=== PATIENT | female | born 1970 | race Caucasian/White ===

== ENCOUNTER → 2016-10-27 | Outpatient (REF) | payer OTHER ==
[~2016-10-27] MED LIST: /ADVA50050; /DULO30CA; /DULO30CA PO; /ESOM40CA; /GLIP10TAB; /INSULEV; /LINE60TA; /PANT40TA; /TAMS4CA; /ZOLP6ER; ABIL15TA; ABIL2TAB2 PO; ACTOS45 PO; ALBU17IN INH; ALBUTEROL INHALATION; ALPR1TAB3 PO; AMBI10TA; AMIT10TA2; AMIT25TA PO; AMIT25TA2; AMIT50TA PO; AMIT75TA PO; AMITRIP25 PO; AMITRIP50 PO; AMMO12CR4 TOP; ASPI1TAB PO; ASTELIN NASAL; ATEN100T PO; ATEN50TA2 PO; AVEL1TAB PO; BABY81CH; BABY81CH OR; BACITAB3 PO; BACT2CRE TOP; BACT800T5 PO; BENA20TA PO; BENA20TA2 PO; BENA25CA2 PO; BENA25TA4 PO; BENA40TA OR; BENA40TA2 PO; BETA1OI TOP; CAPSAICIN TOP; CARV25TA PO; CATAPRESS PO; CEFA1VL IV; CEFT1INJ65 IV; CEPH500C PO; CETI10TA PO; CHLO125TA PO; CLAR1TAB2 PO; CLIN300C2 PO; CLINDAMYCIN PO; COLA50CA PO; CORE12.5 PO; CORE25TA PO; COUGH SYRUP PO; COUM1TAB17 PO; COUM1TAB19 PO; COUM2.5T11 PO; COUM2TAB10 PO; CYMBALTA60 PO; DARV100T; DIAZ5TAB PO; DICL50TA2 PO; DICL50TAB PO; DICL5SOL TOP; DICY1CAP8 PO; DIFL200T PO; DILA2TAB; DIPH50CA PO; DULC5TAB PO; DULO1CAP2 PO; DULO1CAP3 PO; DULO30CA PO; ELMIRON; EPI SC; EPIP0.3I2 SC; ERYT PO; ESZO1TAB3 PO; FERR325T PO; FLOM5CAP PO; FLOMAX 0.4 PO; FLUC200T2 PO; FOCALIN XR OR; FURO1TAB15 PO; FURO20TA2 PO; FURO40TA2 PO; GARAMYCIN TOP; GEOD20CA14; GLUCOTRO10 PO; GLUCULTRA TOPICAL; HABITROL14 TOPICAL; HABITROL2 TOPICAL; HABITROL7 TOPICAL; HEPA100PFS IV; HEPA100SY IV; HEPA10IN19 IV; HUMA100I3 SC; HUMA50IN4 SC; HUMUINJ; HUMUINJ SQ; HUMULIN U; HUMULINR SC; HYDR25TA6 OR; HYDR25TAB PO; IMIT6INJ; IMIT6INJ SC; IMIT6KIT2 SC; IMMUN20IV2 IV; IMMUNOGLOBULIN IV; INSUHUMDS SC; INSULADS SC; INSULANT; INSULANT SC; INSULIN 70/30; INSULIN NPH; INSUR50VL SC; INVA1INJ IV; INVO100T PO; JANUVIA; JANUVIA100 PO; K-TA10TA PO; KEFL500C7 PO; KLON0.5T OR; KLONOPIN PO; KLOR1TAB77 PO; LAMI200T3 PO; LAMO10TA PO; LAMO200T PO; LANTUS SQ; LASI20TA; LASI20TA OR; LEVA1.25 INH; LEVA12INH INH; LEVA500T; LEVA750T PO; LEVO500T32 PO; LIDO1OIN2 TOP; LIDODERM TOPICAL; LISI20TA5; LISI5TAB; LISINOPR5 PO; LOMO2.5T PO; LOPE2TAB PO; LOPI600T; LOPID600 PO; LORTAB10 PO; LOTE1TAB PO; LOVE0.01 SC; LUNE1TAB9 PO; LUNE3TAB48 PO; LUNESTA PO; LYRI200C; LYRI300C; LYRI300C PO; LYRICA100 PO; LYRICA75 PO; MA; MACR100C3 PO; MAG-TAB; MAGIC MOUTHWASH; MAGN1TAB25 PO; MAGN400T PO; MECL-68 PO; MECL25CH PO; METH10TA2 PO; MOBIC15 PO; MONT10TA2 PO; NAPR250T2 PO; NEEDLEBB SC; NEUR100C PO; NEXIUM40 PO; NICO14DI3 TD; NICO21DI4; NIZORAL200 PO; NORT25CA2 PO; NORT50CA PO; NORT75CA2 PO; NOVOLIN N; NOVOLOG100 MG/ML; NYST100024 TOP; NYSTAT100 PO; OMEP40CA2 PO; OXYC10TA97 PO; OXYCO5TA PO; PAXI10TA; PAXI10TA2 PO; PAXI30TA; PAXI40TA; PAXI40TA OR; PERC10TA17 PO; PERC5TAB6 PO; PERC5TAB8 PO; PERCOCET PO; POTA20TA PO; POTA20TA2 OR; PRED20TAB PO; PREDNISONE DOSE PACK PO; PREG100CA; PRIL40CA; PRIL40CA PO; PROV90AE; QUET1TAB10 PO; QUET30TA PO; QUET30XR OR; RANI15TA PO; REFR0.5D8 OU; REGL5TAB2 PO; REQU4TAB3 OR; REQU4TAB3 PO; REQUIP1 PO; REQUIP2 PO; RISP4TAB33 PO; ROBA500T PO; ROZE8TAB9 PO; ROZEREM PO; SALI0.9I2 IV; SANT250O TOP; SENN8.6T76 PO; SENO8.6T10 PO; SERO1TAB2 PO; SERO400T; SERO400T OR; SERO400T3; SEROQUE200 PO; SING10TA32 PO; SKEL800T5; SLOWMAG PO; SLOWTAB; SOMA350T PO; SPACER -; SPIR25TA2 PO; SYMB80AE INH; SYMB80INH INH; TERB250T57 PO; TESS100C PO; TIGA300C; TIGAN PO; TOPA25TA10 PO; TOPI100T PO; TOPI25TA2 OR; TORS20TA2 PO; TOUJ1.2I SC; TRAM50TA2; TRAM50TA2 PO; TRAZ100T4 PO; TRAZ50TA4 PO; TRIL600T; TRIL600T PO; TYLE325T5 PO; TYLENOL #3; ULTR50TA PO; ULTRAM50 PO; VALI10TA PO; VALI5TAB PO; VALISONE TOP; VALT500T PO; VALTREX100 PO; VANC125C2 PO; VANC1INJ IV; VENTAER; VENTAER INH; VENTOLININ INHALATION; VIBR100C; VICO5TAB; VICO5TAB OR; VICTOZA SQ; WARF-58 PO; WARF4TAB52 PO; WELLTAB38 PO; WELLTAB4 PO; XANA0.5T; XANA1TAB2; XANA2TAB; XANA2TAB2; XANA2TAB2 OR; XARE20TA PO; XOPE1.252; XOPE1.252 INH; XOPENEX125 NEB; Z PACK PO; ZANA4TAB PO; ZIPR80CAP PO; ZOFR8TAB; ZOFR8TAB PO; ZYRT10TA2 PO; ZYVO100T PO; [UNRECOGNIZED DRUG - CODE] IV; [UNRECOGNIZED DRUG - CODE] SC; [UNRECOGNIZED DRUG - CODE] SC; [UNRECOGNIZED DRUG - CODE] SC; [UNRECOGNIZED DRUG - CODE] SL; [UNRECOGNIZED DRUG - OTHER]; [UNRECOGNIZED DRUG - OTHER]; [UNRECOGNIZED DRUG - OTHER]; [UNRECOGNIZED DRUG - OTHER] PO; [UNRECOGNIZED DRUG - OTHER] PO; [UNRECOGNIZED DRUG - OTHER] SC; benzapril PO; elavil; elmiron; omnicef PO; paxil; percocet
== END ==
LOC: M LAB REF 11:26
PROVIDERS: ATTEND Podiatrist
DX: E11.621 Type 2 diabetes mellitus with foot ulcer (principal); M14.672 Charcot's joint, left ankle and foot; L97.421 Non-pressure chronic ulcer of left heel and midfoot limited to breakdown of skin

== ENCOUNTER 2016-10-29 20:15 | Inpatient (IN) | payer OTHER ==
[~2016-10-29] VITALS: Ht 177.8 cm; Wt 130.4 kg
[~2016-10-29 20:15] MED LIST changes: -AMIT75TA PO; -ATEN100T PO; -CEPH500C PO; -CHLO125TA PO; -LOPE2TAB PO; +LOTE10TA11 PO; -LOTE1TAB PO; +OXYC-517 PO; -OXYCO5TA PO; -REGL5TAB2 PO; -SANT250O TOP; +SANT250O8 TOP; -TOPI100T PO; +TOPI1TAB31 PO; -TRAZ100T4 PO; +VANC10005 IV; -[UNRECOGNIZED DRUG - CODE] IV
[2016-10-29] MEDS ORDERED: HumaLOG INSULIN (NovoLOG) PER UNIT SC SCH (21:00)
[2016-10-29] MEDS: NYSTATIN 100,000 UNITS/GM TOPICAL PWD 15 GM TOP SCH (21:00)
[2016-10-29] MEDS: SYMBICORT 80/4.5MCG INHALER 6GM INH SCH (21:00)
[2016-10-29] MEDS: HUMALOG 200 UNIT/ML SQ SCH (21:00)
[2016-10-29 21:34] LABS: BASO % 0.3 % (0.0-1.0); EOS # 0.2 K/mm3 (0.0-0.50); EOS % 2.7 % (0.0-3.0); LARGE UNSTAINED CELL # 0.2 K/mm3 (0.0-0.4); LARGE UNSTAINED CELL % 3.2 % (0.0-4.0); LYMPH # 1.6 K/mm3 (1.5-4.5); LYMPH % 22.9 % (24.0-44.0); MEAN CORPUSCULAR HEMOGLOBIN 29.2 pg (27.0-33.0); MEAN CORPUSCULAR HGB CONC 34.3 g/dl (32.0-36.5); MEAN CORPUSCULAR VOLUME 85.1 fl (80.0-96.0); MONO # 0.4 K/mm3 (0.0-0.8); MONO % 5.1 % (0.0-5.0); NEUTROPHILS # 4.7 K/mm3 (1.8-7.7); NEUTROPHILS % 65.8 % (36.0-66.0); PLATELET COUNT, AUTOMATED 206 k/mm3 (150-450); RED CELL DISTRIBUTION WIDTH 14.1 % (11.5-14.5); WHITE BLOOD COUNT 7.1 K/mm3 (4.0-10.0)
[2016-10-29 21:35] LABS: INR 1.32
[2016-10-29] MEDS ORDERED: HumuLIN R (REGULAR) INSULIN (NovoLIN R) **100U/ML** PER UNIT As Ordered ONE (21:41)
[2016-10-29 21:42] LABS: CALCIUM LEVEL 8.5 MG/DL (8.5-10.1); CREATININE FOR GFR 1.1 MG/DL (0.55-1.02); GLOMERULAR FILTRATION RATE 56.7 (>58); POTASSIUM SERUM 4.2 MEQ/L (3.5-5.1)
[2016-10-29] MEDS ORDERED: HYDROmorphone HCL 1 MG/ML SYRINGE (J1170) As Ordered ONE (21:42)
[2016-10-29] MEDS ORDERED: cefoTEtan DISODIUM 2 GM in D5W MINI-BAG PLUS 100 ML IV SCH (22:15)
--- NOTE | 2016-10-29 22:30 | REPUSA ---
Clinical history: Pain, swelling. Findings: The left common femoral, superficial femoral, popliteal, and other deep venous structures c ompress normally and demonstrate normal color Doppler flow. Normal venous waveforms with augmentation are seen. There is a large left inguinal lymph node measuring up to 4.2 x 4.4 x 1.2 cm in diameter, of uncertain clinical significance. Impression: No evidence of deep vein thrombosis in the left femoral popliteal venous system.
[2016-10-29] MEDS ORDERED: CHLO125TA PO (22:42)
[2016-10-29] MEDS ORDERED: CEPH500C PO (22:42)
[2016-10-29] MEDS ORDERED: REGL5TAB2 PO (22:42)
[2016-10-29] MEDS ORDERED: LOPE2TAB PO (22:42)
[2016-10-29] MEDS ORDERED: TRAZ100T4 PO (22:42)
[2016-10-29] MEDS ORDERED: AMIT75TA PO (22:42)
[2016-10-29] MEDS ORDERED: ATEN100T PO (22:42)
[2016-10-29] MEDS ORDERED: ALBUTEROL SULFATE 2.5 MG/0.5 ML INH NEB SOLN NEB PRN (22:45)
[2016-10-29] MEDS ORDERED: LOPERAMIDE 2 MG CAP PO PRN (22:45)
[2016-10-29] MEDS ORDERED: ALPRAZolam 0.5 MG TAB PO PRN (22:45)
[2016-10-29] MEDS ORDERED: GLUCOSE 4 GM CHEW TABLET PO PRN (22:45)
[2016-10-29] MEDS ORDERED: BISACODYL 5 MG TAB PO PRN (22:45)
[2016-10-29] MEDS ORDERED: GLUCAGON FOR INJ 1 MG VIAL (J1610) SC PRN (22:45)
[2016-10-29] MEDS ORDERED: DEXTROSE 50% 50 ML SYRINGE IV PRN (22:45)
[2016-10-30] MEDS ORDERED: oxyCODONE 5MG TAB PO PRN (00:15)
[2016-10-30] MEDS ORDERED: KETOROLAC 30 MG/ML VIAL (J1885) IV PRN (00:15)
[2016-10-30] MEDS ORDERED: oxyCODONE 5MG TAB As Ordered ONE (00:32)
[2016-10-30 00:45] VITALS: BP 172/81
--- NOTE | 2016-10-30 00:49 | EDDOCDS ---
Physician Documentation [facility] Name: Rbeeca Soliz Age: 46 yrs Sex: Female : 1970 Arrival Date: 10/29/2016 Time: 20:15 Bed 9 Private MD: Zion Pastrana D Disposition: 10/29/16 21:58 Hospitalization ordered by Ashwini Acevedo for Inpatient Admission. Preliminary diagnosis are Cellulitis of left lower limb, Hyperglycemia, unspecified. - Bed requested for 4 [place]. - Status is Inpatient Admission. jp6 - Condition is Stable. - Problem is an ongoing problem. - Symptoms are unchanged. Historical: - Allergies: Glucophage (Vomit); Latex (Anaphylaxis); PENICILLINS (Anaphylaxis); Pineapple; SULFA (SULFONAMIDES) (Rash); Tricor (Vomit); - Home Meds: 1. albuterol sulfate 90 mcg/actuation Inhl HFAA 2 puffs as needed 2. amitriptyline 50 mg Oral tab HS 3. Reglan 5 mg Oral tab TID AC 4. loperamide 2 mg Oral cap every 4 hours 5. atenolol 50 mg Oral tab 1 tab 2 times per day 6. benazepril 40 mg oral tab 1 tab once daily 7. Chlorthalidone 12.5 Oral once daily 8. Coumadin 1.5 Oral tab 1 tab once daily 9. Cymbalta 60 mg Oral cpDR 1 cap am and 30 mg at HS 10. epipen .3 mg as needed 11. Humalog 200 sliding scale before meals 50 at meals 12. Lasix 40 mg Oral tab twice daily as needed 13. Lunesta 3 mg Oral tab 1 tab once daily 14. Lyrica 300MG Oral 1 cap 2 times per day 15. nystatin 100,000 unit/gram Topical powd 100,000 unit/g 3 times per day 16. omeprazole 40 mg Oral cpDR 1 cap 2 times per day 17. potassium chloride 20 mEq Oral TbTQ 1 tab 2 times per day 18. Requip 4 mg Oral tab 1 tab HS 19. Seroquel 600 mg Oral HS 20. spironolactone 25 mg Oral tab 1 tab once daily 21. symbicort 80/4.5mcg twice a day 22. Toujeo SoloStar 125 in am. 100 at hs subcutaneous 23. Triliptal 400mg BID 24. Xanax 1 mg Oral tab 1 tab QID prn 25. Xopenex 1.25 mg/3 mL Inhl nebu 3 mL every 6 hours 26. Zantac 150 mg Oral tab 1 tab once daily - PMHx: 2 Blood clots in left upper arm while PICC line was in; Abdominal Adhesions; Anxiety; Arthritis; Asthma; Bilateral TMJ; Bipolar disorder; Bulging Disc Thoracic-Lumbar; cellulitis; Common Variable Immune Deficiency; DDD; Diabetes - IDDM: controlled; DVT; Endometriosis; Fibromyalgia; GERD; Herniated Vertebral Discs; Hiatal Hernia; Hypertension; insomnia; Migraines; MRSA; OCD; pleural effusions; Psoriasis; Seasonal Allergies; Skin Neuritis; Spina Bifida Aculta; Temporal Lobe Seizures; ventricular hypertrophy; - PSHx: Cholecystectomy; Appendectomy; Hysterectomy; cervical c5-6 fusion; bilateral TMJ surgery; - Social history: No barriers to communication noted, The patient speaks fluent Chinese, Speaks appropriately for age, Smoking status: Patient states former smoker of tobacco. - Family history: Not pertinent. - : The pt / caregiver states he / she is on anticoagulants: coumadin. Home medication list is obtained from the patient. - Exposure Risk Screening:: None identified. MANAGER CORE: 10/29 20:24 LMP N/A - Hysterectomy jo3 Vital Signs: 20:17 BP 204 / 109; Pulse 122; Resp 18 S; Temp 97.5; Pulse Ox 96% on R/A; Weight 122.47 kg / dd6 270 lbs (R); Height 5 ft. 10 in. (177.80 cm) (R); 23:10 BP 148 / 81; Pulse 93; Resp 18; Temp 99.4; Pulse Ox 98% on R/A; Pain 7/10; jp6 10/30 00:36 BP 142 / 81; Pulse 92; Resp 16; Pulse Ox 99% on R/A; Pain 6/10; jp6 10/29 20:17 Body Mass Index 38.74 (122.47 kg, 177.80 cm) dd6 MDM: 10/29 21:17 Fingerstick Blood Sugar Ordered. EDMS 21:25 -Blood Culture (Adults Only), peripheral from different site, or from device/port/PICC cs11 etc. if present ordered. 21:25 IV Saline Lock ordered. cs11 21:25 Dilaudid - HYDROmorphone 0.5 mg IVP once ordered. cs11 21:25 CBC with Diff Ordered. EDMS 21:25 MED Profile Ordered. EDMS 21:25 Pt & Aptt Ordered. EDMS 21:26 -Blood Culture Ordered. EDMS 21:26 Ultrasound LE Unilateral R/O DVT Ordered. EDMS 21:27 Financial registration complete. zo 21:28 [facility] [place] Payment Agreement was scanned into [employer] and attached to record. zo 21:29 -Blood Culture (Adults Only), peripheral from different site, or from device/port/PICC tmm1 etc. if present complete. 21:29 BLOOD CULTURES Ordered. EDMS 21:33 cefoTEtan 2 grams IVPB once over 30 mins; dilute in NS or D5W ordered. cs11 21:34 Fingerstick Blood Sugar Reviewed. cs11 21:35 Insulin Regular Human 20 units IVP once ordered. cs11 21:35 Accucheck ordered. cs11 22:00 BED REQUEST+ADM ordered. EDMS 22:12 CBC with Diff Reviewed. cs11 22:12 MED Profile Reviewed. cs11 22:12 Pt & Aptt Reviewed. cs11 22:25 Fingerstick Blood Sugar Ordered. EDMS 22:44 C REACTIVE PROTEIN QUANTITATIV Ordered. EDMS 22:44 CBC WITH DIFFERENTIAL Ordered. EDMS 22:44 BASIC METABOLIC PROFILE Ordered. EDMS 22:47 Admission / Observation Status ordered. EDMS 22:47 CONSISTENT CARBOHYDRATES ordered. EDMS 22:58 Fingerstick Blood Sugar Ordered. EDMS 23:23 PROTHROMBIN TIME PROFILE\E\INR Ordered. EDMS 10/30 00:48 oxyCODONE 5 mg PO once ordered. jp6 Point of Care Testing: Blood Glucose: 10/29 20:45 Blood Glucose: 525 mg/dL; jp6 22:20 Blood Glucose: 382 mg/dL; jp6 Ranges: Administered Medications: 22:00 Drug: Insulin Regular Human 20 units [insulin regular human 100 unit/mL injection jp6 solution (0.2 mL)] {Co-Signature: ines2 (Lillie Nolasco RN).} Route: IVP; Site: right upper arm; 22:02 Drug: Dilaudid - HYDROmorphone 0.5 mg [hydromorphone 1 mg/mL injection syringe (0.5 jp6 mL)] Route: IVP; Site: right upper arm; 22:28 Drug: cefoTEtan 2 grams [cefotetan 2 gram solution for injection] Route: IVPB; Infused jp6 Over: 30 mins; Site: right upper arm; 10/30 00:48 Drug: oxyCODONE 5 mg [oxycodone 5 mg tablet (1 tabs)] Route: PO; jp6 Signatures: Dispatcher [employer] Debbie Jeffrey RN RN Marguerite SanchezRN RN jo3 Fransisco Roa Craig, DO DO cs11 McLear, Isa, ELEVATOR SERVICE MECHANIC ELEVATOR SERVICE MECHANIC tmm1 Park Ramírez RN RN jp6 Lillie Nolasco RN kas2 The chart was reviewed and I authenticate all verbal orders and agree with the evaluation and treatment provided.Attachments: 10/29 21:28 [facility] Payment Agreement zo MTDD
--- NOTE | 2016-10-30 00:49 | EDDOCDS ---
Nurse's Notes [facility] Name: Rebeca Soliz Age: 46 yrs Sex: Female : 1970 Arrival Date: 10/29/2016 Time: 20:15 Bed 9 Private MD: Zion Pastrana D Diagnosis: Cellulitis of left lower limb;Hyperglycemia, unspecified Presentation: 10/29 20:19 Presenting complaint: Patient states: Has a diabetic ulcer on left foot. Been on low jo3 dose antibiotics (Keflex) for 3 days. Now is getting cellulitis around the area with some swelling. Adult Sepsis Screening: The patient does not have new or worsening altered mentation. Patient's respiratory rate is less than 22. Systolic blood pressure is greater than 100. Patient has a qSOFA score of 0- Negative Sepsis Screen. Suicide/Homicide risk assessment- the patient denies having any suicidal and/or homicidal ideations and does not present with any other emotional, behavioral or mental health complaints. 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 Transition of care: patient was not received from another setting of care. 20:19 Acuity: CINDY Level 3 jo3 20:19 Method Of Arrival: Walkin/Carried/Asstd jo3 Triage Assessment: 20:24 General: Appears in no apparent distress. HIV screening NA for this visit Offered jo3 previously. Neurological: Level of Consciousness is awake, alert, Oriented to person, place, time. Respiratory: Airway is patent Respiratory effort is even, unlabored. Derm: Skin is pink, warm & dry. 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 albuterol sulfate 90 mcg/actuation Inhl HFAA 2 puffs as needed 2. amitriptyline 50 mg Oral tab HS 3. Reglan 5 mg Oral tab TID AC 4. loperamide 2 mg Oral cap every 4 hours 5. atenolol 50 mg Oral tab 1 tab 2 times per day 6. benazepril 40 mg oral tab 1 tab once daily 7. Chlorthalidone 12.5 Oral once daily 8. Coumadin 1.5 Oral tab 1 tab once daily 9. Cymbalta 60 mg Oral cpDR 1 cap am and 30 mg at HS 10. epipen .3 mg as needed 11. Humalog 200 sliding scale before meals 50 at meals 12. Lasix 40 mg Oral tab twice daily as needed 13. Lunesta 3 mg Oral tab 1 tab once daily 14. Lyrica 300MG Oral 1 cap 2 times per day 15. nystatin 100,000 unit/gram Topical powd 100,000 unit/g 3 times per day 16. omeprazole 40 mg Oral cpDR 1 cap 2 times per day 17. potassium chloride 20 mEq Oral TbTQ 1 tab 2 times per day 18. Requip 4 mg Oral tab 1 tab HS 19. Seroquel 600 mg Oral HS 20. spironolactone 25 mg Oral tab 1 tab once daily 21. symbicort 80/4.5mcg twice a day 22. Toujeo SoloStar 125 in am. 100 at hs subcutaneous 23. Triliptal 400mg BID 24. Xanax 1 mg Oral tab 1 tab QID prn 25. Xopenex 1.25 mg/3 mL Inhl nebu 3 mL every 6 hours 26. Zantac 150 mg Oral tab 1 tab once daily - PMHx: 2 Blood clots in left upper arm while PICC line was in; Abdominal Adhesions; Anxiety; Arthritis; Asthma; Bilateral TMJ; Bipolar disorder; Bulging Disc Thoracic-Lumbar; cellulitis; Common Variable Immune Deficiency; DDD; Diabetes - IDDM: controlled; DVT; Endometriosis; Fibromyalgia; GERD; Herniated Vertebral Discs; Hiatal Hernia; Hypertension; insomnia; Migraines; MRSA; OCD; pleural effusions; Psoriasis; Seasonal Allergies; Skin Neuritis; Spina Bifida Aculta; Temporal Lobe Seizures; ventricular hypertrophy; - PSHx: Cholecystectomy; Appendectomy; Hysterectomy; cervical c5-6 fusion; bilateral TMJ surgery; - Social history: No barriers to communication noted, The patient speaks fluent Luxembourgish, Speaks appropriately for age, Smoking status: Patient states former smoker of tobacco. - Family history: Not pertinent. - : The pt / caregiver states he / she is on anticoagulants: coumadin. Home medication list is obtained from the patient. - Exposure Risk Screening:: None identified. Screenin:30 Screening information is obtained from the patient. Fall risk: At risk due to jp6 neuropathy. Assistance ADL's: requires no assistance with activities of daily living. Abuse/DV Screen: The patient / caregiver reports he/she is: not in a situation that causes fear, pain or injury. Nutritional screening: No deficits noted. Advance Directives: Currently, there is a health care proxy, . There is no active DNR order. There is no living will. home support is adequate. Assessment: 20:30 General: Appears obese, uncomfortable, Behavior is appropriate for age, cooperative, jp6 pleasant. Pain: Location: left foot Pain currently is 6 out of 10 on a pain scale. Pain radiates to left leg Quality of pain is described as burning, aching, crampy. Neurological: Tingling in right foot and left foot. EENT: No deficits noted. Cardiovascular: No deficits noted. Heart tones S1 S2 present. Respiratory: No deficits noted. Airway is patent Respiratory effort is even, unlabored, Respiratory pattern is regular, symmetrical, Breath sounds are clear bilaterally. GI: No deficits noted. Abdomen is distended, obese. : No deficits noted. Derm: Skin has blisters on open old blister left bottom of foot-redness surrounding w/ red streak going up left leg. Swelling noted in foot and up left leg. Musculoskeletal: No deficits noted. 21:30 Reassessment: Patient appears in no apparent distress at this time. General: Appears jp6 uncomfortable, Behavior is appropriate for age, cooperative. Neurological: Level of Consciousness is awake, alert. Respiratory: Airway is patent Respiratory effort is even, Respiratory pattern is regular, symmetrical. Musculoskeletal: No deficits noted. 22:23 Reassessment: Patient appears in no apparent distress at this time. Neurological: Level jp6 of Consciousness is awake, alert, Oriented to person, place, time. Respiratory: Airway is patent Respiratory effort is even, unlabored, Respiratory pattern is regular, symmetrical. Derm: Skin Skin is pink, warm & dry. 23:10 Reassessment: Patient appears in no apparent distress at this time. General: Appears jp6 comfortable. Neurological: Level of Consciousness is awake, alert. Respiratory: Airway is patent Respiratory effort is even, unlabored, Respiratory pattern is regular, symmetrical. Musculoskeletal: Reports pain in left foot and left leg. 10/30 00:09 Reassessment: Patient appears in no apparent distress at this time. Patient states jp6 symptoms have not improved. General: Behavior is appropriate for age, cooperative. Pain: Location: left foot Pain currently is 7 out of 10 on a pain scale. Neurological: Level of Consciousness is awake, alert, Oriented to person, place, time. Musculoskeletal: Reports Pain is 7 out of 10 on a pain scale. no order for pain medication-call in to hospitalist for order. Vital Signs: 10/29 20:17 BP 204 / 109; Pulse 122; Resp 18 S; Temp 97.5; Pulse Ox 96% on R/A; Weight 122.47 kg dd6 (R); Height 5 ft. 10 in. (177.80 cm) (R); 23:10 BP 148 / 81; Pulse 93; Resp 18; Temp 99.4; Pulse Ox 98% on R/A; Pain 7/10; jp6 10/30 00:36 BP 142 / 81; Pulse 92; Resp 16; Pulse Ox 99% on R/A; Pain 6/10; jp6 10/29 20:17 Body Mass Index 38.74 (122.47 kg, 177.80 cm) dd6 Vitals: 10/29 20:17 Log In Time: October 29, 2016 at 20:15. dd6 ED Course: 20:17 Patient visited by Milad Lucio PCA. dd6 20:17 Zion Pastrana is Private Physician. dd6 20:17 Patient moved to Waiting dd6 20:18 Patient moved to Pre RCE dd6 20:21 Triage Initiated jo3 20:26 Patient visited by Marguerite Jeter,QI. jo3 20:28 Jakob Contreras, RN is Primary Nurse. jo3 20:28 Patient moved to 9 jo3 20:29 Patient visited by Lillie Nolasco RN. kas2 20:30 The patient / caregiver is instructed regarding the plan of care and ED course. jp6 20:30 Inserted saline lock: 20 gauge in right upper arm. No procedures done that require jp6 assistance. 20:32 Primary Nurse role handed off by Jakob Contreras, RN jp6 20:32 Park Ramírez,QI is Primary Nurse. jp6 20:44 Jose Eduardo Hernandez DO is Attending Physician. cs11 20:44 Patient visited by Jose Eduardo Hernandez DO. cs11 21:28 [facility] [place] Payment Agreement was scanned into [employer] and attached to record. zo 21:42 BLOOD CULTURES Sent. kas2 21:45 Patient visited by Lillie Nolasco RN. kas2 21:45 Labs drawn. (by ED staff). Sent per order to lab. kas2 21:58 Ashwini Acevedo is Hospitalizing Provider. cs11 23:00 Ultrasound LE Unilateral R/O DVT Returned. EDMS Administered Medications: 22:00 Drug: Insulin Regular Human 20 units [insulin regular human 100 unit/mL injection jp6 solution (0.2 mL)] {Co-Signature: ines2 (Lillie Nolasco RN).} Route: IVP; Site: right upper arm; 22:02 Drug: Dilaudid - HYDROmorphone 0.5 mg [hydromorphone 1 mg/mL injection syringe (0.5 jp6 mL)] Route: IVP; Site: right upper arm; 22:28 Drug: cefoTEtan 2 grams [cefotetan 2 gram solution for injection] Route: IVPB; Infused jp6 Over: 30 mins; Site: right upper arm; 10/30 00:48 Drug: oxyCODONE 5 mg [oxycodone 5 mg tablet (1 tabs)] Route: PO; jp6 Point of Care Testing: Blood Glucose: 10/29 20:45 Blood Glucose: 525 mg/dL; jp6 22:20 Blood Glucose: 382 mg/dL; jp6 Ranges: Order Results: Lab Order: Fingerstick Blood Sugar; SPEC'M 10/29/16 21:08 Test: BEDSIDE GLUCOSE; Value: 520; Range: 70-105; Abnormal: Above upper panic limits; Units: MG/DL; Status: F Test Note: ; RN Notified Lab Order: CBC with Diff; SPEC'M 10/29/16 21:05 Test: WHITE BLOOD COUNT; Value: 7.1; Range: 4.0-10.0; Units: K/mm3; Status: F Test: RED BLOOD COUNT; Value: 4.18; Range: 4.00-5.40; Units: M/mm3; Status: F Test: HEMOGLOBIN; Value: 12.2; Range: 12.0-16.0; Units: g/dl; Status: F Test: HEMATOCRIT; Value: 35.6; Range: 36.0-47.0; Abnormal: Below low normal; Units: %; Status: F Test: MEAN CORPUSCULAR VOLUME; Value: 85.1; Range: 80.0-96.0; Units: fl; Status: F Test: MEAN CORPUSCULAR HEMOGLOBIN; Value: 29.2; Range: 27.0-33.0; Units: pg; Status: F Test: MEAN CORPUSCULAR HGB CONC; Value: 34.3; Range: 32.0-36.5; Units: g/dl; Status: F Test: RED CELL DISTRIBUTION WIDTH; Value: 14.1; Range: 11.5-14.5; Units: %; Status: F Test: PLATELET COUNT, AUTOMATED; Value: 206; Range: 150-450; Units: k/mm3; Status: F Test: NEUTROPHILS %; Value: 65.8; Range: 36.0-66.0; Units: %; Status: F Test: LYMPH %; Value: 22.9; Range: 24.0-44.0; Abnormal: Below low normal; Units: %; Status: F Test: MONO %; Value: 5.1; Range: 0.0-5.0; Abnormal: Above high normal; Units: %; Status: F Test: EOS %; Value: 2.7; Range: 0.0-3.0; Units: %; Status: F Test: BASO %; Value: 0.3; Range: 0.0-1.0; Units: %; Status: F Test: LARGE UNSTAINED CELL %; Value: 3.2; Range: 0.0-4.0; Units: %; Status: F Test: NEUTROPHILS #; Value: 4.7; Range: 1.8-7.7; Units: K/mm3; Status: F Test: LYMPH #; Value: 1.6; Range: 1.5-4.5; Units: K/mm3; Status: F Test: MONO #; Value: 0.4; Range: 0.0-0.8; Units: K/mm3; Status: F Test: EOS #; Value: 0.2; Range: 0.0-0.50; Units: K/mm3; Status: F Test: BASO #; Value: 0.0; Range: 0.0-0.2; Units: K/mm3; Status: F Test: LARGE UNSTAINED CELL #; Value: 0.2; Range: 0.0-0.4; Units: K/mm3; Status: F Lab Order: MED Profile; SPEC'M 10/29/16 21:05 Test: GLUCOSE, FASTING; Value: 565; Range: 70-105; Abnormal: Above upper panic limits; Units: MG/DL; Status: F Test: BLOOD UREA NITROGEN; Value: 12; Range: 7-18; Units: MG/DL; Status: F Test: CREATININE FOR GFR; Value: 1.10; Range: 0.55-1.02; Abnormal: Above high normal; Units: MG/DL; Status: F Test: GLOMERULAR FILTRATION RATE; Value: 56.7; Range: >58; Abnormal: Below low normal; Status: F Test: SODIUM LEVEL; Value: 133; Range: 136-145; Abnormal: Below low normal; Units: MEQ/L; Status: F Test: POTASSIUM SERUM; Value: 4.2; Range: 3.5-5.1; Units: MEQ/L; Status: F Test: CHLORIDE LEVEL; Value: 95; Range: 98-107; Abnormal: Below low normal; Units: MEQ/L; Status: F Test: CARBON DIOXIDE LEVEL; Value: 31; Range: 21-32; Units: MEQ/L; Status: F Test: ANION GAP; Value: 7; Range: 8-16; Abnormal: Below low normal; Units: MEQ/L; Status: F Test: CALCIUM LEVEL; Value: 8.5; Range: 8.5-10.1; Units: MG/DL; Status: F Test Note: ; Units are mL/min/1.73 m2 Chronic Kidney Disease Staging per NKF: Stage I & II GFR >=60 Normal to Mildly Decreased Stage III GFR 30-59 Moderately Decreased Stage IV GFR 15-29 Severely Decreased Stage V GFR <15 Very Little GFR Left ESRD GFR <15 on TRAFFIC PERSONNEL SUPERVISOR Lab Order: Pt & Aptt; SPEC'M 10/29/16 21:05 Test: PROTHROMBIN TIME; Value: 16.5; Range: 12.3-14.5; Abnormal: Above high normal; Units: SECONDS; Status: F Test: INR; Value: 1.32; Status: F Test: PARTIAL THROMBOPLASTIN TIME; Value: 33.9; Range: 26.6-37.1; Units: SECONDS; Status: F Test Note: ; THERAPUTIC HUMAN INR VALUES INDICATIONS NORMAL RANGES PROPHYLAXIS/TREATMENT OF: VENOUS THROMBOSIS 2.0-3.0 PULMONARY EMBOLISM 2.0-3.0 PREVENTION OF SYSTEMIC EMBOLISM FROM: TISSUE HEART VALVES 2.0-3.0 ACUTE MYOCARDIAL INFARCTION 2.0-3.0 VALVULAR HEART DISEASE 2.0-3.0 ATRIAL FIBRILLATION 2.0-3.0 MECHANICAL VALVES(HIGH RISK) 2.5-3.5 RECURRENT MYOCARDIAL INFARCTION 2.5-3.5 Lab Order: Fingerstick Blood Sugar; SPEC'10/29/16 22:18 Test: BEDSIDE GLUCOSE; Value: 382; Range: 70-105; Abnormal: Above high normal; Units: MG/DL; Status: F Test Note: ; RN Notified Lab Order: Fingerstick Blood Sugar; SPEC'10/29/16 22:50 Test: BEDSIDE GLUCOSE; Value: 248; Range: 70-105; Abnormal: Above high normal; Units: MG/DL; Status: F Test Note: ; RN Notified Radiology Order: Ultrasound LE Unilateral R/O DVT Test: Ultrasound LE Unilateral R/O DVT REASON FOR EXAMINATION: Deformity/Swelling; ; Clinical history: Pain, swelling.; Findings: The left common femoral, superficial femoral, popliteal, and other deep venous structures c; ompress normally and demonstrate normal color Doppler flow. Normal venous waveforms with augmentation; are seen. There is a large left inguinal lymph node measuring up to 4.2 x 4.4 x 1.2 cm in diameter,; of uncertain clinical significance.; Impression:; No evidence of deep vein thrombosis in the left femoral popliteal venous system.; ; Outcome: 21:58 Decision to Hospitalize by Provider. cs11 23:42 Discharge Assessment: Patient awake, alert and oriented x 3. No cognitive and/or jp6 functional deficits noted. Patient verbalized understanding of disposition instructions. patient administered narcotics - yes. Patient was admitted to the hospital or transferred to another facility. The following High Risk Discharge criteria are identified: None. Admitted to Med/Surg accompanied by tech, via stretcher, with chart. Condition: unchanged. Ultrasound Study completed. Admission hand-off: Report Faxed Fax receipt verified by 4 marlen. Property :Personal belongings accompany Pt. 10/30 00:48 Patient left the ED. jp6 Signatures: Dispatcher [employer] EDMS Marguerite Jeter,RN RN jo3 Fransisco Roa Daniell, AVA POLICY WRITER dd6 Jose Eduardo Hernandez, DO cs11 Lillie Nolasco RN RN kas2 Park Ramírez RN RN jp6 Lillie chacon2 MTDD
[2016-10-30] MEDS ORDERED: WARFARIN SOD 5 MG TAB PO SCH (01:00)
[2016-10-30] MEDS: PREGABALIN 100 MG CAP (LYRICA) PO SCH ×3 (01:58→21:50)
[2016-10-30] MEDS: rOPINIRole 1MG TAB PO SCH ×2 (01:58→22:25)
[2016-10-30] MEDS: AMITRIPTYLINE 25 MG TAB PO SCH ×2 (01:59→21:51)
[2016-10-30] MEDS: MONTELUKAST 10 MG TAB PO SCH ×2 (01:59→21:50)
[2016-10-30] MEDS: OMEPRAZOLE 20 MG CAP PO SCH ×3 (01:59→21:51)
[2016-10-30] MEDS: DULoxetine 30 MG CAP (CYMBALTA) PO SCH ×3 (01:59→21:51)
[2016-10-30] MEDS: ATENOLOL 50 MG TAB PO SCH ×3 (02:00→21:00)
[2016-10-30] MEDS: traZODone 100 MG TAB PO SCH ×2 (02:00→21:50)
[2016-10-30] MEDS: FAMOTIDINE 20 MG TAB PO SCH ×2 (02:00→21:51)
[2016-10-30] MEDS: OXcarbazepine 300 MG TAB PO SCH ×2 (02:01→21:50)
[2016-10-30] MEDS: QUEtiapine FUMARATE 200 MG TAB PO SCH ×2 (02:01→21:50)
[2016-10-30 03:30] VITALS: BP 106/56
[2016-10-30 06:00] VITALS: BP 104/64
[2016-10-30 06:50] LABS: BASO % 0.2 % (0.0-1.0); EOS # 0.1 K/mm3 (0.0-0.50); EOS % 2.2 % (0.0-3.0); LARGE UNSTAINED CELL # 0.1 K/mm3 (0.0-0.4); LARGE UNSTAINED CELL % 2.2 % (0.0-4.0); LYMPH # 1.3 K/mm3 (1.5-4.5); LYMPH % 20.7 % (24.0-44.0); MEAN CORPUSCULAR HEMOGLOBIN 29.6 pg (27.0-33.0); MEAN CORPUSCULAR HGB CONC 35.4 g/dl (32.0-36.5); MEAN CORPUSCULAR VOLUME 83.5 fl (80.0-96.0); MONO # 0.3 K/mm3 (0.0-0.8); MONO % 5.4 % (0.0-5.0); NEUTROPHILS # 4.2 K/mm3 (1.8-7.7); NEUTROPHILS % 69.3 % (36.0-66.0); PLATELET COUNT, AUTOMATED 199 k/mm3 (150-450); RED CELL DISTRIBUTION WIDTH 14.2 % (11.5-14.5)
[2016-10-30 07:00] LABS: INR 1.35
[2016-10-30 07:16] LABS: CALCIUM LEVEL 8.2 MG/DL (8.5-10.1); CREATININE FOR GFR 1.45 MG/DL (0.55-1.02); GLOMERULAR FILTRATION RATE 41.2 (>58); POTASSIUM SERUM 3.8 MEQ/L (3.5-5.1)
[2016-10-30] MEDS ORDERED: HumaLOG INSULIN (NovoLOG) PER UNIT SC SCH (07:30)
[2016-10-30 08:00] VITALS: BP 117/70
[2016-10-30] MEDS: IPRATROPIUM 0.5MG/ALBUTEROL 2.5MG INH SOL UD 3ML (DUONEB)(J7620) NEB SCH ×4 (08:00→23:11)
[2016-10-30] MEDS: METOCLOPRAMIDE 5 MG TAB PO SCH ×3 (08:33→21:50)
[2016-10-30] MEDS: cefoTEtan DISODIUM 1 GM in D5W MINI-BAG PLUS 50 ML IV SCH ×2 (08:33→21:52)
[2016-10-30] MEDS: SENOKOT S TAB PO SCH ×2 (08:33→21:51)
[2016-10-30] MEDS: HUMALOG 200 UNIT/ML SQ SCH ×3 (08:35→17:57)
--- NOTE | 2016-10-30 08:37 | HPE ---
DATE OF ADMISSION: 10/29/2016 PRIMARY CARE PROVIDER: Dr. Zion Pastrana CHIEF COMPLAINT: Increasing pain, redness and swelling of the left foot and leg, increasing size of the ulcer at the bottom of the left foot. One episode of temperature 101 two days ago. PAST MEDICAL HISTORY: Diabetes. Hypertension. Dyslipidemia. History of deep vein thrombosis (DVT), on Coumadin. Morbid obesity. Asthma. Chronic obstructive pulmonary disease (COPD). Obstructive sleep apnea (PA), does not use continuous positive airway pressure (CPAP). Diabetic neuropathy. Restless leg syndrome. Gastroesophageal reflux disease (GERD). Possible Crohn's disease, still being worked up. Fibromyalgia. Charcot signs of the foot. Lumbar spondylosis and central canal stenosis. Bipolar disorder. Obsessive-compulsive disorder. Agoraphobia. Anxiety. Spina bifida occulta. Psoriasis. Temporal lobe seizures. Hiatal hernia. Fatty liver. Factor V Leiden with history of DVT, on Coumadin. HISTORY OF THE PRESENT ILLNESS: This is a 46-year-old poorly controlled diabetic lady with a diabetic neuropathy, Charcot's joints, who was being changed from one orthopedic boot to a different kind and developed a blister on the plantar aspect of the left foot about 9 days ago after she wore the new kind of fitted boot and the roof of the blister had spontaneously burst open. The patient was seen by the patient's net developer software engineer c 2 days ago and antibiotic was prescribed. The patient has been taking Keflex at home. The patient also had a bout of temperature of 101 two days ago after that which resolved with Tylenol and no further episodes of fever. Comes in today because of increasing left foot redness, swelling and pain with redness extending up the leg, up to almost the middle of the leg. The patient called her net developer software engineer c and was instructed to come to the emergency room. In the emergency department (ED), the patient was found to have diabetic foot ulcer and cellulitis. The patient was started on cefotetan. The patient had an ultrasound of the lower extremity done, which did not show any DVT but did show a large inguinal lymph node 4 cm x 4.4 cm x 1.2 cm in the left inguinal region. The patient is being admitted for a diabetic foot ulcer, cellulitis. PAST SURGICAL HISTORY: Cholecystectomy in 1995. Cervical discectomy with fusion in 1994. Hysterectomy. Lumpectomy of the right breast in 2003. Appendectomy in 2008. Port-a-Cath times two. History of stool transplant. Ulnar release of the right arm and hand. Skin lesions removed in 2004. Multiple diagnostic laparoscopies. Bilateral temporomandibular joint surgery. ALLERGIES: LATEX, PENICILLIN causes anaphylaxis, SULFA causes hives, TRICOR causes hives, GLUCOPHAGE causes hives, LIPITOR causes hives, ZOCOR causes hives, FRESH PINEAPPLE causes swollen lips and sores in the mouth. HOME MEDICATIONS: - albuterol two puffs inhalation every 4 hours as needed - alprazolam 1 mg by mouth four times a day as needed for anxiety - amitriptyline 75 mg at bedtime - atenolol 100 mg by mouth twice a day - benazepril 40 mg by mouth daily - cephalexin 500 mg by mouth twice a day - chlorthalidone 12.5 mg by mouth daily - duloxetine 90 mg daily - eszopiclone 3 mg at bedtime - Lasix 40 mg by mouth twice a day as needed for edema - Humalog 200 units per mL as per sliding scale - loperamide 2 mg by mouth every 4 hours as needed for diarrhea - Reglan 5 mg by mouth three times a day - montelukast 10 mg at bedtime - Nystatin powder under the breasts and abdominal folds topically three times a day - omeprazole 40 mg by mouth twice a day - Trileptal 600 mg by mouth at bedtime - Lyrica 300 mg by mouth twice a day - Seroquel 600 mg at bedtime - [id number] mg one tablet at bedtime - ropinirole 4 mg at bedtime - spironolactone 25 mg at bedtime - Toujeo insulin 125 units in the morning and 100 units at bedtime - trazodone 100 mg at bedtime - warfarin 1.5 mg by mouth daily FAMILY HISTORY: Nothing significant. SOCIAL HISTORY: She is a former smoker, quit about 3 months. Does not abuse alcohol or recreational drugs. REVIEW OF SYSTEMS: All 10-point review of systems are negative except those mentioned in the history of the present illness (HPI). PHYSICAL EXAMINATION: The patient is awake, alert, oriented times three, sitting up in bed in no acute distress. VITAL SIGNS: Blood pressure 204/109, pulse 122, respiratory rate 18, temperature 97.5, pulse oximetry 96% in room air on presentation. HEENT: Normocephalic, atraumatic. Moist mucous membranes. Anicteric eyes. CHEST: Bilateral mild wheezing. Good air entry. CARDIOVASCULAR: S1, S2 regular. No rub, murmur or gallop. ABDOMEN: Obese, soft, nontender. Bowel sounds present. There is a large left inguinal lymph node. EXTREMITIES: There is a superficial ulcer on the left plantar aspect of the foot, about 5 cm x 4 cm with surrounding erythema and extension of the erythema up to the middle of the left leg with swelling. LABORATORY DATA: WBC 7.1, hemoglobin 12.2, platelets 206. INR 1.3. Sodium 133, potassium 4.2, chloride 95, bicarbonate 31, BUN 12, creatinine 1.1, glucose 565, calcium 8.5. ASSESSMENT AND PLAN: This is a 46-year-old female admitted for diabetic foot ulcer and cellulitis. Plan: For diabetic foot ulcer and cellulitis, will continue the patient on cefotetan. For hyperglycemia, the patient was given IV regular insulin in the emergency department with improved blood sugar level. Will continue with the home doses of Toujeo insulin as well as Humalog 200 units per mL strength insulin as per sliding scale. Diabetes poorly controlled. Treatment as above. Hypertension, uncontrolled. At this point, we are going to resume home medications. The patient is on atenolol and benazepril; however, in view of infection and slightly elevated creatinine, will hold Lasix and spironolactone. Factor V Leiden and history of deep vein thrombosis (DVT). The patient is on Coumadin; however, INR is not therapeutic. Will give 5 mg of Coumadin tonight. DVT prophylaxis. The patient is on Coumadin. Diabetic neuropathy. Will continue with Lyrica. Fibromyalgia, back pain, obsessive-compulsive disorder, bipolar disorder, agoraphobia: Will continue with amitriptyline, Cymbalta, Lyrica, Seroquel. History of temporal lobe seizures. Will continue with Trileptal. Restless leg syndrome. Will continue with Requip. Gastroparesis. Will continue with Reglan. Asthma, chronic obstructive pulmonary disease. Will continue with albuterol, Symbicort, montelukast. Anxiety. Will continue with alprazolam as needed. Gastrointestinal (GI) prophylaxis. Will continue with home medications.
[2016-10-30] MEDS: SYMBICORT 80/4.5MCG INHALER 6GM INH SCH ×2 (08:50→20:09)
[2016-10-30] MEDS: BENAZEPRIL 20 MG TAB PO SCH (09:00)
[2016-10-30] MEDS ORDERED: ENOXAPARIN 40 MG/0.4 ML SYRINGE (J1650) SC SCH (09:00)
[2016-10-30] MEDS: oxyCODONE 5MG TAB PO PRN ×2 (10:21→16:37)
[2016-10-30] MEDS: ONDANSETRON 4MG/2ML VIAL (J2405) IV PRN ×2 (10:21→18:56)
[2016-10-30] MEDS: TOUJEO 300 UNIT/ML SQ SCH ×2 (10:23→22:26)
[2016-10-30] MEDS: NYSTATIN 100,000 UNITS/GM TOPICAL PWD 15 GM TOP SCH ×3 (10:23→21:00)
--- NOTE | 2016-10-30 12:08 | IPN ---
DATE: 10/30/2016 Rebeca is seen on [facility]. Admitted by the hospitalist group last night with a diabetic foot ulcer. She sees both Dr. Guerra, as well as Dr. Reis. She has had pain and swelling on the left foot, increased size of the ulcer on the sole of the left foot. Was admitted and placed on cefotetan. Her outpatient doctor is Dr. Pastrana. Her medical history shows history of recurrent bilateral diabetic foot ulcers. She has Charcot joints in her feet, diabetes and followed by [facility]. She has degenerative disc disease and chronic low back pain, followed by the pain clinic. History of fatty liver on ultrasound in May 2013. History of hypertensive heart disease, bipolar disorder with agoraphobia and anxiety , asthma, fibromyalgia, spina bifida occulta, psoriasis, temporal lobe seizures, Factor V Leiden deficiency on chronic anticoagulant therapy with warfarin. PHYSICAL EXAMINATION: 104/64, pulse 74, respiratory rate 18, 96% oxygen saturation on room air, 98.6 degrees. GENERAL APPEARANCE: She is resting comfortably. Examination of the left foot shows an ulceration. It is about 4 x 5 cm with surrounding erythema and some pallor of the skin adjacent to the ulcer, about 1 cm. There is erythema extending to the leg. LABORATORY DATA: White count 6.0, hemoglobin 10.8, platelets 199. Sodium 137, potassium 3.8, BUN 14, creatinine 1.4, glucose 319. LABORATORY: INR is 1.35. IMPRESSION: 1. Diabetic foot ulcer. She is on cefotetan, should be adequate coverage. I am not sure if Dr. Guerra or Dr. Reis area available this weekend, I will inquire about that. 2. Acute renal failure. Her creatinine is up. I see that she is on Ketorolac, which will be discontinued (she is also on warfarin and high risk of bleeding with this combination). 3. History of factor V Leiden deficiency. On chronic anticoagulation. Her INR is subtherapeutic. I will increase the warfarin dose. 4. Chronic pain problems. Continue her Cymbalta and other pain medications. Stop Ketorolac. 5. Diabetes. The patient is on Toujeo as an outpatient, 120 units of Toujeo in the morning and 100 units in the evening. 6. Hypertension. Continue her atenolol and benazepril for now. If her renal function is worsen tomorrow, we will have to stop the benazepril. Hopefully stopping the Ketorolac will be sufficient. 7. Charcot joint. She has a boot that she says is causing some skin breakdown and asking to have occupational therapy (OT) to see her for this. 8. Advanced directives.
[2016-10-30] MEDS: WARFARIN SOD 5 MG TAB PO SCH (16:32)
[2016-10-30] MEDS ORDERED: WARFARIN SOD 3 MG TAB PO SCH (17:00)
[2016-10-30] MEDS ORDERED: ENTER DRUG NAME HERE (PATIENT'S OWN MED) SQ SCH (17:30)
[2016-10-30 17:36] VITALS: BP 122/70
[2016-10-30 22:00] VITALS: BP 106/64
[2016-10-31 06:00] VITALS: BP 102/66
[2016-10-31 06:14] LABS: BASO % 0.5 % (0.0-1.0); EOS # 0.1 K/mm3 (0.0-0.50); LARGE UNSTAINED CELL # 0.3 K/mm3 (0.0-0.4); LARGE UNSTAINED CELL % 3.6 % (0.0-4.0); LYMPH # 1.4 K/mm3 (1.5-4.5); MEAN CORPUSCULAR HEMOGLOBIN 28.8 pg (27.0-33.0); MEAN CORPUSCULAR HGB CONC 33.4 g/dl (32.0-36.5); MEAN CORPUSCULAR VOLUME 86.3 fl (80.0-96.0); MONO # 0.4 K/mm3 (0.0-0.8); MONO % 5.4 % (0.0-5.0); NEUTROPHILS % 69.5 % (36.0-66.0); PLATELET COUNT, AUTOMATED 202 k/mm3 (150-450); RED CELL DISTRIBUTION WIDTH 14.1 % (11.5-14.5); WHITE BLOOD COUNT 7.2 K/mm3 (4.0-10.0)
[2016-10-31 06:22] LABS: INR 1.99
[2016-10-31 06:36] LABS: CALCIUM LEVEL 8.1 MG/DL (8.5-10.1); GLOMERULAR FILTRATION RATE 15.2 (>58); POTASSIUM SERUM 4.2 MEQ/L (3.5-5.1)
[2016-10-31 06:48] LABS: CREATININE FOR GFR 3.45 MG/DL (0.55-1.02)
[2016-10-31] MEDS: ONDANSETRON 4MG/2ML VIAL (J2405) IV PRN (07:47)
[2016-10-31] MEDS: oxyCODONE 5MG TAB PO PRN ×3 (07:47→22:25)
[2016-10-31] MEDS: HUMALOG 200 UNIT/ML SQ SCH ×3 (07:49→18:06)
[2016-10-31] MEDS: SYMBICORT 80/4.5MCG INHALER 6GM INH SCH ×2 (08:00→19:43)
[2016-10-31] MEDS: IPRATROPIUM 0.5MG/ALBUTEROL 2.5MG INH SOL UD 3ML (DUONEB)(J7620) NEB SCH ×3 (08:00→23:41)
[2016-10-31] MEDS: METOCLOPRAMIDE 5 MG TAB PO SCH ×3 (10:07→20:57)
[2016-10-31] MEDS: SENOKOT S TAB PO SCH ×2 (10:07→20:55)
[2016-10-31] MEDS: DULoxetine 30 MG CAP (CYMBALTA) PO SCH ×2 (10:07→20:58)
[2016-10-31] MEDS: PREGABALIN 100 MG CAP (LYRICA) PO SCH ×2 (10:07→20:55)
[2016-10-31] MEDS: OMEPRAZOLE 20 MG CAP PO SCH ×2 (10:08→20:55)
[2016-10-31] MEDS: cefoTEtan DISODIUM 1 GM in D5W MINI-BAG PLUS 50 ML IV SCH ×2 (10:09→22:24)
[2016-10-31] MEDS: TOUJEO 300 UNIT/ML SQ SCH ×2 (10:09→20:59)
[2016-10-31] MEDS: BENAZEPRIL 20 MG TAB PO SCH (10:13)
[2016-10-31] MEDS: ATENOLOL 50 MG TAB PO SCH ×2 (10:14→20:57)
[2016-10-31] MEDS: NYSTATIN 100,000 UNITS/GM TOPICAL PWD 15 GM TOP SCH ×3 (10:15→21:00)
[2016-10-31] MEDS: NS 1,000 ML IV SCH ×2 (12:10→22:26)
--- NOTE | 2016-10-31 12:47 | IPN ---
DATE: 10/31/2016 Rebeca is seen on [facility]. She has gone into acute renal failure. Creatinine is up to 3.4 today. She received Ketorolac upon admission, which I discontinued yesterday. She received her benazepril this morning prior to seeing her. She is complaining about pain in her right wrist and says she fell on that right hand prior to admission, would like it x-rayed. She says she had to have a catheter placed yesterday for intermittent catheterization due to urinary retention. She says she has been able to void. She only had a few hundred mL. I spoke with Dr. Guerra yesterday, and he plans on seeing her either today or tomorrow. PHYSICAL EXAMINATION: Afebrile, 97.6, blood pressure 110/65, pulse 72, 90% oxygen saturation. General Appearance: Resting comfortably, in no distress. No jugular venous distention (JVD). Lungs: Clear. Heart: Regular rhythm without murmur. Abdomen: Soft, nontender. Right wrist tender to palpate over the "snuffbox area" and also over the proximal metacarpals. Her foot wound looks unchanged. The redness appears to have extended a few millimeters from yesterday. IMPRESSION: 1. Diabetic foot ulcer/infection, on Cefotan. Should be adequate coverage. Dr. Guerra and I spoke. He will see her today or tomorrow. Continue current antibiotic therapy. 2. Acute renal failure. Benazepril has been discontinued. Urine for eosinophils ordered as she could have acute interstitial nephritis from her antibiotic. Renal ultrasound ordered. I have ordered some IV fluids to try to increase urine output. Consultation placed for nephrology. I am not sure if they are seeing consults today. I have put a text in to Dr. Lindsey. 3. Chronic anticoagulant therapy. INR is improved on increased dose of warfarin. 4. Chronic pain problems. Ketorolac was continued. She is on Cymbalta and other pain medications, which we will continue. 5. Diabetes. Blood sugar has been elevated. Will increase the dose of her insulin. 6. Right wrist pain. X-ray of wrist ordered. 7. Hypertension. Stop the benazepril. Continue atenolol.
--- NOTE | 2016-10-31 12:53 | REP ---
Clinical: Pain with recent Trauma. Technique: AP, lateral, bilateral oblique views right wrist . Findings: The carpal bones, surrounding osseous structures, soft tissues, and joint spaces are normal. There is no evidence for acute fracture or dislocation. No subcutaneous emphysema or radiodense foreign body. Impression: No acute fracture or dislocation Signed by Clint Sullivan MD 10/31/2016 12:45 P
--- NOTE | 2016-10-31 13:10 | REP ---
Clinical: Acute renal insufficiency. Technique: Real time dobbs scale ultrasound examination using curved array transducer. Findings: Bilateral kidneys are normal in contour, size, echogenicity, and reniform shape without hydronephrosis, nephrolithiasis, cystic or renal mass lesion. Right kidney measures 12.4 x 7.2 x 6.6 cm. Left kidney measures 13.0 x 5.2 x 6.2 cm. The bladder is unremarkable. Impression: Relatively normal kidneys without evidence for hydronephrosis. Signed by Clint Sullivan MD 10/31/2016 01:02 P
[2016-10-31 14:00] VITALS: BP 116/68
[2016-10-31 17:08] LABS: YEAST LIKE CELL URINE AUTO LARGE
[2016-10-31] MEDS: WARFARIN SOD 5 MG TAB PO SCH (18:05)
[2016-10-31] MEDS: QUEtiapine FUMARATE 200 MG TAB PO SCH (20:54)
[2016-10-31] MEDS: rOPINIRole 1MG TAB PO SCH (20:56)
[2016-10-31] MEDS: OXcarbazepine 300 MG TAB PO SCH (20:56)
[2016-10-31] MEDS: FAMOTIDINE 20 MG TAB PO SCH (20:57)
[2016-10-31] MEDS: traZODone 100 MG TAB PO SCH (20:58)
[2016-10-31] MEDS: MONTELUKAST 10 MG TAB PO SCH (20:58)
[2016-10-31 22:00] VITALS: BP 130/57
[2016-11-01] VITALS (8 sets, daily range): BP systolic 97–142; BP diastolic 52–68
--- NOTE | 2016-11-01 01:49 | EDDOCDS ---
Physician Documentation [facility] Name: Rebeca Soliz Age: 46 yrs Sex: Female : 1970 Arrival Date: 10/29/2016 Time: 20:15 Bed 9 Private MD: Zion Pastrana D Disposition: 10/29/16 21:58 Hospitalization ordered by Ashwini Acevedo for Inpatient Admission. Preliminary diagnosis are Cellulitis of left lower limb, Hyperglycemia, unspecified. - Bed requested for 4 [place]. - Status is Inpatient Admission. jp6 - Condition is Stable. - Problem is an ongoing problem. - Symptoms are unchanged. Historical: - Allergies: Glucophage (Vomit); Latex (Anaphylaxis); PENICILLINS (Anaphylaxis); Pineapple; SULFA (SULFONAMIDES) (Rash); Tricor (Vomit); - Home Meds: 1. albuterol sulfate 90 mcg/actuation Inhl HFAA 2 puffs as needed 2. amitriptyline 50 mg Oral tab HS 3. Reglan 5 mg Oral tab TID AC 4. loperamide 2 mg Oral cap every 4 hours 5. atenolol 50 mg Oral tab 1 tab 2 times per day 6. benazepril 40 mg oral tab 1 tab once daily 7. Chlorthalidone 12.5 Oral once daily 8. Coumadin 1.5 Oral tab 1 tab once daily 9. Cymbalta 60 mg Oral cpDR 1 cap am and 30 mg at HS 10. epipen .3 mg as needed 11. Humalog 200 sliding scale before meals 50 at meals 12. Lasix 40 mg Oral tab twice daily as needed 13. Lunesta 3 mg Oral tab 1 tab once daily 14. Lyrica 300MG Oral 1 cap 2 times per day 15. nystatin 100,000 unit/gram Topical powd 100,000 unit/g 3 times per day 16. omeprazole 40 mg Oral cpDR 1 cap 2 times per day 17. potassium chloride 20 mEq Oral TbTQ 1 tab 2 times per day 18. Requip 4 mg Oral tab 1 tab HS 19. Seroquel 600 mg Oral HS 20. spironolactone 25 mg Oral tab 1 tab once daily 21. symbicort 80/4.5mcg twice a day 22. Toujeo SoloStar 125 in am. 100 at hs subcutaneous 23. Triliptal 400mg BID 24. Xanax 1 mg Oral tab 1 tab QID prn 25. Xopenex 1.25 mg/3 mL Inhl nebu 3 mL every 6 hours 26. Zantac 150 mg Oral tab 1 tab once daily - PMHx: 2 Blood clots in left upper arm while PICC line was in; Abdominal Adhesions; Anxiety; Arthritis; Asthma; Bilateral TMJ; Bipolar disorder; Bulging Disc Thoracic-Lumbar; cellulitis; Common Variable Immune Deficiency; DDD; Diabetes - IDDM: controlled; DVT; Endometriosis; Fibromyalgia; GERD; Herniated Vertebral Discs; Hiatal Hernia; Hypertension; insomnia; Migraines; MRSA; OCD; pleural effusions; Psoriasis; Seasonal Allergies; Skin Neuritis; Spina Bifida Aculta; Temporal Lobe Seizures; ventricular hypertrophy; - PSHx: Cholecystectomy; Appendectomy; Hysterectomy; cervical c5-6 fusion; bilateral TMJ surgery; - Social history: No barriers to communication noted, The patient speaks fluent Mexican, Speaks appropriately for age, Smoking status: Patient states former smoker of tobacco. - Family history: Not pertinent. - : The pt / caregiver states he / she is on anticoagulants: coumadin. Home medication list is obtained from the patient. - Exposure Risk Screening:: None identified. ENGLISH LECTURER: 10/29 20:24 LMP N/A - Hysterectomy jo3 Vital Signs: 20:17 BP 204 / 109; Pulse 122; Resp 18 S; Temp 97.5; Pulse Ox 96% on R/A; Weight 122.47 kg / dd6 270 lbs (R); Height 5 ft. 10 in. (177.80 cm) (R); 23:10 BP 148 / 81; Pulse 93; Resp 18; Temp 99.4; Pulse Ox 98% on R/A; Pain 7/10; jp6 10/30 00:36 BP 142 / 81; Pulse 92; Resp 16; Pulse Ox 99% on R/A; Pain 6/10; jp6 10/29 20:17 Body Mass Index 38.74 (122.47 kg, 177.80 cm) dd6 MDM: 10/29 21:17 Fingerstick Blood Sugar Ordered. EDMS 21:25 -Blood Culture (Adults Only), peripheral from different site, or from device/port/PICC cs11 etc. if present ordered. 21:25 IV Saline Lock ordered. cs11 21:25 Dilaudid - HYDROmorphone 0.5 mg IVP once ordered. cs11 21:25 CBC with Diff Ordered. EDMS 21:25 MED Profile Ordered. EDMS 21:25 Pt & Aptt Ordered. EDMS 21:26 -Blood Culture Ordered. EDMS 21:26 Ultrasound LE Unilateral R/O DVT Ordered. EDMS 21:27 Financial registration complete. zo 21:28 [facility] Agreement was scanned into [employer] and attached to record. zo 21:29 -Blood Culture (Adults Only), peripheral from different site, or from device/port/PICC tmm1 etc. if present complete. 21:29 BLOOD CULTURES Ordered. EDMS 21:33 cefoTEtan 2 grams IVPB once over 30 mins; dilute in NS or D5W ordered. cs11 21:34 Fingerstick Blood Sugar Reviewed. cs11 21:35 Insulin Regular Human 20 units IVP once ordered. cs11 21:35 Accucheck ordered. cs11 22:00 BED REQUEST+ADM ordered. EDMS 22:12 CBC with Diff Reviewed. cs11 22:12 MED Profile Reviewed. cs11 22:12 Pt & Aptt Reviewed. cs11 22:25 Fingerstick Blood Sugar Ordered. EDMS 22:44 C REACTIVE PROTEIN QUANTITATIV Ordered. EDMS 22:44 CBC WITH DIFFERENTIAL Ordered. EDMS 22:44 BASIC METABOLIC PROFILE Ordered. EDMS 22:47 Admission / Observation Status ordered. EDMS 22:47 CONSISTENT CARBOHYDRATES ordered. EDMS 22:58 Fingerstick Blood Sugar Ordered. EDMS 23:23 PROTHROMBIN TIME PROFILE\E\INR Ordered. EDMS 10/30 00:48 oxyCODONE 5 mg PO once ordered. jp6 08:05 T-Sheet-- Draft Copy was scanned into [employer] and attached to record. [facility] Point of Care Testing: Blood Glucose: 10/29 20:45 Blood Glucose: 525 mg/dL; jp6 22:20 Blood Glucose: 382 mg/dL; jp6 Ranges: Administered Medications: 22:00 Drug: Insulin Regular Human 20 units [insulin regular human 100 unit/mL injection jp6 solution (0.2 mL)] {Co-Signature: [email or web address] (Lillie Nolasco RN).} Route: IVP; Site: right upper arm; 22:02 Drug: Dilaudid - HYDROmorphone 0.5 mg [hydromorphone 1 mg/mL injection syringe (0.5 jp6 mL)] Route: IVP; Site: right upper arm; 22:28 Drug: cefoTEtan 2 grams [cefotetan 2 gram solution for injection] Route: IVPB; Infused jp6 Over: 30 mins; Site: right upper arm; 10/30 00:48 Drug: oxyCODONE 5 mg [oxycodone 5 mg tablet (1 tabs)] Route: PO; jp6 Signatures: Dispatcher [employer] Debbie Jeffrey, RN RN Marguerite SanchezRN RN jo3 Fransisco Roa Craig, DO DO cs11 McLear, Isa, GLOVE MACHINE OPERATOR GLOVE MACHINE OPERATOR tmm1 Park Ramírez RN RN jp6 Amanda Parra RN kas2 The chart was reviewed and I authenticate all verbal orders and agree with the evaluation and treatment provided.Attachments: 10/29 21:28 [facility] Agreement zo 10/30 08:05 T-Sheet-- Draft Copy [facility] Chart Complete MTDD
--- NOTE | 2016-11-01 01:49 | EDDOCDS ---
Nurse's Notes [facility] Name: Rebeca Soliz Age: 46 yrs Sex: Female : 1970 Arrival Date: 10/29/2016 Time: 20:15 Bed 9 Private MD: Zion Pastrana D Diagnosis: Cellulitis of left lower limb;Hyperglycemia, unspecified Presentation: 10/29 20:19 Presenting complaint: Patient states: Has a diabetic ulcer on left foot. Been on low jo3 dose antibiotics (Keflex) for 3 days. Now is getting cellulitis around the area with some swelling. Adult Sepsis Screening: The patient does not have new or worsening altered mentation. Patient's respiratory rate is less than 22. Systolic blood pressure is greater than 100. Patient has a qSOFA score of 0- Negative Sepsis Screen. Suicide/Homicide risk assessment- the patient denies having any suicidal and/or homicidal ideations and does not present with any other emotional, behavioral or mental health complaints. Status: Patient is not a off premise service representative or dependent. Transition of care: patient was not received from another setting of care. 20:19 Acuity: CINDY Level 3 jo3 20:19 Method Of Arrival: Walkin/Carried/Asstd jo3 Triage Assessment: 20:24 General: Appears in no apparent distress. HIV screening NA for this visit Offered jo3 previously. Neurological: Level of Consciousness is awake, alert, Oriented to person, place, time. Respiratory: Airway is patent Respiratory effort is even, unlabored. Derm: Skin is pink, warm & dry. 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 albuterol sulfate 90 mcg/actuation Inhl HFAA 2 puffs as needed 2. amitriptyline 50 mg Oral tab HS 3. Reglan 5 mg Oral tab TID AC 4. loperamide 2 mg Oral cap every 4 hours 5. atenolol 50 mg Oral tab 1 tab 2 times per day 6. benazepril 40 mg oral tab 1 tab once daily 7. Chlorthalidone 12.5 Oral once daily 8. Coumadin 1.5 Oral tab 1 tab once daily 9. Cymbalta 60 mg Oral cpDR 1 cap am and 30 mg at HS 10. epipen .3 mg as needed 11. Humalog 200 sliding scale before meals 50 at meals 12. Lasix 40 mg Oral tab twice daily as needed 13. Lunesta 3 mg Oral tab 1 tab once daily 14. Lyrica 300MG Oral 1 cap 2 times per day 15. nystatin 100,000 unit/gram Topical powd 100,000 unit/g 3 times per day 16. omeprazole 40 mg Oral cpDR 1 cap 2 times per day 17. potassium chloride 20 mEq Oral TbTQ 1 tab 2 times per day 18. Requip 4 mg Oral tab 1 tab HS 19. Seroquel 600 mg Oral HS 20. spironolactone 25 mg Oral tab 1 tab once daily 21. symbicort 80/4.5mcg twice a day 22. Toujeo SoloStar 125 in am. 100 at hs subcutaneous 23. Triliptal 400mg BID 24. Xanax 1 mg Oral tab 1 tab QID prn 25. Xopenex 1.25 mg/3 mL Inhl nebu 3 mL every 6 hours 26. Zantac 150 mg Oral tab 1 tab once daily - PMHx: 2 Blood clots in left upper arm while PICC line was in; Abdominal Adhesions; Anxiety; Arthritis; Asthma; Bilateral TMJ; Bipolar disorder; Bulging Disc Thoracic-Lumbar; cellulitis; Common Variable Immune Deficiency; DDD; Diabetes - IDDM: controlled; DVT; Endometriosis; Fibromyalgia; GERD; Herniated Vertebral Discs; Hiatal Hernia; Hypertension; insomnia; Migraines; MRSA; OCD; pleural effusions; Psoriasis; Seasonal Allergies; Skin Neuritis; Spina Bifida Aculta; Temporal Lobe Seizures; ventricular hypertrophy; - PSHx: Cholecystectomy; Appendectomy; Hysterectomy; cervical c5-6 fusion; bilateral TMJ surgery; - Social history: No barriers to communication noted, The patient speaks fluent Turkish, Speaks appropriately for age, Smoking status: Patient states former smoker of tobacco. - Family history: Not pertinent. - : The pt / caregiver states he / she is on anticoagulants: coumadin. Home medication list is obtained from the patient. - Exposure Risk Screening:: None identified. Screenin:30 Screening information is obtained from the patient. Fall risk: At risk due to jp6 neuropathy. Assistance ADL's: requires no assistance with activities of daily living. Abuse/DV Screen: The patient / caregiver reports he/she is: not in a situation that causes fear, pain or injury. Nutritional screening: No deficits noted. Advance Directives: Currently, there is a health care proxy, . There is no active DNR order. There is no living will. home support is adequate. Assessment: 20:30 General: Appears obese, uncomfortable, Behavior is appropriate for age, cooperative, jp6 pleasant. Pain: Location: left foot Pain currently is 6 out of 10 on a pain scale. Pain radiates to left leg Quality of pain is described as burning, aching, crampy. Neurological: Tingling in right foot and left foot. EENT: No deficits noted. Cardiovascular: No deficits noted. Heart tones S1 S2 present. Respiratory: No deficits noted. Airway is patent Respiratory effort is even, unlabored, Respiratory pattern is regular, symmetrical, Breath sounds are clear bilaterally. GI: No deficits noted. Abdomen is distended, obese. : No deficits noted. Derm: Skin has blisters on open old blister left bottom of foot-redness surrounding w/ red streak going up left leg. Swelling noted in foot and up left leg. Musculoskeletal: No deficits noted. 21:30 Reassessment: Patient appears in no apparent distress at this time. General: Appears jp6 uncomfortable, Behavior is appropriate for age, cooperative. Neurological: Level of Consciousness is awake, alert. Respiratory: Airway is patent Respiratory effort is even, Respiratory pattern is regular, symmetrical. Musculoskeletal: No deficits noted. 22:23 Reassessment: Patient appears in no apparent distress at this time. Neurological: Level jp6 of Consciousness is awake, alert, Oriented to person, place, time. Respiratory: Airway is patent Respiratory effort is even, unlabored, Respiratory pattern is regular, symmetrical. Derm: Skin Skin is pink, warm & dry. 23:10 Reassessment: Patient appears in no apparent distress at this time. General: Appears jp6 comfortable. Neurological: Level of Consciousness is awake, alert. Respiratory: Airway is patent Respiratory effort is even, unlabored, Respiratory pattern is regular, symmetrical. Musculoskeletal: Reports pain in left foot and left leg. 10/30 00:09 Reassessment: Patient appears in no apparent distress at this time. Patient states jp6 symptoms have not improved. General: Behavior is appropriate for age, cooperative. Pain: Location: left foot Pain currently is 7 out of 10 on a pain scale. Neurological: Level of Consciousness is awake, alert, Oriented to person, place, time. Musculoskeletal: Reports Pain is 7 out of 10 on a pain scale. no order for pain medication-call in to hospitalist for order. Vital Signs: 10/29 20:17 BP 204 / 109; Pulse 122; Resp 18 S; Temp 97.5; Pulse Ox 96% on R/A; Weight 122.47 kg dd6 (R); Height 5 ft. 10 in. (177.80 cm) (R); 23:10 BP 148 / 81; Pulse 93; Resp 18; Temp 99.4; Pulse Ox 98% on R/A; Pain 7/10; jp6 10/30 00:36 BP 142 / 81; Pulse 92; Resp 16; Pulse Ox 99% on R/A; Pain 6/10; jp6 10/29 20:17 Body Mass Index 38.74 (122.47 kg, 177.80 cm) dd6 Vitals: 10/29 20:17 Log In Time: October 29, 2016 at 20:15. dd6 ED Course: 20:17 Patient visited by Milad Lucio PCA. dd6 20:17 Zion Pastrana is Private Physician. dd6 20:17 Patient moved to Waiting dd6 20:18 Patient moved to Pre RCE dd6 20:21 Triage Initiated jo3 20:26 Patient visited by Marguerite Jeter,QI. jo3 20:28 Jakob Contreras, RN is Primary Nurse. jo3 20:28 Patient moved to 9 jo3 20:29 Patient visited by Lillie Nolasco RN. kas2 20:30 The patient / caregiver is instructed regarding the plan of care and ED course. jp6 20:30 Inserted saline lock: 20 gauge in right upper arm. No procedures done that require jp6 assistance. 20:32 Primary Nurse role handed off by Jakob Contreras, RN jp6 20:32 Park Ramírez,QI is Primary Nurse. jp6 20:44 Jose Eduardo Hernandez DO is Attending Physician. cs11 20:44 Patient visited by Jose Eduardo Hernandez DO. cs11 21:28 [facility] [place] Agreement was scanned into [employer] and attached to record. zo 21:42 BLOOD CULTURES Sent. kas2 21:45 Patient visited by Lillie Nolasco RN. kas2 21:45 Labs drawn. (by ED staff). Sent per order to lab. kas2 21:58 Ashwini Acevedo is Hospitalizing Provider. cs11 23:00 Ultrasound LE Unilateral R/O DVT Returned. EDMS 10/30 08:05 T-Sheet-- Draft Copy was scanned into [employer]Way and attached to record. seh Administered Medications: 10/29 22:00 Drug: Insulin Regular Human 20 units [insulin regular human 100 unit/mL injection jp6 solution (0.2 mL)] {Co-Signature: ani (Lillie Nolasco RN).} Route: IVP; Site: right upper arm; 22:02 Drug: Dilaudid - HYDROmorphone 0.5 mg [hydromorphone 1 mg/mL injection syringe (0.5 jp6 mL)] Route: IVP; Site: right upper arm; 22:28 Drug: cefoTEtan 2 grams [cefotetan 2 gram solution for injection] Route: IVPB; Infused jp6 Over: 30 mins; Site: right upper arm; 10/30 00:48 Drug: oxyCODONE 5 mg [oxycodone 5 mg tablet (1 tabs)] Route: PO; jp6 Point of Care Testing: Blood Glucose: 10/29 20:45 Blood Glucose: 525 mg/dL; jp6 22:20 Blood Glucose: 382 mg/dL; jp6 Ranges: Order Results: Lab Order: Fingerstick Blood Sugar; SPEC'M 10/29/16 21:08 Test: BEDSIDE GLUCOSE; Value: 520; Range: 70-105; Abnormal: Above upper panic limits; Units: MG/DL; Status: F Test Note: ; RN Notified Lab Order: CBC with Diff; SPEC'M 10/29/16 21:05 Test: WHITE BLOOD COUNT; Value: 7.1; Range: 4.0-10.0; Units: K/mm3; Status: F Test: RED BLOOD COUNT; Value: 4.18; Range: 4.00-5.40; Units: M/mm3; Status: F Test: HEMOGLOBIN; Value: 12.2; Range: 12.0-16.0; Units: g/dl; Status: F Test: HEMATOCRIT; Value: 35.6; Range: 36.0-47.0; Abnormal: Below low normal; Units: %; Status: F Test: MEAN CORPUSCULAR VOLUME; Value: 85.1; Range: 80.0-96.0; Units: fl; Status: F Test: MEAN CORPUSCULAR HEMOGLOBIN; Value: 29.2; Range: 27.0-33.0; Units: pg; Status: F Test: MEAN CORPUSCULAR HGB CONC; Value: 34.3; Range: 32.0-36.5; Units: g/dl; Status: F Test: RED CELL DISTRIBUTION WIDTH; Value: 14.1; Range: 11.5-14.5; Units: %; Status: F Test: PLATELET COUNT, AUTOMATED; Value: 206; Range: 150-450; Units: k/mm3; Status: F Test: NEUTROPHILS %; Value: 65.8; Range: 36.0-66.0; Units: %; Status: F Test: LYMPH %; Value: 22.9; Range: 24.0-44.0; Abnormal: Below low normal; Units: %; Status: F Test: MONO %; Value: 5.1; Range: 0.0-5.0; Abnormal: Above high normal; Units: %; Status: F Test: EOS %; Value: 2.7; Range: 0.0-3.0; Units: %; Status: F Test: BASO %; Value: 0.3; Range: 0.0-1.0; Units: %; Status: F Test: LARGE UNSTAINED CELL %; Value: 3.2; Range: 0.0-4.0; Units: %; Status: F Test: NEUTROPHILS #; Value: 4.7; Range: 1.8-7.7; Units: K/mm3; Status: F Test: LYMPH #; Value: 1.6; Range: 1.5-4.5; Units: K/mm3; Status: F Test: MONO #; Value: 0.4; Range: 0.0-0.8; Units: K/mm3; Status: F Test: EOS #; Value: 0.2; Range: 0.0-0.50; Units: K/mm3; Status: F Test: BASO #; Value: 0.0; Range: 0.0-0.2; Units: K/mm3; Status: F Test: LARGE UNSTAINED CELL #; Value: 0.2; Range: 0.0-0.4; Units: K/mm3; Status: F Lab Order: MED Profile; SPECM 10/29/16 21:05 Test: GLUCOSE, FASTING; Value: 565; Range: 70-105; Abnormal: Above upper panic limits; Units: MG/DL; Status: F Test: BLOOD UREA NITROGEN; Value: 12; Range: 7-18; Units: MG/DL; Status: F Test: CREATININE FOR GFR; Value: 1.10; Range: 0.55-1.02; Abnormal: Above high normal; Units: MG/DL; Status: F Test: GLOMERULAR FILTRATION RATE; Value: 56.7; Range: >58; Abnormal: Below low normal; Status: F Test: SODIUM LEVEL; Value: 133; Range: 136-145; Abnormal: Below low normal; Units: MEQ/L; Status: F Test: POTASSIUM SERUM; Value: 4.2; Range: 3.5-5.1; Units: MEQ/L; Status: F Test: CHLORIDE LEVEL; Value: 95; Range: 98-107; Abnormal: Below low normal; Units: MEQ/L; Status: F Test: CARBON DIOXIDE LEVEL; Value: 31; Range: 21-32; Units: MEQ/L; Status: F Test: ANION GAP; Value: 7; Range: 8-16; Abnormal: Below low normal; Units: MEQ/L; Status: F Test: CALCIUM LEVEL; Value: 8.5; Range: 8.5-10.1; Units: MG/DL; Status: F Test Note: ; Units are mL/min/1.73 m2 Chronic Kidney Disease Staging per NKF: Stage I & II GFR >=60 Normal to Mildly Decreased Stage III GFR 30-59 Moderately Decreased Stage IV GFR 15-29 Severely Decreased Stage V GFR <15 Very Little GFR Left ESRD GFR <15 on FLEX O WRITER OPERATOR Lab Order: Pt & Aptt; SPEC10/29/16 21:05 Test: PROTHROMBIN TIME; Value: 16.5; Range: 12.3-14.5; Abnormal: Above high normal; Units: SECONDS; Status: F Test: INR; Value: 1.32; Status: F Test: PARTIAL THROMBOPLASTIN TIME; Value: 33.9; Range: 26.6-37.1; Units: SECONDS; Status: F Test Note: ; THERAPUTIC HUMAN INR VALUES INDICATIONS NORMAL RANGES PROPHYLAXIS/TREATMENT OF: VENOUS THROMBOSIS 2.0-3.0 PULMONARY EMBOLISM 2.0-3.0 PREVENTION OF SYSTEMIC EMBOLISM FROM: TISSUE HEART VALVES 2.0-3.0 ACUTE MYOCARDIAL INFARCTION 2.0-3.0 VALVULAR HEART DISEASE 2.0-3.0 ATRIAL FIBRILLATION 2.0-3.0 MECHANICAL VALVES(HIGH RISK) 2.5-3.5 RECURRENT MYOCARDIAL INFARCTION 2.5-3.5 Lab Order: Fingerstick Blood Sugar; SPEC'M 10/29/16 22:18 Test: BEDSIDE GLUCOSE; Value: 382; Range: 70-105; Abnormal: Above high normal; Units: MG/DL; Status: F Test Note: ; RN Notified Lab Order: Fingerstick Blood Sugar; SPEC'M 10/29/16 22:50 Test: BEDSIDE GLUCOSE; Value: 248; Range: 70-105; Abnormal: Above high normal; Units: MG/DL; Status: F Test Note: ; RN Notified Radiology Order: Ultrasound LE Unilateral R/O DVT Test: Ultrasound LE Unilateral R/O DVT REASON FOR EXAMINATION: Deformity/Swelling; ; Clinical history: Pain, swelling.; Findings: The left common femoral, superficial femoral, popliteal, and other deep venous structures c; ompress normally and demonstrate normal color Doppler flow. Normal venous waveforms with augmentation; are seen. There is a large left inguinal lymph node measuring up to 4.2 x 4.4 x 1.2 cm in diameter,; of uncertain clinical significance.; Impression:; No evidence of deep vein thrombosis in the left femoral popliteal venous system.; ; Outcome: 21:58 Decision to Hospitalize by Provider. 11 23:42 Discharge Assessment: Patient awake, alert and oriented x 3. No cognitive and/or jp6 functional deficits noted. Patient verbalized understanding of disposition instructions. patient administered narcotics - yes. Patient was admitted to the hospital or transferred to another facility. The following High Risk Discharge criteria are identified: None. Admitted to Med/Surg accompanied by tech, via stretcher, with chart. Condition: unchanged. Ultrasound Study completed. Admission hand-off: Report Faxed Fax receipt verified by Danielle gee. Property :Personal belongings accompany Pt. 10/30 00:48 Patient left the ED. jp6 Signatures: Dispatcher [employer] Marguerite Basilio,RN RN jo3 Fransisco Roa Daniell, AVA ASSISTANT PROFESSOR OF RELIGION dd6 Jose Eduardo Hernandez DO DO cs11 Lillie Nolasco RN RN kas2 Park Ramírez RN RN [email or web address] Amanda Parra RN2 Chart Complete MTDD
--- NOTE | 2016-11-01 01:49 | EDDOCDS ---
Physician Documentation [facility] Name: Rebeca Soliz Age: 46 yrs Sex: Female : 1970 Arrival Date: 10/29/2016 Time: 20:15 Bed 9 Private MD: Zion Pastrana D Disposition: 10/29/16 21:58 Hospitalization ordered by Ashwini Acevedo for Inpatient Admission. Preliminary diagnosis are Cellulitis of left lower limb, Hyperglycemia, unspecified. - Bed requested for 4 Globe. - Status is Inpatient Admission. jp6 - Condition is Stable. - Problem is an ongoing problem. - Symptoms are unchanged. Historical: - Allergies: Glucophage (Vomit); Latex (Anaphylaxis); PENICILLINS (Anaphylaxis); Pineapple; SULFA (SULFONAMIDES) (Rash); Tricor (Vomit); - Home Meds: 1. albuterol sulfate 90 mcg/actuation Inhl HFAA 2 puffs as needed 2. amitriptyline 50 mg Oral tab HS 3. Reglan 5 mg Oral tab TID AC 4. loperamide 2 mg Oral cap every 4 hours 5. atenolol 50 mg Oral tab 1 tab 2 times per day 6. benazepril 40 mg oral tab 1 tab once daily 7. Chlorthalidone 12.5 Oral once daily 8. Coumadin 1.5 Oral tab 1 tab once daily 9. Cymbalta 60 mg Oral cpDR 1 cap am and 30 mg at HS 10. epipen .3 mg as needed 11. Humalog 200 sliding scale before meals 50 at meals 12. Lasix 40 mg Oral tab twice daily as needed 13. Lunesta 3 mg Oral tab 1 tab once daily 14. Lyrica 300MG Oral 1 cap 2 times per day 15. nystatin 100,000 unit/gram Topical powd 100,000 unit/g 3 times per day 16. omeprazole 40 mg Oral cpDR 1 cap 2 times per day 17. potassium chloride 20 mEq Oral TbTQ 1 tab 2 times per day 18. Requip 4 mg Oral tab 1 tab HS 19. Seroquel 600 mg Oral HS 20. spironolactone 25 mg Oral tab 1 tab once daily 21. symbicort 80/4.5mcg twice a day 22. Toujeo SoloStar 125 in am. 100 at hs subcutaneous 23. Triliptal 400mg BID 24. Xanax 1 mg Oral tab 1 tab QID prn 25. Xopenex 1.25 mg/3 mL Inhl nebu 3 mL every 6 hours 26. Zantac 150 mg Oral tab 1 tab once daily - PMHx: 2 Blood clots in left upper arm while PICC line was in; Abdominal Adhesions; Anxiety; Arthritis; Asthma; Bilateral TMJ; Bipolar disorder; Bulging Disc Thoracic-Lumbar; cellulitis; Common Variable Immune Deficiency; DDD; Diabetes - IDDM: controlled; DVT; Endometriosis; Fibromyalgia; GERD; Herniated Vertebral Discs; Hiatal Hernia; Hypertension; insomnia; Migraines; MRSA; OCD; pleural effusions; Psoriasis; Seasonal Allergies; Skin Neuritis; Spina Bifida Aculta; Temporal Lobe Seizures; ventricular hypertrophy; - PSHx: Cholecystectomy; Appendectomy; Hysterectomy; cervical c5-6 fusion; bilateral TMJ surgery; - Social history: No barriers to communication noted, The patient speaks fluent Malian, Speaks appropriately for age, Smoking status: Patient states former smoker of tobacco. - Family history: Not pertinent. - : The pt / caregiver states he / she is on anticoagulants: coumadin. Home medication list is obtained from the patient. - Exposure Risk Screening:: None identified. 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 10 in. (177.80 cm) (R); 23:10 BP 148 / 81; Pulse 93; Resp 18; Temp 99.4; Pulse Ox 98% on R/A; Pain 7/10; jp6 10/30 00:36 BP 142 / 81; Pulse 92; Resp 16; Pulse Ox 99% on R/A; Pain 6/10; jp6 10/29 20:17 Body Mass Index 38.74 (122.47 kg, 177.80 cm) dd6 MDM: 10/29 21:17 Fingerstick Blood Sugar Ordered. EDMS 21:25 -Blood Culture (Adults Only), peripheral from different site, or from device/port/PICC cs11 etc. if present ordered. 21:25 IV Saline Lock ordered. cs11 21:25 Dilaudid - HYDROmorphone 0.5 mg IVP once ordered. cs11 21:25 CBC with Diff Ordered. EDMS 21:25 MED Profile Ordered. EDMS 21:25 Pt & Aptt Ordered. EDMS 21:26 -Blood Culture Ordered. EDMS 21:26 Ultrasound LE Unilateral R/O DVT Ordered. EDMS 21:27 Financial registration complete. zo 21:28 [facility] Payment Agreement was scanned into [email or web address] and attached to record. zo 21:29 -Blood Culture (Adults Only), peripheral from different site, or from device/port/PICC tmm1 etc. if present complete. 21:29 BLOOD CULTURES Ordered. EDMS 21:33 cefoTEtan 2 grams IVPB once over 30 mins; dilute in NS or D5W ordered. cs11 21:34 Fingerstick Blood Sugar Reviewed. cs11 21:35 Insulin Regular Human 20 units IVP once ordered. cs11 21:35 Accucheck ordered. cs11 22:00 BED REQUEST+ADM ordered. EDMS 22:12 CBC with Diff Reviewed. cs11 22:12 MED Profile Reviewed. cs11 22:12 Pt & Aptt Reviewed. cs11 22:25 Fingerstick Blood Sugar Ordered. EDMS 22:44 C REACTIVE PROTEIN QUANTITATIV Ordered. EDMS 22:44 CBC WITH DIFFERENTIAL Ordered. EDMS 22:44 BASIC METABOLIC PROFILE Ordered. EDMS 22:47 Admission / Observation Status ordered. EDMS 22:47 CONSISTENT CARBOHYDRATES ordered. EDMS 22:58 Fingerstick Blood Sugar Ordered. EDMS 23:23 PROTHROMBIN TIME PROFILE\E\INR Ordered. EDMS 10/30 00:48 oxyCODONE 5 mg PO once ordered. jp6 08:05 T-Sheet-- Draft Copy was scanned into [email or web address] and attached to record. [facility] Point of Care Testing: Blood Glucose: 10/29 20:45 Blood Glucose: 525 mg/dL; jp6 22:20 Blood Glucose: 382 mg/dL; jp6 Ranges: Administered Medications: 22:00 Drug: Insulin Regular Human 20 units [insulin regular human 100 unit/mL injection jp6 solution (0.2 mL)] {Co-Signature: kas2 (Lillie Nolasco RN).} Route: IVP; Site: right upper arm; 22:02 Drug: Dilaudid - HYDROmorphone 0.5 mg [hydromorphone 1 mg/mL injection syringe (0.5 jp6 mL)] Route: IVP; Site: right upper arm; 22:28 Drug: cefoTEtan 2 grams [cefotetan 2 gram solution for injection] Route: IVPB; Infused jp6 Over: 30 mins; Site: right upper arm; 10/30 00:48 Drug: oxyCODONE 5 mg [oxycodone 5 mg tablet (1 tabs)] Route: PO; jp6 Signatures: Dispatcher [employer] Debbie Jeffrey, RN RN Marguerite SanchezRN RN jo3 Fransisco Roa Craig, DO DO cs11 McLear, Isa, CLINICAL DIETICIAN CLINICAL DIETICIAN tmm1 Park Ramírez RN RN jp6 Amanda Parra RN kas2 The chart was reviewed and I authenticate all verbal orders and agree with the evaluation and treatment provided.Attachments: 10/29 21:28 [facility] Payment Agreement zo 10/30 08:05 T-Sheet-- Draft Copy [facility] Chart Complete MTDD
--- NOTE | 2016-11-01 03:33 | CR ---
DATE OF CONSULTATION: 10/31/2016 CONSULTATION REPORT FOR: Napoleon Monroy MD. REASON FOR CONSULTATION: Acute renal failure. HISTORY OF PRESENT ILLNESS: Mrs. Soliz is a 46-year-old female with multiple chronic medical problems including history of diabetes, hypertension, dyslipidemia, factor V Leiden with recurrent deep venous thrombosis (DVT), morbid obesity, obstructive sleep apnea, chronic obstructive pulmonary disease (COPD), fibromyalgia, bipolar disorder, and temporal lobe seizures. She presented to the emergency room with left foot ulcer and she is admitted with cellulitis and diabetic foot ulcer. She received Toradol for pain control in addition to antibiotics. Her creatinine was 1.10 on admission, which increased to 1.45 yesterday and 3.45 today. The patient has been oliguric for last 2 days. A nephrology consultation was requested and the patient is seen this evening. PAST MEDICAL AND SURGICAL HISTORY: The patient has a multitude of chronic medical problems including the following: Diabetes, hypertension, dyslipidemia, COPD, obstructive sleep apnea, morbid obesity, history of DVT with factor V Leiden deficiency, history of fibromyalgia, lumbar spinal stenosis, bipolar disorder, anxiety, psoriasis, spina bifida occulta, temporal lobe seizures, hiatal hernia, fatty liver, possible Crohn's disease and gastroesophageal reflux disease. She also has diabetic neuropathy and restless legs syndrome. PAST SURGICAL HISTORY: Significant for cholecystectomy, cervical disk surgery with fusion, hysterectomy, right breast lumpectomy, appendectomy, Port-a-Cath placement, history of carpal tunnel release and ulnar release, multiple diagnostic laparoscopies, bilateral temporomandibular joint surgery and skin lesions removal. ALLERGIES OR INTOLERANCES: The patient has allergy to PENICILLIN, SULFA, TRICOR, GLUCOPHAGE, LIPITOR, ZOCOR and LATEX. MEDICATIONS: Her home medications include albuterol, alprazolam, amitriptyline, atenolol, benazepril, cephalexin, chlorthalidone, Cymbalta, Lasix, Humalog insulin, loperamide, Reglan, omeprazole, Trileptal, Lyrica, Seroquel, ranitidine, Requip, spironolactone, Toujeo insulin, trazodone, Coumadin, and Montelukast. PERSONAL AND SOCIAL HISTORY: The patient is a former smoker who quit about 3 months ago. She denies any alcohol or drug use. FAMILY HISTORY: Negative for any kidney problems. REVIEW OF SYSTEMS: The patient denies any fever or chills. Ears, nose and throat are unremarkable. Cardiovascular system is negative for dyspnea or chest pain. Respiratory system negative for cough or hemoptysis. Gastrointestinal system is significant for recurrent vomiting. Genitourinary system is significant for urinary retention and decreased urine output for last 48 hours. She denies any hematuria or kidney stones. Musculoskeletal system is significant for left foot ulcer and cellulitis. She has chronic musculoskeletal problems as outlined in past medical history. Endocrine system is significant for uncontrolled diabetes. Psychosocial system is significant for bipolar disorder and anxiety. Neurological system is significant for temporal lobe seizures and peripheral neuropathy. Hematological system is significant for recurrent DVT and factor V Leiden deficiency. Skin is significant for cellulitis of left foot. There is an ulcer at the bottom of foot. Other systems reviewed and are unremarkable. PHYSICAL EXAMINATION: Morbidly obese lady lying in the bed without any acute distress. Temperature is 97 degrees Fahrenheit, heart rate 60 per minute and respiratory rate 18 per minute. Blood pressure 116/68 mmHg and oxygen saturation 99% on room air. Head is atraumatic. Pupils are equal and reactive to light and sclera is anicteric. There is no oral thrush or ulcers. Ears, nose and throat are unremarkable. Neck is supple and without any jugular venous distention (JVD) or thyroid enlargement. Trachea is midline. Heart sounds are regular and lungs clear to auscultation. Abdomen: Soft, somewhat protuberant and without any palpable organomegaly. Bowel sounds are normal. Extremities have no cyanosis or clubbing. She has an ulcer at the bottom of left foot with some mild cellulitis. There is no purulent drainage at this time. Neurologically, she is awake, alert and oriented times three. LABORATORY DATA: On admission, her BUN was 12 and creatinine 1.1. Sodium was 133 and potassium 4.2. Glucose was 565. Today, sodium 136 and potassium 4.2. BUN 31 and creatinine 3.45. Glucose 329 and calcium 8.1. WBC count is 7.2, hemoglobin 10.7 and hematocrit 32.0. Platelets 202. INR is 1.99. Urinalysis done at the time of my visit showed only 1+ protein and 3+ glucose. She has only 4 WBCs and 7 RBCs. Renal ultrasound showed 12.4 cm right kidney and 13.0 cm left kidney without any hydronephrosis. PROBLEMS: 1. Acute renal failure superimposed on chronic kidney disease. The patient probably has mild underlying chronic kidney disease, which could be related to diabetic nephropathy as her kidneys are normal in size. Superimposed acute renal failure is most likely related to combination of factors. She reports recurrent vomiting and could have been volume depleted. In addition, she was on angiotensin-converting enzyme (MAXINE) inhibitor and also developed cellulitis with the fever and left foot ulcer. She was given Toradol injection in the emergency room, which may have all contributed to her acute kidney injury. She also had urinary retention and has been oliguric for last 48 hours. I agree with intravenous (IV) normal saline at 100 mL/h for hydration. Her kidney function is likely to improve in next 24-48 hours. MAXINE inhibitor has already been stopped and I recommend to avoid any use of nonsteroidal antiinflammatory drugs (NSAIDs). 2. Diabetes. Her diabetes has also been uncontrolled, which may have contributed to her volume depletion due to loss with diuresis. Probably this is related to left foot cellulitis and infection. Now her blood sugars are somewhat better controlled today. I recommend aggressive control of diabetes in view of ongoing infection in her foot. 3. Hypertension. At present, we will keep her off MAXINE inhibitor and can use calcium channel calin and beta calin as needed for control of her hypertension. She seems to be doing well so far. 4. Left foot cellulitis and diabetic foot ulcer. The patient is receiving cefotetan 1 gram every 12 hours. Recommend to avoid any nephrotoxic antibiotics and dose adjust for her renal failure. I thank you for involving me in the care of Mrs. Soliz. We will follow her along with you.
[2016-11-01 06:10] LABS: BASO % 0.4 % (0.0-1.0); EOS # 0.2 K/mm3 (0.0-0.50); EOS % 2.1 % (0.0-3.0); LARGE UNSTAINED CELL # 0.3 K/mm3 (0.0-0.4); LARGE UNSTAINED CELL % 4.2 % (0.0-4.0); LYMPH # 1.7 K/mm3 (1.5-4.5); LYMPH % 21.8 % (24.0-44.0); MEAN CORPUSCULAR HEMOGLOBIN 29.7 pg (27.0-33.0); MEAN CORPUSCULAR HGB CONC 34.9 g/dl (32.0-36.5); MEAN CORPUSCULAR VOLUME 85.1 fl (80.0-96.0); MONO # 0.4 K/mm3 (0.0-0.8); MONO % 4.9 % (0.0-5.0); NEUTROPHILS # 5.2 K/mm3 (1.8-7.7); NEUTROPHILS % 66.6 % (36.0-66.0); PLATELET COUNT, AUTOMATED 196 k/mm3 (150-450); WHITE BLOOD COUNT 7.8 K/mm3 (4.0-10.0)
[2016-11-01 06:15] LABS: INR 3.87
[2016-11-01 06:38] LABS: CALCIUM LEVEL 7.8 MG/DL (8.5-10.1); CREATININE FOR GFR 4.16 MG/DL (0.55-1.02); GLOMERULAR FILTRATION RATE 12.2 (>58); POTASSIUM SERUM 4.3 MEQ/L (3.5-5.1)
--- NOTE | 2016-11-01 07:47 | IPNPDOC ---
Assessment/Plan Date Seen The patient was seen on 11/01/16. Problems Problems: (1) Acute kidney failure Status: Acute Response to Treatment: Worse Problem Specific Plan: Consult Specialist Problem Text: Cr. of 4.16 noted today. Nephrology following. IVF: NS at 100 cc per hour. MAXINE on hold. Urine output remains low. Bishop in place. (2) Cellulitis of left foot Status: Acute Problem Text: s/p bedside debridement with Dr. Guerra this am. Cefotan 1 gram IV bid Day #3 (3) Diabetic foot ulcer Status: Acute Problem Text: s/p bedside debridement with Dr. Guerra this am. Cefotan 1 gram IV bid Day #3 (4) Confusion Status: Resolved Problem Text: s/p episode of confusion. ? related to opioid use. Will monitor. (5) Diabetes mellitus Status: Chronic Response to Treatment: Uncontrolled Problem Specific Plan: Monitor Clinically (6) HTN (hypertension) Status: Chronic Response to Treatment: Stable Problem Specific Plan: Monitor Clinically (7) Asthma Status: Chronic Response to Treatment: Stable (8) Bipolar disorder Status: Chronic Response to Treatment: Stable Problem Specific Plan: Monitor Clinically (9) Narcotic dependence Status: Chronic (10) Obesity Status: Chronic (11) Recurrent deep vein thrombosis (DVT) Status: Acute Problem Text: INR 3.87. Will HOLD coumadin. Repeat INR in am. Plan / VTE VTE Prophylaxis Ordered?: Yes (coumadin. daily INR) Plan / Urinary Catheter Reason for insertion/continuin: Acute obstruct/retention Plan Plan Text Attending note: I saw and evaluated the patient, and agree with the plan of care as discussed and documented in the note. Rhianna Acevedo MD Subjective Review of Systems CC/HPI The patient is a 46-year-old female admitted with a reason for visit of Cellulitis/Diabetic Foot Ulcer. Events since last encounter S/p episode of hallucination, confusion at approximately 2300 last evening. Occurred shortly after receiving pain medication. Slept after episode and has had no further difficulties per nursing staff. Poor IV access. c/o Left foot pain. S/p debridement at the bedside by Dr. Guerra, podiatry. Constitutional: Denies: Chills, Fever ENT: Denies: Head Aches Skin: Denies: Rash Pulmonary: Denies: Cough, Dyspnea Cardiovascular: Denies: Chest Pain, Palpitations Gastrointestinal: Denies: Abdominal Pain, Constipation, Diarrhea, Nausea, Vomiting Genitourinary: Reports: Other Symptoms (low urine output. Bishop in place. ) Endocrine: Reports: Polydipsia, Polyphagia Psych: Reports: Mood Normal, Other Psych (episode of confustion) Objective Physical Examination General Exam: Positive: Alert, No Acute Distress ENT Exam: Positive: Atraumatic Neck Exam: Positive: Supple, Negative: JVD Chest Exam: Positive: Clear to auscultation, Normal air movement Heart Exam: Positive: Normal S1, Normal S2, Rate Normal Abdomen Exam: Positive: Normal bowel sounds, Soft, Negative: Tenderness Extremity Exam: Positive: Clubbing (LLE with bracing: Charcot foot), Negative: Edema Skin Exam: Positive: Nl turgor and temperature Vital Signs/I&O Vital Signs Date Time Temp Pulse Resp B/P Pulse Ox O2 Delivery O2 Flow Rate FiO2 11/01/16 06:00 96.4 55 14 102/55 91 Room Air I&O- Last 24 Hours up to 6 AM 11/01/16 06:00 Intake Total 4710 ml Output Total 500 ml Balance 4210 ml Laboratory Data Labs 24H Laboratory Tests 2 10/31/16 12:01: Bedside Glucose (Misc Panel) 311H 10/31/16 16:54: Urine Amorphous Sediment SMALLH, Urine Appearance HAZY, Urine Color YELLOW, Urine pH 5.0, Urine Specific [place] 1.014, Urine Protein 1+H, Urine Glucose (UA ) 3+H, Urine Ketones TRACEH, Urine Urobilinogen 0.2, Urine Bilirubin NEGATIVE, Urine Leukocyte Esterase NEGATIVE, Urine Bacteria (Auto) NEGATIVE, Urine Blood NEGATIVE, Urine Calcium Carbonate Cryst(Auto) , Urine Calcium Oxalate Cryst ( Auto) , Urine Calcium Phosphate Jennifer (Auto) , Urine Cellular Casts , Urine Cystine Crystals , Urine Granular Casts (Auto) , Urine Hyaline Casts (Auto) 0, Urine Leucine Crystals , Urine Mucus (Auto) SMALL, Urine Nitrite NEGATIVE, Urine Oval Fat Bodies (Auto) , Urine RBC (Auto) 7H, Urine Renal Epithelial Cells , Urine Sperm (Auto) , Urine Squamous Epithelial Cells 1, Urine Transitional Epithelial Cells , Urine Trichomonas (Auto) , Urine Triple Phosphate Cryst (Auto) , Urine Tyrosine Crystals , Urine Uric Acid Crystals ( Auto) , Urine WBC (Auto) 4H, Urine Waxy Casts (Auto) , Urine Yeast-Like Cells ( Auto) LARGEH 10/31/16 17:22: Bedside Glucose (Misc Panel) 179H 10/31/16 19:59: Bedside Glucose (Misc Panel) 265H 11/01/16 05:47: Anion Gap 10, White Blood Count 7.8, Red Blood Count 3.41L, Hemoglobin 10.1L, Hematocrit 29.0L, Mean Corpuscular Volume 85.1, Mean Corpuscular Hemoglobin 29.7 , Mean Corpuscular Hemoglobin Concent 34.9, Red Cell Distribution Width 14.0, Platelet Count 196, Neutrophils (%) (Auto) 66.6H, Lymphocytes (%) (Auto) 21.8L, Monocytes (%) (Auto) 4.9, Eosinophils (%) (Auto) 2.1, Basophils (%) (Auto) 0.4, Neutrophils # (Auto) 5.2, Lymphocytes # (Auto) 1.7, Monocytes # (Auto) 0.4, Eosinophils # (Auto) 0.2, Basophils # (Auto) 0.0, Blood Urea Nitrogen 48#H, Creatinine 4.16H, Sodium Level 139, Potassium Level 4.3, Chloride Level 105, Carbon Dioxide Level 24, Calcium Level 7.8L, Glomerular Filtration Rate 12.2L, Large Unclassified Cells # 0.3, Large Unclassified Cells % 4.2H, Prothromb Time International Ratio 3.87, Prothrombin Time 38.0H CBC/BMP Laboratory Tests 11/01/16 05:47 Calcium Level 7.8 L, Red Blood Count 3.41 L, Mean Corpuscular Volume 85.1, Mean Corpuscular Hemoglobin 29.7, Mean Corpuscular Hemoglobin Concent 34.9, Red Cell Distribution Width 14.0, Neutrophils (%) (Auto) 66.6 H, Lymphocytes (%) (Auto) 21.8 L, Monocytes (%) (Auto) 4.9, Eosinophils (%) (Auto) 2.1, Basophils (%) ( Auto) 0.4, Neutrophils # (Auto) 5.2, Lymphocytes # (Auto) 1.7, Monocytes # (Auto ) 0.4, Eosinophils # (Auto) 0.2, Basophils # (Auto) 0.0 FSBS Laboratory Tests Test 10/31/16 12:01 10/31/16 17:22 10/31/16 19:59 Range/Units Bedside Glucose (Misc Panel) 311 179 265 70-105 MG/DL Microbiology Microbiology 10/29/16 Blood Culture - Preliminary, Resulted No Growth after 48 hours. All Specime... 10/29/16 Blood Culture - Preliminary, Resulted No Growth after 48 hours. All Specime... Laxmi Hernandez Nov 01, 2016 07:47 RHIANNA ACEVEDO MD Nov 09, 2016 13:48
[2016-11-01] MEDS: SYMBICORT 80/4.5MCG INHALER 6GM INH SCH ×2 (07:55→19:34)
[2016-11-01] MEDS: IPRATROPIUM 0.5MG/ALBUTEROL 2.5MG INH SOL UD 3ML (DUONEB)(J7620) NEB SCH ×3 (07:55→23:39)
[2016-11-01] MEDS ORDERED: ACETAMINOPHEN 500 MG TAB PO PRN (08:00)
[2016-11-01] MEDS: NS 1,000 ML IV SCH ×2 (08:00→17:18)
--- NOTE | 2016-11-01 08:22 | CR ---
DATE: 11/01/2016 CHIEF COMPLAINT: Patient seen for evaluation of infected ulceration on the bottom of her left foot as well as renal failure. She is seen today for evaluation. PAST MEDICAL HISTORY: Diabetes. Hypertension. Dyslipidemia. History of deep venous thrombosis. Morbid obesity. Asthma. Chronic obstructive pulmonary disease. Diabetic neuropathy. Restless leg syndrome. Gastroesophageal reflux disease. Fibromyalgia. Charcot joint changes bilateral. History of previous foot ulcerations. Bipolar disorder. Obsessive compulsive disorder. Anxiety. Hiatal hernia. Fatty liver disease. Factor V Leiden. HOME MEDICATIONS: - Albuterol two puffs every 4 hours - alprazolam 1 mg four times a day for anxiety - amitriptyline 75 mg at bedtime - atenolol 100 mg twice a day - benazepril 40 mg daily - Keflex 500 mg twice a day - chlorthalidone 12.5 mg daily - duloxetine 98 mg daily - Lasix 40 mg - Humalog 200 mg - Reglan 5 mg - Lyrica 300 mg twice a day - omeprazole 40 mg twice a day - Trileptal 600 mg at bedtime - ranitidine 150 mg at bedtime - ropinirole 4 mg at bedtime - spironolactone 25 mg at bedtime - Toujeo 125 units in the morning and 100 units at night - trazodone 100 mg at bedtime - warfarin 1.5 mg daily CHIEF COMPLAINT: The patient is seen at bedside for evaluation of a left foot ulcer, which was infected. The patient was seen previously at my office and had a culture obtained and was placed on renal dose of Keflex 500 mg twice a day. The patient's culture revealed growth of Enterococcus faecalis and Streptococcus group B sensitive to quinolone and vancomycin and penicillin G and ampicillin. Evaluation of the patient's foot ulcer reveals the ulceration to measure 4.3 cm x 3 cm x 0.1 cm in depth. There is a rim of 0.2 cm and 6 cm of erythema up the medial side. Palpation of the wound reveals good granulation tissue base. No deep fluctuance. Charcot joint deformity is noted on the foot. ASSESSMENT: Cellulitis with stage III ulceration and cellulitis left foot. PLAN: Informed consent was obtained and after appropriate time out and site verification utilizing a sterile scalpel, the ulcer was debrided down to the level of the subcutaneous tissues. Orders written to apply Silvadene and a dressing twice a day. The patient's present antibiotic coverage is on cefotetan every 12 hours. Thank you for this consultation.
[2016-11-01] MEDS: DULoxetine 30 MG CAP (CYMBALTA) PO SCH ×2 (08:37→21:10)
[2016-11-01] MEDS: HUMALOG 200 UNIT/ML SQ SCH ×3 (08:42→17:17)
[2016-11-01] MEDS: OMEPRAZOLE 20 MG CAP PO SCH ×2 (08:46→21:09)
[2016-11-01] MEDS: METOCLOPRAMIDE 5 MG TAB PO SCH ×3 (08:46→21:10)
[2016-11-01] MEDS: PREGABALIN 100 MG CAP (LYRICA) PO SCH ×2 (08:46→21:09)
[2016-11-01] MEDS: SENOKOT S TAB PO SCH ×2 (08:46→21:11)
[2016-11-01] MEDS: TOUJEO 300 UNIT/ML SQ SCH ×2 (08:47→21:12)
[2016-11-01] MEDS: ATENOLOL 50 MG TAB PO SCH ×2 (08:50→21:10)
[2016-11-01] MEDS: NYSTATIN 100,000 UNITS/GM TOPICAL PWD 15 GM TOP SCH ×3 (08:52→21:13)
[2016-11-01] MEDS ORDERED: CEFOTETAN 1 GM IM SCH (09:00)
[2016-11-01] MEDS ORDERED: PHYTONADIONE 5 MG TAB PO ONE (12:30)
--- NOTE | 2016-11-01 13:25 | IPNPDOC ---
Date/Time Seen The patient was seen on 11/01/16 at 13:04. Progress Note DATE OF SERVICE: 11/01/2016 SUBJECTIVE: Patient was seen this morning at bedside. She reports that she is having pain. States that her back is bothering her and she is not able to be on any pain medication because it was discontinued by primary team due to renal dysfunction. She also reports an episode of nonbloody emesis this morning. She had blood on her shirt from her IV that was accidentally pulled out. Otherwise no acute complaints. Brief review of systems is negative for abdominal pain, diarrhea, fever, chills , chest pain, shortness of breath. She reports that she continues to have decreased urinary output and currently has a Bishop in place. No headache or dizziness. OBJECTIVE: Vital Signs Date Time Temp Pulse Resp B/P Pulse Ox O2 Delivery O2 Flow Rate FiO2 11/01/16 08:50 69 118/60 11/01/16 06:00 96.4 14 91 Room Air I&O- Last 24 Hours up to 6 AM 11/01/16 06:00 Intake Total 4710 ml Output Total 600 ml Balance 4110 ml PHYSICAL EXAMINATION: GENERAL: Patient is alert and oriented, in no acute distress.. HEENT: Normocephalic, atraumatic. Extraocular muscles are intact. Moist mucosa. NECK: Supple. Jugular veins are not significantly elevated. HEART: Normal S1-S2. Regular rate and rhythm. No murmurs, gallops or rubs. LUNGS: Clear to auscultation bilaterally. ABDOMEN: Obese. Soft. Nontender. Bowel sounds are present. EXTREMITIES: +1 lower extremity edema. She also has significant left foot edema with cellulitis and stage III ulcer of the left foot. NEUROLOGIC: No focal deficits. LABORATORY DATA: 11/01/16 05:47 Red Blood Count 3.41 L, Mean Corpuscular Volume 85.1, Mean Corpuscular Hemoglobin 29.7, Mean Corpuscular Hemoglobin Concent 34.9, Red Cell Distribution Width 14.0, Anion Gap 10, Calcium Level 7.8L, Glomerular Filtration Rate 12.2L, Large Unclassified Cells # 0.3, Large Unclassified Cells % 4.2H, Prothromb Time International Ratio 3.87, Prothrombin Time 38.0H ASSESSMENT/PLAN: 1. Acute renal failure superimposed on chronic kidney disease. This acute injury is likely multifactorial secondary to GI loss via vomiting, fever with associated infection, and medications. MAXINE inhibitor and Toradol have been discontinued. Renal ultrasound did not show any acute findings such as hydronephrosis. Urinalysis was significant for 1+ protein, no blood. This mild elevation in protein is likely secondary to her acute injury and does not indicate a glomerular process. Her respiratory status is stable. She does not have any compelling evidence of acidosis and electrolytes are stable. She does not have any uremic signs. There is no acute indication for dialysis. She was treated with IV fluids which we will now discontinue as she appears to be retaining fluid. She does continue to be oliguric which we will have to monitor closely. It is likely that her renal function will start turning around once it has reached its plateau. Avoid nephrotoxic medications. 2. Anemia. Hemoglobin is currently stable. No intervention needed at this time. 3. Hypertension. Blood pressure stable. MAXINE inhibitor has been discontinued. If blood pressure becomes elevated, calcium channel calin or beta calin can be added. 4. Left foot cellulitis and diabetic foot ulcer. The patient is receiving cefotetan 1 gram every 12 hours. Left foot ulcer was to debrided this morning. Recommend to avoid any nephrotoxic antibiotics. 5. Chronic pain. Tramadol could be used for pain control. GME ATTESTATION GME ATTESTATION My preceptor for this patient encounter was physically present in the building during the encounter and was fully available. As needed, all aspects of the patient interview, examination, medical decision making process, and medical care plan development were reviewed and approved by the preceptor. Preceptor is aware and concurs with the plan as stated in the body of this note and will attest to such by his/her cosignature. ATTENDING NOTE Nephrology Attending: Pt was seen and examined with the resident during work rounds. Oliguric MELODY. D/ C IV fluids. Monitor I/O. Avoid NSAIDS,MAXINE and IV contrast at this time. EMMANUEL LOPEZ DO Nov 01, 2016 13:25 ELISA CURTIS MD Nov 01, 2016 21:52
[2016-11-01 15:33] LABS: INR 4.14
--- NOTE | 2016-11-01 16:25 | REP ---
PICC LINE INSERTION WITH SITE-RITE: The procedure was performed under the direct supervision of Dr. Ruiz. The risks and benefits of the procedure were explained to the patient and informed consent was obtained. The right basilic vein was localized using ultrasound guidance. The skin was prepped and draped in a sterile fashion. 2% Lidocaine was used as a local anesthetic. Using ultrasound guidance the basilic vein was cannulated however, the guidewire could not be advanced much beyond the end of the needle. This may be due to venous spasm, tortuosity of the vessels or possible occlusion. Because of the technical limitations of the fluoroscopic room we were unable to see the end of the needle or the guidewire. Multiple attempts were made to advance the guidewire however, they were unsuccessful. 15 seconds of fluoroscopic time was utilized for this procedure. Reviewed by DREW Marin 11/02/2016 01:38 PEdited and Signed by Obdulio Ruiz MD 11/02/2016 02:35 P
[2016-11-01] MEDS: MONTELUKAST 10 MG TAB PO SCH (21:08)
[2016-11-01] MEDS: rOPINIRole 1MG TAB PO SCH (21:09)
[2016-11-01] MEDS: OXcarbazepine 300 MG TAB PO SCH (21:11)
[2016-11-01] MEDS: traZODone 100 MG TAB PO SCH (21:11)
[2016-11-01] MEDS: QUEtiapine FUMARATE 200 MG TAB PO SCH (21:11)
[2016-11-01] MEDS: FAMOTIDINE 20 MG TAB PO SCH (21:11)
[2016-11-01] MEDS: SILVER SULFADIAZINE 1% CR 50 GM JAR TOP SCH (21:15)
[2016-11-01] MEDS ORDERED: cefoTEtan DISODIUM 1 GM in D5W MINI-BAG PLUS 50 ML IV SCH (22:00)
[2016-11-02] VITALS (14 sets, daily range): BP systolic 84–129; BP diastolic 51–74
[2016-11-02] MEDS: NS 1,000 ML IV SCH ×2 (01:35→09:00)
[2016-11-02 06:20] LABS: BASO % 0.2 % (0.0-1.0); EOS # 0.2 K/mm3 (0.0-0.50); EOS % 2.7 % (0.0-3.0); LARGE UNSTAINED CELL # 0.4 K/mm3 (0.0-0.4); LYMPH # 1.7 K/mm3 (1.5-4.5); LYMPH % 24.9 % (24.0-44.0); MEAN CORPUSCULAR HEMOGLOBIN 29.6 pg (27.0-33.0); MONO # 0.4 K/mm3 (0.0-0.8); NEUTROPHILS # 4.4 K/mm3 (1.8-7.7); NEUTROPHILS % 62.3 % (36.0-66.0); PLATELET COUNT, AUTOMATED 213 k/mm3 (150-450); RED CELL DISTRIBUTION WIDTH 14.1 % (11.5-14.5)
[2016-11-02 06:25] LABS: INR 2.98
[2016-11-02 06:33] LABS: CREATININE FOR GFR 3.78 MG/DL (0.55-1.02); GLOMERULAR FILTRATION RATE 13.6 (>58); POTASSIUM SERUM 3.9 MEQ/L (3.5-5.1)
[2016-11-02] MEDS: HUMALOG 200 UNIT/ML SQ SCH ×3 (07:30→17:30)
[2016-11-02] MEDS: IPRATROPIUM 0.5MG/ALBUTEROL 2.5MG INH SOL UD 3ML (DUONEB)(J7620) NEB SCH ×3 (08:00→23:41)
[2016-11-02] MEDS: SYMBICORT 80/4.5MCG INHALER 6GM INH SCH ×2 (08:39→20:49)
[2016-11-02] MEDS: SILVER SULFADIAZINE 1% CR 50 GM JAR TOP SCH (09:00)
[2016-11-02] MEDS: SENOKOT S TAB PO SCH ×2 (09:00→21:46)
[2016-11-02] MEDS: METOCLOPRAMIDE 5 MG TAB PO SCH ×3 (09:00→21:45)
[2016-11-02] MEDS: PREGABALIN 100 MG CAP (LYRICA) PO SCH ×2 (09:00→21:46)
[2016-11-02] MEDS: DULoxetine 30 MG CAP (CYMBALTA) PO SCH ×2 (09:00→21:44)
[2016-11-02] MEDS: OMEPRAZOLE 20 MG CAP PO SCH ×2 (09:00→21:45)
[2016-11-02] MEDS: NYSTATIN 100,000 UNITS/GM TOPICAL PWD 15 GM TOP SCH ×3 (09:00→21:47)
[2016-11-02] MEDS: TOUJEO 300 UNIT/ML SQ SCH ×2 (09:00→21:50)
[2016-11-02] MEDS ORDERED: NS 1,000 ML IV STA (09:22)
[2016-11-02] MEDS ORDERED: NS 1,000 ML IV SCH (09:30)
[2016-11-02 09:37] LABS: ABG BASE EXCESS -5.6 (-2.0-2.0); ABG HCO3 19.7 MEQ/L (22.0-26.0); ABG PARTIAL PRESSURE CO2 37.5 mmHg (35.0-45.0); ABG PARTIAL PRESSURE O2 95.2 mmHg (75.0-100.0); ABG STANDARD HCO3 19.9 MEQ/L (22.0-26.0); ABG TOTAL CO2 20.8 MEQ/L (22.0-29.0); ABG pH (ARTERIAL) 7.338 UNITS (7.350-7.450)
[2016-11-02] MEDS ORDERED: SODIUM CHLORIDE 0.9% 1000 ML IV ONE (09:45)
--- NOTE | 2016-11-02 10:23 | IPN ---
DATE: 11/02/2016 46-year-old female who was admitted with diagnosis of lower extremity cellulitis secondary to diabetic foot ulcer to the left lower extremity. The patient was also noted to have acute kidney injury. She was given Ketorolac for pain management and also received her MAXINE inhibitor. Both were stopped and the patient was started on IV fluids. The patient's creatinine continued to rise. Nephrology continued to consult on patient. Nephrotoxic drugs were stopped. The patient's Cefotan was decreased from 1 gram every 12 hours to 1 gram every 24 hours secondary to her renal function. On 10/31/2016 at approximately 11:00 p.m., the patient had an episode of confusion and disorientation. This was shortly after receiving her opioid medication. The patient's opioids and benzodiazepines were stopped and the patient was monitored. Unfortunately, the patient received atenolol 100 mg on the morning of 11/01/2016 despite recurrent soft blood pressures and some bradycardia. The patient was continued to be monitored. The patient had significant issues with intravenous access. Peripherally inserted central catheter (PICC) line was attempted without success. #22 gauge IV was successful after several hours of attempts and is located to the right wrist. IV fluids were started, normal saline at 125 mL per hour. Overnight, on 11/02/2016, at approximately 5:00 a.m., the patient stood to go to the restroom; however, her knees buckled and she went softly down to the floor, landing on her buttocks with no further pain. On evaluation this morning, I was called into the room, as the patient was pale, diaphoretic, eyes rolling in her head, and appeared confused. The patient did answer questions appropriately, but stated that she felt very woozy, dizzy and confused. Speech was slightly slurred. The patient denied taking any of her home opioid or benzodiazepine medications. Denies taking any other medications or substances. On entrance to the room, the patient's oxygen saturation was in the lower 80s with heart rates 40 to 50 range. Chest x-ray, ABG, EKG, cardiac injury profile and troponins were ordered. Results are pending. It seemed appropriate to transfer the patient to intensive care unit (ICU) for further evaluation and care. Dr. Dunn was consulted and is aware of the patient's transfer to the intensive care unit (ICU). The patient's INR was significantly elevated and is awaiting more invasive central line placement by interventional radiology; however, we are waiting for INR to come down, it was as high as 4.1 yesterday. She did receive vitamin K by mouth times one. INR today is 2.89. PAST MEDICAL HISTORY: Significant for: 1. Poorly controlled diabetes since the age of 26. The patient follows with [facility]. 2. Charcot foot bilaterally. 3. Bilateral diabetic foot ulcers. 4. Recurrent bouts of Clostridium (C.) difficile with irritable bowel syndrome and questionable Crohn's disease. 5. Lumbar spondylosis. 6. Chronic low back pain, followed by pain clinic. 7. Fatty liver disease. 8. Hypertension. 9. Asthma. 10. Bipolar. 11. Obsessive compulsive disorder (OCD). 12. Agoraphobic type anxiety. 13. Fibromyalgia. 14. Spina bifida occulta. 15. Psoriasis. 16. Abdominal adhesions. 17. Temporal lobe seizure disorder. 18. Gastroesophageal reflux disease (GERD) with hiatal hernia. 19. Herpes simplex II. 20. Factor V Leiden deficiency with recurrent pulmonary embolus and deep vein thrombosis (DVT). 21. Recurrent methicillin resistant Staphylococcus aureus (MRSA) infections. PAST SURGICAL HISTORY: Significant for: 1. Cholecystectomy. 2. Cervical discectomy. 3. Hysterectomy. 4. Lumpectomy of the right breast. 5. Skin lesion removal in 2004. 6. Multiple diagnostic laparoscopies. 7. Venous Port-A-Cath in left chest times two, both of which became significantly infected. 8. Appendectomy. 9. Incision of abscesses wounds. 10. Ulnar nerve release to the right arm and hand. 11. Stool transplant. ASSESSMENT: 1. Hypotension with bradycardia, diaphoresis and hypoxemia. ABG, CIP, troponin , chest x-ray and EKG results are pending. 2. Bilateral lower extremity Charcot foot with recent left lower extremity foot ulceration with cellulitis and infection. The patient had a positive culture for Enterococcus faecalis and Group B streptococcus on culture. 3. Acute kidney injury. 4. Uncontrolled diabetes. 5. History of hypertension. 6. History of MRSA infections in the past. 7. History of obstructive sleep apnea. 8. History of chronic obstructive pulmonary disease (COPD). 9. History of gastroesophageal reflux disease (GERD). 10. Irritable bowel syndrome with questionable Crohn's disease. PLAN: The patient will be transferred to intensive care unit (ICU) under the care of Dr. Ben Dunn, along with comanagement with family medicine service. The patient is agreeable to transfer and is aware of her current condition. Attending note: I saw and evaluated the patient, and agree with the plan of care as discussed and updated. Patient had MELODY, and has been on continued beta calin. Noted to be bradycardic, which may be due to buildup of beta calin from reduced renal clearance. Hal Acevedo MD [facility]
--- NOTE | 2016-11-02 10:46 | CCN ---
DATE: 11/02/2016 CRITICAL CARE NOTE: I was called to see this 46-year-old female with hypotension, hypoxemia admitted on 10/29 with pain in her left leg and swelling with associated temperature. She was felt to have an ulcer. She received IV antibiotic therapy and underwent debridement yesterday. This morning, she had stumbled and on recheck of her vital signs, her blood pressure was low and oxygen saturations were low. She has an extensive past medical history including diabetes, hypertension, prothrombotic state with prior history of deep venous thrombosis (DVT), pulmonary embolism (PE), (CTA negative 05/01. Multiple negative ultrasound studies. Axillary clot noted 2007 on the left), obesity, asthma, chronic obstructive pulmonary disease (COPD) secondary to tobacco use, obstructive sleep apnea syndrome, gastroesophageal reflux disease, bipolar disease, possible Crohn's colitis, seizure disorder, hiatal hernia, poor compliance and chronic kidney disease. Following her admission, laboratory studies identified an elevated creatinine. At bedside, she is ill-appearing and mildly somnolent. Her temperature is 98, pulse rate is now 60. Respirations are 18, blood pressure is up to 82/40. Oxygen saturation 94% on 2 liters of oxygen via nasal cannula. PHYSICAL EXAMINATION: Her oral and nasal mucosa are pink. There is no stridor. No adenopathy in the neck. Jugular veins are not able to be appreciated. Carotid upstroke sluggish. Heart sounds regular, somewhat distant, slow. Breath sounds diminished but clear. No focal sounds. Abdomen is soft and obese. Extremities: Left foot is wrapped. Left arm shows chronic edema. DIAGNOSTIC STUDIES: White cell count is 7.0, hemoglobin 10.1, hematocrit 29, platelet count 213,000. Sodium is 143, potassium 3.9, chloride 109, CO2 24, BUN 58, creatinine 3.78, glucose 95, INR 2.98. Arterial blood gases were just performed and show a pH 7.34, pCO2 37, pO2 95. Chest x-ray shows clear lung juarez. The primary problem requiring critical attention is beta calin toxicity precipitated by acute kidney injury with decreased clearance. If the patient's heart rate or blood pressure drop again, will initiate treatment with atropine. She has responded nicely to IV saline. If no response to atropine, glucagon and calcium salts would be an option. If the patient's blood pressure becomes low once again, a central line may be necessary for infusion of pressors, high-dose insulin and glucose or lipid salvage. I find no objective evidence for sepsis or other causes of bradycardia and hypotension. 56 minutes spent in the provision of bedside critical care and coordination.
--- NOTE | 2016-11-02 12:07 | REP ---
AP portable upright chest radiograph 11/02/2016 Indication: Shortness of breath, change in consciousness Comparison: PA and lateral chest 08/30/2016 and , CTA chest 04/22/2016 Findings: Cardiac silhouette is of normal size. Right paratracheal fullness is consistent with known mediastinal adenopathy, and seen on CTA chest 04/22/2016. There are diminished lung volumes with minimal bibasilar atelectasis Impression: Cardiac silhouette is of normal size Right paratracheal fullness consistent with known mediastinal adenopathy, as noted on prior CTA chest 04/22/2016 Minimal bibasilar atelectasis Signed by Terese Young MD 11/02/2016 11:59 A
--- NOTE | 2016-11-02 14:40 | IPNPDOC ---
Date/Time Seen The patient was seen on 11/02/16 at 14:23. Progress Note DATE OF ENCOUNTER: 11/02/2016 SUBJECTIVE: Patient was seen this morning at bedside in the ICU. She reports that she had an episode of hypoxia and hypotension this morning. She was found to be dizzy and confused saturating in the 80s with heart rate in the 40s to 50s. She was also hypotensive and subsequently transferred to the ICU. It appears that she also had a fall overnight while going to the bathroom. In seen in the ICU, she reported that she was starting to feel better. She was laying in bed eating her breakfast. Blood pressures were stable with systolic in the 90s with a map of 67. Heart rate was at 55. Review of systems is positive for dizziness, lightheadedness, mild confusion. She has chronic back pain and chronic GI upset with nausea and irritable bowel. Negative for vomiting, abdominal pain, diarrhea, fever, chills, chest pain, shortness of breath. She has continued decreased urinary output and currently has a Bishop in place. OBJECTIVE: Vital Signs Date Time Temp Pulse Resp B/P Pulse Ox O2 Delivery O2 Flow Rate FiO2 11/02/16 12:00 96.2 52 15 84/53 99 Nasal Cannula 1.0 I&O- Last 24 Hours up to 6 AM 11/02/16 05:59 Intake Total 2525 ml Output Total 600 ml Balance 1925 ml GENERAL: Patient is alert and oriented, in no acute distress. Laying in the bed comfortably. HEENT: Normocephalic, atraumatic. Extraocular muscles are intact. Pupils are equally round and reactive to light. Moist mucosa. NECK: Supple. No significant jugular venous distention could be appreciated. HEART: Normal S1-S2. Regular rate and rhythm. No murmurs, gallops or rubs. LUNGS: Clear to auscultation bilaterally. No use of accessory muscles. ABDOMEN: Obese. Soft. Nontender. Bowel sounds are present. No rebound, guarding or rigidity. EXTREMITIES: +1 lower extremity edema. She also has significant left foot edema with cellulitis and stage III ulcer of the left foot. SKIN: Warm and dry. Good skin turgor. NEUROLOGIC: No focal deficits. Cranial nerves II through XII are grossly intact. Moving all extremities. LABORATORY DATA: 11/02/16 06:04 Red Blood Count 3.43 L, Mean Corpuscular Volume 87.0, Mean Corpuscular Hemoglobin 29.6, Mean Corpuscular Hemoglobin Concent 34.0, Red Cell Distribution Width 14.1, Prothromb Time International Ratio 2.98, Prothrombin Time 31.0H, Anion Gap 10, Calcium Level 8.0L, Glomerular Filtration Rate 13.6L ASSESSMENT/PLAN: 1. Acute renal failure superimposed on chronic kidney disease. MAXINE inhibitor and Toradol have been discontinued. Avoid any further nephrotoxic medications. Renal ultrasound did not show any acute findings. It appears that her creatinine is improving. She does not have significant acidosis and electrolytes are stable. No uremic signs. There is no acute indication for dialysis. Output should be monitored closely, as she continues to be oliguric. She was given a fluid bolus earlier due to hypotension. No more IV fluid should be given unless needed to maintain hemodynamic stability, as she is retaining fluid and doesn't have adequate urinary output. We'll continue to monitor her renal function as it does appear to be improving and we anticipate continued improvement. 2. Hypotension and bradycardia, likely secondary to atenolol toxicity with acute renal failure. She has received a fluid bolus and blood pressure did respond. Given that her blood pressure is stable and MAP is above 65, will discontinue maintenance fluids. She does appear to be getting volume overloaded at this time. Small fluid boluses can be given as needed only to maintain blood pressure. Heart rate is also improved. 3. Anemia. Hemoglobin is currently stable. No intervention needed at this time. 4. Hypertension. Blood pressure is actually soft. Continue to monitor now that MAXINE inhibitor and atenolol have been discontinued. If needed, calcium channel calin can be given. 4. Left foot cellulitis and diabetic foot ulcer. The patient is receiving cefotetan 1 gram daily. Left foot ulcer was to debrided yesterday. GME ATTESTATION GME ATTESTATION My preceptor for this patient encounter was physically present in the building during the encounter and was fully available. As needed, all aspects of the patient interview, examination, medical decision making process, and medical care plan development were reviewed and approved by the preceptor. Preceptor is aware and concurs with the plan as stated in the body of this note and will attest to such by his/her cosignature. ATTENDING NOTE Nephrology Attending: Pt was examined this AM in the ICU. Hold IV fluids. hold Beta blockers. Oliguric MELODY for now. Monitor for renal improvement. No need of CLASSIFIED COPY CONTROL CLERK. EMMANUEL LOPEZ DO Nov 02, 2016 14:40 ELISA CURTIS MD Nov 02, 2016 21:34
[2016-11-02] MEDS: GENTAMICIN SULFATE 0.1% OINT 15 GM TOP SCH ×2 (16:13→21:51)
[2016-11-02] MEDS: MONTELUKAST 10 MG TAB PO SCH (21:45)
[2016-11-02] MEDS: traZODone 100 MG TAB PO SCH (21:45)
[2016-11-02] MEDS: FAMOTIDINE 20 MG TAB PO SCH (21:45)
[2016-11-02] MEDS: rOPINIRole 1MG TAB PO SCH (21:45)
[2016-11-02] MEDS: OXcarbazepine 300 MG TAB PO SCH (21:46)
[2016-11-02] MEDS: QUEtiapine FUMARATE 200 MG TAB PO SCH (21:46)
[2016-11-02] MEDS: PERCOCET 5MG/325MG TAB PO PRN (21:49)
[2016-11-02] MEDS: LIDOCAINE 1% MDV 20ML VIAL IM SCH (22:00)
--- NOTE | 2016-11-02 22:09 | ECGEPIP ---
Stationary ECG Study [facility] Test Date: 2016-11-02 Pat Name: JOSS FORD Department: Room: [place] [address] Gender: F Credit Specialist: ANAYELI : 1970 Requested By: Laxmi MARRUFO Order Number: [id number] Reading MD: Paresh Chan Measurements Intervals [place] Rate: 53 P: 55 MT: 206 QRS: 17 QRSD: 92 T: 58 QT: 428 QTc: 405 Interpretive Statements Sinus bradycardia Nonspecific T wave abnormality Compared to prior tracing of 08/30/2016, heart rate is slower Electronically Signed On 11-02-2016 22:08:57 EST by Paresh Chan
[2016-11-02] MEDS: CEFOTETAN 1 GM IM SCH (23:07)
[2016-11-03] VITALS: BP 120/64
[2016-11-03 04:00] VITALS: BP 99/60
[2016-11-03] MEDS: PERCOCET 5MG/325MG TAB PO PRN ×4 (05:10→20:12)
[2016-11-03 05:12] LABS: BASO # 0.1 K/mm3 (0.0-0.2); BASO % 0.7 % (0.0-1.0); EOS # 0.2 K/mm3 (0.0-0.50); EOS % 1.8 % (0.0-3.0); LARGE UNSTAINED CELL # 0.3 K/mm3 (0.0-0.4); LARGE UNSTAINED CELL % 3.2 % (0.0-4.0); LYMPH # 2.1 K/mm3 (1.5-4.5); LYMPH % 21.8 % (24.0-44.0); MEAN CORPUSCULAR HEMOGLOBIN 29.2 pg (27.0-33.0); MEAN CORPUSCULAR VOLUME 88.4 fl (80.0-96.0); MONO # 0.5 K/mm3 (0.0-0.8); MONO % 6.6 % (0.0-5.0); NEUTROPHILS # 5.5 K/mm3 (1.8-7.7); PLATELET COUNT, AUTOMATED 200 k/mm3 (150-450); RED CELL DISTRIBUTION WIDTH 14.7 % (11.5-14.5); WHITE BLOOD COUNT 8.3 K/mm3 (4.0-10.0)
[2016-11-03 05:18] LABS: INR 2.95
[2016-11-03 05:31] LABS: CALCIUM LEVEL 7.8 MG/DL (8.5-10.1); CREATININE FOR GFR 3.1 MG/DL (0.55-1.02); GLOMERULAR FILTRATION RATE 17.1 (>58); POTASSIUM SERUM 4.1 MEQ/L (3.5-5.1)
[2016-11-03] MEDS: HUMALOG 200 UNIT/ML SQ SCH ×3 (07:40→16:22)
[2016-11-03] MEDS: TOUJEO 300 UNIT/ML SQ SCH ×2 (07:43→21:00)
[2016-11-03 07:47] VITALS: BP 113/64
[2016-11-03] MEDS: IPRATROPIUM 0.5MG/ALBUTEROL 2.5MG INH SOL UD 3ML (DUONEB)(J7620) NEB SCH ×3 (08:00→23:24)
[2016-11-03] MEDS: SYMBICORT 80/4.5MCG INHALER 6GM INH SCH ×2 (08:20→19:38)
[2016-11-03] MEDS: LIDOCAINE 1% MDV 20ML VIAL IM SCH (09:00)
[2016-11-03] MEDS: GENTAMICIN SULFATE 0.1% OINT 15 GM TOP SCH ×2 (09:19→21:35)
[2016-11-03] MEDS: SENOKOT S TAB PO SCH ×2 (09:19→21:37)
[2016-11-03] MEDS: DULoxetine 30 MG CAP (CYMBALTA) PO SCH ×2 (09:19→21:37)
[2016-11-03] MEDS: METOCLOPRAMIDE 5 MG TAB PO SCH ×3 (09:19→21:37)
[2016-11-03] MEDS: OMEPRAZOLE 20 MG CAP PO SCH ×2 (09:20→21:35)
[2016-11-03] MEDS: PREGABALIN 100 MG CAP (LYRICA) PO SCH ×2 (09:20→21:35)
[2016-11-03] MEDS: NYSTATIN 100,000 UNITS/GM TOPICAL PWD 15 GM TOP SCH ×3 (09:20→21:35)
--- NOTE | 2016-11-03 09:36 | IPNPDOC ---
Assessment/Plan Date Seen The patient was seen on 11/03/16. Problems Problems: (1) Acute kidney failure Status: Acute Response to Treatment: Worse Problem Specific Plan: Consult Specialist Problem Text: Cr. of 4.16 noted today. Nephrology following. Fluid stopped. MAXINE on hold. Urine output remains low. Bishop in place. 11/03/2016: IVF stopped. Cr 3.1 today. monitor. Bishop draining. (2) Cellulitis of left foot Status: Acute Problem Text: s/p bedside debridement with Dr. Guerra. Now receiving cefotetan and I am, as she currently lacks IV access. Day 7 cefotetan. (3) Diabetic foot ulcer Status: Acute Problem Text: s/p bedside debridement with Dr. Guerra this am. Cefotan 1 gram IV bid Day #3 (4) Diabetes mellitus Status: Chronic Response to Treatment: Uncontrolled Problem Specific Plan: Monitor Clinically (5) HTN (hypertension) Status: Chronic Response to Treatment: Stable Problem Specific Plan: Monitor Clinically Problem Text: Atenolol on HOLD due to beta calin toxicity in presence of MELODY. Monitor BP and HR. (6) Asthma Status: Chronic Response to Treatment: Stable (7) Confusion Status: Resolved Problem Text: s/p episode of confusion. ? related to opioid use. Will monitor. (8) Bipolar disorder Status: Chronic Response to Treatment: Stable Problem Specific Plan: Monitor Clinically (9) Narcotic dependence Status: Chronic (10) Obesity Status: Chronic (11) Recurrent deep vein thrombosis (DVT) Status: Acute Problem Text: INR 3.87. Will HOLD coumadin. Repeat INR in am. Plan / VTE VTE Prophylaxis Ordered?: Yes (coumadin. daily INR) Plan / Urinary Catheter Reason for insertion/continuin: Acute obstruct/retention Plan Plan Text Attending note: I saw and evaluated the patient, and agree with the plan of care as discussed and documented above. Patient given cortisone tablet of 5 indicate to reverse INR, so she can have PICC line placed. She currently lacks IV access, and IR will not place PICC with supratherapeutic INR. Rhianna Acevedo MD Subjective Review of Systems CC/HPI The patient is a 46-year-old female admitted with a reason for visit of Cellulitis/Diabetic Foot Ulcer. Events since last encounter Transferred to ICU with presumed beat calin toxicity. Slowly improving. no falls, no dizziness. BP stable. HR stable. DEnies c/o. COntinues to have trouble with venous access. Abx given IM overnight. Waiting for INR to come down for IR to place catheter. Constitutional: Denies: Chills, Fever ENT: Denies: Head Aches Pulmonary: Denies: Cough, Dyspnea Cardiovascular: Denies: Chest Pain, Palpitations Gastrointestinal: Denies: Nausea, Vomiting Genitourinary: Reports: Other Symptoms (Bishop draining), Denies: Dysuria, Frequency Objective Physical Examination General Exam: Positive: Alert, No Acute Distress ENT Exam: Positive: Atraumatic Neck Exam: Positive: Supple, Negative: JVD Chest Exam: Positive: Clear to auscultation, Normal air movement Heart Exam: Positive: Normal S1, Normal S2, Rate Normal Abdomen Exam: Positive: Normal bowel sounds, Soft, Negative: Tenderness Extremity Exam: Positive: Clubbing (LLE with bracing: Charcot foot), Edema (+ 2 LLE) Skin Exam: Positive: Nl turgor and temperature Vital Signs/I&O Vital Signs Date Time Temp Pulse Resp B/P Pulse Ox O2 Delivery O2 Flow Rate FiO2 11/03/16 05:40 18 Room Air 11/03/16 05:10 61 99/60 95 11/03/16 04:00 96.8 11/02/16 18:00 1.0 I&O- Last 24 Hours up to 6 AM 11/03/16 06:00 Intake Total 3100 ml Output Total 1330 ml Balance 1770 ml Laboratory Data Labs 24H Laboratory Tests 2 11/02/16 09:32: Arterial Blood pH 7.338L, Arterial Blood Partial Pressure CO2 37.5, Arterial Blood Partial Pressure O2 95.2, Arterial Blood Total CO2 20.8L, Arterial Blood HCO3 19.7L, Arterial Blood Base Excess -5.6L, Arterial Blood Oxygen Saturation 96.5, Blood Gas Bicarbonate Standard 19.9L 11/02/16 11:58: Bedside Glucose (Misc Panel) 80 11/02/16 17:18: Bedside Glucose (Misc Panel) 124H 11/02/16 21:43: Bedside Glucose (Misc Panel) 140H 11/03/16 04:57: Anion Gap 13, White Blood Count 8.3, Red Blood Count 3.39L, Hemoglobin 9.9L, Hematocrit 30.0L, Mean Corpuscular Volume 88.4, Mean Corpuscular Hemoglobin 29.2 , Mean Corpuscular Hemoglobin Concent 33.0, Red Cell Distribution Width 14.7H, Platelet Count 200, Neutrophils (%) (Auto) 66.0, Lymphocytes (%) (Auto) 21.8L, Monocytes (%) (Auto) 6.6H, Eosinophils (%) (Auto) 1.8, Basophils (%) (Auto) 0.7 , Neutrophils # (Auto) 5.5, Lymphocytes # (Auto) 2.1, Monocytes # (Auto) 0.5, Eosinophils # (Auto) 0.2, Basophils # (Auto) 0.1, Blood Urea Nitrogen 59H, Creatinine 3.10H, Sodium Level 142, Potassium Level 4.1, Chloride Level 107, Carbon Dioxide Level 22, Calcium Level 7.8L, Glomerular Filtration Rate 17.1L, Large Unclassified Cells # 0.3, Large Unclassified Cells % 3.2, Prothromb Time International Ratio 2.95, Prothrombin Time 30.8H CBC/BMP Laboratory Tests 11/03/16 04:57 Calcium Level 7.8 L, Red Blood Count 3.39 L, Mean Corpuscular Volume 88.4, Mean Corpuscular Hemoglobin 29.2, Mean Corpuscular Hemoglobin Concent 33.0, Red Cell Distribution Width 14.7 H, Neutrophils (%) (Auto) 66.0, Lymphocytes (%) (Auto) 21.8 L, Monocytes (%) (Auto) 6.6 H, Eosinophils (%) (Auto) 1.8, Basophils (%) ( Auto) 0.7, Neutrophils # (Auto) 5.5, Lymphocytes # (Auto) 2.1, Monocytes # (Auto ) 0.5, Eosinophils # (Auto) 0.2, Basophils # (Auto) 0.1 FSBS Laboratory Tests Test 11/02/16 11:58 11/02/16 17:18 11/02/16 21:43 Range/Units Bedside Glucose (Misc Panel) 80 124 140 70-105 MG/DL Microbiology Microbiology 10/29/16 Blood Culture - Preliminary, Resulted No Growth after 72 hours. All specime... 10/29/16 Blood Culture - Preliminary, Resulted No Growth after 72 hours. All specime... 11/02/16 MRSA Screen, Received Pending Laxmi Hernandez Nov 03, 2016 09:36 RHIANNA ACEVEDO MD Nov 03, 2016 14:55
[2016-11-03] MEDS ORDERED: FUROSEMIDE 40 MG/4 ML VIAL (J1940) IV ONE (09:45)
[2016-11-03] MEDS ORDERED: BUMETANIDE 1 MG TAB PO ONE (11:00)
[2016-11-03 11:21] VITALS: BP 127/58
--- NOTE | 2016-11-03 11:41 | IPNPDOC ---
Date/Time Seen The patient was seen on 11/03/16 at 11:28. Progress Note DATE OF ENCOUNTER: 11/03/2016 SUBJECTIVE: Patient was seen this morning at bedside in the ICU. She reports that she is feeling much better. Feeling of dizziness/dazed has improved. She does report that she has not gotten up to ambulate however. Blood pressure has been stable throughout the night and heart rate is improved. No acute overnight events. Review of systems is positive for chronic diarrhea and irritable bowel. Negative for nausea, vomiting, abdominal pain, fever, chills, chest pain, shortness of breath. Urinary output has improved. No dysuria or hematuria. She is no longer oliguric. OBJECTIVE: Vital Signs Date Time Temp Pulse Resp B/P Pulse Ox O2 Delivery O2 Flow Rate FiO2 11/03/16 10:42 16 95 Room Air 11/03/16 07:47 96.9 66 113/64 I&O- Last 24 Hours up to 6 AM 11/03/16 06:00 Intake Total 3100 ml Output Total 1330 ml Balance 1770 ml GENERAL: Patient is alert and oriented, in no acute distress. Sitting up in the bed comfortably. HEENT: Normocephalic, atraumatic. Extraocular muscles are intact. Moist mucosa. NECK: Supple. No significant jugular venous distention could be appreciated. HEART: Normal S1-S2. Regular rate and rhythm. No murmurs, gallops or rubs. LUNGS: Clear to auscultation bilaterally. ABDOMEN: Obese. Soft. Nontender. Bowel sounds are present. No rebound, guarding or rigidity. EXTREMITIES: +1 lower extremity edema, left leg greater than right leg. She also has left foot edema with a chronic ulcer. NEUROLOGIC: No focal deficits. Cranial nerves II through XII are grossly intact. Moving all extremities. LABORATORY DATA: 11/03/16 04:57 Red Blood Count 3.39 L, Mean Corpuscular Volume 88.4, Mean Corpuscular Hemoglobin 29.2, Mean Corpuscular Hemoglobin Concent 33.0, Red Cell Distribution Width 14.7 H, Anion Gap 13, Calcium Level 7.8L, Glomerular Filtration Rate 17.1L, Prothromb Time International Ratio 2.95, Prothrombin Time 30.8H ASSESSMENT/PLAN: 1. Acute renal failure superimposed on chronic kidney disease. MAXINE inhibitor and Toradol were discontinued several days ago. Avoid any further nephrotoxic medications. Renal ultrasound did not show any acute findings. Her renal function continues to improve. Electrolytes are stable and she does not display any uremic signs. She has now turned the corner and is nonoliguric. This should continue to be monitored closely however Bishop will be discontinued. No more fluids are needed at this time. She does appear edematous and she will be given a dose of Bumex, as she does not have IV access. 2. Hypotension and bradycardia, likely secondary to atenolol toxicity with acute renal failure. She has been hemodynamically stable overnight. No more fluids were needed. It is yet to be determined if she needs to be continued on atenolol. 3. Left upper extremity pain. Patient had an IV near her shoulder and reports swelling and pain. We'll obtain an upper extremity ultrasound. 4. Anemia. Hemoglobin is currently stable. No intervention needed at this time. 4. Hypertension. Blood pressure remains soft. No antihypertensives needed at this time. 4. Left foot cellulitis and diabetic foot ulcer. The patient is receiving cefotetan 1 gram daily. Left foot ulcer was to debrided on 11/01. GME ATTESTATION GME ATTESTATION My preceptor for this patient encounter was physically present in the building during the encounter and was fully available. As needed, all aspects of the patient interview, examination, medical decision making process, and medical care plan development were reviewed and approved by the preceptor. Preceptor is aware and concurs with the plan as stated in the body of this note and will attest to such by his/her cosignature. ATTENDING NOTE Nephrology attending: Pt was examined in the ICU this AM along with the resident. I agree with the above assessment and recommendations. EMMANUEL LOPEZ DO Nov 03, 2016 11:41 ELISA CURTIS MD Nov 03, 2016 18:19
[2016-11-03] MEDS ORDERED: PHYTONADIONE 1.25 MG 1/4 TAB PO ONE (13:00)
[2016-11-03 15:48] VITALS: BP 130/66
[2016-11-03 16:46] LABS: INR 2.52
[2016-11-03] MEDS ORDERED: PHYTONADIONE 2.5 MG **1/2 TAB PO ONE (18:15)
--- NOTE | 2016-11-03 18:28 | REP ---
Left upper extremity duplex venous ultrasound: History: Left upper extremity swelling. Redness medial to the shoulder. Findings: The left subclavian, left internal jugular, left axillary, left brachial, left basilic and cephalic veins are anechoic and compressible. Color flow and spectral Doppler interrogation are unremarkable in these veins. There is no evidence of left upper extremity venous thrombosis. Scanning in the area of redness in the left supraclavicular region shows a 2.1 x 2.1 x 0.4 cm small fluid collection containing echogenic foci cysts consistent with an air bubbles. No drainable abscess is seen. Impression: Recent blood draw site in the left supraclavicular region shows a 2.1 cm apparent fluid-filled collection containing a few bubbles of air. Question of a tiny early abscess versus post instrumentation air and fluid. Signed by Obdulio Ruiz MD 11/03/2016 08:18 P
[2016-11-03 20:00] VITALS: BP 116/59
[2016-11-03] MEDS: FAMOTIDINE 20 MG TAB PO SCH (21:35)
[2016-11-03] MEDS: CEFOTETAN 1 GM IM SCH (21:35)
[2016-11-03] MEDS: MONTELUKAST 10 MG TAB PO SCH (21:36)
[2016-11-03] MEDS: QUEtiapine FUMARATE 200 MG TAB PO SCH (21:36)
[2016-11-03] MEDS: traZODone 100 MG TAB PO SCH (21:36)
[2016-11-03] MEDS: OXcarbazepine 300 MG TAB PO SCH (21:36)
[2016-11-03] MEDS: rOPINIRole 1MG TAB PO SCH (21:36)
[2016-11-04] VITALS: BP 125/61
[2016-11-04 04:00] VITALS: BP 113/64
[2016-11-04] MEDS: PERCOCET 5MG/325MG TAB PO PRN ×4 (04:42→20:14)
[2016-11-04 05:06] LABS: BASO % 0.5 % (0.0-1.0); EOS # 0.1 K/mm3 (0.0-0.50); EOS % 2.1 % (0.0-3.0); LARGE UNSTAINED CELL # 0.2 K/mm3 (0.0-0.4); LARGE UNSTAINED CELL % 3.4 % (0.0-4.0); LYMPH # 1.4 K/mm3 (1.5-4.5); LYMPH % 22.3 % (24.0-44.0); MEAN CORPUSCULAR HEMOGLOBIN 29.1 pg (27.0-33.0); MEAN CORPUSCULAR HGB CONC 33.6 g/dl (32.0-36.5); MEAN CORPUSCULAR VOLUME 86.6 fl (80.0-96.0); MONO # 0.5 K/mm3 (0.0-0.8); MONO % 7.2 % (0.0-5.0); NEUTROPHILS # 4.1 K/mm3 (1.8-7.7); NEUTROPHILS % 64.5 % (36.0-66.0); PLATELET COUNT, AUTOMATED 216 k/mm3 (150-450); RED CELL DISTRIBUTION WIDTH 13.8 % (11.5-14.5); WHITE BLOOD COUNT 6.4 K/mm3 (4.0-10.0)
[2016-11-04 05:27] LABS: INR 2.05
[2016-11-04 05:32] LABS: CALCIUM LEVEL 8.1 MG/DL (8.5-10.1); CREATININE FOR GFR 2.49 MG/DL (0.55-1.02); GLOMERULAR FILTRATION RATE 22.1 (>58); POTASSIUM SERUM 4.2 MEQ/L (3.5-5.1)
[2016-11-04] MEDS: HUMALOG 200 UNIT/ML SQ SCH ×3 (07:48→18:23)
[2016-11-04] MEDS: TOUJEO 300 UNIT/ML SQ SCH ×2 (07:49→20:15)
[2016-11-04 08:00] VITALS: BP 116/80
[2016-11-04] MEDS: IPRATROPIUM 0.5MG/ALBUTEROL 2.5MG INH SOL UD 3ML (DUONEB)(J7620) NEB SCH ×2 (08:00→16:00)
[2016-11-04] MEDS: SYMBICORT 80/4.5MCG INHALER 6GM INH SCH ×2 (08:02→19:47)
[2016-11-04] MEDS: PREGABALIN 100 MG CAP (LYRICA) PO SCH ×2 (08:19→20:13)
[2016-11-04] MEDS: SENOKOT S TAB PO SCH ×2 (08:19→20:11)
[2016-11-04] MEDS: OMEPRAZOLE 20 MG CAP PO SCH ×2 (08:20→20:13)
[2016-11-04] MEDS: DULoxetine 30 MG CAP (CYMBALTA) PO SCH ×2 (08:20→20:13)
[2016-11-04] MEDS: METOCLOPRAMIDE 5 MG TAB PO SCH ×3 (08:20→20:13)
[2016-11-04] MEDS: NYSTATIN 100,000 UNITS/GM TOPICAL PWD 15 GM TOP SCH ×3 (08:21→21:48)
[2016-11-04] MEDS: GENTAMICIN SULFATE 0.1% OINT 15 GM TOP SCH ×2 (08:21→21:48)
[2016-11-04] MEDS ORDERED: BUMETANIDE 1 MG TAB PO ONE (09:00)
--- NOTE | 2016-11-04 10:25 | IPNPDOC ---
Assessment/Plan Date Seen The patient was seen on 11/04/16. Problems Problems: (1) Acute kidney failure Status: Acute Response to Treatment: Worse Problem Specific Plan: Consult Specialist Problem Text: Cr. of 4.16 noted today. Nephrology following. Fluid stopped. MAXINE on hold. Urine output remains low. Bishop in place. 11/03/2016: IVF stopped. Cr 3.1 today. monitor. Bishop draining. 11/04/2016: Nephro continues to follow. Cr. down to 2.1 today. (2) Cellulitis of left foot Status: Acute Problem Text: s/p bedside debridement with Dr. Guerra. Now receiving cefotetan and I am, as she currently lacks IV access. Day 7 cefotetan. 11/04/2016: on review of cx and sens. Patient sensitive to Levaquin for both organisms. Will switch to Levaquin 250 mg (renal dosing) po daily. Patient is without IV access. Working on Jenelle catheter. Will schedule tomorrow now that INR is 2.05 (3) Diabetic foot ulcer Status: Acute Problem Text: s/p bedside debridement with Dr. Guerra. (4) Diabetes mellitus Status: Chronic Response to Treatment: Uncontrolled Problem Specific Plan: Monitor Clinically (5) HTN (hypertension) Status: Chronic Response to Treatment: Stable Problem Specific Plan: Monitor Clinically Problem Text: Atenolol on HOLD due to beta calin toxicity in presence of MELODY. Monitor BP and HR. (6) Asthma Status: Chronic Response to Treatment: Stable (7) Confusion Status: Resolved Problem Text: s/p episode of confusion. ? related to opioid use. Will monitor. (8) Bipolar disorder Status: Chronic Response to Treatment: Stable Problem Specific Plan: Monitor Clinically (9) Narcotic dependence Status: Chronic (10) Obesity Status: Chronic (11) Recurrent deep vein thrombosis (DVT) Status: Acute Problem Text: INR 3.87. Will HOLD coumadin. Repeat INR in am. Plan / VTE VTE Prophylaxis Ordered?: Yes (coumadin. daily INR) Plan / Urinary Catheter Reason for insertion/continuin: Acute obstruct/retention Subjective Review of Systems CC/HPI The patient is a 46-year-old female admitted with a reason for visit of Cellulitis/Diabetic Foot Ulcer. Constitutional: Denies: Chills, Fever ENT: Denies: Head Aches Pulmonary: Denies: Cough, Dyspnea Cardiovascular: Denies: Chest Pain, Lt Headedness, Orthopnea, Palpitations, Paroxysmal Noc. Dyspnea Gastrointestinal: Denies: Abdominal Pain, Diarrhea, Nausea, Vomiting Genitourinary: Denies: Dysuria, Frequency, Incontinence, Retention Psych: Reports: Mood Normal, Denies: Depression, Memory Issues Objective Physical Examination General Exam: Positive: Alert, No Acute Distress ENT Exam: Positive: Atraumatic Neck Exam: Positive: Supple, Negative: JVD Chest Exam: Positive: Clear to auscultation, Normal air movement Heart Exam: Positive: Normal S1, Normal S2, Rate Normal Abdomen Exam: Positive: Normal bowel sounds, Soft, Negative: Tenderness Extremity Exam: Positive: Clubbing (LLE with bracing: Charcot foot), Edema (+ 2 LLE) Skin Exam: Positive: Nl turgor and temperature Vital Signs/I&O Vital Signs Date Time Temp Pulse Resp B/P Pulse Ox O2 Delivery O2 Flow Rate FiO2 11/04/16 09:55 20 95 Room Air 11/04/16 04:00 95.6 66 113/64 11/02/16 18:00 1.0 I&O- Last 24 Hours up to 6 AM 11/04/16 06:00 Intake Total 3120 ml Output Total 2450 ml Balance 670 ml Laboratory Data Labs 24H Laboratory Tests 2 11/03/16 11:24: Bedside Glucose (Misc Panel) 182H 11/03/16 16:19: Bedside Glucose (Misc Panel) 132H 11/03/16 16:22: Prothromb Time International Ratio 2.52, Prothrombin Time 27.2H 11/03/16 20:34: Bedside Glucose (Misc Panel) 198H 11/04/16 04:48: Anion Gap 8, White Blood Count 6.4, Red Blood Count 3.40L, Hemoglobin 9.9L, Hematocrit 29.4L, Mean Corpuscular Volume 86.6, Mean Corpuscular Hemoglobin 29.1 , Mean Corpuscular Hemoglobin Concent 33.6, Red Cell Distribution Width 13.8, Platelet Count 216, Neutrophils (%) (Auto) 64.5, Lymphocytes (%) (Auto) 22.3L, Monocytes (%) (Auto) 7.2H, Eosinophils (%) (Auto) 2.1, Basophils (%) (Auto) 0.5 , Neutrophils # (Auto) 4.1, Lymphocytes # (Auto) 1.4L, Monocytes # (Auto) 0.5, Eosinophils # (Auto) 0.1, Basophils # (Auto) 0.0, Blood Urea Nitrogen 56H, Creatinine 2.49H, Sodium Level 139, Potassium Level 4.2, Chloride Level 106, Carbon Dioxide Level 25, Calcium Level 8.1L, Glomerular Filtration Rate 22.1L, Large Unclassified Cells # 0.2, Large Unclassified Cells % 3.4, Prothromb Time International Ratio 2.05, Prothrombin Time 23.2H CBC/BMP Laboratory Tests 11/04/16 04:48 Calcium Level 8.1 L, Red Blood Count 3.40 L, Mean Corpuscular Volume 86.6, Mean Corpuscular Hemoglobin 29.1, Mean Corpuscular Hemoglobin Concent 33.6, Red Cell Distribution Width 13.8, Neutrophils (%) (Auto) 64.5, Lymphocytes (%) (Auto) 22.3 L, Monocytes (%) (Auto) 7.2 H, Eosinophils (%) (Auto) 2.1, Basophils (%) ( Auto) 0.5, Neutrophils # (Auto) 4.1, Lymphocytes # (Auto) 1.4 L, Monocytes # ( Auto) 0.5, Eosinophils # (Auto) 0.1, Basophils # (Auto) 0.0 FSBS Laboratory Tests Test 11/03/16 11:24 11/03/16 16:19 11/03/16 20:34 Range/Units Bedside Glucose (Misc Panel) 182 132 198 70-105 MG/DL Microbiology Microbiology 10/29/16 Blood Culture - Final, Complete NO GROWTH AFTER 5 DAYS 10/29/16 Blood Culture - Final, Complete NO GROWTH AFTER 5 DAYS 11/02/16 MRSA Screen - Final, Complete Laxmi Hernandez [employer] Nov 04, 2016 10:25
[2016-11-04] MEDS ORDERED: POTASSIUM CHLORIDE 10 MEQ SR TABLET PO ONE (10:30)
--- NOTE | 2016-11-04 10:53 | IPNPDOC ---
Date/Time Seen The patient was seen on 11/04/16 at 10:41. Progress Note DATE OF ENCOUNTER: 11/04/2016 SUBJECTIVE: Patient was seen this morning at bedside in the ICU. She reports that she is feeling well She still has some left upper extremity pain and has swelling in the lower extremities. Swelling appears to be worse than yesterday and she was taking Lasix as needed at home. Blood pressure and heart rate are stable. No acute overnight events. Review of systems is positive for chronic diarrhea and irritable bowel. Negative for nausea, vomiting, abdominal pain, fever, chills, chest pain, shortness of breath. No dysuria or hematuria. She put out almost 3L after receiving Bumex yesterday but is still in the positive balance. OBJECTIVE: Vital Signs Date Time Temp Pulse Resp B/P Pulse Ox O2 Delivery O2 Flow Rate FiO2 11/04/16 09:55 20 95 Room Air 11/04/16 04:00 95.6 66 113/64 I&O- Last 24 Hours up to 6 AM 11/04/16 06:00 Intake Total 3120 ml Output Total 2450 ml Balance 670 ml GENERAL: Patient is alert and oriented, in no acute distress. Sitting up in the bed comfortably. HEENT: Normocephalic, atraumatic. Extraocular muscles are intact. Moist mucosa. NECK: Supple. No significant jugular venous distention could be appreciated. HEART: Normal S1-S2. Regular rate and rhythm. No murmurs, gallops or rubs. LUNGS: Clear to auscultation bilaterally. ABDOMEN: Obese. Soft. Nontender. Bowel sounds are present. No rebound, guarding or rigidity. EXTREMITIES: +2 lower extremity edema and extremities are taut. She also has chronic ulcer of left foot. LUE mild swelling also. NEUROLOGIC: No focal deficits. Cranial nerves II through XII are grossly intact. Moving all extremities. LABORATORY DATA: 11/04/16 04:48 Red Blood Count 3.40 L, Mean Corpuscular Volume 86.6, Mean Corpuscular Hemoglobin 29.1, Mean Corpuscular Hemoglobin Concent 33.6, Red Cell Distribution Width 13.8, Anion Gap 8, Calcium Level 8.1L, Glomerular Filtration Rate 22.1L, Large Unclassified Cells # 0.2, Large Unclassified Cells % 3.4, Prothromb Time International Ratio 2.05, Prothrombin Time 23.2H ASSESSMENT/PLAN: 1. Acute renal failure superimposed on chronic kidney disease. MAXINE inhibitor and Toradol were discontinued several days ago. Avoid any further nephrotoxic medications. Renal ultrasound did not show any acute findings. Her renal function continues to improve. Electrolytes are stable. She appears to be volume overloaded. She was taking Lasix as needed at home. We have started her on Bumex twice daily and put her on a fluid restriction. Monitor fluid status closely. Oral potassium supplementation given while on diuretic. 2. Hypotension and bradycardia, likely secondary to atenolol toxicity with acute renal failure. She remains hemodynamically stable. Atenolol has not been resumed. 3. Left upper extremity pain. Patient had an IV near her shoulder and reports swelling and pain. Upper extremity ultrasound shows small fluid collection. 4. Anemia. Hemoglobin is currently stable. No intervention needed at this time. 4. Hypertension. Blood pressure remains soft. No antihypertensives needed at this time. 4. Left foot cellulitis and diabetic foot ulcer. The patient is currently on oral Levaquin. She will have access placed tomorrow Left foot ulcer was debrided on 11/01. GME ATTESTATION GME ATTESTATION My preceptor for this patient encounter was physically present in the building during the encounter and was fully available. As needed, all aspects of the patient interview, examination, medical decision making process, and medical care plan development were reviewed and approved by the preceptor. Preceptor is aware and concurs with the plan as stated in the body of this note and will attest to such by his/her cosignature. ATTENDING NOTE Nephrology: Pt was examined this AM in the ICU. I agree with the above assessment. Start Bumex PO. EMMANUEL LOPEZ DO Nov 04, 2016 10:53 ELISA CURTIS MD Nov 04, 2016 21:36
[2016-11-04] MEDS ORDERED: LevoFLOXacin 250 MG in APPROPRIATE DILUENT 1 EA IV SCH (11:00)
[2016-11-04] MEDS: LevoFLOXacin 250 MG TABLET PO SCH (12:27)
[2016-11-04 12:30] VITALS: BP 152/69
[2016-11-04 14:00] VITALS: BP 139/73
[2016-11-04] MEDS: BUMETANIDE 1 MG TAB PO SCH (16:01)
[2016-11-04] MEDS: traZODone 100 MG TAB PO SCH (20:11)
[2016-11-04] MEDS: OXcarbazepine 300 MG TAB PO SCH (20:11)
[2016-11-04] MEDS: MONTELUKAST 10 MG TAB PO SCH (20:11)
[2016-11-04] MEDS: rOPINIRole 1MG TAB PO SCH (20:11)
[2016-11-04] MEDS: QUEtiapine FUMARATE 200 MG TAB PO SCH (20:13)
[2016-11-04] MEDS: FAMOTIDINE 20 MG TAB PO SCH (20:13)
[2016-11-04 22:00] VITALS: BP_SYST 168; BP_SYST 68; BP_DIAS 56
[2016-11-04] MEDS: LIDOCAINE 1% MDV 20ML VIAL IM SCH (22:00)
[2016-11-05] MEDS: PERCOCET 5MG/325MG TAB PO PRN ×3 (05:43→20:30)
[2016-11-05] MEDS: LevoFLOXacin 250 MG TABLET PO SCH (05:43)
[2016-11-05 06:00] VITALS: BP 129/71
[2016-11-05 06:19] LABS: BASO % 0.3 % (0.0-1.0); EOS # 0.1 K/mm3 (0.0-0.50); EOS % 2.6 % (0.0-3.0); LARGE UNSTAINED CELL # 0.2 K/mm3 (0.0-0.4); LARGE UNSTAINED CELL % 3.6 % (0.0-4.0); LYMPH # 1.3 K/mm3 (1.5-4.5); LYMPH % 23.4 % (24.0-44.0); MEAN CORPUSCULAR HEMOGLOBIN 28.8 pg (27.0-33.0); MEAN CORPUSCULAR HGB CONC 33.8 g/dl (32.0-36.5); MEAN CORPUSCULAR VOLUME 85.2 fl (80.0-96.0); MONO # 0.4 K/mm3 (0.0-0.8); NEUTROPHILS # 3.4 K/mm3 (1.8-7.7); PLATELET COUNT, AUTOMATED 231 k/mm3 (150-450); RED CELL DISTRIBUTION WIDTH 13.6 % (11.5-14.5); WHITE BLOOD COUNT 5.4 K/mm3 (4.0-10.0)
[2016-11-05 06:24] LABS: INR 1.58
[2016-11-05 06:34] LABS: CALCIUM LEVEL 8.2 MG/DL (8.5-10.1); CREATININE FOR GFR 1.71 MG/DL (0.55-1.02); GLOMERULAR FILTRATION RATE 34.1 (>58); POTASSIUM SERUM 4.2 MEQ/L (3.5-5.1)
[2016-11-05] MEDS: IPRATROPIUM 0.5MG/ALBUTEROL 2.5MG INH SOL UD 3ML (DUONEB)(J7620) NEB SCH ×5 (07:47→23:27)
[2016-11-05] MEDS: SYMBICORT 80/4.5MCG INHALER 6GM INH SCH ×2 (08:02→19:40)
--- NOTE | 2016-11-05 08:17 | IPNPDOC ---
Assessment/Plan Date Seen The patient was seen on 11/05/16. Problems Problems: (1) Acute kidney failure Status: Acute Response to Treatment: Worse Problem Specific Plan: Consult Specialist Problem Text: Cr. of 4.16 noted today. Nephrology following. Fluid stopped. MAXINE on hold. Urine output remains low. Bishop in place. 11/03/2016: IVF stopped. Cr 3.1 today. monitor. Bishop draining. 11/04/2016: Nephro continues to follow. Cr. down to 2.1 today. 11/05/2016: Cr. 1.7. Placed on Bumex for fluid retention (2) Cellulitis of left foot Status: Acute Problem Text: s/p bedside debridement with Dr. Guerra. Now receiving cefotetan and I am, as she currently lacks IV access. Day 7 cefotetan. 11/04/2016: on review of cx and sens. Patient sensitive to Levaquin for both organisms. Will switch to Levaquin 250 mg (renal dosing) po daily. Patient is without IV access. Working on Jenelle catheter. Will schedule tomorrow now that INR is 2.05 (3) Diabetic foot ulcer Status: Acute Problem Text: s/p bedside debridement with Dr. Guerra. Podiatry continues to follow. (4) Diabetes mellitus Status: Chronic Response to Treatment: Uncontrolled Problem Specific Plan: Monitor Clinically (5) HTN (hypertension) Status: Chronic Response to Treatment: Stable Problem Specific Plan: Monitor Clinically Problem Text: Atenolol on HOLD due to beta calin toxicity in presence of MELODY. Monitor BP and HR. (6) Asthma Status: Chronic Response to Treatment: Stable (7) Confusion Status: Resolved Problem Text: s/p episode of confusion. ? related to opioid use. Will monitor. (8) Bipolar disorder Status: Chronic Response to Treatment: Stable Problem Specific Plan: Monitor Clinically (9) Narcotic dependence Status: Chronic (10) Obesity Status: Chronic (11) Recurrent deep vein thrombosis (DVT) Status: Acute Problem Text: INR 3.87. Will HOLD coumadin. Repeat INR in am. Plan / VTE VTE Prophylaxis Ordered?: Yes (coumadin. daily INR) Plan / Urinary Catheter Reason for insertion/continuin: Acute obstruct/retention Plan Plan Text Attending note: I saw and evaluated the patient, and agree with the plan of care as discussed and documented. However, foot appeared slightly more erythematous on by mouth Levaquin. She was switched to by mouth linezolid and doxycycline. Patient also needs further evaluation of foot for possible further debridement. She also has a new reddened area on her right second toe, which may need to be evaluated by podiatry. Rhianna Acevedo MD Subjective Review of Systems CC/HPI The patient is a 46-year-old female admitted with a reason for visit of Cellulitis/Diabetic Foot Ulcer. Events since last encounter Feeling well. Having some episodes of hypoglycemia. On increase insulin regimen due to severe hyperglycemia as an outpatient. Planning on vascular acces today at Constitutional: Denies: Chills, Fever, Malaise, Night Sweats, Weakness ENT: Denies: Dysphagia, Ear Pain, Head Aches Pulmonary: Denies: Cough, Dyspnea Cardiovascular: Denies: Chest Pain, Lt Headedness, Orthopnea, Palpitations, Paroxysmal Noc. Dyspnea Gastrointestinal: Denies: Abdominal Pain, Diarrhea, Nausea, Vomiting Genitourinary: Denies: Dysuria, Frequency, Incontinence, Retention Psych: Reports: Mood Normal, Denies: Depression, Memory Issues Objective Physical Examination General Exam: Positive: Alert, No Acute Distress ENT Exam: Positive: Atraumatic Neck Exam: Positive: Supple, Negative: JVD Chest Exam: Positive: Clear to auscultation, Normal air movement Heart Exam: Positive: Normal S1, Normal S2, Rate Normal Abdomen Exam: Positive: Normal bowel sounds, Soft, Negative: Tenderness Extremity Exam: Positive: Clubbing (LLE with bracing: Charcot foot), Edema (+ 2 LLE) Skin Exam: Positive: Nl turgor and temperature Vital Signs/I&O Vital Signs Date Time Temp Pulse Resp B/P Pulse Ox O2 Delivery O2 Flow Rate FiO2 11/05/16 06:39 16 11/05/16 06:00 96.3 61 129/71 97 Room Air 11/02/16 18:00 1.0 I&O- Last 24 Hours up to 6 AM 11/05/16 06:00 Intake Total 720 ml Output Total 2750 ml Balance -2030 ml Laboratory Data Labs 24H Laboratory Tests 2 11/04/16 11:36: Bedside Glucose (Misc Panel) 254H 11/04/16 17:01: Bedside Glucose (Misc Panel) 123H 11/04/16 19:54: Bedside Glucose (Misc Panel) 66L 11/04/16 21:29: Bedside Glucose (Misc Panel) 121H 11/05/16 05:29: Anion Gap 5L, White Blood Count 5.4, Red Blood Count 3.54L, Hemoglobin 10.2L, Hematocrit 30.1L, Mean Corpuscular Volume 85.2, Mean Corpuscular Hemoglobin 28.8 , Mean Corpuscular Hemoglobin Concent 33.8, Red Cell Distribution Width 13.6, Platelet Count 231, Neutrophils (%) (Auto) 63.0, Lymphocytes (%) (Auto) 23.4L, Monocytes (%) (Auto) 7.0H, Eosinophils (%) (Auto) 2.6, Basophils (%) (Auto) 0.3 , Neutrophils # (Auto) 3.4, Lymphocytes # (Auto) 1.3L, Monocytes # (Auto) 0.4, Eosinophils # (Auto) 0.1, Basophils # (Auto) 0.0, Blood Urea Nitrogen 51H, Creatinine 1.71H, Sodium Level 144, Potassium Level 4.2, Chloride Level 110H, Carbon Dioxide Level 29, Calcium Level 8.2L, Glomerular Filtration Rate 34.1L, Large Unclassified Cells # 0.2, Large Unclassified Cells % 3.6, Prothromb Time International Ratio 1.58, Prothrombin Time 19.0H CBC/BMP Laboratory Tests 11/05/16 05:29 Calcium Level 8.2 L, Red Blood Count 3.54 L, Mean Corpuscular Volume 85.2, Mean Corpuscular Hemoglobin 28.8, Mean Corpuscular Hemoglobin Concent 33.8, Red Cell Distribution Width 13.6, Neutrophils (%) (Auto) 63.0, Lymphocytes (%) (Auto) 23.4 L, Monocytes (%) (Auto) 7.0 H, Eosinophils (%) (Auto) 2.6, Basophils (%) ( Auto) 0.3, Neutrophils # (Auto) 3.4, Lymphocytes # (Auto) 1.3 L, Monocytes # ( Auto) 0.4, Eosinophils # (Auto) 0.1, Basophils # (Auto) 0.0 FSBS Laboratory Tests Test 11/04/16 11:36 11/04/16 17:01 11/04/16 19:54 11/04/16 21:29 Range/Units Bedside Glucose (Misc Panel) 254 123 66 121 70-105 MG/DL Microbiology Microbiology 10/29/16 Blood Culture - Final, Complete NO GROWTH AFTER 5 DAYS 10/29/16 Blood Culture - Final, Complete NO GROWTH AFTER 5 DAYS 11/04/16 MRSA Screen, Received Pending 11/02/16 MRSA Screen - Final, Complete Laxmi Hernandez [employer] Nov 05, 2016 08:17 RHIANNA ACEVEDO MD Nov 09, 2016 19:48
[2016-11-05] MEDS: METOCLOPRAMIDE 5 MG TAB PO SCH ×3 (08:20→20:29)
[2016-11-05] MEDS: BUMETANIDE 1 MG TAB PO SCH (08:20)
[2016-11-05] MEDS: DULoxetine 30 MG CAP (CYMBALTA) PO SCH ×2 (08:20→20:28)
[2016-11-05] MEDS: OMEPRAZOLE 20 MG CAP PO SCH ×2 (08:20→20:29)
[2016-11-05] MEDS: PREGABALIN 100 MG CAP (LYRICA) PO SCH ×2 (08:20→20:27)
[2016-11-05] MEDS: SENOKOT S TAB PO SCH ×2 (08:21→20:29)
[2016-11-05] MEDS: TOUJEO 300 UNIT/ML SQ SCH ×2 (08:21→20:29)
[2016-11-05] MEDS: HUMALOG 200 UNIT/ML SQ SCH ×4 (08:21→18:24)
[2016-11-05] MEDS: GENTAMICIN SULFATE 0.1% OINT 15 GM TOP SCH ×2 (08:22→21:43)
[2016-11-05] MEDS: NYSTATIN 100,000 UNITS/GM TOPICAL PWD 15 GM TOP SCH ×3 (08:22→20:30)
[2016-11-05] MEDS ORDERED: SODIUM BICARBONATE 8.4% INJ 50MEQ 50 ML VIAL As Ordered ONE (08:34)
[2016-11-05] MEDS ORDERED: POTASSIUM CHLORIDE 10 MEQ SR TABLET PO SCH (09:00)
--- NOTE | 2016-11-05 10:36 | REPKIM ---
CLINICAL HISTORY: Hereditary immunodeficiency, diabetes, frequent infections and renal insufficiency and elevated creatinine. Patient needs intermediate- term venous access for IV meds/antibiotics. PROCEDURE PERFORMED: Right IJ Non-tunneled Ramsey Central Venous Catheter Placement INTERVENTIONALIST: Tessa Moreira MD MEDICATIONS: Local Lidocaine 2% EBL: 15 mL DEVICE USED: 7F Double Lumen Ramsey Catheter Lot#[id number] FLUORO TIME: 0.5 minutes CONSENT: The risks, benefits and alternatives to the procedure were explained to the patient and informed written consent was obtained. PROCEDURE/FINDINGS: The patient was brought to the interventional radiology suite and placed in the supine position. Time out procedure was performed. The right neck was prepped and draped in a usual sterile fashion. Real time ultrasound was used and permanent image stored. Using ultrasound guidance the right IJ vein was punctured, after infiltration of the skin and deep tissues with local anesthetic. The guidewire was advanced and positioned in the inferior vena cava. Using this access, a double lumen 7-German Ramsey catheter was inserted. Post procedure chest radiograph showed the tip of the catheter at the cavoatrial junction. The catheter was secured at the skin exit site with 2-0 suture. Each port of the catheter was flushed with saline then locked with heparin (concentration 10 units/cc). A sterile dressing was then applied. The patient tolerated the procedure well with no immediate complications. This procedure was performed using ultrasound and fluoroscopy. Dr. Moreira was present. IMPRESSION: 1. Ultrasound of the neck demonstrates patent right IJ vein and compressible. 2. Successful right IJ Ramsey catheter placement as discussed above. The catheter is ready for immediate use. cc: Zion Pastrana MD [facility]
[2016-11-05 14:00] VITALS: BP 178/79
--- NOTE | 2016-11-05 16:13 | IPNPDOC ---
Date/Time Seen The patient was seen on 11/05/16 at 15:57. Progress Note DATE OF ENCOUNTER: 11/05/2016 SUBJECTIVE: Patient was seen this morning at bedside. She reports that she is feeling well. Still has some occasional dizziness with ambulation. She still has some left upper extremity pain, but it is improved. Vitals are stable. No acute overnight events. Review of systems is positive for chronic diarrhea and irritable bowel. Negative for nausea, vomiting, abdominal pain, fever, chills, chest pain, shortness of breath. No dysuria or hematuria. She put out almost 3L in the previous 24 hours with a negative balance. OBJECTIVE: Vital Signs Date Time Temp Pulse Resp B/P Pulse Ox O2 Delivery O2 Flow Rate FiO2 11/05/16 12:50 18 11/05/16 06:00 96.3 61 129/71 97 Room Air I&O- Last 24 Hours up to 6 AM 11/05/16 06:00 Intake Total 720 ml Output Total 2750 ml Balance -2030 ml GENERAL: Patient is alert and oriented, in no acute distress. Sitting up in the bed comfortably. HEENT: Normocephalic, atraumatic. Extraocular muscles are intact. Moist mucosa. NECK: Supple. No lymphadenopathy. No significant jugular venous distention could be appreciated. HEART: Normal S1-S2. Regular rate and rhythm. No murmur appreciated. LUNGS: Clear to auscultation bilaterally. ABDOMEN: Obese. Soft. Nontender. Bowel sounds are present. No rebound, guarding or rigidity. EXTREMITIES: +2 lower extremity edema and has left upper extremity swelling. Pulses are palpable. NEUROLOGIC: No focal deficits. Cranial nerves II through XII are grossly intact. Moving all extremities. LABORATORY DATA: 11/05/16 05:29 Red Blood Count 3.54 L, Mean Corpuscular Volume 85.2, Mean Corpuscular Hemoglobin 28.8, Mean Corpuscular Hemoglobin Concent 33.8, Red Cell Distribution Width 13.6, Anion Gap 5L, Calcium Level 8.2L, Glomerular Filtration Rate 34.1L, Prothromb Time International Ratio 1.58, Prothrombin Time 19.0H ASSESSMENT/PLAN: 1. Acute renal failure superimposed on chronic kidney disease, secondary to volume depletion further complicated by nephrotoxic medication. Renal function continues to improve nicely. Electrolytes are stable. She does continue to be volume overloaded and has been changed to IV Lasix 60mg q8h now that she has IV access along with daily potassium supplementation. No acute findings were seen on ultrasound and we anticipate continued improvement of her renal function back to her baseline. Continue with current 1.5 L fluid restriction. 2. Anemia. Hemoglobin is currently stable. No intervention needed at this time. 3. Hypertension. Patient had episode of hypotension and bradycardia secondary to atenolol, which has been discontinued. Continue to monitor as she is not on any antihypertensives at this time. 4. Factor 5 Leiden deficiency with history of DVT. Patient takes chronic Coumadin. INR was subtherapeutic and now that she has had IV access established , should restart her Coumadin. 5. Left foot cellulitis and diabetic foot ulcer. The patient is currently on oral Levaquin. She had a roseline catheter placed today. Left foot ulcer was debrided on 11/01. GME ATTESTATION GME ATTESTATION My preceptor for this patient encounter was physically present in the building during the encounter and was fully available. As needed, all aspects of the patient interview, examination, medical decision making process, and medical care plan development were reviewed and approved by the preceptor. Preceptor is aware and concurs with the plan as stated in the body of this note and will attest to such by his/her cosignature. ATTENDING NOTE Nephrology: Pt was examined at bedside today AM. Worsening leg edema. Lasix 60 mg IV Q 12 hr started. Pt has made 5L urine so far. monitor daily wt and 24 hr I/O. Renal function improving. Cr 2.4-->1.7. EMMANUEL LOPEZ DO Nov 05, 2016 16:13 ELISA CURTIS MD Nov 05, 2016 20:24
[2016-11-05] MEDS ORDERED: FUROSEMIDE 100 MG/10 ML VIAL (J1940) IV SCH (17:00)
[2016-11-05] MEDS ORDERED: POTASSIUM CHLORIDE 10 MEQ SR TABLET PO ONE (18:00)
[2016-11-05 18:30] VITALS: BP 139/98
[2016-11-05] MEDS: rOPINIRole 1MG TAB PO SCH (20:27)
[2016-11-05] MEDS: QUEtiapine FUMARATE 200 MG TAB PO SCH (20:27)
[2016-11-05] MEDS: OXcarbazepine 300 MG TAB PO SCH (20:28)
[2016-11-05] MEDS: traZODone 100 MG TAB PO SCH (20:28)
[2016-11-05] MEDS: FAMOTIDINE 20 MG TAB PO SCH (20:28)
[2016-11-05] MEDS: MONTELUKAST 10 MG TAB PO SCH (20:28)
[2016-11-05] MEDS: LINEZOLID 600MG TABLET (ZYVOX) PO SCH (20:29)
[2016-11-05] MEDS: DOXYCYCLINE HYCLATE 100 MG TAB PO SCH (20:29)
[2016-11-05] MEDS: LIDOCAINE 1% MDV 20ML VIAL IM SCH (21:44)
[2016-11-05 22:00] VITALS: BP 137/82
[2016-11-06] MEDS: PERCOCET 5MG/325MG TAB PO PRN ×5 (00:38→21:18)
[2016-11-06] MEDS ORDERED: FUROSEMIDE 100 MG/10 ML VIAL (J1940) IV SCH (05:00)
[2016-11-06 06:00] VITALS: BP 134/76
[2016-11-06] MEDS: PREGABALIN 100 MG CAP (LYRICA) PO SCH ×2 (08:28→21:19)
[2016-11-06] MEDS: IPRATROPIUM 0.5MG/ALBUTEROL 2.5MG INH SOL UD 3ML (DUONEB)(J7620) NEB SCH ×2 (08:28→15:23)
[2016-11-06] MEDS: DOXYCYCLINE HYCLATE 100 MG TAB PO SCH ×2 (08:28→21:19)
[2016-11-06] MEDS: POTASSIUM CHLORIDE 10 MEQ SR TABLET PO SCH (08:28)
[2016-11-06] MEDS: METOCLOPRAMIDE 5 MG TAB PO SCH ×3 (08:29→21:19)
[2016-11-06] MEDS: DULoxetine 30 MG CAP (CYMBALTA) PO SCH ×2 (08:29→21:18)
[2016-11-06] MEDS: HUMALOG 200 UNIT/ML SQ SCH ×3 (08:29→17:07)
[2016-11-06] MEDS: OMEPRAZOLE 20 MG CAP PO SCH ×2 (08:29→21:19)
[2016-11-06] MEDS: SENOKOT S TAB PO SCH ×2 (08:29→21:19)
[2016-11-06] MEDS: LINEZOLID 600MG TABLET (ZYVOX) PO SCH ×2 (08:29→21:18)
[2016-11-06] MEDS: GENTAMICIN SULFATE 0.1% OINT 15 GM TOP SCH ×2 (08:30→21:00)
[2016-11-06] MEDS: SYMBICORT 80/4.5MCG INHALER 6GM INH SCH ×2 (08:30→20:04)
[2016-11-06] MEDS: TOUJEO 300 UNIT/ML SQ SCH ×2 (08:30→21:00)
[2016-11-06] MEDS: NYSTATIN 100,000 UNITS/GM TOPICAL PWD 15 GM TOP SCH ×3 (08:31→21:23)
[2016-11-06 08:59] LABS: MEAN CORPUSCULAR HEMOGLOBIN 29.8 pg (27.0-33.0); MEAN CORPUSCULAR HGB CONC 34.6 g/dl (32.0-36.5); MEAN CORPUSCULAR VOLUME 86.1 fl (80.0-96.0); RED CELL DISTRIBUTION WIDTH 13.5 % (11.5-14.5); WHITE BLOOD COUNT 5.3 K/mm3 (4.0-10.0)
[2016-11-06] MEDS ORDERED: POTASSIUM CHLORIDE 10 MEQ SR TABLET PO SCH (09:00)
[2016-11-06 09:27] LABS: ALBUMIN 2.9 GM/DL (3.2-5.2); CALCIUM LEVEL 8.5 MG/DL (8.5-10.1); CREATININE FOR GFR 1.7 MG/DL (0.55-1.02); GLOMERULAR FILTRATION RATE 34.3 (>58); PHOSPHORUS LEVEL 4.3 MG/DL (2.5-4.9)
[2016-11-06 09:36] LABS: INR 1.22
--- NOTE | 2016-11-06 10:02 | IPNPDOC ---
Assessment/Plan Date Seen The patient was seen on 11/06/16. Problems Problems: (1) Cellulitis of left foot Status: Acute Problem Text: s/p bedside debridement with Dr. Guerra. 10/27/16 WCX heavy E. faecalis, S. agalactiae Now receiving cefotetan and I am, as she currently lacks IV access. Day 7 cefotetan. 11/04/2016: on review of cx and sens. Patient sensitive to Levaquin for both organisms. Will switch to Levaquin 250 mg (renal dosing) po daily. Patient is without IV access. Working on Jenelle catheter. Will schedule tomorrow now that INR is 2.05 11/05/2016: changed to linezolid and doxycycline 11/06/2016 increased erythema/induration at l plantar wound and new onset R toe erythema/induration c small amt pus draining from nail bed-cultured and changed back to cefotetan 2 IV QD (RD) (2) Acute kidney failure Status: Acute Response to Treatment: Worse Problem Specific Plan: Consult Specialist Problem Text: baseline cr 1.3 11/03/2016: IVF stopped. Cr 3.1 today. monitor. Bishop draining. 11/04/2016: Nephro continues to follow. Cr. down to 2.1 today. 11/05/2016: Cr. 1.7. Placed on Bumex for fluid retention 11/05/2016: Cr. 1.7 (3) Diabetic foot ulcer Status: Acute Problem Text: s/p bedside debridement with Dr. Guerra. Podiatry continues to follow. (4) Diabetes mellitus Status: Chronic Response to Treatment: Uncontrolled Problem Specific Plan: Monitor Clinically (5) HTN (hypertension) Status: Chronic Response to Treatment: Stable Problem Specific Plan: Monitor Clinically Problem Text: Atenolol on HOLD due to beta calin toxicity in presence of MELODY. Monitor BP and HR. (6) Asthma Status: Chronic Response to Treatment: Stable (7) Bipolar disorder Status: Chronic Response to Treatment: Stable Problem Specific Plan: Monitor Clinically (8) Narcotic dependence Status: Chronic (9) Recurrent deep vein thrombosis (DVT) Status: Acute Problem Text: INR 1.2: warfarin resumed at 5mg po today Plan / VTE VTE Prophylaxis Ordered?: Yes (coumadin. daily INR) Plan / Urinary Catheter Reason for insertion/continuin: Acute obstruct/retention Subjective Review of Systems CC/HPI The patient is a 46-year-old female admitted with a reason for visit of Cellulitis/Diabetic Foot Ulcer. Events since last encounter Denies c/o. Now with vascular access. ABx changed to worsening cellulitis of LLE and new right toe blister with erythema and warmth. Constitutional: Denies: Chills, Fever, Malaise, Night Sweats, Weakness Skin: Denies: Breakdown, Lesions, Rash Pulmonary: Denies: Cough, Dyspnea Cardiovascular: Denies: Chest Pain, Lt Headedness, Orthopnea, Palpitations, Paroxysmal Noc. Dyspnea Gastrointestinal: Denies: Abdominal Pain, Diarrhea, Nausea, Vomiting Genitourinary: Denies: Dysuria, Frequency, Incontinence, Retention Psych: Reports: Mood Normal, Denies: Depression, Memory Issues Objective Physical Examination General Exam: Positive: Alert, No Acute Distress ENT Exam: Positive: Atraumatic Neck Exam: Positive: Supple, Negative: JVD Chest Exam: Positive: Clear to auscultation, Normal air movement Heart Exam: Positive: Normal S1, Normal S2, Rate Normal Abdomen Exam: Positive: Normal bowel sounds, Soft, Negative: Tenderness Extremity Exam: Positive: Clubbing (LLE with bracing: Charcot foot), Edema (LLE ), Other (LLE: erythema, warmth spreading up medial foot and ankle. Right foot: 1st toe with erythema and warmth. ) Vital Signs/I&O Vital Signs Date Time Temp Pulse Resp B/P Pulse Ox O2 Delivery O2 Flow Rate FiO2 11/06/16 06:00 97.3 80 18 134/76 98 Room Air 11/02/16 18:00 1.0 I&O- Last 24 Hours up to 6 AM 11/06/16 06:00 Intake Total 1980 ml Output Total 7600 ml Balance -5620 ml Laboratory Data Labs 24H Laboratory Tests 2 11/05/16 11:41: Bedside Glucose (Misc Panel) 169H 11/05/16 17:14: Bedside Glucose (Misc Panel) 96 11/05/16 21:00: Bedside Glucose (Misc Panel) 108H 11/06/16 05:21: Bedside Glucose (Misc Panel) 98 11/06/16 08:50: Albumin 2.9L, Blood Urea Nitrogen 43H, Creatinine 1.70H, Sodium Level 142, Potassium Level 5.0, Chloride Level 105, Carbon Dioxide Level 30, Anion Gap 7L, Calcium Level 8.5, Glomerular Filtration Rate 34.3L, Phosphorus Level 4.3 11/06/16 09:06: Prothromb Time International Ratio 1.22, Prothrombin Time 15.5H CBC/BMP Laboratory Tests 11/06/16 08:50 Anion Gap 7 L, Red Blood Count 3.49 L, Mean Corpuscular Volume 86.1, Mean Corpuscular Hemoglobin 29.8, Mean Corpuscular Hemoglobin Concent 34.6, Red Cell Distribution Width 13.5 FSBS Laboratory Tests Test 11/05/16 11:41 11/05/16 17:14 11/05/16 21:00 11/06/16 05:21 Range/Units Bedside Glucose (Misc Panel) 169 96 108 98 70-105 MG/DL Microbiology Microbiology 10/29/16 Blood Culture - Final, Complete NO GROWTH AFTER 5 DAYS 10/29/16 Blood Culture - Final, Complete NO GROWTH AFTER 5 DAYS 11/04/16 MRSA Screen - Final, Complete 11/02/16 MRSA Screen - Final, Complete Laxmi Hernandez Nov 06, 2016 10:02 Rashid Morgan M.D. Nov 06, 2016 12:53
[2016-11-06] MEDS: SODIUM CHLORIDE 0.9% INJ 10 ML SYR IV PRN ×3 (11:10→17:30)
[2016-11-06] MEDS: ONDANSETRON 4MG/2ML VIAL (J2405) IV PRN ×2 (11:10→17:29)
--- NOTE | 2016-11-06 13:08 | IPNPDOC ---
Date/Time Seen The patient was seen on 11/06/16 at 12:52. Progress Note DATE OF ENCOUNTER: 11/06/2016 SUBJECTIVE: Patient was seen this morning at bedside. She reports that she is feeling well. No acute overnight events and vitals are stable. Review of systems is positive for chronic diarrhea and nausea. Negative for vomiting, abdominal pain, fever, chills, chest pain, shortness of breath. No dysuria or hematuria. She is in the negative balance of over 5L. Edema in lower extremity has improved. OBJECTIVE: Vital Signs Date Time Temp Pulse Resp B/P Pulse Ox O2 Delivery O2 Flow Rate FiO2 11/06/16 11:11 17 11/06/16 09:00 Room Air 11/06/16 06:00 97.3 80 134/76 98 I&O- Last 24 Hours up to 6 AM 11/06/16 06:00 Intake Total 1980 ml Output Total 7600 ml Balance -5620 ml GENERAL: Patient is alert and oriented, in no acute distress. Sitting up in the bed comfortably. HEENT: Normocephalic, atraumatic. Extraocular muscles are intact. Moist mucosa. NECK: Supple. No lymphadenopathy. No significant jugular venous distention could be appreciated. HEART: Normal S1-S2. Regular rate and rhythm. No murmur appreciated. LUNGS: Clear to auscultation bilaterally. ABDOMEN: Obese. Soft. Nontender. Bowel sounds are present. No rebound, guarding or rigidity. EXTREMITIES: Patient has significant lower extremity edema, however improved. She also has some fluid retention in the lower abdomen. Extremities are warm and dry. Pulses are palpable. NEUROLOGIC: No focal deficits. Moving all extremities. LABORATORY DATA: 11/06/16 08:50 Red Blood Count 3.49 L, Mean Corpuscular Volume 86.1, Mean Corpuscular Hemoglobin 29.8, Mean Corpuscular Hemoglobin Concent 34.6, Red Cell Distribution Width 13.5, Albumin 2.9L, Anion Gap 7L, Calcium Level 8.5, Glomerular Filtration Rate 34.3L, Phosphorus Level 4.3 ASSESSMENT/PLAN: 1. Acute renal failure superimposed on chronic kidney disease, secondary to volume depletion further complicated by nephrotoxic medication. No change in her renal function this morning. May be due to diuresis. Lasix has been decreased to 40 mg twice daily, as she put out over 7 L in the previous 24 hours. She does continue to have significant fluid and will need to be diuresed further. She was on Lasix, spironolactone, chlorthalidone and MAXINE inhibitor at home all of which could have been keeping her volume status stable. Lower extremity edema has improved a little bit. Continue with current 1.5 L fluid restriction. Electrolytes are stable. We will reassess volume status tomorrow and adjust accordingly. 2. Anemia. Hemoglobin is currently stable. No intervention needed at this time. 3. Hypertension. Blood pressure appears stable. She is on Lasix, but no other antihypertensives that she was taking at home. 4. Left foot cellulitis and diabetic foot ulcer. The patient has been changed to doxycycline and linezolid. Status post debridement on 11/01. GME ATTESTATION GME ATTESTATION My preceptor for this patient encounter was physically present in the building during the encounter and was fully available. As needed, all aspects of the patient interview, examination, medical decision making process, and medical care plan development were reviewed and approved by the preceptor. Preceptor is aware and concurs with the plan as stated in the body of this note and will attest to such by his/her cosignature. EMMANUEL LOPEZ DO Nov 06, 2016 13:08
[2016-11-06 14:00] VITALS: BP 159/63
[2016-11-06] MEDS: FUROSEMIDE 40 MG/4 ML VIAL (J1940) IV SCH (16:29)
[2016-11-06] MEDS ORDERED: WARFARIN SOD 5 MG TAB PO ONE (17:00)
[2016-11-06 17:06] VITALS: BP 168/78
[2016-11-06] MEDS: OXcarbazepine 300 MG TAB PO SCH (21:18)
[2016-11-06] MEDS: rOPINIRole 1MG TAB PO SCH (21:18)
[2016-11-06] MEDS: QUEtiapine FUMARATE 200 MG TAB PO SCH (21:18)
[2016-11-06] MEDS: traZODone 100 MG TAB PO SCH (21:18)
[2016-11-06] MEDS: MONTELUKAST 10 MG TAB PO SCH (21:19)
[2016-11-06] MEDS: FAMOTIDINE 20 MG TAB PO SCH (21:19)
[2016-11-06] MEDS: LIDOCAINE 1% MDV 20ML VIAL IM SCH (21:24)
[2016-11-06 22:00] VITALS: BP 162/78
[2016-11-07] MEDS: PERCOCET 5MG/325MG TAB PO PRN ×5 (01:18→20:02)
[2016-11-07] MEDS: ONDANSETRON 4MG/2ML VIAL (J2405) IV PRN ×3 (01:20→20:01)
[2016-11-07] MEDS: SODIUM CHLORIDE 0.9% INJ 10 ML SYR IV PRN ×3 (05:36→17:35)
[2016-11-07 06:00] VITALS: BP 132/67
[2016-11-07 06:01] LABS: BASO % 0.5 % (0.0-1.0); EOS # 0.1 K/mm3 (0.0-0.50); EOS % 2.4 % (0.0-3.0); LARGE UNSTAINED CELL # 0.2 K/mm3 (0.0-0.4); LARGE UNSTAINED CELL % 3.1 % (0.0-4.0); LYMPH # 1.1 K/mm3 (1.5-4.5); LYMPH % 23.9 % (24.0-44.0); MEAN CORPUSCULAR HEMOGLOBIN 29.1 pg (27.0-33.0); MEAN CORPUSCULAR HGB CONC 33.4 g/dl (32.0-36.5); MEAN CORPUSCULAR VOLUME 87.3 fl (80.0-96.0); MONO # 0.4 K/mm3 (0.0-0.8); MONO % 7.7 % (0.0-5.0); NEUTROPHILS # 2.9 K/mm3 (1.8-7.7); NEUTROPHILS % 62.3 % (36.0-66.0); PLATELET COUNT, AUTOMATED 211 k/mm3 (150-450); RED CELL DISTRIBUTION WIDTH 13.6 % (11.5-14.5); WHITE BLOOD COUNT 4.7 K/mm3 (4.0-10.0)
[2016-11-07 06:18] LABS: ALBUMIN 2.9 GM/DL (3.2-5.2); ALBUMIN/GLOBULIN RATIO 0.85 (1.00-1.93); BILIRUBIN,TOTAL 0.3 MG/DL (0.2-1.0); CALCIUM LEVEL 8.5 MG/DL (8.5-10.1); CREATININE FOR GFR 1.68 MG/DL (0.55-1.02); GLOMERULAR FILTRATION RATE 34.8 (>58); TOTAL PROTEIN 6.3 GM/DL (6.4-8.2)
[2016-11-07 06:23] LABS: INR 1.14
[2016-11-07] MEDS: HUMALOG 200 UNIT/ML SQ SCH ×3 (07:30→17:04)
[2016-11-07] MEDS: IPRATROPIUM 0.5MG/ALBUTEROL 2.5MG INH SOL UD 3ML (DUONEB)(J7620) NEB SCH ×3 (08:00→15:58)
[2016-11-07] MEDS: SYMBICORT 80/4.5MCG INHALER 6GM INH SCH ×2 (08:05→19:44)
[2016-11-07] MEDS: FUROSEMIDE 40 MG/4 ML VIAL (J1940) IV SCH ×2 (08:45→17:34)
[2016-11-07] MEDS: POTASSIUM CHLORIDE 10 MEQ SR TABLET PO SCH (08:47)
[2016-11-07] MEDS: OMEPRAZOLE 20 MG CAP PO SCH ×2 (08:47→21:08)
[2016-11-07] MEDS: DULoxetine 30 MG CAP (CYMBALTA) PO SCH ×2 (08:47→21:08)
[2016-11-07] MEDS: DOXYCYCLINE HYCLATE 100 MG TAB PO SCH (08:47)
[2016-11-07] MEDS: LINEZOLID 600MG TABLET (ZYVOX) PO SCH ×2 (08:47→21:08)
[2016-11-07] MEDS: PREGABALIN 100 MG CAP (LYRICA) PO SCH ×2 (08:48→21:08)
[2016-11-07] MEDS: METOCLOPRAMIDE 5 MG TAB PO SCH ×3 (08:48→21:08)
[2016-11-07] MEDS: SENOKOT S TAB PO SCH ×2 (08:48→21:08)
[2016-11-07] MEDS: TOUJEO 300 UNIT/ML SQ SCH ×2 (08:51→21:09)
[2016-11-07] MEDS: NYSTATIN 100,000 UNITS/GM TOPICAL PWD 15 GM TOP SCH ×3 (08:52→21:10)
[2016-11-07] MEDS: GENTAMICIN SULFATE 0.1% OINT 15 GM TOP SCH ×2 (08:52→21:10)
--- NOTE | 2016-11-07 10:54 | IPNPDOC ---
Assessment/Plan Date Seen The patient was seen on 11/07/16. Problems Problems: (1) Cellulitis of left foot Status: Acute Problem Text: s/p bedside debridement with Dr. Guerra linezolid D3 10/27/16 WCX heavy E. faecalis, S. agalactiae Now receiving cefotetan and I am, as she currently lacks IV access. Day 7 cefotetan. 11/04/2016: on review of cx and sens. Patient sensitive to Levaquin for both organisms. Will switch to Levaquin 250 mg (renal dosing) po daily. Patient is without IV access. Working on Jenelle catheter. Will schedule tomorrow now that INR is 2.05 11/05/2016: changed to linezolid and doxycycline 11/06/2016 increased erythema/induration at l plantar wound and new onset R toe erythema/induration c small amt pus draining from nail [id number] d/w Dr. Scott who agrees linezolid should be adequate coverage for both 10/27 organisms (and prefer to avoid using catheter) 11/07/2016: improving. Monitor CRP, ESR. Continue current antibiotics-both L foot , R 1 toe improved (2) Acute kidney failure Status: Acute Response to Treatment: Worse Problem Specific Plan: Consult Specialist Problem Text: baseline cr 1.3 11/03/2016: IVF stopped. Cr 3.1 today. monitor. Bishop draining. 11/04/2016: Nephro continues to follow. Cr. down to 2.1 today. 11/05/2016: Cr. 1.7. Placed on Bumex for fluid retention 11/05/2016: Cr. 1.7 (3) Diabetic foot ulcer Status: Acute Problem Text: s/p bedside debridement with Dr. Guerra. Podiatry continues to follow. (4) Diabetes mellitus Status: Chronic Response to Treatment: Uncontrolled Problem Specific Plan: Monitor Clinically (5) HTN (hypertension) Status: Chronic Response to Treatment: Stable Problem Specific Plan: Monitor Clinically Problem Text: Atenolol on HOLD due to beta calin toxicity in presence of MELODY. Monitor BP and HR. (6) Asthma Status: Chronic Response to Treatment: Stable (7) Bipolar disorder Status: Chronic Response to Treatment: Stable Problem Specific Plan: Monitor Clinically (8) Narcotic dependence Status: Chronic (9) Recurrent deep vein thrombosis (DVT) Status: Acute Problem Text: .1 gave 5 c Lovenox 30 11/06 INR 1.2: warfarin resumed at 5mg po today (HD 1.5) (10) Cellulitis of right toe Status: Acute Problem Text: negative cx. Will eval MRI to r/o osteomyelitis. Plan / VTE VTE Prophylaxis Ordered?: Yes (coumadin. daily INR) Plan / Urinary Catheter Reason for insertion/continuin: Acute obstruct/retention Subjective Review of Systems CC/HPI The patient is a 46-year-old female admitted with a reason for visit of Cellulitis/Diabetic Foot Ulcer. Events since last encounter Having some trouble with urinary retention symptoms. states Nephro is managing. LEFT foot wound improving. Right toe erythema unchanged. Constitutional: Denies: Chills, Fever, Malaise, Night Sweats, Weakness Skin: Reports: Other (right foot 1st toe erythema), Denies: Breakdown, Lesions, Rash Pulmonary: Denies: Cough, Dyspnea Cardiovascular: Denies: Chest Pain, Lt Headedness, Orthopnea, Palpitations, Paroxysmal Noc. Dyspnea Gastrointestinal: Denies: Abdominal Pain, Diarrhea, Nausea, Vomiting Genitourinary: Reports: Retention, Denies: Dysuria, Frequency, Incontinence Psych: Reports: Mood Normal, Denies: Depression, Memory Issues Objective Physical Examination General Exam: Positive: Alert, No Acute Distress ENT Exam: Positive: Atraumatic Neck Exam: Positive: Supple, Negative: JVD Chest Exam: Positive: Clear to auscultation, Normal air movement Heart Exam: Positive: Normal S1, Normal S2, Rate Normal Abdomen Exam: Positive: Normal bowel sounds, Soft, Negative: Tenderness Extremity Exam: Positive: Clubbing (LLE with bracing: Charcot foot), Edema (LLE ), Other (LLE: erythema, warmth spreading up medial foot and ankle. Right foot: 1st toe with erythema and warmth. ) Vital Signs/I&O Vital Signs Date Time Temp Pulse Resp B/P Pulse Ox O2 Delivery O2 Flow Rate FiO2 11/07/16 10:22 18 Room Air 11/07/16 06:00 97.0 68 132/67 94 11/02/16 18:00 1.0 I&O- Last 24 Hours up to 6 AM 11/07/16 06:00 Intake Total 840 ml Output Total 6600 ml Balance -5760 ml Laboratory Data Labs 24H Laboratory Tests 2 11/06/16 11:45: Bedside Glucose (Misc Panel) 72 11/06/16 12:33: Bedside Glucose (Misc Panel) 79 11/06/16 13:48: Bedside Glucose (Misc Panel) 123H 11/06/16 16:55: Bedside Glucose (Misc Panel) 243H 11/06/16 21:20: Bedside Glucose (Misc Panel) 208H 11/07/16 05:42: Blood Urea Nitrogen 48H, Creatinine 1.68H, Sodium Level 143, Potassium Level 5.0 , Chloride Level 106, Carbon Dioxide Level 30, Calcium Level 8.5, Aspartate Amino Transf (AST/SGOT) 19, Alanine Aminotransferase (ALT/SGPT) 21, Alkaline Phosphatase 130H, Total Bilirubin 0.3, Total Protein 6.3L, Albumin 2.9L, Albumin /Globulin Ratio 0.85L, Anion Gap 7L, White Blood Count 4.7, Red Blood Count 3.38L, Hemoglobin 9.8L, Hematocrit 29.5L, Mean Corpuscular Volume 87.3, Mean Corpuscular Hemoglobin 29.1, Mean Corpuscular Hemoglobin Concent 33.4, Red Cell Distribution Width 13.6, Platelet Count 211, Neutrophils (%) (Auto) 62.3, Lymphocytes (%) (Auto) 23.9L, Monocytes (%) (Auto) 7.7H, Eosinophils (%) (Auto) 2.4, Basophils (%) (Auto) 0.5, Neutrophils # (Auto) 2.9, Lymphocytes # (Auto) 1.1L, Monocytes # (Auto) 0.4, Eosinophils # (Auto) 0.1, Basophils # (Auto) 0.0, Glomerular Filtration Rate 34.8L, Large Unclassified Cells # 0.2, Large Unclassified Cells % 3.1, Prothromb Time International Ratio 1.14, Prothrombin Time 14.7H CBC/BMP Laboratory Tests 11/07/16 05:42 Calcium Level 8.5, Aspartate Amino Transf (AST/SGOT) 19, Alanine Aminotransferase (ALT/SGPT) 21, Alkaline Phosphatase 130 H, Total Bilirubin 0.3 , Total Protein 6.3 L, Albumin 2.9 L, Red Blood Count 3.38 L, Mean Corpuscular Volume 87.3, Mean Corpuscular Hemoglobin 29.1, Mean Corpuscular Hemoglobin Concent 33.4, Red Cell Distribution Width 13.6, Neutrophils (%) (Auto) 62.3, Lymphocytes (%) (Auto) 23.9 L, Monocytes (%) (Auto) 7.7 H, Eosinophils (%) (Auto ) 2.4, Basophils (%) (Auto) 0.5, Neutrophils # (Auto) 2.9, Lymphocytes # (Auto) 1.1 L, Monocytes # (Auto) 0.4, Eosinophils # (Auto) 0.1, Basophils # (Auto) 0.0 FSBS Laboratory Tests Test 11/06/16 11:45 11/06/16 12:33 11/06/16 13:48 11/06/16 16:55 Range/Units Bedside Glucose (Misc Panel) 72 79 123 243 70-105 MG/DL Test 11/06/16 21:20 Range/Units Bedside Glucose (Misc Panel) 208 70-105 MG/DL Microbiology Microbiology 10/29/16 Blood Culture - Final, Complete NO GROWTH AFTER 5 DAYS 10/29/16 Blood Culture - Final, Complete NO GROWTH AFTER 5 DAYS 11/04/16 MRSA Screen - Final, Complete 11/02/16 MRSA Screen - Final, Complete 11/06/16 Gram Stain - Final, Resulted 11/06/16 Wound Culture, Resulted Pending 11/06/16 Anaerobic Culture, Resulted Pending Laxmi Hernandez Nov 07, 2016 10:54 Rashid Morgan M.D. Nov 07, 2016 12:11
[2016-11-07 13:01] LABS: INR 1.15
[2016-11-07] MEDS: TAMSULOSIN 0.4 MG CAP PO SCH (13:02)
[2016-11-07] MEDS: ENOXAPARIN 30 MG/0.3 ML SYR (J1650) SC SCH (13:03)
[2016-11-07 14:00] VITALS: BP 148/82
--- NOTE | 2016-11-07 14:15 | IPN ---
DATE OF SERVICE: 11/07/2016 SUBJECTIVE: The patient was seen and examined at the bedside today in the morning. She continues to have very good urinary output with the current dose of diuretics. Her renal function continues to improve. Blood pressure is acceptable at this time. However, she does complain of urinary retention. REVIEW OF SYSTEMS: The patient denies any fever, chills, rigors, headache, nausea, vomiting, chest pain, shortness of breath, pain abdomen, constipation, or diarrhea. She does report urinary retention and some time difficulty initiating urine. She also reports cellulitis in the bilateral lower extremities, which is being treated by the primary team. Rest of the review of systems is negative. OBJECTIVE: VITAL SIGNS: Temperature is 97 degrees Fahrenheit, blood pressure is 132/67, pulse is 68, respiratory rate of 18, saturating 94% on room air. INTAKE AND OUTPUT: The patient's urine output was 6.6 liters yesterday and 2400 mL so far today since overnight. Weight on the bed scale weight is 131.5 kg. PHYSICAL EXAMINATION: GENERAL: The patient is awake, alert, oriented times three, sitting in the bed, in no apparent distress. HEAD AND NECK EXAMINATION: Extraocular muscles intact. Pupils equally round and reactive to light. Mucous membranes are moist. Neck is supple. There is no jugular venous distention (JVD). CARDIOVASCULAR: S1, S2, regular rate. No murmur, rub, and gallop. RESPIRATORY: Chest is clear to auscultation bilaterally. Bilateral equal air entry. No rales or rhonchi. ABDOMEN: Soft. Obese. Positive bowel sounds. Mild abdominal wall edema. EXTREMITIES: The patient has 1+ pitting edema of the bilateral lower extremities. She has erythema of the bilateral lower extremities, as well, up to the ankles. Pulses are 2+. CENTRAL NERVOUS SYSTEM (INTELLIGENCE MANAGER): No focal neurological deficit. Power is 5/5 in all extremities. PSYCHIATRIC: Normal mood and affect. LABORATORY REVIEW: CBC showed WBC 4.7, hemoglobin 9.8, platelets of 211. BMP showed sodium 143, potassium 5, chloride 106, bicarbonate 30, BUN 48, creatinine is 1.6. It was 1.7 yesterday. Calcium is 8.5, albumin is 2.9. CURRENT MEDICATIONS: The patient's current medications were all reviewed by me. She continues to be on intravenous (IV) Lasix 40 mg twice a day. Her doxycycline has been stopped. She currently is on Zyvox 600 mg by mouth twice a day. ASSESSMENT: A 46-year-old female with past medical history of diabetes, hypertension, admitted this time because of left foot cellulitis and diabetic foot ulcers. Nephrology service following the patient for management of acute kidney injury superimposed on chronic kidney disease. PLAN: 1. Acute kidney injury superimposed on chronic kidney disease. The patient's renal function continues to improve at this time. Because of the fluid overload, she has been restarted on Lasix. She is currently on Lasix 40 mg IV twice a day. She is having a good response to the current dose of Lasix. Continue to monitor daily intake and output and continue to hold spironolactone, chlorthalidone, and angiotensin-converting enzyme (MAXINE) inhibitors at this time. 2. Hypertension. Blood pressure is acceptable at this time. Continue the current dose of diuretics. 3. Urinary retention. I am going to do a bladder scan. If the patient has more than 250 mL residue on the bladder scan, she would need a straight catheterization. I am also starting the patient on Flomax 0.4 mg by mouth daily. 4. Left foot cellulitis and diabetic foot ulcer. She is currently on Zyvox. The rest of the management is as per primary team and infectious disease.
[2016-11-07] MEDS ORDERED: WARFARIN SOD 5 MG TAB PO ONE (17:00)
[2016-11-07] MEDS: rOPINIRole 1MG TAB PO SCH (21:07)
[2016-11-07] MEDS: QUEtiapine FUMARATE 200 MG TAB PO SCH (21:07)
[2016-11-07] MEDS: OXcarbazepine 300 MG TAB PO SCH (21:07)
[2016-11-07] MEDS: MONTELUKAST 10 MG TAB PO SCH (21:08)
[2016-11-07] MEDS: traZODone 100 MG TAB PO SCH (21:08)
[2016-11-07] MEDS: FAMOTIDINE 20 MG TAB PO SCH (21:08)
[2016-11-07] MEDS: LIDOCAINE 1% MDV 20ML VIAL IM SCH (21:10)
[2016-11-07 22:00] VITALS: BP 165/75
[2016-11-08] MEDS: ONDANSETRON 4MG/2ML VIAL (J2405) IV PRN ×3 (02:49→16:42)
[2016-11-08] MEDS: PERCOCET 5MG/325MG TAB PO PRN ×4 (02:49→22:25)
[2016-11-08 05:42] LABS: INR 1.41
[2016-11-08 06:00] VITALS: BP 135/68
[2016-11-08] MEDS: IPRATROPIUM 0.5MG/ALBUTEROL 2.5MG INH SOL UD 3ML (DUONEB)(J7620) NEB SCH ×4 (07:56→23:04)
[2016-11-08] MEDS: SYMBICORT 80/4.5MCG INHALER 6GM INH SCH ×2 (07:56→19:55)
--- NOTE | 2016-11-08 09:08 | REP ---
MRI STUDY OF THE RIGHT FOOT WITHOUT AND WITH IV GADOLINIUM: HISTORY: Question osteomyelitis. The patient relates redness and warmth in the great toe. Comparison MRI study of the right foot is from July 17, 2015. The most recent comparison right foot radiographs are from June 30, 2015. TECHNIQUE: Axial coronal and sagittal imaging planes are utilized for T1 proton density and T2-weighted scans obtained in the usual fashion with without fat saturation. MRI gadolinium enhancement dose: 30 mL of intravenous ProHance is administered. MRI FINDINGS: There are fairly advanced osteoarthritic changes in the midfoot with partial collapse of the tarsal arch consistent with neuropathic arthropathy. There is a 12 mm cyst in the anterior aspect of the calcaneus, which is enlarged compared to the July 17, [address] There is much less midfoot and hindfoot marrow edema visible today compared to the prior exam. Cortical and medullary bone signal intensity are normal throughout the 1st digital ray bony structures. There is some T2-weighted marrow edema in the amputated end the of the 5th metatarsal. No low T1 signal intensity is seen within this portion of the bone. There is adjacent soft tissue edema. There is also an area of plantar skeletal muscle edema adjacent to the 1st and 2nd metatarsals in the volar aspect of the forefoot medially. No soft tissue fluid collection is appreciated to suggest abscess. No abnormal intraosseous contrast enhancement is seen in the forefoot to suggest osteomyelitis. Incidental note is made of a osteochondral defect lesion in the central talar dome. This is not displaced. It measures 8 mm in greatest diameter. It is unchanged from the August 05, 2015 study. 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 There is some adjacent granulation tissue and marrow edema in the distal end of the 5th metatarsal but there is no compelling evidence of osteomyelitis here. 1st digital ray bony signal intensity is normal without evidence of osteomyelitis. There is soft tissue edema and intramuscular edema in the medial forefoot volar aspect. Moderate to advanced neuropathic arthropathy in the midfoot. Signed by Obdulio Ruiz MD 11/08/2016 10:18 A
[2016-11-08 09:27] LABS: MEAN CORPUSCULAR HEMOGLOBIN 28.8 pg (27.0-33.0); MEAN CORPUSCULAR HGB CONC 33.5 g/dl (32.0-36.5); RED CELL DISTRIBUTION WIDTH 13.6 % (11.5-14.5); WHITE BLOOD COUNT 5.5 K/mm3 (4.0-10.0)
[2016-11-08 09:30] LABS: ALBUMIN 2.9 GM/DL (3.2-5.2); CALCIUM LEVEL 8.5 MG/DL (8.5-10.1); CREATININE FOR GFR 1.54 MG/DL (0.55-1.02); GLOMERULAR FILTRATION RATE 38.4 (>58); PHOSPHORUS LEVEL 4.1 MG/DL (2.5-4.9); POTASSIUM SERUM 4.4 MEQ/L (3.5-5.1)
[2016-11-08 09:40] LABS: MAGNESIUM LEVEL 1.6 MG/DL (1.8-2.4)
[2016-11-08] MEDS: HUMALOG 200 UNIT/ML SQ SCH ×3 (10:08→18:36)
[2016-11-08] MEDS: TOUJEO 300 UNIT/ML SQ SCH ×2 (10:09→22:26)
[2016-11-08] MEDS: SENOKOT S TAB PO SCH ×2 (10:11→22:24)
[2016-11-08] MEDS: OMEPRAZOLE 20 MG CAP PO SCH ×2 (10:11→22:24)
[2016-11-08] MEDS: PREGABALIN 100 MG CAP (LYRICA) PO SCH ×2 (10:12→22:22)
[2016-11-08] MEDS: TAMSULOSIN 0.4 MG CAP PO SCH (10:12)
[2016-11-08] MEDS: METOCLOPRAMIDE 5 MG TAB PO SCH ×3 (10:12→22:25)
[2016-11-08] MEDS: DULoxetine 30 MG CAP (CYMBALTA) PO SCH ×2 (10:12→22:22)
[2016-11-08] MEDS: LINEZOLID 600MG TABLET (ZYVOX) PO SCH ×2 (10:12→22:22)
[2016-11-08] MEDS: POTASSIUM CHLORIDE 10 MEQ SR TABLET PO SCH (10:13)
[2016-11-08] MEDS: FUROSEMIDE 40 MG/4 ML VIAL (J1940) IV SCH ×2 (10:13→16:43)
[2016-11-08] MEDS: NYSTATIN 100,000 UNITS/GM TOPICAL PWD 15 GM TOP SCH ×3 (10:14→22:27)
[2016-11-08] MEDS: GENTAMICIN SULFATE 0.1% OINT 15 GM TOP SCH ×2 (10:14→22:27)
[2016-11-08] MEDS: ENOXAPARIN 30 MG/0.3 ML SYR (J1650) SC SCH (10:15)
[2016-11-08] MEDS ORDERED: MAG SULF 1GM/100ML (MAG RUN) 1 GM in APPROPRIATE DILUENT 1 EA IV ONE (11:15)
--- NOTE | 2016-11-08 11:24 | IPNPDOC ---
Date/Time Seen The patient was seen on 11/08/16 at 11:16. Progress Note DATE OF ENCOUNTER: 11/08/2016 SUBJECTIVE: Patient was seen this morning at bedside. She reports that she is feeling well. No acute overnight events and vitals are stable. Review of systems is positive for some mild nausea. Bowel habits are unchanged as she has chronic diarrhea. Negative for vomiting, abdominal pain, fever, chills, chest pain, shortness of breath. No dysuria or hematuria. Output of over 5L. Edema in lower extremity has improved. OBJECTIVE: Vital Signs Date Time Temp Pulse Resp B/P Pulse Ox O2 Delivery O2 Flow Rate FiO2 11/08/16 10:10 16 11/08/16 06:00 96.7 65 135/68 95 Room Air I&O- Last 24 Hours up to 6 AM 11/08/16 06:00 Intake Total 900 ml Output Total 5700 ml Balance -4800 ml GENERAL: Patient is alert and oriented, in no acute distress. Sitting up in the bed comfortably. HEENT: Normocephalic, atraumatic. Extraocular muscles are intact. Moist mucosa. NECK: Supple. No lymphadenopathy. Jugular venous pulsations are elevated. HEART: Normal S1-S2. Regular rate and rhythm. No murmur appreciated. LUNGS: Clear to auscultation bilaterally. ABDOMEN: Obese. Soft. Nontender. Bowel sounds are present. No rebound, guarding or rigidity. EXTREMITIES: Lower extremity edema present with some erythema on the left medial foot and right great toe. Extremities are warm and dry. Pulses are palpable. NEUROLOGIC: No focal deficits. Moving all extremities. LABORATORY DATA: 11/08/16 05:23 ASSESSMENT/PLAN: 1. Acute renal failure superimposed on chronic kidney disease. Renal function has improved. She remains significantly volume overloaded and will continue with Lasix 40 mg twice daily. She has an output of greater than 5 L and is diuresing well. No change being made to her diuretics. Electrolytes are stable. Supplemental potassium given with Lasix. Continue with current 1.5 L fluid restriction. Continue to monitor input and output. 2. Anemia. Hemoglobin is currently stable. No intervention needed at this time. 3. Hypomagnesemia. Mag run has been given. 4. Urinary retention. Patient is on Flomax. She reports that this has been an ongoing issue. The day that she was to see urology, she was admitted into the hospital. Will need outpatient urology follow-up. 5. Hypertension. Blood pressure appears stable. She is on Lasix, but no other antihypertensives that she was taking at home. 6. Left foot cellulitis and diabetic foot ulcer. She remains on Zyvox, as doxycycline has been discontinued. Status post debridement on 11/01. Being managed by primary team. GME ATTESTATION GME ATTESTATION My preceptor for this patient encounter was physically present in the building during the encounter and was fully available. As needed, all aspects of the patient interview, examination, medical decision making process, and medical care plan development were reviewed and approved by the preceptor. Preceptor is aware and concurs with the plan as stated in the body of this note and will attest to such by his/her cosignature. EMMANUEL LOPEZ DO Nov 08, 2016 11:24
[2016-11-08 14:00] VITALS: BP 160/77
[2016-11-08] MEDS: ALPRAZolam 0.5 MG TAB PO PRN (16:45)
[2016-11-08] MEDS ORDERED: WARFARIN SOD 5 MG TAB PO ONE (17:00)
--- NOTE | 2016-11-08 17:10 | IPNPDOC ---
Assessment/Plan Date Seen The patient was seen on 11/08/16. Problems Problems: (1) Cellulitis of left foot Status: Acute Problem Text: s/p bedside debridement with Dr. Guerra 10/27/16 WCX heavy E. faecalis, S. agalactiae Now receiving cefotetan and I am, as she currently lacks IV access. Day 7 cefotetan. 11/04/2016: on review of cx and sens. Patient sensitive to Levaquin for both organisms. Will switch to Levaquin 250 mg (renal dosing) po daily. Patient is without IV access. Working on Jenelle catheter. Will schedule tomorrow now that INR is 2.05 11/05/2016: changed to linezolid and doxycycline 11/06/2016 increased erythema/induration at l plantar wound and new onset R toe erythema/induration c small amt pus draining from nail [id number] d/w Dr. Scott who agrees linezolid should be adequate coverage for both 10/27 organisms (and prefer to avoid using catheter) 11/07/2016: improving. Monitor CRP, ESR. Continue current antibiotics-both L foot , R 1 toe improved 11/08/16: Patient states that Dr. Guerra plans to come for repeat bedside debridement of left foot and right great toe; MRI of right foot is negative for ostemyelitis. Continue linezolid. Monitor CRP, ESR. (2) Acute kidney failure Status: Acute Response to Treatment: Worse Problem Specific Plan: Consult Specialist Problem Text: Initial Cr was 3.1; baseline cr 1.3; trending down though patient is still fluid overloaded - nephrology is following. (3) Diabetic foot ulcer Status: Acute Problem Text: s/p bedside debridement with Dr. Guerra. Podiatry continues to follow. (4) Diabetes mellitus Status: Chronic Response to Treatment: Uncontrolled Problem Specific Plan: Monitor Clinically Problem Text: Continue home toujeo and short-acting insulin with meals. (5) HTN (hypertension) Status: Chronic Response to Treatment: Stable Problem Specific Plan: Monitor Clinically Problem Text: Atenolol on HOLD due to beta calin toxicity in presence of MELODY. Monitor BP and HR. (6) Asthma Status: Chronic Response to Treatment: Stable (7) Bipolar disorder Status: Chronic Response to Treatment: Stable Problem Specific Plan: Monitor Clinically (8) Narcotic dependence Status: Chronic (9) Recurrent deep vein thrombosis (DVT) Status: Acute Problem Text: .1 gave 5 c Lovenox 30 11/06 INR 1.2: warfarin resumed at 5mg po today (HD 1.5) 11/08: still subtherapeutic after 5 mg PO x2 days; repeat dose of 5 mg PO today (10) Cellulitis of right toe Status: Acute Problem Text: negative cx. MRI negative for ostemyelitis. Plan / VTE VTE Prophylaxis Ordered?: Yes (coumadin. daily INR) Plan / Urinary Catheter Reason for insertion/continuin: Acute obstruct/retention Subjective Review of Systems CC/HPI The patient is a 46-year-old female admitted with a reason for visit of Cellulitis/Diabetic Foot Ulcer. Constitutional: Denies: Chills, Fever ENT: Denies: Head Aches Skin: Reports: Rash (bottom of left foot, side of left foot; right great toe) Pulmonary: Denies: Dyspnea Cardiovascular: Denies: Chest Pain Gastrointestinal: Denies: Abdominal Pain, Nausea, Vomiting Neurological: Denies: Numbness, Weakness Psych: Reports: Mood Normal Objective Physical Examination General Exam: Positive: Alert, No Acute Distress ENT Exam: Positive: Atraumatic Neck Exam: Positive: Supple, Negative: JVD Chest Exam: Positive: Clear to auscultation, Normal air movement Heart Exam: Positive: Normal S1, Normal S2, Rate Normal Abdomen Exam: Positive: Normal bowel sounds, Soft, Negative: Tenderness Extremity Exam: Positive: Clubbing (LLE with bracing: Charcot foot), Edema ( bilateral lower extremities), Other (LLE: erythema, warmth spreading up medial foot and ankle; area of previous debridement on plantar left foot with no discharge; Right foot: 1st toe with erythema and warmth. ) Vital Signs/I&O Vital Signs Date Time Temp Pulse Resp B/P Pulse Ox O2 Delivery O2 Flow Rate FiO2 11/08/16 15:13 16 11/08/16 14:00 96.8 84 160/77 94 Room Air 11/02/16 18:00 1.0 I&O- Last 24 Hours up to 6 AM 11/08/16 06:00 Intake Total 900 ml Output Total 5700 ml Balance -4800 ml Laboratory Data Labs 24H Laboratory Tests 2 11/07/16 17:24: Bedside Glucose (Misc Panel) 146H 11/07/16 20:52: Bedside Glucose (Misc Panel) 180H 11/08/16 05:23: Albumin 2.9L, Blood Urea Nitrogen 48H, Creatinine 1.54H, Sodium Level 145, Potassium Level 4.4, Chloride Level 106, Carbon Dioxide Level 29, Anion Gap 10, C-Reactive Protein, Quantitative 2.99H, Calcium Level 8.5, Erythrocyte Sedimentation Rate 81H, Glomerular Filtration Rate 38.4L, Magnesium Level 1.6L, Phosphorus Level 4.1, Prothromb Time International Ratio 1.41, Prothrombin Time 17.4H 11/08/16 10:13: Bedside Glucose (Misc Panel) 358H 11/08/16 11:44: Bedside Glucose (Misc Panel) 209H CBC/BMP Laboratory Tests 11/08/16 05:23 Anion Gap 10, Red Blood Count 3.47 L, Mean Corpuscular Volume 86.0, Mean Corpuscular Hemoglobin 28.8, Mean Corpuscular Hemoglobin Concent 33.5, Red Cell Distribution Width 13.6 FSBS Laboratory Tests Test 11/07/16 17:24 11/07/16 20:52 11/08/16 10:13 11/08/16 11:44 Range/Units Bedside Glucose (Misc Panel) 146 180 358 209 70-105 MG/DL Microbiology Microbiology 10/29/16 Blood Culture - Final, Complete NO GROWTH AFTER 5 DAYS 10/29/16 Blood Culture - Final, Complete NO GROWTH AFTER 5 DAYS 11/04/16 MRSA Screen - Final, Complete 11/02/16 MRSA Screen - Final, Complete 11/06/16 Gram Stain - Final, Complete 11/06/16 Wound Culture - Final, Complete 11/06/16 Anaerobic Culture - Final, Complete RIAZ LOPEZ MD Nov 08, 2016 17:10
[2016-11-08 22:00] VITALS: BP 155/77
[2016-11-08] MEDS: LIDOCAINE 1% MDV 20ML VIAL IM SCH (22:00)
[2016-11-08] MEDS: rOPINIRole 1MG TAB PO SCH (22:22)
[2016-11-08] MEDS: QUEtiapine FUMARATE 200 MG TAB PO SCH (22:24)
[2016-11-08] MEDS: FAMOTIDINE 20 MG TAB PO SCH (22:24)
[2016-11-08] MEDS: traZODone 100 MG TAB PO SCH (22:24)
[2016-11-08] MEDS: MONTELUKAST 10 MG TAB PO SCH (22:25)
[2016-11-08] MEDS: OXcarbazepine 300 MG TAB PO SCH (22:25)
[2016-11-09] MEDS: ALPRAZolam 0.5 MG TAB PO PRN ×2 (00:09→16:13)
[2016-11-09] MEDS: SODIUM CHLORIDE 0.9% INJ 10 ML SYR IV PRN ×4 (05:05→13:22)
[2016-11-09 05:45] LABS: INR 1.63
[2016-11-09 06:00] VITALS: BP 123/77
[2016-11-09] MEDS: PERCOCET 5MG/325MG TAB PO PRN ×3 (07:00→20:18)
[2016-11-09] MEDS: ONDANSETRON 4MG/2ML VIAL (J2405) IV PRN ×3 (07:00→20:18)
[2016-11-09] MEDS: HUMALOG 200 UNIT/ML SQ SCH ×3 (07:30→17:30)
[2016-11-09] MEDS: SYMBICORT 80/4.5MCG INHALER 6GM INH SCH ×2 (07:32→19:47)
[2016-11-09] MEDS: IPRATROPIUM 0.5MG/ALBUTEROL 2.5MG INH SOL UD 3ML (DUONEB)(J7620) NEB SCH ×2 (07:34→16:00)
[2016-11-09 07:46] LABS: ALBUMIN 2.8 GM/DL (3.2-5.2); CALCIUM LEVEL 8.4 MG/DL (8.5-10.1); CREATININE FOR GFR 1.63 MG/DL (0.55-1.02); PHOSPHORUS LEVEL 5.5 MG/DL (2.5-4.9)
[2016-11-09] MEDS: FUROSEMIDE 40 MG/4 ML VIAL (J1940) IV SCH ×2 (08:29→16:13)
[2016-11-09] MEDS: TOUJEO 300 UNIT/ML SQ SCH ×2 (08:29→20:19)
[2016-11-09] MEDS: ENOXAPARIN 30 MG/0.3 ML SYR (J1650) SC SCH (08:30)
[2016-11-09] MEDS: DULoxetine 30 MG CAP (CYMBALTA) PO SCH ×2 (08:30→20:17)
[2016-11-09] MEDS: LINEZOLID 600MG TABLET (ZYVOX) PO SCH ×2 (08:31→20:17)
[2016-11-09] MEDS: POTASSIUM CHLORIDE 10 MEQ SR TABLET PO SCH (08:31)
[2016-11-09] MEDS: PREGABALIN 100 MG CAP (LYRICA) PO SCH ×2 (08:31→20:19)
[2016-11-09] MEDS: SENOKOT S TAB PO SCH ×2 (08:31→20:17)
[2016-11-09] MEDS: TAMSULOSIN 0.4 MG CAP PO SCH (08:31)
[2016-11-09] MEDS: METOCLOPRAMIDE 5 MG TAB PO SCH ×3 (08:31→20:16)
[2016-11-09] MEDS: GENTAMICIN SULFATE 0.1% OINT 15 GM TOP SCH ×2 (08:32→20:20)
[2016-11-09] MEDS: OMEPRAZOLE 20 MG CAP PO SCH ×2 (08:32→20:17)
[2016-11-09] MEDS: NYSTATIN 100,000 UNITS/GM TOPICAL PWD 15 GM TOP SCH ×3 (08:33→20:20)
--- NOTE | 2016-11-09 10:53 | IPNPDOC ---
Assessment/Plan Date Seen The patient was seen on 11/09/16. Problems Problems: (1) Cellulitis of left foot Status: Acute Problem Text: s/p bedside debridement with Dr. Guerra linezolid D4 10/27/16 WCX heavy E. faecalis, S. agalactiae Now receiving cefotetan and I am, as she currently lacks IV access. Day 7 cefotetan. 11/04/2016: on review of cx and sens. Patient sensitive to Levaquin for both organisms. Will switch to Levaquin 250 mg (renal dosing) po daily. Patient is without IV access. Working on Jenelle catheter. Will schedule tomorrow now that INR is 2.05 11/05/2016: changed to linezolid and doxycycline 11/06/2016 increased erythema/induration at l plantar wound and new onset R toe erythema/induration c small amt pus draining from nail [id number] d/w Dr. Scott who agrees linezolid should be adequate coverage for both 10/27 organisms (and prefer to avoid using catheter) 11/07/2016: improving. Monitor CRP, ESR. Continue current antibiotics-both L foot , R 1 toe improved 11/08/16: Patient states that Dr. Guerra plans to come for repeat bedside debridement of left foot and right great toe; MRI of right foot is negative for ostemyelitis. Continue linezolid. Monitor CRP, ESR. 11/09 - Dr Guerra per pt performed some bedside debridement today. Linezolid D #4 po, Abx 11.WBC nl, ESR, CRP continue to trend down. (2) Acute kidney failure Status: Acute Response to Treatment: Worse Problem Specific Plan: Consult Specialist Problem Text: Initial Cr was 3.1; baseline cr 1.3; trending down though patient is still fluid overloaded - nephrology is following. 11/09 - Scr increased slightly today. baseline appears to be about 1.3- 1.6. (3) Diabetic foot ulcer Status: Acute Problem Text: s/p bedside debridement with Dr. Guerra. Podiatry continues to follow. (4) Diabetes mellitus Status: Chronic Response to Treatment: Uncontrolled Problem Specific Plan: Monitor Clinically Problem Text: Continue home toujeo and short-acting insulin with meals. (5) HTN (hypertension) Status: Chronic Response to Treatment: Stable Problem Specific Plan: Monitor Clinically Problem Text: Atenolol on HOLD due to beta calin toxicity in presence of MELODY. Monitor BP and HR. (6) Asthma Status: Chronic Response to Treatment: Stable (7) Bipolar disorder Status: Chronic Response to Treatment: Stable Problem Specific Plan: Monitor Clinically (8) Narcotic dependence Status: Chronic (9) Recurrent deep vein thrombosis (DVT) Status: Acute Problem Text: .1 gave 5 c Lovenox 30 11/06 INR 1.2: warfarin resumed at 5mg po today (HD 1.5) 11/08: still subtherapeutic after 5 mg PO x2 days; repeat dose of 5 mg PO today (10) Cellulitis of right toe Status: Acute Problem Text: negative cx. MRI negative for ostemyelitis. Plan / VTE VTE Prophylaxis Ordered?: Yes (coumadin. daily INR) Plan / Urinary Catheter Reason for insertion/continuin: Acute obstruct/retention Plan Plan Text plan for d/c in 1-2 days Subjective Review of Systems CC/HPI Pt without new concerns. She feels very tired. She states that Dr Guerra came into this morning, performed debridement of the extremity. General: Denies: Fatigue Constitutional: Denies: Chills, Fever ENT: Denies: Head Aches Pulmonary: Denies: Cough, Dyspnea Cardiovascular: Denies: Chest Pain, Palpitations Gastrointestinal: Denies: Diarrhea, Nausea, Vomiting Neurological: Denies: Weakness Psych: Reports: Mood Normal Objective Physical Examination General Exam: Positive: Alert, No Acute Distress ENT Exam: Positive: Atraumatic Neck Exam: Positive: Supple, Negative: JVD Chest Exam: Positive: Clear to auscultation, Normal air movement Heart Exam: Positive: Normal S1, Normal S2, Rate Normal Abdomen Exam: Positive: Normal bowel sounds, Soft, Negative: Tenderness Extremity Exam: Positive: Clubbing (LLE with bracing: Charcot foot), Edema ( bilateral lower extremities 2 mm pitting edema), Other (LLE: erythema, warmth spreading up medial foot and ankle; area of previous debridement on plantar left foot with no discharge; Right foot: 1st toe with erythema and warmth. ) Vital Signs/I&O Vital Signs Date Time Temp Pulse Resp B/P Pulse Ox O2 Delivery O2 Flow Rate FiO2 11/09/16 07:44 16 11/09/16 07:00 97 Room Air 11/09/16 06:05 94.9 11/09/16 06:00 63 123/77 I&O- Last 24 Hours up to 6 AM 11/09/16 06:00 Intake Total 880 ml Output Total 2800 ml Balance -1920 ml Laboratory Data Labs 24H Laboratory Tests 2 11/08/16 11:44: Bedside Glucose (Misc Panel) 209H 11/08/16 16:48: Bedside Glucose (Misc Panel) 64L 11/08/16 20:40: Bedside Glucose (Misc Panel) 103 11/09/16 05:06: Albumin 2.8L, Blood Urea Nitrogen 51H, Creatinine 1.63H, Sodium Level 144, Potassium Level 4.0, Chloride Level 103, Carbon Dioxide Level 30, Anion Gap 11, C-Reactive Protein, Quantitative 2.31H, Calcium Level 8.4L, Erythrocyte Sedimentation Rate 74H, Glomerular Filtration Rate 36.0L, Phosphorus Level 5.5#H , Prothromb Time International Ratio 1.63, Prothrombin Time 19.4H, Vitamin B12 Level 509 11/09/16 06:09: Bedside Glucose (Misc Panel) 53L 11/09/16 06:52: Bedside Glucose (Misc Panel) 101 CBC/BMP Laboratory Tests 11/09/16 05:06 Anion Gap 11 FSBS Laboratory Tests Test 11/08/16 11:44 11/08/16 16:48 11/08/16 20:40 11/09/16 06:09 Range/Units Bedside Glucose (Misc Panel) 209 64 103 53 70-105 MG/DL Test 11/09/16 06:52 Range/Units Bedside Glucose (Misc Panel) 101 70-105 MG/DL Microbiology Microbiology 11/04/16 MRSA Screen - Final, Complete 11/02/16 MRSA Screen - Final, Complete 11/06/16 Gram Stain - Final, Complete 11/06/16 Wound Culture - Final, Complete 11/06/16 Anaerobic Culture - Final, Complete LATASHA STRANGE PA-C Nov 09, 2016 10:53 Rashid Morgan M.D. Nov 09, 2016 17:20
--- NOTE | 2016-11-09 13:11 | IPNPDOC ---
Date/Time Seen The patient was seen on 11/09/16 at 12:58. Progress Note DATE OF ENCOUNTER: 11/09/2016 SUBJECTIVE: Patient was seen this morning at bedside. She reports that she is feeling well. No acute overnight events. Her foot was debrided this morning. She reports that swelling has improved. She does note continued erythema of her lower extremity. She is afebrile and CRP is trending down. Review of systems is positive for chronic diarrhea, unchanged. Negative for vomiting, abdominal pain, fever, chills, chest pain, shortness of breath. No dysuria or hematuria. OBJECTIVE: Vital Signs Date Time Temp Pulse Resp B/P Pulse Ox O2 Delivery O2 Flow Rate FiO2 11/09/16 09:30 Room Air 11/09/16 09:30 16 11/09/16 07:00 97 11/09/16 06:05 94.9 11/09/16 06:00 63 123/77 I&O- Last 24 Hours up to 6 AM 11/09/16 05:59 Intake Total 1060 ml Output Total 3400 ml Balance -2340 ml GENERAL: Patient is alert and oriented, in no acute distress. Sitting up in the bed comfortably. HEENT: Normocephalic, atraumatic. Extraocular muscles are intact. Moist mucosa. NECK: Supple. Jugular venous pulsations are elevated at the level of the earlobe. HEART: Normal S1-S2. Regular rate and rhythm. No murmur appreciated. LUNGS: Clear to auscultation bilaterally. ABDOMEN: Obese. Soft. Nontender. Bowel sounds are present. No rebound, guarding or rigidity. EXTREMITIES: Lower extremity edema present with some erythema on the left medial foot. Extremities are warm and dry. Pulses are palpable. NEUROLOGIC: No focal deficits. Moving all extremities. LABORATORY DATA: 11/09/16 05:06 ASSESSMENT/PLAN: 1. Acute renal failure superimposed on chronic kidney disease. She remains volume overloaded and we will continue with current dose of Lasix. She put out a little over 4 liters and seems to be diuresing well. Edema is improved. Electrolytes are stable. Continue with current 1.5 L fluid restriction. We will see what happens to her renal function over the next 24-48 hours. 2. Anemia. Last hemoglobin was stable. No intervention needed at this time. 3. Urinary retention. Patient is on Flomax. She reports that this has been an ongoing issue. The day that she was to see urology, she was admitted into the hospital. Will need outpatient urology follow-up. 4. Hypertension. Blood pressure appears stable. She is on Lasix, but no other antihypertensives that she was taking at home. 5. Left foot cellulitis and diabetic foot ulcer. She remains on Zyvox. Status post debridement on 11/01 and 11/09. 6. History of Factor V Leiden and DVT. Patient is on Coumadin, being bridged with Lovenox. INR is not yet therapeutic. Being managed by primary team. GME ATTESTATION GME ATTESTATION My preceptor for this patient encounter was physically present in the building during the encounter and was fully available. As needed, all aspects of the patient interview, examination, medical decision making process, and medical care plan development were reviewed and approved by the preceptor. Preceptor is aware and concurs with the plan as stated in the body of this note and will attest to such by his/her cosignature. EMMANUEL LOPEZ DO Nov 09, 2016 13:11
[2016-11-09 14:00] VITALS: BP 144/69
[2016-11-09] MEDS ORDERED: WARFARIN SOD 5 MG TAB PO ONE (17:00)
[2016-11-09] MEDS: QUEtiapine FUMARATE 200 MG TAB PO SCH (20:16)
[2016-11-09] MEDS: rOPINIRole 1MG TAB PO SCH (20:16)
[2016-11-09] MEDS: traZODone 100 MG TAB PO SCH (20:16)
[2016-11-09] MEDS: FAMOTIDINE 20 MG TAB PO SCH (20:17)
[2016-11-09] MEDS: OXcarbazepine 300 MG TAB PO SCH (20:17)
[2016-11-09] MEDS: MONTELUKAST 10 MG TAB PO SCH (20:17)
[2016-11-09] MEDS: LIDOCAINE 1% MDV 20ML VIAL IM SCH (20:20)
[2016-11-09 22:00] VITALS: BP 126/74
[2016-11-10] MEDS: PERCOCET 5MG/325MG TAB PO PRN ×5 (00:32→22:03)
[2016-11-10] MEDS: ONDANSETRON 4MG/2ML VIAL (J2405) IV PRN ×3 (05:13→21:59)
[2016-11-10] MEDS: SODIUM CHLORIDE 0.9% INJ 10 ML SYR IV PRN ×3 (05:14→22:05)
[2016-11-10 05:50] LABS: INR 2.1
[2016-11-10 05:53] LABS: ALBUMIN 2.8 GM/DL (3.2-5.2); CALCIUM LEVEL 7.9 MG/DL (8.5-10.1); CREATININE FOR GFR 1.62 MG/DL (0.55-1.02); GLOMERULAR FILTRATION RATE 36.3 (>58); MAGNESIUM LEVEL 1.7 MG/DL (1.8-2.4); POTASSIUM SERUM 4.4 MEQ/L (3.5-5.1)
[2016-11-10 06:00] VITALS: BP 131/63
[2016-11-10 06:01] LABS: MEAN CORPUSCULAR HEMOGLOBIN 28.8 pg (27.0-33.0); MEAN CORPUSCULAR HGB CONC 34.4 g/dl (32.0-36.5); MEAN CORPUSCULAR VOLUME 83.7 fl (80.0-96.0); RED CELL DISTRIBUTION WIDTH 13.7 % (11.5-14.5); WHITE BLOOD COUNT 5.9 K/mm3 (4.0-10.0)
[2016-11-10] MEDS: IPRATROPIUM 0.5MG/ALBUTEROL 2.5MG INH SOL UD 3ML (DUONEB)(J7620) NEB SCH ×4 (08:00→19:50)
[2016-11-10] MEDS: SYMBICORT 80/4.5MCG INHALER 6GM INH SCH ×2 (08:14→19:49)
--- NOTE | 2016-11-10 09:50 | IPNPDOC ---
Date/Time Seen The patient was seen on 11/10/16 at 09:47. Progress Note DATE OF ENCOUNTER: 11/10/2016 SUBJECTIVE: Patient was seen this morning at bedside. She reports that she is feeling well. No acute overnight events. She reports that swelling has improved. She continues to have problems with voiding, except when Lasix is given. She is afebrile, however ESR and CRP are trending up. Review of systems is positive for chronic diarrhea which is unchanged as she is being worked up for Crohn's disease. Also positive for chronic intermittent nausea, unchanged. Negative for vomiting, abdominal pain, fever, chills, chest pain, shortness of breath. No dysuria or hematuria, but has trouble with her stream. OBJECTIVE: Vital Signs Date Time Temp Pulse Resp B/P Pulse Ox O2 Delivery O2 Flow Rate FiO2 11/10/16 07:52 16 11/10/16 06:00 96.3 75 131/63 92 Room Air I&O- Last 24 Hours up to 6 AM 11/10/16 06:00 Intake Total 940 ml Output Total 4600 ml Balance -3660 ml GENERAL: Patient is alert and oriented, in no acute distress. Sitting up in the bed comfortably. HEENT: Normocephalic, atraumatic. Extraocular muscles are intact. Moist mucosa. NECK: Supple. Jugular venous pulsations are elevated, at the angle of the jaw. HEART: Normal S1-S2. Regular rate and rhythm. No murmur appreciated. LUNGS: Clear to auscultation bilaterally. ABDOMEN: Obese. Soft. Nontender. Bowel sounds are present. No rebound, guarding or rigidity. EXTREMITIES: Lower extremity edema present with some erythema on the left medial foot. She has an ulceration of the plantar left foot. Extremities are warm and dry. Pulses are palpable. NEUROLOGIC: No focal deficits. Moving all extremities. LABORATORY DATA: 11/10/16 05:13 ASSESSMENT/PLAN: 1. Acute renal failure superimposed on chronic kidney disease. She remains volume overloaded and we will continue with current dose of Lasix. She put out a little over 4 liters and seems to be diuresing well. Edema is improved. Electrolytes are stable. Continue with current 1.5 L fluid restriction. Continue to monitor intake and output. Avoid nephrotoxic medications. 2. Urinary hesitancy/retention. She reports that she continues to have trouble voiding, except when she is given Lasix. A post void residual will be obtained today. She reports that she had an appointment to see urology about this, but she missed her appointment due to being hospitalized. She will need to reschedule outpatient followup. She is currently on Flomax. 3. Hypomagnesemia. Mag run has been given. 4. Anemia. Hemoglobin is stable. No intervention needed at this time. 5. Hypertension. Blood pressure is stable. She is on Lasix, but no other antihypertensives that she was taking at home. 6. Left foot cellulitis and diabetic foot ulcer. She remains on Zyvox. Status post debridement on 11/01 and 11/09. She had MRI of the right foot on 11/07 which did not show any evidence of osteomyelitis. MRI of the left foot obtained today , results pending. Inflammatory markers are trending up. Being managed by primary team. GME ATTESTATION GME ATTESTATION My preceptor for this patient encounter was physically present in the building during the encounter and was fully available. As needed, all aspects of the patient interview, examination, medical decision making process, and medical care plan development were reviewed and approved by the preceptor. Preceptor is aware and concurs with the plan as stated in the body of this note and will attest to such by his/her cosignature. EMMANUEL LOPEZ DO Nov 10, 2016 09:50
[2016-11-10] MEDS: FUROSEMIDE 40 MG/4 ML VIAL (J1940) IV SCH ×2 (10:59→17:09)
[2016-11-10] MEDS: POTASSIUM CHLORIDE 10 MEQ SR TABLET PO SCH (11:00)
[2016-11-10] MEDS: OMEPRAZOLE 20 MG CAP PO SCH ×2 (11:00→22:01)
[2016-11-10] MEDS: METOCLOPRAMIDE 5 MG TAB PO SCH ×3 (11:00→22:02)
[2016-11-10] MEDS ORDERED: MAG SULF 1GM/100ML (MAG RUN) 1 GM in APPROPRIATE DILUENT 1 EA IV ONE (11:00)
[2016-11-10] MEDS: PREGABALIN 100 MG CAP (LYRICA) PO SCH ×2 (11:01→22:00)
[2016-11-10] MEDS: SENOKOT S TAB PO SCH ×2 (11:02→22:02)
[2016-11-10] MEDS: TAMSULOSIN 0.4 MG CAP PO SCH (11:02)
[2016-11-10] MEDS: DULoxetine 30 MG CAP (CYMBALTA) PO SCH ×2 (11:02→22:01)
[2016-11-10] MEDS: NYSTATIN 100,000 UNITS/GM TOPICAL PWD 15 GM TOP SCH ×3 (11:03→22:05)
[2016-11-10] MEDS: ENOXAPARIN 30 MG/0.3 ML SYR (J1650) SC SCH (11:04)
[2016-11-10] MEDS: GENTAMICIN SULFATE 0.1% OINT 15 GM TOP SCH ×2 (11:04→22:06)
[2016-11-10] MEDS: LINEZOLID 600MG TABLET (ZYVOX) PO SCH ×2 (11:06→22:04)
[2016-11-10] MEDS: HUMALOG 200 UNIT/ML SQ SCH ×4 (11:06→17:09)
[2016-11-10] MEDS: TOUJEO 300 UNIT/ML SQ SCH ×2 (11:09→21:00)
--- NOTE | 2016-11-10 11:19 | REP ---
MRI LEFT FOOT WITHOUT AND WITH IV GADOLINIUM: HISTORY: Question medial midfoot abscess. Rule out osteomyelitis. Comparison MRI study is from May 27, 2016. Comparison radiographs are from May 27, 2016. Gadolinium enhancement dose: Half-dose protocol, 12 mL of intravenous gadolinium is administered. TECHNIQUE: Axial, coronal and sagittal imaging planes are utilized for T1, proton density and T2-weighted scans obtained in the usual fashion with and without fat saturation. MRI FINDINGS: As displayed previously on radiographs and MR, this patient has severe midfoot neuropathic arthropathy with collapse of the tarsal arch fragmentation, some varus mid foot deformity, and extensive marrow edematous changes throughout the bones and joints of the midfoot. There is significant fragmentation and medial lateral splaying of the cuneiform and cuboid tarsal bones as before. There is tibiotalar ankle joint arthropathy as well with areas of subcortical marrow edema and a osteochondral defect lesion in the medial talar dome. This is not new and is seen on the June 05, 2016 prior study. There are extensive areas of T2 marrow edema but there are does not appear to be a compelling low signal intensity on T1-weighted scans to suggest areas of active osteomyelitis. There is extensive periarticular soft tissue edema and enhancement postcontrast throughout the mid foot. No soft tissue abscess is seen however today. There was a complex fluid collection visible on June 05, 2011 in the midfoot laterally which appears to have resolved. IMPRESSION: Evidence of advanced neuropathic arthropathy. Diffuse swelling and soft tissue enhancement. No abscess seen. No compelling evidence of osteomyelitis. Signed by Obdulio Ruiz MD 11/10/2016 06:34 P
[2016-11-10 14:00] VITALS: BP 160/60
[2016-11-10] MEDS ORDERED: WARFARIN SOD 5 MG TAB PO ONE (17:00)
[2016-11-10] MEDS: QUEtiapine FUMARATE 200 MG TAB PO SCH (21:59)
[2016-11-10 22:00] VITALS: BP 139/80
[2016-11-10] MEDS: LIDOCAINE 1% MDV 20ML VIAL IM SCH (22:00)
[2016-11-10] MEDS: MONTELUKAST 10 MG TAB PO SCH (22:01)
[2016-11-10] MEDS: rOPINIRole 1MG TAB PO SCH (22:01)
[2016-11-10] MEDS: FAMOTIDINE 20 MG TAB PO SCH (22:02)
[2016-11-10] MEDS: OXcarbazepine 300 MG TAB PO SCH (22:02)
[2016-11-10] MEDS: traZODone 100 MG TAB PO SCH (22:03)
--- NOTE | 2016-11-10 23:26 | IPNPDOC ---
Assessment/Plan Date Seen The patient was seen on 11/10/16. Problems Problems: (1) Acute kidney failure Status: Acute Response to Treatment: Worse Problem Specific Plan: Consult Specialist Problem Text: Cr. of 4.16 noted today. Nephrology following. Fluid stopped. MAXINE on hold. Urine output remains low. Bishop in place. 11/03/2016: IVF stopped. Cr 3.1 today. monitor. Bishop draining. 11/04/2016: Nephro continues to follow. Cr. down to 2.1 today. 11/05/2016: Cr. 1.7. Placed on Bumex for fluid retention 11/10: Nephro continues to follow, Cr. 1.6 today and has been relatively stable for the last few days. (2) Cellulitis of left foot Status: Acute Problem Text: s/p bedside debridement with Dr. Guerra. Now receiving cefotetan and I am, as she currently lacks IV access. Day 7 cefotetan. 11/04/2016: on review of cx and sens. Patient sensitive to Levaquin for both organisms. Will switch to Levaquin 250 mg (renal dosing) po daily. Patient is without IV access. Working on Jenelle catheter. Will schedule tomorrow now that INR is 2.05 11/10: On linezolid and topical gent; cellulitis has receded from previously marked borders, patient feels that it has improved (I have not seen it before for comparison.) (3) Diabetic foot ulcer Status: Acute Problem Text: s/p bedside debridement with Dr. Guerra. Podiatry continues to follow. (4) Diabetes mellitus Status: Chronic Response to Treatment: Uncontrolled Problem Specific Plan: Monitor Clinically (5) HTN (hypertension) Status: Chronic Response to Treatment: Stable Problem Specific Plan: Monitor Clinically Problem Text: Atenolol on HOLD due to beta calin toxicity in presence of MELODY. Monitor BP and HR. (6) Asthma Status: Chronic Response to Treatment: Stable (7) Confusion Status: Resolved Problem Text: s/p episode of confusion. ? related to opioid use. Will monitor. (8) Bipolar disorder Status: Chronic Response to Treatment: Stable Problem Specific Plan: Monitor Clinically (9) Narcotic dependence Status: Chronic (10) Obesity Status: Chronic (11) Recurrent deep vein thrombosis (DVT) Status: Acute Problem Text: INR 3.87. Will HOLD coumadin. Repeat INR in am. Plan / VTE VTE Prophylaxis Ordered?: Yes (coumadin. daily INR) Plan / Urinary Catheter Reason for insertion/continuin: Acute obstruct/retention Subjective Review of Systems CC/HPI The patient is a 46-year-old female admitted with a reason for visit of Cellulitis/Diabetic Foot Ulcer. Events since last encounter Patient states she is feeling somewhat better. She has now had MRIs of both feet within the last 4 days, demonstrating no abscesses in her feet bilaterally. The erythema has receded from the marked boundaries on her feet, though she still notes discharge. Constitutional: Reports: Chills, Fever Pulmonary: Denies: Cough, Dyspnea Cardiovascular: Denies: Chest Pain Gastrointestinal: Reports: Diarrhea ("sometimes"), Nausea, Denies: Abdominal Pain Musculoskeletal: Reports: Foot Pain (bilat) Objective Physical Examination General Exam: Positive: Alert, No Acute Distress ENT Exam: Positive: Atraumatic Neck Exam: Positive: Supple, Negative: JVD Chest Exam: Positive: Clear to auscultation, Normal air movement Heart Exam: Positive: Normal S1, Normal S2, Rate Normal Abdomen Exam: Positive: Normal bowel sounds, Soft, Negative: Tenderness Extremity Exam: Positive: Clubbing (LLE with bracing: Charcot foot), Edema (+ 2 LLE), Other (R great toe erythematous and swollen; ulcer on the plantar surface of L foot with no current drainage), Tenderness Skin Exam: Positive: Nl turgor and temperature Vital Signs/I&O Vital Signs Date Time Temp Pulse Resp B/P Pulse Ox O2 Delivery O2 Flow Rate FiO2 11/10/16 22:33 18 95 Room Air 11/10/16 14:00 97.3 98 160/60 I&O- Last 24 Hours up to 6 AM 11/10/16 06:00 Intake Total 940 ml Output Total 4600 ml Balance -3660 ml Laboratory Data Labs 24H Laboratory Tests 2 11/10/16 05:13: Albumin 2.8L, Blood Urea Nitrogen 49H, Creatinine 1.62H, Sodium Level 141, Potassium Level 4.4, Chloride Level 103, Carbon Dioxide Level 31, Anion Gap 7L, C-Reactive Protein, Quantitative 3.23H, Calcium Level 7.9L, Erythrocyte Sedimentation Rate 107H, Glomerular Filtration Rate 36.3L, Magnesium Level 1.7L , Phosphorus Level 5.0H, Prothromb Time International Ratio 2.10, Prothrombin Time 23.6H 11/10/16 11:45: Bedside Glucose (Misc Panel) 201H 11/10/16 16:39: Bedside Glucose (Misc Panel) 65L 11/10/16 17:29: Bedside Glucose (Misc Panel) 113H 11/10/16 21:22: Bedside Glucose (Misc Panel) 240H CBC/BMP Laboratory Tests 11/10/16 05:13 Anion Gap 7 L, Red Blood Count 3.44 L, Mean Corpuscular Volume 83.7, Mean Corpuscular Hemoglobin 28.8, Mean Corpuscular Hemoglobin Concent 34.4, Red Cell Distribution Width 13.7 FSBS Laboratory Tests Test 11/10/16 11:45 11/10/16 16:39 11/10/16 17:29 11/10/16 21:22 Range/Units Bedside Glucose (Misc Panel) 201 65 113 240 70-105 MG/DL Microbiology Microbiology 11/04/16 MRSA Screen - Final, Complete 11/02/16 MRSA Screen - Final, Complete 11/06/16 Gram Stain - Final, Complete 11/06/16 Wound Culture - Final, Complete 11/06/16 Anaerobic Culture - Final, Complete NEETA SLOAN DO Nov 10, 2016 23:26
[2016-11-11] MEDS: ONDANSETRON 4MG/2ML VIAL (J2405) IV PRN (05:25)
[2016-11-11] MEDS: SODIUM CHLORIDE 0.9% INJ 10 ML SYR IV PRN (05:26)
[2016-11-11] MEDS: PERCOCET 5MG/325MG TAB PO PRN ×2 (05:26→09:29)
[2016-11-11 06:00] VITALS: BP 135/66
[2016-11-11 06:04] LABS: INR 2.35
[2016-11-11 06:06] LABS: ALBUMIN 2.8 GM/DL (3.2-5.2); CALCIUM LEVEL 8.8 MG/DL (8.5-10.1); CREATININE FOR GFR 1.43 MG/DL (0.55-1.02); GLOMERULAR FILTRATION RATE 41.9 (>58); PHOSPHORUS LEVEL 4.6 MG/DL (2.5-4.9); POTASSIUM SERUM 4.1 MEQ/L (3.5-5.1)
[2016-11-11] MEDS: IPRATROPIUM 0.5MG/ALBUTEROL 2.5MG INH SOL UD 3ML (DUONEB)(J7620) NEB SCH (07:16)
[2016-11-11] MEDS: SYMBICORT 80/4.5MCG INHALER 6GM INH SCH (07:17)
[2016-11-11] MEDS: FUROSEMIDE 40 MG/4 ML VIAL (J1940) IV SCH (09:18)
[2016-11-11] MEDS: GENTAMICIN SULFATE 0.1% OINT 15 GM TOP SCH (09:18)
[2016-11-11] MEDS: POTASSIUM CHLORIDE 10 MEQ SR TABLET PO SCH (09:19)
[2016-11-11] MEDS: ENOXAPARIN 30 MG/0.3 ML SYR (J1650) SC SCH (09:19)
[2016-11-11] MEDS: OMEPRAZOLE 20 MG CAP PO SCH (09:19)
[2016-11-11] MEDS: TAMSULOSIN 0.4 MG CAP PO SCH (09:19)
[2016-11-11] MEDS: PREGABALIN 100 MG CAP (LYRICA) PO SCH (09:19)
[2016-11-11] MEDS: DULoxetine 30 MG CAP (CYMBALTA) PO SCH (09:20)
[2016-11-11] MEDS: SENOKOT S TAB PO SCH (09:20)
[2016-11-11] MEDS: LINEZOLID 600MG TABLET (ZYVOX) PO SCH (09:20)
[2016-11-11] MEDS: METOCLOPRAMIDE 5 MG TAB PO SCH (09:20)
[2016-11-11] MEDS: HUMALOG 200 UNIT/ML SQ SCH ×2 (09:20→12:55)
[2016-11-11] MEDS: TOUJEO 300 UNIT/ML SQ SCH (09:21)
[2016-11-11] MEDS: NYSTATIN 100,000 UNITS/GM TOPICAL PWD 15 GM TOP SCH (09:22)
[2016-11-11] MEDS ORDERED: LINE60TAB PO (11:12)
[2016-11-11] MEDS ORDERED: GENT1OI TOP (11:41)
--- NOTE | 2016-11-11 12:48 | DSES ---
DATE OF ADMISSION: 10/29/2016 DATE OF DISCHARGE: 11/11/2016 PRIMARY CARE PROVIDER (PCP): Dr. Zion Pastrana ATTENDING TODAY: Dr. Rashid Morgan HISTORY: This is a 46-year-old female patient who has diabetes mellitus type 2, morbid obesity, obstructive sleep apnea, noncompliant with continuous positive airway pressure (CPAP), Charcot of the foot, Factor V Leiden deficiency with history of deep venous thrombosis (DVT), who presents to [facility] after developing a blister after her orthopedic boot was changed, and the blister ultimately burst open. Patient was seen by her visualization developer. Antibiotic was prescribed. She had been taking Keflex. She developed a temperature of 101. She subsequently developed left foot redness, swelling, pain after starting the antibiotic and therefore, was seen in the emergency room. She was admitted to the hospital for diabetic foot ulcer with cellulitis. She was placed of Ceftin. Her visualization developer, Dr. Guerra, was consulted during hospitalization. She has remained medically stable. She has had an MRI of the foot and the ankle, which was without any suggestion of osteomyelitis. Her white blood cell count has been normal. Her erythrocyte sedimentation rate has fluctuated today, it is greater than 140, although she is feeling significantly better. C-reactive protein (CRP) was 4.9 on admission; it is 3.74 today. It is up slightly from yesterday, although again, she clinically is feeling better. She has been on oral Zyvox for the last six days. We will put this out to her insurance company to make sure that there is going to be coverage of this prior to her discharge home. She also had some mild acute renal failure on admission, with her creatinine peaking at 4.16; she is down to 1.43 today. This appears to be likely her baseline. She also was supratherapeutic in her INR, resulting in her Coumadin being held. She is therapeutic at 2.35 today. She will go home on her home dose anticoagulation. DISCHARGE DIAGNOSES: 1. Acute renal failure. 2. Cellulitis of the left foot. 3. Diabetic foot ulcer. 4. Diabetes mellitus type 2. 5. Hypertension. 6. Morbid obesity. 7. Asthma. 8. Bipolar disorder. 9. Obstructive sleep apnea. 10. Factor V Leiden deficiency with recurrent deep venous thrombosis (DVT). DISCHARGE MEDICATIONS: - Zyvox 600 mg by mouth twice a day times eight additional days to complete 14 days of oral Zyvox therapy - Ventolin HFA two puffs inhaled every four hours as needed for wheezing - Xanax 1 mg every 4 hours as needed for anxiety - amitriptyline 75 mg before bed - atenolol 100 mg by mouth twice a day - duloxetine 60 mg by mouth daily, 30 mg by mouth before bed - eszopiclone 3 mg by mouth before bed - furosemide 40 mg by mouth twice a day as needed for edema - Humalog sliding scale - loperamide 2 mg every 4 hours as needed for diarrhea - Reglan 5 mg by mouth three times a day - Singulair 10 mg by mouth before bed - omeprazole 40 mg twice daily - Trileptal 600 mg before bed - Lyrica 300 mg by mouth twice a day - Seroquel 600 mg before bed - Zantac 150 mg by mouth before bed - Requip 4 mg before bed - spironolactone 25 mg before bed - Toujeo 125 units subcutaneously daily; 100 units in the evening - trazodone 100 mg by mouth before bed - Coumadin 1.5 mg by mouth daily DISCHARGE PLAN: 1. Follow up with Dr. Pastrana in one week. 2. Activity should be as tolerated. 3. Diet should be no added salt. 4. Follow up with Dr. Guerra per his office. 5. She should see Dr. Pastrana before completion of the Zyvox to determine if this needs to be extended.
--- NOTE | 2016-11-11 13:04 | IPNPDOC ---
Date/Time Seen The patient was seen on 11/11/16 at 12:51. Progress Note DATE OF ENCOUNTER: 11/11/2016 SUBJECTIVE: Patient was seen this morning at bedside. She reports that she is feeling okay. No acute overnight events. Swelling in her lower extremities have improved. She is afebrile, however ESR and CRP are trending up. Review of systems is positive for chronic diarrhea which is unchanged as she is being worked up for Crohn's disease. Also positive for chronic intermittent nausea, unchanged. Negative for vomiting, abdominal pain, fever, chills, chest pain, shortness of breath. No dysuria or hematuria. OBJECTIVE: Vital Signs Date Time Temp Pulse Resp B/P Pulse Ox O2 Delivery O2 Flow Rate FiO2 11/11/16 10:00 18 Room Air 11/11/16 06:00 96.8 76 135/66 95 I&O- Last 24 Hours up to 6 AM 11/11/16 06:00 Intake Total 1540 ml Output Total 3900 ml Balance -2360 ml GENERAL: Patient is alert and oriented, in no acute distress. Sitting up in the bed comfortably. HEENT: Normocephalic, atraumatic. Extraocular muscles are intact. Moist mucosa. NECK: Supple. Jugular venous pulsations are elevated. HEART: Normal S1-S2. Regular rate and rhythm. No murmur appreciated. LUNGS: Clear to auscultation bilaterally. ABDOMEN: Obese. Soft. Nontender. Bowel sounds are present. No rebound, guarding or rigidity. EXTREMITIES: Lower extremity edema present with some erythema on the left medial foot, erythema has improved. She has an ulceration of the plantar left foot. Extremities are warm and dry. Pulses are palpable. NEUROLOGIC: No focal deficits. Moving all extremities. LABORATORY DATA: 11/11/16 05:36 Anion Gap 6 L, Albumin 2.8L, Anion Gap 6L, C-Reactive Protein, Quantitative 3.74H, Calcium Level 8.8, Erythrocyte Sedimentation Rate > 140H, Glomerular Filtration Rate 41.9L, Magnesium Level 2.0, Phosphorus Level 4.6, Prothrombin Time International Ratio 2.35, Prothrombin Time 25.8H ASSESSMENT/PLAN: 1. Acute kidney injury superimposed on chronic kidney disease. Renal function appears to be improving. Her volume status is also improving. We'll continue with current dose of Lasix as she is diuresing well. Electrolytes are stable. Continue with current 1.5 L fluid restriction. Avoid nephrotoxic medications. 2. Urinary hesitancy/retention. She reported that she had trouble with voiding, except when she was given Lasix. A post void residual was done yesterday without any significant residual so she is adequately emptying her bladder. She remains on Flomax. She reported that she had an appointment to see urology about this, but she missed her appointment due to being hospitalized. She will need to reschedule outpatient followup. 3. Hypomagnesemia, resolved after supplementation. 4. Anemia. Hemoglobin has been stable. No intervention needed at this time. 5. Hypertension. Blood pressure is stable. She is on Lasix, but no other antihypertensives that she was taking at home. 6. Left foot cellulitis and diabetic foot ulcer. She remains on Zyvox. Status post debridement on 11/01 and 11/09. She had MRI of the right foot on 11/07 which did not show any evidence of osteomyelitis. MRI of the left foot obtained yesterday revealed diffuse swelling, no evidence for osteomyelitis. It is concerning however that her inflammatory markers continue to trend upwards, although being on antibiotics. Will defer management to primary team. GME ATTESTATION GME ATTESTATION My preceptor for this patient encounter was physically present in the building during the encounter and was fully available. As needed, all aspects of the patient interview, examination, medical decision making process, and medical care plan development were reviewed and approved by the preceptor. Preceptor is aware and concurs with the plan as stated in the body of this note and will attest to such by his/her cosignature. EMMANUEL LOPEZ DO Nov 11, 2016 13:03
== END 2016-11-11 13:19 | disposition home or self-care (01) | DRG 623 ==
LOC: M ED 20:15 → M ED INP 22:38 → M MSPAV 10-30 00:45 → M ICU 11-02 09:45 → M MSPAV 11-04 11:53
PROVIDERS: ADMIT Internal Medicine Nephrology; ATTEND Family Medicine
PROC: 0JBR0ZZ Excision of Left Foot Subcutaneous Tissue and Fascia, Open Approach (ICD-10-PCS; principal; 2016-11-01)
PROC: 02HV33Z Insertion of Infusion Device into Superior Vena Cava, Percutaneous Approach (ICD-10-PCS; 2016-11-01)
PROC: 06H033Z Insertion of Infusion Device into Inferior Vena Cava, Percutaneous Approach (ICD-10-PCS; 2016-11-05)
DX: E11.621 Type 2 diabetes mellitus with foot ulcer (principal); L03.116 Cellulitis of left lower limb; D68.2 Hereditary deficiency of other clotting factors; G40.89 Other seizures; F11.20 Opioid dependence, uncomplicated; T82.848A Pain due to vascular prosthetic devices, implants and grafts, initial encounter; N17.9 Acute kidney failure, unspecified; E11.40 Type 2 diabetes mellitus with diabetic neuropathy, unspecified; E11.610 Type 2 diabetes mellitus with diabetic neuropathic arthropathy; E11.65 Type 2 diabetes mellitus with hyperglycemia; L97.529 Non-pressure chronic ulcer of other part of left foot with unspecified severity; I10 Essential (primary) hypertension; E66.01 Morbid (severe) obesity due to excess calories; G47.33 Obstructive sleep apnea (adult) (pediatric); J45.909 Unspecified asthma, uncomplicated; F42.9 Obsessive-compulsive disorder, unspecified; F31.9 Bipolar disorder, unspecified; F40.00 Agoraphobia, unspecified; F41.9 Anxiety disorder, unspecified; G25.81 Restless legs syndrome; K21.9 Gastro-esophageal reflux disease without esophagitis; M79.7 Fibromyalgia; R33.9 Retention of urine, unspecified; L03.031 Cellulitis of right toe; Q76.0 Spina bifida occulta; D64.9 Anemia, unspecified; R00.1 Bradycardia, unspecified; J44.9 Chronic obstructive pulmonary disease, unspecified; R09.02 Hypoxemia; K58.0 Irritable bowel syndrome with diarrhea; E83.42 Hypomagnesemia; I95.2 Hypotension due to drugs; M79.602 Pain in left arm; Z79.4 Long term (current) use of insulin; Z79.51 Long term (current) use of inhaled steroids; Z79.01 Long term (current) use of anticoagulants; Z79.899 Other long term (current) drug therapy; Z91.19 Patient's noncompliance with other medical treatment and regimen; Z99.89 Dependence on other enabling machines and devices; Z86.718 Personal history of other venous thrombosis and embolism; Z90.49 Acquired absence of other specified parts of digestive tract; Z90.710 Acquired absence of both cervix and uterus; Z88.0 Allergy status to penicillin; Z91.040 Latex allergy status; Z88.2 Allergy status to sulfonamides; Z88.8 Allergy status to other drugs, medicaments and biological substances; Z91.018 Allergy to other foods; Z87.891 Personal history of nicotine dependence; B95.1 Streptococcus, group B, as the cause of diseases classified elsewhere; B95.2 Enterococcus as the cause of diseases classified elsewhere; Z86.14 Personal history of Methicillin resistant Staphylococcus aureus infection; T44.7X5A Adverse effect of beta-adrenoreceptor antagonists, initial encounter; E11.618 Type 2 diabetes mellitus with other diabetic arthropathy

== ENCOUNTER → 2016-11-19 | Outpatient (CLI) | payer OTHER ==
[~2016-11-19] MED LIST changes: +AMIT75TA PO; +ATEN100T PO; +CEPH500C PO; +CHLO125TA PO; +GENT1OI TOP; +LINE60TAB PO; +LOPE2TAB PO; +REGL5TAB2 PO; +TRAZ100T4 PO
--- NOTE | 2016-11-19 11:25 | REP ---
Duplex extremity venous ultrasound: Left lower extremity. History: Left leg swelling. Question DVT. Findings: The deep veins are anechoic and fully compressible from the groin to the popliteal fossa in the left lower extremity. Color flow imaging is homogeneous. Spectral Doppler interrogation demonstrates intact respiratory variation in flow and normal manual augmentation of flow. There is no evidence of deep vein thrombosis. Several normal-appearing lymph nodes are seen in the left inguinal region. The largest measures 3.5 by 2.7 x 0.9 cm. Impression: Negative left lower extremity duplex venous ultrasound. No evidence of deep vein thrombosis. Signed by Obdulio Ruiz MD 11/19/2016 11:16 A
== END ==
LOC: M RAD 10:48
PROVIDERS: ATTEND Nurse Practitioner Family
DX: M79.89 Other specified soft tissue disorders (principal)

== ENCOUNTER → 2016-11-26 | Outpatient (CLI) | payer OTHER ==
[~2016-11-26] MED LIST changes: +E-Z-GAS II EFFERVESCENT PACKET (SODIUM BICARB./CITRIC ACID/SIMETHICONE) As Ordered ONE; +E-Z-HD 98% w/w 340GM SUSP BTL As Ordered ONE; +E-Z-PAQUE 96% w/w SUSP 176GM BTL As Ordered ONE
--- NOTE | 2016-11-26 15:44 | REP ---
UPPER GI, AIR CONTRAST AND SMALL BOWEL FOLLOW THROUGH: The procedure was performed under the direct supervision of Dr. Ruiz. The images were reviewed with Dr. Ruiz. The range mounter film shows no organomegaly or pathological masses. The intestinal gas pattern is nonspecific. There are surgical clips noted in the right upper quadrant. There are bowel sutures noted within the pelvis. There is a cast-like filling defect within the stomach. Liquid barium and gas-producing granules were given in the erect position as well as liquid barium in the prone oblique position in order to perform a double contrast upper GI examination. Additionally, liquid barium was given at the end of the examination in order to perform a small bowel follow through. The oral and pharyngeal stages of deglutition are unremarkable. Esophageal transport demonstrates tertiary waves. There is no esophagitis, stricture, mucosal ring or hiatal hernia. Gastroesophageal reflux is not demonstrated on this examination. Within the stomach, there is a heterogeneous cast-like filling defect within the body of the stomach. The patient did state that she ate at approximately 11:15 the previous night. This may represent a mass-like bolus of undigested food material or a bezoar. However, this was not seen on the most recent CT scan dated 08/30/2016. The stomach was otherwise unremarkable. The duodenal saeed are normally outlined. The mucosal folds are smooth and regular. There is no duodenitis, pancreatitis, peptic ulcer disease or neoplasm. The visualized portion of the proximal small bowel appears normal in course and caliber. The barium column was followed through the small bowel to the level of the terminal ileum. Small bowel transit time is approximately 225 minutes. During fluoroscopy, gentle palpation shows all loops are freely movable and pliable. There are no fixed or angulated loops. The small bowel mucosal pattern is normal in course and caliber. There is no transition to suggest a partial small bowel obstruction. Spot filming of the terminal ileum shows it to be unremarkable. IMPRESSION: 1. Tertiary waves. 2. Within the stomach, there is a heterogenous cast-like filling defect. The patient did state she had a meal approximately 11:15 the previous night. This may represent a mass-like bolus of ingested retained material or is consistent with a bezoar. This however was not seen on a previous CT scan dated 08/30/2016. 3 minutes and 56 seconds of fluoroscopy time was utilized for this procedure. Reviewed by Hermilo Nolasco, DREW 11/26/2016 03:53 PEdited and Signed by Obdulio Ruiz MD 11/26/2016 04:26 P
== END ==
LOC: M RAD 09:44
PROVIDERS: ATTEND Internal Medicine Gastroenterology
DX: R19.7 Diarrhea, unspecified (principal); R12 Heartburn

== ENCOUNTER → 2016-11-29 | Outpatient (REF) | payer OTHER ==
[~2016-11-29] MED LIST changes: -E-Z-GAS II EFFERVESCENT PACKET (SODIUM BICARB./CITRIC ACID/SIMETHICONE) As Ordered ONE; -E-Z-HD 98% w/w 340GM SUSP BTL As Ordered ONE; -E-Z-PAQUE 96% w/w SUSP 176GM BTL As Ordered ONE
[2016-11-29 16:24] LABS: BASO % 0.3 % (0.0-1.0); EOS # 0.2 K/mm3 (0.0-0.50); EOS % 2.9 % (0.0-3.0); LARGE UNSTAINED CELL # 0.1 K/mm3 (0.0-0.4); LARGE UNSTAINED CELL % 2.5 % (0.0-4.0); LYMPH # 1.1 K/mm3 (1.5-4.5); LYMPH % 19.1 % (24.0-44.0); MEAN CORPUSCULAR HEMOGLOBIN 28.4 pg (27.0-33.0); MEAN CORPUSCULAR HGB CONC 34.9 g/dl (32.0-36.5); MEAN CORPUSCULAR VOLUME 81.3 fl (80.0-96.0); MONO # 0.2 K/mm3 (0.0-0.8); MONO % 3.9 % (0.0-5.0); NEUTROPHILS # 4.1 K/mm3 (1.8-7.7); NEUTROPHILS % 71.3 % (36.0-66.0); PLATELET COUNT, AUTOMATED 256 k/mm3 (150-450); RED CELL DISTRIBUTION WIDTH 15.1 % (11.5-14.5); WHITE BLOOD COUNT 5.8 K/mm3 (4.0-10.0)
[2016-11-29 16:54] LABS: CREATININE FOR GFR 1.12 MG/DL (0.55-1.02); GLOMERULAR FILTRATION RATE 55.5 (>58)
== END ==
LOC: M LABDRAWP 15:35
PROVIDERS: ATTEND Psychiatry & Neurology Neurology
DX: G43.909 Migraine, unspecified, not intractable, without status migrainosus (principal)

== ENCOUNTER → 2016-11-29 | Outpatient (REF) | payer OTHER ==
[2016-11-29 16:17] LABS: INR 2.93
== END ==
LOC: M LABDRAWP 15:34
PROVIDERS: ATTEND Nurse Practitioner Family
DX: Z51.81 Encounter for therapeutic drug level monitoring (principal); Z79.01 Long term (current) use of anticoagulants

== ENCOUNTER → 2016-12-22 | Outpatient (REF) | payer OTHER ==
[~2016-12-22] MED LIST changes: +PRAM1TAB3 PO; +SYMB16INH INH
[2016-12-22 14:20] LABS: BASO % 0.3 % (0.0-1.0); EOS # 0.2 K/mm3 (0.0-0.50); EOS % 3.1 % (0.0-3.0); LARGE UNSTAINED CELL # 0.2 K/mm3 (0.0-0.4); LARGE UNSTAINED CELL % 2.1 % (0.0-4.0); LYMPH # 1.6 K/mm3 (1.5-4.5); LYMPH % 19.2 % (24.0-44.0); MEAN CORPUSCULAR HEMOGLOBIN 28.1 pg (27.0-33.0); MEAN CORPUSCULAR HGB CONC 33.3 g/dl (32.0-36.5); MEAN CORPUSCULAR VOLUME 84.4 fl (80.0-96.0); MONO # 0.5 K/mm3 (0.0-0.8); MONO % 6.5 % (0.0-5.0); NEUTROPHILS # 5.2 K/mm3 (1.8-7.7); NEUTROPHILS % 68.7 % (36.0-66.0); PLATELET COUNT, AUTOMATED 266 k/mm3 (150-450); WHITE BLOOD COUNT 7.5 K/mm3 (4.0-10.0)
[2016-12-22 15:32] LABS: ERYTHROCYTE SEDIMENTATION RATE 85 mm/hr (0-20)
== END ==
LOC: M SFHCPLAZ 11:02
PROVIDERS: ATTEND Nurse Practitioner Family
DX: L03.116 Cellulitis of left lower limb (principal); Z51.81 Encounter for therapeutic drug level monitoring

== ENCOUNTER → 2016-12-30 | Outpatient (CLI) | payer OTHER ==
[2016-12-30 10:27] LABS: INR 1.03
== END ==
LOC: M LAB 09:30
PROVIDERS: ATTEND Nurse Practitioner Family
DX: Z51.81 Encounter for therapeutic drug level monitoring (principal)

== ENCOUNTER → 2016-12-30 | Outpatient (CLI) | payer OTHER ==
[~2016-12-30] MED LIST changes: +LIDOCAINE 2% MDV 20 ML VIAL As Ordered ONE; +LIDOCAINE W/EPINEPHRINE 1% 20ML VIAL As Ordered ONE; +SODIUM BICARBONATE 8.4% INJ 50MEQ 50 ML VIAL As Ordered ONE
--- NOTE | 2016-12-30 16:33 | REPKIM ---
CLINICAL HISTORY: Hereditary immunodeficiency, diabetes, renal insufficiency and poor venous access. Patient is scheduled for surgical/endoscopic procedures. The referring service has asked an intermediate-term central venous access. PROCEDURE PERFORMED: Right IJ Non-tunneled Ramsey Central Venous Catheter Placement INTERVENTIONALIST: Tessa Moreira MD MEDICATIONS: Local Lidocaine 2% EBL: 10 mL DEVICE USED: 7F Double Lumen Ramsey Catheter Lot#[id number] FLUORO TIME: 1.1 minutes CONSENT: The risks, benefits and alternatives to the procedure were explained to the patient and informed written consent was obtained. PROCEDURE/FINDINGS: The patient was brought to the interventional radiology suite and placed in the supine position. Time out procedure was performed. The right neck was prepped and draped in a usual sterile fashion. Real time ultrasound was used and permanent image stored. Using ultrasound guidance the right IJ vein was punctured, after infiltration of the skin and deep tissues with local anesthetic. The guidewire was advanced and positioned in the inferior vena cava. Using this access, a double lumen 7-[place] Ramsey catheter was inserted after serial dilation of its tract. Post procedure chest radiograph showed the tip of the catheter at the SVC. The catheter was secured at the skin exit site with 2-0 suture. Each port of the catheter was flushed with saline then locked with heparin (concentration 10 units/cc). A sterile dressing was then applied. The patient tolerated the procedure well with no immediate complications. This procedure was performed using ultrasound and fluoroscopy. Dr. Moreira was present. IMPRESSION: 1. Ultrasound of the neck demonstrates patent right IJ vein and compressible. 2. Successful right IJ Ramsey catheter placement as discussed above. The catheter is ready for immediate use. cc: YARON Loaiza
== END | disposition home or self-care (01) ==
LOC: M IRPRO 09:22
PROVIDERS: ATTEND Nurse Practitioner Family
DX: D84.8 Other specified immunodeficiencies (principal); E11.9 Type 2 diabetes mellitus without complications; N28.9 Disorder of kidney and ureter, unspecified
CPT/HCPCS: 36566; 76937; 77001; C1751; C1769; C1894

== ENCOUNTER → 2017-01-03 | Outpatient (CLI) | payer OTHER ==
[~2017-01-03] VITALS: Ht 177.8 cm; Wt 122.5 kg
[~2017-01-03] MED LIST changes: -LIDOCAINE 2% MDV 20 ML VIAL As Ordered ONE; -LIDOCAINE W/EPINEPHRINE 1% 20ML VIAL As Ordered ONE; +NS 1,000 ML IV SCH; +PROPOFOL 200 MG/20 ML VIAL As Ordered ONE; -SODIUM BICARBONATE 8.4% INJ 50MEQ 50 ML VIAL As Ordered ONE; +SODIUM CHLORIDE 0.9% INJ 10 ML SYR IV ONE
--- NOTE | 2017-01-03 11:16 | ROOR ---
Patient Name: Rebeca Soliz Procedure Date: 01/03/2017 11:04 AM Date of : 1970 Age: 46 Room: [facility] Gender: Female Note Status: Finalized Procedure: Upper GI endoscopy Indications: Abnormal UGI series, Early satiety Providers: Benjamin Chirinos MD Referring MD: PASCUAL AUSTIN MD Requesting Provider: Medicines: Monitored Anesthesia Care Complications: No immediate complications. Procedure: Pre-Anesthesia Assessment: - The heart rate, respiratory rate, oxygen saturations, blood pressure, adequacy of pulmonary ventilation, and response to care were monitored throughout the procedure. The Endoscope was introduced through the mouth, and advanced to the second part of duodenum. The upper GI endoscopy was accomplished without difficulty. The patient tolerated the procedure well. Findings: The Z-line was regular and was found 40 cm from the incisors. No other significant abnormalities were identified in a careful examination of the stomach. The exam of the duodenum was otherwise normal. Impression: - Z-line regular, 40 cm from the incisors. - No specimens collected. Recommendation: - Discharge patient to home. - Continue present medications. - Follow an antireflux regimen. - Return to referring physician. - The findings and recommendations were discussed with the patient's family. Benjamin Chirinos MD Benjamin Chirinos MD 01/03/2017 11:16:17 AM This report has been signed electronically. Number of Addenda: 0 Note Initiated On: 01/03/2017 11:04 AM Estimated Blood Loss: Estimated blood loss: none.
[2017-01-03 11:50] VITALS: BP 125/58
== END | disposition home or self-care (01) ==
LOC: M OPP 10:20
PROVIDERS: ATTEND Internal Medicine Gastroenterology
DX: R93.3 Abnormal findings on diagnostic imaging of other parts of digestive tract (principal); R68.81 Early satiety; I10 Essential (primary) hypertension; E10.42 Type 1 diabetes mellitus with diabetic polyneuropathy; K44.9 Diaphragmatic hernia without obstruction or gangrene; G43.909 Migraine, unspecified, not intractable, without status migrainosus; F31.9 Bipolar disorder, unspecified; F41.9 Anxiety disorder, unspecified; M79.7 Fibromyalgia; M48.00 Spinal stenosis, site unspecified; A52.16 Charcot's arthropathy (tabetic); Q05.9 Spina bifida, unspecified; M19.90 Unspecified osteoarthritis, unspecified site; M06.9 Rheumatoid arthritis, unspecified; Z89.431 Acquired absence of right foot; Z86.14 Personal history of Methicillin resistant Staphylococcus aureus infection; Z86.718 Personal history of other venous thrombosis and embolism; K52.9 Noninfective gastroenteritis and colitis, unspecified; Z87.891 Personal history of nicotine dependence; G47.30 Sleep apnea, unspecified; Z88.8 Allergy status to other drugs, medicaments and biological substances; Z91.040 Latex allergy status; Z88.5 Allergy status to narcotic agent; Z88.0 Allergy status to penicillin; Z88.2 Allergy status to sulfonamides; Z79.4 Long term (current) use of insulin; Z79.01 Long term (current) use of anticoagulants; Z79.899 Other long term (current) drug therapy

== ENCOUNTER 2017-01-13 15:04 | Inpatient (IN) | payer OTHER ==
[~2017-01-13] VITALS: Ht 177.8 cm; Wt 120.9 kg
[~2017-01-13 15:04] MED LIST changes: -DEPA250T32 PO; -DICY10CA13 PO; -GENT0.1C2 TOP; -HEPA10PFSY IV; -NORMINJ22 IV; -ROPI4TAB PO; -XIID5DRO OU
[2017-01-13 17:00] VITALS: BP 137/66
[2017-01-13] MEDS ORDERED: ACETAMINOPHEN TAB 650MG DOSE (2X325MG) PO PRN (17:15)
[2017-01-13] MEDS ORDERED: ONDANSETRON 4MG/2ML VIAL (J2405) IV PRN (17:15)
[2017-01-13] MEDS ORDERED: XIID5DRO OU (18:02)
[2017-01-13] MEDS ORDERED: DEPA250T32 PO (18:02)
[2017-01-13] MEDS ORDERED: BENA40TA2 PO (18:02)
[2017-01-13] MEDS ORDERED: LEVA1.25 INH (18:02)
[2017-01-13] MEDS ORDERED: TRAM50TA2 PO (18:02)
[2017-01-13] MEDS ORDERED: HEPA10PFSY IV (18:02)
[2017-01-13] MEDS ORDERED: NORMINJ22 IV (18:02)
[2017-01-13] MEDS ORDERED: DICY10CA13 PO (18:02)
[2017-01-13] MEDS ORDERED: CHLO125TA PO (18:02)
[2017-01-13] MEDS ORDERED: ROPI4TAB PO (18:02)
[2017-01-13 18:21] LABS: INR 2.32
[2017-01-13] MEDS ORDERED: GENT0.1C2 TOP (18:21)
[2017-01-13] MEDS ORDERED: DICYCLOMINE 10 MG CAP PO PRN (18:30)
[2017-01-13] MEDS ORDERED: traMADol 50 MG TAB PO PRN (18:30)
[2017-01-13] MEDS ORDERED: LEVALBUTEROL 1.25 MG/0.5 ML CONCENTRATE NEB INH PRN (18:30)
[2017-01-13] MEDS ORDERED: NYSTATIN 100,000 UNITS/GM TOPICAL PWD 15 GM TOP PRN (18:30)
[2017-01-13] MEDS ORDERED: ALBUTEROL 90 MCG/ACT 8GM HFA INHALER INH PRN (18:30)
[2017-01-13] MEDS ORDERED: LOPERAMIDE 2 MG CAP PO PRN (18:30)
[2017-01-13] MEDS ORDERED: FUROSEMIDE 40 MG TAB PO PRN (18:30)
[2017-01-13 18:31] LABS: MEAN CORPUSCULAR HEMOGLOBIN 27.1 pg (27.0-33.0); MEAN CORPUSCULAR HGB CONC 31.2 g/dl (32.0-36.5); MEAN CORPUSCULAR VOLUME 86.9 fl (80.0-96.0); RED CELL DISTRIBUTION WIDTH 15.1 % (11.5-14.5); WHITE BLOOD COUNT 6.4 K/mm3 (4.0-10.0)
--- NOTE | 2017-01-13 18:43 | HPE ---
DATE OF ADMISSION: 01/13/2017 PRIMARY CARE PROVIDER: Dr. Pastrana POLL CLERK: Dr. Guerra CHIEF COMPLAINT: Left foot pain, swelling and erythema. HISTORY OF PRESENT ILLNESS: A 46-year-old female who has had recurrent issues with infection involving the left foot with a diabetic foot ulcer involving the plantar surface of the left heel, which has been slow to heal. She has been seen outpatient by Dr. Guerra and Dr. Scott. She does have a right external jugular catheter in place for access and for medications and has stopped Zyvox recently. She did have a wound culture in October that was positive for Enterococcus fecalis and group B streptococcus (strep) at that time. Repeat blood cultures since then have been negative. Will go ahead and repeat a blood culture today as well as a wound culture. She informs me that she did have a fever as high as 102 recently, continued fevers over the evening, sweats and chills and rigors, some nausea but no vomiting. And she states that her blood sugars have been elevated at home as well. She denies any shortness of breath, productive sputum, cough or hemoptysis. I did have an opportunity to speak to Dr. Scott this evening briefly. Will go ahead and resend the cultures as outlined and resume antibiotics and await further diagnostic tests. She had an MRI of the foot November 10, 2016. There was evidence of advanced neuropathic arthropathy, swelling appeared to be diffuse, soft tissue enhancement. No abscess seen. No compelling evidence of osteomyelitis. PAST MEDICAL HISTORY: 1. Diabetes. 2. Hypertension. 3. Dyslipidemia. 4. History of deep vein thrombosis (DVT), on Coumadin. 5. Morbid obesity, which complicates medical care. 6. Asthma/chronic obstructive pulmonary disease (COPD). 7. Obstructive sleep apnea. Does not use continuous positive airway pressure (CPAP). 8. Diabetic neuropathy. 9. Restless leg syndrome. 10. Gastroesophageal reflux disease (GERD). 11. Possible Crohn's disease, which is in the process of being worked up. 12. Fibromyalgia. 13. Charcot foot. 14. Lumbar spondylosis and central canal stenosis. 15. Bipolar disorder. 16. History of obsessive-compulsive disorder. 17. Agoraphobia. 18. Anxiety 19. Spina bifida occulta. 20. Psoriasis. 21. Temporal lobe seizures. 22. Hiatal hernia/GERD. 23. Fatty liver disease. 24. Factor V Leiden with a history of DVT. PAST SURGICAL HISTORY: 1. Cholecystectomy in 1995. 2. Cervical discectomy and fusion in 1994. 3. Hysterectomy. 4. Lumpectomy of the right breast in 2003. 5. Appendectomy in 2008. 6. Insertion of Ghuoe-T-Xsby times two. 7. History of stool transplant. 8. Ulnar release of the right arm and hand. 9. Skin lesions removed in 2004. 10. Multiple diagnostic laparoscopies. 11. Bilateral temporomandibular joint surgery. SOCIAL HISTORY: She denies any tobacco use. She smokes electric cigarettes, stated that she quit smoking regular tobacco products 3 or 4 months ago. No recent travel. No sick contacts. FAMILY HISTORY: Noncontributory. ALLERGIES: LATEX, PENICILLIN, SULFA, TRICOR, GLUCOPHAGE, LIPITOR, ZOCOR, FRESH PINEAPPLE. HOME MEDICATIONS: - albuterol inhaler as directed - alprazolam 1 mg four times a day for anxiety - amitriptyline 75 mg nightly - atenolol 100 mg twice a day - benazepril 40 mg daily - Recently stopped Zyvox. - chlorthalidone 12.5 mg daily - duloxetine 90 mg daily - eszopiclone 3 mg at bedtime - Lasix 40 mg twice a day - Humalog 200 units per sliding scale - loperamide 2 mg every 4 hours as needed for diarrhea - Reglan 5 mg three times a day - montelukast 10 mg nightly - Nystatin powder to breasts and abdominal folds three times daily - omeprazole 40 mg twice a day - Trileptal 600 mg nightly - Lyrica 300 mg twice a day - Seroquel 600 mg nightly - ranitidine 150 mg nightly - ropinirole 4 mg nightly - spironolactone 25 mg nightly - Toujeo 125 units in the morning and 100 units at bedtime - trazodone 100 mg twice a day - Coumadin 1.5 mg daily REVIEW OF SYSTEMS: As outlined above. Constitutional: She has had some fevers, chills, rigors, nausea but no vomiting. HEENT: No headache, lightheaded, dizziness, blurry vision, double vision or tinnitus. No difficulty with speech or swallow. Pulmonary: She denies productive sputum, cough or hemoptysis. Cardiovascular: No paroxysmal nocturnal dyspnea (PND) or orthopnea. No substernal chest pain. Gastrointestinal (GI): No nausea, vomiting, diarrhea. States her bowel movements have been regular. She denies any hematochezia or melena. Genitourinary: denies dysuria or frequency. Musculoskeletal: No bone, muscle or joint pain, swelling or erythema. Skin: Positive left heel ulceration, which is longstanding and recurrent infectious process. Neurologic: No paresthesias or paralysis. She does have a history of seizure disorder, which has been stable. Lymphatics: No lumps, bumps, swelling in the neck, axilla or groin. No weight loss. Hematology: Positive for factor V Leiden and recurrent DVT. Oncology: Negative for cancer. Psychiatric: History of bipolar disorder and psychiatric history as outlined above. 10-point review of systems complete, pertinent positives are listed. PHYSICAL EXAMINATION: Temperature 96.8, pulse 76, respiratory rate 18, blood pressure 135/66, SPO2 is 95% on room air. General: The patient appears to be in no acute distress. He is alert and oriented. HEENT: Head atraumatic, normocephalic. Eyes: Pupils equal, reactive to light and accommodation. Throat: Clear. Lungs: Clear. Heart: Regular rate and rhythm. Abdomen: Soft. Positive bowel sounds. No masses, no rebound. Extremities: 1+ edema at the ankles bilaterally. No calf tenderness. The left foot does show a stage III ulceration of the plantar surface. She does have some superficial redness on the medial foot, which is outlined with a surgical pen. IMPRESSION: Ms. Soliz is a 46-year-old female patient we will admit Medical/ Surgical unit to [facility] with a known history of ongoing issues with her Charcot foot and diabetic foot ulcer on the left foot. She was sent to the hospital by Dr. Guerra today who felt that she was failing the outpatient therapy and may need to restart IV therapy. I have already spoken with Dr. Guerra as well as Dr. Scott today. Will go ahead and admit her. Will check labs and restart her Zyvox for now. PROBLEM LIST: 1. Stage III diabetic foot ulcer, which appears to be ongoing issues. 2. Diabetes. 3. Hypertension. 4. Dyslipidemia. 5. History of deep vein thrombosis, on Coumadin. 6. Morbid obesity, which makes her medical care more challenging 7. Asthma. 8. Chronic obstructive pulmonary disease. 9. Obstructive sleep apnea without use of CPAP. 10. Diabetic neuropathy. 11. Restless leg syndrome. 12. Gastroesophageal reflux disease. (GERD). 13. Possible Crohn's disease, still being worked up 14. Fibromyalgia. 15. Charcot sign of the foot. 16. Lumbar spondylosis and central canal stenosis. 17. Bipolar disorder. 18. Obsessive-compulsive disorder. 19. Anxiety. 20. Agoraphobia. 21. Psoriasis. 22. History of temporal lobe seizures. 23. Hiatal hernia. 24. Fatty liver. 25. Factor V Leiden. PLAN: The patient will be admitted to medical-surgical per Dr. Monroy's service. Will resume her Zyvox after checking blood culture and wound culture. Will continue her home medications. Will check stat blood culture, wound culture, CBC, CRP and BMP. Zyvox will be restarted. Consults for Dr. Guerra is placed. Will defer any further diagnostic testing, such as MRI, to the primary team and will see how her lab work looks. DVT prophylaxis. The patient is on Coumadin. Will continue to check PT/INR as pending for this evening as well, but will anticipate continuing her on her home dose. DISPOSITION: Anticipate she will be here greater than two midnights and Dr. Monroy and Dr. Pastrana's group has been notified that the patient has been admitted. LAURIE
[2017-01-13 19:11] LABS: CREATININE FOR GFR 1.54 MG/DL (0.55-1.02); GLOMERULAR FILTRATION RATE 38.4 (>58); POTASSIUM SERUM 4.6 MEQ/L (3.5-5.1)
[2017-01-13] MEDS: DULoxetine 30 MG CAP (CYMBALTA) PO SCH (20:01)
[2017-01-13] MEDS: METOCLOPRAMIDE 5 MG TAB PO SCH (20:01)
[2017-01-13] MEDS: MONTELUKAST 10 MG TAB PO SCH (20:01)
[2017-01-13] MEDS: GENTAMICIN SULFATE 0.1% OINT 15 GM TOP SCH (20:01)
[2017-01-13] MEDS: OMEPRAZOLE 20 MG CAP PO SCH (20:02)
[2017-01-13] MEDS: QUEtiapine FUMARATE 200 MG TAB PO SCH (20:02)
[2017-01-13] MEDS: traZODone 100 MG TAB PO SCH (20:02)
[2017-01-13] MEDS: FAMOTIDINE 20 MG TAB PO SCH (20:02)
[2017-01-13] MEDS: WARFARIN SOD 1 MG TAB PO SCH (20:02)
[2017-01-13] MEDS: DIVALPROEX 250 MG TAB PO SCH (20:03)
[2017-01-13] MEDS: PRAMIPEXOLE 1 MG TAB PO SCH (20:03)
[2017-01-13] MEDS: PREGABALIN 100 MG CAP (LYRICA) PO SCH (20:03)
[2017-01-13] MEDS: rOPINIRole 1MG TAB PO SCH (20:03)
[2017-01-13] MEDS: SPIRONOLACTONE 25 MG TAB PO SCH (20:03)
[2017-01-13] MEDS: DOCUSATE SODIUM 100 MG CAP PO SCH (20:03)
[2017-01-13] MEDS: LINEZOLID 600 MG in APPROPRIATE DILUENT 1 EA IV SCH (20:03)
[2017-01-13] MEDS: HUMALOG 200 UNIT/ML SC SCH (20:04)
[2017-01-13] MEDS: TOUJEO 300 UNIT/ML SC SCH (20:05)
[2017-01-13] MEDS: PERCOCET 5MG/325MG TAB PO PRN (20:22)
[2017-01-13 22:00] VITALS: BP 145/87
[2017-01-13] MEDS: SODIUM CHLORIDE 0.9% INJ 10 ML SYR IV SCH (23:30)
[2017-01-13] MEDS: SYMBICORT 160/4.5MCG INHALER 6GM INH SCH (23:32)
[2017-01-14 06:00] VITALS: BP 154/99
[2017-01-14] MEDS: SODIUM CHLORIDE 0.9% INJ 10 ML SYR IV SCH ×3 (06:03→22:08)
[2017-01-14] MEDS: PERCOCET 5MG/325MG TAB PO PRN ×4 (06:14→21:54)
[2017-01-14 06:20] LABS: MEAN CORPUSCULAR HEMOGLOBIN 26.5 pg (27.0-33.0); MEAN CORPUSCULAR HGB CONC 32.8 g/dl (32.0-36.5); RED CELL DISTRIBUTION WIDTH 15.2 % (11.5-14.5); WHITE BLOOD COUNT 6.9 K/mm3 (4.0-10.0)
[2017-01-14 06:28] LABS: MEAN CORPUSCULAR VOLUME 80.7 fl (80.0-96.0)
[2017-01-14 06:38] LABS: INR 2.71
[2017-01-14 06:40] LABS: ALBUMIN 2.3 GM/DL (3.2-5.2); CALCIUM LEVEL 8.1 MG/DL (8.5-10.1); CREATININE FOR GFR 1.41 MG/DL (0.55-1.02); GLOMERULAR FILTRATION RATE 42.6 (>58); PHOSPHORUS LEVEL 4.4 MG/DL (2.5-4.9)
[2017-01-14] MEDS: SYMBICORT 160/4.5MCG INHALER 6GM INH SCH ×2 (08:15→20:21)
[2017-01-14] MEDS: HUMALOG 200 UNIT/ML SC SCH ×3 (08:42→16:57)
[2017-01-14] MEDS: TOUJEO 300 UNIT/ML SC SCH ×2 (08:43→21:56)
[2017-01-14] MEDS: LINEZOLID 600 MG in APPROPRIATE DILUENT 1 EA IV SCH ×2 (08:43→20:01)
[2017-01-14] MEDS: CHLORTHALIDONE 12.5MG PER 1/2 TABLET PO SCH (08:44)
[2017-01-14] MEDS: BENAZEPRIL 20 MG TAB PO SCH (08:45)
[2017-01-14] MEDS: OMEPRAZOLE 20 MG CAP PO SCH ×2 (08:46→21:55)
[2017-01-14] MEDS: DOCUSATE SODIUM 100 MG CAP PO SCH ×2 (08:46→21:54)
[2017-01-14] MEDS: METOCLOPRAMIDE 5 MG TAB PO SCH ×3 (08:46→21:53)
[2017-01-14] MEDS: DIVALPROEX 250 MG TAB PO SCH ×2 (08:46→21:54)
[2017-01-14] MEDS: PREGABALIN 100 MG CAP (LYRICA) PO SCH ×2 (08:46→21:53)
[2017-01-14] MEDS: DULoxetine 30 MG CAP (CYMBALTA) PO SCH ×2 (08:47→21:53)
[2017-01-14] MEDS: ENOXAPARIN 40 MG/0.4 ML SYRINGE (J1650) SC SCH (08:47)
[2017-01-14] MEDS: GENTAMICIN SULFATE 0.1% OINT 15 GM TOP SCH ×3 (08:48→21:53)
[2017-01-14] MEDS: SODIUM CHLORIDE 0.9% INJ 10 ML SYR IV PRN ×2 (11:14→20:01)
--- NOTE | 2017-01-14 11:24 | IPNPDOC ---
Subjective Date Seen The patient was seen on 01/14/17. Subjective Chief Complaint/HPI Pt c/o chills, not feeling well, nausea, (vomited last yesterday afternoon). She is feeling minimally better today than yesterday. General: Reports: Fatigue Constitutional: Reports: Chills, Denies: Fever ENT: Reports: Head Aches Pulmonary: Denies: Cough, Dyspnea Cardiovascular: Denies: Chest Pain, Palpitations Gastrointestinal: Reports: Nausea, Vomiting, Denies: Diarrhea Musculoskeletal: Reports: Foot Pain Neurological: Reports: Weakness Psych: Reports: Mood Normal Objective Physical Examination General Exam: Positive: Alert, No Acute Distress ENT Exam: Positive: Mucous membr. moist/pink Chest Exam: Positive: Clear to auscultation, Normal air movement Heart Exam: Positive: Normal S1, Normal S2, Rate Normal Abdomen Exam: Positive: Normal bowel sounds, Soft, Negative: Tenderness Extremity Exam: Positive: Edema (trace BLE, foot wounds wrapped) Assessment /Plan Problems (1) Chronic foot ulcer Status: Chronic Response to Treatment: Worse, Uncontrolled Discussed With: Gas Welder Apprentice Problem Specific Plan: Monitor Clinically, Repeat Labs Problem Text: Primarily managed by Dr Guerra, consult has been placed, he is aware of pts status. (2) Cellulitis, toe Status: Acute Response to Treatment: Stable Discussed With: Nurse, Patient Problem Specific Plan: Monitor Clinically, Repeat Labs Problem Text: 01/14 - Zyvox D 2, Has responded to this in the past. This was recently d/c per Dr Scott, who has followed her as an outpt in the past as well. 11/02, MRI without compelling evidence of OM. Cultures pending. (3) Uncontrolled diabetes mellitus Onset Date: 11/12/2014 Status: Chronic Response to Treatment: Stable, Improving Problem Specific Plan: Monitor Clinically Problem Text: Has been started back on home dose U 500, she tends to have been control when in the hospital. Plan/VTE VTE Prophylaxis Ordered?: Yes VS, I&O, 24H, Fishbone Vital Signs/I&O Vital Signs Date Time Temp Pulse Resp B/P Pulse Ox O2 Delivery O2 Flow Rate FiO2 01/14/17 11:14 16 01/14/17 08:45 133/72 01/14/17 06:00 96.8 58 90 Room Air I&O- Last 24 Hours up to 6 AM 01/14/17 05:59 Intake Total 1020 ml Output Total 750 ml Balance 270 ml Laboratory Data 24H LABS Laboratory Tests 2 01/13/17 17:48: Prothromb Time International Ratio 2.32, Prothrombin Time 25.5H 01/13/17 17:49: Anion Gap 7L, C-Reactive Protein, Quantitative 11.10H, Blood Urea Nitrogen 22H, Creatinine 1.54H, Sodium Level 123L, Potassium Level 4.6, Chloride Level 88L, Carbon Dioxide Level 28, Calcium Level 8.0L, Glomerular Filtration Rate 38.4L 01/14/17 06:09: Prothromb Time International Ratio 2.71, Prothrombin Time 28.8H, Anion Gap 8, Blood Urea Nitrogen 22H, Creatinine 1.41H, Sodium Level 133#L, Potassium Level 4.0, Chloride Level 94L, Carbon Dioxide Level 31, Calcium Level 8.1L, Glomerular Filtration Rate 42.6L, Albumin 2.3L, Phosphorus Level 4.4 CBC/BMP Laboratory Tests 01/13/17 17:49 Calcium Level 8.0 L, Red Blood Count 3.57 L, Mean Corpuscular Volume 86.9, Mean Corpuscular Hemoglobin 27.1, Mean Corpuscular Hemoglobin Concent 31.2 L, Red Cell Distribution Width 15.1 H 01/14/17 06:09 Red Blood Count 3.64 L, Mean Corpuscular Volume 80.7 #, Mean Corpuscular Hemoglobin 26.5 L, Mean Corpuscular Hemoglobin Concent 32.8, Red Cell Distribution Width 15.2 H, Anion Gap 8 Microbiology Microbiology 01/13/17 Blood Culture, Received Pending 01/13/17 Wound Culture, Received Pending LATASHA STRANGE PA-C Jan 14, 2017 11:24
[2017-01-14 14:00] VITALS: BP 112/67
[2017-01-14] MEDS: WARFARIN SOD 1 MG TAB PO SCH (16:56)
[2017-01-14] MEDS: rOPINIRole 1MG TAB PO SCH (21:53)
[2017-01-14] MEDS: PRAMIPEXOLE 1 MG TAB PO SCH (21:53)
[2017-01-14] MEDS: MONTELUKAST 10 MG TAB PO SCH (21:54)
[2017-01-14] MEDS: QUEtiapine FUMARATE 200 MG TAB PO SCH (21:55)
[2017-01-14] MEDS: traZODone 100 MG TAB PO SCH (21:55)
[2017-01-14] MEDS: FAMOTIDINE 20 MG TAB PO SCH (21:55)
[2017-01-14] MEDS: SPIRONOLACTONE 25 MG TAB PO SCH (21:55)
[2017-01-14 22:00] VITALS: BP 131/67
[2017-01-15] MEDS: SODIUM CHLORIDE 0.9% INJ 10 ML SYR IV SCH ×3 (05:39→22:53)
[2017-01-15] MEDS: SODIUM CHLORIDE 0.9% INJ 10 ML SYR IV PRN (05:59)
[2017-01-15 06:00] VITALS: BP 122/63
[2017-01-15] MEDS: PERCOCET 5MG/325MG TAB PO PRN ×4 (06:09→21:38)
[2017-01-15 06:19] LABS: INR 1.82
[2017-01-15 06:21] LABS: MEAN CORPUSCULAR HEMOGLOBIN 26.7 pg (27.0-33.0); MEAN CORPUSCULAR HGB CONC 33.2 g/dl (32.0-36.5); MEAN CORPUSCULAR VOLUME 80.4 fl (80.0-96.0); WHITE BLOOD COUNT 4.8 K/mm3 (4.0-10.0)
[2017-01-15 06:40] LABS: ALBUMIN 2.2 GM/DL (3.2-5.2); CALCIUM LEVEL 7.9 MG/DL (8.5-10.1); CREATININE FOR GFR 1.33 MG/DL (0.55-1.02); GLOMERULAR FILTRATION RATE 45.5 (>58); PHOSPHORUS LEVEL 5.1 MG/DL (2.5-4.9); POTASSIUM SERUM 3.8 MEQ/L (3.5-5.1)
[2017-01-15] MEDS: SYMBICORT 160/4.5MCG INHALER 6GM INH SCH ×2 (07:54→20:29)
[2017-01-15] MEDS: ENOXAPARIN 40 MG/0.4 ML SYRINGE (J1650) SC SCH (08:40)
[2017-01-15] MEDS: BENAZEPRIL 20 MG TAB PO SCH (08:41)
[2017-01-15] MEDS: DULoxetine 30 MG CAP (CYMBALTA) PO SCH ×2 (08:41→21:37)
[2017-01-15] MEDS: METOCLOPRAMIDE 5 MG TAB PO SCH ×3 (08:41→21:36)
[2017-01-15] MEDS: PREGABALIN 100 MG CAP (LYRICA) PO SCH ×2 (08:41→21:37)
[2017-01-15] MEDS: DIVALPROEX 250 MG TAB PO SCH ×2 (08:42→21:37)
[2017-01-15] MEDS: DOCUSATE SODIUM 100 MG CAP PO SCH ×2 (08:42→21:36)
[2017-01-15] MEDS: OMEPRAZOLE 20 MG CAP PO SCH ×2 (08:42→21:36)
[2017-01-15] MEDS: CHLORTHALIDONE 12.5MG PER 1/2 TABLET PO SCH (08:42)
[2017-01-15] MEDS: LINEZOLID 600 MG in APPROPRIATE DILUENT 1 EA IV SCH ×2 (08:42→20:32)
[2017-01-15] MEDS: HUMALOG 200 UNIT/ML SC SCH ×3 (08:43→18:05)
[2017-01-15] MEDS: TOUJEO 300 UNIT/ML SC SCH ×2 (08:45→21:39)
[2017-01-15] MEDS: GENTAMICIN SULFATE 0.1% OINT 15 GM TOP SCH ×3 (08:45→21:43)
--- NOTE | 2017-01-15 12:49 | IPNPDOC ---
Subjective Date Seen The patient was seen on 01/15/17. Subjective Chief Complaint/HPI The patient is a 46-year-old female admitted with a reason for visit of Cellulitis/Diabetes. Events since last encounter Patient states she is very tired. Her foot is still painful but she thinks that the redness has receded somewhat. General: Reports: Fatigue, Denies: Chills, Night Sweats Constitutional: Denies: Fever ENT: Denies: Head Aches Skin: Denies: Rash Pulmonary: Denies: Cough, Dyspnea Cardiovascular: Denies: Chest Pain, Palpitations Gastrointestinal: Denies: Abdominal Pain, Nausea, Vomiting Genitourinary: Denies: Dysuria Objective Physical Examination General Exam: Positive: Alert, No Acute Distress ENT Exam: Positive: Mucous membr. moist/pink Chest Exam: Positive: Clear to auscultation, Normal air movement Heart Exam: Positive: Normal S1, Normal S2, Rate Normal Abdomen Exam: Positive: Normal bowel sounds, Soft, Negative: Tenderness Extremity Exam: Positive: Edema (trace BLE, large open area on bottom of left foot with yellow-white discharge; erythema and swelling on medial side of foot slightly receded from line drawn on 01/13/17) Assessment /Plan Problems (1) Chronic foot ulcer Status: Chronic Response to Treatment: Worse, Uncontrolled Discussed With: Salesperson Recreational Vehicles Problem Specific Plan: Monitor Clinically, Repeat Labs Problem Text: Primarily managed by Dr. Guerra, consult has been placed, he is aware of pts status per prior notes, but patient states he has not seen her while she has been hospitalized. (2) Cellulitis, toe Status: Acute Response to Treatment: Stable Discussed With: Nurse, Patient Problem Specific Plan: Monitor Clinically, Repeat Labs Problem Text: 01/15 - Wound cultures grew MSSA and Strep Agalactiae Group B; strep is pansensitive and MSSA is sensitive to oxacillin and Bactrim (patient is allergic to both) as well as vanco and zyvox; today is day 3 of Zyvox. Erythema and swelling is somewhat improving. 01/14 - Zyvox D 2, Has responded to this in the past. This was recently d/c per Dr Scott, who has followed her as an outpt in the past as well. MRI in 11/02 without compelling evidence of OM. Cultures pending. (3) Bacteremia due to Gram-negative bacteria Status: Acute Problem Text: A single blood culture was drawn on 01/13/17 that today became positive for gram negative rods. I d/w micro and they are uncertain if this was drawn from her IJ or peripherally. I have asked for blood cultures to be redrawn stat from both her IJ and peripherally. She is at risk for colonization of her IJ. She does not appear to be acutely ill at present but patient states that she becomes ill very quickly and often does not have a fever or elevated WBCs when this occurs. She has been on antibiotics frequently in the past year. I will start meropenem to cover for gram negative rods and pseudomonas until blood cultures are resulted. - Plan to c/s Dr. Scott on Tuesday. (4) Uncontrolled diabetes mellitus Onset Date: 11/12/2014 Status: Chronic Response to Treatment: Stable, Improving Problem Specific Plan: Monitor Clinically Problem Text: Blood sugars are fairly well controlled on home dose U 500. (5) History of DVT (deep vein thrombosis) Status: Chronic Problem Text: INR subtherapeutic on warfarin today - will recheck tomorrow and if persistently low, will adjust warfarin dosing. - Patient was also placed on ppx lovenox upon admission; this would be unnecessary if she were therapeutic, but as she is currently subtherapeutic I will continue this for now and d/c once she is therapeutic. Plan/VTE VTE Prophylaxis Ordered?: Yes VS, I&O, 24H, Fishbone Vital Signs/I&O Vital Signs Date Time Temp Pulse Resp B/P Pulse Ox O2 Delivery O2 Flow Rate FiO2 01/15/17 08:41 122/63 01/15/17 06:59 16 01/15/17 06:00 97.2 64 94 Room Air I&O- Last 24 Hours up to 6 AM 01/15/17 06:00 Intake Total 1440 ml Output Total 2200 ml Balance -760 ml Laboratory Data 24H LABS Laboratory Tests 2 01/14/17 16:36: Bedside Glucose (Misc Panel) 149H 01/14/17 20:11: Bedside Glucose (Misc Panel) 183H 01/14/17 23:25: Bedside Glucose (Misc Panel) 259H 01/15/17 01:02: Bedside Glucose (Misc Panel) 178H 01/15/17 03:07: Bedside Glucose (Misc Panel) 123H 01/15/17 05:15: Bedside Glucose (Misc Panel) 133H 01/15/17 05:58: Albumin 2.2L, Blood Urea Nitrogen 29H, Creatinine 1.33H, Sodium Level 139, Potassium Level 3.8, Chloride Level 100, Carbon Dioxide Level 29, Anion Gap 10, Calcium Level 7.9L, Glomerular Filtration Rate 45.5L, Phosphorus Level 5.1H, Prothromb Time International Ratio 1.82, Prothrombin Time 21.2H CBC/BMP Laboratory Tests 01/15/17 05:58 Anion Gap 10, Red Blood Count 3.73 L, Mean Corpuscular Volume 80.4, Mean Corpuscular Hemoglobin 26.7 L, Mean Corpuscular Hemoglobin Concent 33.2, Red Cell Distribution Width 15.0 H Microbiology Microbiology 01/13/17 Blood Culture - Preliminary, Resulted 01/13/17 Wound Culture - Final, Complete Staphylococcus Aureus Strep Agalactiae Group B RIAZ LOPEZ MD Jan 15, 2017 12:49
[2017-01-15 14:00] VITALS: BP 169/72
[2017-01-15] MEDS: CIPROFLOXACIN 400 MG in APPROPRIATE DILUENT 1 EA IV SCH (16:19)
[2017-01-15] MEDS: WARFARIN SOD 1 MG TAB PO SCH (16:19)
[2017-01-15] MEDS: traZODone 100 MG TAB PO SCH (21:36)
[2017-01-15] MEDS: MONTELUKAST 10 MG TAB PO SCH (21:36)
[2017-01-15] MEDS: PRAMIPEXOLE 1 MG TAB PO SCH (21:37)
[2017-01-15] MEDS: FAMOTIDINE 20 MG TAB PO SCH (21:37)
[2017-01-15] MEDS: QUEtiapine FUMARATE 200 MG TAB PO SCH (21:37)
[2017-01-15] MEDS: SPIRONOLACTONE 25 MG TAB PO SCH (21:37)
[2017-01-15] MEDS: rOPINIRole 1MG TAB PO SCH (21:38)
[2017-01-15 22:00] VITALS: BP 141/67
[2017-01-16] MEDS: CIPROFLOXACIN 400 MG in APPROPRIATE DILUENT 1 EA IV SCH ×2 (02:11→15:19)
[2017-01-16] MEDS: SODIUM CHLORIDE 0.9% INJ 10 ML SYR IV SCH ×3 (03:18→22:26)
[2017-01-16] MEDS: PERCOCET 5MG/325MG TAB PO PRN ×4 (05:34→21:29)
[2017-01-16] MEDS: SODIUM CHLORIDE 0.9% INJ 10 ML SYR IV PRN ×2 (05:35→11:42)
[2017-01-16 05:54] LABS: MEAN CORPUSCULAR HEMOGLOBIN 26.5 pg (27.0-33.0); MEAN CORPUSCULAR HGB CONC 30.8 g/dl (32.0-36.5); WHITE BLOOD COUNT 3.2 K/mm3 (4.0-10.0)
[2017-01-16 06:00] VITALS: BP 142/76
[2017-01-16 06:00] LABS: INR 1.36
[2017-01-16 06:10] LABS: MEAN CORPUSCULAR VOLUME 85.9 fl (80.0-96.0)
[2017-01-16 06:20] LABS: ALBUMIN 2.1 GM/DL (3.2-5.2); CREATININE FOR GFR 1.34 MG/DL (0.55-1.02); GLOMERULAR FILTRATION RATE 45.1 (>58); PHOSPHORUS LEVEL 3.8 MG/DL (2.5-4.9); POTASSIUM SERUM 4.1 MEQ/L (3.5-5.1)
[2017-01-16] MEDS: SYMBICORT 160/4.5MCG INHALER 6GM INH SCH ×2 (08:00→19:55)
[2017-01-16] MEDS: LINEZOLID 600 MG in APPROPRIATE DILUENT 1 EA IV SCH ×2 (09:24→20:18)
[2017-01-16] MEDS: ENOXAPARIN 40 MG/0.4 ML SYRINGE (J1650) SC SCH (09:25)
[2017-01-16] MEDS: PREGABALIN 100 MG CAP (LYRICA) PO SCH ×2 (09:25→21:31)
[2017-01-16] MEDS: CHLORTHALIDONE 12.5MG PER 1/2 TABLET PO SCH (09:25)
[2017-01-16] MEDS: METOCLOPRAMIDE 5 MG TAB PO SCH ×3 (09:26→21:30)
[2017-01-16] MEDS: DIVALPROEX 250 MG TAB PO SCH ×2 (09:26→21:30)
[2017-01-16] MEDS: BENAZEPRIL 20 MG TAB PO SCH (09:26)
[2017-01-16] MEDS: DULoxetine 30 MG CAP (CYMBALTA) PO SCH ×2 (09:26→21:30)
[2017-01-16] MEDS: DOCUSATE SODIUM 100 MG CAP PO SCH ×2 (09:26→21:29)
[2017-01-16] MEDS: OMEPRAZOLE 20 MG CAP PO SCH ×2 (09:26→21:30)
[2017-01-16] MEDS: TOUJEO 300 UNIT/ML SC SCH ×2 (09:28→21:29)
[2017-01-16] MEDS: HUMALOG 200 UNIT/ML SC SCH ×3 (09:33→17:02)
[2017-01-16] MEDS: GENTAMICIN SULFATE 0.1% OINT 15 GM TOP SCH ×2 (09:40→15:20)
--- NOTE | 2017-01-16 11:32 | IPNPDOC ---
Subjective Date Seen The patient was seen on 01/16/17. Subjective Chief Complaint/HPI The patient is a 46-year-old female admitted with a reason for visit of Cellulitis/Diabetes. Constitutional: Denies: Chills, Fever ENT: Denies: Head Aches Pulmonary: Denies: Cough, Dyspnea Cardiovascular: Denies: Chest Pain, Palpitations Gastrointestinal: Denies: Abdominal Pain, Nausea, Vomiting Genitourinary: Denies: Dysuria Neurological: Reports: Other Symptoms (hand tremor), Denies: Change in speech, Confusion, Numbness, Weakness Objective Physical Examination General Exam: Positive: Alert, No Acute Distress ENT Exam: Positive: Mucous membr. moist/pink Chest Exam: Positive: Clear to auscultation, Normal air movement Heart Exam: Positive: Normal S1, Normal S2, Rate Normal Abdomen Exam: Positive: Normal bowel sounds, Soft, Negative: Tenderness Extremity Exam: Positive: Edema (trace BLE, large open area on bottom of left foot with increased yellow-white discharge; erythema and swelling on medial side of foot a bit worse today and foot is more tender to palpation today) Neuro Exam: Positive: Cranial Nerves 3-12 NL, Normal Speech, Normal Tone, Other (patient appears tremulous with mild bilateral intention tremor in hands) , Strength at 5/5 X4 ext Assessment /Plan Problems (1) Chronic foot ulcer Status: Chronic Response to Treatment: Worse, Uncontrolled Discussed With: Electronics Instructor Problem Specific Plan: Monitor Clinically, Repeat Labs Problem Text: Ulcer and surrounding cellulitis appear worse today - I d/w Dr. Guerra who will see her today. (2) Cellulitis, toe Status: Acute Response to Treatment: Stable Discussed With: Nurse, Patient Problem Specific Plan: Monitor Clinically, Repeat Labs Problem Text: 01/16 - Zyvox D4; erythema and swelling a bit worse today with some increase in tenderness; WBCs low today at 3.2. 01/15 - Wound cultures grew MSSA and Strep Agalactiae Group B; strep is pansensitive and MSSA is sensitive to oxacillin and Bactrim (patient is allergic to both) as well as vanco and zyvox; today is day 3 of Zyvox. Erythema and swelling is somewhat improving. 01/14 - Zyvox D 2, Has responded to this in the past. This was recently d/c per Dr Scott, who has followed her as an outpt in the past as well. MRI in 11/02 without compelling evidence of OM. Cultures pending. (3) Bacteremia due to Gram-negative bacteria Status: Acute Problem Text: 01/16 - Ciprofloxacin started yesterday; I think that it is likely that the positive blood culture was drawn from her line and likely represents line colonization rather than bacteremia; repeat blood cultures are pending. I would have preferred to have started cefepime for bacteremia for better coverage of pseudomonas, but I am concerned about risk of allergic reaction as she has had hives with keflex and anaphylaxis with PCN; she does appear to have received cefotetan in 10/2016 without a reaction, and if she were to become more ill we could consider trial of cefepime with careful observation for an allergic reaction. WBCs are a bit low today but she has remained afebrile and does not appear toxic on exam today. Will continue ciprofloxacin and will monitor. 01/15 - A single blood culture was drawn on 01/13/17 that today became positive for gram negative rods. I d/w micro and they are uncertain if this was drawn from her EJ or peripherally. I have asked for blood cultures to be redrawn stat from both her EJ and peripherally. She is at risk for colonization of her EJ. She does not appear to be acutely ill at present but patient states that she becomes ill very quickly and often does not have a fever or elevated WBCs when this occurs. She has been on antibiotics frequently in the past year. - Plan to c/s Dr. Scott on Tuesday. (4) Uncontrolled diabetes mellitus Onset Date: 11/12/2014 Status: Chronic Response to Treatment: Stable, Improving Problem Specific Plan: Monitor Clinically Problem Text: Blood sugars are fairly well controlled on home Toujeo and Humalog with one high BS yesterday - continue to monitor. (5) History of DVT (deep vein thrombosis) Status: Chronic Problem Text: INR therapeutic on warfarin today; d/c ppx lovenox. (6) Tremor Status: Acute Problem Text: Patient has new onset mild intention tremor of hands; she denies feeling cold. She states this started yesterday prior to receiving Ciprofloxacin. She is extremely anxious about the possibility of her line being infected and possibly needing to be pulled, as she is hoping to have surgery on her hand in a few weeks. I suspect this tremor is related to stress/ anxiety. Neurologic exam is otherwise normal. Will monitor. Plan/VTE VTE Prophylaxis Ordered?: Yes VS, I&O, 24H, Fishbone Vital Signs/I&O Vital Signs Date Time Temp Pulse Resp B/P Pulse Ox O2 Delivery O2 Flow Rate FiO2 01/16/17 09:40 20 01/16/17 09:26 142/76 01/16/17 06:00 96.6 75 98 Room Air I&O- Last 24 Hours up to 6 AM 01/16/17 06:00 Intake Total 3400 ml Output Total 1600 ml Balance 1800 ml Laboratory Data 24H LABS Laboratory Tests 2 01/15/17 11:32: Bedside Glucose (Misc Panel) 467H 01/15/17 17:26: Bedside Glucose (Misc Panel) 264H 01/15/17 20:15: Bedside Glucose (Misc Panel) 194H 01/16/17 05:30: Albumin 2.1L, Blood Urea Nitrogen 32H, Creatinine 1.34H, Sodium Level 138, Potassium Level 4.1, Chloride Level 102, Carbon Dioxide Level 30, Anion Gap 6L, Calcium Level 8.0L, Glomerular Filtration Rate 45.1L, Phosphorus Level 3.8#, Prothromb Time International Ratio 1.36, Prothrombin Time 16.9H CBC/BMP Laboratory Tests 01/16/17 05:30 Anion Gap 6 L, Red Blood Count 3.56 L, Mean Corpuscular Volume 85.9 #, Mean Corpuscular Hemoglobin 26.5 L, Mean Corpuscular Hemoglobin Concent 30.8 L, Red Cell Distribution Width 15.0 H Microbiology Microbiology 01/15/17 Blood Culture, Received Pending 01/15/17 Blood Culture, Received Pending 01/13/17 Blood Culture - Preliminary, Resulted 01/13/17 Wound Culture - Final, Complete Staphylococcus Aureus Strep Agalactiae Group B RIAZ LOPEZ MD Jan 16, 2017 11:31
[2017-01-16] MEDS: ALPRAZolam 0.5 MG TAB PO PRN ×3 (11:43→21:29)
[2017-01-16 14:00] VITALS: BP 135/63
[2017-01-16] MEDS ORDERED: WARFARIN SOD 2 MG TAB PO ONE (17:00)
--- NOTE | 2017-01-16 18:01 | CR ---
DATE OF CONSULTATION: 01/16/2017 CHIEF COMPLAINT: A 46-year-old female seen for evaluation of worsening infection on her left foot. She was running 600 blood sugars and had worsening redness and pain of her left foot. She is seen today for evaluation. PAST MEDICAL HISTORY: 1. Diabetes. 2. Hypertension. 3. Dyslipidemia. 4. History of deep venous thrombosis (DVT). 5. Morbid obesity. 6. Asthma. 7. Chronic obstructive sleep apnea. 8. Charcot foot deformity bilateral. 9. Diabetic neuropathy. 10. Restless leg syndrome. 11. Previous digital amputations. 12. Gastroesophageal reflux disease. 13. Bipolar disease. 14. Anxiety. 15. Spina bifida occulta. 16. Fatty liver disease. 17. Factor V Leiden. PAST SURGICAL HISTORY: 1. Cholecystectomy. 2. Cervical discectomy and fusion. 3. Hysterectomy. 4. Lumpectomy right breast. 5. Appendectomy. 6. Insertion of Port-A-Cath. 7. Ulnar release right arm. HOME MEDICATIONS: - albuterol inhaler - alprazolam 1 mg four times a day for anxiety - amitriptyline 75 mg nightly - atenolol 100 mg twice a day - benazepril 40 mg daily - chlorthalidone 12.5 mg daily - duloxetine 90 mg daily - Lasix 40 mg twice a day - Humalog 200 units per sliding scale - loperamide 2 mg every four hours as needed for diarrhea - Reglan 5 mg three times a day - Singulair 10 mg nightly - Nystatin powder - omeprazole 40 mg twice a day - Trileptal 600 mg nightly - Lyrica 300 mg twice a day - Seroquel 600 mg nightly - ranitidine 150 mg nightly - spironolactone 25 mg nightly - trazodone 100 mg twice a day - Coumadin 1.5 mg daily ALLERGIES: CLINDAMYCIN, LATEX, METFORMIN, MORPHINE, PENICILLIN, SULFA. EXAMINATION: Evaluation of the patient's foot reveals an ulceration measuring 4.6 cm x 3.7 cm. It is 2 mm in depth; however, there is a central area of depression measuring 10 mm x 3 mm that is 3 mm in depth. It does not extend to bone. LABORATORY DATA: Laboratory studies reviewed. White count 3.2; on admission 6.4. C-reactive protein 11.0. MICROBIOLOGY: Wound culture reveals Staphylococcus aureus and streptococcus group B sensitive to vancomycin and Bactrim. ASSESSMENT: Infection with stage IV ulceration left foot. PLAN: X-rays ordered three views left foot. Utilizing sterile curette and after appropriate time-out, the ulcer was debrided to the level of the subcutaneous tissues. The central depression was explored. Does not extend to bone. A sterile dressing was applied. Orders to continue with present wound care. Orders for x-rays three views left foot. Wound orders will include applying Vashe. After 10 minutes apply Bactroban twice a day. C-reactive protein ordered daily. Her questions were answered. Thank you for this consultation.
--- NOTE | 2017-01-16 19:03 | REP ---
Clinical: Diabetic ulcer. Technique: AP, lateral, bilateral oblique views of the left foot. Comparison: 05/27/2016. Findings: Extensive lysis and destructive changes to the midfoot with heterotopic ossification and underlying osteopenia similar to prior examination and consistent with Charcot's joint and history of diabetes. Diffuse soft tissue swelling noted. Impression: Extensive destructive changes and heterotopic ossification involving the midfoot consistent with history of diabetes and Charcot's joint. Underlying osteomyelitis cannot be excluded although findings appear essentially relatively similar to prior examination. Signed by Clint Sullivan MD 01/16/2017 06:55 P
[2017-01-16] MEDS: MUPIROCIN 2% OINT 22 GM TUBE TOP SCH (20:23)
[2017-01-16] MEDS: PRAMIPEXOLE 1 MG TAB PO SCH (21:30)
[2017-01-16] MEDS: SPIRONOLACTONE 25 MG TAB PO SCH (21:30)
[2017-01-16] MEDS: FAMOTIDINE 20 MG TAB PO SCH (21:30)
[2017-01-16] MEDS: traZODone 100 MG TAB PO SCH (21:30)
[2017-01-16] MEDS: MONTELUKAST 10 MG TAB PO SCH (21:30)
[2017-01-16] MEDS: rOPINIRole 1MG TAB PO SCH (21:31)
[2017-01-16] MEDS: QUEtiapine FUMARATE 200 MG TAB PO SCH (21:31)
[2017-01-16 22:00] VITALS: BP 146/78
[2017-01-17] MEDS: CIPROFLOXACIN 400 MG in APPROPRIATE DILUENT 1 EA IV SCH ×2 (02:13→15:39)
[2017-01-17] MEDS: SODIUM CHLORIDE 0.9% INJ 10 ML SYR IV PRN ×2 (02:13→05:32)
[2017-01-17] MEDS: SODIUM CHLORIDE 0.9% INJ 10 ML SYR IV SCH ×3 (03:17→21:55)
[2017-01-17] MEDS: PERCOCET 5MG/325MG TAB PO PRN ×5 (05:32→20:53)
[2017-01-17] MEDS: ALPRAZolam 0.5 MG TAB PO PRN ×3 (05:32→22:44)
[2017-01-17 05:56] LABS: INR 1.27; MEAN CORPUSCULAR HEMOGLOBIN 26.7 pg (27.0-33.0); MEAN CORPUSCULAR HGB CONC 31.8 g/dl (32.0-36.5); MEAN CORPUSCULAR VOLUME 84.1 fl (80.0-96.0); RED CELL DISTRIBUTION WIDTH 15.2 % (11.5-14.5); WHITE BLOOD COUNT 3.8 K/mm3 (4.0-10.0)
[2017-01-17 06:00] VITALS: BP 114/79
[2017-01-17 06:16] LABS: ALBUMIN 2.3 GM/DL (3.2-5.2); ANION GAP 3 MEQ/L (8-16); BLOOD UREA NITROGEN 27 MG/DL (7-18); CALCIUM LEVEL 8.8 MG/DL (8.5-10.1); CARBON DIOXIDE LEVEL 34 MEQ/L (21-32); CHLORIDE LEVEL 105 MEQ/L (98-107); GLOMERULAR FILTRATION RATE > 60.0 (>58); GLUCOSE, FASTING 109 MG/DL (70-105); PHOSPHORUS LEVEL 4.2 MG/DL (2.5-4.9); POTASSIUM SERUM 4.3 MEQ/L (3.5-5.1); SODIUM LEVEL 142 MEQ/L (136-145)
[2017-01-17] MEDS: SYMBICORT 160/4.5MCG INHALER 6GM INH SCH ×2 (07:29→21:13)
[2017-01-17] MEDS: LINEZOLID 600 MG in APPROPRIATE DILUENT 1 EA IV SCH (08:09)
[2017-01-17] MEDS: OMEPRAZOLE 20 MG CAP PO SCH ×2 (08:11→20:53)
[2017-01-17] MEDS: PREGABALIN 100 MG CAP (LYRICA) PO SCH ×2 (08:11→20:53)
[2017-01-17] MEDS: CHLORTHALIDONE 12.5MG PER 1/2 TABLET PO SCH (08:11)
[2017-01-17] MEDS: METOCLOPRAMIDE 5 MG TAB PO SCH ×3 (08:11→20:53)
[2017-01-17] MEDS: BENAZEPRIL 20 MG TAB PO SCH (08:11)
[2017-01-17] MEDS: DIVALPROEX 250 MG TAB PO SCH ×2 (08:11→20:54)
[2017-01-17] MEDS: DOCUSATE SODIUM 100 MG CAP PO SCH ×2 (08:11→20:53)
[2017-01-17] MEDS: HUMALOG 200 UNIT/ML SC SCH ×3 (08:12→18:41)
[2017-01-17] MEDS: DULoxetine 30 MG CAP (CYMBALTA) PO SCH ×2 (08:12→20:53)
[2017-01-17] MEDS: MUPIROCIN 2% OINT 22 GM TUBE TOP SCH ×2 (08:13→20:54)
[2017-01-17] MEDS: TOUJEO 300 UNIT/ML SC SCH ×2 (08:13→22:39)
--- NOTE | 2017-01-17 10:36 | IPNPDOC ---
Subjective Date Seen The patient was seen on 01/17/17. Subjective Chief Complaint/HPI Pt without new concerns today. She continues to have intermittent nausea. Dr Guerra saw her last night, debrided her wounds. Constitutional: Denies: Chills, Fever Pulmonary: Denies: Cough, Dyspnea Cardiovascular: Denies: Chest Pain, Palpitations Gastrointestinal: Reports: Nausea, Denies: Diarrhea, Vomiting Musculoskeletal: Denies: Neck Pain Neurological: Denies: Weakness Psych: Reports: Mood Normal Objective Physical Examination General Exam: Positive: Alert, No Acute Distress ENT Exam: Positive: Mucous membr. moist/pink Chest Exam: Positive: Clear to auscultation, Normal air movement Heart Exam: Positive: Normal S1, Normal S2, Rate Normal Abdomen Exam: Positive: Normal bowel sounds, Soft Extremity Exam: Positive: Edema Neuro Exam: Positive: Cranial Nerves 3-12 NL, Normal Speech, Normal Tone, Other , Strength at 5/5 X4 ext Assessment /Plan Problems (1) Bacteremia due to Gram-negative bacteria Status: Acute Problem Text: D2 cipro 01/17 Tyler consulted re abx coverage-changed to noemí via CVC 01/15 BCX from port + G- rods 01/15 1500 cipro 400 IV BID started 01/13 BCX 10/17 R. radiobacter 12/30 Ramsey catheter placed by Dr. Moreira (2) Chronic foot ulcer Status: Chronic Response to Treatment: Worse, Uncontrolled Discussed With: Reconciler Problem Specific Plan: Monitor Clinically, Repeat Labs Problem Text: 01/17 - Dr Guerra saw the pt yesterday and performed debridement , will address with Dr Scott today. 01/16 Ulcer and surrounding cellulitis appear worse today - I d/w Dr. Guerra who will see her today. (3) Cellulitis, toe Status: Acute Response to Treatment: Stable Discussed With: Nurse, Patient Problem Specific Plan: Monitor Clinically, Repeat Labs Problem Text: 01/17 changed to noemí by Tyler 01/16 - Zyvox D4; erythema and swelling a bit worse today with some increase in tenderness; WBCs low today at 3.2. 01/15 - Wound cultures grew MSSA and Strep Agalactiae Group B; strep is pansensitive and MSSA is sensitive to oxacillin and Bactrim (patient is allergic to both) as well as vanco and zyvox; today is day 3 of Zyvox. Erythema and swelling is somewhat improving. 01/14 - Zyvox D 2, Has responded to this in the past. This was recently d/c per Dr Scott, who has followed her as an outpt in the past as well. MRI in 11/02 without compelling evidence of OM. Cultures pending. (4) Uncontrolled diabetes mellitus Onset Date: 11/12/2014 Status: Chronic Response to Treatment: Stable, Improving Problem Specific Plan: Monitor Clinically Problem Text: Blood sugars are fairly well controlled on home Toujeo and Humalog with one high BS yesterday - continue to monitor. (5) History of DVT (deep vein thrombosis) Status: Chronic Problem Text: HD warfarin 1.5/1 alt 01/17 1.3-[address] 01/16 1.4-2 01/15 1.8-2 (6) Tremor Status: Acute Problem Text: Patient has new onset mild intention tremor of hands; she denies feeling cold. She states this started yesterday prior to receiving Ciprofloxacin. She is extremely anxious about the possibility of her line being infected and possibly needing to be pulled, as she is hoping to have surgery on her hand in a few weeks. I suspect this tremor is related to stress/ anxiety. Neurologic exam is otherwise normal. Will monitor. Plan/VTE VTE Prophylaxis Ordered?: Yes VS, I&O, 24H, Pam Vital Signs/I&O Vital Signs Date Time Temp Pulse Resp B/P Pulse Ox O2 Delivery O2 Flow Rate FiO2 01/17/17 08:11 114/79 01/17/17 08:11 Room Air 01/17/17 06:02 15 01/17/17 06:00 96.8 58 96 I&O- Last 24 Hours up to 6 AM 01/17/17 06:00 Intake Total 3380 ml Output Total 1400 ml Balance 1980 ml Laboratory Data 24H LABS Laboratory Tests 2 01/17/17 05:31: Albumin 2.3L, Blood Urea Nitrogen 27H, Creatinine 0.90, Sodium Level 142, Potassium Level 4.3, Chloride Level 105, Carbon Dioxide Level 34H, Anion Gap 3L , C-Reactive Protein, Quantitative 1.95H, Calcium Level 8.8, Glomerular Filtration Rate > 60.0, Phosphorus Level 4.2, Prothromb Time International Ratio 1.27, Prothrombin Time 16.0H CBC/BMP Laboratory Tests 01/17/17 05:31 Anion Gap 3 L, Red Blood Count 3.54 L, Mean Corpuscular Volume 84.1, Mean Corpuscular Hemoglobin 26.7 L, Mean Corpuscular Hemoglobin Concent 31.8 L, Red Cell Distribution Width 15.2 H Microbiology Microbiology 01/15/17 Blood Culture - Preliminary, Resulted 01/15/17 Blood Culture - Preliminary, Resulted No growth after 24 hours . All specim... 01/13/17 Blood Culture - Final, Complete Rhizobium Radiobacter 01/13/17 Wound Culture - Final, Complete Staphylococcus Aureus Strep Agalactiae Group B LATASHA STRANGE PA-C Jan 17, 2017 10:36 Rashid Morgan M.D. Jan 17, 2017 16:57 Rhizobium Radiobacter 01/13/17 Wound Culture - Final, Complete Staphylococcus Aureus Strep Agalactiae Group B LATASHA STRANGE PA-C Jan 17, 2017 10:36
[2017-01-17 14:00] VITALS: BP 153/84
[2017-01-17] MEDS ORDERED: VANCOMYCIN HCL 1,000 MG, VIAL MATE ADAPTER 1 EACH in D5W 250 ML IV SCH (16:45)
[2017-01-17] MEDS ORDERED: WARFARIN SOD 1 MG TAB PO ONE (17:00)
[2017-01-17] MEDS: WARFARIN SOD 2 MG TAB PO SCH (18:40)
[2017-01-17] MEDS: MEROPENEM INJ 1 GM in D5W MINI-BAG PLUS 100 ML IV SCH (18:40)
[2017-01-17] MEDS: QUEtiapine FUMARATE 200 MG TAB PO SCH (20:52)
[2017-01-17] MEDS: rOPINIRole 1MG TAB PO SCH (20:52)
[2017-01-17] MEDS: PRAMIPEXOLE 1 MG TAB PO SCH (20:52)
[2017-01-17] MEDS: FAMOTIDINE 20 MG TAB PO SCH (20:53)
[2017-01-17] MEDS: SPIRONOLACTONE 25 MG TAB PO SCH (20:53)
[2017-01-17] MEDS: MONTELUKAST 10 MG TAB PO SCH (20:53)
[2017-01-17] MEDS: traZODone 100 MG TAB PO SCH (20:53)
[2017-01-17 22:00] VITALS: BP 164/82
[2017-01-18] MEDS: MEROPENEM INJ 1 GM in D5W MINI-BAG PLUS 100 ML IV SCH ×3 (00:25→17:52)
[2017-01-18] MEDS: SODIUM CHLORIDE 0.9% INJ 10 ML SYR IV SCH ×3 (05:15→22:42)
[2017-01-18] MEDS: ALPRAZolam 0.5 MG TAB PO PRN ×3 (05:16→22:49)
[2017-01-18] MEDS: PERCOCET 5MG/325MG TAB PO PRN ×4 (05:16→22:50)
[2017-01-18 05:37] LABS: MEAN CORPUSCULAR HEMOGLOBIN 26.9 pg (27.0-33.0); MEAN CORPUSCULAR VOLUME 84.1 fl (80.0-96.0); RED CELL DISTRIBUTION WIDTH 15.4 % (11.5-14.5); WHITE BLOOD COUNT 3.4 K/mm3 (4.0-10.0)
[2017-01-18 05:51] LABS: INR 1.2
[2017-01-18 05:55] LABS: ALBUMIN 2.3 GM/DL (3.2-5.2); CALCIUM LEVEL 8.3 MG/DL (8.5-10.1); CREATININE FOR GFR 1.05 MG/DL (0.55-1.02); GLOMERULAR FILTRATION RATE 59.8 (>58); PHOSPHORUS LEVEL 4.7 MG/DL (2.5-4.9); POTASSIUM SERUM 4.6 MEQ/L (3.5-5.1)
[2017-01-18 06:00] VITALS: BP 150/78
[2017-01-18] MEDS: SYMBICORT 160/4.5MCG INHALER 6GM INH SCH ×2 (07:39→20:00)
[2017-01-18] MEDS: HUMALOG 200 UNIT/ML SC SCH ×3 (08:08→17:52)
[2017-01-18] MEDS: TOUJEO 300 UNIT/ML SC SCH ×2 (08:09→22:41)
[2017-01-18] MEDS: ENOXAPARIN 30 MG/0.3 ML SYR (J1650) SC SCH (08:10)
[2017-01-18] MEDS: OMEPRAZOLE 20 MG CAP PO SCH ×2 (08:10→22:42)
[2017-01-18] MEDS: METOCLOPRAMIDE 5 MG TAB PO SCH ×3 (08:11→22:43)
[2017-01-18] MEDS: BENAZEPRIL 20 MG TAB PO SCH (08:13)
[2017-01-18] MEDS: DULoxetine 30 MG CAP (CYMBALTA) PO SCH ×2 (08:13→22:42)
[2017-01-18] MEDS: CHLORTHALIDONE 12.5MG PER 1/2 TABLET PO SCH (08:14)
[2017-01-18] MEDS: PREGABALIN 100 MG CAP (LYRICA) PO SCH ×2 (08:14→22:43)
[2017-01-18] MEDS: DOCUSATE SODIUM 100 MG CAP PO SCH ×2 (08:14→22:42)
[2017-01-18] MEDS: DIVALPROEX 250 MG TAB PO SCH ×2 (08:14→22:43)
[2017-01-18] MEDS: MUPIROCIN 2% OINT 22 GM TUBE TOP SCH ×2 (08:15→22:44)
--- NOTE | 2017-01-18 08:30 | CR ---
DATE OF CONSULTATION: 01/17/2017 REQUESTING PROVIDER: I was asked to consult by Dr. Morgan REASON FOR CONSULTATION: Evaluation of left lower extremity ulcer and positive blood cultures. HISTORY OF PRESENT ILLNESS: Rebeca is a 46-year-old female with a history of left foot diabetic foot ulcer that has been slow to heal. It developed about four months ago. It is followed by Dr. Guerra. The patient had been on linezolid for at least 6 weeks intermittently over the past couple months. She states that the ulcer has been debrided by Dr. Guerra, and she is followed by Brionna Hernandez. Cultures from this ulcer have been positive for methicillin sensitive Staphylococcus aureus (MSSA) and Group B strep. She had an MRI done in November, which did not show any evidence of osteomyelitis but it did show Charcot arthropathy. She stated that she came to the hospital because of worsening pain in the left foot, as well as redness that extended beyond the margin that she used to have. Previous culture on that foot was done on 10/27/2016, which was positive for group B strep and E faecalis. The patient also had cultures done to her central line, which was recently placed 3 weeks ago because of poor IV access and has been positive for Rhizobium radiobacter on 01/13/2017. Peripheral blood culture was done on 01/15/2017 and was negative. The second blood culture done from the port on 01/15/2017 was positive for gram negative rods as well. PAST MEDICAL HISTORY: Her past medical history is extensive, includin. Poorly compliant diabetes. 2. Morbid obesity. 3. Bipolar disorder on multiple medications. 4. Chronic pain. 5. Chronic osteomyelitis of the right foot status post ray amputation of the fifth digit. 6. Chronic ulcer of the left foot with Charcot arthropathy. 7. History of pulmonary embolism. 8. Mild hypogammaglobulinemia. 9. Obstructive sleep apnea, does not use continuous positive airway pressure (CPAP). 10. Chronic obstructive pulmonary disease (COPD). 11. Dyslipidemia. 12. Hypertension. 13. Gastroesophageal reflux disease (GERD). 14. Fibromyalgia. 15. Obsessive compulsive disorder (OCD). 16. Spina bifida occulta. 17. Temporal lobe seizures. 18. Hiatus hernia. 19. Factor V Leiden. PAST SURGICAL HISTORY: 1. Cholecystectomy in 1995. 2. Discectomy and fusion 1994. 3. Hysterectomy. 4. Lumpectomy of the right breast 2003. 5. Appendectomy. 6. Multiple Port-A-Cath and Nmmyhs-G-Zior placements with infections. 7. Stool transplant for Clostridium (C.) difficile. 8. Bilateral temporomandibular joint surgery. SOCIAL HISTORY: Denies tobacco abuse, smokes electric cigarettes. 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 MEDICATIONS: - Lovenox 30 mg subcutaneous daily - warfarin 2 mg daily - ciprofloxacin 400 mg IV every 12 hours - chlorthalidone 12.5 mg daily - Cymbalta 60 mg daily - Colace 100 mg twice a day - Symbicort two puffs twice a day - Depakote 250 mg by mouth twice a day - Reglan 5 mg by mouth three times a day - Singulair 10 mg by mouth at night - Prilosec 40 mg by mouth twice a day - Lyrica 200 mg by mouth at night - Seroquel 300 mg by mouth twice a day - Seroquel 600 mg by mouth at night - famotidine 20 mg by mouth at night - Requip 4 mg by mouth at night - aldactone 25 mg by mouth at night - trazodone 100 mg by mouth at night - Toujeo - linezolid 600 mg IV every 12 hours - Xanax 1 mg four times a day - Bentyl 10 mg by mouth three times a day - Lasix 40 mg by mouth twice a day - furosemide - Percocet as needed LABORATORY DATA From 01/17/2017: White count 3.8, hemoglobin 9.5, hematocrit 29.8, platelets 237. Sodium 142, potassium 4.3, chloride 105, bicarbonate 34, BUN 27, creatinine 0.9, glucose 109, calcium 8.8, C-reactive protein 1.8, down from 11.9. Blood cultures 01/13/2017 was positive for Rhizobium. Foot culture on the left side positive for MSSA and Group B strep. Peripheral blood culture is negative. Foot x-ray shows extensive destructive changes involving the mid left foot, osteomyelitis cannot be ruled out. PHYSICAL EXAMINATION: HEART: Normal S1, S2. No murmurs. LUNGS: Diminished breath sounds. ABDOMEN: Morbidly obese, soft, nontender. EXTREMITIES: Trace edema. Central line in the right upper chest. There is no surrounding erythema. Left foot has an extensive ulcer measuring at least 10 x 7 cm with cracks along the middle of the left foot laterally, dry skin. There is erythema extending to the medial aspect of the foot to the arch of the foot and anteriorly. There is tenderness. She has no fluctuance noted. IMPRESSION: 1. 46-year-old with insulin-dependent diabetes, poorly controlled, who presented with worsening cellulitis of left foot in spite of being on oral linezolid for about 6 weeks. The patient has had previously group B strep in the left foot. She has worsening cellulitis and the concern for osteomyelitis. 2. The patient recently had a central line placed for poor IV access and has positive blood cultures with Rhizobium radiobacter and the patient, I suspect, does not do sterile procedure while flushing her line, which is being flushed once a week. The patient does not have bacteremia or sepsis, but the line is colonized as the peripheral blood culture was negative. PLAN: Discontinue linezolid, switch her to IV meropenem and that should cover the foot MSSA group B strep and the positive blood culture with Rhizobium. The patient will need 2 weeks of IV antibiotics through her central line. She was scheduled for ulnar nerve and carpal tunnel surgery for 2 weeks from now, which I doubt will be able to be done. At this point, we need to take care of her line and her foot before she gets surgery on her right arm. The case has been discussed with Dr. Guerra, who agrees with scheduling an MRI of the foot to make sure that there is no abscess. This will be scheduled for tomorrow.
--- NOTE | 2017-01-18 10:28 | IPNPDOC ---
Subjective Date Seen The patient was seen on 01/18/17. Subjective Chief Complaint/HPI Pt this morning c/o tremor in her hands for three days. She wasn't taking her Xanax as usual until yesterday, but has seen no improvement in the tremor since starting this. General: Reports: Fatigue Constitutional: Reports: Chills, Denies: Fever ENT: Denies: Head Aches Pulmonary: Reports: Dyspnea, Denies: Cough Gastrointestinal: Reports: Nausea, Denies: Diarrhea, Vomiting Genitourinary: Denies: Dysuria Objective Physical Examination General Exam: Positive: Alert, No Acute Distress ENT Exam: Positive: Mucous membr. moist/pink Chest Exam: Positive: Clear to auscultation, Normal air movement Heart Exam: Positive: Normal S1, Normal S2, Rate Normal Abdomen Exam: Positive: Normal bowel sounds, Soft Extremity Exam: Positive: Edema Neuro Exam: Positive: Cranial Nerves 3-12 NL, Normal Speech, Normal Tone, Other , Strength at 5/5 X4 ext Assessment /Plan Problems (1) Bacteremia due to Gram-negative bacteria Status: Acute Problem Text: 01/18 - Dr Scott has change to meropenam q8h x 2 weeks, as central line for administration 01/17 yTler consulted re abx coverage-changed to noemí via CVC 01/15 BCX from port + G- rods 01/15 1500 cipro 400 IV BID started 01/13 BCX 10/17 R. radiobacter 12/30 Ramsey catheter placed by Dr. Moreira (2) Chronic foot ulcer Status: Chronic Response to Treatment: Worse, Uncontrolled Discussed With: White Shoe Examiner Problem Specific Plan: Monitor Clinically, Repeat Labs Problem Text: 01/18 - Meropenam d2, per ID. 01/17 - Dr Guerra saw the pt yesterday and performed debridement, will address with Dr Scott today. 01/16 Ulcer and surrounding cellulitis appear worse today - I d/w Dr. Guerra who will see her today. (3) Cellulitis, toe Status: Acute Response to Treatment: Stable Discussed With: Nurse, Patient Problem Specific Plan: Monitor Clinically, Repeat Labs Problem Text: 01/17 changed to noemí by Tyler 01/16 - Zyvox D4; erythema and swelling a bit worse today with some increase in tenderness; WBCs low today at 3.2. 01/15 - Wound cultures grew MSSA and Strep Agalactiae Group B; strep is pansensitive and MSSA is sensitive to oxacillin and Bactrim (patient is allergic to both) as well as vanco and zyvox; today is day 3 of Zyvox. Erythema and swelling is somewhat improving. 01/14 - Zyvox D 2, Has responded to this in the past. This was recently d/c per Dr Scott, who has followed her as an outpt in the past as well. MRI in 11/02 without compelling evidence of OM. Cultures pending. (4) Uncontrolled diabetes mellitus Onset Date: 11/12/2014 Status: Chronic Response to Treatment: Stable, Improving Problem Specific Plan: Monitor Clinically Problem Text: Blood sugars are fairly well controlled on home Toujeo and Humalog with one high BS yesterday - continue to monitor. (5) History of DVT (deep vein thrombosis) Status: Chronic Problem Text: 01/18 - INR 1.2 today, continues to trend down despite HD Coumadin, will given 5 mg today. 01/17 1.3-[address], HD warfarin 1.5/1 alt 01/16 1.4-2 01/15 1.8-2 (6) Tremor Status: Acute Problem Text: 01/17 Patient has new onset mild intention tremor of hands; she denies feeling cold. She states this started yesterday prior to receiving Ciprofloxacin. She is extremely anxious about the possibility of her line being infected and possibly needing to be pulled, as she is hoping to have surgery on her hand in a few weeks. I suspect this tremor is related to stress/ anxiety. Neurologic exam is otherwise normal. Will monitor. Plan/VTE VTE Prophylaxis Ordered?: Yes VS, I&O, 24H, Fishbone Vital Signs/I&O Vital Signs Date Time Temp Pulse Resp B/P Pulse Ox O2 Delivery O2 Flow Rate FiO2 01/18/17 08:13 178/90 01/18/17 06:00 97.5 83 20 97 01/17/17 21:05 Room Air I&O- Last 24 Hours up to 6 AM 01/18/17 06:00 Intake Total 2540 ml Output Total 1200 ml Balance 1340 ml Laboratory Data 24H LABS Laboratory Tests 2 01/17/17 11:21: Bedside Glucose (Misc Panel) 145H 01/17/17 17:01: Bedside Glucose (Misc Panel) 133H 01/18/17 05:23: Albumin 2.3L, Blood Urea Nitrogen 31H, Creatinine 1.05H, Sodium Level 141, Potassium Level 4.6, Chloride Level 106, Carbon Dioxide Level 31, Anion Gap 4L, C-Reactive Protein, Quantitative 1.42H, Calcium Level 8.3L, Glomerular Filtration Rate 59.8, Phosphorus Level 4.7 01/18/17 05:24: Prothromb Time International Ratio 1.20, Prothrombin Time 15.3H CBC/BMP Laboratory Tests 01/18/17 05:23 Anion Gap 4 L, Red Blood Count 3.56 L, Mean Corpuscular Volume 84.1, Mean Corpuscular Hemoglobin 26.9 L, Mean Corpuscular Hemoglobin Concent 32.0, Red Cell Distribution Width 15.4 H Microbiology Microbiology 01/15/17 Blood Culture - Preliminary, Resulted 01/15/17 Blood Culture - Preliminary, Resulted No Growth after 48 hours. All Specime... 01/13/17 Blood Culture - Final, Complete Rhizobium Radiobacter 01/13/17 Wound Culture - Final, Complete Staphylococcus Aureus Strep Agalactiae Group B LATASHA STRANGE PA-C Jan 18, 2017 10:28
--- NOTE | 2017-01-18 11:31 | REP ---
MRI left foot without and with IV gadolinium: History: Osteomyelitis. Comparison MRI study is from November 10, 2016. Comparison radiographs are from January 16, 2017. Gadolinium enhancement dose: 23 ml of intravenous ProHance is administered. MR technique: Axial, coronal and sagittal imaging planes are utilized. T1 and T2-weighted scans were obtained in the usual fashion with and without fat saturation. MRI findings: Again noted are changes of severe advanced neuropathic arthropathy involving the midfoot with fragmentation, bone destruction and remodeling throughout the cuneiform, cuboid, navicular bones and to a lesser extent the hind foot tarsal bones. This is essentially unchanged from the November 10, 2016 study on T1-weighted scans. There is tibiotalar arthropathy as well with osteochondral defect type lesions on the anterior aspect of the tibial plafond and the opposing talar dome also unchanged. There is anterior and posterior tibiotalar ankle joint effusion. This is unchanged. The midfoot articulations are disrupted with collapse of the plantar arch as before and a vertical orientation to the talus unchanged. There are multiple areas of increased T2 hyperintensity in the remaining tarsal bone fragments as well as in the talus. There is no area of suspicious T1 hypointensity to suggest active osteomyelitis and this appearance is unchanged. There is some fluid in the tendon sheath associated with the tibialis posterior and flexor hallicis longus tendons similar to the prior study. No soft tissue abscess is seen. There is soft tissue edema and some skin irregularity at the volar aspect of the midfoot as before. Impression: No MR evidence of abscess or definite osteomyelitis. 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 Signed by Obdulio Ruiz MD 01/18/2017 06:04 P
[2017-01-18 14:00] VITALS: BP 133/86
[2017-01-18] MEDS ORDERED: WARFARIN SOD 3 MG TAB PO ONE (17:00)
[2017-01-18] MEDS: WARFARIN SOD 2 MG TAB PO SCH (17:51)
--- NOTE | 2017-01-18 21:19 | IPN ---
DATE: 01/18/2017 Rebeca complains of some tremor today. She denies any other issues. She continues to complain of left lower extremity pain and fatigue. She has tolerated meropenem without any allergies. No nausea, vomiting, diarrhea, fever or chills. She had an MRI of the left foot done which showed severe Charcot arthropathy changes but no evidence of abscess or osteomyelitis. This was ready by Dr. Andrez Ruiz. PHYSICAL EXAMINATION: heart normal S1-2 no murmurs Lungs are clear. No wheezes, rales or rhonchi. Abdomen: Morbidly obese, soft, nontender. Left lower extremity erythema unchanged with a large ulcer on the bottom of the foot measuring about 10 x 7 cm with erythema medially. There is no fluctuance. Temperature is 97.3, pulse 87, respirations 20, blood pressure 133/86, oxygen saturation 97% on room air. White count is 3.4, hemoglobin 9.6, hematocrit 29.9, platelets 244. Sodium 141, potassium 4.6, chloride 106, bicarbonate 31, BUN 31, creatinine 1, glucose 149, calcium 8.3, phosphorus 4.7, CRP 1.42, albumin 2.3. Wound culture was positive for methicillin-sensitive Staphylococcus aureus (MSSA ) of the left foot. Blood cultures only from the port are positive for Rhizobium radiobacter on two cultures from the port. IMPRESSION: 1. Cellulitis of the left foot with culture positive for MSSA and group B Strep, on IV meropenem. No evidence of osteomyelitis or abscess by MRI. 2. Line colonization with Rhizobium. There is no evidence of bacteremia or sepsis. This was probably just colonization of her line, but it still needs to be treated. That should be covered with meropenem. PLAN: Continue IV meropenem 1 gram every 8 hours through the central line. The patient will need to go home with IV antibiotics for a total of 2 weeks. She is currently day #2. Also, I discussed with her nurse to monitor how she flushes her line, and she will be given also alcohol caps to cover the ports. LAURIE
[2017-01-18 22:00] VITALS: BP 160/88
[2017-01-18] MEDS: SPIRONOLACTONE 25 MG TAB PO SCH (22:42)
[2017-01-18] MEDS: MONTELUKAST 10 MG TAB PO SCH (22:42)
[2017-01-18] MEDS: rOPINIRole 1MG TAB PO SCH (22:42)
[2017-01-18] MEDS: QUEtiapine FUMARATE 200 MG TAB PO SCH (22:42)
[2017-01-18] MEDS: FAMOTIDINE 20 MG TAB PO SCH (22:43)
[2017-01-18] MEDS: PRAMIPEXOLE 1 MG TAB PO SCH (22:43)
[2017-01-18] MEDS: traZODone 100 MG TAB PO SCH (22:49)
[2017-01-19] MEDS: MEROPENEM INJ 1 GM in D5W MINI-BAG PLUS 100 ML IV SCH ×2 (01:24→08:35)
[2017-01-19 06:00] VITALS: BP 160/88
[2017-01-19] MEDS: PERCOCET 5MG/325MG TAB PO PRN ×2 (06:12→13:15)
[2017-01-19] MEDS: ALPRAZolam 0.5 MG TAB PO PRN ×2 (06:12→14:56)
[2017-01-19] MEDS: SODIUM CHLORIDE 0.9% INJ 10 ML SYR IV SCH ×2 (06:12→14:56)
[2017-01-19 06:40] LABS: INR 1.24
[2017-01-19 06:53] LABS: ALBUMIN 2.5 GM/DL (3.2-5.2); ANION GAP 3 MEQ/L (8-16); BLOOD UREA NITROGEN 26 MG/DL (7-18); CALCIUM LEVEL 8.5 MG/DL (8.5-10.1); CARBON DIOXIDE LEVEL 32 MEQ/L (21-32); CHLORIDE LEVEL 106 MEQ/L (98-107); CREATININE FOR GFR 0.91 MG/DL (0.55-1.02); GLOMERULAR FILTRATION RATE > 60.0 (>58); GLUCOSE, FASTING 128 MG/DL (70-105); PHOSPHORUS LEVEL 4.3 MG/DL (2.5-4.9); POTASSIUM SERUM 4.9 MEQ/L (3.5-5.1); SODIUM LEVEL 141 MEQ/L (136-145)
[2017-01-19 07:03] LABS: MEAN CORPUSCULAR HEMOGLOBIN 26.7 pg (27.0-33.0); MEAN CORPUSCULAR HGB CONC 31.9 g/dl (32.0-36.5); MEAN CORPUSCULAR VOLUME 83.7 fl (80.0-96.0); RED CELL DISTRIBUTION WIDTH 15.1 % (11.5-14.5); WHITE BLOOD COUNT 3.8 K/mm3 (4.0-10.0)
[2017-01-19] MEDS: SYMBICORT 160/4.5MCG INHALER 6GM INH SCH (07:50)
[2017-01-19] MEDS: DOCUSATE SODIUM 100 MG CAP PO SCH (08:34)
[2017-01-19] MEDS: HUMALOG 200 UNIT/ML SC SCH ×2 (08:34→11:53)
[2017-01-19] MEDS: ENOXAPARIN 30 MG/0.3 ML SYR (J1650) SC SCH (08:35)
[2017-01-19] MEDS: TOUJEO 300 UNIT/ML SC SCH (08:35)
[2017-01-19] MEDS: DULoxetine 30 MG CAP (CYMBALTA) PO SCH (08:36)
[2017-01-19] MEDS: OMEPRAZOLE 20 MG CAP PO SCH (08:36)
[2017-01-19] MEDS: METOCLOPRAMIDE 5 MG TAB PO SCH ×2 (08:36→15:00)
[2017-01-19] MEDS: CHLORTHALIDONE 12.5MG PER 1/2 TABLET PO SCH (08:36)
[2017-01-19] MEDS: PREGABALIN 100 MG CAP (LYRICA) PO SCH (08:36)
[2017-01-19 08:37] VITALS: BP 160/88
[2017-01-19] MEDS: MUPIROCIN 2% OINT 22 GM TUBE TOP SCH (08:37)
[2017-01-19] MEDS: DIVALPROEX 250 MG TAB PO SCH (08:37)
[2017-01-19] MEDS: BENAZEPRIL 20 MG TAB PO SCH (08:37)
--- NOTE | 2017-01-19 15:22 | IPN ---
DATE: 01/19/2017 Rebeca is seen in [address] [place] [address]. I spoke with the vocational education teacher and spoke with the nurse. Plan is for discharge tomorrow. [facility] has been educating her on how to do her home IV antibiotics. Per nurse, Dr. Scott is going to write her prescriptions tomorrow and we are going to try to get home health in to see her. Per patient and family services (PFS) report, there are no home health services available until Tuesday, but I spoke with Daphney, her nurse, and she thinks this can be worked out for tomorrow evening. At this point we are just adjusting the dose of her warfarin and waiting for all the pieces to come together for her home antibiotic therapy. Her diabetes remains under good control with blood sugar between 98-124.
[2017-01-19] MEDS ORDERED: WARFARIN SOD 5 MG TAB PO ONE (16:00)
--- NOTE | 2017-01-19 16:30 | DSES ---
DATE OF ADMISSION: 01/13/2017 DATE OF DISCHARGE: 01/19/2017 PRINCIPAL DIAGNOSIS: Cellulitis of the foot, culture positive for methicillin-sensitive Staphylococcus aureus (MSSA) and group B Streptococcus. No evidence of osteomyelitis or abscess. SECONDARY DIAGNOSES: 1. Lyme colonization with Rhizobium without evidence of bacteremia or sepsis. 2. Loosely controlled type 2 diabetes. 3. History of deep venous thrombosis (DVT), on chronic warfarin therapy. 4. Chronic tremor. 5. Morbid obesity. 6. Chronic obstructive pulmonary disease (COPD). 7. Obstructive sleep apnea (PA), for which she does not use continuous positive airway pressure (CPAP). 8. Temporal lobe seizures. HISTORY: Rebeca Soliz was admitted with cellulitis of her left foot and sent to the hospital by Dr. Guerra, who felt she had failed outpatient therapy. Details are in history and physical from admission. HOSPITAL COURSE: Patient was admitted to a medical bed. Started on IV antibiotics with vancomycin and Cipro. Dr. Scott was consulted, she evaluated the cultures, she recommended IV meropenem, will cover the foot as well as the Rhizobium, recommended 2 weeks of this through a central line. Did an MRI of the foot, which confirmed no osteomyelitis or abscess. On the day of discharge, the plan has been made for her to go home with home IV antibiotics and that has been arranged by Dr. Scott through [facility], they have taught the patient how to do this and feel she can go today. Therefore, patient is being discharged home today. She will followup with Dr. Scott in 1 week, followup with her primary care provider in 1 week. She has home health care being arranged by [facility] ([facility]). She will see Dr. Guerra in a week. Activity is as per Dr. Guerra. She can be on the no concentrated sweets diet. Today's exam was deferred as her foot had just been dressed. Her labs show a white count of 3.8, hemoglobin 9.6, platelets 221. Sodium 141, potassium 4.9, BUN 26, creatinine 0.9, glucose 128, C-reactive protein 11 on admission, 1.3 today. INR 2.3 on admission, fell to 1.24 with the antibiotic therapy, warfarin dose has been adjusted. Followup INR in the office in 2 days. Wound culture grew out methicillin-sensitive Staphylococcus aureus, group B Streptococcus. Two blood cultures grew out Rhizobium which Dr. Scott thinks is contaminant. DISCHARGE MEDICATIONS: - meropenem 1 gram IV every 8 hours as directed by Dr. Scott - line flushes per Dr. Scott - warfarin will be 5 mg daily today before discharge, then 3 mg daily tomorrow, then a PT/INR in the office with Dr. Pastrana on 01/21/2017 Her medications will otherwise be unchanged. - albuterol two puffs every 4 hours as needed - alprazolam 1 mg four times a day as needed - benazepril 40 mg daily - Symbicort 160-4.5 two puffs twice a day - chlorthalidone 12.5 mg half a tablet daily - dicyclomine 10 mg three times a day as needed for abdominal cramps - Depakote 250 mg twice a day - Cymbalta 90 mg daily - eszopiclone 3 mg at bedtime - furosemide 40 mg twice a day as needed for edema - gentamicin topical to ulcers on the foot as needed - Humalog per sliding scale - Xopenex 1.25 mg every 8 hours as needed nebulizer shortness of breath - various eye drops - loperamide 2 mg every 4 hours as needed - Reglan 5 mg three times a day - Singulair 10 mg daily - nystatin powder under the breasts three times a day as needed for rash - omeprazole 40 mg twice a day - pramipexole 1 mg nightly - Lyrica 300 mg twice a day - Seroquel 600 mg nightly - Zantac 150 mg nightly - ropinirole 4 mg nightly - spironolactone 25 mg nightly - Toujeo dose reduced to 100 mg nightly (was taking 125 mg in the morning, 100 mg nightly, but on the enforced diabetic diet in the hospital her blood sugars have been as low as 68, generally between 98-120 on significantly reduced dose of medication) - tramadol 50 mg every 8 hours as needed for pain - trazodone 100 mg nightly - warfarin will be 5 mg tonight, 3 mg tomorrow, then a PT/INR in the office on 01/21/2017, or through home health nursing on 01/21/2017 Activity per podiatry. No concentrated sweets diet.
[2017-01-20] MEDS ORDERED: WARFARIN SOD 5 MG TAB PO SCH (17:00)
== END 2017-01-19 17:05 | disposition home health service (06) | DRG 571 ==
LOC: M ED INP 16:39 → M MSPAV 16:55
PROVIDERS: ADMIT Hospitalist; ATTEND Family Medicine
PROC: 0JBR0ZZ Excision of Left Foot Subcutaneous Tissue and Fascia, Open Approach (ICD-10-PCS; principal; 2017-01-16)
DX: L03.116 Cellulitis of left lower limb (principal); G40.89 Other seizures; T80.218A Other infection due to central venous catheter, initial encounter; R78.81 Bacteremia; B95.62 Methicillin resistant Staphylococcus aureus infection as the cause of diseases classified elsewhere; B95.1 Streptococcus, group B, as the cause of diseases classified elsewhere; E66.01 Morbid (severe) obesity due to excess calories; J44.9 Chronic obstructive pulmonary disease, unspecified; G47.33 Obstructive sleep apnea (adult) (pediatric); R25.1 Tremor, unspecified; E11.621 Type 2 diabetes mellitus with foot ulcer; I10 Essential (primary) hypertension; F40.00 Agoraphobia, unspecified; F31.9 Bipolar disorder, unspecified; E11.610 Type 2 diabetes mellitus with diabetic neuropathic arthropathy; E78.5 Hyperlipidemia, unspecified; K21.9 Gastro-esophageal reflux disease without esophagitis; E11.40 Type 2 diabetes mellitus with diabetic neuropathy, unspecified; F17.290 Nicotine dependence, other tobacco product, uncomplicated; K70.0 Alcoholic fatty liver; M79.7 Fibromyalgia; B96.89 Other specified bacterial agents as the cause of diseases classified elsewhere; Q76.0 Spina bifida occulta; L97.529 Non-pressure chronic ulcer of other part of left foot with unspecified severity; L40.9 Psoriasis, unspecified; G25.81 Restless legs syndrome; Z79.01 Long term (current) use of anticoagulants; Z86.718 Personal history of other venous thrombosis and embolism; Z79.4 Long term (current) use of insulin; Z90.49 Acquired absence of other specified parts of digestive tract; Z79.899 Other long term (current) drug therapy; Z90.710 Acquired absence of both cervix and uterus; Z88.0 Allergy status to penicillin; Z88.2 Allergy status to sulfonamides; Z88.8 Allergy status to other drugs, medicaments and biological substances; Z89.421 Acquired absence of other right toe(s)

== ENCOUNTER → 2017-01-13 | Outpatient (REF) | payer OTHER ==
[~2017-01-13] MED LIST changes: +DEPA250T32 PO; +DICY10CA13 PO; +GENT0.1C2 TOP; +HEPA10PFSY IV; +NORMINJ22 IV; -NS 1,000 ML IV SCH; -PROPOFOL 200 MG/20 ML VIAL As Ordered ONE; +ROPI4TAB PO; -SODIUM CHLORIDE 0.9% INJ 10 ML SYR IV ONE; +XIID5DRO OU
== END ==
LOC: M LAB REF 15:50
PROVIDERS: ATTEND Podiatrist
DX: E11.621 Type 2 diabetes mellitus with foot ulcer (principal); M14.672 Charcot's joint, left ankle and foot

== ENCOUNTER → 2017-01-24 | Outpatient (REF) | payer OTHER ==
[~2017-01-24] MED LIST changes: +DEPA250T32 PO; +DICY10CA13 PO; +GENT0.1C2 TOP; +HEPA10PFSY IV; +NORMINJ22 IV; +ROPI4TAB PO; +XIID5DRO OU
[2017-01-24 14:27] LABS: BASO % 0.4 % (0.0-1.0); EOS # 0.2 K/mm3 (0.0-0.50); EOS % 3.4 % (0.0-3.0); LARGE UNSTAINED CELL # 0.1 K/mm3 (0.0-0.4); LARGE UNSTAINED CELL % 1.4 % (0.0-4.0); LYMPH # 1.1 K/mm3 (1.5-4.5); LYMPH % 15.4 % (24.0-44.0); MEAN CORPUSCULAR HEMOGLOBIN 26.2 pg (27.0-33.0); MEAN CORPUSCULAR HGB CONC 31.8 g/dl (32.0-36.5); MEAN CORPUSCULAR VOLUME 82.4 fl (80.0-96.0); MONO # 0.2 K/mm3 (0.0-0.8); MONO % 2.9 % (0.0-5.0); NEUTROPHILS % 76.5 % (36.0-66.0); PLATELET COUNT, AUTOMATED 179 k/mm3 (150-450); RED CELL DISTRIBUTION WIDTH 16.2 % (11.5-14.5); WHITE BLOOD COUNT 6.5 K/mm3 (4.0-10.0)
[2017-01-24 14:58] LABS: CALCIUM LEVEL 8.5 MG/DL (8.5-10.1); CREATININE FOR GFR 1.31 MG/DL (0.55-1.02); GLOMERULAR FILTRATION RATE 46.3 (>58); POTASSIUM SERUM 4.1 MEQ/L (3.5-5.1)
== END ==
LOC: M LAB REF 14:07
PROVIDERS: ATTEND Internal Medicine Infectious Disease
DX: M86.371 Chronic multifocal osteomyelitis, right ankle and foot (principal)

== ENCOUNTER → 2017-02-02 | Outpatient (REF) | payer OTHER ==
[2017-02-02 13:54] LABS: BASO % 0.5 % (0.0-1.0); EOS # 0.4 K/mm3 (0.0-0.50); EOS % 6.9 % (0.0-3.0); LARGE UNSTAINED CELL # 0.2 K/mm3 (0.0-0.4); LARGE UNSTAINED CELL % 2.5 % (0.0-4.0); LYMPH # 1.2 K/mm3 (1.5-4.5); LYMPH % 20.4 % (24.0-44.0); MEAN CORPUSCULAR HEMOGLOBIN 28.1 pg (27.0-33.0); MEAN CORPUSCULAR HGB CONC 33.8 g/dl (32.0-36.5); MEAN CORPUSCULAR VOLUME 83.1 fl (80.0-96.0); MONO # 0.3 K/mm3 (0.0-0.8); MONO % 4.7 % (0.0-5.0); NEUTROPHILS # 3.7 K/mm3 (1.8-7.7); PLATELET COUNT, AUTOMATED 154 k/mm3 (150-450); RED CELL DISTRIBUTION WIDTH 17.3 % (11.5-14.5); WHITE BLOOD COUNT 5.7 K/mm3 (4.0-10.0)
[2017-02-02 14:40] LABS: CALCIUM LEVEL 8.4 MG/DL (8.5-10.1); CREATININE FOR GFR 1.26 MG/DL (0.55-1.02); GLOMERULAR FILTRATION RATE 48.5 (>58); POTASSIUM SERUM 4.1 MEQ/L (3.5-5.1)
== END ==
LOC: M LAB REF 13:06
PROVIDERS: ATTEND Internal Medicine Infectious Disease
DX: M86.371 Chronic multifocal osteomyelitis, right ankle and foot (principal)

== ENCOUNTER → 2017-02-05 | Outpatient (REF) | payer OTHER | LOC: M LAB REF 19:37 | PROVIDERS: ATTEND Nurse Practitioner Family | DX: T80.219D Unspecified infection due to central venous catheter, subsequent encounter (principal); E11.40 Type 2 diabetes mellitus with diabetic neuropathy, unspecified; M86.371 Chronic multifocal osteomyelitis, right ankle and foot ==

== ENCOUNTER → 2017-02-14 | Outpatient (REF) | payer OTHER ==
[2017-02-14 14:57] LABS: BASO % 0.4 % (0.0-1.0); EOS # 0.2 K/mm3 (0.0-0.50); EOS % 2.2 % (0.0-3.0); LARGE UNSTAINED CELL # 0.1 K/mm3 (0.0-0.4); LARGE UNSTAINED CELL % 0.9 % (0.0-4.0); LYMPH # 1.4 K/mm3 (1.5-4.5); LYMPH % 16.3 % (24.0-44.0); MEAN CORPUSCULAR HEMOGLOBIN 28.7 pg (27.0-33.0); MEAN CORPUSCULAR HGB CONC 35.3 g/dl (32.0-36.5); MEAN CORPUSCULAR VOLUME 81.3 fl (80.0-96.0); MONO # 0.3 K/mm3 (0.0-0.8); MONO % 3.5 % (0.0-5.0); NEUTROPHILS # 6.7 K/mm3 (1.8-7.7); NEUTROPHILS % 76.8 % (36.0-66.0); PLATELET COUNT, AUTOMATED 298 k/mm3 (150-450); RED CELL DISTRIBUTION WIDTH 16.5 % (11.5-14.5); WHITE BLOOD COUNT 8.7 K/mm3 (4.0-10.0)
== END ==
LOC: M SFHCPLAZ 14:23
PROVIDERS: ATTEND Nurse Practitioner Family
DX: T80.219D Unspecified infection due to central venous catheter, subsequent encounter (principal); E61.1 Iron deficiency; E11.40 Type 2 diabetes mellitus with diabetic neuropathy, unspecified

== ENCOUNTER → 2017-02-22 | Outpatient (REF) | payer OTHER | LOC: M LAB REF 17:25 | PROVIDERS: ATTEND Podiatrist | DX: E11.621 Type 2 diabetes mellitus with foot ulcer (principal) ==

== ENCOUNTER → 2017-03-04 | Day surgery (SDC) | payer OTHER ==
[~2017-03-04] MED LIST changes: +COLA100C3 PO; +GENTAMICIN SULF INJ 80MG/2ML VIAL (J1580) As Ordered ONE; +LIDOCAINE 2% INJ 100 MG/5 ML SDV (FOR ANES.) As Ordered ONE; +LR 1,000 ML IV ONE; +LevoFLOXacin(LEVAQUIN)500 MG/100 ML BAG (J1956) As Ordered ONE; +MIDAZOLAM INJ 2 MG/2 ML VIAL (J2250) As Ordered ONE; +ONDANSETRON 4MG/2ML VIAL (J2405) As Ordered ONE; +PROB250C PO; +PROPOFOL 200 MG/20 ML VIAL As Ordered ONE; +VANCOMYCIN HCL 1,000 MG, VIAL MATE ADAPTER 1 EACH in D5W 250 ML IV ONE; +fentaNYL 100 MCG/2 ML INJECTION (J3010) As Ordered ONE
[2017-03-04 12:56] LABS: BASO % 0.4 % (0.0-1.0); EOS # 0.2 K/mm3 (0.0-0.50); EOS % 1.9 % (0.0-3.0); LARGE UNSTAINED CELL # 0.2 K/mm3 (0.0-0.4); LARGE UNSTAINED CELL % 1.5 % (0.0-4.0); LYMPH # 1.6 K/mm3 (1.5-4.5); LYMPH % 12.8 % (24.0-44.0); MEAN CORPUSCULAR HEMOGLOBIN 26.6 pg (27.0-33.0); MEAN CORPUSCULAR HGB CONC 33.1 g/dl (32.0-36.5); MEAN CORPUSCULAR VOLUME 80.4 fl (80.0-96.0); MONO # 0.6 K/mm3 (0.0-0.8); MONO % 5.2 % (0.0-5.0); NEUTROPHILS # 8.8 K/mm3 (1.8-7.7); NEUTROPHILS % 78.1 % (36.0-66.0); PLATELET COUNT, AUTOMATED 377 k/mm3 (150-450); RED CELL DISTRIBUTION WIDTH 15.5 % (11.5-14.5); WHITE BLOOD COUNT 11.3 K/mm3 (4.0-10.0)
[2017-03-04 13:01] LABS: ALBUMIN 2.6 GM/DL (3.2-5.2); ALBUMIN/GLOBULIN RATIO 0.49 (1.00-1.93); ALKALINE PHOSPHATASE 131 U/L (45-117); ALT/SGPT 11 U/L (12-78); ANION GAP 9 MEQ/L (8-16); AST/SGOT 11 U/L (15-37); BILIRUBIN,TOTAL 0.3 MG/DL (0.2-1.0); BLOOD UREA NITROGEN 13 MG/DL (7-18); CALCIUM LEVEL 8.9 MG/DL (8.5-10.1); CARBON DIOXIDE LEVEL 29 MEQ/L (21-32); CHLORIDE LEVEL 100 MEQ/L (98-107); CREATININE FOR GFR 0.98 MG/DL (0.55-1.02); GLOMERULAR FILTRATION RATE > 60.0 (>58); GLUCOSE, FASTING 233 MG/DL (70-105); POTASSIUM SERUM 3.7 MEQ/L (3.5-5.1); SODIUM LEVEL 138 MEQ/L (136-145); TOTAL PROTEIN 7.9 GM/DL (6.4-8.2)
[2017-03-04 13:03] LABS: INR 1.07
[2017-03-04 17:45] VITALS: BP 122/82
--- NOTE | 2017-03-05 15:10 | RO ---
DATE OF PROCEDURE: 03/04/2017 PREOPERATIVE DIAGNOSIS: Stage IV wound left foot. POSTOPERATIVE DIAGNOSIS: Stage IV wound left foot. PROCEDURE: Incisional debridement through muscle of left foot. SURGEON: Dr. Yung Guerra SNAKE CHARMER: None. ANESTHESIA: Local MAC. IRRIGATION: Dilute gentamicin solution. HEMOSTASIS: None. DESCRIPTION OF PROCEDURE: On 03/04/2017, this 46-year-old white female was taken from her hospital to the operating room and placed on the operating table in the supine position. Following the induction of IV sedation and local anesthesia, the left lower extremity was prepped and draped in the usual aseptic manner. Attention was directed to the patient's left foot. There was noted to be erythema around the medial and lateral edges and necrotic tissue in the wound. Utilizing a sterile scalpel as well as a rongeur and curette, the incisional debridement was made down to the muscle. This did not extend down to bone. There was no abscess formation. Utilizing a curette, the medial margin of the wound was debrided as well. With good bleeding tissue established, no other necrotic tissue noted in the wound. Aerobic and anaerobic cultures were then obtained. Utilizing a pulse lavage system with dilute gentamicin solution, three liters of irrigation was irrigated through the wound. A saline-moistened gauze dressing was then applied to the patient's left foot. The wound measured 6.1 cm from medial to lateral, 3.8 cm from dorsal to plantar and 0.3 cm in depth. The patient will do partial weightbearing on her left foot. After the culture was obtained, 1 gram of vancomycin was instilled through her IV. The patient will go home on 500 mg of Levaquin. This will be then tailored according to her new culture and sensitivity and will be followed by Dr. Tyler MD. Her questions were answered.
== END | disposition home or self-care (01) ==
LOC: M SDC 11:53
PROVIDERS: ATTEND Podiatrist
DX: L97.423 Non-pressure chronic ulcer of left heel and midfoot with necrosis of muscle (principal); I10 Essential (primary) hypertension; J45.909 Unspecified asthma, uncomplicated; G47.30 Sleep apnea, unspecified; E11.621 Type 2 diabetes mellitus with foot ulcer; E11.42 Type 2 diabetes mellitus with diabetic polyneuropathy; M14.672 Charcot's joint, left ankle and foot; K21.9 Gastro-esophageal reflux disease without esophagitis; D64.9 Anemia, unspecified; K44.9 Diaphragmatic hernia without obstruction or gangrene; M54.2 Cervicalgia; F31.9 Bipolar disorder, unspecified; F41.9 Anxiety disorder, unspecified; M79.7 Fibromyalgia; D68.51 Activated protein C resistance; F42.9 Obsessive-compulsive disorder, unspecified; J30.2 Other seasonal allergic rhinitis; G47.00 Insomnia, unspecified; L40.9 Psoriasis, unspecified; Z79.899 Other long term (current) drug therapy; Z79.01 Long term (current) use of anticoagulants; Z88.0 Allergy status to penicillin; Z88.2 Allergy status to sulfonamides; Z88.1 Allergy status to other antibiotic agents; Z88.8 Allergy status to other drugs, medicaments and biological substances; Z91.018 Allergy to other foods; Z88.5 Allergy status to narcotic agent; Z90.710 Acquired absence of both cervix and uterus; Z86.711 Personal history of pulmonary embolism
CPT/HCPCS: 11403; 36415; 80053; 85025; 85610; 85730; 87070; 87075; 87076; 87077; 87186; 87205; C1713; J1580; J1956; J2250; J2405; J3010; J3370

== ENCOUNTER → 2017-03-10 | Outpatient (POV) | payer OTHER ==
[~2017-03-10] MED LIST changes: -GENTAMICIN SULF INJ 80MG/2ML VIAL (J1580) As Ordered ONE; -LIDOCAINE 2% INJ 100 MG/5 ML SDV (FOR ANES.) As Ordered ONE; -LR 1,000 ML IV ONE; -LevoFLOXacin(LEVAQUIN)500 MG/100 ML BAG (J1956) As Ordered ONE; -MIDAZOLAM INJ 2 MG/2 ML VIAL (J2250) As Ordered ONE; -ONDANSETRON 4MG/2ML VIAL (J2405) As Ordered ONE; -PROPOFOL 200 MG/20 ML VIAL As Ordered ONE; -VANCOMYCIN HCL 1,000 MG, VIAL MATE ADAPTER 1 EACH in D5W 250 ML IV ONE; -fentaNYL 100 MCG/2 ML INJECTION (J3010) As Ordered ONE
== END ==
LOC: M IRPOV 12:55
DX: I87.8 Other specified disorders of veins (principal)

== ENCOUNTER 2017-03-21 13:35 | Inpatient (IN) | payer OTHER ==
[~2017-03-21] VITALS: Ht 177.8 cm; Wt 118.5 kg
[2017-03-21] MEDS ORDERED: ONDANSETRON 4 MG TAB (S0181) PO PRN (14:00)
[2017-03-21] MEDS ORDERED: ACETAMINOPHEN TAB 650MG DOSE (2X325MG) PO PRN (14:00)
[2017-03-21] MEDS ORDERED: GLUCAGON FOR INJ 1 MG VIAL (J1610) SC PRN (14:00)
[2017-03-21] MEDS ORDERED: DEXTROSE 50% 50 ML SYRINGE IV PRN (14:00)
[2017-03-21] MEDS ORDERED: GLUCOSE 4 GM CHEW TABLET PO PRN (14:00)
[2017-03-21 14:30] VITALS: BP 148/73
[2017-03-21] MEDS: NORCO, ANEXSIA 5/325MG TABLET (HYDROcodone/ACETAMINOPHEN) PO PRN ×2 (15:29→20:52)
[2017-03-21 15:51] LABS: ANION GAP 6 MEQ/L (8-16); BLOOD UREA NITROGEN 18 MG/DL (7-18); CARBON DIOXIDE LEVEL 30 MEQ/L (21-32); CHLORIDE LEVEL 100 MEQ/L (98-107); CREATININE FOR GFR 1.04 MG/DL (0.55-1.02); GLOMERULAR FILTRATION RATE > 60.0 (>58); GLUCOSE, FASTING 159 MG/DL (70-105); MAGNESIUM LEVEL 1.6 MG/DL (1.8-2.4); POTASSIUM SERUM 4.1 MEQ/L (3.5-5.1); SODIUM LEVEL 136 MEQ/L (136-145)
[2017-03-21 15:55] LABS: BASO % 0.5 % (0.0-1.0); EOS # 0.2 K/mm3 (0.0-0.50); EOS % 2.3 % (0.0-3.0); LARGE UNSTAINED CELL # 0.2 K/mm3 (0.0-0.4); LARGE UNSTAINED CELL % 2.1 % (0.0-4.0); LYMPH # 1.6 K/mm3 (1.5-4.5); LYMPH % 16.6 % (24.0-44.0); MEAN CORPUSCULAR HEMOGLOBIN 27.5 pg (27.0-33.0); MEAN CORPUSCULAR VOLUME 80.8 fl (80.0-96.0); MONO # 0.5 K/mm3 (0.0-0.8); MONO % 4.7 % (0.0-5.0); NEUTROPHILS # 7.1 K/mm3 (1.8-7.7); NEUTROPHILS % 73.8 % (36.0-66.0); PLATELET COUNT, AUTOMATED 340 k/mm3 (150-450); RED CELL DISTRIBUTION WIDTH 14.9 % (11.5-14.5); WHITE BLOOD COUNT 9.7 K/mm3 (4.0-10.0)
[2017-03-21 16:03] LABS: INR 4.31
[2017-03-21] MEDS: MAG SULF 1GM/100ML (MAG RUN) 1 GM in APPROPRIATE DILUENT 1 EA IV SCH ×2 (17:17→18:38)
[2017-03-21] MEDS: HumaLOG INSULIN (NovoLOG) PER UNIT SC SCH ×2 (17:18→20:53)
[2017-03-21] MEDS ORDERED: WARF-23 PO (17:47)
[2017-03-21] MEDS ORDERED: TOUJ1.2I SC (17:47)
[2017-03-21] MEDS ORDERED: WARF4TAB52 PO (17:49)
[2017-03-21] MEDS ORDERED: HYDR-3719 PO (17:51)
[2017-03-21] MEDS ORDERED: FERR325T PO (17:58)
[2017-03-21] MEDS ORDERED: PHYTONADIONE 5 MG TAB PO ONE (18:00)
[2017-03-21] MEDS ORDERED: ALBUTEROL 90 MCG/ACT 8GM HFA INHALER INH PRN (18:45)
[2017-03-21] MEDS ORDERED: DICYCLOMINE 10 MG CAP PO PRN (18:45)
[2017-03-21] MEDS ORDERED: FUROSEMIDE 40 MG TAB PO PRN (18:45)
[2017-03-21] MEDS ORDERED: NYSTATIN 100,000 UNITS/GM TOPICAL PWD 15 GM TOP PRN (18:45)
[2017-03-21] MEDS ORDERED: LOPERAMIDE 2 MG CAP PO PRN (18:45)
--- NOTE | 2017-03-21 19:22 | HPEPDOC ---
Medical History and Physical Date of Admission Mar 21, 2017 at 14:20 History and Physical HISTORY AND PHYSICAL Date of admission: 03/21/2017 PCP: Dr. Pastrana Chief complaint: Worsening of left foot ulcer HPI: 46-year-old female with multiple medical issues as listed below, as well as recurrent issues involving a left foot diabetic ulcer. She follows with Dr. Guerra and to outpatient. She states that on Tuesday, Dr. Guerra placed a wound VAC on the ulcer, but later that same day, it burst open. She went to his office today for evaluation, and he felt that he needed this debridement, however he would be unable to do it in the office and needed to do it in the OR. Dr. Guerra has asked us to admit the patient so that he can complete the necessary debridements, and so that Dr. Alvarez can see her for further antibiotic management. Of note, the patient woke up approximately 1 week ago to find her dog chewing on her foot, and since then, the wound has seemed to worsen. Past medical history: Diabetes mellitus type 2, hypertension, history of factor V Leiden deficiency and prior DVT, currently on Coumadin, morbid obesity, asthma /COPD, PA, noncompliant with CPAP, diabetic neuropathy, restless leg syndrome, GERD, fibromyalgia, bilateral Charcot foot, lumbar spondylosis with central canal stenosis, bipolar disorder, OCD, Agoraphobia, anxiety, spina bifida occulta, psoriasis, GERD, fatty liver disease, chronic immunodeficiency syndrome Past surgical history: Cholecystectomy, cervical discectomy and fusion, hysterectomy, lumpectomy of the right breast, appendectomy, multiple Port-A-Cath , stool transplant, ulnar release of the right arm and hand 2, multiple diagnostic laparoscopies, bilateral TMJ surgery Family history: Diabetes mellitus type 2, CVA, CAD, hypertension, cancer Social history: The patient does not smoke any tobacco but does use V cigarettes. She denies any alcohol or drug use Allergies: Clindamycin, fenofibrate, latex, metformin, morphine, penicillins, sulfa Review of systems: General: Positive for fevers and chills Eyes: Negative for vision changes or ocular discharge ENT: Negative for sore throat and nose bleed Cardiovascular: Negative for chest pain and palpitations Respiratory: Positive for cough and shortness of breath GI: Negative for nausea, diarrhea, constipation. Positive for vomiting Musculoskeletal: Positive for chronic neck and back pain Skin: Negative for rash Neuro: Positive for headache, dizziness, chronic numbness and tingling in her feet Psych: Negative for depression and suicidal ideation Endocrine: Negative for polyuria : Negative for dysuria Heme: Negative for bleeding Home meds: See below Physical exam: Vital signs: Vital Sign - Last 24 Hours 03/21/17 03/21/17 03/21/17 14:30 15:29 15:59 Temp 97.0 Pulse 112 Resp 20 18 18 B/P (MAP) 148/73 (98) Pulse Ox 99 O2 Delivery Room Air Room Air Room Air Gen.: awake, alert, no acute distress Eyes: Extraocular movements intact, normal sclera ENT: Moist mucous membranes Cardiovascular: RRR, no murmurs rubs or gallops Lungs: clear to auscultation bilaterally, no rales, rhonchi, or wheeze Abdomen: Soft, NT/ND, normal BS Extremities: intact pedal pulses bilat; left heal has open wound about 2.5 inch by 1.5 inch and is foul smelling Neuro: alert and oriented 3, normal speech, no focal deficits Psych: Normal mood with congruent affect Labs and radiology: See below CBC and BMP are unremarkable INR 4.31 Blood cultures are pending Assessment and plan: 46-year-old female with multiple medical issues as listed above, as well as recurrent issues involving a left foot diabetic ulcer. Dr. Guerra has asked us to admit her so that he can perform extensive debridement in the operating room, as well as be seen by Dr. Alvarez for IV antibiotics. 1. Left foot diabetic ulcer: We will consult Dr. Guerra for debridement and Dr. Alvarez for antibiotics. Blood cultures are pending, and we will get wound cultures. 2. Supratherapeutic INR: We will hold the patient's home Coumadin, as well as give her 1 dose of oral vitamin K in hopes that she might be able to go to the OR tomorrow. 3. History of factor V Leiden deficiency with prior DVT: As mentioned above, we' ll be holding her Coumadin and following daily INRs. 4. Diabetes mellitus type 2: The patient will continue her home toujeo, and we will use sliding scale insulin while in-house. 5. Hypomagnesemia: We will replace. 6. Asthma/COPD: We will continue the patient's home albuterol, Symbicort, Singulair. 7. Bipolar disorder, anxiety, OCD, fibromyalgia, restless leg syndrome: Continue home Ativan, Depakote, Cymbalta, Lyrica, Seroquel, Requip, trazodone. 8. Hypertension: Continue home MAXINE inhibitor, chlorthalidone, Lasix, spironolactone. 9. GERD: Continue home H2 calin, Bentyl, PPI, Reglan. DVT prophylaxis: SCDs Dispo: admit as an inpatient to the service of Dr. Rose CODE STATUS: Full code Vital Signs Vital Signs Date Time Temp Pulse Resp B/P (MAP) Pulse Ox O2 Delivery O2 Flow Rate FiO2 03/21/17 15:59 18 Room Air 03/21/17 14:30 97.0 112 148/73 (98) 99 Laboratory Data Labs 24H Laboratory Tests 2 03/21/17 14:58: White Blood Count 9.7, Red Blood Count 3.88L, Hemoglobin 10.7L, Hematocrit 31.3L , Mean Corpuscular Volume 80.8, Mean Corpuscular Hemoglobin 27.5, Mean Corpuscular Hemoglobin Concent 34.0, Red Cell Distribution Width 14.9H, Platelet Count 340, Neutrophils (%) (Auto) 73.8H, Lymphocytes (%) (Auto) 16.6L, Monocytes (%) (Auto) 4.7, Eosinophils (%) (Auto) 2.3, Basophils (%) (Auto) 0.5, Neutrophils # (Auto) 7.1, Lymphocytes # (Auto) 1.6, Monocytes # (Auto) 0.5, Eosinophils # (Auto) 0.2, Basophils # (Auto) 0.0, Large Unclassified Cells % 2.1 , Large Unclassified Cells # 0.2, Prothrombin Time 41.3H, Prothromb Time International Ratio 4.31, Anion Gap 6L, Glomerular Filtration Rate > 60.0, Blood Urea Nitrogen 18, Creatinine 1.04H, Sodium Level 136, Potassium Level 4.1 , Chloride Level 100, Carbon Dioxide Level 30, Calcium Level 9.0, Magnesium Level 1.6L 03/21/17 16:48: Bedside Glucose (Misc Panel) 257H CBC/BMP Laboratory Tests 03/21/17 14:58 Red Blood Count 3.88 L, Mean Corpuscular Volume 80.8, Mean Corpuscular Hemoglobin 27.5, Mean Corpuscular Hemoglobin Concent 34.0, Red Cell Distribution Width 14.9 H, Neutrophils (%) (Auto) 73.8 H, Lymphocytes (%) (Auto ) 16.6 L, Monocytes (%) (Auto) 4.7, Eosinophils (%) (Auto) 2.3, Basophils (%) ( Auto) 0.5, Neutrophils # (Auto) 7.1, Lymphocytes # (Auto) 1.6, Monocytes # (Auto ) 0.5, Eosinophils # (Auto) 0.2, Basophils # (Auto) 0.0, Calcium Level 9.0 Microbiology Microbiology 03/21/17 Blood Culture, Received Pending 03/21/17 Blood Culture, Received Pending 03/21/17 Gram Stain, Received Pending 03/21/17 Wound Culture, Received Pending Home Medications Scheduled (Humalog Kwikpen) 200 Unit/Ml Inj, 0 SC AC PER SLIDING SCALE (Toujeo Solostar) 300 Unit/Ml Inj, 100 UNIT SC QHS (Toujeo Solostar) 300 Unit/Ml Inj, 145 UNIT SC QAM Benazepril HCl (Benazepril HCl) 40 Mg Tab, 40 MG PO DAILY Budesonide/Formoterol (Symbicort 160-4.5 Mcg/Act) 60 Puff/Inhaler Aers, 2 PUFF INH BID Chlorthalidone (Chlorthalidone) 12.5 Mg Halftab, 12.5 MG PO DAILY Divalproex Sodium (Depakote) 250 Mg Tab, 250 MG PO BID Docusate Sodium (Colace) 100 Mg Cap, 100 MG PO DAILY Duloxetine Hcl (Duloxetine HCl) 60 Mg Cap, 60 MG PO QAM Duloxetine Hcl (Duloxetine HCl) 30 Mg Cap, 30 MG PO QHS Eszopiclone (Eszopiclone) 3 Mg Tab, 3 MG PO QHS Ferrous Sulfate (Ferrous Sulfate) 325 Mg Tab, 325 MG PO DAILY Lifitegrast (Xiidra) 5 % Fermín, 1 DROP OU BID Metoclopramide Hcl (Reglan) 5 Mg Tab, 5 MG PO TID with meals Montelukast Sodium (Montelukast Sodium) 10 Mg Tab, 10 MG PO QHS Omeprazole (Omeprazole) 40 Mg Cap, 40 MG PO BID Pregabalin (Lyrica) 300 Mg Cap, 300 MG PO BID Quetiapine Fumarate (Seroquel) 300 Mg Tab, 600 MG PO QHS Ranitidine Hcl (Zantac) 150 Mg Tab, 1 TAB PO QHS Ropinirole Hydrochloride (Ropinirole HCl) 4 Mg Tab, 4 MG PO QHS Spironolactone (Spironolactone) 25 Mg Tab, 25 MG PO QHS Trazodone HCl (Trazodone HCl) 100 Mg Tab, 100 MG PO QHS Warfarin Sod (Warfarin Sodium) 5 Mg Tab, 5 MG PO ASDIRECTED 2xW - Tues, Thurs Warfarin Sod (Warfarin Sodium) 1 Mg Tab, 1 MG PO ASDIRECTED 5xW - Mon, Wed, Fri, Sat, Sun Yeast (S. Boulardii)(S. Cerevi (Probiotic) 250 Mg Cap, 250 MG PO DAILY Scheduled PRN (Epipen 2-Thomas) 0.3 Mg/0.3 Ml Inj, 0.3 MG SC PRN PRN for ALLERGIC REACTION Acetaminophen/Hydrocodone (Hydrocodone/Acetaminophen 10-325 mg) 1 Tab Tab, 1 TAB PO Q4H PRN for PAIN Albuterol Sulfate (Ventolin Hfa) 200 Puff/8 Gm Aers, 2 PUFF INH Q4H PRN for WHEEZING Alprazolam (Alprazolam) 1 Mg Tab, 1 MG PO QID PRN for ANXIETY Dicyclomine HCl (Dicyclomine HCl) 10 Mg Cap, 10 MG PO TID PRN for abdominal cramps Furosemide (Furosemide) 40 Mg Tab, 40 MG PO BID PRN for EDEMA Loperamide HCl (Loperamide HCl) 2 Mg Tab, 2 MG PO Q4H PRN for DIARRHEA Nystatin (Nystatin Powder) 100,000 Unit/Gm Pow, 1 DOSE TOP TID PRN for RASH UNDER BREASTS, ABDOMINAL FOLD Allergies Coded Allergies: Latex (Verified Allergy, Severe, ANAPHYLAXSIS, 03/04/17) Penicillins (Verified Allergy, Severe, ANAPHYLAXIS; CEPHALOSPORINS OK, ) PATIENT ADMITS SHE HAS TAKEN ROCEPHIN SEVERAL TIMES IN THE PAST w/o PROBLEM WELL MEROPENEM Fenofibrate (Verified Allergy, Intermediate, RASH, 03/04/17) Metformin (Verified Allergy, Intermediate, RASH, 03/04/17) Sulfa Drugs (Verified Allergy, Intermediate, HIVES, 03/04/17) Morphine (Verified Allergy, Mild, RASH, 03/04/17) Clindamycin (Unverified Allergy, Unknown, RASH/MOUTH SORES BURNING OF SKIN , 09/07/14) [place] MELGAR Mar 21, 2017 19:22
[2017-03-21] MEDS: PREGABALIN 100 MG CAP (LYRICA) PO SCH (20:50)
[2017-03-21] MEDS: METOCLOPRAMIDE 5 MG TAB PO SCH (20:50)
[2017-03-21] MEDS: rOPINIRole 1MG TAB PO SCH (20:50)
[2017-03-21] MEDS: QUEtiapine FUMARATE 200 MG TAB PO SCH (20:50)
[2017-03-21] MEDS: MONTELUKAST 10 MG TAB PO SCH (20:51)
[2017-03-21] MEDS: FAMOTIDINE 20 MG TAB PO SCH (20:51)
[2017-03-21] MEDS: OMEPRAZOLE 20 MG CAP PO SCH (20:51)
[2017-03-21] MEDS: ALPRAZolam 0.5 MG TAB PO PRN (20:51)
[2017-03-21] MEDS: DULoxetine 30 MG CAP (CYMBALTA) PO SCH (20:51)
[2017-03-21] MEDS: SPIRONOLACTONE 25 MG TAB PO SCH (20:52)
[2017-03-21] MEDS: traZODone 100 MG TAB PO SCH (20:52)
[2017-03-21] MEDS: DIVALPROEX 250 MG TAB PO SCH (20:52)
[2017-03-21] MEDS: TOUJEO (PATIENT'S OWN MED) SC SCH (20:53)
[2017-03-21] MEDS: SYMBICORT 160/4.5MCG INHALER 6GM INH SCH (21:00)
[2017-03-21 22:00] VITALS: BP 126/79
[2017-03-22] MEDS ORDERED: ERTAPENEM SODIUM 1 GM in NS MINI-BAG PLUS 50 ML IV SCH ×2
[2017-03-22] MEDS: NORCO, ANEXSIA 5/325MG TABLET (HYDROcodone/ACETAMINOPHEN) PO PRN ×4 (04:36→19:42)
[2017-03-22 06:00] VITALS: BP 151/74
[2017-03-22 06:34] LABS: BASO % 0.2 % (0.0-1.0); EOS # 0.2 K/mm3 (0.0-0.50); EOS % 3.5 % (0.0-3.0); LARGE UNSTAINED CELL # 0.1 K/mm3 (0.0-0.4); LARGE UNSTAINED CELL % 1.4 % (0.0-4.0); LYMPH # 1.1 K/mm3 (1.5-4.5); LYMPH % 18.1 % (24.0-44.0); MEAN CORPUSCULAR HEMOGLOBIN 27.3 pg (27.0-33.0); MEAN CORPUSCULAR HGB CONC 33.6 g/dl (32.0-36.5); MEAN CORPUSCULAR VOLUME 81.4 fl (80.0-96.0); MONO # 0.3 K/mm3 (0.0-0.8); MONO % 5.2 % (0.0-5.0); NEUTROPHILS # 4.1 K/mm3 (1.8-7.7); NEUTROPHILS % 71.6 % (36.0-66.0); RED CELL DISTRIBUTION WIDTH 15.3 % (11.5-14.5); WHITE BLOOD COUNT 5.7 K/mm3 (4.0-10.0)
[2017-03-22 06:46] LABS: PLATELET COUNT, AUTOMATED 237 k/mm3 (150-450)
[2017-03-22 06:49] LABS: INR 3.54
[2017-03-22 06:50] LABS: ALBUMIN 2.2 GM/DL (3.2-5.2); ALBUMIN/GLOBULIN RATIO 0.44 (1.00-1.93); BILIRUBIN,TOTAL 0.2 MG/DL (0.2-1.0); CALCIUM LEVEL 8.2 MG/DL (8.5-10.1); CREATININE FOR GFR 1.16 MG/DL (0.55-1.02); GLOMERULAR FILTRATION RATE 53.3 (>58); MAGNESIUM LEVEL 2.1 MG/DL (1.8-2.4); POTASSIUM SERUM 4.1 MEQ/L (3.5-5.1); TOTAL PROTEIN 7.2 GM/DL (6.4-8.2)
[2017-03-22] MEDS: SYMBICORT 160/4.5MCG INHALER 6GM INH SCH ×2 (07:29→21:52)
[2017-03-22] MEDS ORDERED: PHYTONADIONE 5 MG TAB PO ONE ×4 (08:45→16:00)
[2017-03-22] MEDS: DOCUSATE SODIUM 100 MG CAP PO SCH (08:47)
[2017-03-22] MEDS: DIVALPROEX 250 MG TAB PO SCH ×2 (08:47→22:12)
[2017-03-22] MEDS: HumaLOG INSULIN (NovoLOG) PER UNIT SC SCH ×4 (08:47→21:00)
[2017-03-22] MEDS: FERROUS SULFATE 325MG TAB PO SCH (08:47)
[2017-03-22] MEDS: BENAZEPRIL 20 MG TAB PO SCH (08:48)
[2017-03-22] MEDS: METOCLOPRAMIDE 5 MG TAB PO SCH ×3 (08:48→22:13)
[2017-03-22] MEDS: DULoxetine 30 MG CAP (CYMBALTA) PO SCH ×2 (08:48→22:12)
[2017-03-22] MEDS: CHLORTHALIDONE 12.5MG PER 1/2 TABLET PO SCH (08:49)
[2017-03-22] MEDS: PREGABALIN 100 MG CAP (LYRICA) PO SCH ×2 (08:49→21:00)
[2017-03-22] MEDS: OMEPRAZOLE 20 MG CAP PO SCH ×2 (08:49→22:12)
[2017-03-22] MEDS: TOUJEO (PATIENT'S OWN MED) SC SCH ×2 (08:50→22:13)
--- NOTE | 2017-03-22 08:59 | IPNPDOC ---
Subjective Date Seen The patient was seen on 03/22/17. Subjective Chief Complaint/HPI The patient is a 46-year-old female admitted with a reason for visit of Ulcer Left Arche. Events since last encounter Admitted for worsening infection and necessary debridement of LLE by Dr. Guerra. INR elevated given Vitamin K 2.5 mg po x 1. I NR came down to 3.5 from 4.1. WILl give another dose today and repeat in anticipation for debridement this afternoon. Constitutional: Denies: Chills, Fever, Night Sweats Pulmonary: Denies: Dyspnea, Cough Gastrointestinal: Denies: Nausea, Vomiting, Abdominal Pain, Diarrhea, Constipation Genitourinary: Denies: Dysuria, Frequency, Incontinence, Retention Objective Physical Examination General Exam: Positive: Alert, No Acute Distress Eye Exam: Positive: PERRLA, Conjunctiva & lids normal, EOMI, Negative: Sclera icteric Neck Exam: Positive: Supple, Negative: JVD, thyromegaly Chest Exam: Positive: Clear to auscultation, Normal air movement Heart Exam: Positive: Rate Normal, Regular Rhythm, Normal S1, Normal S2, Negative: Murmurs, Rubs Abdomen Exam: Positive: Normal bowel sounds, Soft, Negative: Tenderness, Hepatospenomegaly Psych Exam: Positive: Mental status NL, Mood NL, Oriented x 3 Assessment /Plan Problems (1) Diabetes mellitus out of control Status: Chronic Problem Specific Plan: Monitor Clinically Problem Text: home dosing of Toujeo. RISS per protocol ordered. Monitor FS q 6 hrs while patient is NPO. (2) Osteomyelitis of left foot Status: Acute Problem Text: On Ertapenem IV. Dr. Scott ID consulted. (3) Left foot pain Status: Chronic (4) Anxiety Status: Chronic Problem Specific Plan: Monitor Clinically (5) Depression Status: Chronic Problem Specific Plan: Monitor Clinically (6) HTN (hypertension) Status: Chronic Response to Treatment: Stable Problem Specific Plan: Monitor Clinically (7) CKD (chronic kidney disease) Status: Chronic Response to Treatment: Stable Problem Specific Plan: Monitor Clinically Problem Text: Cr. 1.16, mildly elevated today, monitor. (8) Recurrent deep vein thrombosis (DVT) Status: Chronic Problem Text: Anticoagulants on hold for pending surgery. (9) Factor 5 Leiden mutation, heterozygous Status: Chronic (10) Chronic foot ulcer Status: Chronic Problem Specific Plan: Consult Specialist Problem Text: Planned debridement with Dr. Guerra today. Plan/VTE VTE Prophylaxis Ordered?: No VTE Exclusion Mechanical Proph: Other (planned surgery) Plan Attending attestation: I saw and evaluated the patient, and agree with the plan of care as discussed and documented by Loren Hernandez. Patient's INR still not at goal after vitamin K. Patient given a repeat dose of vitamin K 5 mg. If not at goal after this, we will proceed with FFP. Hal Acevedo MD VS, I&O, 24H, [facility] Vital Signs/I&O Vital Signs Date Time Temp Pulse Resp B/P (MAP) Pulse Ox O2 Delivery O2 Flow Rate FiO2 03/22/17 08:51 18 Room Air 03/22/17 08:48 151/74 03/22/17 06:00 96.8 78 95 I&O- Last 24 Hours up to 6 AM 03/22/17 06:00 Intake Total 360 ml Output Total 250 ml Balance 110 ml Laboratory Data 24H LABS Laboratory Tests 2 03/21/17 14:58: White Blood Count 9.7, Red Blood Count 3.88L, Hemoglobin 10.7L, Hematocrit 31.3L , Mean Corpuscular Volume 80.8, Mean Corpuscular Hemoglobin 27.5, Mean Corpuscular Hemoglobin Concent 34.0, Red Cell Distribution Width 14.9H, Platelet Count 340, Neutrophils (%) (Auto) 73.8H, Lymphocytes (%) (Auto) 16.6L, Monocytes (%) (Auto) 4.7, Eosinophils (%) (Auto) 2.3, Basophils (%) (Auto) 0.5, Neutrophils # (Auto) 7.1, Lymphocytes # (Auto) 1.6, Monocytes # (Auto) 0.5, Eosinophils # (Auto) 0.2, Basophils # (Auto) 0.0, Large Unclassified Cells % 2.1 , Large Unclassified Cells # 0.2, Prothrombin Time 41.3H, Prothromb Time International Ratio 4.31, Anion Gap 6L, Glomerular Filtration Rate > 60.0, Blood Urea Nitrogen 18, Creatinine 1.04H, Sodium Level 136, Potassium Level 4.1 , Chloride Level 100, Carbon Dioxide Level 30, Calcium Level 9.0, Magnesium Level 1.6L, C-Reactive Protein, Quantitative 8.21H 03/21/17 16:48: Bedside Glucose (Misc Panel) 257H 03/21/17 20:36: Bedside Glucose (Misc Panel) 305H 03/22/17 06:15: White Blood Count 5.7, Red Blood Count 3.33L, Hemoglobin 9.1L, Hematocrit 27.1L , Mean Corpuscular Volume 81.4, Mean Corpuscular Hemoglobin 27.3, Mean Corpuscular Hemoglobin Concent 33.6, Red Cell Distribution Width 15.3H, Platelet Count 237#, Neutrophils (%) (Auto) 71.6H, Lymphocytes (%) (Auto) 18.1L , Monocytes (%) (Auto) 5.2H, Eosinophils (%) (Auto) 3.5H, Basophils (%) (Auto) 0.2, Neutrophils # (Auto) 4.1, Lymphocytes # (Auto) 1.1L, Monocytes # (Auto) 0.3 , Eosinophils # (Auto) 0.2, Basophils # (Auto) 0.0, Large Unclassified Cells % 1.4, Large Unclassified Cells # 0.1, Prothrombin Time 35.4H, Prothromb Time International Ratio 3.54, Anion Gap 9, Glomerular Filtration Rate 53.3L, Blood Urea Nitrogen 22H, Creatinine 1.16H, Sodium Level 134L, Potassium Level 4.1, Chloride Level 98, Carbon Dioxide Level 27, Calcium Level 8.2L, Magnesium Level 2.1, Aspartate Amino Transf (AST/SGOT) 12L, Alanine Aminotransferase (ALT/SGPT) 14, Alkaline Phosphatase 125H, Total Bilirubin 0.2, Total Protein 7.2, Albumin 2.2L, Albumin/Globulin Ratio 0.44L CBC/BMP Laboratory Tests 03/21/17 14:58 Red Blood Count 3.88 L, Mean Corpuscular Volume 80.8, Mean Corpuscular Hemoglobin 27.5, Mean Corpuscular Hemoglobin Concent 34.0, Red Cell Distribution Width 14.9 H, Neutrophils (%) (Auto) 73.8 H, Lymphocytes (%) (Auto ) 16.6 L, Monocytes (%) (Auto) 4.7, Eosinophils (%) (Auto) 2.3, Basophils (%) ( Auto) 0.5, Neutrophils # (Auto) 7.1, Lymphocytes # (Auto) 1.6, Monocytes # (Auto ) 0.5, Eosinophils # (Auto) 0.2, Basophils # (Auto) 0.0, Calcium Level 9.0 03/22/17 06:15 Red Blood Count 3.33 L, Mean Corpuscular Volume 81.4, Mean Corpuscular Hemoglobin 27.3, Mean Corpuscular Hemoglobin Concent 33.6, Red Cell Distribution Width 15.3 H, Neutrophils (%) (Auto) 71.6 H, Lymphocytes (%) (Auto ) 18.1 L, Monocytes (%) (Auto) 5.2 H, Eosinophils (%) (Auto) 3.5 H, Basophils (% ) (Auto) 0.2, Neutrophils # (Auto) 4.1, Lymphocytes # (Auto) 1.1 L, Monocytes # (Auto) 0.3, Eosinophils # (Auto) 0.2, Basophils # (Auto) 0.0, Calcium Level 8.2 L, Aspartate Amino Transf (AST/SGOT) 12 L, Alanine Aminotransferase (ALT/SGPT) 14, Alkaline Phosphatase 125 H, Total Bilirubin 0.2, Total Protein 7.2, Albumin 2.2 L Microbiology Microbiology 03/21/17 Blood Culture, Received Pending 03/21/17 Blood Culture, Received Pending 03/21/17 Gram Stain, Received Pending 03/21/17 Wound Culture, Received Pending Laxmi Hernandez Mar 22, 2017 08:59 HAL ACEVEDO MD Mar 22, 2017 18:11
[2017-03-22 11:00] LABS: INR 3.04
[2017-03-22] MEDS: ALPRAZolam 0.5 MG TAB PO PRN (12:00)
[2017-03-22] MEDS ORDERED: HumaLOG INSULIN (NovoLOG) PER UNIT SC STA (12:18)
[2017-03-22 12:52] LABS: INR 3.27
[2017-03-22 14:00] VITALS: BP 127/63
[2017-03-22] MEDS ORDERED: HumaLOG INSULIN (NovoLOG) PER UNIT SC ONE (14:15)
[2017-03-22 14:34] LABS: INR 3.14
--- NOTE | 2017-03-22 15:12 | IPN ---
DATE: 03/22/2017 Rebeca GOING to the operating room today for an incision and drainage \ after she received some vitamin K. She is doing fairly well. She has had no fever or chills. PHYSICAL EXAMINATION: Temperature is 97.7, pulse 95, respirations 18, blood pressure 126/79, oxygen saturation 96% on room air. Heart: Normal S1, S2. No murmurs. Lungs are clear. No wheezes, rales or rhonchi. Abdomen: Morbidly obese, soft, nontender. Extremities: Trace edema left ankle with the ulcer, did not examine the wound today as ishe is going to OR, purulent DC on dressing LABORATORY DATA: White count is 5.7, hemoglobin 9.1, hematocrit 27.1, platelets 237, 71% neutrophils, 18% lymphocytes. Sodium 134, potassium 4.1, chloride 98, bicarbonate 27, BUN 22, creatinine 1.1, glucose 342, CRP yesterday was 8.21. IMPRESSION: Diabetic foot ulcer with polymicrobial infection. The patient did not have osteomyelitis on the MRI done on 01/17/2017. There is currently no exposed bone either so I doubt she has osteomyelitis. PLAN: Will continue with IV Invanz until cultures are available. This foot has previously grown and Group B Streptococcus MSSA and anaerobes mostly. That should all be covered with Invanz. The patient has multiple drug allergies involving PENICILLIN, CEPHALOSPORIN and SULFA. Debridement today MTDD
--- NOTE | 2017-03-22 15:26 | CR ---
DATE OF CONSULTATION: 03/21/2017 Asked to consult by Dr. Flores and Dr. Guerra for worsening left foot diabetic foot infection. HISTORY OF PRESENT ILLNESS: Rebeca is a 46-year-old morbidly obese female with insulin dependent diabetes poorly controlled and left foot diabetic foot ulcer with a neuropathic foot that has been open for over a year. She follows up on a regular basis with Dr. Guerra and on 03/04/2017, he did a debridement of the foot and cultures were sent. The cultures were positive for group B Streptococcus, Enterococcus faecalis, MSSA, anaerobic cocci and actinomyces. He treated her with that one dose of IV vancomycin perioperatively then sent her home on Levaquin. The patient has been on Levaquin for the past 2 weeks. She came to our office last week for PT monitoring and told Marguerite Hernandez, the nurse practitioner, that her dog had chewed on her foot. She had for the past 3 days fever and chills. She states her temperature was up to 101 and she had a foul-smelling drainage from the foot. She saw Dr. Guerra who recommended admission to the hospital for debridement. She had a port that had been just removed on 03/10/2017, because she has very poor IV access. PAST MEDICAL HISTORY: Diabetes type 2, hypertension, Factor V Leiden deficiency, prior DVT, morbid obesity, asthma, COPD, obstructive sleep apnea, noncompliant with CPAP, diabetic neuropathy with Charcot arthropathy of the left foot, restless leg syndrome, gastroesophageal reflux disease, fibromyalgia, lumbar spondylosis with spinal stenosis, bipolar disorder, obsessive-compulsive disorder, spina bifida occulta, psoriasis, gastroesophageal reflux disease, fatty liver, mild hypogammaglobulinemia. PAST SURGICAL HISTORY: Cholecystectomy, cervical discectomy and fusion, hysterectomy, lumpectomy of the right breast, appendectomy, multiple Port-A-Cath infections, Clostridium (C) difficile with stool transplantation, ulnar release of the right elbow and right carpal tunnel surgery done in February 2017. FAMILY HISTORY: Diabetes, heart disease and hypertension. SOCIAL HISTORY: She is . She lives with her . She does not have kids. She does not smoke. She has a caregiver, a female who takes care of her multiple medical problems and drives her around. ALLERGIES: CLINDAMYCIN, FENOFIBRATE, LATEX, METFORMIN, MORPHINE, PENICILLIN and SULFA, CEPHALOSPORINS. She tolerates carbapenems. REVIEW OF SYSTEMS: She had fever and chills for 3 days prior to admission. No headache. No nausea, vomiting or diarrhea. She has a cough mostly at night. She has chronic neck pain and low back pain, chronic neuropathy and numbness of both feet. She has a history of depression and is on multiple medications. She follows up with Dr. Godwin. MEDICATIONS: - benazepril 40 mg daily - chlorthalidone 12.5 mg daily - Colace 100 mg daily - Cymbalta 60 mg by mouth daily - ferrous sulfate 325 mg daily - Toujeo 125 units daily - Humalog sliding scale - Symbicort two puffs inhaled twice a day - Depakote 250 mg by mouth twice a day - Cymbalta 30 mg by mouth nightly - Reglan 5 mg by mouth three times a day - Singulair 10 mg by mouth nightly - omeprazole 40 mg by mouth twice a day - Lyrica 300 mg by mouth twice a day - Seroquel 600 mg by mouth nightly - Pepcid 20 mg by mouth nightly - Requip 4 mg by mouth nightly - Aldactone 25 mg by mouth nightly - trazodone 100 mg by mouth nightly - albuterol inhaler as needed - Xanax 1 mg four times a day as needed - Bentyl 10 mg by mouth three times a day as needed for abdominal cramps - nystatin as needed - Percocet two tablets by mouth every 4 hours as needed - Zofran as needed LABORATORY DATA: White count on admission was 9.7, hemoglobin 10.7, hematocrit 31.3, platelets 340, 73% neutrophils, 16% lymphocytes, 5% monocytes. Sodium 136, potassium 4.1, chloride 100, bicarbonate 30, BUN 18, creatinine 1, glucose 159, calcium 9, magnesium 1.6, CRP 8.21. PT 33.3, INR 3.27. Blood cultures 03/21/2017, are pending. Wound culture from 03/21/2017, had moderate gram positive cocci in pairs, chains and clusters. PHYSICAL EXAMINATION: This consultation was done at 3 p.m. on 03/21/2017. Temperature is 97, pulse 112, respirations 20, blood pressure 143/73, oxygen saturation 99% on room air. General appearance: Healthy looking obese female in no acute distress. Heart: Normal S1, S2. No murmurs, rubs or gallops. Lungs are clear. No wheezes, rales or rhonchi. Abdomen: Morbidly obese, soft, nontender. Breasts: Very large. Back: Mild lumbosacral tenderness and cervical tenderness. Extremities: +1 pitting edema bilaterally. She has multiple tattoos. Left foot has an open ulcer measuring about 6 x 5 cm with foul-smelling drainage and necrotic tissue. There is surrounding erythema extending medially to the ankle. Left foot has amputation of the fifth toe healed. IMPRESSION: This is a 46-year-old female with a history of poorly controlled insulin-dependent diabetes, morbid obesity who had been followed up by Dr. Guerra regularly, had debridement done 03/04/2017, and weekly debridement, a wound vacuum assisted closure (VAC) was recently placed 3 days prior to admission, the patient is admitted with fever and worsening infection with foul-smelling drainage. The patient went to the OR for debridement. She was started on IV Invanz. Previous cultures have been most predominately MSSA, group B Streptococcus, and anaerobes. The patient has not had MRSA in that wound. She had received Levaquin for over 2 weeks and probably has resistant pathogens. PLAN: Will start IV Invanz 1 gram daily. Monitor CBC and CRP. The patient going for debridement. The patient had an MRI done a couple months ago which was negative for osteomyelitis and there is no exposed bone. I doubt the patient has osteomyelitis. Will discuss the case with Dr. Guerra. LAURIE
[2017-03-22] MEDS ORDERED: BUPIVACAINE HCL 0.5% 10 ML VIAL As Ordered ONE (17:16)
[2017-03-22] MEDS ORDERED: VANCOMYCIN 1000 MG/20 ML VIAL (J3370) As Ordered ONE (17:16)
[2017-03-22] MEDS ORDERED: LIDOCAINE 2% MDV 20 ML VIAL As Ordered ONE (17:16)
[2017-03-22] MEDS ORDERED: PROPOFOL 200 MG/20 ML VIAL As Ordered ONE (17:51)
[2017-03-22] MEDS ORDERED: fentaNYL 100 MCG/2 ML INJECTION (J3010) As Ordered ONE ×2 (17:51→20:12)
[2017-03-22] MEDS ORDERED: LIDOCAINE 2% INJ 100 MG/5 ML SDV (FOR ANES.) As Ordered ONE (17:51)
[2017-03-22] MEDS ORDERED: MIDAZOLAM INJ 2 MG/2 ML VIAL (J2250) As Ordered ONE (17:51)
[2017-03-22] MEDS ORDERED: NORCO, ANEXSIA 5/325MG TABLET (HYDROcodone/ACETAMINOPHEN) As Ordered ONE (19:36)
[2017-03-22] MEDS ORDERED: LR 1,000 ML IV SCH (19:45)
[2017-03-22] MEDS ORDERED: ONDANSETRON 4MG/2ML VIAL (J2405) IV PRN (19:45)
[2017-03-22] MEDS ORDERED: NORCO, ANEXSIA 5/325MG TABLET (HYDROcodone/ACETAMINOPHEN) PO PRN (19:45)
[2017-03-22] MEDS ORDERED: PREGABALIN 100 MG CAP (LYRICA) PO ONE (20:00)
[2017-03-22] MEDS ORDERED: PREGABALIN 100 MG CAP (LYRICA) As Ordered ONE (20:06)
[2017-03-22] MEDS: fentaNYL 100 MCG/2 ML INJECTION (J3010) IV PRN ×4 (20:20→20:45)
[2017-03-22] MEDS: SPIRONOLACTONE 25 MG TAB PO SCH (21:00)
[2017-03-22 21:15] VITALS: BP 134/89
[2017-03-22 21:45] VITALS: BP 144/70
[2017-03-22] MEDS: ERTAPENEM SODIUM 1 GM in NS MINI-BAG PLUS 50 ML IV SCH (22:11)
[2017-03-22] MEDS: MONTELUKAST 10 MG TAB PO SCH (22:12)
[2017-03-22] MEDS: QUEtiapine FUMARATE 200 MG TAB PO SCH (22:12)
[2017-03-22] MEDS: FAMOTIDINE 20 MG TAB PO SCH (22:13)
[2017-03-22 22:15] VITALS: BP 135/87
[2017-03-22] MEDS: rOPINIRole 1MG TAB PO SCH (22:18)
[2017-03-22] MEDS: traZODone 100 MG TAB PO SCH (22:19)
[2017-03-22 23:15] VITALS: BP 126/64
[2017-03-22] MEDS: WARFARIN SOD 5 MG TAB PO SCH (23:23)
[2017-03-23] VITALS (8 sets, daily range): BP systolic 105–164; BP diastolic 59–82
[2017-03-23] MEDS: NORCO, ANEXSIA 5/325MG TABLET (HYDROcodone/ACETAMINOPHEN) PO PRN ×5 (03:11→22:11)
--- NOTE | 2017-03-23 06:13 | RO ---
DATE OF PROCEDURE: 03/22/2017 PREPROCEDURE DIAGNOSES: Stage IV ulceration plantar aspect left foot. POSTPROCEDURE DIAGNOSES: Stage IV ulceration plantar aspect left foot. PROCEDURE: Incisional debridement true fascia left foot with application of wound Vac. SURGEON: Dr. Yung Guerra DPM TERRITORY REPRESENTATIVE: None. ANESTHESIA: local MAC IRRIGATION: Vancomycin solution 3 liters, low pressure pulse lavage system. HEMOSTASIS: None. ESTIMATED BLOOD LOSS: 30 mL. DESCRIPTION OF OPERATION: On 03/22/2017, this 46-year-old white female was taken from her hospital room to the operating room and placed on the operating room table in the supine position. Following the induction of IV sedation and local anesthesia, the left lower extremity was prepped and draped in the usual aseptic manner. Attention was directed to the left lower extremity where there was noted to be an ulceration on the plantar midfoot of the left foot. Utilizing a sharp curette, debridement was carried down through the fascia. There was slightly increased depth noted on the more lateral side of the foot, however, this did not penetrate the bone. The hyperkeratotic rim was debrided with a sterile scalpel. Wound measurements post debridement measure 6.6 cm from medial to lateral, 4.5 cm from distal to proximal and 0.4 cm in depth with a 1.2 cm hyperkeratotic rim. Utilizing a low pressure pulse lavage system, 3 liters of dilute vancomycin was instilled through the wound. Utilizing a black foam gauge dressing with sterile draping with a dorsal bridge constructed on the dorsal aspect of the foot, a wound Vac was applied with black foam, pressure setting of 100 medium intensity, continuous pressure was inflated. The Vac was operating satisfactorily. No leaks were detected. The patient having apparently tolerated the surgical procedure well was taken from the operating room (OR) to the recovery room with vital signs stable. Aerobic and anaerobic cultures were obtained immediately post surgically after debridement before irrigation with vancomycin solution. Patient's antibiotics will be tailored according to her culture and sensitivity. LAURIE
[2017-03-23 06:52] LABS: BASO % 0.5 % (0.0-1.0); EOS # 0.2 K/mm3 (0.0-0.50); EOS % 4.2 % (0.0-3.0); LARGE UNSTAINED CELL # 0.1 K/mm3 (0.0-0.4); LARGE UNSTAINED CELL % 2.1 % (0.0-4.0); LYMPH # 1.1 K/mm3 (1.5-4.5); LYMPH % 28.2 % (24.0-44.0); MEAN CORPUSCULAR HEMOGLOBIN 26.2 pg (27.0-33.0); MEAN CORPUSCULAR HGB CONC 31.9 g/dl (32.0-36.5); MEAN CORPUSCULAR VOLUME 82.3 fl (80.0-96.0); MONO # 0.2 K/mm3 (0.0-0.8); MONO % 5.6 % (0.0-5.0); NEUTROPHILS # 2.2 K/mm3 (1.8-7.7); NEUTROPHILS % 59.5 % (36.0-66.0); PLATELET COUNT, AUTOMATED 252 k/mm3 (150-450); RED CELL DISTRIBUTION WIDTH 15.2 % (11.5-14.5); WHITE BLOOD COUNT 3.7 K/mm3 (4.0-10.0)
[2017-03-23 06:54] LABS: INR 1.53
[2017-03-23 07:14] LABS: ALBUMIN 2.1 GM/DL (3.2-5.2); ALBUMIN/GLOBULIN RATIO 0.45 (1.00-1.93); BILIRUBIN,TOTAL 0.2 MG/DL (0.2-1.0); CALCIUM LEVEL 7.9 MG/DL (8.5-10.1); CREATININE FOR GFR 1.39 MG/DL (0.55-1.02); GLOMERULAR FILTRATION RATE 43.3 (>58); POTASSIUM SERUM 4.5 MEQ/L (3.5-5.1); TOTAL PROTEIN 6.8 GM/DL (6.4-8.2)
[2017-03-23] MEDS: SYMBICORT 160/4.5MCG INHALER 6GM INH SCH ×2 (08:00→19:42)
[2017-03-23] MEDS: HumaLOG INSULIN (NovoLOG) PER UNIT SC SCH ×4 (08:25→21:03)
[2017-03-23] MEDS: DOCUSATE SODIUM 100 MG CAP PO SCH (08:26)
[2017-03-23] MEDS: PREGABALIN 100 MG CAP (LYRICA) PO SCH ×2 (08:26→21:01)
[2017-03-23] MEDS: BENAZEPRIL 20 MG TAB PO SCH (08:26)
[2017-03-23] MEDS: OMEPRAZOLE 20 MG CAP PO SCH ×2 (08:26→21:02)
[2017-03-23] MEDS: DULoxetine 30 MG CAP (CYMBALTA) PO SCH ×2 (08:27→21:02)
[2017-03-23] MEDS: DIVALPROEX 250 MG TAB PO SCH ×2 (08:27→21:02)
[2017-03-23] MEDS: FERROUS SULFATE 325MG TAB PO SCH (08:27)
[2017-03-23] MEDS: METOCLOPRAMIDE 5 MG TAB PO SCH ×3 (08:27→21:01)
[2017-03-23] MEDS: CHLORTHALIDONE 12.5MG PER 1/2 TABLET PO SCH (08:27)
[2017-03-23] MEDS: TOUJEO (PATIENT'S OWN MED) SC SCH ×2 (08:28→21:08)
--- NOTE | 2017-03-23 10:07 | IPNPDOC ---
Subjective Date Seen The patient was seen on 03/23/17. Subjective Chief Complaint/HPI The patient is a 46-year-old female admitted with a reason for visit of Ulcer Left Arche. Events since last encounter Pt denies any new issues. Denies CP, SOB, Abd pain, fevers. Constitutional: Denies: Chills, Fever Pulmonary: Denies: Dyspnea Cardiovascular: Denies: Chest Pain, Palpitations Gastrointestinal: Denies: Nausea, Vomiting, Abdominal Pain Objective Physical Examination General Exam: Positive: Alert, No Acute Distress Eye Exam: Positive: PERRLA, Conjunctiva & lids normal, EOMI, Negative: Sclera icteric Neck Exam: Positive: Supple, Negative: JVD, thyromegaly Chest Exam: Positive: Clear to auscultation, Normal air movement Heart Exam: Positive: Rate Normal, Regular Rhythm, Normal S1, Normal S2, Negative: Murmurs, Rubs Abdomen Exam: Positive: Normal bowel sounds, Soft, Negative: Tenderness, Hepatospenomegaly Extremity Exam: Positive: Edema (left lower extremity swelling, and dressing to left foot) Psych Exam: Positive: Mental status NL, Mood NL, Oriented x 3 Assessment /Plan Problems (1) Diabetes mellitus out of control Status: Chronic Problem Specific Plan: Monitor Clinically Problem Text: home dosing of Toujeo. RISS per protocol ordered. Monitor FS q 6 hrs while patient is NPO. (2) Osteomyelitis of left foot Status: Acute Problem Text: 03/23 - Dr Guerra debrided the left foot and placed wound vac. On Ertapenem IV. Dr. Tyler ROSENBAUM consulted. (3) Left foot pain Status: Chronic (4) Anxiety Status: Chronic Problem Specific Plan: Monitor Clinically (5) Depression Status: Chronic Problem Specific Plan: Monitor Clinically (6) HTN (hypertension) Status: Chronic Response to Treatment: Stable Problem Specific Plan: Monitor Clinically (7) CKD (chronic kidney disease) Status: Chronic Response to Treatment: Stable Problem Specific Plan: Monitor Clinically Problem Text: 03/23 - Cr 1.39 today. 03/22 - Cr. 1.16, mildly elevated today, monitor. (8) Recurrent deep vein thrombosis (DVT) Status: Chronic Problem Text: 03/23 - Warfarin restarted after surgery last night. INR 1.53 today. 03/22 - Anticoagulants on hold for pending surgery. (9) Factor 5 Leiden mutation, heterozygous Status: Chronic (10) Chronic foot ulcer Status: Chronic Problem Specific Plan: Consult Specialist Problem Text: 03/23 - Dr Guerra debrided the left foot and placed wound vac. 03/22 - Planned debridement with Dr. Guerra today. (11) CTS (carpal tunnel syndrome) Status: Acute Problem Text: Pt is s/p right CTS and UTS. Has sutures that are due to be removed this week by Dr Verdugo in [place]. May need to be removed here if pt remains here. D/W attending. Plan/VTE VTE Prophylaxis Ordered?: No VTE Exclusion Mechanical Proph: Other (planned surgery) VS, I&O, 24H, Fishbone Vital Signs/I&O Vital Signs Date Time Temp Pulse Resp B/P (MAP) Pulse Ox O2 Delivery O2 Flow Rate FiO2 03/23/17 08:26 124/65 03/23/17 08:25 18 03/23/17 06:00 97.4 71 94 Room Air 03/22/17 21:03 2 I&O- Last 24 Hours up to 6 AM 03/23/17 06:00 Intake Total 1000 ml Output Total 950 ml Balance 50 ml Laboratory Data 24H LABS Laboratory Tests 2 03/22/17 10:40: Prothrombin Time 31.5H, Prothromb Time International Ratio 3.04 03/22/17 12:04: Bedside Glucose (Misc Panel) 574*H 03/22/17 12:33: Prothrombin Time 33.3H, Prothromb Time International Ratio 3.27, Bedside Glucose Confirm (Misc) 540*H 03/22/17 13:51: Bedside Glucose (Misc Panel) 513*H 03/22/17 14:16: Prothrombin Time 32.3H, Prothromb Time International Ratio 3.14 03/22/17 15:44: Bedside Glucose (Misc Panel) 386H 03/22/17 16:33: Bedside Glucose (Misc Panel) 293H 03/22/17 20:56: Bedside Glucose (Misc Panel) 86 03/23/17 06:38: White Blood Count 3.7L, Red Blood Count 3.26L, Hemoglobin 8.5L, Hematocrit 26.8L , Mean Corpuscular Volume 82.3, Mean Corpuscular Hemoglobin 26.2L, Mean Corpuscular Hemoglobin Concent 31.9L, Red Cell Distribution Width 15.2H, Platelet Count 252, Neutrophils (%) (Auto) 59.5, Lymphocytes (%) (Auto) 28.2, Monocytes (%) (Auto) 5.6H, Eosinophils (%) (Auto) 4.2H, Basophils (%) (Auto) 0.5 , Neutrophils # (Auto) 2.2, Lymphocytes # (Auto) 1.1L, Monocytes # (Auto) 0.2, Eosinophils # (Auto) 0.2, Basophils # (Auto) 0.0, Large Unclassified Cells % 2.1 , Large Unclassified Cells # 0.1, Prothrombin Time 18.5H, Prothromb Time International Ratio 1.53, Anion Gap 8, Glomerular Filtration Rate 43.3L, Blood Urea Nitrogen 26H, Creatinine 1.39H, Sodium Level 132L, Potassium Level 4.5, Chloride Level 98, Carbon Dioxide Level 26, Calcium Level 7.9L, Aspartate Amino Transf (AST/SGOT) 14L, Alanine Aminotransferase (ALT/SGPT) 14, Alkaline Phosphatase 117, Total Bilirubin 0.2, Total Protein 6.8, Albumin 2.1L, Magnesium Level 2.0, Albumin/Globulin Ratio 0.45L CBC/BMP Laboratory Tests 03/23/17 06:38 Red Blood Count 3.26 L, Mean Corpuscular Volume 82.3, Mean Corpuscular Hemoglobin 26.2 L, Mean Corpuscular Hemoglobin Concent 31.9 L, Red Cell Distribution Width 15.2 H, Neutrophils (%) (Auto) 59.5, Lymphocytes (%) (Auto) 28.2, Monocytes (%) (Auto) 5.6 H, Eosinophils (%) (Auto) 4.2 H, Basophils (%) ( Auto) 0.5, Neutrophils # (Auto) 2.2, Lymphocytes # (Auto) 1.1 L, Monocytes # ( Auto) 0.2, Eosinophils # (Auto) 0.2, Basophils # (Auto) 0.0, Calcium Level 7.9 L , Aspartate Amino Transf (AST/SGOT) 14 L, Alanine Aminotransferase (ALT/SGPT) 14 , Alkaline Phosphatase 117, Total Bilirubin 0.2, Total Protein 6.8, Albumin 2.1 L Microbiology Microbiology 03/21/17 Blood Culture - Preliminary, Resulted No growth after 24 hours . All specim... 03/21/17 Blood Culture - Preliminary, Resulted No growth after 24 hours . All specim... 03/22/17 Wound Culture, Received Pending 03/22/17 Anaerobic Culture, Received Pending 03/21/17 Gram Stain - Final, Resulted 03/21/17 Wound Culture, Resulted Pending Iglesia Sheikh Mar 23, 2017 10:07
[2017-03-23] MEDS: WARFARIN SOD 1 MG TAB PO SCH (16:59)
[2017-03-23] MEDS: ERTAPENEM SODIUM 1 GM in NS MINI-BAG PLUS 50 ML IV SCH (19:59)
[2017-03-23] MEDS: QUEtiapine FUMARATE 200 MG TAB PO SCH (21:00)
[2017-03-23] MEDS: rOPINIRole 1MG TAB PO SCH (21:01)
[2017-03-23] MEDS: SPIRONOLACTONE 25 MG TAB PO SCH (21:02)
[2017-03-23] MEDS: traZODone 100 MG TAB PO SCH (21:02)
[2017-03-23] MEDS: FAMOTIDINE 20 MG TAB PO SCH (21:02)
[2017-03-23] MEDS: MONTELUKAST 10 MG TAB PO SCH (21:02)
[2017-03-24] MEDS ORDERED: MIRALAX *UNIT DOSE* 17GM PACKET PO PRN (03:45)
[2017-03-24 06:00] VITALS: BP 146/65
[2017-03-24] MEDS: NORCO, ANEXSIA 5/325MG TABLET (HYDROcodone/ACETAMINOPHEN) PO PRN ×5 (06:01→22:41)
[2017-03-24 06:51] LABS: INR 1.5
[2017-03-24 06:57] LABS: MEAN CORPUSCULAR HEMOGLOBIN 26.7 pg (27.0-33.0); MEAN CORPUSCULAR HGB CONC 33.2 g/dl (32.0-36.5); MEAN CORPUSCULAR VOLUME 80.3 fl (80.0-96.0); PLATELET COUNT, AUTOMATED 277 k/mm3 (150-450); RED CELL DISTRIBUTION WIDTH 15.1 % (11.5-14.5); WHITE BLOOD COUNT 3.7 K/mm3 (4.0-10.0)
[2017-03-24 07:05] LABS: ALBUMIN 2.2 GM/DL (3.2-5.2); ALBUMIN/GLOBULIN RATIO 0.43 (1.00-1.93); ALKALINE PHOSPHATASE 113 U/L (45-117); ALT/SGPT 12 U/L (12-78); ANION GAP 5 MEQ/L (8-16); AST/SGOT 11 U/L (15-37); BILIRUBIN,TOTAL 0.2 MG/DL (0.2-1.0); BLOOD UREA NITROGEN 23 MG/DL (7-18); CALCIUM LEVEL 8.7 MG/DL (8.5-10.1); CARBON DIOXIDE LEVEL 28 MEQ/L (21-32); CHLORIDE LEVEL 104 MEQ/L (98-107); CREATININE FOR GFR 0.91 MG/DL (0.55-1.02); GLOMERULAR FILTRATION RATE > 60.0 (>58); GLUCOSE, FASTING 204 MG/DL (70-105); MAGNESIUM LEVEL 2.3 MG/DL (1.8-2.4); POTASSIUM SERUM 4.3 MEQ/L (3.5-5.1); SODIUM LEVEL 137 MEQ/L (136-145); TOTAL PROTEIN 7.3 GM/DL (6.4-8.2)
[2017-03-24 07:26] LABS: EOSINOPHILS 6 % (0-5)
[2017-03-24 07:27] LABS: ANISOCYTOSIS 1+
[2017-03-24] MEDS: SYMBICORT 160/4.5MCG INHALER 6GM INH SCH ×2 (07:39→19:53)
[2017-03-24] MEDS: TOUJEO (PATIENT'S OWN MED) SC SCH ×2 (09:00→21:57)
[2017-03-24] MEDS: BENAZEPRIL 20 MG TAB PO SCH (09:11)
[2017-03-24] MEDS: FERROUS SULFATE 325MG TAB PO SCH (09:11)
[2017-03-24] MEDS: CHLORTHALIDONE 12.5MG PER 1/2 TABLET PO SCH (09:11)
[2017-03-24] MEDS: METOCLOPRAMIDE 5 MG TAB PO SCH ×3 (09:11→21:55)
[2017-03-24] MEDS: OMEPRAZOLE 20 MG CAP PO SCH ×2 (09:12→21:55)
[2017-03-24] MEDS: DIVALPROEX 250 MG TAB PO SCH ×2 (09:12→21:57)
[2017-03-24] MEDS: DOCUSATE SODIUM 100 MG CAP PO SCH (09:12)
[2017-03-24] MEDS: PREGABALIN 100 MG CAP (LYRICA) PO SCH ×2 (09:12→21:57)
[2017-03-24] MEDS: DULoxetine 30 MG CAP (CYMBALTA) PO SCH ×2 (09:12→21:55)
[2017-03-24] MEDS: HumaLOG INSULIN (NovoLOG) PER UNIT SC SCH ×4 (09:13→21:58)
--- NOTE | 2017-03-24 10:11 | IPNPDOC ---
Subjective Date Seen The patient was seen on 03/24/17. Subjective Chief Complaint/HPI The patient is a 46-year-old female admitted with a reason for visit of Ulcer Left Arche. Events since last encounter Pt denies new issues. Denies fevers or chills. Denies CP, SOB, Abd pain. Constitutional: Denies: Chills, Fever Pulmonary: Denies: Dyspnea Cardiovascular: Denies: Chest Pain Gastrointestinal: Denies: Nausea, Vomiting, Abdominal Pain Objective Physical Examination General Exam: Positive: Alert, No Acute Distress Eye Exam: Positive: PERRLA, Conjunctiva & lids normal, EOMI, Negative: Sclera icteric Neck Exam: Positive: Supple, Negative: JVD, thyromegaly Chest Exam: Positive: Clear to auscultation, Normal air movement Heart Exam: Positive: Rate Normal, Regular Rhythm, Normal S1, Normal S2, Negative: Murmurs, Rubs Abdomen Exam: Positive: Normal bowel sounds, Soft, Negative: Tenderness, Hepatospenomegaly Extremity Exam: Positive: Edema (left lower extremity swelling, and dressing to left foot) Psych Exam: Positive: Mental status NL, Mood NL, Oriented x 3 Assessment /Plan Problems (1) Chronic foot ulcer Status: Chronic Problem Specific Plan: Consult Specialist Problem Text: 03/24 - Woud cx grew Staph Aureus and Strep Agalactiae group B. On IV Ertapenem. I discussed this with Dr Scott who is also following the pt. She plans on discussing with Dr Guerra. 03/23 - Dr Guerra debrided the left foot and placed wound vac. 03/22 - Planned debridement with Dr. Guerra today. (2) Osteomyelitis of left foot Status: Acute Problem Text: 03/24 - Woud cx grew Staph Aureus and Strep Agalactiae group B. On IV Ertapenem. I discussed this with Dr Scott who is also following the pt. She plans on discussing with Dr Guerra. 03/23 - Dr Guerra debrided the left foot and placed wound vac. On Ertapenem IV. Dr. Scott ID consulted. (3) Left foot pain Status: Chronic (4) Diabetes mellitus out of control Status: Chronic Problem Specific Plan: Monitor Clinically Problem Text: home dosing of Toujeo. RISS per protocol ordered. Monitor FS q 6 hrs while patient is NPO. (5) Recurrent deep vein thrombosis (DVT) Status: Chronic Problem Text: 03/24 - Back on Warfarin. INR 1.50 today. Pt is scheduled to receive Warfarin 5 mg today. Current dosing schedule for warfarin is 1 mg on Sun, Mon, Wed, Fri, Sat, and 5 mg on , Th. 03/23 - Warfarin restarted after surgery last night. INR 1.53 today. 03/22 - Anticoagulants on hold for pending surgery. (6) CKD (chronic kidney disease) Status: Chronic Response to Treatment: Stable Problem Specific Plan: Monitor Clinically Problem Text: 03/24 - Cr 0.91 today. 03/23 - Cr 1.39 today. 03/22 - Cr. 1.16, mildly elevated today, monitor. (7) Anxiety Status: Chronic Problem Specific Plan: Monitor Clinically (8) Depression Status: Chronic Problem Specific Plan: Monitor Clinically (9) HTN (hypertension) Status: Chronic Response to Treatment: Stable Problem Specific Plan: Monitor Clinically (10) Factor 5 Leiden mutation, heterozygous Status: Chronic (11) CTS (carpal tunnel syndrome) Status: Acute Problem Text: Pt is s/p right CTS and UTS. Has sutures that are due to be removed this week by Dr Verdugo in [place]. May need to be removed here if pt remains here. D/W attending. Plan/VTE VTE Prophylaxis Ordered?: Yes (coumadin) VTE Exclusion Mechanical Proph: Other (planned surgery) VS, I&O, 24H, Fishbone Vital Signs/I&O Vital Signs Date Time Temp Pulse Resp B/P (MAP) Pulse Ox O2 Delivery O2 Flow Rate FiO2 03/24/17 09:11 146/65 03/24/17 06:31 18 03/24/17 06:00 97.6 68 98 Room Air 03/22/17 21:03 2 I&O- Last 24 Hours up to 6 AM 03/24/17 05:59 Intake Total 1800 ml Output Total 1850 ml Balance -50 ml Laboratory Data 24H LABS Laboratory Tests 2 03/23/17 11:31: Bedside Glucose (Misc Panel) 389H 03/23/17 16:34: Bedside Glucose (Misc Panel) 340H 03/23/17 17:02: Urine Appearance CLEAR, Urine Color YELLOW, Urine pH 6.0, Urine Specific [place] 1.016, Urine Protein 2+H, Urine Glucose (UA) 2+H, Urine Ketones NEGATIVE , Urine Urobilinogen 0.2, Urine Bilirubin NEGATIVE, Urine Leukocyte Esterase NEGATIVE, Urine Blood NEGATIVE, Urine Nitrite NEGATIVE, Urine WBC (Auto) 1, Urine RBC (Auto) 2, Urine Hyaline Casts (Auto) 0, Urine Bacteria (Auto) NEGATIVE , Urine Squamous Epithelial Cells 2, Urine Mucus (Auto) SMALL, Urine Sperm (Auto ) 03/23/17 20:04: Bedside Glucose (Misc Panel) 384H 03/24/17 06:14: Neutrophils 53, Lymphocytes (Manual) 38, Monocytes (Manual) 1, Eosinophils ( Manual) 6H, Metamyelocytes 1H, Myelocytes 1H, Platelet Estimate NORMAL, Anisocytosis 1+, Prothrombin Time 18.2H, Prothromb Time International Ratio 1.50 , Anion Gap 5L, Glomerular Filtration Rate > 60.0, Blood Urea Nitrogen 23H, Creatinine 0.91, Sodium Level 137, Potassium Level 4.3, Chloride Level 104, Carbon Dioxide Level 28, Calcium Level 8.7, Aspartate Amino Transf (AST/SGOT) 11L, Alanine Aminotransferase (ALT/SGPT) 12, Alkaline Phosphatase 113, Total Bilirubin 0.2, Total Protein 7.3, Albumin 2.2L, Magnesium Level 2.3, Albumin/ Globulin Ratio 0.43L CBC/BMP Laboratory Tests 03/24/17 06:14 Red Blood Count 3.44 L, Mean Corpuscular Volume 80.3, Mean Corpuscular Hemoglobin 26.7 L, Mean Corpuscular Hemoglobin Concent 33.2, Red Cell Distribution Width 15.1 H, Calcium Level 8.7, Aspartate Amino Transf (AST/SGOT) 11 L, Alanine Aminotransferase (ALT/SGPT) 12, Alkaline Phosphatase 113, Total Bilirubin 0.2, Total Protein 7.3, Albumin 2.2 L Microbiology Microbiology 03/21/17 Blood Culture - Preliminary, Resulted No Growth after 48 hours. All Specime... 03/21/17 Blood Culture - Preliminary, Resulted No Growth after 48 hours. All Specime... 03/22/17 Wound Culture, Received Pending 03/22/17 Anaerobic Culture, Received Pending 03/21/17 Gram Stain - Final, Complete 03/21/17 Wound Culture - Final, Complete Staphylococcus Aureus Strep Agalactiae Group B Iglesia Sheikh RPA-C Mar 24, 2017 10:11
[2017-03-24 14:00] VITALS: BP 145/81
--- NOTE | 2017-03-24 16:39 | IPN ---
DATE: 03/24/2017 Continues complaining of left foot pain. She states her left leg is swollen as well. She has a wound vacuum assisted closure (VAC) in place. She is worried about osteomyelitis and losing her leg. She has had no fever or chills. Tolerating IV antibiotics well. Temperature is 98.3, pulse 77, respirations 19, blood pressure 145/81, oxygen saturation 96% on room air. Heart: Normal S1, S2, with no murmurs. Lungs are clear. Abdomen: Morbidly obese, soft, nontender. Extremity right leg with no edema. Has a tattoo left leg. Has calf tenderness and some swelling. Medially there is erythema. The wound VAC was not removed today. I will see the wound tomorrow. Culture was positive for MSSA and Group B Streptococcus, both heavy growth. The patient had been on outpatient Levaquin for about 2 weeks and developed worsening infection while on treatment. My concern is she might have osteomyelitis. LABORATORY DATA: White count 3.7, hemoglobin 9.2, hematocrit 27.6, platelets 277, 53% neutrophils, 38% lymphocytes. Sodium 137, potassium 4.3, chloride 104, bicarbonate 28, BUN 23, creatinine 0.9, glucose 204, calcium 8.7, CRP on admission was 8.21. PLAN: Schedule MRI of left foot. If patient has evidence of osteomyelitis she will need a PICC line for IV antibiotics and possibly further surgery. The patient agrees on the MRI. Continue IV Invanz 1 gram daily. Monitor complete blood count (CBC), C-reactive protein (CRP) weekly.
[2017-03-24] MEDS: WARFARIN SOD 5 MG TAB PO SCH (16:42)
[2017-03-24] MEDS: ERTAPENEM SODIUM 1 GM in NS MINI-BAG PLUS 50 ML IV SCH (20:10)
[2017-03-24] MEDS: QUEtiapine FUMARATE 200 MG TAB PO SCH (21:54)
[2017-03-24] MEDS: rOPINIRole 1MG TAB PO SCH (21:54)
[2017-03-24] MEDS: CYCLOBENZAPRINE 5MG TABLET PO PRN (21:55)
[2017-03-24] MEDS: SPIRONOLACTONE 25 MG TAB PO SCH (21:55)
[2017-03-24] MEDS: FAMOTIDINE 20 MG TAB PO SCH (21:55)
[2017-03-24] MEDS: MONTELUKAST 10 MG TAB PO SCH (21:55)
[2017-03-24] MEDS: traZODone 100 MG TAB PO SCH (21:55)
[2017-03-24 22:00] VITALS: BP 188/100
--- NOTE | 2017-03-24 23:50 | IPNPDOC ---
Text Note Date of Service The patient was seen on 03/24/17. NOTE Patient was scheduled for removal of sutures today, and since she could not see her surgeon, I removed them at bedside. Her surgery was on 03/07, and in some places the skin had all but healed over the sutures. The scar from the ulnar nerve decompression appears hypertrophic, and she states that the incision was made over the earlier incision. After removal the incisions appeared well- healed, save for a small portion of the ulnar nerve incision which appeared superficially open. For safety's sake, I applied a Steri-Strip. VS,Fishbone, I+O VS, Fishbone, I+O Laboratory Tests 03/24/17 06:14 Red Blood Count 3.44 L, Mean Corpuscular Volume 80.3, Mean Corpuscular Hemoglobin 26.7 L, Mean Corpuscular Hemoglobin Concent 33.2, Red Cell Distribution Width 15.1 H, Calcium Level 8.7, Aspartate Amino Transf (AST/SGOT) 11 L, Alanine Aminotransferase (ALT/SGPT) 12, Alkaline Phosphatase 113, Total Bilirubin 0.2, Total Protein 7.3, Albumin 2.2 L Vital Signs Date Time Temp Pulse Resp B/P (MAP) Pulse Ox O2 Delivery O2 Flow Rate FiO2 03/24/17 22:41 17 03/24/17 22:00 97.7 69 188/100 (129) 97 Room Air 03/22/17 21:03 2 I&O- Last 24 Hours up to 6 AM 03/24/17 06:00 Intake Total 1560 ml Output Total 1850 ml Balance -290 ml NEETA SLOAN DO Mar 24, 2017 23:50
[2017-03-25 06:00] VITALS: BP 154/68
[2017-03-25] MEDS: NORCO, ANEXSIA 5/325MG TABLET (HYDROcodone/ACETAMINOPHEN) PO PRN ×4 (06:07→21:14)
[2017-03-25 06:48] LABS: BASO % 0.7 % (0.0-1.0); EOS # 0.2 K/mm3 (0.0-0.50); EOS % 4.9 % (0.0-3.0); LARGE UNSTAINED CELL # 0.2 K/mm3 (0.0-0.4); LARGE UNSTAINED CELL % 3.6 % (0.0-4.0); LYMPH # 1.8 K/mm3 (1.5-4.5); LYMPH % 37.9 % (24.0-44.0); MEAN CORPUSCULAR HEMOGLOBIN 26.7 pg (27.0-33.0); MEAN CORPUSCULAR HGB CONC 32.8 g/dl (32.0-36.5); MEAN CORPUSCULAR VOLUME 81.3 fl (80.0-96.0); MONO # 0.4 K/mm3 (0.0-0.8); NEUTROPHILS % 44.9 % (36.0-66.0); PLATELET COUNT, AUTOMATED 290 k/mm3 (150-450); RED CELL DISTRIBUTION WIDTH 15.4 % (11.5-14.5); WHITE BLOOD COUNT 4.4 K/mm3 (4.0-10.0)
[2017-03-25 06:51] LABS: INR 1.81
[2017-03-25 07:10] LABS: ALBUMIN 2.6 GM/DL (3.2-5.2); ALBUMIN/GLOBULIN RATIO 0.57 (1.00-1.93); ALKALINE PHOSPHATASE 129 U/L (45-117); ALT/SGPT 14 U/L (12-78); ANION GAP 7 MEQ/L (8-16); AST/SGOT 10 U/L (15-37); BILIRUBIN,TOTAL 0.2 MG/DL (0.2-1.0); BLOOD UREA NITROGEN 22 MG/DL (7-18); CALCIUM LEVEL 8.7 MG/DL (8.5-10.1); CARBON DIOXIDE LEVEL 28 MEQ/L (21-32); CHLORIDE LEVEL 101 MEQ/L (98-107); CREATININE FOR GFR 0.95 MG/DL (0.55-1.02); GLOMERULAR FILTRATION RATE > 60.0 (>58); GLUCOSE, FASTING 330 MG/DL (70-105); MAGNESIUM LEVEL 1.9 MG/DL (1.8-2.4); POTASSIUM SERUM 4.6 MEQ/L (3.5-5.1); SODIUM LEVEL 136 MEQ/L (136-145); TOTAL PROTEIN 7.2 GM/DL (6.4-8.2)
--- NOTE | 2017-03-25 07:58 | IPNPDOC ---
Subjective Date Seen The patient was seen on 03/25/17. Subjective Chief Complaint/HPI The patient is a 46-year-old female admitted with a reason for visit of Ulcer Left Arche. Events since last encounter plan is for MRI today to r/o osteomyelitis. Wound vac placed. Denies c/o today. Constitutional: Denies: Chills, Fever, Night Sweats ENT: Denies: Head Aches, Ear Pain, Dysphagia Skin: Denies: Rash, Lesions, Breakdown Pulmonary: Denies: Dyspnea, Cough Gastrointestinal: Denies: Nausea, Vomiting, Abdominal Pain, Diarrhea, Constipation Genitourinary: Denies: Dysuria, Frequency, Incontinence, Retention Psych: Reports: Mood Normal, Denies: Depression, Memory Issues Objective Physical Examination General Exam: Positive: Alert, No Acute Distress Eye Exam: Positive: PERRLA, Conjunctiva & lids normal, EOMI, Negative: Sclera icteric Neck Exam: Positive: Supple, Negative: JVD, thyromegaly Chest Exam: Positive: Clear to auscultation, Normal air movement Heart Exam: Positive: Rate Normal, Regular Rhythm, Normal S1, Normal S2, Negative: Murmurs, Rubs Abdomen Exam: Positive: Normal bowel sounds, Soft, Negative: Tenderness, Hepatospenomegaly Extremity Exam: Positive: Edema (left lower extremity swelling, and dressing to left foot) Psych Exam: Positive: Mental status NL, Mood NL, Oriented x 3 Assessment /Plan Problems (1) Chronic foot ulcer Status: Chronic Problem Specific Plan: Consult Specialist Problem Text: 03/25/2017: Continue IV ertapenem. MRI pending today to r/o osteomyelitis. 03/24 - Woud cx grew Staph Aureus and Strep Agalactiae group B. On IV Ertapenem. I discussed this with Dr Scott who is also following the pt. She plans on discussing with Dr Guerra. 03/23 - Dr Guerra debrided the left foot and placed wound vac. 03/22 - Planned debridement with Dr. Guerra today. (2) Osteomyelitis of left foot Status: Acute Problem Text: 03/24 - Woud cx grew Staph Aureus and Strep Agalactiae group B. On IV Ertapenem. I discussed this with Dr Scott who is also following the pt. She plans on discussing with Dr Guerra. 03/23 - Dr Guerra debrided the left foot and placed wound vac. On Ertapenem IV. Dr. Scott ID consulted. (3) Left foot pain Status: Chronic (4) Diabetes mellitus out of control Status: Chronic Problem Specific Plan: Monitor Clinically Problem Text: 03/25/2017: blood sugars are elevated. Continue RISS. home dosing of Toujeo. RISS per protocol ordered. Monitor FS q 6 hrs while patient is NPO. (5) Recurrent deep vein thrombosis (DVT) Status: Chronic Problem Text: 03/24 - Back on Warfarin. INR 1.50 today. Pt is scheduled to receive Warfarin 5 mg today. Current dosing schedule for warfarin is 1 mg on Tue, Mon, Wed, Tue, Sat, and 5 mg on , . 03/23 - Warfarin restarted after surgery last night. INR 1.53 today. 03/22 - Anticoagulants on hold for pending surgery. (6) CKD (chronic kidney disease) Status: Chronic Response to Treatment: Stable Problem Specific Plan: Monitor Clinically Problem Text: 03/24 - Cr 0.91 today. 03/23 - Cr 1.39 today. 03/22 - Cr. 1.16, mildly elevated today, monitor. (7) Anxiety Status: Chronic Problem Specific Plan: Monitor Clinically (8) Depression Status: Chronic Problem Specific Plan: Monitor Clinically (9) HTN (hypertension) Status: Chronic Response to Treatment: Stable Problem Specific Plan: Monitor Clinically (10) Factor 5 Leiden mutation, heterozygous Status: Chronic (11) CTS (carpal tunnel syndrome) Status: Acute Problem Text: Pt is s/p right CTS and UTS. Has sutures that are due to be removed this week by Dr Verdugo in [place]. May need to be removed here if pt remains here. D/W attending. Plan/VTE VTE Prophylaxis Ordered?: Yes (coumadin) VTE Exclusion Mechanical Proph: Other (planned surgery) VS, I&O, 24H, Fishbone Vital Signs/I&O Vital Signs Date Time Temp Pulse Resp B/P (MAP) Pulse Ox O2 Delivery O2 Flow Rate FiO2 03/25/17 06:37 18 03/25/17 06:07 Room Air 03/25/17 06:00 97.3 67 154/68 (96) 96 03/22/17 21:03 2 I&O- Last 24 Hours up to 6 AM 03/25/17 06:00 Intake Total 2400 ml Output Total 4050 ml Balance -1650 ml Laboratory Data 24H LABS Laboratory Tests 2 03/24/17 11:35: Bedside Glucose (Misc Panel) 258H 03/24/17 16:27: Bedside Glucose (Misc Panel) 470H 03/24/17 20:21: Bedside Glucose (Misc Panel) 412H 03/25/17 06:26: White Blood Count 4.4, Red Blood Count 3.59L, Hemoglobin 9.6L, Hematocrit 29.1L , Mean Corpuscular Volume 81.3, Mean Corpuscular Hemoglobin 26.7L, Mean Corpuscular Hemoglobin Concent 32.8, Red Cell Distribution Width 15.4H, Platelet Count 290, Neutrophils (%) (Auto) 44.9, Lymphocytes (%) (Auto) 37.9, Monocytes (%) (Auto) 8.0H, Eosinophils (%) (Auto) 4.9H, Basophils (%) (Auto) 0.7 , Neutrophils # (Auto) 2.0, Lymphocytes # (Auto) 1.8, Monocytes # (Auto) 0.4, Eosinophils # (Auto) 0.2, Basophils # (Auto) 0.0, Large Unclassified Cells % 3.6 , Large Unclassified Cells # 0.2, Prothrombin Time 21.1H, Prothromb Time International Ratio 1.81, Anion Gap 7L, Glomerular Filtration Rate > 60.0, Blood Urea Nitrogen 22H, Creatinine 0.95, Sodium Level 136, Potassium Level 4.6 , Chloride Level 101, Carbon Dioxide Level 28, Calcium Level 8.7, Aspartate Amino Transf (AST/SGOT) 10L, Alanine Aminotransferase (ALT/SGPT) 14, Alkaline Phosphatase 129H, Total Bilirubin 0.2, Total Protein 7.2, Albumin 2.6L, Magnesium Level 1.9, C-Reactive Protein, Quantitative 3.36H, Albumin/Globulin Ratio 0.57L CBC/BMP Laboratory Tests 03/25/17 06:26 Red Blood Count 3.59 L, Mean Corpuscular Volume 81.3, Mean Corpuscular Hemoglobin 26.7 L, Mean Corpuscular Hemoglobin Concent 32.8, Red Cell Distribution Width 15.4 H, Neutrophils (%) (Auto) 44.9, Lymphocytes (%) (Auto) 37.9, Monocytes (%) (Auto) 8.0 H, Eosinophils (%) (Auto) 4.9 H, Basophils (%) ( Auto) 0.7, Neutrophils # (Auto) 2.0, Lymphocytes # (Auto) 1.8, Monocytes # (Auto ) 0.4, Eosinophils # (Auto) 0.2, Basophils # (Auto) 0.0, Calcium Level 8.7, Aspartate Amino Transf (AST/SGOT) 10 L, Alanine Aminotransferase (ALT/SGPT) 14, Alkaline Phosphatase 129 H, Total Bilirubin 0.2, Total Protein 7.2, Albumin 2.6 L Microbiology Microbiology 03/21/17 Blood Culture - Preliminary, Resulted No Growth after 72 hours. All specime... 03/21/17 Blood Culture - Preliminary, Resulted No Growth after 72 hours. All specime... 03/22/17 Wound Culture - Final, Resulted Strep Agalactiae Group B Staphylococcus Aureus Enterococcus Faecalis 03/22/17 Anaerobic Culture, Resulted Pending 03/21/17 Gram Stain - Final, Complete 03/21/17 Wound Culture - Final, Complete Staphylococcus Aureus Strep Agalactiae Group B Laxmi Hernandez [employer] Mar 25, 2017 07:58
[2017-03-25] MEDS: HumaLOG INSULIN (NovoLOG) PER UNIT SC SCH ×4 (08:04→21:13)
[2017-03-25] MEDS: CHLORTHALIDONE 12.5MG PER 1/2 TABLET PO SCH (08:04)
[2017-03-25] MEDS: BENAZEPRIL 20 MG TAB PO SCH (08:05)
[2017-03-25] MEDS: PREGABALIN 100 MG CAP (LYRICA) PO SCH ×2 (08:05→21:12)
[2017-03-25] MEDS: DULoxetine 30 MG CAP (CYMBALTA) PO SCH ×2 (08:05→21:12)
[2017-03-25] MEDS: FERROUS SULFATE 325MG TAB PO SCH (08:05)
[2017-03-25] MEDS: DOCUSATE SODIUM 100 MG CAP PO SCH (08:05)
[2017-03-25] MEDS: OMEPRAZOLE 20 MG CAP PO SCH ×2 (08:06→21:13)
[2017-03-25] MEDS: METOCLOPRAMIDE 5 MG TAB PO SCH ×3 (08:06→21:13)
[2017-03-25] MEDS: DIVALPROEX 250 MG TAB PO SCH ×2 (08:06→21:13)
[2017-03-25] MEDS: CYCLOBENZAPRINE 5MG TABLET PO PRN ×2 (08:14→21:36)
[2017-03-25] MEDS: TOUJEO (PATIENT'S OWN MED) SC SCH ×2 (08:14→21:14)
[2017-03-25] MEDS: ALPRAZolam 0.5 MG TAB PO PRN (08:14)
[2017-03-25] MEDS: SYMBICORT 160/4.5MCG INHALER 6GM INH SCH ×2 (08:40→20:39)
[2017-03-25 14:00] VITALS: BP 144/69
--- NOTE | 2017-03-25 14:47 | REP ---
MRI LEFT FOOT WITHOUT AND WITH IV GADOLINIUM: HISTORY: Chronic wound infection left foot volar aspect. Comparison is made with the most recent prior MRI study of the left foot from January 17, 2017. This was read as showing severe neuropathic joint disease but no evidence of abscess or osteomyelitis. MR TECHNIQUE: Axial, coronal and sagittal imaging planes utilized. T1 and T2-weighted scans were obtained in the usual fashion with without fat saturation. Gadolinium enhancement dose: 22 mL of intravenous ProHance is administered. MRI FINDINGS: Severe neuropathic arthropathy changes are noted in the midfoot and hindfoot with fragmentation, tarsal arch collapse ankle, subtalar and midfoot joint fluid, and diffuse midfoot soft tissue edema. No visible soft tissue abscess is seen. There is a large defect in the volar and lateral skin of the midfoot and hindfoot consistent with a history of skin wound. This is larger than on the January 17, 2017 study. There is no evidence of decreased T1-weighted signal intensity in any of the bony elements or other evidence to suggest osteomyelitis. There is volar tendon sheath fluid IMPRESSION: Large soft tissue and skin deficit over the volar and lateral aspect of the midfoot and hindfoot. 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 No MR evidence of osteomyelitis or soft tissue abscess seen. There is diffuse soft tissue edema. Signed by Obdulio Ruiz MD 03/25/2017 04:27 P
[2017-03-25] MEDS: WARFARIN SOD 1 MG TAB PO SCH (16:50)
--- NOTE | 2017-03-25 17:13 | IPN ---
DATE: 03/25/2017 SUBJECTIVE: Rebeca is doing better. She had her wound vacuum-assisted closure (VAC) changed today and an MRI of her foot which did not show any osteomyelitis. She has no nausea, vomiting or diarrhea and no abdominal pain. She still complains of foot pain and left calf pain. She has been afebrile throughout the admission. OBJECTIVE: VITAL SIGNS: Temperature is 97.3, pulse 67, respirations 19, blood pressure 154/68, oxygen saturation 96% on room air. HEART: Normal S1, S2. No murmurs. LUNGS: Clear. No wheezes, rales or rhonchi. ABDOMEN: Morbidly obese, soft, nontender. EXTREMITIES: The right leg no edema. Left leg +1 ankle edema with a Charcot deformity, and large ulcer measuring about 10 cm x 7 cm with granulation tissue, very minimal drainage. Erythema that extends to the calf has decreased as well. LABORATORY DATA: White count is 4.4, hemoglobin 9.6, hematocrit 29.1, platelets 290, 44% neutrophils, 38% lymphocytes, 8% monocytes. Sodium 136, potassium 4.6, chloride 101, bicarb 28, BUN 22, creatinine 0.95, glucose 330, calcium 8.7. CRP is 3.36 down from 8.21. Wound culture was positive for MSSA, Group B strep. E. Faecalis. Anaerobic culture is still pending. The culture that was superficial done at the bedside not intraoperatively, had MSSA and Group B strep. MRI is still pending. IMPRESSION: 1. Chronic diabetic foot ulcer of the left foot with culture positive for methicillin-sensitive Staphylococcus aureus (MSSA), group B streptococcus, and Enterococcus faecalis currently on intravenous (IV) Invanz doing better. 2. Insulin-dependent diabetes poorly controlled. PLAN: Will review MRI with Dr. Ruiz and depending on results, further decision regarding her treatment will be made. Continue for the weekend IV ertapenem 1 gram every 24 hours.
[2017-03-25] MEDS: ERTAPENEM SODIUM 1 GM in NS MINI-BAG PLUS 50 ML IV SCH (20:40)
[2017-03-25] MEDS: FAMOTIDINE 20 MG TAB PO SCH (21:12)
[2017-03-25] MEDS: rOPINIRole 1MG TAB PO SCH (21:12)
[2017-03-25] MEDS: SPIRONOLACTONE 25 MG TAB PO SCH (21:12)
[2017-03-25] MEDS: MONTELUKAST 10 MG TAB PO SCH (21:12)
[2017-03-25] MEDS: traZODone 100 MG TAB PO SCH (21:12)
[2017-03-25] MEDS: QUEtiapine FUMARATE 200 MG TAB PO SCH (21:13)
[2017-03-25 22:00] VITALS: BP 180/100
--- NOTE | 2017-03-25 23:39 | IPN ---
DATE OF PROCEDURE: 03/25/2017 TIME: 1:39 p.m. CHIEF COMPLAINT: Patient is seen for evaluation of an ulceration on her left foot. The patient was hospitalized due to increased pain and necrotic tissue on her left foot. She was taken to the operating room (OR) where she had a surgical debridement and application of a wound VAC. The patient had an MRI today, which is pending for evaluation of osteomyelitis of the mid foot. She is seen today for evaluation. Patient's ulceration measures from medial to lateral 6.6 cm, from distal to proximal 4.5 cm. It is approximately 0.4 cm in depth. It has an approximately 1.0 cm hyperkeratotic rim. This does not probe to bone. A black foam wound VAC was applied on the patient's left lower extremity with a dorsal bridge to the dorsum of the foot. Pressure setting 100 mmHg, medium intensity, continuous pressure. No leaks were detected. The patient tolerated the procedure satisfactorily. The patient will be followed by Dr. Salgado as needed since I will be out of town for 8 days. Her questions were answered.
[2017-03-26 02:00] VITALS: BP 150/92
[2017-03-26] MEDS: NORCO, ANEXSIA 5/325MG TABLET (HYDROcodone/ACETAMINOPHEN) PO PRN ×4 (05:20→21:23)
[2017-03-26] MEDS: CYCLOBENZAPRINE 5MG TABLET PO PRN (05:41)
[2017-03-26 05:51] LABS: BASO % 0.5 % (0.0-1.0); EOS # 0.2 K/mm3 (0.0-0.50); EOS % 4.2 % (0.0-3.0); LARGE UNSTAINED CELL # 0.2 K/mm3 (0.0-0.4); LYMPH % 32.8 % (24.0-44.0); MEAN CORPUSCULAR HEMOGLOBIN 26.8 pg (27.0-33.0); MEAN CORPUSCULAR HGB CONC 33.4 g/dl (32.0-36.5); MEAN CORPUSCULAR VOLUME 80.2 fl (80.0-96.0); MONO # 0.4 K/mm3 (0.0-0.8); MONO % 6.3 % (0.0-5.0); NEUTROPHILS % 53.2 % (36.0-66.0); PLATELET COUNT, AUTOMATED 311 k/mm3 (150-450); RED CELL DISTRIBUTION WIDTH 15.3 % (11.5-14.5); WHITE BLOOD COUNT 5.6 K/mm3 (4.0-10.0)
[2017-03-26 05:58] LABS: INR 2.12
[2017-03-26 06:00] VITALS: BP 148/86
[2017-03-26 06:15] LABS: ALBUMIN 2.5 GM/DL (3.2-5.2); ALBUMIN/GLOBULIN RATIO 0.58 (1.00-1.93); ALKALINE PHOSPHATASE 121 U/L (45-117); ALT/SGPT 13 U/L (12-78); ANION GAP 8 MEQ/L (8-16); AST/SGOT 12 U/L (15-37); BILIRUBIN,TOTAL 0.1 MG/DL (0.2-1.0); BLOOD UREA NITROGEN 20 MG/DL (7-18); CALCIUM LEVEL 8.4 MG/DL (8.5-10.1); CARBON DIOXIDE LEVEL 28 MEQ/L (21-32); CHLORIDE LEVEL 102 MEQ/L (98-107); CREATININE FOR GFR 0.72 MG/DL (0.55-1.02); GLOMERULAR FILTRATION RATE > 60.0 (>58); GLUCOSE, FASTING 143 MG/DL (70-105); MAGNESIUM LEVEL 1.8 MG/DL (1.8-2.4); POTASSIUM SERUM 4.5 MEQ/L (3.5-5.1); SODIUM LEVEL 138 MEQ/L (136-145); TOTAL PROTEIN 6.8 GM/DL (6.4-8.2)
[2017-03-26] MEDS: DOCUSATE SODIUM 100 MG CAP PO SCH (08:23)
[2017-03-26] MEDS: HumaLOG INSULIN (NovoLOG) PER UNIT SC SCH ×4 (08:23→21:24)
[2017-03-26] MEDS: OMEPRAZOLE 20 MG CAP PO SCH ×2 (08:23→21:22)
[2017-03-26] MEDS: FERROUS SULFATE 325MG TAB PO SCH (08:23)
[2017-03-26] MEDS: TOUJEO (PATIENT'S OWN MED) SC SCH ×2 (08:23→21:21)
[2017-03-26] MEDS: DULoxetine 30 MG CAP (CYMBALTA) PO SCH ×2 (08:24→21:22)
[2017-03-26] MEDS: CHLORTHALIDONE 12.5MG PER 1/2 TABLET PO SCH (08:24)
[2017-03-26] MEDS: BENAZEPRIL 20 MG TAB PO SCH (08:24)
[2017-03-26] MEDS: PREGABALIN 100 MG CAP (LYRICA) PO SCH ×2 (08:25→21:21)
[2017-03-26] MEDS: METOCLOPRAMIDE 5 MG TAB PO SCH ×3 (08:25→21:22)
[2017-03-26] MEDS: DIVALPROEX 250 MG TAB PO SCH ×2 (08:25→21:22)
[2017-03-26 14:00] VITALS: BP 141/86
[2017-03-26] MEDS: CYCLOBENZAPRINE 10 MG TAB PO PRN ×2 (15:12→21:22)
[2017-03-26] MEDS: WARFARIN SOD 1 MG TAB PO SCH (16:25)
--- NOTE | 2017-03-26 16:30 | IPNPDOC ---
Subjective Date Seen The patient was seen on 03/26/17. Subjective Chief Complaint/HPI The patient is a 46-year-old female admitted with a reason for visit of Ulcer Left Arche. Events since last encounter Patient reports ongoing pain in areas surrounding chronic wound. She is also requesting that her dose of cyclobenzaprine be increased - she states this is prescribed by Dr. Godwin and she normally takes 10 mg Q4-6H as needed; she takes only this no more than 4 times daily for back muscle spasms. Constitutional: Denies: Chills, Fever ENT: Denies: Head Aches Skin: Reports: Rash (erythema surrounding foot ulcer) Pulmonary: Denies: Dyspnea, Cough Cardiovascular: Denies: Chest Pain, Palpitations Gastrointestinal: Denies: Nausea, Vomiting, Abdominal Pain Genitourinary: Denies: Dysuria Hematologic: Denies: Bruising, Bleeding Excessively Musculoskeletal: Reports: Back Pain (chronic; spasms), Foot Pain (in area surrounding left foot ulcer) Neurological: Denies: Weakness, Numbness Psych: Reports: Mood Normal Objective Physical Examination General Exam: Positive: Alert, No Acute Distress Eye Exam: Positive: PERRLA, Conjunctiva & lids normal, EOMI, Negative: Sclera icteric Neck Exam: Positive: Supple, Negative: JVD, thyromegaly Chest Exam: Positive: Clear to auscultation, Normal air movement Heart Exam: Positive: Rate Normal, Regular Rhythm, Normal S1, Normal S2, Negative: Murmurs, Rubs Abdomen Exam: Positive: Normal bowel sounds, Soft, Negative: Tenderness, Hepatospenomegaly Extremity Exam: Positive: Edema (left foot is moderately edematous and erythematous surrounding foot wound; wound vac is in place over left foot wound) Neuro Exam: Positive: Normal Speech, Cranial Nerves 3-12 NL Psych Exam: Positive: Mental status NL, Mood NL, Oriented x 3 Assessment /Plan Problems (1) Chronic foot ulcer Status: Chronic Problem Specific Plan: Consult Specialist Problem Text: Continue IV ertapenem per Dr. Scott. Dr. Guerra debrided left foot wound and placed wound vac on 03/23/17; Dr. Salgado will be covering for him while he is out of town until 04/02. MRI on 03/25/17 showed: "IMPRESSION: Large soft tissue and skin deficit over the volar and lateral aspect of the midfoot and hindfoot. 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 No MR evidence of osteomyelitis or soft tissue abscess seen. There is diffuse soft tissue edema." (2) Osteomyelitis of left foot Status: Resolved Problem Text: MRI of foot was negative for osteomyelitis on 03/25/17 - see above. (3) Left foot pain Status: Chronic (4) Diabetes mellitus out of control Status: Chronic Problem Specific Plan: Monitor Clinically Problem Text: Blood sugars remain elevated though fasting blood sugar was better today. Continue home Toujeo and continue RISS and carb consistent diet.. (5) Recurrent deep vein thrombosis (DVT) Status: Chronic Problem Text: Therapeutic on home warfarin. Current dosing schedule for warfarin is 1 mg on Sun, Mon, Wed, Tue, Sat, and 5 mg on , Th.. (6) CKD (chronic kidney disease) Status: Chronic Response to Treatment: Stable Problem Specific Plan: Monitor Clinically Problem Text: Cr was mildly elevated upon admission and is now normal. Will monitor. (7) Anxiety Status: Chronic Problem Specific Plan: Monitor Clinically (8) Depression Status: Chronic Problem Specific Plan: Monitor Clinically (9) HTN (hypertension) Status: Chronic Response to Treatment: Stable Problem Specific Plan: Monitor Clinically (10) Factor 5 Leiden mutation, heterozygous Status: Chronic (11) CTS (carpal tunnel syndrome) Status: Acute Problem Text: Pt is s/p right CTS and UTS. Has sutures that are due to be removed this week by Dr Verdugo in [place]. May need to be removed here if pt remains here. (12) Chronic back pain Status: Chronic Response to Treatment: Stable Problem Text: Cyclobenzaprine increased to 10 mg QID. Plan/VTE VTE Prophylaxis Ordered?: Yes (warfarin) VTE Exclusion Mechanical Proph: Other (planned surgery) VS, I&O, 24H, Fishbone Vital Signs/I&O Vital Signs Date Time Temp Pulse Resp B/P (MAP) Pulse Ox O2 Delivery O2 Flow Rate FiO2 03/26/17 14:00 96.5 90 18 141/86 (104) 98 Room Air 03/22/17 21:03 2 I&O- Last 24 Hours up to 6 AM 03/26/17 05:59 Intake Total 1430 ml Output Total 2350 ml Balance -920 ml Laboratory Data 24H LABS Laboratory Tests 2 03/25/17 16:29: Bedside Glucose (Misc Panel) 309H 03/25/17 20:36: Bedside Glucose (Misc Panel) 351H 03/26/17 05:39: White Blood Count 5.6, Red Blood Count 3.64L, Hemoglobin 9.7L, Hematocrit 29.2L , Mean Corpuscular Volume 80.2, Mean Corpuscular Hemoglobin 26.8L, Mean Corpuscular Hemoglobin Concent 33.4, Red Cell Distribution Width 15.3H, Platelet Count 311, Neutrophils (%) (Auto) 53.2, Lymphocytes (%) (Auto) 32.8, Monocytes (%) (Auto) 6.3H, Eosinophils (%) (Auto) 4.2H, Basophils (%) (Auto) 0.5 , Neutrophils # (Auto) 3.0, Lymphocytes # (Auto) 2.0, Monocytes # (Auto) 0.4, Eosinophils # (Auto) 0.2, Basophils # (Auto) 0.0, Large Unclassified Cells % 3.0 , Large Unclassified Cells # 0.2, Prothrombin Time 23.8H, Prothromb Time International Ratio 2.12, Anion Gap 8, Glomerular Filtration Rate > 60.0, Blood Urea Nitrogen 20H, Creatinine 0.72, Sodium Level 138, Potassium Level 4.5, Chloride Level 102, Carbon Dioxide Level 28, Calcium Level 8.4L, Aspartate Amino Transf (AST/SGOT) 12L, Alanine Aminotransferase (ALT/SGPT) 13, Alkaline Phosphatase 121H, Total Bilirubin 0.1L, Total Protein 6.8, Albumin 2.5L, Magnesium Level 1.8, Albumin/Globulin Ratio 0.58L 03/26/17 11:46: Bedside Glucose (Misc Panel) 297H CBC/BMP Laboratory Tests 03/26/17 05:39 Red Blood Count 3.64 L, Mean Corpuscular Volume 80.2, Mean Corpuscular Hemoglobin 26.8 L, Mean Corpuscular Hemoglobin Concent 33.4, Red Cell Distribution Width 15.3 H, Neutrophils (%) (Auto) 53.2, Lymphocytes (%) (Auto) 32.8, Monocytes (%) (Auto) 6.3 H, Eosinophils (%) (Auto) 4.2 H, Basophils (%) ( Auto) 0.5, Neutrophils # (Auto) 3.0, Lymphocytes # (Auto) 2.0, Monocytes # (Auto ) 0.4, Eosinophils # (Auto) 0.2, Basophils # (Auto) 0.0, Calcium Level 8.4 L, Aspartate Amino Transf (AST/SGOT) 12 L, Alanine Aminotransferase (ALT/SGPT) 13, Alkaline Phosphatase 121 H, Total Bilirubin 0.1 L, Total Protein 6.8, Albumin 2.5 L Microbiology Microbiology 03/21/17 Blood Culture - Final, Complete NO GROWTH AFTER 5 DAYS 03/21/17 Blood Culture - Final, Complete NO GROWTH AFTER 5 DAYS 03/22/17 Wound Culture - Final, Resulted Strep Agalactiae Group B Staphylococcus Aureus Enterococcus Faecalis 03/22/17 Anaerobic Culture, Resulted Pending 03/21/17 Gram Stain - Final, Complete 03/21/17 Wound Culture - Final, Complete Staphylococcus Aureus Strep Agalactiae Group B RIAZ LOPEZ MD Mar 26, 2017 16:30
[2017-03-26] MEDS: ONDANSETRON 4MG/2ML VIAL (J2405) IV PRN ×2 (18:24→20:46)
[2017-03-26] MEDS: SYMBICORT 160/4.5MCG INHALER 6GM INH SCH (20:12)
[2017-03-26] MEDS: ERTAPENEM SODIUM 1 GM in NS MINI-BAG PLUS 50 ML IV SCH (20:46)
[2017-03-26] MEDS: traZODone 100 MG TAB PO SCH (21:21)
[2017-03-26] MEDS: rOPINIRole 1MG TAB PO SCH (21:21)
[2017-03-26] MEDS: SPIRONOLACTONE 25 MG TAB PO SCH (21:22)
[2017-03-26] MEDS: QUEtiapine FUMARATE 200 MG TAB PO SCH (21:22)
[2017-03-26] MEDS: FAMOTIDINE 20 MG TAB PO SCH (21:22)
[2017-03-26] MEDS: MONTELUKAST 10 MG TAB PO SCH (21:22)
[2017-03-26 22:00] VITALS: BP 162/94
[2017-03-27] MEDS: NORCO, ANEXSIA 5/325MG TABLET (HYDROcodone/ACETAMINOPHEN) PO PRN ×5 (04:21→21:20)
[2017-03-27 06:00] VITALS: BP 138/68
[2017-03-27 06:24] LABS: BASO % 0.5 % (0.0-1.0); EOS # 0.2 K/mm3 (0.0-0.50); EOS % 4.1 % (0.0-3.0); LARGE UNSTAINED CELL # 0.1 K/mm3 (0.0-0.4); LARGE UNSTAINED CELL % 2.8 % (0.0-4.0); LYMPH # 1.4 K/mm3 (1.5-4.5); LYMPH % 31.2 % (24.0-44.0); MEAN CORPUSCULAR HEMOGLOBIN 27.1 pg (27.0-33.0); MEAN CORPUSCULAR HGB CONC 33.7 g/dl (32.0-36.5); MEAN CORPUSCULAR VOLUME 80.3 fl (80.0-96.0); MONO # 0.3 K/mm3 (0.0-0.8); MONO % 6.6 % (0.0-5.0); NEUTROPHILS # 2.3 K/mm3 (1.8-7.7); NEUTROPHILS % 54.8 % (36.0-66.0); PLATELET COUNT, AUTOMATED 247 k/mm3 (150-450); RED CELL DISTRIBUTION WIDTH 15.5 % (11.5-14.5); WHITE BLOOD COUNT 4.1 K/mm3 (4.0-10.0)
[2017-03-27 06:31] LABS: INR 2.18
[2017-03-27 06:43] LABS: ALBUMIN 2.3 GM/DL (3.2-5.2); ALBUMIN/GLOBULIN RATIO 0.49 (1.00-1.93); ALKALINE PHOSPHATASE 113 U/L (45-117); ALT/SGPT 13 U/L (12-78); ANION GAP 9 MEQ/L (8-16); AST/SGOT 11 U/L (15-37); BILIRUBIN,TOTAL 0.2 MG/DL (0.2-1.0); BLOOD UREA NITROGEN 26 MG/DL (7-18); CALCIUM LEVEL 8.6 MG/DL (8.5-10.1); CARBON DIOXIDE LEVEL 28 MEQ/L (21-32); CHLORIDE LEVEL 101 MEQ/L (98-107); CREATININE FOR GFR 0.93 MG/DL (0.55-1.02); GLOMERULAR FILTRATION RATE > 60.0 (>58); GLUCOSE, FASTING 330 MG/DL (70-105); MAGNESIUM LEVEL 1.9 MG/DL (1.8-2.4); POTASSIUM SERUM 4.5 MEQ/L (3.5-5.1); SODIUM LEVEL 138 MEQ/L (136-145)
[2017-03-27] MEDS: SYMBICORT 160/4.5MCG INHALER 6GM INH SCH ×2 (08:26→21:00)
[2017-03-27] MEDS: HumaLOG INSULIN (NovoLOG) PER UNIT SC SCH ×4 (08:27→21:19)
[2017-03-27] MEDS: CHLORTHALIDONE 12.5MG PER 1/2 TABLET PO SCH (08:28)
[2017-03-27] MEDS: OMEPRAZOLE 20 MG CAP PO SCH ×2 (08:28→21:20)
[2017-03-27] MEDS: DOCUSATE SODIUM 100 MG CAP PO SCH (08:28)
[2017-03-27] MEDS: BENAZEPRIL 20 MG TAB PO SCH (08:28)
[2017-03-27] MEDS: METOCLOPRAMIDE 5 MG TAB PO SCH ×3 (08:29→21:21)
[2017-03-27] MEDS: FERROUS SULFATE 325MG TAB PO SCH (08:29)
[2017-03-27] MEDS: PREGABALIN 100 MG CAP (LYRICA) PO SCH ×2 (08:29→21:18)
[2017-03-27] MEDS: DULoxetine 30 MG CAP (CYMBALTA) PO SCH ×2 (08:29→21:20)
[2017-03-27] MEDS: CYCLOBENZAPRINE 10 MG TAB PO PRN ×2 (08:37→17:37)
[2017-03-27] MEDS: DIVALPROEX 250 MG TAB PO SCH ×2 (08:37→21:21)
[2017-03-27] MEDS: TOUJEO (PATIENT'S OWN MED) SC SCH ×2 (09:59→21:18)
--- NOTE | 2017-03-27 13:13 | IPNPDOC ---
Subjective Date Seen The patient was seen on 03/27/17. Subjective Chief Complaint/HPI The patient is a 46-year-old female admitted with a reason for visit of Ulcer Left Arche. Events since last encounter Patient's IV in right hand infiltrated yesterday, though she did receive her dose of antibiotic. She states she had swelling in that area that resolved with application of ice, but her hand is fractionating still operator there. Constitutional: Denies: Chills, Fever Skin: Denies: Rash Pulmonary: Denies: Dyspnea, Cough Cardiovascular: Denies: Chest Pain, Palpitations, Orthopnea Gastrointestinal: Denies: Nausea, Vomiting, Abdominal Pain Objective Physical Examination General Exam: Positive: Alert, No Acute Distress Eye Exam: Positive: Conjunctiva & lids normal, EOMI Chest Exam: Positive: Clear to auscultation, Normal air movement Heart Exam: Positive: Rate Normal, Regular Rhythm, Normal S1, Normal S2, Negative: Murmurs, Rubs Abdomen Exam: Positive: Normal bowel sounds, Soft, Negative: Tenderness, Hepatospenomegaly Extremity Exam: Positive: Edema (left foot is moderately edematous and erythematous surrounding foot wound; wound vac is in place over left foot wound) Neuro Exam: Positive: Normal Speech, Cranial Nerves 3-12 NL Psych Exam: Positive: Mental status NL, Mood NL, Oriented x 3 Assessment /Plan Problems (1) Chronic foot ulcer Status: Chronic Problem Specific Plan: Consult Specialist Problem Text: Continue IV ertapenem per Dr. Scott. She lost her IV site last night and she is a difficult stick - nurses are going to attempt to replace this today. If she is not able to get an IV, she may need a PICC vs. Port placement tomorrow (she states "I can't get a PICC because I have bad veins") Dr. Guerra debrided left foot wound and placed wound vac on 03/23/17; Dr. Salgado will be covering for him while he is out of town until 04/02. MRI on 03/25/17 showed: "IMPRESSION: Large soft tissue and skin deficit over the volar and lateral aspect of the midfoot and hindfoot. 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 No MR evidence of osteomyelitis or soft tissue abscess seen. There is diffuse soft tissue edema. " (2) Osteomyelitis of left foot Status: Resolved Problem Text: MRI of foot was negative for osteomyelitis on 03/25/17 - see above. (3) Left foot pain Status: Chronic (4) Diabetes mellitus out of control Status: Chronic Problem Specific Plan: Monitor Clinically Problem Text: Blood sugars remain elevated though fasting blood sugar was better today. Continue home Toujeo and continue RISS and carb consistent diet.. (5) Recurrent deep vein thrombosis (DVT) Status: Chronic Problem Text: Therapeutic on home warfarin. Current dosing schedule for warfarin is 1 mg on Sun, Mon, Wed, Tue, Sat, and 5 mg on , Thurs.. (6) CKD (chronic kidney disease) Status: Chronic Response to Treatment: Stable Problem Specific Plan: Monitor Clinically Problem Text: Cr was mildly elevated upon admission and is now normal. Will monitor. (7) Anxiety Status: Chronic Problem Specific Plan: Monitor Clinically (8) Depression Status: Chronic Problem Specific Plan: Monitor Clinically (9) HTN (hypertension) Status: Chronic Response to Treatment: Stable Problem Specific Plan: Monitor Clinically (10) Factor 5 Leiden mutation, heterozygous Status: Chronic (11) CTS (carpal tunnel syndrome) Status: Acute Problem Text: Pt is s/p right CTS and UTS. Patient states sutures were removed by Dr. Rose on 03/24/17. (12) Chronic back pain Status: Chronic Response to Treatment: Stable Problem Text: Cyclobenzaprine increased to 10 mg QID. Plan/VTE VTE Prophylaxis Ordered?: Yes (warfarin) VTE Exclusion Mechanical Proph: Other (planned surgery) VS, I&O, 24H, Fishbone Vital Signs/I&O Vital Signs Date Time Temp Pulse Resp B/P (MAP) Pulse Ox O2 Delivery O2 Flow Rate FiO2 03/27/17 09:10 18 Room Air 03/27/17 08:28 151/73 03/27/17 06:00 97.6 67 97 03/22/17 21:03 2 I&O- Last 24 Hours up to 6 AM 03/27/17 06:00 Intake Total 1490 ml Output Total 3350 ml Balance -1860 ml Laboratory Data 24H LABS Laboratory Tests 2 03/26/17 16:15: Bedside Glucose (Misc Panel) 366H 03/26/17 20:04: Bedside Glucose (Misc Panel) 322H 03/27/17 06:01: White Blood Count 4.1, Red Blood Count 3.40L, Hemoglobin 9.2L, Hematocrit 27.3L , Mean Corpuscular Volume 80.3, Mean Corpuscular Hemoglobin 27.1, Mean Corpuscular Hemoglobin Concent 33.7, Red Cell Distribution Width 15.5H, Platelet Count 247, Neutrophils (%) (Auto) 54.8, Lymphocytes (%) (Auto) 31.2, Monocytes (%) (Auto) 6.6H, Eosinophils (%) (Auto) 4.1H, Basophils (%) (Auto) 0.5 , Neutrophils # (Auto) 2.3, Lymphocytes # (Auto) 1.4L, Monocytes # (Auto) 0.3, Eosinophils # (Auto) 0.2, Basophils # (Auto) 0.0, Large Unclassified Cells % 2.8 , Large Unclassified Cells # 0.1, Prothrombin Time 24.3H, Prothromb Time International Ratio 2.18, Anion Gap 9, Glomerular Filtration Rate > 60.0, Blood Urea Nitrogen 26H, Creatinine 0.93, Sodium Level 138, Potassium Level 4.5, Chloride Level 101, Carbon Dioxide Level 28, Calcium Level 8.6, Aspartate Amino Transf (AST/SGOT) 11L, Alanine Aminotransferase (ALT/SGPT) 13, Alkaline Phosphatase 113, Total Bilirubin 0.2#, Total Protein 7.0, Albumin 2.3L, Magnesium Level 1.9, Albumin/Globulin Ratio 0.49L 03/27/17 11:49: Bedside Glucose (Misc Panel) 262H CBC/BMP Laboratory Tests 03/27/17 06:01 Red Blood Count 3.40 L, Mean Corpuscular Volume 80.3, Mean Corpuscular Hemoglobin 27.1, Mean Corpuscular Hemoglobin Concent 33.7, Red Cell Distribution Width 15.5 H, Neutrophils (%) (Auto) 54.8, Lymphocytes (%) (Auto) 31.2, Monocytes (%) (Auto) 6.6 H, Eosinophils (%) (Auto) 4.1 H, Basophils (%) ( Auto) 0.5, Neutrophils # (Auto) 2.3, Lymphocytes # (Auto) 1.4 L, Monocytes # ( Auto) 0.3, Eosinophils # (Auto) 0.2, Basophils # (Auto) 0.0, Calcium Level 8.6, Aspartate Amino Transf (AST/SGOT) 11 L, Alanine Aminotransferase (ALT/SGPT) 13, Alkaline Phosphatase 113, Total Bilirubin 0.2 #, Total Protein 7.0, Albumin 2.3 L Microbiology Microbiology 03/21/17 Blood Culture - Final, Complete NO GROWTH AFTER 5 DAYS 03/21/17 Blood Culture - Final, Complete NO GROWTH AFTER 5 DAYS 03/22/17 Wound Culture - Final, Resulted Strep Agalactiae Group B Staphylococcus Aureus Enterococcus Faecalis 03/22/17 Anaerobic Culture, Resulted Pending 03/21/17 Gram Stain - Final, Complete 03/21/17 Wound Culture - Final, Complete Staphylococcus Aureus Strep Agalactiae Group B RIAZ LOPEZ MD Mar 27, 2017 13:13
[2017-03-27 14:00] VITALS: BP 131/81
[2017-03-27] MEDS: WARFARIN SOD 1 MG TAB PO SCH (17:37)
[2017-03-27] MEDS: ERTAPENEM SODIUM 1 GM in NS MINI-BAG PLUS 50 ML IV SCH (21:18)
[2017-03-27] MEDS: QUEtiapine FUMARATE 200 MG TAB PO SCH (21:18)
[2017-03-27] MEDS: SPIRONOLACTONE 25 MG TAB PO SCH (21:20)
[2017-03-27] MEDS: rOPINIRole 1MG TAB PO SCH (21:20)
[2017-03-27] MEDS: traZODone 100 MG TAB PO SCH (21:20)
[2017-03-27] MEDS: FAMOTIDINE 20 MG TAB PO SCH (21:21)
[2017-03-27] MEDS: MONTELUKAST 10 MG TAB PO SCH (21:21)
[2017-03-27 21:34] VITALS: BP 168/88
[2017-03-27] MEDS: ONDANSETRON 4MG/2ML VIAL (J2405) IV PRN (22:14)
[2017-03-28] MEDS: CYCLOBENZAPRINE 10 MG TAB PO PRN ×2 (03:37→09:04)
[2017-03-28] MEDS: NORCO, ANEXSIA 5/325MG TABLET (HYDROcodone/ACETAMINOPHEN) PO PRN ×2 (03:37→09:03)
[2017-03-28 06:00] VITALS: BP 162/78
[2017-03-28 06:11] LABS: INR 2.11
[2017-03-28 06:16] LABS: WHITE BLOOD COUNT 4.7 K/mm3 (4.0-10.0)
[2017-03-28 06:17] LABS: BASO % 0.5 % (0.0-1.0); EOS # 0.2 K/mm3 (0.0-0.50); EOS % 3.2 % (0.0-3.0); LARGE UNSTAINED CELL # 0.1 K/mm3 (0.0-0.4); LARGE UNSTAINED CELL % 2.6 % (0.0-4.0); LYMPH # 1.4 K/mm3 (1.5-4.5); LYMPH % 29.2 % (24.0-44.0); MEAN CORPUSCULAR HEMOGLOBIN 27.2 pg (27.0-33.0); MEAN CORPUSCULAR HGB CONC 33.2 g/dl (32.0-36.5); MEAN CORPUSCULAR VOLUME 81.9 fl (80.0-96.0); MONO # 0.3 K/mm3 (0.0-0.8); NEUTROPHILS # 2.7 K/mm3 (1.8-7.7); NEUTROPHILS % 57.5 % (36.0-66.0); PLATELET COUNT, AUTOMATED 222 k/mm3 (150-450); RED CELL DISTRIBUTION WIDTH 15.4 % (11.5-14.5)
[2017-03-28 06:42] LABS: ALBUMIN 2.3 GM/DL (3.2-5.2); ALBUMIN/GLOBULIN RATIO 0.51 (1.00-1.93); ALKALINE PHOSPHATASE 109 U/L (45-117); ALT/SGPT 14 U/L (12-78); ANION GAP 8 MEQ/L (8-16); AST/SGOT 10 U/L (15-37); BILIRUBIN,TOTAL 0.2 MG/DL (0.2-1.0); BLOOD UREA NITROGEN 31 MG/DL (7-18); CALCIUM LEVEL 8.6 MG/DL (8.5-10.1); CARBON DIOXIDE LEVEL 26 MEQ/L (21-32); CHLORIDE LEVEL 102 MEQ/L (98-107); CREATININE FOR GFR 0.99 MG/DL (0.55-1.02); GLOMERULAR FILTRATION RATE > 60.0 (>58); GLUCOSE, FASTING 380 MG/DL (70-105); MAGNESIUM LEVEL 1.7 MG/DL (1.8-2.4); POTASSIUM SERUM 4.4 MEQ/L (3.5-5.1); SODIUM LEVEL 136 MEQ/L (136-145); TOTAL PROTEIN 6.8 GM/DL (6.4-8.2)
[2017-03-28] MEDS ORDERED: ZYVO100T PO (08:42)
[2017-03-28] MEDS: SYMBICORT 160/4.5MCG INHALER 6GM INH SCH (08:53)
[2017-03-28] MEDS: HumaLOG INSULIN (NovoLOG) PER UNIT SC SCH (09:01)
[2017-03-28] MEDS: PREGABALIN 100 MG CAP (LYRICA) PO SCH (09:02)
[2017-03-28] MEDS: DULoxetine 30 MG CAP (CYMBALTA) PO SCH (09:02)
[2017-03-28] MEDS: OMEPRAZOLE 20 MG CAP PO SCH (09:03)
[2017-03-28] MEDS: CHLORTHALIDONE 12.5MG PER 1/2 TABLET PO SCH (09:03)
[2017-03-28] MEDS: DOCUSATE SODIUM 100 MG CAP PO SCH (09:03)
[2017-03-28 09:04] VITALS: BP 162/78
[2017-03-28] MEDS: BENAZEPRIL 20 MG TAB PO SCH (09:04)
[2017-03-28] MEDS: METOCLOPRAMIDE 5 MG TAB PO SCH (09:04)
[2017-03-28] MEDS: DIVALPROEX 250 MG TAB PO SCH (09:05)
[2017-03-28] MEDS: FERROUS SULFATE 325MG TAB PO SCH (09:05)
[2017-03-28] MEDS: TOUJEO (PATIENT'S OWN MED) SC SCH (09:08)
--- NOTE | 2017-03-28 15:21 | DSES ---
DATE OF ADMISSION: 03/21/2017 DATE OF DISCHARGE: 03/28/2017 ATTENDING PHYSICIAN: Dr. Rashid Morgan PRIMARY CARE PROVIDER: Laxmi Hernandez NP PODIATRY: Dr. Yung Guerra INFECTIOUS DISEASE: Dr. Sourav Scott. HISTORY OF PRESENT ILLNESS: 46-year-old female with past medical history significant for severe osteomyelitis, Charcot foot and left lower extremity ulcer to the foot requiring multiple debridements. Prior to the patient's presentation to the emergency room, the patient had an incident where she woke up and her dog had been chewing on her wound bed. She subsequently was evaluated by her primary care provider, as well as Dr. Guerra and was found to have a significant infection. She was subsequently sent to the emergency room by her bushing and broach operator for evaluation and admission in anticipation of wound debridement. HOSPITALIZATION COURSE: The patient received multiple doses of vitamin K to bring her INR level down to an appropriate value for surgical need. The patient is status post wound debridement on 03/22/2017. Dr. Guerra performed. The patient underwent incisional debridement to the fascia of the left foot without application of wound Vac. Infectious disease was consulted. The patient was placed on ertapenem 1 gram IV every 24 hours and has tolerated that well. Wound culture returned with three different organisms, Group B streptococcus (GBS), Staphylococcus aureus and Enterococcus faecalis. Blood sugars have remained stable throughout hospitalization. INR has remained stable. The patient is tolerating oral intake well and has remained afebrile and denies complaints today. The patient did have a MRI of the left foot to rule out osteomyelitis and it was truly negative. It did show severe neuropathic joint disease with collapse of the tarsal arch and fragmentation. PHYSICAL EXAMINATION: VITAL SIGNS: Blood pressure is stable at 160/70, heart rate 68, temperature 97.6, oxygen saturation 95% on room air. HEENT: Neck is supple without lymphadenopathy or jugular venous distention (JVD). CARDIOVASCULAR: Heart regular rate and rhythm. PULMONARY: Lungs are clear to auscultation bilaterally. ABDOMEN: Soft and nontender. EXTREMITIES: Bilateral lower extremities are without any significant edema. She does have the left lower extremity with the wound Vac in place and is draining a clear, brownish colored drainage. DISCHARGE DIAGNOSES: 1. Left diabetic foot ulcer, actively infected. 2. Charcot foot. 3. Diabetes. SECONDARY DIAGNOSES: 1. Recurrent deep vein thrombosis (DVT). 2. Chronic kidney disease. 3. Anxiety. 4. Depression. 5. Hypertension. 6. Factor V Leiden mutation. 7. Carpal tunnel syndrome. 8. Chronic back pain. DISCHARGE PLAN: The patient will be discharged home. Diet is carbohydrate consistent. Activity is as tolerated. She will followup with Dr. Guerra as per his recommendations. She will followup with me in the office within the next 7 days. She will continue with her wound Vac at home, which has already been set up prior to her hospitalization. MEDICATIONS: - linezolid 600 mg by mouth twice a day - hydrocodone with acetaminophen 10/325 one by mouth every four hours as needed for pain - Ventolin HFA two puffs every four hours as needed for wheezing - alprazolam 1 mg tablet by mouth four times a day as needed for anxiety - benazepril 40 mg by mouth daily - Symbicort two puffs twice a day - chlorthalidone 12.5 mg by mouth daily - Dicyclomine 10 mg by mouth three times a day as needed for abdominal cramps - Depakote 250 mg by mouth twice a day - Docusate sodium 100 mg by mouth daily - duloxetine 60 mg by mouth in the morning - duloxetine 30 mg by mouth at night - EpiPen as needed for allergic reaction - Eszopiclone 3 mg by mouth at night - ferrous sulfate 325 mg by mouth daily - furosemide 40 mg by mouth twice a day as needed for edema - Humalog quick pen subcutaneous before meals - Xiidra 5% drops one drop both eyes twice a day - lopiramide 2 mg tablet by mouth every four hours as needed for diarrhea - Reglan 5 mg by mouth three times a day - Singulair 10 mg by mouth at night - Nystatin 100,000 units per gram powder one dose topically three times a day as needed for rash - omeprazole 40 mg by mouth twice a day - Lyrica 300 mg by mouth twice a day - Seroquel 300 mg tablets two by mouth at night - Zantac 150 mg by mouth at night - ropinirole 4 mg by mouth at night - spironolactone 25 mg by mouth at night - Toujeo SoloStar 100 units subcutaneous at night - Toujeo SoloStar 125 units subcutaneously in the morning - trazodone 100 mg by mouth at night - warfarin sodium 5 mg tablets with 1 mg tablets as directed by primary care provider - yeast 250 mg capsule by mouth daily The patient is discharged in stable, satisfactory condition with no further questions at the time of discharge.
== END 2017-03-28 12:17 | disposition home or self-care (01) | DRG 622 ==
LOC: M MSPAV 14:20
PROVIDERS: ADMIT Hospitalist; ATTEND Family Medicine
PROC: 0JBR0ZZ Excision of Left Foot Subcutaneous Tissue and Fascia, Open Approach (ICD-10-PCS; principal; 2017-03-22 16:32)
DX: E11.621 Type 2 diabetes mellitus with foot ulcer (principal); E43 Unspecified severe protein-calorie malnutrition; D68.2 Hereditary deficiency of other clotting factors; E85.9 Amyloidosis, unspecified; E11.610 Type 2 diabetes mellitus with diabetic neuropathic arthropathy; B95.1 Streptococcus, group B, as the cause of diseases classified elsewhere; I12.9 Hypertensive chronic kidney disease with stage 1 through stage 4 chronic kidney disease, or unspecified chronic kidney disease; Z79.899 Other long term (current) drug therapy; B95.2 Enterococcus as the cause of diseases classified elsewhere; N18.9 Chronic kidney disease, unspecified; M54.5 Low back pain; F41.9 Anxiety disorder, unspecified; F31.9 Bipolar disorder, unspecified; Z79.82 Long term (current) use of aspirin; E78.5 Hyperlipidemia, unspecified; I95.9 Hypotension, unspecified; E86.0 Dehydration; R10.9 Unspecified abdominal pain; E83.42 Hypomagnesemia; J44.9 Chronic obstructive pulmonary disease, unspecified; K21.9 Gastro-esophageal reflux disease without esophagitis; Z79.4 Long term (current) use of insulin; Z88.5 Allergy status to narcotic agent; Z88.2 Allergy status to sulfonamides; Z88.8 Allergy status to other drugs, medicaments and biological substances; Z88.0 Allergy status to penicillin; Z91.040 Latex allergy status; Z86.718 Personal history of other venous thrombosis and embolism; M79.7 Fibromyalgia; Z91.19 Patient's noncompliance with other medical treatment and regimen; G47.33 Obstructive sleep apnea (adult) (pediatric); G25.81 Restless legs syndrome; L97.529 Non-pressure chronic ulcer of other part of left foot with unspecified severity; Q76.0 Spina bifida occulta; L40.8 Other psoriasis; K76.0 Fatty (change of) liver, not elsewhere classified; E66.01 Morbid (severe) obesity due to excess calories

== ENCOUNTER 2017-04-12 15:24 | Inpatient (IN) | payer OTHER ==
[~2017-04-12] VITALS: Ht 177.8 cm; Wt 118.4 kg
[~2017-04-12 15:24] MED LIST changes: -CYCL10TA PO; -FLON1SPR; -SERT50TA PO; -TORS10TA3 PO; -VERA40TA PO; -ZOFR20TA PO
--- NOTE | 2017-04-12 16:53 | REP ---
Clinical: Preoperative assessment . Comparison: 11/02/2016 . Findings: The mediastinum and cardiac silhouette are stable and within normal limits for portable technique. Airway is midline and patent. The lung juarez are clear without acute consolidation, effusion, or pneumothorax. Skeletal structures are intact. Impression: Normal portable chest x-ray Signed by Clint Sullivan MD 04/12/2017 04:45 P
[2017-04-12] MEDS ORDERED: FLON1SPR (16:56)
[2017-04-12] MEDS ORDERED: CYCL10TA PO (16:56)
[2017-04-12] MEDS ORDERED: ZOFR20TA PO (16:56)
[2017-04-12 17:46] LABS: BASO # 0.1 K/mm3 (0.0-0.2); BASO % 0.6 % (0.0-1.0); EOS # 0.3 K/mm3 (0.0-0.50); EOS % 2.8 % (0.0-3.0); LARGE UNSTAINED CELL # 0.2 K/mm3 (0.0-0.4); LYMPH # 2.1 K/mm3 (1.5-4.5); LYMPH % 17.9 % (24.0-44.0); MEAN CORPUSCULAR HEMOGLOBIN 26.4 pg (27.0-33.0); MEAN CORPUSCULAR HGB CONC 32.9 g/dl (32.0-36.5); MEAN CORPUSCULAR VOLUME 80.4 fl (80.0-96.0); MONO # 0.5 K/mm3 (0.0-0.8); MONO % 4.4 % (0.0-5.0); NEUTROPHILS # 8.2 K/mm3 (1.8-7.7); NEUTROPHILS % 72.2 % (36.0-66.0); PLATELET COUNT, AUTOMATED 369 k/mm3 (150-450); RED CELL DISTRIBUTION WIDTH 14.6 % (11.5-14.5); WHITE BLOOD COUNT 11.4 K/mm3 (4.0-10.0)
[2017-04-12 17:52] LABS: INR 3.89
[2017-04-12] MEDS ORDERED: NORCO, ANEXSIA 5/325MG TABLET (HYDROcodone/ACETAMINOPHEN) PO ONE (18:15)
[2017-04-12 18:25] LABS: CALCIUM LEVEL 8.8 MG/DL (8.5-10.1); CREATININE FOR GFR 1.99 MG/DL (0.55-1.02); GLOMERULAR FILTRATION RATE 28.6 (>58); POTASSIUM SERUM 4.2 MEQ/L (3.5-5.1)
[2017-04-12] MEDS ORDERED: TOUJEO SOLOSTAR (PATIENT'S OWN MED) SC SCH (21:00)
[2017-04-12] MEDS: SYMBICORT 160/4.5MCG INHALER 6GM INH SCH (21:00)
[2017-04-12] MEDS ORDERED: ACETAMINOPHEN TAB 650MG DOSE (2X325MG) PO PRN (22:30)
[2017-04-12] MEDS ORDERED: GLUCAGON FOR INJ 1 MG VIAL (J1610) SC PRN (22:45)
[2017-04-12] MEDS ORDERED: FLUTICASONE PROP 0.05% NASAL SPRAY 16 GM (FLONASE) PRN (22:45)
[2017-04-12] MEDS ORDERED: ALBUTEROL 90 MCG/ACT 8GM HFA INHALER INH PRN (22:45)
[2017-04-12] MEDS ORDERED: DICYCLOMINE 10 MG CAP PO PRN (22:45)
[2017-04-12] MEDS ORDERED: NYSTATIN 100,000 UNITS/GM TOPICAL PWD 15 GM TOP PRN (22:45)
[2017-04-12] MEDS ORDERED: GLUCOSE 4 GM CHEW TABLET PO PRN (22:45)
[2017-04-12] MEDS ORDERED: ONDANSETRON 4 MG TAB (S0181) PO PRN (22:45)
[2017-04-12] MEDS ORDERED: DEXTROSE 50% 50 ML SYRINGE IV PRN (22:45)
[2017-04-12] MEDS ORDERED: VANCOMYCIN HCL 1,000 MG, VIAL MATE ADAPTER 1 EACH in D5W 250 ML IV ONE (23:45)
[2017-04-13] MEDS ORDERED: ERTAPENEM SODIUM 1 GM in NS MINI-BAG PLUS 50 ML IV SCH ×4
--- NOTE | 2017-04-13 00:18 | HPE ---
DATE OF ADMISSION: 04/12/2017 PRIMARY CARE PROVIDER: Dr. Zion Pastrana ATTENDING PHYSICIAN: Dr. Zion Pastrana CHIEF COMPLAINT: Worsening infection of left foot. HISTORY OF THE PRESENT ILLNESS: The patient is a 46-year-old white female with multiple chronic medical conditions including diabetes as well as morbid obesity, came to the emergency room (ER) for evaluation of worsening infection in her left foot. History provided by herself as well as by review of the chart. Per patient, she has a history of diabetic neuropathy, and she has chronic osteomyelitis in her left foot and has had multiple surgical debridements in the past. She had been hospitalized here recently from 03/21/2017 to 03/28/2017. In that admission, she was consulted with the cleaner furniture as well as infectious disease (ID). She underwent debridement by cleaner furniture. She was treated with intravenous (IV) antibiotics Invanz. She was discharged home with 10 days of Zyvox, which she just finished and she states she went to see Dr. Guerra, who is her cleaner furniture, and Dr. Guerra recommended her to come to the hospital for IV antibiotics since her left foot infection is getting worse.She denies any fever. PAST MEDICAL HISTORY: 1. Type 2 diabetes. 2. Hypertension. 3. Factor V Leiden deficiency and deep vein thrombosis (DVT), on Coumadin. 4. Asthma, chronic obstructive pulmonary disease (COPD). 5. Obstructive sleep apnea, noncompliant with continuous positive airway pressure (CPAP). 6. Diabetic neuropathy. 7. Restless leg syndrome. 8. Acid reflux. 9. Fibromyalgia. 10. Chronic back pain. 11. Bipolar disorder. 12. Morbid obesity. PAST SURGICAL HISTORY: Cholecystectomy. Cervical discectomy and fusion. Hysterectomy. Lumpectomy of right breast. Appendectomy. Stool transplant. Bilateral temporomandibular joint surgery. Multiple debridement of her left foot. FAMILY HISTORY: Positive for diabetes, coronary artery disease and hypertension. SOCIAL HISTORY: Denies tobacco use, denies alcohol abuse, denies illicit drug abuse and she lives with her . She is a [employer]. ALLERGIES: Allergic to CLINDAMYCIN, LATEX, METFORMIN, MORPHINE, PENICILLIN, SULFA. MEDICATIONS: Reviewed. REVIEW OF SYSTEMS: Denies fevers. Positive chills. No headache, no blurred vision. No shortness of breath. No wheezing. No nausea, no vomiting. No abdominal pain. No diarrhea. All other systems reviewed but negative. PHYSICAL EXAMINATION: VITAL SIGNS: Temperature is 97.3, heart rate 89, respirations 18, blood pressure 118/60 and oxygen saturation is 94% on room air. GENERAL: She is awake, alert, oriented times three. She is not in acute distress. She is obese. HEENT: Atraumatic. Pupils are equal, round, reactive to light. No jaundice. Extraocular muscles are intact. Ears, nose and throat are normal. No ulcer. Mouth: Mucosa moist. LUNGS: Clear. No wheezing, no crackles. HEART; S1, S2 regular. No murmur. ABDOMEN: Soft. Bowel sounds positive, nontender. LOWER EXTREMITIES: No edema in her bilateral lower extremities, and there is a big ulcer about 10 x 10 cm size deep ulcer in the bottom of her left foot with bad smell. The bone can be seen. No purulent drainage. NEUROLOGIC: Nonfocal. PSYCHOLOGIC: No acute psychosis. SKIN: No rash. DIAGNOSTIC AND LAB STUDIES: CBC and differential showed WBC 9.4, hemoglobin and hematocrit 10.8 over 32.9, platelets 369. Sodium is 135, potassium 4.2, BUN 26, creatinine is 1.99 and INR 3.87. IMPRESSION: 1. Left diabetic foot with osteomyelitis. 2. Type 2 diabetes. 3. Acute renal failure. 4. History of deep vein thrombosis (DVT), on Coumadin. 5. Hypertension. 6. Diabetic neuropathy. 7. Morbid obesity. PLAN: The patient will be admitted to medical-surgical floor. I will start her with IV vancomycin as well as IV Invanz for broad coverage, and will follow her wound cultures which were done in Dr. Guerra's office today. Will consult cleaner furniture, Dr. Guerra, as well as infectious disease, Dr. Scott, and she has acute increase in the creatinine which may be due to dehydration, I will gently hydrate her with normal saline. We will followup creatinine tomorrow. We will hold her Lasix as well as angiotensin-converting enzyme (MAXINE) inhibitors and can be restarted after normalized creatinine. Her INR today is 3.8. I will hold Coumadin, and we will recheck INR tomorrow and may restart Coumadin on the INR. Her other medical issues are chronic and stable. I will continue her home medications. And Dr. [facility] will followup tomorrow. MTDD
[2017-04-13 00:25] VITALS: BP 130/63
[2017-04-13] MEDS: PREGABALIN 100 MG CAP (LYRICA) PO SCH ×3 (00:56→21:45)
[2017-04-13] MEDS: rOPINIRole 1MG TAB PO SCH ×2 (00:56→21:45)
[2017-04-13] MEDS: FAMOTIDINE 20 MG TAB PO SCH ×2 (00:57→21:45)
[2017-04-13] MEDS: MONTELUKAST 10 MG TAB PO SCH ×2 (00:57→21:43)
[2017-04-13] MEDS: ALPRAZolam 0.5 MG TAB PO PRN ×3 (00:57→21:57)
[2017-04-13] MEDS: traZODone 100 MG TAB PO SCH ×2 (00:57→21:44)
[2017-04-13] MEDS: DOCUSATE SODIUM 100 MG CAP PO SCH ×4 (00:57→21:53)
[2017-04-13] MEDS: OMEPRAZOLE 20 MG CAP PO SCH ×3 (00:57→21:43)
[2017-04-13] MEDS: DULoxetine 30 MG CAP (CYMBALTA) PO SCH ×3 (00:57→21:44)
[2017-04-13] MEDS: SPIRONOLACTONE 25 MG TAB PO SCH ×2 (00:57→21:44)
[2017-04-13] MEDS: NS 1,000 ML IV SCH ×2 (00:58→11:47)
[2017-04-13] MEDS: DIVALPROEX 250 MG TAB PO SCH ×3 (01:37→21:44)
[2017-04-13] MEDS: SYMBICORT 160/4.5MCG INHALER 6GM INH SCH ×3 (01:37→19:15)
[2017-04-13] MEDS: ANEXSIA, NORCO 7.5MG/325MG TABLET(HYDROCODONE/APAP) PO PRN ×4 (01:48→19:05)
--- NOTE | 2017-04-13 05:39 | PHACANCOPD ---
PHARMACY VANCOMYCIN DOSING Pt Demographics Demographics Patient Age:46 , Weight:118.400 , Gender: female Adjusted Body Weight Date: 04/13/17, Adjusted Body Weight: [89.02] Kg Vancomycin Vancomycin indication: L.FOOT OSTEOMYELITIS Vancomycin Target Ranges: 10-20 mcg/ml Vancomycin Load Y/N: No Load Dose Date Time Vancomycin Load Dose: Date: Time: Vancomycin Dose Date: 04/13/17. Current Vancomycin Dose: [1GM @0100 04/13,then 1GM Q18H@14] Intermittent Dosing?: No Labs Labs Laboratory Tests 04/12/17 17:33 Red Blood Count 4.09, Mean Corpuscular Volume 80.4, Mean Corpuscular Hemoglobin 26.4 L, Mean Corpuscular Hemoglobin Concent 32.9, Red Cell Distribution Width 14.6 H, Neutrophils (%) (Auto) 72.2 H, Lymphocytes (%) (Auto) 17.9 L, Monocytes (%) (Auto) 4.4, Eosinophils (%) (Auto) 2.8, Basophils (%) (Auto) 0.6, Neutrophils # (Auto) 8.2 H, Lymphocytes # (Auto) 2.1, Monocytes # (Auto) 0.5, Eosinophils # (Auto) 0.3, Basophils # (Auto) 0.1, Calcium Level 8.8 Micro Microbiology 04/12/17 Blood Culture, Received Pending 04/12/17 Blood Culture, Received Pending Creatinine Clearance Date:04/13/17. Creatinine Clearance: [49.1].calculated Pending Labs Vancomycin trough due 04/14@0700 Assessment and Plan Maintaining Current Dose?: Yes Reason for dose change: No Dose Change Pharmacist Note Pharmacist Note Date: 04/13/17. Pharmacist note:[id number] admitted w/L.foot osteomyelitiis:119.8 KG( ABW=89.02 kg)SCR=1.99 (CRCL=49.1 calculated).Allergies:PCN<Clindamycin,Sulfa- Treated w/ertapenem 1 GM Q24H and Vancomycin per consult: Administered 1 GM@ @0100,then continued w/1 Gram iv Q18H@14: 1st trough will be drawn prior to the third dose (04/14@0700)will continue to follow levels and labs [facility] Apr 13, 2017 05:39
[2017-04-13 06:00] VITALS: BP 134/72
[2017-04-13 06:55] LABS: CALCIUM LEVEL 8.5 MG/DL (8.5-10.1); CREATININE FOR GFR 1.64 MG/DL (0.55-1.02); GLOMERULAR FILTRATION RATE 35.7 (>58); POTASSIUM SERUM 4.7 MEQ/L (3.5-5.1)
[2017-04-13] MEDS: METOCLOPRAMIDE 5 MG TAB PO SCH ×3 (08:35→17:08)
[2017-04-13] MEDS: FERROUS SULFATE 325MG TAB PO SCH (08:35)
[2017-04-13] MEDS: HumaLOG INSULIN (NovoLOG) PER UNIT SC SCH ×3 (08:38→17:11)
[2017-04-13] MEDS ORDERED: TOUJEO SOLOSTAR (PATIENT'S OWN MED) SC SCH (09:00)
[2017-04-13 10:33] LABS: INR 3.73
[2017-04-13 10:40] LABS: BASO % 0.4 % (0.0-1.0); EOS # 0.2 K/mm3 (0.0-0.50); EOS % 2.6 % (0.0-3.0); LARGE UNSTAINED CELL # 0.1 K/mm3 (0.0-0.4); LARGE UNSTAINED CELL % 0.9 % (0.0-4.0); LYMPH % 16.7 % (24.0-44.0); MEAN CORPUSCULAR HEMOGLOBIN 26.1 pg (27.0-33.0); MEAN CORPUSCULAR HGB CONC 32.5 g/dl (32.0-36.5); MEAN CORPUSCULAR VOLUME 80.3 fl (80.0-96.0); MONO # 0.3 K/mm3 (0.0-0.8); MONO % 5.2 % (0.0-5.0); NEUTROPHILS # 4.4 K/mm3 (1.8-7.7); NEUTROPHILS % 74.2 % (36.0-66.0); RED CELL DISTRIBUTION WIDTH 14.7 % (11.5-14.5); WHITE BLOOD COUNT 5.9 K/mm3 (4.0-10.0)
[2017-04-13 10:57] LABS: PLATELET COUNT, AUTOMATED 266 k/mm3 (150-450)
[2017-04-13] MEDS: TOUJEO 300 UNIT/ML SC SCH (10:57)
[2017-04-13 14:00] VITALS: BP 152/78
[2017-04-13] MEDS ORDERED: VANCOMYCIN HCL 1,000 MG, VIAL MATE ADAPTER 1 EACH in D5W 250 ML IV SCH (14:00)
--- NOTE | 2017-04-13 16:38 | IPNPDOC ---
Subjective Date Seen The patient was seen on 04/13/17. Subjective Chief Complaint/HPI The patient is a 46-year-old female admitted with a reason for visit of Diabetic Foot Ulcer. Events since last encounter Patient states she still has pain in left foot, as well as increased redness and swelling since stopping Zyvox. She verbalizes understanding that at some point, she may need an amputation and she is tearful when discussing this. She lost her IV site earlier today and nursing has been unable to get another peripheral line. Constitutional: Denies: Chills, Fever Pulmonary: Denies: Dyspnea, Cough Cardiovascular: Denies: Chest Pain Gastrointestinal: Denies: Nausea, Vomiting, Abdominal Pain Genitourinary: Denies: Dysuria Objective Physical Examination General Exam: Positive: Alert, Cooperative Eye Exam: Positive: Conjunctiva & lids normal ENT Exam: Positive: Atraumatic, Mucous membr. moist/pink Chest Exam: Positive: Clear to auscultation, Normal air movement Heart Exam: Positive: Rate Normal, Regular Rhythm, Normal S1, Normal S2 Extremity Exam: Positive: Tenderness, Swelling (Large open wound on plantar surface of left foot with surrounding redness, swelling and tenderness to palpation) Assessment /Plan Problems (1) Diabetic foot ulcer Status: Chronic Response to Treatment: Worse Problem Specific Plan: Consult Specialist Problem Text: Patient has increased warmth, redness, swelling around chronic ulcer. She states she finished a course of zyvox 1 week ago and since then, she has had progressively worsening pain around ulcer. We have not been able to maintain a peripheral IV line on her - she is a very difficult stick. In the past, she has had infected PICC lines, IJ lines, and ports. I discussed the case with Dr. Scott, who recommended restarting her on Zyvox. Consults were placed to Dr. Guerra and Dr. Scott. (2) Diabetes 1.5, managed as type 1 Status: Chronic Response to Treatment: Stable Problem Text: Poorly controlled in the hospital and at baseline. Continue her home Toujeo and sliding scale. (3) History of DVT (deep vein thrombosis) Status: Chronic Response to Treatment: Stable Problem Text: Coumadin being held due to her being supratherapeutic today. (4) Acute kidney injury Status: Acute Response to Treatment: Improving Problem Text: Improving; ACEi and lasix are being held. (5) HTN (hypertension) Status: Chronic Response to Treatment: Worse Problem Text: BP mildly elevated this afternoon, likely due to ACEi and lasix being held due to MELODY. Continue to monitor. Plan/VTE VTE Prophylaxis Ordered?: No VTE Exclusion Pharmacological: Other (supratherapeutic INR) VS, I&O, 24H, Fishbone Vital Signs/I&O Vital Signs Date Time Temp Pulse Resp B/P (MAP) Pulse Ox O2 Delivery O2 Flow Rate FiO2 04/13/17 14:00 98.3 86 18 152/78 (102) 96 Room Air I&O- Last 24 Hours up to 6 AM 04/13/17 06:00 Intake Total 870 ml Output Total 600 ml Balance 270 ml Laboratory Data 24H LABS Laboratory Tests 2 04/12/17 17:33: White Blood Count 11.4H, Red Blood Count 4.09, Hemoglobin 10.8L, Hematocrit 32.9L, Mean Corpuscular Volume 80.4, Mean Corpuscular Hemoglobin 26.4L, Mean Corpuscular Hemoglobin Concent 32.9, Red Cell Distribution Width 14.6H, Platelet Count 369, Neutrophils (%) (Auto) 72.2H, Lymphocytes (%) (Auto) 17.9L, Monocytes (%) (Auto) 4.4, Eosinophils (%) (Auto) 2.8, Basophils (%) (Auto) 0.6, Neutrophils # (Auto) 8.2H, Lymphocytes # (Auto) 2.1, Monocytes # (Auto) 0.5, Eosinophils # (Auto) 0.3, Basophils # (Auto) 0.1, Large Unclassified Cells % 2.0 , Large Unclassified Cells # 0.2, Prothrombin Time 38.1H, Prothromb Time International Ratio 3.89, Anion Gap 9, Glomerular Filtration Rate 28.6L, Blood Urea Nitrogen 26H, Creatinine 1.99H, Sodium Level 135L, Potassium Level 4.2, Chloride Level 98, Carbon Dioxide Level 28, Calcium Level 8.8, Valproic Acid ( Depakene) Level 14.0L 04/13/17 00:58: Bedside Glucose (Misc Panel) 361H 04/13/17 05:55: Anion Gap 11, Glomerular Filtration Rate 35.7L, Blood Urea Nitrogen 31H, Creatinine 1.64H, Sodium Level 133L, Potassium Level 4.7, Chloride Level 98, Carbon Dioxide Level 24, Calcium Level 8.5, Vancomycin Level Trough 3.2L 04/13/17 10:16: White Blood Count 5.9, Red Blood Count 4.06, Hemoglobin 10.6L, Hematocrit 32.6L , Mean Corpuscular Volume 80.3, Mean Corpuscular Hemoglobin 26.1L, Mean Corpuscular Hemoglobin Concent 32.5, Red Cell Distribution Width 14.7H, Platelet Count 266#, Neutrophils (%) (Auto) 74.2H, Lymphocytes (%) (Auto) 16.7L , Monocytes (%) (Auto) 5.2H, Eosinophils (%) (Auto) 2.6, Basophils (%) (Auto) 0.4, Neutrophils # (Auto) 4.4, Lymphocytes # (Auto) 1.0L, Monocytes # (Auto) 0.3 , Eosinophils # (Auto) 0.2, Basophils # (Auto) 0.0, Large Unclassified Cells % 0.9, Large Unclassified Cells # 0.1, Prothrombin Time 36.9H, Prothromb Time International Ratio 3.73 04/13/17 11:54: Bedside Glucose (Misc Panel) 458H CBC/BMP Laboratory Tests 04/12/17 17:33 Red Blood Count 4.09, Mean Corpuscular Volume 80.4, Mean Corpuscular Hemoglobin 26.4 L, Mean Corpuscular Hemoglobin Concent 32.9, Red Cell Distribution Width 14.6 H, Neutrophils (%) (Auto) 72.2 H, Lymphocytes (%) (Auto) 17.9 L, Monocytes (%) (Auto) 4.4, Eosinophils (%) (Auto) 2.8, Basophils (%) (Auto) 0.6, Neutrophils # (Auto) 8.2 H, Lymphocytes # (Auto) 2.1, Monocytes # (Auto) 0.5, Eosinophils # (Auto) 0.3, Basophils # (Auto) 0.1, Calcium Level 8.8 04/13/17 05:55 Calcium Level 8.5 04/13/17 10:16 Red Blood Count 4.06, Mean Corpuscular Volume 80.3, Mean Corpuscular Hemoglobin 26.1 L, Mean Corpuscular Hemoglobin Concent 32.5, Red Cell Distribution Width 14.7 H, Neutrophils (%) (Auto) 74.2 H, Lymphocytes (%) (Auto) 16.7 L, Monocytes (%) (Auto) 5.2 H, Eosinophils (%) (Auto) 2.6, Basophils (%) (Auto) 0.4, Neutrophils # (Auto) 4.4, Lymphocytes # (Auto) 1.0 L, Monocytes # (Auto) 0.3, Eosinophils # (Auto) 0.2, Basophils # (Auto) 0.0 Microbiology Microbiology 04/12/17 Blood Culture, Received Pending 04/12/17 Blood Culture, Received Pending RIAZ LOPEZ MD Apr 13, 2017 16:31
[2017-04-13] MEDS ORDERED: HumaLOG INSULIN (NovoLOG) PER UNIT SC STA ×2 (16:58→18:47)
[2017-04-13] MEDS ORDERED: ENTER DRUG NAME HERE (PATIENT'S OWN MED) SQ SCH (21:00)
[2017-04-13] MEDS ORDERED: TOUJEO 300 UNIT/ML SQ SCH (21:00)
[2017-04-13] MEDS ORDERED: TOUJEO 300 UNIT/ML SC SCH (21:00)
[2017-04-13] MEDS ORDERED: HumaLOG INSULIN (NovoLOG) PER UNIT SC SCH (21:00)
[2017-04-13] MEDS: LINEZOLID 600MG TABLET (ZYVOX) PO SCH (21:45)
[2017-04-13 22:00] VITALS: BP 180/70
[2017-04-14] VITALS: BP 152/82
[2017-04-14] MEDS: NS 1,000 ML IV SCH ×2 (01:12→14:27)
[2017-04-14] MEDS: ANEXSIA, NORCO 7.5MG/325MG TABLET(HYDROCODONE/APAP) PO PRN ×3 (05:45→13:39)
[2017-04-14 06:00] VITALS: BP 160/80
[2017-04-14] MEDS ORDERED: INSULIN LISPRO SC SCH ×3 (07:30→17:30)
[2017-04-14] MEDS: SYMBICORT 160/4.5MCG INHALER 6GM INH SCH (07:52)
[2017-04-14] MEDS: FERROUS SULFATE 325MG TAB PO SCH (09:24)
[2017-04-14] MEDS: OMEPRAZOLE 20 MG CAP PO SCH (09:24)
[2017-04-14] MEDS: DOCUSATE SODIUM 100 MG CAP PO SCH (09:24)
[2017-04-14] MEDS: PREGABALIN 100 MG CAP (LYRICA) PO SCH (09:25)
[2017-04-14] MEDS: DULoxetine 30 MG CAP (CYMBALTA) PO SCH (09:25)
[2017-04-14] MEDS: DIVALPROEX 250 MG TAB PO SCH (09:25)
[2017-04-14] MEDS: LINEZOLID 600MG TABLET (ZYVOX) PO SCH (09:26)
[2017-04-14] MEDS: METOCLOPRAMIDE 5 MG TAB PO SCH ×2 (09:26→12:30)
[2017-04-14] MEDS: TOUJEO 300 UNIT/ML SC SCH (09:28)
[2017-04-14] MEDS ORDERED: ZYVO100T PO (10:07)
[2017-04-14 11:09] LABS: INR 2.54
[2017-04-14] MEDS: ALPRAZolam 0.5 MG TAB PO PRN (11:54)
--- NOTE | 2017-04-14 13:50 | CR ---
DATE OF CONSULTATION: 04/13/2017 I was asked to consult by Dr. Mireille Quijano for evaluation of chronic foot infection. Recent admission on March 21, discharged on March 28 when the patient had an admission for similar findings. She had a left foot culture that had positive growth for Methicillin-sensitive staphylococcus aureus (MSSA), group B strep. E. faecalis and corynebacterium. 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 There is diffuse soft tissue edema. The patient was discharged home on oral Zyvox on March 28 which she took for 10 days. She finished a prescription on April 07. She was seen by Dr. Guerra on 04/12 and he felt that the infection was worse. The wound Cac was not keeping a good seal and therefore he recommended admission. She denied any fever. She had chills. No nausea, vomiting or diarrhea. No cough or shortness of breath. The patient is frustrated by the lack of healing and thinks that she is ready for an amputation of the left foot. PAST MEDICAL HISTORY: Significant for: Insulin-dependent diabetes, poor control. Bipolar disorder with major depression. Asthma. Chronic obstructive pulmonary disease (COPD). Obstructive sleep apnea noncompliant with C-PAP. Diabetic neuropathy with Charcot arthropathy. Restless leg syndrome. Gastroesophageal reflux disease, Fibromyalgia. Lumbar spondylosis with spinal stenosis. Obsessive-compulsive disorder. Spina bifida occulta. Psoriasis. Gastroesophageal reflux disease. Fatty liver, Mild hypogammaglobulinemia. PAST SURGICAL HISTORY: Cholecystectomy Cervical discectomy and fusion. Hysterectomy. Lumpectomy right breast. Appendectomy. Multiple Port-A-Cath placement and infections and therefore I recommended against placing central lines due to her recurrent infection. Colonoscopy for stool transplantation. Ulnar release of the right elbow and right culture tunnel surgery done February 2017. FAMILY HISTORY: Diabetes, heart disease and hypertension. Her mother is in the fpc at [facility] with dementia. SOCIAL HISTORY: She is . She lives with her . She does not smoke. She has a caregiver who helps around the house. ALLERGIES: CLINDAMYCIN, FENOFIBRATE, LATEX, METFORMIN, MORPHINE, PENICILLIN, SULFA and CEPHALOSPORINS. She tolerates carbapenems. REVIEW OF SYSTEMS: She has no fever but had chills the day prior to admission. No headache. No nausea, vomiting or diarrhea. She has chronic foot pain. Has a mild cough at night. She has chronic back pain and low back pain, chronic neuropathy and numbness of both feet. MEDICATIONS: - Linezolid 600 mg by mouth twice daily - vancomycin 1 gram IV every 8 hours, that was not administered due to the lack of IV - Colace 100 mg by mouth twice daily - Cymbalta 60 mg by mouth daily - ferrous sulfate 325 mg daily - Reglan 5 mg by mouth with meals - hydrocodone one tablet by mouth every 4 hours as needed - albuterol two puffs every 4 as needed - alprazolam 1 mg by mouth four times daily as needed - Bentyl 10 mg by mouth three times daily - Nystatin under breasts - Zofran as needed - Symbicort two puffs inhaled twice daily - Depakote 250 mg by mouth twice daily - Cymbalta 30 mg by mouth daily at bedtime - Lyrica 300 mg by mouth twice daily - Requip 4 mg by mouth daily at bedtime - aldactone 25 mg by mouth daily at bedtime - trazodone 100 mg by mouth daily at bedtime - Singulair 10 mg by mouth daily at bedtime LABORATORY DATA: White count was 11.4 yesterday. Today was 5.9, hemoglobin 10.6 , hematocrit 32.6, platelets 266. 74% neutrophils, 16% lymphocytes, 5% monocytes. Sodium is 133, potassium 4.7, chloride 98, bicarb 24, BUN 31, creatinine 1.64, glucose 359, calcium 8.5, CRP is 7.79. Previous admission was 8.21, on discharge was 3.36. Wound culture done at Dr. Guerra's office is pending. Blood cultures two sets on 04/12 were no growth. PHYSICAL EXAMINATION: Healthy-looking female in no acute distress. Heart: Normal S1, S2. No murmurs, rubs or gallops. Lungs: Few expiratory wheezes bilaterally. Abdomen is soft, obese, nontender. Breasts: Very large, no open sores. Extremities: Right foot has reamputation of the fifth toe with no open ulcers, +1 dorsalis previous pulse. There is Charcot deformity left foot. There is Charcot deformity with a large ulcer measuring 8 x 5 cm with a central deeper area that has mild serosanguineous discharge. There is surrounding erythema with cellulitis. IMPRESSION: This is a 46-year-old female with chronic diabetic foot ulcer with persistent infection due to Methicillin-sensitive staphylococcus aureus (MSSA) group B strep most predominately and previous culture had E. faecalis. The patient did well with oral Zyvox but when she ran out, she had recurrent infection. She could not keep the wound Vac with a good seal and therefore she was not able to keep it on. The patient follows up with Dr. Guerra who recommended that she sees Dr. Reis. The patient is wondering whether it is time for an amputation. PLAN: I do not see any sign of systemic infection. Most likely the infection is again due to gram positive Methicillin-sensitive staphylococcus aureus (MSSA) group B. I would suggest restarting linezolid for at least 14 days and refill. The patient has asked multiple questions about having a below-knee amputation which I think is a valid option at this point. The patient has had this nonhealing ulcer for over 2 years with a Charcot arthropathy. The chances that this will heal is very unlikely. I have discussed the case with Dr. Quijano and Dr. Morgan as well as Dr. Guerra. Dr. Guerra would like to give her one more chance before amputation, to follow up with Dr. Reis first. Plan start oral Zyvox 600 mg twice daily. Do not place an IV. The patient could be discharged home on oral Zyvox until decision is made whether this ulcer will heel with Dr. Reis, wound clinic, or she will pursue a below-knee amputation. [facility]HELLE HOSPITALMichelle
--- NOTE | 2017-04-14 16:10 | IPN ---
DATE: 04/14/2017 TIME: 3:16 p.m. CHIEF COMPLAINT: The patient is seen for evaluation of chronic ulceration on the plantar aspect of her left foot. This has had several debridements. Due to increasing pain and redness of her foot, she was admitted to the hospital for IV antibiotics. PAST MEDICAL HISTORY: 1. Type 2 diabetes. 2. Hypertension. 3. Factor V Leiden deficiency. 4. Asthma. 5. Obstructive sleep apnea. 6. Neuropathy. 7. Charcot foot deformity of the left foot. 8. Acid reflux. 9. Restless leg syndrome. 10. Fibromyalgia. 11. Chronic back pain. 12. Bipolar disorder. PAST SURGICAL HISTORY: 1. Cholecystectomy. 2. Cervical discectomy with fusion. 3. Hysterectomy. 4. Lumpectomy on the right side. 5. Appendectomy. 6. Stool transplant. 7. Bilateral temporomandibular joint surgery. 8. Multiple surgical procedures on her left foot for infected diabetic ulcers. ALLERGIES: CLINDAMYCIN, LATEX, METFORMIN, MORPHINE, PENICILLIN, SULFA. PHYSICAL EXAMINATION: Evaluation of the patient's left foot reveals an ulceration present on the plantar surface of her left foot measuring 6.8 cm from medial to lateral and 5.5 cm from distal to proximal, 0.3 cm in depth with a hyperkeratotic rim measuring 1.1 cm. There is a granulation tissue base. Erythema is noted on the lateral side of her foot. ASSESSMENT: 1. Chronic ulceration secondary to Charcot joint deformity of the left foot with an infection. PLAN: Utilizing a sterile curette, the ulcer was debrided, as well as the hyperkeratotic rim with a sterile curette excisionally through the subcutaneous tissue. A dry sterile dressing was applied; however, orders are written for calcium alginate dressing daily. We discussed with the patient referral to the wound center, as well as possible below the knee amputation. The patient is interested in having a below the knee amputation. She has been dealing with this ulceration for two years and wants to proceed with her life, according to the patient, since this has been decreasing her activities and limiting her mobility. Her questions were answered.
--- NOTE | 2017-04-14 19:42 | DSES ---
DATE OF ADMISSION: 04/12/2017 DATE OF DISCHARGE: 04/14/2017 PRIMARY CARE PROVIDER: Dr. Zion Pastrana. CONSULTANTS: Dr. Bender. HISTORY: This is a 46-year-old female patient, diabetic with chronic right lower extremity foot ulcer who follows with Dr. Scott and Dr. Guerra for such in the outpatient setting who continues to have left foot pain as well as increased redness and swelling after stopping Zyvox which had recently been on per Dr. Scott. She also loss her IV site and nursing was unable to get another peripheral line. This patient has a history of infected peripherally inserted central catheter (PICC), IJ lines and ports requiring removement of these lines. She also has a history of poorly controlled diabetes and she has continued her home dose of Toujeo and sliding scale insulin during her hospitalization. She also has a history of deep vein thrombosis, for which she is on chronic Coumadin and was supratherapeutic on admission. She has another INR level pending this morning. She had mild acute renal failure, which has improved today. Her baseline creatinine is about 1, she is 1.64 today. Her Lasix and bmcqzdfdbjv-[id number] (MAXINE) inhibitor have been held, and will continued to be held at discharge. I spoke with Dr. Morgan this morning, he and Dr. Scott have recommended that the patient consider amputation. I have spoken with her this morning, the patient is in agreement with that. I subsequently spoke with Dr. Bender, who the patient has seen in the outpatient setting, he is willing to proceed with evaluating the patient for consideration of amputation, although he is unable to see her during her hospitalization, has agreed to see her on April 25 in his office. We will set up an appointment for that. I have spoken with the patient she is in agreement with this. She will discharged home on Zyvox 600 mg twice daily. She will continue this until after she has seen Dr. Vargas and likely until completion of the amputation. DISCHARGE DIAGNOSES: Her discharge diagnoses include 1. Diabetic foot ulcer. 2. Diabetes mellitus. 3. History of deep vein thrombosis. 4. Morbid obesity. 5. Acute kidney injury. 6. Hypertension. DISCHARGE MEDICATIONS: Include - Zyvox 600 mg twice daily - hydrocodone acetaminophen 10/325 one tablet every 4 hours as needed for pain - albuterol sulfate HFA two puffs inhaled every 4 hours as needed for wheezing - alprazolam 1 mg four times as needed for anxiety - Symbicort 160/4.5 mcg two puffs inhaled twice daily - chlorthalidone 12.5 mg daily - cyclobenzaprine 10 mg by mouth three times a day as needed for muscle spasms - dicyclomine 10 mg by mouth three times a day as needed for pain - Depakote 250 mg twice daily - Docusate 100 mg by mouth daily - duloxetine 60 mg every morning - duloxetine 30 mg before bed - Zopiclone 3 mg by mouth before bed - ferrous sulfate 325 mg daily - Flonase one spray intranasally daily as needed for congestion - Humalog quick pen - Xiidra one drop twice daily - loperamide 2 mg by mouth every 4 hours as needed for diarrhea - Reglan 5 mg by mouth three times daily - Singulair 10 mg by mouth at bedtime - Nystatin powder topically three times daily as needed for rash - omeprazole 40 mg by mouth twice a day - Zofran 4 mg by mouth every 8 hours as needed for nausea - Lyrica 300 mg by mouth twice a day - Seroquel 600 mg by mouth at bedtime - ranitidine 150 mg one tablet before bed - Requip 4 mg by mouth at bedtime - spironolactone 25mg daily - Toujeo 100 units subcu before bed, 125 units subcu daily in the morning - trazodone 100 mg before bed - Coumadin as directed DISCHARGE PLAN: 1. Follow up with Dr. Pastrana in one week. 2. Follow up with Dr. Scott per her office. 4. Follow up with Dr. Bender on April 25. 5. Activity should be as tolerated. 6. Diet should be no added salt, consistent carbohydrate.
== END 2017-04-14 17:00 | disposition home or self-care (01) | DRG 623 ==
LOC: M ED 15:24 → M ED INP 22:27 → M MSPAV 04-13 00:27
PROVIDERS: ADMIT Hospitalist; ATTEND Family Medicine
PROC: 0JBR0ZZ Excision of Left Foot Subcutaneous Tissue and Fascia, Open Approach (ICD-10-PCS; principal; 2017-04-14)
DX: E10.621 Type 1 diabetes mellitus with foot ulcer (principal); D68.2 Hereditary deficiency of other clotting factors; E66.01 Morbid (severe) obesity due to excess calories; L97.519 Non-pressure chronic ulcer of other part of right foot with unspecified severity; N17.9 Acute kidney failure, unspecified; I10 Essential (primary) hypertension; Z79.899 Other long term (current) drug therapy; Z79.4 Long term (current) use of insulin; E10.40 Type 1 diabetes mellitus with diabetic neuropathy, unspecified; K21.9 Gastro-esophageal reflux disease without esophagitis; M79.7 Fibromyalgia; M54.5 Low back pain; G25.81 Restless legs syndrome; Z79.01 Long term (current) use of anticoagulants; Z86.718 Personal history of other venous thrombosis and embolism; J44.9 Chronic obstructive pulmonary disease, unspecified; J45.909 Unspecified asthma, uncomplicated; G47.33 Obstructive sleep apnea (adult) (pediatric); F31.9 Bipolar disorder, unspecified; Z88.5 Allergy status to narcotic agent; Z88.0 Allergy status to penicillin; Z88.2 Allergy status to sulfonamides; Z88.8 Allergy status to other drugs, medicaments and biological substances; Z91.040 Latex allergy status; L40.8 Other psoriasis; Q76.0 Spina bifida occulta; M47.816 Spondylosis without myelopathy or radiculopathy, lumbar region; E10.618 Type 1 diabetes mellitus with other diabetic arthropathy

== ENCOUNTER → 2017-04-12 | Outpatient (REF) | payer OTHER ==
[~2017-04-12] MED LIST changes: +ABIL1TAB13 PO; -ABIL2TAB2 PO; -AVEL1TAB PO; +AVEL1TAB3 PO; +BACITAB PO; -BACITAB3 PO; -BENA20TA2 PO; +BENA20TA8 PO; -BENA40TA2 PO; +BENA40TA7 PO; -COLA100C3 PO; +COLA100C5 PO; -COUM2.5T11 PO; +COUM2.5T17 PO; -COUM2TAB10 PO; +COUM2TAB22 PO; +CYCL10TA PO; +FERR1TAB8 PO; -FERR325T PO; +FLON1SPR; -FURO1TAB15 PO; +FURO80TA2 PO; +HYDR-3719 PO; +KEFL500C17 PO; -KEFL500C7 PO; +LAMI1TAB9 PO; -LAMI200T3 PO; -LEVA750T PO; +LEVA750T7 PO; +LEVO500T3 PO; -LEVO500T32 PO; +LOPE2CAP PO; -LOPE2TAB PO; -LUNE1TAB9 PO; +LUNE2TAB23 PO; +LUNE3TAB36 PO; -LUNE3TAB48 PO; -MACR100C3 PO; +MACR100C43 PO; +MECL1CHW2 PO; -MECL25CH PO; -NAPR250T2 PO; +NAPR250T4 PO; -NYST100024 TOP; +NYST1POW9 TOP; -PERC10TA17 PO; +PERC10TA26 PO; +PERC5TAB12 PO; -PERC5TAB6 PO; +ROZE8TAB16 PO; -ROZE8TAB9 PO; +SERT50TA PO; +TERB250T12 PO; -TERB250T57 PO; +TOPA1TAB PO; -TOPA25TA10 PO; +TOPI100T9 PO; -TOPI1TAB31 PO; +TORS10TA3 PO; +TRAZ-136 PO; -TRAZ100T4 PO; +TRAZ50TA11 PO; -TRAZ50TA4 PO; -ULTR50TA PO; +ULTR50TA8 PO; +VERA40TA PO; +WARF-23 PO; +ZOFR20TA PO
== END ==
LOC: M LAB REF 12:04
PROVIDERS: ATTEND Podiatrist
DX: L97.422 Non-pressure chronic ulcer of left heel and midfoot with fat layer exposed (principal)

== ENCOUNTER → 2017-04-21 | Outpatient (REF) | payer OTHER ==
[~2017-04-21] MED LIST changes: +CYCL10TA PO; +FLON1SPR; +SERT50TA PO; +TORS10TA3 PO; +VERA40TA PO; +ZOFR20TA PO
[2017-04-21 15:41] LABS: BASO % 0.6 % (0.0-1.0); EOS # 0.1 K/mm3 (0.0-0.50); EOS % 1.9 % (0.0-3.0); LARGE UNSTAINED CELL # 0.1 K/mm3 (0.0-0.4); LARGE UNSTAINED CELL % 1.6 % (0.0-4.0); LYMPH # 1.4 K/mm3 (1.5-4.5); LYMPH % 18.6 % (24.0-44.0); MEAN CORPUSCULAR HEMOGLOBIN 26.5 pg (27.0-33.0); MEAN CORPUSCULAR VOLUME 80.3 fl (80.0-96.0); MONO # 0.3 K/mm3 (0.0-0.8); MONO % 4.6 % (0.0-5.0); NEUTROPHILS # 5.4 K/mm3 (1.8-7.7); NEUTROPHILS % 72.7 % (36.0-66.0); PLATELET COUNT, AUTOMATED 273 k/mm3 (150-450); RED CELL DISTRIBUTION WIDTH 15.2 % (11.5-14.5); WHITE BLOOD COUNT 7.4 K/mm3 (4.0-10.0)
[2017-04-21 15:54] LABS: ALBUMIN 2.8 GM/DL (3.2-5.2); ALBUMIN/GLOBULIN RATIO 0.57 (1.00-1.93); ALKALINE PHOSPHATASE 137 U/L (45-117); ALT/SGPT 15 U/L (12-78); ANION GAP 7 MEQ/L (8-16); AST/SGOT 13 U/L (15-37); BILIRUBIN,TOTAL 0.2 MG/DL (0.2-1.0); BLOOD UREA NITROGEN 17 MG/DL (7-18); CALCIUM LEVEL 8.8 MG/DL (8.5-10.1); CARBON DIOXIDE LEVEL 28 MEQ/L (21-32); CHLORIDE LEVEL 97 MEQ/L (98-107); CREATININE FOR GFR 1.01 MG/DL (0.55-1.02); GLOMERULAR FILTRATION RATE > 60.0 (>58); POTASSIUM SERUM 4.7 MEQ/L (3.5-5.1); SODIUM LEVEL 132 MEQ/L (136-145); TOTAL PROTEIN 7.7 GM/DL (6.4-8.2)
[2017-04-21 15:57] LABS: GLUCOSE, FASTING 504 MG/DL (70-105)
== END ==
LOC: M SFHCPLAZ 12:55
PROVIDERS: ATTEND Nurse Practitioner Family
DX: L97.529 Non-pressure chronic ulcer of other part of left foot with unspecified severity (principal); E11.621 Type 2 diabetes mellitus with foot ulcer; I10 Essential (primary) hypertension; Z51.81 Encounter for therapeutic drug level monitoring

== ENCOUNTER → 2017-05-10 | Outpatient (REF) | payer OTHER ==
[2017-05-10 13:08] LABS: INR 4.56
[2017-05-10 13:11] LABS: WHITE BLOOD COUNT 8.7 K/mm3 (4.0-10.0)
[2017-05-10 13:12] LABS: BASO % 0.4 % (0.0-1.0); EOS # 0.2 K/mm3 (0.0-0.50); EOS % 1.8 % (0.0-3.0); LARGE UNSTAINED CELL # 0.1 K/mm3 (0.0-0.4); LARGE UNSTAINED CELL % 1.2 % (0.0-4.0); LYMPH # 1.9 K/mm3 (1.5-4.5); LYMPH % 20.2 % (24.0-44.0); MEAN CORPUSCULAR HEMOGLOBIN 26.1 pg (27.0-33.0); MEAN CORPUSCULAR HGB CONC 32.8 g/dl (32.0-36.5); MEAN CORPUSCULAR VOLUME 79.4 fl (80.0-96.0); MONO # 0.4 K/mm3 (0.0-0.8); MONO % 4.8 % (0.0-5.0); NEUTROPHILS # 6.3 K/mm3 (1.8-7.7); NEUTROPHILS % 71.6 % (36.0-66.0); PLATELET COUNT, AUTOMATED 311 k/mm3 (150-450); RED CELL DISTRIBUTION WIDTH 14.8 % (11.5-14.5)
[2017-05-10 14:38] LABS: ANION GAP 7 MEQ/L (8-16); BLOOD UREA NITROGEN 21 MG/DL (7-18); CALCIUM LEVEL 8.3 MG/DL (8.5-10.1); CARBON DIOXIDE LEVEL 27 MEQ/L (21-32); CHLORIDE LEVEL 96 MEQ/L (98-107); CREATININE FOR GFR 1.04 MG/DL (0.55-1.02); GLOMERULAR FILTRATION RATE > 60.0 (>58); POTASSIUM SERUM 4.5 MEQ/L (3.5-5.1); SODIUM LEVEL 130 MEQ/L (136-145)
[2017-05-10 15:11] LABS: GLUCOSE, FASTING 478 MG/DL (70-105)
== END ==
LOC: M SFHCPLAZ 12:04
PROVIDERS: ATTEND Nurse Practitioner Family
DX: L97.523 Non-pressure chronic ulcer of other part of left foot with necrosis of muscle (principal); T50.904D Poisoning by unspecified drugs, medicaments and biological substances, undetermined, subsequent encounter; Z51.81 Encounter for therapeutic drug level monitoring

== ENCOUNTER → 2017-05-12 | Outpatient (REF) | payer OTHER ==
[2017-05-12 13:50] LABS: INR 2.63
[2017-05-12 14:58] LABS: ANION GAP 12 MEQ/L (8-16); BLOOD UREA NITROGEN 19 MG/DL (7-18); CALCIUM LEVEL 8.7 MG/DL (8.5-10.1); CARBON DIOXIDE LEVEL 23 MEQ/L (21-32); CHLORIDE LEVEL 95 MEQ/L (98-107); CREATININE FOR GFR 0.97 MG/DL (0.55-1.02); GLOMERULAR FILTRATION RATE > 60.0 (>58); POTASSIUM SERUM 4.2 MEQ/L (3.5-5.1); SODIUM LEVEL 130 MEQ/L (136-145)
[2017-05-12 15:12] LABS: GLUCOSE, FASTING 430 MG/DL (70-105)
== END ==
LOC: M SFHCPLAZ 09:09
PROVIDERS: ATTEND Nurse Practitioner Family
DX: E87.1 Hypo-osmolality and hyponatremia (principal); Z51.81 Encounter for therapeutic drug level monitoring

== ENCOUNTER 2017-05-16 07:30 | Inpatient (IN) | payer OTHER ==
[~2017-05-16] VITALS: Ht 179.1 cm; Wt 100.4 kg
--- NOTE | 2017-05-16 05:22 | HPE ---
DATE OF SCHEDULED ADMISSION:05/16/2017 ATTENDING PHYSICIAN: Dr. Rashid Morgan PRIMARY CARE PROVIDER: Dr. Zion Pastrana and Laxmi Hernandez NP HISTORY OF THE PRESENT ILLNESS: his is a 46-year-old female with a longstanding history of osteomyelitis to the left lower extremity, including a Charcot foot. This has been managed collectively between Dr. Guerra, primary care, as well as infectious disease, Dr. Scott. The patient has had repeated difficulties including uncontrolled diabetes, recurrent hospitalizations secondary to the osteomyelitis with multiple bouts of intravenous (IV) antibiotics. At this point , it has been determined that the patient is a candidate for an amputation of the infected region. This has been coordinated between Dr. Guerra and Dr. Bender. The patient is being admitted for bridge therapy for Lovenox, as well as central line placement. PAST MEDICAL HISTORY: Significant for: 1. Osteomyelitis along with Charcot joints. 2. Significantly uncontrolled diabetes. 3. Lumbar spondylosis. 4. Central canal stenosis L2 to L5. 5. Chronic pain, managed by [facility]. 6. Hypersteatosis. 7. Hypertension. 8. Asthma. 9. Bipolar disorder. 10. Obsessive-compulsive disorder (OCD). 11. Anxiety. 12. Fibromyalgia. 13. Spina bifida occulta. 14. Psoriasis. 15. Gastroesophageal reflux disease (GERD). 16. Hiatal hernia. 17. Herpes simplex virus type 2 (HSV-2). SURGICAL HISTORY: 1. Cholecystectomy in 1995. 2. Cervical discectomy C5-C6 with a fusion in 1994. 3. Hysterectomy in 2000. 4. Lumpectomy right breast, 2003. 5. Multiple diagnostic laparoscopies. 6. Venous Port-a-Cath to the left chest times two. 7. Multiple peripherally inserted central catheter (PICC) line insertions. 8. Appendectomy in 2008. 9. Ulnar release to the right arm and hand. 10. Stool transplant. 11. Esophagogastroduodenoscopy (EGD) December of 2016. 12. Ulnar release and carpal tunnel release right arm with revision, Dr. Verdugo. 13. Multiple left Charcot foot debridements by Dr. Guerra. HOSPITALIZATIONS: The patient has had multiple hospitalizations secondary to surgical needs as well as osteomyelitis of the foot. FAMILY HISTORY: Father at 82 years of age due to cardiac disease and prostate cancer. Mother at 80 years of age due to osteoporosis, hypertension and stroke. The patient has two siblings who are both living with diabetes. SOCIAL HISTORY: The patient lives with her . She is a nonsmoker. Has quit smoking within the last 5 years. Denies alcohol use. Denies substance abuse. 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 She has three dogs, three cats at home. 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 CURRENT MEDICATIONS: Include: - Prilosec 40 mg one by mouth twice a day - Zyvox 600 mg by mouth every 12 hours - Flagyl 500 mg by mouth every 8 hours - Symbicort 80/.5 mcg two puffs twice a day - Ventolin HFA as needed - Epipen as needed for allergic reaction - warfarin 2 mg daily and the patient will stop taking her warfarin on 05/15/2017 - Flonase one spray to each nostril daily - Humalog via sliding scale - Zyrtec 10 mg by mouth daily - Bentyl 10 mg by mouth three times a day - Cymbalta 60 mg daily - Lunesta 3 mg by mouth nightly - Singulair 10 mg daily - Lyrica 300 mg by mouth twice a day - spironolactone 25 mg at bedtime - Zofran 8 mg daily as needed for nausea - betamethasone cream to affected areas - Xopenex solution via nebulizer as needed - loperamide 2 mg as needed for diarrhea - Reglan 5 mg one by mouth three times a day - Zantac 150 mg by mouth daily at bedtime - Bactroban ointment three times a day to affected area of her foot - hydrocodone 10/325 one tablet orally every 4 hours as needed - Toujeo SoloStar 125 units subcutaneous every morning, 100 units subcutaneously at bedtime - Garamycin application to affected area externally twice a day - Dulcolax as needed daily 5 mg - ferrous sulfate 325 mg by mouth daily - Seroquel 200 mg two by mouth daily - trazodone 100 mg by mouth at bedtime - torsemide 10 mg by mouth daily every morning ON PHYSICAL EXAM: Vital Signs: Are stable. She is afebrile. Cardiovascular: Heart rate and rhythm are regular. Pulmonary: Lungs are clear. Abdomen: Is soft and nontender. Bilateral Lower Extremities: Are without edema. Left lower extremity not visualized secondary to equalizer boot and dressing in place. Neurologic: Patient is alert and oriented times three. MOST RECENT LABS: Show a sodium level of 130. These will be repeated day of admission. This is not a change for her. ADMITTING DIAGNOSES: 1. Osteomyelitis of the left foot with Charcot foot. 2. Uncontrolled diabetes. 3. Poor venous access. 4. Recurrent deep vein thrombosis (DVT). SECONDARY DIAGNOSES: 1. Asthma. 2. Chronic low back pain. 3. Anxiety. 4. Bipolar disorder. 5. Fibromyalgia. 6. Gastroesophageal reflux disease (GERD). PLAN: Patient will be admitted. Routine medications will be maintained except for her warfarin. Labs will be obtained day of patient's admission. Any further medication changes may be made preoperatively in collaboration with primary care provider (PCP), anesthesia, and surgeon. Copies To: Dr. Yung SULLIVAN
[~2017-05-16 07:30] MED LIST changes: -SERT50TA PO; -TORS10TA3 PO; -VERA40TA PO
[2017-05-16] MEDS ORDERED: ONDANSETRON 4 MG TAB (S0181) PO PRN (08:15)
[2017-05-16] MEDS ORDERED: ACETAMINOPHEN TAB 650MG DOSE (2X325MG) PO PRN (08:15)
[2017-05-16] MEDS ORDERED: BISACODYL 10 MG SUPP PR PRN (08:15)
[2017-05-16 11:50] VITALS: BP 130/62
[2017-05-16] MEDS ORDERED: ZYVO100T PO (13:29)
[2017-05-16] MEDS: SENOKOT S TAB PO SCH ×2 (13:30→21:55)
[2017-05-16] MEDS: ENOXAPARIN 120 MG/0.8 ML SYR (J1650) SC SCH ×2 (13:30→21:59)
[2017-05-16] MEDS: DOCUSATE SODIUM 100 MG CAP PO SCH ×2 (13:30→21:55)
[2017-05-16] MEDS ORDERED: SERT50TA PO (13:32)
[2017-05-16 13:49] LABS: MEAN CORPUSCULAR HEMOGLOBIN 25.7 pg (27.0-33.0); MEAN CORPUSCULAR HGB CONC 32.3 g/dl (32.0-36.5); MEAN CORPUSCULAR VOLUME 79.6 fl (80.0-96.0); RED CELL DISTRIBUTION WIDTH 14.7 % (11.5-14.5); WHITE BLOOD COUNT 13.1 K/mm3 (4.0-10.0)
[2017-05-16 13:56] LABS: INR 2.84
[2017-05-16 14:00] VITALS: BP 150/71
[2017-05-16] MEDS: METOCLOPRAMIDE 5 MG TAB PO SCH (17:30)
[2017-05-16] MEDS ORDERED: DICYCLOMINE 10 MG CAP PO PRN (18:30)
[2017-05-16] MEDS ORDERED: CYCLOBENZAPRINE 10 MG TAB PO PRN (18:30)
[2017-05-16] MEDS ORDERED: ALBUTEROL 90 MCG/ACT 8GM HFA INHALER INH PRN (18:30)
[2017-05-16] MEDS ORDERED: FLUTICASONE PROP 0.05% NASAL SPRAY 16 GM (FLONASE) PRN (18:30)
[2017-05-16] MEDS ORDERED: NYSTATIN 100,000 UNITS/GM TOPICAL PWD 15 GM TOP PRN (18:30)
[2017-05-16] MEDS ORDERED: DEXTROSE 50% 50 ML SYRINGE IV PRN (19:00)
[2017-05-16] MEDS ORDERED: GLUCAGON FOR INJ 1 MG VIAL (J1610) SC PRN (19:00)
[2017-05-16] MEDS ORDERED: GLUCOSE 4 GM CHEW TABLET PO PRN (19:00)
[2017-05-16] MEDS ORDERED: HumaLOG INSULIN (NovoLOG) PER UNIT SC STA ×2 (19:22→21:52)
[2017-05-16] MEDS: ANEXSIA, NORCO 7.5MG/325MG TABLET(HYDROCODONE/APAP) PO PRN (19:28)
[2017-05-16] MEDS: SYMBICORT 160/4.5MCG INHALER 6GM INH SCH (20:32)
[2017-05-16] MEDS: HUMALOG 200 UNIT/ML SC SCH (21:00)
--- NOTE | 2017-05-16 21:02 | REP ---
CHEST PA AND LATERAL: 05/16/2017: Clinical history. Preoperative. Comparison: 04/12/2017, 08/30/2016. Findings: Two-view show the lung juarez adequately inflated. There is no pleural effusion, lateral pleural thickening, apical scarring or pneumothorax. Heart, mediastinal, hilar contours are normal. No vascular redistribution or pulmonary edema. There are minor degenerative changes in the spine. Impression: 1. No acute cardiopulmonary change. Signed by Lei Boucher MD 05/16/2017 09:34 P
[2017-05-16] MEDS: QUEtiapine FUMARATE 200 MG TAB PO SCH (21:54)
[2017-05-16] MEDS: rOPINIRole 1MG TAB PO SCH (21:54)
[2017-05-16] MEDS: DULoxetine 30 MG CAP (CYMBALTA) PO SCH (21:55)
[2017-05-16] MEDS: OMEPRAZOLE 20 MG CAP PO SCH (21:55)
[2017-05-16] MEDS: traZODone 100 MG TAB PO SCH (21:55)
[2017-05-16] MEDS: SERTRALINE HCL 50 MG TAB PO SCH (21:55)
[2017-05-16] MEDS: PREGABALIN 100 MG CAP (LYRICA) PO SCH (21:55)
[2017-05-16] MEDS: LINEZOLID 600MG TABLET (ZYVOX) PO SCH (21:56)
[2017-05-16] MEDS: MONTELUKAST 10 MG TAB PO SCH (21:56)
[2017-05-16] MEDS: DIVALPROEX 250 MG TAB PO SCH (21:57)
[2017-05-16] MEDS: TOUJEO 300 UNIT/ML SC SCH (21:58)
[2017-05-16 22:00] VITALS: BP 160/70
[2017-05-16] MEDS: ALPRAZolam 0.5 MG TAB PO PRN (22:11)
[2017-05-17] MEDS: ANEXSIA, NORCO 7.5MG/325MG TABLET(HYDROCODONE/APAP) PO PRN ×3 (01:18→18:38)
[2017-05-17 06:00] VITALS: BP 166/82
[2017-05-17 06:09] LABS: BASO % 0.3 % (0.0-1.0); EOS # 0.2 K/mm3 (0.0-0.50); EOS % 1.7 % (0.0-3.0); LARGE UNSTAINED CELL # 0.2 K/mm3 (0.0-0.4); LARGE UNSTAINED CELL % 1.6 % (0.0-4.0); LYMPH # 1.8 K/mm3 (1.5-4.5); LYMPH % 17.8 % (24.0-44.0); MEAN CORPUSCULAR HEMOGLOBIN 25.5 pg (27.0-33.0); MEAN CORPUSCULAR HGB CONC 32.5 g/dl (32.0-36.5); MEAN CORPUSCULAR VOLUME 78.5 fl (80.0-96.0); MONO # 0.5 K/mm3 (0.0-0.8); MONO % 5.2 % (0.0-5.0); NEUTROPHILS # 6.9 K/mm3 (1.8-7.7); NEUTROPHILS % 73.5 % (36.0-66.0); PLATELET COUNT, AUTOMATED 256 k/mm3 (150-450); RED CELL DISTRIBUTION WIDTH 14.8 % (11.5-14.5); WHITE BLOOD COUNT 9.4 K/mm3 (4.0-10.0)
[2017-05-17 06:15] LABS: INR 2.48
[2017-05-17 06:27] LABS: ALBUMIN 1.9 GM/DL (3.2-5.2); ALBUMIN/GLOBULIN RATIO 0.38 (1.00-1.93); ALKALINE PHOSPHATASE 130 U/L (45-117); ALT/SGPT 21 U/L (12-78); ANION GAP 7 MEQ/L (8-16); AST/SGOT 7 U/L (15-37); BILIRUBIN,TOTAL 0.2 MG/DL (0.2-1.0); BLOOD UREA NITROGEN 22 MG/DL (7-18); CALCIUM LEVEL 8.5 MG/DL (8.5-10.1); CARBON DIOXIDE LEVEL 27 MEQ/L (21-32); CHLORIDE LEVEL 101 MEQ/L (98-107); GLOMERULAR FILTRATION RATE > 60.0 (>58); GLUCOSE, FASTING 338 MG/DL (70-105); POTASSIUM SERUM 4.3 MEQ/L (3.5-5.1); SODIUM LEVEL 135 MEQ/L (136-145); TOTAL PROTEIN 6.9 GM/DL (6.4-8.2)
[2017-05-17] MEDS: HUMALOG 200 UNIT/ML SC SCH ×4 (07:28→22:27)
[2017-05-17] MEDS: METOCLOPRAMIDE 5 MG TAB PO SCH ×3 (07:28→17:20)
[2017-05-17] MEDS: SYMBICORT 160/4.5MCG INHALER 6GM INH SCH ×2 (08:33→20:42)
[2017-05-17] MEDS: DOCUSATE SODIUM 100 MG CAP PO SCH ×2 (09:32→22:11)
[2017-05-17] MEDS: SENOKOT S TAB PO SCH ×2 (09:32→22:12)
[2017-05-17] MEDS: PREGABALIN 100 MG CAP (LYRICA) PO SCH ×2 (09:32→22:11)
[2017-05-17] MEDS: OMEPRAZOLE 20 MG CAP PO SCH ×2 (09:32→22:11)
[2017-05-17] MEDS: LINEZOLID 600MG TABLET (ZYVOX) PO SCH ×2 (09:32→22:10)
[2017-05-17] MEDS: ENOXAPARIN 120 MG/0.8 ML SYR (J1650) SC SCH ×2 (09:33→22:15)
[2017-05-17] MEDS: DULoxetine 30 MG CAP (CYMBALTA) PO SCH ×2 (09:33→22:12)
[2017-05-17] MEDS: DIVALPROEX 250 MG TAB PO SCH ×2 (09:33→22:11)
[2017-05-17] MEDS: INSULIN GLARGINE SC SCH (09:34)
--- NOTE | 2017-05-17 10:41 | IPNPDOC ---
Subjective Date Seen The patient was seen on 05/17/17. Subjective Chief Complaint/HPI The patient is a 46-year-old female admitted with a reason for visit of Recurrent Infection L Foot, Diabetes. Events since last encounter Pt this morning without new concerns. She is feeling well. She is sitting up in bed. General: Denies: Fatigue Constitutional: Denies: Chills, Fever Pulmonary: Denies: Dyspnea, Cough Cardiovascular: Denies: Chest Pain, Palpitations Gastrointestinal: Denies: Nausea, Vomiting, Diarrhea Neurological: Denies: Weakness Psych: Reports: Mood Normal Objective Physical Examination General Exam: Positive: Alert, No Acute Distress ENT Exam: Positive: Mucous membr. moist/pink Chest Exam: Positive: Clear to auscultation, Normal air movement Heart Exam: Positive: Rate Normal, Normal S1, Normal S2 Abdomen Exam: Positive: Normal bowel sounds, Soft, Negative: Tenderness Extremity Exam: Positive: Edema (LLE trace, RLE none) Assessment /Plan Problems (1) Osteomyelitis of left foot Status: Chronic Response to Treatment: Stable Discussed With: Nurse, Patient Problem Specific Plan: Monitor Clinically Problem Text: Pt is scheduled for the OR 05/[address] Bender and Dr Guerra. She will have central line access placed before. She is currently being bridged for anticoagulatio d/t her chronic hypercoaguable state. She will cont with Zyvox orally for now. (2) Diabetic ulcer of left foot Status: Chronic Response to Treatment: Stable Problem Text: SEe above. (3) Factor 5 Leiden mutation, heterozygous Status: Chronic Problem Text: Bridge therapy ordered, she is on Lovenox 120 mg SQ BID. 05/17 2.5 05/16 INR 2.8 (4) Uncontrolled diabetes mellitus Onset Date: 11/12/2014 Status: Chronic Response to Treatment: Stable, Uncontrolled Problem Specific Plan: Monitor Clinically Problem Text: She is receiving Toujeo and SSI per her PCP, Dr Pastrana, her SSI has been adjusted with anticipation of a more controlled diet. (5) Anemia Status: Chronic Problem Text: 05/17 8.4, MCV 79-obvious caution on VKA and Lovenox-check Fe/HO 05/16 hgb 9.8 baseline hgb 9s (6) Hypertension Status: Chronic Problem Text: 05/17 SBP 160-190; therefore, restarted HD benazepril 20 BID Plan/VTE VTE Prophylaxis Ordered?: Yes VS, I&O, 24H, Fishbone Vital Signs/I&O Vital Signs Date Time Temp Pulse Resp B/P (MAP) Pulse Ox O2 Delivery O2 Flow Rate FiO2 05/17/17 08:15 18 05/17/17 06:00 97.7 86 166/82 (110) 93 Room Air I&O- Last 24 Hours up to 6 AM 05/17/17 05:59 Intake Total 1320 ml Output Total 200 ml Balance 1120 ml Laboratory Data 24H LABS Laboratory Tests 2 05/16/17 12:53: Bedside Glucose (Misc Panel) 412H 05/16/17 13:37: Prothrombin Time 31.1H, Prothromb Time International Ratio 2.84, Activated Partial Thromboplast Time 96.4H 05/16/17 18:41: Bedside Glucose Confirm (Misc) 601*H 05/16/17 21:37: Bedside Glucose (Misc Panel) 554*H 05/17/17 00:08: Bedside Glucose (Misc Panel) 440H 05/17/17 00:20: Bedside Glucose Confirm (Misc) 409*H 05/17/17 05:44: White Blood Count 9.4, Red Blood Count 3.31L, Hemoglobin 8.4L, Hematocrit 26.0L , Mean Corpuscular Volume 78.5L, Mean Corpuscular Hemoglobin 25.5L, Mean Corpuscular Hemoglobin Concent 32.5, Red Cell Distribution Width 14.8H, Platelet Count 256, Neutrophils (%) (Auto) 73.5H, Lymphocytes (%) (Auto) 17.8L, Monocytes (%) (Auto) 5.2H, Eosinophils (%) (Auto) 1.7, Basophils (%) (Auto) 0.3 , Neutrophils # (Auto) 6.9, Lymphocytes # (Auto) 1.8, Monocytes # (Auto) 0.5, Eosinophils # (Auto) 0.2, Basophils # (Auto) 0.0, Large Unclassified Cells % 1.6 , Large Unclassified Cells # 0.2, Prothrombin Time 27.8H, Prothromb Time International Ratio 2.48, Anion Gap 7L, Glomerular Filtration Rate > 60.0, Blood Urea Nitrogen 22H, Creatinine 1.00, Sodium Level 135L, Potassium Level 4.3 , Chloride Level 101, Carbon Dioxide Level 27, Calcium Level 8.5, Aspartate Amino Transf (AST/SGOT) 7L, Alanine Aminotransferase (ALT/SGPT) 21, Alkaline Phosphatase 130H, Total Bilirubin 0.2, Total Protein 6.9, Albumin 1.9L, Albumin/ Globulin Ratio 0.38L CBC/BMP Laboratory Tests 05/16/17 13:37 Red Blood Count 3.81 L, Mean Corpuscular Volume 79.6 L, Mean Corpuscular Hemoglobin 25.7 L, Mean Corpuscular Hemoglobin Concent 32.3, Red Cell Distribution Width 14.7 H 05/17/17 05:44 Red Blood Count 3.31 L, Mean Corpuscular Volume 78.5 L, Mean Corpuscular Hemoglobin 25.5 L, Mean Corpuscular Hemoglobin Concent 32.5, Red Cell Distribution Width 14.8 H, Neutrophils (%) (Auto) 73.5 H, Lymphocytes (%) (Auto ) 17.8 L, Monocytes (%) (Auto) 5.2 H, Eosinophils (%) (Auto) 1.7, Basophils (%) (Auto) 0.3, Neutrophils # (Auto) 6.9, Lymphocytes # (Auto) 1.8, Monocytes # ( Auto) 0.5, Eosinophils # (Auto) 0.2, Basophils # (Auto) 0.0, Calcium Level 8.5, Aspartate Amino Transf (AST/SGOT) 7 L, Alanine Aminotransferase (ALT/SGPT) 21, Alkaline Phosphatase 130 H, Total Bilirubin 0.2, Total Protein 6.9, Albumin 1.9 L LATASHA STRANGE PA-C May 17, 2017 10:41 Rashid Morgan M.D. May 17, 2017 16:53
[2017-05-17] MEDS ORDERED: ISOVUE-300 61% 50ML VIAL (Q9967) As Ordered ONE (11:57)
[2017-05-17] MEDS ORDERED: LIDOCAINE 2% MDV 20 ML VIAL As Ordered ONE (12:23)
[2017-05-17] MEDS: MORPHINE 2 MG/ML 1ML SYRINGE IV PRN ×3 (13:15→22:35)
[2017-05-17 14:00] VITALS: BP 192/86
[2017-05-17] MEDS: SODIUM CHLORIDE 0.9% INJ 10 ML SYR IV SCH ×2 (14:32→22:14)
[2017-05-17] MEDS: VERAPAMIL 40 MG TAB PO SCH ×2 (15:44→22:14)
[2017-05-17 17:30] LABS: FERRITIN 156 NG/ML (8-252); PERCENT SATURATION 10.8 % (13.2-45.0); TOTAL IRON BINDING CAPACITY 157 UG/DL (250-450)
[2017-05-17] MEDS: ONDANSETRON 4MG/2ML VIAL (J2405) IV PRN (19:43)
[2017-05-17] MEDS: TOUJEO 300 UNIT/ML SC SCH (21:00)
[2017-05-17 22:00] VITALS: BP 192/70
[2017-05-17] MEDS: QUEtiapine FUMARATE 200 MG TAB PO SCH (22:10)
[2017-05-17] MEDS: rOPINIRole 1MG TAB PO SCH (22:10)
[2017-05-17] MEDS: traZODone 100 MG TAB PO SCH (22:11)
[2017-05-17] MEDS: SERTRALINE HCL 50 MG TAB PO SCH (22:11)
[2017-05-17] MEDS: MONTELUKAST 10 MG TAB PO SCH (22:11)
[2017-05-17] MEDS: ALPRAZolam 0.5 MG TAB PO PRN (22:26)
[2017-05-18] MEDS: SODIUM CHLORIDE 0.9% INJ 10 ML SYR IV SCH ×3 (05:39→21:10)
[2017-05-18] MEDS: MORPHINE 2 MG/ML 1ML SYRINGE IV PRN ×4 (05:40→23:07)
[2017-05-18 05:55] LABS: BASO % 0.4 % (0.0-1.0); EOS # 0.1 K/mm3 (0.0-0.50); EOS % 1.3 % (0.0-3.0); LARGE UNSTAINED CELL # 0.1 K/mm3 (0.0-0.4); LARGE UNSTAINED CELL % 1.7 % (0.0-4.0); LYMPH # 1.6 K/mm3 (1.5-4.5); LYMPH % 18.1 % (24.0-44.0); MEAN CORPUSCULAR HEMOGLOBIN 25.7 pg (27.0-33.0); MEAN CORPUSCULAR HGB CONC 33.1 g/dl (32.0-36.5); MEAN CORPUSCULAR VOLUME 77.7 fl (80.0-96.0); MONO # 0.5 K/mm3 (0.0-0.8); MONO % 5.9 % (0.0-5.0); NEUTROPHILS % 72.6 % (36.0-66.0); PLATELET COUNT, AUTOMATED 269 k/mm3 (150-450); RED CELL DISTRIBUTION WIDTH 14.4 % (11.5-14.5); WHITE BLOOD COUNT 8.2 K/mm3 (4.0-10.0)
[2017-05-18 06:00] VITALS: BP 138/68
[2017-05-18 06:17] LABS: INR 1.7
[2017-05-18 06:34] LABS: ALBUMIN 1.9 GM/DL (3.2-5.2); ALBUMIN/GLOBULIN RATIO 0.44 (1.00-1.93); ALKALINE PHOSPHATASE 121 U/L (45-117); ALT/SGPT 15 U/L (12-78); ANION GAP 8 MEQ/L (8-16); AST/SGOT 9 U/L (15-37); BILIRUBIN,TOTAL 0.3 MG/DL (0.2-1.0); BLOOD UREA NITROGEN 21 MG/DL (7-18); CALCIUM LEVEL 8.1 MG/DL (8.5-10.1); CARBON DIOXIDE LEVEL 28 MEQ/L (21-32); CHLORIDE LEVEL 102 MEQ/L (98-107); CREATININE FOR GFR 0.96 MG/DL (0.55-1.02); GLOMERULAR FILTRATION RATE > 60.0 (>58); GLUCOSE, FASTING 169 MG/DL (70-105); POTASSIUM SERUM 4.2 MEQ/L (3.5-5.1); SODIUM LEVEL 138 MEQ/L (136-145); TOTAL PROTEIN 6.2 GM/DL (6.4-8.2)
[2017-05-18] MEDS: METOCLOPRAMIDE 5 MG TAB PO SCH ×3 (08:08→17:37)
[2017-05-18] MEDS: ANEXSIA, NORCO 7.5MG/325MG TABLET(HYDROCODONE/APAP) PO PRN ×3 (08:08→20:54)
[2017-05-18] MEDS: HUMALOG 200 UNIT/ML SC SCH ×4 (08:09→21:09)
[2017-05-18] MEDS: DIVALPROEX 250 MG TAB PO SCH ×2 (08:16→20:55)
[2017-05-18] MEDS: OMEPRAZOLE 20 MG CAP PO SCH ×2 (08:16→20:54)
[2017-05-18] MEDS: PREGABALIN 100 MG CAP (LYRICA) PO SCH ×2 (08:16→20:53)
[2017-05-18] MEDS: SENOKOT S TAB PO SCH ×2 (08:16→20:55)
[2017-05-18] MEDS: DOCUSATE SODIUM 100 MG CAP PO SCH ×2 (08:17→20:55)
[2017-05-18] MEDS: LINEZOLID 600MG TABLET (ZYVOX) PO SCH ×2 (08:17→20:55)
[2017-05-18] MEDS: DULoxetine 30 MG CAP (CYMBALTA) PO SCH ×2 (08:17→20:54)
[2017-05-18] MEDS: VERAPAMIL 40 MG TAB PO SCH ×2 (08:18→21:14)
[2017-05-18] MEDS: INSULIN GLARGINE SC SCH (08:19)
[2017-05-18] MEDS: SYMBICORT 160/4.5MCG INHALER 6GM INH SCH ×2 (09:00→20:35)
[2017-05-18] MEDS: ONDANSETRON 4MG/2ML VIAL (J2405) IV PRN (11:20)
[2017-05-18 14:00] VITALS: BP 149/72
[2017-05-18] MEDS ORDERED: SODIUM CHLORIDE 0.9% INJ 10 ML SYR IV PRN (14:15)
[2017-05-18] MEDS: ENOXAPARIN 120 MG/0.8 ML SYR (J1650) SC SCH ×2 (14:18→15:07)
--- NOTE | 2017-05-18 16:36 | IPNPDOC ---
Subjective Date Seen The patient was seen on 05/18/17. Subjective Chief Complaint/HPI The patient is a 46-year-old female admitted with a reason for visit of Recurrent Infection L Foot, Diabetes. Constitutional: Denies: Chills, Fever ENT: Denies: Head Aches Skin: Reports: Rash (worse on foot) Pulmonary: Denies: Dyspnea, Cough Cardiovascular: Denies: Chest Pain Gastrointestinal: Denies: Nausea, Vomiting, Abdominal Pain Genitourinary: Denies: Dysuria Musculoskeletal: Reports: Foot Pain (left) Neurological: Denies: Weakness, Numbness Objective Physical Examination General Exam: Positive: Alert, No Acute Distress ENT Exam: Positive: Mucous membr. moist/pink Chest Exam: Positive: Clear to auscultation, Normal air movement Heart Exam: Positive: Rate Normal, Normal S1, Normal S2 Abdomen Exam: Positive: Normal bowel sounds, Soft, Negative: Tenderness Extremity Exam: Positive: Edema (LLE trace, RLE none) Skin Exam: Positive: Other skin issue (Left foot wrapped in gauze; area around gauze is red and tender to palpation) Assessment /Plan Problems (1) Osteomyelitis of left foot Status: Chronic Response to Treatment: Stable Discussed With: Nurse, Patient Problem Specific Plan: Monitor Clinically Problem Text: Pt is scheduled for the OR 05/[address] Bender and Dr Guerra at 6 am. Central line access has been placed. Will make NPO after midnight and will hold this evening's dose of lovenox in anticipation of surgery. She will cont with Zyvox orally for now. (2) Diabetic ulcer of left foot Status: Chronic Response to Treatment: Stable Problem Text: See above. (3) Factor 5 Leiden mutation, heterozygous Status: Chronic Problem Text: She has been on Lovenox 120 mg SQ BID; hold dose 8/2 PM in anticipation of surgery 8/3 AM. INR <2 on 05/18/17 (4) Uncontrolled diabetes mellitus Onset Date: 11/12/2014 Status: Chronic Response to Treatment: Stable, Uncontrolled Problem Specific Plan: Monitor Clinically Problem Text: Home Toujeo decreased due to being NPO aftermidnight; TOUJEO DOSE WILL NEED TO BE INCREASED AGAIN ONCE SHE IS EATING. Home dose Toujeo 125 U qAM, 100U qPM; due to being NPO aftermidnight, will cut doses in half to 50U this evening and 65U in the morning Change fingersticks to Q6H once NPO. (5) Anemia Status: Chronic Problem Text: 05/18 - Hgb stable at 8.6 today 05/17 8.4, MCV 79-obvious caution on VKA and Lovenox-check Fe/HO 05/16 hgb 9.8 baseline hgb 9s (6) Hypertension Status: Chronic Problem Text: 05/18 - SBP better controlled at 130s - 140s today. 05/17 SBP 160-190; therefore, restarted HD benazepril 20 BID Plan/VTE VTE Prophylaxis Ordered?: Yes VS, I&O, 24H, Fishbone Vital Signs/I&O Vital Signs Date Time Temp Pulse Resp B/P (MAP) Pulse Ox O2 Delivery O2 Flow Rate FiO2 05/18/17 15:04 16 Room Air 05/18/17 14:00 98.4 85 149/72 (97) 97 I&O- Last 24 Hours up to 6 AM 05/18/17 06:00 Intake Total 1920 ml Output Total 3300 ml Balance -1380 ml Laboratory Data 24H LABS Laboratory Tests 2 05/17/17 16:57: Bedside Glucose (Misc Panel) 429H 05/17/17 20:54: Bedside Glucose (Misc Panel) 394H 05/18/17 05:31: White Blood Count 8.2, Red Blood Count 3.36L, Hemoglobin 8.6L, Hematocrit 26.1L , Mean Corpuscular Volume 77.7L, Mean Corpuscular Hemoglobin 25.7L, Mean Corpuscular Hemoglobin Concent 33.1, Red Cell Distribution Width 14.4, Platelet Count 269, Neutrophils (%) (Auto) 72.6H, Lymphocytes (%) (Auto) 18.1L, Monocytes (%) (Auto) 5.9H, Eosinophils (%) (Auto) 1.3, Basophils (%) (Auto) 0.4 , Neutrophils # (Auto) 6.0, Lymphocytes # (Auto) 1.6, Monocytes # (Auto) 0.5, Eosinophils # (Auto) 0.1, Basophils # (Auto) 0.0, Large Unclassified Cells % 1.7 , Large Unclassified Cells # 0.1, Prothrombin Time 20.5H, Prothromb Time International Ratio 1.70, Anion Gap 8, Glomerular Filtration Rate > 60.0, Blood Urea Nitrogen 21H, Creatinine 0.96, Sodium Level 138, Potassium Level 4.2, Chloride Level 102, Carbon Dioxide Level 28, Calcium Level 8.1L, Aspartate Amino Transf (AST/SGOT) 9L, Alanine Aminotransferase (ALT/SGPT) 15, Alkaline Phosphatase 121H, Total Bilirubin 0.3, Total Protein 6.2L, Albumin 1.9L, Albumin /Globulin Ratio 0.44L CBC/BMP Laboratory Tests 05/18/17 05:31 Red Blood Count 3.36 L, Mean Corpuscular Volume 77.7 L, Mean Corpuscular Hemoglobin 25.7 L, Mean Corpuscular Hemoglobin Concent 33.1, Red Cell Distribution Width 14.4, Neutrophils (%) (Auto) 72.6 H, Lymphocytes (%) (Auto) 18.1 L, Monocytes (%) (Auto) 5.9 H, Eosinophils (%) (Auto) 1.3, Basophils (%) ( Auto) 0.4, Neutrophils # (Auto) 6.0, Lymphocytes # (Auto) 1.6, Monocytes # (Auto ) 0.5, Eosinophils # (Auto) 0.1, Basophils # (Auto) 0.0, Calcium Level 8.1 L, Aspartate Amino Transf (AST/SGOT) 9 L, Alanine Aminotransferase (ALT/SGPT) 15, Alkaline Phosphatase 121 H, Total Bilirubin 0.3, Total Protein 6.2 L, Albumin 1.9 L RIAZ LOPEZ MD May 18, 2017 15:35
[2017-05-18] MEDS ORDERED: MOM 30ML SUSPENSION UDC PO PRN (20:30)
[2017-05-18] MEDS: ALPRAZolam 0.5 MG TAB PO PRN (20:53)
[2017-05-18] MEDS: MONTELUKAST 10 MG TAB PO SCH (20:55)
[2017-05-18] MEDS: SERTRALINE HCL 50 MG TAB PO SCH (20:55)
[2017-05-18] MEDS: QUEtiapine FUMARATE 200 MG TAB PO SCH (20:55)
[2017-05-18] MEDS: traZODone 100 MG TAB PO SCH (20:55)
[2017-05-18] MEDS: rOPINIRole 1MG TAB PO SCH (20:56)
[2017-05-18] MEDS: TOUJEO SC SCH (21:08)
[2017-05-19] VITALS (10 sets, daily range): BP systolic 122–164; BP diastolic 61–83
[2017-05-19] MEDS: ANEXSIA, NORCO 7.5MG/325MG TABLET(HYDROCODONE/APAP) PO PRN (04:50)
[2017-05-19] MEDS: D5W/0.45% SODIUM CHLORIDE 1,000 ML IV SCH ×3 (05:14→21:49)
[2017-05-19] MEDS: SODIUM CHLORIDE 0.9% INJ 10 ML SYR IV SCH ×3 (05:31→22:01)
[2017-05-19 05:37] LABS: BASO % 0.4 % (0.0-1.0); EOS # 0.1 K/mm3 (0.0-0.50); EOS % 1.5 % (0.0-3.0); LARGE UNSTAINED CELL # 0.2 K/mm3 (0.0-0.4); LARGE UNSTAINED CELL % 2.1 % (0.0-4.0); LYMPH # 1.2 K/mm3 (1.5-4.5); LYMPH % 11.7 % (24.0-44.0); MEAN CORPUSCULAR HEMOGLOBIN 25.5 pg (27.0-33.0); MEAN CORPUSCULAR HGB CONC 32.9 g/dl (32.0-36.5); MEAN CORPUSCULAR VOLUME 77.5 fl (80.0-96.0); MONO # 0.5 K/mm3 (0.0-0.8); MONO % 6.3 % (0.0-5.0); NEUTROPHILS # 6.6 K/mm3 (1.8-7.7); PLATELET COUNT, AUTOMATED 273 k/mm3 (150-450); RED CELL DISTRIBUTION WIDTH 14.4 % (11.5-14.5); WHITE BLOOD COUNT 8.5 K/mm3 (4.0-10.0)
[2017-05-19 05:41] LABS: INR 1.18
[2017-05-19 05:54] LABS: ALBUMIN/GLOBULIN RATIO 0.37 (1.00-1.93); BILIRUBIN,TOTAL 0.2 MG/DL (0.2-1.0); CALCIUM LEVEL 8.3 MG/DL (8.5-10.1); CREATININE FOR GFR 1.09 MG/DL (0.55-1.02); GLOMERULAR FILTRATION RATE 57.3 (>58); TOTAL PROTEIN 7.4 GM/DL (6.4-8.2)
[2017-05-19] MEDS: HUMALOG 200 UNIT/ML SC SCH ×4 (06:16→21:42)
[2017-05-19] MEDS ORDERED: LIDOCAINE 2% INJ 100 MG/5 ML SDV (FOR ANES.) As Ordered ONE (07:10)
[2017-05-19] MEDS ORDERED: MIDAZOLAM INJ 2 MG/2 ML VIAL (J2250) As Ordered ONE (07:10)
[2017-05-19] MEDS ORDERED: ROCURONIUM BROMIDE 50 MG/5 ML VIAL/SYRINGE As Ordered ONE (07:10)
[2017-05-19] MEDS ORDERED: PROPOFOL 200 MG/20 ML VIAL As Ordered ONE (07:10)
[2017-05-19] MEDS ORDERED: fentaNYL 100 MCG/2 ML INJECTION (J3010) As Ordered ONE ×2 (07:10→10:32)
[2017-05-19] MEDS ORDERED: SUCCINYLCHOLINE 100 MG/5 ML SYRINGE (J0330) As Ordered ONE (07:10)
[2017-05-19] MEDS ORDERED: ONDANSETRON 4MG/2ML VIAL (J2405) As Ordered ONE (07:10)
[2017-05-19] MEDS: METOCLOPRAMIDE 5 MG TAB PO SCH ×3 (07:30→17:11)
[2017-05-19] MEDS ORDERED: HYDROmorphone HCL 2 MG/ML 1ML VIAL (J1170) As Ordered ONE (08:39)
[2017-05-19] MEDS ORDERED: PHENYLephrine HCL 500 MCG/5 ML (100MCG/ML) SYRINGE (J2370) As Ordered ONE (08:46)
[2017-05-19] MEDS: SYMBICORT 160/4.5MCG INHALER 6GM INH SCH ×2 (09:00→20:48)
[2017-05-19] MEDS: fentaNYL 100 MCG/2 ML INJECTION (J3010) IV PRN ×4 (10:30→10:57)
[2017-05-19] MEDS ORDERED: diphenhydrAMINE INJ 50MG/ML VIAL (J1200) IV PRN (10:30)
[2017-05-19] MEDS ORDERED: NALOXONE INJ 0.4 MG/1 ML VIAL (J2310) IV PRN (10:30)
[2017-05-19] MEDS ORDERED: ONDANSETRON 4MG/2ML VIAL (J2405) IV PRN ×2 (10:30→10:45)
[2017-05-19] MEDS ORDERED: NALBUPHINE HCL 10 MG/ML AMP (J2300) IV PRN (10:30)
[2017-05-19] MEDS ORDERED: EPIDURAL/PCA KEYS XX PRN (10:30)
[2017-05-19] MEDS ORDERED: MORPHINE 2 MG/ML 1ML SYRINGE IV PRN (10:45)
[2017-05-19] MEDS ORDERED: LR 1,000 ML IV SCH (10:45)
[2017-05-19] MEDS ORDERED: MORPHINE 2 MG/ML 1ML SYRINGE As Ordered ONE (11:00)
[2017-05-19] MEDS ORDERED: MORPHINE 1MG/ML IN 0.9% NACL 100ML IV BAG As Ordered ONE (11:06)
[2017-05-19] MEDS: MORPHINE 1MG/ML IN 0.9% NACL 100ML IV BAG IV PRN (11:10)
[2017-05-19] MEDS: TOUJEO SQ SCH (12:03)
[2017-05-19] MEDS: ACETAMINOPHEN TAB 650MG DOSE (2X325MG) PO SCH ×3 (12:20→23:03)
[2017-05-19] MEDS: VERAPAMIL 40 MG TAB PO SCH ×2 (12:21→21:40)
[2017-05-19] MEDS: DOCUSATE SODIUM 100 MG CAP PO SCH ×2 (12:21→21:39)
[2017-05-19] MEDS: DULoxetine 30 MG CAP (CYMBALTA) PO SCH ×2 (12:21→21:38)
[2017-05-19] MEDS: OMEPRAZOLE 20 MG CAP PO SCH ×2 (12:21→21:39)
[2017-05-19] MEDS: DIVALPROEX 250 MG TAB PO SCH ×2 (12:22→21:39)
[2017-05-19] MEDS: SENOKOT S TAB PO SCH ×2 (12:22→21:39)
[2017-05-19] MEDS: ALPRAZolam 0.5 MG TAB PO PRN (12:22)
[2017-05-19] MEDS: PREGABALIN 100 MG CAP (LYRICA) PO SCH ×2 (12:22→21:39)
[2017-05-19] MEDS: LINEZOLID 600MG TABLET (ZYVOX) PO SCH ×2 (12:23→21:39)
--- NOTE | 2017-05-19 13:34 | ROOPDOC ---
[facility] Report Of Operation Report of Operation DATE OF PROCEDURE: 05/17/17 PREPROCEDURE DIAGNOSES: Poor IV access. POSTPROCEDURE DIAGNOSES: Poor IV access. PROCEDURE: Ultrasound and fluoroscopic guided right internal jugular vein 20 cm tip to cuff tunneled central venous catheter placement. SURGEON: Dr. Donnie Caballero MD [employer] CASHIER: Leidy Sunshine licensed technician preventative medicine. INDICATION: Patient is a 46-year-old white female with poor IV access] and who requires access for blood draws, medications, and who is scheduled for surgical intervention. Patient was evaluated will undergo right internal jugular vein central venous tunneled catheter placement. Risks benefits and alternative treatment options were discussed with the patient. Benefits included but were not limited to access for hemodialysis. Alternative treatment options included but were not limited to no intervention. The risks included but were not limited to infection, bleeding, pneumothorax, hemothorax, possible need for open surgical intervention, cerebrovascular accident, myocardial infarction, pulmonary embolus, DVT, loss of limb, loss of life and poor outcome. All the patient's questions were answered, the patient understands the risks benefits and alternative treatment options, patient agrees to proceed with a right internal jugular vein tunneled central venous catheter placement. ANESTHESIA: Local with sedation: 20 cc of 2 % lidocaine. ESTIMATED BLOOD LOSS: 20 cc. IVF: 100 cc FLUOROSCOPIC TIME: min. CONTRAST: None COMPLICATIONS: None DRAINS: None SPECIMENS: None IMPLANTS: Right internal jugular vein 20 cm tip to cuff tunneled central venous catheter with insertion of power Puente poly-urethane catheter with SureCuff. PROCEDURE: Patient was taken to the angiography suite, placed supine on the angiography room table and after performing a time out confirming the correct patient and procedure, the patient was prepped and draped in a standard surgical fashion. Ultrasound was used to evaluate the right internal jugular vein, which was noted to be easily compressible, free of thrombus and widely patent. Ultrasound was then used to guide cannulation of the date internal jugular vein with a micro-puncture needle after anesthetizing the overlying skin with 2 % lidocaine. Ultrasound guidance for vascular access was performed with concurrent real-time ultrasound visualization of the needle entering into the right internal jugular vein, with permanent recording of the ultrasound guidance with a hard copy image preserved. The micropuncture wire was then advanced to the micropuncture needle which was upsized to a micropuncture sheath. An Amplatz wire was then advanced to the micropuncture sheath under fluoroscopic guidance. The right internal jugular vein was then sequentially dilated under fluoroscopic guidance and an introducer sheath was positioned. A 20 cm tip to cuff catheter was then tunneled through a puncture wound in the right chest and brought out at the puncture wound at the right internal jugular vein entry site after anesthetizing the overlying skin with 2 % lidocaine. The catheter was advanced through the introducer sheath and positioned with the tip in the superior vena cava right atrial junction under fluoroscopic guidance. Both ports of the catheter were then aspirated, noted to aspirate easily and then flushed with heparinized saline. The catheter was secured to the anterior chest wall using 2-0 Prolene suture after anesthetizing the overlying skin with 2 % lidocaine. The puncture wound in the right neck was closed using a 4-0 Vicryl suture in an inverted interrupted fashion. All instrument, sponge and needle counts were correct at the end of the case. There were no complications. Dr. Caballero was present for and directed the entire case. The tunneled central venous catheter is stable for use for access. RADIOLOGIC SUPERVISION AND INTERPRETATION: The initial ultrasound of the right internal jugular vein showed the vein to be widely patent, easily compressible and free of thrombus. Ultrasound was then used to guide cannulation of the right internal jugular vein with a hard copy image preserved. Ultrasound guidance for vascular access was performed with concurrent real-time ultrasound visualization of the needle entering into the right internal jugular vein, with permanent recording of the ultrasound guidance with a hard copy image preserved.The right internal jugular vein was sequentially dilated under fluoroscopic guidance. The final fluoroscopic image showed the catheter to be in good position and good alignment with the tip in the superior vena cava right atrial junction, with no pneumothorax or hemothorax present. The tunneled central venous catheter is stable for used for access. Yung Caballero MD May 19, 2017 13:34
[2017-05-19] MEDS: WARFARIN SOD 2 MG TAB PO SCH (17:11)
[2017-05-19] MEDS: rOPINIRole 1MG TAB PO SCH (21:37)
[2017-05-19] MEDS: traZODone 100 MG TAB PO SCH (21:38)
[2017-05-19] MEDS: QUEtiapine FUMARATE 200 MG TAB PO SCH (21:38)
[2017-05-19] MEDS: SERTRALINE HCL 50 MG TAB PO SCH (21:39)
[2017-05-19] MEDS: MONTELUKAST 10 MG TAB PO SCH (21:40)
[2017-05-19] MEDS: TOUJEO SC SCH (21:41)
[2017-05-20 02:00] VITALS: BP 123/76
[2017-05-20] MEDS: MORPHINE 1MG/ML IN 0.9% NACL 100ML IV BAG IV PRN (04:50)
[2017-05-20] MEDS: SODIUM CHLORIDE 0.9% INJ 10 ML SYR IV SCH ×3 (05:19→22:00)
[2017-05-20] MEDS: ACETAMINOPHEN TAB 650MG DOSE (2X325MG) PO SCH ×4 (05:19→23:12)
[2017-05-20 05:48] LABS: BASO % 0.5 % (0.0-1.0); EOS # 0.2 K/mm3 (0.0-0.50); EOS % 2.4 % (0.0-3.0); LARGE UNSTAINED CELL # 0.3 K/mm3 (0.0-0.4); LARGE UNSTAINED CELL % 2.8 % (0.0-4.0); LYMPH # 1.8 K/mm3 (1.5-4.5); LYMPH % 16.4 % (24.0-44.0); MEAN CORPUSCULAR HEMOGLOBIN 25.2 pg (27.0-33.0); MEAN CORPUSCULAR HGB CONC 31.5 g/dl (32.0-36.5); MEAN CORPUSCULAR VOLUME 79.9 fl (80.0-96.0); MONO # 0.7 K/mm3 (0.0-0.8); MONO % 7.2 % (0.0-5.0); NEUTROPHILS # 6.4 K/mm3 (1.8-7.7); NEUTROPHILS % 70.6 % (36.0-66.0); PLATELET COUNT, AUTOMATED 305 k/mm3 (150-450); RED CELL DISTRIBUTION WIDTH 14.7 % (11.5-14.5); WHITE BLOOD COUNT 9.1 K/mm3 (4.0-10.0)
[2017-05-20 06:00] VITALS: BP 167/76
[2017-05-20 06:01] LABS: INR 1.2
[2017-05-20 06:07] LABS: ALBUMIN/GLOBULIN RATIO 0.39 (1.00-1.93); BILIRUBIN,TOTAL 0.2 MG/DL (0.2-1.0); CALCIUM LEVEL 7.8 MG/DL (8.5-10.1); CREATININE FOR GFR 1.64 MG/DL (0.55-1.02); GLOMERULAR FILTRATION RATE 35.7 (>58); POTASSIUM SERUM 4.5 MEQ/L (3.5-5.1); TOTAL PROTEIN 7.1 GM/DL (6.4-8.2)
[2017-05-20] MEDS: D5W/0.45% SODIUM CHLORIDE 1,000 ML IV SCH ×3 (07:29→23:46)
[2017-05-20] MEDS: DULoxetine 30 MG CAP (CYMBALTA) PO SCH ×2 (08:07→21:59)
[2017-05-20] MEDS: METOCLOPRAMIDE 5 MG TAB PO SCH ×3 (08:07→17:58)
[2017-05-20] MEDS: VERAPAMIL 40 MG TAB PO SCH ×2 (08:07→21:00)
[2017-05-20] MEDS: OMEPRAZOLE 20 MG CAP PO SCH ×2 (08:07→22:04)
[2017-05-20] MEDS: LINEZOLID 600MG TABLET (ZYVOX) PO SCH ×2 (08:08→21:59)
[2017-05-20] MEDS: SENOKOT S TAB PO SCH ×2 (08:08→22:03)
[2017-05-20] MEDS: DOCUSATE SODIUM 100 MG CAP PO SCH ×2 (08:08→21:00)
[2017-05-20] MEDS: PREGABALIN 100 MG CAP (LYRICA) PO SCH (08:08)
[2017-05-20] MEDS: DIVALPROEX 250 MG TAB PO SCH ×2 (08:08→21:58)
[2017-05-20] MEDS: HUMALOG 200 UNIT/ML SC SCH ×4 (08:09→21:00)
[2017-05-20] MEDS: TOUJEO SQ SCH (08:10)
[2017-05-20] MEDS: SYMBICORT 160/4.5MCG INHALER 6GM INH SCH ×2 (08:16→20:01)
[2017-05-20 10:00] VITALS: BP 124/77
--- NOTE | 2017-05-20 10:42 | IPNPDOC ---
Subjective Date Seen The patient was seen on 05/20/17. Subjective Chief Complaint/HPI The patient is a 46-year-old female admitted with a reason for visit of Recurrent Infection L Foot, Diabetes. Events since last encounter Pt this morning c/o pain in her leg, states that she feels like her leg/foot is still there. General: Reports: Fatigue Constitutional: Denies: Chills, Fever ENT: Denies: Head Aches Pulmonary: Denies: Dyspnea, Cough Cardiovascular: Denies: Chest Pain, Palpitations Gastrointestinal: Denies: Nausea, Vomiting, Diarrhea Objective Physical Examination General Exam: Positive: Cooperative, No Acute Distress, Other (Pt asleep) ENT Exam: Positive: Mucous membr. moist/pink Chest Exam: Positive: Clear to auscultation, Normal air movement Heart Exam: Positive: Rate Normal, Normal S1, Normal S2 Abdomen Exam: Positive: Normal bowel sounds, Soft, Negative: Tenderness Extremity Exam: Negative: Edema (LLE BKA) Skin Exam: Positive: Other skin issue (Left foot wrapped in gauze; area around gauze is red and tender to palpation) Assessment /Plan Problems (1) MELODY (acute kidney injury) Problem Text: 05/20 up to 34/1.6, K 4.6 (27/1.1)-UOP 200 cc in last 9H-check renal US/UA/UCX, maintain oropeza placed 05/19 post-op 05/19/17 D51/2 NS 100/H started baseline cr 1.0-1.1 (2) Osteomyelitis of left foot Status: Chronic Response to Treatment: Stable Discussed With: Nurse, Patient Problem Specific Plan: Monitor Clinically Problem Text: 05/20 - OR 05/19, Pt sedated from pain medications. per pt pain not controlled, she was asleep when I entered the room. Zyvox has been continued post op 05/18 Pt is scheduled for the OR 05/[address] Bender and Dr Guerra at 6 am. Central line access has been placed. Will make NPO after midnight and will hold this evening's dose of lovenox in anticipation of surgery. She will cont with Zyvox orally for now. (3) Diabetic ulcer of left foot Status: Chronic Response to Treatment: Stable Problem Text: See above. (4) Factor 5 Leiden mutation, heterozygous Status: Chronic Problem Text: 05/20 - Warfarin restarted last night, INR 1.2, will cont with Lovenox until therapeutic. 05/18 She has been on Lovenox 120 mg SQ BID; hold dose 8 PM in anticipation of surgery 83 AM. INR <2 on 05/18/17 (5) Uncontrolled diabetes mellitus Onset Date: 11/12/2014 Status: Chronic Response to Treatment: Stable, Uncontrolled Problem Specific Plan: Monitor Clinically Problem Text: 05/20 - Adjust Toujeo as needed for appetite. 05/18 Home Toujeo decreased due to being NPO aftermidnight; TOUJEO DOSE WILL NEED TO BE INCREASED AGAIN ONCE SHE IS EATING. Home dose Toujeo 125 U qAM, 100U qPM; due to being NPO aftermidnight, will cut doses in half to 50U this evening and 65U in the morning Change fingersticks to Q6H once NPO. (6) Anemia Status: Chronic Problem Text: 05/20 - Hgb 8.1 today, monitor closely given anticoags 05/18 - Hgb stable at 8.6 today 05/17 8.4, MCV 79-obvious caution on VKA and Lovenox-check Fe/HO 05/16 hgb 9.8 baseline hgb 9s (7) Hypertension Status: Chronic Problem Text: Stable on solely verapamil Plan/VTE VTE Prophylaxis Ordered?: Yes VS, I&O, 24H, Fishbone Vital Signs/I&O Vital Signs Date Time Temp Pulse Resp B/P (MAP) Pulse Ox O2 Delivery O2 Flow Rate FiO2 05/20/17 08:07 95 136/71 05/20/17 06:00 97.5 20 98 Nasal Cannula 2.0 I&O- Last 24 Hours up to 6 AM 05/20/17 06:00 Intake Total 4270 ml Output Total 230 ml Balance 4040 ml Laboratory Data 24H LABS Laboratory Tests 2 05/19/17 11:53: Bedside Glucose (Misc Panel) 149H 05/19/17 16:30: Bedside Glucose (Misc Panel) 120H 05/19/17 20:43: Bedside Glucose (Misc Panel) 162H 05/20/17 05:36: White Blood Count 9.1, Red Blood Count 3.20L, Hemoglobin 8.1L, Hematocrit 25.6L , Mean Corpuscular Volume 79.9L, Mean Corpuscular Hemoglobin 25.2L, Mean Corpuscular Hemoglobin Concent 31.5L, Red Cell Distribution Width 14.7H, Platelet Count 305, Neutrophils (%) (Auto) 70.6H, Lymphocytes (%) (Auto) 16.4L, Monocytes (%) (Auto) 7.2H, Eosinophils (%) (Auto) 2.4, Basophils (%) (Auto) 0.5 , Neutrophils # (Auto) 6.4, Lymphocytes # (Auto) 1.8, Monocytes # (Auto) 0.7, Eosinophils # (Auto) 0.2, Basophils # (Auto) 0.0, Large Unclassified Cells % 2.8 , Large Unclassified Cells # 0.3, Prothrombin Time 15.4H, Prothromb Time International Ratio 1.20, Anion Gap 11, Glomerular Filtration Rate 35.7L, Blood Urea Nitrogen 34H, Creatinine 1.64#H, Sodium Level 138, Potassium Level 4.5, Chloride Level 103, Carbon Dioxide Level 24, Calcium Level 7.8L, Aspartate Amino Transf (AST/SGOT) 37, Alanine Aminotransferase (ALT/SGPT) 27, Alkaline Phosphatase 242H, Total Bilirubin 0.2, Total Protein 7.1, Albumin 2.0L, Albumin/ Globulin Ratio 0.39L CBC/BMP Laboratory Tests 05/20/17 05:36 Red Blood Count 3.20 L, Mean Corpuscular Volume 79.9 L, Mean Corpuscular Hemoglobin 25.2 L, Mean Corpuscular Hemoglobin Concent 31.5 L, Red Cell Distribution Width 14.7 H, Neutrophils (%) (Auto) 70.6 H, Lymphocytes (%) (Auto ) 16.4 L, Monocytes (%) (Auto) 7.2 H, Eosinophils (%) (Auto) 2.4, Basophils (%) (Auto) 0.5, Neutrophils # (Auto) 6.4, Lymphocytes # (Auto) 1.8, Monocytes # ( Auto) 0.7, Eosinophils # (Auto) 0.2, Basophils # (Auto) 0.0, Calcium Level 7.8 L , Aspartate Amino Transf (AST/SGOT) 37, Alanine Aminotransferase (ALT/SGPT) 27, Alkaline Phosphatase 242 H, Total Bilirubin 0.2, Total Protein 7.1, Albumin 2.0 L LATASHA STRANGE PA-C May 20, 2017 10:42 Rashid Morgan M.D. May 20, 2017 16:09
[2017-05-20] MEDS ORDERED: ENOXAPARIN 120 MG/0.8 ML SYR (J1650) SC SCH (11:00)
[2017-05-20 14:00] VITALS: BP 134/65
[2017-05-20] MEDS ORDERED: MORPHINE 1MG/ML IN 0.9% NACL 100ML IV BAG IV PRN ×2 (16:30→16:45)
[2017-05-20] MEDS: WARFARIN SOD 2 MG TAB PO SCH (17:57)
[2017-05-20 18:00] VITALS: BP 134/73
--- NOTE | 2017-05-20 18:48 | REP ---
Renal ultrasound: 05/20/2017 Comparison 10/31/2016. Clinical history: Acute kidney injury. Findings: The right kidney is 10.4 x 6 x 6.3 cm. The left kidney is 12.5 x 4.8 x 5.8 cm. On the previous study, the right was 12.4 cm and the left 13 cm. This implies some interval atrophy of that kidney. The kidney cortex still appears somewhat less echogenic than the adjacent liver. There is no hydronephrosis, hydroureter, stone, cyst or solid mass. No perinephric fluid. Bladder was empty and could not be evaluated. Impression: 1. Interval atrophy of the right kidney now 10.4 cm. It was 12.4 cm in October of this year. Some of this may be artifact of a limited sonographic window tonight, but the cortical thickness also appears decreased. There is increased sinus fat. No hydronephrosis, stone or mass on either side. 2. I cannot confirm definite medical renal disease by ultrasound as cortex appears slightly less echogenic than the adjacent liver. Signed by Lei Boucher MD 05/20/2017 10:28 P
[2017-05-20] MEDS: TOUJEO SC SCH (21:00)
[2017-05-20 21:40] VITALS: BP 112/91
[2017-05-20] MEDS: SERTRALINE HCL 50 MG TAB PO SCH (22:00)
[2017-05-20] MEDS: ALPRAZolam 0.5 MG TAB PO PRN (22:00)
[2017-05-20] MEDS: rOPINIRole 1MG TAB PO SCH (22:01)
[2017-05-20] MEDS: traZODone 100 MG TAB PO SCH (22:01)
[2017-05-20] MEDS: MONTELUKAST 10 MG TAB PO SCH (22:03)
[2017-05-20] MEDS: QUEtiapine FUMARATE 200 MG TAB PO SCH (22:04)
[2017-05-21 01:45] VITALS: BP 129/65
[2017-05-21] MEDS: SODIUM CHLORIDE 0.9% INJ 10 ML SYR IV SCH ×3 (05:43→22:00)
[2017-05-21] MEDS: ACETAMINOPHEN TAB 650MG DOSE (2X325MG) PO SCH ×3 (05:43→18:46)
[2017-05-21 06:00] VITALS: BP 138/63
[2017-05-21 06:04] LABS: MEAN CORPUSCULAR HEMOGLOBIN 25.6 pg (27.0-33.0); MEAN CORPUSCULAR HGB CONC 32.7 g/dl (32.0-36.5); MEAN CORPUSCULAR VOLUME 78.1 fl (80.0-96.0); RED CELL DISTRIBUTION WIDTH 14.4 % (11.5-14.5); WHITE BLOOD COUNT 8.4 K/mm3 (4.0-10.0)
[2017-05-21 06:05] LABS: INR 1.38
[2017-05-21 06:15] LABS: ALBUMIN 1.7 GM/DL (3.2-5.2); CALCIUM LEVEL 7.1 MG/DL (8.5-10.1); CREATININE FOR GFR 1.16 MG/DL (0.55-1.02); GLOMERULAR FILTRATION RATE 53.3 (>58); PHOSPHORUS LEVEL 3.5 MG/DL (2.5-4.9)
[2017-05-21 06:18] LABS: POTASSIUM SERUM 5.2 MEQ/L (3.5-5.1)
[2017-05-21] MEDS: SYMBICORT 160/4.5MCG INHALER 6GM INH SCH ×2 (08:55→21:00)
[2017-05-21 10:00] VITALS: BP 135/58
[2017-05-21] MEDS: D5W/0.45% SODIUM CHLORIDE 1,000 ML IV SCH ×2 (10:22→17:12)
[2017-05-21] MEDS: VERAPAMIL 40 MG TAB PO SCH ×2 (10:23→21:42)
[2017-05-21] MEDS: LINEZOLID 600MG TABLET (ZYVOX) PO SCH ×2 (10:23→21:43)
[2017-05-21] MEDS: METOCLOPRAMIDE 5 MG TAB PO SCH ×3 (10:23→18:46)
[2017-05-21] MEDS: DOCUSATE SODIUM 100 MG CAP PO SCH ×2 (10:23→21:43)
[2017-05-21] MEDS: OMEPRAZOLE 20 MG CAP PO SCH ×2 (10:23→21:42)
[2017-05-21] MEDS: DIVALPROEX 250 MG TAB PO SCH ×2 (10:23→21:43)
[2017-05-21] MEDS: DULoxetine 30 MG CAP (CYMBALTA) PO SCH ×2 (10:23→21:42)
[2017-05-21] MEDS: ENOXAPARIN 120 MG/0.8 ML SYR (J1650) SC SCH (10:24)
[2017-05-21] MEDS: SENOKOT S TAB PO SCH ×2 (10:24→21:43)
[2017-05-21] MEDS: HUMALOG 200 UNIT/ML SC SCH ×4 (10:29→21:00)
[2017-05-21] MEDS: TOUJEO SQ SCH (10:29)
[2017-05-21 13:50] VITALS: BP 131/66
--- NOTE | 2017-05-21 13:59 | IPNPDOC ---
Subjective Date Seen The patient was seen on 05/21/17. Subjective Chief Complaint/HPI The patient is a 46-year-old female admitted with a reason for visit of Recurrent Infection L Foot, Diabetes. Events since last encounter Patient seen and examined early this morning at about 07:30. She was tired but awake and alert. She is agreeable to blood transfusion. Constitutional: Denies: Chills, Fever ENT: Denies: Head Aches Skin: Denies: Rash Pulmonary: Denies: Dyspnea, Cough Cardiovascular: Denies: Chest Pain Gastrointestinal: Denies: Nausea, Vomiting, Abdominal Pain Objective Physical Examination General Exam: Positive: Cooperative, No Acute Distress ENT Exam: Positive: Mucous membr. moist/pink Chest Exam: Positive: Clear to auscultation, Normal air movement Heart Exam: Positive: Rate Normal, Normal S1, Normal S2 Abdomen Exam: Positive: Normal bowel sounds, Soft, Negative: Tenderness Extremity Exam: Negative: Edema (LLE BKA) Skin Exam: Positive: Other skin issue (Left foot wrapped in gauze) Assessment /Plan Problems (1) Anemia Status: Chronic Problem Text: 05/21 - Hgb 6.8 today, so patient consent for blood transfusion was obtained and 2 U pRBCs were ordered; will recheck CBC 1 hour after transfusion is completed. Reminded nurse to send stool for occult blood. baseline hgb 9s (2) MELODY (acute kidney injury) Problem Text: 05/21 - Cr improved today to 1.16; UOP improved this morning with 550 out prior to 07:00 am; IVF held for pRBC transfusion and will then be restarted; 05/20: Renal ultrasound: No hydronephrosis, stone or mass on either side. 05/20 up to 34/1.6, K 4.6 (27/1.1)-UOP 200 cc in last 9H-check renal US/UA/UCX, maintain oropeza placed 05/19 post-op 05/19/17 D51/2 NS 100/H started baseline cr 1.0-1.1 (3) Osteomyelitis of left foot Status: Chronic Response to Treatment: Stable Discussed With: Nurse, Patient Problem Specific Plan: Monitor Clinically Problem Text: S/p OR 05/19 for LLE BKA. - Pain control per Dr. Vargas - Zyvox has been continued post op (4) Diabetic ulcer of left foot Status: Chronic Response to Treatment: Stable Problem Text: See above. (5) Factor 5 Leiden mutation, heterozygous Status: Chronic Problem Text: Warfarin restarted 05/19 post-op. Will cont with Lovenox 120 mg SC BID until therapeutic. (6) Uncontrolled diabetes mellitus Onset Date: 11/12/2014 Status: Chronic Response to Treatment: Stable, Uncontrolled Problem Specific Plan: Monitor Clinically Problem Text: Will adjust Toujeo once appetite improves. 05/18 Home Toujeo decreased due to poor oral intake since surgery; 50 U qPM, 65U qAM. Home dose Toujeo 125 U qAM, 100U qPM. (7) Hypertension Status: Chronic Problem Text: Stable on verapamil Plan/VTE VTE Prophylaxis Ordered?: Yes Plan/Urinary Catheter Reason for insertion/continuin: Perioperative VS, I&O, 24H, Fishbone Vital Signs/I&O Vital Signs Date Time Temp Pulse Resp B/P (MAP) Pulse Ox O2 Delivery O2 Flow Rate FiO2 05/21/17 10:23 84 138/63 05/21/17 10:00 97.1 18 96 Nasal Cannula 2.0 I&O- Last 24 Hours up to 6 AM 05/21/17 06:00 Intake Total 2265 ml Output Total 1100 ml Balance 1165 ml Laboratory Data 24H LABS Laboratory Tests 2 05/20/17 20:42: Bedside Glucose (Misc Panel) 213H 05/20/17 22:18: Urine Appearance HAZY, Urine Color YELLOW, Urine pH 5.0, Urine Specific [place] 1.016, Urine Protein 1+H, Urine Glucose (UA) NEGATIVE, Urine Ketones NEGATIVE, Urine Urobilinogen 0.2, Urine Bilirubin NEGATIVE, Urine Leukocyte Esterase NEGATIVE, Urine Blood NEGATIVE, Urine Nitrite NEGATIVE, Urine WBC (Auto) 5H, Urine RBC (Auto) 6H, Urine Hyaline Casts (Auto) 3, Urine Bacteria (Auto) NEGATIVE, Urine Squamous Epithelial Cells 0, Urine Amorphous Sediment SMALLH, Urine Mucus (Auto) SMALL, Urine Sperm (Auto) 05/21/17 05:37: Prothrombin Time 17.3H, Prothromb Time International Ratio 1.38, Blood Urea Nitrogen 32H, Creatinine 1.16H, Sodium Level 140, Potassium Level 5.2H, Chloride Level 106, Carbon Dioxide Level 25, Anion Gap 9, Glomerular Filtration Rate 53.3L, Calcium Level 7.1L, Phosphorus Level 3.5, Albumin 1.7L 05/21/17 11:52: Bedside Glucose (Misc Panel) 209H CBC/BMP Laboratory Tests 05/21/17 05:37 Red Blood Count 2.65 L, Mean Corpuscular Volume 78.1 L, Mean Corpuscular Hemoglobin 25.6 L, Mean Corpuscular Hemoglobin Concent 32.7, Red Cell Distribution Width 14.4, Anion Gap 9 Microbiology Microbiology 05/20/17 Urine Culture, Received Pending RIAZ LOPEZ MD May 21, 2017 13:59
[2017-05-21] MEDS: WARFARIN SOD 2 MG TAB PO SCH (17:00)
[2017-05-21 17:38] LABS: MEAN CORPUSCULAR HEMOGLOBIN 26.8 pg (27.0-33.0); MEAN CORPUSCULAR VOLUME 86.3 fl (80.0-96.0); RED CELL DISTRIBUTION WIDTH 14.5 % (11.5-14.5); WHITE BLOOD COUNT 8.1 K/mm3 (4.0-10.0)
[2017-05-21 18:00] VITALS: BP 133/62
[2017-05-21 19:27] LABS: MEAN CORPUSCULAR HEMOGLOBIN 27.7 pg (27.0-33.0); MEAN CORPUSCULAR HGB CONC 34.6 g/dl (32.0-36.5); RED CELL DISTRIBUTION WIDTH 14.7 % (11.5-14.5); WHITE BLOOD COUNT 9.9 K/mm3 (4.0-10.0)
[2017-05-21 19:41] LABS: MEAN CORPUSCULAR VOLUME 79.9 fl (80.0-96.0)
[2017-05-21 19:48] LABS: MEAN CORPUSCULAR HEMOGLOBIN 26.7 pg (27.0-33.0); MEAN CORPUSCULAR HGB CONC 33.6 g/dl (32.0-36.5); MEAN CORPUSCULAR VOLUME 79.6 fl (80.0-96.0); RED CELL DISTRIBUTION WIDTH 14.9 % (11.5-14.5); WHITE BLOOD COUNT 10.1 K/mm3 (4.0-10.0)
[2017-05-21] MEDS: TOUJEO SC SCH (21:00)
[2017-05-21] MEDS: QUEtiapine FUMARATE 200 MG TAB PO SCH (21:41)
[2017-05-21] MEDS: rOPINIRole 1MG TAB PO SCH (21:41)
[2017-05-21] MEDS: traZODone 100 MG TAB PO SCH (21:42)
[2017-05-21] MEDS: MONTELUKAST 10 MG TAB PO SCH (21:43)
[2017-05-21] MEDS: SERTRALINE HCL 50 MG TAB PO SCH (21:43)
[2017-05-21] MEDS: ALPRAZolam 0.5 MG TAB PO PRN (21:44)
[2017-05-21 22:00] VITALS: BP 132/71
[2017-05-22 01:55] VITALS: BP 117/66
[2017-05-22 05:20] VITALS: BP 126/61
[2017-05-22] MEDS: ACETAMINOPHEN TAB 650MG DOSE (2X325MG) PO SCH ×5 (05:28→23:32)
[2017-05-22] MEDS: SODIUM CHLORIDE 0.9% INJ 10 ML SYR IV SCH ×3 (05:29→22:00)
[2017-05-22 06:00] LABS: MEAN CORPUSCULAR HEMOGLOBIN 27.2 pg (27.0-33.0); MEAN CORPUSCULAR VOLUME 80.1 fl (80.0-96.0); WHITE BLOOD COUNT 8.3 K/mm3 (4.0-10.0)
[2017-05-22 06:05] LABS: INR 1.35
[2017-05-22 06:32] LABS: ALBUMIN 1.8 GM/DL (3.2-5.2); ANION GAP 10 MEQ/L (8-16); BLOOD UREA NITROGEN 25 MG/DL (7-18); CALCIUM LEVEL 7.1 MG/DL (8.5-10.1); CARBON DIOXIDE LEVEL 25 MEQ/L (21-32); CHLORIDE LEVEL 108 MEQ/L (98-107); CREATININE FOR GFR 0.77 MG/DL (0.55-1.02); GLOMERULAR FILTRATION RATE > 60.0 (>58); GLUCOSE, FASTING 107 MG/DL (70-105); PHOSPHORUS LEVEL 3.4 MG/DL (2.5-4.9); POTASSIUM SERUM 4.5 MEQ/L (3.5-5.1); SODIUM LEVEL 143 MEQ/L (136-145)
[2017-05-22] MEDS: HUMALOG 200 UNIT/ML SC SCH ×4 (07:30→21:26)
[2017-05-22] MEDS: SYMBICORT 160/4.5MCG INHALER 6GM INH SCH ×2 (08:23→20:28)
[2017-05-22] MEDS: TOUJEO SQ SCH (09:00)
[2017-05-22] MEDS: METOCLOPRAMIDE 5 MG TAB PO SCH ×3 (09:15→17:31)
[2017-05-22] MEDS: DOCUSATE SODIUM 100 MG CAP PO SCH ×2 (09:16→21:28)
[2017-05-22] MEDS: OMEPRAZOLE 20 MG CAP PO SCH ×2 (09:16→21:27)
[2017-05-22] MEDS: DULoxetine 30 MG CAP (CYMBALTA) PO SCH ×2 (09:16→21:27)
[2017-05-22] MEDS: LINEZOLID 600MG TABLET (ZYVOX) PO SCH ×2 (09:17→21:28)
[2017-05-22] MEDS: VERAPAMIL 40 MG TAB PO SCH ×2 (09:18→21:28)
[2017-05-22] MEDS: DIVALPROEX 250 MG TAB PO SCH ×2 (09:19→21:28)
[2017-05-22] MEDS: ENOXAPARIN 120 MG/0.8 ML SYR (J1650) SC SCH ×2 (09:19→21:26)
[2017-05-22] MEDS: SENOKOT S TAB PO SCH ×2 (09:19→21:27)
[2017-05-22 10:00] VITALS: BP 152/78
[2017-05-22] MEDS ORDERED: PERCOCET 5MG/325MG TAB PO SCH ×2 (12:00→18:00)
[2017-05-22] MEDS: D5W/0.45% SODIUM CHLORIDE 1,000 ML IV SCH ×3 (12:10→20:25)
[2017-05-22] MEDS: MORPHINE 2 MG/ML 1ML SYRINGE IV PRN ×2 (13:54→19:59)
[2017-05-22 14:00] VITALS: BP 149/69
--- NOTE | 2017-05-22 16:26 | IPNPDOC ---
Subjective Date Seen The patient was seen on 05/22/17. Subjective Chief Complaint/HPI The patient is a 46-year-old female admitted with a reason for visit of Recurrent Infection L Foot, Diabetes. Events since last encounter Patient is more awake and alert today; she states she started feeling much better after she received the blood transfusion yesterday. Constitutional: Denies: Chills, Fever, Malaise Skin: Denies: Rash Pulmonary: Denies: Dyspnea, Cough Cardiovascular: Denies: Chest Pain, Palpitations Gastrointestinal: Denies: Nausea, Vomiting, Abdominal Pain, Diarrhea Musculoskeletal: Reports: Leg Pain (pain at left BKA stump), Denies: Neck Pain, Back Pain Objective Physical Examination General Exam: Positive: Alert, Cooperative, No Acute Distress Eye Exam: Positive: Conjunctiva & lids normal ENT Exam: Positive: Mucous membr. moist/pink Chest Exam: Positive: Clear to auscultation, Normal air movement Heart Exam: Positive: Rate Normal, Normal S1, Normal S2 Abdomen Exam: Positive: Normal bowel sounds, Soft, Negative: Tenderness Extremity Exam: Negative: Edema (LLE BKA wrapped in gauze) Neuro Exam: Positive: Normal Speech Psych Exam: Positive: Mental status NL, Mood NL, Oriented x 3 Assessment /Plan Problems (1) Osteomyelitis of left foot Status: Chronic Response to Treatment: Stable Discussed With: Nurse, Patient Problem Specific Plan: Monitor Clinically Problem Text: S/p OR 05/19 for LLE BKA. - Patient would prefer Percocet for pain control rather than Vicodin that she was on prior to admission; morphine REFRIGERATOR MOVER stopped today, started Percocet 5/325 mg Q6H scheduled and morphine 2mg IV Q1H PRN - Zyvox has been continued post op (2) Anemia Status: Chronic Problem Text: 05/23 - after pRBCs x2 yesterday, initial repeat Hgb was 7.0; it was determined that this was likely spurious as repeat peripheral was improved to 8.6. H/H remains stable today - will monitor. Hemoccult negative. 05/21 - Hgb 6.8 today, so patient consent for blood transfusion was obtained and 2 U pRBCs were ordered; will recheck CBC 1 hour after transfusion is completed. Reminded nurse to send stool for occult blood. baseline hgb 9s (3) MELODY (acute kidney injury) Status: Acute Response to Treatment: Improving Problem Text: Cr continues to improve 05/20: Renal ultrasound: No hydronephrosis, stone or mass on either side. 05/20 up to 34/1.6, K 4.6 (27/1.1)-UOP 200 cc in last 9H-check renal US/UA/UCX, maintain oropeza placed 05/19 post-op 05/19/17 D51/2 NS 100/H started baseline cr 1.0-1.1 (4) Diabetic ulcer of left foot Status: Chronic Response to Treatment: Stable Problem Text: See above. (5) Factor 5 Leiden mutation, heterozygous Status: Chronic Problem Text: Warfarin restarted 05/19 post-op. She is still subtherapeutic. Lovenox was held yesterday due to anemia and concern she might have GI bleed; hemoccult of stool was negative. Therefore, will give 5 mg dose of warfarin now. Given improved kidney function, will increase lovenox back to 120 BID (6) Uncontrolled diabetes mellitus Onset Date: 11/12/2014 Status: Chronic Response to Treatment: Stable, Uncontrolled Problem Specific Plan: Monitor Clinically Problem Text: BS has been low and Toujeo and sliding scale have had to be intermittently held; this is likely due to poor oral intake. Will decrease Toujeo further to 50 units QHS only (she did not receive a dose this morning) 05/18 Home Toujeo decreased due to poor oral intake since surgery; 50 U qPM, 65U qAM. Home dose Toujeo 125 U qAM, 100U qPM. (7) Hypertension Status: Chronic Problem Text: Stable on verapamil Plan/VTE VTE Prophylaxis Ordered?: Yes Plan/Urinary Catheter Reason for insertion/continuin: Perioperative VS, I&O, 24H, Fishbone Vital Signs/I&O Vital Signs Date Time Temp Pulse Resp B/P (MAP) Pulse Ox O2 Delivery O2 Flow Rate FiO2 05/22/17 14:04 18 05/22/17 14:00 96.2 89 149/69 (95) 94 Room Air 05/22/17 05:20 2.0 I&O- Last 24 Hours up to 6 AM 05/22/17 06:00 Intake Total 2160 ml Output Total 2200 ml Balance -40 ml Laboratory Data 24H LABS Laboratory Tests 2 05/21/17 16:43: Bedside Glucose (Misc Panel) 74 05/21/17 20:38: Bedside Glucose (Misc Panel) 154H 05/22/17 05:30: Prothrombin Time 17.0H, Prothromb Time International Ratio 1.35, Blood Urea Nitrogen 25H, Creatinine 0.77, Sodium Level 143, Potassium Level 4.5, Chloride Level 108H, Carbon Dioxide Level 25, Anion Gap 10, Glomerular Filtration Rate > 60.0, Calcium Level 7.1L, Phosphorus Level 3.4, Albumin 1.8L CBC/BMP Laboratory Tests 05/21/17 17:18 Red Blood Count 2.62 L, Mean Corpuscular Volume 86.3 #, Mean Corpuscular Hemoglobin 26.8 L, Mean Corpuscular Hemoglobin Concent 31.0 L, Red Cell Distribution Width 14.5 05/21/17 18:48 Red Blood Count 3.12 L, Mean Corpuscular Volume 79.9 #L, Mean Corpuscular Hemoglobin 27.7, Mean Corpuscular Hemoglobin Concent 34.6, Red Cell Distribution Width 14.7 H 05/21/17 19:32 Red Blood Count 3.26 L, Mean Corpuscular Volume 79.6 L, Mean Corpuscular Hemoglobin 26.7 L, Mean Corpuscular Hemoglobin Concent 33.6, Red Cell Distribution Width 14.9 H 05/22/17 05:30 Red Blood Count 3.11 L, Mean Corpuscular Volume 80.1, Mean Corpuscular Hemoglobin 27.2, Mean Corpuscular Hemoglobin Concent 34.0, Red Cell Distribution Width 15.0 H, Anion Gap 10 Microbiology Microbiology 05/21/17 Stool Occult Blood (JAMES) - Final, Complete 05/20/17 Urine Culture, Received Pending RIAZ LOPEZ MD May 22, 2017 16:25
[2017-05-22] MEDS: PERCOCET 5MG/325MG TAB PO SCH ×2 (16:38→23:32)
[2017-05-22] MEDS: WARFARIN SOD 5 MG TAB PO SCH (17:31)
[2017-05-22 18:00] VITALS: BP 154/67
[2017-05-22] MEDS: TOUJEO SC SCH (21:24)
[2017-05-22] MEDS: rOPINIRole 1MG TAB PO SCH (21:26)
[2017-05-22] MEDS: QUEtiapine FUMARATE 200 MG TAB PO SCH (21:26)
[2017-05-22] MEDS: SERTRALINE HCL 50 MG TAB PO SCH (21:27)
[2017-05-22] MEDS: MONTELUKAST 10 MG TAB PO SCH (21:27)
[2017-05-22] MEDS: traZODone 100 MG TAB PO SCH (21:28)
[2017-05-22 21:50] VITALS: BP 168/84
[2017-05-22] MEDS: ALPRAZolam 0.5 MG TAB PO PRN (23:35)
[2017-05-23] VITALS (7 sets, daily range): BP systolic 130–178; BP diastolic 68–84
[2017-05-23] MEDS: ACETAMINOPHEN TAB 650MG DOSE (2X325MG) PO SCH ×4 (05:46→22:57)
[2017-05-23] MEDS: SODIUM CHLORIDE 0.9% INJ 10 ML SYR IV SCH ×3 (05:47→20:50)
[2017-05-23] MEDS: PERCOCET 5MG/325MG TAB PO SCH ×4 (05:47→22:56)
[2017-05-23] MEDS: D5W/0.45% SODIUM CHLORIDE 1,000 ML IV SCH (05:53)
[2017-05-23 06:15] LABS: MEAN CORPUSCULAR HEMOGLOBIN 26.1 pg (27.0-33.0); MEAN CORPUSCULAR HGB CONC 32.6 g/dl (32.0-36.5); MEAN CORPUSCULAR VOLUME 80.1 fl (80.0-96.0); RED CELL DISTRIBUTION WIDTH 14.9 % (11.5-14.5); WHITE BLOOD COUNT 6.6 K/mm3 (4.0-10.0)
[2017-05-23 06:25] LABS: INR 1.55
[2017-05-23 06:46] LABS: ALBUMIN 1.7 GM/DL (3.2-5.2); ANION GAP 7 MEQ/L (8-16); BLOOD UREA NITROGEN 19 MG/DL (7-18); CALCIUM LEVEL 7.7 MG/DL (8.5-10.1); CARBON DIOXIDE LEVEL 27 MEQ/L (21-32); CHLORIDE LEVEL 110 MEQ/L (98-107); CREATININE FOR GFR 0.63 MG/DL (0.55-1.02); GLOMERULAR FILTRATION RATE > 60.0 (>58); GLUCOSE, FASTING 56 MG/DL (70-105); PHOSPHORUS LEVEL 3.3 MG/DL (2.5-4.9); POTASSIUM SERUM 4.3 MEQ/L (3.5-5.1); SODIUM LEVEL 144 MEQ/L (136-145)
[2017-05-23] MEDS: METOCLOPRAMIDE 5 MG TAB PO SCH ×3 (07:30→17:35)
[2017-05-23] MEDS: HUMALOG 200 UNIT/ML SC SCH ×2 (07:30→14:08)
[2017-05-23] MEDS: DULoxetine 30 MG CAP (CYMBALTA) PO SCH ×2 (08:25→20:45)
[2017-05-23] MEDS: DIVALPROEX 250 MG TAB PO SCH ×2 (08:25→20:44)
[2017-05-23] MEDS: SENOKOT S TAB PO SCH ×2 (08:25→20:45)
[2017-05-23] MEDS: LINEZOLID 600MG TABLET (ZYVOX) PO SCH ×2 (08:25→20:46)
[2017-05-23] MEDS: OMEPRAZOLE 20 MG CAP PO SCH ×2 (08:25→20:47)
[2017-05-23] MEDS: DOCUSATE SODIUM 100 MG CAP PO SCH ×2 (08:25→20:47)
[2017-05-23] MEDS: VERAPAMIL 40 MG TAB PO SCH ×2 (08:27→20:43)
[2017-05-23] MEDS: ENOXAPARIN 120 MG/0.8 ML SYR (J1650) SC SCH ×2 (08:30→20:48)
[2017-05-23] MEDS: SYMBICORT 160/4.5MCG INHALER 6GM INH SCH ×2 (08:36→21:00)
[2017-05-23] MEDS: MORPHINE 2 MG/ML 1ML SYRINGE IV PRN ×2 (08:46→10:50)
--- NOTE | 2017-05-23 11:56 | RO ---
DATE OF PROCEDURE: 05/19/2017 PREPROCEDURE DIAGNOSIS: Charcot foot with chronic nonhealing wound and osteomyelitis left foot. POSTOPERATIVE DIAGNOSIS: Charcot foot with chronic nonhealing wound and osteomyelitis left foot. PROCEDURE: Left below knee amputation. SURGEON: Dr. Jayden Bender. BRISKET PULLER: Dr. Ennis. ANESTHESIA:General ESTIMATED BLOOD LOSS: INDICATIONS FOR PROCEDURE: The patient is a 46-year-old woman who has medical problems which include obesity and diabetes. She has developed Charcot changes in her left ankle and foot. She has a chronic nonhealing wound on the plantar aspect of the foot. There are suggestions of underlying osteomyelitis and recurring infections. This wound has been present and without healing for perhaps 2 years. She is now for a left below-knee amputation. OPERATIVE PROCEDURE: The patient was taken to the operating room where she was placed under general endotracheal anesthesia. A Bishop catheter was inserted. The patient's left foot dressing was removed. She had a large open wound on the plantar aspect of the foot which was probably 8-10 cm in diameter. There was an area centrally that appeared slightly necrotic with an open area tracking deeper into the sole of the foot. There were areas of sloughing of the skin over the posterior heel. Her wound was covered with sterile gauze and wrapped with an occlusive bandage. The patient's left lower extremity was prepped from the upper thigh down to the proximal ankle. The foot was encased in an impervious stockinette and the leg was then draped. Initial inspection showed that there was some persisting edema in the lower leg, though it had improved somewhat from her previous exam. She had several tattoos down the left side of her lower leg. A skin marker was used to outline a standard below-knee amputation utilizing a longer posterior flap. The anterior incision was outlined approximately 12 cm or so distal to the joint line. The anterior half of the incision was made with a scalpel. The incision was deepened through the subcutaneous tissues using the electrocautery. The saphenous vein was encountered and was clamped and divided and ligated with Vicryl. The anterior muscles were divided down to the tibia and the periosteum of the tibia was scored. The lateral tissues were divided also primarily using the cautery. The vessel in this area was identified, clamped and divided. In this manner, the anterior and lateral aspects of the tibia were completely cleared and the periosteum scored. An opening was created posterior to the tibia. The periosteum was elevated approximately 2 to 2-1/2 cm proximally and the tibia was divided using the oscillating saw. The posterior skin incision was then made and deepened through the subcutaneous tissue and the fascia using the cautery. Several larger vessels were clamped and divided and ligated. The fibula was divided approximately 2 cm proximal to the level of tibial transection using a double-action bone cutter. The proximal portion of the lower leg was then angled anteriorly. A scalpel was used to divide all of the tissues posterior to the tibia down to the tip of the posterior flap. The major vessels were controlled with clamps. Several smaller bleeding points were clamped with hemostats and small bleeders were controlled with the cautery. The nerve was identified. This was freed proximally an additional several centimeters then transected with a scalpel and allowed to retract. The major vessels were then each identified and dissected free independently clamped, divided and ligated with #0 Vicryl ties. A number of smaller vessels within the muscles and along the fascia were suture ligated with #2-0 Vicryl sutures. In this manner, hemostasis was achieved. The wound was irrigated and inspected. The anterior aspect of the end of the tibia was beveled slightly using the oscillating saw. A trial approximation showed that there was slightly too much bulk in the posterior muscle flap to allow complete closure and a small area of the muscles and fascia was excised to allow for a better closure. The wound was again irrigated and inspected for hemostasis which was found to be excellent. The posterior flap was then folded anterior and multiple sutures of #0 Vicryl were placed to approximate the fascia along the entire length of the closure. The skin edges were then approximated with multiple interrupted simple sutures and several interrupted vertical mattress sutures of #4-0 Nylon. This appeared to give an excellent closure. The wound was covered with Adaptic and a bulky bandage was applied. Several layers of Kerlix and additional gauze were applied and a large stump sock was then placed over the entire bulky bandage. This was taped to the thigh. The patient tolerated the procedure well without apparent complication. She was awakened in the operating room, extubated and moved to the recovery room in stable condition. LAURIE
[2017-05-23] MEDS: ALPRAZolam 0.5 MG TAB PO PRN ×2 (14:59→21:04)
[2017-05-23] MEDS ORDERED: DEXTROSE 50% 50 ML SYRINGE IV PRN (15:15)
[2017-05-23] MEDS: WARFARIN SOD 5 MG TAB PO SCH (17:36)
[2017-05-23] MEDS: HumaLOG INSULIN (NovoLOG) PER UNIT SC SCH ×2 (17:40→21:00)
[2017-05-23] MEDS: rOPINIRole 1MG TAB PO SCH (20:41)
[2017-05-23] MEDS: QUEtiapine FUMARATE 200 MG TAB PO SCH (20:44)
[2017-05-23] MEDS: traZODone 100 MG TAB PO SCH (20:45)
[2017-05-23] MEDS: SERTRALINE HCL 50 MG TAB PO SCH (20:46)
[2017-05-23] MEDS: MONTELUKAST 10 MG TAB PO SCH (20:47)
[2017-05-23] MEDS: TOUJEO SC SCH (21:00)
[2017-05-24] VITALS (7 sets, daily range): BP systolic 143–180; BP diastolic 67–78
--- NOTE | 2017-05-24 00:48 | IPNPDOC ---
Subjective Date Seen The patient was seen on 05/23/17. Subjective Chief Complaint/HPI The patient is a 46-year-old female admitted with a reason for visit of Recurrent Infection L Foot, Diabetes. Events since last encounter Patient states she has been up and out of bed frequently now (s/p L BKA.) Her insulin requirements are significantly lower, though she states she has had good PO intake. Constitutional: Denies: Chills, Fever Pulmonary: Denies: Dyspnea, Cough Cardiovascular: Denies: Chest Pain, Palpitations Gastrointestinal: Denies: Nausea, Vomiting, Diarrhea, Constipation Genitourinary: Denies: Dysuria Musculoskeletal: Reports: Leg Pain, Other Symptoms ("phantom pain" in amputated limb) Psych: Denies: Mood Normal Objective Physical Examination General Exam: Positive: Alert, Cooperative, No Acute Distress Eye Exam: Positive: Conjunctiva & lids normal ENT Exam: Positive: Mucous membr. moist/pink Chest Exam: Positive: Clear to auscultation, Normal air movement Heart Exam: Positive: Rate Normal, Normal S1, Normal S2 Abdomen Exam: Positive: Normal bowel sounds, Soft, Negative: Tenderness Extremity Exam: Negative: Edema (LLE BKA wrapped in gauze) Neuro Exam: Positive: Normal Speech Psych Exam: Positive: Mental status NL, Mood NL, Oriented x 3 Assessment /Plan Problems (1) Below knee amputation status Permanent Comment: 05/19/2017 Last Edited By: Neeta Sloan DO on May 24, 2017 00:44 Problem Text: Working with PT. Taking PO well. Pain fairly well controlled. Plan home with services vs rehab; will assess continued progress with PT. (2) Osteomyelitis of left foot Status: Chronic Response to Treatment: Stable Discussed With: Nurse, Patient Problem Specific Plan: Monitor Clinically Problem Text: 05/23 -- Doing well postop. Working with PT. S/p OR 05/19 for LLE BKA. - Patient would prefer Percocet for pain control rather than Vicodin that she was on prior to admission; morphine SENIOR ARCHITECT stopped today, started Percocet 5/325 mg Q6H scheduled and morphine 2mg IV Q1H PRN - Zyvox has been continued post op (3) Anemia Status: Chronic Problem Text: 05/23 - after pRBCs x2 yesterday, initial repeat Hgb was 7.0; it was determined that this was likely spurious as repeat peripheral was improved to 8.6. H/H remains stable today - will monitor. Hemoccult negative. 05/21 - Hgb 6.8 today, so patient consent for blood transfusion was obtained and 2 U pRBCs were ordered; will recheck CBC 1 hour after transfusion is completed. Reminded nurse to send stool for occult blood. baseline hgb 9s (4) MELODY (acute kidney injury) Status: Acute Response to Treatment: Improving Problem Text: Cr continues to improve 05/20: Renal ultrasound: No hydronephrosis, stone or mass on either side. 05/20 up to 34/1.6, K 4.6 (27/1.1)-UOP 200 cc in last 9H-check renal US/UA/UCX, maintain oropeza placed 05/19 post-op 05/19/17 D51/2 NS 100/H started baseline cr 1.0-1.1 (5) Diabetic ulcer of left foot Status: Chronic Response to Treatment: Stable Problem Text: See above. (6) Factor 5 Leiden mutation, heterozygous Status: Chronic Problem Text: Warfarin restarted 05/19 post-op. She is still subtherapeutic. Lovenox was held yesterday due to anemia and concern she might have GI bleed; hemoccult of stool was negative. Therefore, will give 5 mg dose of warfarin now. Given improved kidney function, will increase lovenox back to 120 BID (7) Uncontrolled diabetes mellitus Onset Date: 11/12/2014 Status: Chronic Response to Treatment: Stable, Uncontrolled Problem Specific Plan: Monitor Clinically Problem Text: BS has been low and Toujeo and sliding scale have had to be intermittently held; this is likely due to poor oral intake. Will decrease Toujeo further to 50 units QHS only (she did not receive a dose this morning) 05/18 Home Toujeo decreased due to poor oral intake since surgery; 50 U qPM, 65U qAM. Home dose Toujeo 125 U qAM, 100U qPM. (8) Hypertension Status: Chronic Problem Text: Stable on verapamil Plan/VTE VTE Prophylaxis Ordered?: Yes Plan/Urinary Catheter Reason for insertion/continuin: Perioperative Disposition home vs rehab VS, I&O, 24H, Fishbone Vital Signs/I&O Vital Signs Date Time Temp Pulse Resp B/P (MAP) Pulse Ox O2 Delivery O2 Flow Rate FiO2 05/23/17 22:56 18 05/23/17 22:00 97.4 76 158/70 (99) 99 05/23/17 14:00 Room Air 05/23/17 09:00 2.0 I&O- Last 24 Hours up to 6 AM 05/24/17 06:00 Intake Total 780 ml Output Total 1675 ml Balance -895 ml Laboratory Data 24H LABS Laboratory Tests 2 05/23/17 05:20: Prothrombin Time 19.0H, Prothromb Time International Ratio 1.55, Blood Urea Nitrogen 19H, Creatinine 0.63, Sodium Level 144, Potassium Level 4.3, Chloride Level 110H, Carbon Dioxide Level 27, Anion Gap 7L, Glomerular Filtration Rate > 60.0, Calcium Level 7.7L, Phosphorus Level 3.3, Albumin 1.7L 05/23/17 07:23: Bedside Glucose (Misc Panel) 172H 05/23/17 11:37: Bedside Glucose (Misc Panel) 256H 05/23/17 16:39: Bedside Glucose (Misc Panel) 161H 05/23/17 20:35: Bedside Glucose (Misc Panel) 167H CBC/BMP Laboratory Tests 05/23/17 05:20 Red Blood Count 3.27 L, Mean Corpuscular Volume 80.1, Mean Corpuscular Hemoglobin 26.1 L, Mean Corpuscular Hemoglobin Concent 32.6, Red Cell Distribution Width 14.9 H, Anion Gap 7 L Microbiology Microbiology 05/21/17 Stool Occult Blood (JAMES) - Final, Complete 05/20/17 Urine Culture - Final, Complete NEETA SLOAN DO May 24, 2017 00:48
[2017-05-24] MEDS: ACETAMINOPHEN TAB 650MG DOSE (2X325MG) PO SCH ×3 (05:55→18:47)
[2017-05-24] MEDS: PERCOCET 5MG/325MG TAB PO SCH ×3 (05:55→18:48)
[2017-05-24] MEDS: SODIUM CHLORIDE 0.9% INJ 10 ML SYR IV SCH ×3 (05:56→22:38)
[2017-05-24 06:12] LABS: MEAN CORPUSCULAR HEMOGLOBIN 26.4 pg (27.0-33.0); MEAN CORPUSCULAR HGB CONC 33.2 g/dl (32.0-36.5); MEAN CORPUSCULAR VOLUME 79.3 fl (80.0-96.0); RED CELL DISTRIBUTION WIDTH 15.3 % (11.5-14.5); WHITE BLOOD COUNT 5.2 K/mm3 (4.0-10.0)
[2017-05-24 06:21] LABS: INR 2.65
[2017-05-24 06:55] LABS: ALBUMIN 1.9 GM/DL (3.2-5.2); ANION GAP 8 MEQ/L (8-16); BLOOD UREA NITROGEN 13 MG/DL (7-18); CALCIUM LEVEL 7.9 MG/DL (8.5-10.1); CARBON DIOXIDE LEVEL 28 MEQ/L (21-32); CHLORIDE LEVEL 111 MEQ/L (98-107); CREATININE FOR GFR 0.51 MG/DL (0.55-1.02); GLOMERULAR FILTRATION RATE > 60.0 (>58); GLUCOSE, FASTING 54 MG/DL (70-105); PHOSPHORUS LEVEL 3.2 MG/DL (2.5-4.9); SODIUM LEVEL 147 MEQ/L (136-145)
[2017-05-24] MEDS: HumaLOG INSULIN (NovoLOG) PER UNIT SC SCH ×4 (07:30→20:31)
[2017-05-24] MEDS: SYMBICORT 160/4.5MCG INHALER 6GM INH SCH ×2 (08:20→21:00)
[2017-05-24] MEDS: METOCLOPRAMIDE 5 MG TAB PO SCH ×3 (08:34→18:47)
[2017-05-24] MEDS: MORPHINE 2 MG/ML 1ML SYRINGE IV PRN (09:11)
[2017-05-24] MEDS: DOCUSATE SODIUM 100 MG CAP PO SCH ×2 (09:15→20:15)
[2017-05-24] MEDS: SENOKOT S TAB PO SCH ×2 (09:16→20:14)
[2017-05-24] MEDS: DULoxetine 30 MG CAP (CYMBALTA) PO SCH ×2 (09:16→20:12)
[2017-05-24] MEDS: LINEZOLID 600MG TABLET (ZYVOX) PO SCH ×2 (09:17→20:15)
[2017-05-24] MEDS: OMEPRAZOLE 20 MG CAP PO SCH ×2 (09:18→20:12)
[2017-05-24] MEDS: DIVALPROEX 250 MG TAB PO SCH ×2 (09:18→20:16)
[2017-05-24] MEDS: VERAPAMIL 40 MG TAB PO SCH (09:20)
[2017-05-24] MEDS: ENOXAPARIN 120 MG/0.8 ML SYR (J1650) SC SCH ×2 (09:21→20:17)
[2017-05-24] MEDS ORDERED: LISINOPRIL 10 MG TAB PO ONE (11:00)
[2017-05-24] MEDS: PREGABALIN 100 MG CAP (LYRICA) PO SCH ×2 (13:19→20:15)
[2017-05-24] MEDS: WARFARIN SOD 5 MG TAB PO SCH (18:47)
[2017-05-24] MEDS ORDERED: VERAPAMIL 40 MG TAB PO ONE (19:15)
[2017-05-24] MEDS: rOPINIRole 1MG TAB PO SCH (20:12)
[2017-05-24] MEDS: traZODone 100 MG TAB PO SCH (20:14)
[2017-05-24] MEDS: MONTELUKAST 10 MG TAB PO SCH (20:15)
[2017-05-24] MEDS: SERTRALINE HCL 50 MG TAB PO SCH (20:15)
[2017-05-24] MEDS: QUEtiapine FUMARATE 200 MG TAB PO SCH (20:16)
[2017-05-24] MEDS: ALPRAZolam 0.5 MG TAB PO PRN (20:27)
[2017-05-24] MEDS: TOUJEO SC SCH (20:28)
[2017-05-24] MEDS ORDERED: VERAPAMIL 40 MG TAB PO SCH (22:00)
[2017-05-25] VITALS (7 sets, daily range): BP systolic 136–182; BP diastolic 58–82
--- NOTE | 2017-05-25 00:43 | IPNPDOC ---
Subjective Date Seen The patient was seen on 05/25/17. Subjective Chief Complaint/HPI The patient is a 46-year-old female admitted with a reason for visit of Recurrent Infection L Foot, Diabetes. Events since last encounter Patient continues to do well s/p L BKA. She admits having some trouble with her mood, "Some days are better than others," and plans to discuss this with psych after discharge. Nursing notes hypertension today. Despite reductions in insulin, she continues to have trouble with hypoglycemia. Constitutional: Reports: Malaise, Fatigue, Denies: Chills, Fever Pulmonary: Denies: Dyspnea, Cough Cardiovascular: Denies: Chest Pain Gastrointestinal: Denies: Nausea, Vomiting, Diarrhea, Constipation Genitourinary: Denies: Dysuria Musculoskeletal: Reports: Leg Pain Psych: Reports: Depression, Denies: Mood Normal Objective Physical Examination General Exam: Positive: Alert, Cooperative, No Acute Distress Eye Exam: Positive: Conjunctiva & lids normal ENT Exam: Positive: Mucous membr. moist/pink Chest Exam: Positive: Clear to auscultation, Normal air movement Heart Exam: Positive: Rate Normal, Normal S1, Normal S2 Abdomen Exam: Positive: Normal bowel sounds, Soft, Negative: Tenderness Extremity Exam: Negative: Edema (LLE BKA wrapped in gauze) Neuro Exam: Positive: Normal Speech Psych Exam: Positive: Mental status NL, Mood NL, Oriented x 3 Assessment /Plan Problems (1) Below knee amputation status Permanent Comment: 05/19/2017 Last Edited By: Neeta Sloan DO on May 24, 2017 00:44 Problem Text: Working with PT. Taking PO well. Pain fairly well controlled. Plan home with services vs rehab; will assess continued progress with PT. (2) Osteomyelitis of left foot Status: Chronic Response to Treatment: Stable Discussed With: Nurse, Patient Problem Specific Plan: Monitor Clinically Problem Text: 05/23 -- Doing well postop. Working with PT. S/p OR 05/19 for LLE BKA. - Patient would prefer Percocet for pain control rather than Vicodin that she was on prior to admission; morphine TAX COMPLIANCE REPRESENTATIVE stopped today, started Percocet 5/325 mg Q6H scheduled and morphine 2mg IV Q1H PRN - Zyvox has been continued post op (3) Anemia Status: Chronic Problem Text: 05/23 - after pRBCs x2 yesterday, initial repeat Hgb was 7.0; it was determined that this was likely spurious as repeat peripheral was improved to 8.6. H/H remains stable today - will monitor. Hemoccult negative. 05/21 - Hgb 6.8 today, so patient consent for blood transfusion was obtained and 2 U pRBCs were ordered; will recheck CBC 1 hour after transfusion is completed. Reminded nurse to send stool for occult blood. baseline hgb 9s (4) MELODY (acute kidney injury) Status: Acute Response to Treatment: Improving Problem Text: Cr continues to improve 05/20: Renal ultrasound: No hydronephrosis, stone or mass on either side. 05/20 up to 34/1.6, K 4.6 (27/1.1)-UOP 200 cc in last 9H-check renal US/UA/UCX, maintain oropeza placed 05/19 post-op 05/19/17 D51/2 NS 100/H started baseline cr 1.0-1.1 (5) Diabetic ulcer of left foot Status: Chronic Response to Treatment: Stable Problem Text: See above. (6) Factor 5 Leiden mutation, heterozygous Status: Chronic Problem Text: Warfarin restarted 05/19 post-op. She is still subtherapeutic. Lovenox was held yesterday due to anemia and concern she might have GI bleed; hemoccult of stool was negative. Therefore, will give 5 mg dose of warfarin now. Given improved kidney function, will increase lovenox back to 120 BID (7) Uncontrolled diabetes mellitus Onset Date: 11/12/2014 Status: Chronic Response to Treatment: Stable, Uncontrolled Problem Specific Plan: Monitor Clinically Problem Text: BS has been low and Toujeo and sliding scale have had to be intermittently held; this is likely due to poor oral intake. Will decrease Toujeo further to 50 units QHS only (she did not receive a dose this morning) 05/18 Home Toujeo decreased due to poor oral intake since surgery; 50 U qPM, 65U qAM. Home dose Toujeo 125 U qAM, 100U qPM. (8) Hypertension Status: Chronic Problem Text: Stable on verapamil (9) HTN (hypertension) Status: Chronic Problem Text: Upon further chart review, patient has multiple home medications that were help upon admission. I restarted 2 of them, and will continue to adjust medication as necessary while we are seeing this patient. Plan/VTE VTE Prophylaxis Ordered?: Yes Plan/Urinary Catheter Reason for insertion/continuin: Perioperative VS, I&O, 24H, Fishbone Vital Signs/I&O Vital Signs Date Time Temp Pulse Resp B/P (MAP) Pulse Ox O2 Delivery O2 Flow Rate FiO2 05/24/17 22:40 68 152/66 05/24/17 22:00 97.2 20 99 05/24/17 18:00 Room Air 05/24/17 09:00 2.0 I&O- Last 24 Hours up to 6 AM 05/25/17 06:00 Intake Total 1060 ml Output Total 1850 ml Balance -790 ml Laboratory Data 24H LABS Laboratory Tests 2 05/24/17 05:52: Prothrombin Time 29.4H, Prothromb Time International Ratio 2.65, Blood Urea Nitrogen 13, Creatinine 0.51L, Sodium Level 147H, Potassium Level 4.0, Chloride Level 111H, Carbon Dioxide Level 28, Anion Gap 8, Glomerular Filtration Rate > 60.0, Calcium Level 7.9L, Phosphorus Level 3.2, Albumin 1.9L 05/24/17 06:07: Bedside Glucose (Misc Panel) 65L 05/24/17 06:47: Bedside Glucose (Misc Panel) 116H 05/24/17 11:29: Bedside Glucose (Misc Panel) 160H 05/24/17 16:46: Bedside Glucose (Misc Panel) 106H 05/24/17 20:31: Bedside Glucose (Misc Panel) 106H CBC/BMP Laboratory Tests 05/24/17 05:51 Red Blood Count 3.21 L, Mean Corpuscular Volume 79.3 L, Mean Corpuscular Hemoglobin 26.4 L, Mean Corpuscular Hemoglobin Concent 33.2, Red Cell Distribution Width 15.3 H 05/24/17 05:52 Anion Gap 8 Microbiology Microbiology 05/21/17 Stool Occult Blood (JAMES) - Final, Complete 05/20/17 Urine Culture - Final, Complete NEETA SLOAN DO May 25, 2017 00:43
[2017-05-25] MEDS: PERCOCET 5MG/325MG TAB PO SCH ×4 (01:15→17:49)
[2017-05-25] MEDS: ACETAMINOPHEN TAB 650MG DOSE (2X325MG) PO SCH ×4 (02:01→17:48)
[2017-05-25] MEDS: SODIUM CHLORIDE 0.9% INJ 10 ML SYR IV SCH ×3 (05:16→21:34)
[2017-05-25 05:26] LABS: MEAN CORPUSCULAR HEMOGLOBIN 26.5 pg (27.0-33.0); MEAN CORPUSCULAR HGB CONC 33.1 g/dl (32.0-36.5); MEAN CORPUSCULAR VOLUME 80.2 fl (80.0-96.0); RED CELL DISTRIBUTION WIDTH 15.3 % (11.5-14.5); WHITE BLOOD COUNT 4.8 K/mm3 (4.0-10.0)
[2017-05-25 05:39] LABS: INR 3.6
[2017-05-25 07:12] LABS: ALBUMIN 1.8 GM/DL (3.2-5.2); ANION GAP 8 MEQ/L (8-16); BLOOD UREA NITROGEN 15 MG/DL (7-18); CALCIUM LEVEL 7.6 MG/DL (8.5-10.1); CARBON DIOXIDE LEVEL 30 MEQ/L (21-32); CHLORIDE LEVEL 107 MEQ/L (98-107); CREATININE FOR GFR 0.68 MG/DL (0.55-1.02); GLOMERULAR FILTRATION RATE > 60.0 (>58); GLUCOSE, FASTING 141 MG/DL (70-105); POTASSIUM SERUM 3.5 MEQ/L (3.5-5.1); SODIUM LEVEL 145 MEQ/L (136-145)
[2017-05-25] MEDS: HumaLOG INSULIN (NovoLOG) PER UNIT SC SCH ×4 (08:21→21:42)
[2017-05-25] MEDS: ENOXAPARIN 120 MG/0.8 ML SYR (J1650) SC SCH ×2 (08:22→21:33)
[2017-05-25] MEDS: SENOKOT S TAB PO SCH ×2 (08:22→21:28)
[2017-05-25] MEDS: DIVALPROEX 250 MG TAB PO SCH ×2 (08:23→21:24)
[2017-05-25] MEDS: METOCLOPRAMIDE 5 MG TAB PO SCH ×3 (08:23→17:49)
[2017-05-25] MEDS: TORSEMIDE 10 MG TABLET PO SCH (08:23)
[2017-05-25] MEDS: PREGABALIN 100 MG CAP (LYRICA) PO SCH ×2 (08:23→21:25)
[2017-05-25] MEDS: LINEZOLID 600MG TABLET (ZYVOX) PO SCH ×2 (08:23→21:27)
[2017-05-25] MEDS: DULoxetine 30 MG CAP (CYMBALTA) PO SCH ×2 (08:24→21:27)
[2017-05-25] MEDS: SPIRONOLACTONE 25 MG TAB PO SCH (08:24)
[2017-05-25] MEDS: DOCUSATE SODIUM 100 MG CAP PO SCH ×2 (08:24→21:29)
[2017-05-25] MEDS: VERAPAMIL 40 MG TAB PO SCH ×2 (08:24→21:30)
[2017-05-25] MEDS: OMEPRAZOLE 20 MG CAP PO SCH ×2 (08:24→21:28)
[2017-05-25] MEDS: SYMBICORT 160/4.5MCG INHALER 6GM INH SCH ×2 (09:00→21:00)
[2017-05-25] MEDS: WARFARIN SOD 5 MG TAB PO SCH (15:24)
[2017-05-25] MEDS: LISINOPRIL 10 MG TAB PO SCH (15:52)
[2017-05-25] MEDS: rOPINIRole 1MG TAB PO SCH (21:26)
[2017-05-25] MEDS: QUEtiapine FUMARATE 200 MG TAB PO SCH (21:27)
[2017-05-25] MEDS: traZODone 100 MG TAB PO SCH (21:27)
[2017-05-25] MEDS: MONTELUKAST 10 MG TAB PO SCH (21:28)
[2017-05-25] MEDS: ALPRAZolam 0.5 MG TAB PO PRN (21:29)
[2017-05-25] MEDS: SERTRALINE HCL 50 MG TAB PO SCH (21:29)
[2017-05-25] MEDS: TOUJEO SC SCH (21:31)
[2017-05-26] MEDS: PERCOCET 5MG/325MG TAB PO SCH ×3 (00:05→12:15)
--- NOTE | 2017-05-26 00:47 | IPNPDOC ---
Subjective Date Seen The patient was seen on 05/25/17. Subjective Chief Complaint/HPI The patient is a 46-year-old female admitted with a reason for visit of Recurrent Infection L Foot, Diabetes. Events since last encounter Patient is seen eating [employer] that her friend brought in for lunch, with an extra-large beverage. Her blood pressures are improved, though they remain elevated. She is feeling better overall, and reports doing well with PT. Constitutional: Denies: Chills, Fever ENT: Denies: Head Aches Skin: Denies: Rash Pulmonary: Denies: Dyspnea, Cough Cardiovascular: Denies: Chest Pain Gastrointestinal: Reports: Vomiting, Denies: Nausea, Diarrhea, Constipation Genitourinary: Denies: Dysuria Musculoskeletal: Reports: Leg Pain Neurological: Denies: Weakness Objective Physical Examination General Exam: Positive: Alert, Cooperative, No Acute Distress Eye Exam: Positive: Conjunctiva & lids normal ENT Exam: Positive: Mucous membr. moist/pink Chest Exam: Positive: Clear to auscultation, Normal air movement Heart Exam: Positive: Rate Normal, Normal S1, Normal S2 Abdomen Exam: Positive: Normal bowel sounds, Soft, Negative: Tenderness Extremity Exam: Negative: Edema (LLE BKA wrapped in gauze) Neuro Exam: Positive: Normal Speech Psych Exam: Positive: Mental status NL, Mood NL, Oriented x 3 Assessment /Plan Problems (1) Below knee amputation status Permanent Comment: 05/19/2017 Last Edited By: Neeta Rose DO on May 24, 2017 00:44 Problem Text: Working with PT. Taking PO well. Pain fairly well controlled. Plan home with services vs rehab; will assess continued progress with PT. (2) Osteomyelitis of left foot Status: Chronic Response to Treatment: Stable Discussed With: Nurse, Patient Problem Specific Plan: Monitor Clinically Problem Text: 05/25 -- stopped antibiotics, as IDSA guidelines recommend only 2- 5 days of antibiotics after amputation. 05/23 -- Doing well postop. Working with PT. S/p OR 05/19 for LLE BKA. - Patient would prefer Percocet for pain control rather than Vicodin that she was on prior to admission; morphine TRAFFIC DIRECTOR stopped today, started Percocet 5/325 mg Q6H scheduled and morphine 2mg IV Q1H PRN - Zyvox has been continued post op (3) Anemia Status: Chronic Problem Text: 05/25 -- hemoglobin slowly drifiting down, may require transfusion again. Stool negative for occult blood. 05/23 - after pRBCs x2 yesterday, initial repeat Hgb was 7.0; it was determined that this was likely spurious as repeat peripheral was improved to 8.6. H/H remains stable today - will monitor. Hemoccult negative. 05/21 - Hgb 6.8 today, so patient consent for blood transfusion was obtained and 2 U pRBCs were ordered; will recheck CBC 1 hour after transfusion is completed. Reminded nurse to send stool for occult blood. baseline hgb 9s (4) MELODY (acute kidney injury) Status: Acute Response to Treatment: Improving Problem Text: Cr continues to improve 05/20: Renal ultrasound: No hydronephrosis, stone or mass on either side. 05/20 up to 34/1.6, K 4.6 (27/1.1)-UOP 200 cc in last 9H-check renal US/UA/UCX, maintain oropeza placed 05/19 post-op 05/19/17 D51/2 NS 100/H started baseline cr 1.0-1.1 (5) Diabetic ulcer of left foot Status: Chronic Response to Treatment: Stable Problem Text: See above. (6) Factor 5 Leiden mutation, heterozygous Status: Chronic Problem Text: Warfarin restarted 05/19 post-op. She is still subtherapeutic. Lovenox was held yesterday due to anemia and concern she might have GI bleed; hemoccult of stool was negative. Therefore, will give 5 mg dose of warfarin now. Given improved kidney function, will increase lovenox back to 120 BID (7) Uncontrolled diabetes mellitus Onset Date: 11/12/2014 Status: Chronic Response to Treatment: Stable, Uncontrolled Problem Specific Plan: Monitor Clinically Problem Text: 05/25 -- suspect lower blood glucose readings have been because she no longer has a chronic source of infection. Have decreased insulin multiple times. Readings today were elevated by her lunch. Will continue to monitor and adjust dose as necessary. BS has been low and Toujeo and sliding scale have had to be intermittently held ; this is likely due to poor oral intake. Will decrease Toujeo further to 50 units QHS only (she did not receive a dose this morning) 05/18 Home Toujeo decreased due to poor oral intake since surgery; 50 U qPM, 65U qAM. Home dose Toujeo 125 U qAM, 100U qPM. (8) HTN (hypertension) Status: Chronic Problem Text: Upon further chart review, patient has multiple home medications that were help upon admission. I restarted 2 of them, and will continue to adjust medication as necessary while we are seeing this patient. Plan/VTE VTE Prophylaxis Ordered?: Yes Plan/Urinary Catheter Reason for insertion/continuin: Perioperative VS, I&O, 24H, Fishbone Vital Signs/I&O Vital Signs Date Time Temp Pulse Resp B/P (MAP) Pulse Ox O2 Delivery O2 Flow Rate FiO2 05/26/17 00:05 16 05/25/17 23:03 169/60 (96) 05/25/17 22:00 97.7 73 100 Room Air 05/24/17 09:00 2.0 I&O- Last 24 Hours up to 6 AM 05/26/17 06:00 Intake Total 1800 ml Output Total 800 ml Balance 1000 ml Laboratory Data 24H LABS Laboratory Tests 2 05/25/17 01:20: Bedside Glucose (Misc Panel) 70 05/25/17 05:01: Prothrombin Time 37.7H, Prothromb Time International Ratio 3.60, Blood Urea Nitrogen 15, Creatinine 0.68, Sodium Level 145, Potassium Level 3.5, Chloride Level 107, Carbon Dioxide Level 30, Anion Gap 8, Glomerular Filtration Rate > 60.0, Calcium Level 7.6L, Phosphorus Level 4.0#, Albumin 1.8L 05/25/17 11:41: Bedside Glucose (Misc Panel) 213H 05/25/17 16:32: Bedside Glucose (Misc Panel) 370H 05/25/17 21:00: Bedside Glucose (Misc Panel) 146H CBC/BMP Laboratory Tests 05/25/17 05:01 Anion Gap 8 05/25/17 05:02 Red Blood Count 3.01 L, Mean Corpuscular Volume 80.2, Mean Corpuscular Hemoglobin 26.5 L, Mean Corpuscular Hemoglobin Concent 33.1, Red Cell Distribution Width 15.3 H Microbiology Microbiology 05/25/17 Stool Occult Blood (JAMES) - Final, Complete 05/21/17 Stool Occult Blood (JAMES) - Final, Complete 8/4/17 Urine Culture - Final, Complete LUTHER,NEETA DO May 26, 2017 00:47
[2017-05-26 02:00] VITALS: BP 126/80
[2017-05-26] MEDS: MORPHINE 2 MG/ML 1ML SYRINGE IV PRN (04:32)
[2017-05-26 05:38] LABS: MEAN CORPUSCULAR HEMOGLOBIN 26.2 pg (27.0-33.0); MEAN CORPUSCULAR HGB CONC 32.9 g/dl (32.0-36.5); MEAN CORPUSCULAR VOLUME 79.6 fl (80.0-96.0); WHITE BLOOD COUNT 4.7 K/mm3 (4.0-10.0)
[2017-05-26 05:45] LABS: INR 4.19
[2017-05-26 06:00] VITALS: BP 142/78
[2017-05-26] MEDS: SODIUM CHLORIDE 0.9% INJ 10 ML SYR IV SCH ×3 (06:04→22:06)
[2017-05-26] MEDS: ACETAMINOPHEN TAB 650MG DOSE (2X325MG) PO SCH ×4 (06:04→17:43)
[2017-05-26] MEDS: HumaLOG INSULIN (NovoLOG) PER UNIT SC SCH ×4 (07:30→20:47)
[2017-05-26 07:48] LABS: ANION GAP 7 MEQ/L (8-16); BLOOD UREA NITROGEN 15 MG/DL (7-18); CALCIUM LEVEL 7.4 MG/DL (8.5-10.1); CARBON DIOXIDE LEVEL 32 MEQ/L (21-32); CHLORIDE LEVEL 107 MEQ/L (98-107); CREATININE FOR GFR 0.66 MG/DL (0.55-1.02); GLOMERULAR FILTRATION RATE > 60.0 (>58); GLUCOSE, FASTING 70 MG/DL (70-105); POTASSIUM SERUM 3.5 MEQ/L (3.5-5.1); SODIUM LEVEL 146 MEQ/L (136-145)
[2017-05-26] MEDS: ENOXAPARIN 120 MG/0.8 ML SYR (J1650) SC SCH ×2 (08:53→20:25)
[2017-05-26] MEDS: VERAPAMIL 40 MG TAB PO SCH ×2 (08:54→20:30)
[2017-05-26] MEDS: DIVALPROEX 250 MG TAB PO SCH ×2 (08:54→20:26)
[2017-05-26] MEDS: SENOKOT S TAB PO SCH ×2 (08:54→20:27)
[2017-05-26] MEDS: OMEPRAZOLE 20 MG CAP PO SCH ×2 (08:54→20:25)
[2017-05-26] MEDS: SPIRONOLACTONE 25 MG TAB PO SCH (08:55)
[2017-05-26] MEDS: TORSEMIDE 10 MG TABLET PO SCH (08:55)
[2017-05-26] MEDS: PREGABALIN 100 MG CAP (LYRICA) PO SCH ×2 (08:55→20:25)
[2017-05-26] MEDS: DULoxetine 30 MG CAP (CYMBALTA) PO SCH ×2 (08:55→20:26)
[2017-05-26] MEDS: DOCUSATE SODIUM 100 MG CAP PO SCH ×2 (08:55→20:26)
[2017-05-26] MEDS: METOCLOPRAMIDE 5 MG TAB PO SCH ×3 (08:56→17:43)
[2017-05-26] MEDS: LISINOPRIL 10 MG TAB PO SCH (08:56)
[2017-05-26] MEDS: SYMBICORT 160/4.5MCG INHALER 6GM INH SCH ×2 (09:00→21:00)
[2017-05-26 10:00] VITALS: BP 180/82
[2017-05-26] MEDS ORDERED: diphenhydrAMINE 25 MG CAP PO ONE (10:15)
[2017-05-26 14:00] VITALS: BP 183/81
[2017-05-26] MEDS ORDERED: PERCOCET 5MG/325MG TAB PO PRN (15:15)
[2017-05-26] MEDS: PERCOCET 5MG/325MG TAB PO PRN ×2 (16:14→20:25)
[2017-05-26 18:00] VITALS: BP 183/70
[2017-05-26] MEDS ORDERED: BENAZEPRIL 20 MG TAB PO ONE (18:45)
[2017-05-26] MEDS: rOPINIRole 1MG TAB PO SCH (20:26)
[2017-05-26] MEDS: QUEtiapine FUMARATE 200 MG TAB PO SCH (20:26)
[2017-05-26] MEDS: SERTRALINE HCL 50 MG TAB PO SCH (20:27)
[2017-05-26] MEDS: MONTELUKAST 10 MG TAB PO SCH (20:27)
[2017-05-26] MEDS: traZODone 100 MG TAB PO SCH (20:27)
[2017-05-26] MEDS: TOUJEO SC SCH (20:46)
[2017-05-26] MEDS: ALPRAZolam 0.5 MG TAB PO PRN (20:47)
[2017-05-26 22:00] VITALS: BP 160/80
[2017-05-27] MEDS: PERCOCET 5MG/325MG TAB PO PRN ×3 (00:41→10:01)
--- NOTE | 2017-05-27 01:56 | IPNPDOC ---
Subjective Date Seen The patient was seen on 05/26/17. Subjective Chief Complaint/HPI The patient is a 46-year-old female admitted with a reason for visit of Recurrent Infection L Foot, Diabetes. Events since last encounter Pain in stump is poorly controlled. She is trying to avoid morphine, but her leg hurts. She has some phantom limb pain, but mostly incisional pain right now. She still has some hypoglycemia, especially in the a.m., improved. Constitutional: Denies: Chills, Fever Skin: Denies: Rash Pulmonary: Denies: Dyspnea, Cough Cardiovascular: Denies: Chest Pain Gastrointestinal: Denies: Nausea, Vomiting, Diarrhea, Constipation Musculoskeletal: Reports: Leg Pain, Joint Pain Objective Physical Examination General Exam: Positive: Alert, Cooperative, No Acute Distress Eye Exam: Positive: Conjunctiva & lids normal ENT Exam: Positive: Mucous membr. moist/pink Chest Exam: Positive: Clear to auscultation, Normal air movement Heart Exam: Positive: Rate Normal, Normal S1, Normal S2 Abdomen Exam: Positive: Normal bowel sounds, Soft, Negative: Tenderness Extremity Exam: Positive: Other (stump LLE with small area with serosanguineous discharge otherwise clean sutures, only mild erythema surrounding) Neuro Exam: Positive: Normal Speech Psych Exam: Positive: Mental status NL, Mood NL, Oriented x 3 Assessment /Plan Problems (1) Below knee amputation status Permanent Comment: 05/19/2017 Last Edited By: Neeta Sloan DO on May 24, 2017 00:44 Problem Text: Doing well with PT. Increased Percocet for pain control. Stump apears to be healing well. (2) Osteomyelitis of left foot Status: Resolved Response to Treatment: Stable Discussed With: Nurse, Patient Problem Specific Plan: Monitor Clinically Problem Text: 05/25 -- stopped antibiotics, as IDSA guidelines recommend only 2- 5 days of antibiotics after amputation. 05/23 -- Doing well postop. Working with PT. S/p OR 05/19 for LLE BKA. 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 Stool negative for occult blood. 05/23 - after pRBCs x2 yesterday, initial repeat Hgb was 7.0; it was determined that this was likely spurious as repeat peripheral was improved to 8.6. H/H remains stable today - will monitor. Hemoccult negative. 05/21 - Hgb 6.8 today, so patient consent for blood transfusion was obtained and 2 U pRBCs were ordered; will recheck CBC 1 hour after transfusion is completed. Reminded nurse to send stool for occult blood. baseline hgb 9s (4) Diabetic ulcer of left foot Status: Chronic Response to Treatment: Stable Problem Text: See above. (5) Factor 5 Leiden mutation, heterozygous Status: Chronic Problem Text: Warfarin restarted 05/19 post-op. She is still subtherapeutic. Lovenox was held yesterday due to anemia and concern she might have GI bleed; hemoccult of stool was negative. Therefore, will give 5 mg dose of warfarin now. Given improved kidney function, will increase lovenox back to 120 BID (6) Uncontrolled diabetes mellitus Onset Date: 11/12/2014 Status: Chronic Response to Treatment: Stable, Uncontrolled Problem Specific Plan: Monitor Clinically Problem Text: 05/26 -- decreased Toujeo again. Will require lower doses Rxed upon discharge. 05/25 -- suspect lower blood glucose readings have been because she no longer has a chronic source of infection. Have decreased insulin multiple times. Readings today were elevated by her lunch. Will continue to monitor and adjust dose as necessary. BS has been low and Toujeo and sliding scale have had to be intermittently held ; this is likely due to poor oral intake. Will decrease Toujeo further to 50 units QHS only (she did not receive a dose this morning) 05/18 Home Toujeo decreased due to poor oral intake since surgery; 50 U qPM, 65U qAM. Home dose Toujeo 125 U qAM, 100U qPM. (7) HTN (hypertension) Status: Chronic Problem Text: Upon further chart review, patient has multiple home medications that were help upon admission. I restarted 2 of them, and will continue to adjust medication as necessary while we are seeing this patient. (8) MELODY (acute kidney injury) Status: Resolved Response to Treatment: Improving Problem Text: Cr continues to improve 05/20: Renal ultrasound: No hydronephrosis, stone or mass on either side. 05/20 up to 34/1.6, K 4.6 (27/1.1)-UOP 200 cc in last 9H-check renal US/UA/UCX, maintain oropeza placed 05/19 post-op 05/19/17 D51/2 NS 100/H started baseline cr 1.0-1.1 Plan/VTE VTE Prophylaxis Ordered?: Yes Plan/Urinary Catheter Reason for insertion/continuin: Perioperative VS, I&O, 24H, Fishbone Vital Signs/I&O Vital Signs Date Time Temp Pulse Resp B/P (MAP) Pulse Ox O2 Delivery O2 Flow Rate FiO2 05/27/17 00:41 18 95 Room Air 05/26/17 22:00 97.5 75 160/80 (106) 05/24/17 09:00 2.0 I&O- Last 24 Hours up to 6 AM 05/27/17 06:00 Intake Total 2400 ml Output Total 0 ml Balance 2400 ml Laboratory Data 24H LABS Laboratory Tests 2 05/26/17 05:20: Prothrombin Time 42.6H, Prothromb Time International Ratio 4.19, Blood Urea Nitrogen 15, Creatinine 0.66, Sodium Level 146H, Potassium Level 3.5, Chloride Level 107, Carbon Dioxide Level 32, Anion Gap 7L, Glomerular Filtration Rate > 60.0, Calcium Level 7.4L, Phosphorus Level 4.0, Albumin 2.0L 05/26/17 20:36: Bedside Glucose (Misc Panel) 254H CBC/BMP Laboratory Tests 05/26/17 05:20 Red Blood Count 3.25 L, Mean Corpuscular Volume 79.6 L, Mean Corpuscular Hemoglobin 26.2 L, Mean Corpuscular Hemoglobin Concent 32.9, Red Cell Distribution Width 15.0 H, Anion Gap 7 L Microbiology Microbiology 05/25/17 Stool Occult Blood (JAMES) - Final, Complete 05/21/17 Stool Occult Blood (JAMES) - Final, Complete 05/20/17 Urine Culture - Final, Complete NEETA SLOAN DO May 27, 2017 01:56
[2017-05-27] MEDS: SODIUM CHLORIDE 0.9% INJ 10 ML SYR IV SCH (05:38)
[2017-05-27] MEDS: ACETAMINOPHEN TAB 650MG DOSE (2X325MG) PO SCH ×3 (05:39→12:46)
[2017-05-27 06:00] VITALS: BP 164/84
[2017-05-27 06:44] LABS: ANION GAP 7 MEQ/L (8-16); BLOOD UREA NITROGEN 18 MG/DL (7-18); CALCIUM LEVEL 8.1 MG/DL (8.5-10.1); CARBON DIOXIDE LEVEL 33 MEQ/L (21-32); CHLORIDE LEVEL 105 MEQ/L (98-107); GLOMERULAR FILTRATION RATE > 60.0 (>58); GLUCOSE, FASTING 142 MG/DL (70-105); POTASSIUM SERUM 3.6 MEQ/L (3.5-5.1); SODIUM LEVEL 145 MEQ/L (136-145)
[2017-05-27 06:45] LABS: INR 2.82
[2017-05-27] MEDS: SYMBICORT 160/4.5MCG INHALER 6GM INH SCH (07:27)
[2017-05-27 08:26] VITALS: BP 164/64
[2017-05-27] MEDS: ENOXAPARIN 120 MG/0.8 ML SYR (J1650) SC SCH ×2 (08:26→09:00)
[2017-05-27] MEDS: VERAPAMIL 40 MG TAB PO SCH (08:26)
[2017-05-27] MEDS: OMEPRAZOLE 20 MG CAP PO SCH (08:27)
[2017-05-27] MEDS: PREGABALIN 100 MG CAP (LYRICA) PO SCH (08:27)
[2017-05-27] MEDS: DULoxetine 30 MG CAP (CYMBALTA) PO SCH (08:27)
[2017-05-27] MEDS: TORSEMIDE 10 MG TABLET PO SCH (08:27)
[2017-05-27] MEDS: HumaLOG INSULIN (NovoLOG) PER UNIT SC SCH ×2 (08:28→12:46)
[2017-05-27] MEDS: DOCUSATE SODIUM 100 MG CAP PO SCH (08:28)
[2017-05-27] MEDS: SENOKOT S TAB PO SCH (08:28)
[2017-05-27] MEDS: DIVALPROEX 250 MG TAB PO SCH (08:28)
[2017-05-27] MEDS: METOCLOPRAMIDE 5 MG TAB PO SCH ×2 (08:30→12:46)
[2017-05-27] MEDS: SPIRONOLACTONE 25 MG TAB PO SCH (08:30)
[2017-05-27] MEDS ORDERED: PERCOCET PO (08:53)
[2017-05-27] MEDS ORDERED: TORS10TA3 PO (08:53)
[2017-05-27] MEDS ORDERED: VERA40TA PO (08:53)
[2017-05-27] MEDS ORDERED: SPIR25TA2 PO (08:53)
[2017-05-27] MEDS ORDERED: BENA20TA PO (08:53)
[2017-05-27] MEDS ORDERED: COUM1TAB17 PO (08:53)
[2017-05-27] MEDS ORDERED: INSUHUMDS SC (08:53)
[2017-05-27] MEDS ORDERED: BENAZEPRIL 20 MG TAB PO SCH (09:00)
[2017-05-27 09:57] LABS: MEAN CORPUSCULAR HEMOGLOBIN 26.4 pg (27.0-33.0); MEAN CORPUSCULAR HGB CONC 32.9 g/dl (32.0-36.5); MEAN CORPUSCULAR VOLUME 80.1 fl (80.0-96.0); WHITE BLOOD COUNT 5.1 K/mm3 (4.0-10.0)
[2017-05-27 10:13] LABS: ALBUMIN/GLOBULIN RATIO 0.42 (1.00-1.93); ALKALINE PHOSPHATASE 110 U/L (45-117); ALT/SGPT 15 U/L (12-78); AST/SGOT 14 U/L (15-37); BILIRUBIN,TOTAL 0.2 MG/DL (0.2-1.0); TOTAL PROTEIN 6.8 GM/DL (6.4-8.2)
--- NOTE | 2017-05-28 05:34 | DSES ---
DATE OF ADMISSION: 05/16/2017 DATE OF DISCHARGE: 05/27/2017 PRIMARY CARE PROVIDER: Dr. Zion Pastrana and Laxmi Hernandez. ATTENDING PHYSICIAN: Dr. Kayleen Rose. CONSULTATIONS: Dr. Jayden Bender for surgical consult for the below-knee amputation (BKA). HISTORY OF PRESENT ILLNESS: 46-year-old female with longstanding history of osteomyelitis of the left lower extremity including Charcot foot, had been managed collectively between Dr. Guerra, primary care and infectious disease, Dr. Scott. Proceeded with a left BKA. HOSPITAL COURSE: Patient was admitted and started bridge therapy with Lovenox. She also had a tunneled Puente catheter placed for intravenous (IV) access as patient had significant difficulty with vascular access. Patient remained on her Zyvox preoperatively and was discontinued on 05/25 postoperatively. Patient had some significant episodes of hypoglycemia. She needed to have her insulin dosing dropped significantly. Her Toujeo was dropped to 20 units and patient was dropped down from a higher sliding scale to protocol based sliding scale. It was felt that patient's significant osteomyelitis increased her blood sugars and her glycemic control was significantly improved after the BKA. Patient did have some episodes of significant hypertension. Medications were adjusted accordingly and she has remained stable within the last 24-48 hours. Patient has done well with physical therapy. Plans on physical therapy on an outpatient basis and has been deemed safe for discharge home. Patient also agrees with home health services for care of her amputation site, as well as physical therapy. Patient had some significant difficulty with pain control. She has been weaned down to oxycodone 5 mg one or two tablets every 4-6 hours as needed with excellent control. She has not needed morphine in over 24 hours. On physical examination today, blood pressure 164/64. Heart rate is stable in the 60-70 range. Oxygen saturation 99% on room air, temperature 97.5. REVIEW OF SYSTEMS: Patient states she feels significantly better. Denies headaches, blurred vision, dizziness, shortness of breath. Denies any excessive sweating. Denies any polydipsia or polyuria. Does complain of some pain to the area of the BKA. Otherwise, this has been well controlled with the oxycodone as needed. GENERAL: Patient is sitting and resting comfortably. HEENT: Neck is supple without lymphadenopathy or jugular venous distention (JVD). CARDIOVASCULAR: Heart rate, rhythm are regular. PULMONARY: Lungs are clear to auscultation bilaterally. ABDOMEN: Soft and nontender with positive bowel sounds times all four quadrants. EXTREMITIES: Bilateral lower extremities do have a trace edema. The stump site is clean, dry and intact. NEUROLOGICAL: Patient has no resting tremor. She is alert and oriented times three. Conversation is appropriate, congruent. ASSESSMENT/DISCHARGE DIAGNOSES: 1. Status post left below-knee amputation (BKA) completed by Dr. Bender. 2. Osteomyelitis of the left foot with Charcot foot, resolved with BKA. 3. Uncontrolled diabetes. 4. History of recurrent deep venous thrombosis (DVT). SECONDARY DIAGNOSES: 1. Asthma. 2. Chronic low back pain. 3. Anxiety. 4. Bipolar disorder. 5. Fibromyalgia. 6. Gastroesophageal reflux disease. PLAN: Patient will be discharged home with home health services. Diet is a carbohydrate consistent diet. Activity is per physical therapy recommendations. MEDICATIONS: - benazepril 20 mg tablet, she is to take two by mouth daily - Humalog insulin subcutaneously before meals - oxycodone with acetaminophen two tablets every 4 hours as needed for mild to moderate pain with a maximum daily dose of six tablets per day - spironolactone 25 mg one by mouth daily - torsemide 10 mg by mouth daily - verapamil 40 mg tablet, she is to take a half tablet by mouth twice a day - warfarin sodium 5 mg on Tuesday, , Tuesday - warfarin sodium 1 mg rest of the week - albuterol sulfate two puffs every 4 hours as needed for wheezing - alprazolam 1 mg by mouth four times a day as needed for anxiety - Symbicort two puffs inhalation twice a day - cyclobenzaprine 10 mg by mouth three times a day as needed for muscle spasms - dicyclomine 10 mg by mouth three times a day as needed for abdominal cramps - Depakote 250 mg by mouth twice a day - Colace 100 mg by mouth nightly - Cymbalta 60 mg capsule by mouth every morning - Cymbalta 30 mg by mouth nightly - EpiPen as needed for allergic reaction - eszopiclone 3 mg by mouth nightly - ferrous sulfate 325 mg by mouth daily - Flonase one spray in each nostril daily as needed for congestion - Reglan 5 mg by mouth three times a day - Singulair 10 mg by mouth nightly - nystatin powder topically three times a day as needed for rash - omeprazole 40 mg by mouth twice a day - Lyrica 300 mg by mouth twice a day - Seroquel 300 mg tablets two by mouth nightly - ranitidine 150 mg by mouth nightly - ropinirole 4 mg by mouth nightly - sertraline 50 mg by mouth nightly - trazodone 100 mg by mouth nightly - probiotic daily over the counter by mouth nightly Patient is discharged in stable satisfactory condition with no further questions at time of discharge. She will followup with me in the office on Tuesday, 05/30, for PT/INR and hospital followup. She will followup with Dr. Bender per his recommendations. Necessary equipment and dressing changes have been provided with prescriptions. All medications were sent to patient's preferred pharmacy.
--- NOTE | 2017-06-21 09:42 | RO ---
DATE OF PROCEDURE: 05/27/2017 PREOPERATIVE DIAGNOSIS: Poor venous access, status post right internal jugular vein Puente catheter placement. POSTOPERATIVE DIAGNOSIS: Poor venous access, status post right internal jugular vein Puente catheter placement. PROCEDURE: Removal of right internal jugular vein Puente catheter. SURGEON: Dr. Stephon Caballero HIP HOP DANCE INSTRUCTOR: None. ANESTHESIA: None. ESTIMATED BLOOD LOSS: Minimal. IV FLUIDS: None. COMPLICATIONS: None. DRAINS: None. SPECIMENS: None. IMPLANTS: None. INDICATION: The patient is a 46-year-old female with poor venous access who required access for admission to the hospital for blood draws and medicine installation who is now being discharged and no longer requires the Puente catheter. The patient will undergo removal of the Puente catheter. The risks, benefits and alternative treatment options were discussed with the patient and alternative treatment options including, but were not limited to, no intervention. Benefits included, but were not limited to, removal of the catheter. Risks included, but were not limited to, infection, bleeding, pneumothorax, hemothorax, cerebrovascular accident, myocardial infarction, pulmonary embolus, deep vein thrombosis, loss of limb, loss of life, and poor outcome. The patient understands and accepts these risks and consent to proceed with removal of her right internal jugular vein Puente catheter. The patient's questions were all answered. The patient voices understanding of these risks, benefits and alternative treatment options. PROCEDURE: The patient was prepped and draped in a standard surgical fashion. Manual traction was applied to the Puente catheter which released its subcutaneous cuff and the catheter was removed and dressings were applied with good hemostasis noted. The patient was then transferred to the floor and subsequently discharged in stable condition.
== END 2017-05-27 13:00 | disposition home health service (06) | DRG 475 ==
LOC: M MSPAV 11:34
PROVIDERS: ADMIT Family Medicine; ATTEND Family Medicine
PROC: 02HV33Z Insertion of Infusion Device into Superior Vena Cava, Percutaneous Approach (ICD-10-PCS; 2017-05-17)
PROC: 0Y6G0ZZ Detachment at Left Knee Region, Open Approach (ICD-10-PCS; principal; 2017-05-19 07:30)
PROC: 30233N1 Transfusion of Nonautologous Red Blood Cells into Peripheral Vein, Percutaneous Approach (ICD-10-PCS; 2017-05-21)
DX: M86.9 Osteomyelitis, unspecified (principal); A52.16 Charcot's arthropathy (tabetic); D68.51 Activated protein C resistance; N17.9 Acute kidney failure, unspecified; L97.429 Non-pressure chronic ulcer of left heel and midfoot with unspecified severity; E11.621 Type 2 diabetes mellitus with foot ulcer; J45.909 Unspecified asthma, uncomplicated; F41.9 Anxiety disorder, unspecified; E11.649 Type 2 diabetes mellitus with hypoglycemia without coma; I10 Essential (primary) hypertension; D64.9 Anemia, unspecified; K21.9 Gastro-esophageal reflux disease without esophagitis; F31.9 Bipolar disorder, unspecified; M79.7 Fibromyalgia; M47.816 Spondylosis without myelopathy or radiculopathy, lumbar region; B00.9 Herpesviral infection, unspecified; M48.06 Spinal stenosis, lumbar region; Q76.0 Spina bifida occulta; F42.9 Obsessive-compulsive disorder, unspecified; Z86.718 Personal history of other venous thrombosis and embolism; Z79.4 Long term (current) use of insulin; Z79.01 Long term (current) use of anticoagulants; Z90.49 Acquired absence of other specified parts of digestive tract; Z90.710 Acquired absence of both cervix and uterus; Z95.828 Presence of other vascular implants and grafts; Z87.891 Personal history of nicotine dependence

== ENCOUNTER → 2017-06-13 | Outpatient (REF) | payer OTHER ==
[~2017-06-13] MED LIST changes: +SERT50TA PO; +TORS10TA3 PO; +VERA40TA PO
[2017-06-13 16:39] LABS: INR 7.9
== END ==
LOC: M SFHCPLAZ 14:02
PROVIDERS: ATTEND Nurse Practitioner Family
DX: E11.59 Type 2 diabetes mellitus with other circulatory complications (principal); Z79.4 Long term (current) use of insulin

== ENCOUNTER → 2017-06-15 | Outpatient (CLI) | payer OTHER ==
--- NOTE | 2017-06-15 21:04 | REP ---
Clinical: Pain. Technique: Neutral and frog lateral views of the right hip. Findings: Degenerative changes include spurring/early osteophyte formation along the superior margin of the acetabulum as well as associated subchondral sclerosis and minimal joint space narrowing. Cortical irregularity is also identified involving the greater trochanter. No acute fracture or dislocation. No obvious periarticular calcifications. Surrounding soft tissues grossly unremarkable. Impression: Early moderate osteoarthritic degenerative changes Signed by Clint Sullivan MD 06/15/2017 08:56 P
== END ==
LOC: M RAD 16:26
PROVIDERS: ATTEND Family Medicine
DX: M16.11 Unilateral primary osteoarthritis, right hip (principal)

== ENCOUNTER → 2017-06-16 | Outpatient (REF) | payer OTHER ==
[2017-06-16 19:17] LABS: INR 4.13
== END ==
LOC: M SFHCPLAZ 14:02
PROVIDERS: ATTEND Family Medicine
DX: Z79.01 Long term (current) use of anticoagulants (principal)

== ENCOUNTER → 2017-06-18 | Outpatient (CLI) | payer OTHER ==
[2017-06-18 13:04] LABS: INR 1.67
== END ==
LOC: M LAB 12:37
PROVIDERS: ATTEND Family Medicine
DX: Z79.01 Long term (current) use of anticoagulants (principal)

== ENCOUNTER → 2017-07-04 | Outpatient (CLI) | payer OTHER | LOC: M PT 09:17 | PROVIDERS: ATTEND Surgery | DX: M14.672 Charcot's joint, left ankle and foot (principal); Z89.512 Acquired absence of left leg below knee; M86.472 Chronic osteomyelitis with draining sinus, left ankle and foot ==

== ENCOUNTER 2017-09-13 15:22 | Outpatient (RCR) | payer OTHER | END 2017-09-15 | LOC: M PT 15:22 | PROVIDERS: ATTEND Surgery | DX: Z51.89 Encounter for other specified aftercare (principal); Z89.519 Acquired absence of unspecified leg below knee ==

== ENCOUNTER → 2017-09-30 | Outpatient (REF) | payer OTHER ==
[~2017-09-30] MED LIST changes: +BYDU1INJ SC; +CARV6.25 PO; +LASI40TA PO; +NORC10TA21 PO; +SENN1TAB10 PO; +SERT-138 PO
[2017-09-30 16:09] LABS: INR 5.34
== END ==
LOC: M SFHCPLAZ 15:01
PROVIDERS: ATTEND Family Medicine
DX: Z51.81 Encounter for therapeutic drug level monitoring (principal)

== ENCOUNTER → 2017-10-03 | Outpatient (REF) | payer OTHER ==
[2017-10-03 14:52] LABS: INR 7.89
== END ==
LOC: M SFHCPLAZ 13:36
PROVIDERS: ATTEND Family Medicine
DX: Z51.81 Encounter for therapeutic drug level monitoring (principal)

== ENCOUNTER 2017-10-05 16:03 | Observation (INO) | payer OTHER ==
[~2017-10-05] VITALS: Ht 177.8 cm; Wt 117.9 kg
[~2017-10-05 16:03] MED LIST changes: -BYDU1INJ SC; -CARV6.25 PO; -LASI40TA PO; -NORC10TA21 PO; -SENN1TAB10 PO; -SERT-138 PO
[2017-10-05] MEDS ORDERED: NORC10TA21 PO (16:29)
[2017-10-05] MEDS ORDERED: TOUJ1.2I SC (16:31)
[2017-10-05] MEDS ORDERED: NS 1,000 ML IV ONE (17:15)
[2017-10-05 17:43] LABS: BASO % 0.5 % (0.0-1.0); EOS # 0.2 10^3/uL (0.0-0.50); EOS % 2.3 % (0.0-3.0); IMMATURE GRANULOCYTE % 0.8 % (0-0); LYMPH # 1.7 10^3/uL (1.5-4.5); LYMPH % 25.5 % (24.0-44.0); MEAN CORPUSCULAR HGB CONC 35.1 g/dl (32.0-36.5); MEAN CORPUSCULAR VOLUME 82.7 fl (80.0-96.0); MONO # 0.5 10^3/uL (0.0-0.8); MONO % 7.7 % (0.0-5.0); NEUTROPHILS # 4.1 10^3/uL (1.8-7.7); NEUTROPHILS % 63.2 % (36.0-66.0); PLATELET COUNT, AUTOMATED 185 10^3/uL (150-450); RED CELL DISTRIBUTION WIDTH 13.2 % (11.5-14.5); WHITE BLOOD COUNT 6.5 10^3/uL (4.0-10.0)
[2017-10-05 17:47] LABS: SPECIFIC GRAVITY UR AUTO RFX 1.022 (1.002-1.035); SQUAM EPITHELIAL CELL UR AURFX 2 /HPF (0-6)
[2017-10-05 17:56] LABS: INR 5.17
[2017-10-05 18:08] LABS: ALBUMIN/GLOBULIN RATIO 0.67 (1.00-1.93); ALKALINE PHOSPHATASE 126 U/L (45-117); ALT/SGPT 23 U/L (12-78); ANION GAP 8 MEQ/L (8-16); AST/SGOT 15 U/L (7-37); BILIRUBIN,DIRECT < 0.1 MG/DL (0.0-0.2); BILIRUBIN,TOTAL 0.4 MG/DL (0.2-1.0); BLOOD UREA NITROGEN 19 MG/DL (7-18); CALCIUM LEVEL 8.6 MG/DL (8.5-10.1); CARBON DIOXIDE LEVEL 28 MEQ/L (21-32); CHLORIDE LEVEL 93 MEQ/L (98-107); CREATININE FOR GFR 1.26 MG/DL (0.55-1.02); GLOMERULAR FILTRATION RATE 48.2 (>58); POTASSIUM SERUM 4.3 MEQ/L (3.5-5.1); SODIUM LEVEL 129 MEQ/L (136-145); TOTAL PROTEIN 7.5 GM/DL (6.4-8.2)
[2017-10-05 18:11] LABS: GLUCOSE, FASTING 611 MG/DL (70-105)
[2017-10-05] MEDS ORDERED: HumuLIN R (REGULAR) INSULIN (NovoLIN R) **100U/ML** PER UNIT IV ONE (18:45)
[2017-10-05 19:01] LABS: VENOUS BASE EXCESS 1.5 (-2.0-2.0); VENOUS O2 SATURATION 86.4 % (60.0-80.0); VENOUS PARTIAL PRESSURE CO2 49.3 mmHg (38.0-50.0); VENOUS PARTIAL PRESSURE O2 53.1 mmHg (30.0-50.0); VENOUS STANDARD HCO3 25.5 MEQ/L; VENOUS TOTAL CO2 28.9 MEQ/L (24.0-28.0)
[2017-10-05] MEDS ORDERED: BYDU1INJ SC (19:24)
[2017-10-05] MEDS ORDERED: INSUHUMDS SC (19:24)
[2017-10-05] MEDS ORDERED: LASI40TA PO (19:24)
[2017-10-05] MEDS ORDERED: CARV6.25 PO (19:24)
[2017-10-05] MEDS ORDERED: SPIR25TA2 PO (19:24)
[2017-10-05] MEDS ORDERED: SERT-138 PO (19:24)
[2017-10-05] MEDS ORDERED: BENA40TA7 PO (19:24)
[2017-10-05] MEDS ORDERED: SENN1TAB10 PO (19:26)
[2017-10-05] MEDS ORDERED: TORS10TA3 PO (19:26)
--- NOTE | 2017-10-05 19:46 | ECGEPIP ---
Stationary ECG Study [facility] - ED Test Date: 2017-10-05 Pat Name: JOSS FORD Department: Room: - Gender: F Wink Cutter Operator: DENIS : 1970 Requested By: Amanda Michele Order Number: [id number] Reading MD: Jamie Che Measurements Intervals [place] Rate: 90 P: 34 ID: [id number] QRS: 1 QRSD: 89 T: 80 QT: 361 QTc: 444 Interpretive Statements SINUS RHYTHM POSSIBLE LEFT ATRIAL ENLARGEMENT NONSPECIFIC T-WAVE ABNORMALITY SIMILAR TO 11/02/16 Electronically Signed On 10-05-2017 19:46:06 EST by Jamie Che
[2017-10-05] MEDS ORDERED: ALBUTEROL 90 MCG/ACT 8GM HFA INHALER INH PRN (20:15)
[2017-10-05] MEDS ORDERED: GLUCOSE 4 GM CHEW TABLET PO PRN (20:15)
[2017-10-05] MEDS ORDERED: DEXTROSE 50% 50 ML SYRINGE IV PRN (20:15)
[2017-10-05] MEDS ORDERED: NYSTATIN 100,000 UNITS/GM TOPICAL PWD 15 GM TOP PRN (20:15)
[2017-10-05] MEDS ORDERED: CYCLOBENZAPRINE 10 MG TAB PO PRN (20:15)
[2017-10-05] MEDS ORDERED: ALPRAZolam 0.5 MG TAB PO PRN (20:15)
[2017-10-05] MEDS ORDERED: ACETAMINOPHEN TAB 650MG DOSE (2X325MG) PO PRN (20:15)
[2017-10-05] MEDS ORDERED: GLUCAGON FOR INJ 1 MG VIAL (J1610) SC PRN (20:15)
[2017-10-05] MEDS ORDERED: ONDANSETRON 4MG/2ML VIAL (J2405) IV PRN (20:15)
[2017-10-05] MEDS: NORCO, ANEXSIA 5/325MG TABLET (HYDROcodone/ACETAMINOPHEN) PO PRN (20:40)
[2017-10-05] MEDS ORDERED: HumaLOG INSULIN (NovoLOG) PER UNIT SC SCH (21:00)
[2017-10-05] MEDS ORDERED: traZODone 100 MG TAB PO SCH (21:00)
[2017-10-05] MEDS ORDERED: SENNA 8.6 MG TAB (SENOKOT) PO SCH (21:00)
[2017-10-05] MEDS ORDERED: MONTELUKAST 10 MG TAB PO SCH (21:00)
[2017-10-05] MEDS ORDERED: DOCUSATE SODIUM 100 MG CAP PO SCH (21:00)
[2017-10-05] MEDS ORDERED: QUEtiapine FUMARATE 200 MG TAB PO SCH (21:00)
[2017-10-05] MEDS ORDERED: rOPINIRole 1MG TAB PO SCH (21:00)
[2017-10-05] MEDS ORDERED: SERTRALINE 100 MG TAB PO SCH (21:00)
[2017-10-05] MEDS ORDERED: FAMOTIDINE 20 MG TAB PO SCH (21:00)
[2017-10-05] MEDS: NS 1,000 ML IV SCH (23:52)
[2017-10-05] MEDS: CARVedilol 6.25 MG TAB PO SCH (23:54)
[2017-10-05] MEDS: DULoxetine 30 MG CAP (CYMBALTA) PO SCH (23:55)
[2017-10-05] MEDS: PREGABALIN 100 MG CAP (LYRICA) PO SCH (23:56)
[2017-10-05] MEDS: OMEPRAZOLE 20 MG CAP PO SCH (23:56)
[2017-10-06] MEDS ORDERED: HumaLOG INSULIN (NovoLOG) PER UNIT SC ONE ×2 (01:00→02:45)
[2017-10-06] MEDS: SYMBICORT 160/4.5MCG INHALER 6GM INH SCH ×2 (02:36→08:11)
[2017-10-06] MEDS: NORCO, ANEXSIA 5/325MG TABLET (HYDROcodone/ACETAMINOPHEN) PO PRN ×2 (03:22→08:34)
--- NOTE | 2017-10-06 05:45 | HPE ---
DATE OF ADMISSION: 10/05/2017 This is a patient of Dr. Quijano, Dr. Reis, and the [facility]. CHIEF COMPLAINT: High blood sugar. SUMMARY OF PRESENTATION: This is a 47-year-old insulin-dependent diabetic who was sent in by her primary care provider for abnormal laboratory values. She was noted to have evidence of elevated creatinine, elevated international normalized ratio (INR), and high blood sugars. She has not been feeling well for three days. She has been very tired to the point where she cannot stay awake and has fallen asleep during conversations. She has had some cough. No chest pain, not particularly short of breath, fever of 103.1 with some hoarseness in her voice. She has had a nosebleed associated with high INR. She does not usually have nosebleed. She has not been on antibiotics recently. No nausea, no vomiting except for the weekly use of [place]. No change in bowel or bladder habits. Otherwise unremarkable. PAST MEDICAL HISTORY: Notable for Charcot joints in foot, bilateral diabetic foot ulcers, lumbar spondylosis, chronic low back pain. Diabetes mellitus. Positive rheumatoid factor. Hepatosteatosis. Hypogammaglobulinemia. Hypertension. Asthma. Bipolar obsessive compulsive disorder, agoraphobic anxiety, fibromyalgia, spina bifida occulta. Temporomandibular joint (TMJ) dysfunction bilaterally, psoriasis, abdominal adhesions, temporal lobe seizures, gastroesophageal reflux disease (GERD), previous history of herpes simplex virus on back, fatty liver, Factor V Leiden deficiency on Coumadin, type 2 diabetes with complications. PAST SURGICAL HISTORY: Notable for gallbladder removal, cervical discectomy, hysterectomy, lumpectomy right breast, skin lesions removed, multiple diagnostic laparoscopies, venous Port-A-Cath left chest times two, peripherally inserted central catheter (PICC) line both arms times three, appendectomy, ulnar release on right, stool transplant, esophagogastroduodenoscopy (EGD), below-knee amputation (BKA) left leg most recently in May 2017. FAMILY HISTORY: Father is age 82 with heart issues, and mother at age 80 with hypertension and strokes. ALLERGIES: 1. LASIX. 2. PENICILLIN. 3. SULFA. 4. TRICOR. 5. GLUCOPHAGE. 6. LIPITOR. 7. ZOCOR. 8. KEFLEX. 9. FRESH PINEAPPLE. MEDICATIONS AT HOME: Benazepril, Humalog, spironolactone, torsemide, Epipen, eszopiclone, Bydureon, yeast supplement. - [place] 10/325 - albuterol - Xanax 1 mg by mouth four times a day - Symbicort two puffs inhaled twice a day - Coreg 6.25 mg by mouth twice a day - cyclobenzaprine 10 mg by mouth three times a day as needed - Colace at bedtime - duloxetine 60 mg by mouth twice a day - ferrous sulfate 325 mg by mouth daily - Singulair 10 mg by mouth at bedtime - Nystatin powder three times a day as needed - omeprazole 40 mg by mouth twice a day - Lyrica 300 mg by mouth twice a day - Seroquel 300 mg two tablets by mouth at bedtime - Zantac 150 mg by mouth at bedtime - Requip 4 mg by mouth at bedtime - Senokot one tablet by mouth at bedtime - sertraline 200 mg by mouth at bedtime - Toujeo SoloStar 68 units subcutaneous at bedtime - trazodone 100 mg by mouth at bedtime REVIEW OF SYSTEMS: Notable for no headache, no visual changes, no runny nose, no sore throat. She has had epistaxis. She has had fever. She has been thirsty. No abdominal pain, chest pain. She has had cough which is nonproductive and some change in her voice. She has had an ulcer on her left stump for which she is followed by Dr. Reis. Otherwise unremarkable. SOCIAL HISTORY: She is a former smoker. Does not use any alcohol. She has been cooking [employer] but not eating them. PHYSICAL EXAMINATION: VITAL SIGNS: Temperature 96.9, pulse 84, respiratory rate 16, blood pressure 150/81, 96% on room air. GENERAL: Is awake, appropriately interactive, pleasantly conversant. LUNGS: Breathing is symmetrical, rested. HEART: Distant sounding normal S1, S2. ABDOMEN: Soft, doughy, nontender. NECK: Supple. There is no costovertebral angle tenderness. EXTREMITIES: There is a less than 0.5 cm anterior ulcer on her left stump. There is trace to 1+ right lower extremity edema. PSYCHIATRIC: Normal mood and affect. LABORATORY DATA: White blood cell count 6.5, hemoglobin 10.7, platelets of 185. BUN 19, creatinine 1.26, sodium 129. Osmolality is 309. Lactic acid 2.2. Alkaline phosphatase 126, lipase 192. INR is 5.17. Blood gas is 7.36, 49, 53, 27. UA is notable for 3+ glucose. Point of care glucose is 524. In the ER she did receive 10 units of intravenous (IV) insulin in a liter of fluid. ASSESSMENT: This is a 47-year-old with what is likely a viral upper respiratory infection (URI), Negative influenza swab, resulting in elevated fingersticks, international normalized ratio (INR), and some element of acute renal failure. The patient will be admitted to observation status and treated conservatively. PLAN: 1. Infectious disease: There is no role for antibiotics at this time. We will check a respiratory swab for multiple viral illnesses and monitor clinically. Blood cultures are pending. 2. Diabetes: The patient is on long and short-acting insulin at home. We will start her on sliding scale, control her diet, add long-acting insulin in the form of Levemir as we do not have her version of long-acting insulin. We will check her fingerstick again at midnight tonight and make sure that we are making progress. Will give IV fluid empirically. 3. The patient has an element of acute renal failure which is treated with fluid. 4. The patient's INR is elevated. She has had epistaxis but there is no evidence of ongoing bleeding. There is no role for reversal. She does have a history of Factor V Leiden. 5. The patient has significant psychiatric history. Will continue on her home medications. 6. The patient has chronic pain due to her back. We will continue with [place]. 7. The patient has a history of seizure disorder. 8. Deep venous thrombosis (DVT) prophylaxis is ordered. 9. Primary care issues to be managed by the family medicine team.
[2017-10-06 06:00] VITALS: BP 119/54
[2017-10-06 07:46] LABS: MEAN CORPUSCULAR HEMOGLOBIN 29.2 pg (27.0-33.0); MEAN CORPUSCULAR HGB CONC 35.4 g/dl (32.0-36.5); MEAN CORPUSCULAR VOLUME 82.6 fl (80.0-96.0); PLATELET COUNT, AUTOMATED 210 10^3/uL (150-450); RED CELL DISTRIBUTION WIDTH 13.3 % (11.5-14.5); WHITE BLOOD COUNT 5.7 10^3/uL (4.0-10.0)
[2017-10-06 08:16] LABS: ANION GAP 8 MEQ/L (8-16); BLOOD UREA NITROGEN 17 MG/DL (7-18); CALCIUM LEVEL 8.3 MG/DL (8.5-10.1); CARBON DIOXIDE LEVEL 27 MEQ/L (21-32); CHLORIDE LEVEL 100 MEQ/L (98-107); GLOMERULAR FILTRATION RATE > 60.0 (>58); GLUCOSE, FASTING 260 MG/DL (70-105); MAGNESIUM LEVEL 2.2 MG/DL (1.8-2.4); SODIUM LEVEL 135 MEQ/L (136-145)
[2017-10-06] MEDS: HumaLOG INSULIN (NovoLOG) PER UNIT SC SCH ×2 (08:31→12:08)
[2017-10-06] MEDS: OMEPRAZOLE 20 MG CAP PO SCH (08:31)
[2017-10-06] MEDS: NS 1,000 ML IV SCH (08:31)
[2017-10-06] MEDS: PREGABALIN 100 MG CAP (LYRICA) PO SCH (08:31)
[2017-10-06 08:32] VITALS: BP 122/72
[2017-10-06] MEDS: DULoxetine 30 MG CAP (CYMBALTA) PO SCH (08:32)
[2017-10-06] MEDS: CARVedilol 6.25 MG TAB PO SCH (08:32)
[2017-10-06] MEDS ORDERED: ENOXAPARIN 40 MG/0.4 ML SYRINGE (J1650) SC SCH (09:00)
[2017-10-06] MEDS ORDERED: FERROUS SULFATE 325MG TAB PO SCH (09:00)
[2017-10-06] MEDS ORDERED: LEVEMIR (INSULIN DETEMIR) 1 UNITS/0.01ML SC SCH (09:00)
[2017-10-06 10:07] LABS: INR 4.53
--- NOTE | 2017-10-08 20:08 | DSES ---
DATE OF ADMISSION: 10/05/2017 DATE OF DISCHARGE: 10/06/2017 PRIMARY CARE PHYSICIAN: Dr. Mireille Quijano. ATTENDING PHYSICIAN: Dr. Noé Felix. WOUND CARE MANAGEMENT: Dr. Yung Reis. SUPERVISOR SCREEN PRINTING: Shanice Castillo. HISTORY: A 47-year-old female who was sent to the office by her primary care provider secondary to some significantly abnormal laboratory values including an elevated creatinine, elevated international normalized ratio (INR), and elevated blood sugars. The patient had not been feeling well for three days prior, had been incredibly fatigued with difficulty staying awake, mild cough, no chest pain, no significant shortness of breath, but did have a temperature with a maximum of 103.1, and hoarseness in her voice. The patient was subsequently admitted. HOSPITAL COURSE: The patient was resuscitated with intravenous (IV) fluids. Respiratory panel returned negative for any active respiratory infection. Influenza was negative. Blood culture and strep are both still pending. On physical exam today, the patient states she feels she is back to baseline. Denies headache, chest pain, blurred vision, dizziness or shortness of breath. Is anxious to return home as she has an appointment to receive her lower extremity prosthesis today. If patient has to be reschedule, she will have to be rescheduled until after the first of the year, and at that point, she will resume her deductible which will be an un-affordable event. LABORATORY DATA: Most recent labs show a significantly improved sodium of 135 which is improved from 129, potassium stable at 4.0, BUN at 17, creatinine 1.0. Blood sugar today is 250. The patient did have elevated lactic acid on admission; however, that has normalized back to 0.6. The patient's calcium is 8.3, and magnesium is stable at 2.2. CBC shows a hemoglobin and hematocrit (H and H) of 10 and 29, which is consistent with the patient's prior. PHYSICAL EXAMINATION: VITAL SIGNS: Stable. She is afebrile. HEENT: Neck is supple without lymphadenopathy or jugular venous distention (JVD). CARDIOVASCULAR: Heart rate and rhythm are regular. PULMONARY: Lungs are clear. ABDOMEN: Soft and nontender. EXTREMITIES: Bilateral lower extremities are without any edema. ASSESSMENT/DISCHARGE DIAGNOSES: 1. Elevated international normalized ratio (INR). 2. Presumed viral illness. 3. Acute kidney injury secondary to hypovolemia, as she improved with intravenous (IV) fluid. SECONDARY DIAGNOSES: 1. Factor V Leiden deficiency. 2. Chronic back pain. 3. History of seizure disorder. 4. History of significant depression, anxiety, bipolar disorder. 5. Chronic kidney disease stage III. 6. Charcot foot secondary to diabetes. 7. Gastroesophageal reflux disease (GERD). 8. Restless leg syndrome. 9. Status post below-knee amputation of the left lower extremity. PLAN: The patient will be discharged to home. She will followup with her primary care provider (PCP) tomorrow which will include an INR. The patient's most recent INR value is 4.53, which is significantly improved from 5.17. The patient's warfarin will be held until her PCP gives her further recommendations. Diet is carbohydrate consistent, 2-gram sodium diet. Medications are as follows: - [place] 10/325 one tablet by mouth every four hours as needed for pain - Ventolin HFA two puffs every four hours as needed for wheezing - alprazolam 1 mg by mouth four times a day as needed for anxiety - Symbicort 160/4.5 mcg two puffs twice a day - Carvedilol 6.25 mg by mouth twice a day - cyclobenzaprine 10 mg by mouth three times a day as needed for muscle spasm - docusate sodium 100 mg by mouth at bedtime - Cymbalta 60 mg by mouth twice a day - Epipen as needed for allergic reaction - Eszopiclone 3 mg by mouth at bedtime - Bydureon 2 mg subcutaneous every week - ferrous sulfate 325 mg by mouth daily - lispro sliding scale before food and at bedtime - Singulair 10 mg by mouth at bedtime - Nystatin topically three times a day as needed for rash - omeprazole 40 mg by mouth twice a day - Lyrica 300 mg by mouth twice a day - Seroquel 300 mg tablets two by mouth at bedtime - ranitidine 150 mg by mouth at bedtime - ropinirole 4 mg by mouth at bedtime - senna 8.6 mg tablets one tablet by mouth at bedtime - sertraline 100 mg tablets two by mouth at bedtime - Toujeo SoloStar 68 units subcutaneous at bedtime - trazodone 100 mg by mouth at bedtime - probiotic capsule one by mouth at bedtime Medications that were held during this hospitalization secondary to acute kidney injury include benazepril, spironolactone and torsemide. These can be reevaluated with PCP on followup. The patient is discharged in stable and satisfactory condition with no further questions at time of discharge.
== END 2017-10-06 12:12 | disposition home or self-care (01) ==
LOC: M ED 16:03 → M ED INP 20:07 → M MSPAV 22:18
PROVIDERS: ADMIT Internal Medicine; ATTEND Family Medicine
DX: R79.1 Abnormal coagulation profile (principal); R05 Cough; R50.9 Fever, unspecified; N17.9 Acute kidney failure, unspecified; M54.9 Dorsalgia, unspecified; G89.29 Other chronic pain; G40.909 Epilepsy, unspecified, not intractable, without status epilepticus; F31.9 Bipolar disorder, unspecified; F41.9 Anxiety disorder, unspecified; N18.3 Chronic kidney disease, stage 3 (moderate); E86.1 Hypovolemia; R49.0 Dysphonia; E11.610 Type 2 diabetes mellitus with diabetic neuropathic arthropathy; E11.621 Type 2 diabetes mellitus with foot ulcer; L97.429 Non-pressure chronic ulcer of left heel and midfoot with unspecified severity; K21.9 Gastro-esophageal reflux disease without esophagitis; G25.81 Restless legs syndrome; D80.1 Nonfamilial hypogammaglobulinemia; I12.9 Hypertensive chronic kidney disease with stage 1 through stage 4 chronic kidney disease, or unspecified chronic kidney disease; J45.909 Unspecified asthma, uncomplicated; Q76.0 Spina bifida occulta; Z79.899 Other long term (current) drug therapy; Z79.4 Long term (current) use of insulin; Z79.51 Long term (current) use of inhaled steroids; Z88.0 Allergy status to penicillin; Z88.8 Allergy status to other drugs, medicaments and biological substances; Z88.2 Allergy status to sulfonamides; Z91.018 Allergy to other foods; Z87.891 Personal history of nicotine dependence
CPT/HCPCS: 36415; 80048; 80076; 80164; 81001; 82550; 82553; 82803; 83605; 83690; 83735; 83930; 85025; 85027; 85610; 86850; 86900; 86901; 87040; 87486; 87581; 87633; 87798; 87804; 87880; 93005; 93041; 99285; J1650

== ENCOUNTER → 2017-10-05 | Outpatient (CLI) | payer OTHER ==
--- NOTE | 2017-10-05 21:52 | REP ---
CHEST, TWO VIEWS: Comparison is 05/16/2017 There is no evidence of acute infiltrate. No pleural effusion is seen. The heart is normal in size. The mediastinal silhouette is unremarkable. The visualized osseous structures are intact. IMPRESSION: No acute pulmonary disease. Signed by Jomar Akbar MD 10/06/2017 08:32 P
== END ==
LOC: M RAD 15:09
PROVIDERS: ATTEND Family Medicine
DX: R50.9 Fever, unspecified (principal)

== ENCOUNTER → 2017-10-05 | Outpatient (REF) | payer OTHER ==
[2017-10-05 13:56] LABS: INR 5.15
[2017-10-05 14:17] LABS: CALCIUM LEVEL 8.3 MG/DL (8.5-10.1); CREATININE FOR GFR 1.32 MG/DL (0.55-1.02); GLOMERULAR FILTRATION RATE 45.7 (>58); POTASSIUM SERUM 4.3 MEQ/L (3.5-5.1)
== END ==
LOC: M SFHCPLAZ 13:01
PROVIDERS: ATTEND Family Medicine
DX: R79.1 Abnormal coagulation profile (principal)

== ENCOUNTER → 2017-10-07 | Outpatient (REF) | payer OTHER ==
[~2017-10-07] MED LIST changes: +BYDU1INJ SC; +CARV6.25 PO; +LASI40TA PO; +NORC10TA21 PO; +SENN1TAB10 PO; +SERT-138 PO
[2017-10-07 11:44] LABS: INR 3.37
== END ==
LOC: M SFHCPLAZ 08:56
PROVIDERS: ATTEND Family Medicine
DX: Z51.81 Encounter for therapeutic drug level monitoring (principal); Z79.01 Long term (current) use of anticoagulants

== ENCOUNTER → 2017-10-13 | Outpatient (REF) | payer OTHER ==
[2017-10-13 11:11] LABS: INR 1.09
== END ==
LOC: M SFHCPLAZ 09:02
DX: Z79.01 Long term (current) use of anticoagulants (principal); R79.1 Abnormal coagulation profile
CPT/HCPCS: 85610

== ENCOUNTER → 2017-10-14 | Outpatient (REF) | payer OTHER ==
[2017-10-14 13:15] LABS: INR 1.07
== END ==
LOC: M SFHCPLAZ 10:06
DX: Z51.81 Encounter for therapeutic drug level monitoring (principal); Z79.899 Other long term (current) drug therapy

== ENCOUNTER → 2017-10-18 | Outpatient (REF) | payer OTHER ==
[2017-10-18 15:51] LABS: PROTHROMBIN TIME 13.3 SECONDS (12.4-14.5)
== END ==
LOC: M SFHCPLAZ 13:35
DX: R79.1 Abnormal coagulation profile (principal)

== ENCOUNTER 2017-10-24 19:35 | Emergency (ER) | payer OTHER ==
[2017-10-24] MEDS: HumuLIN R (REGULAR) INSULIN (NovoLIN R) **100U/ML** PER UNIT IV ×2 (22:05→22:45)
[2017-10-24] MEDS: LABETALOL HCL 100 MG/20 ML VIAL IV ×2 (22:07→22:39)
[2017-10-24 22:18] LABS: ANION GAP 7 MEQ/L (8-16); BLOOD UREA NITROGEN 22 MG/DL (7-18); CALCIUM LEVEL 8.7 MG/DL (8.5-10.1); CARBON DIOXIDE LEVEL 29 MEQ/L (21-32); CHLORIDE LEVEL 91 MEQ/L (98-107); LIPASE 204 U/L (73-393); SODIUM LEVEL 127 MEQ/L (136-145)
[2017-10-24 22:22] LABS: GLUCOSE, FASTING 608 MG/DL (70-105)
[2017-10-24 22:23] LABS: POTASSIUM SERUM 6.2 MEQ/L (3.5-5.1)
[2017-10-24] MEDS: NS 1,000 ML IV (22:45)
[2017-10-24 23:02] LABS: BEDSIDE GLUCOSE 506 MG/DL (70-105)
[2017-10-25] MEDS: SOD POLYSTYRENE SULFONATE SUSP 15 GM/60 ML UD PO
[2017-10-25 00:03] LABS: BEDSIDE GLUCOSE 442 MG/DL (70-105)
[2017-10-25] MEDS: HumuLIN R (REGULAR) INSULIN (NovoLIN R) **100U/ML** PER UNIT IV (00:19)
[2017-10-25 01:20] LABS: BEDSIDE GLUCOSE 311 MG/DL (70-105)
[2017-10-25 11:41] LABS: BEDSIDE GLUCOSE > 600 MG/DL (70-105)
== END 2017-10-25 01:51 | disposition home or self-care (01) ==
LOC: M ED 10-25 01:51
DX: E87.6 Hypokalemia (principal); E11.65 Type 2 diabetes mellitus with hyperglycemia; I12.9 Hypertensive chronic kidney disease with stage 1 through stage 4 chronic kidney disease, or unspecified chronic kidney disease; R79.1 Abnormal coagulation profile; I51.9 Heart disease, unspecified; N18.3 Chronic kidney disease, stage 3 (moderate); Z89.512 Acquired absence of left leg below knee
CPT/HCPCS: 93005

== ENCOUNTER → 2017-10-24 | Outpatient (REF) | payer OTHER ==
[2017-10-24 17:50] LABS: INR 3.45; PROTHROMBIN TIME 36.4 SECONDS (12.4-14.5)
[2017-10-24 18:41] LABS: ANION GAP 10 MEQ/L (8-16); BLOOD UREA NITROGEN 20 MG/DL (7-18); CALCIUM LEVEL 9.3 MG/DL (8.5-10.1); CARBON DIOXIDE LEVEL 26 MEQ/L (21-32); CHLORIDE LEVEL 89 MEQ/L (98-107); CREATININE FOR GFR 1.25 MG/DL (0.55-1.02); GLOMERULAR FILTRATION RATE 48.7 (>58); SODIUM LEVEL 125 MEQ/L (136-145)
[2017-10-24 18:53] LABS: GLUCOSE, FASTING 734 MG/DL (70-105)
== END ==
LOC: M SFHCPLAZ 15:55
DX: I10 Essential (primary) hypertension (principal); Z51.81 Encounter for therapeutic drug level monitoring

== ENCOUNTER 2017-10-25 16:56 | Inpatient (IN) | payer OTHER ==
[2017-10-25 18:19] LABS: VENOUS BASE EXCESS 0.4 (-2.0-2.0); VENOUS HCO3 26.6 MEQ/L (23.0-27.0); VENOUS PARTIAL PRESSURE CO2 49.7 mmHg (38.0-50.0); VENOUS PARTIAL PRESSURE O2 44.6 mmHg (30.0-50.0); VENOUS PH 7.347 UNITS (7.330-7.430); VENOUS STANDARD HCO3 24.4 MEQ/L; VENOUS TOTAL CO2 28.2 MEQ/L (24.0-28.0)
[2017-10-25 18:21] LABS: BASO % 0.4 % (0.0-1.0); EOS # 0.2 10^3/uL (0.0-0.50); EOS % 2.2 % (0.0-3.0); HEMATOCRIT 32.2 % (36.0-47.0); HEMOGLOBIN 11.5 g/dl (12.0-16.0); IMMATURE GRANULOCYTE % 0.6 % (0-0); LYMPH # 1.6 10^3/uL (1.5-4.5); LYMPH % 23.2 % (24.0-44.0); MEAN CORPUSCULAR HEMOGLOBIN 29.8 pg (27.0-33.0); MEAN CORPUSCULAR HGB CONC 35.7 g/dl (32.0-36.5); MEAN CORPUSCULAR VOLUME 83.4 fl (80.0-96.0); MONO # 0.5 10^3/uL (0.0-0.8); MONO % 7.9 % (0.0-5.0); NEUTROPHILS # 4.5 10^3/uL (1.8-7.7); NEUTROPHILS % 65.7 % (36.0-66.0); PLATELET COUNT, AUTOMATED 221 10^3/uL (150-450); RED BLOOD COUNT 3.86 10^6/uL (4.00-5.40); RED CELL DISTRIBUTION WIDTH 13.2 % (11.5-14.5); WHITE BLOOD COUNT 6.8 10^3/uL (4.0-10.0)
[2017-10-25] MEDS: NS 1,000 ML IV ×2 (18:40→22:59)
[2017-10-25 18:43] LABS: ESTIMATED AVERAGE GLUCOSE 292 MG/DL (60-110); HEMOGLOBIN A1c 11.8 %
[2017-10-25 18:48] LABS: ANION GAP 11 MEQ/L (8-16); BLOOD UREA NITROGEN 21 MG/DL (7-18); CALCIUM LEVEL 8.3 MG/DL (8.5-10.1); CARBON DIOXIDE LEVEL 27 MEQ/L (21-32); CHLORIDE LEVEL 92 MEQ/L (98-107); CREATININE FOR GFR 1.26 MG/DL (0.55-1.02); GLOMERULAR FILTRATION RATE 48.2 (>58); SODIUM LEVEL 130 MEQ/L (136-145)
[2017-10-25 18:52] LABS: POTASSIUM SERUM 5.2 MEQ/L (3.5-5.1)
[2017-10-25 18:53] LABS: GLUCOSE, FASTING 505 MG/DL (70-105)
[2017-10-25] MEDS: HumuLIN R (REGULAR) INSULIN (NovoLIN R) **100U/ML** PER UNIT IV (19:15)
[2017-10-25 19:48] LABS: APPEARANCE, URINE CLEAR (CLEAR); BACTERIA, URINE AUTO NEGATIVE (NEGATIVE); BILIRUBIN, URINE AUTO NEGATIVE (NEGATIVE); BLOOD, URINE BLOOD NEGATIVE (NEGATIVE); COLOR, URINE STRAW (YELLOW); GLUCOSE, URINE (UA) AUTO 3+ mg/dL (NEGATIVE); KETONE, URINE AUTO NEGATIVE (NEGATIVE); LEUKOCYTE ESTERASE, URINE AUTO TRACE (NEGATIVE); NITRITE, URINE AUTO NEGATIVE (NEGATIVE); PROTEIN, URINE AUTO 2+ mg/dL (NEGATIVE); RBC, URINE AUTO 1 /HPF (0-3); SPECIFIC GRAVITY URINE AUTO 1.021 (1.002-1.035); SQUAMOUS EPITHELIAL CELL UR AU 2 /HPF (0-6); UROBILINOGEN, URINE AUTO 0.2 mg/dL (0.0-2.0); WBC, URINE AUTO 6 /HPF (0-3)
[2017-10-25 19:55] LABS: BEDSIDE GLUCOSE 299 MG/DL (70-105)
[2017-10-25 20:24] LABS: AMPHETAMINES LEVEL URINE NEGATIVE (NEGATIVE); BARBITURATES URINE NEGATIVE (NEGATIVE); BENZODIAZEPINES URINE NEGATIVE (NEGATIVE); CANNABINOIDS URINE NEGATIVE (NEGATIVE); COCAINE METABOLITE URINE NEGATIVE (NEGATIVE); METHADONE URINE NEGATIVE (NEGATIVE); OPIATES URINE NEGATIVE (NEGATIVE); PHENCYCLIDINE URINE NEGATIVE (NEGATIVE)
[2017-10-25] MEDS: SYMBICORT 160/4.5MCG INHALER 6GM INH (21:00)
[2017-10-25] MEDS ORDERED: TRIAMCINOLONE ACET 0.1% CREAM 15 GM TOP (22:30)
[2017-10-25] MEDS ORDERED: CYCLOBENZAPRINE 10 MG TAB PO (22:30)
[2017-10-25] MEDS ORDERED: ONDANSETRON 4MG/2ML VIAL (J2405) IV (22:30)
[2017-10-25] MEDS ORDERED: NYSTATIN 100,000 UNITS/GM TOPICAL PWD 15 GM TOP (22:30)
[2017-10-25] MEDS ORDERED: ALPRAZolam 0.5 MG TAB PO (22:30)
[2017-10-25] MEDS ORDERED: GLUCAGON FOR INJ 1 MG VIAL (J1610) SC (22:30)
[2017-10-25] MEDS ORDERED: DEXTROSE 50% 50 ML SYRINGE IV (22:30)
[2017-10-25] MEDS ORDERED: GLUCOSE 4 GM CHEW TABLET PO (22:30)
[2017-10-25] MEDS ORDERED: ALBUTEROL 90 MCG/ACT 8GM HFA INHALER INH (22:30)
[2017-10-25] MEDS: FERROUS SULFATE 325MG TAB PO (22:55)
[2017-10-25] MEDS: DOCUSATE SODIUM 100 MG CAP PO (22:55)
[2017-10-25] MEDS: QUEtiapine FUMARATE 100 MG TAB PO (22:55)
[2017-10-25] MEDS: CEPHALEXIN 500 MG CAP PO (22:55)
[2017-10-25] MEDS: rOPINIRole 1MG TAB PO (22:55)
[2017-10-25] MEDS: DULoxetine 30 MG CAP (CYMBALTA) PO (22:56)
[2017-10-25] MEDS: FAMOTIDINE 20 MG TAB PO (22:56)
[2017-10-25] MEDS: traZODone 100 MG TAB PO (22:56)
[2017-10-25] MEDS: MONTELUKAST 10 MG TAB PO (22:56)
[2017-10-25] MEDS: OMEPRAZOLE 20 MG CAP PO (22:56)
[2017-10-25] MEDS: SENNA 8.6 MG TAB (SENOKOT) PO (22:56)
[2017-10-25] MEDS: CARVedilol 6.25 MG TAB PO (22:57)
[2017-10-25] MEDS: SERTRALINE 100 MG TAB PO (22:57)
[2017-10-25] MEDS: PREGABALIN 100 MG CAP (LYRICA) PO (22:57)
[2017-10-25] MEDS: HEPARIN SOD (PORCINE) 5000 UNITS/ML VIAL SC (22:58)
[2017-10-25] MEDS: LEVEMIR (INSULIN DETEMIR) 1 UNITS/0.01ML SC (22:58)
[2017-10-25 23:50] LABS: BEDSIDE GLUCOSE 343 MG/DL (70-105)
[2017-10-26] MEDS: NORCO, ANEXSIA 5/325MG TABLET (HYDROcodone/ACETAMINOPHEN) PO ×4 (00:38→23:59)
[2017-10-26] MEDS: HEPARIN SOD (PORCINE) 5000 UNITS/ML VIAL SC ×3 (05:57→21:04)
[2017-10-26] MEDS: NS 1,000 ML IV ×3 (05:57→22:17)
[2017-10-26 06:21] LABS: BASO % 0.4 % (0.0-1.0); EOS # 0.1 10^3/uL (0.0-0.50); EOS % 1.9 % (0.0-3.0); HEMATOCRIT 31.6 % (36.0-47.0); HEMOGLOBIN 11.1 g/dl (12.0-16.0); IMMATURE GRANULOCYTE % 0.6 % (0-0); LYMPH % 19.9 % (24.0-44.0); MEAN CORPUSCULAR HEMOGLOBIN 29.3 pg (27.0-33.0); MEAN CORPUSCULAR HGB CONC 35.1 g/dl (32.0-36.5); MEAN CORPUSCULAR VOLUME 83.4 fl (80.0-96.0); MONO # 0.3 10^3/uL (0.0-0.8); MONO % 5.2 % (0.0-5.0); NEUTROPHILS # 3.8 10^3/uL (1.8-7.7); PLATELET COUNT, AUTOMATED 193 10^3/uL (150-450); RED BLOOD COUNT 3.79 10^6/uL (4.00-5.40); RED CELL DISTRIBUTION WIDTH 13.2 % (11.5-14.5); WHITE BLOOD COUNT 5.2 10^3/uL (4.0-10.0)
[2017-10-26 06:32] LABS: ANION GAP 7 MEQ/L (8-16); BLOOD UREA NITROGEN 24 MG/DL (7-18); CALCIUM LEVEL 8.6 MG/DL (8.5-10.1); CARBON DIOXIDE LEVEL 27 MEQ/L (21-32); CHLORIDE LEVEL 99 MEQ/L (98-107); CREATININE FOR GFR 1.07 MG/DL (0.55-1.02); GLOMERULAR FILTRATION RATE 58.3 (>58); GLUCOSE, FASTING 344 MG/DL (70-105); POTASSIUM SERUM 5.1 MEQ/L (3.5-5.1); SODIUM LEVEL 133 MEQ/L (136-145)
[2017-10-26] MEDS: valACYclovir HCL 500 MG TAB PO (07:39)
[2017-10-26] MEDS: DULoxetine 30 MG CAP (CYMBALTA) PO ×2 (07:39→21:03)
[2017-10-26] MEDS: CEPHALEXIN 500 MG CAP PO ×2 (07:39→21:03)
[2017-10-26] MEDS: OMEPRAZOLE 20 MG CAP PO ×2 (07:40→21:03)
[2017-10-26] MEDS: PREGABALIN 100 MG CAP (LYRICA) PO ×2 (07:40→21:04)
[2017-10-26] MEDS: amLODIPine 5 MG TAB PO (07:41)
[2017-10-26] MEDS: CARVedilol 6.25 MG TAB PO ×2 (07:41→21:06)
[2017-10-26] MEDS: BENAZEPRIL 20 MG TAB PO (07:41)
[2017-10-26] MEDS: HumaLOG INSULIN (NovoLOG) PER UNIT SC ×4 (07:42→21:05)
[2017-10-26] MEDS: SYMBICORT 160/4.5MCG INHALER 6GM INH ×2 (08:25→21:00)
[2017-10-26 13:28] LABS: BEDSIDE GLUCOSE 200 MG/DL (70-105)
[2017-10-26 15:06] LABS: CREATININE, URINE 33.8 MG/DL; MAU/CREAT RATIO 2988.1 MCG/MG (0.0-30.0)
[2017-10-26 16:53] LABS: BEDSIDE GLUCOSE 314 MG/DL (70-105)
[2017-10-26] MEDS: QUEtiapine FUMARATE 100 MG TAB PO (21:03)
[2017-10-26] MEDS: traZODone 100 MG TAB PO (21:03)
[2017-10-26] MEDS: SERTRALINE 100 MG TAB PO (21:03)
[2017-10-26] MEDS: rOPINIRole 1MG TAB PO (21:03)
[2017-10-26] MEDS: FERROUS SULFATE 325MG TAB PO (21:04)
[2017-10-26] MEDS: SENNA 8.6 MG TAB (SENOKOT) PO (21:04)
[2017-10-26] MEDS: DOCUSATE SODIUM 100 MG CAP PO (21:04)
[2017-10-26] MEDS: FAMOTIDINE 20 MG TAB PO (21:04)
[2017-10-26] MEDS: MONTELUKAST 10 MG TAB PO (21:04)
[2017-10-26] MEDS: LEVEMIR (INSULIN DETEMIR) 1 UNITS/0.01ML SC (21:05)
[2017-10-26 21:14] LABS: BEDSIDE GLUCOSE 349 MG/DL (70-105)
[2017-10-27] MEDS: HEPARIN SOD (PORCINE) 5000 UNITS/ML VIAL SC ×3 (05:22→21:06)
[2017-10-27] MEDS: NORCO, ANEXSIA 5/325MG TABLET (HYDROcodone/ACETAMINOPHEN) PO ×4 (05:26→19:25)
[2017-10-27] MEDS: NS 1,000 ML IV ×3 (06:07→21:06)
[2017-10-27 07:57] LABS: BEDSIDE GLUCOSE 249 MG/DL (70-105)
[2017-10-27] MEDS: OMEPRAZOLE 20 MG CAP PO ×2 (08:03→21:07)
[2017-10-27] MEDS: CEPHALEXIN 500 MG CAP PO ×2 (08:03→21:07)
[2017-10-27] MEDS: PREGABALIN 100 MG CAP (LYRICA) PO ×2 (08:03→21:07)
[2017-10-27] MEDS: CARVedilol 6.25 MG TAB PO ×2 (08:03→21:08)
[2017-10-27] MEDS: DULoxetine 30 MG CAP (CYMBALTA) PO ×2 (08:04→21:07)
[2017-10-27] MEDS: VALSARTAN 80 MG TAB (DIOVAN) PO (08:04)
[2017-10-27] MEDS: amLODIPine 5 MG TAB PO (08:04)
[2017-10-27] MEDS: valACYclovir HCL 500 MG TAB PO (08:04)
[2017-10-27] MEDS: HumaLOG INSULIN (NovoLOG) PER UNIT SC ×4 (08:05→21:10)
[2017-10-27 08:18] LABS: BASO % 0.3 % (0.0-1.0); EOS # 0.1 10^3/uL (0.0-0.50); EOS % 3.9 % (0.0-3.0); HEMATOCRIT 30.9 % (36.0-47.0); HEMOGLOBIN 10.7 g/dl (12.0-16.0); IMMATURE GRANULOCYTE % 1.1 % (0-0); LYMPH # 1.1 10^3/uL (1.5-4.5); LYMPH % 31.8 % (24.0-44.0); MEAN CORPUSCULAR HEMOGLOBIN 29.6 pg (27.0-33.0); MEAN CORPUSCULAR HGB CONC 34.6 g/dl (32.0-36.5); MEAN CORPUSCULAR VOLUME 85.4 fl (80.0-96.0); MONO # 0.3 10^3/uL (0.0-0.8); MONO % 7.5 % (0.0-5.0); NEUTROPHILS % 55.4 % (36.0-66.0); PLATELET COUNT, AUTOMATED 183 10^3/uL (150-450); RED BLOOD COUNT 3.62 10^6/uL (4.00-5.40); RED CELL DISTRIBUTION WIDTH 13.7 % (11.5-14.5); WHITE BLOOD COUNT 3.6 10^3/uL (4.0-10.0)
[2017-10-27 08:31] LABS: ANION GAP 7 MEQ/L (8-16); BLOOD UREA NITROGEN 35 MG/DL (7-18); CALCIUM LEVEL 8.5 MG/DL (8.5-10.1); CARBON DIOXIDE LEVEL 25 MEQ/L (21-32); CHLORIDE LEVEL 105 MEQ/L (98-107); CREATININE FOR GFR 1.32 MG/DL (0.55-1.02); GLOMERULAR FILTRATION RATE 45.7 (>58); GLUCOSE, FASTING 249 MG/DL (70-105); POTASSIUM SERUM 4.7 MEQ/L (3.5-5.1); SODIUM LEVEL 137 MEQ/L (136-145)
[2017-10-27] MEDS: SYMBICORT 160/4.5MCG INHALER 6GM INH ×2 (08:47→21:00)
[2017-10-27 12:10] LABS: BEDSIDE GLUCOSE 299 MG/DL (70-105)
[2017-10-27 16:34] LABS: PROTHROMBIN TIME 32.5 SECONDS (12.4-14.5)
[2017-10-27 17:12] LABS: BEDSIDE GLUCOSE 352 MG/DL (70-105)
[2017-10-27] MEDS: FERROUS SULFATE 325MG TAB PO (21:07)
[2017-10-27] MEDS: QUEtiapine FUMARATE 100 MG TAB PO (21:07)
[2017-10-27] MEDS: MONTELUKAST 10 MG TAB PO (21:07)
[2017-10-27] MEDS: DOCUSATE SODIUM 100 MG CAP PO (21:08)
[2017-10-27] MEDS: FAMOTIDINE 20 MG TAB PO (21:08)
[2017-10-27] MEDS: LEVEMIR (INSULIN DETEMIR) 1 UNITS/0.01ML SC (21:10)
[2017-10-27] MEDS: SENNA 8.6 MG TAB (SENOKOT) PO (21:14)
[2017-10-27] MEDS: traZODone 100 MG TAB PO (21:14)
[2017-10-27] MEDS: rOPINIRole 1MG TAB PO (21:14)
[2017-10-27] MEDS: SERTRALINE 100 MG TAB PO (21:14)
[2017-10-27 22:41] LABS: BEDSIDE GLUCOSE 331 MG/DL (70-105)
[2017-10-28] MEDS: NORCO, ANEXSIA 5/325MG TABLET (HYDROcodone/ACETAMINOPHEN) PO ×3 (00:49→11:12)
[2017-10-28] MEDS: HEPARIN SOD (PORCINE) 5000 UNITS/ML VIAL SC (05:05)
[2017-10-28 06:01] LABS: BASO % 0.6 % (0.0-1.0); EOS # 0.2 10^3/uL (0.0-0.50); EOS % 5.1 % (0.0-3.0); HEMATOCRIT 28.8 % (36.0-47.0); IMMATURE GRANULOCYTE % 1.2 % (0-0); LYMPH # 1.5 10^3/uL (1.5-4.5); MEAN CORPUSCULAR HEMOGLOBIN 29.3 pg (27.0-33.0); MEAN CORPUSCULAR HGB CONC 34.7 g/dl (32.0-36.5); MEAN CORPUSCULAR VOLUME 84.5 fl (80.0-96.0); MONO # 0.3 10^3/uL (0.0-0.8); MONO % 10.2 % (0.0-5.0); NEUTROPHILS # 1.3 10^3/uL (1.8-7.7); NEUTROPHILS % 38.9 % (36.0-66.0); PLATELET COUNT, AUTOMATED 162 10^3/uL (150-450); RED BLOOD COUNT 3.41 10^6/uL (4.00-5.40); RED CELL DISTRIBUTION WIDTH 13.4 % (11.5-14.5); WHITE BLOOD COUNT 3.3 10^3/uL (4.0-10.0)
[2017-10-28 06:20] LABS: ANION GAP 7 MEQ/L (8-16); BLOOD UREA NITROGEN 30 MG/DL (7-18); CALCIUM LEVEL 8.5 MG/DL (8.5-10.1); CARBON DIOXIDE LEVEL 25 MEQ/L (21-32); CHLORIDE LEVEL 107 MEQ/L (98-107); CREATININE FOR GFR 0.97 MG/DL (0.55-1.02); GLOMERULAR FILTRATION RATE > 60.0 (>58); GLUCOSE, FASTING 200 MG/DL (70-105); SODIUM LEVEL 139 MEQ/L (136-145)
[2017-10-28 06:25] LABS: INR 2.56; PROTHROMBIN TIME 28.6 SECONDS (12.4-14.5)
[2017-10-28] MEDS: NS 1,000 ML IV ×2 (06:45→10:00)
[2017-10-28] MEDS: DULoxetine 30 MG CAP (CYMBALTA) PO (07:53)
[2017-10-28] MEDS: valACYclovir HCL 500 MG TAB PO (07:54)
[2017-10-28] MEDS: HumaLOG INSULIN (NovoLOG) PER UNIT SC ×2 (07:54→11:56)
[2017-10-28] MEDS: amLODIPine 5 MG TAB PO (07:55)
[2017-10-28] MEDS: VALSARTAN 80 MG TAB (DIOVAN) PO (07:55)
[2017-10-28] MEDS: PREGABALIN 100 MG CAP (LYRICA) PO (07:55)
[2017-10-28] MEDS: CARVedilol 6.25 MG TAB PO (07:56)
[2017-10-28] MEDS: OMEPRAZOLE 20 MG CAP PO (07:56)
[2017-10-28] MEDS: CEPHALEXIN 500 MG CAP PO (07:56)
[2017-10-28] MEDS: SYMBICORT 160/4.5MCG INHALER 6GM INH (08:15)
[2017-10-28 11:46] LABS: BEDSIDE GLUCOSE 185 MG/DL (70-105)
[2017-10-30 08:07] LABS: C-TELOPEPTIDE 307 pg/mL (.)
[2017-10-30 08:07] LABS: ISLET CELL ANTIBODIES Negative (Neg:<1:1)
== END 2017-10-28 12:48 | disposition home or self-care (01) | DRG 637 ==
LOC: M ED 16:56 → M ED INP 20:42 → M MSPAV 22:09
DX: E11.65 Type 2 diabetes mellitus with hyperglycemia (principal); E11.00 Type 2 diabetes mellitus with hyperosmolarity without nonketotic hyperglycemic-hyperosmolar coma (NKHHC); N39.0 Urinary tract infection, site not specified; N17.9 Acute kidney failure, unspecified; I10 Essential (primary) hypertension; E87.5 Hyperkalemia; I16.0 Hypertensive urgency; E66.01 Morbid (severe) obesity due to excess calories; G25.81 Restless legs syndrome; J45.909 Unspecified asthma, uncomplicated; E11.40 Type 2 diabetes mellitus with diabetic neuropathy, unspecified; K21.9 Gastro-esophageal reflux disease without esophagitis; Z79.4 Long term (current) use of insulin; Z79.899 Other long term (current) drug therapy; Z91.040 Latex allergy status; Z88.0 Allergy status to penicillin; Z88.2 Allergy status to sulfonamides; Z88.1 Allergy status to other antibiotic agents; Z91.018 Allergy to other foods; Z88.8 Allergy status to other drugs, medicaments and biological substances; Z90.49 Acquired absence of other specified parts of digestive tract; Z90.710 Acquired absence of both cervix and uterus; Z87.891 Personal history of nicotine dependence

== ENCOUNTER → 2017-10-25 | Outpatient (CLI) | payer OTHER | LOC: M RAD 10:30 | DX: N63.10 Unspecified lump in the right breast, unspecified quadrant (principal); R92.0 Mammographic microcalcification found on diagnostic imaging of breast; N60.01 Solitary cyst of right breast | CPT/HCPCS: 77066 ==

== ENCOUNTER → 2017-11-03 | Outpatient (REF) | payer OTHER ==
[2017-11-03 12:05] LABS: INR 1.16
== END ==
LOC: M SFHCPLAZ 10:38
DX: Z51.81 Encounter for therapeutic drug level monitoring (principal)
CPT/HCPCS: 85610

== ENCOUNTER → 2017-11-08 | Outpatient (REF) | payer OTHER ==
[2017-11-08 14:28] LABS: ANION GAP 9 MEQ/L (8-16); BLOOD UREA NITROGEN 23 MG/DL (7-18); CALCIUM LEVEL 8.4 MG/DL (8.5-10.1); CARBON DIOXIDE LEVEL 25 MEQ/L (21-32); CHLORIDE LEVEL 99 MEQ/L (98-107); GLOMERULAR FILTRATION RATE 56.4 (>58); INR 3.02; PROTHROMBIN TIME 32.7 SECONDS (12.4-14.5); SODIUM LEVEL 133 MEQ/L (136-145)
[2017-11-08 15:11] LABS: GLUCOSE, FASTING 454 MG/DL (70-100); POTASSIUM SERUM 5.7 MEQ/L (3.5-5.1)
== END ==
LOC: M SFHCPLAZ 10:26
DX: E87.5 Hyperkalemia (principal); I10 Essential (primary) hypertension; I82.409 Acute embolism and thrombosis of unspecified deep veins of unspecified lower extremity; Z51.81 Encounter for therapeutic drug level monitoring; Z79.01 Long term (current) use of anticoagulants

== ENCOUNTER → 2017-11-16 | Outpatient (REF) | payer OTHER ==
[2017-11-16 13:48] LABS: INR 4.25; PROTHROMBIN TIME 43.1 SECONDS (12.4-14.5)
[2017-11-16 14:18] LABS: ANION GAP 7 MEQ/L (8-16); BLOOD UREA NITROGEN 16 MG/DL (7-18); CALCIUM LEVEL 9.3 MG/DL (8.5-10.1); CARBON DIOXIDE LEVEL 26 MEQ/L (21-32); CHLORIDE LEVEL 101 MEQ/L (98-107); CREATININE FOR GFR 0.86 MG/DL (0.55-1.30); GLOMERULAR FILTRATION RATE > 60.0 (>58); GLUCOSE, FASTING 338 MG/DL (70-100); POTASSIUM SERUM 4.8 MEQ/L (3.5-5.1); SODIUM LEVEL 134 MEQ/L (136-145)
== END ==
LOC: M SFHCPLAZ 10:55
DX: E87.5 Hyperkalemia (principal); Z51.81 Encounter for therapeutic drug level monitoring

== ENCOUNTER → 2017-11-21 | Outpatient (REF) | payer OTHER ==
[2017-11-21 15:55] LABS: INR 1.29; PROTHROMBIN TIME 16.4 SECONDS (12.4-14.5)
== END ==
LOC: M SFHCPLAZ 11:57
DX: I82.409 Acute embolism and thrombosis of unspecified deep veins of unspecified lower extremity (principal); Z51.81 Encounter for therapeutic drug level monitoring; Z79.01 Long term (current) use of anticoagulants

== ENCOUNTER → 2017-11-29 | Outpatient (REF) | payer OTHER ==
[2017-11-29 11:57] LABS: INR 1.89; PROTHROMBIN TIME 22.3 SECONDS (12.4-14.5)
== END ==
LOC: M SFHCPLAZ 08:56
DX: Z51.81 Encounter for therapeutic drug level monitoring (principal); Z79.01 Long term (current) use of anticoagulants
CPT/HCPCS: 85610

== ENCOUNTER → 2017-12-05 | Outpatient (CLI) | payer OTHER ==
[~2017-12-05] MED LIST changes: -/ADVA50050; -/DULO30CA; -/DULO30CA PO; -/ESOM40CA; -/GLIP10TAB; -/INSULEV; -/LINE60TA; -/PANT40TA; -/TAMS4CA; -/ZOLP6ER; -ABIL15TA; -ABIL1TAB13 PO; -ACTOS45 PO; -ALBU17IN INH; -ALBUTEROL INHALATION; -ALPR1TAB3 PO; -AMBI10TA; -AMIT10TA2; -AMIT25TA PO; -AMIT25TA2; -AMIT50TA PO; -AMIT75TA PO; -AMITRIP25 PO; -AMITRIP50 PO; -AMMO12CR4 TOP; -ASPI1TAB PO; -ASTELIN NASAL; -ATEN100T PO; -ATEN50TA2 PO; -AVEL1TAB3 PO; -BABY81CH; -BABY81CH OR; -BACITAB PO; -BACT2CRE TOP; -BACT800T5 PO; -BENA20TA PO; -BENA20TA8 PO; -BENA25CA2 PO; -BENA25TA4 PO; -BENA40TA OR; -BENA40TA7 PO; -BETA1OI TOP; -BYDU1INJ SC; -CAPSAICIN TOP; -CARV25TA PO; -CARV6.25 PO; -CATAPRESS PO; -CEFA1VL IV; -CEFT1INJ65 IV; -CEPH500C PO; -CETI10TA PO; -CHLO125TA PO; -CLAR1TAB2 PO; -CLIN300C2 PO; -CLINDAMYCIN PO; -COLA100C5 PO; -COLA50CA PO; -CORE12.5 PO; -CORE25TA PO; -COUGH SYRUP PO; -COUM1TAB17 PO; -COUM1TAB19 PO; -COUM2.5T17 PO; -COUM2TAB22 PO; -CYCL10TA PO; -CYMBALTA60 PO; -DARV100T; -DEPA250T32 PO; -DIAZ5TAB PO; -DICL50TA2 PO; -DICL50TAB PO; -DICL5SOL TOP; -DICY10CA13 PO; -DICY1CAP8 PO; -DIFL200T PO; -DILA2TAB; -DIPH50CA PO; -DULC5TAB PO; -DULO1CAP2 PO; -DULO1CAP3 PO; -DULO30CA PO; -ELMIRON; -EPI SC; -EPIP0.3I2 SC; -ERYT PO; -ESZO1TAB3 PO; -FERR1TAB8 PO; -FLOM5CAP PO; -FLOMAX 0.4 PO; -FLON1SPR; -FLUC200T2 PO; -FOCALIN XR OR; -FURO20TA2 PO; -FURO40TA2 PO; -FURO80TA2 PO; -GARAMYCIN TOP; -GENT0.1C2 TOP; -GENT1OI TOP; -GEOD20CA14; -GLUCOTRO10 PO; -GLUCULTRA TOPICAL; -HABITROL14 TOPICAL; -HABITROL2 TOPICAL; -HABITROL7 TOPICAL; -HEPA100PFS IV; -HEPA100SY IV; -HEPA10IN19 IV; -HEPA10PFSY IV; -HUMA100I3 SC; -HUMA50IN4 SC; -HUMUINJ; -HUMUINJ SQ; -HUMULIN U; -HUMULINR SC; -HYDR-3719 PO; -HYDR25TA6 OR; -HYDR25TAB PO; -IMIT6INJ; -IMIT6INJ SC; -IMIT6KIT2 SC; -IMMUN20IV2 IV; -IMMUNOGLOBULIN IV; -INSUHUMDS SC; -INSULADS SC; -INSULANT; -INSULANT SC; -INSULIN 70/30; -INSULIN NPH; -INSUR50VL SC; -INVA1INJ IV; -INVO100T PO; -JANUVIA; -JANUVIA100 PO; -K-TA10TA PO; -KEFL500C17 PO; -KLON0.5T OR; -KLONOPIN PO; -KLOR1TAB77 PO; -LAMI1TAB9 PO; -LAMO10TA PO; -LAMO200T PO; -LANTUS SQ; -LASI20TA; -LASI20TA OR; -LASI40TA PO; -LEVA1.25 INH; -LEVA12INH INH; -LEVA500T; -LEVA750T7 PO; -LEVO500T3 PO; -LIDO1OIN2 TOP; +LIDOCAINE 1% MDV 20ML VIAL As Ordered; -LIDODERM TOPICAL; -LINE60TAB PO; -LISI20TA5; -LISI5TAB; -LISINOPR5 PO; -LOMO2.5T PO; -LOPE2CAP PO; -LOPI600T; -LOPID600 PO; -LORTAB10 PO; -LOTE10TA11 PO; -LOVE0.01 SC; -LUNE2TAB23 PO; -LUNE3TAB36 PO; -LUNESTA PO; -LYRI200C; -LYRI300C; -LYRI300C PO; -LYRICA100 PO; -LYRICA75 PO; -MA; -MACR100C43 PO; -MAG-TAB; -MAGIC MOUTHWASH; -MAGN1TAB25 PO; -MAGN400T PO; -MECL-68 PO; -MECL1CHW2 PO; -METH10TA2 PO; -MOBIC15 PO; -MONT10TA2 PO; -NAPR250T4 PO; -NEEDLEBB SC; -NEUR100C PO; -NEXIUM40 PO; -NICO14DI3 TD; -NICO21DI4; -NIZORAL200 PO; -NORC10TA21 PO; -NORMINJ22 IV; -NORT25CA2 PO; -NORT50CA PO; -NORT75CA2 PO; -NOVOLIN N; -NOVOLOG100 MG/ML; -NYST1POW9 TOP; -NYSTAT100 PO; -OMEP40CA2 PO; -OXYC-517 PO; -OXYC10TA97 PO; -PAXI10TA; -PAXI10TA2 PO; -PAXI30TA; -PAXI40TA; -PAXI40TA OR; -PERC10TA26 PO; -PERC5TAB12 PO; -PERC5TAB8 PO; -PERCOCET PO; -POTA20TA PO; -POTA20TA2 OR; -PRAM1TAB3 PO; -PRED20TAB PO; -PREDNISONE DOSE PACK PO; -PREG100CA; -PRIL40CA; -PRIL40CA PO; -PROB250C PO; -PROV90AE; -QUET1TAB10 PO; -QUET30TA PO; -QUET30XR OR; -RANI15TA PO; -REFR0.5D8 OU; -REGL5TAB2 PO; -REQU4TAB3 OR; -REQU4TAB3 PO; -REQUIP1 PO; -REQUIP2 PO; -RISP4TAB33 PO; -ROBA500T PO; -ROPI4TAB PO; -ROZE8TAB16 PO; -ROZEREM PO; -SALI0.9I2 IV; -SANT250O8 TOP; -SENN1TAB10 PO; -SENN8.6T76 PO; -SENO8.6T10 PO; -SERO1TAB2 PO; -SERO400T; -SERO400T OR; -SERO400T3; -SEROQUE200 PO; -SERT-138 PO; -SERT50TA PO; -SING10TA32 PO; -SKEL800T5; -SLOWMAG PO; -SLOWTAB; -SOMA350T PO; -SPACER -; -SPIR25TA2 PO; -SYMB16INH INH; -SYMB80AE INH; -SYMB80INH INH; -TERB250T12 PO; -TESS100C PO; -TIGA300C; -TIGAN PO; -TOPA1TAB PO; -TOPI100T9 PO; -TOPI25TA2 OR; -TORS10TA3 PO; -TORS20TA2 PO; -TOUJ1.2I SC; -TRAM50TA2; -TRAM50TA2 PO; -TRAZ-136 PO; -TRAZ50TA11 PO; -TRIL600T; -TRIL600T PO; -TYLE325T5 PO; -TYLENOL #3; -ULTR50TA8 PO; -ULTRAM50 PO; -VALI10TA PO; -VALI5TAB PO; -VALISONE TOP; -VALT500T PO; -VALTREX100 PO; -VANC10005 IV; -VANC125C2 PO; -VANC1INJ IV; -VENTAER; -VENTAER INH; -VENTOLININ INHALATION; -VERA40TA PO; -VIBR100C; -VICO5TAB; -VICO5TAB OR; -VICTOZA SQ; -WARF-23 PO; -WARF-58 PO; -WARF4TAB52 PO; -WELLTAB38 PO; -WELLTAB4 PO; -XANA0.5T; -XANA1TAB2; -XANA2TAB; -XANA2TAB2; -XANA2TAB2 OR; -XARE20TA PO; -XIID5DRO OU; -XOPE1.252; -XOPE1.252 INH; -XOPENEX125 NEB; -Z PACK PO; -ZANA4TAB PO; -ZIPR80CAP PO; -ZOFR20TA PO; -ZOFR8TAB; -ZOFR8TAB PO; -ZYRT10TA2 PO; -ZYVO100T PO; -[UNRECOGNIZED DRUG - CODE] SC; -[UNRECOGNIZED DRUG - CODE] SC; -[UNRECOGNIZED DRUG - CODE] SC; -[UNRECOGNIZED DRUG - CODE] SL; -[UNRECOGNIZED DRUG - OTHER]; -[UNRECOGNIZED DRUG - OTHER]; -[UNRECOGNIZED DRUG - OTHER]; -[UNRECOGNIZED DRUG - OTHER] PO; -[UNRECOGNIZED DRUG - OTHER] PO; -[UNRECOGNIZED DRUG - OTHER] SC; -benzapril PO; -elavil; -elmiron; -omnicef PO; -paxil; -percocet
== END ==
LOC: M RADPRO 12:02
DX: R92.0 Mammographic microcalcification found on diagnostic imaging of breast (principal); Z79.899 Other long term (current) drug therapy; Z79.4 Long term (current) use of insulin; Z79.01 Long term (current) use of anticoagulants; Z91.040 Latex allergy status; Z88.0 Allergy status to penicillin; Z88.8 Allergy status to other drugs, medicaments and biological substances
CPT/HCPCS: 19081

== ENCOUNTER → 2017-12-13 | Outpatient (REF) | payer OTHER ==
[2017-12-13 11:59] LABS: INR 2.39
== END ==
LOC: M SFHCPLAZ 08:56
DX: I82.409 Acute embolism and thrombosis of unspecified deep veins of unspecified lower extremity (principal); Z51.81 Encounter for therapeutic drug level monitoring; Z79.01 Long term (current) use of anticoagulants

== ENCOUNTER → 2017-12-28 | Outpatient (REF) | payer OTHER ==
[2017-12-28 13:09] LABS: INR 3.42; PROTHROMBIN TIME 36.1 SECONDS (12.4-14.5)
== END ==
LOC: M SFHCPLAZ 09:41
DX: I82.409 Acute embolism and thrombosis of unspecified deep veins of unspecified lower extremity (principal)

== ENCOUNTER → 2017-12-30 | Outpatient (CLI) | payer OTHER | LOC: M RAD 06:40 | DX: M25.551 Pain in right hip (principal); R93.7 Abnormal findings on diagnostic imaging of other parts of musculoskeletal system | CPT/HCPCS: 73721 ==

== ENCOUNTER → 2018-01-06 | Outpatient (REF) | payer OTHER ==
[2018-01-06 12:32] LABS: INR 1.75
[2018-01-06 12:40] LABS: ANION GAP 10 MEQ/L (8-16); BLOOD UREA NITROGEN 20 MG/DL (7-18); CARBON DIOXIDE LEVEL 26 MEQ/L (21-32); CHLORIDE LEVEL 96 MEQ/L (98-107); CREATININE FOR GFR 1.17 MG/DL (0.55-1.30); GLOMERULAR FILTRATION RATE 52.6 (>58); POTASSIUM SERUM 5.1 MEQ/L (3.5-5.1); SODIUM LEVEL 132 MEQ/L (136-145)
[2018-01-06 12:46] LABS: ESTIMATED AVERAGE GLUCOSE 321 MG/DL (60-110); GLUCOSE, FASTING 543 MG/DL (70-100); HEMOGLOBIN A1c 12.8 %
== END ==
LOC: M SFHCPLAZ 09:06
DX: E11.40 Type 2 diabetes mellitus with diabetic neuropathy, unspecified (principal); E11.22 Type 2 diabetes mellitus with diabetic chronic kidney disease; Z51.81 Encounter for therapeutic drug level monitoring; Z79.01 Long term (current) use of anticoagulants; I82.409 Acute embolism and thrombosis of unspecified deep veins of unspecified lower extremity

== ENCOUNTER → 2018-01-13 | Outpatient (REF) | payer OTHER ==
[2018-01-13 16:35] LABS: INR 3.01; PROTHROMBIN TIME 32.6 SECONDS (12.4-14.5)
== END ==
LOC: M SFHCPLAZ 12:59
DX: I82.409 Acute embolism and thrombosis of unspecified deep veins of unspecified lower extremity (principal)

== ENCOUNTER 2018-02-14 09:20 | Inpatient (IN) | payer OTHER ==
[2018-02-14] MEDS: NS 1,000 ML IV ×6 (09:59→21:51)
[2018-02-14 10:02] LABS: VENOUS BASE EXCESS 1.8 (-2.0-2.0); VENOUS HCO3 29.7 MEQ/L (23.0-27.0); VENOUS O2 SATURATION 31.5 % (60.0-80.0); VENOUS PARTIAL PRESSURE CO2 62.4 mmHg (38.0-50.0); VENOUS PARTIAL PRESSURE O2 22.2 mmHg (30.0-50.0); VENOUS PH 7.296 UNITS (7.330-7.430); VENOUS STANDARD HCO3 24.5 MEQ/L; VENOUS TOTAL CO2 31.7 MEQ/L (24.0-28.0)
[2018-02-14 10:11] LABS: BEDSIDE GLUCOSE 417 MG/DL (70-105)
[2018-02-14 10:15] LABS: BASO % 0.3 % (0.0-1.0); EOS # 0.2 10^3/uL (0.0-0.50); EOS % 1.7 % (0.0-3.0); HEMATOCRIT 37.9 % (36.0-47.0); HEMOGLOBIN 13.1 g/dl (12.0-15.5); IMMATURE GRANULOCYTE % 0.7 % (0-3.0); LYMPH # 2.2 10^3/uL (1.5-4.5); LYMPH % 20.5 % (24.0-44.0); MEAN CORPUSCULAR HEMOGLOBIN 28.6 pg (27.0-33.0); MEAN CORPUSCULAR HGB CONC 34.6 g/dl (32.0-36.5); MEAN CORPUSCULAR VOLUME 82.8 fl (80.0-96.0); MONO # 0.9 10^3/uL (0.0-0.8); MONO % 8.3 % (0.0-5.0); NEUTROPHILS # 7.4 10^3/uL (1.8-7.7); NEUTROPHILS % 68.5 % (36.0-66.0); PLATELET COUNT, AUTOMATED 359 10^3/uL (150-450); RED BLOOD COUNT 4.58 10^6/uL (4.00-5.40); RED CELL DISTRIBUTION WIDTH 13.5 % (11.5-14.5); WHITE BLOOD COUNT 10.7 10^3/uL (4.0-10.0)
[2018-02-14 10:25] LABS: AMMONIA 19 uMOL/L (<32)
[2018-02-14 10:33] LABS: CONTROL LINE HCG INT CTR LINE PRESENT; HCG, SERUM QUALITATIVE NEGATIVE (NEGATIVE)
[2018-02-14 11:27] LABS: OSMOLALITY SERUM 302 MOSM/KG (275-295)
[2018-02-14 12:09] LABS: ANION GAP 13 MEQ/L (8-16); BLOOD UREA NITROGEN 28 MG/DL (7-18); CALCIUM LEVEL 8.7 MG/DL (8.5-10.1); CARBON DIOXIDE LEVEL 26 MEQ/L (21-32); CHLORIDE LEVEL 97 MEQ/L (98-107); CREATININE FOR GFR 1.86 MG/DL (0.55-1.30); GLOMERULAR FILTRATION RATE 30.8 (>58); GLUCOSE, FASTING 325 MG/DL (70-100); POTASSIUM SERUM 4.1 MEQ/L (3.5-5.1); SODIUM LEVEL 136 MEQ/L (136-145)
[2018-02-14 12:10] LABS: ALT/SGPT 33 U/L (12-78); AST/SGOT 27 U/L (7-37); CK-MB VALUE MASS 2.2 NG/ML (<3.6); CPK CREATINE PHOSPHOKINASE 110 U/L (26-192)
[2018-02-14 12:11] LABS: ALBUMIN 3.3 GM/DL (3.2-5.2); ALBUMIN/GLOBULIN RATIO 0.75 (1.00-1.93); ALKALINE PHOSPHATASE 132 U/L (45-117); BILIRUBIN,DIRECT < 0.1 MG/DL (0.0-0.2); BILIRUBIN,TOTAL 0.4 MG/DL (0.2-1.0); ETHYL ALCOHOL (ETHANOL) < 0.003 % (0.000-0.010); TOTAL PROTEIN 7.7 GM/DL (6.4-8.2); TROPONIN I < 0.02 NG/ML (< 0.10)
[2018-02-14] MEDS: HumuLIN R (REGULAR) INSULIN (NovoLIN R) **100U/ML** PER UNIT IV (12:46)
[2018-02-14 13:01] LABS: INR 3.92; PROTHROMBIN TIME 40.3 SECONDS (12.4-14.5)
[2018-02-14] MEDS: ANEXSIA, NORCO 7.5MG/325MG TABLET(HYDROCODONE/APAP) PO (14:09)
[2018-02-14 16:26] LABS: BEDSIDE GLUCOSE 218 MG/DL (70-105)
[2018-02-14 17:27] LABS: AMORPHOUS SEDIMENT SMALL (NEGATIVE); APPEARANCE, URINE HAZY (CLEAR); BACTERIA, URINE AUTO 1+ (NEGATIVE); BILIRUBIN, URINE AUTO NEGATIVE (NEGATIVE); BLOOD, URINE BLOOD NEGATIVE (NEGATIVE); COLOR, URINE YELLOW (YELLOW); GLUCOSE, URINE (UA) AUTO 3+ mg/dL (NEGATIVE); KETONE, URINE AUTO NEGATIVE (NEGATIVE); LEUKOCYTE ESTERASE, URINE AUTO NEGATIVE (NEGATIVE); MUCUS, URINE SMALL (NEGATIVE); NITRITE, URINE AUTO NEGATIVE (NEGATIVE); PROTEIN, URINE AUTO 2+ mg/dL (NEGATIVE); RBC, URINE AUTO 2 /HPF (0-3); SQUAMOUS EPITHELIAL CELL UR AU 0 /HPF (0-6); UROBILINOGEN, URINE AUTO 0.2 mg/dL (0.0-2.0); WBC, URINE AUTO 7 /HPF (0-3)
[2018-02-14 17:44] LABS: AMPHETAMINES LEVEL URINE NEGATIVE (NEGATIVE); BARBITURATES URINE NEGATIVE (NEGATIVE); BENZODIAZEPINES URINE NEGATIVE (NEGATIVE); CANNABINOIDS URINE NEGATIVE (NEGATIVE); COCAINE METABOLITE URINE NEGATIVE (NEGATIVE); METHADONE URINE NEGATIVE (NEGATIVE); OPIATES URINE POSITIVE (NEGATIVE); PHENCYCLIDINE URINE NEGATIVE (NEGATIVE)
[2018-02-14] MEDS ORDERED: CYCLOBENZAPRINE 5MG TABLET PO (18:30)
[2018-02-14] MEDS ORDERED: ALBUTEROL 90 MCG/ACT 8GM HFA INHALER INH (18:30)
[2018-02-14] MEDS ORDERED: ALPRAZolam 0.5 MG TAB PO (18:30)
[2018-02-14] MEDS ORDERED: ONDANSETRON 4MG/2ML VIAL (J2405) IV (19:30)
[2018-02-14] MEDS ORDERED: GLUCOSE 4 GM CHEW TABLET PO (19:30)
[2018-02-14] MEDS ORDERED: DEXTROSE 50% 50 ML SYRINGE IV (19:30)
[2018-02-14] MEDS ORDERED: GLUCAGON FOR INJ 1 MG VIAL (J1610) SC (19:30)
[2018-02-14 21:23] LABS: BEDSIDE GLUCOSE 256 MG/DL (70-105)
[2018-02-14] MEDS: LEVEMIR (INSULIN DETEMIR) 1 UNITS/0.01ML SC (22:11)
[2018-02-14] MEDS: FAMOTIDINE 20 MG TAB PO (22:12)
[2018-02-14] MEDS: SERTRALINE 100 MG TAB PO (22:12)
[2018-02-14] MEDS: HumaLOG INSULIN (NovoLOG) PER UNIT SC (22:12)
[2018-02-14] MEDS: OMEPRAZOLE 20 MG CAP PO (22:12)
[2018-02-14] MEDS: DOCUSATE SODIUM 100 MG CAP PO (22:12)
[2018-02-14] MEDS: MONTELUKAST 10 MG TAB PO (22:13)
[2018-02-14] MEDS: traZODone 100 MG TAB PO (22:13)
[2018-02-14] MEDS: FERROUS SULFATE 325MG TAB PO (22:13)
[2018-02-14] MEDS: SENNA 8.6 MG TAB (SENOKOT) PO (22:13)
[2018-02-14] MEDS: DULoxetine 30 MG CAP (CYMBALTA) PO (22:14)
[2018-02-14] MEDS: PREGABALIN 100 MG CAP (LYRICA) PO (22:14)
[2018-02-14] MEDS: ACETAMINOPHEN TAB 650MG DOSE (2X325MG) PO (22:23)
[2018-02-14] MEDS: rOPINIRole 1MG TAB PO (22:50)
[2018-02-14] MEDS: valACYclovir HCL 500 MG TAB PO (22:51)
[2018-02-14] MEDS: QUEtiapine FUMARATE 200 MG TAB PO (22:51)
[2018-02-14] MEDS: SYMBICORT 160/4.5MCG INHALER 6GM INH (22:55)
[2018-02-15] MEDS: NS 1,000 ML IV ×2 (02:35→08:23)
[2018-02-15] MEDS: ACETAMINOPHEN TAB 650MG DOSE (2X325MG) PO (02:41)
[2018-02-15 05:51] LABS: BASO % 0.3 % (0.0-1.0); EOS # 0.1 10^3/uL (0.0-0.50); EOS % 2.2 % (0.0-3.0); HEMATOCRIT 31.1 % (36.0-47.0); IMMATURE GRANULOCYTE % 0.8 % (0-3.0); LYMPH # 1.6 10^3/uL (1.5-4.5); LYMPH % 25.3 % (24.0-44.0); MEAN CORPUSCULAR HEMOGLOBIN 28.6 pg (27.0-33.0); MEAN CORPUSCULAR HGB CONC 34.1 g/dl (32.0-36.5); MEAN CORPUSCULAR VOLUME 84.1 fl (80.0-96.0); MONO # 0.6 10^3/uL (0.0-0.8); MONO % 8.7 % (0.0-5.0); NEUTROPHILS % 62.7 % (36.0-66.0); RED CELL DISTRIBUTION WIDTH 13.9 % (11.5-14.5); WHITE BLOOD COUNT 6.4 10^3/uL (4.0-10.0)
[2018-02-15 05:59] LABS: PROTHROMBIN TIME 53.3 SECONDS (12.4-14.5)
[2018-02-15 06:01] LABS: ANION GAP 6 MEQ/L (8-16); BLOOD UREA NITROGEN 30 MG/DL (7-18); CALCIUM LEVEL 7.8 MG/DL (8.5-10.1); CARBON DIOXIDE LEVEL 23 MEQ/L (21-32); CHLORIDE LEVEL 110 MEQ/L (98-107); CREATININE FOR GFR 1.33 MG/DL (0.55-1.30); GLOMERULAR FILTRATION RATE 45.3 (>58); GLUCOSE, FASTING 295 MG/DL (70-100); MAGNESIUM LEVEL 2.2 MG/DL (1.8-2.4); SODIUM LEVEL 139 MEQ/L (136-145)
[2018-02-15 06:04] LABS: HEMOGLOBIN 10.6 g/dl (12.0-15.5)
[2018-02-15 06:05] LABS: PLATELET COUNT, AUTOMATED 228 10^3/uL (150-450)
[2018-02-15 06:07] LABS: INR 5.52
[2018-02-15] MEDS: SYMBICORT 160/4.5MCG INHALER 6GM INH ×2 (08:07→21:00)
[2018-02-15] MEDS: OMEPRAZOLE 20 MG CAP PO ×2 (08:19→20:27)
[2018-02-15] MEDS: LEVEMIR (INSULIN DETEMIR) 1 UNITS/0.01ML SC ×2 (08:20→20:25)
[2018-02-15] MEDS: DULoxetine 30 MG CAP (CYMBALTA) PO ×2 (08:20→20:27)
[2018-02-15] MEDS: PREGABALIN 100 MG CAP (LYRICA) PO ×2 (08:20→20:27)
[2018-02-15] MEDS: HumaLOG INSULIN (NovoLOG) PER UNIT SC ×4 (08:21→20:26)
[2018-02-15 11:52] LABS: BEDSIDE GLUCOSE 305 MG/DL (70-105)
[2018-02-15] MEDS: NORCO, ANEXSIA 5/325MG TABLET (HYDROcodone/ACETAMINOPHEN) PO ×2 (12:06→18:03)
[2018-02-15 17:17] LABS: BEDSIDE GLUCOSE 347 MG/DL (70-105)
[2018-02-15] MEDS: KCL 20MEQ IN 0.45NS 1000ML 1,000 ML IV (17:39)
[2018-02-15 20:21] LABS: BEDSIDE GLUCOSE 315 MG/DL (70-105)
[2018-02-15] MEDS: rOPINIRole 1MG TAB PO (20:24)
[2018-02-15] MEDS: valACYclovir HCL 500 MG TAB PO (20:25)
[2018-02-15] MEDS: FERROUS SULFATE 325MG TAB PO (20:26)
[2018-02-15] MEDS: FAMOTIDINE 20 MG TAB PO (20:26)
[2018-02-15] MEDS: QUEtiapine FUMARATE 200 MG TAB PO (20:26)
[2018-02-15] MEDS: SERTRALINE 100 MG TAB PO (20:27)
[2018-02-15] MEDS: traZODone 100 MG TAB PO (20:27)
[2018-02-15] MEDS: SENNA 8.6 MG TAB (SENOKOT) PO (20:27)
[2018-02-15] MEDS: MONTELUKAST 10 MG TAB PO (20:27)
[2018-02-15] MEDS: DOCUSATE SODIUM 100 MG CAP PO (20:28)
[2018-02-15] MEDS: RESTASIS 0.05% OU (20:28)
[2018-02-16] MEDS: NORCO, ANEXSIA 5/325MG TABLET (HYDROcodone/ACETAMINOPHEN) PO ×2 (00:59→07:43)
[2018-02-16] MEDS: KCL 20MEQ IN 0.45NS 1000ML 1,000 ML IV (02:16)
[2018-02-16 05:36] LABS: BASO % 0.4 % (0.0-1.0); EOS # 0.2 10^3/uL (0.0-0.50); EOS % 3.8 % (0.0-3.0); HEMOGLOBIN 10.8 g/dl (12.0-15.5); IMMATURE GRANULOCYTE % 0.8 % (0-3.0); LYMPH # 1.8 10^3/uL (1.5-4.5); LYMPH % 34.4 % (24.0-44.0); MEAN CORPUSCULAR HEMOGLOBIN 29.3 pg (27.0-33.0); MEAN CORPUSCULAR HGB CONC 34.8 g/dl (32.0-36.5); MONO # 0.4 10^3/uL (0.0-0.8); MONO % 7.1 % (0.0-5.0); NEUTROPHILS # 2.9 10^3/uL (1.8-7.7); NEUTROPHILS % 53.5 % (36.0-66.0); PLATELET COUNT, AUTOMATED 215 10^3/uL (150-450); RED BLOOD COUNT 3.69 10^6/uL (4.00-5.40); RED CELL DISTRIBUTION WIDTH 13.6 % (11.5-14.5); WHITE BLOOD COUNT 5.3 10^3/uL (4.0-10.0)
[2018-02-16 05:51] LABS: INR 4.22; PROTHROMBIN TIME 42.9 SECONDS (12.4-14.5)
[2018-02-16 05:53] LABS: ANION GAP 5 MEQ/L (8-16); BLOOD UREA NITROGEN 24 MG/DL (7-18); CALCIUM LEVEL 8.3 MG/DL (8.5-10.1); CARBON DIOXIDE LEVEL 23 MEQ/L (21-32); CHLORIDE LEVEL 110 MEQ/L (98-107); CREATININE FOR GFR 0.91 MG/DL (0.55-1.30); GLOMERULAR FILTRATION RATE > 60.0 (>58); GLUCOSE, FASTING 272 MG/DL (70-100); POTASSIUM SERUM 4.3 MEQ/L (3.5-5.1); SODIUM LEVEL 138 MEQ/L (136-145)
[2018-02-16] MEDS: RESTASIS 0.05% OU (07:59)
[2018-02-16] MEDS: DULoxetine 30 MG CAP (CYMBALTA) PO (08:00)
[2018-02-16] MEDS: HumaLOG INSULIN (NovoLOG) PER UNIT SC (08:00)
[2018-02-16] MEDS: PREGABALIN 100 MG CAP (LYRICA) PO (08:00)
[2018-02-16] MEDS: OMEPRAZOLE 20 MG CAP PO (08:00)
[2018-02-16] MEDS: LEVEMIR (INSULIN DETEMIR) 1 UNITS/0.01ML SC (08:00)
[2018-02-16] MEDS: SYMBICORT 160/4.5MCG INHALER 6GM INH (08:16)
== END 2018-02-16 12:25 | disposition home or self-care (01) | DRG 948 ==
LOC: M ED 09:20 → M ED INP 17:05 → M PCU 21:03
DX: R41.82 Altered mental status, unspecified (principal); D68.2 Hereditary deficiency of other clotting factors; N17.9 Acute kidney failure, unspecified; D80.1 Nonfamilial hypogammaglobulinemia; G89.29 Other chronic pain; E11.40 Type 2 diabetes mellitus with diabetic neuropathy, unspecified; E11.21 Type 2 diabetes mellitus with diabetic nephropathy; E11.319 Type 2 diabetes mellitus with unspecified diabetic retinopathy without macular edema; H04.123 Dry eye syndrome of bilateral lacrimal glands; I10 Essential (primary) hypertension; R79.89 Other specified abnormal findings of blood chemistry; Q76.0 Spina bifida occulta; I95.1 Orthostatic hypotension; R33.9 Retention of urine, unspecified; D50.9 Iron deficiency anemia, unspecified; B02.9 Zoster without complications; M79.7 Fibromyalgia; F31.9 Bipolar disorder, unspecified; F42.9 Obsessive-compulsive disorder, unspecified; Z86.718 Personal history of other venous thrombosis and embolism; Z88.0 Allergy status to penicillin; Z88.2 Allergy status to sulfonamides; Z91.040 Latex allergy status; Z88.1 Allergy status to other antibiotic agents; Z88.8 Allergy status to other drugs, medicaments and biological substances; Z91.018 Allergy to other foods; Z79.4 Long term (current) use of insulin; Z79.01 Long term (current) use of anticoagulants; Z79.899 Other long term (current) drug therapy; Z89.512 Acquired absence of left leg below knee; Z90.49 Acquired absence of other specified parts of digestive tract; Z90.710 Acquired absence of both cervix and uterus

== ENCOUNTER → 2018-02-21 | Outpatient (REF) | payer OTHER ==
[2018-02-21 13:51] LABS: INR 1.37; PROTHROMBIN TIME 17.2 SECONDS (12.4-14.5)
== END ==
LOC: M SFHCPLAZ 11:42
DX: Z51.81 Encounter for therapeutic drug level monitoring (principal)

== ENCOUNTER → 2018-02-28 | Outpatient (REF) | payer OTHER ==
[2018-02-28 11:53] LABS: INR 3.76
[2018-02-28 12:00] LABS: ANION GAP 8 MEQ/L (8-16); BLOOD UREA NITROGEN 17 MG/DL (7-18); CALCIUM LEVEL 8.6 MG/DL (8.5-10.1); CARBON DIOXIDE LEVEL 27 MEQ/L (21-32); CHLORIDE LEVEL 104 MEQ/L (98-107); CREATININE FOR GFR 0.99 MG/DL (0.55-1.30); GLOMERULAR FILTRATION RATE > 60.0 (>58); GLUCOSE, FASTING 223 MG/DL (70-100); SODIUM LEVEL 139 MEQ/L (136-145)
== END ==
LOC: M SFHCPLAZ 08:47
DX: N18.3 Chronic kidney disease, stage 3 (moderate) (principal); Z51.81 Encounter for therapeutic drug level monitoring; I82.409 Acute embolism and thrombosis of unspecified deep veins of unspecified lower extremity; Z79.01 Long term (current) use of anticoagulants

== ENCOUNTER 2018-03-20 00:12 | Inpatient (IN) | payer OTHER ==
[2018-03-19 23:32] LABS: BEDSIDE GLUCOSE 549 MG/DL (70-105)
[2018-03-20 00:19] LABS: VENOUS HCO3 17.3 MEQ/L (23.0-27.0); VENOUS O2 SATURATION 98.1 % (60.0-80.0); VENOUS PARTIAL PRESSURE CO2 19.2 mmHg (38.0-50.0); VENOUS PARTIAL PRESSURE O2 174.2 mmHg (30.0-50.0); VENOUS PH 7.573 UNITS (7.330-7.430); VENOUS STANDARD HCO3 22.8 MEQ/L; VENOUS TOTAL CO2 17.9 MEQ/L (24.0-28.0)
[2018-03-20] MEDS: NS 1,000 ML IV ×5 (00:34→22:05)
[2018-03-20 00:36] LABS: LACTIC ACID SEPSIS PROTOCOL 1.8 MMOL/L (0.4-2.0)
[2018-03-20 00:44] LABS: BASO # 0.1 10^3/uL (0.0-0.2); BASO % 0.5 % (0.0-1.0); EOS # 0.1 10^3/uL (0.0-0.50); EOS % 0.3 % (0.0-3.0); HEMATOCRIT 43.1 % (36.0-47.0); HEMOGLOBIN 14.7 g/dl (12.0-15.5); LYMPH # 2.7 10^3/uL (1.5-4.5); LYMPH % 15.4 % (24.0-44.0); MEAN CORPUSCULAR HEMOGLOBIN 29.2 pg (27.0-33.0); MEAN CORPUSCULAR HGB CONC 34.1 g/dl (32.0-36.5); MEAN CORPUSCULAR VOLUME 85.5 fl (80.0-96.0); MONO # 1.3 10^3/uL (0.0-0.8); MONO % 7.3 % (0.0-5.0); NEUTROPHILS # 13.1 10^3/uL (1.8-7.7); NEUTROPHILS % 75.5 % (36.0-66.0); PLATELET COUNT, AUTOMATED 236 10^3/uL (150-450); RED BLOOD COUNT 5.04 10^6/uL (4.00-5.40); RED CELL DISTRIBUTION WIDTH 13.3 % (11.5-14.5); WHITE BLOOD COUNT 17.3 10^3/uL (4.0-10.0)
[2018-03-20 01:59] LABS: ACETONE/KETONE 30.46 MG/DL (<2.81); ALBUMIN/GLOBULIN RATIO 0.71 (1.00-1.93); ALKALINE PHOSPHATASE 110 U/L (45-117); ALT/SGPT 20 U/L (12-78); ANION GAP 18 MEQ/L (8-16); AST/SGOT 16 U/L (7-37); BILIRUBIN,DIRECT 0.3 MG/DL (0.0-0.2); BILIRUBIN,TOTAL 1.3 MG/DL (0.2-1.0); BLOOD UREA NITROGEN 39 MG/DL (7-18); CALCIUM LEVEL 8.7 MG/DL (8.5-10.1); CARBON DIOXIDE LEVEL 17 MEQ/L (21-32); CHLORIDE LEVEL 95 MEQ/L (98-107); CREATININE FOR GFR 1.47 MG/DL (0.55-1.30); GLOMERULAR FILTRATION RATE 40.4 (>58); LIPASE 127 U/L (73-393); POTASSIUM SERUM 4.1 MEQ/L (3.5-5.1); SODIUM LEVEL 130 MEQ/L (136-145); TOTAL PROTEIN 7.2 GM/DL (6.4-8.2)
[2018-03-20 02:02] LABS: VENOUS BASE EXCESS -4.2 (-2.0-2.0); VENOUS HCO3 15.6 MEQ/L (23.0-27.0); VENOUS O2 SATURATION 98.6 % (60.0-80.0); VENOUS PARTIAL PRESSURE CO2 18.2 mmHg (38.0-50.0); VENOUS PARTIAL PRESSURE O2 131.4 mmHg (30.0-50.0); VENOUS STANDARD HCO3 21.1 MEQ/L; VENOUS TOTAL CO2 16.1 MEQ/L (24.0-28.0)
[2018-03-20 02:06] LABS: GLUCOSE, FASTING 496 MG/DL (70-100)
[2018-03-20 02:18] LABS: ESTIMATED AVERAGE GLUCOSE 324 MG/DL (60-110); HEMOGLOBIN A1c 12.9 %
[2018-03-20] MEDS ORDERED: ISOVUE-370 76% 100ML VIAL (Q9967) As Ordered (02:31)
[2018-03-20] MEDS: HumuLIN R (REGULAR) INSULIN (NovoLIN R) **100U/ML** PER UNIT IV (03:00)
[2018-03-20 03:02] LABS: BEDSIDE GLUCOSE 571 MG/DL (70-105)
[2018-03-20] MEDS ORDERED: INSULIN HUMAN REGULAR 100 UNITS in NS 99 ML IV (03:25)
[2018-03-20] MEDS ORDERED: INSULIN IV RATE CHANGE DOCUMENTATION ML/HR XX (03:30)
[2018-03-20 03:58] LABS: BEDSIDE GLUCOSE 451 MG/DL (70-105)
[2018-03-20] MEDS: IMIPENEM/CILASTATIN 500 MG in D5W MINI-BAG PLUS 100 ML IV (04:00)
[2018-03-20] MEDS ORDERED: PERCOCET 5MG/325MG TAB PO (04:30)
[2018-03-20] MEDS ORDERED: LIDOCAINE 1% MDV 20ML VIAL As Ordered ×2 (04:48→10:53)
[2018-03-20] MEDS ORDERED: CIPROFLOXACIN 400 MG in APPROPRIATE DILUENT 1 EA IV (05:00)
[2018-03-20] MEDS: INSULIN HUMAN REGULAR 100 UNITS in NS 99 ML IV (05:12)
[2018-03-20] MEDS ORDERED: zolPIDEM TARTRATE 10MG TAB PO (05:15)
[2018-03-20] MEDS ORDERED: CYCLOBENZAPRINE 10 MG TAB PO (05:15)
[2018-03-20] MEDS: PERCOCET 5MG/325MG TAB PO ×3 (05:25→19:10)
[2018-03-20 05:36] LABS: BEDSIDE GLUCOSE 468 MG/DL (70-105)
[2018-03-20 05:50] LABS: ANION GAP 16 MEQ/L (8-16); BLOOD UREA NITROGEN 39 MG/DL (7-18); CALCIUM LEVEL 8.7 MG/DL (8.5-10.1); CARBON DIOXIDE LEVEL 17 MEQ/L (21-32); CHLORIDE LEVEL 98 MEQ/L (98-107); CREATININE FOR GFR 1.31 MG/DL (0.55-1.30); GLOMERULAR FILTRATION RATE 46.1 (>58); POTASSIUM SERUM 3.5 MEQ/L (3.5-5.1); SODIUM LEVEL 131 MEQ/L (136-145)
[2018-03-20 05:57] LABS: BEDSIDE GLUCOSE 492 MG/DL (70-105)
[2018-03-20 06:00] LABS: GLUCOSE, FASTING 487 MG/DL (70-100)
[2018-03-20] MEDS ORDERED: metroNIDAZOLE 500 MG in APPROPRIATE DILUENT 1 EA IV (06:00)
[2018-03-20 06:41] LABS: OSMOLALITY SERUM 309 MOSM/KG (275-295)
[2018-03-20 06:53] LABS: BEDSIDE GLUCOSE 483 MG/DL (70-105)
[2018-03-20 07:56] LABS: BEDSIDE GLUCOSE 478 MG/DL (70-105)
[2018-03-20 08:03] LABS: ANION GAP 15 MEQ/L (8-16); BLOOD UREA NITROGEN 38 MG/DL (7-18); CALCIUM LEVEL 8.5 MG/DL (8.5-10.1); CARBON DIOXIDE LEVEL 21 MEQ/L (21-32); CHLORIDE LEVEL 95 MEQ/L (98-107); CREATININE FOR GFR 1.71 MG/DL (0.55-1.30); GLOMERULAR FILTRATION RATE 33.9 (>58); POTASSIUM SERUM 3.6 MEQ/L (3.5-5.1); SODIUM LEVEL 131 MEQ/L (136-145)
[2018-03-20 08:12] LABS: GLUCOSE, FASTING 447 MG/DL (70-100)
[2018-03-20 08:58] LABS: INR 1.37; PROTHROMBIN TIME 17.2 SECONDS (12.4-14.5)
[2018-03-20 08:59] LABS: BEDSIDE GLUCOSE 436 MG/DL (70-105)
[2018-03-20] MEDS: ENOXAPARIN 40 MG/0.4 ML SYRINGE (J1650) SC (09:11)
[2018-03-20 10:00] LABS: BEDSIDE GLUCOSE 398 MG/DL (70-105)
[2018-03-20] MEDS ORDERED: IMIPENEM/CILASTATIN 250 MG in D5W MINI-BAG PLUS 100 ML IV (10:00)
[2018-03-20 10:03] LABS: ANION GAP 14 MEQ/L (8-16); BLOOD UREA NITROGEN 41 MG/DL (7-18); CALCIUM LEVEL 8.7 MG/DL (8.5-10.1); CARBON DIOXIDE LEVEL 20 MEQ/L (21-32); CHLORIDE LEVEL 95 MEQ/L (98-107); CREATININE FOR GFR 1.51 MG/DL (0.55-1.30); GLOMERULAR FILTRATION RATE 39.2 (>58); GLUCOSE, FASTING 387 MG/DL (70-100); POTASSIUM SERUM 3.3 MEQ/L (3.5-5.1); SODIUM LEVEL 129 MEQ/L (136-145)
[2018-03-20] MEDS ORDERED: GLUCAGON FOR INJ 1 MG VIAL (J1610) SC (11:00)
[2018-03-20] MEDS ORDERED: GLUCOSE 4 GM CHEW TABLET PO (11:00)
[2018-03-20] MEDS ORDERED: DEXTROSE 50% 50 ML SYRINGE IV (11:00)
[2018-03-20] MEDS ORDERED: ALBUTEROL SULFATE 2.5 MG/0.5 ML INH NEB SOLN NEB (11:00)
[2018-03-20 11:39] LABS: BEDSIDE GLUCOSE 481 MG/DL (70-105)
[2018-03-20] MEDS: LIDOCAINE 1% MDV 20ML VIAL SC (12:00)
[2018-03-20] MEDS: CIPROFLOXACIN 400 MG in APPROPRIATE DILUENT 1 EA IV ×2 (12:13→22:05)
[2018-03-20] MEDS: metroNIDAZOLE 500 MG in APPROPRIATE DILUENT 1 EA IV ×2 (12:13→19:09)
[2018-03-20] MEDS: LEVEMIR (INSULIN DETEMIR) 1 UNITS/0.01ML SC ×2 (12:14→20:40)
[2018-03-20] MEDS: HumaLOG INSULIN (NovoLOG) PER UNIT SC ×4 (12:15→23:31)
[2018-03-20] MEDS: ROSUVASTATIN 10 MG TAB (CRESTOR) PO (12:15)
[2018-03-20] MEDS: PREGABALIN 100 MG CAP (LYRICA) PO ×2 (12:16→20:37)
[2018-03-20] MEDS: DULoxetine 30 MG CAP (CYMBALTA) PO ×2 (12:17→20:37)
[2018-03-20] MEDS: SERTRALINE 100 MG TAB PO (12:17)
[2018-03-20] MEDS: valACYclovir HCL 500 MG TAB PO ×2 (12:17→20:37)
[2018-03-20 12:42] LABS: ANION GAP 13 MEQ/L (8-16); BLOOD UREA NITROGEN 45 MG/DL (7-18); CALCIUM LEVEL 8.4 MG/DL (8.5-10.1); CARBON DIOXIDE LEVEL 22 MEQ/L (21-32); CHLORIDE LEVEL 96 MEQ/L (98-107); CREATININE FOR GFR 1.41 MG/DL (0.55-1.30); GLOMERULAR FILTRATION RATE 42.4 (>58); POTASSIUM SERUM 3.4 MEQ/L (3.5-5.1); SODIUM LEVEL 131 MEQ/L (136-145)
[2018-03-20 12:51] LABS: GLUCOSE, FASTING 492 MG/DL (70-100)
[2018-03-20 15:39] LABS: BEDSIDE GLUCOSE 486 MG/DL (70-105)
[2018-03-20] MEDS ORDERED: WARFARIN SOD 2 MG TAB PO (17:00)
[2018-03-20 19:45] LABS: BEDSIDE GLUCOSE 464 MG/DL (70-105)
[2018-03-20] MEDS: traZODone 100 MG TAB PO (20:37)
[2018-03-20] MEDS: FERROUS SULFATE 325MG TAB PO (20:38)
[2018-03-20] MEDS: SENNA 8.6 MG TAB (SENOKOT) PO (20:38)
[2018-03-20] MEDS: FAMOTIDINE 20 MG TAB PO (20:38)
[2018-03-20] MEDS: SODIUM CHLORIDE 0.9% INJ 10 ML SYR IV (22:05)
[2018-03-21] MEDS: PERCOCET 5MG/325MG TAB PO ×4 (01:54→21:02)
[2018-03-21 03:49] LABS: BEDSIDE GLUCOSE 274 MG/DL (70-105)
[2018-03-21] MEDS: metroNIDAZOLE 500 MG in APPROPRIATE DILUENT 1 EA IV ×3 (03:51→20:47)
[2018-03-21] MEDS: HumaLOG INSULIN (NovoLOG) PER UNIT SC ×5 (03:51→20:47)
[2018-03-21 04:15] LABS: HEMATOCRIT 31.4 % (36.0-47.0); MEAN CORPUSCULAR HGB CONC 35.4 g/dl (32.0-36.5); PLATELET COUNT, AUTOMATED 207 10^3/uL (150-450); RED BLOOD COUNT 3.83 10^6/uL (4.00-5.40); RED CELL DISTRIBUTION WIDTH 13.2 % (11.5-14.5); WHITE BLOOD COUNT 9.9 10^3/uL (4.0-10.0)
[2018-03-21 04:27] LABS: HEMOGLOBIN 11.1 g/dl (12.0-15.5)
[2018-03-21 04:29] LABS: INR 1.38; PROTHROMBIN TIME 17.2 SECONDS (12.4-14.5)
[2018-03-21] MEDS: SODIUM CHLORIDE 0.9% INJ 10 ML SYR IV ×2 (05:31→13:09)
[2018-03-21 07:50] LABS: BEDSIDE GLUCOSE 336 MG/DL (70-105)
[2018-03-21] MEDS: NS 1,000 ML IV (08:04)
[2018-03-21] MEDS: LEVEMIR (INSULIN DETEMIR) 1 UNITS/0.01ML SC ×3 (08:05→20:47)
[2018-03-21] MEDS: valACYclovir HCL 500 MG TAB PO ×2 (08:06→20:49)
[2018-03-21] MEDS: DULoxetine 30 MG CAP (CYMBALTA) PO ×2 (08:07→20:49)
[2018-03-21] MEDS: ENOXAPARIN 30 MG/0.3 ML SYR (J1650) SC (08:07)
[2018-03-21] MEDS: ROSUVASTATIN 10 MG TAB (CRESTOR) PO (08:07)
[2018-03-21] MEDS: PREGABALIN 100 MG CAP (LYRICA) PO ×2 (08:07→20:48)
[2018-03-21] MEDS: SERTRALINE 100 MG TAB PO (08:07)
[2018-03-21] MEDS ORDERED: LEVEMIR (INSULIN DETEMIR) 1 UNITS/0.01ML As Ordered (08:32)
[2018-03-21] MEDS: CIPROFLOXACIN 400 MG in APPROPRIATE DILUENT 1 EA IV ×2 (10:08→22:13)
[2018-03-21 11:42] LABS: BEDSIDE GLUCOSE 373 MG/DL (70-105)
[2018-03-21] MEDS: CARVedilol 12.5 MG TAB PO ×2 (13:08→20:49)
[2018-03-21] MEDS: amLODIPine 5 MG TAB PO (13:08)
[2018-03-21 15:40] LABS: BEDSIDE GLUCOSE 305 MG/DL (70-105)
[2018-03-21 20:12] LABS: BEDSIDE GLUCOSE 349 MG/DL (70-105)
[2018-03-21] MEDS: QUEtiapine FUMARATE 200 MG TAB PO (20:48)
[2018-03-21] MEDS: rOPINIRole 1MG TAB PO (20:48)
[2018-03-21] MEDS: MONTELUKAST 10 MG TAB PO (20:49)
[2018-03-21] MEDS: DOCUSATE SODIUM 100 MG CAP PO (20:49)
[2018-03-21] MEDS: FERROUS SULFATE 325MG TAB PO (20:49)
[2018-03-21] MEDS: traZODone 100 MG TAB PO (20:49)
[2018-03-21] MEDS: FAMOTIDINE 20 MG TAB PO (20:49)
[2018-03-21] MEDS: SENNA 8.6 MG TAB (SENOKOT) PO (20:50)
[2018-03-22 00:08] LABS: BEDSIDE GLUCOSE 396 MG/DL (70-105)
[2018-03-22] MEDS: SODIUM CHLORIDE 0.9% INJ 10 ML SYR IV ×4 (00:13→22:00)
[2018-03-22] MEDS: HumaLOG INSULIN (NovoLOG) PER UNIT SC ×6 (00:13→21:04)
[2018-03-22 04:07] LABS: BEDSIDE GLUCOSE 257 MG/DL (70-105)
[2018-03-22] MEDS: metroNIDAZOLE 500 MG in APPROPRIATE DILUENT 1 EA IV ×3 (04:15→20:22)
[2018-03-22 06:12] LABS: HEMATOCRIT 28.3 % (36.0-47.0); MEAN CORPUSCULAR HEMOGLOBIN 29.4 pg (27.0-33.0); MEAN CORPUSCULAR HGB CONC 35.3 g/dl (32.0-36.5); MEAN CORPUSCULAR VOLUME 83.2 fl (80.0-96.0); PLATELET COUNT, AUTOMATED 203 10^3/uL (150-450); RED CELL DISTRIBUTION WIDTH 13.2 % (11.5-14.5); WHITE BLOOD COUNT 6.9 10^3/uL (4.0-10.0)
[2018-03-22 06:23] LABS: INR 1.29; PROTHROMBIN TIME 16.4 SECONDS (12.4-14.5)
[2018-03-22 08:22] LABS: BEDSIDE GLUCOSE 273 MG/DL (70-105)
[2018-03-22] MEDS: LEVEMIR (INSULIN DETEMIR) 1 UNITS/0.01ML SC ×2 (09:00→21:04)
[2018-03-22] MEDS: ENOXAPARIN 30 MG/0.3 ML SYR (J1650) SC (09:00)
[2018-03-22] MEDS: valACYclovir HCL 500 MG TAB PO ×2 (09:00→20:23)
[2018-03-22] MEDS: SERTRALINE 100 MG TAB PO (09:01)
[2018-03-22] MEDS: PREGABALIN 100 MG CAP (LYRICA) PO ×2 (09:01→20:23)
[2018-03-22] MEDS: ROSUVASTATIN 10 MG TAB (CRESTOR) PO (09:01)
[2018-03-22] MEDS: DULoxetine 30 MG CAP (CYMBALTA) PO ×2 (09:01→20:23)
[2018-03-22] MEDS: CARVedilol 12.5 MG TAB PO ×2 (09:02→20:26)
[2018-03-22] MEDS: amLODIPine 5 MG TAB PO (09:02)
[2018-03-22] MEDS: PERCOCET 5MG/325MG TAB PO ×2 (09:10→17:43)
[2018-03-22] MEDS: CIPROFLOXACIN 400 MG in APPROPRIATE DILUENT 1 EA IV (11:05)
[2018-03-22] MEDS ORDERED: GLUCAGON FOR INJ 1 MG VIAL (J1610) SC (11:45)
[2018-03-22] MEDS ORDERED: DEXTROSE 50% 50 ML SYRINGE IV (11:45)
[2018-03-22] MEDS ORDERED: GLUCOSE 4 GM CHEW TABLET PO (11:45)
[2018-03-22 11:47] LABS: BEDSIDE GLUCOSE 325 MG/DL (70-105)
[2018-03-22 11:50] LABS: ANION GAP 7 MEQ/L (8-16); BLOOD UREA NITROGEN 35 MG/DL (7-18); CALCIUM LEVEL 7.6 MG/DL (8.5-10.1); CARBON DIOXIDE LEVEL 25 MEQ/L (21-32); CHLORIDE LEVEL 107 MEQ/L (98-107); CREATININE FOR GFR 1.46 MG/DL (0.55-1.30); GLOMERULAR FILTRATION RATE 40.7 (>58); GLUCOSE, FASTING 316 MG/DL (70-100); POTASSIUM SERUM 3.6 MEQ/L (3.5-5.1); SODIUM LEVEL 139 MEQ/L (136-145)
[2018-03-22 17:02] LABS: BEDSIDE GLUCOSE 383 MG/DL (70-105)
[2018-03-22] MEDS: GOLYTELY SOLN 4000 ML BTL PO (17:41)
[2018-03-22] MEDS: QUEtiapine FUMARATE 200 MG TAB PO (20:23)
[2018-03-22] MEDS: DOCUSATE SODIUM 100 MG CAP PO (20:23)
[2018-03-22] MEDS: rOPINIRole 1MG TAB PO (20:23)
[2018-03-22] MEDS: SENNA 8.6 MG TAB (SENOKOT) PO (20:24)
[2018-03-22] MEDS: traZODone 100 MG TAB PO (20:26)
[2018-03-22] MEDS: MONTELUKAST 10 MG TAB PO (20:26)
[2018-03-22] MEDS: FAMOTIDINE 20 MG TAB PO (20:26)
[2018-03-22] MEDS: FERROUS SULFATE 325MG TAB PO (20:26)
[2018-03-22 20:58] LABS: BEDSIDE GLUCOSE 427 MG/DL (70-105)
[2018-03-23] MEDS: metroNIDAZOLE 500 MG in APPROPRIATE DILUENT 1 EA IV ×3 (04:34→19:42)
[2018-03-23] MEDS: GOLYTELY SOLN 4000 ML BTL PO (05:15)
[2018-03-23] MEDS: PERCOCET 5MG/325MG TAB PO ×3 (05:57→20:25)
[2018-03-23] MEDS: SODIUM CHLORIDE 0.9% INJ 10 ML SYR IV ×3 (05:58→20:27)
[2018-03-23 06:00] LABS: HEMATOCRIT 28.2 % (36.0-47.0); HEMOGLOBIN 9.9 g/dl (12.0-15.5); MEAN CORPUSCULAR HEMOGLOBIN 29.1 pg (27.0-33.0); MEAN CORPUSCULAR HGB CONC 35.1 g/dl (32.0-36.5); MEAN CORPUSCULAR VOLUME 82.9 fl (80.0-96.0); PLATELET COUNT, AUTOMATED 161 10^3/uL (150-450); RED CELL DISTRIBUTION WIDTH 12.8 % (11.5-14.5); WHITE BLOOD COUNT 8.2 10^3/uL (4.0-10.0)
[2018-03-23 06:20] LABS: INR 1.21; PROTHROMBIN TIME 15.5 SECONDS (12.4-14.5)
[2018-03-23 06:29] LABS: ANION GAP 8 MEQ/L (8-16); BLOOD UREA NITROGEN 25 MG/DL (7-18); CARBON DIOXIDE LEVEL 26 MEQ/L (21-32); CHLORIDE LEVEL 106 MEQ/L (98-107); CREATININE FOR GFR 1.17 MG/DL (0.55-1.30); GLOMERULAR FILTRATION RATE 52.6 (>58); GLUCOSE, FASTING 369 MG/DL (70-100); POTASSIUM SERUM 3.5 MEQ/L (3.5-5.1); SODIUM LEVEL 140 MEQ/L (136-145)
[2018-03-23] MEDS: HumaLOG INSULIN (NovoLOG) PER UNIT SC ×4 (08:15→20:22)
[2018-03-23] MEDS: valACYclovir HCL 500 MG TAB PO ×2 (08:16→20:24)
[2018-03-23] MEDS: SERTRALINE 100 MG TAB PO (08:16)
[2018-03-23] MEDS: LEVEMIR (INSULIN DETEMIR) 1 UNITS/0.01ML SC ×2 (08:16→20:26)
[2018-03-23] MEDS: ENOXAPARIN 30 MG/0.3 ML SYR (J1650) SC (08:16)
[2018-03-23] MEDS: ROSUVASTATIN 10 MG TAB (CRESTOR) PO (08:17)
[2018-03-23] MEDS: DULoxetine 30 MG CAP (CYMBALTA) PO ×2 (08:17→20:25)
[2018-03-23] MEDS: PREGABALIN 100 MG CAP (LYRICA) PO ×2 (08:17→20:26)
[2018-03-23] MEDS: amLODIPine 5 MG TAB PO (08:18)
[2018-03-23] MEDS: CARVedilol 12.5 MG TAB PO ×2 (08:19→20:25)
[2018-03-23 12:27] LABS: BEDSIDE GLUCOSE 312 MG/DL (70-105)
[2018-03-23] MEDS ORDERED: PROPOFOL 200 MG/20 ML VIAL As Ordered (14:33)
[2018-03-23 16:49] LABS: BEDSIDE GLUCOSE 164 MG/DL (70-105)
[2018-03-23 20:15] LABS: BEDSIDE GLUCOSE 219 MG/DL (70-105)
[2018-03-23] MEDS: DOCUSATE SODIUM 100 MG CAP PO (20:22)
[2018-03-23] MEDS: SENNA 8.6 MG TAB (SENOKOT) PO (20:22)
[2018-03-23] MEDS: QUEtiapine FUMARATE 200 MG TAB PO (20:23)
[2018-03-23] MEDS: traZODone 100 MG TAB PO (20:24)
[2018-03-23] MEDS: MONTELUKAST 10 MG TAB PO (20:25)
[2018-03-23] MEDS: FAMOTIDINE 20 MG TAB PO (20:25)
[2018-03-23] MEDS: FERROUS SULFATE 325MG TAB PO (20:26)
[2018-03-23] MEDS: rOPINIRole 1MG TAB PO (20:26)
[2018-03-24] MEDS: metroNIDAZOLE 500 MG in APPROPRIATE DILUENT 1 EA IV ×3 (03:41→21:13)
[2018-03-24] MEDS: PERCOCET 5MG/325MG TAB PO ×3 (04:26→17:54)
[2018-03-24] MEDS: SODIUM CHLORIDE 0.9% INJ 10 ML SYR IV ×3 (05:33→21:51)
[2018-03-24 05:44] LABS: HEMATOCRIT 26.7 % (36.0-47.0); HEMOGLOBIN 9.1 g/dl (12.0-15.5); MEAN CORPUSCULAR HEMOGLOBIN 28.6 pg (27.0-33.0); MEAN CORPUSCULAR HGB CONC 34.1 g/dl (32.0-36.5); PLATELET COUNT, AUTOMATED 165 10^3/uL (150-450); RED BLOOD COUNT 3.18 10^6/uL (4.00-5.40); RED CELL DISTRIBUTION WIDTH 13.1 % (11.5-14.5); WHITE BLOOD COUNT 6.9 10^3/uL (4.0-10.0)
[2018-03-24 05:58] LABS: INR 1.14; PROTHROMBIN TIME 14.8 SECONDS (12.4-14.5)
[2018-03-24 06:07] LABS: ANION GAP 8 MEQ/L (8-16); BLOOD UREA NITROGEN 15 MG/DL (7-18); CALCIUM LEVEL 7.8 MG/DL (8.5-10.1); CARBON DIOXIDE LEVEL 27 MEQ/L (21-32); CHLORIDE LEVEL 109 MEQ/L (98-107); CREATININE FOR GFR 0.92 MG/DL (0.55-1.30); GLOMERULAR FILTRATION RATE > 60.0 (>58); GLUCOSE, FASTING 227 MG/DL (70-100); SODIUM LEVEL 144 MEQ/L (136-145)
[2018-03-24] MEDS: valACYclovir HCL 500 MG TAB PO ×2 (07:48→21:19)
[2018-03-24] MEDS: CARVedilol 12.5 MG TAB PO ×2 (07:49→21:17)
[2018-03-24] MEDS: ROSUVASTATIN 10 MG TAB (CRESTOR) PO (07:49)
[2018-03-24] MEDS: SERTRALINE 100 MG TAB PO (07:49)
[2018-03-24] MEDS: DULoxetine 30 MG CAP (CYMBALTA) PO ×2 (07:49→21:17)
[2018-03-24] MEDS: PREGABALIN 100 MG CAP (LYRICA) PO ×2 (07:49→21:18)
[2018-03-24] MEDS: ENOXAPARIN 30 MG/0.3 ML SYR (J1650) SC (07:50)
[2018-03-24] MEDS: HumaLOG INSULIN (NovoLOG) PER UNIT SC ×4 (07:50→21:20)
[2018-03-24] MEDS: amLODIPine 5 MG TAB PO (07:50)
[2018-03-24] MEDS: LEVEMIR (INSULIN DETEMIR) 1 UNITS/0.01ML SC ×2 (07:51→21:20)
[2018-03-24] MEDS: POTASSIUM CHLORIDE 10 MEQ SR TABLET PO ×2 (10:52→21:18)
[2018-03-24] MEDS: KCL 10MEQ/100ML SWI (KRUN) 10 MEQ in APPROPRIATE DILUENT 1 EA IV ×2 (10:54→12:38)
[2018-03-24 11:44] LABS: BEDSIDE GLUCOSE 204 MG/DL (70-105)
[2018-03-24 14:21] LABS: MAGNESIUM LEVEL 1.8 MG/DL (1.8-2.4)
[2018-03-24 17:32] LABS: BEDSIDE GLUCOSE 222 MG/DL (70-105)
[2018-03-24 19:20] LABS: APPEARANCE, URINE CLEAR (CLEAR); BACTERIA, URINE AUTO NEGATIVE (NEGATIVE); BILIRUBIN, URINE AUTO NEGATIVE (NEGATIVE); BLOOD, URINE BLOOD 1+ (NEGATIVE); COLOR, URINE YELLOW (YELLOW); GLUCOSE, URINE (UA) AUTO 3+ mg/dL (NEGATIVE); KETONE, URINE AUTO NEGATIVE (NEGATIVE); LEUKOCYTE ESTERASE, URINE AUTO TRACE (NEGATIVE); NITRITE, URINE AUTO NEGATIVE (NEGATIVE); PROTEIN, URINE AUTO 2+ mg/dL (NEGATIVE); RBC, URINE AUTO 3 /HPF (0-3); SPECIFIC GRAVITY URINE AUTO 1.016 (1.002-1.035); SQUAMOUS EPITHELIAL CELL UR AU 0 /HPF (0-6); UROBILINOGEN, URINE AUTO 0.2 mg/dL (0.0-2.0); WBC, URINE AUTO 1 /HPF (0-3)
[2018-03-24] MEDS: DOCUSATE SODIUM 100 MG CAP PO (20:07)
[2018-03-24] MEDS: SENNA 8.6 MG TAB (SENOKOT) PO (20:09)
[2018-03-24 20:18] LABS: BEDSIDE GLUCOSE 267 MG/DL (70-105)
[2018-03-24] MEDS: FERROUS SULFATE 325MG TAB PO (21:17)
[2018-03-24] MEDS: traZODone 100 MG TAB PO (21:17)
[2018-03-24] MEDS: FAMOTIDINE 20 MG TAB PO (21:18)
[2018-03-24] MEDS: rOPINIRole 1MG TAB PO (21:19)
[2018-03-24] MEDS: MONTELUKAST 10 MG TAB PO (21:19)
[2018-03-24] MEDS: OMEPRAZOLE 20 MG CAP PO (21:19)
[2018-03-24] MEDS: QUEtiapine FUMARATE 200 MG TAB PO (21:19)
[2018-03-25] MEDS: metroNIDAZOLE 500 MG in APPROPRIATE DILUENT 1 EA IV ×3 (05:00→20:55)
[2018-03-25] MEDS: SODIUM CHLORIDE 0.9% INJ 10 ML SYR IV ×3 (05:01→21:19)
[2018-03-25 05:12] LABS: HEMATOCRIT 27.6 % (36.0-47.0); HEMOGLOBIN 9.6 g/dl (12.0-15.5); MEAN CORPUSCULAR HEMOGLOBIN 29.2 pg (27.0-33.0); MEAN CORPUSCULAR HGB CONC 34.8 g/dl (32.0-36.5); MEAN CORPUSCULAR VOLUME 83.9 fl (80.0-96.0); PLATELET COUNT, AUTOMATED 163 10^3/uL (150-450); RED BLOOD COUNT 3.29 10^6/uL (4.00-5.40); RED CELL DISTRIBUTION WIDTH 13.1 % (11.5-14.5); WHITE BLOOD COUNT 5.3 10^3/uL (4.0-10.0)
[2018-03-25 05:24] LABS: PROTHROMBIN TIME 15.4 SECONDS (12.4-14.5)
[2018-03-25 05:43] LABS: ANION GAP 6 MEQ/L (8-16); BLOOD UREA NITROGEN 10 MG/DL (7-18); CALCIUM LEVEL 7.8 MG/DL (8.5-10.1); CARBON DIOXIDE LEVEL 27 MEQ/L (21-32); CHLORIDE LEVEL 111 MEQ/L (98-107); CREATININE FOR GFR 0.83 MG/DL (0.55-1.30); GLOMERULAR FILTRATION RATE > 60.0 (>58); GLUCOSE, FASTING 235 MG/DL (70-100); MAGNESIUM LEVEL 1.7 MG/DL (1.8-2.4); POTASSIUM SERUM 3.7 MEQ/L (3.5-5.1); SODIUM LEVEL 144 MEQ/L (136-145)
[2018-03-25] MEDS: PERCOCET 5MG/325MG TAB PO ×3 (06:05→18:34)
[2018-03-25] MEDS: OMEPRAZOLE 20 MG CAP PO ×2 (07:50→21:01)
[2018-03-25] MEDS: ENOXAPARIN 30 MG/0.3 ML SYR (J1650) SC (07:50)
[2018-03-25] MEDS: PREGABALIN 100 MG CAP (LYRICA) PO ×2 (07:50→21:00)
[2018-03-25] MEDS: amLODIPine 5 MG TAB PO (07:51)
[2018-03-25] MEDS: POTASSIUM CHLORIDE 10 MEQ SR TABLET PO ×2 (07:51→21:01)
[2018-03-25] MEDS: SERTRALINE 100 MG TAB PO (07:51)
[2018-03-25] MEDS: valACYclovir HCL 500 MG TAB PO ×2 (07:51→21:01)
[2018-03-25] MEDS: DULoxetine 30 MG CAP (CYMBALTA) PO ×2 (07:51→21:00)
[2018-03-25] MEDS: ROSUVASTATIN 10 MG TAB (CRESTOR) PO (07:51)
[2018-03-25] MEDS: CARVedilol 12.5 MG TAB PO ×2 (07:51→20:59)
[2018-03-25] MEDS: HumaLOG INSULIN (NovoLOG) PER UNIT SC ×4 (07:52→21:01)
[2018-03-25] MEDS: LEVEMIR (INSULIN DETEMIR) 1 UNITS/0.01ML SC ×2 (07:53→21:02)
[2018-03-25 11:42] LABS: BEDSIDE GLUCOSE 175 MG/DL (70-105)
[2018-03-25 16:25] LABS: BEDSIDE GLUCOSE 98 MG/DL (70-105)
[2018-03-25 20:18] LABS: BEDSIDE GLUCOSE 171 MG/DL (70-105)
[2018-03-25] MEDS: DOCUSATE SODIUM 100 MG CAP PO (20:24)
[2018-03-25] MEDS: SENNA 8.6 MG TAB (SENOKOT) PO (20:24)
[2018-03-25] MEDS: FERROUS SULFATE 325MG TAB PO (21:00)
[2018-03-25] MEDS: traZODone 100 MG TAB PO (21:00)
[2018-03-25] MEDS: rOPINIRole 1MG TAB PO (21:01)
[2018-03-25] MEDS: FAMOTIDINE 20 MG TAB PO (21:01)
[2018-03-25] MEDS: QUEtiapine FUMARATE 200 MG TAB PO (21:01)
[2018-03-25] MEDS: MONTELUKAST 10 MG TAB PO (21:01)
[2018-03-26] MEDS: metroNIDAZOLE 500 MG in APPROPRIATE DILUENT 1 EA IV ×3 (03:32→21:16)
[2018-03-26] MEDS: SODIUM CHLORIDE 0.9% INJ 10 ML SYR IV ×3 (05:02→22:12)
[2018-03-26] MEDS: PERCOCET 5MG/325MG TAB PO ×4 (05:25→21:17)
[2018-03-26 05:39] LABS: HEMATOCRIT 27.7 % (36.0-47.0); HEMOGLOBIN 9.4 g/dl (12.0-15.5); MEAN CORPUSCULAR HEMOGLOBIN 28.6 pg (27.0-33.0); MEAN CORPUSCULAR HGB CONC 33.9 g/dl (32.0-36.5); MEAN CORPUSCULAR VOLUME 84.2 fl (80.0-96.0); PLATELET COUNT, AUTOMATED 165 10^3/uL (150-450); RED BLOOD COUNT 3.29 10^6/uL (4.00-5.40); RED CELL DISTRIBUTION WIDTH 13.2 % (11.5-14.5); WHITE BLOOD COUNT 5.2 10^3/uL (4.0-10.0)
[2018-03-26 05:58] LABS: INR 1.19; PROTHROMBIN TIME 15.3 SECONDS (12.4-14.5)
[2018-03-26 06:03] LABS: BLOOD UREA NITROGEN 9 MG/DL (7-18); CARBON DIOXIDE LEVEL 27 MEQ/L (21-32); CHLORIDE LEVEL 113 MEQ/L (98-107); CREATININE FOR GFR 0.78 MG/DL (0.55-1.30); GLOMERULAR FILTRATION RATE > 60.0 (>58); GLUCOSE, FASTING 114 MG/DL (70-100); POTASSIUM SERUM 3.8 MEQ/L (3.5-5.1); SODIUM LEVEL 145 MEQ/L (136-145)
[2018-03-26 06:04] LABS: ANION GAP 5 MEQ/L (8-16); CALCIUM LEVEL 7.8 MG/DL (8.5-10.1)
[2018-03-26] MEDS: HumaLOG INSULIN (NovoLOG) PER UNIT SC ×4 (07:30→22:11)
[2018-03-26] MEDS: amLODIPine 5 MG TAB PO (07:51)
[2018-03-26] MEDS: SERTRALINE 100 MG TAB PO (07:51)
[2018-03-26] MEDS: CARVedilol 12.5 MG TAB PO ×2 (07:51→22:13)
[2018-03-26] MEDS: OMEPRAZOLE 20 MG CAP PO ×2 (07:52→22:15)
[2018-03-26] MEDS: POTASSIUM CHLORIDE 10 MEQ SR TABLET PO ×2 (07:52→22:14)
[2018-03-26] MEDS: ENOXAPARIN 30 MG/0.3 ML SYR (J1650) SC (07:52)
[2018-03-26] MEDS: PREGABALIN 100 MG CAP (LYRICA) PO ×2 (07:52→22:12)
[2018-03-26] MEDS: ROSUVASTATIN 10 MG TAB (CRESTOR) PO (07:52)
[2018-03-26] MEDS: valACYclovir HCL 500 MG TAB PO ×2 (07:52→22:15)
[2018-03-26] MEDS: DULoxetine 30 MG CAP (CYMBALTA) PO ×2 (07:52→22:14)
[2018-03-26] MEDS: LEVEMIR (INSULIN DETEMIR) 1 UNITS/0.01ML SC ×2 (07:53→22:12)
[2018-03-26 12:00] LABS: BEDSIDE GLUCOSE 185 MG/DL (70-105)
[2018-03-26 16:38] LABS: BEDSIDE GLUCOSE 114 MG/DL (70-105)
[2018-03-26 19:49] LABS: BEDSIDE GLUCOSE 258 MG/DL (70-105)
[2018-03-26 20:41] LABS: BEDSIDE GLUCOSE 312 MG/DL (70-105)
[2018-03-26] MEDS: QUEtiapine FUMARATE 200 MG TAB PO (22:13)
[2018-03-26] MEDS: DOCUSATE SODIUM 100 MG CAP PO (22:13)
[2018-03-26] MEDS: FERROUS SULFATE 325MG TAB PO (22:14)
[2018-03-26] MEDS: traZODone 100 MG TAB PO (22:14)
[2018-03-26] MEDS: FAMOTIDINE 20 MG TAB PO (22:15)
[2018-03-26] MEDS: MONTELUKAST 10 MG TAB PO (22:15)
[2018-03-26] MEDS: SENNA 8.6 MG TAB (SENOKOT) PO (22:15)
[2018-03-26] MEDS: rOPINIRole 1MG TAB PO (22:15)
[2018-03-27] MEDS: metroNIDAZOLE 500 MG in APPROPRIATE DILUENT 1 EA IV ×3 (04:02→20:28)
[2018-03-27] MEDS: SODIUM CHLORIDE 0.9% INJ 10 ML SYR IV ×4 (05:15→21:52)
[2018-03-27 05:40] LABS: HEMATOCRIT 25.4 % (36.0-47.0); HEMOGLOBIN 8.6 g/dl (12.0-15.5); MEAN CORPUSCULAR HGB CONC 33.9 g/dl (32.0-36.5); MEAN CORPUSCULAR VOLUME 85.5 fl (80.0-96.0); PLATELET COUNT, AUTOMATED 158 10^3/uL (150-450); RED BLOOD COUNT 2.97 10^6/uL (4.00-5.40); RED CELL DISTRIBUTION WIDTH 13.4 % (11.5-14.5)
[2018-03-27 05:49] LABS: INR 1.18; PROTHROMBIN TIME 15.2 SECONDS (12.4-14.5)
[2018-03-27 06:03] LABS: ANION GAP 5 MEQ/L (8-16); BLOOD UREA NITROGEN 10 MG/DL (7-18); CALCIUM LEVEL 7.6 MG/DL (8.5-10.1); CARBON DIOXIDE LEVEL 28 MEQ/L (21-32); CHLORIDE LEVEL 111 MEQ/L (98-107); GLOMERULAR FILTRATION RATE > 60.0 (>58); GLUCOSE, FASTING 241 MG/DL (70-100); POTASSIUM SERUM 3.6 MEQ/L (3.5-5.1); SODIUM LEVEL 144 MEQ/L (136-145)
[2018-03-27] MEDS: PERCOCET 5MG/325MG TAB PO ×3 (08:03→21:53)
[2018-03-27] MEDS: DULoxetine 30 MG CAP (CYMBALTA) PO ×2 (08:04→20:27)
[2018-03-27] MEDS: valACYclovir HCL 500 MG TAB PO ×2 (08:04→20:33)
[2018-03-27] MEDS: SERTRALINE 100 MG TAB PO (08:04)
[2018-03-27] MEDS: ROSUVASTATIN 10 MG TAB (CRESTOR) PO (08:04)
[2018-03-27] MEDS: PREGABALIN 100 MG CAP (LYRICA) PO ×2 (08:05→20:28)
[2018-03-27] MEDS: OMEPRAZOLE 20 MG CAP PO ×2 (08:05→20:27)
[2018-03-27] MEDS: POTASSIUM CHLORIDE 10 MEQ SR TABLET PO ×2 (08:05→20:27)
[2018-03-27] MEDS: HumaLOG INSULIN (NovoLOG) PER UNIT SC ×4 (08:06→20:37)
[2018-03-27] MEDS: ENOXAPARIN 30 MG/0.3 ML SYR (J1650) SC (08:06)
[2018-03-27] MEDS: LEVEMIR (INSULIN DETEMIR) 1 UNITS/0.01ML SC ×2 (08:06→21:51)
[2018-03-27] MEDS: amLODIPine 5 MG TAB PO (08:08)
[2018-03-27] MEDS: CARVedilol 12.5 MG TAB PO ×2 (08:08→20:38)
[2018-03-27] MEDS: ONDANSETRON 4 MG ORAL DISINTEGRATING TAB (Q0162 PER 1MG) PO (11:10)
[2018-03-27 11:42] LABS: BEDSIDE GLUCOSE 254 MG/DL (70-105)
[2018-03-27 16:36] LABS: BEDSIDE GLUCOSE 264 MG/DL (70-105)
[2018-03-27] MEDS: FERROUS SULFATE 325MG TAB PO (20:27)
[2018-03-27] MEDS: FAMOTIDINE 20 MG TAB PO (20:27)
[2018-03-27] MEDS: MONTELUKAST 10 MG TAB PO (20:27)
[2018-03-27] MEDS: DOCUSATE SODIUM 100 MG CAP PO (20:27)
[2018-03-27] MEDS: SENNA 8.6 MG TAB (SENOKOT) PO (20:33)
[2018-03-27] MEDS: rOPINIRole 1MG TAB PO (20:33)
[2018-03-27] MEDS: traZODone 100 MG TAB PO (20:33)
[2018-03-27 20:43] LABS: BEDSIDE GLUCOSE 245 MG/DL (70-105)
[2018-03-27] MEDS: QUEtiapine FUMARATE 200 MG TAB PO (22:19)
[2018-03-28] MEDS: metroNIDAZOLE 500 MG in APPROPRIATE DILUENT 1 EA IV ×3 (04:08→20:26)
[2018-03-28] MEDS: SODIUM CHLORIDE 0.9% INJ 10 ML SYR IV ×3 (05:22→21:48)
[2018-03-28] MEDS: PERCOCET 5MG/325MG TAB PO ×3 (06:13→18:14)
[2018-03-28 06:42] LABS: ANION GAP 6 MEQ/L (8-16); BLOOD UREA NITROGEN 10 MG/DL (7-18); CALCIUM LEVEL 7.9 MG/DL (8.5-10.1); CARBON DIOXIDE LEVEL 27 MEQ/L (21-32); CHLORIDE LEVEL 111 MEQ/L (98-107); GLOMERULAR FILTRATION RATE > 60.0 (>58); GLUCOSE, FASTING 232 MG/DL (70-100); POTASSIUM SERUM 4.3 MEQ/L (3.5-5.1); SODIUM LEVEL 144 MEQ/L (136-145)
[2018-03-28] MEDS: HumaLOG INSULIN (NovoLOG) PER UNIT SC ×4 (08:10→21:48)
[2018-03-28] MEDS: SERTRALINE 100 MG TAB PO (08:11)
[2018-03-28] MEDS: LEVEMIR (INSULIN DETEMIR) 1 UNITS/0.01ML SC ×2 (08:11→21:48)
[2018-03-28] MEDS: amLODIPine 5 MG TAB PO (08:11)
[2018-03-28] MEDS: PREGABALIN 100 MG CAP (LYRICA) PO ×2 (08:11→20:22)
[2018-03-28] MEDS: DULoxetine 30 MG CAP (CYMBALTA) PO ×2 (08:12→20:22)
[2018-03-28] MEDS: valACYclovir HCL 500 MG TAB PO ×2 (08:12→20:25)
[2018-03-28] MEDS: POTASSIUM CHLORIDE 10 MEQ SR TABLET PO ×2 (08:12→20:22)
[2018-03-28] MEDS: OMEPRAZOLE 20 MG CAP PO ×2 (08:12→20:21)
[2018-03-28] MEDS: CARVedilol 12.5 MG TAB PO ×2 (08:12→20:25)
[2018-03-28] MEDS: ROSUVASTATIN 10 MG TAB (CRESTOR) PO (08:12)
[2018-03-28] MEDS: ENOXAPARIN 30 MG/0.3 ML SYR (J1650) SC (08:13)
[2018-03-28 11:41] LABS: BEDSIDE GLUCOSE 295 MG/DL (70-105)
[2018-03-28 16:45] LABS: BEDSIDE GLUCOSE 214 MG/DL (70-105)
[2018-03-28] MEDS: FAMOTIDINE 20 MG TAB PO (20:21)
[2018-03-28] MEDS: MONTELUKAST 10 MG TAB PO (20:21)
[2018-03-28] MEDS: QUEtiapine FUMARATE 200 MG TAB PO (20:21)
[2018-03-28] MEDS: rOPINIRole 1MG TAB PO (20:22)
[2018-03-28] MEDS: SENNA 8.6 MG TAB (SENOKOT) PO (20:25)
[2018-03-28] MEDS: traZODone 100 MG TAB PO (20:25)
[2018-03-28] MEDS: DOCUSATE SODIUM 100 MG CAP PO (20:25)
[2018-03-28] MEDS: FERROUS SULFATE 325MG TAB PO (20:25)
[2018-03-28 20:37] LABS: BEDSIDE GLUCOSE 301 MG/DL (70-105)
[2018-03-29] MEDS: metroNIDAZOLE 500 MG in APPROPRIATE DILUENT 1 EA IV ×3 (04:28→20:52)
[2018-03-29] MEDS: PERCOCET 5MG/325MG TAB PO ×3 (04:29→17:42)
[2018-03-29] MEDS: SODIUM CHLORIDE 0.9% INJ 10 ML SYR IV ×3 (05:50→21:00)
[2018-03-29 06:08] LABS: BASO % 0.4 % (0.0-1.0); EOS # 0.1 10^3/uL (0.0-0.50); EOS % 1.5 % (0.0-3.0); HEMATOCRIT 26.1 % (36.0-47.0); HEMOGLOBIN 8.8 g/dl (12.0-15.5); IMMATURE GRANULOCYTE % 4.2 % (0-3.0); LYMPH # 1.8 10^3/uL (1.5-4.5); LYMPH % 24.4 % (24.0-44.0); MEAN CORPUSCULAR HGB CONC 33.7 g/dl (32.0-36.5); MEAN CORPUSCULAR VOLUME 86.1 fl (80.0-96.0); MONO # 0.5 10^3/uL (0.0-0.8); MONO % 6.8 % (0.0-5.0); NEUTROPHILS # 4.6 10^3/uL (1.8-7.7); NEUTROPHILS % 62.7 % (36.0-66.0); PLATELET COUNT, AUTOMATED 183 10^3/uL (150-450); RED BLOOD COUNT 3.03 10^6/uL (4.00-5.40); RED CELL DISTRIBUTION WIDTH 13.4 % (11.5-14.5); WHITE BLOOD COUNT 7.4 10^3/uL (4.0-10.0)
[2018-03-29 06:49] LABS: ALBUMIN 2.2 GM/DL (3.2-5.2); ALBUMIN/GLOBULIN RATIO 0.79 (1.00-1.93); ALKALINE PHOSPHATASE 96 U/L (45-117); ALT/SGPT 17 U/L (12-78); ANION GAP 7 MEQ/L (8-16); AST/SGOT 16 U/L (7-37); BILIRUBIN,TOTAL 0.2 MG/DL (0.2-1.0); BLOOD UREA NITROGEN 10 MG/DL (7-18); CALCIUM LEVEL 7.8 MG/DL (8.5-10.1); CARBON DIOXIDE LEVEL 28 MEQ/L (21-32); CHLORIDE LEVEL 109 MEQ/L (98-107); GLOMERULAR FILTRATION RATE > 60.0 (>58); GLUCOSE, FASTING 218 MG/DL (70-100); POTASSIUM SERUM 4.5 MEQ/L (3.5-5.1); SODIUM LEVEL 144 MEQ/L (136-145)
[2018-03-29] MEDS: SERTRALINE 100 MG TAB PO (08:19)
[2018-03-29] MEDS: DULoxetine 30 MG CAP (CYMBALTA) PO ×2 (08:19→20:53)
[2018-03-29] MEDS: PREGABALIN 100 MG CAP (LYRICA) PO ×2 (08:19→20:54)
[2018-03-29] MEDS: POTASSIUM CHLORIDE 10 MEQ SR TABLET PO ×2 (08:19→20:54)
[2018-03-29] MEDS: ROSUVASTATIN 10 MG TAB (CRESTOR) PO (08:20)
[2018-03-29] MEDS: OMEPRAZOLE 20 MG CAP PO ×2 (08:20→20:53)
[2018-03-29] MEDS: valACYclovir HCL 500 MG TAB PO ×2 (08:20→20:54)
[2018-03-29] MEDS: LEVEMIR (INSULIN DETEMIR) 1 UNITS/0.01ML SC ×2 (08:20→20:56)
[2018-03-29] MEDS: HumaLOG INSULIN (NovoLOG) PER UNIT SC ×4 (08:21→20:59)
[2018-03-29] MEDS: CARVedilol 12.5 MG TAB PO ×2 (08:22→21:17)
[2018-03-29] MEDS: ENOXAPARIN 30 MG/0.3 ML SYR (J1650) SC (08:22)
[2018-03-29] MEDS: amLODIPine 5 MG TAB PO (08:22)
[2018-03-29] MEDS ORDERED: ISOVUE-300 61% 50ML VIAL (Q9967) As Ordered (08:48)
[2018-03-29] MEDS ORDERED: MIDAZOLAM INJ 2 MG/2 ML VIAL (J2250) As Ordered (09:46)
[2018-03-29] MEDS ORDERED: fentaNYL 100 MCG/2 ML INJECTION (J3010) As Ordered (09:46)
[2018-03-29 12:10] LABS: BEDSIDE GLUCOSE 112 MG/DL (70-105)
[2018-03-29 17:00] LABS: BEDSIDE GLUCOSE 332 MG/DL (70-105)
[2018-03-29 20:08] LABS: BEDSIDE GLUCOSE 367 MG/DL (70-105)
[2018-03-29] MEDS: QUEtiapine FUMARATE 200 MG TAB PO (20:52)
[2018-03-29] MEDS: traZODone 100 MG TAB PO (20:53)
[2018-03-29] MEDS: rOPINIRole 1MG TAB PO (20:53)
[2018-03-29] MEDS: FERROUS SULFATE 325MG TAB PO (20:54)
[2018-03-29] MEDS: FAMOTIDINE 20 MG TAB PO (20:54)
[2018-03-29] MEDS: MONTELUKAST 10 MG TAB PO (20:54)
[2018-03-29] MEDS: SENNA 8.6 MG TAB (SENOKOT) PO (20:55)
[2018-03-29] MEDS: DOCUSATE SODIUM 100 MG CAP PO (20:55)
[2018-03-30] MEDS: metroNIDAZOLE 500 MG in APPROPRIATE DILUENT 1 EA IV (03:42)
[2018-03-30] MEDS: PERCOCET 5MG/325MG TAB PO ×2 (04:18→11:30)
[2018-03-30] MEDS: SODIUM CHLORIDE 0.9% INJ 10 ML SYR IV (05:15)
[2018-03-30 05:32] LABS: HEMATOCRIT 25.7 % (36.0-47.0); HEMOGLOBIN 8.6 g/dl (12.0-15.5); MEAN CORPUSCULAR HEMOGLOBIN 28.5 pg (27.0-33.0); MEAN CORPUSCULAR HGB CONC 33.5 g/dl (32.0-36.5); MEAN CORPUSCULAR VOLUME 85.1 fl (80.0-96.0); PLATELET COUNT, AUTOMATED 183 10^3/uL (150-450); RED BLOOD COUNT 3.02 10^6/uL (4.00-5.40); RED CELL DISTRIBUTION WIDTH 13.6 % (11.5-14.5); WHITE BLOOD COUNT 7.3 10^3/uL (4.0-10.0)
[2018-03-30 06:57] LABS: BEDSIDE GLUCOSE 204 MG/DL (70-105)
[2018-03-30] MEDS: SERTRALINE 100 MG TAB PO (09:14)
[2018-03-30] MEDS: DULoxetine 30 MG CAP (CYMBALTA) PO (09:14)
[2018-03-30] MEDS: valACYclovir HCL 500 MG TAB PO (09:14)
[2018-03-30] MEDS: OMEPRAZOLE 20 MG CAP PO (09:15)
[2018-03-30] MEDS: ROSUVASTATIN 10 MG TAB (CRESTOR) PO (09:15)
[2018-03-30] MEDS: LEVEMIR (INSULIN DETEMIR) 1 UNITS/0.01ML SC (09:15)
[2018-03-30] MEDS: POTASSIUM CHLORIDE 10 MEQ SR TABLET PO (09:15)
[2018-03-30] MEDS: PREGABALIN 100 MG CAP (LYRICA) PO (09:15)
[2018-03-30] MEDS: ENOXAPARIN 30 MG/0.3 ML SYR (J1650) SC (09:15)
[2018-03-30] MEDS: amLODIPine 5 MG TAB PO (09:16)
[2018-03-30] MEDS: HumaLOG INSULIN (NovoLOG) PER UNIT SC ×2 (09:16→12:31)
[2018-03-30] MEDS: CARVedilol 12.5 MG TAB PO (09:17)
[2018-03-30 11:55] LABS: BEDSIDE GLUCOSE 302 MG/DL (70-105)
== END 2018-03-30 13:18 | disposition home or self-care (01) | DRG 393 ==
LOC: M ED 00:12 → M ED INP 03:25 → M MSPAV 03-21 17:15 → M ICU 04:18
PROVIDERS: Family Medicine
PROC: 0DBN8ZZ Excision of Sigmoid Colon, Via Natural or Artificial Opening Endoscopic (ICD-10-PCS; 2018-03-23 13:45)
PROC: 02HV33Z Insertion of Infusion Device into Superior Vena Cava, Percutaneous Approach (ICD-10-PCS; principal; 2018-03-23 14:14)
PROC: B400YZZ Plain Radiography of Abdominal Aorta using Other Contrast (ICD-10-PCS; 2018-03-23 14:14)
PROC: B404YZZ Plain Radiography of Superior Mesenteric Artery using Other Contrast (ICD-10-PCS; 2018-03-23 14:14)
PROC: B40BYZZ Plain Radiography of Other Intra-Abdominal Arteries using Other Contrast (ICD-10-PCS; 2018-03-23 14:14)
DX: K55.039 Acute (reversible) ischemia of large intestine, extent unspecified (principal); G93.41 Metabolic encephalopathy; E11.10 Type 2 diabetes mellitus with ketoacidosis without coma; D80.1 Nonfamilial hypogammaglobulinemia; N17.9 Acute kidney failure, unspecified; D68.51 Activated protein C resistance; M47.816 Spondylosis without myelopathy or radiculopathy, lumbar region; K76.0 Fatty (change of) liver, not elsewhere classified; I10 Essential (primary) hypertension; J45.909 Unspecified asthma, uncomplicated; F31.9 Bipolar disorder, unspecified; F40.00 Agoraphobia, unspecified; L40.9 Psoriasis, unspecified; K21.9 Gastro-esophageal reflux disease without esophagitis; D50.9 Iron deficiency anemia, unspecified; E11.21 Type 2 diabetes mellitus with diabetic nephropathy; E11.319 Type 2 diabetes mellitus with unspecified diabetic retinopathy without macular edema; E11.40 Type 2 diabetes mellitus with diabetic neuropathy, unspecified; G25.81 Restless legs syndrome; K59.00 Constipation, unspecified; Q76.0 Spina bifida occulta; M26.603 Bilateral temporomandibular joint disorder, unspecified; E11.65 Type 2 diabetes mellitus with hyperglycemia; E87.6 Hypokalemia; E11.621 Type 2 diabetes mellitus with foot ulcer; M79.7 Fibromyalgia; F42.9 Obsessive-compulsive disorder, unspecified; B00.9 Herpesviral infection, unspecified; Z89.512 Acquired absence of left leg below knee; Z79.4 Long term (current) use of insulin; Z79.01 Long term (current) use of anticoagulants; Z79.899 Other long term (current) drug therapy; Z88.0 Allergy status to penicillin; Z88.1 Allergy status to other antibiotic agents; Z88.2 Allergy status to sulfonamides; Z88.8 Allergy status to other drugs, medicaments and biological substances; Z91.040 Latex allergy status; Z91.018 Allergy to other foods

== ENCOUNTER → 2018-04-06 | Outpatient (REF) | payer OTHER ==
[2018-04-06 15:52] LABS: BASO % 0.7 % (0.0-1.0); EOS # 0.1 10^3/uL (0.0-0.50); EOS % 2.8 % (0.0-3.0); HEMATOCRIT 31.5 % (36.0-47.0); HEMOGLOBIN 11.1 g/dl (12.0-15.5); IMMATURE GRANULOCYTE % 0.4 % (0-3.0); LYMPH # 1.1 10^3/uL (1.5-4.5); LYMPH % 23.2 % (24.0-44.0); MEAN CORPUSCULAR HEMOGLOBIN 29.2 pg (27.0-33.0); MEAN CORPUSCULAR HGB CONC 35.2 g/dl (32.0-36.5); MEAN CORPUSCULAR VOLUME 82.9 fl (80.0-96.0); MONO # 0.4 10^3/uL (0.0-0.8); MONO % 9.4 % (0.0-5.0); NEUTROPHILS # 2.9 10^3/uL (1.8-7.7); NEUTROPHILS % 63.5 % (36.0-66.0); PLATELET COUNT, AUTOMATED 291 10^3/uL (150-450); RED CELL DISTRIBUTION WIDTH 15.6 % (11.5-14.5); RETIC HEMOGLOBIN EQUIVALENT 32.3 pg (24-36); RETICULOCYTE # 226.1 10^9/L (17-77); WHITE BLOOD COUNT 4.6 10^3/uL (4.0-10.0)
[2018-04-06 16:07] LABS: INR 1.01; PROTHROMBIN TIME 13.4 SECONDS (12.4-14.5)
[2018-04-06 16:08] LABS: PARTIAL THROMBOPLASTIN TIME 28.3 SECONDS (26.8-37.9)
[2018-04-06 16:18] LABS: ALBUMIN 2.8 GM/DL (3.2-5.2); ALBUMIN/GLOBULIN RATIO 0.78 (1.00-1.93); ALKALINE PHOSPHATASE 109 U/L (45-117); ALT/SGPT 18 U/L (12-78); ANION GAP 10 MEQ/L (8-16); AST/SGOT 13 U/L (7-37); BILIRUBIN,TOTAL 0.3 MG/DL (0.2-1.0); BLOOD UREA NITROGEN 14 MG/DL (7-18); CARBON DIOXIDE LEVEL 28 MEQ/L (21-32); CHLORIDE LEVEL 102 MEQ/L (98-107); CREATININE FOR GFR 0.89 MG/DL (0.55-1.30); GLOMERULAR FILTRATION RATE > 60.0 (>58); GLUCOSE, FASTING 259 MG/DL (70-100); POTASSIUM SERUM 4.9 MEQ/L (3.5-5.1); SODIUM LEVEL 140 MEQ/L (136-145); TOTAL PROTEIN 6.4 GM/DL (6.4-8.2)
== END ==
LOC: M SFHCPLAZ 14:47
DX: R19.7 Diarrhea, unspecified (principal); N18.3 Chronic kidney disease, stage 3 (moderate); D50.9 Iron deficiency anemia, unspecified; Z87.19 Personal history of other diseases of the digestive system

== ENCOUNTER 2018-04-17 14:25 | Emergency (ER) | payer OTHER ==
[2018-04-17] MEDS: NS 1,000 ML IV ×2 (15:30→21:07)
[2018-04-17 15:55] LABS: BEDSIDE GLUCOSE > 600 MG/DL (70-105)
[2018-04-17 16:11] LABS: KETONE, URINE AUTO RFX NEGATIVE (NEGATIVE); LEUKOCYTE ESTERASE UR AUTO RFX NEGATIVE (NEGATIVE); MUCUS, URINE RFX SMALL (NEGATIVE); NITRITE, URINE AUTO RFX NEGATIVE (NEGATIVE); RBC, URINE AUTO RFX 3 /HPF (0-3); SPECIFIC GRAVITY UR AUTO RFX 1.024 (1.002-1.035); SQUAM EPITHELIAL CELL UR AURFX 0 /HPF (0-6); WBC, URINE AUTO RFX 4 /HPF (0-3)
[2018-04-17 16:37] LABS: BASO # 0.1 10^3/uL (0.0-0.2); BASO % 0.7 % (0.0-1.0); EOS # 0.2 10^3/uL (0.0-0.50); EOS % 2.7 % (0.0-3.0); HEMATOCRIT 38.5 % (36.0-47.0); HEMOGLOBIN 13.9 g/dl (12.0-15.5); IMMATURE GRANULOCYTE % 1.3 % (0-3.0); LYMPH # 1.6 10^3/uL (1.5-4.5); LYMPH % 22.4 % (24.0-44.0); MEAN CORPUSCULAR HEMOGLOBIN 29.3 pg (27.0-33.0); MEAN CORPUSCULAR HGB CONC 36.1 g/dl (32.0-36.5); MEAN CORPUSCULAR VOLUME 81.2 fl (80.0-96.0); MONO # 0.6 10^3/uL (0.0-0.8); MONO % 8.6 % (0.0-5.0); NEUTROPHILS # 4.6 10^3/uL (1.8-7.7); NEUTROPHILS % 64.3 % (36.0-66.0); RED BLOOD COUNT 4.74 10^6/uL (4.00-5.40); RED CELL DISTRIBUTION WIDTH 13.9 % (11.5-14.5); VENOUS BASE EXCESS 1.4 (-2.0-2.0); VENOUS HCO3 25.7 MEQ/L (23.0-27.0); VENOUS O2 SATURATION 97.8 % (60.0-80.0); VENOUS PARTIAL PRESSURE CO2 39.5 mmHg (38.0-50.0); VENOUS PARTIAL PRESSURE O2 112.9 mmHg (30.0-50.0); VENOUS PH 7.431 UNITS (7.330-7.430); VENOUS STANDARD HCO3 25.7 MEQ/L; VENOUS TOTAL CO2 26.9 MEQ/L (24.0-28.0); WHITE BLOOD COUNT 7.1 10^3/uL (4.0-10.0)
[2018-04-17] MEDS: HumuLIN R (REGULAR) INSULIN (NovoLIN R) **100U/ML** PER UNIT IV ×3 (17:01→21:09)
[2018-04-17 17:02] LABS: ANION GAP 13 MEQ/L (8-16); BLOOD UREA NITROGEN 20 MG/DL (7-18); CALCIUM LEVEL 9.2 MG/DL (8.5-10.1); CARBON DIOXIDE LEVEL 24 MEQ/L (21-32); CHLORIDE LEVEL 93 MEQ/L (98-107); CREATININE FOR GFR 1.09 MG/DL (0.55-1.30); SODIUM LEVEL 130 MEQ/L (136-145)
[2018-04-17] MEDS: MORPHINE 2 MG/ML 1ML SYRINGE (J2270) IV ×2 (17:02→21:10)
[2018-04-17 17:05] LABS: ESTIMATED AVERAGE GLUCOSE 263 MG/DL (60-110); GLUCOSE, FASTING 579 MG/DL (70-100); HEMOGLOBIN A1c 10.8 %
[2018-04-17 17:27] LABS: PLATELET COUNT, AUTOMATED 257 10^3/uL (150-450); POS COUNT POS FLAG
[2018-04-17 18:32] LABS: BEDSIDE GLUCOSE 373 MG/DL (70-105)
[2018-04-17 18:48] LABS: VENOUS BASE EXCESS 1.5 (-2.0-2.0); VENOUS HCO3 25.9 MEQ/L (23.0-27.0); VENOUS O2 SATURATION 98.7 % (60.0-80.0); VENOUS PARTIAL PRESSURE CO2 40.1 mmHg (38.0-50.0); VENOUS PARTIAL PRESSURE O2 151.1 mmHg (30.0-50.0); VENOUS PH 7.428 UNITS (7.330-7.430); VENOUS STANDARD HCO3 25.8 MEQ/L; VENOUS TOTAL CO2 27.1 MEQ/L (24.0-28.0)
[2018-04-17 19:59] LABS: BEDSIDE GLUCOSE 326 MG/DL (70-105)
[2018-04-17 21:53] LABS: BEDSIDE GLUCOSE 221 MG/DL (70-105)
[2018-04-17] MEDS: OXYCODONE/APAP 5MG/325MG(BULK FOR ED) 1 TABLET PO (22:00)
== END 2018-04-17 22:12 | disposition home or self-care (01) ==
LOC: M ED 14:25
DX: E11.65 Type 2 diabetes mellitus with hyperglycemia (principal); I10 Essential (primary) hypertension; Q76.0 Spina bifida occulta; Z88.1 Allergy status to other antibiotic agents; Z88.8 Allergy status to other drugs, medicaments and biological substances; Z91.040 Latex allergy status; Z91.018 Allergy to other foods; Z88.0 Allergy status to penicillin; Z88.2 Allergy status to sulfonamides; Z79.899 Other long term (current) drug therapy; Z79.01 Long term (current) use of anticoagulants
CPT/HCPCS: J2270

== ENCOUNTER → 2018-04-17 | Outpatient (CLI) | payer OTHER | LOC: M RAD 13:26 | DX: S89.91XA Unspecified injury of right lower leg, initial encounter (principal); X58.XXXA Exposure to other specified factors, initial encounter; Y92.9 Unspecified place or not applicable; M17.11 Unilateral primary osteoarthritis, right knee | CPT/HCPCS: 73564 ==

== ENCOUNTER → 2018-04-17 | Outpatient (REF) | payer OTHER ==
[2018-04-17 11:57] LABS: INR 2.85; PROTHROMBIN TIME 30.5 SECONDS (12.1-14.4)
[2018-04-17 12:04] LABS: ANION GAP 12 MEQ/L (8-16); BLOOD UREA NITROGEN 18 MG/DL (7-18); CALCIUM LEVEL 8.9 MG/DL (8.5-10.1); CARBON DIOXIDE LEVEL 27 MEQ/L (21-32); CHLORIDE LEVEL 91 MEQ/L (98-107); CREATININE FOR GFR 1.29 MG/DL (0.55-1.30); SODIUM LEVEL 130 MEQ/L (136-145)
[2018-04-17 13:21] LABS: GLUCOSE, FASTING 707 MG/DL (70-100); POTASSIUM SERUM 5.7 MEQ/L (3.5-5.1)
== END ==
LOC: M SFHCPLAZ 08:51
DX: E87.6 Hypokalemia (principal); I82.409 Acute embolism and thrombosis of unspecified deep veins of unspecified lower extremity; Z79.01 Long term (current) use of anticoagulants
CPT/HCPCS: 80048

== ENCOUNTER → 2018-04-24 | Outpatient (REF) | payer OTHER ==
[2018-04-24 16:12] LABS: INR 1.48; PROTHROMBIN TIME 18.1 SECONDS (12.1-14.4)
== END ==
LOC: M SFHCPLAZ 12:56
DX: Z51.81 Encounter for therapeutic drug level monitoring (principal); Z79.899 Other long term (current) drug therapy

== ENCOUNTER → 2018-05-19 | Outpatient (REF) | payer OTHER ==
[2018-05-19 16:31] LABS: ANION GAP 10 MEQ/L (8-16); BLOOD UREA NITROGEN 21 MG/DL (7-18); CARBON DIOXIDE LEVEL 25 MEQ/L (21-32); CHLORIDE LEVEL 103 MEQ/L (98-107); CREATININE FOR GFR 1.18 MG/DL (0.55-1.30); FERRITIN 125 NG/ML (8-252); GLUCOSE, FASTING 160 MG/DL (70-100); POTASSIUM SERUM 4.4 MEQ/L (3.5-5.1); SODIUM LEVEL 138 MEQ/L (136-145)
== END ==
LOC: M SFHCPLAZ 13:28
DX: G25.81 Restless legs syndrome (principal); E11.40 Type 2 diabetes mellitus with diabetic neuropathy, unspecified

== ENCOUNTER 2018-06-27 12:22 | Emergency (ER) | payer OTHER ==
[2018-06-27 13:12] LABS: BASO % 0.4 % (0.0-1.0); EOS # 0.1 10^3/uL (0.0-0.50); EOS % 1.9 % (0.0-3.0); HEMATOCRIT 38.1 % (36.0-47.0); HEMOGLOBIN 13.5 g/dl (12.0-15.5); IMMATURE GRANULOCYTE % 0.9 % (0-3.0); LYMPH # 1.8 10^3/uL (1.5-4.5); LYMPH % 27.1 % (24.0-44.0); MEAN CORPUSCULAR HEMOGLOBIN 29.2 pg (27.0-33.0); MEAN CORPUSCULAR HGB CONC 35.4 g/dl (32.0-36.5); MEAN CORPUSCULAR VOLUME 82.3 fl (80.0-96.0); MONO # 0.5 10^3/uL (0.0-0.8); MONO % 6.8 % (0.0-5.0); NEUTROPHILS # 4.3 10^3/uL (1.8-7.7); NEUTROPHILS % 62.9 % (36.0-66.0); PLATELET COUNT, AUTOMATED 235 10^3/uL (150-450); RED BLOOD COUNT 4.63 10^6/uL (4.00-5.40); RED CELL DISTRIBUTION WIDTH 13.2 % (11.5-14.5); WHITE BLOOD COUNT 6.8 10^3/uL (4.0-10.0)
[2018-06-27] MEDS: NS 1,000 ML IV ×2 (13:15→14:43)
[2018-06-27 13:42] LABS: VENOUS BASE EXCESS 3.5 (-2.0-2.0); VENOUS HCO3 28.8 MEQ/L (23.0-27.0); VENOUS PARTIAL PRESSURE CO2 46.3 mmHg (38.0-50.0); VENOUS PARTIAL PRESSURE O2 57.9 mmHg (30.0-50.0); VENOUS PH 7.412 UNITS (7.330-7.430); VENOUS STANDARD HCO3 27.3 MEQ/L; VENOUS TOTAL CO2 30.2 MEQ/L (24.0-28.0)
[2018-06-27 13:46] LABS: BEDSIDE GLUCOSE 568 MG/DL (70-105)
[2018-06-27] MEDS: HumuLIN R (REGULAR) INSULIN (NovoLIN R) **100U/ML** PER UNIT IV ×2 (14:03→15:19)
[2018-06-27 14:21] LABS: ALKALINE PHOSPHATASE 136 U/L (45-117); ALT/SGPT 31 U/L (12-78); ANION GAP 8 MEQ/L (8-16); AST/SGOT 21 U/L (7-37); BILIRUBIN,DIRECT < 0.1 MG/DL (0.0-0.2); BILIRUBIN,TOTAL 0.4 MG/DL (0.2-1.0); BLOOD UREA NITROGEN 25 MG/DL (7-18); CALCIUM LEVEL 8.7 MG/DL (8.5-10.1); CARBON DIOXIDE LEVEL 30 MEQ/L (21-32); CHLORIDE LEVEL 94 MEQ/L (98-107); CREATININE FOR GFR 1.32 MG/DL (0.55-1.30); GLOMERULAR FILTRATION RATE 45.5 (>58); MAGNESIUM LEVEL 2.3 MG/DL (1.8-2.4); POTASSIUM SERUM 5.7 MEQ/L (3.5-5.1); SODIUM LEVEL 132 MEQ/L (136-145); TOTAL PROTEIN 6.9 GM/DL (6.4-8.2)
[2018-06-27 14:26] LABS: ALBUMIN/GLOBULIN RATIO 0.77 (1.00-1.93)
[2018-06-27 14:55] LABS: GLUCOSE, FASTING 545 MG/DL (70-100)
[2018-06-27 15:08] LABS: BEDSIDE GLUCOSE 443 MG/DL (70-105)
[2018-06-27 15:15] LABS: ESTIMATED AVERAGE GLUCOSE 344 MG/DL (60-110); HEMOGLOBIN A1c 13.6 %
[2018-06-27 16:06] LABS: BEDSIDE GLUCOSE 365 MG/DL (70-105)
[2018-06-28 12:26] LABS: BEDSIDE GLUCOSE 547 MG/DL (70-105)
== END 2018-06-27 17:25 | disposition home or self-care (01) ==
LOC: M ED 12:22
DX: E10.65 Type 1 diabetes mellitus with hyperglycemia (principal); I13.0 Hypertensive heart and chronic kidney disease with heart failure and stage 1 through stage 4 chronic kidney disease, or unspecified chronic kidney disease; N18.3 Chronic kidney disease, stage 3 (moderate); E78.5 Hyperlipidemia, unspecified; J44.9 Chronic obstructive pulmonary disease, unspecified; G47.33 Obstructive sleep apnea (adult) (pediatric); I50.9 Heart failure, unspecified; Z86.39 Personal history of other endocrine, nutritional and metabolic disease; G40.909 Epilepsy, unspecified, not intractable, without status epilepticus; E10.40 Type 1 diabetes mellitus with diabetic neuropathy, unspecified; E10.22 Type 1 diabetes mellitus with diabetic chronic kidney disease; K21.9 Gastro-esophageal reflux disease without esophagitis; Q76.0 Spina bifida occulta; D68.51 Activated protein C resistance; G43.909 Migraine, unspecified, not intractable, without status migrainosus; Z86.718 Personal history of other venous thrombosis and embolism; Z87.442 Personal history of urinary calculi; Z88.0 Allergy status to penicillin; Z88.2 Allergy status to sulfonamides; Z88.8 Allergy status to other drugs, medicaments and biological substances; Z88.1 Allergy status to other antibiotic agents; Z91.040 Latex allergy status; Z91.018 Allergy to other foods; Z86.14 Personal history of Methicillin resistant Staphylococcus aureus infection; Z77.098 Contact with and (suspected) exposure to other hazardous, chiefly nonmedicinal, chemicals; Z79.899 Other long term (current) drug therapy; Z79.01 Long term (current) use of anticoagulants
CPT/HCPCS: 83735

== ENCOUNTER → 2018-07-13 | Outpatient (REF) | payer OTHER | LOC: M SFHCPLAZ 14:19 | DX: I10 Essential (primary) hypertension (principal); E87.1 Hypo-osmolality and hyponatremia; E87.5 Hyperkalemia; R74.8 Abnormal levels of other serum enzymes; E88.09 Other disorders of plasma-protein metabolism, not elsewhere classified; E11.65 Type 2 diabetes mellitus with hyperglycemia ==

== ENCOUNTER 2018-07-14 11:54 | Day surgery (SDC) | payer OTHER ==
[2018-07-14] MEDS: HumaLOG INSULIN (NovoLOG) PER UNIT SC ×2 (13:11)
[2018-07-14] MEDS: NS 1,000 ML IV ×2 (13:11)
[2018-07-14] MEDS: ALBUTEROL SULFATE 2.5 MG/0.5 ML INH NEB SOLN INH ×2 (13:12)
[2018-07-14] MEDS ORDERED: LIDOCAINE 2% INJ 100 MG/5 ML SDV (FOR ANES.) As Ordered ×2 (14:19)
[2018-07-14] MEDS ORDERED: PROPOFOL 200 MG/20 ML VIAL As Ordered ×2 (14:19)
== END 2018-07-14 14:48 | disposition home or self-care (01) ==
LOC: M OPP 14:48
DX: K55.039 Acute (reversible) ischemia of large intestine, extent unspecified (principal); K52.9 Noninfective gastroenteritis and colitis, unspecified; K63.3 Ulcer of intestine; K64.8 Other hemorrhoids; R12 Heartburn; R11.0 Nausea; K31.7 Polyp of stomach and duodenum; I49.3 Ventricular premature depolarization; I12.9 Hypertensive chronic kidney disease with stage 1 through stage 4 chronic kidney disease, or unspecified chronic kidney disease; E10.40 Type 1 diabetes mellitus with diabetic neuropathy, unspecified; K57.32 Diverticulitis of large intestine without perforation or abscess without bleeding; K44.9 Diaphragmatic hernia without obstruction or gangrene; K58.9 Irritable bowel syndrome, unspecified; K31.84 Gastroparesis; K21.9 Gastro-esophageal reflux disease without esophagitis; D64.9 Anemia, unspecified; I82.891 Chronic embolism and thrombosis of other specified veins; D68.51 Activated protein C resistance; D83.9 Common variable immunodeficiency, unspecified; R23.3 Spontaneous ecchymoses; Q76.0 Spina bifida occulta; M79.7 Fibromyalgia; F17.210 Nicotine dependence, cigarettes, uncomplicated; Z86.14 Personal history of Methicillin resistant Staphylococcus aureus infection; Z87.19 Personal history of other diseases of the digestive system; M19.90 Unspecified osteoarthritis, unspecified site; M06.9 Rheumatoid arthritis, unspecified; M48.00 Spinal stenosis, site unspecified; M81.0 Age-related osteoporosis without current pathological fracture; M14.672 Charcot's joint, left ankle and foot; F41.9 Anxiety disorder, unspecified; F31.9 Bipolar disorder, unspecified; G43.909 Migraine, unspecified, not intractable, without status migrainosus; R56.9 Unspecified convulsions; J44.9 Chronic obstructive pulmonary disease, unspecified; G47.30 Sleep apnea, unspecified; R06.83 Snoring; N18.9 Chronic kidney disease, unspecified; Z88.1 Allergy status to other antibiotic agents; Z88.8 Allergy status to other drugs, medicaments and biological substances; Z91.040 Latex allergy status; Z88.0 Allergy status to penicillin; Z91.018 Allergy to other foods; Z88.2 Allergy status to sulfonamides; Z79.01 Long term (current) use of anticoagulants; Z79.899 Other long term (current) drug therapy; Z79.4 Long term (current) use of insulin; Z80.0 Family history of malignant neoplasm of digestive organs; Z80.42 Family history of malignant neoplasm of prostate; Z80.51 Family history of malignant neoplasm of kidney
CPT/HCPCS: 45380

== ENCOUNTER → 2018-07-14 | Outpatient (REF) | payer OTHER ==
[2018-07-14 09:18] LABS: ALBUMIN/GLOBULIN RATIO 0.86 (1.00-1.93); ALKALINE PHOSPHATASE 113 U/L (45-117); ALT/SGPT 22 U/L (12-78); ANION GAP 10 MEQ/L (8-16); AST/SGOT 24 U/L (7-37); BILIRUBIN,TOTAL 0.5 MG/DL (0.2-1.0); BLOOD UREA NITROGEN 22 MG/DL (7-18); CALCIUM LEVEL 8.9 MG/DL (8.5-10.1); CARBON DIOXIDE LEVEL 25 MEQ/L (21-32); CHLORIDE LEVEL 102 MEQ/L (98-107); CREATININE FOR GFR 1.32 MG/DL (0.55-1.30); GLOMERULAR FILTRATION RATE 45.5 (>58); GLUCOSE, FASTING 398 MG/DL (70-100); POTASSIUM SERUM 5.1 MEQ/L (3.5-5.1); SODIUM LEVEL 137 MEQ/L (136-145); TOTAL PROTEIN 6.5 GM/DL (6.4-8.2)
[2018-07-14 09:47] LABS: CORTISOL AM 5.4 UG/DL (4.3-22.4)
[2018-07-14 14:34] LABS: CREATININE, URINE 78.1 MG/DL; MAU/CREAT RATIO 3047.4 MCG/MG (0.0-30.0)
== END ==
LOC: M SFHCPLAZ 07:58
DX: I10 Essential (primary) hypertension (principal); E87.1 Hypo-osmolality and hyponatremia; E87.5 Hyperkalemia; R74.8 Abnormal levels of other serum enzymes; E88.09 Other disorders of plasma-protein metabolism, not elsewhere classified; E11.65 Type 2 diabetes mellitus with hyperglycemia

== ENCOUNTER → 2018-08-11 | Outpatient (CLI) | payer OTHER | LOC: M RAD 14:23 | DX: S62.626A Displaced fracture of middle phalanx of right little finger, initial encounter for closed fracture (principal); X58.XXXA Exposure to other specified factors, initial encounter; Y92.89 Other specified places as the place of occurrence of the external cause | CPT/HCPCS: 73140 ==

== ENCOUNTER 2018-08-17 16:37 | Emergency (ER) | payer OTHER ==
[2018-08-17 17:37] LABS: KETONE, URINE AUTO RFX NEGATIVE (NEGATIVE); LEUKOCYTE ESTERASE UR AUTO RFX NEGATIVE (NEGATIVE); NITRITE, URINE AUTO RFX NEGATIVE (NEGATIVE); RBC, URINE AUTO RFX 0 /HPF (0-3); SPECIFIC GRAVITY UR AUTO RFX 1.023 (1.002-1.035); SQUAM EPITHELIAL CELL UR AURFX 0 /HPF (0-6); WBC, URINE AUTO RFX 1 /HPF (0-3)
== END 2018-08-17 18:12 | disposition home or self-care (01) ==
LOC: M ED 16:37
DX: R33.9 Retention of urine, unspecified (principal)
CPT/HCPCS: 81001

== ENCOUNTER → 2018-08-17 | Outpatient (CLI) | payer OTHER | LOC: M RAD 13:48 | DX: R80.9 Proteinuria, unspecified (principal); E11.22 Type 2 diabetes mellitus with diabetic chronic kidney disease; R33.9 Retention of urine, unspecified | CPT/HCPCS: 76775 ==

== ENCOUNTER → 2018-08-24 | Outpatient (REF) | payer OTHER ==
[2018-08-24 14:33] LABS: CREATININE, URINE 28.3 MG/DL
[2018-08-24 19:31] LABS: CREATININE 24 HOUR, URINE 891.4 MG/24HR (600-1800); TOTAL VOLUME, URINE 3150 ML
== END ==
LOC: M LAB REF 13:42
DX: R80.9 Proteinuria, unspecified (principal)

== ENCOUNTER 2018-09-04 15:54 | Emergency (ER) | payer OTHER ==
[2018-09-04] MEDS: METOCLOPRAMIDE INJ 10MG/2ML VIAL (J2765) IV (17:09)
[2018-09-04] MEDS: diphenhydrAMINE INJ 50MG/ML VIAL (J1200) IV (17:09)
[2018-09-04] MEDS: NS 500 ML IV (17:09)
[2018-09-04] MEDS: LIDOCAINE VISCOUS 2% SOLN 15ML UDC PO (17:09)
[2018-09-04] MEDS: MORPHINE 4 MG/ML 1ML VIAL/SYRINGE (J2270) IV (17:13)
[2018-09-04 17:19] LABS: BASO % 0.2 % (0.0-1.0); EOS # 0.2 10^3/uL (0.0-0.50); EOS % 1.5 % (0.0-3.0); HEMATOCRIT 34.3 % (36.0-47.0); HEMOGLOBIN 12.1 g/dl (12.0-15.5); IMMATURE GRANULOCYTE % 0.5 % (0-3.0); LYMPH # 1.7 10^3/uL (1.5-4.5); LYMPH % 15.6 % (24.0-44.0); MEAN CORPUSCULAR HGB CONC 35.3 g/dl (32.0-36.5); MEAN CORPUSCULAR VOLUME 82.3 fl (80.0-96.0); MONO # 0.7 10^3/uL (0.0-0.8); MONO % 6.3 % (0.0-5.0); NEUTROPHILS # 8.4 10^3/uL (1.8-7.7); NEUTROPHILS % 75.9 % (36.0-66.0); PLATELET COUNT, AUTOMATED 219 10^3/uL (150-450); RED BLOOD COUNT 4.17 10^6/uL (4.00-5.40); RED CELL DISTRIBUTION WIDTH 13.1 % (11.5-14.5)
[2018-09-04 17:48] LABS: ALBUMIN/GLOBULIN RATIO 0.77 (1.00-1.93); ALKALINE PHOSPHATASE 137 U/L (45-117); ALT/SGPT 25 U/L (12-78); ANION GAP 6 MEQ/L (8-16); AST/SGOT 14 U/L (7-37); BILIRUBIN,DIRECT 0.1 MG/DL (0.0-0.2); BILIRUBIN,TOTAL 0.6 MG/DL (0.2-1.0); BLOOD UREA NITROGEN 26 MG/DL (7-18); CALCIUM LEVEL 8.9 MG/DL (8.5-10.1); CARBON DIOXIDE LEVEL 29 MEQ/L (21-32); CHLORIDE LEVEL 97 MEQ/L (98-107); CREATININE FOR GFR 1.45 MG/DL (0.55-1.30); GLOMERULAR FILTRATION RATE 40.9 (>58); GLUCOSE, FASTING 415 MG/DL (70-100); LIPASE 174 U/L (73-393); POTASSIUM SERUM 5.3 MEQ/L (3.5-5.1); SODIUM LEVEL 132 MEQ/L (136-145); TOTAL PROTEIN 6.9 GM/DL (6.4-8.2)
== END 2018-09-04 18:20 | disposition home or self-care (01) ==
LOC: M ED 15:54
DX: R13.10 Dysphagia, unspecified (principal); I11.0 Hypertensive heart disease with heart failure; I50.9 Heart failure, unspecified; E11.22 Type 2 diabetes mellitus with diabetic chronic kidney disease; I12.9 Hypertensive chronic kidney disease with stage 1 through stage 4 chronic kidney disease, or unspecified chronic kidney disease; N18.3 Chronic kidney disease, stage 3 (moderate)
CPT/HCPCS: J2270

== ENCOUNTER 2018-09-06 01:41 | Emergency (ER) | payer OTHER ==
[2018-09-06] MEDS: GLUCAGON FOR INJ 1 MG VIAL (J1610) IV (02:44)
[2018-09-06] MEDS: GI COCKTAIL 50ML BTL(HYOSCYAMINE/MAALOX/LIDOCAINE VISCOUS)(1:3:1) PO (02:44)
[2018-09-06] MEDS: PANTOPRAZOLE 40MG INJ (PROTONIX) (C9113) IV (02:44)
[2018-09-06] MEDS: MORPHINE 4 MG/ML 1ML VIAL/SYRINGE (J2270) IV (02:44)
[2018-09-06 02:47] LABS: BASO % 0.4 % (0.0-1.0); EOS % 0.4 % (0.0-3.0); HEMATOCRIT 35.1 % (36.0-47.0); IMMATURE GRANULOCYTE % 0.8 % (0-3.0); LYMPH # 0.6 10^3/uL (1.5-4.5); LYMPH % 12.2 % (24.0-44.0); MEAN CORPUSCULAR HEMOGLOBIN 28.8 pg (27.0-33.0); MEAN CORPUSCULAR HGB CONC 34.2 g/dl (32.0-36.5); MEAN CORPUSCULAR VOLUME 84.2 fl (80.0-96.0); MONO # 0.4 10^3/uL (0.0-0.8); MONO % 8.9 % (0.0-5.0); NEUTROPHILS # 3.8 10^3/uL (1.8-7.7); NEUTROPHILS % 77.3 % (36.0-66.0); PLATELET COUNT, AUTOMATED 184 10^3/uL (150-450); RED BLOOD COUNT 4.17 10^6/uL (4.00-5.40); WHITE BLOOD COUNT 4.9 10^3/uL (4.0-10.0)
[2018-09-06 02:59] LABS: INR 1.18; PROTHROMBIN TIME 15.2 SECONDS (12.1-14.4)
[2018-09-06 03:00] LABS: PARTIAL THROMBOPLASTIN TIME 32.2 SECONDS (25.4-37.6)
[2018-09-06 03:31] LABS: ALBUMIN 3.1 GM/DL (3.2-5.2); ALBUMIN/GLOBULIN RATIO 0.82 (1.00-1.93); ALKALINE PHOSPHATASE 144 U/L (45-117); ALT/SGPT 29 U/L (12-78); ANION GAP 9 MEQ/L (8-16); AST/SGOT 19 U/L (7-37); BILIRUBIN,DIRECT < 0.1 MG/DL (0.0-0.2); BILIRUBIN,TOTAL 0.5 MG/DL (0.2-1.0); BLOOD UREA NITROGEN 28 MG/DL (7-18); CALCIUM LEVEL 8.3 MG/DL (8.5-10.1); CARBON DIOXIDE LEVEL 27 MEQ/L (21-32); CHLORIDE LEVEL 93 MEQ/L (98-107); CPK CREATINE PHOSPHOKINASE 89 U/L (26-192); CREATININE FOR GFR 1.47 MG/DL (0.55-1.30); GLOMERULAR FILTRATION RATE 40.2 (>58); GLUCOSE, FASTING 526 MG/DL (70-100); LIPASE 162 U/L (73-393); MB/CK RELATIVE INDEX 1.91 (< OR =4); POTASSIUM SERUM 5.2 MEQ/L (3.5-5.1); SODIUM LEVEL 129 MEQ/L (136-145); TOTAL PROTEIN 6.9 GM/DL (6.4-8.2); TROPONIN I < 0.02 NG/ML (< 0.10)
[2018-09-06] MEDS: HumuLIN R (REGULAR) INSULIN (NovoLIN R) **100U/ML** PER UNIT IV (03:40)
[2018-09-06 04:46] LABS: BEDSIDE GLUCOSE 406 MG/DL (70-105)
== END 2018-09-06 05:25 | disposition home or self-care (01) ==
LOC: M ED 01:41
DX: E11.65 Type 2 diabetes mellitus with hyperglycemia (principal); R13.10 Dysphagia, unspecified; R00.0 Tachycardia, unspecified; R94.31 Abnormal electrocardiogram [ECG] [EKG]; I10 Essential (primary) hypertension; K21.9 Gastro-esophageal reflux disease without esophagitis; M79.7 Fibromyalgia; F31.9 Bipolar disorder, unspecified; J45.909 Unspecified asthma, uncomplicated; M47.816 Spondylosis without myelopathy or radiculopathy, lumbar region; K31.84 Gastroparesis; L40.9 Psoriasis, unspecified; A52.16 Charcot's arthropathy (tabetic); Z79.01 Long term (current) use of anticoagulants; Z79.4 Long term (current) use of insulin; Z79.899 Other long term (current) drug therapy; Z88.1 Allergy status to other antibiotic agents; Z88.0 Allergy status to penicillin; Z88.2 Allergy status to sulfonamides; Z88.8 Allergy status to other drugs, medicaments and biological substances; Z91.018 Allergy to other foods
CPT/HCPCS: C9113

== ENCOUNTER → 2018-09-15 | Outpatient (REF) | payer OTHER ==
[2018-09-15 17:44] LABS: URINE TOTAL PROTEIN 81.1 MG/DL (0-12)
[2018-09-15 17:50] LABS: COMPLEMENT C3 152 MG/DL (90-180); COMPLEMENT C4 27 MG/DL (10-40); TOTAL PROTEIN 7.1 GM/DL (6.4-8.2)
[2018-09-18 11:55] LABS: HEPATITIS B SURFACE ANTIBODY NEGATIVE (POSITIVE)
[2018-09-18 12:04] LABS: HEPATITIS B SURFACE ANTIGEN NEGATIVE (NEGATIVE)
[2018-09-18 12:32] LABS: HEPATITIS B CORE ANTIBODY IGM NEGATIVE (NEGATIVE); HEPATITIS C VIRUS ABY INDEX 0.1 INDEX (<0.8)
[2018-09-19 11:38] LABS: ALBUMIN 3.98 GM/DL (3.29-5.55); ALBUMIN % 56.1 % (55.8-66.1); ALPHA-1-GLOBULIN % 4.4 % (2.9-4.9); ALPHA-1-GLOBULINS 0.31 GM/DL (0.17-0.41); ALPHA-2-GLOBULINS 0.91 GM/DL (0.42-0.99); ALPHA-2-GLOBULINS % 12.8 % (7.1-11.8); BETA-1-GLOBULINS 0.45 GM/DL (0.28-0.60); BETA-1-GLOBULINS % 6.4 % (4.7-7.2); BETA-2-GLOBULINS 0.43 GM/DL (0.19-0.55); GAMMA GLOBULIN % 14.3 % (11.1-18.8); GAMMA GLOBULINS 1.02 GM/DL (0.65-1.58)
[2018-09-20 00:06] LABS: ANCA-ATYPICAL <1:20 titer (Neg:<1:20); ANTI DOUBLE STRAND-DNA AB <1 IU/mL (0-9); ANTINUCLEAR ANTIBODIES DIRECT Negative (Negative); CYTOPLASMIC NEUTROP AB ANCA-C <1:20 titer (Neg:<1:20); FREE KAPPA LIGHT CHAINS SERUM 23.2 mg/L (3.3-19.4); FREE LAMBDA LIGHT CHAINS SERUM 23.2 mg/L (5.7-26.3); PERINUCLEAR AB ANCA-P <1:20 titer (Neg:<1:20)
[2018-09-21 14:50] LABS: UPEP INTERPRETATION NO M-SPIKE NOTED; URINE VOLUME RANDOM ML
== END ==
LOC: M LAB REF 17:03
DX: N18.2 Chronic kidney disease, stage 2 (mild) (principal)
CPT/HCPCS: 84165

== ENCOUNTER 2018-09-17 17:32 | Emergency (ER) | payer OTHER ==
[2018-09-17] MEDS: PERCOCET 5MG/325MG TAB PO (18:15)
[2018-09-17] MEDS: OXYCODONE/APAP 5MG/325MG(BULK FOR ED) 1 TABLET PO (18:57)
== END 2018-09-17 19:02 | disposition home or self-care (01) ==
LOC: M ED 17:32
DX: S42.351A Displaced comminuted fracture of shaft of humerus, right arm, initial encounter for closed fracture (principal); W10.8XXA Fall (on) (from) other stairs and steps, initial encounter; Y92.048 Other place in boarding-house as the place of occurrence of the external cause; I11.9 Hypertensive heart disease without heart failure; G89.29 Other chronic pain; Z88.1 Allergy status to other antibiotic agents; Z88.8 Allergy status to other drugs, medicaments and biological substances; Z88.0 Allergy status to penicillin; Z88.2 Allergy status to sulfonamides; Z91.018 Allergy to other foods; Z91.040 Latex allergy status; Z79.899 Other long term (current) drug therapy; Z79.4 Long term (current) use of insulin; Z79.01 Long term (current) use of anticoagulants
CPT/HCPCS: 73060

== ENCOUNTER 2018-10-06 22:11 | Inpatient (IN) | payer OTHER ==
[2018-10-06 23:18] LABS: BASO % 0.4 % (0.0-1.0); EOS # 0.2 10^3/uL (0.0-0.50); EOS % 2.4 % (0.0-3.0); HEMATOCRIT 31.9 % (36.0-47.0); HEMOGLOBIN 11.2 g/dl (12.0-15.5); IMMATURE GRANULOCYTE % 0.8 % (0-3.0); LYMPH # 1.7 10^3/uL (1.5-4.5); LYMPH % 23.8 % (24.0-44.0); MEAN CORPUSCULAR HEMOGLOBIN 28.8 pg (27.0-33.0); MEAN CORPUSCULAR HGB CONC 35.1 g/dl (32.0-36.5); MONO # 0.5 10^3/uL (0.0-0.8); MONO % 6.5 % (0.0-5.0); NEUTROPHILS # 4.7 10^3/uL (1.8-7.7); NEUTROPHILS % 66.1 % (36.0-66.0); PLATELET COUNT, AUTOMATED 263 10^3/uL (150-450); RED BLOOD COUNT 3.89 10^6/uL (4.00-5.40); RED CELL DISTRIBUTION WIDTH 13.7 % (11.5-14.5); WHITE BLOOD COUNT 7.1 10^3/uL (4.0-10.0)
[2018-10-06 23:29] LABS: INR 0.91; PROTHROMBIN TIME 12.3 SECONDS (12.1-14.4)
[2018-10-06 23:30] LABS: PARTIAL THROMBOPLASTIN TIME 28.2 SECONDS (25.4-37.6)
[2018-10-06 23:46] LABS: ANION GAP 8 MEQ/L (8-16); BLOOD UREA NITROGEN 21 MG/DL (7-18); CALCIUM LEVEL 8.5 MG/DL (8.5-10.1); CARBON DIOXIDE LEVEL 29 MEQ/L (21-32); CHLORIDE LEVEL 92 MEQ/L (98-107); CPK CREATINE PHOSPHOKINASE 116 U/L (26-192); CREATININE FOR GFR 1.05 MG/DL (0.55-1.30); GLOMERULAR FILTRATION RATE 59.3 (>58); GLUCOSE, FASTING 594 MG/DL (70-100); MB/CK RELATIVE INDEX 2.07 (< OR =4); SODIUM LEVEL 129 MEQ/L (136-145); TROPONIN I < 0.02 NG/ML (< 0.10)
[2018-10-06] MEDS: NS 1,000 ML IV (23:49)
[2018-10-06] MEDS: HumuLIN R (REGULAR) INSULIN (NovoLIN R) **100U/ML** PER UNIT IV (23:59)
[2018-10-07] MEDS: PERCOCET 5MG/325MG TAB PO (00:15)
[2018-10-07] MEDS ORDERED: ACETAMINOPHEN TAB 650MG DOSE (2X325MG) PO (00:45)
[2018-10-07] MEDS ORDERED: GLUCOSE 4 GM CHEW TABLET PO (01:00)
[2018-10-07] MEDS ORDERED: DEXTROSE 50% 50 ML SYRINGE IV (01:00)
[2018-10-07] MEDS ORDERED: GLUCAGON FOR INJ 1 MG VIAL (J1610) SC (01:00)
[2018-10-07] MEDS ORDERED: QUEtiapine FUMARATE 100 MG TAB PO (01:35)
[2018-10-07] MEDS: NORCO, ANEXSIA 5/325MG TABLET (HYDROcodone/ACETAMINOPHEN) PO ×5 (03:25→20:40)
[2018-10-07] MEDS: FERROUS SULFATE 325MG TAB PO ×2 (03:25→20:31)
[2018-10-07] MEDS: SERTRALINE 100 MG TAB PO ×2 (03:26→20:32)
[2018-10-07] MEDS: PANTOPRAZOLE 40MG TAB (PROTONIX) PO ×2 (03:26→20:34)
[2018-10-07] MEDS: CARVedilol 12.5 MG TAB PO ×3 (03:26→20:32)
[2018-10-07] MEDS: ROSUVASTATIN 10 MG TAB (CRESTOR) PO ×2 (03:27→20:31)
[2018-10-07] MEDS: MONTELUKAST 10 MG TAB PO ×2 (03:27→20:33)
[2018-10-07] MEDS: PREGABALIN 100 MG CAP (LYRICA) PO ×3 (03:27→20:32)
[2018-10-07] MEDS: lamoTRIgine 100MG TAB PO ×2 (03:27→20:32)
[2018-10-07] MEDS: POTASSIUM CHLORIDE 10 MEQ SR TABLET PO ×2 (03:28→20:33)
[2018-10-07] MEDS: APIXABAN 5 MG TAB (ELIQUIS) PO ×3 (03:28→20:33)
[2018-10-07] MEDS: TAMSULOSIN 0.4 MG CAP PO ×2 (03:29→20:32)
[2018-10-07] MEDS: LEVEMIR (INSULIN DETEMIR) 1 UNITS/0.01ML SC ×4 (03:29→21:04)
[2018-10-07] MEDS: NS 1,000 ML IV ×3 (03:29→20:30)
[2018-10-07 03:37] LABS: BEDSIDE GLUCOSE 407 MG/DL (70-105)
[2018-10-07] MEDS: rOPINIRole 1MG TAB PO ×2 (03:51→18:18)
[2018-10-07] MEDS: valACYclovir HCL 500 MG TAB PO ×4 (03:52→20:32)
[2018-10-07] MEDS: QUEtiapine FUMARATE 200 MG TAB PO ×2 (03:52→21:03)
[2018-10-07] MEDS: MAGNESIUM CHLORIDE 64 MG TABCR (SLO MAG) PO ×2 (03:52→20:34)
[2018-10-07 07:12] LABS: HEMATOCRIT 30.8 % (36.0-47.0); HEMOGLOBIN 10.5 g/dl (12.0-15.5); MEAN CORPUSCULAR HEMOGLOBIN 28.5 pg (27.0-33.0); MEAN CORPUSCULAR HGB CONC 34.1 g/dl (32.0-36.5); MEAN CORPUSCULAR VOLUME 83.5 fl (80.0-96.0); PLATELET COUNT, AUTOMATED 237 10^3/uL (150-450); RED BLOOD COUNT 3.69 10^6/uL (4.00-5.40); RED CELL DISTRIBUTION WIDTH 13.7 % (11.5-14.5); WHITE BLOOD COUNT 6.8 10^3/uL (4.0-10.0)
[2018-10-07 07:39] LABS: ANION GAP 5 MEQ/L (8-16); BLOOD UREA NITROGEN 26 MG/DL (7-18); CALCIUM LEVEL 8.6 MG/DL (8.5-10.1); CARBON DIOXIDE LEVEL 28 MEQ/L (21-32); CHLORIDE LEVEL 95 MEQ/L (98-107); CHOLESTEROL LEVEL 147 MG/DL (<200); CHOLESTEROL RISK RATIO 3.195 (<5); CPK CREATINE PHOSPHOKINASE 94 U/L (26-192); CREATININE FOR GFR 1.17 MG/DL (0.55-1.30); GLOMERULAR FILTRATION RATE 52.3 (>58); GLUCOSE, FASTING 650 MG/DL (70-100); HDL CHOLESTEROL 46 MG/DL (>40); LDL CHOLESTEROL 51 MG/DL (<100); NON-HDL-C 101 MG/DL; POTASSIUM SERUM 5.9 MEQ/L (3.5-5.1); SODIUM LEVEL 128 MEQ/L (136-145); TRIGLYCERIDES LEVEL 248 MG/DL (<150); TROPONIN I < 0.02 NG/ML (< 0.10)
[2018-10-07] MEDS: HumaLOG INSULIN (NovoLOG) PER UNIT SC ×4 (08:06→20:34)
[2018-10-07 08:40] LABS: BEDSIDE GLUCOSE 562 MG/DL (70-105)
[2018-10-07 10:47] LABS: BEDSIDE GLUCOSE 583 MG/DL (70-105)
[2018-10-07] MEDS: SOD POLYSTYRENE SULFONATE SUSP 15 GM/60 ML UD PO (10:55)
[2018-10-07] MEDS: DULoxetine 30 MG CAP (CYMBALTA) PO (10:55)
[2018-10-07] MEDS: predniSONE 20 MG TAB PO ×2 (10:56)
[2018-10-07 12:15] LABS: BEDSIDE GLUCOSE 539 MG/DL (70-105)
[2018-10-07 12:55] LABS: ANION GAP 7 MEQ/L (8-16); BLOOD UREA NITROGEN 33 MG/DL (7-18); CALCIUM LEVEL 8.5 MG/DL (8.5-10.1); CARBON DIOXIDE LEVEL 27 MEQ/L (21-32); CHLORIDE LEVEL 96 MEQ/L (98-107); CREATININE FOR GFR 1.27 MG/DL (0.55-1.30); GLOMERULAR FILTRATION RATE 47.6 (>58); GLUCOSE, FASTING 592 MG/DL (70-100); POTASSIUM SERUM 4.8 MEQ/L (3.5-5.1); SODIUM LEVEL 130 MEQ/L (136-145)
[2018-10-07] MEDS: POLYVINYL ALCOHOL OPHTH SOLN 15 ML(LIQUITEARS) OS (13:03)
[2018-10-07 14:59] LABS: BEDSIDE GLUCOSE 451 MG/DL (70-105)
[2018-10-07] MEDS ORDERED: ALBUTEROL 90 MCG/ACT 8GM HFA INHALER INH (15:30)
[2018-10-07 16:27] LABS: CPK CREATINE PHOSPHOKINASE 86 U/L (26-192); MB/CK RELATIVE INDEX 2.33 (< OR =4); TROPONIN I < 0.02 NG/ML (< 0.10)
[2018-10-07] MEDS: PEN NEEDLE (USE WITH HUMULIN U-500 INSULIN PEN) XX (17:30)
[2018-10-07 17:51] LABS: BEDSIDE GLUCOSE 442 MG/DL (70-105)
[2018-10-07] MEDS: HUMULIN R U-500 KWIKPEN 500UNITS/ML 3ML SYRINGE (J1815 PER 5UNITS) SC (18:18)
[2018-10-07 20:08] LABS: BEDSIDE GLUCOSE 531 MG/DL (70-105)
[2018-10-07] MEDS: traZODone 50 MG TAB PO (20:31)
[2018-10-07] MEDS: BENAZEPRIL 20 MG TAB PO (20:33)
[2018-10-07] MEDS: amLODIPine 10 MG TAB PO (20:33)
[2018-10-07] MEDS: FAMOTIDINE 20 MG TAB PO (20:34)
[2018-10-07] MEDS ORDERED: HumaLOG INSULIN (NovoLOG) PER UNIT SC (21:00)
[2018-10-07 23:40] LABS: CPK CREATINE PHOSPHOKINASE 87 U/L (26-192); MB/CK RELATIVE INDEX 2.76 (< OR =4); TROPONIN I < 0.02 NG/ML (< 0.10)
[2018-10-08] MEDS: NORCO, ANEXSIA 5/325MG TABLET (HYDROcodone/ACETAMINOPHEN) PO ×4 (00:31→12:45)
[2018-10-08] MEDS: rOPINIRole 1MG TAB PO (00:31)
[2018-10-08] MEDS: NS 1,000 ML IV (05:35)
[2018-10-08 05:38] LABS: HEMATOCRIT 29.2 % (36.0-47.0); HEMOGLOBIN 9.7 g/dl (12.0-15.5); MEAN CORPUSCULAR HEMOGLOBIN 28.1 pg (27.0-33.0); MEAN CORPUSCULAR HGB CONC 33.2 g/dl (32.0-36.5); MEAN CORPUSCULAR VOLUME 84.6 fl (80.0-96.0); PLATELET COUNT, AUTOMATED 282 10^3/uL (150-450); RED BLOOD COUNT 3.45 10^6/uL (4.00-5.40); RED CELL DISTRIBUTION WIDTH 14.1 % (11.5-14.5); WHITE BLOOD COUNT 9.4 10^3/uL (4.0-10.0)
[2018-10-08 06:18] LABS: ANION GAP 7 MEQ/L (8-16); BLOOD UREA NITROGEN 35 MG/DL (7-18); CALCIUM LEVEL 8.1 MG/DL (8.5-10.1); CARBON DIOXIDE LEVEL 26 MEQ/L (21-32); CHLORIDE LEVEL 104 MEQ/L (98-107); CREATININE FOR GFR 1.12 MG/DL (0.55-1.30); FREE THYROXINE INDEX 1.9 % (1.3-4.8); GLUCOSE, FASTING 269 MG/DL (70-100); POTASSIUM SERUM 3.9 MEQ/L (3.5-5.1); SODIUM LEVEL 137 MEQ/L (136-145); T UPTAKE 35 % (30-39); THYROID STIMULATING HORMONE 0.629 uIU/ML (0.358-3.740); THYROXINE (T4) 5.3 UG/DL (4.5-12.0)
[2018-10-08] MEDS: CYCLOBENZAPRINE 10 MG TAB PO (08:11)
[2018-10-08] MEDS: PEN NEEDLE (USE WITH HUMULIN U-500 INSULIN PEN) XX ×2 (09:33→12:43)
[2018-10-08] MEDS: HUMULIN R U-500 KWIKPEN 500UNITS/ML 3ML SYRINGE (J1815 PER 5UNITS) SC ×2 (09:33→12:43)
[2018-10-08] MEDS: APIXABAN 5 MG TAB (ELIQUIS) PO (09:34)
[2018-10-08] MEDS: LEVEMIR (INSULIN DETEMIR) 1 UNITS/0.01ML SC (09:34)
[2018-10-08] MEDS: valACYclovir HCL 500 MG TAB PO (09:34)
[2018-10-08] MEDS: PREGABALIN 100 MG CAP (LYRICA) PO (09:34)
[2018-10-08] MEDS: DULoxetine 30 MG CAP (CYMBALTA) PO (09:34)
[2018-10-08] MEDS: CARVedilol 12.5 MG TAB PO (09:35)
[2018-10-08] MEDS: predniSONE 20 MG TAB PO (09:45)
[2018-10-08] MEDS: INFLUENZA QUADRIVALENT PF VACCINE 0.5ML SYRINGE (90686) IM (09:46)
[2018-10-08 12:33] LABS: BEDSIDE GLUCOSE 224 MG/DL (70-105)
[2018-10-11 08:39] LABS: BEDSIDE GLUCOSE > 600 MG/DL (70-105)
== END 2018-10-08 14:03 | disposition home or self-care (01) | DRG 74 ==
LOC: M ED INP 10-07 00:35 → M PCU 10-07 02:42 → M ED 22:11
PROVIDERS: Internal Medicine
DX: G51.0 Bell's palsy (principal); D68.2 Hereditary deficiency of other clotting factors; I10 Essential (primary) hypertension; E11.65 Type 2 diabetes mellitus with hyperglycemia; Z79.01 Long term (current) use of anticoagulants; Z86.718 Personal history of other venous thrombosis and embolism; J45.909 Unspecified asthma, uncomplicated; K21.9 Gastro-esophageal reflux disease without esophagitis; L40.8 Other psoriasis; M79.7 Fibromyalgia; D50.9 Iron deficiency anemia, unspecified; G89.29 Other chronic pain; F31.9 Bipolar disorder, unspecified; F42.9 Obsessive-compulsive disorder, unspecified; G25.81 Restless legs syndrome; R56.9 Unspecified convulsions; Z79.899 Other long term (current) drug therapy; Z88.0 Allergy status to penicillin; Z91.040 Latex allergy status; Z91.038 Other insect allergy status; Z88.2 Allergy status to sulfonamides; Z88.8 Allergy status to other drugs, medicaments and biological substances; Z89.512 Acquired absence of left leg below knee; E11.319 Type 2 diabetes mellitus with unspecified diabetic retinopathy without macular edema; E11.21 Type 2 diabetes mellitus with diabetic nephropathy; E11.40 Type 2 diabetes mellitus with diabetic neuropathy, unspecified; K59.00 Constipation, unspecified; Q76.0 Spina bifida occulta

== ENCOUNTER 2018-11-10 12:01 | Day surgery (SDC) | payer OTHER ==
[~2018-11-10] VITALS: Ht 177.8 cm; Wt 121.6 kg
[~2018-11-10 12:01] MED LIST changes: +/ADVA50050; +/DULO30CA; +/DULO30CA PO; +/ESOM40CA; +/GLIP10TAB; +/INSULEV; +/LINE60TA; +/PANT40TA; +/TAMS4CA; +/ZOLP6ER; +ABIL15TA; +ABIL1TAB13 PO; +ACTOS45 PO; +ALBU17IN INH; +ALBUTEROL INHALATION; +ALPR1TAB3 PO; +AMBI10TA; +AMBI10TA PO; +AMIT10TA2; +AMIT25TA PO; +AMIT25TA2; +AMIT50TA PO; +AMIT75TA PO; +AMITRIP25 PO; +AMITRIP50 PO; +AMLO10TA5 PO; +AMLO5TAB6 PO; +AMMO12CR4 TOP; +ASPI1TAB PO; +ASTELIN NASAL; +ATEN100T PO; +ATEN50TA2 PO; +AVEL1TAB3 PO; +BABY81CH; +BABY81CH OR; +BACITAB PO; +BACT2CRE TOP; +BACT800T5 PO; +BENA20TA PO; +BENA20TA8 PO; +BENA25CA2 PO; +BENA25TA4 PO; +BENA40TA OR; +BENA40TA7 PO; +BETA1OI TOP; +BYDU1INJ SC; +CAPSAICIN TOP; +CARV12.5 PO; +CARV25TA PO; +CARV6.25 PO; +CATAPRESS PO; +CEFA1VL IV; +CEFT1INJ65 IV; +CEPH500C PO; +CETI10TA PO; +CHLO125TA PO; +CLAR1TAB2 PO; +CLIN300C2 PO; +CLINDAMYCIN PO; +COLA100C5 PO; +COLA50CA PO; +CORE12.5 PO; +CORE25TA PO; +COUGH SYRUP PO; +COUM1TAB17 PO; +COUM1TAB19 PO; +COUM2.5T17 PO; +COUM2TAB22 PO; +CRES10TA32 PO; +CRES40TA PO; +CYCL10TA PO; +CYMBALTA60 PO; +DARV100T; +DEPA250T32 PO; +DEXI60CA2 PO; +DIAZ5TAB PO; +DICL50TA2 PO; +DICL50TAB PO; +DICL5SOL TOP; +DICY10CA13 PO; +DICY1CAP8 PO; +DIFL200T PO; +DILA2TAB; +DIOV80TA3 PO; +DIPH50CA PO; +DULC5TAB PO; +DULO1CAP2 PO; +DULO1CAP3 PO; +DULO30CA PO; +ELIQ5TAB PO; +ELMIRON; +EPI SC; +EPIP0.3I2 SC; +ERYT PO; +ESZO1TAB6 PO; +FERR1TAB8 PO; +FLOM0.4C39 PO; +FLOMAX 0.4 PO; +FLON1SPR; +FLUC200T2 PO; +FOCALIN XR OR; +FURO20TA2 PO; +FURO40TA2 PO; +FURO80TA2 PO; +GARAMYCIN TOP; +GENT0.1C2 TOP; +GENT1OI TOP; +GEOD20CA14; +GLUCOTRO10 PO; +GLUCULTRA TOPICAL; +HABITROL14 TOPICAL; +HABITROL2 TOPICAL; +HABITROL7 TOPICAL; +HEPA100PFS IV; +HEPA100SY IV; +HEPA10IN19 IV; +HEPA10PFSY IV; +HUMA100I3 SC; +HUMA50IN4 SC; +HUMA50IN4 SQ; +HUMUINJ; +HUMUINJ SQ; +HUMULIN U; +HUMULINR SC; +HYDR-3719 PO; +HYDR25TA6 OR; +HYDR25TAB PO; +IMIT6INJ; +IMIT6INJ SC; +IMIT6KIT2 SC; +IMMUN20IV2 IV; +IMMUNOGLOBULIN IV; +INSUHUMDS SC; +INSULADS SC; +INSULANT; +INSULANT SC; +INSULIN 70/30; +INSULIN NPH; +INSUR50VL SC; +INVA1INJ IV; +INVO100T PO; +JANUVIA; +JANUVIA100 PO; +K-TA10TA PO; +KEFL500C17 PO; +KLON0.5T OR; +KLONOPIN PO; +KLOR10TA76 PO; +KLOR1TAB77 PO; +KLOR20TA42 PO; +LAMI1TAB9 PO; +LAMO100T PO; +LAMO10TA PO; +LAMO200T2 PO; +LANTUS SQ; +LASI20TA; +LASI20TA OR; +LASI40TA9 PO; +LEVA1.25 INH; +LEVA12INH INH; +LEVA500T; +LEVA750T7 PO; +LEVO500T3 PO; +LIDO1OIN2 TOP; -LIDOCAINE 1% MDV 20ML VIAL As Ordered; +LIDODERM TOPICAL; +LINE60TAB PO; +LISI20TA5; +LISI5TAB; +LISINOPR5 PO; +LOMO2.5T PO; +LOPE2CAP PO; +LOPI600T; +LOPID600 PO; +LORTAB10 PO; +LOTE10TA13 PO; +LOVE0.01 SC; +LUNE2TAB23 PO; +LUNE3TAB36 PO; +LUNESTA PO; +LYRI200C; +LYRI300C; +LYRI300C PO; +LYRICA100 PO; +LYRICA75 PO; +MA; +MACR100C43 PO; +MAG-TAB; +MAGIC MOUTHWASH; +MAGN1TAB25 PO; +MAGN400T PO; +MAGN64TASA PO; +MECL-68 PO; +MECL1CHW2 PO; +METH10TA2 PO; +MOBIC15 PO; +MONT10TA2 PO; +NAPR250T4 PO; +NEEDLEBB SC; +NEUR100C PO; +NEXIUM40 PO; +NICO14DI3 TD; +NICO21DI4; +NIZORAL200 PO; +NORC10TA21 PO; +NORMINJ22 IV; +NORT25CA2 PO; +NORT50CA PO; +NORT75CA2 PO; +NOVOLIN N; +NOVOLOG100 MG/ML; +NS 1,000 ML IV ONE; +NYST1POW9 TOP; +NYSTAT100 PO; +OMEP40CA2 PO; +OXYC-517 PO; +OXYC10TA97 PO; +PATIENT COMMENTS; +PAXI10TA; +PAXI10TA2 PO; +PAXI30TA; +PAXI40TA; +PAXI40TA OR; +PERC10TA26 PO; +PERC5TAB12 PO; +PERC5TAB8 PO; +PERCOCET PO; +POLY33503 PO; +POTA20TA2 OR; +PRAM1TAB7 PO; +PRED10TA2 PO; +PRED20TAB PO; +PREDNISONE DOSE PACK PO; +PREG100CA; +PRIL40CA; +PRIL40CA PO; +PROB250C PO; +PROBCAP4 PO; +PROV90AE; +QUET1TAB10 PO; +QUET30TA PO; +QUET30XR OR; +RANI150T PO; +RANI15TA PO; +REFR0.5D8 OU; +REGL5TAB2 PO; +REQU4TAB3 OR; +REQU4TAB3 PO; +REQUIP1 PO; +REQUIP2 PO; +REST0.05 OU; +RISP4TAB33 PO; +ROBA500T PO; +ROPI2TAB PO; +ROPI4TAB3 PO; +ROZE8TAB16 PO; +ROZEREM PO; +SALI0.9I2 IV; +SANT250O8 TOP; +SENN1TAB10 PO; +SENN8.6T76 PO; +SENO8.6T10 PO; +SERO1TAB2 PO; +SERO400T; +SERO400T OR; +SERO400T3; +SEROQUE200 PO; +SERT-138 PO; +SERT50TA PO; +SING10TA32 PO; +SKEL800T5; +SLOWMAG PO; +SLOWTAB; +SOMA350T PO; +SPACER -; +SPIR-10 PO; +SYMB16INH INH; +SYMB80AE INH; +SYMB80INH INH; +TERB250T12 PO; +TESS100C PO; +TIGA300C; +TIGAN PO; +TOPA1TAB PO; +TOPI100T9 PO; +TOPI25TA2 OR; +TORS10TA3 PO; +TORS20TA2 PO; +TOUJ1.2I SC; +TOUJ300I2 SC; +TOUJ300I2 SQ; +TRAM50TA2; +TRAM50TA2 PO; +TRAZ-160 PO; +TRAZ-163 PO; +TRES1INJ SC; +TRES1INJ SQ; +TRES1INJ2 SC; +TRIA1CR TOP; +TRIL600T; +TRIL600T PO; +TYLE325T5 PO; +TYLENOL #3; +ULTR50TA8 PO; +ULTRAM50 PO; +VALA1TAB2 PO; +VALI10TA PO; +VALI5TAB PO; +VALISONE TOP; +VALT500T PO; +VALTREX100 PO; +VANC10005 IV; +VANC125C2 PO; +VANC1INJ IV; +VENTAER; +VENTAER INH; +VENTOLININ INHALATION; +VERA40TA PO; +VIBR100C; +VICO5TAB; +VICO5TAB OR; +VICTOZA SQ; +WARF-23 PO; +WARF-58 PO; +WARF4TAB51 PO; +WARF4TAB52 PO; +WELLTAB38 PO; +WELLTAB4 PO; +XANA0.5T; +XANA1TAB2; +XANA2TAB; +XANA2TAB2; +XANA2TAB2 OR; +XARE20TA PO; +XIID5DRO OU; +XOPE1.252; +XOPE1.252 INH; +XOPENEX125 NEB; +Z PACK PO; +ZANA4TAB PO; +ZIPR80CAP PO; +ZOFR4TAB16 PO; +ZOFR8TAB; +ZOFR8TAB24 PO; +ZYRT10CA5 PO; +ZYVO1TAB PO; +[UNRECOGNIZED DRUG - CODE] SC; +[UNRECOGNIZED DRUG - CODE] SC; +[UNRECOGNIZED DRUG - CODE] SC; +[UNRECOGNIZED DRUG - CODE] SL; +[UNRECOGNIZED DRUG - OTHER]; +[UNRECOGNIZED DRUG - OTHER]; +[UNRECOGNIZED DRUG - OTHER]; +[UNRECOGNIZED DRUG - OTHER] PO; +[UNRECOGNIZED DRUG - OTHER] PO; +[UNRECOGNIZED DRUG - OTHER] SC; +benzapril PO; +elavil; +elmiron; +omnicef PO; +paxil; +percocet
[2018-11-10] MEDS ORDERED: LIDOCAINE 2% INJ 100 MG/5 ML SDV (FOR ANES.) As Ordered ONE (12:51)
[2018-11-10] MEDS ORDERED: PROPOFOL 200 MG/20 ML VIAL As Ordered ONE (12:51)
--- NOTE | 2018-11-10 14:07 | ROOR ---
Patient Name: Rebeca Soliz Procedure Date: 11/10/2018 1:48 PM Date of : 1970 Age: 48 Room: [facility] Gender: Female Note Status: Finalized Procedure: Upper GI endoscopy Indications: Heartburn, Suspected esophageal reflux, Gastroparesis Providers: Ben MOSQUEDA MD Referring MD: Mireille Quijano MD Requesting Provider: Medicines: Monitored Anesthesia Care Complications: No immediate complications. Procedure: Pre-Anesthesia Assessment: - The heart rate, respiratory rate, oxygen saturations, blood pressure, adequacy of pulmonary ventilation, and response to care were monitored throughout the procedure. The Endoscope was introduced through the mouth, and advanced to the second part of duodenum. The upper GI endoscopy was accomplished without difficulty. The patient tolerated the procedure well. Findings: The esophagus was normal. The stomach was normal. (large volume/compliant) The examined duodenum was normal. Impression: - Normal esophagus. - Normal stomach. - Normal examined duodenum. - No specimens collected. Recommendation: - Continue present medications. - Gastroparesis diet: - Eat smaller, more frequent meals throughout the day. - Low fat diet. - Liquid/soft foods are tolerated better than solid foods. - Low fiber/well cooked vegetables are tolerated better than high fiber/fibrous foods/raw vegetables. - Avoid medications that inhibit gastric/intestinal motility such as narcotic medications. Bne Mosqueda MD Ben MOSQUEDA MD 11/10/2018 2:06:38 PM This report has been signed electronically. Number of Addenda: 0 Note Initiated On: 11/10/2018 1:48 PM Estimated Blood Loss: Estimated blood loss: none.
[2018-11-10 14:37] VITALS: BP 118/77
== END 2018-11-10 14:44 | disposition home or self-care (01) ==
LOC: M OPP 12:01
PROVIDERS: ATTEND Internal Medicine Gastroenterology
DX: K31.84 Gastroparesis (principal); R12 Heartburn; I10 Essential (primary) hypertension; E10.9 Type 1 diabetes mellitus without complications; K44.9 Diaphragmatic hernia without obstruction or gangrene; G47.30 Sleep apnea, unspecified; Z79.4 Long term (current) use of insulin; Z79.899 Other long term (current) drug therapy; Z88.0 Allergy status to penicillin; Z88.2 Allergy status to sulfonamides; Z88.8 Allergy status to other drugs, medicaments and biological substances; Z91.040 Latex allergy status; Z91.048 Other nonmedicinal substance allergy status; Z91.018 Allergy to other foods; Z86.19 Personal history of other infectious and parasitic diseases; Z86.718 Personal history of other venous thrombosis and embolism; Z80.0 Family history of malignant neoplasm of digestive organs; Z80.42 Family history of malignant neoplasm of prostate

== ENCOUNTER → 2019-01-24 | Outpatient (CLI) | payer OTHER ==
[~2019-01-24] MED LIST changes: -/ADVA50050; -/DULO30CA; -/DULO30CA PO; -/ESOM40CA; -/INSULEV; -/LINE60TA; -/PANT40TA; -/TAMS4CA; +ADVA1AER2; -AMMO12CR4 TOP; +AMMO12CR7 TOP; -ASPI1TAB PO; +ASPI81TA26 PO; +CEFA1INJ19 IV; -CEFA1VL IV; +CRES10TA PO; -CRES10TA32 PO; +CYMB1CAP5; +CYMB1CAP5 PO; -DULO30CA PO; +DULO30CA9 PO; -ERYT PO; +FLOM0.4C39; +HYDR-2541 PO; -HYDR25TAB PO; +LAMO100T80 PO; -LAMO10TA PO; +LEVE0.01; +LINE1TAB PO; -LINE60TAB PO; -MAGN1TAB25 PO; +MAGN1TAB26 PO; +MECL1CHW PO; -MECL1CHW2 PO; +NEXI1CAP3; -NORC10TA21 PO; +NORC1TAB5 PO; -NS 1,000 ML IV ONE; +ONDA-227; +PROT1TAB2; -QUET30XR OR; +SERO300T20 OR; +SERT-141 PO; -SERT50TA PO; +TRIA0.1C60 TOP; -TRIA1CR TOP; -VANC125C2 PO; +VANC125C3 PO; -ZOFR8TAB; +ZYVO100T; +[UNRECOGNIZED DRUG - CODE] PO
--- NOTE | 2019-01-24 16:02 | REPMRS ---
Patient History The patient states she had a clinical breast exam in October 2018. Family history of prostate cancer at age 77 in father, colorectal cancer at age 80 in maternal grandfather. Radio exam Breast Specimen of the left breast, December 05, 2017. Stereotatic Loc for ea Lesion of the left breast, December 05, 2017. Digital Mammo Screening Bilat: January 24, 2019 - Exam #: [id number] Bilateral CC and MLO view(s) were taken. Technologist: Lisa North Technologist Prior study comparison: October 25, 2017, digital mammo diagnostic bilateral performed at [facility]. September 29, 2015, bilateral digital mammo screening bilat performed at [facility]. May 30, 2014, digital mammo diagnostic bilateral performed at [facility]. FINDINGS: There are scattered fibroglandular densities. There has been no change in the appearance of the mammogram from the prior studies. There is a mild amount of scattered fibroglandular density which is fairly symmetric. There is no interval development of dominant mass, architectural distortion, or clustered microcalcification suggestive of malignancy. 3-D tomosynthesis shows no additional findings. Assessment: BI-RADS/ACR category 2 mammogram. Benign Findings. Recommendation Routine screening mammogram of both breasts in 1 year (for women over age 40). This patient's Lifetime Breast Cancer RIsk is estimated at 13.1 %. This mammogram was interpreted with the aid of an FDA-approved computer-aided dectection system. Electronically Signed By: Loi Ruiz MD 01/24/19 [id number]
== END ==
LOC: M RAD 13:18
PROVIDERS: ATTEND Family Medicine
DX: Z12.31 Encounter for screening mammogram for malignant neoplasm of breast (principal); Z80.42 Family history of malignant neoplasm of prostate; Z80.0 Family history of malignant neoplasm of digestive organs

== ENCOUNTER → 2019-01-24 | Outpatient (CLI) | payer OTHER ==
--- NOTE | 2019-01-24 17:08 | REP ---
MRI RIGHT ELBOW: TECHNIQUE: Multiple sequences in the axial, coronal and sagittal planes. The biceps, triceps, brachialis and brachioradialis appear intact. However, there is diffuse ill-defined edema throughout the soft tissues surrounding the elbow, a nonspecific finding. There is no joint effusion. There is no abnormal signal in the common flexor or extensor tendons, with no evidence of epicondylitis, both medially and laterally. The collateral ligaments are intact. There is no bone marrow edema or occult fracture. There is no ganglion cyst. I see no osteochondral defect. The ulnar nerve appears displaced medially out of the region of the cubital tunnel. This could be due to prior surgical nerve release. There is mild increased signal in the ulnar nerve which could represent neuritis, although the finding has also been described in asymptomatic patients. IMPRESSION: Diffuse ill-defined soft tissue edema surrounding the elbow. This is a nonspecific finding and needs clinical correlation. Otherwise no evidence of tendon or ligament tear. No occult fracture. The ulnar nerve appears displaced medially out of the region of the cubital tunnel. This could be due to prior surgical nerve release. There is mild increased signal in the ulnar nerve which could represent neuritis, although the finding has also been described in asymptomatic patients. Electronically Signed by Jomar Akbar MD 01/25/2019 08:35 P
== END ==
LOC: M RAD 13:12
PROVIDERS: ATTEND Orthopaedic Surgery Sports Medicine
DX: M25.521 Pain in right elbow (principal); M79.89 Other specified soft tissue disorders

== ENCOUNTER → 2019-02-20 | Outpatient (CLI) | payer OTHER ==
--- NOTE | 2019-02-20 14:16 | REP ---
MRI LUMBAR SPINE WITHOUT CONTRAST: HISTORY: Low back pain. Right-sided sciatica. Comparison MRI study is from July 23, 2014. TECHNIQUE: Sagittal and axial T1- and T2-weighted scans are acquired in the usual fashion with and without fat saturation. Sequences include spin echo, turbo spin echo, and STIR imaging sequences. MRI FINDINGS: There is slight straightening of the normal lumbar lordosis. Lumbar vertebral body heights are preserved. Alignment is normal. There is no evidence of spondylolysis or spondylolisthesis. The tip of the conus medullaris remains normal in position and appearance at T12-L1. Fatty infiltration and slight thickening of the filum terminalis is again noted unchanged. There is degenerative narrowing of the L3-4 intervertebral disc space. This is slightly more pronounced than on the prior study. There is diffuse disc bulging of the posterior margin of the L3-4 disc space which is more prominent as well. There is moderate degree of central canal stenosis present as a result of this in combination with developmentally short pedicles and mild ligamentum flavum and facet hypertrophy. AP dimension of the thecal sac in the midline at the L3-4 level is 7 mm. In 2014, this measurement was 9 mm. There is mild bulging of the foraminal segments of the disc as well right more so than left. Nerve roots show no compression however. At L5 S1, there is some degenerative narrowing of the disc with decreased signal intensity. There is mild diffuse disc bulging but no thecal sac compression. Facet hypertrophy is present bilaterally at L5-S1. These findings are essentially unchanged. No neural foraminal narrowing is seen. At L4-5, there is a minimal diffuse disc bulging. Canal size is borderline unchanged. No focal disc protrusion is seen. At L2-3 and L1-2, no additional abnormality is seen. IMPRESSION: 1. Moderate central canal stenosis has developed and L3-4 due to diffuse disc bulging associated with disc degeneration and developmentally short pedicles. 2. Fatty infiltration and slight thickening of the filum terminalis is again seen unchanged. 3. Degenerative disc changes at and mild facet hypertrophy again noted at L5-S1 essentially unchanged. Electronically Signed by Obdulio Ruiz MD 02/20/2019 10:29 P
== END ==
LOC: M RAD 10:49
PROVIDERS: ATTEND Family Medicine
DX: M51.26 Other intervertebral disc displacement, lumbar region (principal); M51.37 Other intervertebral disc degeneration, lumbosacral region

== ENCOUNTER 2019-04-20 11:33 | Emergency (ER) | payer OTHER ==
[~2019-04-20] VITALS: Ht 177.8 cm; Wt 113.6 kg
[~2019-04-20 11:33] MED LIST changes: -DULO1CAP2 PO; -DULO1CAP3 PO; +DULO1CAP5 PO; +DULO1CAP6 PO; -TRAZ-160 PO; +TRAZ-252 PO
--- NOTE | 2019-04-20 12:09 | REP ---
Clinical: trauma. Comparison: 10/06/2018 Findings: Age-related atrophy and microvascular ischemic changes are appreciated. The ventricles and sulci are symmetric. Akbar-white differentiation is maintained. There is no evidence for acute intracranial hemorrhage, mass/mass effect, pathology or infarction. No extra-axial fluid collection. Calvarium is intact. Paranasal sinuses and mastoid air cells are clear. Impression: Age related atrophy and microvascular ischemic changes. No acute intracranial hemorrhage, infarction, or mass/mass effect. Electronically Signed by Clint Sullivan MD 04/20/2019 12:01 P
--- NOTE | 2019-04-20 12:18 | REP ---
Clinical: Trauma. Technique: Axial noncontrast images from the skull base to the thoracic inlet with coronal and sagittal re-formations. Findings: Sagittal re-formations best demonstrate a corner fracture involving the anterior inferior margin of the C2 vertebral body (image 37 series 304). Spinal canal is patent and maintained. No other fracture or subluxation noted. Remainder examination demonstrates mild/moderate degenerative disc osteophyte complexes including partial fusion of C5-6. Impression: Minimally displaced corner fracture involving the anterior base of C2. Electronically Signed by Clint Sullivan MD 04/20/2019 12:10 P
[2019-04-20 12:42] VITALS: BP 132/72
[2019-04-20] MEDS ORDERED: PERCOCET 5MG/325MG TAB PO ONE (12:45)
[2019-04-20] MEDS ORDERED: PERC5TAB12 PO (12:45)
== END 2019-04-20 13:03 | disposition home or self-care (01) ==
LOC: EDBD 11:33 → M ED 11:33
DX: S12.110A Anterior displaced Type II dens fracture, initial encounter for closed fracture (principal); S80.811A Abrasion, right lower leg, initial encounter; I67.82 Cerebral ischemia; V43.52XA Car driver injured in collision with other type car in traffic accident, initial encounter; Y92.410 Unspecified street and highway as the place of occurrence of the external cause; E11.9 Type 2 diabetes mellitus without complications; Q05.9 Spina bifida, unspecified; Z88.0 Allergy status to penicillin; Z88.2 Allergy status to sulfonamides; Z91.040 Latex allergy status; Z88.1 Allergy status to other antibiotic agents; Z88.8 Allergy status to other drugs, medicaments and biological substances; Z91.018 Allergy to other foods; Z91.048 Other nonmedicinal substance allergy status; Z98.1 Arthrodesis status; Z79.899 Other long term (current) drug therapy; Z79.01 Long term (current) use of anticoagulants; Z79.4 Long term (current) use of insulin

== ENCOUNTER 2019-05-22 17:21 | Inpatient (IN) | payer OTHER ==
[~2019-05-22] VITALS: Ht 177.8 cm; Wt 119.4 kg
[~2019-05-22 17:21] MED LIST changes: -HUMA50IN4 SQ
[2019-05-22] MEDS ORDERED: LIDOCAINE 2% 5ML JELLY UROJET TOP ONE (18:15)
--- NOTE | 2019-05-22 19:02 | REPVR ---
EXAM: CT Abdomen and Pelvis Without Contrast EXAM DATE/TIME: 05/22/2019 6:23 PM CLINICAL HISTORY: 48 years old, female; Abdominal pain; Generalized; Additional info: Abd distention TECHNIQUE: Imaging protocol: Axial computed tomography images of the abdomen and pelvis without contrast. Coronal and sagittal reformatted images were created and reviewed. Radiation optimization: All CT scans at this facility use at least one of these dose optimization techniques: automated exposure control; mA and/or kV adjustment per patient size (includes targeted exams where dose is matched to clinical indication); or iterative reconstruction. COMPARISON: CT ABD/PEL W/IV CONTRAST ONLY 03/20/2018 2:36 AM FINDINGS: Lungs: Minimal linear stranding and groundglass at the lung bases, likely due to atelectasis and/or scarring. Focal reticulonodular infiltrate in the right lower lobe, suggestive of small airway disease. Left lower lobe calcified granuloma. Mediastinum: Small hiatal hernia and mild nonspecific distal esophageal wall thickening, suggesting chronic reflux/esophagitis. Liver: Mild hepatomegaly. Mild hepatic steatosis. Gallbladder and bile ducts: Status post cholecystectomy. No biliary ductal dilatation. Pancreas: Unremarkable. Spleen: Coarse calcified splenic granulomata. Adrenals: Unremarkable. Kidneys and ureters: No mass. No radiodense calculi. No hydronephrosis. Stomach and bowel: Moderate amount of retained stool in the colon. No obstruction. No bowel wall thickening. No pneumatosis. Appendix: Findings suggestive of prior appendectomy. Intraperitoneal space: No free fluid. No organized fluid collection. No free air. Vasculature: Unremarkable. No aneurysm. Lymph nodes: Calcified left hilar lymph nodes, consistent with prior granulomatous disease. Small inguinal lymph nodes, likely reactive. No pathologically enlarged lymph nodes. Bladder: Mild circumferential urinary bladder wall thickening, likely secondary to underdistention. Reproductive: Status post hysterectomy. Bones/joints: No acute osseous abnormality. Osteopenia. Degenerative changes. Soft tissues: Mild subcutaneous stranding and skin thickening in the anterior abdominal wall, suggestive of cellulitis. No organized collection. IMPRESSION: 1. Limited noncontrast examination without CT evidence of acute intra-abdominal or pelvic pathology. 2. Additional findings, as above. Electronically signed by: Alber Morel On 05/22/2019 19:01:44 PM
--- NOTE | 2019-05-22 19:04 | REPVR ---
EXAM: US Duplex Right Lower Extremity Veins, Limited EXAM DATE/TIME: 05/22/2019 6:45 PM CLINICAL HISTORY: 48 years old, female; Pain; Leg, lower; Right; Additional info: Edema TECHNIQUE: Imaging protocol: Real-time Duplex ultrasound of the Right Lower Extremity with 2-D dobbs scale, color Doppler flow and spectral waveform analysis with image documentation. Limited exam was focused on the right lower extremity veins. COMPARISON: US Duplex, Ext,LOWER veins,unilat 10/27/2017 2:14 PM FINDINGS: Right deep veins: Unremarkable. The common femoral, femoral, proximal profunda femoral, popliteal and posterior tibial veins are patent without thrombus. Normal Doppler waveforms. Normal compressibility and/or augmentation response. Right superficial veins: Unremarkable. Saphenofemoral junction is patent without thrombus. Soft tissues: Unremarkable. IMPRESSION: No sonographic evidence of deep vein thrombosis. Electronically signed by: Alber Morel On 05/22/2019 19:03:52 PM
[2019-05-22 19:39] LABS: BASO % 0.3 % (0.0-1.0); EOS # 0.3 10^3/uL (0.0-0.50); EOS % 2.5 % (0.0-3.0); HEMATOCRIT 34.8 % (36.0-47.0); HEMOGLOBIN 12.3 g/dl (12.0-15.5); LYMPH # 2.1 10^3/uL (1.5-4.5); LYMPH % 18.4 % (24.0-44.0); MEAN CORPUSCULAR HEMOGLOBIN 30.2 pg (27.0-33.0); MEAN CORPUSCULAR HGB CONC 35.3 g/dl (32.0-36.5); MEAN CORPUSCULAR VOLUME 85.5 fl (80.0-96.0); MONO # 0.8 10^3/uL (0.0-0.8); MONO % 6.7 % (0.0-5.0); NEUTROPHILS # 8.1 10^3/uL (1.8-7.7); NEUTROPHILS % 71.1 % (36.0-66.0); PLATELET COUNT, AUTOMATED 202 10^3/uL (150-450); RED BLOOD COUNT 4.07 10^6/uL (4.00-5.40); WHITE BLOOD COUNT 11.4 10^3/uL (4.0-10.0)
[2019-05-22 19:55] LABS: INR 1.14; PROTHROMBIN TIME 14.3 SECONDS (11.8-14.0)
[2019-05-22 20:06] LABS: BLOOD UREA NITROGEN 28 MG/DL (7-18); CALCIUM LEVEL 8.7 MG/DL (8.5-10.1); CARBON DIOXIDE LEVEL 31 MEQ/L (21-32); CHLORIDE LEVEL 99 MEQ/L (98-107); CREATININE FOR GFR 2.25 MG/DL (0.55-1.30); GLOMERULAR FILTRATION RATE 24.6 (>58); GLUCOSE, FASTING 171 MG/DL (70-100); POTASSIUM SERUM 4.8 MEQ/L (3.5-5.1); SODIUM LEVEL 137 MEQ/L (136-145)
[2019-05-22 20:07] LABS: ALT/SGPT 28 U/L (12-78); BILIRUBIN,DIRECT < 0.1 MG/DL (0.0-0.2); BILIRUBIN,TOTAL 0.2 MG/DL (0.2-1.0); CK-MB VALUE MASS 2.5 NG/ML (<3.6); CPK CREATINE PHOSPHOKINASE 169 U/L (26-192); LIPASE 165 U/L (73-393); MB/CK RELATIVE INDEX 1.48 (< OR =4); TOTAL PROTEIN 6.6 GM/DL (6.4-8.2); TROPONIN I 0.07 NG/ML (< 0.10)
[2019-05-22] MEDS ORDERED: NYST1POW9 TOP (21:02)
[2019-05-22] MEDS ORDERED: ALBU83IN INH (21:02)
[2019-05-22] MEDS ORDERED: TRAZ1TAB10 PO (21:02)
[2019-05-22] MEDS ORDERED: PROBCAP14 PO (21:02)
[2019-05-22] MEDS ORDERED: TORS20TA2 PO (21:02)
[2019-05-22] MEDS ORDERED: VITA1CAP25 PO (21:02)
[2019-05-22] MEDS ORDERED: COLLAGEN SUPPORT PO (21:02)
[2019-05-22] MEDS: NS 1,000 ML IV SCH (23:42)
--- NOTE | 2019-05-23 00:20 | HPEPDOC ---
[facility] Medical History & Physical Date of Admission May 23, 2019 Date of Service: May 23, 2019 Primary Care Physician: RIAZ LOPEZ MD Attending Physician: SINCERE ARAGON MD History and Physical TIME OF SERVICE 1230AM CHIEF COMPLAINT: Sent by well services operator for evaluation HISTORY OF PRESENT ILLNESS: Ms. Torres is a 48-year-old female who was sent by her well services operator for evaluation of worsening renal function. According to the patient, her GFR had declined. Per discussion with the ED attending Her BUN which was previously 12 is now 8, and the creatinine, which was previously 1.1, is now 2.5 . Upon further questioning the patient reported having a poor appetite, more itchy skin (she has psoriasis) and nausea with one episode of emesis yesterday. REVIEW OF SYSTEMS: 12 point review of systems negative except as listed in HPI PAST MEDICAL /SURGICAL HISTORY: 1. Insulin-dependent type 2 diabetes complicated by diabetic foot ulcers, neuropathy and retinopathy 2. Lumbar spondylolysis /Chronic lower back pain /Fibromyalgia. 3. Status post left below-knee amputation (BKA), wears prosthesis. 4. Iron deficiency anemia / Restless Leg sydrome 5. Factor V Leiden with prior DVTs and currently on Eliquis 6. Hepatic steatosis. 7. Hypogammaglobulinemia. 9. Chronic hypertension 10. Chronic asthma 11. Bipolar. 12. OCD. 13. Agoraphobia, anxiety. 14. Spina bifida occulta. 15. Temporal mandibular joint dysfunction bilaterally. 16. Psoriasis. 17. Abdominal adhesions. 18. Temporal lobe seizure. 19. Gastroesophageal reflux disease (GERD) s/p EGD 20. Herpes simplex virus. 21. Chronic Constipation 22. s/p Cervical discectomy 23. s/p Hysterectomy 24. s/p Cholecystectomy. 25. s/p Lumpectomy of right breast. 26 . s/p Multiple diagnostic laparoscopies 27. s/p Venous Port-a-Cath on the left chest 28 . s/p Peripheral inserted central catheter of both arms times three in the past. 29 . s/p Appendectomy 30 hx of Fecal transplant. SOCIAL HISTORY: Lives with her Denies drinking, smoking or recreational drug use. FAMILY HISTORY: Father from heart disease, Brother also had congenital heart disease. Mother had CVA ALLERGIES: Please see below. HOME MEDICATIONS: Please see below. PHYSICAL EXAMINATION: VITAL SIGNS: Temperature 96.5, pulse 84, blood pressure 149/79, pulse oximetry 96% on room air, respiratory rate 18 GENERAL APPEARANCE: Well-nourished, well-developed, not in apparent distress, wheel chair is at the bedside HEENT: Normocephalic, atraumatic, mucous members moist and pink CARDIOVASCULAR: regular rate and rhythm, no murmurs, rubs or gallops LUNGS:Here to auscultation bilaterally on room air MUSCULOSKELETAL: Range of motion intact 3. Extremities and left stump NEUROLOGICAL: CN II to 12 grossly intact, speech not dysarthric PSYCHIATRIC: Alert and oriented to person, place and time, able to understand and follow commands LABORATORY DATA: CBC was remarkable for WBC count of 11.4 Chemistries remarkable for a BUN of 28, creatinine of 2.25, GFR 24, glucose of 171 UA is remarkable for 3+ protein, 2+ glucose, trace ketones IMAGING: Bilateral lower extremity duplex is unremarkable. CT of the abdomen and pelvis urinary bladder wall thickening and Osteopenia but no acute process Renal ultrasound, the right kidney was 10.4, while the left kidney was 11.5 cm in length kidney . There were no mentions of the echogenicity of the kidneys. MICROBIOLOGY: Please see below. ASSESSMENT: Ms. Torres is a 48 year old female multiple medical problems including diabetes, hypertension, and asthma who will be admitted for evaluation of acute renal insufficiency. PLAN: 1. Acute Renal Failure Cause to be determined BUN and creatinine above baseline, and GFR is below baseline. Report of renal ultrasound and UA have been reviewed Plan: IVF / f/u ulytes for FENa or FEUrea, Phosphorous, 25 Vitamin D, Hepatitis Panel, PTH, Iron Panel w Ferritin, Ulytes for FENa, UPro:Cr ratio, protein immunoelectrophoresis / avoid nephrotoxic drugs (hold benzepril & torsemide) 2. Insulin-dependent type 2 diabetes complicated by diabetic foot ulcers, neuropathy and retinopathy Plan: f/u accuchecks, A1C, sliding scale insulin / patient can use her own Tresiba while admitted / hypoglycemia protocol 3. Lumbar spondylolysis /Chronic lower back pain /Fibromyalgia. Plan: Continue home meds 3.Iron deficiency anemia / Restless Leg sydrome Plan: Continue home meds 5. Factor V Leiden with prior DVTs Plan: c/w Bony 6. Chronic hypertension Plan: Continue home meds 10. Chronic asthma Plan: Continue home meds 11. Bipolar Disorder / OCD / Agoraphobia, anxiety. Plan: Continue home meds 12. Psoriasis Plan: Continue home meds 13. Gastroesophageal reflux disease (GERD) Plan: Continue home meds DVT prophylaxis with Eliquis DISPO: pending clinical course Vital Signs Vital Signs Date Time Temp Pulse Resp B/P (MAP) Pulse Ox O2 Delivery O2 Flow Rate FiO2 05/22/19 22:21 87 96 05/22/19 22:16 149/79 (102) 05/22/19 17:21 96.5 18 Room Air Laboratory Data Labs 24H Laboratory Tests 2 05/22/19 18:59: Urine Color YELLOW, Urine Appearance CLOUDYH, Urine pH 5.0, Urine Specific [place] 1.018, Urine Protein 3+H, Urine Glucose (UA) 2+H, Urine Ketones TRACEH, Urine Blood NEGATIVE, Urine Nitrite NEGATIVE, Urine Bilirubin NEGATIVE, Urine Urobilinogen 0.2, Urine Leukocyte Esterase NEGATIVE, Urine WBC (Auto) 0, Urine RBC (Auto) 1, Urine Hyaline Casts (Auto) 0, Urine Bacteria (Auto) NEGATIVE, Urine Squamous Epithelial Cells 1, Urine Mucus (Auto) SMALL, Urine Sperm (Auto) 05/22/19 19:30: Immature Granulocyte % (Auto) 1.0, White Blood Count 11.4H, Red Blood Count 4.07, Hemoglobin 12.3, Hematocrit 34.8L, Mean Corpuscular Volume 85.5, Mean Corpuscular Hemoglobin 30.2, Mean Corpuscular Hemoglobin Concent 35.3, Red Cell Distribution Width 13.2, Platelet Count 202, Neutrophils (%) (Auto) 71.1H, Lymphocytes (%) (Auto) 18.4L, Monocytes (%) (Auto) 6.7H, Eosinophils (%) (Auto) 2.5, Basophils (%) (Auto) 0.3, Neutrophils # (Auto) 8.1H, Lymphocytes # (Auto) 2.1, Monocytes # (Auto) 0.8, Eosinophils # (Auto) 0.3, Basophils # (Auto) 0.0, Nucleated Red Blood Cells % (auto) 0.0, Prothrombin Time 14.3H, Prothromb Time International Ratio 1.14, Anion Gap 7L, Glomerular Filtration Rate 24.6L, Calcium Level 8.7, Aspartate Amino Transf (AST/SGOT) 19, Alanine Aminotransferase (ALT/SGPT) 28, Alkaline Phosphatase 111, Total Bilirubin 0.2, Direct Bilirubin < 0.1, Total Creatine Kinase 169, Creatine Kinase MB 2.5, Creatine Kinase MB Relative Index 1.48, Troponin I 0.07, Total Protein 6.6, Albumin 3.0L, Albumin/Globulin Ratio 0.83L, Lipase 165 CBC/BMP Laboratory Tests 05/22/19 19:30 Red Blood Count 4.07, Mean Corpuscular Volume 85.5, Mean Corpuscular Hemoglobin 30.2, Mean Corpuscular Hemoglobin Concent 35.3, Red Cell Distribution Width 13.2, Neutrophils (%) (Auto) 71.1 H, Lymphocytes (%) (Auto) 18.4 L, Monocytes (%) (Auto) 6.7 H, Eosinophils (%) (Auto) 2.5, Basophils (%) (Auto) 0.3, Neutrophils # (Auto) 8.1 H, Lymphocytes # (Auto) 2.1, Monocytes # (Auto) 0.8, Eosinophils # (Auto) 0.3, Basophils # (Auto) 0.0 Home Medications Scheduled Amlodipine Besylate (Amlodipine Besylate) 10 Mg Tab, 10 MG PO QHS Apixaban (Eliquis) 5 Mg Tab, 5 MG PO BID Benazepril HCl (Benazepril HCl) 40 Mg Tab, 40 MG PO QHS Carvedilol (Carvedilol) 25 Mg Tab, 25 MG PO BID Cholecalciferol (Vitamin D3) (Vitamin D3) 50,000 Unit Capsule, 50,000 UNIT PO 1XWK TAKES ON TUESDAY Cyclobenzaprine HCl (Cyclobenzaprine HCl) 10 Mg Tab, 10 MG PO TID Cyclosporine (Restasis) 0.05 % Emu, 1 DROP OU BID USES PRN Dexlansoprazole (Dexilant) 60 Mg Cap, 60 MG PO QHS Duloxetine Hcl (Duloxetine HCl) 60 Mg Cap, 120 MG PO QHS Exenatide Microspheres (Bydureon) 2 Mg Inj, 1 INJ SC 1XWK USES ON TUESDAYS Insulin Degludec (Tresiba Flextouch U-200) 200 Unit/Ml Inj, 160 UNIT SC BID Insulin Lispro (Humalog Kwikpen U-200) 200 Unit/Ml Inj, 1 UNITS SC TID sliding scale Lactobacillus Acidophilus (Probiotic) 1 Each Capsule, 1 CAP PO QHS Magnesium Chloride (Mag64) 64 Mg Tabcr, 64 MG PO QHS Montelukast Sodium (Montelukast Sodium) 10 Mg Tab, 10 MG PO QHS Nystatin (Nystatin Powder) 15 Gm Powder, 1 APLCT TOP BID apply to affected area(s) Pregabalin (Lyrica) 300 Mg Cap, 300 MG PO BID Quetiapine Fumarate (Seroquel) 300 Mg Tab, 600 MG PO QHS Ranitidine HCl (Ranitidine HCl) 150 Mg Tab, 1 TAB PO QHS Ropinirole HCl (Ropinirole HCl) 2 Mg Tab, 2 MG PO BID TAKES AT 1800 AND 0000 Sertraline HCl (Sertraline HCl) 100 Mg Tab, 200 MG PO QHS Tamsulosin HCl (Flomax) 0.4 Mg Cap, 0.4 MG PO QHS Torsemide (Torsemide) 20 Mg Tablet, 20 MG PO BID Trazodone HCl (Trazodone HCl) 50 Mg Tablet, 150 MG PO QHS [Collagen Support] , 1 TAB PO DAILY Scheduled PRN Albuterol Sulf (Albuterol Sulfate) 2.5 Mg/3 Ml Vial.neb, 1 INH INH Q4H PRN for wheezing Epinephrine (Epipen 2-Thomas) 0.3 Mg/0.3 Ml Inj, 0.3 MG SC PRN PRN for ALLERGIC REACTION Hydrocodone/Acetaminophen (Struthers 10-325 Tablet) 1 Tab Tab, 1 TAB PO Q4H PRN for PAIN Allergies Coded Allergies: Latex, Natural Rubber (Verified Allergy, Unknown, anaphylaxis, 04/20/19) Penicillins (Verified Allergy, Unknown, anaphylaxis, CEPHALOSPORINS [place], 04/20/19) SURGICAL ANGIE (Verified Allergy, Unknown, 04/20/19) Sulfa (Sulfonamide Antibiotics) (Verified Allergy, Unknown, hives, 04/20/19) clindamycin (Verified Allergy, Unknown, Rash/mouth sores/BURNING OF SKIN, 04/20/19) fenofibrate (Verified Allergy, Unknown, rash, 04/20/19) metformin (Verified Allergy, Unknown, rash, 04/20/19) pineapple (Verified Allergy, Unknown, swollen lips/mouth sores, 04/20/19) A-FIB/CHADSVASC A-FIB History Current/History of A-Fib/PAF?: No Current PO Anticoag Therapy: No SINCERE ARAGON MD May 23, 2019 00:20
--- NOTE | 2019-05-23 00:24 | REPVR ---
EXAM: US Retroperitoneal Limited, Kidneys EXAM DATE/TIME: 05/22/2019 11:45 PM CLINICAL HISTORY: 48 years old, female; Abnormal findings; Abnormal lab test; Other: Obi TECHNIQUE: Imaging protocol: Real-time ultrasound of the retroperitoneum with image documentation. Examination was focused on the kidneys. COMPARISON: RENAL US 08/17/2018 2:02 PM FINDINGS: Right kidney: 10.4 cm in length. No stones. No hydronephrosis. Left kidney: 11.5 cm in length. No stones. No hydronephrosis. Urinary bladder: Unremarkable as visualized. IMPRESSION: No acute sonographic findings. Electronically signed by: Alber Morel On 05/23/2019 00:24:08 AM
[2019-05-23] MEDS ORDERED: traZODone 50 MG TAB PO ONE (01:30)
[2019-05-23] MEDS ORDERED: SERTRALINE 100 MG TAB PO ONE (01:30)
[2019-05-23] MEDS ORDERED: ALBUTEROL SULFATE 2.5 MG/0.5 ML INH NEB SOLN INH PRN (01:30)
[2019-05-23] MEDS ORDERED: GLUCOSE 4 GM CHEW TABLET PO PRN (01:45)
[2019-05-23] MEDS: amLODIPine 10 MG TAB PO SCH ×2 (01:46→21:02)
[2019-05-23 07:05] LABS: HEMATOCRIT 35.4 % (36.0-47.0); HEMOGLOBIN 12.4 g/dl (12.0-15.5); MEAN CORPUSCULAR VOLUME 86.6 fl (80.0-96.0); RED BLOOD COUNT 4.09 10^6/uL (4.00-5.40); WHITE BLOOD COUNT 7.8 10^3/uL (4.0-10.0)
[2019-05-23 07:06] LABS: MEAN CORPUSCULAR HEMOGLOBIN 30.3 pg (27.0-33.0); PLATELET COUNT, AUTOMATED 164 10^3/uL (150-450)
[2019-05-23 07:27] LABS: HEMOGLOBIN A1c 11.8 %
[2019-05-23 07:29] LABS: BLOOD UREA NITROGEN 32 MG/DL (7-18); CALCIUM LEVEL 8.8 MG/DL (8.5-10.1); CARBON DIOXIDE LEVEL 27 MEQ/L (21-32); CHLORIDE LEVEL 101 MEQ/L (98-107); CREATININE FOR GFR 1.94 MG/DL (0.55-1.30); FERRITIN 84 NG/ML (8-252); GLOMERULAR FILTRATION RATE 29.2 (>58); GLUCOSE, FASTING 303 MG/DL (70-100); IRON (FE) 73 UG/DL (50-170); PERCENT SATURATION 15.2 % (13.2-45.0); PHOSPHORUS LEVEL 3.1 MG/DL (2.5-4.9); POTASSIUM SERUM 4.9 MEQ/L (3.5-5.1); SODIUM LEVEL 134 MEQ/L (136-145); TOTAL IRON BINDING CAPACITY 481 UG/DL (250-450)
[2019-05-23 08:25] VITALS: BP 176/86
[2019-05-23] MEDS: CARVedilol 12.5 MG TAB PO SCH ×2 (08:49→21:03)
[2019-05-23] MEDS: CYCLOBENZAPRINE 10 MG TAB PO SCH ×3 (08:49→21:02)
[2019-05-23] MEDS: PREGABALIN 100 MG CAP (LYRICA) PO SCH ×2 (08:49→21:02)
[2019-05-23] MEDS: APIXABAN 5 MG TAB (ELIQUIS) PO SCH ×2 (08:50→21:02)
[2019-05-23] MEDS ORDERED: TRESIBA U SC SCH (09:00)
[2019-05-23] MEDS: NS 1,000 ML IV SCH ×2 (09:29→19:45)
[2019-05-23 09:58] LABS: PTH INTACT 57.3 PG/ML (18.5-88.0)
[2019-05-23 10:08] LABS: HEPATITIS B SURFACE ANTIGEN NEGATIVE (NEGATIVE)
[2019-05-23] MEDS: NORCO, ANEXSIA 5/325MG TABLET (HYDROcodone/ACETAMINOPHEN) PO PRN ×2 (10:23→18:30)
[2019-05-23 10:37] LABS: HEPATITIS B CORE ANTIBODY IGM NEGATIVE (NEGATIVE); HEPATITIS C VIRUS ABY INDEX 0.1 INDEX (<0.8)
[2019-05-23 10:38] LABS: HEPATITIS A ANTIBODY IGM NEGATIVE (NEGATIVE)
[2019-05-23 14:00] VITALS: BP 135/85
[2019-05-23] MEDS: HumaLOG INSULIN (NovoLOG) PER UNIT SC SCH ×2 (16:43→21:00)
--- NOTE | 2019-05-23 18:49 | IPNPDOC ---
Subjective Date Seen The patient was seen on 05/23/19. Subjective Chief Complaint/HPI Patient seen and examined at the bedside. Denies any acute complaints at this time. Objective Physical Examination General Exam: Positive: Alert, Cooperative, No Acute Distress ENT Exam: Positive: Atraumatic, Mucous membr. moist/pink Neck Exam: Negative: JVD Chest Exam: Positive: Clear to auscultation, Normal air movement Heart Exam: Positive: Rate Normal, Normal S1, Normal S2 Abdomen Exam: Positive: Soft; Negative: Tenderness Extremity Exam: Positive: Other (left BKA noted); Negative: Tenderness, Swelling Psych Exam: Positive: Mental status NL, Mood NL, Oriented x 3 Assessment /Plan Plan/VTE VTE Prophylaxis Ordered?: Yes Plan Acute Renal Failure possibly 2/2 Decreased PO Intake, Underlying Diabetes Improved following gentle IVF hydration Hold Nephrotoxins UA notable for 3+ proteinuria Renal U/S with no acute findings Cont Gentle IVF Hydration We will follow up with Nephro recommendations Insulin-dependent type 2 diabetes complicated by diabetic foot ulcers, neur opathy and retinopathy Cont regimen as ordered Lumbar spondylolysis /Chronic lower back pain /Fibromyalgia. Continue home meds Iron deficiency anemia / Restless Leg sydrome Continue home meds Factor V Leiden with prior DVTs Eliquis Chronic hypertension Continue home meds Chronic asthma Continue home meds Bipolar Disorder / OCD Continue home meds Psoriasis Continue home meds Gastroesophageal reflux disease (GERD) Continue home meds Morbid obesity Complicating care DVT prophylaxis with Eliquis VS, I&O, 24H, Fishbone Vital Signs/I&O Vital Signs Date Time Temp Pulse Resp B/P (MAP) Pulse Ox O2 Delivery O2 Flow Rate FiO2 05/23/19 18:30 16 05/23/19 14:00 97.4 90 135/85 (102) 92 05/23/19 08:12 Room Air Laboratory Data 24H LABS Laboratory Tests 2 05/22/19 18:59: Urine Color YELLOW, Urine Appearance CLOUDYH, Urine pH 5.0, Urine Specific [place] 1.018, Urine Protein 3+H, Urine Glucose (UA) 2+H, Urine Ketones TRACEH, Urine Blood NEGATIVE, Urine Nitrite NEGATIVE, Urine Bilirubin NEGATIVE, Urine Urobilinogen 0.2, Urine Leukocyte Esterase NEGATIVE, Urine WBC (Auto) 0, Urine RBC (Auto) 1, Urine Hyaline Casts (Auto) 0, Urine Bacteria (Auto) NEGATIVE, Urine Squamous Epithelial Cells 1, Urine Mucus (Auto) SMALL, Urine Sperm (Auto) 05/22/19 19:30: Immature Granulocyte % (Auto) 1.0, White Blood Count 11.4H, Red Blood Count 4.07, Hemoglobin 12.3, Hematocrit 34.8L, Mean Corpuscular Volume 85.5, Mean Corpuscular Hemoglobin 30.2, Mean Corpuscular Hemoglobin Concent 35.3, Red Cell Distribution Width 13.2, Platelet Count 202, Neutrophils (%) (Auto) 71.1H, Lymphocytes (%) (Auto) 18.4L, Monocytes (%) (Auto) 6.7H, Eosinophils (%) (Auto) 2.5, Basophils (%) (Auto) 0.3, Neutrophils # (Auto) 8.1H, Lymphocytes # (Auto) 2.1, Monocytes # (Auto) 0.8, Eosinophils # (Auto) 0.3, Basophils # (Auto) 0.0, Nucleated Red Blood Cells % (auto) 0.0, Prothrombin Time 14.3H, Prothromb Time International Ratio 1.14, Anion Gap 7L, Glomerular Filtration Rate 24.6L, Calcium Level 8.7, Aspartate Amino Transf (AST/SGOT) 19, Alanine Aminotransferase (ALT/SGPT) 28, Alkaline Phosphatase 111, Total Bilirubin 0.2, Direct Bilirubin < 0.1, Total Creatine Kinase 169, Creatine Kinase MB 2.5, Creatine Kinase MB Relative Index 1.48, Troponin I 0.07, Total Protein 6.6, Albumin 3.0L, Albumin/Globulin Ratio 0.83L, Lipase 165 05/23/19 06:39: Nucleated Red Blood Cells % (auto) 0.0, Anion Gap 6L, Glomerular Filtration Rate 29.2L, Calcium Level 8.8, Estimated Mean Plasma Glucose 292H, Hemoglobin A1c 11.8, Blood Urea Nitrogen 32H, Creatinine 1.94H, Sodium Level 134L, Potassium Level 4.9, Chloride Level 101, Carbon Dioxide Level 27, Phosphorus Level 3.1, Iron Level 73, Total Iron Binding Capacity 481H, Transferrin % Saturation 15.2, Ferritin 84, 25-Hydroxy Vitamin D Total 17.0L, Parathyroid Hormone (Intact) 57.3, Hepatitis A IgM Antibody NEGATIVE, Hepatitis B Surface Antigen NEGATIVE, Hepatitis B Core IgM Antibody NEGATIVE, Hepatitis C Antibody Index 0.1 CBC/BMP Laboratory Tests 8/6/19 19:30 Red Blood Count 4.07, Mean Corpuscular Volume 85.5, Mean Corpuscular Hemoglobin 30.2, Mean Corpuscular Hemoglobin Concent 35.3, Red Cell Distribution Width 13.2, Neutrophils (%) (Auto) 71.1 H, Lymphocytes (%) (Auto) 18.4 L, Monocytes (%) (Auto) 6.7 H, Eosinophils (%) (Auto) 2.5, Basophils (%) (Auto) 0.3, Neutrophils # (Auto) 8.1 H, Lymphocytes # (Auto) 2.1, Monocytes # (Auto) 0.8, Eosinophils # (Auto) 0.3, Basophils # (Auto) 0.0 05/23/19 06:39 Red Blood Count 4.09, Mean Corpuscular Volume 86.6, Mean Corpuscular Hemoglobin 30.3, Mean Corpuscular Hemoglobin Concent 35.0, Red Cell Distribution Width 13.4, Calcium Level 8.8 YASH VEE MD May 23, 2019 18:49
[2019-05-23 20:03] LABS: TOTAL PROTEIN,RANDOM URINE 187.8 MG/DL (0.0-12.0)
[2019-05-23 20:05] LABS: CREATININE,RANDOM URINE 75.3 MG/DL; POTASSIUM RANDOM URINE 54.1 MEQ/L
[2019-05-23] MEDS: MAGNESIUM CHLORIDE 64 MG TABCR (SLO MAG) PO SCH (21:00)
[2019-05-23] MEDS: LEVEMIR (INSULIN DETEMIR) 1 UNITS/0.01ML SC SCH (21:00)
[2019-05-23] MEDS ORDERED: QUEtiapine FUMARATE 200 MG TAB PO SCH (21:00)
[2019-05-23] MEDS: SERTRALINE 100 MG TAB PO SCH (21:01)
[2019-05-23] MEDS: DULoxetine 30 MG CAP (CYMBALTA) PO SCH (21:01)
[2019-05-23] MEDS: rOPINIRole 2MG TAB PO SCH ×2 (21:01)
[2019-05-23] MEDS: QUEtiapine FUMARATE 200 MG TAB PO SCH (21:01)
[2019-05-23] MEDS: traZODone 50 MG TAB PO SCH (21:02)
[2019-05-23] MEDS: TAMSULOSIN 0.4 MG CAP PO SCH (21:02)
[2019-05-23] MEDS: FAMOTIDINE 20 MG TAB PO SCH (21:04)
[2019-05-23] MEDS: MONTELUKAST 10 MG TAB PO SCH (21:04)
[2019-05-24] MEDS: NS 1,000 ML IV SCH ×2 (04:02→14:52)
[2019-05-24 06:00] VITALS: BP 159/92
[2019-05-24 08:42] LABS: CALCIUM LEVEL 8.4 MG/DL (8.5-10.1); CREATININE FOR GFR 1.46 MG/DL (0.55-1.30); GLOMERULAR FILTRATION RATE 40.5 (>58); POTASSIUM SERUM 4.9 MEQ/L (3.5-5.1)
[2019-05-24] MEDS: CARVedilol 12.5 MG TAB PO SCH ×2 (09:05→22:31)
[2019-05-24] MEDS: PREGABALIN 100 MG CAP (LYRICA) PO SCH ×2 (09:05→22:30)
[2019-05-24] MEDS: APIXABAN 5 MG TAB (ELIQUIS) PO SCH ×2 (09:06→22:27)
[2019-05-24] MEDS: HumaLOG INSULIN (NovoLOG) PER UNIT SC SCH ×4 (09:06→22:27)
[2019-05-24] MEDS: CYCLOBENZAPRINE 10 MG TAB PO SCH ×3 (09:06→22:28)
[2019-05-24] MEDS: LEVEMIR (INSULIN DETEMIR) 1 UNITS/0.01ML SC SCH ×2 (09:07→22:26)
[2019-05-24 11:00] LABS: HEMATOCRIT 33.5 % (36.0-47.0); HEMOGLOBIN 11.4 g/dl (12.0-15.5); MEAN CORPUSCULAR HEMOGLOBIN 29.5 pg (27.0-33.0); MEAN CORPUSCULAR VOLUME 86.6 fl (80.0-96.0); PLATELET COUNT, AUTOMATED 152 10^3/uL (150-450); RED BLOOD COUNT 3.87 10^6/uL (4.00-5.40); WHITE BLOOD COUNT 4.5 10^3/uL (4.0-10.0)
[2019-05-24] MEDS: NORCO, ANEXSIA 5/325MG TABLET (HYDROcodone/ACETAMINOPHEN) PO PRN ×2 (11:13→17:59)
--- NOTE | 2019-05-24 13:28 | IPNPDOC ---
Subjective Date Seen The patient was seen on 05/24/19. Subjective Chief Complaint/HPI Patient seen and examined at the bedside. No acute overnight events noted. States that she has been urinating without any acute complaints. Her renal function appears to be improving. She does not endorse any complaints at this time. Objective Physical Examination General Exam: Positive: Alert, Cooperative, No Acute Distress ENT Exam: Positive: Atraumatic, Mucous membr. moist/pink Neck Exam: Negative: JVD Chest Exam: Positive: Clear to auscultation, Normal air movement Heart Exam: Positive: Rate Normal, Normal S1, Normal S2 Abdomen Exam: Positive: Soft; Negative: Tenderness Extremity Exam: Positive: Other (left BKA noted); Negative: Tenderness, Swelling Psych Exam: Positive: Mental status NL, Mood NL, Oriented x 3 Assessment /Plan Plan/VTE VTE Prophylaxis Ordered?: Yes Plan Acute Renal Failure possibly 2/2 Decreased PO Intake, Underlying Diabetes Improving following gentle IVF hydration Hold Nephrotoxins UA notable for 3+ proteinuria Renal U/S with no acute findings Cont Gentle IVF Hydration I did discuss the case with Dr. Parson of nephrology this morning, and updated him about the patient's renal function improvement. They will follow up with the patient in 1-2 weeks upon discharge for further monitoring. Insulin-dependent type 2 diabetes complicated by diabetic foot ulcers, neuropathy and retinopathy Cont regimen as ordered Lumbar spondylolysis /Chronic lower back pain /Fibromyalgia. Continue home meds Iron deficiency anemia / Restless Leg sydrome Continue home meds Factor V Leiden with prior DVTs Eliquis Chronic hypertension Continue home meds Chronic asthma Continue home meds Bipolar Disorder / OCD Continue home meds Psoriasis Continue home meds Gastroesophageal reflux disease (GERD) Continue home meds Morbid obesity Complicating care DVT prophylaxis with Eliquis VS, I&O, 24H, Fishbone Vital Signs/I&O Vital Signs Date Time Temp Pulse Resp B/P (MAP) Pulse Ox O2 Delivery O2 Flow Rate FiO2 05/24/19 11:13 16 05/24/19 09:05 85 149/75 05/24/19 06:00 98.7 95 05/23/19 08:12 Room Air I&O- Last 24 Hours up to 6 AM 05/24/19 06:00 Intake Total 3025 ml Output Total 1470 ml Balance 1555 ml Laboratory Data 24H LABS Laboratory Tests 2 05/23/19 18:40: Urine Random Creatinine 75.3, Urine Random Total Protein 187.8H, Urine Random Sodium 40, Urine Random Potassium 54.1 05/24/19 08:17: Anion Gap 6L, Glomerular Filtration Rate 40.5L, Blood Urea Nitrogen 32H, Creatinine 1.46H, Sodium Level 136, Potassium Level 4.9, Chloride Level 105, Carbon Dioxide Level 25, Calcium Level 8.4L 05/24/19 10:28: Nucleated Red Blood Cells % (auto) 0.0 CBC/BMP Laboratory Tests 05/24/19 08:17 Calcium Level 8.4 L 05/24/19 10:28 Red Blood Count 3.87 L, Mean Corpuscular Volume 86.6, Mean Corpuscular Hemoglobin 29.5, Mean Corpuscular Hemoglobin Concent 34.0, Red Cell Distribution Width 13.5 YASH VEE MD May 24, 2019 13:28
[2019-05-24 14:00] VITALS: BP 135/48
[2019-05-24] MEDS: rOPINIRole 2MG TAB PO SCH ×3 (17:11→23:56)
[2019-05-24 22:00] VITALS: BP 186/81
[2019-05-24] MEDS: MAGNESIUM CHLORIDE 64 MG TABCR (SLO MAG) PO SCH (22:27)
[2019-05-24] MEDS: SERTRALINE 100 MG TAB PO SCH (22:29)
[2019-05-24] MEDS: TAMSULOSIN 0.4 MG CAP PO SCH (22:29)
[2019-05-24] MEDS: DULoxetine 30 MG CAP (CYMBALTA) PO SCH (22:29)
[2019-05-24] MEDS: FAMOTIDINE 20 MG TAB PO SCH (22:29)
[2019-05-24] MEDS: MONTELUKAST 10 MG TAB PO SCH (22:29)
[2019-05-24] MEDS: traZODone 50 MG TAB PO SCH (22:29)
[2019-05-24] MEDS: QUEtiapine FUMARATE 200 MG TAB PO SCH (22:30)
[2019-05-24] MEDS: amLODIPine 10 MG TAB PO SCH (22:30)
[2019-05-25] MEDS: NORCO, ANEXSIA 5/325MG TABLET (HYDROcodone/ACETAMINOPHEN) PO PRN ×2 (00:01→08:58)
[2019-05-25] MEDS: NS 1,000 ML IV SCH (04:00)
[2019-05-25 06:00] VITALS: BP 129/66
[2019-05-25 06:49] LABS: HEMATOCRIT 31.4 % (36.0-47.0); HEMOGLOBIN 10.6 g/dl (12.0-15.5); MEAN CORPUSCULAR HEMOGLOBIN 30.2 pg (27.0-33.0); MEAN CORPUSCULAR HGB CONC 33.8 g/dl (32.0-36.5); MEAN CORPUSCULAR VOLUME 89.5 fl (80.0-96.0); PLATELET COUNT, AUTOMATED 129 10^3/uL (150-450); RED BLOOD COUNT 3.51 10^6/uL (4.00-5.40); WHITE BLOOD COUNT 4.3 10^3/uL (4.0-10.0)
[2019-05-25 07:17] LABS: CALCIUM LEVEL 8.5 MG/DL (8.5-10.1); CREATININE FOR GFR 1.55 MG/DL (0.55-1.30); GLOMERULAR FILTRATION RATE 37.8 (>58); POTASSIUM SERUM 4.3 MEQ/L (3.5-5.1)
[2019-05-25] MEDS: HumaLOG INSULIN (NovoLOG) PER UNIT SC SCH (08:04)
[2019-05-25] MEDS: PREGABALIN 100 MG CAP (LYRICA) PO SCH (08:04)
[2019-05-25] MEDS: APIXABAN 5 MG TAB (ELIQUIS) PO SCH (08:05)
[2019-05-25] MEDS: CYCLOBENZAPRINE 10 MG TAB PO SCH (08:05)
[2019-05-25] MEDS: LEVEMIR (INSULIN DETEMIR) 1 UNITS/0.01ML SC SCH (08:05)
[2019-05-25 08:07] VITALS: BP 132/71
[2019-05-25] MEDS: CARVedilol 12.5 MG TAB PO SCH (08:07)
--- NOTE | 2019-05-25 14:45 | DS.PDOC ---
Discharge Summary General Date of Admission May 22, 2019 at 23:35 Date of Discharge 05/25/19 Discharge Summary PROCEDURES PERFORMED DURING STAY: None. ADMITTING/DISCHARGE DIAGNOSES: Acute Renal Failure possibly 2/2 Decreased PO Intake, Underlying Diabetes COMPLICATIONS/CHIEF COMPLAINT: Acute Kidney Failure. HISTORY OF PRESENT ILLNESS: . 48-year-old female with a past medical history significant for type 2 diabetes mellitus, chronic kidney disease, bipolar disorder, factor V Leyden deficiency, presented to the ER from the [facility] for worsening renal function. The patient endorsed that she had been having increased nausea, vomiting, and poor intake for the last several days. She denied any complaints of fevers, chills, chest pain, cough, abdominal pain, sick contacts, recent travel, or any diarrhea. In the ER, the patient's serum creatinine was noted to be 2.25, which is an increase from her baseline. The patient was admitted to the hospitalist service for further evaluation and management. Acute Renal Failure possibly 2/2 Decreased PO Intake, Underlying Diabetes Improved back to baseline following gentle IVF hydration Renal U/S with no acute findings I did discuss the case with Dr. Parson of nephrology on 05/24 via telephone, and updated him about the patient's renal function improvement. They will follow up with the patient in 1-2 weeks upon discharge for further monitoring. Insulin-dependent type 2 diabetes complicated by diabetic foot ulcers, neuropathy and retinopathy Cont regimen as ordered Lumbar spondylolysis /Chronic lower back pain /Fibromyalgia. Continue home meds Iron deficiency anemia / Restless Leg sydrome Continue home meds Factor V Leiden with prior DVTs Eliquis Chronic hypertension Continue home meds Chronic asthma Continue home meds Bipolar Disorder / OCD Continue home meds Psoriasis Continue home meds Gastroesophageal reflux disease (GERD) Continue home meds Morbid obesity Complicating care DISCHARGE MEDICATIONS: Please see below. ALLERGIES: Please see below. PHYSICAL EXAMINATION ON DISCHARGE: VITAL SIGNS: Please see below. General Exam: Positive: Alert, Cooperative, No Acute Distress ENT Exam: Positive: Atraumatic, Mucous membr. moist/pink Neck Exam: Negative: JVD Chest Exam: Positive: Clear to auscultation, Normal air movement Heart Exam: Positive: Rate Normal, Normal S1, Normal S2 Abdomen Exam: Positive: Soft; Negative: Tenderness Extremity Exam: Positive: Other (left BKA noted); Negative: Tenderness, Swelling Psych Exam: Positive: Mental status NL, Mood NL, Oriented x 3 LABORATORY DATA: Please see below. IMAGING: EXAM: US Duplex Right Lower Extremity Veins, Limited EXAM DATE/TIME: 05/22/2019 6:45 PM CLINICAL HISTORY: 48 years old, female; Pain; Leg, lower; Right; Additional info: Edema TECHNIQUE: Imaging protocol: Real-time Duplex ultrasound of the Right Lower Extremity with 2-D dobbs scale, color Doppler flow and spectral waveform analysis with image documentation. Limited exam was focused on the right lower extremity veins. COMPARISON: US Duplex, Ext,LOWER veins,unilat 10/27/2017 2:14 PM FINDINGS: Right deep veins: Unremarkable. The common femoral, femoral, proximal profunda femoral, popliteal and posterior tibial veins are patent without thrombus. Normal Doppler waveforms. Normal compressibility and/or augmentation response. Right superficial veins: Unremarkable. Saphenofemoral junction is patent without thrombus. Soft tissues: Unremarkable. IMPRESSION: No sonographic evidence of deep vein thrombosis. EXAM: CT Abdomen and Pelvis Without Contrast EXAM DATE/TIME: 05/22/2019 6:23 PM CLINICAL HISTORY: 48 years old, female; Abdominal pain; Generalized; Additional info: Abd distention TECHNIQUE: Imaging protocol: Axial computed tomography images of the abdomen and pelvis without contrast. Coronal and sagittal reformatted images were created and reviewed. Radiation optimization: All CT scans at this facility use at least one of these dose optimization techniques: automated exposure control; mA and/or kV adjustment per patient size (includes targeted exams where dose is matched to clinical indication); or iterative reconstruction. COMPARISON: CT ABD/PEL W/IV CONTRAST ONLY 03/20/2018 2:36 AM FINDINGS: Lungs: Minimal linear stranding and groundglass at the lung bases, likely due to atelectasis and/or scarring. Focal reticulonodular infiltrate in the right lower lobe, suggestive of small airway disease. Left lower lobe calcified granuloma. Mediastinum: Small hiatal hernia and mild nonspecific distal esophageal wall thickening, suggesting chronic reflux/esophagitis. Liver: Mild hepatomegaly. Mild hepatic steatosis. Gallbladder and bile ducts: Status post cholecystectomy. No biliary ductal dilatation. Pancreas: Unremarkable. Spleen: Coarse calcified splenic granulomata. Adrenals: Unremarkable. Kidneys and ureters: No mass. No radiodense calculi. No hydronephrosis. Stomach and bowel: Moderate amount of retained stool in the colon. No obstruction. No bowel wall thickening. No pneumatosis. Appendix: Findings suggestive of prior appendectomy. Intraperitoneal space: No free fluid. No organized fluid collection. No free air. Vasculature: Unremarkable. No aneurysm. Lymph nodes: Calcified left hilar lymph nodes, consistent with prior granulomatous disease. Small inguinal lymph nodes, likely reactive. No pathologically enlarged lymph nodes. Bladder: Mild circumferential urinary bladder wall thickening, likely secondary to underdistention. Reproductive: Status post hysterectomy. Bones/joints: No acute osseous abnormality. Osteopenia. Degenerative changes. Soft tissues: Mild subcutaneous stranding and skin thickening in the anterior abdominal wall, suggestive of cellulitis. No organized collection. IMPRESSION: 1. Limited noncontrast examination without CT evidence of acute intra-abdominal or pelvic pathology. 2. Additional findings, as above. EXAM: US Retroperitoneal Limited, Kidneys EXAM DATE/TIME: 05/22/2019 11:45 PM CLINICAL HISTORY: 48 years old, female; Abnormal findings; Abnormal lab test; Other: Obi TECHNIQUE: Imaging protocol: Real-time ultrasound of the retroperitoneum with image documentation. Examination was focused on the kidneys. COMPARISON: RENAL US 08/17/2018 2:02 PM FINDINGS: Right kidney: 10.4 cm in length. No stones. No hydronephrosis. Left kidney: 11.5 cm in length. No stones. No hydronephrosis. Urinary bladder: Unremarkable as visualized. IMPRESSION: No acute sonographic findings. PROGNOSIS: Fair ACTIVITY: As tolerated. DIET: Carb Consistent diet, fluid restriction of 1800 mL daily DISCHARGE PLAN: DISPOSITION: Home, Self-Care. DISCHARGE INSTRUCTIONS: Follow-up with PCP within 7 days. Follow-up with nephrology within 1-2 weeks. Return to the ER for any acute emergency. DISCHARGE CONDITION: Stable. TIME SPENT ON DISCHARGE: Greater than 30 minutes. Vital Signs/I&Os Vital Signs Date Time Temp Pulse Resp B/P (MAP) Pulse Ox O2 Delivery O2 Flow Rate FiO2 05/25/19 09:28 16 05/25/19 08:07 85 132/71 05/25/19 06:00 96.7 95 05/23/19 08:12 Room Air I&O- Last 24 Hours up to 6 AM 05/25/19 06:00 Intake Total 5450 ml Output Total 1520 ml Balance 3930 ml Laboratory Data Labs 24H Laboratory Tests 2 05/25/19 05:56: Nucleated Red Blood Cells % (auto) 0.0, Anion Gap 6L, Glomerular Filtration Rate 37.8L, Blood Urea Nitrogen 37H, Creatinine 1.55H, Sodium Level 141, Potassium Level 4.3, Chloride Level 108H, Carbon Dioxide Level 27, Calcium Level 8.5 CBC/BMP Laboratory Tests 05/25/19 05:56 Red Blood Count 3.51 L, Mean Corpuscular Volume 89.5, Mean Corpuscular Hemoglobin 30.2, Mean Corpuscular Hemoglobin Concent 33.8, Red Cell Distribution Width 13.5, Calcium Level 8.5 Discharge Medications Scheduled Amlodipine Besylate (Amlodipine Besylate) 10 Mg Tab, 10 MG PO QHS, (Reported) Apixaban (Eliquis) 5 Mg Tab, 5 MG PO BID, (Reported) Benazepril HCl (Benazepril HCl) 40 Mg Tab, 40 MG PO QHS, (Reported) Carvedilol (Carvedilol) 25 Mg Tab, 25 MG PO BID, (Reported) Cholecalciferol (Vitamin D3) (Vitamin D3) 50,000 Unit Capsule, 50,000 UNIT PO 1XWK, (Reported) TAKES ON TUESDAY Cyclobenzaprine HCl (Cyclobenzaprine HCl) 10 Mg Tab, 10 MG PO TID, (Reported) Cyclosporine (Restasis) 0.05 % Emu, 1 DROP OU BID, (Reported) USES PRN Dexlansoprazole (Dexilant) 60 Mg Cap, 60 MG PO QHS, (Reported) Duloxetine Hcl (Duloxetine HCl) 60 Mg Cap, 120 MG PO QHS, (Reported) Exenatide Microspheres (Bydureon) 2 Mg Inj, 1 INJ SC 1XWK, (Reported) USES ON TUESDAYS Insulin Degludec (Tresiba Flextouch U-200) 200 Unit/Ml Inj, 160 UNIT SC BID, (Reported) Insulin Lispro (Humalog Kwikpen U-200) 200 Unit/Ml Inj, 1 UNITS SC TID, (Reported) sliding scale Lactobacillus Acidophilus (Probiotic) 1 Each Capsule, 1 CAP PO QHS, (Reported) Magnesium Chloride (Mag64) 64 Mg Tabcr, 64 MG PO QHS, (Reported) Montelukast Sodium (Montelukast Sodium) 10 Mg Tab, 10 MG PO QHS, (Reported) Nystatin (Nystatin Powder) 15 Gm Powder, 1 APLCT TOP BID, (Reported) apply to affected area(s) Pregabalin (Lyrica) 300 Mg Cap, 300 MG PO BID, (Reported) Quetiapine Fumarate (Seroquel) 300 Mg Tab, 600 MG PO QHS, (Reported) Ranitidine HCl (Ranitidine HCl) 150 Mg Tab, 1 TAB PO QHS, (Reported) Ropinirole HCl (Ropinirole HCl) 2 Mg Tab, 2 MG PO BID, (Reported) TAKES AT 1800 AND 0000 Sertraline HCl (Sertraline HCl) 100 Mg Tab, 200 MG PO QHS, (Reported) Tamsulosin HCl (Flomax) 0.4 Mg Cap, 0.4 MG PO QHS, (Reported) Torsemide (Torsemide) 20 Mg Tablet, 20 MG PO BID, (Reported) Trazodone HCl (Trazodone HCl) 50 Mg Tablet, 150 MG PO QHS, (Reported) [Collagen Support] , 1 TAB PO DAILY, (Reported) Scheduled PRN Albuterol Sulf (Albuterol Sulfate) 2.5 Mg/3 Ml Vial.neb, 1 INH INH Q4H PRN for wheezing, (Reported) Epinephrine (Epipen 2-Thomas) 0.3 Mg/0.3 Ml Inj, 0.3 MG SC PRN PRN for ALLERGIC REACTION, (Reported) Hydrocodone/Acetaminophen ([place] 10-325 Tablet) 1 Tab Tab, 1 TAB PO Q4H PRN for PAIN, (Reported) Allergies Coded Allergies: Latex, Natural Rubber (Verified Allergy, Severe, anaphylaxis, 05/23/19) Penicillins (Verified Allergy, Severe, anaphylaxis, CEPHALOSPORINS [place], 05/23/19) Sulfa (Sulfonamide Antibiotics) (Verified Allergy, Intermediate, hives, 05/23/19) clindamycin (Verified Allergy, Intermediate, Rash/mouth sores/BURNING OF SKIN, 05/23/19) fenofibrate (Verified Allergy, Mild, rash, 05/23/19) SURGICAL ANGIE (Verified Allergy, Unknown, 04/20/19) metformin (Verified Allergy, Unknown, rash, 04/20/19) pineapple (Verified Allergy, Unknown, swollen lips/mouth sores, 04/20/19) YASH VEE MD May 25, 2019 14:45
== END 2019-05-25 10:42 | disposition home or self-care (01) | DRG 683 ==
LOC: M ED 17:21 → M ED INP 23:35 → M MSPAV 05-23 08:22
PROVIDERS: ADMIT Internal Medicine; ATTEND Internal Medicine
DX: N17.9 Acute kidney failure, unspecified (principal); D68.2 Hereditary deficiency of other clotting factors; D80.1 Nonfamilial hypogammaglobulinemia; L40.9 Psoriasis, unspecified; E11.40 Type 2 diabetes mellitus with diabetic neuropathy, unspecified; E11.22 Type 2 diabetes mellitus with diabetic chronic kidney disease; E11.319 Type 2 diabetes mellitus with unspecified diabetic retinopathy without macular edema; M43.06 Spondylolysis, lumbar region; D50.9 Iron deficiency anemia, unspecified; G25.81 Restless legs syndrome; K76.0 Fatty (change of) liver, not elsewhere classified; I12.9 Hypertensive chronic kidney disease with stage 1 through stage 4 chronic kidney disease, or unspecified chronic kidney disease; J45.909 Unspecified asthma, uncomplicated; Z89.512 Acquired absence of left leg below knee; E66.01 Morbid (severe) obesity due to excess calories; F31.9 Bipolar disorder, unspecified; M79.7 Fibromyalgia; K21.9 Gastro-esophageal reflux disease without esophagitis; K59.09 Other constipation; M26.603 Bilateral temporomandibular joint disorder, unspecified; F40.00 Agoraphobia, unspecified; F42.9 Obsessive-compulsive disorder, unspecified; Z86.718 Personal history of other venous thrombosis and embolism; Z79.01 Long term (current) use of anticoagulants; Z79.899 Other long term (current) drug therapy; Z88.0 Allergy status to penicillin; Z88.1 Allergy status to other antibiotic agents; Z88.2 Allergy status to sulfonamides; Z88.8 Allergy status to other drugs, medicaments and biological substances; Z91.018 Allergy to other foods; Z91.040 Latex allergy status; Z91.048 Other nonmedicinal substance allergy status; Z68.38 Body mass index [BMI] 38.0-38.9, adult; N18.9 Chronic kidney disease, unspecified

== ENCOUNTER → 2019-05-29 | Outpatient (REF) | payer OTHER ==
[~2019-05-29] MED LIST changes: +ALBU83IN INH; +COLLAGEN SUPPORT PO; +PROBCAP14 PO; +TRAZ1TAB10 PO; +VITA1CAP25 PO
[2019-05-29 12:37] LABS: CALCIUM LEVEL 8.5 MG/DL (8.5-10.1); CREATININE FOR GFR 1.64 MG/DL (0.55-1.30); GLOMERULAR FILTRATION RATE 35.4 (>58)
== END ==
LOC: M SFHCPLAZ 09:08
PROVIDERS: ATTEND Family Medicine
DX: E11.22 Type 2 diabetes mellitus with diabetic chronic kidney disease (principal)

== ENCOUNTER → 2019-06-08 | Outpatient (CLI) | payer OTHER ==
[~2019-06-08] MED LIST changes: +BENA40TA5 PO; -BENA40TA7 PO; +DOXY-350 PO; -LAMO100T PO; +LAMO100T3 PO; -LAMO200T2 PO; +LAMO200T3 PO; -MAGN400T PO; +MAGN400T3 PO; -MECL-68 PO; +MECL1TAB31 PO; +METH1CAP3 PO; -OMEP40CA2 PO; +OMEP40CA97 PO; +PROAAER10 INH; -TRAZ-163 PO; +TRAZ-257 PO; -VALA1TAB2 PO; +VALA1TAB64 PO
--- NOTE | 2019-06-08 15:21 | REP ---
BILATERAL DIAGNOSTIC MAMMOGRAM WITH 3D TOMOSYNTHESIS, BILATERAL BREAST ULTRASOUND: There is a history of palpable lump in the upper outer quadrant of the right breast and upper inner left breast. These areas are marked on the skin bilaterally. Additional spot compression views are performed in addition to routine MLO and CC views with 3D tomosynthesis. Comparison made with prior studies, most recent of which is 01/24/2019. There is no family history of breast cancer. Tyrer-Cuzick lifetime risk of breast cancer 12.9%. Mild scattered fibroglandular tissue is again seen bilaterally, unchanged. There is no new mass or architectural distortion. No clustered microcalcifications are seen. There are scattered vascular calcifications noted. Real-time sonographic evaluation of palpable lump is performed in the right breast upper outer quadrant and left breast upper inner quadrant. No suspicious cystic or solid mass is seen. IMPRESSION: BIRADS 1: BI-RADS/ACR category 1 mammogram. Negative Mammogram. ACR 1 negative mammogram and bilateral breast ultrasound. There is no mass or clustered microcalcifications. There is no mammographic or sonographic evidence of a suspicious mass at the site of the reported palpable abnormality bilaterally. A negative mammogram and ultrasound should not deter biopsy if there is a clinically suspicious palpable mass present. Recommend followup mammogram in 1 year. This mammogram was interpreted with the aid of an FDA-approved computer-aided detection system. The patient states she/he had a clinical breast exam in 05/2019. The patient letter being requested is M2. Electronically Signed by Jomar Akbar MD 06/10/2019 11:03 P
== END ==
LOC: M RAD 13:33
PROVIDERS: ATTEND Family Medicine
DX: N63.10 Unspecified lump in the right breast, unspecified quadrant (principal); N63.20 Unspecified lump in the left breast, unspecified quadrant
CPT/HCPCS: 76642; 77066; G0279

== ENCOUNTER 2019-06-20 15:14 | Inpatient (IN) | payer OTHER ==
[~2019-06-20] VITALS: Ht 177.8 cm; Wt 124.0 kg
[~2019-06-20 15:14] MED LIST changes: -BENA40TA5 PO; +BENA40TA7 PO; -DOXY-350 PO; +LAMO100T PO; -LAMO100T3 PO; +LAMO200T2 PO; -LAMO200T3 PO; +MAGN400T PO; -MAGN400T3 PO; +MECL-68 PO; -MECL1TAB31 PO; -METH1CAP3 PO; +OMEP40CA2 PO; -OMEP40CA97 PO; -PROAAER10 INH; +TRAZ-163 PO; -TRAZ-257 PO; +VALA1TAB2 PO; -VALA1TAB64 PO
[2019-06-20 16:36] LABS: BASO % 0.3 % (0.0-1.0); EOS # 0.3 10^3/uL (0.0-0.5); EOS % 3.2 % (0.0-3.0); HEMATOCRIT 32.6 % (36.0-47.0); HEMOGLOBIN 11.4 g/dl (12.0-15.5); LYMPH # 1.7 10^3/uL (1.5-5.0); LYMPH % 18.1 % (24.0-44.0); MEAN CORPUSCULAR HEMOGLOBIN 30.3 pg (27.0-33.0); MEAN CORPUSCULAR VOLUME 86.7 fl (80.0-96.0); MONO # 0.6 10^3/uL (0.0-0.8); MONO % 6.1 % (0.0-5.0); NEUTROPHILS # 6.5 10^3/uL (1.5-8.5); NEUTROPHILS % 70.8 % (36.0-66.0); PLATELET COUNT, AUTOMATED 200 10^3/uL (150-450); RED BLOOD COUNT 3.76 10^6/uL (4.00-5.40); WHITE BLOOD COUNT 9.1 10^3/uL (4.0-10.0)
[2019-06-20 17:10] LABS: ALBUMIN 2.9 GM/DL (3.2-5.2); ALT/SGPT 25 U/L (12-78); BILIRUBIN,DIRECT < 0.1 MG/DL (0.0-0.2); BILIRUBIN,TOTAL 0.4 MG/DL (0.2-1.0); BLOOD UREA NITROGEN 26 MG/DL (7-18); CALCIUM LEVEL 8.7 MG/DL (8.5-10.1); CARBON DIOXIDE LEVEL 29 MEQ/L (21-32); CHLORIDE LEVEL 103 MEQ/L (98-107); CPK CREATINE PHOSPHOKINASE 248 U/L (26-192); CREATININE FOR GFR 2.28 MG/DL (0.55-1.30); GLOMERULAR FILTRATION RATE 24.1 (>51); GLUCOSE, FASTING 135 MG/DL (70-100); MB/CK RELATIVE INDEX 1.61 (< OR =4); NT-PRO BNP 146 PG/ML (<125); SODIUM LEVEL 138 MEQ/L (136-145); TOTAL PROTEIN 6.5 GM/DL (6.4-8.2); TROPONIN I 0.06 NG/ML (< 0.10)
--- NOTE | 2019-06-20 17:43 | REP ---
HISTORY: Cough. COMPARISON: 10/06/2018 FINDINGS: The superior mediastinal structures are midline. The cardiac silhouette is unremarkable in size, shape and position. The diaphragmatic surfaces of the lungs are regular and the costophrenic angles are clear. The pulmonary juarez are clear. The imaged osseous structures are intact. IMPRESSION: There is no acute cardiopulmonary disease. No significant change from the prior exam. Electronically Signed by Figueroa Corcoran DO 06/20/2019 07:47 P
[2019-06-20] MEDS ORDERED: ONDANSETRON 4MG/2ML VIAL (J2405) IV ONE (18:45)
[2019-06-20] MEDS ORDERED: NS 1,000 ML IV SCH (18:45)
[2019-06-20] MEDS ORDERED: MORPHINE 4 MG/ML 1ML VIAL/SYRINGE (J2270) IV ONE (18:45)
[2019-06-20] MEDS ORDERED: LevoFLOXacin IV 500 MG in APPROPRIATE DILUENT 1 EA IV ONE (19:00)
[2019-06-20] MEDS ORDERED: SYMB80INH INH (19:52)
[2019-06-20] MEDS ORDERED: PROAAER10 INH (19:52)
[2019-06-20] MEDS ORDERED: LUNE3TAB36 PO (19:52)
[2019-06-20] MEDS: SYMBICORT 80/4.5MCG INHALER 6GM INH SCH (20:00)
--- NOTE | 2019-06-20 20:42 | ECGEPIP ---
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
--- NOTE | 2019-06-20 20:50 | HPEPDOC ---
[facility] Medical History & Physical Date of Admission Jun 20, 2019 Date of Service: Jun 20, 2019 Primary Care Physician: RIAZ LOPEZ MD Attending Physician: SINCERE ARAGON MD History and Physical TIME OF SERVICE: 9:40 PM CHIEF COMPLAINT: Toe redness and swelling HISTORY OF PRESENT ILLNESS: This is 49-year-old female who presents with complaints of redness and swelling affecting the first 3 toes on the right foot for 2 weeks. Over the last 2 days the redness has extended from the toes, to the foot, and up to the lower leg; she also has some redness at the mid aspect of the right thigh. She reports that she may have bumped her toes but she wouldn't have felt it because she has diminished sensation in her feet. She currently denies having any pain in the feet or the toes. She denies having fevers and denies having vomiting. She has had some chills and nausea. She had the last 2 toes on the right foot amputated. Because she has multiple allergies she received Levaquin in the ED. She is also concerned that she hasn't urinated in over 48 hours despite taking Flomax; she thinks that this may be related to her diabetes; in the past she has had to have a Bishop placed. REVIEW OF SYSTEMS: 12 point review of systems negative except as listed in HPI PAST MEDICAL /SURGICAL HISTORY: 1. 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 Lumbar spondylolysis /Chronic lower back pain /Fibromyalgia. 3. Dyslipidemia 4. Iron deficiency anemia / Restless Leg syndrome 5. DVTs 2/2 Factor V Leiden deficiency. 6. Hepatic steatosis. 7. Hypogammaglobulinemia. 9. Chronic hypertension 10. Chronic asthma 11. Sleep apnea, noncompliant with CPAP 12. GERD 13. Agoraphobia, anxiety / Bipolar / OCD 14. Temporal lobe seizure. 15. Temporal mandibular joint dysfunction bilaterally. 16. Psoriasis. 17. History of C. difficile s/p fecal transplantation in 2017 18. Chronic Constipation 19. s/p Hysterectomy 20. s/p Appendectomy 21. s/p bilateral carpal tunnel surgery 22. s/p Cervical discectomy with fusion of C5-C6. 23. s/p Cholecystectomy. SOCIAL HISTORY: Lives with her Denies drinking, smoking or recreational drug use. FAMILY HISTORY: Father from heart disease, Brother also had congenital heart disease. Mother had CVA ALLERGIES: Please see below. HOME MEDICATIONS: Please see below. PHYSICAL EXAMINATION: VITAL SIGNS: Please see below. GENERAL APPEARANCE: Obese, well-developed, not in apparent distress, does not appear toxic HEENT: Normocephalic, atraumatic, mucous members moist and pink CARDIOVASCULAR: Regular rate and rhythm, no murmurs, rubs or gallops, LUNGS: Clear to auscultation bilaterally on room air ABDOMEN: Soft and nontender on palpation. Bowel sounds hypoactive MUSCULOSKELETAL: Range of motion intact in upper extremities, the patient has a left sided BKA. The prosthesis is lying on the bed beside her. She has amputation of the fourth and fifth toes on the right foot. There is redness, and swelling of the first 3 toes on the right foot. The redness extends to the dorsal surface of the foot; there is also some redness tracking up the anterior aspect of the right lower extremity. There is also a small spot of redness at the medial aspect of the right upper leg INTEGUMENT: See above NEUROLOGICAL: Cranial nerves II-12 are grossly intact. Speech is not dysarthric PSYCHIATRIC: Alert and oriented to person, place and time, able to understand and follow commands LABORATORY DATA: See below. IMAGING: Chest x-rays are unremarkable. X-ray of the foot is pending MICROBIOLOGY: Please see below. ASSESSMENT: Ms. Torres is a 49-year-old female with a past medical history that includes diabetes complicated by retinopathy, neuropathy, foot ulcers and amputations, chronic hypertension, asthma, DVTs 2/2 factor V Ley[place] deficiency, and sleep apnea. She will be admitted for management of cellulitis affecting the right foot and right lower leg, and MELODY on CKD. PLAN: 1. Cellulitis affecting the toes, right foot and right lower leg Predisposing factors include diabetic neuropathy, and obesity WBC # within normal limits X-ray of the foot is pending She received levaquin in the ED Plan: fall precautions / elevate leg / f/u ESR, CRP and x-ray report / no need for blood cx bc she doesn't have SIRS criteria / will switch to PO Doxycyclin tomorrow / the daytime team may consider ID consult in the morning 2. Anuria Suspect that this is due to neurogenic bladder due to diabetes. Plan: Continue with Flomax/intermittent catheterization every 4 hours / day time team may consider urology consult 3.MELODY on CKD MELODY may be due to obstructive uropathy / neurogenic bladder. Her creatine was previously 1.64, today it is 2.28. Her baseline GFR is around 40. Today it's 24.1 Plan: f/u Is/Os, daily weights / UA / f/u ulytes for FENa or FEUrea, UPro:Cr, renal US / avoid nephrotoxins/hold Benzapril 4. Insulin-dependent type 2 diabetes She has multiple complications including neuropathy and retinopathy, foot ulcers, s/p amputation of the last 2 toes on the right foot, and left BKA, and possibly neurogenic bladder Her A1c was 11.8% in May Plan: Follow-up Accu-Cheks/hypoglycemia protocol/continue with Tresiba 160 units subcutaneously twice a day, lispro 1 unit subcutaneously 3 times a day along with sliding scale insulin 5. Chronic asthma Plan: Continue home meds 6. Chronic hypertension Plan: Continue home meds except for Benzapril 7. DVTs 2/2 Factor V Leiden deficiency. Plan: Continue with apixaban 8. Lumbar spondylolysis /Chronic lower back pain /Fibromyalgia Plan: Continue home meds 9. Temporal lobe seizure Plan: Continue home meds 10. GERD Plan: Continue home meds 11. Agoraphobia, anxiety / Bipolar / OCD Plan: Continue home meds 12. Morbid obesity BMI 30.8 Plan:-BMI >35 + DM = candidate for bariatric surgery Plan: can f/u w PCP for [employer] developer consult & referral for Bariatric surgery / recommend cardiovascular exercise for 40 min 4-5 days a week DVT prophylaxis with apixaban Disposition pending clinical course Vital Signs Vital Signs Date Time Temp Pulse Resp B/P (MAP) Pulse Ox O2 Delivery O2 Flow Rate FiO2 06/20/19 20:13 16 06/20/19 20:01 80 06/20/19 20:00 126/69 (88) 06/20/19 17:59 93 06/20/19 15:15 97.3 Room Air Laboratory Data Labs 24H Laboratory Tests 2 06/20/19 16:10: Lactic Acid Level 1.1 06/20/19 16:26: Immature Granulocyte % (Auto) 1.5, White Blood Count 9.1, Red Blood Count 3.76L, Hemoglobin 11.4L, Hematocrit 32.6L, Mean Corpuscular Volume 86.7, Mean Corpuscular Hemoglobin 30.3, Mean Corpuscular Hemoglobin Concent 35.0, Red Cell Distribution Width 13.7, Platelet Count 200, Neutrophils (%) (Auto) 70.8H, Lymphocytes (%) (Auto) 18.1L, Monocytes (%) (Auto) 6.1H, Eosinophils (%) (Auto) 3.2H, Basophils (%) (Auto) 0.3, Neutrophils # (Auto) 6.5, Lymphocytes # (Auto) 1.7, Monocytes # (Auto) 0.6, Eosinophils # (Auto) 0.3, Basophils # (Auto) 0.0, Nucleated Red Blood Cells % (auto) 0.0, Anion Gap 6L, Glomerular Filtration Rate 24.1L, Calcium Level 8.7, Aspartate Amino Transf (AST/SGOT) 23, Alanine Aminotransferase (ALT/SGPT) 25, Alkaline Phosphatase 108, Total Bilirubin 0.4, Direct Bilirubin < 0.1, Total Creatine Kinase 248H, Creatine Kinase MB 4.0H, Creatine Kinase MB Relative Index 1.61, Troponin I 0.06, RL-Yez-W-Type Natriuretic Peptide 146H, Total Protein 6.5, Albumin 2.9L, Albumin/Globulin Ratio 0.81L, Thyroid Stimulating Hormone (TSH) 1.780 06/20/19 18:20: Bedside Glucose (Misc Panel) 108H CBC/BMP Laboratory Tests 06/20/19 16:26 Red Blood Count 3.76 L, Mean Corpuscular Volume 86.7, Mean Corpuscular Hemoglobin 30.3, Mean Corpuscular Hemoglobin Concent 35.0, Red Cell Distribution Width 13.7, Neutrophils (%) (Auto) 70.8 H, Lymphocytes (%) (Auto) 18.1 L, Mon ocytes (%) (Auto) 6.1 H, Eosinophils (%) (Auto) 3.2 H, Basophils (%) (Auto) 0.3, Neutrophils # (Auto) 6.5, Lymphocytes # (Auto) 1.7, Monocytes # (Auto) 0.6, Eosinophils # (Auto) 0.3, Basophils # (Auto) 0.0 Microbiology Microbiology 06/20/19 Blood Culture, Received Pending 06/20/19 Blood Culture, Received Pending Home Medications Scheduled Amlodipine Besylate (Amlodipine Besylate) 10 Mg Tab, 10 MG PO QHS Apixaban (Eliquis) 5 Mg Tab, 5 MG PO BID Benazepril HCl (Benazepril HCl) 40 Mg Tab, 40 MG PO QHS Budesonide/Formoterol (Symbicort 80-4.5 Mcg Inhaler) 6.9 Gm Hfa.aer.ad, 2 PUFF INH BID Carvedilol (Carvedilol) 25 Mg Tab, 25 MG PO BID Cholecalciferol (Vitamin D3) (Vitamin D3) 50,000 Unit Capsule, 50,000 UNIT PO 1XWK TAKES ON TUESDAY Cyclobenzaprine HCl (Cyclobenzaprine HCl) 10 Mg Tab, 10 MG PO TID Cyclosporine (Restasis) 0.05 % Emu, 1 DROP OU BID USES PRN Dexlansoprazole (Dexilant) 60 Mg Cap, 60 MG PO QHS Duloxetine Hcl (Duloxetine HCl) 60 Mg Cap, 120 MG PO QHS Eszopiclone (Lunesta) 3 Mg Tablet, 3 MG PO QHS Exenatide Microspheres (Bydureon) 2 Mg Inj, 1 INJ SC 1XWK USES ON TUESDAYS Insulin Degludec (Tresiba Flextouch U-200) 200 Unit/Ml Inj, 160 UNIT SC BID Insulin Lispro (Humalog Kwikpen U-200) 200 Unit/Ml Inj, 1 UNITS SC TID sliding scale Lactobacillus Acidophilus (Probiotic) 1 Each Capsule, 1 CAP PO QHS Magnesium Chloride (Mag64) 64 Mg Tabcr, 64 MG PO QHS Montelukast Sodium (Montelukast Sodium) 10 Mg Tab, 10 MG PO QHS Nystatin (Nystatin Powder) 15 Gm Powder, 1 APLCT TOP BID apply to affected area(s) UNDER BREASTS Pregabalin (Lyrica) 300 Mg Cap, 300 MG PO BID Quetiapine Fumarate (Seroquel) 300 Mg Tab, 600 MG PO QHS Ranitidine HCl (Ranitidine HCl) 150 Mg Tab, 1 TAB PO QHS Ropinirole HCl (Ropinirole HCl) 2 Mg Tab, 2 MG PO BID TAKES AT 1800 AND 0000 Tamsulosin HCl (Flomax) 0.4 Mg Cap, 0.4 MG PO QHS Torsemide (Torsemide) 20 Mg Tablet, 20 MG PO BID [Collagen Support] , 1 TAB PO DAILY Scheduled PRN Albuterol Sulf (Albuterol Sulfate) 2.5 Mg/3 Ml Vial.neb, 1 INH INH Q4H PRN for wheezing Albuterol Sulfate (Proair Hfa) 8.5 Gm Hfa.aer.ad, 2 PUFF INH Q6H PRN for SHORTNESS OF BREATH Epinephrine (Epipen 2-Thomas) 0.3 Mg/0.3 Ml Inj, 0.3 MG SC PRN PRN for ALLERGIC REACTION Hydrocodone/Acetaminophen ([place] 10-325 Tablet) 1 Tab Tab, 1 TAB PO Q4H PRN for PAIN Allergies Coded Allergies: Latex, Natural Rubber (Verified Allergy, Severe, anaphylaxis, 05/23/19) Penicillins (Verified Allergy, Severe, anaphylaxis, CEPHALOSPORINS [place], 05/23/19) Sulfa (Sulfonamide Antibiotics) (Verified Allergy, Intermediate, hives, 05/23/19) clindamycin (Verified Allergy, Intermediate, Rash/mouth sores/BURNING OF SKIN, 05/23/19) fenofibrate (Verified Allergy, Mild, rash, 05/23/19) SURGICAL ANGIE (Verified Allergy, Unknown, 04/20/19) metformin (Verified Allergy, Unknown, rash, 04/20/19) pineapple (Verified Allergy, Unknown, swollen lips/mouth sores, 04/20/19) A-FIB/CHADSVASC A-FIB History Current/History of A-Fib/PAF?: No Current PO Anticoag Therapy: SINCERE Singh MD Jun 20, 2019 20:50
[2019-06-20] MEDS: MAGNESIUM CHLORIDE 64 MG TABCR (SLO MAG) PO SCH (21:00)
[2019-06-20] MEDS: QUEtiapine FUMARATE 200 MG TAB PO SCH (21:00)
[2019-06-20] MEDS ORDERED: LUNESTA 3 MG PO SCH (21:00)
[2019-06-20 21:09] LABS: C REACTIVE PROTEIN QUANTITATIV 2.39 MG/DL (0.00-0.30)
[2019-06-20 21:52] LABS: ERYTHROCYTE SEDIMENTATION RATE 74 mm/hr (0-30)
[2019-06-20 23:30] VITALS: BP 176/72
[2019-06-20] MEDS ORDERED: ALBUTEROL SULFATE 2.5 MG/0.5 ML INH NEB SOLN INH PRN (23:45)
[2019-06-20] MEDS ORDERED: ALBUTEROL 90 MCG/ACT 8GM HFA INHALER INH PRN (23:45)
[2019-06-21] MEDS: CYCLOBENZAPRINE 10 MG TAB PO SCH ×4 (00:16→22:00)
[2019-06-21] MEDS: ANEXSIA, NORCO 7.5MG/325MG TABLET(HYDROCODONE/APAP) PO PRN ×4 (00:17→16:17)
[2019-06-21] MEDS: TAMSULOSIN 0.4 MG CAP PO SCH ×2 (01:17→22:01)
[2019-06-21] MEDS: CARVedilol 12.5 MG TAB PO SCH ×3 (01:17→22:02)
[2019-06-21] MEDS: MONTELUKAST 10 MG TAB PO SCH ×2 (01:17→22:01)
[2019-06-21] MEDS: amLODIPine 10 MG TAB PO SCH ×2 (01:17→22:02)
[2019-06-21] MEDS: APIXABAN 5 MG TAB (ELIQUIS) PO SCH ×3 (01:17→22:04)
[2019-06-21] MEDS: FAMOTIDINE 20 MG TAB PO SCH ×2 (01:18→22:00)
[2019-06-21] MEDS: rOPINIRole 1MG TAB PO SCH ×2 (01:18→17:57)
[2019-06-21] MEDS: OMEPRAZOLE 20 MG CAP PO SCH ×3 (01:18→22:01)
[2019-06-21] MEDS: DULoxetine 30 MG CAP (CYMBALTA) PO SCH ×2 (01:18→22:01)
[2019-06-21] MEDS: PREGABALIN 100 MG CAP (LYRICA) PO SCH ×3 (01:18→22:00)
[2019-06-21 06:00] VITALS: BP 165/74
--- NOTE | 2019-06-21 07:00 | REPVR ---
EXAM: US Retroperitoneal Limited, Kidneys EXAM DATE/TIME: 06/21/2019 6:49 AM CLINICAL HISTORY: 49 years old, female; Abdominal pain; Additional info: Obi TECHNIQUE: Imaging protocol: Real-time ultrasound of the retroperitoneum with image documentation. Examination was focused on the kidneys. COMPARISON: RENAL US 05/22/2019 11:56 PM FINDINGS: Right kidney: The right kidney measures 10.1 cm in its cephalocaudad dimension and 4.9 x 4.5 cm in diameter. No gross mass or cyst. No hydronephrosis. Left kidney: The left kidney measures 11.2 cm in its cephalocaudad dimension and 5.6 x 4.6 cm in diameter. Question of minimal mid kidney nonobstructing calculus. No mass, cyst or hydronephrosis. Bladder: The urinary bladder appears grossly normal. No ureteral jets are seen. Other findings: Limited visualization of the kidneys due to body habitus. IMPRESSION: 1. Question of minimal nonobstructing left renal calculus. 2. Otherwise negative renal sonogram. No hydronephrosis. Electronically signed by: John Lion On 06/21/2019 07:00:01 AM
[2019-06-21 07:48] LABS: HEMATOCRIT 32.1 % (36.0-47.0); MEAN CORPUSCULAR HEMOGLOBIN 29.9 pg (27.0-33.0); MEAN CORPUSCULAR HGB CONC 34.3 g/dl (32.0-36.5); MEAN CORPUSCULAR VOLUME 87.2 fl (80.0-96.0); PLATELET COUNT, AUTOMATED 166 10^3/uL (150-450); RED BLOOD COUNT 3.68 10^6/uL (4.00-5.40)
--- NOTE | 2019-06-21 07:58 | REP ---
Clinical: Cellulitis. Technique: Portable AP, lateral, bilateral oblique views of the right foot. Comparison: None. Findings: Evidence for partial amputation through the fifth metatarsal bone is appreciated along with overlying soft tissue swelling and possible ulceration. The osseous structures demonstrate generalized degenerative and neuropathic changes to the midfoot. No significant osseous destructive changes or periosteal reaction is appreciated to suggest osteomyelitis. Impression: Soft tissue swelling and possible skin ulceration. No definite radiographic evidence to suggest osteomyelitis. Electronically Signed by Clint Sullivan MD 06/21/2019 07:49 A
[2019-06-21] MEDS ORDERED: SYMBICORT 80/4.5MCG INHALER 6GM INH SCH (08:00)
[2019-06-21 08:12] LABS: CALCIUM LEVEL 8.5 MG/DL (8.5-10.1); CREATININE FOR GFR 2.32 MG/DL (0.55-1.30); GLOMERULAR FILTRATION RATE 23.7 (>51); POTASSIUM SERUM 4.7 MEQ/L (3.5-5.1)
[2019-06-21] MEDS: DOXYCYCLINE HYCLATE 100 MG TAB PO SCH ×2 (08:26→22:05)
[2019-06-21] MEDS: HumaLOG INSULIN (NovoLOG) PER UNIT SC SCH ×4 (08:27→22:00)
[2019-06-21] MEDS: NS 1,000 ML IV SCH ×2 (08:30→22:06)
[2019-06-21] MEDS: SYMBICORT 80/4.5MCG INHALER 6GM INH SCH ×2 (08:31→20:00)
[2019-06-21] MEDS ORDERED: HumaLOG INSULIN (NovoLOG) PER UNIT SC SCH (09:00)
[2019-06-21] MEDS ORDERED: TORSEMIDE 20 MG TAB PO SCH (09:00)
[2019-06-21 10:00] VITALS: BP 139/61
[2019-06-21] MEDS ORDERED: NS 1,000 ML IV SCH (10:15)
[2019-06-21] MEDS: TRESIBA U SC SCH ×2 (12:23→21:00)
[2019-06-21 14:00] VITALS: BP 97/59
--- NOTE | 2019-06-21 14:18 | IPNPDOC ---
Text Note Date of Service The patient was seen on 06/21/19. NOTE Subjective: Patient was seen and examined at bedside. Patient says she is feeling about the same as she did yesterday. She is complaining that her mouth is very dry. Patient says that the rash that she had when she first came in is slowly getting better. She does say her chronic wounds on her feet do look a little bit worse. Patient does not have any other acute complaints today. Review of systems General: Patient denies fevers HEENT: Patient denies headaches Cardiovascular: Patient denies chest pain Respiratory: Patient denies shortness of breath, cough GI: Patient denies abdominal pain, nausea, vomiting, diarrhea : Patient denies pain or difficulty with urination Neurological: Patient denies numbness or tingling in extremities Extremities: Patient has a below the knee amputation of left leg. She says her right leg is feeling better except for one spot on her inner thigh just above the knee. Objective: Vitals: (see below) General: No acute distress, laying comfortably in bed. HEENT: Normocephalic, atraumatic, dry mucous membranes. Neck: No JVD or lymphadenopathy Cardiac: RRR, No murmurs Pulm: Clear to auscultation b/l. No wheezing, rhonchi Abd: NT/ND + BS Ext: Patient has a below the knee amputation of the left leg. The areas erythema have retreated from the lines that were drawn last night. There is one area of tenderness to palpation in the center an area drawn on the medial aspect of the thigh superior to the knee. There is some trace pitting edema about the gomez of the right leg. Labs (see below) Images: A renal ultrasound performed on 06/21/2019 showed question of minimal nonobstructing left renal calculus but otherwise negative renal sonogram with no hydronephrosis. Assessment/Plan 1. Cellulitis affecting the first, second, and third toes as well as an area of the gomez and thigh of the right leg. Patient has been switched to by mouth dox ycycline and we will continue to monitor. Because this is been chronic with wounds her foot and MRI has been ordered to rule out osteomyelitis. Patient has had a history of osteomyelitis in her other leg which has caused her to have a below the knee amputation. 2. Anurea. Patient will be continue with Flomax and intermittent catheterization. Patient has been started on normal saline for fluid hydration as the patient appears dehydrated. 3. Acute kidney injury on chronic kidney disease. Patient will be started on normal saline at a rate of 85 mL per hour. 4. Insulin-dependent type 2 diabetes. Patient is currently on sliding scale insulin and patient's home tresiba. 5. Chronic asthma without evidence of exacerbation. Continue home medications. 6. Chronic hypertension. Continue with home meds except for Benazepril 7. DVTs secondary to factor V Leiden deficiency. Patient is on eliquis. 8. Lumbar spondylosis/chronic back pain/fibromyalgia. Continue with home medications. 9. Temporal lobe seizure. Continue home medications. 10. GERD. Continue home medications. 11. Agorahobia, anxiety/bipolar/OCD. Continue with home medications. 12. Morbid obesity. Patient's BMI is 37 with diabetes mellitus. She is a candidate for bariatric surgery. She should follow up with her primary care physician. DVT prophy: Eliquis Dispo: Pending clinical improvement of acute kidney injury as well as results of MRI. I saw and evaluated the patient. I agree with the findings and plan of care as documented in the above note VS,Pam, I+O VS, Pam, I+O Laboratory Tests 06/20/19 16:26 Red Blood Count 3.76 L, Mean Corpuscular Volume 86.7, Mean Corpuscular Hemoglobin 30.3, Mean Corpuscular Hemoglobin Concent 35.0, Red Cell Distribution Width 13.7, Neutrophils (%) (Auto) 70.8 H, Lymphocytes (%) (Auto) 18.1 L, Monocytes (%) (Auto) 6.1 H, Eosinophils (%) (Auto) 3.2 H, Basophils (%) (Auto) 0.3, Neutrophils # (Auto) 6.5, Lymphocytes # (Auto) 1.7, Monocytes # (Auto) 0.6, Eosinophils # (Auto) 0.3, Basophils # (Auto) 0.0 06/21/19 07:38 Red Blood Count 3.68 L, Mean Corpuscular Volume 87.2, Mean Corpuscular Hemoglobin 29.9, Mean Corpuscular Hemoglobin Concent 34.3, Red Cell Distribution Width 13.6, Calcium Level 8.5 Vital Signs Date Time Temp Pulse Resp B/P (MAP) Pulse Ox O2 Delivery O2 Flow Rate FiO2 06/21/19 10:51 18 06/21/19 10:00 100.7 77 139/61 (87) 96 06/20/19 15:15 Room Air I&O- Last 24 Hours up to 6 AM 06/21/19 06:00 Intake Total 480 ml Output Total 500 ml Balance -20 ml EUSEBIA VARGAS DO Jun 21, 2019 14:18 BELL ALBERTO MD Jun 23, 2019 10:42
--- NOTE | 2019-06-21 15:59 | REP ---
MRI RIGHT FOOT WITHOUT CONTRAST: TECHNIQUE: Multiple sequences obtained in the axial, coronal and sagittal planes. There is increased signal in the third distal phalanx on T2-weighted images. Osteomyelitis at that location could not be excluded. Clinical correlation is suggested. Otherwise, there is no marrow edema suggestive of osteomyelitis in the remaining osseous structures of the right foot. There are diffuse arthritic changes at the intertarsal joints with scattered subchondral cystic changes and mild subchondral marrow edema. There is focal subchondral avascular necrosis in the talar dome. There is an old fracture of the navicular bone with displaced fragments dorsally, with the talar head abutting the cuneiform bones. Flexor and extensor tendons are essentially unremarkable without significant tenosynovitis. There is very mild fluid surrounding the flexor halluces longus tendon in the midfoot. Visualized tendons and ligaments at the ankle appear intact. There is diffuse subcutaneous soft tissue edema. Diffuse high signal is seen in the deep plantar soft tissues. There is suspected associated cellulitis clinically. I do not see a focal fluid collection or abscess. IMPRESSION: Somewhat limited exam due to patient motion and lack of IV contrast. Evaluation for osteomyelitis is limited. However, there does appear to be marrow edema in the third distal phalanx. This is a nonspecific finding. It could be due to bone bruising but osteomyelitis cannot be excluded. Please correlate clinically. Diffuse edema and likely cellulitis in the soft tissues without evidence of focal fluid collection or abscess. Diffuse arthritic changes of the intertarsal joints with mild scattered subchondral cystic change and marrow edema. There is chronic collapse and fracture of the navicular bone with dorsal displacement of fragments, the talar head abutting the cuneiform bones. 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 Electronically Signed by Jomar Akbar MD 06/21/2019 04:42 P
[2019-06-21 20:41] VITALS: BP 149/70
[2019-06-21] MEDS: QUEtiapine FUMARATE 200 MG TAB PO SCH (22:04)
[2019-06-21] MEDS: MAGNESIUM CHLORIDE 64 MG TABCR (SLO MAG) PO SCH (22:06)
[2019-06-22] MEDS: rOPINIRole 1MG TAB PO SCH ×3 (00:51→23:52)
[2019-06-22] MEDS: LEVEMIR (INSULIN DETEMIR) 1 UNITS/0.01ML SC SCH ×3 (00:51→21:29)
[2019-06-22] MEDS: ANEXSIA, NORCO 7.5MG/325MG TABLET(HYDROCODONE/APAP) PO PRN ×3 (03:19→17:38)
[2019-06-22 06:42] LABS: HEMOGLOBIN 9.6 g/dl (12.0-15.5); MEAN CORPUSCULAR HEMOGLOBIN 29.3 pg (27.0-33.0); MEAN CORPUSCULAR HGB CONC 34.3 g/dl (32.0-36.5); MEAN CORPUSCULAR VOLUME 85.4 fl (80.0-96.0); PLATELET COUNT, AUTOMATED 160 10^3/uL (150-450); RED BLOOD COUNT 3.28 10^6/uL (4.00-5.40); WHITE BLOOD COUNT 4.8 10^3/uL (4.0-10.0)
[2019-06-22 06:44] VITALS: BP 143/71
[2019-06-22 07:09] LABS: CALCIUM LEVEL 8.8 MG/DL (8.5-10.1); CREATININE FOR GFR 2.03 MG/DL (0.55-1.30); GLOMERULAR FILTRATION RATE 27.6 (>51); POTASSIUM SERUM 4.5 MEQ/L (3.5-5.1)
[2019-06-22] MEDS: SYMBICORT 80/4.5MCG INHALER 6GM INH SCH ×2 (07:42→19:34)
[2019-06-22] MEDS: HumaLOG INSULIN (NovoLOG) PER UNIT SC SCH ×4 (07:50→21:00)
[2019-06-22] MEDS: PREGABALIN 100 MG CAP (LYRICA) PO SCH ×2 (07:51→21:26)
[2019-06-22] MEDS: DOXYCYCLINE HYCLATE 100 MG TAB PO SCH ×2 (07:51→21:27)
[2019-06-22] MEDS: OMEPRAZOLE 20 MG CAP PO SCH ×2 (07:51→21:26)
[2019-06-22] MEDS: CARVedilol 12.5 MG TAB PO SCH ×2 (07:51→21:27)
[2019-06-22] MEDS: CYCLOBENZAPRINE 10 MG TAB PO SCH ×3 (07:52→21:26)
[2019-06-22] MEDS: NS 1,000 ML IV SCH ×2 (07:52→19:42)
[2019-06-22] MEDS: APIXABAN 5 MG TAB (ELIQUIS) PO SCH ×2 (07:52→21:27)
[2019-06-22] MEDS: TRESIBA U SC SCH ×2 (09:00→21:00)
[2019-06-22 15:57] VITALS: BP 140/65
--- NOTE | 2019-06-22 17:05 | IPNPDOC ---
Text Note Date of Service The patient was seen on 06/22/19. NOTE Subjective: Patient is seen and examined at bedside. She is sitting up in bed. She says she's feeling a little bit better than she did yesterday however, her mouth is still very dry. She has been eating and drinking a little bit more. She says the wounds on her feet are bothering her. Patient did have an MRI yesterday and the results are below. Patient had no acute events overnight. Review of systems General: Patient denies fevers HEENT: Patient denies headaches Cardiovascular: Patient denies chest pain Respiratory: Patient denies shortness of breath, cough GI: Patient denies abdominal pain, nausea, vomiting, diarrhea : Patient denies pain or difficulty with urination Neurological: Patient denies numbness or tingling in extremities Extremities: Patient says the areas of cellulitis are getting slightly better however, there are still areas of tenderness. Objective: Vitals: (see below) General: No acute distress, laying comfortably in bed. HEENT: Normocephalic, atraumatic, moist mucous membranes. Neck: No JVD or lymphadenopathy Cardiac: RRR, No murmurs Pulm: Clear to auscultation b/l. No wheezing, rhonchi Abd: NT/ND + BS Ext: There is trace edema in the right lower extremity. There is 2 areas of erythema that have decreased in size based on the lines that were drawn 36 hours ago. The one on the right upper thigh is tubular splitting machine tender to the touch. Patient has a wound on the dorsal aspect of the second and third toes on the right foot. Patient has a below the knee amputation on the left leg. Labs (see below) Images: MRI foot without contrast performed on 06/21/2019 showed somewhat limited exam due to patient motion and lack of IV contrast. Evaluation for ost eomyelitis is limited however, there does appear to be marrow edema in the third distal phalanx. This is a nonspecific finding. It could be due to bone bruising but osteomyelitis cannot be excluded. Diffuse edema and likely cellulitis in the soft tissues without full evidence of focal fluid collection or abscess. Diffuse arthritic changes of the intertarsal joints with mild scattered subchondral c ystic change in marrow edema. There is chronic collapse and fracture of the navicular bone with dorsal displacement of fragments, the talar head abutting the cuneiform bones. 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 Assessment/Plan 1. Cellulitis affecting the first, second, and third toes as well as areas of the gomez and thigh of the right leg. Patient is on doxycycline and will continue to monitor. We have consulted Dr. Guerra of podiatry for further wound care and evaluation. We appreciate Dr. Guerra's help treating this patient. 2. Anurea, improved. Patient has been able to urinate. Patient is on IV fluid resuscitation at 85 mL per hour. 3. Acute kidney injury on chronic kidney disease. Patient is on normal saline at rate of 85 mL per hour. We will continue to monitor. 4. Insulin-dependent type 2 diabetes. Patient is currently on sliding scale insulin and her home tresiba. 5. Chronic asthma without evidence of exacerbation. Continue with home medications. 6. Chronic hypertension. Continue with home medications except for Benazepril 7. DVT secondary to factor V Leiden deficiency. Patient is on eliquis. 8. Lumbar spondylosis/chronic back pain/lumbar myalgia. Continue with home medications. 9. Temporal lobe seizures. Continue with home medications. 10. GERD. Continue home medications. 11. [place] phobia, anxiety/bipolar/OCD. Continue with home medications. 12. Morbid obesity. Patient's BMI is 37 and she has diabetes mellitus. She is a candidate for bariatric surgery and should follow up with her primary care physician. DVT prophy: Bony Dispo: Pending clinical improvement I saw and evaluated the patient. I agree with the findings and plan of care as documented in the above note VSPam, I+O VSPam, I+O Laboratory Tests 06/22/19 05:34 Red Blood Count 3.28 L, Mean Corpuscular Volume 85.4, Mean Corpuscular Hemoglobin 29.3, Mean Corpuscular Hemoglobin Concent 34.3, Red Cell Distribution Width 13.3, Calcium Level 8.8 Vital Signs Date Time Temp Pulse Resp B/P (MAP) Pulse Ox O2 Delivery O2 Flow Rate FiO2 06/22/19 15:57 98.6 68 17 140/65 (90) 96 06/20/19 15:15 Room Air I&O- Last 24 Hours up to 6 AM 06/22/19 06:00 Intake Total 1650 ml Output Total 100 ml Balance 1550 ml EUSEBIA VARGAS DO Jun 22, 2019 17:05 BELL ALBERTO MD Jun 23, 2019 10:47
[2019-06-22] MEDS: FAMOTIDINE 20 MG TAB PO SCH (21:25)
[2019-06-22] MEDS: MONTELUKAST 10 MG TAB PO SCH (21:26)
[2019-06-22] MEDS: DULoxetine 30 MG CAP (CYMBALTA) PO SCH (21:26)
[2019-06-22 21:27] VITALS: BP 140/65
[2019-06-22] MEDS: amLODIPine 10 MG TAB PO SCH (21:27)
[2019-06-22] MEDS: TAMSULOSIN 0.4 MG CAP PO SCH (21:27)
[2019-06-22] MEDS: MAGNESIUM CHLORIDE 64 MG TABCR (SLO MAG) PO SCH (21:28)
[2019-06-22] MEDS: QUEtiapine FUMARATE 200 MG TAB PO SCH (21:36)
[2019-06-22 22:00] VITALS: BP 139/70
[2019-06-23] MEDS: ANEXSIA, NORCO 7.5MG/325MG TABLET(HYDROCODONE/APAP) PO PRN ×2 (02:55→08:22)
[2019-06-23 06:00] VITALS: BP 121/84
[2019-06-23 07:30] LABS: HEMATOCRIT 29.5 % (36.0-47.0); HEMOGLOBIN 10.2 g/dl (12.0-15.5); MEAN CORPUSCULAR HEMOGLOBIN 30.3 pg (27.0-33.0); MEAN CORPUSCULAR HGB CONC 34.6 g/dl (32.0-36.5); MEAN CORPUSCULAR VOLUME 87.5 fl (80.0-96.0); PLATELET COUNT, AUTOMATED 168 10^3/uL (150-450); RED BLOOD COUNT 3.37 10^6/uL (4.00-5.40); WHITE BLOOD COUNT 4.5 10^3/uL (4.0-10.0)
[2019-06-23 07:48] LABS: CALCIUM LEVEL 8.9 MG/DL (8.5-10.1); CREATININE FOR GFR 1.55 MG/DL (0.55-1.30); GLOMERULAR FILTRATION RATE 37.7 (>51); POTASSIUM SERUM 4.3 MEQ/L (3.5-5.1)
[2019-06-23 07:53] LABS: HEMOGLOBIN A1c 10.1 %
[2019-06-23] MEDS: SYMBICORT 80/4.5MCG INHALER 6GM INH SCH (08:00)
[2019-06-23] MEDS: DOXYCYCLINE HYCLATE 100 MG TAB PO SCH (08:07)
[2019-06-23] MEDS: OMEPRAZOLE 20 MG CAP PO SCH (08:07)
[2019-06-23] MEDS: APIXABAN 5 MG TAB (ELIQUIS) PO SCH (08:07)
[2019-06-23] MEDS: PREGABALIN 100 MG CAP (LYRICA) PO SCH (08:07)
[2019-06-23] MEDS: NS 1,000 ML IV SCH (08:08)
[2019-06-23] MEDS: CYCLOBENZAPRINE 10 MG TAB PO SCH (08:08)
[2019-06-23] MEDS: CARVedilol 12.5 MG TAB PO SCH (08:08)
[2019-06-23] MEDS: HumaLOG INSULIN (NovoLOG) PER UNIT SC SCH (08:09)
[2019-06-23] MEDS: LEVEMIR (INSULIN DETEMIR) 1 UNITS/0.01ML SC SCH (08:09)
[2019-06-23] MEDS: TRESIBA U SC SCH (09:00)
[2019-06-23] MEDS ORDERED: DOXY-350 PO (11:26)
--- NOTE | 2019-06-23 12:00 | DS.PDOC ---
Discharge Summary General Date of Admission Jun 22, 2019 at 13:42 Date of Discharge 06/23/19 Primary Care Physician: RIAZ LOPEZ MD Attending Physician: BELL ALBERTO MD Specialist/Consultants Involve: Yung Guerra Discharge Summary PROCEDURES PERFORMED DURING STAY: None. ADMITTING/DISCHARGE DIAGNOSES: 1. Cellulitis affecting the first, second, and third toes as well as areas of the gomez and thigh of the right leg. 2. Anurea, resolved 3. Acute kidney injury on chronic kidney disease, improving 4. Insulin-dependent type 2 diabetes mellitus 5. Chronic asthma without evidence of acute exacerbation 6. Chronic hypertension 7. DVT secondary to factor V Leiden deficiency 8. Lumbar spondylosis/chronic back pain/fibromyalgia 9. Temporal lobe seizures. 10. GERD 11. [place] phobia 12. Morbid obesity COMPLICATIONS/CHIEF COMPLAINT:: Toe redness and swelling HISTORY OF PRESENT ILLNESS/HOSPITAL COURSE: Patient is a 49-year-old female who presented to the emergency room with redness and swelling affecting the first 3 toes on the right foot. Patient stated this been going on for 2 weeks. Over the last 2 days the redness has extended from her toes to her foot up to her lower leg. She also has an area of redness on the middle aspect of her right thigh. She reports that she may have bumped her toes but has diminished sensation in her feet so she wasn't exactly sure. She does have a few open wounds on her feet. 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 Patient is also concerned because she has not urinated in 48 hours despite taking Flomax. Patient has had a Bishop placed in t he past. In the emergency room labs showed the patient's creatinine to be elevated from baseline at 2.28. Patient was diagnosed with an acute kidney injury and cellulitis. Patient was started on doxycycline 100 mg by mouth for treatment of her cellulitis. On hospital day 2 patient receives her torsemide diuretic and had not been receiving fluid to her kidney function did worsen. Her torsemide was discontinued and patient started receiving normal saline at a rate of 85 mL per hour. On hospital course day 3, patient's kidney function continued to improve with the fluids however, patient still complained of being dehydrated with a chief complaint of a very dry mouth. Patient had began to make urine at this time. An MRI of her foot was ordered and showed questionable osteomyelitis however, this did not correlate with the clinical exam. The MRI was having questionable osteo-myelitis on her third toe of her right foot however, the wound on left foot was not very deep and does not appear clinically to have osteomyelitis. Podiatry was consulted and saw the patient and agreed with this assessment. Podiatry dress the wounds and cleared the patient for discharge home with continuation of by mouth doxycycline for treatment. On hospital day 4 patient's kidney functions continue to improve and since she was cleared from podiatry patient was deemed ready for discharge and was discharged home. DISCHARGE MEDICATIONS: Please see below. ALLERGIES: Please see below. PHYSICAL EXAMINATION ON DISCHARGE: Vitals: (see below) General: No acute distress, laying comfortably in bed. HEENT: Moist mucous membranes. Neck: No JVD or lymphadenopathy Cardiac: RRR, No murmurs Pulm: Clear to auscultation b/l. No wheezing, rhonchi Abd: NT/ND + BS Ext: Patient has a below the knee amputation on her left leg. Patient has an ulcer on the dorsal aspect of her second toe on her right foot. There is a small superficial wound on the dorsal aspect of her third toe on her right foot. The area of erythema on the right gomez has resolved. There is still a small area of erythema on the medial aspect of the right thigh but this is decreased from the lines that were drawn on 06/20/2019 when the patient was admitted. There is small area of tenderness over the medial aspect of the right thigh overlying the area of erythema. The nail bed of the first toe on the right foot also has a wound which shows healthy granulation tissue. LABORATORY DATA: Please see below. IMAGING: A chest x-ray performed on 06/20/2019 showed no acute cardiopulmonary disease. No significant change from prior exam. A x-ray of the patient's right foot performed on 06/20/2019 showed soft tissue swelling and possible skin ulceration. No definite radiographic evidence to suggest osteomyelitis. A MRI without contrast of the right foot performed on 06/21/2018 showed a somewhat limited exam due to patient motion and lack of IV contrast. Evaluation for osteomyelitis is limited however, there does appear to be marrow edema in the distal third phalanx. This is a nonspecific finding. Could be due to bone bruising but osteomyelitis cannot be excluded it must be correlated clinically. There is diffuse edema and likely cellulitis in the soft tissues without local evidence of focal fluid collection or abscess. Diffuse arthritic change of the intertarsal joints with mild scattered subchondral cystic change in marrow edema. There is chronic collapse and fracture of the navicular bone with dorsal displacement of fragments, the talar head above the cuneiform bones. 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 A renal ultrasound performed on 06/21/2019 showed question of minimal nonobstructing left renal calculus. It is an otherwise negative renal sonogram with no evidence of hydronephrosis. PROGNOSIS: Fair ACTIVITY: As tolerated. DIET: Consistent carbohydrate DISCHARGE PLAN/DISPOSITION: Discharge home DISCHARGE INSTRUCTIONS: 1. Follow-up with primary care provider in 3-7 days. 2. Hold torsemide and benazepril until you see your primary care provider. Call your primary care provider on Tuesday and let her know you were in the hospital for an acute kidney injury. A repeat BMP should be checked sometime in the next 1-2 weeks to monitor for continued resolution of acute kidney injury. Restart your medications based on the recommendations of your primary care provider. 3. Continue with doxycycline 100 mg by mouth twice a day for the next 7 days to complete a 10 day course. 4. Continue with wound care as instructed by Dr. Guerra of podiatry. 5. Call Dr. Guerra's office on Tuesday to make a follow-up appointment. 6. Return to the emergency department if symptoms worsen. DISCHARGE CONDITION: Stable. I saw and evaluated the patient. I agree with the findings and plan of care as documented in the documenters note. I spent 45 minutes coordinating this patient's discharge. Vital Signs/I&Os Vital Signs Date Time Temp Pulse Resp B/P (MAP) Pulse Ox O2 Delivery O2 Flow Rate FiO2 06/23/19 08:52 18 06/23/19 06:00 97.6 69 121/84 (96) 94 06/20/19 15:15 Room Air I&O- Last 24 Hours up to 6 AM 06/23/19 05:59 Intake Total 1415 ml Balance 1415 ml Laboratory Data Labs 24H Laboratory Tests 2 06/22/19 17:18: Bedside Glucose (Misc Panel) 186H 06/22/19 20:35: Bedside Glucose (Misc Panel) 212H 06/23/19 06:46: Estimated Mean Plasma Glucose 243H, Hemoglobin A1c 10.1 06/23/19 06:47: Nucleated Red Blood Cells % (auto) 0.0, Anion Gap 6L, Glomerular Filtration Rate 37.7L, Blood Urea Nitrogen 40H, Creatinine 1.55H, Sodium Level 140, Potassium Level 4.3, Chloride Level 109H, Carbon Dioxide Level 25, Calcium Level 8.9 CBC/BMP Laboratory Tests 06/23/19 06:47 Red Blood Count 3.37 L, Mean Corpuscular Volume 87.5, Mean Corpuscular Hemoglobin 30.3, Mean Corpuscular Hemoglobin Concent 34.6, Red Cell Distribution Width 13.6, Calcium Level 8.9 FSBS Laboratory Tests Test 06/22/19 17:18 06/22/19 20:35 Range/Units Bedside Glucose (Misc Panel) 186 212 70-105 MG/DL Microbiology Microbiology 06/20/19 Blood Culture - Preliminary, Resulted No Growth after 48 hours. All Specime... 06/20/19 Blood Culture - Preliminary, Resulted No Growth after 48 hours. All Specime... Discharge Medications Scheduled Amlodipine Besylate (Amlodipine Besylate) 10 Mg Tab, 10 MG PO QHS, (Reported) Apixaban (Eliquis) 5 Mg Tab, 5 MG PO BID, (Reported) Budesonide/Formoterol (Symbicort 80-4.5 Mcg Inhaler) 6.9 Gm Hfa.aer.ad, 2 PUFF INH BID, (Reported) Carvedilol (Carvedilol) 25 Mg Tab, 25 MG PO BID, (Reported) Cholecalciferol (Vitamin D3) (Vitamin D3) 50,000 Unit Capsule, 50,000 UNIT PO 1XWK, (Reported) TAKES ON TUESDAY Cyclobenzaprine HCl (Cyclobenzaprine HCl) 10 Mg Tab, 10 MG PO TID, (Reported) Cyclosporine (Restasis) 0.05 % Emu, 1 DROP OU BID, (Reported) USES PRN Dexlansoprazole (Dexilant) 60 Mg Cap, 60 MG PO QHS, (Reported) Doxycycline Monohydrate (Doxycycline) 100 Mg Capsule, 100 MG PO BID Duloxetine Hcl (Duloxetine HCl) 60 Mg Cap, 120 MG PO QHS, (Reported) Eszopiclone (Lunesta) 3 Mg Tablet, 3 MG PO QHS, (Reported) Exenatide Microspheres (Bydureon) 2 Mg Inj, 1 INJ SC 1XWK, (Reported) USES ON TUESDAYS Insulin Degludec (Tresiba Flextouch U-200) 200 Unit/Ml Inj, 160 UNIT SC BID, (Reported) Insulin Lispro (Humalog Kwikpen U-200) 200 Unit/Ml Inj, 1 UNITS SC TID, (Reported) sliding scale Lactobacillus Acidophilus (Probiotic) 1 Each Capsule, 1 CAP PO QHS, (Reported) Magnesium Chloride (Mag64) 64 Mg Tabcr, 64 MG PO QHS, (Reported) Montelukast Sodium (Montelukast Sodium) 10 Mg Tab, 10 MG PO QHS, (Reported) Nystatin (Nystatin Powder) 15 Gm Powder, 1 APLCT TOP BID, (Reported) apply to affected area(s) UNDER BREASTS Pregabalin (Lyrica) 300 Mg Cap, 300 MG PO BID, (Reported) Quetiapine Fumarate (Seroquel) 300 Mg Tab, 600 MG PO QHS, (Reported) Ranitidine HCl (Ranitidine HCl) 150 Mg Tab, 1 TAB PO QHS, (Reported) Ropinirole HCl (Ropinirole HCl) 2 Mg Tab, 2 MG PO BID, (Reported) TAKES AT 1800 AND 0000 Tamsulosin HCl (Flomax) 0.4 Mg Cap, 0.4 MG PO QHS, (Reported) [Collagen Support] , 1 TAB PO DAILY, (Reported) Scheduled PRN Albuterol Sulf (Albuterol Sulfate) 2.5 Mg/3 Ml Vial.neb, 1 INH INH Q4H PRN for wheezing, (Reported) Albuterol Sulfate (Proair Hfa) 8.5 Gm Hfa.aer.ad, 2 PUFF INH Q6H PRN for SHORTNESS OF BREATH, (Reported) Epinephrine (Epipen 2-Thomas) 0.3 Mg/0.3 Ml Inj, 0.3 MG SC PRN PRN for ALLERGIC REACTION, (Reported) Hydrocodone/Acetaminophen ([place] 10-325 Tablet) 1 Tab Tab, 1 TAB PO Q4H PRN for PAIN, (Reported) Allergies Coded Allergies: Latex, Natural Rubber (Verified Allergy, Severe, anaphylaxis, 05/23/19) Penicillins (Verified Allergy, Severe, anaphylaxis, CEPHALOSPORINS [place], 05/23/19) Sulfa (Sulfonamide Antibiotics) (Verified Allergy, Intermediate, hives, 05/23/19) clindamycin (Verified Allergy, Intermediate, Rash/mouth sores/BURNING OF SKIN, 05/23/19) fenofibrate (Verified Allergy, Mild, rash, 05/23/19) SURGICAL ANGIE (Verified Allergy, Unknown, 04/20/19) metformin (Verified Allergy, Unknown, rash, 04/20/19) pineapple (Verified Allergy, Unknown, swollen lips/mouth sores, 04/20/19) EUSEBIA VARGAS DO Jun 23, 2019 12:00 BELL ALEBRTO MD Jun 25, 2019 07:00
--- NOTE | 2019-06-23 15:31 | CR ---
DATE OF CONSULTATION: 06/23/2019 at 11:09 a.m. CHIEF COMPLAINT: A 49-year-old female seen for evaluation at bedside for an ulceration and injury to her third toe of the right foot. The patient states that she had swelling of her leg approximately two weeks ago. She states that her toenail on the big toe and sores on her toe occurred over the last week or so. She does not remember any direct trauma but states she may have bumped her foot. Since she has neuropathy, she would not have been aware of this injury. She is seen for today for evaluation. PAST MEDICAL HISTORY: 1. Insulin-dependent diabetes with retinopathy and neuropathy. 2. Lumbar spondylosis/chronic back pain. 3. Dyslipidemia. 4. Iron deficiency anemia. 5. Restless leg syndrome. 6. Deep vein thrombosis with factor V Leiden deficiency. 7. Hepatic stenosis. 8. Hypogammaglobulinemia. 9. Chronic hypertension. 10. Chronic asthma. 11. Sleep apnea. 12. Gastroesophageal reflux disease (GERD). 13. Anxiety disorder/bipolar. 14. Temporal lobe seizure. 15. Temporomandibular joint dysfunction bilaterally. 16. History of Clostridium difficile. 17. Chronic constipation. PAST SURGICAL HISTORY: 1. Hysterectomy. 2. Below-knee amputation on the left side. 3. Bilateral carpal tunnel surgery. 4. Appendectomy. 5. Cervical discectomy with fusion C5-6. 6. Cholecystectomy. PHYSICAL EXAMINATION: The patient is alert and well-oriented times three. Evaluation of the patient's foot reveals her missing the nail plate on the right hallux with good granulation tissue noted. There is a small ulceration over the second toe at the proximal interphalangeal joint. This extends down to the fat. The tensor tendon is not visible. This ulcer measures 0.6 cm x 0.4 cm x 0.1 cm in depth with good granulation tissue. No surrounding erythema. No discharge or signs of infection. There is a small ulceration on the distal aspect of the hallux, quite superficial measuring 0.1 mm x 0.2 mm x 0.1 mm. There no discharge. Good granulation tissue. No fluctuance. No tenderness with compression of the digit. There are no other wounds on her foot. X-rays were reviewed revealing she is status post a fifth ray amputation on the right side. MRI was reviewed revealing some questionable signal change on the distal phalanx of the third toe of the right foot. However, there are no other signs of osteomyelitis. This most likely represents a bone contusion in that area since there is no clinical evidence of osteomyelitis. LABORATORY STUDIES: Reviewed and reveal today a white count of 4.5, ESR on 06/20/2019 was 74. C-reactive protein on 06/20/2019 was 2.39. ASSESSMENT: Ulceration of the second toe, right foot, stage III without infection. Ulceration of the distal aspect of the third toe, right foot without infection. The patient is status post traumatic nail avulsion on her left hallux with no signs of infection. PLAN: We discussed with the patient she is the high risk for ulceration/infection and limb loss. She was advised that when she has a wound to seek prompt medical attention. She was also advised to keep her foot bandaged when she has a wound to decrease the possibility of wound infection. I would recommend that the patient use either gentamicin cream or neosporin and apply this to the wound twice a day. The patient has not been seen in my office for many months. We discussed with the patient that since she frequently loses her toenails most likely due to trauma from either her shoe or bedding that she gets her nails trimmed every 10 weeks. We also discussed with the patient that if she has any wounds to seek immediate medical attention. Her questions were answered. Thank you for this consultation.
== END 2019-06-23 13:20 | disposition home or self-care (01) | DRG 603 ==
LOC: M ED 15:14 → M ED INP 15:15 → M MS5PR 23:30 → OBSVTOIN 06-22 13:42
PROVIDERS: ADMIT Internal Medicine; ATTEND Internal Medicine
DX: L03.031 Cellulitis of right toe (principal); L03.115 Cellulitis of right lower limb; D68.2 Hereditary deficiency of other clotting factors; D80.1 Nonfamilial hypogammaglobulinemia; N17.9 Acute kidney failure, unspecified; L97.518 Non-pressure chronic ulcer of other part of right foot with other specified severity; E11.40 Type 2 diabetes mellitus with diabetic neuropathy, unspecified; E11.319 Type 2 diabetes mellitus with unspecified diabetic retinopathy without macular edema; M43.06 Spondylolysis, lumbar region; M79.7 Fibromyalgia; E78.5 Hyperlipidemia, unspecified; D50.9 Iron deficiency anemia, unspecified; G25.81 Restless legs syndrome; K76.0 Fatty (change of) liver, not elsewhere classified; I10 Essential (primary) hypertension; J45.909 Unspecified asthma, uncomplicated; G47.30 Sleep apnea, unspecified; K21.9 Gastro-esophageal reflux disease without esophagitis; F40.00 Agoraphobia, unspecified; F31.9 Bipolar disorder, unspecified; F42.9 Obsessive-compulsive disorder, unspecified; E66.01 Morbid (severe) obesity due to excess calories; N18.9 Chronic kidney disease, unspecified; E11.22 Type 2 diabetes mellitus with diabetic chronic kidney disease; L40.9 Psoriasis, unspecified; K59.09 Other constipation; E11.621 Type 2 diabetes mellitus with foot ulcer; Z90.710 Acquired absence of both cervix and uterus; Z89.421 Acquired absence of other right toe(s); Z98.1 Arthrodesis status; Z79.4 Long term (current) use of insulin; Z90.49 Acquired absence of other specified parts of digestive tract; Z89.512 Acquired absence of left leg below knee; Z79.01 Long term (current) use of anticoagulants; Z79.899 Other long term (current) drug therapy; Z88.0 Allergy status to penicillin; Z88.2 Allergy status to sulfonamides; Z88.1 Allergy status to other antibiotic agents; Z88.8 Allergy status to other drugs, medicaments and biological substances; Z86.718 Personal history of other venous thrombosis and embolism; Z91.018 Allergy to other foods; Z91.048 Other nonmedicinal substance allergy status; Z68.37 Body mass index [BMI] 37.0-37.9, adult

== ENCOUNTER → 2019-06-27 | Outpatient (REF) | payer OTHER ==
[~2019-06-27] MED LIST changes: +DOXY-350 PO; +PROAAER10 INH
[2019-06-27 13:05] LABS: BASO % 0.4 % (0.0-1.0); EOS # 0.2 10^3/uL (0.0-0.5); EOS % 1.8 % (0.0-3.0); HEMATOCRIT 32.3 % (36.0-47.0); HEMOGLOBIN 11.3 g/dl (12.0-15.5); LYMPH # 2.2 10^3/uL (1.5-5.0); LYMPH % 20.1 % (24.0-44.0); MEAN CORPUSCULAR HEMOGLOBIN 29.9 pg (27.0-33.0); MEAN CORPUSCULAR VOLUME 85.4 fl (80.0-96.0); MONO # 0.7 10^3/uL (0.0-0.8); MONO % 6.2 % (0.0-5.0); NEUTROPHILS # 7.6 10^3/uL (1.5-8.5); NEUTROPHILS % 69.6 % (36.0-66.0); PLATELET COUNT, AUTOMATED 246 10^3/uL (150-450); RED BLOOD COUNT 3.78 10^6/uL (4.00-5.40); WHITE BLOOD COUNT 10.9 10^3/uL (4.0-10.0)
[2019-06-27 13:08] LABS: C REACTIVE PROTEIN QUANTITATIV 1.31 MG/DL (0.00-0.30); CALCIUM LEVEL 8.6 MG/DL (8.5-10.1); CREATININE FOR GFR 1.71 MG/DL (0.55-1.30); GLOMERULAR FILTRATION RATE 33.6 (>51); POTASSIUM SERUM 3.5 MEQ/L (3.5-5.1)
[2019-06-27 13:37] LABS: ERYTHROCYTE SEDIMENTATION RATE 77 mm/hr (0-30)
[2019-06-27 13:58] LABS: CREATININE, URINE 85.4 MG/DL; MAU/CREAT RATIO 3056.2 MCG/MG (0.0-30.0)
[2019-06-27 14:01] LABS: HEMOGLOBIN A1c 9.9 %
== END ==
LOC: M SFHCPLAZ 10:58
PROVIDERS: ATTEND Family Medicine
DX: L03.115 Cellulitis of right lower limb (principal); E11.59 Type 2 diabetes mellitus with other circulatory complications; N17.9 Acute kidney failure, unspecified

== ENCOUNTER → 2019-07-02 | Outpatient (REF) | payer OTHER ==
[~2019-07-02] MED LIST changes: +BENA40TA5 PO; -BENA40TA7 PO; -LAMO100T PO; +LAMO100T3 PO; -LAMO200T2 PO; +LAMO200T3 PO; -MAGN400T PO; +MAGN400T3 PO; -MECL-68 PO; +MECL1TAB31 PO; +METH1CAP3 PO; -OMEP40CA2 PO; +OMEP40CA97 PO; -TRAZ-163 PO; +TRAZ-257 PO; -VALA1TAB2 PO; +VALA1TAB64 PO
[2019-07-02 12:42] LABS: HEMATOCRIT 32.3 % (36.0-47.0); HEMOGLOBIN 11.1 g/dl (12.0-15.5); MEAN CORPUSCULAR HEMOGLOBIN 29.4 pg (27.0-33.0); MEAN CORPUSCULAR HGB CONC 34.4 g/dl (32.0-36.5); MEAN CORPUSCULAR VOLUME 85.4 fl (80.0-96.0); PLATELET COUNT, AUTOMATED 229 10^3/uL (150-450); RED BLOOD COUNT 3.78 10^6/uL (4.00-5.40); WHITE BLOOD COUNT 7.9 10^3/uL (4.0-10.0)
[2019-07-02 13:27] LABS: ERYTHROCYTE SEDIMENTATION RATE 69 mm/hr (0-30)
== END ==
LOC: M SFHCPLAZ 09:36
PROVIDERS: ATTEND Internal Medicine Infectious Disease
DX: L97.519 Non-pressure chronic ulcer of other part of right foot with unspecified severity (principal)

== ENCOUNTER → 2019-07-06 | Outpatient (CLI) | payer OTHER ==
--- NOTE | 2019-07-23 00:21 | ECWPNPC ---
PATIENT NAME: JOSS FORD : 1970 GENDER: FEMALE VISIT DATE: 07/06/2019 DISCHARGE DATE: 07/06/19 1540 VISIT LOCKED DATE TIME: PHYSICIAN: RONNIE SIMMONS MD RESOURCE: RONNIE SIMMONS MD REASON FOR APPOINTMENT 1. SCAR NEUROMA/STUMP PAIN HISTORY OF PRESENT ILLNESS PAIN SCREENING: PATIENT HAS A COMPLAINT OF ACUTE OR CHRONIC PAIN :YES 49 YEAR OLD FEMALE PATIENT WITH A HISTORY OF CHRONIC LOW BACK AND LEG PAIN. THE PATIENT DESCRIBES THE PAIN SHARP, STABBING, DAILY, AND CONTINUOUS WITH A PAIN SCORE OF 7-10/10 DEPENDING ON PHYSICAL ACTIVITY. THE PATIENT STATES HER PAIN BEGINS IN HER LOW BACK AND RADIATES DOWN BOTH LEGS, WITH PHANTOM PAIN IN THE LEFT LEG. THE PATIENT SAYS HER LEFT LEG WAS AMPUTATED AROUND 2 YEARS AGO DUE TO PERIPHERAL DIABETES. THE PATIENT SAYS SHE IS CURRENTLY USING ELIQUIS DUE TO HISTORY OF DEVELOPING MULTIPLE BLOOD CLOTS. PATIENT DENIES UNEXPLAINABLE WEIGHT LOSS, FEVER, CHILLS, NEW CHANGES ON HER URINARY OR BOWEL CONTROL. FALL RISK SCREENING: SCREENING :NO FALLS REPORTED IN THE LAST YEAR CURRENT MEDICATIONS TAKING WHEELCHAIR - MISCELLANEOUS DIRECTED DX Z89.51, M54.41 TAKING MISC. DEVICES - MISCELLANEOUS DIRECTED REPAIR AND REPLACE PROSTHETIC AND LINERS NEEDED; DX Z89.51 TAKING MAY USE - - WHEEL CHAIR DX CODE Z89.512 _ TAKING ALBUTEROL SULFATE (2.5 MG/3ML) 0.083% NEBULIZATION SOLUTION 3 ML NEEDED INHALATION EVERY 4 HRS FOR WHEEZING TAKING CHOLECALCIFEROL 5000 UNIT CAPSULE 1 CAPSULE BY MOUTH ONCE WEEKLY TAKING COLLAGEN ULTRA - CAPSULE 1 CAP ORALLY DAILY TAKING CYCLOBENZAPRINE HCL 10 MG TABLET 1 TAB ORALLY THREE TIMES A DAY TAKING LACTOBACILLUS - CAPSULE 1 CAP ORALLY DAILY TAKING MAGNESIUM CHLORIDE 64 MG TABLET DELAYED RELEASE 1 TABLET ORALLY DAILY TAKING EPIPEN 0.3 MG/0.3ML DEVICE 1 INJECTION INJECTION NEEDED FOR ALLERGIC REACTION, NOTES: MISSY TAKING SINGULAIR 10 MG TABLET 1 TABLET ORALLY ONCE A DAY, NOTES: DR MACIEL TAKING NYSTATIN POWDER [id number] UNIT POWDER POWDER EXTERNALLY TO BILATERAL BERAST AND ABD PANNUS DAILY NEEDED DAILY TAKING RESTASIS 0.05 % EMULSION 1 DROP INTO AFFECTED EYE OPHTHALMIC TWICE A DAY TAKING ZANTAC 150 MG TABLET 1 TABLET AT BEDTIME ORALLY ONCE A DAY TAKING DEXILANT 60 MG CAPSULE DELAYED RELEASE 1 CAPSULE ORALLY ONCE A DAY, NOTES: DOSE CHANGE WAS 30MG TAKING TAMSULOSIN HCL 0.4 MG CAPSULE EXTENDED RELEASE ORALLY TAKING ELIQUIS 5 MG TABLET 1 TABLET ORALLY BID TAKING ROPINIROLE HCL 2 MG TABLET 1 TABLET AT 8 PM AND AT MIDNIGHT ORALLY BID TAKING CYMBALTA 60 MG CAPSULE DELAYED RELEASE PARTICLES 2 CAPSULES ORALLY DAILY, NOTES: CHANGE FROM 60MG BID TAKING LYRICA 300 MG CAPSULE 1 CAPSULE ORALLY TWICE A DAY (PAIN CLINIC), NOTES: DR WALL TAKING HYDROCODONE-ACETAMINOPHEN 10-325 MG TABLET 1 TABLET NEEDED ORALLY EVERY 4 HRS TAKING LUNESTA 3 MG TABLET 1 TABLET IMMEDIATELY BEFORE BEDTIME ORALLY ONCE A DAY TAKING REFRESH 1 % SOLUTION 1 DROP INTO AFFECTED EYE NEEDED OPHTHALMIC FOUR TIMES DAILY, NOTES: DR QUIJANO TAKING VALACYCLOVIR HCL 1 GM TABLET 1 TABLET ORALLY EVERY 24 HRS TAKING ROSUVASTATIN CALCIUM 10 MG TABLET 1 TABLET ORALLY ONCE A DAY TAKING BETAMETHASONE VALERATE 0.1 % CREAM 1 APPLICATION TO AFFECTED AREA EXTERNALLY ONCE A DAY TAKING CETIRIZINE HCL 10 MG TABLET 1 TABLET ORALLY ONCE A DAY, NOTES: DR MACIEL:[facility] TAKING XOPENEX 1.25 MG/3ML NEBULIZATION SOLUTION 3 ML INHALATION EVERY 6 HOURS NEEDED TAKING SYMBICORT 80-4.5 MCG/ACT AEROSOL 2 PUFFS INHALATION TWICE A DAY TAKING PROAIR HFA 108 (90 BASE) MCG/ACT AEROSOL SOLUTION 2 PUFFS NEEDED INHALATION EVERY 6 HRS TAKING BD PEN MINI - MISCELLANEOUS DIRECTED E11.9 QID TAKING SEROQUEL 300 MG TABLET 2 TABLET ORALLY BEFORE BEDTIME TAKING BYDUREON 2 MG PEN-INJECTOR 1 INJECTION SUBCUTANEOUS WEEKLY TAKING PIOGLITAZONE HCL 30 MG TABLET 1 TABLET ORALLY ONCE A DAY TAKING HUMULIN R U-500 KWIKPEN 500 UNIT/ML SOLUTION PEN-INJECTOR DIRECTED SUBCUTANEOUS 150 UNITS TWICE DAILY AT BREAKFAST AND DINNER TAKING AMLODIPINE BESYLATE 10 MG TABLET 1 TABLET ORALLY ONCE A DAY TAKING CARVEDILOL 25 MG TABLET 1 TAB ORALLY BID TAKING BENAZEPRIL HCL 40 MG TABLET TAKE ONE TABLET BY MOUTH EVERY DAY TAKING PROBIOTIC - TABLET DELAYED RELEASE ORALLY TAKING ZOFRAN 8 MG TABLET 1 TAB(S) ORALLY DAILY PRN NAUSEA NOT-TAKING LINEZOLID 600 MG TABLET 1 TABLET ORALLY EVERY 12 HRS NOT-TAKING SERTRALINE HCL 100 MG TABLET 2 TABLETS ORALLY ONCE A DAY NOT-TAKING TORSEMIDE 20 MG TABLET 1 TAB ORALLY ONCE A DAY MEDICATION LIST REVIEWED AND RECONCILED WITH THE PATIENT PAST MEDICAL HISTORY CHARCOT 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 NOW S/P AMPUTATION OF LEFT FOOT BILATERAL DIABETIC FOOT ULCERS LUMBAR SPONDYLOSIS, CENTRAL CANAL STENOSIS AT L2-5 SECONDARY TO DISC BULGE LIGAMENTOUS AND FACET HYPERTROPHY LUMBAR FACET ARTHROPATHY, DISC BULGING AT L5-S1 CHRONIC LOW BACK PAIN - FOLLOWED BY PAIN CLINIC DIABETES MELLITUS DX 26 YO, FOLLOWED BY [facility] + FOR RHEUMATOID FACTOR 04/27/12 HEPATOSTEATOSIS US 05/2013 HYPOGAMMAGOBULINEMIA HYPERTENSION ASTHMA BIPOLAR, OCD, AGORAPHOBIC ANXIETY FIBROMYALGIA SPINA BIFIDA OCCULTA B/L TMJ DYSFUNCTION PSORIASIS BULGING DISC THORACIC - LUMBAR ABDOMINAL ADHESIONS TEMPORAL LOBE SEIZURES GERD, HIATAL HERNIA - DR. TAVERAS BRAIN MRI 2013 NL HERPES SIMPLEX II VIA PCR ON LESIONS ON BACK FATTY LIVER + FVL ON CHRONIC VKA GOAL INR2-3 TYPE 2 DIABETES MELLITUS WITH OTHER CIRCULATORY COMPLICATIONS - NEFTALY DIABETIC GASTROPARESIS - DR. TAVERAS HO RECTO-SIGMOID ISCHEMIC COLITIS 03/2018 CONFIRMED BY SIGMOID C BX-NITIN, MSESNTERIC ARTERIOGRAM S INTERVENTION URINARY RETENTION - [facility] UROLOGY MCCOLLUM'S PALSY - NEURO CKD2, PROTEINURIA - NEPHRO ALLERGIES LATEX (FOR ALLERGY USE ONLY): ANAPHYLAXIS - ALLERGY PENICILLIN (FOR ALLERGIES USE ONLY): ANAPHYLAXIS - ALLERGY SULFA (FOR ALLERGY USE ONLY): HIVES - ALLERGY TRICOR: HIVES - ALLERGY GLUCOPHAGE: HIVES - ALLERGY LIPITOR: HIVES - ALLERGY ZOCOR: HIVES - ALLERGY FRESH PINEAPPLE : SWOLLEN LIPS/ SORES IN MOUTH - ALLERGY KEFLEX: HIVES - ALLERGY SURGICAL HISTORY GALLBLADDER 1996 CERVICAL DISCECTOMY C5-6 FUSION 1994 HYSTERECTOMY 2000 LUMPECTOMY RIGHT BREAST 2004 SKIN LESION REMOVED 2004 MULTIPLE DIAGNOSTIC LAPAROSCOPIES VENOUS PORTACATH LEFT CHEST X2 PICC LINE LEFT & RIGHT UPPER ARM X3 APPENDECTOMY 2009 EXCISED ABCESSED WOUNDS X3 DUE TO INFECTION. ULNAR RELEASE RIGHT ARM/HAND CHANI CATH X2 STOOL TRANSPLANT PORT PLACED 12/23/2016 ULNAR RELEASE AND CARPAL TUNNEL RELEASE RIGHT ARM WITH REVISION: DR. RECINOS LEFT CHARCOT FOOT DEBRIDEMENT: DR. LILLY 02/2017 LEFT BKA FOR CHRONIC WOUND/OSTEOMYELITIS 05/2017 EGD- GASTRIC POLYP RESECTED; DR. TAVERAS 06/2018 COLONOSCOPY - SIGMOID ULCER; DR. TAVERAS 06/2018 EGD - NORMAL; DR. TAVERAS 10/2018 FAMILY HISTORY FATHER: 82 YRS, HEART ISSUES, PACEMAKER, PROSTATE CANCER MOTHER: 80 YRS, OSTEOPOROSIS, HTN, STROKE 2X SIBLINGS: ALIVE 49,48 YRS, DIABETES 2 BROTHER(S) , 5 SISTER(S) . BROTHER WITH TYPE I DIABETESSISTER WITH HYPERTENSIO. SOCIAL HISTORY GENERAL: TOBACCO USE ARE YOU A:CURRENT SMOKER ARE YOU INTERESTED IN QUITTING?THINKING ABOUT QUITTING COUNSELED THE PATIENT ON SMOKING CESSATION, EDUCATION [id number]/04/2019 HOW MANY CIGARETTES A DAY DO YOU SMOKE?6-10 HOW SOON AFTER YOU WAKE UP DO YOU SMOKE YOUR FIRST CIGARETTE?AFTER 60 MIN HOW OFTEN DO YOU SMOKE CIGARETTES?EVERY DAY PATIENT COUNSELED ON THE DANGERS OF TOBACCO USE AND URGED TO QUIT:06/20/2019 ADDITIONAL FINDINGS: TOBACCO USERMODERATE CIGARETTE SMOKER (10-19 CIGS/DAY) SMOKING CESSATION INFORMATION GIVEN06/20/2019 HIV / HEP-C SCREENING HIV TEST OFFERED TO PATIENT:NO HEP-C TEST OFFERED TO PATIENT:NO OTHERS AT HOME: SPOUSE. HOUSING: OWNS HOME. 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 DIET: CARBOHYDRATE CONTROLLED. LANGUAGE LANGUAGES SPOKEN:ARABIC DOMESTIC VIOLENCE DO YOU FEEL SAFE IN YOUR ENVIRONMENT?YES BMI CARE GOAL FOLLOW-UP ABOVE NORMAL BMI FOLLOW-UPLIFESTYLE EDUCATION REGARDING DIET RECREATIONAL DRUG USE DENIES. EXERCISE: NO REGULAR EXERCISE. LEARNING BARRIERS / SPECIAL NEEDS CHANGE FROM LAST VISIT?NO BARRIERS TO LEARNING?NO HEARING IMPAIRED?NO VISION IMPAIRED?YES COGNITIVELY IMPAIRED?NO :CORRECTIVE LENSES READINESS TO LEARN?YES LEARNING PREFERENCES?NO LEARNING CAPABILITIES PRESENT?YES EMOTIONAL BARRIERS?NO SPECIAL DEVICES?YES :CANE, WALKER, WHEELCHAIR LEFT LEG PROSTHETIC RADIOLOGY TRANSCRIPTIONIST NEEDED?NO PAIN CLINIC PFS, CLERGY, PUBLIC HEALTH REFERRALS HAS THE PATIENT BEEN EDUCATED REGARDING HIS/HER PLAN OF CARE?YES HAS THE PATIENT BEEN EDUCATED REGARDING PAIN, THE RISK FOR PAIN, THE IMPORTANCE OF EFFECTIVE PAIN MANAGEMENT, AND THE PAIN ASSESSMENT PROCESS?YES LATEX QUESTIONNAIRE LATEX ALLERGY : HAVE YOU EVER DEVELOPED ANY TYPE OF REACTION AFTER HANDLING LATEX PRODUCTS SUCH RUBBER GLOVES, CONDOMS, DIAPHRAGMS, BALLOONS, SOCKS, OR UNDERWEAR?YES LATEX ALLERGY : HAVE YOU EVER DEVELOPED ANY TYPE OF REACTION DURING OR AFTER DENTAL APPOINTMENT, VAGINAL/RECTAL EXAMINATION, SURGICAL PROCEDURE, OR ANY OTHER EXPOSURE?YES - PLEASE INDICATE :RUBBER GLOVES, CONDOMS, BALLOONS - PLEASE INDICATE :VAGINAL EXAM, RECTAL EXAM DATE ASKED : 02/05/2019 LATEX RISK : HAVE YOU EVER HAD ANY DIFFICULTY BREATHING OR HIVES AFTER EATING OR HANDLING ANY FRUITS, OR VEGETABLES; SUCH KIWI, BANANAS, STONE FRUITS, OR CHESTNUTSNO LATEX RISK : DO YOU HAVE A PREVIOUS PERSONAL HISTORY OF MORE THAN NINE SURGERIES, SPINA BIFIDA, OR REPEATED CATHERIZATIONS? YES - PLEASE INDICATE : > 9 SURGERIES LATEX RISK : ARE YOU FREQUENTLY EXPOSED TO LATEX PRODUCTS IN YOUR OCCUPATION?NO CAFFEINE CAFFEINE USE?NO ADVANCE DIRECTIVE ADVANCE DIRECTIVE DISCUSSED WITH PATIENT:YES PT HAS HEALTH CARE PROXY, JAYASHREE FORD [phone] PENTECOSTAL [id number] NONE MARITAL STATUS: . ALCOHOL SCREENING POINTS: 0, INTERPRETATION: NEGATIVE. 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 SEXUAL HX HAD SEX IN THE LAST 12 MONTHS (VAGINAL, ORAL, OR ANAL)?YES WITHMEN ONLY PREVENTION STRATEGIES DISCUSSED:CONDOMS USE PROTECTION?NO HAVE YOU EVER HAD AN STD?NO HOSPITALIZATION/MAJOR DIAGNOSTIC PROCEDURE SEPSIS, L FOOT ULCER, SUSPECTED COLITIS 08/23/2014 DVT RLL 09/06/2014 SEPTIC SHOCK SECONDARY TO MULTIPLE SKIN ULCERS 10/22/2014 LOW BLOOD SUGERS AND INFECTIONS 11/11/2014 RLL CELLULITUS AND OSTEOMYELITIS 01/06/2015 HYPOTENSION, SYNCOPE 02/21/2015 DIABETIC FOOT ULCER OSTEO 04/30/15 STAPH HOMINIS LINE SEPSIS MSSA CHRONIC OSTEOMELYTIS FOOT 05/15/15 WOUND INFECTION 06/2015 SEPSIS 06/2015 SEPSIS 07/2015 ADMITTED FOR PORT INFECTION 11/2015 C-DIFF 12/2015 LEFT FOOT R/O OSTEOMYELITIS. 05/27/2016 HYPERGLYCEMIA IN AN UNCONTROLLED TYPE I DIABETIC, R SIDED FLANK PAIN, CKD, HYPONATREMIA SECONDARY TO HYPERGLYCEMIA, ANXIETY, DEPRESSION, HYPERTENSION, ASTHMA, HX OF DVT, UTI 08/30-09/03/2016 CELLULITIS LEFT FOOT 01/13/17-01/19/17 CELLULITIS OF THE RIGHT LOWER FOOT, MILD ACUTE RENAL FAILURE 04/12/17-04/14/17 KIDNEY INJURY 10/05 HYPERGYYCEMIA, HYOERTENSION, HYPERKALEMIA, ACUTE KIDNEY INJURY 10/25/2017 DEHYDRATION AND ALTERED MENTAL STATUS 02/14/2018 ACUTE SIGMO-RECTAL ISCHEMIC COLITIS C SEVERE SEPSIS/MELODY I/TME/BLOODY STOOLS/ELEVATED BHG BUT PH 7.6 (WBC ON ADMISSION 17K, PEAK CR 1.7), CONFIRMED BY SIGMOID C BX-REINDL, -BCX X 2, -GI PANEL -UCX, MESENTERIC ARTERIOGRAM DONE BY SRAVAN ALEJO//CT HE 03/20- LETICIA LOCKETT 10/08/2018 3 DAYS RENAL FAILURE 05/22/2019 RIGHT FOOT CELLULITIS 06/2019 REVIEW OF SYSTEMS REVIEWED BY: PROVIDER: RONNIE SIMMONS MD . CONSTITUTIONAL: ANY CHANGE IN YOUR MEDICAL CONDITION? YES HOSPITALIZED FOR RENAL FAILURE/ CELLULITIS A COUPLE OF WEEKS AGO X 3 DAYS., RESOLVED. . CHILLS NO . FEVER NO . INFECTION: DO YOU HAVE NEW INFECTIONS? YES CELLULITIS IN RIGHT LEG, HOSPITALIZED FOR 3 DAYS FOR IV ANTIBIOTICS . DO YOU HAVE HISTORY OF MRSA? NO . MUSCULOSKELETAL: ANY NEW PATTERNS OF PAIN OR NUMBNESS? YES PT REPORTS PAIN IN LOW BACK RADIATING DOWN RIGHT LEG AND PHANTOM PAIN DOWN LEFT LEG. . SYTEMIC LUPUS NO . GASTROENTEROLOGY: ANY NEW CHANGE IN BOWEL CONTROL? NO . BARRETTS ESOPHAGUS NO . CIRRHOSIS NO . HEPATITIS NO . LIVER FAILURE NO . ACID REFLUX YES . UNEXPLAINED WEIGHT LOSS NO . GENITOURINARY: ANY NEW CHANGE IN BLADDER CONTROL? NO . IS THERE A CHANCE YOU COULD BE ? NO . HEMATOLOGY/LYMPH: DO YOU TAKE ANY BLOOD THINNERS? (FOR EXAMPLE- COUMADIN, PLAVIX, AGGRENOX, PLATEL, PRADAXA, OR XARELTO) YES . WHEN WAS YOUR LAST DOSE? DATE: TIME: . LOW PLATELET COUNT NO . SICKLE CELL DISEASE NO . VON WILLIEBRANDS NO . FACTOR V LEIDEN YES ON ELIQUIS . THALLASEMIA NO . ANEMIA NO . EASY BRUISING NO . NEUROLOGY: HAVE YOU FALLEN IN THE PAST 12 MONTHS? YES PT REPORTS HER PROSTHETIC SOMETIMES GETS CAUGHT ON THINGS AND CAUSES HER TO FALL. . ANY NEW EXTREMITY NUMBNESS OR WEAKNESS? NO . HEAD INJURY NO . DEMENTIA NO . CEREBRAL PALSY NO . MULTIPLE SCLEROSIS NO . DIZZINESS NO . HEADACHE SEES NEUROLOGISTS FOR HEADACHES . STROKES NO . VERTIGO NO . CARDIOLOGY: DO YOU HAVE A PACEMAKER OR DEFIBRILLATOR? NO . ANGINA NO . HEART ATTACK NO . HEART SURGERY NO . CONGESTIVE HEART FAILURE/FLUID OVERLOAD NO . CHEST PAIN NO . HIGH BLOOD PRESSURE ON MEDICATION(S) . IRREGULAR HEART BEAT NO . RESPIRATORY: HAVE YOU BEEN SICK IN THE PAST WEEK? YES . FEVER NO . FLU LIKE SYMPTOMS? NO . CPAP NO . BYPAP NO . ASTHMA YES . EMPHYSEMA NO . CHRONIC LUNG DISEASES YES . SHORTNESS OF BREATH ON EXERTION NO . COUGH NO . SNORING YES . INTEGUMENTARY: DO YOU HAVE ANY RASHES OR OPEN SORES? YES PT REPORTS ECZEMA, ALSO HAS DIABETIC FOOT SORES ON TOES OF RIGHT FOOT. . ALLERGIC/IMMUNO: ARE YOU ALLERGIC TO IV DYE? NO . ANY NEW ALLERGIES? NO . PSYCHIATRIC: DO YOU HAVE THOUGHTS OF HURTING YOURSELF OR SOMEONE ELSE? NO . ARE YOU ABUSED, NEGLECTED, OR IN AN UNSAFE ENVIRONMENT? NO . ENDOCRINOLOGY: ARE YOU DIABETIC? YES . THYROID DISORDER NO . OTHER: DO YOU NEED ANY PRESCRIPTIONS? NO . IF YES, PLEASE LIST: ____ . ANY NEW PROBLEMS WITH YOUR MEDICATIONS? NO . WHEN DID YOU LAST EAT? ____ . WHEN DID YOU LAST DRINK? ____ . WHAT DID YOU LAST DRINK? ____ . NAME OF PERSON DRIVING YOU HOME? ____ . DO YOU HAVE ANY OTHER QUESTIONS OR CONCERNS YES PT WOULD LIKE TO DISCUSS NERVE BLOCKS/INJECTIONS . VITAL SIGNS WT 261 LBS, HT 70 IN, BMI 37.45 INDEX, BP 111/58 MM HG, HR 111 /MIN, RR 18 /MIN, TEMP 96.2 F, OXYGEN SAT % 99%, SAFE IN ENV? (Y/N) YES, NA INITIALS AW 1343, REVIEWED BY: CAMPBELL. EXAMINATION GENERAL EXAMINATION: PATIENT IS ALERT O X 3 AND COOPERATIVE. LUNGS CLEAR, TO AUSCULTATION. HEART: NO MURMURS OR GALLOPS; FACIAL CRANIAL NERVES ARE GROSSLY NORMAL. GOOD SYMMETRY OF FACIAL MUSCLE MOVEMENT. NORMAL VISUAL HUGO. PATIENT IS IN A WHEELCHAIR. ANTALGIC WALK DUE TO LEFT LEG PROSTHESIS. STRAIGHT LEG RAISE OF THE LEFT LEG IS POSITIVE AT 30 DEGREES FOR RADICULOPATHY. MRI OF THE LUMBAR SPINE DONE ON 02/20/2019 SHOWS BULGING DISC AT MULTIPLE LEVELS INCLUDING L5-S1 AND SPINAL STENOSIS AT L3-L4. ASSESSMENTS INTERVERTEBRAL DISC DISORDERS WITH RADICULOPATHY, LUMBAR REGION - M51.16 (PRIMARY) PHANTOM PAIN AFTER AMPUTATION OF LOWER EXTREMITY - G54.6 TREATMENT INTERVERTEBRAL DISC DISORDERS WITH RADICULOPATHY, LUMBAR REGION CLINICAL NOTES: WE DISCUSSED SEVERAL ISSUES WITH MS. FORD'S PAIN MANAGEMENT CASE. DUE TO TH LUMBAR RADICULOPATHY, I WOULD LIKE TO MOVE FORWARD WITH A LUMBAR EPIDURAL STEROID INJECTION BUT ONLY AFTER STOPPING ELOQUIS. THE PATIENT WOULD LIKE TO MOVE FORWARD WITH IV SEDATION DUE TO DISCOMFORT, PAIN, AND ANXIETY ASSOCIATED WITH THE PROCEDURE. WE DISCUSSED THE BENEFITS, RISKS, AND ALTERNATIVES OF THE INJECTION AND THE PATIENT WOULD LIKE TO PROCEED. I WILL REQUEST CLEARANCE FROM THE PATIENT'S PRIMARY FOR HER TO STOP ELIQUIS BEFORE THE PROCEDURE. THE PATIENT WILL FOLLOW UP IN SEVERAL WEEKS AFTER THE INJECTION. INSTRUCTIONS WERE GIVEN, QUESTIONS WERE ANSWERED, PATIENT REPORTS UNDERSTANDING AND AGREES WITH THE PLAN. I, KIRSTEN JO, DOCUMENTED THE ABOVE INFORMATION ACTING A SCRIBE FOR DR. SIMMONS. I HAVE REVIEWED THE ABOVE DOCUMENT, WRITTEN BY KIRSTEN SCRUGGSIBSilvina AND I VERIFY THAT IT IS ACCURATE. DEAR NOHEMY DELA CRUZ DO, PHD: THANK YOU FOR YOUR KIND REFERRAL OF JOSS FORD. IF YOU WANT TO DISCUSS HER CASE WITH ME PLEASE CALL ME AT THE PAIN CENTER AT [phone]. SINCERELY, RONNIE SIMMONS MD PAIN MEDICINE . PROCEDURE CODES FA211 ESTABILISHED PATIENT [facility] FACILITY CHARGE [id number] CURRENT MEDS W/DOSAGES DOCUMENTED G8730 PAIN ASSESS POS TOOL F/U PLAN DOC DISPOSITION & COMMUNICATION FOLLOW UP 3 WEEKS (REASON: LESI) ELECTRONICALLY SIGNED BY RONNIE SIMMONS MD, MD ON 07/22/2019 AT 04:50 PM EDT DISCLAIMER : THIS IS A VISIT SUMMARY EXTRACTED FROM THE [employer] CHART. IT IS NOT A COPY OF THE [employer] PROGRESS NOTE. MTDD
== END ==
LOC: M PAIN 13:30
PROVIDERS: ATTEND Anesthesiology
DX: M51.16 Intervertebral disc disorders with radiculopathy, lumbar region (principal); G89.29 Other chronic pain; E11.9 Type 2 diabetes mellitus without complications; I10 Essential (primary) hypertension; J45.909 Unspecified asthma, uncomplicated; Z86.59 Personal history of other mental and behavioral disorders; M79.7 Fibromyalgia; K31.84 Gastroparesis; F17.210 Nicotine dependence, cigarettes, uncomplicated; Z88.0 Allergy status to penicillin; Z88.1 Allergy status to other antibiotic agents; Z88.2 Allergy status to sulfonamides; Z88.8 Allergy status to other drugs, medicaments and biological substances; Z91.018 Allergy to other foods; Z91.040 Latex allergy status; Z86.14 Personal history of Methicillin resistant Staphylococcus aureus infection; Z79.01 Long term (current) use of anticoagulants; Z79.4 Long term (current) use of insulin; Z79.899 Other long term (current) drug therapy

== ENCOUNTER 2019-07-11 12:31 | Inpatient (IN) | payer OTHER ==
[~2019-07-11] VITALS: Ht 177.8 cm; Wt 121.0 kg
[~2019-07-11 12:31] MED LIST changes: -METH1CAP3 PO
[2019-07-11] MEDS ORDERED: VANCOMYCIN HCL 1,000 MG, VIAL MATE ADAPTER 1 EACH in D5W 250 ML IV ONE (13:00)
[2019-07-11 13:32] LABS: BASO % 0.4 % (0.0-1.0); EOS # 0.1 10^3/uL (0.0-0.5); EOS % 2.3 % (0.0-3.0); HEMATOCRIT 31.3 % (36.0-47.0); HEMOGLOBIN 10.9 g/dl (12.0-15.5); LYMPH # 1.2 10^3/uL (1.5-5.0); LYMPH % 21.3 % (24.0-44.0); MEAN CORPUSCULAR HEMOGLOBIN 28.9 pg (27.0-33.0); MEAN CORPUSCULAR HGB CONC 34.8 g/dl (32.0-36.5); MONO # 0.5 10^3/uL (0.0-0.8); MONO % 9.6 % (0.0-5.0); NEUTROPHILS # 3.7 10^3/uL (1.5-8.5); NEUTROPHILS % 65.1 % (36.0-66.0); PLATELET COUNT, AUTOMATED 183 10^3/uL (150-450); RED BLOOD COUNT 3.77 10^6/uL (4.00-5.40); WHITE BLOOD COUNT 5.6 10^3/uL (4.0-10.0)
--- NOTE | 2019-07-11 13:44 | REP ---
Right lower extremity Duplex Doppler venous ultrasound: Real time compression and duplex Doppler interrogation of the right lower extremity deep venous system is performed. The right common femoral, superficial femoral and popliteal veins are fully compressible with transducer pressure and demonstrate normal spontaneous and phasic flow, without evidence of deep venous thrombosis. Impression: No evidence of deep venous thrombosis of the right lower extremity femoral popliteal venous system. Electronically Signed by Jomar Akbar MD 07/11/2019 01:36 P
[2019-07-11 14:12] LABS: ALBUMIN 2.9 GM/DL (3.2-5.2); ALT/SGPT 29 U/L (12-78); BILIRUBIN,DIRECT < 0.1 MG/DL (0.0-0.2); BILIRUBIN,TOTAL 0.3 MG/DL (0.2-1.0); BLOOD UREA NITROGEN 28 MG/DL (7-18); C REACTIVE PROTEIN QUANTITATIV 5.23 MG/DL (0.00-0.30); CALCIUM LEVEL 8.9 MG/DL (8.5-10.1); CARBON DIOXIDE LEVEL 25 MEQ/L (21-32); CHLORIDE LEVEL 97 MEQ/L (98-107); CREATININE FOR GFR 1.51 MG/DL (0.55-1.30); GLOMERULAR FILTRATION RATE 38.8 (>51); GLUCOSE, FASTING 520 MG/DL (70-100); POTASSIUM SERUM 4.2 MEQ/L (3.5-5.1); SODIUM LEVEL 132 MEQ/L (136-145); TOTAL PROTEIN 6.4 GM/DL (6.4-8.2)
[2019-07-11] MEDS ORDERED: HumuLIN R (REGULAR) INSULIN (NovoLIN R) **100U/ML** PER UNIT IV ONE (14:15)
[2019-07-11] MEDS ORDERED: NS 500 ML IV ONE (14:15)
[2019-07-11 14:18] LABS: ERYTHROCYTE SEDIMENTATION RATE 81 mm/hr (0-30)
[2019-07-11] MEDS ORDERED: TORS10TA3 PO (15:17)
[2019-07-11] MEDS ORDERED: METH1CAP3 PO (15:17)
[2019-07-11] MEDS ORDERED: LevoFLOXacin IV 500 MG in IV 1 EA IV ONE (15:30)
[2019-07-11] MEDS ORDERED: GLUCOSE 4 GM CHEW TABLET PO PRN (15:45)
[2019-07-11] MEDS ORDERED: ALBUTEROL SULFATE 2.5 MG/0.5 ML INH NEB SOLN INH PRN (15:45)
[2019-07-11] MEDS ORDERED: GLUCAGON FOR INJ 1 MG VIAL (J1610) SC PRN (15:45)
[2019-07-11] MEDS ORDERED: TORSEMIDE 10 MG TABLET PO PRN (15:45)
[2019-07-11] MEDS ORDERED: CYCLOBENZAPRINE 10 MG TAB PO PRN (15:45)
[2019-07-11] MEDS ORDERED: DEXTROSE 50% 50 ML SYRINGE IV PRN (15:45)
[2019-07-11] MEDS ORDERED: ACETAMINOPHEN 500 MG TAB PO PRN (17:00)
[2019-07-11] MEDS ORDERED: ONDANSETRON 4MG/2ML VIAL (J2405) IV PRN (17:00)
[2019-07-11] MEDS ORDERED: NORCO, ANEXSIA 5/325MG TABLET (HYDROcodone/ACETAMINOPHEN) PO PRN (17:00)
[2019-07-11] MEDS ORDERED: HumaLOG INSULIN (NovoLOG) PER UNIT SC SCH ×2 (17:30→21:00)
[2019-07-11] MEDS: NORCO, ANEXSIA 5/325MG TABLET (HYDROcodone/ACETAMINOPHEN) PO PRN (17:30)
[2019-07-11] MEDS: LACTOBACILLUS ACIDOPHILUS CAP (BACID) PO SCH (18:00)
[2019-07-11] MEDS: HumaLOG INSULIN (NovoLOG) PER UNIT SC SCH ×2 (18:39→21:32)
[2019-07-11] MEDS: rOPINIRole 1MG TAB PO SCH (18:39)
[2019-07-11 18:44] VITALS: BP 158/82
[2019-07-11] MEDS: SYMBICORT 80/4.5MCG INHALER 6GM INH SCH (20:39)
[2019-07-11] MEDS: QUEtiapine FUMARATE 200 MG TAB PO SCH (21:29)
[2019-07-11] MEDS: MONTELUKAST 10 MG TAB PO SCH (21:30)
[2019-07-11] MEDS: TAMSULOSIN 0.4 MG CAP PO SCH (21:30)
[2019-07-11] MEDS: PREGABALIN 100 MG CAP (LYRICA) PO SCH (21:30)
[2019-07-11] MEDS: amLODIPine 10 MG TAB PO SCH (21:30)
[2019-07-11] MEDS: CARVedilol 12.5 MG TAB PO SCH (21:31)
[2019-07-11] MEDS: APIXABAN 5 MG TAB (ELIQUIS) PO SCH (21:31)
[2019-07-11] MEDS: DULoxetine 30 MG CAP (CYMBALTA) PO SCH (21:31)
[2019-07-11] MEDS: NYSTATIN 100,000 UNITS/GM TOPICAL PWD 15 GM TOP SCH (21:32)
[2019-07-11] MEDS: MAGNESIUM CHLORIDE 64 MG TABCR (SLO MAG) PO SCH (21:33)
[2019-07-12] MEDS: rOPINIRole 1MG TAB PO SCH ×2 (00:37→17:45)
[2019-07-12] MEDS: NORCO, ANEXSIA 5/325MG TABLET (HYDROcodone/ACETAMINOPHEN) PO PRN ×4 (00:39→21:51)
[2019-07-12 06:00] VITALS: BP 130/74
[2019-07-12 06:00] LABS: HEMOGLOBIN 11.2 g/dl (12.0-15.5); MEAN CORPUSCULAR VOLUME 85.8 fl (80.0-96.0); PLATELET COUNT, AUTOMATED 203 10^3/uL (150-450); RED BLOOD COUNT 3.73 10^6/uL (4.00-5.40); WHITE BLOOD COUNT 6.5 10^3/uL (4.0-10.0)
[2019-07-12 06:30] LABS: CALCIUM LEVEL 9.1 MG/DL (8.5-10.1); CREATININE FOR GFR 1.82 MG/DL (0.55-1.30); GLOMERULAR FILTRATION RATE 31.3 (>51); POTASSIUM SERUM 4.4 MEQ/L (3.5-5.1)
--- NOTE | 2019-07-12 07:51 | HPE ---
DATE OF ADMISSION: 07/11/2019 PRIMARY CARE PROVIDER: Mireille Quijano MD CONSULTANTS: Sourav Scott MD VALIDATION LEADER: Yung Guerra DPM PRINCIPLE DIAGNOSIS: Cellulitis right leg. HISTORY: Patient is a diabetic, frequently admitted with cellulitis, recently seen by Dr. Sourav Scott from infectious disease on 07/02/2019. She noticed diabetic foot ulcer right leg with cellulitis. She is being treated within Zyvox and doxycycline. She failed to respond to this. She had increasing erythema of her leg, so she saw Dr. Quijano who sent her to the emergency room for admission. She has a history of recurrent cellulitis. PAST MEDICAL HISTORY: Shows diabetes. Followed by [facility]. She has a Charcot joint in her right foot, status post left foot amputation. Spinal stenosis at L2 to L5. Chronic back pain, followed by the pain clinic, on chronic opiate therapy. Hypogammaglobulinemia. Hypertension. Asthma. Bipolar disorder with obsessive-compulsive disorder (OCD) and agoraphobia. Fibromyalgia. Spina bifida occulta. Right lower temporomandibular joint dysfunction. Psoriasis. Temporal lobe seizures. Gastroesophageal reflux disease (GERD) with a hiatal hernia. Herpes simplex 2 via PCR. Cultures from back lesions. History of fatty liver. Factor V Leiden status, on chronic anticoagulant therapy. Diabetic gastroparesis. History of rectosigmoid ischemic colitis. Urinary retention, followed by [facility]. 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 ALLERGIES: PENICILLIN causes anaphylaxis. SULFA caused hives. TRICOR caused hives. METFORMIN caused hives. LIPITOR caused hives. ZOCOR caused hives. PINEAPPLE causes sores in her mouth. KEFLEX caused hives. PAST SURGICAL HISTORY: Cholecystectomy 1995. Cervical discectomy and fusion 1994. Hysterectomy in 2000. Lumpectomy right breast 2003. Multiple diagnostic laparoscopies. Peripherally inserted central catheter (PICC) lines repeatedly. Venous Port-a-Cath times two left chest. Appendectomy in 2008. Stool transplant for Clostridium (C) difficile colitis. Ulnar release and carpal tunnel release right arm. Left [id number] amputation (BKA) for chronic wound and osteomyelitis May 2017. Esophagogastroduodenoscopies (EGDs) June 2018, October 2018. Colonoscopy June 2018. FAMILY HISTORY: Father of heart disease and prostate cancer. Mother had osteoporosis, hypertension, strokes. SOCIAL HISTORY: She smokes daily. No alcohol use. 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 MEDICATION: Medication list is not yet reconciled. Once reconciled, we will refer to that list. REVIEW OF SYSTEMS: She denied fevers. No chills. She saw Dr. Guerra for swollen, erythematous toes. No chest pain, shortness of breath, palpitation, rectal bleeding, or urinary bleeding. PHYSICAL EXAMINATION: Alert, conversant, in no distress. Pupils equal, react to light. Tympanic membranes (TMs) and oropharynx benign. NECK: No masses. LUNGS: Clear. HEART: Regular without murmur. ABDOMEN: Soft. Nontender. No masses. Status post left BKA. Right lower extremity is erythematous to the knee, starting on the forefoot. LABS: White count 5.6, hemoglobin 10.9, platelets 183. Sodium 132, potassium 4.2, BUN 28, creatinine 1.5, glucose 520. Last hemoglobin A1c from 06/27/2019 was 9.9%. C-reactive protein is 5.2. IMPRESSION/PLAN: 1. Cellulitis of right lower leg. She has responded to Levaquin in the past. She has PENICILLIN allergies and has failed outpatient Zyvox and doxycycline. 2. Diabetes. Sliding scale of insulin coverage and basal insulin to be continued. 3. Hypertensive heart disease. Continue antihypertensives. 4. Factor V Leiden. 5. History of left femoral deep venous thrombosis (DVT). Continue with her Eliquis. 6. History of Clostridium difficile colitis. Probiotics have been ordered. 7. Fibromyalgia/depression. Continue her current medical regimen for this. Hospitalist will assume her care during this admission.
[2019-07-12] MEDS: HumaLOG INSULIN (NovoLOG) PER UNIT SC SCH ×4 (08:19→21:52)
[2019-07-12] MEDS: LACTOBACILLUS ACIDOPHILUS CAP (BACID) PO SCH ×3 (08:20→17:46)
[2019-07-12] MEDS: PREGABALIN 100 MG CAP (LYRICA) PO SCH ×2 (08:21→21:50)
[2019-07-12] MEDS: APIXABAN 5 MG TAB (ELIQUIS) PO SCH ×2 (08:21→21:50)
[2019-07-12] MEDS: NYSTATIN 100,000 UNITS/GM TOPICAL PWD 15 GM TOP SCH ×2 (08:23→21:53)
[2019-07-12] MEDS: CARVedilol 12.5 MG TAB PO SCH ×2 (08:23→21:50)
[2019-07-12] MEDS ORDERED: FLUBLOK(EGG FREE)(QUAD)INFLUENZA VACC 0.5ML SYRINGE (90682)18YRS&OLDER IM ONE (09:00)
[2019-07-12] MEDS: SYMBICORT 80/4.5MCG INHALER 6GM INH SCH ×2 (09:26→20:32)
--- NOTE | 2019-07-12 12:08 | IPNPDOC ---
Text Note Date of Service The patient was seen on 07/12/19. NOTE Subjective: Patient is a 49-year-old female with a PMHx of Factor V Leiden mutation (on Eliquis), Hx of DVT (on Eliquis), HTN, IDDM2, PVD s/p L BKA and R foot digit amputations, Asthma, CKD2 with Proteinuria, Hypogammaglobulinemia, Temporal lobe seizures, Chronic back pain 2/2 Spinal Stenosis (L2 to L5), Spina bifida occulta, R TMJ dysfunction, Fibromyalgia, Bipolar disorder / OCD / Agoraphobia, Psoriasis, HSV2, Hx of Wynn's Palsy, Urinary retention (does not straight cath), Hx of Rectosigmoid ischemic colitis, Gastroparesis 2/2 DM, GERD. Patient presented to the emergency room at the direction of her primary care provider, Dr. Mireille Quijano. . She was admitted for elevated glucose levels and suspected right foot infection. As an outpatient she has received an MRI of her R foot on 06/21/2019 that suggested osteomyelitis of her third digit. Patient was admitted to the hospitalist service for further evaluation and treatment. Patient was seen and examined at the bedside. Currently, patient reports that she denies any chest pain, shortness of breath or palpitations. She reports that her lower extremities do appear to have some level of swelling. She denies any abdominal pain or diarrhea. Patient has noted that she has not urinated in a wh ile. Bladder scans have not revealed any significant level of urinary retention. Objective: Vitals (See below) General: Lying in bed, no acute distress, comfortable, AAOx3 HEENT: NC, AT CVS: RRR, +S1S2 Lungs: Fair air entry b/l, -w/r/r Abdomen: Soft, ND, NT Extremities: There appears to be 1+ pitting edema of the right calf, - Calf tenderness, L BKA Skin: Third digit of right foot appears to have an area of chronic inflammation, no area of erythema, warmth or drainage noted Assessment and plan: Cellulitis of R foot - Patient presented to the emergency room at the direction of her primary care provider, Dr. Quijano for suspected right foot infection - Patient has indicated that she has completed her therapy as an outpatient with doxycycline and linezolid; last dose was roughly 4 days prior to admission - Physical does not appear to reveal any significant signs of infection of the right third digit - No significant leukocytosis; lactic acidosis was noted, but has resolved - Blood cultures 07/11: Pending - Vascular US 07/11: No evidence of DVT of right lower extremity - Patient has received an MRI on 06/21/2019 that suggested possibility of osteomyelitis of the right third digit of foot - Patient has been started on Levaquin and Vancomycin on 07/11 - Case is discussed with Dr. Guerra of podiatry will be evaluating the patient today Factor V Leiden mutation - Hx of DVT - c/w Eliquis HTN - Some evidence of LE edema - c/w Torsemide, Amlodipine and Carvedilol IDDM2 - c/w ISS and PVD s/p L BKA and R foot digit amputations Asthma - No evidence of exacerbation - c/w Inhaled therapy as ordered CKD2 with Proteinuria - Kidney function appears to have declined over last 24 hours - Will hold IV fluids and c/w Diuresis given LE edeam Hypogammaglobulinemia Temporal lobe seizures Chronic back pain 2/2 Spinal Stenosis (L2 to L5) - Hx of Spina bifida occulta - c/w Cyclobenzaprine and Pregabalin R TMJ dysfunction Fibromyalgia / Bipolar disorder / OCD / Agoraphobia - c/w Duloxetine and Quetiapine RLS - c/w Ropinirole Psoriasis HSV2 / Hx of Wynn's Palsy Urinary retention - Patient reports she does not straight cath at home - c/w Tamsulosin - Will c/w bladder scans q6h Hx of Rectosigmoid ischemic colitis Gastroparesis and GERD - c/w Zofran PRN DVT prophylaxis - c/w full anticoagulation with Eliquis VS,Fishbone, I+O VS, Fishbone, I+O Laboratory Tests 07/11/19 13:09 Red Blood Count 3.77 L, Mean Corpuscular Volume 83.0, Mean Corpuscular Hemoglobin 28.9, Mean Corpuscular Hemoglobin Concent 34.8, Red Cell Distribution Width 13.5, Neutrophils (%) (Auto) 65.1, Lymphocytes (%) (Auto) 21.3 L, Monocytes (%) (Auto) 9.6 H, Eosinophils (%) (Auto) 2.3, Basophils (%) (Auto) 0.4, Neutrophils # (Auto) 3.7, Lymphocytes # (Auto) 1.2 L, Monocytes # (Auto) 0.5, Eosinophils # (Auto) 0.1, Basophils # (Auto) 0.0 07/12/19 05:40 Red Blood Count 3.73 L, Mean Corpuscular Volume 85.8, Mean Corpuscular Hemoglobin 30.0, Mean Corpuscular Hemoglobin Concent 35.0, Red Cell Distribution Width 13.7, Calcium Level 9.1 Vital Signs Date Time Temp Pulse Resp B/P (MAP) Pulse Ox O2 Delivery O2 Flow Rate FiO2 07/12/19 09:56 16 07/12/19 08:23 77 125/73 07/12/19 06:00 96.5 96 07/11/19 16:15 Room Air l I&O- Last 24 Hours up to 6 AM 07/12/19 05:59 Intake Total 820 ml Balance 820 ml FITO CALVERT MD Jul 12, 2019 12:08
[2019-07-12 14:00] VITALS: BP 139/73
[2019-07-12] MEDS: LevoFLOXacin IV 250 MG in IV 1 EA IV SCH (16:00)
[2019-07-12] MEDS ORDERED: KETOROLAC TROMETHAMINE 10 MG TAB PO PRN (16:15)
[2019-07-12 18:00] VITALS: BP 147/79
[2019-07-12] MEDS ORDERED: LevoFLOXacin 250 MG TABLET PO ONE (18:00)
[2019-07-12] MEDS: ONDANSETRON 4 MG TAB (S0181) PO PRN (20:44)
[2019-07-12 21:39] VITALS: BP 184/88
[2019-07-12] MEDS: amLODIPine 10 MG TAB PO SCH (21:49)
[2019-07-12] MEDS: TAMSULOSIN 0.4 MG CAP PO SCH (21:49)
[2019-07-12] MEDS: DULoxetine 30 MG CAP (CYMBALTA) PO SCH (21:49)
[2019-07-12] MEDS: MONTELUKAST 10 MG TAB PO SCH (21:49)
[2019-07-12] MEDS: LEVEMIR (INSULIN DETEMIR) 1 UNITS/0.01ML SC SCH (21:52)
[2019-07-12 22:00] VITALS: BP 158/84
[2019-07-12] MEDS: MAGNESIUM CHLORIDE 64 MG TABCR (SLO MAG) PO SCH (22:06)
[2019-07-12] MEDS: QUEtiapine FUMARATE 200 MG TAB PO SCH (22:06)
[2019-07-12 23:41] VITALS: BP 121/58
[2019-07-13] MEDS: rOPINIRole 1MG TAB PO SCH ×3 (00:46→21:44)
[2019-07-13 06:00] VITALS: BP 125/60
[2019-07-13 06:07] LABS: WHITE BLOOD COUNT 5.1 10^3/uL (4.0-10.0)
[2019-07-13 06:08] LABS: HEMATOCRIT 31.7 % (36.0-47.0); HEMOGLOBIN 10.8 g/dl (12.0-15.5); MEAN CORPUSCULAR HGB CONC 34.1 g/dl (32.0-36.5); MEAN CORPUSCULAR VOLUME 88.1 fl (80.0-96.0); PLATELET COUNT, AUTOMATED 166 10^3/uL (150-450)
[2019-07-13 06:28] LABS: CALCIUM LEVEL 8.6 MG/DL (8.5-10.1); CREATININE FOR GFR 2.13 MG/DL (0.55-1.30); GLOMERULAR FILTRATION RATE 26.1 (>51); POTASSIUM SERUM 4.1 MEQ/L (3.5-5.1)
[2019-07-13] MEDS: SYMBICORT 80/4.5MCG INHALER 6GM INH SCH ×2 (07:22→18:22)
[2019-07-13] MEDS: LEVEMIR (INSULIN DETEMIR) 1 UNITS/0.01ML SC SCH ×2 (08:13→21:41)
[2019-07-13] MEDS: LACTOBACILLUS ACIDOPHILUS CAP (BACID) PO SCH ×3 (08:13→17:15)
[2019-07-13] MEDS: TORSEMIDE 10 MG TABLET PO SCH (08:14)
[2019-07-13] MEDS: HumaLOG INSULIN (NovoLOG) PER UNIT SC SCH ×4 (08:14→21:00)
[2019-07-13] MEDS: PREGABALIN 100 MG CAP (LYRICA) PO SCH ×2 (08:14→21:37)
[2019-07-13] MEDS: CARVedilol 12.5 MG TAB PO SCH ×2 (08:15→21:38)
[2019-07-13] MEDS: NORCO, ANEXSIA 5/325MG TABLET (HYDROcodone/ACETAMINOPHEN) PO PRN ×4 (08:15→21:38)
[2019-07-13] MEDS: APIXABAN 5 MG TAB (ELIQUIS) PO SCH ×2 (08:15→21:37)
[2019-07-13] MEDS: NYSTATIN 100,000 UNITS/GM TOPICAL PWD 15 GM TOP SCH ×2 (08:16→21:40)
[2019-07-13] MEDS ORDERED: LIDOCAINE 1% MDV 20ML VIAL As Ordered ONE (13:15)
--- NOTE | 2019-07-13 13:17 | IPNPDOC ---
Text Note Date of Service The patient was seen on 07/13/19. NOTE Subjective: Patient is a 49-year-old female with a PMHx of Factor V Leiden mutation (on Eliquis), Hx of DVT (on Eliquis), HTN, IDDM2, PVD s/p L BKA and R foot digit amputations, Asthma, CKD2 with Proteinuria, Hypogammaglobulinemia, Temporal lobe seizures, Chronic back pain 2/2 Spinal Stenosis (L2 to L5), Spina bifida occulta, R TMJ dysfunction, Fibromyalgia, Bipolar disorder / OCD / Agoraphobia, Psoriasis, HSV2, Hx of Wynn's Palsy, Urinary retention (does not straight cath), Hx of Rectosigmoid ischemic colitis, Gastroparesis 2/2 DM, GERD. Patient presented to the emergency room at the direction of her primary care provider, Dr. Mireille Quijano. . She was admitted for elevated glucose levels and suspected right foot infection. As an outpatient she has received an MRI of her R foot on 06/21/2019 that suggested osteomyelitis of her third digit. Patient was admitted to the hospitalist service for further evaluation and treatment. Patient was seen and examined at the bedside. Currently patient reports that she is feeling fine. She will be evaluated by Podiatry. Denies any CP, SOB or palpitations. Does report from lower back pain overnight. Denies any abdominal pain / diarrhea. Objective: Vitals (See below) General: Lying in bed, no acute distress, comfortable, AAOx3 HEENT: NC, AT CVS: RRR, +S1S2 Lungs: Fair air entry b/l, no evidence of rhonchi / rales / wheezing Abdomen: Soft, nondistended and nontender Extremities: There appears to be 1+ pitting edema of the right calf, - Calf tenderness, L BKA Skin: Again third digit of right foot does not appear to have any signs of infection. No evidence of erythema, warmth or drainage Assessment and plan: Cellulitis of R foot - Patient presented to the emergency room at the direction of her primary care provider, Dr. Quijano for suspected right foot infection - Patient has indicated that she has completed her therapy as an outpatient with doxycycline and linezolid; last dose was roughly 4 days prior to admission - Physical does not appear to reveal any significant signs of infection of the right third digit - No significant leukocytosis; lactic acidosis was noted, but has resolved - Blood cultures 07/11: Negative at 24 hours - Vascular US 07/11: No evidence of DVT of right lower extremity - Patient has received an MRI on 06/21/2019 that suggested possibility of osteomyelitis of the right third digit of foot - c/w Levaquin (Day #3) - Case is discussed with Dr. Guerra; will be on consultation - will evaluate R foot to determine need for intervention Factor V Leiden mutation - Hx of DVT - c/w Eliquis HTN - Some evidence of LE edema - c/w Torsemide, Amlodipine and Carvedilol IDDM2 - c/w ISS and Levemir PVD s/p L BKA and R foot digit amputations Asthma - No evidence of exacerbation - c/w Inhaled therapy as ordered Worsening renal function on CKD2 with Proteinuria - Cr baseline of approximately 1.5 - Cr has trended up - Possibly 2/2 fluid overload - will resume diuresis Hypogammaglobulinemia Temporal lobe seizures Chronic back pain 2/2 Spinal Stenosis (L2 to L5) - Hx of Spina bifida occulta - c/w Cyclobenzaprine and Pregabalin R TMJ dysfunction Fibromyalgia / Bipolar disorder / OCD / Agoraphobia - c/w Duloxetine and Quetiapine RLS - c/w Ropinirole Psoriasis HSV2 / Hx of Wynn's Palsy Urinary retention - Patient reports she does not straight cath at home - c/w Tamsulosin - c/w bladder scans q6h Hx of Rectosigmoid ischemic colitis Gastroparesis and GERD - c/w Zofran PRN DVT prophylaxis - c/w full anticoagulation with Eliquis VS,Fishbone, I+O VS, Fishbone, I+O Laboratory Tests 07/13/19 05:40 Red Blood Count 3.60 L, Mean Corpuscular Volume 88.1, Mean Corpuscular Hemoglobin 30.0, Mean Corpuscular Hemoglobin Concent 34.1, Red Cell Distribution Width 14.0, Calcium Level 8.6 Vital Signs Date Time Temp Pulse Resp B/P (MAP) Pulse Ox O2 Delivery O2 Flow Rate FiO2 07/13/19 09:02 18 07/13/19 08:15 80 128/72 07/13/19 06:00 97.1 90 07/11/19 16:15 Room Air I&O- Last 24 Hours up to 6 AM 07/13/19 06:00 Intake Total 1620 ml Output Total 950 ml Balance 670 ml FITO CALVERT MD Jul 13, 2019 13:17
[2019-07-13 15:30] VITALS: BP 102/56
[2019-07-13] MEDS ORDERED: SODIUM CHLORIDE 0.9% INJ 10 ML SYR IV PRN (16:00)
[2019-07-13] MEDS: LevoFLOXacin IV 250 MG in IV 1 EA IV SCH (16:17)
[2019-07-13 16:31] LABS: CALCIUM LEVEL 8.9 MG/DL (8.5-10.1); CREATININE FOR GFR 2.3 MG/DL (0.55-1.30); GLOMERULAR FILTRATION RATE 23.9 (>51); POTASSIUM SERUM 4.3 MEQ/L (3.5-5.1)
[2019-07-13] MEDS: SODIUM CHLORIDE 0.9% INJ 10 ML SYR IV SCH (17:17)
--- NOTE | 2019-07-13 18:01 | IPN ---
DATE: 07/13/2019 at 1:06 p.m. CHIEF COMPLAINT: Patient seen for evaluation of a swollen 3rd toe of the right foot. Patient states that toe had a blister several days ago with some discharge, but now it is healed. It is still somewhat swollen but due to her neuropathy it is not painful, and she is seen today at her bedside. VITAL SIGNS: Temperature 97.1, respirations 18, pulse oximetry is 90. LABORATORY STUDIES: Her white count is 5.1, ESR is 81. Her C-reactive protein is 5.23. Evaluation of her toe reveals some swelling on the distal aspect of the 3rd toe of the right foot. There is no ulceration. It is firm to the touch. There is no fluctuance that could be expressed. There is no increased temperature. ASSESSMENT: Contusion of the right foot, less likely osteomyelitis since there is no overlying breaks in the skin. PLAN: Patient most likely had a contusion or injury to the distal phalanx in light of no continued sinus tract. Osteomyelitis would most likely have a sinus tract over that location; however, if we are concerned for osteomyelitis, a dose of Dalvance IV could be indicated. Her questions were answered.
--- NOTE | 2019-07-13 18:58 | REP ---
IR midline Placement. Indication: Poor IV access. Infection. Physician: Dr. Schulte. Procedure: The patient was advised of the benefits, risks and alternatives of the procedure and informed consent was obtained. The time-out was performed with verification of the patient's name, MRN, site of procedure and type of procedure to be performed. The patient was positioned in the supine position on the angiographic table. The site was prepped and draped in the usual sterile fashion. Ultrasound was used to identify the right brachial vein. A micropuncture needle was used to access the right brachial vein under ultrasound guidance. An 018 wire was advanced centrally through this vein under fluoroscopy guidance. The needle was exchanged for peel-away sheath. A midline catheter was advanced over the wire through the peel-away sheath and positioned in the axillary vein, under fluoroscopy guidance. The sheath was removed. The catheter was secured in place with 2-0 Prolene. Complications: None Estimated blood loss: < 15 ml. The patient tolerated the procedure well and was returned to the unit in stable condition. Impression: 1. Successful right brachial vein midline catheter placement. 2. Patient would benefit from a long-term catheter or port placement. The patient will need 48 hour Eliquis hold for this procedure. Thank you this referral. Electronically Signed by Anupama Schulte MD 07/13/2019 06:57 P
[2019-07-13] MEDS: MONTELUKAST 10 MG TAB PO SCH (21:36)
[2019-07-13] MEDS: MAGNESIUM CHLORIDE 64 MG TABCR (SLO MAG) PO SCH (21:36)
[2019-07-13] MEDS: TAMSULOSIN 0.4 MG CAP PO SCH (21:37)
[2019-07-13] MEDS: DULoxetine 30 MG CAP (CYMBALTA) PO SCH (21:37)
[2019-07-13] MEDS: QUEtiapine FUMARATE 200 MG TAB PO SCH (21:37)
[2019-07-13] MEDS: amLODIPine 10 MG TAB PO SCH (21:38)
[2019-07-13] MEDS: ONDANSETRON 4 MG TAB (S0181) PO PRN (21:43)
[2019-07-13 22:00] VITALS: BP 154/72
[2019-07-14] MEDS: SODIUM CHLORIDE 0.9% INJ 10 ML SYR IV SCH ×2 (05:36→17:25)
[2019-07-14] MEDS: ONDANSETRON 4 MG TAB (S0181) PO PRN (05:38)
[2019-07-14] MEDS: NORCO, ANEXSIA 5/325MG TABLET (HYDROcodone/ACETAMINOPHEN) PO PRN ×4 (05:39→22:36)
[2019-07-14 06:00] VITALS: BP 146/73
[2019-07-14 06:28] LABS: HEMATOCRIT 30.7 % (36.0-47.0); HEMOGLOBIN 10.3 g/dl (12.0-15.5); MEAN CORPUSCULAR HEMOGLOBIN 29.4 pg (27.0-33.0); MEAN CORPUSCULAR HGB CONC 33.6 g/dl (32.0-36.5); MEAN CORPUSCULAR VOLUME 87.7 fl (80.0-96.0); PLATELET COUNT, AUTOMATED 188 10^3/uL (150-450)
[2019-07-14 06:54] LABS: CALCIUM LEVEL 8.8 MG/DL (8.5-10.1); CREATININE FOR GFR 2.24 MG/DL (0.55-1.30); GLOMERULAR FILTRATION RATE 24.6 (>51); POTASSIUM SERUM 4.2 MEQ/L (3.5-5.1)
[2019-07-14] MEDS: HumaLOG INSULIN (NovoLOG) PER UNIT SC SCH ×4 (07:30→21:26)
[2019-07-14] MEDS: PREGABALIN 100 MG CAP (LYRICA) PO SCH ×2 (08:08→21:24)
[2019-07-14] MEDS: APIXABAN 5 MG TAB (ELIQUIS) PO SCH ×2 (08:08→21:24)
[2019-07-14] MEDS: LACTOBACILLUS ACIDOPHILUS CAP (BACID) PO SCH ×3 (08:08→17:24)
[2019-07-14] MEDS: CARVedilol 12.5 MG TAB PO SCH ×2 (08:11→21:24)
[2019-07-14] MEDS: TORSEMIDE 10 MG TABLET PO SCH (08:11)
[2019-07-14] MEDS ORDERED: LEVEMIR (INSULIN DETEMIR) 1 UNITS/0.01ML SC ONE (08:30)
[2019-07-14] MEDS: SYMBICORT 80/4.5MCG INHALER 6GM INH SCH ×2 (08:54→21:13)
[2019-07-14] MEDS: LEVEMIR (INSULIN DETEMIR) 1 UNITS/0.01ML SC SCH ×2 (09:00→21:26)
[2019-07-14] MEDS: NYSTATIN 100,000 UNITS/GM TOPICAL PWD 15 GM TOP SCH ×2 (09:11→21:27)
--- NOTE | 2019-07-14 11:09 | IPNPDOC ---
Text Note Date of Service The patient was seen on 07/14/19. NOTE Subjective: Patient is a 49-year-old female with a PMHx of Factor V Leiden mutation (on Eliquis), Hx of DVT (on Eliquis), HTN, IDDM2, PVD s/p L BKA and R foot digit amputations, Asthma, CKD2 with Proteinuria, Hypogammaglobulinemia, Temporal lobe seizures, Chronic back pain 2/2 Spinal Stenosis (L2 to L5), Spina bifida occulta, R TMJ dysfunction, Fibromyalgia, Bipolar disorder / OCD / Agoraphobia, Psoriasis, HSV2, Hx of Wynn's Palsy, Urinary retention (does not straight cath), Hx of Rectosigmoid ischemic colitis, Gastroparesis 2/2 DM, GERD. Patient presented to the emergency room at the direction of her primary care provider, Dr. Mireille Quijano. . She was admitted for elevated glucose levels and suspected right foot infection. As an outpatient she has received an MRI of her R foot on 06/21/2019 that suggested osteomyelitis of her third digit. Patient was admitted to the hospitalist service for further evaluation and treatment. Patient was seen and examined at the bedside. Patient is reporting back pain, but she denies any chest pain, shortness of breath, palpitations. She reports that her leg does appear to be slightly swollen. Denies nausea, vomiting or diarrhea. Objective: Vitals (See below) General: Lying in bed, no acute distress, comfortable, AAOx3 HEENT: NC, AT CVS: RRR, +S1S2 Lungs: Fair air entry b/l, no evidence of rhonchi / rales / wheezing Abdomen: Soft, nondistended and nontender Extremities: Right calf does appear to have 1+ to trace edema, - Calf tenderness, L BKA with some edema around stump site Skin: Right foot third digit; no evidence of erythema, drainage or tenderness, no sinus tracts noted Assessment and plan: Suspected osteomyelitis of R foot - Patient presented to the ER at the direction of her PCP, Dr. Quijano for suspected right foot 3rd digit infection - Patient has indicated that she has completed her therapy as an outpatient with doxycycline and linezolid; last dose was roughly 4 days prior to admission - Physical does not appear to reveal any significant signs of infection of the right third digit - No significant leukocytosis; lactic acidosis was noted, but has resolved - Blood cultures 07/11: Negative at 48 hours - Vascular US 07/11: No evidence of DVT of right lower extremity - Patient has received an MRI on 06/21/2019 that suggested possibility of osteomyelitis of the right third digit of foot - Will LUIS Granado - Dr. Guerra; on consultation; has evaluated the right foot and currently does not appear to have any signs of ongoing infection, likely a contusion Factor V Leiden mutation - Hx of DVT - c/w Eliquis HTN - Some evidence of LE edema - ECHO 09/2018: G1DD, Preserved EF - c/w Torsemide, Amlodipine and Carvedilol Worsening renal function on CKD2 with Proteinuria - Cr baseline of approximately 1.5 - Cr has remained relatively stable over last 24 hours - Follows with Nephrology as an outpatient - will consider consultation if renal function fails to improve Urinary retention - Patient reports she does not straight cath at home - c/w Tamsulosin - c/w bladder scans q6h and will adjust straight cath parameters to ensure more frequent catheterizations IDDM2 - c/w ISS and Levemir PVD s/p L BKA and R foot digit amputations Asthma - No evidence of exacerbation - c/w Inhaled therapy as ordered Hypogammaglobulinemia Temporal lobe seizures Chronic back pain 2/2 Spinal Stenosis (L2 to L5) - Hx of Spina bifida occulta - c/w Cyclobenzaprine and Pregabalin R TMJ dysfunction Fibromyalgia / Bipolar disorder / OCD / Agoraphobia - c/w Duloxetine and Quetiapine RLS - c/w Ropinirole Psoriasis HSV2 / Hx of Wynn's Palsy Hx of Rectosigmoid ischemic colitis Gastroparesis and GERD - c/w Zofran PRN DVT prophylaxis - c/w full anticoagulation with Eliquis VS,Fishbone, I+O VS, Fishbone, I+O Laboratory Tests 07/13/19 15:54 Calcium Level 8.9 07/14/19 05:48 Calcium Level 8.8, Red Blood Count 3.50 L, Mean Corpuscular Volume 87.7, Mean Corpuscular Hemoglobin 29.4, Mean Corpuscular Hemoglobin Concent 33.6, Red Cell Distribution Width 14.0 Vital Signs Date Time Temp Pulse Resp B/P (MAP) Pulse Ox O2 Delivery O2 Flow Rate FiO2 07/14/19 10:41 17 9/28/19 08:11 84 152/77 07/14/19 06:00 98.7 98 07/11/19 16:15 Room Air I&O- Last 24 Hours up to 6 AM 07/14/19 06:00 Intake Total 860 ml Output Total 1400 ml Balance -540 ml FITO CALVERT MD Jul 14, 2019 11:09
[2019-07-14 14:00] VITALS: BP 146/76
[2019-07-14 15:41] LABS: CALCIUM LEVEL 8.6 MG/DL (8.5-10.1); CREATININE FOR GFR 2.36 MG/DL (0.55-1.30); GLOMERULAR FILTRATION RATE 23.2 (>51); POTASSIUM SERUM 4.6 MEQ/L (3.5-5.1)
[2019-07-14] MEDS: rOPINIRole 1MG TAB PO SCH ×2 (17:24→23:50)
[2019-07-14] MEDS: QUEtiapine FUMARATE 200 MG TAB PO SCH (21:23)
[2019-07-14] MEDS: DULoxetine 30 MG CAP (CYMBALTA) PO SCH (21:23)
[2019-07-14] MEDS: MONTELUKAST 10 MG TAB PO SCH (21:23)
[2019-07-14] MEDS: amLODIPine 10 MG TAB PO SCH (21:24)
[2019-07-14] MEDS: TAMSULOSIN 0.4 MG CAP PO SCH (21:24)
[2019-07-14] MEDS: MAGNESIUM CHLORIDE 64 MG TABCR (SLO MAG) PO SCH (21:25)
[2019-07-14 22:00] VITALS: BP 146/76
[2019-07-15 06:00] VITALS: BP 137/74
[2019-07-15] MEDS: SODIUM CHLORIDE 0.9% INJ 10 ML SYR IV SCH ×2 (06:23→17:28)
[2019-07-15] MEDS: NORCO, ANEXSIA 5/325MG TABLET (HYDROcodone/ACETAMINOPHEN) PO PRN ×4 (06:24→20:48)
[2019-07-15 06:35] LABS: HEMATOCRIT 28.5 % (36.0-47.0); HEMOGLOBIN 9.6 g/dl (12.0-15.5); MEAN CORPUSCULAR HEMOGLOBIN 29.6 pg (27.0-33.0); MEAN CORPUSCULAR HGB CONC 33.7 g/dl (32.0-36.5); PLATELET COUNT, AUTOMATED 165 10^3/uL (150-450); RED BLOOD COUNT 3.24 10^6/uL (4.00-5.40); WHITE BLOOD COUNT 5.9 10^3/uL (4.0-10.0)
[2019-07-15 07:07] LABS: CALCIUM LEVEL 8.7 MG/DL (8.5-10.1); GLOMERULAR FILTRATION RATE 28.1 (>51); POTASSIUM SERUM 4.9 MEQ/L (3.5-5.1)
[2019-07-15] MEDS: HumaLOG INSULIN (NovoLOG) PER UNIT SC SCH ×4 (07:58→20:50)
[2019-07-15] MEDS: LACTOBACILLUS ACIDOPHILUS CAP (BACID) PO SCH ×3 (07:58→17:28)
[2019-07-15] MEDS: SYMBICORT 80/4.5MCG INHALER 6GM INH SCH ×2 (08:20→20:27)
[2019-07-15] MEDS: PREGABALIN 100 MG CAP (LYRICA) PO SCH ×2 (09:21→20:44)
[2019-07-15] MEDS: TORSEMIDE 10 MG TABLET PO SCH (09:21)
[2019-07-15] MEDS: APIXABAN 5 MG TAB (ELIQUIS) PO SCH ×2 (09:21→20:44)
[2019-07-15] MEDS: LEVEMIR (INSULIN DETEMIR) 1 UNITS/0.01ML SC SCH ×2 (09:22→20:43)
[2019-07-15] MEDS: CARVedilol 12.5 MG TAB PO SCH ×2 (09:22→20:46)
[2019-07-15] MEDS: NYSTATIN 100,000 UNITS/GM TOPICAL PWD 15 GM TOP SCH ×2 (09:23→20:49)
--- NOTE | 2019-07-15 10:23 | REP ---
AP PORTABLE CHEST: 07/15/2019. Comparison: 06/20/2019, 10/06/2018. Clinical history: Dyspnea. Findings: Lungs are marginally adequate in the degree of inflation. There is some crowding of markings in the bases but no dense consolidation or effusion. Heart, mediastinal and hilar contours were grossly intact. The aorta and airway unremarkable. There is no vascular redistribution. Bones without acute finding. Impression: 1. Some crowded markings in the bases, associated with mild hypoinflation but no dense consolidation, effusion, cardiomegaly or edema. Electronically Signed by Lei Boucher MD 07/15/2019 01:09 P
--- NOTE | 2019-07-15 12:59 | IPNPDOC ---
Text Note Date of Service The patient was seen on 07/15/19. NOTE Subjective: Patient is a 49-year-old female with a PMHx of Factor V Leiden mutation (on Eliquis), Hx of DVT (on Eliquis), HTN, IDDM2, PVD s/p L BKA and R foot digit amputations, Asthma, CKD2 with Proteinuria, Hypogammaglobulinemia, Temporal lobe seizures, Chronic back pain 2/2 Spinal Stenosis (L2 to L5), Spina bifida occulta, R TMJ dysfunction, Fibromyalgia, Bipolar disorder / OCD / Agoraphobia, Psoriasis, HSV2, Hx of Wynn's Palsy, Urinary retention (does not straight cath), Hx of Rectosigmoid ischemic colitis, Gastroparesis 2/2 DM, GERD. Patient presented to the emergency room at the direction of her primary care provider, Dr. Mireille Quijano. . She was admitted for elevated glucose levels and suspected right foot infection. As an outpatient she has received an MRI of her R foot on 06/21/2019 that suggested osteomyelitis of her third digit. Patient was admitted to the hospitalist service for further evaluation and treatment. Patient was seen and examined at the bedside. Patient reports that she still experiences lower extremity swelling. Denies any CP, SOB or palpitations. Denies nausea, vomiting, diarrhea, or urinary discomfort. Patient is reporting urinary retention, however has been able to urinate without difficult most of day yeste rday. Objective: Vitals (See below) General: Lying in bed, no acute distress, comfortable, AAOx3 HEENT: NC, AT CVS: RRR, +S1S2 Lungs: Fair air entry b/l, no evidence of rhonchi / rales / wheezing Abdomen: Remains soft without distention / tenderness Extremities: trace to 1+ edema at RLE, - Calf tenderness, L BKA with some edema around stump site Skin: Right foot third digit; no drainage or tenderness noted Assessment and plan: Decompensated Diastolic CHF - Some evidence of LE edema - ECHO 09/2018: G1DD, Preserved EF - c/w Torsemide, Will give additional dose of Torsemide this evening Worsening renal function on CKD2 with Proteinuria - Cr baseline of approximately 1.5 - Cr has improved - Follows with Nephrology as an outpatient Urinary retention - Patient reports she does not straight cath at home - Patient has had episodes where she has presented to the emergency room for straight catheterization - Over the day yesterday, she has been able to void on her own with post void residuals of 0 - c/w Tamsulosin - c/w bladder scans q6h and will adjust straight cath parameters to ensure more frequent catheterizations Suspected osteomyelitis of R foot - Patient presented to the ER at the direction of her PCP, Dr. Quijano for s uspected right foot 3rd digit infection - Patient has indicated that she has completed her therapy as an outpatient with doxycycline and linezolid; last dose was roughly 4 days prior to admission - No evidence of infection at right lower extremity - No significant leukocytosis; lactic acidosis was noted, but has resolved - Blood cultures 07/11: Negative at 48 hours - Vascular US 07/11: No evidence of DVT of right lower extremity - Patient has received an MRI on 06/21/2019 that suggested possibility of osteomyelitis of the right third digit of foot - s/p Levaquin - Dr. Guerra; on consultation; appreciate their input Factor V Leiden mutation - Hx of DVT - c/w Eliquis HTN - c/w Amlodipine and Carvedilol IDDM2 - c/w ISS and Levemir PVD s/p L BKA and R foot digit amputations Asthma - No evidence of exacerbation - c/w Inhaled therapy as ordered Hypogammaglobulinemia Temporal lobe seizures Chronic back pain 2/2 Spinal Stenosis (L2 to L5) - Hx of Spina bifida occulta - c/w Cyclobenzaprine and Pregabalin R TMJ dysfunction Fibromyalgia / Bipolar disorder / OCD / Agoraphobia - c/w Duloxetine and Quetiapine RLS - c/w Ropinirole Psoriasis HSV2 / Hx of Wynn's Palsy Hx of Rectosigmoid ischemic colitis Gastroparesis and GERD - c/w Zofran PRN DVT prophylaxis - c/w full anticoagulation with Eliquis Disposition: - Possible discharge within 24-48 hours VSPam, I+O VSPam, I+O Laboratory Tests 07/14/19 15:05 Calcium Level 8.6 07/15/19 05:30 Calcium Level 8.7, Red Blood Count 3.24 L, Mean Corpuscular Volume 88.0, Mean Corpuscular Hemoglobin 29.6, Mean Corpuscular Hemoglobin Concent 33.7, Red Cell Distribution Width 13.7 Vital Signs Date Time Temp Pulse Resp B/P (MAP) Pulse Ox O2 Delivery O2 Flow Rate FiO2 07/15/19 12:17 17 07/15/19 09:22 86 147/73 07/15/19 06:54 95 07/15/19 06:00 98.7 07/11/19 16:15 Room Air I&O- Last 24 Hours up to 6 AM 07/15/19 06:00 Intake Total 1820 ml Output Total 1800 ml Balance 20 ml FITO CALVERT MD Jul 15, 2019 12:59
[2019-07-15 14:00] VITALS: BP 122/79
[2019-07-15] MEDS ORDERED: TORSEMIDE 10 MG TABLET PO ONE (16:00)
[2019-07-15] MEDS: rOPINIRole 1MG TAB PO SCH (17:28)
[2019-07-15] MEDS ORDERED: OMEPRAZOLE 20 MG CAP PO ONE (18:15)
[2019-07-15] MEDS: QUEtiapine FUMARATE 200 MG TAB PO SCH (20:44)
[2019-07-15] MEDS: MAGNESIUM CHLORIDE 64 MG TABCR (SLO MAG) PO SCH (20:44)
[2019-07-15] MEDS: TAMSULOSIN 0.4 MG CAP PO SCH (20:45)
[2019-07-15] MEDS: DULoxetine 30 MG CAP (CYMBALTA) PO SCH (20:45)
[2019-07-15] MEDS: MONTELUKAST 10 MG TAB PO SCH (20:46)
[2019-07-15] MEDS: amLODIPine 10 MG TAB PO SCH (20:46)
[2019-07-15] MEDS: ONDANSETRON 4 MG TAB (S0181) PO PRN (20:47)
[2019-07-15 22:00] VITALS: BP 150/88
[2019-07-16] MEDS: rOPINIRole 1MG TAB PO SCH (00:32)
[2019-07-16] MEDS: NORCO, ANEXSIA 5/325MG TABLET (HYDROcodone/ACETAMINOPHEN) PO PRN ×3 (00:37→11:32)
[2019-07-16 06:00] VITALS: BP 147/81
[2019-07-16] MEDS: SODIUM CHLORIDE 0.9% INJ 10 ML SYR IV SCH (06:14)
[2019-07-16 06:35] LABS: HEMATOCRIT 28.7 % (36.0-47.0); HEMOGLOBIN 9.3 g/dl (12.0-15.5); MEAN CORPUSCULAR HEMOGLOBIN 29.7 pg (27.0-33.0); MEAN CORPUSCULAR HGB CONC 32.4 g/dl (32.0-36.5); MEAN CORPUSCULAR VOLUME 91.7 fl (80.0-96.0); PLATELET COUNT, AUTOMATED 144 10^3/uL (150-450); RED BLOOD COUNT 3.13 10^6/uL (4.00-5.40); WHITE BLOOD COUNT 5.7 10^3/uL (4.0-10.0)
[2019-07-16 06:57] LABS: CALCIUM LEVEL 8.3 MG/DL (8.5-10.1); CREATININE FOR GFR 2.1 MG/DL (0.55-1.30); GLOMERULAR FILTRATION RATE 26.5 (>51); POTASSIUM SERUM 4.6 MEQ/L (3.5-5.1)
[2019-07-16] MEDS: SYMBICORT 80/4.5MCG INHALER 6GM INH SCH (07:07)
[2019-07-16] MEDS: HumaLOG INSULIN (NovoLOG) PER UNIT SC SCH ×2 (07:30→12:55)
[2019-07-16] MEDS: PREGABALIN 100 MG CAP (LYRICA) PO SCH (08:38)
[2019-07-16] MEDS: LACTOBACILLUS ACIDOPHILUS CAP (BACID) PO SCH ×2 (08:39→12:54)
[2019-07-16] MEDS: APIXABAN 5 MG TAB (ELIQUIS) PO SCH (08:39)
[2019-07-16 08:41] VITALS: BP 119/77
[2019-07-16] MEDS: CARVedilol 12.5 MG TAB PO SCH (08:41)
[2019-07-16] MEDS: LEVEMIR (INSULIN DETEMIR) 1 UNITS/0.01ML SC SCH (08:42)
[2019-07-16] MEDS: NYSTATIN 100,000 UNITS/GM TOPICAL PWD 15 GM TOP SCH (08:42)
--- NOTE | 2019-07-16 11:03 | DS.PDOC ---
Discharge Summary General Date of Admission Jul 11, 2019 at 15:16 Date of Discharge 07/16/2019 Discharge Summary PROCEDURES PERFORMED DURING STAY: [None]. ADMITTING DIAGNOSES / DISCHARGE DIAGNOSES: Compensated Diastolic CHF Worsening renal function on CKD2 with Proteinuria Urinary retention Suspected osteomyelitis of R foot Factor V Leiden mutation HTN IDDM2 PVD s/p L BKA and R foot digit amputations Asthma Hypogammaglobulinemia Temporal lobe seizures Chronic back pain 2/2 Spinal Stenosis (L2 to L5) R TMJ dysfunction Fibromyalgia / Bipolar disorder / OCD / Agoraphobia RLS Psoriasis HSV2 / Hx of Wynn's Palsy Hx of Rectosigmoid ischemic colitis Gastroparesis and GERD DVT prophylaxis COMPLICATIONS/CHIEF COMPLAINT: Sent in by her primary care provider for suspected right foot third digit infection HISTORY OF PRESENT ILLNESS: Patient is a 49-year-old female with a PMHx of Factor V Leiden mutation (on Eliquis), Hx of DVT (on Eliquis), HTN, IDDM2, PVD s/p L BKA and R foot digit amputations, Asthma, CKD2 with Proteinuria, Hypogammaglobulinemia, Temporal lobe seizures, Chronic back pain 2/2 Spinal Stenosis (L2 to L5), Spina bifida occulta, R TMJ dysfunction, Fibromyalgia, Bipolar disorder / OCD / Agoraphobia, Psoriasis, HSV2, Hx of Wynn's Palsy, Urinary retention (does not straight cath), Hx of Rectosigmoid ischemic colitis, Gastroparesis 2/2 DM, GERD. Patient presented to the emergency room at the direction of her primary care provider, Dr. Mireille Quijano. . She was admitted for elevated glucose levels and suspected right foot infection. As an outpatient she has received an MRI of her R foot on 06/21/2019 that suggested osteomyelitis of her third digit. Patient was admitted to the hospitalist service for further evaluation and treatment. HOSPITAL COURSE: Compensated Diastolic CHF - Trace LE edema at RLE - ECHO 09/2018: G1DD, Preserved EF - c/w Torsemide at home dosing - Advised patient to continue with dose regimen of torsemide; however will hold today - Advised follow-up with Dr. Jenni Quijano and Dr. Lindsey within 7 days Worsening renal function on CKD2 with Proteinuria - Cr baseline of approximately 1.5 - Cr has improved - Follows with Nephrology as an outpatient Urinary retention - Patient reports she does not straight cath at home; has had episodes where she has presented to the emergency room for straight catheterization - Patient has been able to urinate on her own over the last 24 hours - c/w Tamsulosin - c/w bladder scans q6h and will adjust straight cath parameters to ensure more frequent catheterizations Suspected osteomyelitis of R foot - Patient presented to the ER at the direction of her PCP, Dr. Quijano for suspected right foot 3rd digit infection - Patient has indicated that she has completed her therapy as an outpatient with doxycycline and linezolid; last dose was roughly 4 days prior to admission - Physical is without any evidence of infection - No significant leukocytosis; lactic acidosis was noted, but has resolved - Blood cultures 07/11: Negative at 72 hours - Vascular US 07/11: No evidence of DVT of right lower extremity - Patient has received an MRI on 06/21/2019 that suggested possibility of osteomyelitis of the right third digit of foot - s/p Levaquin - Dr. Guerra; on consultation; appreciate their input Factor V Leiden mutation - Hx of DVT - c/w Eliquis HTN - c/w Amlodipine and Carvedilol IDDM2 - c/w ISS and Levemir PVD s/p L BKA and R foot digit amputations Asthma - No evidence of exacerbation - c/w Inhaled therapy as ordered Hypogammaglobulinemia Temporal lobe seizures Chronic back pain 2/2 Spinal Stenosis (L2 to L5) - Hx of Spina bifida occulta - c/w Cyclobenzaprine and Pregabalin R TMJ dysfunction Fibromyalgia / Bipolar disorder / OCD / Agoraphobia - c/w Duloxetine and Quetiapine RLS - c/w Ropinirole Psoriasis HSV2 / Hx of Wynn's Palsy Hx of Rectosigmoid ischemic colitis Gastroparesis and GERD - c/w Zofran PRN DVT prophylaxis - c/w full anticoagulation with Eliquis DISCHARGE MEDICATIONS: Please see below. ALLERGIES: Please see below. PHYSICAL EXAMINATION ON DISCHARGE: Vitals (See below) General: Lying in bed, no acute distress, comfortable, AAOx3 HEENT: NC, AT CVS: +S1S2 Lungs: Air entry remains fair bilaterally without evidence of rhonchi, rales or wheezing Abdomen: Obese but remains soft without distention or tenderness Extremities: trace pitting edema at RLE, - Calf tenderness, L BKA with non- pitting edema Skin: Right foot third digit; no drainage / tenderness / erythema / warmth - appears to have dry skin LABORATORY DATA: Please see below. ACTIVITY: [As tolerated]. DISCHARGE PLAN: Follow-up with Dr. Stephen Quijano, Dr. Guerra and Dr. Lindsey within 7 days Remain compliant with treatment plan and medications Return to the ER if you experience any problems DISPOSITION: Home DISCHARGE CONDITION: [Stable]. TIME SPENT ON DISCHARGE: 36 minutes Vital Signs/I&Os Vital Signs Date Time Temp Pulse Resp B/P (MAP) Pulse Ox O2 Delivery O2 Flow Rate FiO2 07/16/19 08:41 78 119/77 07/16/19 07:20 18 07/16/19 06:21 96 07/16/19 06:00 98.0 07/11/19 16:15 Room Air I&O- Last 24 Hours up to 6 AM 07/16/19 05:59 Intake Total 1540 ml Output Total 4150 ml Balance -2610 ml Laboratory Data Labs 24H Laboratory Tests 2 07/15/19 11:46: Bedside Glucose (Misc Panel) 274H 07/15/19 16:29: Bedside Glucose (Misc Panel) 370H 07/15/19 20:42: Bedside Glucose (Misc Panel) 428H 07/16/19 06:14: Nucleated Red Blood Cells % (auto) 0.0, Anion Gap 6L, Glomerular Filtration Rate 26.5L, Blood Urea Nitrogen 68H, Creatinine 2.10H, Sodium Level 135L, Potassium Level 4.6, Chloride Level 105, Carbon Dioxide Level 24, Calcium Level 8.3L CBC/BMP Laboratory Tests 07/16/19 06:14 Red Blood Count 3.13 L, Mean Corpuscular Volume 91.7, Mean Corpuscular Hemoglobin 29.7, Mean Corpuscular Hemoglobin Concent 32.4, Red Cell Distribution Width 13.9, Calcium Level 8.3 L FSBS Laboratory Tests Test 07/15/19 11:46 07/15/19 16:29 07/15/19 20:42 Range/Units Bedside Glucose (Misc Panel) 274 370 428 70-105 MG/DL Microbiology Microbiology 07/11/19 Blood Culture - Preliminary, Resulted No Growth after 72 hours. All specime... 07/11/19 Blood Culture - Preliminary, Resulted No Growth after 72 hours. All specime... Discharge Medications Scheduled Amlodipine Besylate (Amlodipine Besylate) 10 Mg Tab, 10 MG PO QHS, (Reported) Apixaban (Eliquis) 5 Mg Tab, 5 MG PO BID, (Reported) Budesonide/Formoterol (Symbicort 80-4.5 Mcg Inhaler) 6.9 Gm Hfa.aer.ad, 2 PUFF INH BID, (Reported) Carvedilol (Carvedilol) 25 Mg Tab, 25 MG PO BID, (Reported) Cholecalciferol (Vitamin D3) (Vitamin D3) 50,000 Unit Capsule, 50,000 UNIT PO 1XWK, (Reported) TAKES ON TUESDAY Cyclosporine (Restasis) 0.05 % Emu, 1 DROP OU BID, (Reported) USES PRN Dexlansoprazole (Dexilant) 60 Mg Cap, 60 MG PO QHS, (Reported) Duloxetine Hcl (Duloxetine HCl) 60 Mg Cap, 120 MG PO QHS, (Reported) Eszopiclone (Lunesta) 3 Mg Tablet, 3 MG PO QHS, (Reported) Exenatide Microspheres (Bydureon) 2 Mg Inj, 1 INJ SC 1XWK, (Reported) USES ON TUESDAYS Insulin Degludec (Tresiba Flextouch U-200) 200 Unit/Ml Inj, 320 UNIT SC DAILY, (Reported) Insulin Lispro (Humalog Kwikpen U-200) 200 Unit/Ml Inj, 0 SC TID, (Reported) PER SLIDING SCALE Lactobacillus Acidophilus (Probiotic) 1 Each Capsule, 1 CAP PO QHS, (Reported) Magnesium Chloride (Mag64) 64 Mg Tabcr, 64 MG PO QHS, (Reported) Methylphenidate HCl (Methylphenidate ER (LA)) 20 Mg Cpbp.50.50, 20 MG PO DAILY, (Reported) Montelukast Sodium (Montelukast Sodium) 10 Mg Tab, 10 MG PO QHS, (Reported) Nystatin (Nystatin Powder) 15 Gm Powder, 1 APLCT TOP BID, (Reported) apply to affected area(s) UNDER BREASTS Pregabalin (Lyrica) 300 Mg Cap, 300 MG PO BID, (Reported) Quetiapine Fumarate (Seroquel) 300 Mg Tab, 600 MG PO QHS, (Reported) Ranitidine HCl (Ranitidine HCl) 150 Mg Tab, 1 TAB PO QHS, (Reported) Ropinirole HCl (Ropinirole HCl) 2 Mg Tab, 2 MG PO BID, (Reported) TAKES AT 1800 AND 0000 Tamsulosin HCl (Flomax) 0.4 Mg Cap, 0.4 MG PO QHS, (Reported) [Collagen Support] , 1 TAB PO DAILY, (Reported) Scheduled PRN Albuterol Sulf (Albuterol Sulfate) 2.5 Mg/3 Ml Vial.neb, 2.5 MG INH Q4H PRN for SHORTNESS OF BREATH, (Reported) Albuterol Sulfate (Proair Hfa) 8.5 Gm Hfa.aer.ad, 2 PUFF INH Q4H PRN for SHORTNESS OF BREATH, (Reported) Cyclobenzaprine HCl (Cyclobenzaprine HCl) 10 Mg Tab, 10 MG PO TID PRN for MUSCLE SPASMS, (Reported) Epinephrine (Epipen 2-Thomas) 0.3 Mg/0.3 Ml Inj, 0.3 MG SC PRN PRN for ALLERGIC REACTION, (Reported) Hydrocodone/Acetaminophen (Jordan 10-325 Tablet) 1 Tab Tab, 1 TAB PO Q4H PRN for PAIN, (Reported) Torsemide (Torsemide) 10 Mg Tablet, 10 MG PO DAILY PRN for WEIGHT GAIN, (Reported) Allergies Coded Allergies: Latex, Natural Rubber (Verified Allergy, Severe, anaphylaxis, 05/23/19) Penicillins (Verified Allergy, Severe, anaphylaxis, CEPHALOSPORINS [place], 05/23/19) Sulfa (Sulfonamide Antibiotics) (Verified Allergy, Intermediate, hives, 05/23/19) clindamycin (Verified Allergy, Intermediate, Rash/mouth sores/BURNING OF SKIN, 05/23/19) fenofibrate (Verified Allergy, Mild, rash, 05/23/19) SURGICAL ANGIE (Verified Allergy, Unknown, 04/20/19) metformin (Verified Allergy, Unknown, rash, 04/20/19) pineapple (Verified Allergy, Unknown, swollen lips/mouth sores, 04/20/19) FITO CALVERT MD Jul 16, 2019 11:03
== END 2019-07-16 13:41 | disposition home or self-care (01) | DRG 603 ==
LOC: M ED 12:31 → M ED INP 15:16 → M MSPAV 17:42
PROVIDERS: ADMIT Family Medicine; ATTEND Internal Medicine
PROC: 02HV33Z Insertion of Infusion Device into Superior Vena Cava, Percutaneous Approach (ICD-10-PCS; principal; 2019-07-13 13:30)
DX: L03.115 Cellulitis of right lower limb (principal); D68.2 Hereditary deficiency of other clotting factors; D80.1 Nonfamilial hypogammaglobulinemia; J45.909 Unspecified asthma, uncomplicated; I12.9 Hypertensive chronic kidney disease with stage 1 through stage 4 chronic kidney disease, or unspecified chronic kidney disease; K21.9 Gastro-esophageal reflux disease without esophagitis; L40.8 Other psoriasis; M79.7 Fibromyalgia; F31.9 Bipolar disorder, unspecified; F42.9 Obsessive-compulsive disorder, unspecified; Q76.0 Spina bifida occulta; K76.0 Fatty (change of) liver, not elsewhere classified; M26.621 Arthralgia of right temporomandibular joint; G40.909 Epilepsy, unspecified, not intractable, without status epilepticus; B00.9 Herpesviral infection, unspecified; M48.061 Spinal stenosis, lumbar region without neurogenic claudication; E11.43 Type 2 diabetes mellitus with diabetic autonomic (poly)neuropathy; N18.2 Chronic kidney disease, stage 2 (mild); Z88.0 Allergy status to penicillin; Z88.2 Allergy status to sulfonamides; Z88.8 Allergy status to other drugs, medicaments and biological substances; Z89.512 Acquired absence of left leg below knee; Z79.01 Long term (current) use of anticoagulants; Z86.718 Personal history of other venous thrombosis and embolism; E11.51 Type 2 diabetes mellitus with diabetic peripheral angiopathy without gangrene; F40.00 Agoraphobia, unspecified; G25.81 Restless legs syndrome

== ENCOUNTER → 2019-07-11 | Outpatient (REF) | payer OTHER ==
[~2019-07-11] MED LIST changes: -BENA40TA5 PO; +BENA40TA7 PO; +LAMO100T PO; -LAMO100T3 PO; +LAMO200T2 PO; -LAMO200T3 PO; +MAGN400T PO; -MAGN400T3 PO; +MECL-68 PO; -MECL1TAB31 PO; +OMEP40CA2 PO; -OMEP40CA97 PO; +TRAZ-163 PO; -TRAZ-257 PO; +VALA1TAB2 PO; -VALA1TAB64 PO
[2019-07-11 10:45] LABS: BASO % 0.4 % (0.0-1.0); EOS # 0.2 10^3/uL (0.0-0.5); EOS % 2.7 % (0.0-3.0); HEMATOCRIT 31.6 % (36.0-47.0); LYMPH # 1.3 10^3/uL (1.5-5.0); LYMPH % 24.5 % (24.0-44.0); MEAN CORPUSCULAR HEMOGLOBIN 30.2 pg (27.0-33.0); MEAN CORPUSCULAR HGB CONC 34.8 g/dl (32.0-36.5); MEAN CORPUSCULAR VOLUME 86.8 fl (80.0-96.0); MONO # 0.6 10^3/uL (0.0-0.8); MONO % 10.6 % (0.0-5.0); NEUTROPHILS # 3.3 10^3/uL (1.5-8.5); NEUTROPHILS % 60.7 % (36.0-66.0); PLATELET COUNT, AUTOMATED 178 10^3/uL (150-450); RED BLOOD COUNT 3.64 10^6/uL (4.00-5.40); WHITE BLOOD COUNT 5.5 10^3/uL (4.0-10.0)
[2019-07-11 11:03] LABS: C REACTIVE PROTEIN QUANTITATIV 4.95 MG/DL (0.00-0.30); CALCIUM LEVEL 8.6 MG/DL (8.5-10.1); CREATININE FOR GFR 1.68 MG/DL (0.55-1.30); GLOMERULAR FILTRATION RATE 34.3 (>51); POTASSIUM SERUM 4.7 MEQ/L (3.5-5.1)
[2019-07-11 11:14] LABS: ERYTHROCYTE SEDIMENTATION RATE 69 mm/hr (0-30)
== END ==
LOC: M SFHCPLAZ 08:32
PROVIDERS: ATTEND Family Medicine
DX: L03.115 Cellulitis of right lower limb (principal); E11.22 Type 2 diabetes mellitus with diabetic chronic kidney disease

== ENCOUNTER → 2019-08-28 | Outpatient (CLI) | payer OTHER ==
[~2019-08-28] MED LIST changes: -MAGN400T PO; +MAGN400T3 PO; +METH1CAP3 PO; -OMEP40CA2 PO; +OMEP40CA97 PO
--- NOTE | 2019-09-05 00:58 | ECWPNPC ---
PATIENT NAME: JOSS FORD : 1970 GENDER: FEMALE VISIT DATE: 08/28/2019 DISCHARGE DATE: 08/28/19 0000 VISIT LOCKED DATE TIME: PHYSICIAN: RONNIE SIMMONS MD RESOURCE: RONNIE SIMMONS MD REASON FOR APPOINTMENT 1. PRESEDATE HISTORY OF PRESENT ILLNESS HISTORY OF PRESENT ILLNESS: PAIN THE PATIENT DESCRIBES THE PAIN... 49 YEAR OLD FEMALE PATIENT WITH A HISTORY OF CHRONIC LOW BACK AND LEG PAIN. THE PATIENT DESCRIBES THE PAIN BURNING, TENDER, SHARP, STABBING, SHOOTING, AND DAILY WITH A PAIN SCORE OF 1-10/10 DEPENDING ON PHYSICAL ACTIVITY. THE PATIENT STATES HER PAIN BEGINS IN HER LOW BACK AND RADIATES DOWN BOTH LEGS, BUT THE PAIN IS CURRENTLY WORSE IN HER RIGHT LEG. THE PATIENT SAYS SHE HAS BEEN SUFFERING FROM HER PAIN FOR MANY YEARS AND IT IS AFFECTING HER ABILITY TO PERFORM HER DAILY ACTIVITIES SUCH WALKING, CLEANING, AND SHOPPING. THE PATIENT USES A WHEELCHAIR TO MOVE AROUND DUE TO A LEFT LEG AMPUTATION. THE PATIENT SAYS SHE IS USING ELIQUIS DUE TO A HISTORY OF DEVELOPING MULTIPLE BLOOD CLOTS AND END STAGE RENAL DISEASE, HOWEVER SHE HAS STOPPED TAKING IT FOR 6 DAYS IN PREPARATION OF HER UPCOMING LUMBAR EPIDURAL. PATIENT DENIES UNEXPLAINABLE WEIGHT LOSS, FEVER, CHILLS, NEW CHANGES ON HER URINARY OR BOWEL CONTROL. FALL RISK SCREENING: SCREENING :NO FALLS REPORTED IN THE LAST YEAR CURRENT MEDICATIONS TAKING CLOBETASOL PROPIONATE 0.05 % SOLUTION 1 APPLICATION TO AFFECTED AREA EXTERNALLY TWICE A DAY TO SCALP TAKING KETOCONAZOLE 2 % SHAMPOO 5 APPLICATIONS TO SCALP EXTERNALLY ONCE A DAY AND LET SIT FOR 5 MINUTES TAKING CLOBETASOL PROPIONATE 0.05 % OINTMENT 1 APPLICATION TO AFFECTED AREA EXTERNALLY TWICE A DAY TAKING BACTROBAN 2% OINTMENT DIRECTED APPLIED TOPICALLY TWICE A DAY TAKING HIBICLENS 4 % LIQUID DIRECTED EXTERNALLY TWICE A DAY TAKING COLLAGEN ULTRA - CAPSULE 1 CAP ORALLY DAILY TAKING CYCLOBENZAPRINE HCL 10 MG TABLET 1 TAB ORALLY THREE TIMES A DAY PRN MUSCLE SPASMS TAKING RESTASIS 0.05 % EMULSION 1 DROP INTO AFFECTED EYE OPHTHALMIC TWICE A DAY TAKING DEXILANT 60 MG CAPSULE DELAYED RELEASE 1 CAPSULE ORALLY ONCE A DAY TAKING HYDROCODONE-ACETAMINOPHEN 10-325 MG TABLET 1 TABLET NEEDED ORALLY EVERY 4 HRS TAKING LUNESTA 3 MG TABLET 1 TABLET IMMEDIATELY BEFORE BEDTIME ORALLY ONCE A DAY TAKING SYMBICORT 80-4.5 MCG/ACT AEROSOL 2 PUFFS INHALATION TWICE A DAY TAKING PROAIR HFA 108 (90 BASE) MCG/ACT AEROSOL SOLUTION 2 PUFFS NEEDED INHALATION EVERY 6 HRS TAKING METHYLPHENIDATE HCL ER (LA) 20 MG CAPSULE EXTENDED RELEASE 24 HOUR 1 CAPSULE IN THE MORNING ORALLY ONCE A DAY TAKING MAGNESIUM CHLORIDE 64 MG TABLET DELAYED RELEASE 1 TABLET ORALLY DAILY TAKING SINGULAIR 10 MG TABLET 1 TABLET ORALLY ONCE A DAY, NOTES: DR MACIEL TAKING NYSTATIN POWDER [id number] UNIT POWDER POWDER EXTERNALLY TO BILATERAL BERAST AND ABD PANNUS DAILY NEEDED DAILY TAKING ZANTAC 150 MG TABLET 1 TABLET AT BEDTIME ORALLY ONCE A DAY TAKING ROPINIROLE HCL 2 MG TABLET 1 TABLET AT 8 PM AND AT MIDNIGHT ORALLY BID TAKING LYRICA 300 MG CAPSULE 1 CAPSULE ORALLY TWICE A DAY (PAIN CLINIC), NOTES: DR WALL TAKING SEROQUEL 300 MG TABLET 2 TABLET ORALLY BEFORE BEDTIME TAKING WHEELCHAIR - MISCELLANEOUS DIRECTED DX Z89.51, M54.41 TAKING MISC. DEVICES - MISCELLANEOUS DIRECTED REPAIR AND REPLACE PROSTHETIC AND LINERS NEEDED; DX Z89.51 TAKING MAY USE - - WHEEL CHAIR DX CODE Z89.512 _ TAKING CYMBALTA 60 MG CAPSULE DELAYED RELEASE PARTICLES 2 CAPSULES ORALLY DAILY TAKING REFRESH 1 % SOLUTION 1 DROP INTO AFFECTED EYE NEEDED OPHTHALMIC FOUR TIMES DAILY PRN, NOTES: DR QUIJANO TAKING VALACYCLOVIR HCL 1 GM TABLET 1 TABLET ORALLY EVERY 24 HRS TAKING ROSUVASTATIN CALCIUM 10 MG TABLET 1 TABLET ORALLY ONCE A DAY TAKING BETAMETHASONE VALERATE 0.1 % CREAM 1 APPLICATION TO AFFECTED AREA EXTERNALLY ONCE A DAY TAKING CETIRIZINE HCL 10 MG TABLET 1 TABLET ORALLY ONCE A DAY, NOTES: DR MACIEL:ZYRTEC TAKING XOPENEX 1.25 MG/3ML NEBULIZATION SOLUTION 3 ML INHALATION EVERY 6 HOURS NEEDED TAKING BD PEN MINI - MISCELLANEOUS DIRECTED E11.9 QID TAKING PROBIOTIC - TABLET DELAYED RELEASE ORALLY TAKING CHOLECALCIFEROL 05169 UNIT CAPSULE 1 CAPSULE ORALLY ONCE A WEEK ON TUESDAY TAKING EPIPEN 0.3 MG/0.3ML DEVICE 1 INJECTION INJECTION NEEDED FOR ALLERGIC REACTION, NOTES: MISSY TAKING ZOFRAN 8 MG TABLET 1 TAB PRN NAUSEA ORALLY EVERY 12 HOURS TAKING TORSEMIDE 20 MG TABLET 1 TAB ORALLY DAILY TAKING BENAZEPRIL HCL 10 MG TABLET TAKE ONE TABLET BY MOUTH EVERY DAY ORALLY DAILY TAKING TAMSULOSIN HCL 0.4 MG CAPSULE EXTENDED RELEASE ORALLY DAILY HS TAKING HUMALOG KWIKPEN 200 UNIT/ML SOLUTION PEN-INJECTOR DIRECTED SUBCUTANEOUS TID PER SLIDING SCALE TAKING TRESIBA 200 U/ML 320 UNITS SUBCUTANEOUSLY DAILY TAKING BYDUREON 2 MG PEN-INJECTOR 1 INJECTION SUBCUTANEOUS WEEKLY TAKING CARVEDILOL 25 MG TABLET 1 TAB ORALLY BID TAKING ELIQUIS 5 MG TABLET 1 TABLET ORALLY BID NOT-TAKING LACTOBACILLUS - CAPSULE 1 CAP ORALLY DAILY NOT-TAKING AMLODIPINE BESYLATE 10 MG TABLET 1 TABLET ORALLY ONCE A DAY MEDICATION LIST REVIEWED AND RECONCILED WITH THE PATIENT PAST MEDICAL HISTORY CHARCOT 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 NOW S/P AMPUTATION OF LEFT FOOT BILATERAL DIABETIC FOOT ULCERS LUMBAR SPONDYLOSIS, CENTRAL CANAL STENOSIS AT L2-5 SECONDARY TO DISC BULGE LIGAMENTOUS AND FACET HYPERTROPHY LUMBAR FACET ARTHROPATHY, DISC BULGING AT L5-S1 CHRONIC LOW BACK PAIN - FOLLOWED BY PAIN CLINIC DIABETES MELLITUS DX 26 YO, FOLLOWED BY [facility] + FOR RHEUMATOID FACTOR 04/27/12 HEPATOSTEATOSIS US 05/2013 HYPOGAMMAGOBULINEMIA HYPERTENSION ASTHMA BIPOLAR, OCD, AGORAPHOBIC ANXIETY FIBROMYALGIA SPINA BIFIDA OCCULTA B/L TMJ DYSFUNCTION PSORIASIS BULGING DISC THORACIC - LUMBAR ABDOMINAL ADHESIONS TEMPORAL LOBE SEIZURES GERD, HIATAL HERNIA - DR. TAVERAS BRAIN MRI 2013 NL HERPES SIMPLEX II VIA PCR ON LESIONS ON BACK FATTY LIVER + FVL ON CHRONIC VKA GOAL INR2-3 TYPE 2 DIABETES MELLITUS WITH OTHER CIRCULATORY COMPLICATIONS - NEFTALY DIABETIC GASTROPARESIS - DR. TAVERAS HO RECTO-SIGMOID ISCHEMIC COLITIS 03/2018 CONFIRMED BY SIGMOID C BX-NITIN, MSESNTERIC ARTERIOGRAM S INTERVENTION URINARY RETENTION - [facility] UROLOGY MCCOLLUM'S PALSY - NEURO CKD2, PROTEINURIA - NEPHRO ALLERGIES LATEX (FOR ALLERGY USE ONLY): ANAPHYLAXIS - ALLERGY PENICILLIN (FOR ALLERGIES USE ONLY): ANAPHYLAXIS - ALLERGY SULFA (FOR ALLERGY USE ONLY): HIVES - ALLERGY TRICOR: HIVES - ALLERGY GLUCOPHAGE: HIVES - ALLERGY LIPITOR: HIVES - ALLERGY ZOCOR: HIVES - ALLERGY FRESH PINEAPPLE : SWOLLEN LIPS/ SORES IN MOUTH - ALLERGY KEFLEX: HIVES - ALLERGY SURGICAL HISTORY GALLBLADDER 1996 CERVICAL DISCECTOMY C5-6 FUSION 1994 HYSTERECTOMY 2000 LUMPECTOMY RIGHT BREAST 2004 SKIN LESION REMOVED 2004 MULTIPLE DIAGNOSTIC LAPAROSCOPIES VENOUS PORTACATH LEFT CHEST X2 PICC LINE LEFT & RIGHT UPPER ARM X3 APPENDECTOMY 2009 EXCISED ABCESSED WOUNDS X3 DUE TO INFECTION. ULNAR RELEASE RIGHT ARM/HAND CHANI CATH X2 STOOL TRANSPLANT PORT PLACED 12/23/2016 ULNAR RELEASE AND CARPAL TUNNEL RELEASE RIGHT ARM WITH REVISION: DR. RECINOS LEFT CHARCOT FOOT DEBRIDEMENT: DR. LILLY 02/2017 LEFT BKA FOR CHRONIC WOUND/OSTEOMYELITIS 05/2017 EGD- GASTRIC POLYP RESECTED; DR. TAVERAS 06/2018 COLONOSCOPY - SIGMOID ULCER; DR. TAVERAS 06/2018 EGD - NORMAL; DR. TAVERAS 10/2018 FAMILY HISTORY FATHER: 82 YRS, HEART ISSUES, PACEMAKER, PROSTATE CANCER MOTHER: 80 YRS, OSTEOPOROSIS, HTN, STROKE 2X SIBLINGS: ALIVE 49,48 YRS, DIABETES 2 BROTHER(S) , 5 SISTER(S) . BROTHER WITH TYPE I DIABETESSISTER WITH HYPERTENSIONDENIES ANY FH OF MELANOMA OR PANCREATIC CANCERS. SOCIAL HISTORY GENERAL: TOBACCO USE ARE YOU A:CURRENT SMOKER ARE YOU INTERESTED IN QUITTING?THINKING ABOUT QUITTING COUNSELED THE PATIENT ON SMOKING CESSATION, EDUCATION LAKEDSZD20/12/2019 HOW MANY CIGARETTES A DAY DO YOU SMOKE?6-10 HOW SOON AFTER YOU WAKE UP DO YOU SMOKE YOUR FIRST CIGARETTE?AFTER 60 MIN HOW OFTEN DO YOU SMOKE CIGARETTES?EVERY DAY PATIENT COUNSELED ON THE DANGERS OF TOBACCO USE AND URGED TO QUIT:08/28/2019 ADDITIONAL FINDINGS: TOBACCO USERMODERATE CIGARETTE SMOKER (10-19 CIGS/DAY) SMOKING CESSATION INFORMATION GIVEN07/24/2019 HIV / HEP-C SCREENING HIV TEST OFFERED TO PATIENT:NO HEP-C TEST OFFERED TO PATIENT:NO OTHERS AT HOME: SPOUSE. HOUSING: OWNS HOME. 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 DIET: CARBOHYDRATE CONTROLLED. LANGUAGE LANGUAGES SPOKEN:BELARUSIAN DOMESTIC VIOLENCE DO YOU FEEL SAFE IN YOUR ENVIRONMENT?YES BMI CARE GOAL FOLLOW-UP ABOVE NORMAL BMI FOLLOW-UPLIFESTYLE EDUCATION REGARDING DIET RECREATIONAL DRUG USE DENIES. EXERCISE: NO REGULAR EXERCISE. LEARNING BARRIERS / SPECIAL NEEDS CHANGE FROM LAST VISIT?NO BARRIERS TO LEARNING?NO HEARING IMPAIRED?NO VISION IMPAIRED?YES COGNITIVELY IMPAIRED?NO :CORRECTIVE LENSES READINESS TO LEARN?YES LEARNING PREFERENCES?NO LEARNING CAPABILITIES PRESENT?YES EMOTIONAL BARRIERS?NO SPECIAL DEVICES?YES :CANE, WALKER, WHEELCHAIR LEFT LEG PROSTHETIC SENIOR ASIC DESIGN ENGINEER NEEDED?NO PAIN CLINIC PFS, CLERGY, PUBLIC HEALTH REFERRALS HAS THE PATIENT BEEN EDUCATED REGARDING HIS/HER PLAN OF CARE?YES HAS THE PATIENT BEEN EDUCATED REGARDING PAIN, THE RISK FOR PAIN, THE IMPORTANCE OF EFFECTIVE PAIN MANAGEMENT, AND THE PAIN ASSESSMENT PROCESS?YES LATEX QUESTIONNAIRE LATEX ALLERGY : HAVE YOU EVER DEVELOPED ANY TYPE OF REACTION AFTER HANDLING LATEX PRODUCTS SUCH RUBBER GLOVES, CONDOMS, DIAPHRAGMS, BALLOONS, SOCKS, OR UNDERWEAR?YES - PLEASE INDICATE :RUBBER GLOVES, CONDOMS, BALLOONS LATEX ALLERGY : HAVE YOU EVER DEVELOPED ANY TYPE OF REACTION DURING OR AFTER DENTAL APPOINTMENT, VAGINAL/RECTAL EXAMINATION, SURGICAL PROCEDURE, OR ANY OTHER EXPOSURE?YES - PLEASE INDICATE :VAGINAL EXAM, RECTAL EXAM LATEX RISK : HAVE YOU EVER HAD ANY DIFFICULTY BREATHING OR HIVES AFTER EATING OR HANDLING ANY FRUITS, OR VEGETABLES; SUCH KIWI, BANANAS, STONE FRUITS, OR CHESTNUTSNO LATEX RISK : DO YOU HAVE A PREVIOUS PERSONAL HISTORY OF MORE THAN NINE SURGERIES, SPINA BIFIDA, OR REPEATED CATHERIZATIONS? YES - PLEASE INDICATE : > 9 SURGERIES LATEX RISK : ARE YOU FREQUENTLY EXPOSED TO LATEX PRODUCTS IN YOUR OCCUPATION?NO DATE ASKED : 02/05/2019 CAFFEINE CAFFEINE USE?NO ADVANCE DIRECTIVE ADVANCE DIRECTIVE DISCUSSED WITH PATIENT:YES PT HAS HEALTH CARE PROXY, JAYASHREE FORD [phone] VOODOO [id number] NONE MARITAL STATUS: . ALCOHOL SCREENING POINTS: 0, INTERPRETATION: NEGATIVE. 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 SEXUAL HX HAD SEX IN THE LAST 12 MONTHS (VAGINAL, ORAL, OR ANAL)?YES WITHMEN ONLY PREVENTION STRATEGIES DISCUSSED:CONDOMS USE PROTECTION?NO HAVE YOU EVER HAD AN STD?NO REVIEWED WITH PATIENT 08/28/19 [id number] JS. HOSPITALIZATION/MAJOR DIAGNOSTIC PROCEDURE SEPSIS, L FOOT ULCER, SUSPECTED COLITIS 08/23/2014 DVT RLL 09/06/2014 SEPTIC SHOCK SECONDARY TO MULTIPLE SKIN ULCERS 10/22/2014 LOW BLOOD SUGERS AND INFECTIONS 11/11/2014 RLL CELLULITUS AND OSTEOMYELITIS 01/06/2015 HYPOTENSION, SYNCOPE 02/21/2015 DIABETIC FOOT ULCER OSTEO 04/30/15 STAPH HOMINIS LINE SEPSIS MSSA CHRONIC OSTEOMELYTIS FOOT 05/15/15 WOUND INFECTION 06/2015 SEPSIS 06/2015 SEPSIS 07/2015 ADMITTED FOR PORT INFECTION 11/2015 C-DIFF 12/2015 LEFT FOOT R/O OSTEOMYELITIS. 05/27/2016 HYPERGLYCEMIA IN AN UNCONTROLLED TYPE I DIABETIC, R SIDED FLANK PAIN, CKD, HYPONATREMIA SECONDARY TO HYPERGLYCEMIA, ANXIETY, DEPRESSION, HYPERTENSION, ASTHMA, HX OF DVT, UTI 08/30-09/03/2016 CELLULITIS LEFT FOOT 01/13/17-01/19/17 CELLULITIS OF THE RIGHT LOWER FOOT, MILD ACUTE RENAL FAILURE 04/12/17-04/14/17 KIDNEY INJURY 10/05 HYPERGYYCEMIA, HYOERTENSION, HYPERKALEMIA, ACUTE KIDNEY INJURY 10/25/2017 DEHYDRATION AND ALTERED MENTAL STATUS 02/14/2018 ACUTE SIGMO-RECTAL ISCHEMIC COLITIS C SEVERE SEPSIS/MELODY I/TME/BLOODY STOOLS/ELEVATED BHG BUT PH 7.6 (WBC ON ADMISSION 17K, PEAK CR 1.7), CONFIRMED BY SIGMOID C BX-REINDL, -BCX X 2, -GI PANEL -UCX, MESENTERIC ARTERIOGRAM DONE BY SRAVAN Hernandez INTERVENTION//CT HE 03/20- LETICIA LOCKETT 10/08/2018 3 DAYS RENAL FAILURE 05/22/2019 RIGHT FOOT CELLULITIS 06/2019 REVIEW OF SYSTEMS REVIEWED BY: PROVIDER: RONNIE SIMMONS MD . CONSTITUTIONAL: ANY CHANGE IN YOUR MEDICAL CONDITION? NO . CHILLS NO . FEVER NO . INFECTION: DO YOU HAVE NEW INFECTIONS? NO . DO YOU HAVE HISTORY OF MRSA? YES, HISTORY OF MRSA IN LEFT FOOT - FOOT HAS BEEN AMPUTATED SINCE . MUSCULOSKELETAL: ANY NEW PATTERNS OF PAIN OR NUMBNESS? NO . GASTROENTEROLOGY: ANY NEW CHANGE IN BOWEL CONTROL? NO . GENITOURINARY: ANY NEW CHANGE IN BLADDER CONTROL? NO . IS THERE A CHANCE YOU COULD BE ? NO . HEMATOLOGY/LYMPH: DO YOU TAKE ANY BLOOD THINNERS? (FOR EXAMPLE- COUMADIN, PLAVIX, AGGRENOX, PLATEL, PRADAXA, OR XARELTO) YES, ELIQUIS . WHEN WAS YOUR LAST DOSE? DATE: 08/22/19TIME: EVENING . NEUROLOGY: HAVE YOU FALLEN IN THE PAST 12 MONTHS? YES, STATES PRIOR TO LAST VISIT, DISCUSSED AT PREVIOUS VISIT . ANY NEW EXTREMITY NUMBNESS OR WEAKNESS? YES, NUMBNESS/WEAKNESS TO BILATERAL HANDS, RIGHT ARM, AND BILATERAL LEGS . CARDIOLOGY: DO YOU HAVE A PACEMAKER OR DEFIBRILLATOR? NO . RESPIRATORY: HAVE YOU BEEN SICK IN THE PAST WEEK? NO . FEVER NO . FLU LIKE SYMPTOMS? NO . COUGH NO . INTEGUMENTARY: DO YOU HAVE ANY RASHES OR OPEN SORES? NO . ALLERGIC/IMMUNO: ARE YOU ALLERGIC TO IV DYE? NO . ANY NEW ALLERGIES? NO . PSYCHIATRIC: DO YOU HAVE THOUGHTS OF HURTING YOURSELF OR SOMEONE ELSE? NO . ARE YOU ABUSED, NEGLECTED, OR IN AN UNSAFE ENVIRONMENT? NO . ENDOCRINOLOGY: ARE YOU DIABETIC? YES . OTHER: DO YOU NEED ANY PRESCRIPTIONS? NO . IF YES, PLEASE LIST: ____ . ANY NEW PROBLEMS WITH YOUR MEDICATIONS? NO . WHEN DID YOU LAST EAT? ____ . WHEN DID YOU LAST DRINK? ____ . WHAT DID YOU LAST DRINK? ____ . NAME OF PERSON DRIVING YOU HOME? ____ . DO YOU HAVE ANY OTHER QUESTIONS OR CONCERNS NO . VITAL SIGNS WT 262 LBS, HT 70 IN, BMI 37.59 INDEX, BP 135/67 MM HG, HR 94 /MIN, RR 18 /MIN, TEMP 98.0 F, OXYGEN SAT % 99%, SAFE IN ENV? (Y/N) YES, NA INITIALS AW 1458, REVIEWED BY: JS. EXAMINATION GENERAL EXAMINATION: PATIENT IS ALERT O X 3 AND COOPERATIVE. LUNGS CLEAR, TO AUSCULTATION. HEART: NO MURMURS OR GALLOPS; FACIAL CRANIAL NERVES ARE GROSSLY NORMAL. GOOD SYMMETRY OF FACIAL MUSCLE MOVEMENT. NORMAL VISUAL HUGO. ANTALGIC WALK. TENDERNESS OVER THE PARASPINAL MUSCLE GROUP OF THE LOW BACK. WEAKNESS IN RIGHT LEG. STRAIGHT LEG RAISE OF THE RIGHT LEG IS POSITIVE AT 35 DEGREES FOR RADICULOPATHY. MRI OF THE LUMBAR SPINE DONE ON 02/20/2019 SHOWS MODERATE CENTRAL CANAL STENOSIS AT L3-L4 AND THICKENING OF THE LIGAMENTUM FLAVUM. ASSESSMENTS INTERVERTEBRAL DISC DISORDERS WITH RADICULOPATHY, LUMBAR REGION - M51.16 (PRIMARY) TREATMENT INTERVERTEBRAL DISC DISORDERS WITH RADICULOPATHY, LUMBAR REGION CLINICAL NOTES: WE DISCUSSED SEVERAL ISSUES WITH MS. FORD'S PAIN MANAGEMENT CASE. DUE TO THE LUMBAR RADICULOPATHY, I WOULD LIKE TO MOVE FORWARD WITH A LUMBAR EPIDURAL STEROID INJECTION AT THIS TIME. THE PATIENT WOULD LIKE TO MOVE FORWARD WITH IV SEDATION DUE TO DISCOMFORT, PAIN, AND ANXIETY ASSOCIATED WITH THE PROCEDURE. THE PATIENT IS AWARE OF THE RISK OF STOPPING ELIQUIS WITH RENAL DISEASE AND THE RISK OF BLEEDING IN THE SPINE. WE DISCUSSED THE BENEFITS, RISKS, AND ALTERNATIVES OF THE INJECTION AND THE PATIENT WOULD LIKE TO PROCEED. I AM LOOKING FOR LONG LASTING PAIN RELIEF FROM THIS INJECTION FOR THE PATIENT. THE PATIENT WILL FOLLOW UP IN SEVERAL WEEKS AFTER HER INJECTION. INSTRUCTIONS WERE GIVEN, QUESTIONS WERE ANSWERED, PATIENT REPORTS UNDERSTANDING AND AGREES WITH THE PLAN. I, KIRSTEN JO, DOCUMENTED THE ABOVE INFORMATION ACTING A SCRIBE FOR DR. SIMMONS. I HAVE REVIEWED THE ABOVE DOCUMENT, WRITTEN BY KIRSTEN THOMAS AND I VERIFY THAT IT IS ACCURATE. . PREVENTIVE MEDICINE PAIN CLINIC TEACHING: PROCEDURE TEACHING REVIEWED INFORMATION ON LUMBAR EPIDURAL STEROID INJECTION PROCEDURE WITH PATIENT. ALSO REVIEWED PRE-PROCEDURE INSTRUCTIONS. PATIENT VERBALIZED AN UNDERSTANDING. PATRICIA PERKINS Jonathon 08/28/2019 5:00:43 PM > . PROCEDURE CODES FA211 ESTABILISHED PATIENT [facility] CHARGE [id number] CURRENT MEDS W/DOSAGES DOCUMENTED [id number] PAIN ASSESS POS TOOL F/U PLAN DOC DISPOSITION & COMMUNICATION ELECTRONICALLY SIGNED BY RONNIE SIMMONS MD, MD ON 09/04/2019 AT 03:19 PM EST DISCLAIMER : THIS IS A VISIT SUMMARY EXTRACTED FROM THE [employer] CHART. IT IS NOT A COPY OF THE [employer] PROGRESS NOTE. MTDD
== END ==
LOC: M PAIN 14:45
PROVIDERS: ATTEND Anesthesiology
DX: M51.16 Intervertebral disc disorders with radiculopathy, lumbar region (principal); E11.22 Type 2 diabetes mellitus with diabetic chronic kidney disease; I12.9 Hypertensive chronic kidney disease with stage 1 through stage 4 chronic kidney disease, or unspecified chronic kidney disease; L40.9 Psoriasis, unspecified; K76.0 Fatty (change of) liver, not elsewhere classified; M47.816 Spondylosis without myelopathy or radiculopathy, lumbar region; N18.2 Chronic kidney disease, stage 2 (mild); F17.210 Nicotine dependence, cigarettes, uncomplicated; Z79.01 Long term (current) use of anticoagulants; Z79.4 Long term (current) use of insulin; Z79.899 Other long term (current) drug therapy; Z89.432 Acquired absence of left foot; Z88.0 Allergy status to penicillin; Z88.8 Allergy status to other drugs, medicaments and biological substances; Z91.018 Allergy to other foods; Z91.040 Latex allergy status; Z88.1 Allergy status to other antibiotic agents

== ENCOUNTER → 2019-08-30 | Outpatient (CLI) | payer OTHER ==
[~2019-08-30] MED LIST changes: +ISOVUE-M 300 61% 15ML VIAL (Q9967) As Ordered ONE; +LIDOCAINE 1% SDV INJ 30 ML VIAL As Ordered ONE; +MIDAZOLAM INJ 2 MG/2 ML VIAL (J2250) As Ordered ONE; +fentaNYL 100 MCG/2 ML INJECTION (J3010) As Ordered ONE; +methylPREDNISolone SUSP 40 MG/ML (DEPO-medrol) VIAL (J1030) As Ordered ONE
--- NOTE | 2019-08-30 16:02 | REP ---
Partial lumbar spine single view. History: Injection procedure for pain. 53 seconds of fluoroscopy time is reported. Findings: A single last image hold fluoroscopically obtained spot radiograph of the lumbar spine documents needle position and contrast injection associated with injection procedure. Electronically Signed by Obdulio Ruiz MD 08/30/2019 03:53 P
--- NOTE | 2019-09-07 00:58 | ECWPNPC ---
PATIENT NAME: JOSS FORD : 1970 GENDER: FEMALE VISIT DATE: 08/30/2019 DISCHARGE DATE: 08/30/191540 VISIT LOCKED DATE TIME: PHYSICIAN: RONNIE SIMMONS MD RESOURCE: RONNIE SIMMONS MD REASON FOR APPOINTMENT 1. LESI W/ IV SEDATION HISTORY OF PRESENT ILLNESS HISTORY OF PRESENT ILLNESS: PAIN THE PATIENT DESCRIBES THE PAIN... FALL RISK SCREENING: SCREENING :NO FALLS REPORTED IN THE LAST YEAR CURRENT MEDICATIONS TAKING CLOBETASOL PROPIONATE 0.05 % SOLUTION 1 APPLICATION TO AFFECTED AREA EXTERNALLY TWICE A DAY TO SCALP, NOTES: 08/30/19699 TAKING KETOCONAZOLE 2 % SHAMPOO 5 APPLICATIONS TO SCALP EXTERNALLY ONCE A DAY AND LET SIT FOR 5 MINUTES, NOTES: 08/30/19699 TAKING CLOBETASOL PROPIONATE 0.05 % OINTMENT 1 APPLICATION TO AFFECTED AREA EXTERNALLY TWICE A DAY, NOTES: 08/30/19699 TAKING BACTROBAN 2% OINTMENT DIRECTED APPLIED TOPICALLY TWICE A DAY, NOTES: 08/29/192029 TAKING HIBICLENS 4 % LIQUID DIRECTED EXTERNALLY TWICE A DAY, NOTES: 08/30/19699 TAKING COLLAGEN ULTRA - CAPSULE 1 CAP ORALLY DAILY, NOTES: 08/29/192029 TAKING CYCLOBENZAPRINE HCL 10 MG TABLET 1 TAB ORALLY THREE TIMES A DAY PRN MUSCLE SPASMS, NOTES: 08/28/19 PM TAKING RESTASIS 0.05 % EMULSION 1 DROP INTO AFFECTED EYE OPHTHALMIC TWICE A DAY, NOTES: 08/30/19699 TAKING DEXILANT 60 MG CAPSULE DELAYED RELEASE 1 CAPSULE ORALLY ONCE A DAY, NOTES: 08/29/192029 TAKING HYDROCODONE-ACETAMINOPHEN 10-325 MG TABLET 1 TABLET NEEDED ORALLY EVERY 4 HRS, NOTES: 08/28/19 AM TAKING LUNESTA 3 MG TABLET 1 TABLET IMMEDIATELY BEFORE BEDTIME ORALLY ONCE A DAY, NOTES: 08/29/192029 TAKING SYMBICORT 80-4.5 MCG/ACT AEROSOL 2 PUFFS INHALATION TWICE A DAY, NOTES: 08/30/19699 TAKING PROAIR HFA 108 (90 BASE) MCG/ACT AEROSOL SOLUTION 2 PUFFS NEEDED INHALATION EVERY 6 HRS, NOTES: HAS NOT USED TAKING METHYLPHENIDATE HCL ER (LA) 20 MG CAPSULE EXTENDED RELEASE 24 HOUR 1 CAPSULE IN THE MORNING ORALLY ONCE A DAY, NOTES: TUESDAY TAKING MAGNESIUM CHLORIDE 64 MG TABLET DELAYED RELEASE 1 TABLET ORALLY DAILY, NOTES: 08/29/192029 TAKING SINGULAIR 10 MG TABLET 1 TABLET ORALLY ONCE A DAY, NOTES: 08/29/192029 TAKING NYSTATIN POWDER [id number] UNIT POWDER POWDER EXTERNALLY TO BILATERAL BERAST AND ABD PANNUS DAILY NEEDED DAILY, NOTES: PRN TAKING ZANTAC 150 MG TABLET 1 TABLET AT BEDTIME ORALLY ONCE A DAY, NOTES: 08/29/192029 TAKING ROPINIROLE HCL 2 MG TABLET 1 TABLET AT 8 PM AND AT MIDNIGHT ORALLY BID, NOTES: 08/29/192029 TAKING LYRICA 300 MG CAPSULE 1 CAPSULE ORALLY TWICE A DAY (PAIN CLINIC), NOTES: 08/29/192029 TAKING SEROQUEL 300 MG TABLET 2 TABLET ORALLY BEFORE BEDTIME, NOTES: 08/29/192029 TAKING WHEELCHAIR - MISCELLANEOUS DIRECTED DX Z89.51, M54.41 TAKING MISC. DEVICES - MISCELLANEOUS DIRECTED REPAIR AND REPLACE PROSTHETIC AND LINERS NEEDED; DX Z89.51 TAKING MAY USE - - WHEEL CHAIR DX CODE Z89.512 _ TAKING CYMBALTA 60 MG CAPSULE DELAYED RELEASE PARTICLES 2 CAPSULES ORALLY DAILY, NOTES: 08/29/192029 TAKING REFRESH 1 % SOLUTION 1 DROP INTO AFFECTED EYE NEEDED OPHTHALMIC FOUR TIMES DAILY PRN, NOTES: 08/29/19 TAKING VALACYCLOVIR HCL 1 GM TABLET 1 TABLET ORALLY EVERY 24 HRS, NOTES: 08/29/192029 TAKING ROSUVASTATIN CALCIUM 10 MG TABLET 1 TABLET ORALLY ONCE A DAY, NOTES: 08/29/192029 TAKING BETAMETHASONE VALERATE 0.1 % CREAM 1 APPLICATION TO AFFECTED AREA EXTERNALLY ONCE A DAY, NOTES: NONE RECENTLY TAKING CETIRIZINE HCL 10 MG TABLET 1 TABLET ORALLY ONCE A DAY, NOTES: 08/29/192029 TAKING XOPENEX 1.25 MG/3ML NEBULIZATION SOLUTION 3 ML INHALATION EVERY 6 HOURS NEEDED, NOTES: PRN TAKING BD PEN MINI - MISCELLANEOUS DIRECTED E11.9 QID TAKING PROBIOTIC - TABLET DELAYED RELEASE ORALLY , NOTES: 08/29/192029 TAKING CHOLECALCIFEROL 47285 UNIT CAPSULE 1 CAPSULE ORALLY ONCE A WEEK ON TUESDAY, NOTES: 08/28/19 AM TAKING EPIPEN 0.3 MG/0.3ML DEVICE 1 INJECTION INJECTION NEEDED FOR ALLERGIC REACTION, NOTES: MISSY TAKING ZOFRAN 8 MG TABLET 1 TAB PRN NAUSEA ORALLY EVERY 12 HOURS, NOTES: 6 DAYS AGO TAKING TORSEMIDE 20 MG TABLET 1 TAB ORALLY DAILY, NOTES: 08/29/192029 TAKING BENAZEPRIL HCL 10 MG TABLET TAKE ONE TABLET BY MOUTH EVERY DAY ORALLY DAILY, NOTES: 08/29/192029 TAKING TAMSULOSIN HCL 0.4 MG CAPSULE EXTENDED RELEASE ORALLY DAILY HS, NOTES: 08/29/192029 TAKING HUMALOG KWIKPEN 200 UNIT/ML SOLUTION PEN-INJECTOR DIRECTED SUBCUTANEOUS TID PER SLIDING SCALE, NOTES: 08/29/19 20 UNITGS 2230 TAKING TRESIBA 200 U/ML 320 UNITS SUBCUTANEOUSLY DAILY, NOTES: 08/29 160 UNTS 830PM TAKING BYDUREON 2 MG PEN-INJECTOR 1 INJECTION SUBCUTANEOUS WEEKLY, NOTES: TUESDAY TAKING CARVEDILOL 25 MG TABLET 1 TAB ORALLY BID, NOTES: 08/29 0830PM TAKING ELIQUIS 5 MG TABLET 1 TABLET ORALLY BID, NOTES: LAST DOSE 08/22 HELD FOR PROC NOT-TAKING LACTOBACILLUS - CAPSULE 1 CAP ORALLY DAILY NOT-TAKING AMLODIPINE BESYLATE 10 MG TABLET 1 TABLET ORALLY ONCE A DAY MEDICATION LIST REVIEWED AND RECONCILED WITH THE PATIENT PAST MEDICAL HISTORY CHARCOT 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 NOW S/P AMPUTATION OF LEFT FOOT BILATERAL DIABETIC FOOT ULCERS LUMBAR SPONDYLOSIS, CENTRAL CANAL STENOSIS AT L2-5 SECONDARY TO DISC BULGE LIGAMENTOUS AND FACET HYPERTROPHY LUMBAR FACET ARTHROPATHY, DISC BULGING AT L5-S1 CHRONIC LOW BACK PAIN - FOLLOWED BY PAIN CLINIC DIABETES MELLITUS DX 26 YO, FOLLOWED BY [facility] + FOR RHEUMATOID FACTOR 04/27/12 HEPATOSTEATOSIS US 05/2013 HYPOGAMMAGOBULINEMIA HYPERTENSION ASTHMA BIPOLAR, OCD, AGORAPHOBIC ANXIETY FIBROMYALGIA SPINA BIFIDA OCCULTA B/L TMJ DYSFUNCTION PSORIASIS BULGING DISC THORACIC - LUMBAR ABDOMINAL ADHESIONS TEMPORAL LOBE SEIZURES GERD, HIATAL HERNIA - DR. TAVERAS BRAIN MRI 2013 NL HERPES SIMPLEX II VIA PCR ON LESIONS ON BACK FATTY LIVER + FVL ON CHRONIC VKA GOAL INR2-3 TYPE 2 DIABETES MELLITUS WITH OTHER CIRCULATORY COMPLICATIONS - NEFTALY DIABETIC GASTROPARESIS - DR. TAVERAS HO RECTO-SIGMOID ISCHEMIC COLITIS 03/2018 CONFIRMED BY SIGMOID C BX-NITIN, MSESNTERIC ARTERIOGRAM S INTERVENTION URINARY RETENTION - [facility] UROLOGY MCCOLLUM'S PALSY - NEURO CKD2, PROTEINURIA - NEPHRO ALLERGIES LATEX (FOR ALLERGY USE ONLY): ANAPHYLAXIS - ALLERGY PENICILLIN (FOR ALLERGIES USE ONLY): ANAPHYLAXIS - ALLERGY SULFA (FOR ALLERGY USE ONLY): HIVES - ALLERGY TRICOR: HIVES - ALLERGY GLUCOPHAGE: HIVES - ALLERGY LIPITOR: HIVES - ALLERGY ZOCOR: HIVES - ALLERGY FRESH PINEAPPLE : SWOLLEN LIPS/ SORES IN MOUTH - ALLERGY KEFLEX: HIVES - ALLERGY SURGICAL HISTORY GALLBLADDER 1996 CERVICAL DISCECTOMY C5-6 FUSION 1994 HYSTERECTOMY 2001 LUMPECTOMY RIGHT BREAST 2004 SKIN LESION REMOVED 2004 MULTIPLE DIAGNOSTIC LAPAROSCOPIES VENOUS PORTACATH LEFT CHEST X2 PICC LINE LEFT & RIGHT UPPER ARM X3 APPENDECTOMY 2009 EXCISED ABCESSED WOUNDS X3 DUE TO INFECTION. ULNAR RELEASE RIGHT ARM/HAND CHANI CATH X2 STOOL TRANSPLANT PORT PLACED 12/23/2016 ULNAR RELEASE AND CARPAL TUNNEL RELEASE RIGHT ARM WITH REVISION: DR. RECINOS LEFT CHARCOT FOOT DEBRIDEMENT: DR. LILLY 02/2017 LEFT BKA FOR CHRONIC WOUND/OSTEOMYELITIS 05/2017 EGD- GASTRIC POLYP RESECTED; DR. TAVERAS 06/2018 COLONOSCOPY - SIGMOID ULCER; DR. TAVERAS 06/2018 EGD - NORMAL; DR. TAVERAS 10/2018 FAMILY HISTORY FATHER: 82 YRS, HEART ISSUES, PACEMAKER, PROSTATE CANCER MOTHER: 80 YRS, OSTEOPOROSIS, HTN, STROKE 2X SIBLINGS: ALIVE 49,48 YRS, DIABETES 2 BROTHER(S) , 5 SISTER(S) . BROTHER WITH TYPE I DIABETESSISTER WITH HYPERTENSIONDENIES ANY FH OF MELANOMA OR PANCREATIC CANCERS. SOCIAL HISTORY GENERAL: TOBACCO USE ARE YOU A:CURRENT SMOKER ARE YOU INTERESTED IN QUITTING?THINKING ABOUT QUITTING COUNSELED THE PATIENT ON SMOKING CESSATION, EDUCATION OVERAYKB75/12/2019 HOW MANY CIGARETTES A DAY DO YOU SMOKE?6-10 HOW SOON AFTER YOU WAKE UP DO YOU SMOKE YOUR FIRST CIGARETTE?AFTER 60 MIN HOW OFTEN DO YOU SMOKE CIGARETTES?EVERY DAY PATIENT COUNSELED ON THE DANGERS OF TOBACCO USE AND URGED TO QUIT:08/30/2019 ADDITIONAL FINDINGS: TOBACCO USERMODERATE CIGARETTE SMOKER (10-19 CIGS/DAY) SMOKING CESSATION INFORMATION GIVEN07/24/2019 HIV / HEP-C SCREENING HIV TEST OFFERED TO PATIENT:NO HEP-C TEST OFFERED TO PATIENT:NO OTHERS AT HOME: SPOUSE. HOUSING: OWNS HOME. 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 DIET: CARBOHYDRATE CONTROLLED. LANGUAGE LANGUAGES SPOKEN:TRINIDADIAN DOMESTIC VIOLENCE DO YOU FEEL SAFE IN YOUR ENVIRONMENT?YES BMI CARE GOAL FOLLOW-UP ABOVE NORMAL BMI FOLLOW-UPLIFESTYLE EDUCATION REGARDING DIET RECREATIONAL DRUG USE DENIES. EXERCISE: NO REGULAR EXERCISE. LEARNING BARRIERS / SPECIAL NEEDS CHANGE FROM LAST VISIT?NO BARRIERS TO LEARNING?NO HEARING IMPAIRED?NO VISION IMPAIRED?YES COGNITIVELY IMPAIRED?NO :CORRECTIVE LENSES READINESS TO LEARN?YES LEARNING PREFERENCES?NO LEARNING CAPABILITIES PRESENT?YES EMOTIONAL BARRIERS?NO SPECIAL DEVICES?YES :CANE, WALKER, WHEELCHAIR LEFT LEG PROSTHETIC ACCOUNT MAINTENANCE REPRESENTATIVE NEEDED?NO PAIN CLINIC PFS, CLERGY, PUBLIC HEALTH REFERRALS HAS THE PATIENT BEEN EDUCATED REGARDING HIS/HER PLAN OF CARE?YES EDUCATED PT REGARDING PROCEDURE, PT ACKNOWLEDGED UNDERSTANDING. HAS THE PATIENT BEEN EDUCATED REGARDING PAIN, THE RISK FOR PAIN, THE IMPORTANCE OF EFFECTIVE PAIN MANAGEMENT, AND THE PAIN ASSESSMENT PROCESS?YES LATEX QUESTIONNAIRE LATEX ALLERGY : HAVE YOU EVER DEVELOPED ANY TYPE OF REACTION AFTER HANDLING LATEX PRODUCTS SUCH RUBBER GLOVES, CONDOMS, DIAPHRAGMS, BALLOONS, SOCKS, OR UNDERWEAR?YES - PLEASE INDICATE :RUBBER GLOVES, CONDOMS, BALLOONS LATEX ALLERGY : HAVE YOU EVER DEVELOPED ANY TYPE OF REACTION DURING OR AFTER DENTAL APPOINTMENT, VAGINAL/RECTAL EXAMINATION, SURGICAL PROCEDURE, OR ANY OTHER EXPOSURE?YES - PLEASE INDICATE :VAGINAL EXAM, RECTAL EXAM LATEX RISK : HAVE YOU EVER HAD ANY DIFFICULTY BREATHING OR HIVES AFTER EATING OR HANDLING ANY FRUITS, OR VEGETABLES; SUCH KIWI, BANANAS, STONE FRUITS, OR CHESTNUTSNO LATEX RISK : DO YOU HAVE A PREVIOUS PERSONAL HISTORY OF MORE THAN NINE SURGERIES, SPINA BIFIDA, OR REPEATED CATHERIZATIONS? YES - PLEASE INDICATE : > 9 SURGERIES LATEX RISK : ARE YOU FREQUENTLY EXPOSED TO LATEX PRODUCTS IN YOUR OCCUPATION?NO DATE ASKED : 02/05/2019 CAFFEINE CAFFEINE USE?NO ADVANCE DIRECTIVE ADVANCE DIRECTIVE DISCUSSED WITH PATIENT:YES PT HAS HEALTH CARE PROXY, JAYASHREE FORD [phone] CONGREGATIONAL [id number] NONE MARITAL STATUS: . ALCOHOL SCREENING POINTS: 0, INTERPRETATION: NEGATIVE. 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 SEXUAL HX HAD SEX IN THE LAST 12 MONTHS (VAGINAL, ORAL, OR ANAL)?YES WITHMEN ONLY PREVENTION STRATEGIES DISCUSSED:CONDOMS USE PROTECTION?NO HAVE YOU EVER HAD AN STD?NO REVIEWED WITH PATIENT 08/28/19 1531 ADILAI. HOSPITALIZATION/MAJOR DIAGNOSTIC PROCEDURE SEPSIS, L FOOT ULCER, SUSPECTED COLITIS 08/23/2014 DVT RLL 09/06/2014 SEPTIC SHOCK SECONDARY TO MULTIPLE SKIN ULCERS 10/22/2014 LOW BLOOD SUGERS AND INFECTIONS 11/11/2014 RLL CELLULITUS AND OSTEOMYELITIS 01/06/2015 HYPOTENSION, SYNCOPE 02/21/2015 DIABETIC FOOT ULCER OSTEO 04/30/15 STAPH HOMINIS LINE SEPSIS MSSA CHRONIC OSTEOMELYTIS FOOT 05/15/15 WOUND INFECTION 06/2015 SEPSIS 06/2015 SEPSIS 07/2015 ADMITTED FOR PORT INFECTION 11/2015 C-DIFF 12/2015 LEFT FOOT R/O OSTEOMYELITIS. 05/27/2016 HYPERGLYCEMIA IN AN UNCONTROLLED TYPE I DIABETIC, R SIDED FLANK PAIN, CKD, HYPONATREMIA SECONDARY TO HYPERGLYCEMIA, ANXIETY, DEPRESSION, HYPERTENSION, ASTHMA, HX OF DVT, UTI 08/30-09/03/2016 CELLULITIS LEFT FOOT 01/13/17-01/19/17 CELLULITIS OF THE RIGHT LOWER FOOT, MILD ACUTE RENAL FAILURE 04/12/17-04/14/17 KIDNEY INJURY 10/05 HYPERGYYCEMIA, HYOERTENSION, HYPERKALEMIA, ACUTE KIDNEY INJURY 10/25/2017 DEHYDRATION AND ALTERED MENTAL STATUS 02/14/2018 ACUTE SIGMO-RECTAL ISCHEMIC COLITIS C SEVERE SEPSIS/MELODY I/TME/BLOODY STOOLS/ELEVATED BHG BUT PH 7.6 (WBC ON ADMISSION 17K, PEAK CR 1.7), CONFIRMED BY SIGMOID C BX-REINDL, -BCX X 2, -GI PANEL -UCX, MESENTERIC ARTERIOGRAM DONE BY SRAVAN Hernandez INTERVENTION//CT HE 03/20- LETICIA LOCKETT 10/08/2018 3 DAYS RENAL FAILURE 05/22/2019 RIGHT FOOT CELLULITIS 06/2019 REVIEW OF SYSTEMS REVIEWED BY: PROVIDER: . CONSTITUTIONAL: ANY CHANGE IN YOUR MEDICAL CONDITION? NO . CHILLS NO . FEVER NO . INFECTION: DO YOU HAVE NEW INFECTIONS? NO . DO YOU HAVE HISTORY OF MRSA? YES, HX OF MRSA 2 YEARS AGO IN LEFT FOOT. PT NOW HAS BLEOW KNEE AMPUTATION SINCE MRSA. . MUSCULOSKELETAL: ANY NEW PATTERNS OF PAIN OR NUMBNESS? NO . GASTROENTEROLOGY: ANY NEW CHANGE IN BOWEL CONTROL? NO . GENITOURINARY: ANY NEW CHANGE IN BLADDER CONTROL? NO . IS THERE A CHANCE YOU COULD BE ? NO . HEMATOLOGY/LYMPH: DO YOU TAKE ANY BLOOD THINNERS? (FOR EXAMPLE- COUMADIN, PLAVIX, AGGRENOX, PLATEL, PRADAXA, OR XARELTO) ELIQUMIGUEL ÁNGEL 08/22/19 1255 . WHEN WAS YOUR LAST DOSE? DATE: TIME: . NEUROLOGY: HAVE YOU FALLEN IN THE PAST 12 MONTHS? YES, PT STATES THAT SHE WAS AT HOME WHEN SHE FELL, NO INJURY FROM FALL, NO REPORT TO ED . ANY NEW EXTREMITY NUMBNESS OR WEAKNESS? NO . CARDIOLOGY: DO YOU HAVE A PACEMAKER OR DEFIBRILLATOR? NO . RESPIRATORY: HAVE YOU BEEN SICK IN THE PAST WEEK? NO . FEVER NO . FLU LIKE SYMPTOMS? NO . COUGH NO . INTEGUMENTARY: DO YOU HAVE ANY RASHES OR OPEN SORES? NO . ALLERGIC/IMMUNO: ARE YOU ALLERGIC TO IV DYE? NO . ANY NEW ALLERGIES? NO . PSYCHIATRIC: DO YOU HAVE THOUGHTS OF HURTING YOURSELF OR SOMEONE ELSE? NO . ARE YOU ABUSED, NEGLECTED, OR IN AN UNSAFE ENVIRONMENT? NO . ENDOCRINOLOGY: ARE YOU DIABETIC? 210 . OTHER: DO YOU NEED ANY PRESCRIPTIONS? NO . IF YES, PLEASE LIST: ____ . ANY NEW PROBLEMS WITH YOUR MEDICATIONS? NO . WHEN DID YOU LAST EAT? 08/29 8PM . WHEN DID YOU LAST DRINK? 08/29 0630AM . WHAT DID YOU LAST DRINK? JUICE APPLE . NAME OF PERSON DRIVING YOU HOME? JAYASHREE . DO YOU HAVE ANY OTHER QUESTIONS OR CONCERNS JUN 2019 . VITAL SIGNS WT 262 LBS, HT 70 IN, BMI 37.59 INDEX, BP 117/61 MM HG, HR 94 /MIN, RR 18 /MIN, TEMP 96.0 F, OXYGEN SAT % 98%, BLOOD GLUCOSE LEVEL 210, SAFE IN ENV? (Y/N) Y, NA INITIALS AW 1304, REVIEWED BY: [place]. ASSESSMENTS INTERVERTEBRAL DISC DISORDERS WITH RADICULOPATHY, LUMBOSACRAL REGION - M51.17 (PRIMARY) INTERVERTEBRAL DISC DISORDERS WITH RADICULOPATHY, LUMBAR REGION - M51.16 TREATMENT INTERVERTEBRAL DISC DISORDERS WITH RADICULOPATHY, LUMBAR REGION [facility] FLUORO GUIDE SPINE INJECTION (PAIN)[id number] PROCEDURES PRE PROCEDURE DIAGNOSIS LUMBOSACRAL DISC DISORDER WITH RADICULOPATHY POST PROCEDURE DIAGNOSIS LUMBOSACRAL DISC DISORDER WITH RADICULOPATHY PROCEDURE LUMBAR EPIDURAL STEROID INJECTION UNDER FLUOROSCOPIC GUIDANCE SURGEON DR. RONNIE SIMMONS DEBLOCKER NONE ANESTHESIA LOCAL WITH IV SEDATION PRE PROCEDURE NOTE THE PATIENT HAS A HISTORY OF CHRONIC LOW BACK PAIN. I EVALUATED THE PATIENT AND REVIEWED THE CHART. I WENT OVER THE RISKS, ALTERNATIVES, AND BENEFITS ASSOCIATED WITH THIS PROCEDURE. THE PATIENT WOULD LIKE TO PROCEED AND GIVES CONSENT TO PERFORM THE PROCEDURE. THE PATIENT WOULD LIKE TO MOVE FORWARD WITH IV SEDATION DUE TO DISCOMFORT, PAIN, AND ANXIETY ASSOCIATED WITH THE PROCEDURE. THE PATIENT DENIES UNEXPLAINABLE WEIGHT LOSS, FEVER, CHILLS, OR NEW CHANGES IN URINARY OR BOWEL CONTROL. DESCRIPTION OF PROCEDURE THE PATIENT WAS BROUGHT TO THE PROCEDURE ROOM AND PLACED IN THE PRONE POSITION. THE LUMBOSACRAL AREA WAS CLEANED WITH BETADINE SOLUTION AND DRAPED ASEPTICALLY. THE PROCEDURE WAS DONE UNDER STERILE CONDITIONS. I CHECKED LATERALITY AND THE LEVEL WHERE THE PROCEDURE WAS GOING TO BE PERFORMED WITH THE PATIENT AND THE SUPPORTING STAFF AT THE MOMENT OF THE TIME OUT IN THE PROCEDURE ROOM. UNDER FLUOROSCOPIC GUIDANCE, THE TARGET POINT WAS SELECTED AT THE INTERLAMINAR LEVEL OF L4-L5. LIDOCAINE WAS USED TO NUMB THE SKIN AND THE SUBCUTANEOUS TISSUE BELOW IT. EPIDURAL TUOHY NEEDLE, 17-GAUGE, WAS ADVANCED UNDER FLUOROSCOPIC GUIDANCE AND FOLLOWING PATIENT FEEDBACK. I WAS NOT ABLE TO REACH THE EPIDURAL SPACE DUE TO THE BONE STRUCTURE. I THEN SELECT THE LEVEL OF L5-S1. EPIDURAL TUOHY NEEDLE, 17-GAUGE, WAS ADVANCED UNDER FLUOROSCOPIC GUIDANCE AND FOLLOWING PATIENT FEEDBACK UNTIL THE EPIDURAL SPACE WAS REACHED, 7 CM DEEP INTO THE SKIN BY THE LOSS OF RESISTANCE TECHNIQUE. ISOVUE M DYE 30%, 0.25 ML, WAS INJECTED SHOWING ADEQUATE SPREAD OF THE DYE. THEN, A SOLUTION OF 3 ML OF NORMAL SALINE WITH DEPO-MEDROL 60 MG WAS INJECTED SLOWLY FOLLOWING PATIENT FEEDBACK. THERE WAS NO EVIDENCE OF BLOOD, PARESTHESIA OR CEREBROSPINAL FLUID DURING THE PROCEDURE. THE PATIENT WAS SENT TO THE RECOVERY ROOM. THE PATIENT WAS MOVING THE EXTREMITIES AND DOING WELL. THERE WAS NO COMPLICATION DURING THE PROCEDURE. PATIENT RECEIVED VERSED 1 MG AND FENTANYL 100 MCG IV DIVIDED DOSES. FACE TO FACE TIME WAS 34 MINUTES. FLUOROSCOPY TIME WAS 52 SECONDS. POST PROCEDURE NOTE I AM LOOKING FOR LONG LASTING PAIN RELIEF WITH THIS INTERVENTION. THE PATIENT WILL BE SEEN IN A FOLLOW UP IN THE NEXT FEW WEEKS. INSTRUCTIONS WERE GIVEN, QUESTIONS WERE ANSWERED, AND THE PATIENT EXPRESSED UNDERSTANDING AND AGREES WITH THE PLAN. I, KIRSTEN JO, DOCUMENTED THE ABOVE INFORMATION ACTING A SCRIBE FOR DR. SIMMONS. I HAVE REVIEWED THE ABOVE DOCUMENT, WRITTEN BY KIRSTEN JO SCRIBSilvina AND I VERIFY THAT IT IS ACCURATE. PROCEDURE CODES 01121 LUMBAR/SACRAL W/ IMAGING 6045F RADXPS IN END [id number] PXD 88831 MOD SED SAME PHYS/QHP 5/>YRS 35475 MOD SED SAME PHYS/QHP EA DISPOSITION & COMMUNICATION FOLLOW UP 2 WEEKS ELECTRONICALLY SIGNED BY RONNIE SIMMONS MD, MD ON 09/06/2019 AT 02:07 PM EST DISCLAIMER : THIS IS A VISIT SUMMARY EXTRACTED FROM THE [employer] CHART. IT IS NOT A COPY OF THE [employer] PROGRESS NOTE. LAURIE
== END ==
LOC: M PAIN 13:00
PROVIDERS: ATTEND Anesthesiology
DX: M51.17 Intervertebral disc disorders with radiculopathy, lumbosacral region (principal); M51.16 Intervertebral disc disorders with radiculopathy, lumbar region
CPT/HCPCS: 62323; 99152; 99153; J1030; J2250; J3010; Q9967

== ENCOUNTER → 2019-09-28 | Outpatient (CLI) | payer OTHER ==
[~2019-09-28] MED LIST changes: -ISOVUE-M 300 61% 15ML VIAL (Q9967) As Ordered ONE; -LAMO100T PO; +LAMO100T3 PO; -LAMO200T2 PO; +LAMO200T3 PO; -LIDOCAINE 1% SDV INJ 30 ML VIAL As Ordered ONE; -MIDAZOLAM INJ 2 MG/2 ML VIAL (J2250) As Ordered ONE; -VALA1TAB2 PO; +VALA1TAB64 PO; -fentaNYL 100 MCG/2 ML INJECTION (J3010) As Ordered ONE; -methylPREDNISolone SUSP 40 MG/ML (DEPO-medrol) VIAL (J1030) As Ordered ONE
--- NOTE | 2019-10-02 01:17 | ECWPNPC ---
PATIENT NAME: JOSS FORD : 1970 GENDER: FEMALE VISIT DATE: 09/28/2019 DISCHARGE DATE: 09/28/19 1412 VISIT LOCKED DATE TIME: PHYSICIAN: DEBRA PEDRO RESOURCE: DEBRA PEDRO REASON FOR APPOINTMENT 1. POST PROC HISTORY OF PRESENT ILLNESS HISTORY OF PRESENT ILLNESS: PAIN THE PATIENT DESCRIBES THE PAIN... 49 YEAR OLD FEMALE IN FOR POST LESI FOLLOW UP. SHE RATES HER PAIN PRE PROCEDURE AT AN 8/10 AND POST PROCEDURE AT A 4/10 X 1 WEEK. SHE RATES HER PAIN CURRENTLY AT AN 8/10 AND DESCRIBES IT ACHING, BURNING, SHARP, STABBING, SHOOTING, AND CONTINUOUS. FALL RISK SCREENING: SCREENING :NO FALLS REPORTED IN THE LAST YEAR CURRENT MEDICATIONS TAKING CLOBETASOL PROPIONATE 0.05 % SOLUTION 1 APPLICATION TO AFFECTED AREA EXTERNALLY TWICE A DAY TO SCALP TAKING KETOCONAZOLE 2 % SHAMPOO 5 APPLICATIONS TO SCALP EXTERNALLY ONCE A DAY AND LET SIT FOR 5 MINUTES TAKING BACTROBAN 2% OINTMENT DIRECTED APPLIED TOPICALLY TWICE A DAY TAKING HIBICLENS 4 % LIQUID DIRECTED EXTERNALLY TWICE A DAY TAKING COLLAGEN ULTRA - CAPSULE 1 CAP ORALLY DAILY TAKING CYCLOBENZAPRINE HCL 10 MG TABLET 1 TAB ORALLY THREE TIMES A DAY PRN MUSCLE SPASMS TAKING RESTASIS 0.05 % EMULSION 1 DROP INTO AFFECTED EYE OPHTHALMIC TWICE A DAY TAKING DEXILANT 60 MG CAPSULE DELAYED RELEASE 1 CAPSULE ORALLY ONCE A DAY TAKING HYDROCODONE-ACETAMINOPHEN 10-325 MG TABLET 1 TABLET NEEDED ORALLY EVERY 4 HRS TAKING LUNESTA 3 MG TABLET 1 TABLET IMMEDIATELY BEFORE BEDTIME ORALLY ONCE A DAY TAKING SYMBICORT 80-4.5 MCG/ACT AEROSOL 2 PUFFS INHALATION TWICE A DAY TAKING PROAIR HFA 108 (90 BASE) MCG/ACT AEROSOL SOLUTION 2 PUFFS NEEDED INHALATION EVERY 6 HRS TAKING METHYLPHENIDATE HCL ER (LA) 20 MG CAPSULE EXTENDED RELEASE 24 HOUR 1 CAPSULE IN THE MORNING ORALLY ONCE A DAY TAKING MAGNESIUM CHLORIDE 64 MG TABLET DELAYED RELEASE 1 TABLET ORALLY DAILY TAKING SINGULAIR 10 MG TABLET 1 TABLET ORALLY ONCE A DAY TAKING NYSTATIN POWDER [id number] UNIT POWDER POWDER EXTERNALLY TO BILATERAL BERAST AND ABD PANNUS DAILY NEEDED DAILY TAKING ZANTAC 150 MG TABLET 1 TABLET AT BEDTIME ORALLY ONCE A DAY TAKING ROPINIROLE HCL 2 MG TABLET 1 TABLET AT 8 PM AND AT MIDNIGHT ORALLY BID TAKING LYRICA 300 MG CAPSULE 1 CAPSULE ORALLY TWICE A DAY (PAIN CLINIC) TAKING SEROQUEL 300 MG TABLET 2 TABLET ORALLY BEFORE BEDTIME TAKING WHEELCHAIR - MISCELLANEOUS DIRECTED DX Z89.51, M54.41 TAKING MISC. DEVICES - MISCELLANEOUS DIRECTED REPAIR AND REPLACE PROSTHETIC AND LINERS NEEDED; DX Z89.51 TAKING MAY USE - - WHEEL CHAIR DX CODE Z89.512 _ TAKING CYMBALTA 60 MG CAPSULE DELAYED RELEASE PARTICLES 2 CAPSULES ORALLY DAILY TAKING REFRESH 1 % SOLUTION 1 DROP INTO AFFECTED EYE NEEDED OPHTHALMIC FOUR TIMES DAILY PRN TAKING VALACYCLOVIR HCL 1 GM TABLET 1 TABLET ORALLY EVERY 24 HRS TAKING ROSUVASTATIN CALCIUM 10 MG TABLET 1 TABLET ORALLY ONCE A DAY TAKING BETAMETHASONE VALERATE 0.1 % CREAM 1 APPLICATION TO AFFECTED AREA EXTERNALLY ONCE A DAY TAKING CETIRIZINE HCL 10 MG TABLET 1 TABLET ORALLY ONCE A DAY TAKING XOPENEX 1.25 MG/3ML NEBULIZATION SOLUTION 3 ML INHALATION EVERY 6 HOURS NEEDED TAKING BD PEN MINI - MISCELLANEOUS DIRECTED E11.9 QID TAKING PROBIOTIC - TABLET DELAYED RELEASE ORALLY TAKING CHOLECALCIFEROL 74862 UNIT CAPSULE 1 CAPSULE ORALLY ONCE A WEEK ON TUESDAY TAKING EPIPEN 0.3 MG/0.3ML DEVICE 1 INJECTION INJECTION NEEDED FOR ALLERGIC REACTION TAKING ZOFRAN 8 MG TABLET 1 TAB PRN NAUSEA ORALLY EVERY 12 HOURS TAKING TORSEMIDE 20 MG TABLET 1 TAB ORALLY DAILY TAKING BENAZEPRIL HCL 10 MG TABLET TAKE ONE TABLET BY MOUTH EVERY DAY ORALLY DAILY TAKING TAMSULOSIN HCL 0.4 MG CAPSULE EXTENDED RELEASE ORALLY DAILY HS TAKING HUMALOG KWIKPEN 200 UNIT/ML SOLUTION PEN-INJECTOR DIRECTED SUBCUTANEOUS TID PER SLIDING SCALE TAKING BYDUREON 2 MG PEN-INJECTOR 1 INJECTION SUBCUTANEOUS WEEKLY TAKING CARVEDILOL 25 MG TABLET 1 TAB ORALLY BID TAKING ELIQUIS 5 MG TABLET 1 TABLET ORALLY BID TAKING TRESIBA 200 U/ML 320 UNITS SUBCUTANEOUSLY DAILY NOT-TAKING LACTOBACILLUS - CAPSULE 1 CAP ORALLY DAILY NOT-TAKING AMLODIPINE BESYLATE 10 MG TABLET 1 TABLET ORALLY ONCE A DAY DISCONTINUED CLOBETASOL PROPIONATE 0.05 % OINTMENT 1 APPLICATION TO AFFECTED AREA EXTERNALLY TWICE A DAY MEDICATION LIST REVIEWED AND RECONCILED WITH THE PATIENT PAST MEDICAL HISTORY CHARCOT 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 NOW S/P AMPUTATION OF LEFT FOOT BILATERAL DIABETIC FOOT ULCERS LUMBAR SPONDYLOSIS, CENTRAL CANAL STENOSIS AT L2-5 SECONDARY TO DISC BULGE LIGAMENTOUS AND FACET HYPERTROPHY LUMBAR FACET ARTHROPATHY, DISC BULGING AT L5-S1 CHRONIC LOW BACK PAIN - FOLLOWED BY PAIN CLINIC DIABETES MELLITUS DX 26 YO, FOLLOWED BY [facility] + FOR RHEUMATOID FACTOR 04/27/12 HEPATOSTEATOSIS US 05/2013 HYPOGAMMAGOBULINEMIA HYPERTENSION ASTHMA BIPOLAR, OCD, AGORAPHOBIC ANXIETY FIBROMYALGIA SPINA BIFIDA OCCULTA B/L TMJ DYSFUNCTION PSORIASIS BULGING DISC THORACIC - LUMBAR ABDOMINAL ADHESIONS TEMPORAL LOBE SEIZURES GERD, HIATAL HERNIA - DR. TAVERAS BRAIN MRI 2013 NL HERPES SIMPLEX II VIA PCR ON LESIONS ON BACK FATTY LIVER + FVL ON CHRONIC VKA GOAL INR2-3 TYPE 2 DIABETES MELLITUS WITH OTHER CIRCULATORY COMPLICATIONS - NEFTALY DIABETIC GASTROPARESIS - DR. TAVERAS HO RECTO-SIGMOID ISCHEMIC COLITIS 03/2018 CONFIRMED BY SIGMOID C BX-NITIN, MSESNTERIC ARTERIOGRAM S INTERVENTION URINARY RETENTION - [facility] UROLOGY MCCOLLUM'S PALSY - NEURO CKD2, PROTEINURIA - NEPHRO ALLERGIES LATEX (FOR ALLERGY USE ONLY): ANAPHYLAXIS - ALLERGY PENICILLIN (FOR ALLERGIES USE ONLY): ANAPHYLAXIS - ALLERGY SULFA (FOR ALLERGY USE ONLY): HIVES - ALLERGY TRICOR: HIVES - ALLERGY GLUCOPHAGE: HIVES - ALLERGY LIPITOR: HIVES - ALLERGY ZOCOR: HIVES - ALLERGY FRESH PINEAPPLE : SWOLLEN LIPS/ SORES IN MOUTH - ALLERGY KEFLEX: HIVES - ALLERGY SURGICAL HISTORY GALLBLADDER 1996 CERVICAL DISCECTOMY C5-6 FUSION 1994 HYSTERECTOMY 2000 LUMPECTOMY RIGHT BREAST 2004 SKIN LESION REMOVED 2004 MULTIPLE DIAGNOSTIC LAPAROSCOPIES VENOUS PORTACATH LEFT CHEST X2 PICC LINE LEFT & RIGHT UPPER ARM X3 APPENDECTOMY 2009 EXCISED ABCESSED WOUNDS X3 DUE TO INFECTION. ULNAR RELEASE RIGHT ARM/HAND CHANI CATH X2 STOOL TRANSPLANT PORT PLACED 12/23/2016 ULNAR RELEASE AND CARPAL TUNNEL RELEASE RIGHT ARM WITH REVISION: DR. RECINOS LEFT CHARCOT FOOT DEBRIDEMENT: DR. LILLY 02/2017 LEFT BKA FOR CHRONIC WOUND/OSTEOMYELITIS 05/2017 EGD- GASTRIC POLYP RESECTED; DR. TAVERAS 06/2018 COLONOSCOPY - SIGMOID ULCER; DR. TAVERAS 06/2018 EGD - NORMAL; DR. TAVERAS 10/2018 FAMILY HISTORY FATHER: 82 YRS, HEART ISSUES, PACEMAKER, PROSTATE CANCER MOTHER: 80 YRS, OSTEOPOROSIS, HTN, STROKE 2X SIBLINGS: ALIVE 49,48 YRS, DIABETES 2 BROTHER(S) , 5 SISTER(S) . BROTHER WITH TYPE I DIABETESSISTER WITH HYPERTENSIONDENIES ANY FH OF MELANOMA OR PANCREATIC CANCERS. SOCIAL HISTORY GENERAL: TOBACCO USE ARE YOU A:CURRENT SMOKER ARE YOU INTERESTED IN QUITTING?THINKING ABOUT QUITTING COUNSELED THE PATIENT ON SMOKING CESSATION, EDUCATION [id number]/13/2019 HOW MANY CIGARETTES A DAY DO YOU SMOKE?6-10 HOW SOON AFTER YOU WAKE UP DO YOU SMOKE YOUR FIRST CIGARETTE?AFTER 60 MIN HOW OFTEN DO YOU SMOKE CIGARETTES?EVERY DAY PATIENT COUNSELED ON THE DANGERS OF TOBACCO USE AND URGED TO QUIT:08/30/2019 ADDITIONAL FINDINGS: TOBACCO USERMODERATE CIGARETTE SMOKER (10-19 CIGS/DAY) SMOKING CESSATION INFORMATION GIVEN07/24/2019 HIV / HEP-C SCREENING HIV TEST OFFERED TO PATIENT:NO HEP-C TEST OFFERED TO PATIENT:NO OTHERS AT HOME: SPOUSE. HOUSING: OWNS HOME. 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 DIET: CARBOHYDRATE CONTROLLED. LANGUAGE LANGUAGES SPOKEN:[place] RICAN DOMESTIC VIOLENCE DO YOU FEEL SAFE IN YOUR ENVIRONMENT?YES BMI CARE GOAL FOLLOW-UP ABOVE NORMAL BMI FOLLOW-UPLIFESTYLE EDUCATION REGARDING DIET RECREATIONAL DRUG USE DENIES. EXERCISE: NO REGULAR EXERCISE. 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 HAS THE PATIENT BEEN EDUCATED REGARDING PAIN, THE RISK FOR PAIN, THE IMPORTANCE OF EFFECTIVE PAIN MANAGEMENT, AND THE PAIN ASSESSMENT PROCESS?YES LATEX QUESTIONNAIRE LATEX ALLERGY : HAVE YOU EVER DEVELOPED ANY TYPE OF REACTION AFTER HANDLING LATEX PRODUCTS SUCH RUBBER GLOVES, CONDOMS, DIAPHRAGMS, BALLOONS, SOCKS, OR UNDERWEAR?YES LATEX ALLERGY : HAVE YOU EVER DEVELOPED ANY TYPE OF REACTION DURING OR AFTER DENTAL APPOINTMENT, VAGINAL/RECTAL EXAMINATION, SURGICAL PROCEDURE, OR ANY OTHER EXPOSURE?YES - PLEASE INDICATE :RUBBER GLOVES, CONDOMS, BALLOONS - PLEASE INDICATE :VAGINAL EXAM, RECTAL EXAM DATE ASKED : 02/05/2019 LATEX RISK : HAVE YOU EVER HAD ANY DIFFICULTY BREATHING OR HIVES AFTER EATING OR HANDLING ANY FRUITS, OR VEGETABLES; SUCH KIWI, BANANAS, STONE FRUITS, OR CHESTNUTSNO LATEX RISK : DO YOU HAVE A PREVIOUS PERSONAL HISTORY OF MORE THAN NINE SURGERIES, SPINA BIFIDA, OR REPEATED CATHERIZATIONS? YES - PLEASE INDICATE : > 9 SURGERIES LATEX RISK : ARE YOU FREQUENTLY EXPOSED TO LATEX PRODUCTS IN YOUR OCCUPATION?NO CAFFEINE CAFFEINE USE?NO ADVANCE DIRECTIVE ADVANCE DIRECTIVE DISCUSSED WITH PATIENT:YES PT HAS HEALTH CARE PROXY, JAYASHREE FORD [phone] HINDUISM [id number] NONE MARITAL STATUS: . ALCOHOL SCREENING POINTS: 0, INTERPRETATION: NEGATIVE. 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 SEXUAL HX HAD SEX IN THE LAST 12 MONTHS (VAGINAL, ORAL, OR ANAL)?YES WITHMEN ONLY PREVENTION STRATEGIES DISCUSSED:CONDOMS USE PROTECTION?NO HAVE YOU EVER HAD AN STD?NO REVIEWED WITH PATIENT 08/28/19 [id number] JS. HOSPITALIZATION/MAJOR DIAGNOSTIC PROCEDURE SEPSIS, L FOOT ULCER, SUSPECTED COLITIS 08/23/2014 DVT RLL 09/06/2014 SEPTIC SHOCK SECONDARY TO MULTIPLE SKIN ULCERS 10/22/2014 LOW BLOOD SUGERS AND INFECTIONS 11/11/2014 RLL CELLULITUS AND OSTEOMYELITIS 01/06/2015 HYPOTENSION, SYNCOPE 02/21/2015 DIABETIC FOOT ULCER OSTEO 04/30/15 STAPH HOMINIS LINE SEPSIS MSSA CHRONIC OSTEOMELYTIS FOOT 05/15/15 WOUND INFECTION 06/2015 SEPSIS 06/2015 SEPSIS 07/2015 ADMITTED FOR PORT INFECTION 11/2015 C-DIFF 12/2015 LEFT FOOT R/O OSTEOMYELITIS. 05/27/2016 HYPERGLYCEMIA IN AN UNCONTROLLED TYPE I DIABETIC, R SIDED FLANK PAIN, CKD, HYPONATREMIA SECONDARY TO HYPERGLYCEMIA, ANXIETY, DEPRESSION, HYPERTENSION, ASTHMA, HX OF DVT, UTI 08/30-09/03/2016 CELLULITIS LEFT FOOT 01/13/17-01/19/17 CELLULITIS OF THE RIGHT LOWER FOOT, MILD ACUTE RENAL FAILURE 04/12/17-04/14/17 KIDNEY INJURY 10/05 HYPERGYYCEMIA, HYOERTENSION, HYPERKALEMIA, ACUTE KIDNEY INJURY 10/25/2017 DEHYDRATION AND ALTERED MENTAL STATUS 02/14/2018 ACUTE SIGMO-RECTAL ISCHEMIC COLITIS C SEVERE SEPSIS/MELODY I/TME/BLOODY STOOLS/ELEVATED BHG BUT PH 7.6 (WBC ON ADMISSION 17K, PEAK CR 1.7), CONFIRMED BY SIGMOID C BX-REINDL, -BCX X 2, -GI PANEL -UCX, MESENTERIC ARTERIOGRAM DONE BY SRAVAN Hernandez INTERVENTION//CT HE 03/20- LETICIA LOCKETT 10/08/2018 3 DAYS RENAL FAILURE 05/22/2019 RIGHT FOOT CELLULITIS 06/2019 REVIEW OF SYSTEMS REVIEWED BY: PROVIDER: SALO SAUCEDA . CONSTITUTIONAL: ANY CHANGE IN YOUR MEDICAL CONDITION? NO . CHILLS NO . FEVER NO . INFECTION: DO YOU HAVE NEW INFECTIONS? YES, URI, HAS APPT W PCP TUESDAY . DO YOU HAVE HISTORY OF MRSA? YES . MUSCULOSKELETAL: ANY NEW PATTERNS OF PAIN OR NUMBNESS? YES, HAD LUMBAR EPIDURAL 08/30/19 HELPED X1 WEEK, THEN PAIN WENT TO BASELINE . GASTROENTEROLOGY: ANY NEW CHANGE IN BOWEL CONTROL? NO . GENITOURINARY: ANY NEW CHANGE IN BLADDER CONTROL? NO . IS THERE A CHANCE YOU COULD BE ? NO . HEMATOLOGY/LYMPH: DO YOU TAKE ANY BLOOD THINNERS? (FOR EXAMPLE- COUMADIN, PLAVIX, AGGRENOX, PLATEL, PRADAXA, OR XARELTO) YES, ELLIQUIS . WHEN WAS YOUR LAST DOSE? DATE: TIME: . NEUROLOGY: HAVE YOU FALLEN IN THE PAST 12 MONTHS? YES, PRIOR TO LAST VISIT . ANY NEW EXTREMITY NUMBNESS OR WEAKNESS? YES, BILAT ARM WEAKNESS AND PAIN, RIGHT HIP PAIN . CARDIOLOGY: DO YOU HAVE A PACEMAKER OR DEFIBRILLATOR? NO . RESPIRATORY: HAVE YOU BEEN SICK IN THE PAST WEEK? YES . FEVER NO . FLU LIKE SYMPTOMS? NO . COUGH YES, GREEN MUCOUS . INTEGUMENTARY: DO YOU HAVE ANY RASHES OR OPEN SORES? NO . ALLERGIC/IMMUNO: ARE YOU ALLERGIC TO IV DYE? NO . ANY NEW ALLERGIES? NO . PSYCHIATRIC: DO YOU HAVE THOUGHTS OF HURTING YOURSELF OR SOMEONE ELSE? NO . ARE YOU ABUSED, NEGLECTED, OR IN AN UNSAFE ENVIRONMENT? NO . ENDOCRINOLOGY: ARE YOU DIABETIC? YES . OTHER: DO YOU NEED ANY PRESCRIPTIONS? NO . IF YES, PLEASE LIST: ____ . ANY NEW PROBLEMS WITH YOUR MEDICATIONS? NO . WHEN DID YOU LAST EAT? ____ . WHEN DID YOU LAST DRINK? ____ . WHAT DID YOU LAST DRINK? ____ . NAME OF PERSON DRIVING YOU HOME? ____ . DO YOU HAVE ANY OTHER QUESTIONS OR CONCERNS NO . VITAL SIGNS WT 257.8 LBS, HT 70 IN, BMI 36.99 INDEX, BP 201/95 MM HG, REPEAT BP 178/82 MM HG, HR 84 /MIN, RR 20 /MIN, TEMP 97.2 F, OXYGEN SAT % 98%, NA INITIALS SC 13:41, REVIEWED BY: RAJI IS AWARE OF PT'S BP.B/P RECHECK MANUAL. EM. EXAMINATION GENERAL EXAMINATION: GENERALNO ACUTE DISTRESS, WELL NOURISHED AND HYDRATED. PSYCHAPPROPRIATE MOOD AND AFFECT . LUNGS:CLEAR TO AUSCULTATION BILATERALLY, NO WHEEZES, RHONCHI, RALES. HEART:NO MURMURS, REGULAR RATE AND RHYTHM. BACK:POINT TENDER ALONG LUMBAR SPINE, SURROUNDING SKIN SHOWS NO ERYTHEMA, ECCHYMOSIS, INCREASED WARMTH, AND/OR SKIN ERUPTIONS NOTED. POSITIVE MODIFIED SLR ON THE RIGHT SIDE . MUSCULOSKELETAL:NOTABLE WEAKNESS OF THE RIGHT LOWER EXTREMITY . ASSESSMENTS INTERVERTEBRAL DISC DISORDERS WITH RADICULOPATHY, LUMBAR REGION - M51.16 (PRIMARY) TREATMENT INTERVERTEBRAL DISC DISORDERS WITH RADICULOPATHY, LUMBAR REGION NOTES: LESI WITH CATHETER L4-L5 IV SEDATION. CLINICAL NOTES: 49-YEAR-OLD FEMALE IN FOR POST LESI FOLLOW-UP. GIVEN PRESENTING SYMPTOMS AND RESULTS OF PHYSICAL EXAMINATION RECOMMENDED LESI WITH CATHETER AND POST PROCEDURAL FOLLOW-UP. PATIENT HAS EXPRESSED UNDERSTANDING OF AND WAS IN AGREEMENT WITH TREATMENT PLAN. GIVEN TIME TO ASK QUESTIONS AND EXPRESS CONCERNS. PROCEDURE CODES FA211 ESTABILISHED [facility] CHARGE DISPOSITION & COMMUNICATION FOLLOW UP POST PROCEDURE (REASON: LESI L4-L5 WITH CATHETER AND IV SEDATION) ELECTRONICALLY SIGNED BY YARON BAZZI ON 10/01/2019 AT 09:14 AM EST DISCLAIMER : THIS IS A VISIT SUMMARY EXTRACTED FROM THE [employer] CHART. IT IS NOT A COPY OF THE [employer] PROGRESS NOTE. LAURIE
== END ==
LOC: M PAIN 13:30
PROVIDERS: ATTEND Family Medicine
DX: M51.16 Intervertebral disc disorders with radiculopathy, lumbar region (principal); E11.9 Type 2 diabetes mellitus without complications; I10 Essential (primary) hypertension; J45.909 Unspecified asthma, uncomplicated; Z86.59 Personal history of other mental and behavioral disorders; M79.7 Fibromyalgia; F17.210 Nicotine dependence, cigarettes, uncomplicated; Z88.0 Allergy status to penicillin; Z88.1 Allergy status to other antibiotic agents; Z88.2 Allergy status to sulfonamides; Z88.8 Allergy status to other drugs, medicaments and biological substances; Z91.018 Allergy to other foods; Z91.040 Latex allergy status; Z86.14 Personal history of Methicillin resistant Staphylococcus aureus infection; Z79.4 Long term (current) use of insulin; Z79.01 Long term (current) use of anticoagulants; Z79.899 Other long term (current) drug therapy

== ENCOUNTER → 2019-10-01 | Outpatient (REF) | payer OTHER ==
[2019-10-01 10:40] LABS: BASO % 0.6 % (0.0-1.0); EOS # 0.1 10^3/uL (0.0-0.5); EOS % 2.1 % (0.0-3.0); HEMATOCRIT 33.8 % (36.0-47.0); HEMOGLOBIN 11.6 g/dl (12.0-15.5); LYMPH # 2.2 10^3/uL (1.5-5.0); LYMPH % 32.5 % (24.0-44.0); MEAN CORPUSCULAR HEMOGLOBIN 28.6 pg (27.0-33.0); MEAN CORPUSCULAR HGB CONC 34.3 g/dl (32.0-36.5); MEAN CORPUSCULAR VOLUME 83.3 fl (80.0-96.0); MONO # 0.5 10^3/uL (0.0-0.8); MONO % 7.4 % (0.0-5.0); NEUTROPHILS # 3.7 10^3/uL (1.5-8.5); NEUTROPHILS % 56.3 % (36.0-66.0); PLATELET COUNT, AUTOMATED 230 10^3/uL (150-450); RED BLOOD COUNT 4.06 10^6/uL (4.00-5.40); WHITE BLOOD COUNT 6.6 10^3/uL (4.0-10.0)
[2019-10-01 11:24] LABS: CALCIUM LEVEL 8.2 MG/DL (8.5-10.1); CREATININE FOR GFR 1.21 MG/DL (0.55-1.30); GLOMERULAR FILTRATION RATE 50.1 (>51)
== END ==
LOC: M SFHCPLAZ 09:16
PROVIDERS: ATTEND Family Medicine
DX: R05 Cough (principal); E11.22 Type 2 diabetes mellitus with diabetic chronic kidney disease; N18.3 Chronic kidney disease, stage 3 (moderate)

== ENCOUNTER → 2019-10-12 | Outpatient (CLI) | payer OTHER ==
[2019-10-12 13:50] LABS: BLOOD UREA NITROGEN 14 MG/DL (7-18); CALCIUM LEVEL 8.8 MG/DL (8.5-10.1); CARBON DIOXIDE LEVEL 24 MEQ/L (21-32); CHLORIDE LEVEL 105 MEQ/L (98-107); CREATININE FOR GFR 1.03 MG/DL (0.55-1.30); GLOMERULAR FILTRATION RATE > 60.0 (>51); GLUCOSE, FASTING 341 MG/DL (70-100); POTASSIUM SERUM 5.2 MEQ/L (3.5-5.1); SODIUM LEVEL 137 MEQ/L (136-145)
== END ==
LOC: M PLALAB 12:19
PROVIDERS: ATTEND Family Medicine
DX: R60.0 Localized edema (principal)

== ENCOUNTER → 2019-10-15 | Outpatient (REF) | payer OTHER ==
[2019-10-15 17:27] LABS: CALCIUM LEVEL 8.3 MG/DL (8.5-10.1); CREATININE FOR GFR 1.29 MG/DL (0.55-1.30); GLOMERULAR FILTRATION RATE 46.6 (>51); POTASSIUM SERUM 4.6 MEQ/L (3.5-5.1)
[2019-10-19 00:06] LABS: Lyme Disease IgG/IgM Antibodie <0.91 ISR (0.00-0.90); Lyme Disease IgM Ab Quantitati <0.80 index (0.00-0.79)
== END ==
LOC: M SFHCPLAZ 13:58
PROVIDERS: ATTEND Family Medicine
DX: M25.562 Pain in left knee (principal); E87.5 Hyperkalemia

== ENCOUNTER → 2019-11-08 | Outpatient (CLI) | payer OTHER ==
[~2019-11-08] MED LIST changes: +AMLO2.5T3 PO; +BENA40TA5 PO; -BENA40TA7 PO; +HUMU500S SC; -MECL-68 PO; +MECL1TAB31 PO; -TRAZ-163 PO; +TRAZ-257 PO; +VITA-199 PO
--- NOTE | 2019-11-23 01:32 | ECWPNPC ---
PATIENT NAME: JOSS FORD : 1970 GENDER: FEMALE VISIT DATE: 11/08/2019 DISCHARGE DATE: 11/08/19 1624 VISIT LOCKED DATE TIME: PHYSICIAN: RONNIE SIMMONS MD RESOURCE: RONNIE SIMMONS MD REASON FOR APPOINTMENT 1. PRE SEDATE HISTORY OF PRESENT ILLNESS HISTORY OF PRESENT ILLNESS: PAIN THE PATIENT DESCRIBES THE PAIN... 49-YEAR-OLD FEMALE PATIENT WITH A HISTORY OF CHRONIC LOWER BACK AND LEG PAIN. THE PATIENT DESCRIBES THE PAIN BURNING, TENDER, SHARP, STABBING, CONTINUOUS AND NIGHTLY WITH A PAIN SCORE OF 5-10/10 DEPENDING ON PHYSICAL ACTIVITY. THE PATIENT STATES THAT THE PAIN BEGINS IN HER LOW BACK AREA AND RADIATES DOWN BOTH LEGS, MAINLY HER RIGHT LEG. THE PATIENT NOTES THAT SHE HAS HAD A LEFT LEG AMPUTATION BELOW THE KNEE. THE PATIENT STATES THAT SHE HAS DIFFICULTY PERFORMING PHYSICAL ACTIVITIES DUE TO PAIN SUCH GROCERY SHOPPING, CLEANING HER HOME AND PERFORMING DAILY ACTIVITIES. THE PATIENT SAYS SHE USES A WALKER AND CANE TO AMBULATE AT HOME, BUT USES A WHEELCHAIR WHEN SHE IS OUTSIDE OF HER HOME. PATIENT DENIES UNEXPLAINABLE WEIGHT LOSS, FEVER, CHILLS, NEW CHANGES ON HER URINARY OR BOWEL CONTROL. FALL RISK SCREENING: SCREENING :NO FALLS REPORTED IN THE LAST YEAR CURRENT MEDICATIONS TAKING CLOBETASOL PROPIONATE 0.05 % SOLUTION 1 APPLICATION TO AFFECTED AREA EXTERNALLY TWICE A DAY TO SCALP TAKING KETOCONAZOLE 2 % SHAMPOO 5 APPLICATIONS TO SCALP EXTERNALLY ONCE A DAY AND LET SIT FOR 5 MINUTES TAKING BACTROBAN 2% OINTMENT DIRECTED APPLIED TOPICALLY TWICE A DAY TAKING HIBICLENS 4 % LIQUID DIRECTED EXTERNALLY TWICE A DAY TAKING COLLAGEN ULTRA - CAPSULE 1 CAP ORALLY DAILY TAKING CYCLOBENZAPRINE HCL 10 MG TABLET 1 TAB ORALLY THREE TIMES A DAY PRN MUSCLE SPASMS TAKING RESTASIS 0.05 % EMULSION 1 DROP INTO AFFECTED EYE OPHTHALMIC TWICE A DAY TAKING HYDROCODONE-ACETAMINOPHEN 10-325 MG TABLET 1 TABLET NEEDED ORALLY EVERY 4 HRS TAKING LUNESTA 3 MG TABLET 1 TABLET IMMEDIATELY BEFORE BEDTIME ORALLY ONCE A DAY TAKING SYMBICORT 80-4.5 MCG/ACT AEROSOL 2 PUFFS INHALATION TWICE A DAY TAKING PROAIR HFA 108 (90 BASE) MCG/ACT AEROSOL SOLUTION 2 PUFFS NEEDED INHALATION EVERY 6 HRS TAKING METHYLPHENIDATE HCL ER (LA) 20 MG CAPSULE EXTENDED RELEASE 24 HOUR 1 CAPSULE IN THE MORNING ORALLY ONCE A DAY TAKING MAGNESIUM CHLORIDE 64 MG TABLET DELAYED RELEASE 1 TABLET ORALLY DAILY TAKING SINGULAIR 10 MG TABLET 1 TABLET ORALLY ONCE A DAY TAKING NYSTATIN POWDER 339441 UNIT POWDER POWDER EXTERNALLY TO BILATERAL BERAST AND ABD PANNUS DAILY NEEDED DAILY TAKING ZANTAC 150 MG TABLET 1 TABLET AT BEDTIME ORALLY ONCE A DAY TAKING ROPINIROLE HCL 2 MG TABLET 1 TABLET AT 8 PM AND AT MIDNIGHT ORALLY BID TAKING LYRICA 300 MG CAPSULE 1 CAPSULE ORALLY TWICE A DAY (PAIN CLINIC) TAKING SEROQUEL 300 MG TABLET 2 TABLET ORALLY BEFORE BEDTIME TAKING WHEELCHAIR - MISCELLANEOUS DIRECTED DX Z89.51, M54.41 TAKING MISC. DEVICES - MISCELLANEOUS DIRECTED REPAIR AND REPLACE PROSTHETIC AND LINERS NEEDED; DX Z89.51 TAKING MAY USE - - WHEEL CHAIR DX CODE Z89.512 _ TAKING CYMBALTA 60 MG CAPSULE DELAYED RELEASE PARTICLES 2 CAPSULES ORALLY DAILY TAKING REFRESH 1 % SOLUTION 1 DROP INTO AFFECTED EYE NEEDED OPHTHALMIC FOUR TIMES DAILY PRN TAKING VALACYCLOVIR HCL 1 GM TABLET 1 TABLET ORALLY EVERY 24 HRS TAKING ROSUVASTATIN CALCIUM 10 MG TABLET 1 TABLET ORALLY ONCE A DAY TAKING BETAMETHASONE VALERATE 0.1 % CREAM 1 APPLICATION TO AFFECTED AREA EXTERNALLY ONCE A DAY TAKING CETIRIZINE HCL 10 MG TABLET 1 TABLET ORALLY ONCE A DAY TAKING XOPENEX 1.25 MG/3ML NEBULIZATION SOLUTION 3 ML INHALATION EVERY 6 HOURS NEEDED TAKING BD PEN MINI - MISCELLANEOUS DIRECTED E11.9 QID TAKING PROBIOTIC - TABLET DELAYED RELEASE ORALLY TAKING CHOLECALCIFEROL 61747 UNIT CAPSULE 1 CAPSULE ORALLY ONCE A WEEK ON TUESDAY TAKING EPIPEN 0.3 MG/0.3ML DEVICE 1 INJECTION INJECTION NEEDED FOR ALLERGIC REACTION TAKING ZOFRAN 8 MG TABLET 1 TAB PRN NAUSEA ORALLY EVERY 12 HOURS TAKING TAMSULOSIN HCL 0.4 MG CAPSULE EXTENDED RELEASE ORALLY DAILY HS TAKING HUMALOG KWIKPEN 200 UNIT/ML SOLUTION PEN-INJECTOR DIRECTED SUBCUTANEOUS TID PER SLIDING SCALE TAKING BYDUREON 2 MG PEN-INJECTOR 1 INJECTION SUBCUTANEOUS WEEKLY, NOTES: TUESDAYS TAKING TRESIBA 200 U/ML 320 UNITS SUBCUTANEOUSLY DAILY TAKING TORSEMIDE 20 MG TABLET 1 TAB ORALLY DAILY TAKING BENAZEPRIL HCL 10 MG TABLET TAKE ONE TABLET BY MOUTH EVERY DAY ORALLY DAILY TAKING CARVEDILOL 25 MG TABLET 1 TAB ORALLY BID TAKING DEXILANT 60 MG CAPSULE DELAYED RELEASE 1 CAPSULE ORALLY ONCE A DAY TAKING TRAZODONE HCL 100 MG TABLET 2 TABLETS ORALLY ONCE A DAY AT HS TAKING ELIQUIS 5 MG TABLET 1 TABLET ORALLY BID, NOTES: KNOWS TO STOP 4 DAYS PRIOR TO PROCEDURE NOT-TAKING AMLODIPINE BESYLATE 10 MG TABLET 1 TABLET ORALLY ONCE A DAY MEDICATION LIST REVIEWED AND RECONCILED WITH THE PATIENT PAST MEDICAL HISTORY CHARCOT 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 NOW S/P AMPUTATION OF LEFT FOOT BILATERAL DIABETIC FOOT ULCERS LUMBAR SPONDYLOSIS, CENTRAL CANAL STENOSIS AT L2-5 SECONDARY TO DISC BULGE LIGAMENTOUS AND FACET HYPERTROPHY LUMBAR FACET ARTHROPATHY, DISC BULGING AT L5-S1 CHRONIC LOW BACK PAIN - FOLLOWED BY PAIN CLINIC DIABETES MELLITUS DX 26 YO, FOLLOWED BY [facility] + FOR RHEUMATOID FACTOR 04/27/12 HEPATOSTEATOSIS US 05/2013 HYPOGAMMAGOBULINEMIA HYPERTENSION ASTHMA BIPOLAR, OCD, AGORAPHOBIC ANXIETY FIBROMYALGIA SPINA BIFIDA OCCULTA B/L TMJ DYSFUNCTION PSORIASIS BULGING DISC THORACIC - LUMBAR ABDOMINAL ADHESIONS TEMPORAL LOBE SEIZURES GERD, HIATAL HERNIA - DR. TAVERAS BRAIN MRI 2013 NL HERPES SIMPLEX II VIA PCR ON LESIONS ON BACK FATTY LIVER + FVL ON CHRONIC VKA GOAL INR2-3 TYPE 2 DIABETES MELLITUS WITH OTHER CIRCULATORY COMPLICATIONS - NEFTALY DIABETIC GASTROPARESIS - DR. TAVERAS HO RECTO-SIGMOID ISCHEMIC COLITIS 03/2018 CONFIRMED BY SIGMOID C BX-NITIN, MSESNTERIC ARTERIOGRAM S INTERVENTION URINARY RETENTION - [facility] UROLOGY MCCOLLUM'S PALSY - NEURO CKD2, PROTEINURIA - NEPHRO ALLERGIES LATEX (FOR ALLERGY USE ONLY): ANAPHYLAXIS - ALLERGY PENICILLIN (FOR ALLERGIES USE ONLY): ANAPHYLAXIS - ALLERGY SULFA (FOR ALLERGY USE ONLY): HIVES - ALLERGY TRICOR: HIVES - ALLERGY GLUCOPHAGE: HIVES - ALLERGY LIPITOR: HIVES - ALLERGY ZOCOR: HIVES - ALLERGY FRESH PINEAPPLE : SWOLLEN LIPS/ SORES IN MOUTH - ALLERGY KEFLEX: HIVES - ALLERGY SURGICAL HISTORY GALLBLADDER 1996 CERVICAL DISCECTOMY C5-6 FUSION 1995 HYSTERECTOMY 2000 LUMPECTOMY RIGHT BREAST 2004 SKIN LESION REMOVED 2004 MULTIPLE DIAGNOSTIC LAPAROSCOPIES VENOUS PORTACATH LEFT CHEST X2 PICC LINE LEFT & RIGHT UPPER ARM X3 APPENDECTOMY 2009 EXCISED ABCESSED WOUNDS X3 DUE TO INFECTION. ULNAR RELEASE RIGHT ARM/HAND CHANI CATH X2 STOOL TRANSPLANT PORT PLACED 12/23/2016 ULNAR RELEASE AND CARPAL TUNNEL RELEASE RIGHT ARM WITH REVISION: DR. RECINOS LEFT CHARCOT FOOT DEBRIDEMENT: DR. LILLY 02/2017 LEFT BKA FOR CHRONIC WOUND/OSTEOMYELITIS 05/2017 EGD- GASTRIC POLYP RESECTED; DR. TAVERAS 06/2018 COLONOSCOPY - SIGMOID ULCER; DR. TAVERAS 06/2018 EGD - NORMAL; DR. TAVERAS 10/2018 FAMILY HISTORY FATHER: 82 YRS, HEART ISSUES, PACEMAKER, PROSTATE CANCER MOTHER: 80 YRS, OSTEOPOROSIS, HTN, STROKE 2X SIBLINGS: ALIVE 49,48 YRS, DIABETES 2 BROTHER(S) , 5 SISTER(S) . BROTHER WITH TYPE I DIABETESSISTER WITH HYPERTENSIONDENIES ANY FH OF MELANOMA OR PANCREATIC CANCERS. SOCIAL HISTORY GENERAL: TOBACCO USE ARE YOU A:CURRENT SMOKER ARE YOU INTERESTED IN QUITTING?THINKING ABOUT QUITTING COUNSELED THE PATIENT ON SMOKING CESSATION, EDUCATION JSEGRPTC81/30/2019 HOW MANY CIGARETTES A DAY DO YOU SMOKE?6-10 HOW SOON AFTER YOU WAKE UP DO YOU SMOKE YOUR FIRST CIGARETTE?AFTER 60 MIN HOW OFTEN DO YOU SMOKE CIGARETTES?EVERY DAY PATIENT COUNSELED ON THE DANGERS OF TOBACCO USE AND URGED TO QUIT:10/15/2019 ADDITIONAL FINDINGS: TOBACCO USERMODERATE CIGARETTE SMOKER (10-19 CIGS/DAY) SMOKING CESSATION INFORMATION GIVEN11/08/2019 HIV / HEP-C SCREENING HIV TEST OFFERED TO PATIENT:NO HEP-C TEST OFFERED TO PATIENT:NO OTHERS AT HOME: SPOUSE. HOUSING: OWNS HOME. 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 DIET: CARBOHYDRATE CONTROLLED. LANGUAGE LANGUAGES SPOKEN:SLOVENIAN DOMESTIC VIOLENCE DO YOU FEEL SAFE IN YOUR ENVIRONMENT?YES BMI CARE GOAL FOLLOW-UP ABOVE NORMAL BMI FOLLOW-UPLIFESTYLE EDUCATION REGARDING DIET RECREATIONAL DRUG USE DENIES. EXERCISE: NO REGULAR EXERCISE. LEARNING BARRIERS / SPECIAL NEEDS CHANGE FROM LAST VISIT?NO BARRIERS TO LEARNING?NO HEARING IMPAIRED?NO VISION IMPAIRED?YES COGNITIVELY IMPAIRED?NO :CORRECTIVE LENSES READINESS TO LEARN?YES LEARNING PREFERENCES?NO LEARNING CAPABILITIES PRESENT?YES EMOTIONAL BARRIERS?NO SPECIAL DEVICES?YES :CANE, WALKER, WHEELCHAIR LEFT LEG PROSTHETIC WEB SERVICES PROFESSIONAL NEEDED?NO PAIN CLINIC PFS, CLERGY, PUBLIC HEALTH REFERRALS HAS THE PATIENT BEEN EDUCATED REGARDING HIS/HER PLAN OF CARE?YES EDUCATED PT REGARDING PROCEDURE, PT ACKNOWLEDGED UNDERSTANDING. HAS THE PATIENT BEEN EDUCATED REGARDING PAIN, THE RISK FOR PAIN, THE IMPORTANCE OF EFFECTIVE PAIN MANAGEMENT, AND THE PAIN ASSESSMENT PROCESS?YES LATEX QUESTIONNAIRE LATEX ALLERGY : HAVE YOU EVER DEVELOPED ANY TYPE OF REACTION AFTER HANDLING LATEX PRODUCTS SUCH RUBBER GLOVES, CONDOMS, DIAPHRAGMS, BALLOONS, SOCKS, OR UNDERWEAR?YES LATEX ALLERGY : HAVE YOU EVER DEVELOPED ANY TYPE OF REACTION DURING OR AFTER DENTAL APPOINTMENT, VAGINAL/RECTAL EXAMINATION, SURGICAL PROCEDURE, OR ANY OTHER EXPOSURE?YES - PLEASE INDICATE :RUBBER GLOVES, CONDOMS, BALLOONS - PLEASE INDICATE :VAGINAL EXAM, RECTAL EXAM DATE ASKED : 02/05/2019 LATEX RISK : HAVE YOU EVER HAD ANY DIFFICULTY BREATHING OR HIVES AFTER EATING OR HANDLING ANY FRUITS, OR VEGETABLES; SUCH KIWI, BANANAS, STONE FRUITS, OR CHESTNUTSNO LATEX RISK : DO YOU HAVE A PREVIOUS PERSONAL HISTORY OF MORE THAN NINE SURGERIES, SPINA BIFIDA, OR REPEATED CATHERIZATIONS? YES - PLEASE INDICATE : > 9 SURGERIES LATEX RISK : ARE YOU FREQUENTLY EXPOSED TO LATEX PRODUCTS IN YOUR OCCUPATION?NO CAFFEINE CAFFEINE USE?NO ADVANCE DIRECTIVE ADVANCE DIRECTIVE DISCUSSED WITH PATIENT:YES PT HAS HEALTH CARE PROXY, JAYASHREE FORD [phone] HINDU [id number] NONE MARITAL STATUS: . ALCOHOL SCREENING POINTS: 0, INTERPRETATION: NEGATIVE. 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 SEXUAL HX HAD SEX IN THE LAST 12 MONTHS (VAGINAL, ORAL, OR ANAL)?YES WITHMEN ONLY PREVENTION STRATEGIES DISCUSSED:CONDOMS USE PROTECTION?NO HAVE YOU EVER HAD AN STD?NO REVIEWED WITH PATIENT 08/28/19 1531 JS REVIEWED WITH PATIENT 11/08/2019 1547 [facility]. HOSPITALIZATION/MAJOR DIAGNOSTIC PROCEDURE SEPSIS, L FOOT ULCER, SUSPECTED COLITIS 08/23/2014 DVT RLL 09/06/2014 SEPTIC SHOCK SECONDARY TO MULTIPLE SKIN ULCERS 10/22/2014 LOW BLOOD SUGERS AND INFECTIONS 11/11/2014 RLL CELLULITUS AND OSTEOMYELITIS 01/06/2015 HYPOTENSION, SYNCOPE 02/21/2015 DIABETIC FOOT ULCER OSTEO 04/30/15 STAPH HOMINIS LINE SEPSIS MSSA CHRONIC OSTEOMELYTIS FOOT 05/15/15 WOUND INFECTION 06/2015 SEPSIS 06/2015 SEPSIS 07/2015 ADMITTED FOR PORT INFECTION 11/2015 C-DIFF 12/2015 LEFT FOOT R/O OSTEOMYELITIS. 05/27/2016 HYPERGLYCEMIA IN AN UNCONTROLLED TYPE I DIABETIC, R SIDED FLANK PAIN, CKD, HYPONATREMIA SECONDARY TO HYPERGLYCEMIA, ANXIETY, DEPRESSION, HYPERTENSION, ASTHMA, HX OF DVT, UTI 08/30-09/03/2016 CELLULITIS LEFT FOOT 01/13/17-01/19/17 CELLULITIS OF THE RIGHT LOWER FOOT, MILD ACUTE RENAL FAILURE 04/12/17-04/14/17 KIDNEY INJURY 10/05 HYPERGYYCEMIA, HYOERTENSION, HYPERKALEMIA, ACUTE KIDNEY INJURY 10/25/2017 DEHYDRATION AND ALTERED MENTAL STATUS 02/14/2018 ACUTE SIGMO-RECTAL ISCHEMIC COLITIS C SEVERE SEPSIS/MELODY I/TME/BLOODY STOOLS/ELEVATED BHG BUT PH 7.6 (WBC ON ADMISSION 17K, PEAK CR 1.7), CONFIRMED BY SIGMOID C BX-REINDL, -BCX X 2, -GI PANEL -UCX, MESENTERIC ARTERIOGRAM DONE BY SRAVAN Hernandez INTERVENTION//CT HE 03/20- LETICIA LOCKETT 10/08/2018 3 DAYS RENAL FAILURE 05/22/2019 RIGHT FOOT CELLULITIS 06/2019 REVIEW OF SYSTEMS REVIEWED BY: PROVIDER: RONNIE SIMMONS MD . CONSTITUTIONAL: ANY CHANGE IN YOUR MEDICAL CONDITION? NO . CHILLS NO . FEVER NO . INFECTION: DO YOU HAVE NEW INFECTIONS? NO . DO YOU HAVE HISTORY OF MRSA? YES . MUSCULOSKELETAL: ANY NEW PATTERNS OF PAIN OR NUMBNESS? NO . GASTROENTEROLOGY: ANY NEW CHANGE IN BOWEL CONTROL? NO . GENITOURINARY: ANY NEW CHANGE IN BLADDER CONTROL? NO . IS THERE A CHANCE YOU COULD BE ? NO . HEMATOLOGY/LYMPH: DO YOU TAKE ANY BLOOD THINNERS? (FOR EXAMPLE- COUMADIN, PLAVIX, AGGRENOX, PLATEL, PRADAXA, OR XARELTO) YES-ELIQUIS DAILY . WHEN WAS YOUR LAST DOSE? DATE:11/08/2019 TIME: 0800 . NEUROLOGY: HAVE YOU FALLEN IN THE PAST 12 MONTHS? YES- NONE SINCE LAST VISIT, STATES PEVIOUSLY DOCUMENTED . ANY NEW EXTREMITY NUMBNESS OR WEAKNESS? NO . CARDIOLOGY: DO YOU HAVE A PACEMAKER OR DEFIBRILLATOR? NO . RESPIRATORY: HAVE YOU BEEN SICK IN THE PAST WEEK? NO . FEVER NO . FLU LIKE SYMPTOMS? NO . COUGH NO . INTEGUMENTARY: DO YOU HAVE ANY RASHES OR OPEN SORES? NO . ALLERGIC/IMMUNO: ARE YOU ALLERGIC TO IV DYE? NO . ANY NEW ALLERGIES? NO . PSYCHIATRIC: DO YOU HAVE THOUGHTS OF HURTING YOURSELF OR SOMEONE ELSE? NO . ARE YOU ABUSED, NEGLECTED, OR IN AN UNSAFE ENVIRONMENT? NO . ENDOCRINOLOGY: ARE YOU DIABETIC? YES . OTHER: DO YOU NEED ANY PRESCRIPTIONS? NO . IF YES, PLEASE LIST: ____ . ANY NEW PROBLEMS WITH YOUR MEDICATIONS? NO . WHEN DID YOU LAST EAT? ____ . WHEN DID YOU LAST DRINK? ____ . WHAT DID YOU LAST DRINK? ____ . NAME OF PERSON DRIVING YOU HOME? ____ . DO YOU HAVE ANY OTHER QUESTIONS OR CONCERNS NO . VITAL SIGNS WT 260 LBS, HT 70 IN, BMI 37.30 INDEX, BP 117/64 MM HG, HR 93 /MIN, RR 18 /MIN, TEMP 96.2 F, OXYGEN SAT % 97%, NA INITIALS AW 1451. EXAMINATION GENERAL EXAMINATION: PATIENT IS ALERT O X 3 AND COOPERATIVE. LUNGS: THE PATIENT DEMONSTRATES SOME WHEEZING ON DEEP ASPIRATION. HEART: NO MURMURS OR GALLOPS; FACIAL CRANIAL NERVES ARE GROSSLY NORMAL. GOOD SYMMETRY OF FACIAL MUSCLE MOVEMENT. NORMAL VISUAL UHGO. THE RIGHT LEG IS WEAKER AT EXTENSION AND FLEXION. MRI OF THE LUMBAR SPINE DONE ON 02/20/2019 SHOWS CANAL STENOSIS AT L4-L5 AND BULGING DISCS AT L3-L4 AND L5-S1. ASSESSMENTS INTERVERTEBRAL DISC DISORDERS WITH RADICULOPATHY, LUMBAR REGION - M51.16 (PRIMARY) TREATMENT INTERVERTEBRAL DISC DISORDERS WITH RADICULOPATHY, LUMBAR REGION CLINICAL NOTES: WE DISCUSSED SEVERAL ISSUES WITH MS. FORD'S PAIN MANAGEMENT CASE. DUE TO LUMBAR RADICULOPATHY, I WOULD LIKE TO MOVE FORWARD WITH A LUMBAR EPIDURAL STEROID INJECTION WITH A CATHETER AT THIS TIME. MS. FORD WOULD LIKE TO MOVE FORWARD WITH IV SEDATION DUE TO DISCOMFORT, PAIN AND ANXIETY ASSOCIATED WITH THE PROCEDURE. THE PATIENT CONSENTED THAT SHE WILL UNDERGO RESPIRATORY THERAPY PRIOR TO THE PROCEDURE. WE DISCUSSED THE BENEFITS, RISKS AND ALTERNATIVES OF THE INJECTION, AND THE PATIENT WOULD LIKE TO PROCEED. INSTRUCTIONS WERE GIVEN, QUESTIONS WERE ANSWERED, PATIENT REPORTS UNDERSTANDING AND AGREES WITH THE PLAN. I, TARIQ NEGRETE, DOCUMENTED THE ABOVE INFORMATION ACTING A SCRIBE FOR DR. SIMMONS. I HAVE REVIEWED THE ABOVE DOCUMENT, WRITTEN BY MARTHA DIEZ, AND I VERIFY THAT IT IS ACCURATE. . PREVENTIVE MEDICINE PAIN CLINIC TEACHING: PROCEDURE TEACHING PT VERBALIZES UNDERSTANDING OF PRE PROCEDURE INSTRUCTIONS REVIEWED. 11/08/2019 1630 NLJ THIS QUALITY ASSURANCE ASSOCIATE CALLED PT PER DR SIMMONS'S REQUEST TO INFORM PT TO USE HER NEBULIZER TREATMENT THE MORNING OF PROCEDURE AT HOME BEFORE PROCEDURE WELL BRING HER INHALERS WITH HER DAY OF PROCEDURE. PT VERBALIZES UNDERSTANDING OF ABOVE. 11/08/2019 1634 NLJ. PROCEDURE CODES [id number] ESTABILISHED PATIENT [facility] FACILITY CHARGE [id number] OFFICE/OUTPATIENT VISIT EST [id number] CURRENT MEDS W/DOSAGES DOCUMENTED [id number] PAIN ASSESS POS TOOL F/U PLAN DOC DISPOSITION & COMMUNICATION ELECTRONICALLY SIGNED BY RONNIE SIMMONS MD, MD ON 11/22/2019 AT 12:11 PM EST DISCLAIMER : THIS IS A VISIT SUMMARY [facility]ACTED FROM [facility]. IT IS NOT A COPY OF THE [employer] PROGRESS NOTE. MISTYD
== END ==
LOC: M PAIN 14:45
PROVIDERS: ATTEND Anesthesiology
DX: M51.16 Intervertebral disc disorders with radiculopathy, lumbar region (principal); G89.29 Other chronic pain; E11.9 Type 2 diabetes mellitus without complications; I10 Essential (primary) hypertension; J45.909 Unspecified asthma, uncomplicated; Z86.59 Personal history of other mental and behavioral disorders; M79.7 Fibromyalgia; K21.9 Gastro-esophageal reflux disease without esophagitis; F17.210 Nicotine dependence, cigarettes, uncomplicated; Z88.0 Allergy status to penicillin; Z88.1 Allergy status to other antibiotic agents; Z88.2 Allergy status to sulfonamides; Z88.8 Allergy status to other drugs, medicaments and biological substances; Z91.018 Allergy to other foods; Z91.040 Latex allergy status; Z86.718 Personal history of other venous thrombosis and embolism; Z79.01 Long term (current) use of anticoagulants; Z79.4 Long term (current) use of insulin; Z79.899 Other long term (current) drug therapy

== ENCOUNTER 2019-11-12 12:16 | Emergency (ER) | payer OTHER ==
[~2019-11-12] VITALS: Ht 177.8 cm; Wt 121.8 kg
[~2019-11-12 12:16] MED LIST changes: -AMLO2.5T3 PO; -HUMU500S SC; -VITA-199 PO
[2019-11-12] MEDS ORDERED: VITA-199 PO (13:16)
[2019-11-12] MEDS ORDERED: INSULIN IV RATE CHANGE DOCUMENTATION ML/HR XX SCH (13:45)
[2019-11-12] MEDS ORDERED: NS 1,000 ML IV ONE (13:45)
[2019-11-12 14:19] LABS: VENOUS BASE EXCESS 3.8 (-2.0-2.0); VENOUS HCO3 29.4 MEQ/L (23.0-27.0); VENOUS O2 SATURATION 91.7 % (60.0-80.0); VENOUS PARTIAL PRESSURE CO2 48.6 mmHg (38.0-50.0); VENOUS PARTIAL PRESSURE O2 65.2 mmHg (30.0-50.0); VENOUS PH 7.399 UNITS (7.330-7.430); VENOUS STANDARD HCO3 27.7 MEQ/L; VENOUS TOTAL CO2 30.9 MEQ/L (24.0-28.0)
[2019-11-12 14:22] LABS: VENOUS BASE EXCESS 2.8 (-2.0-2.0); VENOUS HCO3 28.5 MEQ/L (23.0-27.0); VENOUS O2 SATURATION 87.8 % (60.0-80.0); VENOUS PARTIAL PRESSURE CO2 48.6 mmHg (38.0-50.0); VENOUS PARTIAL PRESSURE O2 56.4 mmHg (30.0-50.0); VENOUS PH 7.386 UNITS (7.330-7.430); VENOUS STANDARD HCO3 26.7 MEQ/L
[2019-11-12 14:24] LABS: BASO % 0.4 % (0.0-1.0); EOS # 0.2 10^3/uL (0.0-0.5); EOS % 2.3 % (0.0-3.0); HEMATOCRIT 33.7 % (36.0-47.0); HEMOGLOBIN 11.6 g/dl (12.0-15.5); LYMPH # 1.6 10^3/uL (1.5-5.0); LYMPH % 20.6 % (24.0-44.0); MEAN CORPUSCULAR HEMOGLOBIN 29.2 pg (27.0-33.0); MEAN CORPUSCULAR HGB CONC 34.4 g/dl (32.0-36.5); MEAN CORPUSCULAR VOLUME 84.9 fl (80.0-96.0); MONO # 0.5 10^3/uL (0.0-0.8); MONO % 6.4 % (0.0-5.0); NEUTROPHILS # 5.2 10^3/uL (1.5-8.5); PLATELET COUNT, AUTOMATED 183 10^3/uL (150-450); RED BLOOD COUNT 3.97 10^6/uL (4.00-5.40); WHITE BLOOD COUNT 7.5 10^3/uL (4.0-10.0)
[2019-11-12 14:45] LABS: HEMOGLOBIN A1c 12.4 %
[2019-11-12] MEDS ORDERED: TRAZ-257 PO (14:47)
[2019-11-12] MEDS ORDERED: HUMU500S SC (14:47)
[2019-11-12] MEDS ORDERED: AMLO2.5T3 PO (14:47)
[2019-11-12 15:05] LABS: ACETONE/KETONE 1.05 MG/DL (<2.81); ALBUMIN 2.9 GM/DL (3.2-5.2); ALT/SGPT 26 U/L (12-78); BILIRUBIN,DIRECT < 0.1 MG/DL (0.0-0.2); BILIRUBIN,TOTAL 0.2 MG/DL (0.2-1.0); BLOOD UREA NITROGEN 37 MG/DL (7-18); CALCIUM LEVEL 8.4 MG/DL (8.5-10.1); CARBON DIOXIDE LEVEL 30 MEQ/L (21-32); CHLORIDE LEVEL 94 MEQ/L (98-107); CREATININE FOR GFR 1.62 MG/DL (0.55-1.30); GLOMERULAR FILTRATION RATE 35.8 (>51); GLUCOSE, FASTING 463 MG/DL (70-100); POTASSIUM SERUM 4.8 MEQ/L (3.5-5.1); SODIUM LEVEL 131 MEQ/L (136-145); TOTAL PROTEIN 6.5 GM/DL (6.4-8.2)
[2019-11-12] MEDS: INSULIN HUMAN REGULAR 100 UNITS in NS 99 ML IV SCH ×2 (15:26→19:24)
[2019-11-12] MEDS ORDERED: MORPHINE 4 MG/ML 1ML VIAL/SYRINGE (J2270) IV ONE (16:45)
[2019-11-12] MEDS ORDERED: DEXTROSE 50% 50 ML SYRINGE IV STA (18:43)
[2019-11-12 21:56] VITALS: BP 148/70
== END 2019-11-12 21:57 | disposition home or self-care (01) ==
LOC: M ED 12:16
DX: E11.65 Type 2 diabetes mellitus with hyperglycemia (principal); I51.9 Heart disease, unspecified; I10 Essential (primary) hypertension; F17.200 Nicotine dependence, unspecified, uncomplicated; Z79.4 Long term (current) use of insulin; Z79.899 Other long term (current) drug therapy; Z91.040 Latex allergy status; Z88.0 Allergy status to penicillin; Z91.89 Other specified personal risk factors, not elsewhere classified; Z88.2 Allergy status to sulfonamides; Z88.1 Allergy status to other antibiotic agents; Z88.8 Allergy status to other drugs, medicaments and biological substances; Z91.018 Allergy to other foods
CPT/HCPCS: 80048; 80076; 81001; 82010; 82803; 83036; 85025; 93041; 96374; 96375; 99284; J2270

== ENCOUNTER → 2019-11-12 | Outpatient (REF) | payer OTHER ==
[2019-11-12 11:19] LABS: HEMOGLOBIN A1c 12.5 %
[2019-11-12 11:26] LABS: CALCIUM LEVEL 8.2 MG/DL (8.5-10.1); CREATININE FOR GFR 1.82 MG/DL (0.55-1.30); GLOMERULAR FILTRATION RATE 31.3 (>51); POTASSIUM SERUM 5.4 MEQ/L (3.5-5.1)
== END ==
LOC: M SFHCPLAZ 08:31
PROVIDERS: ATTEND Family Medicine
DX: E11.59 Type 2 diabetes mellitus with other circulatory complications (principal); I10 Essential (primary) hypertension

== ENCOUNTER → 2019-11-14 | Outpatient (CLI) | payer OTHER ==
[~2019-11-14] MED LIST changes: +AMLO2.5T3 PO; +HUMU500S SC; +ISOVUE-M 300 61% 15ML VIAL (Q9967) As Ordered ONE; +LIDOCAINE 1% SDV INJ 30 ML VIAL As Ordered ONE; +MIDAZOLAM INJ 2 MG/2 ML VIAL (J2250) As Ordered ONE; -MONT10TA2 PO; +MONT10TA4 PO; -ROPI2TAB PO; +ROPI2TAB3 PO; +VALA1TAB5 PO; -VALA1TAB64 PO; +VITA-199 PO; +fentaNYL 100 MCG/2 ML INJECTION (J3010) As Ordered ONE; +methylPREDNISolone SUSP 40 MG/ML (DEPO-medrol) VIAL (J1030) As Ordered ONE
--- NOTE | 2019-11-14 19:07 | REP ---
FLUOROSCOPIC GUIDANCE FOR LUMBAR EPIDURAL STEROID INJECTION: 11/14/2019. Clinical history: Low back pain. Findings: Three images from C-arm fluoroscopy provided to Dr. Villarreal of the pain clinic for lumbar epidural steroid injection show a needle adjacent to the L5-S1 facets on the right side with contrast associated with that needle. Fluoroscopy time: 26 seconds Electronically Signed by Lei Boucher MD 11/14/2019 08:27 P
--- NOTE | 2019-11-23 02:20 | ECWPNPC ---
PATIENT NAME: JOSS FORD : 1970 GENDER: FEMALE VISIT DATE: 11/14/2019 DISCHARGE DATE: 11/14/19 174 VISIT LOCKED DATE TIME: PHYSICIAN: RONNIE SIMMONS MD RESOURCE: RONNIE SIMMONS MD REASON FOR APPOINTMENT 1. L5-S1 LESI CATH AND IV SED/RESPIRATORY THERAPY HISTORY OF PRESENT ILLNESS HISTORY OF PRESENT ILLNESS: PAIN THE PATIENT DESCRIBES THE PAIN... FALL RISK SCREENING: SCREENING :NO FALLS REPORTED IN THE LAST YEAR CURRENT MEDICATIONS TAKING CLOBETASOL PROPIONATE 0.05 % SOLUTION 1 APPLICATION TO AFFECTED AREA EXTERNALLY TWICE A DAY TO SCALP, NOTES: 11/14 1099 TAKING KETOCONAZOLE 2 % SHAMPOO 5 APPLICATIONS TO SCALP EXTERNALLY ONCE A DAY AND LET SIT FOR 5 MINUTES, NOTES: 11/14 1099 TAKING BACTROBAN 2% OINTMENT DIRECTED APPLIED TOPICALLY TWICE A DAY, NOTES: 11/13 899 TAKING HIBICLENS 4 % LIQUID DIRECTED EXTERNALLY TWICE A DAY, NOTES: 11/14 1099 TAKING COLLAGEN ULTRA - CAPSULE 1 CAP ORALLY DAILY, NOTES: 11/14 899 TAKING CYCLOBENZAPRINE HCL 10 MG TABLET 1 TAB ORALLY THREE TIMES A DAY PRN MUSCLE SPASMS, NOTES: 11/13 2099 TAKING RESTASIS 0.05 % EMULSION 1 DROP INTO AFFECTED EYE OPHTHALMIC THREE TIMES A DAY, NOTES: 11/14 1099 TAKING HYDROCODONE-ACETAMINOPHEN 10-325 MG TABLET 1 TABLET NEEDED ORALLY EVERY 4 HRS, NOTES: 11/13 2099 TAKING LUNESTA 3 MG TABLET 1 TABLET IMMEDIATELY BEFORE BEDTIME ORALLY ONCE A DAY, NOTES: 11/13 2099 TAKING SYMBICORT 80-4.5 MCG/ACT AEROSOL 2 PUFFS INHALATION TWICE A DAY, NOTES: 11/14 1099 TAKING PROAIR HFA 108 (90 BASE) MCG/ACT AEROSOL SOLUTION 2 PUFFS NEEDED INHALATION EVERY 6 HRS, NOTES: 11/14 1299 TAKING METHYLPHENIDATE HCL ER (LA) 20 MG CAPSULE EXTENDED RELEASE 24 HOUR 1 CAPSULE IN THE MORNING ORALLY ONCE A DAY, NOTES: 11/13 899 TAKING MAGNESIUM CHLORIDE 64 MG TABLET DELAYED RELEASE 1 TABLET ORALLY DAILY, NOTES: 11/13 2099 TAKING SINGULAIR 10 MG TABLET 1 TABLET ORALLY ONCE A DAY, NOTES: 11/13 2099 TAKING NYSTATIN POWDER 074505 UNIT POWDER POWDER EXTERNALLY TO BILATERAL BERAST AND ABD PANNUS DAILY NEEDED DAILY, NOTES: NONE RECENT TAKING ZANTAC 150 MG TABLET 1 TABLET AT BEDTIME ORALLY ONCE A DAY, NOTES: 11/14 2099 TAKING ROPINIROLE HCL 2 MG TABLET 1 TABLET AT 8 PM AND AT MIDNIGHT ORALLY BID, NOTES: 11/14 TAKING LYRICA 300 MG CAPSULE 1 CAPSULE ORALLY TWICE A DAY (PAIN CLINIC), NOTES: 11/14 899 TAKING SEROQUEL 300 MG TABLET 2 TABLET ORALLY BEFORE BEDTIME, NOTES: 11/13 2099 TAKING WHEELCHAIR - MISCELLANEOUS DIRECTED DX Z89.51, M54.41 TAKING MISC. DEVICES - MISCELLANEOUS DIRECTED REPAIR AND REPLACE PROSTHETIC AND LINERS NEEDED; DX Z89.51 TAKING MAY USE - - WHEEL CHAIR DX CODE Z89.512 _ TAKING CYMBALTA 60 MG CAPSULE DELAYED RELEASE PARTICLES 2 CAPSULES ORALLY DAILY, NOTES: 11/13 2099 TAKING REFRESH 1 % SOLUTION 1 DROP INTO AFFECTED EYE NEEDED OPHTHALMIC FOUR TIMES DAILY PRN, NOTES: 11/13 2099 TAKING VALACYCLOVIR HCL 1 GM TABLET 1 TABLET ORALLY EVERY 24 HRS, NOTES: NONE RECENT TAKING ROSUVASTATIN CALCIUM 10 MG TABLET 1 TABLET ORALLY ONCE A DAY, NOTES: 11/13 2099 TAKING BETAMETHASONE VALERATE 0.1 % CREAM 1 APPLICATION TO AFFECTED AREA EXTERNALLY ONCE A DAY, NOTES: NONE RECENT TAKING CETIRIZINE HCL 10 MG TABLET 1 TABLET ORALLY ONCE A DAY, NOTES: 11/13 2099 TAKING XOPENEX 1.25 MG/3ML NEBULIZATION SOLUTION 3 ML INHALATION EVERY 6 HOURS NEEDED, NOTES: 11/13 899 TAKING BD PEN MINI - MISCELLANEOUS DIRECTED E11.9 QID TAKING PROBIOTIC - TABLET DELAYED RELEASE ORALLY , NOTES: 11/13 2099 TAKING CHOLECALCIFEROL 52504 UNIT CAPSULE 1 CAPSULE ORALLY ONCE A WEEK ON TUESDAY, NOTES: 11/13 899 TAKING EPIPEN 0.3 MG/0.3ML DEVICE 1 INJECTION INJECTION NEEDED FOR ALLERGIC REACTION, NOTES: NONE RECENT TAKING ZOFRAN 8 MG TABLET 1 TAB PRN NAUSEA ORALLY EVERY 12 HOURS, NOTES: NONE RECENT TAKING TAMSULOSIN HCL 0.4 MG CAPSULE EXTENDED RELEASE ORALLY DAILY HS, NOTES: 11/13 2099 TAKING DEXILANT 60 MG CAPSULE DELAYED RELEASE 1 CAPSULE ORALLY ONCE A DAY, NOTES: 11/13 2099 TAKING TRAZODONE HCL 100 MG TABLET 2 TABLETS ORALLY ONCE A DAY AT HS, NOTES: 11/13 2099 TAKING ELIQUIS 5 MG TABLET 1 TABLET ORALLY BID, NOTES: 11/09 2099 TAKING AMLODIPINE BESYLATE 2.5 MG TABLET 1 TABLET ORALLY ONCE A DAY, NOTES: 11/13 2099 TAKING DOXYCYCLINE MONOHYDRATE 100 MG CAPSULE 1 CAPSULE ORALLY BID, NOTES: 11/13 2099 TAKING TORSEMIDE 20 MG TABLET 1 TAB ORALLY DAILY, NOTES: 11/13 2099 TAKING BENAZEPRIL HCL 10 MG TABLET TAKE ONE TABLET BY MOUTH EVERY DAY ORALLY DAILY, NOTES: 11/13 2099 TAKING CARVEDILOL 25 MG TABLET 1 TAB ORALLY BID, NOTES: 11/14 899 TAKING HUMALOG KWIKPEN 200 UNIT/ML SOLUTION PEN-INJECTOR DIRECTED SUBCUTANEOUS TID PER SLIDING SCALE, NOTES: 11/13 2099 30 UNITS TAKING BYDUREON 2 MG PEN-INJECTOR 1 INJECTION SUBCUTANEOUS WEEKLY, NOTES: Tuesdays TAKING TRESIBA 200 U/ML 320 UNITS SUBCUTANEOUSLY DAILY, NOTES: 11/13 2099 MEDICATION LIST REVIEWED AND RECONCILED WITH THE PATIENT PAST MEDICAL HISTORY CHARCOT 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 NOW S/P AMPUTATION OF LEFT FOOT BILATERAL DIABETIC FOOT ULCERS LUMBAR SPONDYLOSIS, CENTRAL CANAL STENOSIS AT L2-5 SECONDARY TO DISC BULGE LIGAMENTOUS AND FACET HYPERTROPHY LUMBAR FACET ARTHROPATHY, DISC BULGING AT L5-S1 CHRONIC LOW BACK PAIN - FOLLOWED BY PAIN CLINIC DIABETES MELLITUS DX 26 YO, FOLLOWED BY [facility] + FOR RHEUMATOID FACTOR 04/27/12 HEPATOSTEATOSIS US 05/2013 HYPOGAMMAGOBULINEMIA HYPERTENSION ASTHMA BIPOLAR, OCD, AGORAPHOBIC ANXIETY FIBROMYALGIA SPINA BIFIDA OCCULTA B/L TMJ DYSFUNCTION PSORIASIS BULGING DISC THORACIC - LUMBAR ABDOMINAL ADHESIONS TEMPORAL LOBE SEIZURES GERD, HIATAL HERNIA - DR. TAVERAS BRAIN MRI 2013 HERPES SIMPLEX II VIA PCR ON LESIONS ON BACK FATTY LIVER + FVL ON CHRONIC VKA GOAL INR2-3 TYPE 2 DIABETES MELLITUS WITH OTHER CIRCULATORY COMPLICATIONS - NEFTALY DIABETIC GASTROPARESIS - DR. TAVERAS HO RECTO-SIGMOID ISCHEMIC COLITIS 03/2018 CONFIRMED BY SIGMOID C BX-NITIN, MSESNTERIC ARTERIOGRAM S INTERVENTION URINARY RETENTION - [facility] UROLOGY MCCOLLUM'S PALSY - NEURO CKD2, PROTEINURIA - NEPHRO ALLERGIES LATEX (FOR ALLERGY USE ONLY): ANAPHYLAXIS - ALLERGY PENICILLIN (FOR ALLERGIES USE ONLY): ANAPHYLAXIS - ALLERGY SULFA (FOR ALLERGY USE ONLY): HIVES - ALLERGY TRICOR: HIVES - ALLERGY GLUCOPHAGE: HIVES - ALLERGY LIPITOR: HIVES - ALLERGY ZOCOR: HIVES - ALLERGY FRESH PINEAPPLE : SWOLLEN LIPS/ SORES IN MOUTH - ALLERGY KEFLEX: HIVES - ALLERGY SURGICAL HISTORY GALLBLADDER 1996 CERVICAL DISCECTOMY C5-6 FUSION 1994 HYSTERECTOMY FOR PROLAPSE/ENDOMETRIOSIS 2000 LUMPECTOMY RIGHT BREAST 2004 SKIN LESION REMOVED 2004 MULTIPLE DIAGNOSTIC LAPAROSCOPIES VENOUS PORTACATH LEFT CHEST X2 PICC LINE LEFT & RIGHT UPPER ARM X3 APPENDECTOMY 2009 EXCISED ABCESSED WOUNDS X3 DUE TO INFECTION. ULNAR RELEASE RIGHT ARM/HAND CHANI CATH X2 STOOL TRANSPLANT PORT PLACED 12/23/2016 ULNAR RELEASE AND CARPAL TUNNEL RELEASE RIGHT ARM WITH REVISION: DR. RECINOS LEFT CHARCOT FOOT DEBRIDEMENT: DR. LILLY 02/2017 LEFT BKA FOR CHRONIC WOUND/OSTEOMYELITIS 05/2017 EGD- GASTRIC POLYP RESECTED; DR. TAVERAS 06/2018 COLONOSCOPY - SIGMOID ULCER; DR. TAVERAS 06/2018 EGD - NORMAL; DR. TAVERAS 10/2018 FAMILY HISTORY FATHER: 82 YRS, HEART ISSUES, PACEMAKER, PROSTATE CANCER MOTHER: 80 YRS, OSTEOPOROSIS, HTN, STROKE 2X SIBLINGS: ALIVE 49,48 YRS, DIABETES 2 BROTHER(S) , 5 SISTER(S) . BROTHER WITH TYPE I DIABETESSISTER WITH HYPERTENSIONDENIES ANY FH OF MELANOMA OR PANCREATIC CANCERS. SOCIAL HISTORY GENERAL: TOBACCO USE ARE YOU A:CURRENT SMOKER ARE YOU INTERESTED IN QUITTING?THINKING ABOUT QUITTING COUNSELED THE PATIENT ON SMOKING CESSATION, EDUCATION [id number]/28/2020 HOW MANY CIGARETTES A DAY DO YOU SMOKE?6-10 HOW SOON AFTER YOU WAKE UP DO YOU SMOKE YOUR FIRST CIGARETTE?AFTER 60 MIN HOW OFTEN DO YOU SMOKE CIGARETTES?EVERY DAY PATIENT COUNSELED ON THE DANGERS OF TOBACCO USE AND URGED TO QUIT:11/14/2019 ADDITIONAL FINDINGS: TOBACCO USERMODERATE CIGARETTE SMOKER (10-19 CIGS/DAY) SMOKING CESSATION INFORMATION GIVEN11/12/2019 HIV / HEP-C SCREENING HIV TEST OFFERED TO PATIENT:NO HEP-C TEST OFFERED TO PATIENT:NO OTHERS AT HOME: SPOUSE. HOUSING: OWNS HOME. 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 DIET: CARBOHYDRATE CONTROLLED. LANGUAGE LANGUAGES SPOKEN:PORTUGUESE DOMESTIC VIOLENCE DO YOU FEEL SAFE IN YOUR ENVIRONMENT?YES BMI CARE GOAL FOLLOW-UP ABOVE NORMAL BMI FOLLOW-UPLIFESTYLE EDUCATION REGARDING DIET RECREATIONAL DRUG USE DENIES. EXERCISE: NO REGULAR EXERCISE. LEARNING BARRIERS / SPECIAL NEEDS CHANGE FROM LAST VISIT?NO BARRIERS TO LEARNING?NO HEARING IMPAIRED?NO VISION IMPAIRED?YES COGNITIVELY IMPAIRED?NO :CORRECTIVE LENSES READINESS TO LEARN?YES LEARNING PREFERENCES?NO LEARNING CAPABILITIES PRESENT?YES EMOTIONAL BARRIERS?NO SPECIAL DEVICES?YES :CANE, WALKER, WHEELCHAIR LEFT LEG PROSTHETIC TERRA COTTA SETTER NEEDED?NO PAIN CLINIC PFS, CLERGY, PUBLIC HEALTH REFERRALS HAS THE PATIENT BEEN EDUCATED REGARDING HIS/HER PLAN OF CARE?YES EDUCATED PT REGARDING PROCEDURE, PT ACKNOWLEDGED UNDERSTANDING. HAS THE PATIENT BEEN EDUCATED REGARDING PAIN, THE RISK FOR PAIN, THE IMPORTANCE OF EFFECTIVE PAIN MANAGEMENT, AND THE PAIN ASSESSMENT PROCESS?YES LATEX QUESTIONNAIRE LATEX ALLERGY : HAVE YOU EVER DEVELOPED ANY TYPE OF REACTION AFTER HANDLING LATEX PRODUCTS SUCH RUBBER GLOVES, CONDOMS, DIAPHRAGMS, BALLOONS, SOCKS, OR UNDERWEAR?YES - PLEASE INDICATE :RUBBER GLOVES, CONDOMS, BALLOONS LATEX ALLERGY : HAVE YOU EVER DEVELOPED ANY TYPE OF REACTION DURING OR AFTER DENTAL APPOINTMENT, VAGINAL/RECTAL EXAMINATION, SURGICAL PROCEDURE, OR ANY OTHER EXPOSURE?YES - PLEASE INDICATE :VAGINAL EXAM, RECTAL EXAM LATEX RISK : HAVE YOU EVER HAD ANY DIFFICULTY BREATHING OR HIVES AFTER EATING OR HANDLING ANY FRUITS, OR VEGETABLES; SUCH KIWI, BANANAS, STONE FRUITS, OR CHESTNUTSNO LATEX RISK : DO YOU HAVE A PREVIOUS PERSONAL HISTORY OF MORE THAN NINE SURGERIES, SPINA BIFIDA, OR REPEATED CATHERIZATIONS? YES - PLEASE INDICATE : > 9 SURGERIES LATEX RISK : ARE YOU FREQUENTLY EXPOSED TO LATEX PRODUCTS IN YOUR OCCUPATION?NO DATE ASKED : 11/14/2019 CAFFEINE CAFFEINE USE?NO ADVANCE DIRECTIVE ADVANCE DIRECTIVE DISCUSSED WITH PATIENT:YES PT HAS HEALTH CARE PROXY, JAYASHREE FORD [phone] HINDUISM [id number] NONE MARITAL STATUS: . ALCOHOL SCREENING POINTS: 0, INTERPRETATION: NEGATIVE. 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 SEXUAL HX HAD SEX IN THE LAST 12 MONTHS (VAGINAL, ORAL, OR ANAL)?YES WITHMEN ONLY PREVENTION STRATEGIES DISCUSSED:CONDOMS USE PROTECTION?NO HAVE YOU EVER HAD AN STD?NO REVIEWED WITH PATIENT 08/28/19 1531 JS REVIEWED WITH PATIENT 11/08/2019 1547 NLJPRE-PROCEDURE CALL DONE 11/13/19 EM 11/14/2019 1543 REVIEWED WITH PT. AD. HOSPITALIZATION/MAJOR DIAGNOSTIC PROCEDURE SEPSIS, L FOOT ULCER, SUSPECTED COLITIS 08/23/2014 DVT RLL 09/06/2014 SEPTIC SHOCK SECONDARY TO MULTIPLE SKIN ULCERS 10/22/2014 LOW BLOOD SUGERS AND INFECTIONS 11/11/2014 RLL CELLULITUS AND OSTEOMYELITIS 01/06/2015 HYPOTENSION, SYNCOPE 02/21/2015 DIABETIC FOOT ULCER OSTEO 04/30/15 STAPH HOMINIS LINE SEPSIS MSSA CHRONIC OSTEOMELYTIS FOOT 05/15/15 WOUND INFECTION 06/2015 SEPSIS 06/2015 SEPSIS 07/2015 ADMITTED FOR PORT INFECTION 11/2015 C-DIFF 12/2015 LEFT FOOT R/O OSTEOMYELITIS. 05/27/2016 HYPERGLYCEMIA IN AN UNCONTROLLED TYPE I DIABETIC, R SIDED FLANK PAIN, CKD, HYPONATREMIA SECONDARY TO HYPERGLYCEMIA, ANXIETY, DEPRESSION, HYPERTENSION, ASTHMA, HX OF DVT, UTI 08/30-09/03/2016 CELLULITIS LEFT FOOT 01/13/17-01/19/17 CELLULITIS OF THE RIGHT LOWER FOOT, MILD ACUTE RENAL FAILURE 04/12/17-04/14/17 KIDNEY INJURY 10/05 HYPERGYYCEMIA, HYOERTENSION, HYPERKALEMIA, ACUTE KIDNEY INJURY 10/25/2017 DEHYDRATION AND ALTERED MENTAL STATUS 02/14/2018 ACUTE SIGMO-RECTAL ISCHEMIC COLITIS C SEVERE SEPSIS/MELODY I/TME/BLOODY STOOLS/ELEVATED BHG BUT PH 7.6 (WBC ON ADMISSION 17K, PEAK CR 1.7), CONFIRMED BY SIGMOID C BX-REINDL, -BCX X 2, -GI PANEL -UCX, MESENTERIC ARTERIOGRAM DONE BY SRAVAN Hernandez INTERVENTION//CT HE 03/20- LETICIA LOCKETT 10/08/2018 3 DAYS RENAL FAILURE 05/22/2019 RIGHT FOOT CELLULITIS 06/2019 REVIEW OF SYSTEMS REVIEWED BY: PROVIDER: . CONSTITUTIONAL: ANY CHANGE IN YOUR MEDICAL CONDITION? NO . CHILLS NO . FEVER NO . INFECTION: DO YOU HAVE NEW INFECTIONS? NO . DO YOU HAVE HISTORY OF MRSA? YES LEFT FOOT PRIOR TO AMPUTATION 2017 AND NOSE . MUSCULOSKELETAL: ANY NEW PATTERNS OF PAIN OR NUMBNESS? NO . GASTROENTEROLOGY: ANY NEW CHANGE IN BOWEL CONTROL? NO . GENITOURINARY: ANY NEW CHANGE IN BLADDER CONTROL? NO . IS THERE A CHANCE YOU COULD BE ? NO . HEMATOLOGY/LYMPH: DO YOU TAKE ANY BLOOD THINNERS? (FOR EXAMPLE- COUMADIN, PLAVIX, AGGRENOX, PLATEL, PRADAXA, OR XARELTO) YES ELIQUIS . WHEN WAS YOUR LAST DOSE? DATE: 11/09/2019 TIME: 2100 . NEUROLOGY: HAVE YOU FALLEN IN THE PAST 12 MONTHS? NO . ANY NEW EXTREMITY NUMBNESS OR WEAKNESS? NO . CARDIOLOGY: DO YOU HAVE A PACEMAKER OR DEFIBRILLATOR? NO . RESPIRATORY: HAVE YOU BEEN SICK IN THE PAST WEEK? NO . FEVER NO . FLU LIKE SYMPTOMS? NO . COUGH NO . INTEGUMENTARY: DO YOU HAVE ANY RASHES OR OPEN SORES? NO . ALLERGIC/IMMUNO: ARE YOU ALLERGIC TO IV DYE? NO . ANY NEW ALLERGIES? NO . PSYCHIATRIC: DO YOU HAVE THOUGHTS OF HURTING YOURSELF OR SOMEONE ELSE? NO . ARE YOU ABUSED, NEGLECTED, OR IN AN UNSAFE ENVIRONMENT? NO . ENDOCRINOLOGY: ARE YOU DIABETIC? YES GLUCOSE 145 @ 1542 . OTHER: DO YOU NEED ANY PRESCRIPTIONS? NO . IF YES, PLEASE LIST: ____ . ANY NEW PROBLEMS WITH YOUR MEDICATIONS? NO . WHEN DID YOU LAST EAT? 11/13/2019 1900 . WHEN DID YOU LAST DRINK? 11/14/2019 11AM . WHAT DID YOU LAST DRINK? WATER . NAME OF PERSON DRIVING YOU HOME? . DO YOU HAVE ANY OTHER QUESTIONS OR CONCERNS NO . VITAL SIGNS WT 269.6 LBS, HT 70 IN, BMI 38.68 INDEX, BP 158/80 MANUAL, HR 97 /MIN, RR 18 /MIN, TEMP 97.3 F, OXYGEN SAT % 98, BLOOD GLUCOSE LEVEL 157 1300, SAFE IN ENV? (Y/N) Y, LMP: HYSTERM. ROSA MARIA GARCIA, CATTLE STICKER II @ 1429. ASSESSMENTS INTERVERTEBRAL DISC DISORDERS WITH RADICULOPATHY, LUMBOSACRAL REGION - M51.17 (PRIMARY) PROCEDURES PRE PROCEDURE DIAGNOSIS LUMBOSACRAL SPINAL STENOSIS, LUMBOSACRAL DISC DISORDER WITH RADICULOPATHY POST PROCEDURE DIAGNOSIS LUMBOSACRAL SPINAL STENOSIS , LUMBOSACRAL DISC DISORDER WITH RADICULOPATHY PROCEDURE LUMBAR EPIDURAL STEROID INJECTION UNDER FLUOROSCOPIC GUIDANCE SURGEON DR. RONNIE SIMMONS CHEMIST WATER PURIFICATION NONE ANESTHESIA LOCAL PRE PROCEDURE NOTE THE PATIENT HAS A HISTORY OF CHRONIC LOW BACK PAIN. I EVALUATED THE PATIENT AND REVIEWED THE CHART. I WENT OVER THE RISKS, ALTERNATIVES, AND BENEFITS ASSOCIATED WITH THIS PROCEDURE. THE PATIENT WOULD LIKE TO MOVE FORWARD WITH IV SEDATION DUE TO DISCOMFORT, PAIN, AND ANXIETY ASSOCIATED WITH THE PROCEDURE. THE PATIENT WOULD LIKE TO PROCEED AND GIVES CONSENT TO PERFORM THE PROCEDURE. THE PATIENT DENIES UNEXPLAINABLE WEIGHT LOSS, FEVER, CHILLS, OR NEW CHANGES IN URINARY OR BOWEL CONTROL. DESCRIPTION OF PROCEDURE THE PATIENT WAS BROUGHT TO THE PROCEDURE ROOM AND PLACED IN THE PRONE POSITION. THE LUMBOSACRAL AREA WAS CLEANED WITH BETADINE SOLUTION AND DRAPED ASEPTICALLY. THE PROCEDURE WAS DONE UNDER STERILE CONDITIONS. I CHECKED LATERALITY AND THE LEVEL WHERE THE PROCEDURE WAS GOING TO BE PERFORMED WITH THE PATIENT AND THE SUPPORTING STAFF AT THE MOMENT OF THE TIME OUT IN THE PROCEDURE ROOM. UNDER FLUOROSCOPIC GUIDANCE, THE TARGET POINT WAS SELECTED AT THE INTERLAMINAR LEVEL OF L5-S1. LIDOCAINE WAS USED TO NUMB THE SKIN AND THE SUBCUTANEOUS TISSUE BELOW IT. EPIDURAL TUOHY NEEDLE, 16-GAUGE, WAS ADVANCED UNDER FLUOROSCOPIC GUIDANCE AND FOLLOWING PATIENT FEEDBACK UNTIL THE EPIDURAL SPACE WAS REACHED, 7 CM DEEP INTO THE SKIN BY THE LOSS OF RESISTANCE TECHNIQUE. I ADVANCED A 19-GAUGE EPIMED CATHETER THROUGH A 16-GAUGE NEEDLE TO THE RIGHT OF L5 AREA. ISOVUE M DYE 30%, 0.25 ML, WAS INJECTED SHOWING ADEQUATE SPREAD OF THE DYE. THEN, A SOLUTION OF 3 ML OF NORMAL SALINE WITH DEPO-MEDROL 60 MG WAS INJECTED SLOWLY FOLLOWING PATIENT FEEDBACK. THERE WAS NO EVIDENCE OF BLOOD, PARESTHESIA OR CEREBROSPINAL FLUID DURING THE PROCEDURE. THE PATIENT WAS SENT TO THE RECOVERY ROOM. THE PATIENT WAS MOVING THE EXTREMITIES AND DOING WELL. THERE WAS NO COMPLICATION DURING THE PROCEDURE. PATIENT RECEIVED VERSED 1 MG AND FENTANYL 150 MCG IV DIVIDED DOSES. FACE TO FACE TIME WAS 20 MINUTES. FLUOROSCOPY TIME WAS 26 SECONDS. POST PROCEDURE NOTE THE PATIENT WILL BE SEEN IN A FOLLOW UP IN THE NEXT FEW WEEKS. I AM LOOKING FOR LONG LASTING PAIN RELIEF WITH THIS INJECTION. INSTRUCTIONS WERE GIVEN, QUESTIONS WERE ANSWERED, AND THE PATIENT EXPRESSED UNDERSTANDING AND AGREES WITH THE PLAN. I, KIRSTEN JO, DOCUMENTED THE ABOVE INFORMATION ACTING A SCRIBE FOR DR. SIMMONS. I HAVE REVIEWED THE ABOVE DOCUMENT, WRITTEN BY KIRSTEN THOMAS AND I VERIFY THAT IT IS ACCURATE. DIAGNOSTIC IMAGING [facility] FLUORO GUIDE SPINE INJECTION (PAIN)[id number] PROCEDURE CODES 00407 LUMBAR/SACRAL W/ IMAGING 6045F RADXPS IN END [id number] PXD [id number] MOD SED SAME PHYS/QHP 5/>YRS DISPOSITION & COMMUNICATION FOLLOW UP 2 WEEKS ELECTRONICALLY SIGNED BY ORNNIE SIMMONS MD, MD ON 11/22/2019 AT 05:44 PM EST DISCLAIMER : THIS IS A VISIT SUMMARY EXTRACTED FROM THE [employer] CHART. IT IS NOT A COPY OF THE [employer] PROGRESS NOTE. MTDD
== END ==
LOC: M PAIN 14:00
PROVIDERS: ATTEND Anesthesiology
DX: M51.17 Intervertebral disc disorders with radiculopathy, lumbosacral region (principal)
CPT/HCPCS: 62323; 99152; J1030; J2250; J3010; Q9967

== ENCOUNTER → 2019-12-13 | Outpatient (REF) | payer OTHER ==
[~2019-12-13] MED LIST changes: -ISOVUE-M 300 61% 15ML VIAL (Q9967) As Ordered ONE; -LIDOCAINE 1% SDV INJ 30 ML VIAL As Ordered ONE; -MIDAZOLAM INJ 2 MG/2 ML VIAL (J2250) As Ordered ONE; -fentaNYL 100 MCG/2 ML INJECTION (J3010) As Ordered ONE; -methylPREDNISolone SUSP 40 MG/ML (DEPO-medrol) VIAL (J1030) As Ordered ONE
[2019-12-13 09:15] LABS: CALCIUM LEVEL 8.4 MG/DL (8.5-10.1); CREATININE FOR GFR 1.57 MG/DL (0.55-1.30); GLOMERULAR FILTRATION RATE 37.1 (>51); POTASSIUM SERUM 3.9 MEQ/L (3.5-5.1)
== END ==
LOC: M SFHCPLAZ 07:56
PROVIDERS: ATTEND Family Medicine
DX: E11.22 Type 2 diabetes mellitus with diabetic chronic kidney disease (principal)

== ENCOUNTER → 2020-01-11 | Outpatient (CLI) | payer OTHER | LOC: M PAIN 09:15 | PROVIDERS: ATTEND Family Medicine | DX: Z53.20 Procedure and treatment not carried out because of patient's decision for unspecified reasons (principal) ==

== ENCOUNTER → 2020-02-11 | Outpatient (CLI) | payer OTHER ==
[~2020-02-11] MED LIST changes: +CYCL-707 PO; -CYCL10TA PO
--- NOTE | 2020-02-11 16:20 | REPPI ---
TWO-VIEW CHEST: REASON FOR EXAM: Cough. COMPARISON: 07/15/2019 FINDINGS: The superior mediastinal structures are midline. The cardiac silhouette is unremarkable in size, shape, and position. The diaphragmatic surfaces of the lungs are regular, and the costophrenic angles are clear. The pulmonary juarez are clear. The imaged osseous structures are intact. IMPRESSION: There is no acute cardiopulmonary disease. Electronically Signed by Figueroa Corcoran DO 02/11/2020 04:21 P
== END ==
LOC: M PLAIMG 12:24
PROVIDERS: ATTEND Family Medicine
DX: R05 Cough (principal)

== ENCOUNTER → 2020-02-11 | Outpatient (CLI) | payer OTHER | LOC: M PLALAB 12:29 | PROVIDERS: ATTEND Nurse Practitioner Family | DX: D83.9 Common variable immunodeficiency, unspecified (principal) ==

== ENCOUNTER → 2020-02-11 | Outpatient (REF) | payer OTHER ==
[2020-02-11 15:26] LABS: CALCIUM LEVEL 9.1 MG/DL (8.5-10.1); CREATININE FOR GFR 1.91 MG/DL (0.55-1.30); GLOMERULAR FILTRATION RATE 29.6 (>51); POTASSIUM SERUM 4.4 MEQ/L (3.5-5.1)
[2020-02-11 15:38] LABS: HEMOGLOBIN A1c 8.8 %
== END ==
LOC: M SFHCPLAZ 11:54
PROVIDERS: ATTEND Family Medicine
DX: E11.59 Type 2 diabetes mellitus with other circulatory complications (principal); E11.22 Type 2 diabetes mellitus with diabetic chronic kidney disease

== ENCOUNTER → 2020-02-19 | Outpatient (REF) | payer OTHER ==
[2020-02-19 19:25] LABS: CALCIUM LEVEL 8.3 MG/DL (8.5-10.1); CREATININE FOR GFR 1.62 MG/DL (0.55-1.30); GLOMERULAR FILTRATION RATE 35.8 (>51); POTASSIUM SERUM 3.9 MEQ/L (3.5-5.1)
== END ==
LOC: M PLALAB 15:07
PROVIDERS: ATTEND Family Medicine
DX: E11.22 Type 2 diabetes mellitus with diabetic chronic kidney disease (principal)

== ENCOUNTER → 2020-03-25 | Outpatient (CLI) | payer OTHER ==
[~2020-03-25] MED LIST changes: +VITA50005 PO
--- NOTE | 2020-03-25 21:56 | ECGEPIP ---
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
== END ==
LOC: M EKG 10:54
PROVIDERS: ATTEND Anesthesiology
DX: Z01.818 Encounter for other preprocedural examination (principal); I49.9 Cardiac arrhythmia, unspecified

== ENCOUNTER → 2020-03-25 | Outpatient (CLI) | payer OTHER | LOC: M LABSMTC 10:20 | PROVIDERS: ATTEND Anesthesiology | DX: Z03.818 Encounter for observation for suspected exposure to other biological agents ruled out (principal); Z11.59 Encounter for screening for other viral diseases | CPT/HCPCS: C9803; U0003 ==

== ENCOUNTER 2020-03-28 07:33 | Day surgery (SDC) | payer OTHER ==
[~2020-03-28] VITALS: Ht 177.8 cm; Wt 93.9 kg
[~2020-03-28 07:33] MED LIST changes: +LR 1,000 ML IV SCH; +ceFAZolin SOD 2 GM in IV 1 EA IV ONE
[2020-03-28] MEDS ORDERED: fentaNYL 100 MCG/2 ML INJECTION (J3010) As Ordered ONE (08:42)
[2020-03-28] MEDS ORDERED: propofoL 200 MG/20 ML VIAL As Ordered ONE ×2 (08:42→11:35)
[2020-03-28] MEDS ORDERED: LIDOCAINE 2% 100MG/5ML SDV (FOR ANES.) As Ordered ONE (08:42)
[2020-03-28] MEDS ORDERED: MIDAZOLAM INJ 2MG/2ML VIAL (J2250 PER 1MG) As Ordered ONE (08:42)
[2020-03-28] MEDS ORDERED: ONDANSETRON 4MG/2ML VIAL As Ordered ONE (08:42)
[2020-03-28] MEDS ORDERED: dexameTHASONE 4 MG/ML 1ML VIAL (J1100 PER 1MG) As Ordered ONE (08:42)
[2020-03-28] MEDS ORDERED: DEXTROSE 50% 50 ML SYRINGE IV ONE (09:00)
[2020-03-28] MEDS ORDERED: ACETAMINOPHEN 1000MG 100ML IV BTL (OFIRMEV) (J0131 PER 10MG) As Ordered ONE (09:07)
[2020-03-28] MEDS ORDERED: BUPIVACAINE/EPIN 0.25% 30 ML VIAL As Ordered ONE (09:08)
[2020-03-28] MEDS ORDERED: METOCLOPRAMIDE INJ 10MG/2ML VIAL (J2765 PER 1) As Ordered ONE (09:25)
[2020-03-28] MEDS ORDERED: PHENYLephrine HCL 500 MCG/5 ML (100MCG/ML) SYRINGE (J2370) As Ordered ONE (10:39)
[2020-03-28] MEDS ORDERED: ePHEDrine SULFATE 25 MG/5 ML(5MG/ML) SYRINGE As Ordered ONE (10:39)
[2020-03-28] MEDS ORDERED: fentaNYL 100 MCG/2 ML INJECTION (J3010) IV PRN (11:15)
[2020-03-28] MEDS ORDERED: oxyCODONE 5MG TAB PO PRN (11:15)
[2020-03-28] MEDS ORDERED: LR 1,000 ML IV SCH (11:15)
[2020-03-28] MEDS ORDERED: ONDANSETRON 4MG/2ML VIAL IV PRN (11:15)
[2020-03-28] MEDS ORDERED: HYDROMORPHONE HCL 0.5 MG/ 0.5 ML SYRINGE (J1170 PER 1) IV PRN (11:15)
[2020-03-28] MEDS: oxyCODONE 5MG TAB PO PRN ×2 (11:48→12:28)
[2020-03-28 12:00] VITALS: BP 123/58
--- NOTE | 2020-03-28 13:17 | RO ---
DATE OF PROCEDURE: 03/28/2020 PREOPERATIVE DIAGNOSES: Right recurrent cubital tunnel syndrome. Right recurrent carpal tunnel syndrome. Right Guyon tunnel syndrome. POSTOPERATIVE DIAGNOSES: Right recurrent cubital tunnel syndrome. Right recurrent carpal tunnel syndrome. Right Guyon tunnel syndrome. PROCEDURE: Right open carpal tunnel release with hypothenar flap of median nerve with extensive neurolysis of the median nerve3. Open Guyon tunnel release. Open cubital tunnel release with extensive neurolysis of ulnar nerve at the elbow with placement of nerve wrap. SURGEON: Dr. 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 ANESTHESIA: General. INDICATIONS: This is a 49-year-old female that had suffered some recurrence carpal and cubital tunnel syndromes with new onset Guyon tunnel syndromes. She has a strong history of diabetes that she has fought to lower her A1c so that we agreed upon levels so that we can conduct surgery. I discussed at great length with the patient that she has had at least two revision surgeries on her wrist and elbow along with her strong history of diabetes makes her at high risk of infection and also high risk of inadequate relief. The patient expressed understanding and agreed with that plan and wished to proceed. BLOOD LOSS: Minimal. TOURNIQUET TIME: 1 hour. COMPLICATIONS: None. OPERATIVE PROCEDURE: The patient was brought back to the operating room (OR) in a supine position. Underwent general anesthesia, at which point, the right arm was prepped and draped in the usual fashion. We then elevated the tourniquet up to 250 mmHg. We made an incision using her old carpal tunnel incision in her mid palm that curved ulnarly at the proximal wrist crease and continued it 1-2 cm into [place] skin. At which point, we identified the median nerve and followed it through the carpal tunnel. It was encased in extensive scar tissue, hence the modifier 22 for extensive neurolysis due to the fact that extensive time and effort had to be spent completely removing scar from around the nerve. Once we had adequately neurolysed, we then turned our attention to identify the ulnar nerve deep to flexor carpi ulnaris (FCU). We followed the ulnar nerve and ulnar arteries through the Guyon tunnel and released exquisitely into the palm. At which point, we mobilized the hypothenar fat flap and wrapped around the median. We irrigated the wound thoroughly, closed with #3-0 Vicryl and #3-0 nylon. At which point, we turned our attention to the elbow. We then used the previous incision on the medial aspect of the elbow and extended it 1-2 cm proximally and distally to identify [place] tissue. We identified the ulnar nerve of the proximal at the proximal extent of the excision anterior to the medial triceps and followed it distally. It was encased significantly with significant scars circumferentially around the nerve. This hence the modifier 22 for the extensive time and effort was spent in completely removing the scar surrounding the nerve with a thorough neurolysis, and once we had healthy nerve tissue we followed it through the nerve tunnel and through the superficial and deep FCU. Once we were happy with the release, we transposed the nerve anteriorly and then encased it into an [employer] nerve graft. We were very happy with our release and scar removal. We then irrigated the wound thoroughly, closed with #3-0 Vicryl, #3-0 nylon. Placed dressing with Adaptic gauze and Kerlix over the entire arm and Murali bandage. The tourniquet was let down. The patient was awakened and taken to the post anesthesia care unit (PACU) in stable condition. Postop Plan: The patient will have pain control and range of motion. We will wait until 3 postoperatively to remove her sutures. LAURIE
== END 2020-03-28 12:36 | disposition home or self-care (01) ==
LOC: M SDC 07:33
PROVIDERS: ATTEND Orthopaedic Surgery Hand Surgery
DX: G56.21 Lesion of ulnar nerve, right upper limb (principal); G56.01 Carpal tunnel syndrome, right upper limb; G57.51 Tarsal tunnel syndrome, right lower limb; E10.9 Type 1 diabetes mellitus without complications; M10.9 Gout, unspecified; J44.9 Chronic obstructive pulmonary disease, unspecified; I10 Essential (primary) hypertension; I50.9 Heart failure, unspecified; Z79.4 Long term (current) use of insulin; F31.9 Bipolar disorder, unspecified; G47.30 Sleep apnea, unspecified; G43.909 Migraine, unspecified, not intractable, without status migrainosus; Z88.0 Allergy status to penicillin; Z88.2 Allergy status to sulfonamides; Z91.040 Latex allergy status; Z91.018 Allergy to other foods; Z88.8 Allergy status to other drugs, medicaments and biological substances
CPT/HCPCS: 14040; 64718; 64719; 64721; C1762; J0131; J1100; J2250; J2370; J2405; J2765; J3010

== ENCOUNTER → 2020-04-02 | Outpatient (CLI) | payer OTHER ==
[~2020-04-02] MED LIST changes: +ALLO10TA PO; -AMIT25TA PO; +AMIT25TA17 PO; -AMLO10TA5 PO; +AMLO1TAB24 PO; +AMLO1TAB25 PO; -AMLO5TAB6 PO; -LR 1,000 ML IV SCH; +MONT10TA10 PO; -MONT10TA4 PO; +NOVOINJ12 SC; -QUET1TAB10 PO; +QUET300T2 PO; +ROSU10TA6; -ceFAZolin SOD 2 GM in IV 1 EA IV ONE
== END ==
LOC: M PT 14:34
PROVIDERS: ATTEND Family Medicine
DX: Z89.512 Acquired absence of left leg below knee (principal); M54.41 Lumbago with sciatica, right side

== ENCOUNTER → 2020-04-29 | Outpatient (CLI) | payer OTHER ==
[~2020-04-29] MED LIST changes: -ALLO10TA PO; +AMIT25TA PO; -AMIT25TA17 PO; -MONT10TA10 PO; +MONT10TA4 PO; -NOVOINJ12 SC; +QUET1TAB10 PO; -QUET300T2 PO
--- NOTE | 2020-05-01 01:36 | ECWPNPC ---
PATIENT NAME: JOSS FORD : 1970 GENDER: FEMALE VISIT DATE: 04/29/2020 DISCHARGE DATE: 04/29/20 1117 VISIT LOCKED DATE TIME: PHYSICIAN: DEBRA PEDRO RESOURCE: DEBRA PEDRO REASON FOR APPOINTMENT 1. POST PROCEDURE HISTORY OF PRESENT ILLNESS GENERAL: - 49-YEAR-OLD FEMALE IN FOR POST PROCEDURAL FOLLOW-UP. PATIENT HAD A LESI PERFORMED IN OCTOBER WHICH WAS INEFFECTIVE PER PATIENT REPORT. SHE RATES HER PAIN CURRENTLY AT A 6 OUT OF 10 AND DESCRIBES IT SHARP, STABBING, SHOOTING, AND CONSTANT. FALL RISK SCREENING: SCREENING :TWO OR MORE FALLS WITHOUT INJURY IN THE PAST YEAR PAIN SCREENING: PATIENT HAS A COMPLAINT OF ACUTE OR CHRONIC PAIN :YES PCB-UIISIEJVB-4/10, HKED-CXTHHUUCL-4/10, TODAY-03/26 LOCATION OF PAIN:LOW BACK INTENSITY OF PAIN (SCALE OF 1 TO 10):6 WHAT DOES YOUR PAIN FEEL LIKE:SHARP, STABBING, SHOOTING SHOOTING DOWN LEGS WHEN WALKING DURATION:CONTINOUS, CONSTANT, ALL DAY PAIN IS INCREASED BY:ACTIVITIES, PROLONGED STANDING PAIN IS DECREASED BY:USE OF PAIN MEDICATIONS HEATING PAD PAIN HAS INTERFERED WITH THE FOLLOWING:MOOD, HOUSEWORK, RELATIONSHIP WITH OTHERS, ENJOYMENT OF LIFE PLAN/GOALS/TREATMENT/INTERVENTION/FOLLOW UP:SEE PLAN NURSING NOTE: PT. STATED PROCEDURE DID NOT HELP AT ALL. PAIN LEVEL IS STILL THE SAME NO CHANGES.-. PAIN CENTER INTAKE QUESTIONS: DO YOU HAVE A HISTORY OF MRSA? :NO DO YOU TAKE A BLOOD THINNERS? :YES GERI 04/29/20@ 6:30AM DO YOU HAVE ANY BLEEDING DISORDERS? :NO ANY NEW NUMBNESS OR WEAKNESS IN YOUR LEGS OR ARMS? :NO ANY PACEMAKER,DEFIBRILLATOR, OR DORSAL COLUMN STIMULATOR? :NO DO YOU HAVE ANY RASHES OR OPEN SORES? :YES CARPEL TUNNEL RECONSTRUCTION 04/27/20 ARE YOU ALLERGIC TO IV DYE? :NO ARE YOU DIABETIC? :YES ANY NEW PROBLEMS WITH YOUR MEDICATIONS? :NO HAVE YOU RECEIVED A VACCINE IN THE PAST 30 DAYS? :NO DO YOU PLAN TO RECEIVE A VACCINE IN THE NEXT 21 DAYS? :NO DO YOU NEED ANY PRESCRIPTION? :NO DO YOU TAKE ANY IMMUNOSUPPRESSIVE MEDICATIONS? :NO IS THERE A CHANCE YOU COULD BE ? :NO ARE YOU BREAST FEEDING? :NO CURRENT MEDICATIONS TAKING HYDROCODONE-ACETAMINOPHEN 10-325 MG TABLET 1 TABLET NEEDED ORALLY EVERY 4 HRS TAKING LUNESTA 3 MG TABLET 1 TABLET IMMEDIATELY BEFORE BEDTIME ORALLY ONCE A DAY TAKING SYMBICORT 80-4.5 MCG/ACT AEROSOL 2 PUFFS INHALATION TWICE A DAY TAKING PROAIR HFA 108 (90 BASE) MCG/ACT AEROSOL SOLUTION 2 PUFFS NEEDED INHALATION EVERY 6 HRS TAKING METHYLPHENIDATE HCL ER (LA) 20 MG CAPSULE EXTENDED RELEASE 24 HOUR 1 CAPSULE IN THE MORNING ORALLY ONCE A DAY TAKING LYRICA 300 MG CAPSULE 1 CAPSULE ORALLY TWICE A DAY (PAIN CLINIC) TAKING ZANTAC 150 MG TABLET 1 TABLET AT BEDTIME ORALLY ONCE A DAY TAKING SINGULAIR 10 MG TABLET 1 TABLET ORALLY ONCE A DAY TAKING CYMBALTA 60 MG CAPSULE DELAYED RELEASE PARTICLES 2 CAPSULES ORALLY DAILY TAKING VALACYCLOVIR HCL 1 GM TABLET 1 TABLET ORALLY EVERY 24 HRS TAKING XOPENEX 1.25 MG/3ML NEBULIZATION SOLUTION 3 ML INHALATION EVERY 6 HOURS NEEDED TAKING TAMSULOSIN HCL 0.4 MG CAPSULE EXTENDED RELEASE ORALLY DAILY HS TAKING TRAZODONE HCL 100 MG TABLET 2 TABLETS ORALLY ONCE A DAY AT HS TAKING DEXILANT 60 MG CAPSULE DELAYED RELEASE 1 CAPSULE ORALLY ONCE A DAY TAKING ROSUVASTATIN CALCIUM 10 MG TABLET 1 TABLET ORALLY ONCE A DAY TAKING SEROQUEL 300 MG TABLET 2 TABLET ORALLY BEFORE BEDTIME TAKING ROPINIROLE HCL 2 MG TABLET 1 TABLET AT 8 PM AND AT MIDNIGHT ORALLY BID TAKING ELIQUIS 5 MG TABLET 1 TABLET ORALLY BID TAKING CETIRIZINE HCL 10 MG TABLET 1 TABLET ORALLY ONCE A DAY TAKING CHOLECALCIFEROL 15237 UNIT CAPSULE 1 CAPSULE ORALLY ONCE A WEEK ON TUESDAY TAKING HUMALOG KWIKPEN 200 UNIT/ML SOLUTION PEN-INJECTOR DIRECTED SUBCUTANEOUS TID PER SLIDING SCALE, NOTES: 11/13 2099 30 UNITS TAKING TRESIBA 200 U/ML 160 UNITS SUBCUTANEOUSLY DAILY, NOTES: 11/13 2099 TAKING CLOBETASOL PROPIONATE 0.05 % SOLUTION 1 APPLICATION TO AFFECTED AREA EXTERNALLY TWICE A DAY TO SCALP TAKING KETOCONAZOLE 2 % SHAMPOO 5 APPLICATIONS TO SCALP EXTERNALLY ONCE A DAY AND LET SIT FOR 5 MINUTES TAKING BACTROBAN 2% OINTMENT DIRECTED APPLIED TOPICALLY TWICE A DAY TAKING HIBICLENS 4 % LIQUID DIRECTED EXTERNALLY TWICE A DAY TAKING COLLAGEN ULTRA - CAPSULE 1 CAP ORALLY DAILY TAKING CYCLOBENZAPRINE HCL 10 MG TABLET 1 TAB ORALLY THREE TIMES A DAY PRN MUSCLE SPASMS TAKING RESTASIS 0.05 % EMULSION 1 DROP INTO AFFECTED EYE OPHTHALMIC THREE TIMES A DAY TAKING MAGNESIUM CHLORIDE 64 MG TABLET DELAYED RELEASE 1 TABLET ORALLY DAILY TAKING NYSTATIN POWDER 417395 UNIT POWDER POWDER EXTERNALLY TO BILATERAL BERAST AND ABD PANNUS DAILY NEEDED DAILY TAKING WHEELCHAIR - MISCELLANEOUS DIRECTED DX Z89.51, M54.41 TAKING MISC. DEVICES - MISCELLANEOUS DIRECTED REPAIR AND REPLACE PROSTHETIC AND LINERS NEEDED; DX Z89.51 TAKING MAY USE - - WHEEL CHAIR DX CODE Z89.512 _ TAKING REFRESH 1 % SOLUTION 1 DROP INTO AFFECTED EYE NEEDED OPHTHALMIC FOUR TIMES DAILY PRN TAKING BETAMETHASONE VALERATE 0.1 % CREAM 1 APPLICATION TO AFFECTED AREA EXTERNALLY ONCE A DAY TAKING BD PEN MINI - MISCELLANEOUS DIRECTED E11.9 QID TAKING PROBIOTIC - TABLET DELAYED RELEASE ORALLY TAKING EPIPEN 0.3 MG/0.3ML DEVICE 1 INJECTION INJECTION NEEDED FOR ALLERGIC REACTION TAKING FREESTYLE ANDREA 14 DAY SENSOR - MISCELLANEOUS DIRECTED DX E11.9 TAKING ZOFRAN 8 MG TABLET 1 TAB PRN NAUSEA ORALLY EVERY 12 HOURS TAKING TORSEMIDE 20 MG TABLET 2 TAB ORALLY DAILY TAKING BENAZEPRIL HCL 10 MG TABLET TAKE ONE TABLET BY MOUTH EVERY DAY ORALLY DAILY, NOTES: 11/13 2099 TAKING AMLODIPINE BESYLATE 2.5 MG TABLET 1 TABLET ORALLY ONCE A DAY, NOTES: 11/13 2099 TAKING CARVEDILOL 25 MG TABLET 1 TAB ORALLY BID, NOTES: 11/14 0900 TAKING WHEELCHAIR - MISCELLANEOUS DIRECTED POWER WHEELCHAIR; DX M54.41, G56.21, Z89.512, M62.81 MEDICATION LIST REVIEWED AND RECONCILED WITH THE PATIENT PAST MEDICAL HISTORY 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 DELA CRUZ TEMPORAL LOBE SEIZURES IN , NONE RECENTLY GERD, HIATAL HERNIA, GASTROPARESISI - DR. TAVERAS HERPES SIMPLEX II VIA PCR ON LESIONS ON BACK FATTY LIVER + FVL, RECURRENT DVTS TYPE 2 DIABETES MELLITUS WITH OTHER CIRCULATORY COMPLICATIONS - NEFTALY HX RECTO-SIGMOID ISCHEMIC COLITIS 03/2018 CONFIRMED BY SIGMOID C BX-JANETH TAVERASSNTERIC ARTERIOGRAM S INTERVENTION HX URINARY RETENTION - [facility] UROLOGY HX MCCOLLUM'S PALSY - NEURO PA - NONCOMPLIANT WITH CPAP CKD3 - NEPHROLOGY HISTORY OF MRSA RLS, NOCTURNAL LEG CRAMPS IRON DEFICIENCY ANEMIA ALLERGIES LATEX (FOR ALLERGY USE ONLY): ANAPHYLAXIS - ALLERGY PENICILLIN (FOR ALLERGIES USE ONLY): ANAPHYLAXIS - ALLERGY SULFA (FOR ALLERGY USE ONLY): HIVES - ALLERGY TRICOR: HIVES - ALLERGY GLUCOPHAGE: HIVES - ALLERGY LIPITOR: HIVES - ALLERGY ZOCOR: HIVES - ALLERGY FRESH PINEAPPLE : SWOLLEN LIPS/ SORES IN MOUTH - ALLERGY KEFLEX: HIVES - ALLERGY SURGICAL HISTORY GALLBLADDER 1995 CERVICAL DISCECTOMY C5-6 FUSION 1994 HYSTERECTOMY FOR PROLAPSE/ENDOMETRIOSIS 2000 LUMPECTOMY RIGHT BREAST 2004 SKIN LESION REMOVED 2004 MULTIPLE DIAGNOSTIC LAPAROSCOPIES VENOUS PORTACATH LEFT CHEST X2 PICC LINE LEFT & RIGHT UPPER ARM X3 APPENDECTOMY 2009 EXCISED ABCESSED WOUNDS X3 DUE TO INFECTION. ULNAR RELEASE RIGHT ARM/HAND CHANI CATH X2 STOOL TRANSPLANT PORT PLACED 12/23/2016 ULNAR RELEASE AND CARPAL TUNNEL RELEASE RIGHT ARM WITH REVISION: DR. RECINOS LEFT CHARCOT FOOT DEBRIDEMENT: DR. LILLY 02/2017 LEFT BKA FOR CHRONIC WOUND/OSTEOMYELITIS 05/2017 EGD- GASTRIC POLYP RESECTED; DR. TAVERAS 06/2018 COLONOSCOPY - SIGMOID ULCER; DR. TAVERAS 06/2018 EGD - NORMAL; DR. TAVERAS 10/2018 FAMILY HISTORY FATHER: 82 YRS, HEART ISSUES, PACEMAKER, PROSTATE CANCER MOTHER: 80 YRS, OSTEOPOROSIS, HTN, STROKE 2X SIBLINGS: ALIVE 49,48 YRS, DIABETES 2 BROTHER(S) , 5 SISTER(S) . BROTHER WITH TYPE I DIABETESSISTER WITH HYPERTENSIONDENIES ANY FH OF MELANOMA OR PANCREATIC CANCERS. SOCIAL HISTORY GENERAL: TOBACCO USE ARE YOU A:CURRENT SMOKER ARE YOU INTERESTED IN QUITTING?THINKING ABOUT QUITTING COUNSELED THE PATIENT ON SMOKING CESSATION, EDUCATION [id number]/14/2020 HOW MANY CIGARETTES A DAY DO YOU SMOKE?11-20 HOW SOON AFTER YOU WAKE UP DO YOU SMOKE YOUR FIRST CIGARETTE?AFTER 60 MIN HOW OFTEN DO YOU SMOKE CIGARETTES?EVERY DAY PATIENT COUNSELED ON THE DANGERS OF TOBACCO USE AND URGED TO QUIT:04/29/2020 SMOKING CESSATION INFORMATION GIVEN04/29/2020 LATEX QUESTIONNAIRE LATEX ALLERGY : HAVE YOU EVER DEVELOPED ANY TYPE OF REACTION AFTER HANDLING LATEX PRODUCTS SUCH RUBBER GLOVES, CONDOMS, DIAPHRAGMS, BALLOONS, SOCKS, OR UNDERWEAR?YES LATEX ALLERGY : HAVE YOU EVER DEVELOPED ANY TYPE OF REACTION DURING OR AFTER DENTAL APPOINTMENT, VAGINAL/RECTAL EXAMINATION, SURGICAL PROCEDURE, OR ANY OTHER EXPOSURE?YES - PLEASE INDICATE :RUBBER GLOVES, CONDOMS, BALLOONS - PLEASE INDICATE :VAGINAL EXAM, RECTAL EXAM DATE ASKED : 11/14/2019 LATEX RISK : HAVE YOU EVER HAD ANY DIFFICULTY BREATHING OR HIVES AFTER EATING OR HANDLING ANY FRUITS, OR VEGETABLES; SUCH KIWI, BANANAS, STONE FRUITS, OR CHESTNUTSNO LATEX RISK : DO YOU HAVE A PREVIOUS PERSONAL HISTORY OF MORE THAN NINE SURGERIES, SPINA BIFIDA, OR REPEATED CATHERIZATIONS? YES - PLEASE INDICATE : > 9 SURGERIES LATEX RISK : ARE YOU FREQUENTLY EXPOSED TO LATEX PRODUCTS IN YOUR OCCUPATION?NO BMI CARE GOAL FOLLOW-UP ABOVE NORMAL BMI FOLLOW-UPLIFESTYLE EDUCATION REGARDING DIET ALCOHOL SCREENING POINTS: 0, INTERPRETATION: NEGATIVE. RECREATIONAL DRUG USE DENIES. CAFFEINE CAFFEINE USE?NO SEXUAL HX HAD SEX IN THE LAST 12 MONTHS (VAGINAL, ORAL, OR ANAL)?YES WITHMEN ONLY PREVENTION STRATEGIES DISCUSSED:CONDOMS USE PROTECTION?NO HAVE YOU EVER HAD AN STD?NO HIV / HEP-C SCREENING HIV TEST OFFERED TO PATIENT:NO HEP-C TEST OFFERED TO PATIENT:NO DENOMINATIONAL [id number] NONE LANGUAGE LANGUAGES SPOKEN:CITIZ[place] OF [place] EDUCATION SOME COLLEGE. LEARNING BARRIERS / SPECIAL NEEDS CHANGE FROM LAST VISIT?NO BARRIERS TO LEARNING?NO HEARING IMPAIRED?NO VISION IMPAIRED?YES COGNITIVELY IMPAIRED?NO :CORRECTIVE LENSES READINESS TO LEARN?YES LEARNING PREFERENCES?NO LEARNING CAPABILITIES PRESENT?YES EMOTIONAL BARRIERS?NO SPECIAL DEVICES?YES :CANE, WALKER, WHEELCHAIR LEFT LEG PROSTHETIC WAGON DRILLER NEEDED?NO DOMESTIC VIOLENCE DO YOU FEEL SAFE IN YOUR ENVIRONMENT?YES OCCUPATION: UNEMPLOYED. DIET: CARBOHYDRATE CONTROLLED. EXERCISE: NO REGULAR EXERCISE. MARITAL STATUS: . OTHERS AT HOME: SPOUSE. PAIN CLINIC PFS, CLERGY, PUBLIC HEALTH REFERRALS HAS THE PATIENT BEEN EDUCATED REGARDING HIS/HER PLAN OF CARE?YES EDUCATED PT REGARDING PROCEDURE, PT ACKNOWLEDGED UNDERSTANDING. HAS THE PATIENT BEEN EDUCATED REGARDING PAIN, THE RISK FOR PAIN, THE IMPORTANCE OF EFFECTIVE PAIN MANAGEMENT, AND THE PAIN ASSESSMENT PROCESS?YES HOUSING: OWNS HOME. ADVANCE DIRECTIVE ADVANCE DIRECTIVE DISCUSSED WITH PATIENT:YES PT HAS HEALTH CARE PROXY, JAYASHREE FORD [phone] REVIEWED WITH PATIENT 08/28/19 1531 JS REVIEWED WITH PATIENT 11/08/2019 1547 NLJPRE-PROCEDURE CALL DONE 11/13/19 EM 11/14/2019 1543 REVIEWED WITH PT. AD. HOSPITALIZATION/MAJOR DIAGNOSTIC PROCEDURE SEPSIS, L FOOT ULCER, SUSPECTED COLITIS 08/23/2014 DVT RLL 09/06/2014 SEPTIC SHOCK SECONDARY TO MULTIPLE SKIN ULCERS 10/22/2014 LOW BLOOD SUGERS AND INFECTIONS 11/11/2014 RLL CELLULITUS AND OSTEOMYELITIS 01/06/2015 HYPOTENSION, SYNCOPE 02/21/2015 DIABETIC FOOT ULCER OSTEO 04/30/15 STAPH HOMINIS LINE SEPSIS MSSA CHRONIC OSTEOMELYTIS FOOT 05/15/15 WOUND INFECTION 06/2015 SEPSIS 06/2015 SEPSIS 07/2015 ADMITTED FOR PORT INFECTION 11/2015 C-DIFF 12/2015 LEFT FOOT R/O OSTEOMYELITIS. 05/27/2016 HYPERGLYCEMIA IN AN UNCONTROLLED TYPE I DIABETIC, R SIDED FLANK PAIN, CKD, HYPONATREMIA SECONDARY TO HYPERGLYCEMIA, ANXIETY, DEPRESSION, HYPERTENSION, ASTHMA, HX OF DVT, UTI 08/30-09/03/2016 CELLULITIS LEFT FOOT 01/13/17-01/19/17 CELLULITIS OF THE RIGHT LOWER FOOT, MILD ACUTE RENAL FAILURE 04/12/17-04/14/17 KIDNEY INJURY 10/05 HYPERGYYCEMIA, HYOERTENSION, HYPERKALEMIA, ACUTE KIDNEY INJURY 10/25/2017 DEHYDRATION AND ALTERED MENTAL STATUS 02/14/2018 ACUTE SIGMO-RECTAL ISCHEMIC COLITIS C SEVERE SEPSIS/MELODY I/TME/BLOODY STOOLS/ELEVATED BHG BUT PH 7.6 (WBC ON ADMISSION 17K, PEAK CR 1.7), CONFIRMED BY SIGMOID C BX-REINDL, -BCX X 2, -GI PANEL -UCX, MESENTERIC ARTERIOGRAM DONE BY SRAVAN Hernandez INTERVENTION//CT HE 03/20- LETICIA LOCKETT 10/08/2018 3 DAYS RENAL FAILURE 05/22/2019 RIGHT FOOT CELLULITIS 06/2019 REVIEW OF SYSTEMS CONSTITUTIONAL: ANY RECENT FEVER NO . CHILLS NO . WEIGHT CHANGE OF UNKNOWN REASONS NO . GASTROENTEROLOGY: NEW UNEXPLAINABLE CHANGES IN BOWEL CONTROL NO . CONSTIPATION NO . GENITOURINARY: ANY NEW CHANGE IN BLADDER CONTROL? NO . NEUROLOGY: NEW ONSET DIZZINESS OR NEUROLOGICAL CHANGES NOT MENTIONED NO . NEW NUMBNESS OR PAIN PATTERNS NOT MENTIONED AND PERTINENT TO TODAY'S VISIT NO . CARDIOLOGY: NEW CHEST PRESSURE NO . NEW CHEST PAIN NO . RESPIRATORY: UNEXPLAINABLE COUGH NO . NEW SHORTNESS OF BREATH NO . VITAL SIGNS WT 255.0 LBS, HT 70 IN, BMI 36.58 INDEX, BP 173/84 MM HG, HR 107 /MIN, RR 18 /MIN, TEMP 97.0 F, OXYGEN SAT % 95%, BLOOD GLUCOSE LEVEL 358 THIS AM, SAFE IN ENV? 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 EXAMINATION GENERAL EXAMINATION: GENERALNO ACUTE DISTRESS, WELL NOURISHED AND HYDRATED. PSYCHAPPROPRIATE MOOD AND AFFECT . LUNGS:CLEAR TO AUSCULTATION BILATERALLY, NO WHEEZES, RHONCHI, RALES. HEART:NO MURMURS, REGULAR RATE AND RHYTHM. ASSESSMENTS INTERVERTEBRAL DISC DISORDERS WITH RADICULOPATHY, LUMBOSACRAL REGION - M51.17 (PRIMARY) ENCOUNTER FOR FITTING AND ADJUSTMENT OF OTHER DEVICES RELATED TO NERVOUS SYSTEM AND SPECIAL SENSES - Z46.2 TREATMENT INTERVERTEBRAL DISC DISORDERS WITH RADICULOPATHY, LUMBOSACRAL REGION CLINICAL NOTES: 49-YEAR-OLD FEMALE IN FOR POST LESI FOLLOW-UP. DISCUSSED DCS TRIAL WITH PATIENT AND SHE IS WILLING TO GO FORWARD WITH THIS. INFORMED PATIENT THIS ACTION FINISHER WOULD GIVE HER INFORMATION TO THE [facility] AND THEY WOULD CALL HER WITH MORE INFORMATION REGARDING THIS. PLAN AT THIS TIME IS TO ORDER THORACIC MRI AND PSYCHOLOGICAL EVALUATION FOR DCS TRIAL. PATIENT HAS EXPRESSED UNDERSTANDING OF AND WAS IN AGREEMENT WITH TREATMENT PLAN. GIVEN TIME TO ASK QUESTIONS AND EXPRESS CONCERNS. ENCOUNTER FOR FITTING AND ADJUSTMENT OF OTHER DEVICES RELATED TO NERVOUS SYSTEM AND SPECIAL SENSES MRI : THORACIC [id number] PROCEDURE CODES FA211 ESTABILISHED PATIENT [facility] CHARGE DISPOSITION & COMMUNICATION FOLLOW UP POST IMAGING (REASON: THORACIC MRI ) ELECTRONICALLY SIGNED BY YARON BAZZI ON 04/30/2020 AT 08:13 AM EDT DISCLAIMER : THIS IS A VISIT SUMMARY EXTRACTED FROM THE [employer] CHART. IT IS NOT A COPY OF THE [employer] PROGRESS NOTE. MISTYD
== END ==
LOC: M PAIN 10:30
PROVIDERS: ATTEND Family Medicine
DX: M51.17 Intervertebral disc disorders with radiculopathy, lumbosacral region (principal); Z46.2 Encounter for fitting and adjustment of other devices related to nervous system and special senses

== ENCOUNTER → 2020-05-16 | Outpatient (CLI) | payer OTHER | LOC: M RAD 13:00 | PROVIDERS: ATTEND Family Medicine | DX: Z46.2 Encounter for fitting and adjustment of other devices related to nervous system and special senses (principal); R93.7 Abnormal findings on diagnostic imaging of other parts of musculoskeletal system ==

== ENCOUNTER 2020-05-27 14:45 | Inpatient (IN) | payer OTHER ==
[~2020-05-27 14:45] MED LIST changes: -ROSU10TA6
[2020-05-27] MEDS ORDERED: PERCOCET 5MG/325MG TAB ONE (17:05)
[2020-05-28] MEDS ORDERED: rOPINIRole 1MG TAB ONE ×2 (01:57→08:03)
[2020-05-28] MEDS ORDERED: ACETAMINOPHEN TAB 650MG DOSE (2X325MG) ONE (01:57)
[2020-05-28] MEDS ORDERED: traZODone 100 MG TAB ONE ×2 (01:57→21:15)
[2020-05-28] MEDS ORDERED: MONTELUKAST 10 MG TAB ONE ×2 (01:57→21:15)
[2020-05-28] MEDS ORDERED: PREGABALIN 100 MG CAP (LYRICA) As Ordered ONE ×3 (01:57→21:30)
[2020-05-28] MEDS ORDERED: CYCLOBENZAPRINE 10MG TABLET ONE ×4 (01:57→21:15)
[2020-05-28] MEDS ORDERED: LEVEMIR (INSULIN DETEMIR) 1 UNITS/0.01ML ONE ×3 (01:57→21:15)
[2020-05-28] MEDS ORDERED: traZODone 50 MG TAB ONE ×2 (01:57→21:15)
[2020-05-28] MEDS ORDERED: QUEtiapine FUMARATE 50 MG TAB ONE (01:57)
[2020-05-28] MEDS ORDERED: DULoxetine 30 MG CAP (CYMBALTA) ONE ×2 (01:57→21:15)
[2020-05-28] MEDS ORDERED: ACETAMINOPHEN TAB 650MG DOSE (2X325MG) As Ordered ONE (01:57)
[2020-05-28] MEDS ORDERED: APIXABAN 5 MG TAB (ELIQUIS) ONE ×3 (01:57→21:15)
[2020-05-28] MEDS ORDERED: HumaLOG INSULIN (NovoLOG) PER UNIT ONE ×5 (01:57→21:15)
[2020-05-28] MEDS ORDERED: PREGABALIN 100 MG CAP (LYRICA) ONE ×3 (01:57→21:15)
[2020-05-28] MEDS ORDERED: HumaLOG INSULIN (NovoLOG) PER UNIT As Ordered ONE ×5 (01:58→21:15)
[2020-05-28] MEDS ORDERED: CYCLOBENZAPRINE 10MG TABLET As Ordered ONE ×4 (01:59→21:30)
[2020-05-28] MEDS ORDERED: BENAZEPRIL 20 MG TAB As Ordered ONE (01:59)
[2020-05-28] MEDS ORDERED: traZODone 50 MG TAB As Ordered ONE ×2 (01:59→21:30)
[2020-05-28] MEDS ORDERED: CARVedilol 12.5 MG TAB As Ordered ONE ×3 (01:59→21:30)
[2020-05-28] MEDS ORDERED: DULoxetine 30 MG CAP (CYMBALTA) As Ordered ONE ×2 (02:00→21:31)
[2020-05-28] MEDS ORDERED: MONTELUKAST 10 MG TAB As Ordered ONE ×2 (02:00→21:30)
[2020-05-28] MEDS ORDERED: rOPINIRole 1MG TAB As Ordered ONE ×2 (02:00→08:05)
[2020-05-28] MEDS ORDERED: APIXABAN 5 MG TAB (ELIQUIS) As Ordered ONE ×3 (02:00→21:31)
[2020-05-28] MEDS ORDERED: QUEtiapine FUMARATE 50 MG TAB As Ordered ONE (02:01)
[2020-05-28] MEDS ORDERED: traZODone 100 MG TAB As Ordered ONE ×2 (02:01→21:31)
[2020-05-28] MEDS ORDERED: LEVEMIR (INSULIN DETEMIR) 1 UNITS/0.01ML As Ordered ONE ×3 (02:03→21:17)
[2020-05-28] MEDS ORDERED: CARVedilol 12.5 MG TAB ONE ×2 (08:03→21:15)
[2020-05-28] MEDS ORDERED: rOPINIRole 2MG TAB ONE (13:00)
[2020-05-28] MEDS ORDERED: QUEtiapine FUMARATE 200 MG TAB ONE (20:00)
[2020-05-28] MEDS ORDERED: DOXYCYCLINE HYCLATE 100MG TABLET ONE (21:15)
[2020-05-28] MEDS ORDERED: DOXYCYCLINE HYCLATE 100MG TABLET As Ordered ONE (21:30)
[2020-05-29] MEDS ORDERED: PREGABALIN 100 MG CAP (LYRICA) As Ordered ONE (09:24)
[2020-05-29] MEDS ORDERED: rOPINIRole 1MG TAB ONE (09:24)
[2020-05-29] MEDS ORDERED: CYCLOBENZAPRINE 10MG TABLET ONE (09:24)
[2020-05-29] MEDS ORDERED: CARVedilol 6.25 MG TAB ONE (09:24)
[2020-05-29] MEDS ORDERED: APIXABAN 5 MG TAB (ELIQUIS) ONE (09:24)
[2020-05-29] MEDS ORDERED: PREGABALIN 100 MG CAP (LYRICA) ONE (09:24)
[2020-05-29] MEDS ORDERED: DOXYCYCLINE HYCLATE 100MG TABLET ONE (09:24)
[2020-05-29] MEDS ORDERED: HumaLOG INSULIN (NovoLOG) PER UNIT ONE ×2 (09:24→12:50)
[2020-05-29] MEDS ORDERED: DOXYCYCLINE HYCLATE 100MG TABLET As Ordered ONE (09:25)
[2020-05-29] MEDS ORDERED: HumaLOG INSULIN (NovoLOG) PER UNIT As Ordered ONE (09:25)
[2020-05-29] MEDS ORDERED: CYCLOBENZAPRINE 10MG TABLET As Ordered ONE (09:25)
[2020-05-29] MEDS ORDERED: rOPINIRole 1MG TAB As Ordered ONE (09:26)
[2020-05-29] MEDS ORDERED: APIXABAN 5 MG TAB (ELIQUIS) As Ordered ONE (09:26)
[2020-05-29] MEDS ORDERED: CARVedilol 6.25 MG TAB As Ordered ONE (09:26)
[2020-05-29] MEDS ORDERED: LEVEMIR (INSULIN DETEMIR) 1 UNITS/0.01ML ONE (10:28)
[2020-05-29] MEDS ORDERED: LEVEMIR (INSULIN DETEMIR) 1 UNITS/0.01ML As Ordered ONE (10:28)
--- NOTE | 2020-06-30 15:12 | ECGEPIP ---
[facility] - ED Test Date: 2020-05-27 Pat Name: JOSS FORD Department: Room: [place] [address] Gender: Female Panel Beater: joyce : 1970 Requested By: EMERGENCY ROOM Order Number: [id number] Reading MD: Jamie Che Measurements Intervals [place] Rate: 80 P: 30 NM: 195 QRS: -8 QRSD: 94 T: 109 QT: 400 QTc: 462 Interpretive Statements SINUS RHYTHM ST-T CHANGES ? ISCHEMIA LATERAL SEE SCANNED DOWNTIME REPORT
--- NOTE | 2020-07-09 09:08 | REP ---
PA CHEST RADIOGRAPH: SINGLE VIEW DATE: 05/27/2020 03:42 a.m. HISTORY: Blunt trauma, injury in a fall. COMPARISON: Portable chest x-ray 07/15/2019. FINDINGS: The lungs are symmetrically aerated and free of infiltrate. There is linear fibrosis in the left perihilar region, unchanged. Pleural angles are sharp. Heart is not enlarged. Mediastinum is not widened. No rib or other fracture seen. IMPRESSION: No active disease. MTDD
--- NOTE | 2020-07-09 09:09 | REP ---
RIGHT FOOT SERIES: 4-VIEWS HISTORY: Cellulitis FINDINGS: 4-views of the right foot are performed. There is evidence of prior amputation at the level of the distal fifth metatarsal. I see no definite acute fracture. There is chronic fracture and fragmentation of the navicular bone. There appears to be an old fracture at the tip of the medial malleolus. I see no evidence of acute osseous destruction or periosteal reaction. There is mild posterior calcaneal spurring. There is dorsal navicular spurring. There is mild narrowing at the first metatarsophalangeal joint. MTDD
[2020-07-12 11:31] LABS: INR 0.95; PROTHROMBIN TIME 12.9 SECONDS (12.5-14.3)
[2020-07-12 11:38] LABS: APPEARANCE, URINE CLOUDY (CLEAR); BACTERIA, URINE AUTO NEGATIVE (NEGATIVE); BILIRUBIN, URINE AUTO NEGATIVE (NEGATIVE); BLOOD, URINE BLOOD NEGATIVE (NEGATIVE); COLOR, URINE YELLOW (YELLOW); GLUCOSE, URINE (UA) AUTO 2+ mg/dL (NEGATIVE); KETONE, URINE AUTO NEGATIVE (NEGATIVE); LEUKOCYTE ESTERASE, URINE AUTO NEGATIVE (NEGATIVE); MUCUS, URINE SMALL (NEGATIVE); NITRITE, URINE AUTO NEGATIVE (NEGATIVE); PROTEIN, URINE AUTO 2+ mg/dL (NEGATIVE); RBC, URINE AUTO 1 /HPF (0-3); SPECIFIC GRAVITY URINE AUTO 1.015 (1.002-1.035); SQUAMOUS EPITHELIAL CELL UR AU 0 /HPF (0-6); UROBILINOGEN, URINE AUTO 0.2 mg/dL (0.0-2.0); WBC, URINE AUTO 1 /HPF (0-3)
[2020-07-12 13:31] LABS: HEMATOCRIT 28.5 % (36.0-47.0); MEAN CORPUSCULAR HEMOGLOBIN 29.9 pg (27.0-33.0); MEAN CORPUSCULAR HGB CONC 35.1 g/dl (32.0-36.5); MEAN CORPUSCULAR VOLUME 85.1 fl (80.0-96.0); PLATELET COUNT, AUTOMATED 140 10^3/uL (150-450); RED BLOOD COUNT 3.35 10^6/uL (4.00-5.40); WHITE BLOOD COUNT 6.9 10^3/uL (4.0-10.0)
[2020-07-12 13:32] LABS: ERYTHROCYTE SEDIMENTATION RATE 68 mm/hr (0-30)
[2020-07-20 01:01] LABS: HEMATOCRIT 31.3 % (36.0-47.0); HEMOGLOBIN 10.8 g/dl (12.0-15.5); MEAN CORPUSCULAR HEMOGLOBIN 29.8 pg (27.0-33.0); MEAN CORPUSCULAR HGB CONC 34.5 g/dl (32.0-36.5); MEAN CORPUSCULAR VOLUME 86.2 fl (80.0-96.0); PLATELET COUNT, AUTOMATED 138 10^3/uL (150-450); RED BLOOD COUNT 3.63 10^6/uL (4.00-5.40); WHITE BLOOD COUNT 7.8 10^3/uL (4.0-10.0)
[2020-07-20 02:06] LABS: ERYTHROCYTE SEDIMENTATION RATE 66 mm/hr (0-30)
[2020-07-20 16:43] LABS: HEMATOCRIT 27.8 % (36.0-47.0); HEMOGLOBIN 9.6 g/dl (12.0-15.5); MEAN CORPUSCULAR HEMOGLOBIN 29.5 pg (27.0-33.0); MEAN CORPUSCULAR HGB CONC 34.5 g/dl (32.0-36.5); MEAN CORPUSCULAR VOLUME 85.5 fl (80.0-96.0); PLATELET COUNT, AUTOMATED 144 10^3/uL (150-450); RED BLOOD COUNT 3.25 10^6/uL (4.00-5.40); WHITE BLOOD COUNT 5.8 10^3/uL (4.0-10.0)
[2020-08-15 11:18] LABS: ALBUMIN 3.2 GM/DL (3.2-5.2); ALT/SGPT 28 U/L (12-78); BILIRUBIN,TOTAL 0.5 MG/DL (0.2-1.0); BLOOD UREA NITROGEN 61 MG/DL (7-18); CALCIUM LEVEL 9.3 MG/DL (8.5-10.1); CARBON DIOXIDE LEVEL 29 MEQ/L (21-32); CHLORIDE LEVEL 96 MEQ/L (98-107); CK-MB VALUE MASS 3.6 NG/ML (<3.6); CPK CREATINE PHOSPHOKINASE 146 U/L (26-192); CREATININE FOR GFR 2.47 MG/DL (0.55-1.30); GLOMERULAR FILTRATION RATE 21.9 (>51); GLUCOSE, FASTING 322 MG/DL (70-100); LIPASE 116 U/L (73-393); MB/CK RELATIVE INDEX 2.47 (< OR =4); POTASSIUM SERUM 4.1 MEQ/L (3.5-5.1); SODIUM LEVEL 135 MEQ/L (136-145); TOTAL PROTEIN 7.1 GM/DL (6.4-8.2); TROPONIN I < 0.02 NG/ML (< 0.10)
[2020-08-15 11:19] LABS: HEMOGLOBIN A1c 11.4 %
[2020-08-15 11:21] LABS: VENOUS PARTIAL PRESSURE CO2 48.5 mmHg (38.0-50.0); VENOUS PH 7.399 UNITS (7.330-7.430)
[2020-08-15 11:22] LABS: VENOUS BASE EXCESS 3.7 (-2.0-2.0); VENOUS HCO3 29.3 MEQ/L (23.0-27.0); VENOUS O2 SATURATION 94.8 % (60.0-80.0); VENOUS PARTIAL PRESSURE O2 75.2 mmHg (30.0-50.0); VENOUS STANDARD HCO3 27.7 MEQ/L; VENOUS TOTAL CO2 30.8 MEQ/L (24.0-28.0)
[2020-08-20 10:52] LABS: BLOOD UREA NITROGEN 72 MG/DL (7-18); C REACTIVE PROTEIN QUANTITATIV 5.31 MG/DL (0.00-0.30); CALCIUM LEVEL 8.1 MG/DL (8.5-10.1); CARBON DIOXIDE LEVEL 26 MEQ/L (21-32); CHLORIDE LEVEL 104 MEQ/L (98-107); CREATININE FOR GFR 2.48 MG/DL (0.55-1.30); GLOMERULAR FILTRATION RATE 21.8 (>51); GLUCOSE, FASTING 205 MG/DL (70-100); POTASSIUM SERUM 3.8 MEQ/L (3.5-5.1); SODIUM LEVEL 137 MEQ/L (136-145); TROPONIN I < 0.02 NG/ML (< 0.10)
[2020-08-20 10:53] LABS: BLOOD UREA NITROGEN 73 MG/DL (7-18); C REACTIVE PROTEIN QUANTITATIV 4.18 MG/DL (0.00-0.30); CALCIUM LEVEL 8.2 MG/DL (8.5-10.1); CARBON DIOXIDE LEVEL 23 MEQ/L (21-32); CHLORIDE LEVEL 104 MEQ/L (98-107); CREATININE FOR GFR 2.61 MG/DL (0.55-1.30); GLOMERULAR FILTRATION RATE 20.6 (>51); GLUCOSE, FASTING 262 MG/DL (70-100); POTASSIUM SERUM 4.1 MEQ/L (3.5-5.1); SODIUM LEVEL 136 MEQ/L (136-145); TROPONIN I < 0.02 NG/ML (< 0.10)
[2020-08-20 21:50] LABS: BLOOD UREA NITROGEN 70 MG/DL (7-18); CALCIUM LEVEL 8.5 MG/DL (8.5-10.1); CARBON DIOXIDE LEVEL 28 MEQ/L (21-32); CHLORIDE LEVEL 107 MEQ/L (98-107); CREATININE FOR GFR 1.95 MG/DL (0.55-1.30); GLOMERULAR FILTRATION RATE 28.8 (>51); GLUCOSE, FASTING 125 MG/DL (70-100); MAGNESIUM LEVEL 2.1 MG/DL (1.8-2.4); POTASSIUM SERUM 3.8 MEQ/L (3.5-5.1); SODIUM LEVEL 141 MEQ/L (136-145); TROPONIN I < 0.02 NG/ML (< 0.10)
[2020-08-22] MEDS ORDERED: ROSU10TA6 (08:36)
== END 2020-05-29 23:00 | disposition home or self-care (01) | DRG 312 ==
LOC: M ED 14:45 → M MS5PR 23:00
PROVIDERS: ADMIT Internal Medicine; ATTEND Internal Medicine
DX: I95.1 Orthostatic hypotension (principal); N17.9 Acute kidney failure, unspecified; L03.115 Cellulitis of right lower limb; E11.9 Type 2 diabetes mellitus without complications; I12.9 Hypertensive chronic kidney disease with stage 1 through stage 4 chronic kidney disease, or unspecified chronic kidney disease; Z79.899 Other long term (current) drug therapy; Z79.01 Long term (current) use of anticoagulants; M79.7 Fibromyalgia; J45.909 Unspecified asthma, uncomplicated; F41.9 Anxiety disorder, unspecified; L40.8 Other psoriasis; M06.9 Rheumatoid arthritis, unspecified; Q05.9 Spina bifida, unspecified; Z86.718 Personal history of other venous thrombosis and embolism; N18.9 Chronic kidney disease, unspecified

== ENCOUNTER → 2020-06-03 | Outpatient (CLI) | payer OTHER ==
[~2020-06-03] MED LIST changes: +ROSU10TA6
--- NOTE | 2020-06-18 11:32 | REPMRS ---
Patient History The patient states she had a clinical breast exam in May 2020. Patient is nulliparous. Family history of prostate cancer at age 77 in father, colorectal cancer at age 80 in maternal grandfather. Radio exam Breast Specimen of the left breast, December 05, 2017. Stereotatic Loc for ea Lesion of the left breast, December 05, 2017. Diagnostic Bilateral Mammo: June 03, 2020 - Exam #: [id number] Bilateral CC and MLO view(s) were taken. Technologist: Lisa North, Technologist Prior study comparison: June 08, 2019, digital mammo diagnostic bilateral performed at [facility]. January 24, 2019, bilateral digital mammo screening bilat performed at [facility]. FINDINGS: There are scattered fibroglandular densities. The Volpara volumetric breast density category is: B. There is a moderate amount of residual fibroglandular tissue which is fairly symmetric. There is no interval development of dominant mass, architectural distortion, or grouped microcalcification typical of malignancy. There has been no change in the appearance of the mammogram from the prior studies. 3-D tomosynthesis shows no additional findings. Assessment: BI-RADS/ACR category 1 mammogram. Negative Mammogram. Recommendation Routine screening mammogram of both breasts in 1 year (for women over age 40). This patient's Lifetime Breast Cancer RIsk is estimated at %. This mammogram was interpreted with the aid of an FDA-approved computer-aided dectection system. Electronically Signed By: Loi Ruiz MD 06/18/20 3750
--- NOTE | 2020-08-11 11:23 | REP ---
DIGITAL DIAGNOSTIC BILATERAL MAMMOGRAPHY WITH CAD, 3D TOMOGRAPHY AND BILATERAL FOCUSED BREAST SONOGRAPHY: HISTORY: Left breast lump palpated on clinician breast examination this AM. Palpable axillary lymph node on the right this week. Purulent discharge right nipple, light yellow for the previous 4 months with some pain in the right breast. There is apparently a history of a cyst in the right breast palpable lump which she feels has gotten bigger. COMPARISON: Mammography from 06/08/19, 01/24/19 and 10/25/17. FINDINGS: Routine views of each breast are augmented by diagnostic magnified focal spot compression images and true mediolateral views. 3D tomography is acquired. A skin marker is affixed to the skin at the site of the palpable lump on the left which projects laterally. A palpable lump on the right is at approximately 9 o'clock and the palpable lump on the left at approximately 4 o'clock. Scattered fibroglandular densities are seen. The breast parenchyma is predominantly fatty replaced. The volumetric Volpara density pattern is B. Vascular calcifications are noted bilaterally. On the left, there a needle biopsy marker clip inferiorly and medially. The previously noted microcalcifications at that location are no longer apparent. The patient is status post stereotactic biopsy for this in November 2017. At the level of the skin marker denoting the palpable lump in the left breast, there is a hazy ill-defined density, which is new from the 2018 prior mammography. It does not appear to have been present previously. The mammogram is otherwise unchanged on the left. On the right, the breast parenchyma is unchanged from comparison mammography. No dominant density architectural distortion, microcalcific cluster or worrisome skin changes seen at the site of the palpable lump or elsewhere in the right breast. The lumps in the axilla on the right could not be projected mammographically. SONOGRAPHIC FINDINGS: Scanning in the right axilla demonstrate normal appearing lymph nodes, the largest of which measures as follows: 1.8 x 2.6 x 1.1, 1.8 x 2.3 x 0.9, and 1.3 x 2.2 x 1.4 cm. These have a benign appearance. At the site of the palpable lump in the left breast, there is an area of dermal thickening with visible peripheral blood flow and hypoechoic texture, consistent with a skin lesion. This measures 1.7 x 0.5 x 2.0 cm and corresponds with the site of the palpable lump. The underlying breast parenchyma is unremarkable sonographically. No other sonographic finding is seen. IMPRESSION: There is a nonspecific area of dermal thickening, hypervascularity and hypoechoic texture in the skin at the site of the palpable lump in the newly palpated lump in the left breast. Skin biopsy suggested depending on clinical parameters. BI-RADS category is felt to be best assigned as category 4, suspicious mammogram. No suspicious abnormality noted on the right, either mammographically or sonographically. This mammogram was interpreted with the aid of an FDA approved computer aid detection system. The patient's lifetime breast cancer risk assessment is estimated by Tyrer-Cuzick model at 12.9%. The date of the patient's last clinical breast examination is today. Patient letter: Ivelisse SULLIVAN
== END ==
LOC: M WHC 11:00
PROVIDERS: ATTEND Family Medicine
DX: N63.20 Unspecified lump in the left breast, unspecified quadrant (principal); R59.9 Enlarged lymph nodes, unspecified
CPT/HCPCS: 76642; 76882; 77066; G0279

== ENCOUNTER → 2020-06-04 | Outpatient (CLI) | payer OTHER | LOC: M PAIN 10:15 | PROVIDERS: ATTEND Family Medicine | DX: M54.5 Low back pain (principal) ==

== ENCOUNTER → 2020-06-11 | Outpatient (CLI) | payer OTHER | LOC: M PAIN 10:00 | PROVIDERS: ATTEND Anesthesiology | DX: M51.16 Intervertebral disc disorders with radiculopathy, lumbar region (principal) ==

== ENCOUNTER → 2020-07-16 | Outpatient (CLI) | payer OTHER ==
[~2020-07-16] MED LIST changes: -ROSU10TA6
--- NOTE | 2020-07-26 10:20 | REP ---
BILATERAL BREAST ULTRASOUND HISTORY: Right palpable lump 10 o'clock, left breast infection 3 o'clock. RIGHT BREAST: Real-time sonographic evaluation of the right breast is performed in the region of the palpable lump at 10 o'clock. Superficially, there is an oval area of predominantly hyperechoic echotexture with small hypoechoic areas as well. The hyperechoic echotexture suggests the presence of internal fat. This measures 2.3 x 1.9 x 0.6 cm. Compared to the prior ultrasound of 06/08/2019, there is no change. This is felt to represent discrete oval fibroglandular tissue versus a hamartoma. This is probably benign. It has remained stable for greater than one year. LEFT BREAST: Real-time sonographic evaluation of the left breast is performed in the region of 3 o'clock and compared to prior study of 06/03/2020. Once again superficially in the dermis, there is an elongated hypoechoic area, which measures 1.5 x 0.3 x 1.5 cm. This appears to have mildly decreased in size when compared to the prior ultrasound of 06/03/2020, previously measuring 2.0 x 0.5 x 1.7 cm. This likely represents resolving inflammatory change. With Doppler evaluation, there is some minimal peripheral vascularity which appears to have decreased since the prior exam. IMPRESSION: BI-RADS Category 3 probably benign ultrasound right breast. At the site of a palpable lump at 10 o'clock, there is an oval area of predominantly hyperechoic echotexture with small areas of hypoechoic echotexture. This may represent a lobule of fatty fibroglandular tissue versus a hamartoma. It has not changed since the prior exam of 06/08/2019. Recommend follow-up ultrasound in one year. BI-RADS Category 2 benign ultrasound left breast a 3 o'clock. Reportedly there is an infection in this area and there is again noted an elongated hypoechoic area within the dermis with apparent skin thickening focally. This has mildly decreased in size since the prior exam of 06/03/2020 and is most consistent with a resolving area of inflammation. [facility]
== END ==
LOC: M WHC 15:14
PROVIDERS: ATTEND Surgery
DX: N63.11 Unspecified lump in the right breast, upper outer quadrant (principal); N63.23 Unspecified lump in the left breast, lower outer quadrant

== ENCOUNTER → 2020-07-22 | Outpatient (REF) | payer OTHER ==
[2020-07-22 17:12] LABS: HEMATOCRIT 37.7 % (36.0-47.0); HEMOGLOBIN 12.6 g/dl (12.0-15.5); MEAN CORPUSCULAR HEMOGLOBIN 28.9 pg (27.0-33.0); MEAN CORPUSCULAR HGB CONC 33.4 g/dl (32.0-36.5); MEAN CORPUSCULAR VOLUME 86.5 fl (80.0-96.0); PLATELET COUNT, AUTOMATED 250 10^3/uL (150-450); RED BLOOD COUNT 4.36 10^6/uL (4.00-5.40); WHITE BLOOD COUNT 6.2 10^3/uL (4.0-10.0)
[2020-07-22 17:50] LABS: CALCIUM LEVEL 8.5 MG/DL (8.5-10.1); CREATININE FOR GFR 1.5 MG/DL (0.55-1.30); HEMOGLOBIN A1c 12.3 %; POTASSIUM SERUM 4.5 MEQ/L (3.5-5.1)
== END ==
LOC: M SFHCPLAZ 14:40
PROVIDERS: ATTEND Family Medicine
DX: E11.22 Type 2 diabetes mellitus with diabetic chronic kidney disease (principal); E11.59 Type 2 diabetes mellitus with other circulatory complications; I10 Essential (primary) hypertension

== ENCOUNTER → 2020-08-15 | Outpatient (REF) | payer OTHER ==
[~2020-08-15] MED LIST changes: +ROSU10TA6
[2020-08-15 11:22] LABS: HEMOGLOBIN A1c 9.8 %
== END ==
LOC: M PLALAB 08:53
PROVIDERS: ATTEND Family Medicine
DX: E11.59 Type 2 diabetes mellitus with other circulatory complications (principal)

== ENCOUNTER → 2020-08-23 | Outpatient (CLI) | payer OTHER | LOC: M LABSMTC 10:24 | PROVIDERS: ATTEND Anesthesiology | DX: Z01.812 Encounter for preprocedural laboratory examination (principal); Z20.828 Contact with and (suspected) exposure to other viral communicable diseases | CPT/HCPCS: C9803; U0003 ==

== ENCOUNTER 2020-08-28 09:40 | Day surgery (SDC) | payer OTHER ==
[~2020-08-28] VITALS: Ht 177.8 cm; Wt 126.7 kg
[~2020-08-28 09:40] MED LIST changes: +BSS IRR 500ML/OMIDRIA 4ML IRR BAG (OR ONLY) (J1097 PER ML) As Ordered ONE; +DUOVISC (0.50ML VISCOAT/0.55ML PROVISC) OPHTH KIT As Ordered ONE; +OFLOXACIN 0.3 % (OCUFLOX) OPTH SOL 5ML OD ONE; +PHENYLEPHRINE 2.5% OPHTH SOL 2ML OD ONE; +POVIDONE-IODINE 5% OPHTH PREP SOL 30ML As Ordered ONE; +PROPARACAINE 0.5% OPHTH SOL 15ML OD ONE; +TROPICAMIDE 1% OPHTH SOLN 2ML OD ONE
[2020-08-28] MEDS ORDERED: MIDAZOLAM INJ 2MG/2ML VIAL (J2250 PER 1MG) As Ordered ONE (11:02)
[2020-08-28] MEDS ORDERED: fentaNYL 100 MCG/2 ML INJECTION (J3010) As Ordered ONE (11:03)
[2020-08-28 12:45] VITALS: BP 163/79
== END 2020-08-28 13:00 | disposition home or self-care (01) ==
LOC: M SDC 09:40
PROVIDERS: ATTEND Ophthalmology
DX: H25.11 Age-related nuclear cataract, right eye (principal); E11.40 Type 2 diabetes mellitus with diabetic neuropathy, unspecified; K31.84 Gastroparesis; Z79.4 Long term (current) use of insulin; J44.9 Chronic obstructive pulmonary disease, unspecified; E78.5 Hyperlipidemia, unspecified; K21.9 Gastro-esophageal reflux disease without esophagitis; D68.51 Activated protein C resistance; M79.7 Fibromyalgia; M81.0 Age-related osteoporosis without current pathological fracture; F41.9 Anxiety disorder, unspecified; F31.9 Bipolar disorder, unspecified; D64.9 Anemia, unspecified; F32.9 Major depressive disorder, single episode, unspecified; F17.290 Nicotine dependence, other tobacco product, uncomplicated; K44.9 Diaphragmatic hernia without obstruction or gangrene; K57.92 Diverticulitis of intestine, part unspecified, without perforation or abscess without bleeding; Z79.899 Other long term (current) drug therapy; Z88.0 Allergy status to penicillin; Z88.2 Allergy status to sulfonamides; Z91.040 Latex allergy status; Z88.1 Allergy status to other antibiotic agents; G47.30 Sleep apnea, unspecified; Z86.718 Personal history of other venous thrombosis and embolism; Z79.01 Long term (current) use of anticoagulants
CPT/HCPCS: 66984; J2250; J3010

== ENCOUNTER → 2020-09-05 | Outpatient (CLI) | payer OTHER ==
[~2020-09-05] MED LIST changes: +ALLO10TA PO; -BSS IRR 500ML/OMIDRIA 4ML IRR BAG (OR ONLY) (J1097 PER ML) As Ordered ONE; -DUOVISC (0.50ML VISCOAT/0.55ML PROVISC) OPHTH KIT As Ordered ONE; -MONT10TA4 PO; +MONT5TAB2 PO; +NOVOINJ12 SC; -OFLOXACIN 0.3 % (OCUFLOX) OPTH SOL 5ML OD ONE; -PHENYLEPHRINE 2.5% OPHTH SOL 2ML OD ONE; -POVIDONE-IODINE 5% OPHTH PREP SOL 30ML As Ordered ONE; -PROPARACAINE 0.5% OPHTH SOL 15ML OD ONE; -TROPICAMIDE 1% OPHTH SOLN 2ML OD ONE
--- NOTE | 2020-09-18 00:48 | ECWPNPC ---
PATIENT NAME: JOSS FORD : 1970 GENDER: FEMALE VISIT DATE: 09/05/2020 DISCHARGE DATE: 09/05/20 1637 VISIT LOCKED DATE TIME: PHYSICIAN: RONNIE SIMMONS MD PHYSICIAN PAGER NO: ACTIVE RESOURCE: RONNIE SIMMONS MD REASON FOR APPOINTMENT 1. DISCUSS DCS/ORDER MRI HISTORY OF PRESENT ILLNESS GENERAL: 50-YEAR-OLD FEMALE PATIENT WITH A HISTORY OF CHRONIC LOW BACK AND BILATERAL LEG PAIN. THE PATIENT DESCRIBES THE PAIN SORE AND TENDER WITH A PAIN SCORE RANGING FROM 5-10/10 DEPENDING ON PHYSICAL ACTIVITY. THE PAIN IS MAINLY IN HER RIGHT LEG. WE HAVE BEEN DISCUSSING DORSAL COLUMN STIMULATOR. THE PATIENT HAS A HISTORY OF DIABETES, RENAL INSUFFICIENCY, ASTHMA AND FACTOR V LEIDEN WHICH PUTS HER IN A HYPER COAGULATED STATE WHICH IS THE REASON SHE IS USING ELIQUIS . SHE HAS A HISTORY OF CLOTS IN HER ARM AND LEG BUT NOT PULMONARY EMBOLISM. SHE HAS A LEFT BELOW KNEE AMPUTATION DUE TO DIABETES. THE PATIENT IS WORKING ON THE CONTROL OF HER DIABETES WITH HER PRIMARY CARE. PATIENT DENIES UNEXPLAINABLE WEIGHT LOSS, FEVER, CHILLS, NEW CHANGES ON URINARY OR BOWEL CONTROL. FALL RISK SCREENING: SCREENING :TWO OR MORE FALLS WITHOUT INJURY IN THE PAST YEAR HAD TO GO TO THE ER AFTER ONE FALL DUE TO LOW BP CAUSING THE FALL, NO INJURY RESULTED FROM THE FALL. PAIN SCREENING: PATIENT HAS A COMPLAINT OF ACUTE OR CHRONIC PAIN :YES LOCATION OF PAIN:MID BACK, LOW BACK RIGHT LEG INTENSITY OF PAIN (SCALE OF 1 TO 10):9 9 WHEN STANDING/MOVING, 6 WHEN SEATED WHAT DOES YOUR PAIN FEEL LIKE:SHARP, SHOOTING DURATION:CONTINOUS, CONSTANT, STEADY, ALL DAY PAIN IS INCREASED BY:ACTIVITIES, PROLONGED STANDING PAIN IS DECREASED BY:USE OF PAIN MEDICATIONS, SITTING, OTHERS NURSING NOTE: -. PAIN CENTER INTAKE QUESTIONS: DO YOU HAVE A HISTORY OF MRSA? :YES LEFT FOOT PRIOR TO AMPUTATION DO YOU TAKE A BLOOD THINNERS? :YES ELIQUIS DO YOU HAVE ANY BLEEDING DISORDERS? :NO ANY NEW NUMBNESS OR WEAKNESS IN YOUR LEGS OR ARMS? :NO INCREASED PAIN LEADING TO INCREASED WEAKNESS ANY PACEMAKER,DEFIBRILLATOR, OR DORSAL COLUMN STIMULATOR? :NO DO YOU HAVE ANY RASHES OR OPEN SORES? :YES SMALL OPEN SORE TO RIGHT ANKLE AND RIGHT FOOT ARE YOU ALLERGIC TO IV DYE? :NO ARE YOU DIABETIC? :YES ANY NEW PROBLEMS WITH YOUR MEDICATIONS? :NO HAVE YOU RECEIVED A VACCINE IN THE PAST 30 DAYS? :NO DO YOU PLAN TO RECEIVE A VACCINE IN THE NEXT 21 DAYS? :YES IF SO WHAT VACCINE AND WHEN? FLU VACCINE POSSIBLY NEXT WEEK DO YOU NEED ANY PRESCRIPTION? :NO DO YOU TAKE ANY IMMUNOSUPPRESSIVE MEDICATIONS? :NO IS THERE A CHANCE YOU COULD BE ? :NO ARE YOU BREAST FEEDING? :NO CURRENT MEDICATIONS TAKING CLOBETASOL PROPIONATE 0.05 % SOLUTION 1 APPLICATION TO AFFECTED AREA EXTERNALLY TWICE A DAY TO SCALP TAKING KETOCONAZOLE 2 % SHAMPOO 5 APPLICATIONS TO SCALP EXTERNALLY ONCE A DAY AND LET SIT FOR 5 MINUTES TAKING BACTROBAN 2% OINTMENT DIRECTED APPLIED TOPICALLY TWICE A DAY TAKING HIBICLENS 4 % LIQUID DIRECTED EXTERNALLY TWICE A DAY TAKING CYCLOBENZAPRINE HCL 10 MG TABLET 1 TAB ORALLY THREE TIMES A DAY PRN MUSCLE SPASMS TAKING RESTASIS 0.05 % EMULSION 1 DROP INTO AFFECTED EYE OPHTHALMIC THREE TIMES A DAY TAKING MAGNESIUM CHLORIDE 64 MG TABLET DELAYED RELEASE 1 TABLET ORALLY DAILY TAKING ZOFRAN 8 MG TABLET 1 TAB PRN NAUSEA ORALLY EVERY 12 HOURS TAKING COLLAGEN ULTRA - CAPSULE 1 CAP ORALLY DAILY TAKING NYSTATIN POWDER [id number] UNIT POWDER POWDER EXTERNALLY TO BILATERAL BERAST AND ABD PANNUS DAILY NEEDED DAILY TAKING WHEELCHAIR - MISCELLANEOUS DIRECTED DX Z89.51, M54.41 TAKING MISC. DEVICES - MISCELLANEOUS DIRECTED REPAIR AND REPLACE PROSTHETIC AND LINERS NEEDED; DX Z89.51 TAKING MAY USE - - WHEEL CHAIR DX CODE Z89.512 _ TAKING REFRESH 1 % SOLUTION 1 DROP INTO AFFECTED EYE NEEDED OPHTHALMIC FOUR TIMES DAILY PRN TAKING BETAMETHASONE VALERATE 0.1 % CREAM 1 APPLICATION TO AFFECTED AREA EXTERNALLY ONCE A DAY TAKING BD PEN MINI - MISCELLANEOUS DIRECTED E11.9 QID TAKING PROBIOTIC - TABLET DELAYED RELEASE ORALLY TAKING EPIPEN 0.3 MG/0.3ML DEVICE 1 INJECTION INJECTION NEEDED FOR ALLERGIC REACTION TAKING FREESTYLE ANDREA 14 DAY SENSOR - MISCELLANEOUS DIRECTED DX E11.9 TAKING WHEELCHAIR - MISCELLANEOUS DIRECTED POWER WHEELCHAIR; DX M54.41, G56.21, Z89.512, M62.81 TAKING HUMALOG KWIKPEN 200 UNIT/ML SOLUTION PEN-INJECTOR DIRECTED SUBCUTANEOUS TID PER SLIDING SCALE; MAX DAILY #40 UNITS TAKING HYDROCODONE-ACETAMINOPHEN 10-325 MG TABLET 1 TABLET NEEDED ORALLY EVERY 4 HRS TAKING SYMBICORT 80-4.5 MCG/ACT AEROSOL 2 PUFFS INHALATION TWICE A DAY TAKING PROAIR HFA 108 (90 BASE) MCG/ACT AEROSOL SOLUTION 2 PUFFS NEEDED INHALATION EVERY 6 HRS TAKING LYRICA 300 MG CAPSULE 1 CAPSULE ORALLY TWICE A DAY (PAIN CLINIC) TAKING SINGULAIR 10 MG TABLET 1 TABLET ORALLY ONCE A DAY TAKING VALACYCLOVIR HCL 1 GM TABLET 1 TABLET ORALLY EVERY 24 HRS TAKING XOPENEX 1.25 MG/3ML NEBULIZATION SOLUTION 3 ML INHALATION EVERY 6 HOURS NEEDED TAKING TAMSULOSIN HCL 0.4 MG CAPSULE EXTENDED RELEASE ORALLY DAILY HS TAKING TRAZODONE HCL 100 MG TABLET 2 TABLETS ORALLY ONCE A DAY AT HS TAKING DEXILANT 60 MG CAPSULE DELAYED RELEASE 1 CAPSULE ORALLY ONCE A DAY TAKING ROSUVASTATIN CALCIUM 10 MG TABLET 1 TABLET ORALLY ONCE A DAY TAKING ELIQUIS 5 MG TABLET 1 TABLET ORALLY BID TAKING CETIRIZINE HCL 10 MG TABLET 1 TABLET ORALLY ONCE A DAY TAKING CHOLECALCIFEROL 35118 UNIT CAPSULE 1 CAPSULE ORALLY ONCE A WEEK ON TUESDAY TAKING ROPINIROLE HCL 2 MG TABLET 1 TABLET AT 8 PM AND AT MIDNIGHT ORALLY BID TAKING TRESIBA 200 U/ML 320 UNITS SUBCUTANEOUSLY DAILY TAKING CYMBALTA 60 MG CAPSULE DELAYED RELEASE PARTICLES 2 CAPSULES ORALLY DAILY TAKING METHYLPHENIDATE HCL ER (LA) 20 MG CAPSULE EXTENDED RELEASE 24 HOUR 1 CAPSULE IN THE MORNING ORALLY ONCE A DAY TAKING PEN NEEDLES 12/30" 31G X 5 MM MISCELLANEOUS DIRECTED 5 TIMES DAILY TAKING TORSEMIDE 20 MG TABLET 2 TAB ORALLY DAILY NOT-TAKING LUNESTA 3 MG TABLET 1 TABLET IMMEDIATELY BEFORE BEDTIME ORALLY ONCE A DAY NOT-TAKING LEVOFLOXACIN 250 MG TABLET 1 TABLET ORALLY TWICE A DAY NOT-TAKING AMLODIPINE BESYLATE 2.5 MG TABLET 1 TABLET ORALLY ONCE A DAY MEDICATION LIST REVIEWED AND RECONCILED WITH THE PATIENT PAST MEDICAL HISTORY 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 LITTELL TEMPORAL LOBE SEIZURES IN 1990S, NONE RECENTLY GERD, HIATAL HERNIA, GASTROPARESISI - DR. TAVERAS HERPES SIMPLEX II VIA PCR ON LESIONS ON BACK FATTY LIVER + FVL, RECURRENT DVTS TYPE 2 DIABETES MELLITUS WITH OTHER CIRCULATORY COMPLICATIONS - NEFTALY HX RECTO-SIGMOID ISCHEMIC COLITIS 03/2018 CONFIRMED BY SIGMOID C BX-NITIN, MSESNTERIC ARTERIOGRAM S INTERVENTION HX URINARY RETENTION - [facility] UROLOGY HX MCCOLLUM'S PALSY - NEURO PA - NONCOMPLIANT WITH CPAP CKD3 - NEPHROLOGY HISTORY OF MRSA RLS, NOCTURNAL LEG CRAMPS IRON DEFICIENCY ANEMIA ALLERGIES LATEX (FOR ALLERGY USE ONLY): ANAPHYLAXIS - ALLERGY PENICILLIN (FOR ALLERGIES USE ONLY): ANAPHYLAXIS - ALLERGY SULFA (FOR ALLERGY USE ONLY): HIVES - ALLERGY TRICOR: HIVES - ALLERGY GLUCOPHAGE: HIVES - ALLERGY LIPITOR: HIVES - ALLERGY ZOCOR: HIVES - ALLERGY FRESH PINEAPPLE: SWOLLEN LIPS/ SORES IN MOUTH - ALLERGY KEFLEX: HIVES - ALLERGY SURGICAL HISTORY GALLBLADDER 1996 CERVICAL DISCECTOMY C5-6 FUSION 1994 HYSTERECTOMY FOR PROLAPSE/ENDOMETRIOSIS 2000 LUMPECTOMY RIGHT BREAST 2004 SKIN LESION REMOVED 2004 MULTIPLE DIAGNOSTIC LAPAROSCOPIES VENOUS PORTACATH LEFT CHEST X2 PICC LINE LEFT & RIGHT UPPER ARM X3 APPENDECTOMY 2009 EXCISED ABCESSED WOUNDS X3 DUE TO INFECTION. ULNAR RELEASE RIGHT ARM/HAND CHANI CATH X2 STOOL TRANSPLANT PORT PLACED 12/23/2016 ULNAR RELEASE AND CARPAL TUNNEL RELEASE RIGHT ARM WITH REVISION: DR. RECINOS LEFT CHARCOT FOOT DEBRIDEMENT: DR. LILLY 02/2017 LEFT BKA FOR CHRONIC WOUND/OSTEOMYELITIS 05/2017 EGD- GASTRIC POLYP RESECTED; DR. TAVERAS 06/2018 COLONOSCOPY - SIGMOID ULCER; DR. TAVERAS 06/2018 EGD - NORMAL; DR. TAVERAS 10/2018 R-EYE CATARACT SURGERY 09/2020 FAMILY HISTORY FATHER: 82 YRS, HEART ISSUES, PACEMAKER, PROSTATE CANCER MOTHER: 80 YRS, OSTEOPOROSIS, HTN, STROKE 2X SIBLINGS: ALIVE, DIABETES 2 BROTHER(S) , 5 SISTER(S) . BROTHER WITH TYPE I DIABETESSISTER WITH HYPERTENSIONDENIES ANY FH OF MELANOMA OR PANCREATIC CANCERS. SOCIAL HISTORY GENERAL: TOBACCO USE ARE YOU A:FORMER SMOKER HOW LONG HAS IT BEEN SINCE YOU LAST SMOKED?6-12 MONTHS LATEX QUESTIONNAIRE LATEX ALLERGY : HAVE YOU EVER DEVELOPED ANY TYPE OF REACTION AFTER HANDLING LATEX PRODUCTS SUCH RUBBER GLOVES, CONDOMS, DIAPHRAGMS, BALLOONS, SOCKS, OR UNDERWEAR?YES - PLEASE INDICATE :RUBBER GLOVES, CONDOMS, BALLOONS LATEX ALLERGY : HAVE YOU EVER DEVELOPED ANY TYPE OF REACTION DURING OR AFTER DENTAL APPOINTMENT, VAGINAL/RECTAL EXAMINATION, SURGICAL PROCEDURE, OR ANY OTHER EXPOSURE?YES - PLEASE INDICATE :VAGINAL EXAM, RECTAL EXAM LATEX RISK : HAVE YOU EVER HAD ANY DIFFICULTY BREATHING OR HIVES AFTER EATING OR HANDLING ANY FRUITS, OR VEGETABLES; SUCH KIWI, BANANAS, STONE FRUITS, OR CHESTNUTSNO LATEX RISK : DO YOU HAVE A PREVIOUS PERSONAL HISTORY OF MORE THAN NINE SURGERIES, SPINA BIFIDA, OR REPEATED CATHERIZATIONS? YES - PLEASE INDICATE : > 9 SURGERIES LATEX RISK : ARE YOU FREQUENTLY EXPOSED TO LATEX PRODUCTS IN YOUR OCCUPATION?NO DATE ASKED : 09/05/2020 ACTIVE LATEX ALLERGY BMI CARE GOAL FOLLOW-UP ABOVE NORMAL BMI FOLLOW-UPLIFESTYLE EDUCATION REGARDING DIET ALCOHOL SCREENING POINTS: 0, INTERPRETATION: NEGATIVE. RECREATIONAL DRUG USE DENIES. CAFFEINE CAFFEINE USE?NO SEXUAL HX HAD SEX IN THE LAST 12 MONTHS (VAGINAL, ORAL, OR ANAL)?YES WITHMEN ONLY PREVENTION STRATEGIES DISCUSSED:CONDOMS USE PROTECTION?NO HAVE YOU EVER HAD AN STD?NO HIV / HEP-C SCREENING HIV TEST OFFERED TO PATIENT:NO HEP-C TEST OFFERED TO PATIENT:NO YAZIDISM [id number] NONE LANGUAGE LANGUAGES SPOKEN:KYRGYZ EDUCATION SOME COLLEGE. LEARNING BARRIERS / SPECIAL NEEDS CHANGE FROM LAST VISIT?NO BARRIERS TO LEARNING?NO HEARING IMPAIRED?NO VISION IMPAIRED?YES :CORRECTIVE LENSES COGNITIVELY IMPAIRED?NO READINESS TO LEARN?YES LEARNING PREFERENCES?NO LEARNING CAPABILITIES PRESENT?YES EMOTIONAL BARRIERS?NO SPECIAL DEVICES?YES :CANE, WALKER, WHEELCHAIR LEFT LEG PROSTHETIC SUPERVISOR PAINT NEEDED?NO DOMESTIC VIOLENCE DO YOU FEEL SAFE IN YOUR ENVIRONMENT?YES OCCUPATION: UNEMPLOYED. DIET: CARBOHYDRATE CONTROLLED. EXERCISE: NO REGULAR EXERCISE. MARITAL STATUS: . OTHERS AT HOME: SPOUSE. PAIN CLINIC PFS, CLERGY, PUBLIC HEALTH REFERRALS HAS THE PATIENT BEEN EDUCATED REGARDING HIS/HER PLAN OF CARE?YES EDUCATED PT REGARDING PROCEDURE, PT ACKNOWLEDGED UNDERSTANDING. HAS THE PATIENT BEEN EDUCATED REGARDING PAIN, THE RISK FOR PAIN, THE IMPORTANCE OF EFFECTIVE PAIN MANAGEMENT, AND THE PAIN ASSESSMENT PROCESS?YES HOUSING: OWNS HOME. ADVANCE DIRECTIVE ADVANCE DIRECTIVE DISCUSSED WITH PATIENT:YES PT HAS HEALTH CARE PROXY, JAYASHREE FORD [phone] HOSPITALIZATION/MAJOR DIAGNOSTIC PROCEDURE SEPSIS, L FOOT ULCER, SUSPECTED COLITIS 08/23/2014 DVT RLL 09/06/2014 SEPTIC SHOCK SECONDARY TO MULTIPLE SKIN ULCERS 10/22/2014 LOW BLOOD SUGERS AND INFECTIONS 11/11/2014 RLL CELLULITUS AND OSTEOMYELITIS 01/06/2015 HYPOTENSION, SYNCOPE 02/21/2015 DIABETIC FOOT ULCER OSTEO 04/30/15 STAPH HOMINIS LINE SEPSIS MSSA CHRONIC OSTEOMELYTIS FOOT 05/15/15 WOUND INFECTION 06/2015 SEPSIS 06/2015 SEPSIS 07/2015 ADMITTED FOR PORT INFECTION 11/2015 C-DIFF 12/2015 LEFT FOOT R/O OSTEOMYELITIS. 05/27/2016 HYPERGLYCEMIA IN AN UNCONTROLLED TYPE I DIABETIC, R SIDED FLANK PAIN, CKD, HYPONATREMIA SECONDARY TO HYPERGLYCEMIA, ANXIETY, DEPRESSION, HYPERTENSION, ASTHMA, HX OF DVT, UTI 08/30-09/03/2016 CELLULITIS LEFT FOOT 01/13/17-01/19/17 CELLULITIS OF THE RIGHT LOWER FOOT, MILD ACUTE RENAL FAILURE 04/12/17-04/14/17 KIDNEY INJURY 10/05 HYPERGYYCEMIA, HYOERTENSION, HYPERKALEMIA, ACUTE KIDNEY INJURY 10/25/2017 DEHYDRATION AND ALTERED MENTAL STATUS 02/14/2018 ACUTE SIGMO-RECTAL ISCHEMIC COLITIS C SEVERE SEPSIS/MELODY I/TME/BLOODY STOOLS/ELEVATED BHG BUT PH 7.6 (WBC ON ADMISSION 17K, PEAK CR 1.7), CONFIRMED BY SIGMOID C BX-REINDL, -BCX X 2, -GI PANEL -UCX, MESENTERIC ARTERIOGRAM DONE BY SRAVAN Hernandez INTERVENTION//CT HE 03/20- LETICIA LOCKETT 10/08/2018 3 DAYS RENAL FAILURE 05/22/2019 RIGHT FOOT CELLULITIS 06/2019 HYPOTENSION W/ FALL 05/27/20 REVIEW OF SYSTEMS CONSTITUTIONAL: ANY RECENT FEVER NO . CHILLS NO . WEIGHT CHANGE OF UNKNOWN REASONS NO . GASTROENTEROLOGY: NEW UNEXPLAINABLE CHANGES IN BOWEL CONTROL NO . CONSTIPATION NO . GENITOURINARY: ANY NEW CHANGE IN BLADDER CONTROL? NO . NEUROLOGY: NEW ONSET DIZZINESS OR NEUROLOGICAL CHANGES NOT MENTIONED NO . NEW NUMBNESS OR PAIN PATTERNS NOT MENTIONED AND PERTINENT TO TODAY'S VISIT NO . CARDIOLOGY: NEW CHEST PRESSURE NO . NEW CHEST PAIN NO RECENT DROP IN BLOOD PRESSURE AND SHE STOPPED HER BLOOD PRESSURE MEDICATION. TODAY, THE PRESSURE IS A LITTLE ON THE HIGH SIDE. . RESPIRATORY: UNEXPLAINABLE COUGH NO . NEW SHORTNESS OF BREATH NO . VITAL SIGNS WT 265 LBS, HT 70 IN, BMI 38.02 INDEX, BP 198/110 MANUAL, HR 91 /MIN, RR 18 /MIN, TEMP 97.7 F, OXYGEN SAT % 99%, SAFE IN ENV? (Y/N) Y, REVIEWED BY: KAITY. QI PERKINSDISCUSSED ELEVAETD BP WITH PATIENT. STATES HER DOCTOR TOOK HER OFF HER BLOOD PRESSURE MEDICATIONS THEY WERE DROPPING HER BP TOO LOW. STATES SHE HAS AN APPOINTMENT WITH THEM NEXT WEEK AND WILL DISCUSS HER BP WITH THEM. DR. SIMMONS NOTIFIED. JS. EXAMINATION GENERAL EXAMINATION: THE PATIENT IS ALERT, ORIENTED TIMES THREE AND COOPERATIVE. HEART SHOWS REGULAR RHYTHM, NO MURMURS AND NO GALLOPS. LUNGS ARE CLEAR TO AUSCULTATION. THE PATIENT IS IN A WHEELCHAIR. SHE HAS DIFFICULTY STANDING. HER WALK IS ANTALGIC. HER GAIT IS UNSTEADY. HER MRI IS SHOWING CENTRAL CANAL STENOSIS AND BULGING DISC AT MULTIPLE LEVELS. PSYCHOLOGY EVALUATION DATED 05/21/2020 ADVISES CONTINUING PSYCHOLOGY CARE BUT IT IS OKAY TO CONTINUE WITH THE TRIAL. ASSESSMENTS INTERVERTEBRAL DISC DISORDERS WITH RADICULOPATHY, LUMBAR REGION - M51.16 (PRIMARY) HISTORY OF MRSA INFECTION - Z86.14 HISTORY OF EDEMA - Z87.898 HISTORY OF DIABETES MELLITUS - Z86.39 HISTORY OF RENAL INSUFFICIENCY - Z87.448 HISTORY OF FACTOR V LEIDEN MUTATION - Z86.2 HISTORY OF ASTHMA - Z87.09 BELOW KNEE AMPUTATION - S88.119A TREATMENT INTERVERTEBRAL DISC DISORDERS WITH RADICULOPATHY, LUMBAR REGION [facility] MRI LUMBAR W/O CONTRAST (CPT [id number] CLINICAL NOTES: I DISCUSSED ALTERNATIVES WITH MS. FORD. I WOULD LIKE TO STOP THE ELIQUIS FOR 3 WEEKS, 2 WEEKS BEFORE THE TRIAL AND 1 WEEK DURING THE TRIAL. I WOULD LIKE TO TALK WITH THE RADIOLOGIST ABOUT HER MRI TO SEE IF THERE IS ADEQUATE SPACE. I REMINDED THE PATIENT ABOUT THE VANCOMYCIN AND THE HIBICLENS SOAP AND BACTROBAN NASAL SPRAY. I WILL REQUEST A NEW LUMBAR MRI HER LAST ONE HAS BEEN OVER A YEAR. I WILL ALSO REQUEST AUTHORIZATION FOR THE DORSAL COLUMN STIMULATOR TRIAL. THE PATIENT UNDERSTANDS AND AGREES WITH THE PLAN. I, BELINDA BOLDEN, DOCUMENTED THE ABOVE INFORMATION ACTING A SCRIBE FOR DR. SIMMONS. I HAVE REVIEWED THE ABOVE DOCUMENT, WRITTEN BY BELINDA BOLDEN, WINDOWS ARCHITECT, AND I VERIFY THAT IT IS ACCURATE. PROCEDURE CODES FA211 ESTABILISHED PATIENT [facility] CHARGE 54022 OFFICE/OUTPATIENT VISIT EST DISPOSITION & COMMUNICATION FOLLOW UP REQUEST AUTH FOR LUMBAR MRI ELECTRONICALLY SIGNED BY RONNIE SIMMONS MD, MD ON 09/17/2020 AT 02:09 PM EST DISCLAIMER : THIS IS A VISIT SUMMARY EXTRACTED FROM THE [employer] CHART. IT IS NOT A COPY OF THE [employer] PROGRESS NOTE. LAURIE
== END ==
LOC: M PAIN 14:45
PROVIDERS: ATTEND Anesthesiology
DX: M51.16 Intervertebral disc disorders with radiculopathy, lumbar region (principal); G89.29 Other chronic pain; E11.59 Type 2 diabetes mellitus with other circulatory complications; J44.9 Chronic obstructive pulmonary disease, unspecified; M79.7 Fibromyalgia; K21.9 Gastro-esophageal reflux disease without esophagitis; G47.33 Obstructive sleep apnea (adult) (pediatric); G25.81 Restless legs syndrome; Z86.14 Personal history of Methicillin resistant Staphylococcus aureus infection; Z89.512 Acquired absence of left leg below knee; Z86.59 Personal history of other mental and behavioral disorders; Z87.891 Personal history of nicotine dependence; Z88.0 Allergy status to penicillin; Z88.1 Allergy status to other antibiotic agents; Z88.2 Allergy status to sulfonamides; Z88.8 Allergy status to other drugs, medicaments and biological substances; Z91.018 Allergy to other foods; Z91.040 Latex allergy status; Z79.01 Long term (current) use of anticoagulants; Z79.4 Long term (current) use of insulin; Z79.899 Other long term (current) drug therapy

== ENCOUNTER → 2020-09-20 | Outpatient (CLI) | payer OTHER | LOC: M LABSMTC 08:27 | PROVIDERS: ATTEND Anesthesiology | DX: Z01.812 Encounter for preprocedural laboratory examination (principal); Z20.828 Contact with and (suspected) exposure to other viral communicable diseases ==

== ENCOUNTER 2020-09-25 07:42 | Day surgery (SDC) | payer OTHER ==
[~2020-09-25] VITALS: Ht 177.8 cm; Wt 120.2 kg
[~2020-09-25 07:42] MED LIST changes: +DUOVISC (0.50ML VISCOAT/0.55ML PROVISC) OPHTH KIT As Ordered ONE; +OFLOXACIN 0.3 % (OCUFLOX) OPTH SOL 5ML OS ONE; +PHENYLEPHRINE 2.5% OPHTH SOL 2ML OS ONE; +POVIDONE-IODINE 5% OPHTH PREP SOL 30ML As Ordered ONE; +PROPARACAINE 0.5% OPHTH SOL 15ML OS ONE; +TROPICAMIDE 1% OPHTH SOLN 2ML OS ONE
[2020-09-25] MEDS ORDERED: BSS IRR 500ML/OMIDRIA 4ML IRR BAG (OR ONLY) As Ordered ONE (09:19)
[2020-09-25] MEDS ORDERED: propofoL 200 MG/20 ML VIAL As Ordered ONE (09:50)
[2020-09-25] MEDS ORDERED: fentaNYL 250 MCG/5 ML INJECTION (J3010) As Ordered ONE (09:50)
[2020-09-25] MEDS ORDERED: MIDAZOLAM INJ 2MG/2ML VIAL (J2250 PER 1MG) As Ordered ONE (09:50)
[2020-09-25 09:57] VITALS: BP 145/70
--- NOTE | 2020-09-30 15:26 | RO ---
OPERATIVE NOTE DATE OF OPERATION: 09/25/2020 PREOPERATIVE DIAGNOSIS: 1. Visually significant nuclear sclerotic cataract, left eye. POSTOPERATIVE DIAGNOSIS: 1. Visually significant nuclear sclerotic cataract, left eye. PROCEDURE: Cataract extraction with use of phacoemulsification, and placement of intraocular lens, AU00T0, 20.0 D, left eye. SURGEON: Brandon Chirinos DO. ANESTHESIA: Local (Omidria with MAC). COMPLICATIONS: None. POSTOPERATIVE CONDITION: Stable. INDICATIONS FOR SURGERY: Blurred vision affecting patient's activities of daily living. DESCRIPTION OF PROCEDURE: The patient was seen in the preoperative area and properly identified. The correct operative eye was identified and marked. The patient received topical anesthetic, antibiotics, and topical dilating drops. The patient was then transferred to the operating room. The correct side was re-identified and a time-out was performed. The eye was prepped and draped in a sterile fashion. The eyelids were isolated with Tegaderm tape and the lids were held open with an adjustable speculum. A 1.0mm paracentesis incision was made. Omidria was then injected into the anterior chamber. Viscoelastic was then injected into the anterior chamber through the paracentesis. Using a 2.4mm sharp-tipped keratome, the anterior chamber was entered via a temporal clear cornea incision. A continuous curvilinear capsulorrhexis was created with Utrata forceps. Hydrodissection was performed with BSS on a blunt cannula until the nucleus was able to rotate freely. The crystalline lens was phacoemulsified and aspirated. Irrigation/aspiration was used to remove the cortical material Cohesive viscoelastic was placed into the capsular bag to deepen it. The implant was placed into the capsular bag and allowed to unfold. Placement was confirmed by visualizing the anterior capsulorrhexis. Irrigation/aspiration was used to remove the viscoelastic. The clear corneal incision was hydrated with BSS on a blunt cannula. The lens was well positioned. Intracameral antibiotic was injected into the anterior chamber. The incisions were then tested for leaks and found to be negative. The eye was then palpated for appropriate pressure and adjusted accordingly with BSS. The eyelid speculum was then carefully removed. A shield was placed over the eye. The patient tolerated the procedure well and was discharge to the recovery unit in a stable condition.
== END 2020-09-25 10:24 | disposition home or self-care (01) ==
LOC: M SDC 07:42
PROVIDERS: ATTEND Ophthalmology
DX: H25.12 Age-related nuclear cataract, left eye (principal); I10 Essential (primary) hypertension; E78.00 Pure hypercholesterolemia, unspecified; G43.909 Migraine, unspecified, not intractable, without status migrainosus; J45.909 Unspecified asthma, uncomplicated; G47.30 Sleep apnea, unspecified; Z79.899 Other long term (current) drug therapy
CPT/HCPCS: 66984; J1097; J2250; J3010

== ENCOUNTER → 2020-10-03 | Outpatient (REF) | payer OTHER ==
[~2020-10-03] MED LIST changes: -DUOVISC (0.50ML VISCOAT/0.55ML PROVISC) OPHTH KIT As Ordered ONE; -OFLOXACIN 0.3 % (OCUFLOX) OPTH SOL 5ML OS ONE; -PHENYLEPHRINE 2.5% OPHTH SOL 2ML OS ONE; -POVIDONE-IODINE 5% OPHTH PREP SOL 30ML As Ordered ONE; -PROPARACAINE 0.5% OPHTH SOL 15ML OS ONE; -TROPICAMIDE 1% OPHTH SOLN 2ML OS ONE
[2020-10-03 17:43] LABS: PERCENT SATURATION 13.1 % (13.2-45.0)
== END ==
LOC: M LAB REF 16:52
PROVIDERS: ATTEND Internal Medicine Nephrology
DX: D64.9 Anemia, unspecified (principal)

== ENCOUNTER → 2020-10-03 | Outpatient (CLI) | payer OTHER ==
--- NOTE | 2020-10-03 20:18 | REPVR ---
PROCEDURE INFORMATION: Exam: MR Lumbar Spine Without Contrast. Exam date and time: 10/03/2020 6:27 PM Age: 50 years old Clinical indication: Low back pain; Additional info: Intervertebral disc disorder w/ radiculopathy TECHNIQUE: Imaging protocol: Multiplanar magnetic resonance images of the lumbar spine without intravenous contrast. COMPARISON: MRI-Spine, L.S. without contrast 02/20/2019 11:07 AM FINDINGS: Vertebrae: The convention of 5 lumbar type vertebral bodies is used for this study. The alignment of the lumbar spine is within normal limits. No fracture or subluxation is noted. No pars defect is seen. The vertebral body heights are preserved. No infiltrative marrow replacing process is noted. There is no evidence for discitis or osteomyelitis. Spinal epidural space: There is no abnormal epidural fluid collection. Spinal cord: There is a fatty filum terminale, which is unchanged compared to the prior MRI lumbar spine on 02/20/2019. The conus medullaris terminates at approximately the T12-L1 level. T12-L1: Axial imaging was not performed at this level. The disc height is preserved. No disc herniation, spinal canal stenosis, or neural foraminal stenosis is noted. The facet joints are unremarkable. These findings are similar in appearance compared to the prior MRI lumbar spine on 02/20/2019. L1-L2: The disc height is preserved. No disc herniation, spinal canal stenosis, lateral recess stenosis, or neural foraminal stenosis is noted. The facet joints are unremarkable. These findings are similar in appearance compared to the prior MRI lumbar spine on 02/20/2019. L2-L3: The disc height is preserved. No disc herniation, spinal canal stenosis, lateral recess stenosis, or neural foraminal stenosis is noted. There is mild osteoarthritis of the facet joints. These findings are similar in appearance compared to the prior MRI lumbar spine on 02/20/2019. L3-L4: There is mild loss of disc height, disc desiccation, a broad-based posterior protrusion, fatty endplate degenerative changes on both sides of the anterior aspect of the disc space, endplate spurs projecting anteriorly, thickening of the ligamentum flavum, congenitally short pedicles, severe osteoarthritis of the left facet joint, and moderate osteoarthritis of the right facet joint. There is moderate stenosis of the thecal sac, which measures 5 mm in anterior to posterior dimension, previously measuring 7 mm in the prior MRI lumbar spine on 02/20/2019. No lateral recess or neural foraminal stenosis is noted. L4-L5: The disc height is preserved. No disc herniation, spinal canal stenosis, lateral recess stenosis, or neural foraminal stenosis is noted. There is thickening of the ligamentum flavum and mild osteoarthritis of the facet joints. These findings are similar in appearance compared to the prior MRI lumbar spine on 02/20/2019. L5-S1: There is mild loss of disc height, disc desiccation, a mild broad-based posterior protrusion, mild hypertrophy of the facet joints, a small right facet joint effusion, and thickening of the ligamentum flavum. No spinal canal stenosis, lateral recess stenosis, or neural foraminal stenosis is noted. These findings are similar in appearance compared to the prior MRI lumbar spine on 02/20/2019. Soft tissues: There is increased fluid sensitive signal in the interspinous spaces at the L2-L3, L3-L4, and L4-L5 levels, which may represent interspinous bursitis or a sprain of the interspinous ligaments. There is nonspecific edema in the subcutaneous tissues posteriorly along the midline of the lumbar spine. No drainable soft tissue fluid collection is seen. No muscular strain is noted. IMPRESSION: 1. L2-L3: Mild osteoarthritis of the facet joints, which is similar in appearance compared to the prior MRI lumbar spine on 02/20/2019. 2. L3-L4: Moderate stenosis of the thecal sac, which has progressed compared to the prior MRI lumbar spine on 02/20/2019, and there is mild loss of disc height, disc desiccation, a broad-based posterior protrusion, fatty endplate degenerative changes on both sides of the anterior aspect of the disc space, endplate spurs projecting anteriorly, thickening of the ligamentum flavum, congenitally short pedicles, severe osteoarthritis of the left facet joint, and moderate osteoarthritis of the right facet joint. 3. L4-L5: Thickening of the ligamentum flavum and mild osteoarthritis of the facet joints, which are similar findings compared to the prior MRI lumbar spine on 02/20/2019. 4. L5-S1: Mild loss of disc height, disc desiccation, a mild broad-based posterior protrusion, mild hypertrophy of the facet joints, a small right facet joint effusion, and thickening of the ligamentum flavum, which are similar findings compared to the prior MRI lumbar spine on 02/20/2019. 5. Increased fluid sensitive signal in the interspinous spaces at the L2-L3, L3-L4, and L4-L5 levels, which may represent interspinous bursitis or a sprain of the interspinous ligaments. Electronically signed by: Giovani Mcghee On 10/03/2020 20:18:21 PM
== END ==
LOC: M RAD 17:16
PROVIDERS: ATTEND Anesthesiology
DX: M47.896 Other spondylosis, lumbar region (principal); M51.36 Other intervertebral disc degeneration, lumbar region; M51.37 Other intervertebral disc degeneration, lumbosacral region

== ENCOUNTER → 2020-10-24 | Outpatient (CLI) | payer OTHER ==
--- NOTE | 2020-10-28 04:20 | ECWPNPC ---
PATIENT NAME: JOSS FORD : 1970 GENDER: FEMALE VISIT DATE: 10/24/2020 DISCHARGE DATE: 10/24/20 1614 VISIT LOCKED DATE TIME: PHYSICIAN: RONNIE SIMMONS MD PHYSICIAN PAGER NO: ACTIVE RESOURCE: RONNIE SIMMONS MD REASON FOR APPOINTMENT 1. REVIEW MRI HISTORY OF PRESENT ILLNESS GENERAL: 50-YEAR-OLD FEMALE PATIENT WITH A HISTORY OF CHRONIC LOW BACK AND BILATERAL LEG PAIN. SHE HAS BEEN SUFFERING FROM THIS CONDITION FOR MANY YEARS. THE PATIENT DESCRIBES THE PAIN SHARP AND SHOOTING WITH A PAIN SCORE RANGING FROM 7-10/10. THE PAIN IS WORSE IN HER BACK AND THE RIGHT LEG. HER CONDITION HAS DETERIORATED TO THE EXTENT THAT IN THE LAST YEAR, SHE IS WHEELCHAIR BLAKE. SHE HAS A LEFT BELOW KNEE AMPUTATION. SHE HAS PHANTOM PAIN IN THE LEFT LEG THAT MIMICS THE RIGHT LEG. THE PATIENT HAS TRIED MEDICATION MANAGEMENT, INJECTION THERAPY AND PHYSICAL THERAPY BUT THE PAIN PERSISTS. THE PATIENT IS INTERESTED IN A SPINAL COLUMN STIMULATOR TRIAL. FALL RISK SCREENING: SCREENING :TWO OR MORE FALLS WITHOUT INJURY IN THE PAST YEAR HAD TO GO TO THE ER AFTER ONE FALL DUE TO LOW BP CAUSING THE FALL, NO INJURY RESULTED FROM THE FALL. PAIN SCREENING: PATIENT HAS A COMPLAINT OF ACUTE OR CHRONIC PAIN :YES LOCATION OF PAIN:MID BACK, LOW BACK RIGHT LEG, PHANTOM PAINS IN LEFT LEG INTENSITY OF PAIN (SCALE OF 1 TO 10):9 9 WHEN STANDING/MOVING, 6 WHEN SEATED WHAT DOES YOUR PAIN FEEL LIKE:SHARP, SHOOTING, OTHER "AWFUL" DURATION:CONTINOUS, CONSTANT, STEADY, ALL DAY PAIN IS INCREASED BY:ACTIVITIES, PROLONGED STANDING PAIN IS DECREASED BY:USE OF PAIN MEDICATIONS, SITTING, OTHERS TREATMENT/MEDICATIONS USED TO MANAGE PAIN:OTC PAIN RELIEVERS, NSAIDS, TOPICAL CORTICOSTEROIDS, OPIOIDS, PHYSICAL THERAPY PAIN HAS INTERFERED WITH THE FOLLOWING:MOOD, WALKING ABILITY, SLEEP, ENJOYMENT OF LIFE, TOILETING, FOOD PREPARATION PLAN/GOALS/TREATMENT/INTERVENTION/FOLLOW UP:SEE PLAN PAIN CENTER INTAKE QUESTIONS: DO YOU HAVE A HISTORY OF MRSA? :YES LEFT FOOT PRIOR TO AMPUTATION DO YOU TAKE A BLOOD THINNERS? :YES ELIQUIS DO YOU HAVE ANY BLEEDING DISORDERS? :NO ANY NEW NUMBNESS OR WEAKNESS IN YOUR LEGS OR ARMS? :NO INCREASED PAIN LEADING TO INCREASED WEAKNESS ANY PACEMAKER,DEFIBRILLATOR, OR DORSAL COLUMN STIMULATOR? :NO DO YOU HAVE ANY RASHES OR OPEN SORES? :NO ARE YOU ALLERGIC TO IV DYE? :NO ARE YOU DIABETIC? :YES NOON 132 ANY NEW PROBLEMS WITH YOUR MEDICATIONS? :NO HAVE YOU RECEIVED A VACCINE IN THE PAST 30 DAYS? :NO DO YOU PLAN TO RECEIVE A VACCINE IN THE NEXT 21 DAYS? :NO DO YOU NEED ANY PRESCRIPTION? :NO DO YOU TAKE ANY IMMUNOSUPPRESSIVE MEDICATIONS? :NO IS THERE A CHANCE YOU COULD BE ? :NO ARE YOU BREAST FEEDING? :NO CURRENT MEDICATIONS TAKING CLOBETASOL PROPIONATE 0.05 % SOLUTION 1 APPLICATION TO AFFECTED AREA EXTERNALLY TWICE A DAY TO SCALP TAKING KETOCONAZOLE 2 % SHAMPOO 5 APPLICATIONS TO SCALP EXTERNALLY ONCE A DAY AND LET SIT FOR 5 MINUTES TAKING BACTROBAN 2% OINTMENT DIRECTED APPLIED TOPICALLY TWICE A DAY TAKING HIBICLENS 4 % LIQUID DIRECTED EXTERNALLY TWICE A DAY TAKING CYCLOBENZAPRINE HCL 10 MG TABLET 1 TAB ORALLY THREE TIMES A DAY PRN MUSCLE SPASMS TAKING RESTASIS 0.05 % EMULSION 1 DROP INTO AFFECTED EYE OPHTHALMIC THREE TIMES A DAY TAKING MAGNESIUM CHLORIDE 64 MG TABLET DELAYED RELEASE 1 TABLET ORALLY DAILY TAKING ZOFRAN 8 MG TABLET 1 TAB PRN NAUSEA ORALLY EVERY 12 HOURS TAKING COLLAGEN ULTRA - CAPSULE 1 CAP ORALLY DAILY TAKING NYSTATIN POWDER [id number] UNIT POWDER POWDER EXTERNALLY TO BILATERAL BERAST AND ABD PANNUS DAILY NEEDED DAILY TAKING WHEELCHAIR - MISCELLANEOUS DIRECTED DX Z89.51, M54.41 TAKING MISC. DEVICES - MISCELLANEOUS DIRECTED REPAIR AND REPLACE PROSTHETIC AND LINERS NEEDED; DX Z89.51 TAKING MAY USE - - WHEEL CHAIR DX CODE Z89.512 _ TAKING REFRESH 1 % SOLUTION 1 DROP INTO AFFECTED EYE NEEDED OPHTHALMIC FOUR TIMES DAILY PRN TAKING BETAMETHASONE VALERATE 0.1 % CREAM 1 APPLICATION TO AFFECTED AREA EXTERNALLY ONCE A DAY TAKING BD PEN MINI - MISCELLANEOUS DIRECTED E11.9 QID TAKING PROBIOTIC - TABLET DELAYED RELEASE ORALLY TAKING EPIPEN 0.3 MG/0.3ML DEVICE 1 INJECTION INJECTION NEEDED FOR ALLERGIC REACTION TAKING FREESTYLE ANDREA 14 DAY SENSOR - MISCELLANEOUS DIRECTED DX E11.9 TAKING WHEELCHAIR - MISCELLANEOUS DIRECTED POWER WHEELCHAIR; DX M54.41, G56.21, Z89.512, M62.81 TAKING SYMBICORT 80-4.5 MCG/ACT AEROSOL 2 PUFFS INHALATION TWICE A DAY TAKING PROAIR HFA 108 (90 BASE) MCG/ACT AEROSOL SOLUTION 2 PUFFS NEEDED INHALATION EVERY 6 HRS TAKING LYRICA 300 MG CAPSULE 1 CAPSULE ORALLY TWICE A DAY (PAIN CLINIC) TAKING SINGULAIR 10 MG TABLET 1 TABLET ORALLY ONCE A DAY TAKING VALACYCLOVIR HCL 1 GM TABLET 1 TABLET ORALLY EVERY 24 HRS NEEDED TAKING XOPENEX 1.25 MG/3ML NEBULIZATION SOLUTION 3 ML INHALATION EVERY 6 HOURS NEEDED TAKING TAMSULOSIN HCL 0.4 MG CAPSULE EXTENDED RELEASE ORALLY DAILY HS TAKING TRAZODONE HCL 100 MG TABLET 2 TABLETS ORALLY ONCE A DAY AT HS TAKING ROSUVASTATIN CALCIUM 10 MG TABLET 1 TABLET ORALLY ONCE A DAY TAKING ELIQUIS 5 MG TABLET 1 TABLET ORALLY BID TAKING CETIRIZINE HCL 10 MG TABLET 1 TABLET ORALLY ONCE A DAY TAKING CHOLECALCIFEROL 07070 UNIT CAPSULE 1 CAPSULE ORALLY ONCE A WEEK ON TUESDAY TAKING ROPINIROLE HCL 2 MG TABLET 1 TABLET AT 8 PM AND AT MIDNIGHT ORALLY BID TAKING CYMBALTA 60 MG CAPSULE DELAYED RELEASE PARTICLES 2 CAPSULES ORALLY DAILY TAKING METHYLPHENIDATE HCL ER (LA) 20 MG CAPSULE EXTENDED RELEASE 24 HOUR 1 CAPSULE IN THE MORNING ORALLY ONCE A DAY TAKING PEN NEEDLES 12/30" 31G X 5 MM MISCELLANEOUS DIRECTED 5 TIMES DAILY TAKING TORSEMIDE 20 MG TABLET 2 TAB ORALLY DAILY TAKING HYDROCODONE-ACETAMINOPHEN 10-325 MG TABLET 1 TABLET NEEDED ORALLY EVERY 4 HRS TAKING TRESIBA 200 U/ML 300 UNITS SUBCUTANEOUSLY DAILY TAKING HUMALOG KWIKPEN 200 UNIT/ML SOLUTION PEN-INJECTOR DIRECTED SUBCUTANEOUS TID PER SLIDING SCALE; MAX DAILY #40 UNITS TAKING DEXILANT 60 MG CAPSULE DELAYED RELEASE 1 CAPSULE ORALLY ONCE A DAY MEDICATION LIST REVIEWED AND RECONCILED WITH THE PATIENT PAST MEDICAL HISTORY 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 DELA CRUZ TEMPORAL LOBE SEIZURES IN , NONE RECENTLY GERD, HIATAL HERNIA, GASTROPARESISI - DR. TAVERAS HERPES SIMPLEX II VIA PCR ON LESIONS ON BACK FATTY LIVER + FVL, RECURRENT DVTS TYPE 2 DIABETES MELLITUS WITH OTHER CIRCULATORY COMPLICATIONS - NEFTALY HX RECTO-SIGMOID ISCHEMIC COLITIS 03/2018 CONFIRMED BY SIGMOID C BX-NITIN, JANETHSNTERIC ARTERIOGRAM S INTERVENTION HX URINARY RETENTION - [facility] UROLOGY HX MCCOLLUM'S PALSY - NEURO PA - NONCOMPLIANT WITH CPAP CKD3 - NEPHROLOGY HISTORY OF MRSA RLS, NOCTURNAL LEG CRAMPS IRON DEFICIENCY ANEMIA ALLERGIES LATEX (FOR ALLERGY USE ONLY): ANAPHYLAXIS - ALLERGY PENICILLIN (FOR ALLERGIES USE ONLY): ANAPHYLAXIS - ALLERGY SULFA (FOR ALLERGY USE ONLY): HIVES - ALLERGY TRICOR: HIVES - ALLERGY GLUCOPHAGE: HIVES - ALLERGY LIPITOR: HIVES - ALLERGY ZOCOR: HIVES - ALLERGY FRESH PINEAPPLE: SWOLLEN LIPS/ SORES IN MOUTH - ALLERGY KEFLEX: HIVES - ALLERGY SURGICAL HISTORY GALLBLADDER 1996 CERVICAL DISCECTOMY C5-6 FUSION 1994 HYSTERECTOMY FOR PROLAPSE/ENDOMETRIOSIS 2000 LUMPECTOMY RIGHT BREAST 2004 SKIN LESION REMOVED 2004 MULTIPLE DIAGNOSTIC LAPAROSCOPIES VENOUS PORTACATH LEFT CHEST X2 PICC LINE LEFT & RIGHT UPPER ARM X3 APPENDECTOMY 2009 EXCISED ABCESSED WOUNDS X3 DUE TO INFECTION. ULNAR RELEASE RIGHT ARM/HAND CHANI CATH X2 STOOL TRANSPLANT PORT PLACED 12/23/2016 ULNAR RELEASE AND CARPAL TUNNEL RELEASE RIGHT ARM WITH REVISION: DR. RECINOS LEFT CHARCOT FOOT DEBRIDEMENT: DR. LILLY 02/2017 LEFT BKA FOR CHRONIC WOUND/OSTEOMYELITIS 05/2017 EGD- GASTRIC POLYP RESECTED; DR. TAVERAS 06/2018 COLONOSCOPY - SIGMOID ULCER; DR. TAVERAS 06/2018 EGD - NORMAL; DR. TAVERAS 10/2018 RIGHT EYE CATARACT SURGERY 08/2020 LEFT EYE CATARACT SURGERY 09/2020 FAMILY HISTORY FATHER: 82 YRS, HEART ISSUES, PACEMAKER, PROSTATE CANCER MOTHER: 80 YRS, OSTEOPOROSIS, HTN, STROKE 2X SIBLINGS: ALIVE, DIABETES 2 BROTHER(S) , 5 SISTER(S) . BROTHER WITH TYPE I DIABETESSISTER WITH HYPERTENSIONDENIES ANY FH OF MELANOMA OR PANCREATIC CANCERS. SOCIAL HISTORY GENERAL: TOBACCO USE ARE YOU A:FORMER SMOKER HOW LONG HAS IT BEEN SINCE YOU LAST SMOKED?6-12 MONTHS LATEX QUESTIONNAIRE LATEX ALLERGY : HAVE YOU EVER DEVELOPED ANY TYPE OF REACTION AFTER HANDLING LATEX PRODUCTS SUCH RUBBER GLOVES, CONDOMS, DIAPHRAGMS, BALLOONS, SOCKS, OR UNDERWEAR?YES - PLEASE INDICATE :RUBBER GLOVES, CONDOMS, BALLOONS LATEX ALLERGY : HAVE YOU EVER DEVELOPED ANY TYPE OF REACTION DURING OR AFTER DENTAL APPOINTMENT, VAGINAL/RECTAL EXAMINATION, SURGICAL PROCEDURE, OR ANY OTHER EXPOSURE?YES - PLEASE INDICATE :VAGINAL EXAM, RECTAL EXAM LATEX RISK : HAVE YOU EVER HAD ANY DIFFICULTY BREATHING OR HIVES AFTER EATING OR HANDLING ANY FRUITS, OR VEGETABLES; SUCH KIWI, BANANAS, STONE FRUITS, OR CHESTNUTSNO LATEX RISK : DO YOU HAVE A PREVIOUS PERSONAL HISTORY OF MORE THAN NINE SURGERIES, SPINA BIFIDA, OR REPEATED CATHERIZATIONS? YES - PLEASE INDICATE : > 9 SURGERIES LATEX RISK : ARE YOU FREQUENTLY EXPOSED TO LATEX PRODUCTS IN YOUR OCCUPATION?NO DATE ASKED : 10/24/2020 ACTIVE LATEX ALLERGY LUNG CANCER SCREENING SMOKING STATUS:FORMER SMOKER IS THE PATIENT BETWEEN THE AGE OF 54 AND 76?NO BMI CARE GOAL FOLLOW-UP ABOVE NORMAL BMI [facility] REGARDING DIET ALCOHOL SCREENING POINTS: 0, INTERPRETATION: NEGATIVE. RECREATIONAL DRUG USE DENIES. CAFFEINE CAFFEINE USE?NO SEXUAL HX HAD SEX IN THE LAST 12 MONTHS (VAGINAL, ORAL, OR ANAL)?YES WITHMEN ONLY PREVENTION STRATEGIES DISCUSSED:CONDOMS USE PROTECTION?NO HAVE YOU EVER HAD AN STD?NO HIV / HEP-C SCREENING HIV TEST OFFERED TO PATIENT:NO HEP-C TEST OFFERED TO PATIENT:NO SABIANISM [id number] NONE LANGUAGE LANGUAGES SPOKEN:CITIZ[place] OF [place] EDUCATION SOME COLLEGE. LEARNING BARRIERS / SPECIAL NEEDS CHANGE FROM LAST VISIT?NO BARRIERS TO LEARNING?NO HEARING IMPAIRED?NO VISION IMPAIRED?YES COGNITIVELY IMPAIRED?NO :CORRECTIVE LENSES READINESS TO LEARN?YES LEARNING PREFERENCES?NO LEARNING CAPABILITIES PRESENT?YES EMOTIONAL BARRIERS?NO SPECIAL DEVICES?YES :CANE, WALKER, WHEELCHAIR LEFT LEG PROSTHETIC EVENT COORDINATOR NEEDED?NO DOMESTIC VIOLENCE DO YOU FEEL SAFE IN YOUR ENVIRONMENT?YES OCCUPATION: UNEMPLOYED. DIET: CARBOHYDRATE CONTROLLED. EXERCISE: NO REGULAR EXERCISE. MARITAL STATUS: . OTHERS AT HOME: SPOUSE. PAIN CLINIC PFS, CLERGY, PUBLIC HEALTH REFERRALS HAS THE PATIENT BEEN EDUCATED REGARDING HIS/HER PLAN OF CARE?YES EDUCATED PT REGARDING PROCEDURE, PT ACKNOWLEDGED UNDERSTANDING. HAS THE PATIENT BEEN EDUCATED REGARDING PAIN, THE RISK FOR PAIN, THE IMPORTANCE OF EFFECTIVE PAIN MANAGEMENT, AND THE PAIN ASSESSMENT PROCESS?YES HOUSING: OWNS HOME. ADVANCE DIRECTIVE ADVANCE DIRECTIVE DISCUSSED WITH PATIENT:YES PT HAS HCP, JAYASHREE FORD [phone] HOSPITALIZATION/MAJOR DIAGNOSTIC PROCEDURE SEPSIS, L FOOT ULCER, SUSPECTED COLITIS 08/23/2014 DVT RLL 09/06/2014 SEPTIC SHOCK SECONDARY TO MULTIPLE SKIN ULCERS 10/22/2014 LOW BLOOD SUGERS AND INFECTIONS 11/11/2014 RLL CELLULITUS AND OSTEOMYELITIS 01/06/2015 HYPOTENSION, SYNCOPE 02/21/2015 DIABETIC FOOT ULCER OSTEO 04/30/15 STAPH HOMINIS LINE SEPSIS MSSA CHRONIC OSTEOMELYTIS FOOT 05/15/15 WOUND INFECTION 06/2015 SEPSIS 06/2015 SEPSIS 07/2015 ADMITTED FOR PORT INFECTION 11/2015 C-DIFF 12/2015 LEFT FOOT R/O OSTEOMYELITIS. 05/27/2016 HYPERGLYCEMIA IN AN UNCONTROLLED TYPE I DIABETIC, R SIDED FLANK PAIN, CKD, HYPONATREMIA SECONDARY TO HYPERGLYCEMIA, ANXIETY, DEPRESSION, HYPERTENSION, ASTHMA, HX OF DVT, UTI 08/30-09/03/2016 CELLULITIS LEFT FOOT 01/13/17-01/19/17 CELLULITIS OF THE RIGHT LOWER FOOT, MILD ACUTE RENAL FAILURE 04/12/17-04/14/17 KIDNEY INJURY 10/05 HYPERGYYCEMIA, HYOERTENSION, HYPERKALEMIA, ACUTE KIDNEY INJURY 10/25/2017 DEHYDRATION AND ALTERED MENTAL STATUS 02/14/2018 ACUTE SIGMO-RECTAL ISCHEMIC COLITIS C SEVERE SEPSIS/MELODY I/TME/BLOODY STOOLS/ELEVATED BHG BUT PH 7.6 (WBC ON ADMISSION 17K, PEAK CR 1.7), CONFIRMED BY SIGMOID C BX-REINDL, -BCX X 2, -GI PANEL -UCX, MESENTERIC ARTERIOGRAM DONE BY SRAVAN Hernandez INTERVENTION//CT HE 03/20- LETICIA LOCKETT 10/08/2018 3 DAYS RENAL FAILURE 05/22/2019 RIGHT FOOT CELLULITIS 06/2019 HYPOTENSION W/ FALL 05/27/20 REVIEW OF SYSTEMS CONSTITUTIONAL: ANY RECENT FEVER NO . CHILLS NO . WEIGHT CHANGE OF UNKNOWN REASONS NO . GASTROENTEROLOGY: NEW UNEXPLAINABLE CHANGES IN BOWEL CONTROL YES, NEW LOSS OF CONTROL . CONSTIPATION NO . GENITOURINARY: ANY NEW CHANGE IN BLADDER CONTROL? HISTORY OF URINARY INCONTINENCE . NEUROLOGY: NEW ONSET DIZZINESS OR NEUROLOGICAL CHANGES NOT MENTIONED NO . NEW NUMBNESS OR PAIN PATTERNS NOT MENTIONED AND PERTINENT TO TODAY'S VISIT NO . CARDIOLOGY: NEW CHEST PRESSURE NO . NEW CHEST PAIN NO . RESPIRATORY: UNEXPLAINABLE COUGH NO . NEW SHORTNESS OF BREATH NO . VITAL SIGNS WT 263 LBS, WT-KG PER PT, HT 70 IN, BMI 37.73 INDEX, BP 148/81 MM HG, HR 91 /MIN, RR 19 /MIN, TEMP 96.5 F, OXYGEN SAT % 98%, BLOOD GLUCOSE LEVEL 132 THIS NOON, SAFE IN ENV? (Y/N) YES, NA INITIALS MS 14:01, REVIEWED BY: MTM. CHAVES SMALL BOAT ENGINEER. EXAMINATION GENERAL EXAMINATION: THE PATIENT IS ALERT, ORIENTED TIMES THREE AND COOPERATIVE. LUNGS ARE CLEAR TO AUSCULTATION. HEART SHOWS REGULAR RHYTHM, NO MURMURS AND NO GALLOPS. THE PATIENT IS IN A WHEELCHAIR. SHE STANDS WITH DIFFICULTY AND UNSTEADY GAIT. STRAIGHT LEG RAISE IS POSITIVE FOR RADICULOPATHY ON THE RIGHT AT 30 DEGREES. THE LEGS ARE WEAK ON FLEXION AND EXTENSION. MRI OF THE LUMBAR SPINE DATED 02/20/2019 SHOWS BULGING DISC AT MULTIPLE LEVELS INCLUDING AT L3-L4 AND L5-S1. ASSESSMENTS INTERVERTEBRAL DISC DISORDERS WITH RADICULOPATHY, LUMBAR REGION - M51.16 (PRIMARY) NEUROPATHIC PAIN OF LOWER EXTREMITY - M79.2 HISTORY OF MRSA INFECTION - Z86.14 HISTORY OF FACTOR V LEIDEN MUTATION - Z86.2 HISTORY OF EDEMA - Z87.898 HISTORY OF DIABETES MELLITUS - Z86.39 HISTORY OF RENAL INSUFFICIENCY - Z87.448 HISTORY OF ASTHMA - Z87.09 BELOW KNEE AMPUTATION - S88.119A TREATMENT INTERVERTEBRAL DISC DISORDERS WITH RADICULOPATHY, LUMBAR REGION CLINICAL NOTES: I DISCUSSED ALTERNATIVES WITH MS. FORD. THE PATIENT HAS BEEN DENIED FOR THE DORSAL COLUMN STIMULATOR TRIAL. I WANT TO APPEAL THIS. THE PATIENT HAS BEEN IN A WHEELCHAIR WITH NO QUALITY OF LIFE. THE PATIENT STATES SHE CANNOT CONTINUE HER LIFE IN THIS WAY. WE ARE REQUESTING A 1 WEEK TRIAL FOR THE DORSAL COLUMN STIMULATOR TO SEE IF IT IS AN OPTION FOR HER. THE PATIENT WOULD LIKE TO ATTEMPT SOME SORT OF SOLUTION EVEN THOUGH INJECTION THERAPY HAS NOT HELPED, THE PATIENT IS VERY DESPERATE. SO I WILL REQUEST AUTHORIZATION FOR RIGHT L3-L4, L4-L5, L5-S1 TRANSFORAMINAL WITH IV SEDATION DUE TO ANXIETY AND DISCOMFORT ASSOCIATED WITH THE PROCEDURE. ALSO, I AM GOING TO REFER HER FOR SURGICAL EVALUATION TO SEE IF THERE IS A SURGICAL SOLUTION. THE PATIENT REPORTS UNDERSTANDING AND AGREES WITH THE PLAN. I, BELINDA BOLDEN, DOCUMENTED THE ABOVE INFORMATION ACTING A SCRIBE FOR DR. SIMMONS. I HAVE REVIEWED THE ABOVE DOCUMENT, WRITTEN BY BELINDA BOLDEN, DINKER, AND I VERIFY THAT IT IS ACCURATE. [facility] RE[facility]ON:LOW BACK PAIN,LUMBAR DISC DISORDER WITH RADICULOPATHY ,BELOW-KNEE AMPUTATION PROCEDURE CODES FA211 ESTABILISHED PATIENT [facility] CHARGE 79202 OFFICE/OUTPATIENT VISIT EST DISPOSITION & COMMUNICATION FOLLOW UP FOLLOW UP IN 1 MONTH AND REQUEST AUTH FOR RIGHT TRANSFORAMINAL EPIDURAL STEROID INJECTION L3-L4, L4-L5, L5-S1 WITH IV SEDATION, HOLD MED (REASON: FOLLOW UP IN 1 MONTH AND REQUEST AUTH FOR RIGHT TRANSFORAMINAL EPIDURAL STEROID INJECTION L3-L4, L4-L5, L5-S1 WITH IV SEDATION, HOLD MED) ELECTRONICALLY SIGNED BY RONNIE SIMMONS MD, MD ON 10/27/2020 AT 04:48 PM EST DISCLAIMER : THIS IS A VISIT SUMMARY EXTRACTED FROM THE [employer] CHART. IT IS NOT A COPY OF THE [employer] PROGRESS NOTE. LAURIE
== END ==
LOC: M PAIN 13:45
PROVIDERS: ATTEND Anesthesiology
DX: M51.16 Intervertebral disc disorders with radiculopathy, lumbar region (principal); M79.2 Neuralgia and neuritis, unspecified; Z86.14 Personal history of Methicillin resistant Staphylococcus aureus infection; Z86.2 Personal history of diseases of the blood and blood-forming organs and certain disorders involving the immune mechanism; Z87.898 Personal history of other specified conditions; Z86.39 Personal history of other endocrine, nutritional and metabolic disease; Z87.448 Personal history of other diseases of urinary system; Z87.09 Personal history of other diseases of the respiratory system; Z89.512 Acquired absence of left leg below knee; I12.9 Hypertensive chronic kidney disease with stage 1 through stage 4 chronic kidney disease, or unspecified chronic kidney disease; F41.9 Anxiety disorder, unspecified; M79.7 Fibromyalgia; K21.9 Gastro-esophageal reflux disease without esophagitis; K44.9 Diaphragmatic hernia without obstruction or gangrene; K76.0 Fatty (change of) liver, not elsewhere classified; G47.33 Obstructive sleep apnea (adult) (pediatric); N18.30 Chronic kidney disease, stage 3 unspecified; D50.9 Iron deficiency anemia, unspecified; Z87.891 Personal history of nicotine dependence; Z79.01 Long term (current) use of anticoagulants; Z79.899 Other long term (current) drug therapy; Z79.4 Long term (current) use of insulin; Z88.0 Allergy status to penicillin; Z88.2 Allergy status to sulfonamides; Z88.1 Allergy status to other antibiotic agents; Z88.8 Allergy status to other drugs, medicaments and biological substances; Z91.040 Latex allergy status

== ENCOUNTER → 2020-10-31 | Outpatient (REF) | payer OTHER ==
[~2020-10-31] MED LIST changes: -AMIT25TA PO; +AMIT25TA17 PO
== END ==
LOC: M SFHCPLAZ 18:43
PROVIDERS: ATTEND Surgery
DX: N60.82 Other benign mammary dysplasias of left breast (principal)

== ENCOUNTER → 2020-10-31 | Outpatient (REF) | payer OTHER | LOC: M PLALAB 15:02 | PROVIDERS: ATTEND Surgery | DX: N60.82 Other benign mammary dysplasias of left breast (principal) ==

== ENCOUNTER → 2020-11-07 | Outpatient (CLI) | payer OTHER ==
[~2020-11-07] MED LIST changes: +MONT10TA10 PO; -MONT5TAB2 PO; -QUET1TAB10 PO; +QUET300T2 PO
--- NOTE | 2020-11-10 23:52 | ECWPNPC ---
PATIENT NAME: JOSS FORD : 1970 GENDER: FEMALE VISIT DATE: 11/07/2020 DISCHARGE DATE: 11/07/20 1615 VISIT LOCKED DATE TIME: PHYSICIAN: RONNIE SIMMONS MD PHYSICIAN PAGER NO: ACTIVE RESOURCE: RONNIE SIMMONS MD REASON FOR APPOINTMENT 1. PRE SEDATE FOR RIGHT TRANSFORAMINAL EPIDURAL STEROID INJECTION L3-L4, L4-L5, L5-S1 WITH IV SEDATION 2. KIDNEY DISEASE, CAREFUL WITH USING DYE HISTORY OF PRESENT ILLNESS GENERAL: 50-YEAR-OLD FEMALE PATIENT WITH A HISTORY OF CHRONIC BACK AND BILATERAL LEG PAIN. THE PATIENT DESCRIBES THE PAIN ACHING, SEVERE AND SHOOTING WITH A PAIN SCORE RANGING FROM 7-10/10 IN THE BACK WITH RADIATION DOWN BOTH LEGS BUT MAINLY THE RIGHT LEG. THIS IS AFFECTING HER ABILITIES TO MOVE AROUND. SHE IS BASICALLY IN A WHEELCHAIR RIGHT NOW. THE PATIENT HAS A HISTORY OF A LEFT BELOW KNEE AMPUTATION. THE PATIENT HAS TRIED MANY MEDICATIONS AND THE PAIN PERSISTS. FALL RISK SCREENING: SCREENING :TWO OR MORE FALLS WITHOUT INJURY IN THE PAST YEAR PAIN SCREENING: PATIENT HAS A COMPLAINT OF ACUTE OR CHRONIC PAIN :YES LOCATION OF PAIN:LOW BACK, LEG(S), OTHER: BUTTOCKS INTENSITY OF PAIN (SCALE OF 1 TO 10):7 WHAT DOES YOUR PAIN FEEL LIKE:BURNING, CONTINOUS, SHOOTING DURATION:CONTINOUS, CONSTANT PAIN IS INCREASED BY:ACTIVITIES, PROLONGED STANDING, OTHERS WALKING PAIN IS DECREASED BY:USE OF PAIN MEDICATIONS, SITTING NURSING NOTE: -. PAIN CENTER INTAKE QUESTIONS: DO YOU HAVE A HISTORY OF MRSA? :YES LEFT FOOT PRIOR TO AMPUTATION DO YOU TAKE A BLOOD THINNERS? :YES ELIQUIS DO YOU HAVE ANY BLEEDING DISORDERS? :NO ANY NEW NUMBNESS OR WEAKNESS IN YOUR LEGS OR ARMS? :NO ANY PACEMAKER,DEFIBRILLATOR, OR DORSAL COLUMN STIMULATOR? :NO DO YOU HAVE ANY RASHES OR OPEN SORES? :YES SCABBED SORES TO BACK FROM BURN FROM HEATING PAD ARE YOU ALLERGIC TO IV DYE? :NO ARE YOU DIABETIC? :YES ANY NEW PROBLEMS WITH YOUR MEDICATIONS? :NO HAVE YOU RECEIVED A VACCINE IN THE PAST 30 DAYS? :NO DO YOU PLAN TO RECEIVE A VACCINE IN THE NEXT 21 DAYS? :NO DO YOU NEED ANY PRESCRIPTION? :NO DO YOU TAKE ANY IMMUNOSUPPRESSIVE MEDICATIONS? :NO IS THERE A CHANCE YOU COULD BE ? :NO ARE YOU BREAST FEEDING? :NO CURRENT MEDICATIONS TAKING LEVOFLOXACIN 250 MG TABLET 2 TABLETS ORALLY ONCE A DAY TAKING ALLOPURINOL 300 MG TABLET TAKE ONE TABLET BY MOUTH EVERY DAY ORAL TAKING PREGABALIN 300 MG CAPSULE 2 CAPSULES ORAL BID TAKING CYCLOBENZAPRINE HCL 10 MG TABLET TAKE ONE TABLET BY MOUTH THREE TIMES A DAY ORAL TAKING HYDROCODONE-ACETAMINOPHEN 10-325 MG TABLET (SCHEDULE II DRUG) TAKE ONE TABLET BY MOUTH EVERY 4 HOURS MAXIMUM DAILY DOSE 6 TABLETS ORAL TAKING KETOROLAC TROMETHAMINE 0.5 % SOLUTION INSTILL 1 DROP IN THE RIGHT EYE FOUR TIMES A DAY OPHTHALMIC TAKING DULOXETINE HCL 60 MG CAPSULE DELAYED RELEASE PARTICLES TAKE TWO CAPSULES BY MOUTH EVERY DAY ORAL TAKING ONDANSETRON HCL 8 MG TABLET TAKE ONE TABLET BY MOUTH EVERY 12 HOURS NEEDED FOR NAUSEA ORAL TAKING DEXILANT 60 MG CAPSULE DELAYED RELEASE TAKE ONE CAPSULE BY MOUTH EVERY DAY ORAL TAKING ELIQUIS 5 MG TABLET TAKE ONE TABLET BY MOUTH TWICE A DAY ORAL TAKING TAMSULOSIN HCL 0.4 MG CAPSULE TAKE ONE CAPSULE BY MOUTH EVERY DAY ORAL TAKING TORSEMIDE 20 MG TABLET 1 TABLET ORAL DAILY PRN TAKING VITAMIN D (ERGOCALCIFEROL) 1.25 MG (36285 UT) CAPSULE TAKE 1 CAPSULE BY MOUTH ONCE WEEKLY ON TUESDAY ORAL TAKING TRAZODONE HCL 100 MG TABLET TAKE TWO TABLETS BY MOUTH AT BEDTIME ORALLY TAKING TRESIBA FLEXTOUCH 200 UNIT/ML SOLUTION PEN-INJECTOR INJECT 320 UNITS SUBCUTANEOUSLY DAILY SUBCUTANEOUS TAKING PREDNISOLONE ACETATE 1 % SUSPENSION INSTILL 1 DROP IN THE RIGHT EYE FIVE TIMES A DAY OPHTHALMIC TAKING METHYLPHENIDATE HCL ER (LA) 20 MG CAPSULE EXTENDED RELEASE 24 HOUR (SCHEDULE II DRUG) TAKE ONE CAPSULE BY MOUTH EVERY MORNING MAXIMUM DAILY DOSE 1 CAPSULE ORAL TAKING HUMALOG KWIKPEN 200 UNIT/ML SOLUTION PEN-INJECTOR INJECT THREE TIMES A DAY PER SLIDING SCALE MAXIMUM DAILY DOSE 40 UNITS SUBCUTANEOUS TAKING ALBUTEROL SULFATE HFA 108 (90 BASE) MCG/ACT AEROSOL SOLUTION 2 PUFFS NEEDED INHALATION EVERY 4 HRS TAKING NYSTATIN - POWDER DIRECTED TAKING XOPENEX 1.25 MG/3ML NEBULIZATION SOLUTION 3 ML INHALATION EVERY 6 HRS PRN TAKING SYMBICORT 80-4.5 MCG/ACT AEROSOL 2 PUFFS INHALATION BID TAKING PROBIOTIC - CAPSULE DIRECTED ORALLY DAILY TAKING SINGULAIR 10 MG TABLET 1 TABLET ORALLY ONCE A DAY TAKING CLARITIN 10 MG TABLET 1 TABLET ORALLY ONCE A DAY TAKING MAG64 64 MG TABLET DELAYED RELEASE 1 TABLET ORALLY DAILY TAKING REQUIP 4 MG TABLET 1 TABLET ORALLY BID TAKING COLLAGEN 500 MG CAPSULE DIRECTED ORALLY DAILY NOT-TAKING BROMSITE 0.075 % SOLUTION THREE DAYS PRIOR TO SURGERY START ONE DROP IN THE RIGHT EYE TWO TIMES A DAY OPHTHALMIC NOT-TAKING INVELTYS 1 % SUSPENSION DAY OF SURGERY REMOVE PATCH AND START ONE DROP IN THE RIGHT EYE TWO TIMES A DAY OPHTHALMIC NOT-TAKING MOXIFLOXACIN HCL 0.5 % SOLUTION STARTING 3 DAYS PRIOR TO SURGERY INSTILL ONE DROP IN THE RIGHT EYE FOUR TIMES A DAY OPHTHALMIC NOT-TAKING ESZOPICLONE 3 MG TABLET (SCHEDULE IV DRUG) TAKE ONE TABLET BY MOUTH AT BEDTIME MAXIMUM DAILY DOSE 1 ORAL MEDICATION LIST REVIEWED AND RECONCILED WITH THE PATIENT PAST MEDICAL HISTORY 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 DELA CRUZ TEMPORAL LOBE SEIZURES IN , NONE RECENTLY GERD, HIATAL HERNIA, GASTROPARESISI - DR. TAVERAS HERPES SIMPLEX II VIA PCR ON LESIONS ON BACK FATTY LIVER + FVL, RECURRENT DVTS TYPE 2 DIABETES MELLITUS WITH OTHER CIRCULATORY COMPLICATIONS - NEFTALY HX RECTO-SIGMOID ISCHEMIC COLITIS 03/2018 CONFIRMED BY SIGMOID C BX-NITIN, MSESNTERIC ARTERIOGRAM S INTERVENTION HX URINARY RETENTION - [facility] UR[facility]Y HX MCCOLLUM'S PALSY - NEURO PA - NONCOMPLIANT WITH CPAP CKD3 - NEPHROLOGY HISTORY OF MRSA RLS, NOCTURNAL LEG CRAMPS IRON DEFICIENCY ANEMIA L-BREAST I&D ALLERGIES LATEX (FOR ALLERGY USE ONLY): ANAPHYLAXIS - ALLERGY PENICILLIN (FOR ALLERGIES USE ONLY): ANAPHYLAXIS - ALLERGY SULFA (FOR ALLERGY USE ONLY): HIVES - ALLERGY TRICOR: HIVES - ALLERGY GLUCOPHAGE: HIVES - ALLERGY LIPITOR: HIVES - ALLERGY ZOCOR: HIVES - ALLERGY FRESH PINEAPPLE: SWOLLEN LIPS/ SORES IN MOUTH - ALLERGY KEFLEX: HIVES - ALLERGY SOCIAL HISTORY GENERAL: TOBACCO USE ARE YOU A:FORMER SMOKER HOW LONG HAS IT BEEN SINCE YOU LAST SMOKED?6-12 MONTHS LATEX QUESTIONNAIRE LATEX ALLERGY : HAVE YOU EVER DEVELOPED ANY TYPE OF REACTION AFTER HANDLING LATEX PRODUCTS SUCH RUBBER GLOVES, CONDOMS, DIAPHRAGMS, BALLOONS, SOCKS, OR UNDERWEAR?YES - PLEASE INDICATE :RUBBER GLOVES, CONDOMS, BALLOONS LATEX ALLERGY : HAVE YOU EVER DEVELOPED ANY TYPE OF REACTION DURING OR AFTER DENTAL APPOINTMENT, VAGINAL/RECTAL EXAMINATION, SURGICAL PROCEDURE, OR ANY OTHER EXPOSURE?YES - PLEASE INDICATE :VAGINAL EXAM, RECTAL EXAM LATEX RISK : HAVE YOU EVER HAD ANY DIFFICULTY BREATHING OR HIVES AFTER EATING OR HANDLING ANY FRUITS, OR VEGETABLES; SUCH KIWI, BANANAS, STONE FRUITS, OR CHESTNUTSNO LATEX RISK : DO YOU HAVE A PREVIOUS PERSONAL HISTORY OF MORE THAN NINE SURGERIES, SPINA BIFIDA, OR REPEATED CATHERIZATIONS? YES - PLEASE INDICATE : > 9 SURGERIES LATEX RISK : ARE YOU FREQUENTLY EXPOSED TO LATEX PRODUCTS IN YOUR OCCUPATION?NO DATE ASKED : 10/24/2020 ACTIVE LATEX ALLERGY ALCOHOL USE: NO. LUNG CANCER SCREENING SMOKING STATUS:FORMER SMOKER IS THE PATIENT BETWEEN THE AGE OF 54 AND 76?NO BMI CARE GOAL FOLLOW-UP ABOVE NORMAL BMI [facility] ED[facility]ATION REGARDING DIET ALCOHOL SCREENING POINTS: 0, INTERPRETATION: NEGATIVE. RECREATIONAL DRUG USE DENIES. CAFFEINE CAFFEINE USE?NO SEXUAL HX HAD SEX IN THE LAST 12 MONTHS (VAGINAL, ORAL, OR ANAL)?YES WITHMEN ONLY PREVENTION STRATEGIES DISCUSSED:CONDOMS USE PROTECTION?NO HAVE YOU EVER HAD AN STD?NO HIV / HEP-C SCREENING HIV TEST OFFERED TO PATIENT:NO HEP-C TEST OFFERED TO PATIENT:NO PROTESTANT [id number] NONE LANGUAGE LANGUAGES SPOKEN:FRISIAN EDUCATION SOME COLLEGE. 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 DIET: CARBOHYDRATE CONTROLLED. EXERCISE: NO REGULAR EXERCISE. MARITAL STATUS: . OTHERS AT HOME: SPOUSE. HOUSING: OWNS HOME. REVIEW OF SYSTEMS GLAUCOMA: NOTHYROID DISEASE: NOHYPERTENSION: YESHEART DISEASE: YES, HISTORY OF PVC, ON BLOOD THINNERLUNG DISEASE: HISTORY OF ASTHMA DIABETES: YESGI DISEASE: YES, DIVERTICULITISLIVER DISEASE: NO KIDNEY DISEASE: YESSTERIOD USE: NONEUROLOGICAL DISEASE: NOBACK PROBLEMS: YES, PAINEXTREMITIES: YES, PAINGENITOURINARY: YES, INCONTINENCEBLEEDING DISORDER: YESASA CLASS: [id number] CLASS: II. VITAL SIGNS WT 253.0 LBS, HT 70 IN, BMI 36.30 INDEX, BP 183/87 MM HG, REPEAT BP 172/86 MANUAL, HR 98 /MIN, RR 18 /MIN, TEMP 97.0 F, OXYGEN SAT % 100%, SAFE IN ENV? (Y/N) YES, NA INITIALS AW 1432, REVIEWED BY: JSJ. MADDIE RN. EXAMINATION GENERAL EXAMINATION: THE PATIENT IS ALERT, ORIENTED TIMES THREE AND COOPERATIVE. LUNGS ARE CLEAR TO AUSCULTATION. HEART SHOWS REGULAR RHYTHM, NO MURMURS AND NO GALLOPS. THE RIGHT LEG IS WEAK ON FLEXION AND EXTENSION. STRAIGHT LEG RAISE IS POSITIVE FOR RADICULOPATHY ON THE RIGHT AT 40 DEGREES. THE PATIENT HAS SOME BLISTERS ON HER BACK DUE TO THE HEATING PAD. ASSESSMENTS RADICULOPATHY DUE TO LUMBAR INTERVERTEBRAL DISC DISORDER - M51.16 (PRIMARY) INTERVERTEBRAL DISC DISORDER WITH RADICULOPATHY OF LUMBOSACRAL REGION - M51.17 TREATMENT RADICULOPATHY DUE TO LUMBAR INTERVERTEBRAL DISC DISORDER IV LACTATED RINGER'S AT KVO (ORDERED FOR 12/08/2020) OXYGEN AT 2 LITERS PER NASAL CANNULA (ORDERED FOR 12/08/2020) MEDICATION: VERSED 1MG IV (MIDAZOLAM) (ORDERED FOR 12/08/2020) MEDICATION: FENTANYL CITRATE 50MCG IV (ORDERED FOR 12/08/2020) NOTES: REVIEWED PRE-PROCEDURE INSTRUCTIONS WITH PATIENT. PATIENT VERBALIZES AN UNDERSTANDING. Bernarda PERKINS RN. CLINICAL NOTES: I DISCUSSED ALTERNATIVES WITH MS. FORD. SHE IS GOING TO BE USING THE HIBICLENS AND THE BACTROBAN AND WATCH THE LESIONS ON HER BACK. WE AGREE ON DOING A RIGHT TRANSFORAMINAL EPIDURAL STEROID INJECTION L3-L4, L4-L5, L5-S1. I WILL TAKE CONSENT FOR ALL THREE LEVEL BUT I MIGHT ONLY DO 2 LEVELS. WE ARE GOING TO USE IV SEDATION DUE TO ANXIETY AND DISCOMFORT ASSOCIATED WITH THE PROCEDURE. THE PATIENT AGREES WITH THE PLAN. I, BELINDA BOLDEN, DOCUMENTED THE ABOVE INFORMATION ACTING A SCRIBE FOR DR. SIMMONS. I HAVE REVIEWED THE ABOVE DOCUMENT, WRITTEN BY BELINDA BOLDEN, STARCH AND PROSIZE MIXER, AND I VERIFY THAT IT IS ACCURATE. PROCEDURE CODES 56329 OFFICE/OUTPATIENT VISIT EST FA211 ESTABILISHED PATIENT [facility] CHARGE DISPOSITION & COMMUNICATION FOLLOW UP OKAY TO BOOK (REASON: RIGHT TRANSFORAMINAL EPIDURAL STEROID INJECTION L3-L4, L4-L5, L5-S1) ELECTRONICALLY SIGNED BY RONNIE SIMMONS MD, MD ON 11/10/2020 AT 04:58 PM EST DISCLAIMER : THIS IS A VISIT SUMMARY EXTRACTED FROM THE [employer] CHART. IT IS NOT A COPY OF THE [employer] PROGRESS NOTE. LAURIE
== END ==
LOC: M PAIN 14:30
PROVIDERS: ATTEND Anesthesiology
DX: M51.16 Intervertebral disc disorders with radiculopathy, lumbar region (principal); M51.17 Intervertebral disc disorders with radiculopathy, lumbosacral region; G89.29 Other chronic pain; E11.9 Type 2 diabetes mellitus without complications; J44.9 Chronic obstructive pulmonary disease, unspecified; M79.7 Fibromyalgia; K21.9 Gastro-esophageal reflux disease without esophagitis; G47.33 Obstructive sleep apnea (adult) (pediatric); G25.81 Restless legs syndrome; Z86.14 Personal history of Methicillin resistant Staphylococcus aureus infection; Z86.59 Personal history of other mental and behavioral disorders; Z87.891 Personal history of nicotine dependence; Z88.0 Allergy status to penicillin; Z88.1 Allergy status to other antibiotic agents; Z88.2 Allergy status to sulfonamides; Z88.8 Allergy status to other drugs, medicaments and biological substances; Z91.018 Allergy to other foods; Z91.040 Latex allergy status; Z79.01 Long term (current) use of anticoagulants; Z79.4 Long term (current) use of insulin; Z79.891 Long term (current) use of opiate analgesic; Z79.899 Other long term (current) drug therapy

== ENCOUNTER → 2020-11-12 | Outpatient (CLI) | payer OTHER | LOC: M LABSMTC 13:57 | PROVIDERS: ATTEND Anesthesiology | DX: Z20.822 Contact with and (suspected) exposure to COVID-19 (principal) ==

== ENCOUNTER 2020-11-17 18:36 | Emergency (ER) | payer OTHER ==
[~2020-11-17] VITALS: Ht 177.8 cm; Wt 113.6 kg
[2020-11-17 18:36] VITALS: BP 136/76
[~2020-11-17 18:36] MED LIST changes: -MONT10TA10 PO; +MONT5TAB2 PO; +QUET1TAB10 PO; -QUET300T2 PO
--- OUTSIDE RECORDS SUMMARY | 2020-11-17 18:45 | CCD ---
Author Author [facility] Organization [facility] Address Unknown Phone Unavailable Care Team Providers Care Uniform Room Attendant Name Role Phone Randolph Villarreal Unavailable PROBLEMS Type Condition ICD9-CM Code [id number] Code Onset Dates Condition S tatus SNOMED Code Notes Problem Lumbago with sciatica, right side M54.41 Active 966563876 Problem Intervertebral disc disorders with radiculopathy , lumbar region M51.16 Active 575157957051300 Problem 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 Active 729571856 Problem MRSA (methicillin resistant Staphylococcus aureus) carrier Z22.322 Active 589822094 Problem CKD stage 3 due to type 2 diabetes mellitus E11.22 Active 235410442502 Problem Primary insomnia F51.01 Active 2116252 Problem Cigarette nicotine dependence with other nicotin e-induced disorder F17.218 Active 96806827521009866 Problem Recurrent deep venous thrombosis I82.409 Active 060076060 Problem Intervertebral disc disorders with radiculopathy , lumbosacral region M51.17 Active 73836939255270344 Problem Essential hypertension I10 Active 57595329 Problem Lesion of ulnar nerve, left upper limb G56.22 Active 304092269829957 Problem Restless leg syndrome G25.81 Active 36577949 Problem Type 2 diabetes mellitus with foot ulcer E11.621 Active 621512743 Problem Nocturnal leg cramps G47.62 Active 852275908 Problem Other chronic pain G89.29 Active 07218425 Problem Gastroparesis K31.84 Active 354966612 Problem Lesion of ulnar nerve, right upper limb G56.21 Active 717470219370293 Problem Pulmonary emphysema, unspecified emphysema type J4 3.9 Active 69418519 Problem Age-related nuclear cataract, left eye H25.12 Active 229074387415350 Problem Type 2 diabetes mellitus with other circulatory compli cations E11.59 Active 62391793 Problem Status post below-knee amputation of left lower extremity Z89.512 Active 215318222290486 Problem Seasonal allergic rhinitis due to pollen J30.1 Active 93732524 Problem Cigarette 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.211 Active 405104337 Problem Mixed hyperlipidemia E78.2 Active 759222215 Problem Age-related nuclear cataract, right eye H25.11 Active 284832548194002 Problem Panic disorder F41.0 Active 379740290 Problem 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 L97.412 Active 525633661 Problem History of ischemic colitis Z87.19 Active 1099 978295849187 Problem Non-pressure chronic ulcer o f other part of unspecified foot with unspecified severity L97.509 Active 477597613 Problem Iron deficiency anemia, unspecified iron deficiency an emia type D50.9 Active 61678250 Problem Chronic kidney disease, unspecified CKD stage N18. 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 A ctive 140409434 Problem assisted (current) use of insulin Z79.4 Activ e 164488368 Problem Factor V Leiden D68.51 Active 652746063 Problem GERD (gastroesophageal reflux disease) K21.9 A ctive 281798263 Problem Sebaceous cyst of skin of left breast N60.82 Ac tive 59717258 Problem Anticoagulant long-term use Z79.01 Active 7111 89989 Problem Bipolar disorder, current episode manic w/o psyc hotic features, mild F31.11 Active 433547287 Problem Below knee amputation S88.119A Active 747091597 Problem History of factor V Leiden mutation Z86.2 Acti ve 340846157 ALLERGIES Allergen (clinical drug ingredient) Drug/Non Drug Allergy do cumented on EMR Reaction Allergy Type Onset Date Status Sulfa (for allergy use only) Hives Drug Allergy Active Penicillin (For Allergies Use Only) Anaphylaxis Drug Aller gy Active simvastatin Zocor([facility] Code:[address]-88) Hives Drug Allergy Active Glucophage Hives Drug Allergy Active cephalexin Keflex([facility] Code:[address]-12) hives Drug Allergy Active Latex (for allergy use only) Anaphylaxis Drug Allergy Active atorvastatin Lipitor([facility] Code:[address]-07) Hives Drug Allergy Active Fresh Pineapple swollen lips/ sores in mouth Non Drug Josué rgy Active fenofibrate Tricor([facility] Code:[address]-88) Hives Drug Allergy Active ENCOUNTERS from 1969 to 2020-10-28 Encounter Location Date Provider Diagnosis [facility] [address] [place] [id number] Oct, Randolph Villarreal Intervertebral disc disorders with radic ulopathy, lumbar region M51.16 ; Neuropathic pain of lower extremity M79.2 ; History of MRSA infection Z86.14 ; History of factor V Leiden mutation Z86.2 ; History of edema Z87.898 ; History of diabetes mellitus Z86.39 ; History of renal insufficiency Z87.448 ; History of asthma Z87.09 and Below knee amputation S88.119A IMMUNIZATIONS Vaccine Route Administration Date Status Influenza (18 yrs & older) Flublok IM Intramuscular Sep 15, 2020 Administered Toradol 60mg/2mL (Ketorolac) IM Intramuscular February 09, 2016 Ad ministered Pneumococcal Adult 0.5mL (Pneumovax 23) Unknown Aug 06, 2008 Administered Influenza (6mo & up) Fluzone IM Intramuscular Sep 02, 2017 Ad ministered Influenza (6mo & up) Fluzone Unknown Jun 21, 2017 Oth ers Influenza (6mo & up) Fluzone IM Intramuscular Jul 19, 2016 Ad ministered Influenza (6mo & up) Fluzone Unknown Aug 31, 2014 Adm inistered Influenza (6mo & up) Fluzone IM Intramuscular Jul 31, 2013 Ad ministered SOCIAL HISTORY Tobacco Use: Social History Observation Description Date Details (start date - stop date) Former Smoker Sex Assigned At : Social History Observation Description Sex Assigned At Unknown Audit Question Answer Notes Total Score: 0 Interpretation: Alcohol Education Language: Question Answer Notes Languages spoken: Icelandic Orthodox: Question Answer Notes Orthodox 33 None Sexual Hx: Question Answer Notes Had sex in the last 12 months (vaginal, oral, or anal)? Yes Have you ever had an STD? No Prevention Strategies discussed: Condoms with Men only Use protection? No Drug and Alcohol Question Answer Notes Total Score: 0 Interpretation: No problems reported BMI Care Goal Follow-Up Question Answer Notes Above Normal BMI Follow-Up Lifestyle education regarding t Tobacco Use: Question Answer Notes Are you a: former smoker How long has it been since you last smoked? 6-12 months REASON FOR REFERRAL No Information VITAL SIGNS Weight 263 lbs Oct, Weight-kg PER PT kg Oct, Height 70 in Oct, BMI 37.73 kg/m2 Oct, Heart Rate 91 /min Oct, Respiratory Rate 19 /min Oct, Temperature 96.5 degrees Fahrenheit Oct, Oximetry 98% Oct, Blood pressure systolic 148 mm Hg Oct, Blood pressure diastolic 81 mm Hg Oct, MEDICATIONS Medication SIG (Take, Route, Frequency, Duration) Notes Start Da te End Date Status May Use - wheel chair dx code Z89.512 _ for 99 months Jan, Active Cholecalciferol 59891 UNIT 1 capsule Orally once a week on Jun, Active Tamsulosin HCl 0.4 MG Orally Daily HS Active Xopenex 1.25 MG/3ML 3 ml Inhalation Every 6 hours as needed Active EpiPen 0.3 MG/0.3ML 1 injection Injection As nee ded for allergic reaction for 30 day(s) Active Nystatin Powder 308539 UNIT powder Externally to bilat eral berast and abd pannus daily as needed daily for 30 days Active Cyclobenzaprine HCl 10 MG 1 tab Orally Three times a day prn mus telly spasms May, Active Refresh 1 % 1 drop into affected eye as needed Ophth almic four times daily prn Active Cetirizine HCl 10 MG 1 tablet Orally Once a day Jan, 15 Active Eliquis 5 MG 1 tablet Orally BID Act gonzales Betamethasone Valerate 0.1 % 1 application to affected area Externally Once a day Jan, Active Collagen Ultra - 1 cap Orally Daily May, Active Zofran 8 MG 1 tab PRN nausea Orally every 12 hours Jun, Active Bactroban 2% as directed applied topically twice a day Jul, Active Wheelchair - as directed Dx Z89.51, M54.41 Jan, Active Rosuvastatin Calcium 10 MG 1 tablet Orally Once a day 14 M 2017 Active Humalog KwikPen 200 UNIT/ML as directed Subcutaneous T ID per sliding scale; max daily #40 units Active Misc. Devices - as directed Repair and repla ce prosthetic and liners as needed; Dx Z89.51 Jan, Active Magnesium Chloride 64 MG 1 tablet Orally Daily May, 9 Active Lyrica 300 MG 1 capsule Orally Twice a day (pain clinic) Active Restasis 0.05 % 1 drop into affected eye Ophthalmic three times a day Active Singulair 10 MG 1 tablet Orally Once a day Active Ropinirole HCl 2 MG 1 tablet at 8 pm and at midnight Orally BID May, Active ProAir HFA 108 (90 Base) MCG/ACT 2 puffs as needed Inhalation ev agustina 6 hrs May, Active Symbicort 80-4.5 MCG/ACT 2 puffs Inhalation Twice a day May, Active BD Pen Mini - as directed E11.9 qid for 30 day(s) May, Active Tresiba 200 U/mL 300 units subcutaneously daily Active Clobetasol Propionate 0.05 % 1 application to affected area Externally twice a day to scalp Jul, Active Probiotic - Orally Active Valacyclovir HCl 1 GM 1 tablet Orally every 24 hrs as needed for 10 day(s) Active Dexilant 60 MG 1 capsule Orally Once a day for 90 Active TraZODone HCl 100 MG 2 tablets orally Once a day at hs Active Wheelchair - as directed Power wheelchair; Dx M54.41, G56.21, Z89.512, M62.81 Apr, Active FreeStyle Dwight 14 Day Sensor - as directed Dx E11.9 2019 Active Cymbalta 60 MG 2 capsuleS Orally daily May, Active Torsemide 20 MG 2 tab Orally Daily A ctive Methylphenidate HCl ER (LA) 20 MG 1 capsule in the morning Orall y Once a day Jun, Active Hydrocodone-Acetaminophen 10-325 MG 1 tablet as needed Orally every 4 hrs Active Hibiclens 4 % as directed Externally twice a day Jul, 019 Active Ketoconazole 2 % 5 applications to scalp Exte rnally Once a day and let sit for 5 minutes Jul, Active Pen [place] 3/16" 31G X 5 MM as directed 5 times daily Aug, Active PROCEDURES No Information RESULTS No Results REASON FOR VISIT REVIEW MRI MEDICAL (GENERAL) HISTORY Type Description Date Medical History Charcot joints in foot now s/p amputatio n of left foot Medical History History of bilateral diabeti c foot ulcers, now s/p BKA of left LLE Medical History Lumbar Spondylosis, Central Canal Stenosis at L2-5 secondary to disc bulge ligamentous and facet hypertrophy Medical History Lumbar Facet Arthropathy, Disc bulging at L5-S1 Medical History + for Rheumatoid Factor 04/27/12 Medical History Hypogammagobulinemia, CVID Medical History Hypertension Medical History Asthma/COPD Medical History Bipolar, OCD, anxiety, insomnia Medical History Fibromyalgia Medical History Spina Bifida Occulta Medical History Bilateral TMJ Dysfunction Medical History Eczema Medical History Chronic back pain, thoracic DDD - Dr. 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 Medical History Fatty liver Medical History + FVL, recurrent DVTs Medical History Type 2 diabetes mellitus wit h other circulatory complications - [place] Medical History Hx recto-sigmoid ischemic co litis 03/2018 confirmed by sigmoid c bx-Jaylin, msesnteric arteriogram s intervention Medical History Hx urinary retention - [facility] Urology Medical History Hx Wynn's Palsy - Neuro Medical History PA - noncompliant with CPAP Medical History CKD3 - Nephrology Medical History History of MRSA Medical History RLS, nocturnal leg cramps Medical History Iron deficiency anemia Surgical History Gallbladder 1995 Surgical History Cervical Discectomy C5-6 Fusion 1994 Surgical History Hysterectomy for prolapse/endometriosis 2000 Surgical History Lumpectomy Right Breast 2003 Surgical History Skin Lesion Removed 2004 Surgical History Multiple Diagnostic Laparoscopies Surgical History Venous PortaCath Left Chest x2 Surgical History Picc Line Left & Right Upper Arm x3 Surgical History Appendectomy 2008 Surgical History Excised Abcessed wounds x3 due to infect ion. Surgical History Ulnar release right arm/hand Surgical History keerthi cath x2 Surgical History stool transplant Surgical History port placed 12/23/2016 Surgical History Ulnar release and carpal иван ivanna release right arm with revision: Dr. Verdugo Surgical History Left charcot foot debridement: Dr. Fatima tier 02/2017 Surgical History Left BKA for chronic wound/osteomyelitis 05/2017 Surgical History EGD- gastric polyp resected; Dr. Mosqueda 06/2018 Surgical History Colonoscopy - sigmoid ulcer; Dr. Mosqueda 06/2018 Surgical History EGD - normal; Dr. Mosqueda 10/2018 Surgical History Right Eye Cataract Surgery 08/2020 Surgical History Left Eye Cataract Surgery 09/2020 Hospitalization History sepsis, L foot ulcer, suspected coli tis 08/23/2014 Hospitalization History DVT RLL 09/06/2014 Hospitalization History septic shock secondary to multiple s kin ulcers 10/22/2014 Hospitalization History low blood sugers and infections 10/18 Hospitalization History RLL cellulitus and osteomyelitis 12/16 Hospitalization History hypotension, syncope 02/21/2015 Hospitalization History diabetic foot ulcer osteo 04/30/15 Hospitalization History Staph hominis line sepsis MS SA chronic osteomelytis foot 05/15/15 Hospitalization History wound infection 06/2015 Hospitalization History sepsis 06/2015 Hospitalization History sepsis 07/2015 Hospitalization History admitted for port infection 11/2015 Hospitalization History C-Diff 12/2015 Hospitalization History LEft foot r/o osteomyelitis. 016 Hospitalization History Hyperglycemia in an uncontro lled type I diabetic, R sided flank pain, CKD, Hyponatremia secondary to hyperglycemia, anxiety, depression, hypertension, asthma, Hx of DVT, UTI 08/30-09/03/2016 Hospitalization History cellulitis left foot 01/13/17-01/19/17 Hospitalization History Cellulitis of the right lowe r foot, mild acute renal failure 04/12/17-04/14/17 Hospitalization History Kidney injury 10/05 Hospitalization History Hypergyycemia, hyoertension, hyperkalemia, acute kidney injury 10/25/2017 Hospitalization History Dehydration and altered mental statu s 02/14/2018 Hospitalization History acute sigmo-rectal ischemic colitis c severe sepsis/MELODY I/TME/bloody stools/elevated BHG but pH 7.6 (WBC on admission 17K, peak cr 1.7), confirmed by sigmoid c bx-Jaylin, -BCX x 2, -GI panel -UCX, mesenteric arteriogram done by Federico pena intervention//CT he 03/20- Hospitalization History bells palsey 10/08/2018 Hospitalization History 3 days renal failure 05/22/2019 Hospitalization History right foot cellulitis 06/2019 Hospitalization History HYPOTENSION W/ FALL 05/27/20 Goals Section No Information Health Concerns No Information MEDICAL EQUIPMENT No Information MENTAL STATUS No Information FUNCTIONAL STATUS No Information ASSESSMENTS Encounter Date Diagnosis Assessment Notes Treatment Notes Treatm ent Clinical Notes Oct, Intervertebral disc disorder s with radiculopathy, lumbar region (ICD-10 - M51.16) I discussed alternatives with Ms. Ford. The patient has been denied for the dorsal column stimulator trial. I want to appeal this. The patient has been in a wheelchair with no quality of life. The patient states she cannot continue her life in this way. We are requesting a 1 week trial for the dorsal column stimulator to see if it is an option for her. The patient would like to attempt some sort of solution even though injection therapy has not helped, the patient is very desperate. So I will request authorization for right L3-L4, L4-L5, L5-S1 transforaminal with IV sedation due to anxiety and discomfort associated with the procedure. Also, I am going to refer her for surgical evaluation to see if there is a surgical solution. The patient reports understanding and agrees with the plan. I, Geena David, documented the above information acting as a scribe for Dr. Villarreal. I have reviewed the above document, written by Geena David, medical physicist, and I verify that it is accurate. Oct, Neuropathic pain of lower extremity (ICD-10 - M7 9.2) Oct, History of MRSA infection (ICD-10 - Z86.14) Oct, History of factor V Leiden mutation (ICD-10 - Z8 6.2) Oct, History of edema (ICD-10 - Z87.898) Oct, History of diabetes mellitus (ICD-10 - Z86.39) Oct, History of renal insufficiency (ICD-10 - Z87.448 ) Oct, History of asthma (ICD-10 - Z87.09) Oct, Below knee amputation (ICD-10 - S88.119A) PLAN OF TREATMENT Medication Medication Name Sig Start Date Stop Date Valacyclovir HCl 1 GM 1 tablet Orally every 24 hrs as needed for 10 day(s) Treatment Notes Assessment Notes Clinical Notes Intervertebral disc disorders with radiculopathy, lumbar reg ion I discussed alternatives with Ms. Ford. The patient has been denied for the dorsal column stimulator trial. I want to appeal this. The patient has been in a wheelchair with no quality of life. The patient states she cannot continue her life in this way. We are requesting a 1 week trial for the dorsal column stimulator to see if it is an option for her. The patient would like to attempt some sort of solution even though injection therapy has not helped, the patient is very desperate. So I will request authorization for right L3-L4, L4-L5, L5-S1 transforaminal with IV sedation due to anxiety and discomfort associated with the procedure. Also, I am going to refer her for surgical evaluation to see if there is a surgical solution. The patient reports understanding and agrees with the plan. I, Geena David, documented the above information acting as a scribe for Dr. Villarreal. I have reviewed the above document, written by Geena David, medical physicist, and I verify that it is accurate. Next Appt Details Follow up in 1 month and request auth fo r right transforaminal epidural steroid injection L3-L4, L4-L5, L5-S1 with IV sedation, hold med Reason:Follow up in 1 month and request auth for right transforaminal epidural steroid injection L3- L4, L4-L5, L5-S1 with IV sedation, hold med Provider Name:Tiffany Hogue, 06-11-14 01:30:00 PM, [address] [place], [address], Provider Name:Mireille Quijano, 2020-11-18 07:30:00 AM, [facility] [place], [address], Provider Name:Randolph Villarreal, 2020-11-21 10:30:00 AM, [address] [place], [address], Provider Name:Tiffany Hogue, 20 06-06-27 01:00:00 PM, [address] [place], [address], Follow Up:Follow up in 1 month and request auth for right transforaminal epidural steroid injection L3-L4, L4-L5, L5-S1 with IV sedation, hold medFollow up in 1 month and request auth for right transforaminal epidural steroid injection L3-L4, L4-L5, L5-S1 with IV sedation, hold med Insurance Providers Payer Name Payer Address Payer Phone Insured Name Patient Relati onship to Insured Coverage Start Date Coverage End Date [facility] [id number] [facility] [id number] JOSS FORD self 2013
--- OUTSIDE RECORDS SUMMARY | 2020-11-17 18:45 | CCD ---
Author Author [facility] Organization [facility] Address Unknown Phone Unavailable Care Team Providers Care Manager Acute Name Role Phone Randolph Villarreal Unavailable PROBLEMS Type Condition ICD9-CM Code EWD58-CB Code Onset Dates Condition S tatus SNOMED Code Notes Problem Lumbago with sciatica, right side M54.41 Active 348898138 Problem Intervertebral disc disorders with radiculopathy , lumbar region M51.16 Active 157285902583297 Problem 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 Active 703919554 Problem MRSA (methicillin resistant Staphylococcus aureus) carrier Z22.322 Active 209358132 Problem CKD stage 3 due to type 2 diabetes mellitus E11.22 Active 128882671303 Problem Primary insomnia F51.01 Active 4186913 Problem Cigarette nicotine dependence with other nicotin e-induced disorder F17.218 Active 21740067315303340 Problem Recurrent deep venous thrombosis I82.409 Active 266847698 Problem Intervertebral disc disorders with radiculopathy , lumbosacral region M51.17 Active 33238815104642039 Problem Essential hypertension I10 Active 77252812 Problem Lesion of ulnar nerve, left upper limb G56.22 Active 748735416065277 Problem Restless leg syndrome G25.81 Active 95474717 Problem Type 2 diabetes mellitus with foot ulcer E11.621 Active 681223519 Problem Nocturnal leg cramps G47.62 Active 466652017 Problem Other chronic pain G89.29 Active 85938383 Problem Gastroparesis K31.84 Active 285234780 Problem Lesion of ulnar nerve, right upper limb G56.21 Active 612654726796752 Problem Pulmonary emphysema, unspecified emphysema type J4 3.9 Active 16026214 Problem Age-related nuclear cataract, left eye H25.12 Active 649280972519888 Problem Type 2 diabetes mellitus with other circulatory compli cations E11.59 Active 56900333 Problem Status post below-knee amputation of left lower extremity Z89.512 Active 218123920017548 Problem Seasonal allergic rhinitis due to pollen J30.1 Active 58612019 Problem Cigarette 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.211 Active 612546039 Problem Mixed hyperlipidemia E78.2 Active 911864747 Problem Age-related nuclear cataract, right eye H25.11 Active 147344333282455 Problem Panic disorder F41.0 Active 560065182 Problem 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 L97.412 Active 246949890 Problem History of ischemic colitis Z87.19 Active 1099 840203141063 Problem Non-pressure chronic ulcer o f other part of unspecified foot with unspecified severity L97.509 Active 180703855 Problem Iron deficiency anemia, unspecified iron deficiency an emia type D50.9 Active 10595014 Problem Chronic kidney disease, unspecified CKD stage N18. 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 A ctive 877275520 Problem detention (current) use of insulin Z79.4 Activ e 500623982 Problem Factor V Leiden D68.51 Active 627654314 Problem GERD (gastroesophageal reflux disease) K21.9 A ctive 927390595 Problem Sebaceous cyst of skin of left breast N60.82 Ac tive 38262652 Problem Anticoagulant long-term use Z79.01 Active 7111 00133 Problem Bipolar disorder, current episode manic w/o psyc hotic features, mild F31.11 Active 105472825 Problem Below knee amputation S88.119A Active 366339864 Problem History of factor V Leiden mutation Z86.2 Acti ve 793456177 ALLERGIES Allergen (clinical drug ingredient) Drug/Non Drug Allergy do cumented on EMR Reaction Allergy Type Onset Date Status Sulfa (for allergy use only) Hives Drug Allergy Active Penicillin (For Allergies Use Only) Anaphylaxis Drug Aller gy Active simvastatin Zocor([facility] Code:[address]-72) Hives Drug Allergy Active Glucophage Hives Drug Allergy Active cephalexin Keflex([facility] Code:[address]-63) hives Drug Allergy Active Latex (for allergy use only) Anaphylaxis Drug Allergy Active atorvastatin Lipitor([facility] Code:[address]-77) Hives Drug Allergy Active Fresh Pineapple swollen lips/ sores in mouth Non Drug Josué rgy Active fenofibrate Tricor([facility] Code:[address]-13) Hives Drug Allergy Active ENCOUNTERS from 1969 to 2020-11-04 Encounter Location Date Provider Diagnosis [facility] [address] [place] [id number] Oct, Randolph Villarreal IMMUNIZATIONS Vaccine Route Administration Date Status Influenza [...] Education Language: Question Answer Notes Languages spoken: Malay Spiritism: Question Answer Notes Spiritism 33 None Sexual Hx: Question Answer Notes [...] REASON FOR REFERRAL No Information VITAL SIGNS No information MEDICATIONS Medication SIG (Take, Route, Frequency, Duration) Notes Start Da te End Date Status Allopurinol 300 MG TAKE ONE TABLET BY MOUTH EVERY DAY Oral for 30 Active Levofloxacin 250 MG 2 tablets Orally Once a day for 10 day(s) Oct, Active PROCEDURES No Information RESULTS No Results REASON FOR VISIT HOLD MED REQUEST MEDICAL (GENERAL) HISTORY Type Description Date Medical [...] mellitus wit h other circulatory complications - [place] Medical History Hx recto-sigmoid ischemic co litis 03/2018 confirmed by sigmoid c bx-Jaylin, msesnteric arteriogram s intervention Medical History Hx urinary retention - [facility] Urology Medical History Hx Wynn's Palsy - Neuro Medical History PA - noncompliant with CPAP Medical History CKD3 - Nephrology Medical History History of MRSA Medical History RLS, nocturnal leg cramps Medical History Iron deficiency anemia Medical History L-Breast I&D Surgical History Gallbladder 1995 Surgical History Cervical Discectomy C5-6 Fusion 1994 Surgical History Hysterectomy for prolapse/endometriosis 2000 Surgical History Lumpectomy Right Breast 2004 Surgical History Skin Lesion Removed 2004 Surgical History Multiple Diagnostic Laparoscopies Surgical History Venous PortaCath Left Chest x2 Surgical History Picc Line Left & Right Upper Arm x3 Surgical History Appendectomy 2009 Surgical History Excised Abcessed wounds x3 due [...] Surgical History Left Eye Cataract Surgery 09/2020 Surgical History L-Breast I&D 10/2020 Hospitalization History sepsis, L foot ulcer, suspected [...] peak cr 1.7), confirmed by sigmoid c bx-Reindl, -BCX x 2, -GI panel -UCX, mesenteric arteriogram done by Federico pena intervention//CT he 03/20- Hospitalization History bells palsey 10/08/2018 Hospitalization History 3 days renal failure 05/22/2019 Hospitalization History right foot cellulitis 06/2019 Hospitalization History HYPOTENSION W/ FALL 05/27/20 Goals Section No Information Health Concerns No Information MEDICAL EQUIPMENT No Information MENTAL STATUS No Information FUNCTIONAL STATUS No Information ASSESSMENTS No Information PLAN OF TREATMENT Next Appt Details Provider Name:Randolph Villarreal, 2020-11-07 02:30:00 PM, [address] [place] [address], [phone], Provider Name:Tiffany Hogue, 06-11-28 03:30:00 PM, [address] [place] [address], [phone], Provider Name:Randolph Villarreal, 2020-11-17 08:00:00 AM, [address] [place] [address], [phone], Provider Name:Mireille Quijano, 2020-11-18 07:30:00 AM, [address] [place] [address], [phone], Provider Name:Figueroa Iraheta, 2020-12-22 02:30:00 PM, [address] [place] [address], [phone], Provider Name:Tiffany Hogue, 06-06-27 01:00:00 PM, [address] [place] [address], [phone], Insurance Providers Payer Name Payer Address Payer Phone Insured Name Patient Relati onship to Insured Coverage Start Date Coverage End Date [facility] [id number] [facility] [id number] [phone] JOSS FORD 2013
--- OUTSIDE RECORDS SUMMARY | 2020-11-17 18:45 | CCD ---
Author Author [facility] Organization [facility] Address Unknown Phone Unavailable Care Team Providers Care Qa Intern Name Role Phone Tiffany Hogue Unavailable PROBLEMS Type Condition ICD9-CM Code LKI16-OS Code Onset Dates Condition S tatus SNOMED Code Notes Problem Lumbago with sciatica, right side M54.41 Active 084675921 Problem Intervertebral disc disorders with radiculopathy , lumbar region M51.16 Active 233059317641894 Problem 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 Active 305642973 Problem MRSA (methicillin resistant Staphylococcus aureus) carrier Z22.322 Active 905920290 Problem CKD stage 3 due to type 2 diabetes mellitus E11.22 Active 217392617033 Problem Primary insomnia F51.01 Active 8142230 Problem Cigarette nicotine dependence with other nicotin e-induced disorder F17.218 Active 45993530454959312 Problem Recurrent deep venous thrombosis I82.409 Active 700440908 Problem Intervertebral disc disorders with radiculopathy , lumbosacral region M51.17 Active 98911701361264021 Problem Essential hypertension I10 Active 93784856 Problem Lesion of ulnar nerve, left upper limb G56.22 Active 801828609574127 Problem Restless leg syndrome G25.81 Active 42018790 Problem Type 2 diabetes mellitus with foot ulcer E11.621 Active 802545873 Problem Nocturnal leg cramps G47.62 Active 202311874 Problem Other chronic pain G89.29 Active 91441511 Problem Gastroparesis K31.84 Active 915374768 Problem Lesion of ulnar nerve, right upper limb G56.21 Active 598104175821332 Problem Pulmonary emphysema, unspecified emphysema type J4 3.9 Active 91298130 Problem Age-related nuclear cataract, left eye H25.12 Active 917816135607847 Problem Type 2 diabetes mellitus with other circulatory compli cations E11.59 Active 10579698 Problem Status post below-knee amputation of left lower extremity Z89.512 Active 858238908804194 Problem Seasonal allergic rhinitis due to pollen J30.1 Active 32248964 Problem Cigarette 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.211 Active 360412045 Problem Mixed hyperlipidemia E78.2 Active 395088765 Problem Age-related nuclear cataract, right eye H25.11 Active 503900740927075 Problem Panic disorder F41.0 Active 011289208 Problem 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 L97.412 Active 913954733 Problem History of ischemic colitis Z87.19 Active 1099 954667704824 Problem Non-pressure chronic ulcer o f other part of unspecified foot with unspecified severity L97.509 Active 124177710 Problem Iron deficiency anemia, unspecified iron deficiency an emia type D50.9 Active 77452646 Problem Chronic kidney disease, unspecified CKD stage N18. 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.01 A ctive 112928046 Problem MCFP (current) use of insulin Z79.4 Activ e 193762003 Problem Factor V Leiden D68.51 Active 504730789 Problem GERD (gastroesophageal reflux disease) K21.9 A ctive 117549755 Problem Sebaceous cyst of skin of left breast N60.82 Ac tive 49002069 Problem Anticoagulant long-term use Z79.01 Active 7111 84190 Problem Bipolar disorder, current episode manic w/o psyc hotic features, mild F31.11 Active 354733684 Problem Below knee amputation S88.119A Active 055205330 Problem History of factor V Leiden mutation Z86.2 Acti ve 156318179 ALLERGIES Allergen (clinical drug ingredient) Drug/Non Drug Allergy do cumented on EMR Reaction Allergy Type Onset Date Status Sulfa (for allergy use only) Hives Drug Allergy Active Penicillin (For Allergies Use Only) Anaphylaxis Drug Aller gy Active simvastatin Zocor([facility] Code:[address]-60) Hives Drug Allergy Active Glucophage Hives Drug Allergy Active cephalexin Keflex([facility] Code:[address]-48) hives Drug Allergy Active Latex (for allergy use only) Anaphylaxis Drug Allergy Active atorvastatin Lipitor([facility] Code:[address]-23) Hives Drug Allergy Active Fresh Pineapple swollen lips/ sores in mouth Non Drug Josué rgy Active fenofibrate Tricor([facility] Code:[address]-62) Hives Drug Allergy Active ENCOUNTERS from 1969 to 2020-11-11 Encounter Location Date Provider Diagnosis [facility] [address] [place] [id number] Oct, 2020 Tiffany Hogue Sebaceous cyst of skin of left breast N6 0.82 ; Breast mass, right N63.10 ; Breast pain, right N64.4 ; Palpable lymph node R59.9 ; Skin lesion L98.9 ; Large breasts N62 ; Discharge from right nipple N64.52 ; Hx of deep venous thrombosis Z86.718 ; Family history of cancer Z80.9 ; Ulcerative colitis with complication, unspecified location K51.919 ; Chronic kidney disease, unspecified CKD stage N18.9 ; Type 2 diabetes mellitus with diabetic chronic kidney disease E11.22 and MCFP (current) use of insulin Z79.4 IMMUNIZATIONS Vaccine Route Administration Date Status Influenza [...] Education Language: Question Answer Notes Languages spoken: Yemeni Advent: Question Answer Notes Advent 33 None Sexual Hx: Question Answer Notes [...] FOR REFERRAL No Information VITAL SIGNS Weight 253 lbs Oct, Weight-kg 114.76 kg Oct, Height 70 in Oct, BMI 36.3 kg/m2 Oct, Heart Rate 104 /min Oct, Respiratory Rate 18 /min Oct, Temperature 96.4 degrees Fahrenheit Oct, Oximetry 99 Oct, Blood pressure systolic 122 mm Hg Oct, Blood pressure diastolic 78 mm Hg Oct, MEDICATIONS Medication SIG (Take, Route, Frequency, Duration) Notes Start Da te End Date Status Ondansetron HCl 8 MG TAKE ONE TABLET BY MOUTH DOV RY 12 HOURS NEEDED FOR NAUSEA Oral for 4 Active Moxifloxacin HCl 0.5 % STARTING 3 DAYS PRIOR TO MICHAEL ALLIE INSTILL ONE DROP IN THE RIGHT EYE FOUR TIMES A DAY Ophthalmic for 20 Not-Taking PrednisoLONE Acetate 1 % INSTILL 1 DROP IN THE RIGHT EYE FIVE TIMES A DAY Ophthalmic for 30 Active Albuterol Sulfate HFA 108 (90 Base) MCG/ACT 2 puffS as needed Inhalation every 4 hrs Active Eszopiclone 3 MG (Schedule IV Drug) TAKE ONE TABLET BY MOUTH AT BEDTIME MAXIMUM DAILY DOSE 1 Oral for 30 Not-T aking Methylphenidate HCl ER (LA) 20 MG (Schedule II Drug) T AGNES ONE CAPSULE BY MOUTH EVERY MORNING MAXIMUM DAILY DOSE 1 CAPSULE Oral for 30 Active Singulair 10 MG 1 tablet Orally Once a day for 30 day(s) Active Tresiba FlexTouch 200 UNIT/ML INJECT 320 UNITS SUBCUTA NEOUSLY DAILY Subcutaneous for 28 Active Duloxetine HCl 60 MG TAKE TWO CAPSULES BY MOUTH EVERY DAY Oral for 30 Active Inveltys 1 % DAY OF SURGERY REMOVE PATCH AND START ONE DROP IN THE RIGHT EYE TWO TIMES A DAY Ophthalmic for 20 Not-Taking Vitamin D (Ergocalciferol) 1.25 MG (84983 UT) TAKE 1 C APSULE BY MOUTH ONCE WEEKLY ON TUESDAY Oral for 28 Ac tive Ketorolac Tromethamine 0.5 % INSTILL 1 DROP IN THE RIG HT EYE FOUR TIMES A DAY Ophthalmic for 23 Active Trazodone HCl 100 MG TAKE TWO TABLETS BY MOUTH AT BEDTIME Orally Active Torsemide 20 MG 1 tablet Oral Daily PRN Active Xopenex 1.25 MG/3ML 3 ml Inhalation every 6 hrs PRN Active Cyclobenzaprine HCl 10 MG TAKE ONE TABLET BY MOUTH THR EE TIMES A DAY Oral for 30 Active Requip 4 MG 1 tablet Orally bid Acti ve Nystatin - as directed Active Levofloxacin 250 MG 2 tablets Orally Once a day for 10 day(s) Oct, Active Hydrocodone-Acetaminophen 10-325 MG (Schedule II Drug) TAKE ONE TABLET BY MOUTH EVERY 4 HOURS MAXIMUM DAILY DOSE 6 TABLETS Oral for 30 Active Pregabalin 300 MG 2 CAPSULES Oral bid Active Probiotic - as directed Orally Daily Active Humalog KwikPen 200 UNIT/ML INJECT THREE TIMES A DAY P ER SLIDING SCALE MAXIMUM DAILY DOSE 40 UNITS Subcutaneous for 30 Active BromSite 0.075 % THREE DAYS PRIOR TO SURGERY START ONE DROP IN THE RIGHT EYE TWO TIMES A DAY Ophthalmic for 30 Not-Taking Mag64 64 MG 1 tablet Orally Daily Ac tive Allopurinol 300 MG TAKE ONE TABLET BY MOUTH EVERY DAY Oral for 30 Active Symbicort 80-4.5 MCG/ACT 2 puffs Inhalation bid Active Dexilant 60 MG TAKE ONE CAPSULE BY MOUTH EVERY DAY Oral for 30 Active Eliquis 5 MG TAKE ONE TABLET BY MOUTH TWICE A DAY Oral for 30 Active Collagen 500 MG as directed Orally Daily Active Tamsulosin HCl 0.4 MG TAKE ONE CAPSULE BY MOUTH EVERY DAY Oral for 30 Active Claritin 10 MG 1 tablet Orally Once a day for 30 day(s) Active PROCEDURES No Information RESULTS Component Value Reference Range WOUND CULTURE AND GRAM ST Reviewed date:11/03/2020 18:39:21 Interpretation: Performing Lab:[facility], [facility] [address] [address] , ,[place] [address] REASON FOR VISIT L breast lesion check- sebaceous cyst? , I will do US in office, MEDICAL (GENERAL) HISTORY Type Description Date Medical [...] mellitus wit h other circulatory complications - [place] Medical History Hx recto-sigmoid ischemic co litis 03/2018 confirmed by sigmoid c bx-Jaylin, msesnteric arteriogram s intervention Medical History Hx urinary retention - [facility] Medical History Hx Wynn's Palsy - [...] Treatment Notes Treatm ent Clinical Notes Oct, Sebaceous cyst of skin of left breast (ICD-10 - N60.82) Patient developed infected sebaceous cyst. She requires incision and drainage which was done today. Wound was packed with plain packing material. I will change the packing next week. I started patient on Levaquin antibiotics and I advised to complete the treatment. Since this sebaceous cyst got infected right now, when it settles, age will need to be excised. Due to patient comorbidity may be better to do that excision in the office without using general anesthesia. Her anticoagulation will need to be held prior to the procedure. All questions were answered. Patient agrees with the plan. Oct, Breast mass, right (ICD-10 - N63.10) Right breast mass located at 10:00 measuring 1.1 x 1 cm is mobile and very superficial. This is most likely consistent with fat lobule or hamartoma. BI- RADS 3 category was assigned to this area on right breast ultrasound. Repeat imaging was advised in 1 year. Ultrasound and mammogram of the right breast will be ordered for May. Oct, Breast pain, right (ICD-10 - N64.4) We previously discussed potential causes of right breast pain. Patient was advised to use supportive bra decrease caffeine intake and try some of the supplements to alleviate the Right breast pain Oct, Palpable lymph node (ICD-10 - R59.9) Patient previously was noted to have palpable lymph nodes in the right axilla. This was evaluated with a formal sonography of the axillary region. No abnormal lymph nodes were appreciated on the sonography. I provided patient with a copy of that report previously. Oct, Skin lesion (ICD-10 - L98.9) Patient previously reported right axillary lump. Upon physical examination of the right axillary region a small Skin lesion was noted in the right axilla. This is most consistent with small sebaceous cyst. Patient indicated that this is the lesion which she was feeling. Cystic lesion is not infected at this time. If this continues to bother the patient's we can schedule her for excisional biopsy Oct, Large breasts (ICD-10 - N62) Prevously patient reported that her right breast got bigger than the left one. Her diagnostic mammograms did not show any suspicious abnormalities. She is unable to get MRI of the breast due to her chronic kidney disease. It is possible that the enlargement of the breast is due to obesity and ptosis of the breast. No acute surgical intervention warranted at this time Oct, Discharge from right nipple (ICD-10 - N64.52) Previously patient reported right nipple discharge. She had the nipple discharge only twice. Once it was yellowish. Second time patient thinks it might have been bloody. I was not able to express nipple discharge on the clinical breast exam. Patient was found not able to express nipple discharge either. Patient is unable to get MRI of the breast due to chronic kidney disease. With no reproducible nipple discharge we are unable to to currently ductogram as it is unclear which duct should be interrogated. Patient is at high risk for surgical intervention and is currently on Eliquis. We'll continue monitoring her nipple discharge with annual mammograms. She will inform me in she sees new nipple discharge. Oct, Hx of deep venous thrombosis (ICD-10 - Z86.718) Patient is on Eliquis. This will need to be stopped prior to any invasive procedure. Oct, Family history of cancer (ICD-10 - Z80.9) Patient participated in our Cancer screening program, [employer] and she was not found to be at increased risk for cancer base on her family history. She does not qualify for genetic testing or high risk screening with MRI of the breast base on her family history. Oct, Ulcerative colitis with comp lication, unspecified location (ICD-10 - K51.919) Oct, Chronic kidney disease, unspecified CKD stage (I CD-10 - N18.9) Unable to have MRI. We checked with the nephrology team. 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 She requires incision and drainage which was done today. Wound was packed with plain packing material. I will change the packing next week.I started patient on Levaquin antibiotics and I advised to complete the treatment.Since this sebaceous cyst got infected right now, when it settles, age will need to be excised. Due to patient comorbidity may be better to do that excision in the office without using general anesthesia. Her anticoagulation will need to be held prior to the procedure.All questions were answered. Patient agrees with the plan. Breast mass, right Right breast mass located at 10:00 measuring 1.1 x 1 cm is mobile and very superficial. This is most likely consistent with fat lobule or hamartoma. BI-RADS 3 category was assigned to this area on right breast ultrasound. Repeat imaging was advised in 1 year. Ultrasound and mammogram of the right breast will be ordered for May. Breast pain, right We previously discussed pote ntial causes of right breast pain. Patient was advised to use supportive bra decrease caffeine intake and try some of the supplements to alleviate the Right breast pain Palpable lymph node Patient previously was noted to have palpable lymph nodes in the right axilla. This was evaluated with a formal sonography of the axillary region. No abnormal lymph nodes were appreciated on the sonography. I provided patient with a copy of that report previously. Skin lesion Patient previously reported right axillary lump.Upon physical examination of the right axillary region a small Skin lesion was noted in the right axilla. This is most consistent with small sebaceous cyst. Patient indicated that this is the lesion which she was feeling. Cystic lesion is not infected at this time. If this continues to bother the patient's we can schedule her for excisional biopsy Large breasts Prevously patient reported t hat her right breast got bigger than the left one. Her diagnostic mammograms did not show any suspicious abnormalities. She is unable to get MRI of the breast due to her chronic kidney disease.It is possible that the enlargement of the breast is due to obesity and ptosis of the breast.No acute surgical intervention warranted at this time Discharge from right nipple Previously patient reporte d right nipple discharge. She had the nipple discharge only twice. Once it was yellowish. Second time patient thinks it might have been bloody. I was not able to express nipple discharge on the clinical breast exam. Patient was found not able to express nipple discharge either.Patient is unable to get MRI of the breast due to chronic kidney disease.With no reproducible nipple discharge we are unable to to currently ductogram as it is unclear which duct should be interrogated.Patient is at high risk for surgical intervention and is currently on Eliquis.We'll continue monitoring her nipple discharge with annual mammograms. She will inform me in she sees new nipple discharge. Hx of deep venous thrombosis Patient is on Eliquis. Th is will need to be stopped prior to any invasive procedure. Family history of cancer Patient participated in our Cancer screening program, [employer] and she was not found to be at increased risk for cancer base on her familyhistory. She does not qualify for genetic testing or high risk screening withMRI of the breast base on her family history. Chronic kidney disease, unspecified CKD stage Unable t o have MRI. We checked with the nephrology team. Next Appt Details Provider Name:Tiffany Hogue, [birth year] 03:30:00 PM, [address] [place] [address], [phone], Provider Name:Randolph Villarreal, 2020-11-17 08:00:00 AM, [address] [place] [address], [phone], Provider Name:Mireille Quijano, 2020-11-18 07:30:00 AM, [address] [place] [address], [phone], Provider Name:Figueroa Iraheta, 2020-12-22 02:30:00 PM, [address] [place] [address], [phone], Provider Name:Tiffany Hogue, [birth year] 01:00:00 PM, [address] [place] [address], [phone], Insurance Providers Payer Name Payer Address Payer Phone Insured Name Patient Relati onship to Insured Coverage Start Date Coverage End Date [facility] [id number] [facility] [id number] JOSS FORD 2014
--- OUTSIDE RECORDS SUMMARY | 2020-11-17 18:45 | CCD ---
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 Active 074579857 Problem MRSA (methicillin resistant Staphylococcus aureus) carrier Z22.322 Active 424193916 Problem CKD stage 3 due to type 2 diabetes mellitus E11.22 Active 564423371991 Problem Primary insomnia F51.01 Active 8387342 Problem Cigarette nicotine dependence with other nicotin e-induced disorder F17.218 Active 77510338490978894 Problem Recurrent deep venous thrombosis I82.409 Active 506293409 Problem Intervertebral disc disorders with radiculopathy , lumbosacral region M51.17 Active 56871312436436447 Problem Essential hypertension I10 Active 91742281 Problem Lesion of ulnar nerve, left upper limb G56.22 Active 205452303917920 Problem Restless leg syndrome G25.81 Active 50183296 Problem Type 2 diabetes mellitus with foot ulcer E11.621 Active 580450721 Problem Nocturnal leg cramps G47.62 Active 340897823 Problem Other chronic pain G89.29 Active 82724369 Problem Gastroparesis K31.84 Active 610405521 Problem Lesion of ulnar nerve, right upper limb G56.21 Active 354407111127304 Problem Pulmonary emphysema, unspecified emphysema type J4 3.9 Active 91483799 Problem Age-related nuclear cataract, left eye H25.12 Active 927635856720006 Problem Type 2 diabetes mellitus with other circulatory compli cations E11.59 Active 27295236 Problem Status post below-knee amputation of left lower extremity Z89.512 Active 513359810937659 Problem Seasonal allergic rhinitis due to pollen J30.1 Active 89546999 Problem Cigarette 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.211 Active 818221902 Problem Mixed hyperlipidemia E78.2 Active 894789836 Problem Age-related nuclear cataract, right eye H25.11 Active 477661711412555 Problem Panic disorder F41.0 Active 525158692 Problem 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.01 A ctive 818547080 Problem [facility] (current) use of insulin Z79.4 Activ e 049343030 Problem Factor V Leiden D68.51 Active 815658466 Problem GERD (gastroesophageal reflux disease) K21.9 A ctive 998343932 Problem Sebaceous cyst of skin of left breast N60.82 Ac tive 90249962 Problem Anticoagulant long-term use Z79.01 Active 7111 33420 Problem Bipolar disorder, current episode manic w/o psyc hotic features, mild F31.11 Active 084027326 Problem Below knee amputation S88.119A Active 364114700 Problem History of factor V Leiden mutation Z86.2 Acti ve 893785262 ALLERGIES Allergen (clinical drug ingredient) Drug/Non Drug Allergy do cumented on EMR Reaction Allergy Type Onset Date Status Sulfa (for allergy use only) Hives Drug Allergy Active Penicillin (For Allergies Use Only) Anaphylaxis Drug Aller gy Active simvastatin Zocor([facility] Code:[address]-90) Hives Drug Allergy Active Glucophage Hives Drug Allergy Active cephalexin Keflex([facility] Code:[address]-47) hives Drug Allergy Active Latex (for allergy use only) Anaphylaxis Drug Allergy Active atorvastatin Lipitor([facility] Code:[address]-38) Hives Drug Allergy Active Fresh Pineapple swollen lips/ sores in mouth Non Drug Josué rgy Active fenofibrate Tricor([facility] Code:[address]-03) Hives Drug Allergy Active ENCOUNTERS from 1969 to 2020-10-29 Encounter Location Date Provider Diagnosis [facility] [address] [place] [phone] Oct, Randolph Villarreal IMMUNIZATIONS Vaccine Route Administration [...] Education Language: Question Answer Notes Languages spoken: Yakut Evangelical: Question Answer Notes Evangelical 33 None Sexual Hx: Question Answer Notes [...] _ for 99 months Jan, Active Cholecalciferol 14987 UNIT 1 capsule Orally once a week on Jun, Active Tamsulosin HCl 0.4 MG Orally Daily HS Active Xopenex 1.25 MG/3ML 3 ml Inhalation Every 6 hours as needed Active EpiPen 0.3 MG/0.3ML 1 injection Injection As nee ded for allergic reaction for 30 day(s) Active Nystatin Powder 222888 UNIT powder Externally to bilat eral berast and abd pannus daily as needed daily for 30 days Active Cyclobenzaprine HCl 10 MG 1 tab Orally Three times a day prn mus telly spasms May, Active Refresh 1 % 1 drop into affected eye as needed Ophth almic four times daily prn Active Cetirizine HCl 10 MG 1 tablet Orally Once a day Jan, Active Eliquis 5 MG 1 tablet Orally [...] sit for 5 minutes Jul, Active Pen Jerome 3/16" 31G X 5 MM as directed 5 times daily Aug, Active PROCEDURES No Information RESULTS No Results REASON FOR VISIT No Information MEDICAL (GENERAL) HISTORY Type Description Date Medical [...] Chronic back pain, thoracic DDD - Dr. aMry simpson Medical History Temporal Lobe Seizures in [...] intervention Medical History Hx urinary retention - [facility] Urology Medical History Hx Wynn's Palsy - [...] Information ASSESSMENTS No Information PLAN OF TREATMENT Medication Medication Name Sig Start Date Stop Date Valacyclovir HCl 1 GM 1 tablet Orally every 24 hrs as needed for 10 day(s) Next Appt Details Provider Name:Tiffany Hogue, 06-11-14 01:30:00 PM, [address] [place] [address], [address], Provider Name:Mireille Quijano, 2020-11-18 07:30:00 AM, [address] [place], [address], Provider Name:Randolph Villarreal, 2020-11-21 10:30:00 AM, [address] [place], [address], Provider Name:Tiffany Hogue, 06-06-27 01:00:00 PM, [address] [place], [address], Insurance Providers Payer Name Payer Address Payer Phone Insured Name Patient Relati onship to Insured Coverage Start Date Coverage End Date [facility] [address] [facility] [phone] JOSS FORD 2013
--- OUTSIDE RECORDS SUMMARY | 2020-11-17 18:45 | CCD ---
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 Active 560821761 Problem MRSA (methicillin resistant Staphylococcus aureus) carrier Z22.322 Active 001650597 Problem CKD stage 3 due to type 2 diabetes mellitus E11.22 Active 120613079991 Problem Primary insomnia F51.01 Active 6562213 Problem Cigarette nicotine dependence with other nicotin e-induced disorder F17.218 Active 26894257516542919 Problem Recurrent deep venous thrombosis I82.409 Active 045351508 Problem Intervertebral disc disorders with radiculopathy , lumbosacral region M51.17 Active 53504703208823343 Problem Essential hypertension I10 Active 06698252 Problem Lesion of ulnar nerve, left upper limb G56.22 Active 481330558295808 Problem Restless leg syndrome G25.81 Active 48870559 Problem Type 2 diabetes mellitus with foot ulcer E11.621 Active 467961593 Problem Nocturnal leg cramps G47.62 Active 369894149 Problem Other chronic pain G89.29 Active 89621080 Problem Gastroparesis K31.84 Active 305098212 Problem Lesion of ulnar nerve, right upper limb G56.21 Active 354222112685390 Problem Pulmonary emphysema, unspecified emphysema type J4 3.9 Active 00010742 Problem Age-related nuclear cataract, left eye H25.12 Active 593530431830755 Problem Type 2 diabetes mellitus with other circulatory compli cations E11.59 Active 72613385 Problem Status post below-knee amputation of left lower extremity Z89.512 Active 071495998356968 Problem Seasonal allergic rhinitis due to pollen J30.1 Active 51487790 Problem Cigarette 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.211 Active 923108905 Problem Mixed hyperlipidemia E78.2 Active 079760062 Problem Age-related nuclear cataract, right eye H25.11 Active 367041861796894 Problem Panic disorder F41.0 Active 510160324 Problem 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 L97.412 Active 420671092 Problem History of ischemic colitis Z87.19 Active 1099 121466498279 Problem Non-pressure chronic ulcer o f other part of unspecified foot with unspecified severity L97.509 Active 371690430 Problem Iron deficiency anemia, unspecified iron deficiency an emia type D50.9 Active 91543585 Problem Chronic kidney disease, unspecified CKD stage N18. 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.22 Active 57293930 Problem Ulcerative colitis with complication, unspecified location K51.919 Active 66955984 Problem History of diabetes mellitus Z86.39 Active 161 661082 Problem PA (obstructive sleep apnea) G47.33 Active 78 513506 Problem 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 Active 45573771 Problem History of MRSA infection Z86.14 Active 252656 000 Problem Carpal tunnel syndrome of right wrist G56.01 Ac tive 049762337774336 Problem [facility]P current use of anticoagulant Z79.01 A ctive 899168070 Problem [facility]P (current) use of insulin Z79.4 Activ e 872103938 Problem Factor V Leiden D68.51 Active 051123374 Problem GERD (gastroesophageal reflux disease) K21.9 A ctive 257193872 Problem Sebaceous cyst of skin of left breast N60.82 Ac tive 12481795 Problem Anticoagulant long-term use Z79.01 Active 7111 06229 Problem Bipolar disorder, current episode manic w/o psyc hotic features, mild F31.11 Active 503568717 Problem Below knee amputation S88.119A Active 105047575 Problem History of factor V Leiden mutation Z86.2 Acti ve 361885289 ALLERGIES Allergen (clinical drug ingredient) Drug/Non Drug Allergy do cumented on EMR Reaction Allergy Type Onset Date Status Sulfa (for allergy use only) Hives Drug Allergy Active Penicillin (For Allergies Use Only) Anaphylaxis Drug Aller gy Active simvastatin Zocor([facility] Code:[address]-09) Hives Drug Allergy Active Glucophage Hives Drug Allergy Active cephalexin Keflex([facility] Code:[address]-69) hives Drug Allergy Active Latex (for allergy use only) Anaphylaxis Drug Allergy Active atorvastatin Lipitor([facility] Code:[address]-66) Hives Drug Allergy Active Fresh Pineapple swollen lips/ sores in mouth Non Drug Josué rgy Active fenofibrate Tricor([facility] Code:[address]-68) Hives Drug Allergy Active ENCOUNTERS from 1969 to 2020-11-04 Encounter Location Date Provider Diagnosis [address] [address] Oct, Mireille Quijano Status post below knee amputation of lef t lower extremity Z89.512 IMMUNIZATIONS Vaccine Route Administration Date Status Influenza [...] Education Language: Question Answer Notes Languages spoken: Danish Orthodoxy: Question Answer Notes Orthodoxy 33 None Sexual Hx: Question Answer Notes [...] Information RESULTS No Results REASON FOR VISIT wheelchair MEDICAL (GENERAL) HISTORY Type Description Date Medical [...] intervention Medical History Hx urinary retention - [facility] Urology Medical History Hx Wynn's Palsy [...] Treatment Notes Treatm ent Clinical Notes Oct, Status post below knee amput ation of left lower extremity (ICD-10 - Z89.512) PLAN OF TREATMENT Next Appt Details Provider Name:Randolph Villarreal, 2020-11-07 02:30:00 PM, [address] [place] [address], [phone], Provider Name:Tiffany Hogue, 06-11-28 03:30:00 PM, [address] [place] [address], [address], Provider Name:Randolph Villarreal, 2020-11-17 08:00:00 AM, [address] [place] [address], [address], Provider Name:Mireille Quijano, 2020-11-18 07:30:00 AM, [address] [place] [address], [phone], Provider Name:Figueroa Iraheta, 2020-12-22 02:30:00 PM, [address] [place] [address], [address], Provider Name:Tiffany Hogue, 06-06-27 01:00:00 PM, [address] [place] [address], [address], Insurance Providers Payer Name Payer Address Payer Phone Insured Name Patient Relati onship to Insured Coverage Start Date Coverage End Date [facility] [address] [facility] [address] [phone] JOSS FORD 2013
--- OUTSIDE RECORDS SUMMARY | 2020-11-17 18:45 | CCD ---
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 Active 182823387 Problem MRSA (methicillin resistant Staphylococcus aureus) carrier Z22.322 Active 962667335 Problem CKD stage 3 due to type 2 diabetes mellitus E11.22 Active 090045855889 Problem Primary insomnia F51.01 Active 0244310 Problem Cigarette nicotine dependence with other nicotin e-induced disorder F17.218 Active 24266926363509340 Problem Recurrent deep venous thrombosis I82.409 Active 448166925 Problem Intervertebral disc disorders with radiculopathy , lumbosacral region M51.17 Active 91362188696080080 Problem Essential hypertension I10 Active 20563046 Problem Lesion of ulnar nerve, left upper limb G56.22 Active 958101045786465 Problem Restless leg syndrome G25.81 Active 77307932 Problem Type 2 diabetes mellitus with foot ulcer E11.621 Active 896216861 Problem Nocturnal leg cramps G47.62 Active 814513114 Problem Other chronic pain G89.29 Active 02986747 Problem Gastroparesis K31.84 Active 701323146 Problem Lesion of ulnar nerve, right upper limb G56.21 Active 755738638387269 Problem Pulmonary emphysema, unspecified emphysema type J4 3.9 Active 72051386 Problem Age-related nuclear cataract, left eye H25.12 Active 925948043505783 Problem Type 2 diabetes mellitus with other circulatory compli cations E11.59 Active 52177436 Problem Status post below-knee amputation of left lower extremity Z89.512 Active 128798859768691 Problem Seasonal allergic rhinitis due to pollen J30.1 Active 68195226 Problem Cigarette 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.211 Active 176975468 Problem Mixed hyperlipidemia E78.2 Active 128975571 Problem Age-related nuclear cataract, right eye H25.11 Active 305922162785134 Problem Panic disorder F41.0 Active 724371027 Problem 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 L97.412 Active 618933241 Problem History of ischemic colitis Z87.19 Active 1099 013476859502 Problem Non-pressure chronic ulcer o f other part of unspecified foot with unspecified severity L97.509 Active 415889895 Problem Iron deficiency anemia, unspecified iron deficiency an emia type D50.9 Active 17661089 Problem Chronic kidney disease, unspecified CKD stage N18. 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 Z79.01 A ctive 958532268 Problem senior living (current) use of insulin Z79.4 Activ e 238145091 Problem Factor V Leiden D68.51 Active 420793350 Problem GERD (gastroesophageal reflux disease) K21.9 A ctive 996331200 Problem Sebaceous cyst of skin of left breast N60.82 Ac tive 45142535 Problem Anticoagulant long-term use Z79.01 Active 7111 98904 Problem Bipolar disorder, current episode manic w/o psyc hotic features, mild F31.11 Active 491630127 Problem Below knee amputation S88.119A Active 500128604 Problem History of factor V Leiden mutation Z86.2 Acti ve 466808603 ALLERGIES Allergen (clinical drug ingredient) Drug/Non Drug Allergy do cumented on EMR Reaction Allergy Type Onset Date Status Sulfa (for allergy use only) Hives Drug Allergy Active Penicillin (For Allergies Use Only) Anaphylaxis Drug Aller gy Active simvastatin Zocor([facility] Code:[address]-32) Hives Drug Allergy Active Glucophage Hives Drug Allergy Active cephalexin Keflex([facility] Code:[address]-09) hives Drug Allergy Active Latex (for allergy use only) Anaphylaxis Drug Allergy Active atorvastatin Lipitor([facility] Code:[address]-86) Hives Drug Allergy Active Fresh Pineapple swollen lips/ sores in mouth Non Drug Josué rgy Active fenofibrate Tricor([facility] Code:[address]-50) Hives Drug Allergy Active ENCOUNTERS from 1969 to 2020-11-01 Encounter Location Date Provider Diagnosis [facility] [address] [place] [phone] Oct, Randolph Villarreal IMMUNIZATIONS Vaccine Route Administration [...] Education Language: Question Answer Notes Languages spoken: Setswana Faith: Question Answer Notes Faith 33 None Sexual Hx: Question Answer Notes [...] Notes Start Da te End Date Status Levofloxacin 250 MG 2 tablets Orally Once a day for 10 day(s) Oct, Active PROCEDURES No Information RESULTS No Results REASON FOR VISIT REFERRAL MEDICAL (GENERAL) HISTORY Type Description Date Medical [...] intervention Medical History Hx urinary retention - [facility] Urology Medical History Hx Wynn's [...] Surgical History Left charcot foot debridement: Dr. Kushal chisholm 02/2017 Surgical History Left BKA for chronic [...] Federico pena intervention//CT he 03/20- Hospitalization History saul brandt 10/08/2018 Hospitalization History 3 days renal failure 05/22/2019 Hospitalization History right foot cellulitis 06/2019 Hospitalization History HYPOTENSION W/ FALL 05/27/20 Goals Section No Information Health Concerns No Information MEDICAL EQUIPMENT No Information MENTAL STATUS No Information FUNCTIONAL STATUS No Information ASSESSMENTS No Information PLAN OF TREATMENT Medication Medication Name Sig Start Date Stop Date Levofloxacin 250 MG 2 tablets Orally Once a day for 10 day(s) Oct, Next Appt Details Provider Name:Tiffany Hogue, 06-11-17 01:30:00 PM, [address] [place] [address], [address], Provider Name:Mireille Quijano, 2020-11-18 07:30:00 AM, [facility] [place], [address], Provider Name:Randolph Villarreal, 2020-11-21 10:30:00 AM, [address] [place], [address], Provider Name:Tiffany Hogue, 06-06-27 01:00:00 PM, [address] [place] [address], [address], Insurance Providers Payer Name Payer Address Payer Phone Insured Name Patient Relati onship to Insured Coverage Start Date Coverage End Date [facility] [place] [address] [facility] [id number] JOSS FORD 2013
--- OUTSIDE RECORDS SUMMARY | 2020-11-17 18:46 | CCD ---
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 Active 115482384 Problem MRSA (methicillin resistant Staphylococcus aureus) carrier Z22.322 Active 036422055 Problem CKD stage 3 due to type 2 diabetes mellitus E11.22 Active 078602992555 Problem Primary insomnia F51.01 Active 6994204 Problem Cigarette nicotine dependence with other nicotin e-induced disorder F17.218 Active 27987020970025551 Problem Recurrent deep venous thrombosis I82.409 Active 667842097 Problem Intervertebral disc disorders with radiculopathy , lumbosacral region M51.17 Active 02134033825807233 Problem Essential hypertension I10 Active 04693627 Problem Lesion of ulnar nerve, left upper limb G56.22 Active 468289370931192 Problem Restless leg syndrome G25.81 Active 08021268 Problem Type 2 diabetes mellitus with foot ulcer E11.621 Active 188425622 Problem Nocturnal leg cramps G47.62 Active 720841773 Problem Other chronic pain G89.29 Active 63510821 Problem Gastroparesis K31.84 Active 847755918 Problem Lesion of ulnar nerve, right upper limb G56.21 Active 968641510699066 Problem Pulmonary emphysema, unspecified emphysema type J4 3.9 Active 29874106 Problem Age-related nuclear cataract, left eye H25.12 Active 043134575085952 Problem Type 2 diabetes mellitus with other circulatory compli cations E11.59 Active 81580932 Problem Status post below-knee amputation of left lower extremity Z89.512 Active 376794378960680 Problem Seasonal allergic rhinitis due to pollen J30.1 Active 12092668 Problem Cigarette 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.211 Active 389818280 Problem Mixed hyperlipidemia E78.2 Active 503965636 Problem Age-related nuclear cataract, right eye H25.11 Active 839782689872860 Problem Panic disorder F41.0 Active 053831197 Problem 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.22 Active 40395543 Problem Ulcerative colitis with complication, unspecified location K51.919 Active 51618621 Problem History of diabetes mellitus Z86.39 Active 161 539697 Problem PA (obstructive sleep apnea) G47.33 Active 78 593054 Problem 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 Active 26863711 Problem History of MRSA infection Z86.14 Active 947039 000 Problem Carpal tunnel syndrome of right wrist G56.01 Ac tive 473742912160991 Problem snf current use of anticoagulant Z79.01 A ctive 916362464 Problem snf (current) use of insulin Z79.4 Activ e 655387277 Problem Factor V Leiden D68.51 Active 213353690 Problem GERD (gastroesophageal reflux disease) K21.9 A ctive 043439642 Problem Sebaceous cyst of skin of left breast N60.82 Ac tive 36241784 Problem Anticoagulant long-term use Z79.01 Active 7111 12668 Problem Bipolar disorder, current episode manic w/o psyc hotic features, mild F31.11 Active 632727303 Problem Below knee amputation S88.119A Active 977127603 Problem History of factor V Leiden mutation Z86.2 Acti ve 637866457 ALLERGIES Allergen (clinical drug ingredient) Drug/Non Drug Allergy do cumented on EMR Reaction Allergy Type Onset Date Status Sulfa (for allergy use only) Hives Drug Allergy Active Penicillin (For Allergies Use Only) Anaphylaxis Drug Aller gy Active simvastatin Zocor([facility] Code:[address]-27) Hives Drug Allergy Active Glucophage Hives Drug Allergy Active cephalexin Keflex([facility] Code:[address]-43) hives Drug Allergy Active Latex (for allergy use only) Anaphylaxis Drug Allergy Active atorvastatin Lipitor([facility] Code:[address]-58) Hives Drug Allergy Active Fresh Pineapple swollen lips/ sores in mouth Non Drug Josué rgy Active fenofibrate Tricor([facility] Code:[address]-00) Hives Drug Allergy Active ENCOUNTERS from 1969 to 2020-10-27 Encounter Location Date Provider Diagnosis [address] [address] Oct, Mireille Macie IMMUNIZATIONS Vaccine Route Administration Date Status Influenza [...] Education Language: Question Answer Notes Languages spoken: Italian Mandaen: Question Answer Notes Mandaen 33 None Sexual Hx: Question Answer Notes [...] _ for 99 months Jan, Active Cholecalciferol 40170 UNIT 1 capsule Orally once a week on Jun, Active Tamsulosin HCl 0.4 MG Orally Daily HS Active Xopenex 1.25 MG/3ML 3 ml Inhalation Every 6 hours as needed Active EpiPen 0.3 MG/0.3ML 1 injection Injection As nee ded for allergic reaction for 30 day(s) Active Nystatin Powder 945996 UNIT powder Externally to bilat eral berast [...] sit for 5 minutes Jul, Active Pen [place] 3/16" 31G X 5 MM as directed 5 times daily Aug, Active PROCEDURES No Information RESULTS No Results REASON FOR VISIT valtrex MEDICAL (GENERAL) HISTORY Type Description Date Medical [...] mellitus wit h other circulatory complications - [place] Medical History Hx recto-sigmoid ischemic co litis 03/2018 confirmed by sigmoid c bx-Jaylin, msesnteric arteriogram s intervention Medical History Hx urinary retention - [facility] Urology Medical History Hx Wynn's Palsy [...] Details Provider Name:Tiffany Hogue, 06-11-14 01:30:00 PM, [address] [place] [address], [id number], Provider Name:Mireille Quijano, 2020-11-18 07:30:00 AM, [address] [place], [address], Provider Name:Randolph Villarreal, 2020-11-21 10:30:00 AM, [address] [place], [address], Provider Name:Tiffany Hogue, 06-06-27 01:00:00 PM, [address] [place], [address], Insurance Providers Payer Name Payer Address Payer Phone Insured Name Patient Relati onship to Insured Coverage Start Date Coverage End Date [facility] [id number] [facility] [phone] JOSS FORD self 2013
--- OUTSIDE RECORDS SUMMARY | 2020-11-17 18:46 | CCD ---
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 Active 791108098 Problem MRSA (methicillin resistant Staphylococcus aureus) carrier Z22.322 Active 021454988 Problem CKD stage 3 due to type 2 diabetes mellitus E11.22 Active 015228144564 Problem Primary insomnia F51.01 Active 5702029 Problem Cigarette nicotine dependence with other nicotin e-induced disorder F17.218 Active 56885445797413909 Problem Recurrent deep venous thrombosis I82.409 Active 012569500 Problem Intervertebral disc disorders with radiculopathy , lumbosacral region M51.17 Active 44423542477487461 Problem Essential hypertension I10 Active 41420302 Problem Lesion of ulnar nerve, left upper limb G56.22 Active 478041138814253 Problem Restless leg syndrome G25.81 Active 77930764 Problem Type 2 diabetes mellitus with foot ulcer E11.621 Active 117740015 Problem Nocturnal leg cramps G47.62 Active 764510062 Problem Other chronic pain G89.29 Active 56192339 Problem Gastroparesis K31.84 Active 469560781 Problem Lesion of ulnar nerve, right upper limb G56.21 Active 096064614138200 Problem Pulmonary emphysema, unspecified emphysema type J4 3.9 Active 55909492 Problem Age-related nuclear cataract, left eye H25.12 Active 171364415515904 Problem Type 2 diabetes mellitus with other circulatory compli cations E11.59 Active 53195725 Problem Status post below-knee amputation of left lower extremity Z89.512 Active 483036301100124 Problem Seasonal allergic rhinitis due to pollen J30.1 Active 66335932 Problem Cigarette 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.211 Active 898992020 Problem Mixed hyperlipidemia E78.2 Active 674472975 Problem Age-related nuclear cataract, right eye H25.11 Active 667031702059304 Problem Panic disorder F41.0 Active 895119587 Problem 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 L97.412 Active 494830981 Problem History of ischemic colitis Z87.19 Active 1099 893981525261 Problem Non-pressure chronic ulcer o f other part of unspecified foot with unspecified severity L97.509 Active 214519352 Problem Iron deficiency anemia, unspecified iron deficiency an emia type D50.9 Active 41951269 Problem Chronic kidney disease, unspecified CKD stage N18. 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.22 Active 93913970 Problem Ulcerative colitis with complication, unspecified location K51.919 Active 94597747 Problem History of diabetes mellitus Z86.39 Active 161 306795 Problem PA (obstructive sleep apnea) G47.33 Active 78 347375 Problem 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 Active 91211192 Problem History of MRSA infection Z86.14 Active 447719 000 Problem Carpal tunnel syndrome of right wrist G56.01 Ac tive 812615240170602 Problem intermediate frame tender current use of anticoagulant Z79.01 A ctive 368863093 Problem correction (current) use of insulin Z79.4 Activ e 099218008 Problem Factor V Leiden D68.51 Active 149094769 Problem GERD (gastroesophageal reflux disease) K21.9 A ctive 902375632 Problem Sebaceous cyst of skin of left breast N60.82 Ac tive 06210025 Problem Anticoagulant long-term use Z79.01 Active 7111 34805 Problem Bipolar disorder, current episode manic w/o psyc hotic features, mild F31.11 Active 043915972 Problem Below knee amputation S88.119A Active 300906130 Problem History of factor V Leiden mutation Z86.2 Acti ve 343921982 ALLERGIES Allergen (clinical drug ingredient) Drug/Non Drug Allergy do cumented on EMR Reaction Allergy Type Onset Date Status Sulfa (for allergy use only) Hives Drug Allergy Active Penicillin (For Allergies Use Only) Anaphylaxis Drug Aller gy Active simvastatin Zocor([facility] Code:[address]-05) Hives Drug Allergy Active Glucophage Hives Drug Allergy Active cephalexin Keflex([facility] Code:[address]-34) hives Drug Allergy Active Latex (for allergy use only) Anaphylaxis Drug Allergy Active atorvastatin Lipitor([facility] Code:[address]-48) Hives Drug Allergy Active Fresh Pineapple swollen lips/ sores in mouth Non Drug Josué rgy Active fenofibrate Tricor([facility] Code:[address]-65) Hives Drug Allergy Active ENCOUNTERS from 1969 to 2020-10-19 Encounter Location Date Provider Diagnosis [facility] [address] [place] [address] 11 Jun, 2020 Tiffany Hgoue IMMUNIZATIONS Vaccine Route Administration Date Status Influenza [...] Assigned At Unknown Audit Question Answer Notes Interpretation: Alcohol Education Total Score: 0 Language: Question Answer Notes Languages spoken: Indonesian Orthodoxy: Question Answer Notes Orthodoxy 33 None Sexual Hx: Question Answer Notes Had sex in the last 12 months (vaginal, oral, or anal)? Yes Have you ever had an STD? No Prevention Strategies discussed: Condoms with Men only Use protection? No Drug and Alcohol Question Answer Notes Interpretation: No problems reported Total Score: 0 BMI Care Goal Follow-Up Question Answer Notes Above Normal BMI Follow-Up Lifestyle education regarding t Tobacco Use: Question Answer Notes Are you a: former smoker How long has it been since you last smoked? 6-12 months REASON FOR REFERRAL No Information VITAL SIGNS No information MEDICATIONS Medication SIG (Take, Route, Frequency, Duration) Notes Start Da te End Date Status Methylphenidate HCl ER (LA) 20 MG 1 capsule in the morning Orall y Once a day Jun, Active FreeStyle [place] 14 Day Sensor - as directed Dx E11.9 2019 Active Cetirizine HCl 10 MG 1 tablet Orally Once a day Jan, 15 Active May Use - wheel chair dx code Z89.512 _ for 99 months Jan, Active Valacyclovir HCl 1 GM 1 tablet Orally every 24 hrs as needed Active Wheelchair - as directed Power wheelchair; Dx M54.41, G56.21, Z89.512, M62.81 Apr, Active Cholecalciferol 06373 UNIT 1 capsule Orally once a week on Jun, Active Singulair 10 MG 1 tablet Orally Once a day Active Probiotic - Orally Active Rosuvastatin Calcium 10 MG 1 tablet Orally Once a day 14 M 2017 Active Ketoconazole 2 % 5 applications to scalp Exte rnally Once a day and let sit for 5 minutes Jul, Active EpiPen 0.3 MG/0.3ML 1 injection Injection As nee ded for allergic reaction for 30 day(s) Active Eliquis 5 MG 1 tablet Orally BID Act gonzales Misc. Devices - as directed Repair and repla ce prosthetic and liners as needed; Dx Z89.51 Jan, Active Cymbalta 60 MG 2 capsuleS Orally daily May, Active Tamsulosin HCl 0.4 MG Orally Daily HS Active Clobetasol Propionate 0.05 % 1 application to affected area Externally twice a day to scalp Jul, Active BD Pen Mini - as directed E11.9 qid for 30 day(s) May, Active TraZODone HCl 100 MG 2 tablets orally Once a day at hs Active Xopenex 1.25 MG/3ML 3 ml Inhalation Every 6 hours as needed Active Dexilant 60 MG 1 capsule Orally Once a day for 90 Active Betamethasone Valerate 0.1 % 1 application to affected area Externally Once a day Jan, Active Torsemide 20 MG 2 tab Orally Daily A ctive Cyclobenzaprine HCl 10 MG 1 tab Orally Three times a day prn mus telly spasms May, Active Restasis 0.05 % 1 drop into affected eye Ophthalmic three times a day Active Pen [place] 12/30" 31G X 5 MM as directed 5 times daily Aug, Active ProAir HFA 108 (90 Base) MCG/ACT 2 puffs as needed Inhalation ev agustina 6 hrs May, Active Tresiba 200 U/mL 300 units subcutaneously daily Active Hibiclens 4 % as directed Externally twice a day Jul, 019 Active Lyrica 300 MG 1 capsule Orally Twice a day (pain clinic) Active Symbicort 80-4.5 MCG/ACT 2 puffs Inhalation Twice a day May, Active Ropinirole HCl 2 MG 1 tablet at 8 pm and at midnight Orally BID May, Active Humalog KwikPen 200 UNIT/ML as directed Subcutaneous T ID per sliding scale; max daily #40 units Active Bactroban 2% as directed applied topically twice a day Jul, Active Hydrocodone-Acetaminophen 10-325 MG 1 tablet as needed Orally every 4 hrs Active Magnesium Chloride 64 MG 1 tablet Orally Daily May, 9 Active Collagen Ultra - 1 cap Orally Daily May, Active Zofran 8 MG 1 tab PRN nausea Orally every 12 hours Jun, Active Refresh 1 % 1 drop into affected eye as needed Ophth almic four times daily prn Active Nystatin Powder 789375 UNIT powder Externally to bilat eral berast and abd pannus daily as needed daily for 30 days Active Wheelchair - as directed Dx Z89.51, M54.41 Jan, Active PROCEDURES No Information RESULTS No Results REASON FOR VISIT results of b/l dx mammo MEDICAL (GENERAL) HISTORY Type Description Date Medical [...] mellitus wit h other circulatory complications - [place] Medical History Hx recto-sigmoid ischemic co litis 03/2018 confirmed by sigmoid c bx-Jalyin, msesnteric arteriogram s intervention Medical History Hx urinary retention - [facility] Urology Medical History Hx Wynn's Palsy [...] - normal; Dr. Mosqueda 10/2018 Surgical History R-eye cataract surgery 09/2020 Hospitalization History sepsis, L foot ulcer, [...] Medication Name Sig Start Date Stop Date Dexilant 60 MG 1 capsule Orally Once a day for 90 Next Appt Details Provider Name:Randolph Villarreal, 2020-10-24 01:45:00 PM, [address] [place], [address], Provider Name:Tiffany Hogue, 06-11-14 01:30:00 PM, [address] [place] [address], [phone], Provider Name:Mireille Quijano, 2020-11-18 07:30:00 AM, [address] [place] [address], [phone], Provider Name:Tiffany Hogue, 06-06-27 01:00:00 PM, [address] [place] [address], [id number], Insurance Providers Payer Name Payer Address Payer Phone Insured Name Patient Relati onship to Insured Coverage Start Date Coverage End Date [facility] [address] [facility] [id number] JOSS FORD self 2013
--- OUTSIDE RECORDS SUMMARY | 2020-11-17 18:46 | CCD ---
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 Active 323452144 Problem MRSA (methicillin resistant Staphylococcus aureus) carrier Z22.322 Active 309387430 Problem CKD stage 3 due to type 2 diabetes mellitus E11.22 Active 328739481000 Problem Primary insomnia F51.01 Active 0824641 Problem Cigarette nicotine dependence with other nicotin e-induced disorder F17.218 Active 09901798696789497 Problem Recurrent deep venous thrombosis I82.409 Active 889638611 Problem Intervertebral disc disorders with radiculopathy , lumbosacral region M51.17 Active 47225099377432347 Problem Essential hypertension I10 Active 83316370 Problem Lesion of ulnar nerve, left upper limb G56.22 Active 283975270477234 Problem Restless leg syndrome G25.81 Active 26390049 Problem Type 2 diabetes mellitus with foot ulcer E11.621 Active 819659494 Problem Nocturnal leg cramps G47.62 Active 525217887 Problem Other chronic pain G89.29 Active 88774622 Problem Gastroparesis K31.84 Active 075942044 Problem Lesion of ulnar nerve, right upper limb G56.21 Active 844744175431275 Problem Pulmonary emphysema, unspecified emphysema type J4 3.9 Active 86042093 Problem Age-related nuclear cataract, left eye H25.12 Active 603049185652921 Problem Type 2 diabetes mellitus with other circulatory compli cations E11.59 Active 38436088 Problem Status post below-knee amputation of left lower extremity Z89.512 Active 285708932069417 Problem Seasonal allergic rhinitis due to pollen J30.1 Active 82301832 Problem Cigarette 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.211 Active 135295550 Problem Mixed hyperlipidemia E78.2 Active 814873669 Problem Age-related nuclear cataract, right eye H25.11 Active 981356600750200 Problem Panic disorder F41.0 Active 305227512 Problem 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 A ctive 830087566 Problem superintendent terminal (current) use of insulin Z79.4 Activ e 742691766 Problem Factor V Leiden D68.51 Active 414679347 Problem GERD (gastroesophageal reflux disease) K21.9 A ctive 751916443 Problem Sebaceous cyst of skin of left breast N60.82 Ac tive 01478337 Problem Anticoagulant long-term use Z79.01 Active 7111 24777 Problem Bipolar disorder, current episode manic w/o psyc hotic features, mild F31.11 Active 927396425 Problem Below knee amputation S88.119A Active 203800760 Problem History of factor V Leiden mutation Z86.2 Acti ve 289215531 ALLERGIES Allergen (clinical drug ingredient) Drug/Non Drug Allergy do cumented on EMR Reaction Allergy Type Onset Date Status Sulfa (for allergy use only) Hives Drug Allergy Active Penicillin (For Allergies Use Only) Anaphylaxis Drug Aller gy Active simvastatin Zocor([facility] Code:[address]-99) Hives Drug Allergy Active Glucophage Hives Drug Allergy Active cephalexin Keflex([facility] Code:[address]-45) hives Drug Allergy Active Latex (for allergy use only) Anaphylaxis Drug Allergy Active atorvastatin Lipitor([facility] Code:[address]-11) Hives Drug Allergy Active Fresh Pineapple swollen lips/ sores in mouth Non Drug Josué rgy Active fenofibrate Tricor([facility] Code:[address]-64) Hives Drug Allergy Active ENCOUNTERS from 1969 to 2020-09-24 Encounter Location Date Provider Diagnosis [facility] [address] [place] [address] Aug Yung Reis Type 2 diabetes mellitus with foot ulcer E11.621 ; Non-pressure chronic ulcer of right heel and midfoot with fat layer exposed L97.412 and Immunization not carried out because of patient refusal Z28.21 IMMUNIZATIONS Vaccine Route Administration Date Status Influenza [...] Education Language: Question Answer Notes Languages spoken: Belgian Voodoo: Question Answer Notes Voodoo 33 None Sexual Hx: Question Answer Notes [...] FOR REFERRAL No Information VITAL SIGNS Weight 265 lbs Aug, Weight-kg PER PT kg Aug, Height 70 in Aug, BMI 38.02 kg/m2 Aug, Heart Rate 94 /min Aug, Respiratory Rate 17 /min Aug, Temperature 96.5 degrees Fahrenheit Aug, Oximetry 98% Aug, Blood pressure systolic 143 mm Hg Aug, Blood pressure diastolic 62 mm Hg Aug, MEDICATIONS Medication SIG (Take, Route, Frequency, Duration) Notes Start Da te End Date Status Methylphenidate HCl ER (LA) 20 MG 1 capsule in the morning Orall y Once a day Jun, Active FreeStyle Dwight 14 Day Sensor - as directed Dx E11.9 2019 Active Eliquis 5 MG 1 tablet Orally BID Act gonzales May Use - wheel chair dx code Z89.512 _ for 99 months Jan, Active Valacyclovir HCl 1 GM 1 tablet Orally every 24 hrs as needed Active Wheelchair - as directed Power wheelchair; Dx M54.41, G56.21, Z89.512, M62.81 Apr, Active Cetirizine HCl 10 MG 1 tablet Orally Once a day Jan, 15 Active Singulair 10 MG 1 tablet Orally Once a day Active Probiotic - Orally Active Dexilant 60 MG 1 capsule Orally Once a day May, Active Ketoconazole 2 % 5 applications to scalp Exte rnally Once a day and let sit for 5 minutes Jul, Active EpiPen 0.3 MG/0.3ML 1 injection Injection As nee ded for allergic reaction for 30 day(s) Active Rosuvastatin Calcium 10 MG 1 tablet Orally Once a day 14 M 2017 Active Misc. Devices - as directed Repair [...] Inhalation Every 6 hours as needed Active Ropinirole HCl 2 MG 1 tablet at 8 pm and at midnight Orally BID May, Active Betamethasone Valerate 0.1 % 1 application to affected area Externally Once a day Jan, Active Torsemide 20 MG 2 tab Orally Daily A ctive Cyclobenzaprine HCl 10 MG 1 tab Orally Three times a day prn mus telly spasms May, Active Restasis 0.05 % 1 drop into affected eye Ophthalmic three times a day Active Pen [place] 12/30" 31G X 5 MM as directed [...] puffs Inhalation Twice a day May, Active Cholecalciferol 82947 UNIT 1 capsule Orally once a week on Jun, Active Humalog KwikPen 200 UNIT/ML as directed [...] four times daily prn Active Nystatin Powder 198876 UNIT powder Externally to bilat eral berast and abd pannus daily as needed daily for 30 days Active Wheelchair - as directed Dx Z89.51, M54.41 Jan, Active PROCEDURES from 1969 to 2020-09-24 Procedure Date Ordered Result Body Site LIDOCAINE 4% CREAM TOPICAL 2020-09-08 N/A RESULTS No Results REASON FOR VISIT RLE wounds MEDICAL (GENERAL) HISTORY Type Description Date Medical [...] intervention Medical History Hx urinary retention - [facility] Medical History Hx Wynn's Palsy - [...] Notes Treatment Notes Treatm ent Clinical Notes Aug, Type 2 diabetes mellitus with foot ulcer (ICD-10 - E11.621) Aug, 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 (ICD-10 - L97.412) Aug, Immunization not carried out because of patient refusal (ICD-10 - Z28.21) PLAN OF TREATMENT Next Appt Details 2 Weeks Reason: Provider Name:Randolph Villarreal, 2020-10-24 01:45:00 PM, [address] [place], [phone], Provider Name:Tiffany Hogue, 06-11-14 01:30:00 PM, [address] [place] [address], [id number], Provider Name:Mireille Quijano, 2020-11-18 07:30:00 AM, [address] [place] [address], [phone], Provider Name:Tiffany Hogue, 06-06-27 01:00:00 PM, [address] [place] [address], [id number], Insurance Providers Payer Name Payer Address Payer Phone Insured Name Patient Relati onship to Insured Coverage Start Date Coverage End Date [place] [address] [facility] [phone] JOSS FORD 2014
--- OUTSIDE RECORDS SUMMARY | 2020-11-17 18:46 | CCD ---
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 Name Role Phone Brady OD, Clint Unavailable [phone] Victoriano ROBERSON, Zion Unavailable [phone] Macie ROBERSON, Mireille Cool PP [phone] Taran DO, Brandon Unavailable [phone] Reason for Referral No Reason for Referral Recorded Problems Includes: Active, inactive, and resolved Problems All Visits Onset Date - Time Resolved Date - Time Provider Co ndition Status Posterior Capsule Opacification Eccentric Capsule Righ t Eye 09/26/2020 - 12:00AM Brandon Chirinos DO Active Cystoid Macular Edema 09/26/2020 - 12:00AM Brandon lou DO Active Pseudophakia 09/04/2020 - 12:00AM Brandon Chirinos DO Active Blepharitis Squamous 10/24/2019 - 12:00AM Brandon braga DO Active Squamous blepharitis right lower eyelid 10/24/2019 - 12:00AM Brandon Chirinos DO Active Squamous blepharitis left upper eyelid 10/24/2019 - 12:00AM Brandon Chirinos DO Active Squamous blepharitis left lower eyelid 10/24/2019 - 12:00AM Brandon Chirinos DO Active Type 1 Diab W/ Diab Retinopathy Mod Nonprolif Without Macular Edema 05/24/2018 - 12:00AM Brandon Chirinos DO Active Cataract Senile Posterior Subcapsular Polar 05/24/2018 - 12: 00AM 09/26/2020 - 9:30AM Brandon Chirinos DO Resolved Diabetes Mellitus Type 1 Without Complication 07/28/2017 - 12:00 AM Brandon Chirinos DO Inactive Diabetes Mellitus Type 2 Without Complication 12/17/2016 - 12:00 AM Brandon Cihrinos DO Inactive History of Nicotine Dependence 12/17/2016 - 12:00AM Oli tthew Taran DO Active Essential Hypertension 12/17/2016 - 12:00AM Brandon Rudy hare DO Active Retinopathy Hypertensive 12/17/2016 - 12:00AM Brandon Taran DO Active Keratoconjunctivitis 12/17/2016 - 12:00AM Brandon Jennifer braga DO Active Taking Medication For Diabetes Long-term Use of Insulin 12/18/19 17 - 12:00AM Brandon Taran DO Inactive Borderline Glaucoma Ocular Hypertension 12/17/2016 - 12:00AM Brandon Taran DO Active Dry Eye Syndrome 12/17/2016 - 12:00AM Brandon Marco A zuniga DO Active Plan of Treatment Future Appointments Date Time Location Provider 3 - 4 WK Post CAT SX 10/31/2020 1:10PM Ben Otto MD [facility] Brandon Chirinos DO Assessments Includes: Assessments for all patient encounters Findings Encounter Date Cystoid macular edema 1 Week Post OP with Brandon Chirinos DO 10/03/2020 Pseudophakia 1 Week Post OP with Brandon Chirinos DO 10/03/2020 Cystoid macular edema 1 Day Post OP with Brandon Chirinos D O 09/26/2020 Posterior capsule opacification of eccentric capsule i n the right eye 1 Day Post OP with Brandon Chirinos DO 09/26/2020 Pseudophakia 1 Day Post OP with Brandon Chirinos DO 09/26/2020 Posterior subcapsular polar senile cataract POST OP SIT WITH PRE-OP with Brandon Chirinos DO 09/04/2020 Pseudophakia POST OP VISIT WITH PRE-OP with Brandon will DO 09/04/2020 Posterior subcapsular polar senile cataract 1 WK PREOP FOR SURGERY with Brandon Chirinos DO 08/22/2020 Dry eye syndrome Insertion of Punctal Plug IN OFFICE-NEED AUTH with Brandon Chirinos DO 07/09/2020 Posterior subcapsular polar senile cataract Insertion of Punctal Plug IN OFFICE-NEED AUTH with Brandon Chirinos DO 07/09/2020 Borderline glaucoma ocular hypertension 6 Month Follow -Up with Brandon Chirinos DO 06/27/2020 Keratoconjunctivitis 6 Month Follow-Up with Brandon zuniga DO 06/27/2020 Long-term use of insulin 6 Month Follow-Up with Brandon braga DO 06/27/2020 Posterior subcapsular polar senile cataract 6 Month Fo llow-Up with Brandonjody Chirinos DO 06/27/2020 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 without macular edema 6 Month Follow-Up with Brandon Taran DO 06/27/2020 Dry eye syndrome TRIAGE NON URGENT with Brandonjody Chirinos DO 04/21/2020 Keratoconjunctivitis TRIAGE NON URGENT with Brandon Rodriguezligia n DO 04/21/2020 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 without macular edema TRIAGE NON URGENT with Brandonjody Chirinos DO 04/21/2020 Bilateral myopia Insertion of Punctal Plug IN OFFICE-NEED AUTH with Brandon Chirinos DO 12/11/2019 Borderline glaucoma ocular hypertension Insertion of P unctal Plug IN OFFICE- NEED AUTH with Brandonjody Chirinos DO 12/11/2019 Dry eye syndrome Insertion of Punctal Plug IN OFFICE-NEED AUTH with Brandon Chirinos DO 12/11/2019 Borderline glaucoma ocular hypertension TRIAGE NON URG ENT with Brandonjody Chirinos DO 10/24/2019 Dry eye syndrome TRIAGE NON URGENT with Brandonjody Chirinos DO 10/24/2019 Keratoconjunctivitis TRIAGE NON URGENT with Brandon Rodriguezjennifer n DO 10/24/2019 Squamous blepharitis right upper eyelid , right lower eyelid, left upper eyelid and left lower eyelid TRIAGE NON URGENT with Brandonjody Chirinos DO 10/24/2019 Dry eye syndrome Insertion of Punctal Plug IN OFFICE-NEED AUTH with Brandon Chirinos DO 08/10/2019 Borderline glaucoma ocular hypertension 5 Month Follow -Up with Brandon Taran DO 07/31/2019 Dry eye syndrome 5 Month Follow-Up with Brandon Taran DO 07/31/2019 Hypertensive retinopathy 5 Month Follow-Up with Brandon Rodriguez braga DO 07/31/2019 Posterior subcapsular polar senile cataract 5 Month Fo llow-Up with Brandon Rodriguezstein DO 07/31/2019 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 without macular edema 5 Month Follow-Up with Brandon Taran DO 07/31/2019 Dry eye syndrome Insertion of Punctal Plug IN OFFICE-NEED AUTH with Brandon Chirinos DO 02/14/2019 Acute atopic conjunctivitis 7 Month Follow-Up with Brandon [facility] DO 12/19/2018 Borderline glaucoma ocular hypertension 7 Month Follow -Up with Brandonjody Chirinos DO 12/19/2018 Dry eye syndrome 7 Month Follow-Up with Brandon Taran DO 12/19/2018 Posterior subcapsular polar senile cataract 7 Month Fo llow-Up with Brandon Taran DO 12/19/2018 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 without macular edema 7 Month Follow-Up with Brandon Taran DO 12/19/2018 Dry eye syndrome Insertion of Punctal Plug IN OFFICE-NEED AUTH with Brandon Taran DO 05/29/2018 Borderline glaucoma ocular hypertension in both eyes 1 0 Month Follow-Up with Brandon Taran DO 05/24/2018 Posterior subcapsular polar senile cataract 10 Month F ollow-Up with Brandon Taran DO 05/24/2018 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 without macular edema 10 Month Follow-Up with Brandon Taran DO 8 Assessment of long-term use of insulin 6 Month Follow- Up with Brandon Taran DO 07/27/2017 Borderline glaucoma ocular hypertension 6 Month Follow -Up with Brandon Taran DO 07/27/2017 Dry eye syndrome 6 Month Follow-Up with Brandon Taran DO 07/27/2017 Type 1 diabetes mellitus without complication 6 Month Follow-Up with Brandon Taran DO 07/27/2017 Borderline glaucoma ocular hypertension TESTING VF 24- 2 & OCT DISC with Brandon Taran DO 04/11/2017 Borderline glaucoma ocular hypertension in both eyes T RIAGE NON URGENT with Brandon Taran DO 04/11/2017 Chronic allergic conjunctivitis TRIAGE NON URGENT with Matth jody Taran DO 04/11/2017 Dry eye syndrome of both eyes TRIAGE NON URGENT with Brandon Taran DO 04/11/2017 Borderline glaucoma ocular hypertension in both eyes 6 Week Follow-Up with Brandon Taran DO 02/02/2017 Dry eye syndrome of both eyes 6 Week Follow-Up with Brandon Taran DO 02/02/2017 Borderline glaucoma ocular hypertension NEW PATIENT WI TH REFERRAL with Brandon Chirinos DO 12/17/2016 Dry eye syndrome NEW PATIENT WITH REFERRAL with Brandon neumannvirtua marlton DO 12/17/2016 Essential hypertension NEW PATIENT WITH REFERRAL with Olena Chirinos DO 12/17/2016 History of nicotine dependence NEW PATIENT WITH REFERR AL with Brandon Chirinos DO 12/17/2016 Hypertensive retinopathy NEW PATIENT WITH REFERRAL with Deric Chirinos DO 12/17/2016 Keratoconjunctivitis NEW PATIENT WITH REFERRAL with Brandon Chirinos DO 12/17/2016 Long-term use of insulin NEW PATIENT WITH REFERRAL with Deric Chirinos DO 12/17/2016 Posterior subcapsular polar senile cataract NEW PATIEN T WITH REFERRAL with Brandon Chirinos DO 12/17/2016 Type 2 diabetes mellitus without complication [facility] WITH REFERRAL with Brandon Chirinos DO 12/17/2016 Instructions Instructions not supported for this document typeNo Instructions Recorded Medical Equipment - Implanted Devices Includes: Current and historical DevicesNo Medical Equipment Recorded Medications Includes: Current and historical Medications Current Medications (continue as prescribed) Pred Forte 1% Ophthalmic Suspension 10/06/2020 Prov ider: Brandon Chirinos DO Diagnosis: Cystoid macular jocelyn a following cataract surgery, right eye one drop five times a day in the right eye Ketorolac Tromethamine 0.5% Ophthalmic Solution 10/06/2020 Provider: Brandon Chirinos DO Diagnosis: Cystoid macular jocelyn a following cataract surgery, right eye one drop four times a day in the right eye Inveltys 1% Ophthalmic Suspension 08/22/2020 Provid er: Brandon Chirinos DO Diagnosis: Posterior subcapsula r polar age-related cataract, right eye Day of surgery remove patch start one dr op two times a day in the right eye, RUN CARD BromSite 0.075% Ophthalmic Solution 08/22/2020 Prov ider: Brandon Chirinos DO Diagnosis: Posterior subcapsula r polar age-related cataract, right eye Three days prior to surgery start one dr op two times a day in the right eye, RUN CARD Moxifloxacin HCl 0.5% Ophthalmic Solution 08/22/2020 Provider: Brandon Chirinos DO Diagnosis: Posterior subcapsula r polar age-related cataract, right eye Three days prior to surgery start one drop four times a day in the right eye Restasis 0.05% Ophthalmic Emulsion 12/11/2019 Provi tammi: Brandon Chirinos DO Diagnosis: Dry eye syndrome of bilateral lacrimal glands One drop twice a day in both eyes Benazepril HCl 10 MG Oral Tablet 07/31/2019 Provide r: Diagnosis: Humalog 200ML Subcutaneous Solution 12/19/2018 Prov ider: Diagnosis: Eliquis 5MG Oral Tablet 05/24/2018 Provider: Diagnosis: Symbicort 80-4.5MCG/ACT Inhalation Aerosol 12/17/2016 Provider: Diagnosis: Cetirizine HCl 10MG Oral Tablet 12/17/2016 Provider : Diagnosis: Bentyl 10MG Oral Capsule 12/17/2016 Provider: Diagnosis: Singulair 10MG Oral Tablet 12/17/2016 Provider: Diagnosis: Pramipexole Dihydrochloride 1MG Oral Tablet 12/17/2016 Provider: Diagnosis: Acidophilus Probiotic Oral Tablet 12/17/2016 Provid er: Diagnosis: Hydrocodone-Acetaminophen 10-325MG Oral Tablet 12/17/2016 Provider: Diagnosis: Trazadone 100MG Oral Tablet 12/17/2016 Provider: Diagnosis: Furosemide 40MG Oral Tablet 12/17/2016 Provider: Diagnosis: Lunesta 3MG Oral Tablet 12/17/2016 Provider: Diagnosis: Trujeo 125 units Intramuscular Jet-injector 12/17/2016 Provider: Diagnosis: Lyrica 300MG Oral Capsule 12/17/2016 Provider: Diagnosis: Cymbalta 60MG Oral Capsule Delayed Release Particles 017 Provider: Diagnosis: seroquel 600 mg Oral Tablet 12/17/2016 Provider: Diagnosis: Xopenex 1.25 mg Inhalation Inhaler 12/17/2016 Provi tammi: Diagnosis: every 6 hours EpiPen 2-Thomas 0.3MG/0.3ML Injection Solution Auto-injector Provider: Diagnosis: Nystatin [id number] External Powder 12/17/2016 P rovider: Diagnosis: Past Medications on file Ketorolac Tromethamine 0.5% Ophthalmic Solution 09/26/2020 - 10/06/2020 Provider: Brandon Chirinos DO Diagnosis: Cystoid macular jocelyn a following cataract surgery, right eye one drop four times a day in the right eye Pred Forte 1% Ophthalmic Suspension 09/26/2020 - 10/06/2020 Provider: Brandon Chirinos DO Diagnosis: Cystoid macular jocelyn a following cataract surgery, right eye one drop four times a day in the right eye Lotemax 0.5% Ophthalmic Suspension 06/27/2020 - 07/09/2020 P rovider: Brandon Chirinos DO Diagnosis: Keratoconjunct sicca , not specified as Sjogren's, bilateral One drop three times a day in both eyes Lotemax 0.5% Ophthalmic Gel 07/31/2019 - 12/11/2019 Provider : Brandon Chirinos DO Diagnosis: One drop three times a day in both eyes Lotemax 0.5% Ophthalmic Gel 12/19/2018 - 12/11/2019 Provider : Brandon Chirinos DO Diagnosis: Acute atopic conjunc tivitis, bilateral One drop three times a day in both eyes Ofloxacin 0.3% Ophthalmic Solution 05/29/2018 - 10/24/2019 P rovider: Brandon Chirinos DO Diagnosis: Dry eye syndrome of bilateral lacrimal glands one drop four times a day in the right eye for 5 days Restasis 0.05% Ophthalmic Emulsion 07/27/2017 - 07/22/2018 P rovider: Brandon Chirinos DO Diagnosis: Dry eye syndrome of bilateral lacrimal glands One drop twice a day in both eyes Lotemax 0.5% Ophthalmic Gel 04/13/2017 - 05/04/2017 Provider : Brandon Chirinos DO Diagnosis: Other chronic allerg ic conjunctivitis One drop three times a day in both eyes PriLOSEC 20MG Oral Capsule Delayed Release 12/17/2016 - 02/2019 Provider: Diagnosis: Benazepril HCl 40MG Oral Tablet 12/17/2016 - 07/31/2019 Prov ider: Diagnosis: HumaLOG 100UNIT/ML Subcutaneous Solution Cartridge - 12/19/2018 Provider: Diagnosis: 200 sliding scale Depakene 250MG/5ML Oral Syrup 12/17/2016 - 12/19/2018 Provid er: Diagnosis: Spironolactone 25MG Oral Tablet 12/17/2016 - 12/19/2018 Prov ider: Diagnosis: Coumadin 1MG Oral Tablet 12/17/2016 - 12/19/2018 Provider: Diagnosis: Xanax 1MG Oral Tablet 12/17/2016 - 12/19/2018 Provider: Diagnosis: Loperamide A-D 2MG Oral Tablet 12/17/2016 - 12/19/2018 Provi tammi: Diagnosis: Reglan 5MG Oral Tablet 12/17/2016 - 12/19/2018 Provider: Diagnosis: Xiidra 5% Ophthalmic Solution 12/17/2016 - 07/15/2017 Provid er: Brandon Chirinos DO Diagnosis: Keratoconjunct sicca , not specified as Sjogren's, bilateral One drop twice a day in both eyes Medications Administered Includes: Administered Medications in patient's chartNo Administered Medications Recorded Vital Signs Includes: Vital Signs from 10/13/2019 through 10/13/2020No Vital Signs Recorded For Specified Dates Results Includes: Results from 10/13/2019 through 10/13/2020No Results Recorded For Specified Dates History of Present Illness History of Present Illness not supported for this document typeNo History of Present Illness Recorded Social History Description Last Updated Tobacco non-user 10/13/2020 No consumption of alcohol 10/03/2020 No tobacco use 10/03/2020 Not using drugs 10/03/2020 Smoking status : Former smoker 10/03/2020 Previous smoking history 10/24/2019 Procedures and Surgical History Includes: Procedures from 10/13/2019 through 10/13/2020 Procedures Code Diagnosis Performing Provider Service Location Service Date Extracapsular cataract removal with intr aocular lens implant (Left side, Related procedure/service by same physician during Post Op) 33358 Ag e-related nuclear cataract, left eye Brandon Chirinos DO [facility] 09/25/2020 Ophthalmic biometry - IOL Master with IO L calculation (Professional Comp., Left side) 85068 Posterior subcapsular polar age-related cataract, left eye Brandon Cullen MD [facility] 09/04/2020 Extracapsular cataract removal with intraocular lens implant (Right Side) 22285 Age-related nuclear cataract, right eye Brandon Chirinos DO [facility] 08/28/2020 Ophthalmic biometry - IOL Master with IOL calculation (Right Side) 47814 Posterior subcapsular polar age-related cataract, right eye Brandon Cullen MD [facility] 08/22/2020 Intermediate Eye Exam Established Patient (Signi/Sep Eval. & Man.) 68388 Posterior subcapsular polar age-related cataract, right eye Brandon Cullen MD [facility] 08/22/2020 Insertion of Punctum Plug (Bilateral Procedure) 98022 Dry eye syndrome of bilateral lacrimal glands Brandon Cullen MD [facility] 07/09/2020 Comprehensive eye exam established patient 80806 Type 1 diab with mod nonp rtnop without macular edema, bi, care home (current) use of insulin, Ocular hypertension, bilateral, Keratoconjunct sicca, not specified as Sjogren's, bilateral Brandon Cullen MD [facility] 06/27/2020 Comprehensive eye exam established patient (Signi/Sep Eval. & Man.) 69407 Type 1 diab with mod nonp rtnop without macular edema, bi, Keratoconjunct sicca, not specified as Sjogren's, bilateral, Dry eye syndrome of bilateral lacrimal glands Brandon Cullen MD [facility] 04/21/2020 [facility], with interpretation and report 96744 Type 1 diab with mod nonp rtnop without macular edema, bi Brandon Cullen MD [facility] 04/21/2020 Refraction 00558 Myopia, bilateral Brandon Conley MD [facility] 12/11/2019 Insertion of Punctum Plug (Bilateral Procedure) 71024 Dry eye syndrome of bilateral lacrimal glands Brandon Cullen MD [facility] 12/11/2019 Insertion of Punctum Plug (LEFT LOWER LID) 97929 Dry eye syndrome of bilateral lacrimal glands Brandon Cullen MD [facility] 10/24/2019 Intermediate Eye Exam Established Patient (Signi/Sep Eval. & Man.) 42534 Ocular hypertension, bilateral, Squamous blepharitis right upper eyelid, Squamous blepharitis right lower eyelid, Squamous blepharitis left upper eyelid Brandon Cullen MD [facility] 10/24/2019 Surgical History Last Updated History of extracapsular cataract extrac tion PCIOL OD by Dr. Chirinos 08/28/2020 ~PCIOL OS by Dr. Chirinos 09/25/2020 09/26/2020 Surgical / procedural history Cholecyst ectomy 1995, Hysterectomy 2000, Bilateral TMJ Arthroscopy 2003, lump removed from right breast 2003, skin lesion removed 2004, multiple abdominal laparoscopic, venous keerthi cath left chest 2x, PICC line left and right upper arm 3x, excision and drainage abscess wounds 4x, Appendectomy 2008, 5th metatarsal removal, right small, toe amputation. Angioplasty 04/0310/24/2019 Medical History Includes: Medical History in patient's chart Description Last Updated History of diabetes mellitus Type 1: Dx: 1996 A1C: 10 10/13/2020 Reported medical history Bipolar, OCD, Anxiety, Fibromyalgia, Bilateral TMJ, Psoriasis, Spinal Bifida, Common Immune Deficiency, Insomnia, Temporal Lobe Seizure, GERD, Cellulitis, CDIF, Renal Failure, ABD Adhesions, Endometriosis, Degenerative Disc Disease, Migraines, Insomnia, Bulging Disc Lumber, 2 blood clots in left upper arm 10/13/2020 No recent change in medical history 10/03/2020 History of the retina was abnormal 06/27/2020 0 Currently wearing eyeglasses 10/24/2019 History of arthritis 10/24/2019 History of asthma 10/24/2019 History of hypertension 10/24/2019 Family History Includes: Family History in patient's chart Description Last Updated Fraternal history of arthritis 10/03/2020 Fraternal history of diabetes mellitus 10/03/2020 Fraternal history of hypertension 10/03/2020 Fraternal history of macular degeneration 10/03/2020 Maternal history of arthritis 10/03/2020 Maternal history of cataract 10/03/2020 Maternal history of diabetes mellitus 10/03/2020 Maternal history of glaucoma 10/03/2020 Maternal history of hypertension 10/03/2020 Maternal history of stroke/cerebrovascular accident Maternal history of thyroid disorder 10/03/2020 Paternal history of arthritis 10/03/2020 Paternal history of cataract 10/03/2020 Paternal history of diabetes mellitus 10/03/2020 Paternal history of family history of cancer 0 Paternal history of glaucoma 10/03/2020 Paternal history of heart disease 10/03/2020 Paternal history of hypertension 10/03/2020 Sororal history of arthritis 10/03/2020 Sororal history of heart disease 10/03/2020 Sororal history of hypertension 10/03/2020 Review of Systems Review of Systems not supported for this document typeNo Review of Systems Recorded Mental Status Mental Status not supported for this document typeNo Mental Status Recorded Functional Status Functional Status not supported for this document typeNo Functional Status Recorded Physical Exam Physical Exam not supported for this document typeNo Physical Exam Recorded Immunizations Includes: Immunizations in patient's chartNo Immunizations Recorded Allergies Includes: Active, inactive, and resolved Allergies Substance Type Reaction Onset Date - Time Resolved Date - Ti me Status Tricor Allergy 12/17/2016 - 12:00AM Acti ve Sulfa Antibiotics Allergy 12/17/2016 - 12:00AM Active Penicillin G Benzathine Allergy 12/17/2016 - 12:00AM Active Latex Allergy 12/17/2016 - 12:00AM Acti ve Glucophage Allergy 12/17/2016 - 12:00AM Acti ve Encounters Includes: Encounters from 10/13/2019 through 10/13/2020 Encounter Provider Location Date Check-In Time Check-Out Time D iagnosis Rx Refills/Changes Brandon Chirinos DO 10/06/2020 020 1:44PM 10/03/2020 11:59PM 1 Week Post OP Brandon Cullen MD [facility] 10/03/20 20 12:57PM 1:39PM Cystoid Macular Edema, Pseudophakia 1 Day Post OP Brandon Cullen MD [facility] 0 8:33AM 10:00AM Pseudophakia, Posterior Capsule Opacific ation Eccentric Capsule Right Eye, Cystoid Macular Edema SAME DAY POST OP Brandon Chirinos [facility] 09/1609/04/2020 4:40PM 7:05AM Extracapsular cataract removal w/IOL implant Brandon Monterroso in [facility] 09/25/2020 09/04/2020 6:50AM 7:07AM POST OP VISIT WITH PRE-OP Brandon Cullen MD [facility] 09/04/2020 1:46PM 2:33PM Pseudophakia, Catara ct Senile Posterior Subcapsular Polar SAME DAY POST OP Brandon Chirinos [facility] 08/17 7:33AM 7:33AM Extracapsular cataract removal w/IOL implant Brandon Monterroso in [facility] 08/28/2020 7:03AM 7:03AM 1 WK PREOP FOR SURGERY Brandon Cullen [facility] 08/22/2020 12:36PM 1:44PM Cataract Senile Posterior Pinon bcapsular Polar Insertion of Punctal Plug IN OFFICE-NEED AUTH Brandon Cullen MD [facility] 07/09/2020 9:40AM 11:02AM Cataract Marissa le Posterior Subcapsular Polar, Dry Eye Syndrome 6 Month Follow-Up Brandon Cullen MD [facility] 08/2020 1:18PM 2:23PM Type 1 Diab W/ Diab Retinopa thy Mod Nonprolif Without Macular Edema, Borderline Glaucoma Ocular Hypertension, Cataract Senile Posterior Subcapsular Polar, Taking Medication For Diabetes Long-term Use of Insulin, Keratoconjunctivitis 10 - 14 Day Follow-Up Brandon Cullen MD [facility] 05/01/2020 04/21/2020 9:40AM 04/21/2020 11:59PM TRIAGE NON URGENT Brandon Cullen MD [facility] 03/2020 2:19PM 3:19PM Type 1 Diab W/ Diab Retinopa thy Mod Nonprolif Without Macular Edema, Dry Eye Syndrome, Keratoconjunctivitis Insertion of Punctal Plug IN OFFICE-NEED AUTH Brandon Cullen MD [facility] 12/11/2019 12:52PM 1:56PM Dry Eye Syndr ome, Borderline Glaucoma Ocular Hypertension, Refractive Error - Myopia Bilateral TRIAGE NON URGENT Brandon Cullen MD [facility] 05/2020 8:29AM 9:05AM Borderline Glaucoma Ocular H ypertension, Dry Eye Syndrome, Blepharitis Squamous, Keratoconjunctivitis Insurance Includes: Active Insurance Policies Plan Name Member ID Group # Subscriber Relationship Effective Da kassi 1 - [employer] /PRIOR [employer] NEEDED [id number] Frank Jayden ng Advance Directives Includes: Current Advance DirectivesNo Advance Directives Recorded Health Concerns Includes: Active Health ConcernsNo Active Health Concerns Recorded Goals Includes: Active GoalsNo Active Goals Recorded Interventions Includes: Interventions for active GoalsNo Interventions Recorded Evaluations & Outcomes Includes: Evaluations & Outcomes for active GoalsNo Outcomes Recorded
--- OUTSIDE RECORDS SUMMARY | 2020-11-17 18:46 | CCD ---
Author Author [facility] Organization 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 Active 839160307 Problem MRSA (methicillin resistant Staphylococcus aureus) carrier Z22.322 Active 211269030 Problem CKD stage 3 due to type 2 diabetes mellitus E11.22 Active 163738624443 Problem Primary insomnia F51.01 Active 4042450 Problem Cigarette nicotine dependence with other nicotin e-induced disorder F17.218 Active 99320935085432858 Problem Recurrent deep venous thrombosis I82.409 Active 133189468 Problem Intervertebral disc disorders with radiculopathy , lumbosacral region M51.17 Active 41891496177623946 Problem Essential hypertension I10 Active 71556099 Problem Lesion of ulnar nerve, left upper limb G56.22 Active 328208035399790 Problem Restless leg syndrome G25.81 Active 87709591 Problem Type 2 diabetes mellitus with foot ulcer E11.621 Active 958638927 Problem Nocturnal leg cramps G47.62 Active 038147381 Problem Other chronic pain G89.29 Active 68485648 Problem Gastroparesis K31.84 Active 909410497 Problem Lesion of ulnar nerve, right upper limb G56.21 Active 859604529774395 Problem Pulmonary emphysema, unspecified emphysema type J4 3.9 Active 00946824 Problem Age-related nuclear cataract, left eye H25.12 Active 792353834344296 Problem Type 2 diabetes mellitus with other circulatory compli cations E11.59 Active 21209128 Problem Status post below-knee amputation of left lower extremity Z89.512 Active 315935672089476 Problem Seasonal allergic rhinitis due to pollen J30.1 Active 56987186 Problem Cigarette 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.211 Active 115140547 Problem Mixed hyperlipidemia E78.2 Active 330346893 Problem Age-related nuclear cataract, right eye H25.11 Active 539045646513768 Problem Panic disorder F41.0 Active 698602760 Problem 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 A ctive 059795777 Problem 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.4 Activ e 675630460 Problem Factor V Leiden D68.51 Active 448727255 Problem GERD (gastroesophageal reflux disease) K21.9 A ctive 421482951 Problem Sebaceous cyst of skin of left breast N60.82 Ac tive 88707177 Problem Anticoagulant long-term use Z79.01 Active 7111 72157 Problem Bipolar disorder, current episode manic w/o psyc hotic features, mild F31.11 Active 282582746 Problem Below knee amputation S88.119A Active 354213927 Problem History of factor V Leiden mutation Z86.2 Acti ve 848788977 ALLERGIES Allergen (clinical drug ingredient) Drug/Non Drug Allergy do cumented on EMR Reaction Allergy Type Onset Date Status Sulfa (for allergy use only) Hives Drug Allergy Active Penicillin (For Allergies Use Only) Anaphylaxis Drug Aller gy Active simvastatin Zocor([facility] Code:[address]-99) Hives Drug Allergy Active Glucophage Hives Drug Allergy Active cephalexin Keflex([facility] Code:[address]-30) hives Drug Allergy Active Latex (for allergy use only) Anaphylaxis Drug Allergy Active atorvastatin Lipitor([facility] Code:[address]-11) Hives Drug Allergy Active Fresh Pineapple swollen lips/ sores in mouth Non Drug Josué rgy Active fenofibrate Tricor([facility] Code:[address]-68) Hives Drug Allergy Active ENCOUNTERS from 1969 to 2020-10-01 Encounter Location Date Provider Diagnosis [facility] [address] [place] [address] Sep Yung Reis Type 2 diabetes mellitus with foot ulcer E11.621 and Non-pressure chronic ulcer of right heel and midfoot with fat layer exposed L97.412 IMMUNIZATIONS Vaccine Route Administration Date Status Influenza [...] Education Language: Question Answer Notes Languages spoken: Afghan Tenriism: Question Answer Notes Tenriism 33 None Sexual Hx: Question Answer Notes [...] No Information VITAL SIGNS Weight 263 lbs Sep, Weight-kg per pt kg Sep, Height 70 in Sep, BMI 37.73 kg/m2 Sep, Heart Rate 83 /min Sep, Respiratory Rate 19 /min Sep, Temperature 96.5 degrees Fahrenheit Sep, Oximetry 98% Sep, Blood pressure systolic 128 mm Hg Sep, Blood pressure diastolic 77 mm Hg Sep, MEDICATIONS Medication SIG (Take, Route, Frequency, Duration) [...] Ophthalmic three times a day Active Pen [place] 316" 31G X 5 MM as directed 5 [...] Inhalation Twice a day May, Active Cholecalciferol 43623 UNIT 1 capsule Orally once a week [...] four times daily prn Active Nystatin Powder 175235 UNIT powder Externally to bilat eral berast and abd pannus daily as needed daily for 30 days Active Wheelchair - as directed Dx Z89.51, M54.41 Jan, Active PROCEDURES from 1969 to 2020-10-01 Procedure Date Ordered Result Body Site LIDOCAINE 4% CREAM TOPICAL 2020-09-22 N/A RESULTS No Results REASON FOR VISIT RLE Wounds MEDICAL (GENERAL) HISTORY Type Description Date Medical [...] intervention Medical History Hx urinary retention - [facility] Urology Medical History Hx Wynn's Palsy [...] Notes Treatment Notes Treatm ent Clinical Notes Sep, Type 2 diabetes mellitus with foot ulcer (ICD-10 - E11.621) Sep, 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 (ICD-10 - L97.412) PLAN OF TREATMENT Next Appt Details prn Reason: Provider Name:Randolph Villarreal, 2020-10-24 01:45:00 PM, [address] [place], [address], Provider Name:Tiffany Hogue, 06-11-14 01:30:00 PM, [address] [place] [address], [id number], Provider Name:Mireille Quijano, 2020-11-18 07:30:00 AM, [address] [place] [address], [id number], Provider Name:Tiffany Hogue, 06-06-27 01:00:00 PM, [address] [place] [address], [id number], Insurance Providers Payer Name Payer Address Payer Phone Insured Name Patient Relati onship to Insured Coverage Start Date Coverage End Date [facility] [id number] [facility] [id number] JOSS FORD 2014
--- OUTSIDE RECORDS SUMMARY | 2020-11-17 18:47 | CCD ---
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 Active 023347656 Problem MRSA (methicillin resistant Staphylococcus aureus) carrier Z22.322 Active 450084434 Problem CKD stage 3 due to type 2 diabetes mellitus E11.22 Active 843877294477 Problem Primary insomnia F51.01 Active 8062705 Problem Cigarette nicotine dependence with other nicotin e-induced disorder F17.218 Active 15218863119149826 Problem Recurrent deep venous thrombosis I82.409 Active 421570724 Problem Intervertebral disc disorders with radiculopathy , lumbosacral region M51.17 Active 12641197316786617 Problem Essential hypertension I10 Active 22084927 Problem Lesion of ulnar nerve, left upper limb G56.22 Active 151268365816363 Problem Restless leg syndrome G25.81 Active 35084989 Problem Type 2 diabetes mellitus with foot ulcer E11.621 Active 820199271 Problem Nocturnal leg cramps G47.62 Active 086036849 Problem Other chronic pain G89.29 Active 74858112 Problem Gastroparesis K31.84 Active 556075292 Problem Lesion of ulnar nerve, right upper limb G56.21 Active 036725585472355 Problem Pulmonary emphysema, unspecified emphysema type J4 3.9 Active 00347671 Problem Age-related nuclear cataract, left eye H25.12 Active 958545352490629 Problem Type 2 diabetes mellitus with other circulatory compli cations E11.59 Active 43018468 Problem Status post below-knee amputation of left lower extremity Z89.512 Active 111420765708154 Problem Seasonal allergic rhinitis due to pollen J30.1 Active 20992926 Problem Cigarette 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.211 Active 150973612 Problem Mixed hyperlipidemia E78.2 Active 997472014 Problem Age-related nuclear cataract, right eye H25.11 Active 415221649285861 Problem Panic disorder F41.0 Active 071283253 Problem 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 Active 60653165 Problem History of MRSA infection Z86.14 Active 454054 000 Problem Carpal tunnel syndrome of right wrist G56.01 Ac tive 469620300753073 Problem emt intermediate current use of anticoagulant Z79.01 A ctive 310874070 Problem FCI (current) use of insulin Z79.4 Activ e 795560275 Problem Factor V Leiden D68.51 Active 310012934 Problem GERD (gastroesophageal reflux disease) K21.9 A ctive 206982681 Problem Sebaceous cyst of skin of left breast N60.82 Ac tive 47245424 Problem Anticoagulant long-term use Z79.01 Active 7111 29588 Problem Bipolar disorder, current episode manic w/o psyc hotic features, mild F31.11 Active 943735218 Problem Below knee amputation S88.119A Active 395174302 Problem History of factor V Leiden mutation Z86.2 Acti ve 323215954 ALLERGIES Allergen (clinical drug ingredient) Drug/Non Drug Allergy do cumented on EMR Reaction Allergy Type Onset Date Status Sulfa (for allergy use only) Hives Drug Allergy Active Penicillin (For Allergies Use Only) Anaphylaxis Drug Aller gy Active simvastatin Zocor([facility] [place] Code:[address]-96) Hives Drug Allergy Active Glucophage Hives Drug Allergy Active cephalexin Keflex([facility] [place] Code:[address]-46) hives Drug Allergy Active Latex (for allergy use only) Anaphylaxis Drug Allergy Active atorvastatin Lipitor([facility] [place] Code:[address]-06) Hives Drug Allergy Active Fresh Pineapple swollen lips/ sores in mouth Non Drug Josué rgy Active fenofibrate Tricor([facility] [place] Code:[address]-16) Hives Drug Allergy Active ENCOUNTERS from 1969 to 2020-09-20 Encounter Location Date Provider Diagnosis [facility] [address] [place] [address] May, Tfifany Dombrowska Breast mass, right N63.10 ; Palpable lym ph node R59.9 ; Left breast mass N63.20 ; Nipple discharge N64.52 ; Skin lesion L98.9 ; Large breasts N62 ; Breast pain, right N64.4 ; Anticoagulant long-term use Z79.01 ; Family history of cancer Z80.9 and Chronic kidney disease, unspecified CKD stage N18.9 IMMUNIZATIONS Vaccine Route Administration Date Status Influenza [...] Education Language: Question Answer Notes Languages spoken: Irish Restorationist: Question Answer Notes Restorationist 33 None Sexual Hx: Question Answer Notes [...] Notes Start Da te End Date Status Lyrica 300 MG 1 capsule Orally Twice a day (pain clinic) Active Tamsulosin HCl 0.4 MG Orally Daily HS Active Eliquis 5 MG 1 tablet Orally BID Act gonzales BD Pen Mini - as directed E11.9 qid for 30 day(s) May, Active Bactroban 2% as directed applied topically twice a day Jul, Active Xopenex 1.25 MG/3ML 3 ml Inhalation Every 6 hours as needed Active Wheelchair - as directed Dx Z89.51, M54.41 Jan, Active Singulair 10 MG 1 tablet Orally Once a day Active TraZODone HCl 100 MG 2 tablets orally Once a day at hs Active Cetirizine HCl 10 MG 1 tablet Orally Once a day Jan, 15 Active Hibiclens 4 % as directed Externally twice a day Jul, 019 Active Zofran 8 MG 1 tab PRN nausea Orally every 12 hours Jun, Active Misc. Devices - as directed Repair and repla ce prosthetic and liners as needed; Dx Z89.51 Jan, Active Probiotic - Orally Active Dexilant 60 MG 1 capsule Orally Once a day May, Active Cholecalciferol 86527 UNIT 1 capsule Orally once a week on d ay Jun, Active Cyclobenzaprine HCl 10 MG 1 tab Orally Three times a day prn mus telly spasms May, Active Collagen Ultra - 1 cap Orally Daily May, Active May Use - wheel chair dx code Z89.512 _ for 99 months Jan, Active Ropinirole HCl 2 MG 1 tablet at 8 pm and at midnight Orally BID May, Active Nystatin Powder 419844 UNIT powder Externally to bilat eral berast and abd pannus daily as needed daily for 30 days Active Refresh 1 % 1 drop into affected eye as needed Ophth almic four times daily prn Active Clobetasol Propionate 0.05 % 1 application to affected area Externally twice a day to scalp Jul, Active Tresiba 200 U/mL 300 units subcutaneously daily Active Hydrocodone-Acetaminophen 10-325 MG 1 tablet as needed Orally every 4 hrs Active Ketoconazole 2 % 5 applications to scalp Exte rnally Once a day and let sit for 5 minutes Jul, Active Restasis 0.05 % 1 drop into affected eye Ophthalmic three times a day Active Wheelchair - as directed Power wheelchair; Dx M54.41, G56.21, Z89.512, M62.81 Apr, Active Symbicort 80-4.5 MCG/ACT 2 puffs Inhalation Twice a day May, Active Valacyclovir HCl 1 GM 1 tablet Orally every 24 hrs as needed Active Magnesium Chloride 64 MG 1 tablet Orally Daily May, 9 Active Rosuvastatin Calcium 10 MG 1 tablet Orally Once a day 14 2017 Active FreeStyle Dwight 14 Day Sensor - as directed Dx E11.9 2019 Active ProAir HFA 108 (90 Base) MCG/ACT 2 puffs as needed Inhalation ev agustina 6 hrs May, Active Humalog KwikPen 200 UNIT/ML as directed Subcutaneous T ID per sliding scale; max daily #40 units Active Pen [place] 316" 31G X 5 MM as directed 5 times daily Aug, Active Methylphenidate HCl ER (LA) 20 MG 1 capsule in the morning Orall y Once a day Jun, Active EpiPen 0.3 MG/0.3ML 1 injection Injection As nee ded for allergic reaction for 30 day(s) Active Betamethasone Valerate 0.1 % 1 application to affected area Externally Once a day Jan, Active Cymbalta 60 MG 2 capsuleS Orally daily May, Active Torsemide 20 MG 2 tab Orally Daily A ctive PROCEDURES No Information RESULTS No Results REASON [...] intervention Medical History Hx urinary retention - [facility] Urology Medical History Hx Wynn's Palsy [...] Notes Treatment Notes Treatm ent Clinical Notes May, Breast mass, right (ICD-10 - N63.10) I am waiting for the report of diagnostic mammogram and US which were done on 06/03/20 and unfortunately are not available to me at the time of visit. Per my limited sono of the palpable area, the lump which patient feels at 10:00 7CFN corresponds with superficial fat lobule. Additional recs will follow. If imaging is normal, clinical monitoring of the area will be recommended. Biopsy also can be considered. May, Palpable lymph node (ICD-10 - R59.9) Palpable mobile axillary lymph node was felt on exam. I am waiting for official radiology report on diagnostic imaging done on 06/03/20. Unfortunately, the report is not available at this time. I explained to patient that it is possible that the lymph node is reactive as she has a lot of scab like skin lesions on her breast and hands and has a possible right axillary sebaceous cyst. Final recs to follow when imaging report is available. I will follow up with her in about 1 month/ end of June to review imaging and finalize plans. May, Left breast mass (ICD-10 - N63.20) The area of the left breast located at 4:00 6CFN with some darker skin discoloration and central pit likely corresponds with sebaceous cyst. This can be excised if patient wishes in the future. Eliquis will need to be held prior May, Nipple discharge (ICD-10 - N64.52) Patient described 2 episodes of spontaneous right nipple discharge - one yellowish and one possibly bloody, both after showed. I was not able to elicit any nipple discharge on my exam. I have discussed with the patient various kinds of nipple discharge. I explained that nipple discharge which is every other color but bloody or clear, non spontaneous, bilateral, from numerous ducts is usually benign and physiologic. Nipple discharge which is spontaneous, unilateral, from single duct, bloody or clear in color is more concerning. Occasionally, certain medications or changes in prolactin levels or abnormal thyroid function can cause nipple discharge, however the discharge in these situations is usually bilateral. We will check patients Prolactin and TSH. Order was given to her and she was asked to stop by the lab. I am still waiting for the report of diagnostic imaging done on 06/03/20. Radiology did not make that report available yet. The report will be sent from radiology to Dr Quijano. I will also look for it in the near future. Depending on the results, and if discharge is reproducible at later time, patient may need ductogram. 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 I will follow up with her in about 1 month/ end of June to review imaging and finalize plans. All questions were answered and patient agrees with the plan. May, Skin lesion (ICD-10 - L98.9) Patient indicated that right axillary skin lesion bothers her. This likely corresponds to small sebaceous cyst which can be excised if patient wishes so. Eliquis will need to be held. I am still waiting for diagnostic imaging report. I will follow up with her in about 1 month/ end of June to review imaging and finalize plans. May, Large breasts (ICD-10 - N62) It is unclear at this time why patient may be experiencing Right breast enlargement. There are no suspicious masses in the right breast which would warrant biopsy. I am still waiting for the report of diagnostic imaging which unfortunately is not available at this time. Unfortunately, patient cannot have MRI due to poor kidney function, May, Breast pain, right (ICD-10 - N64.4) I have discussed with patient that breast pain is quite common in women and that there are numerous causes of the breast pain. I have discussed with her cutting down on caffeine (coffee and chocolate), and modifying the salt intake. We also discuss that some medication can cause or aggravate breast pain. I discussed with her that some xiij-rtx-mhgixrh supplements like evening primrose oil, vitamin E, or omega-3 fatty acids can help with breast pain. I encouraged her to try these supplements one at the time and to allow adequate time for them to take an effect, i.e. at least 3-4 weeks per supplement. Patient may follow up with me for her breast pain on as needed basis. All questions were answered. Patient agrees with the plan. May, Anticoagulant long-term use (ICD-10 - Z79.01) HX of DVT On Eliquis, will need to hold for procedures May, Family history of cancer (ICD-10 - Z80.9) Patient participated in our Cancer screening program, [employer] and she was not found to be at increased risk for cancer base on her family history. She does not qualify for genetic testing or high risk screening with MRI of the breast base on her family history. May, Chronic kidney disease, unspecified CKD stage (I CD-10 - N18.9) unable to get MRI with gadolinium May, Other TOTAL TIME SPENT COUNSELING PATIENT : 60 MINUTES PLAN OF TREATMENT Medication Medication Name Sig Start Date Stop Date Hydrocodone-Acetaminophen 10-325 MG 1 tablet as needed Orally ev agustina 4 hrs Torsemide 20 MG 2 tab Orally Daily Tresiba 200 U/mL 300 units subcutaneously daily Humalog KwikPen 200 UNIT/ML as directed Subcutaneous T ID per sliding scale; max daily #40 units Treatment Notes Assessment Notes Clinical Notes Breast mass, right I am waiting for the report of diagnostic mammogram and USwhich were done on 06/03/20 and unfortunately are not available to me at thetime of visit. Per my limited sono of the palpable area, the lump which patientfeels at 10:00 7CFN corresponds with superficial fat lobule. Additional recswill follow. If imaging is normal, clinical monitoring of the area will berecommended. Biopsy also can be considered. Palpable lymph node Palpable mobile axillary lym ph node was felt on exam. I am waiting for official radiology report on diagnostic imaging done on 06/03/20. Unfortunately, the report is not available at this time.I explained to patient that it is possible that the lymph node is reactive as she has a lot of scab like skin lesions on her breast and hands and has a possible right axillary sebaceous cyst.Final recs to follow when imaging report is available.I will follow up with her in about 1 month/ end of June to review imaging and finalize plans. Left breast mass The area of the leftbreast l ocated at 4:00 6CFN with some darker skin discoloration and central pitlikely corresponds with sebaceous cyst. This can be excised if patient wishesin the future. Eliquis will need to be held prior Nipple discharge Patient described 2 episodes of spontaneous right nipple discharge - one yellowish and one possibly bloody, both after showed. I was not able to elicit any nipple discharge on my exam.I have discussed with the patient various kinds of nipple discharge. I explained that nipple discharge which is every other color but bloody or clear, non spontaneous, bilateral, from numerous ducts is usually benign and physiologic. Nipple discharge which is spontaneous, unilateral, from single duct, bloody or clear in color is more concerning.Occasionally, certain medications or changes in prolactin levels or abnormal thyroid function can cause nipple discharge, however the discharge in these situations is usually bilateral. We will check patients Prolactin and TSH. Order was given to her and she was asked to stop by the lab.I am still waiting for the report of diagnostic imaging done on 06/03/20. Radiology did not make that report available yet. The report will be sent from radiology to Dr Quijano. I will also look for it in the near future. 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 Skin lesion Patient indicated that right axillary skin lesion bothers her. This likely corresponds to small sebaceous cyst which can be excised if patient wishes so. Eliquis will need to be held. I am still waiting for diagnostic imaging report.I will follow up with her in about 1 month/ end of June to review imaging and finalize plans. Large breasts It is unclear at this time w hy patient may be experiencing Right breast enlargement. There are no suspicious masses in the right breast which would warrant biopsy. I am still waiting for the report of diagnostic imaging which unfortunately is not available at this time.Unfortunately, patient cannot have MRI due to poor kidney function, Breast pain, right I have discussed with patiinna t that breast pain is quite common in women and that there are numerous causes of the breast pain. I have discussed with her cutting down on caffeine (coffee and chocolate), and modifying the salt intake. We also discuss that some medication can cause or aggravate breast pain.I discussed with her that some xehp-pfh-bzfpltj supplements like evening primrose oil, vitamin E, or omega-3 fatty acids can help with breast pain. I encouraged her to try these supplements one at the time and to allow adequate time for them to take an effect, i.e. at least 3-4 weeks per supplement.Patient may follow up with me for her breast pain on as needed basis.All questions were answered. Patient agrees with the plan. Anticoagulant long-term use HX of DVTOn Eliquis, will need to hold for procedures Family history of cancer Patient participated in our Cancer screening program, [employer] and she was not found to be at increased risk for cancer base on her familyhistory. She does not qualify for genetic testing or high risk screening withMRI of the breast base on her family history. Chronic kidney disease, unspecified CKD stage unable to get MRI with gadolinium Next Appt Details Provider Name:Yung Reis, 08:15:00 AM, [address] [place], [phone], Provider Name:Yung Reis, 08:15:00 AM, [address] [place], [phone], Provider Name:Tiffany Hogue, 06-11-14 01:30:00 PM, [address] [place] [address], [id number], Provider Name:Mireille Quijano, 2020-11-18 07:30:00 AM, [address] [place] [address], [phone], Provider Name:Tiffany Hogue, 06-06-27 01:00:00 PM, [address] [place] [address], [id number], Insurance Providers Payer Name Payer Address Payer Phone Insured Name Patient Relati onship to Insured Coverage Start Date Coverage End Date [facility] [place] [address] [facility] [phone] JOSS FORD self 2014
--- OUTSIDE RECORDS SUMMARY | 2020-11-17 18:47 | CCD ---
Author Author Ben Otto MD [facility] Organization Ben Otto MD [facility] Address [address] [address] Phone Care Team Providers Care Procurement Analyst Name Role Phone Brady OD, Clint Unavailable [phone] Victoriano ROBERSON, Zion Unavailable [phone] Macie ROBERSON, Mireille Cool PP [phone] Taran DO, Brandon Unavailable [phone] Reason for Referral No Reason for Referral [...] Without Complication 12/17/2016 - 12:00 AM Brandon Chirinos DO Inactive History of Nicotine Dependence 12/17/2016 - 12:00AM Oli ttkatrina Taran DO Active Essential Hypertension 12/17/2016 - 12:00AM Brandon Grant sarahsekou DO Active Retinopathy Hypertensive 12/17/2016 - 12:00AM [...] Treatment Future Appointments Date Time Location Provider 1 Week Post OP 10/02/2020 9:15AM Ben Otto MD [facility] kaylynn Chirinos DO Assessments Includes: Assessments for all patient encounters Findings Encounter Date Cystoid macular edema 1 Day Post OP [...] senile cataract 6 Month Fo llow-Up with Brandon Chirinos DO 06/27/2020 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 without macular edema 6 Month Follow-Up with Brandon Chirinos DO 06/27/2020 Dry eye syndrome TRIAGE NON URGENT with Brandon Chirinos DO 04/21/2020 Keratoconjunctivitis TRIAGE NON URGENT with Brandon Strickland n DO 04/21/2020 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 without macular edema TRIAGE NON URGENT with Brandonjody Chirinos DO 04/21/2020 Bilateral myopia Insertion of Punctal Plug IN OFFICE-NEED AUTH with Brandon Chirinos DO 12/11/2019 Borderline glaucoma ocular hypertension Insertion of P unctal Plug IN OFFICE- NEED AUTH with Brandon Chirinos DO 12/11/2019 Dry eye syndrome Insertion of Punctal Plug IN OFFICE-NEED AUTH with Brandon Chirinos DO 12/11/2019 Borderline glaucoma ocular hypertension TRIAGE NON URG ENT with Brandon Chirinos DO 10/24/2019 Dry eye syndrome TRIAGE NON URGENT with Brandon Chirinos DO 10/24/2019 Keratoconjunctivitis TRIAGE NON URGENT with Brandon Strickland n DO 10/24/2019 Squamous blepharitis right upper eyelid , right lower eyelid, left upper eyelid and left lower eyelid TRIAGE NON URGENT with Brandon Chirinos DO 10/24/2019 Dry eye syndrome Insertion of Punctal Plug IN OFFICE-NEED AUTH with Brandon Chirinos DO 08/10/2019 Borderline glaucoma ocular hypertension 5 Month Follow -Up with Brandon Taran DO 07/31/2019 Dry eye syndrome 5 Month Follow-Up with Brandon Taran DO 07/31/2019 Hypertensive retinopathy 5 Month Follow-Up with Brandon Jennifer braga DO 07/31/2019 Posterior subcapsular polar senile cataract 5 Month Fo llow-Up with Brandon Chirinos DO 07/31/2019 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 without macular edema 5 Month Follow-Up with Brandon Taran DO 07/31/2019 Dry eye syndrome Insertion of Punctal Plug IN OFFICE-NEED AUTH with Brandon Taran DO 02/14/2019 Acute atopic conjunctivitis 7 Month Follow-Up with Brandon [facility] DO 12/19/2018 Borderline glaucoma ocular hypertension 7 Month Follow -Up with Brandon Taran DO 12/19/2018 Dry eye syndrome 7 Month [...] NEW PATIENT WI TH REFERRAL with Brandon Rodriguezstein DO 12/17/2016 Dry eye syndrome NEW PATIENT WITH REFERRAL with Brandon [facility] DO 12/17/2016 Essential hypertension NEW PATIENT WITH REFERRAL with Olena Chirinos DO 12/17/2016 History of nicotine dependence NEW PATIENT WITH REFERR AL with Brandon Rodriguezstein DO 12/17/2016 Hypertensive retinopathy NEW PATIENT WITH [...] historical Medications Current Medications (continue as prescribed) Ketorolac Tromethamine 0.5% Ophthalmic Solution 09/26/2020 Provider: Brandon Chirinos DO Diagnosis: Cystoid macular jocelyn a following cataract surgery, right eye one drop four times a day in the right eye Pred Forte 1% Ophthalmic Suspension 09/26/2020 Prov ider: Brandon Chirinos DO Diagnosis: Cystoid [...] Eliquis 5MG Oral Tablet 05/24/2018 Provider: Diagnosis: Singulair 10MG Oral Tablet 12/17/2016 Provider: Diagnosis: Bentyl 10MG Oral Capsule 12/17/2016 Provider: Diagnosis: Pramipexole Dihydrochloride 1MG Oral Tablet 12/17/2016 Provider: Diagnosis: Acidophilus Probiotic Oral Tablet 12/17/2016 Provid er: Diagnosis: Symbicort 80-4.5MCG/ACT Inhalation Aerosol 12/17/2016 Provider: Diagnosis: Cetirizine HCl 10MG Oral Tablet 12/17/2016 Provider : Diagnosis: Hydrocodone-Acetaminophen 10-325MG Oral Tablet 12/17/2016 Provider: [...] 0.3MG/0.3ML Injection Solution Auto-injector Provider: Diagnosis: Nystatin 177620DLIH/GM External Powder 12/17/2016 P rovider: Diagnosis: Past Medications on file Lotemax 0.5% Ophthalmic Suspension 06/27/2020 - 07/09/2020 [...] Recorded Vital Signs Includes: Vital Signs from 09/26/2019 through 09/26/2020No Vital Signs Recorded For Specified Dates Results Includes: Results from 09/26/2019 through 09/26/2020No Results Recorded For Specified Dates History of Present Illness History of Present Illness not supported for this document typeNo History of Present Illness Recorded Social History Description Last Updated No consumption of alcohol 09/26/2020 No tobacco use 09/26/2020 Not using drugs 09/26/2020 Smoking status : Former smoker 09/26/2020 Previous smoking history 10/24/2019 Procedures and Surgical History Includes: Procedures from 09/26/2019 through 09/26/2020 Procedures Code Diagnosis Performing Provider Service Location Service Date Ophthalmic biometry - IOL Master with IO L calculation (Professional Comp., Left side) 88770 Posterior subcapsular polar age-related cataract, left eye Brandon Cullen MD [facility] 09/04/2020 Extracapsular cataract removal with intraocular lens implant (Right Side) 33705 Age-related nuclear cataract, right eye Brandon Chirinos DO [facility] 08/28/2020 Ophthalmic biometry - IOL Master with IOL calculation (Right Side) 63865 Posterior subcapsular polar age-related cataract, right eye Brandon Cullen MD [facility] 08/22/2020 Intermediate Eye Exam Established Patient (Signi/Sep Eval. 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 & Man.) 43954 Type 1 diab with mod nonp rtnop without macular edema, bi, Keratoconjunct sicca, not specified as Sjogren's, bilateral, Dry eye syndrome of bilateral lacrimal glands Brandon Cullen MD [facility] 04/21/2020 [facility], with interpretation and report 24636 Type 1 diab with mod nonp rtnop without macular edema, bi Brandon Cullen MD [facility] 04/21/2020 Refraction 79596 Myopia, bilateral Brandon Conley MD [facility] 12/11/2019 Insertion of Punctum Plug (Bilateral Procedure) 90496 Dry eye syndrome of bilateral lacrimal glands Brandon Cullen MD [facility] 12/11/2019 Insertion of Punctum Plug (LEFT LOWER LID) 93273 Dry eye syndrome of bilateral lacrimal glands Brandon Cullen MD [facility] 10/24/2019 Intermediate Eye Exam Established Patient (Signi/Sep Eval. & Man.) 88110 Ocular hypertension, bilateral, Squamous blepharitis right upper eyelid, Squamous blepharitis right lower eyelid, Squamous blepharitis left upper eyelid Brandon Cullen MD [facility] 10/24/2019 Surgical History Last Updated History of [...] History in patient's chart Description Last Updated Recent change in medical history PCIOL OS 09/25/2020 Dr. Chirinos 09/26/2020 History of diabetes mellitus Type 1: Dx: 1996 A1C: 7 07/09/2020 History of the retina was abnormal 06/27/2020 0 Reported medical history bipolar, OCD, Anxiety, Fibromyalgia, Bilateral TMJ, Psoriasis, Spinal Bifida, Common Immune Deficiency, Insomnia, Temporal Lobe Seizure, GERD, Cellulitis, CDIF, Renal Failure, ABD Adhesions, Endometriosis, Degenerative Disc Disease, Migraines, Insomnia, Bulging Disc Lumber, 2 blood clots in left upper arm 10/24/2019 Currently wearing eyeglasses 10/24/2019 History of arthritis 10/24/2019 History of asthma 10/24/2019 History of hypertension 10/24/2019 Family History Includes: Family History in patient's chart Description Last Updated Fraternal history of arthritis 09/26/2020 Fraternal history of diabetes mellitus 09/26/2020 Fraternal history of hypertension 09/26/2020 Fraternal history of macular degeneration 09/26/2020 Maternal history of arthritis 09/26/2020 Maternal history of cataract 09/26/2020 Maternal history of diabetes mellitus 09/26/2020 Maternal history of glaucoma 09/26/2020 Maternal history of hypertension 09/26/2020 Maternal history of stroke/cerebrovascular accident Maternal history of thyroid disorder 09/26/2020 Paternal history of arthritis 09/26/2020 Paternal history of cataract 09/26/2020 Paternal history of diabetes mellitus 09/26/2020 Paternal history of family history of cancer 0 Paternal history of glaucoma 09/26/2020 Paternal history of heart disease 09/26/2020 Paternal history of hypertension 09/26/2020 Sororal history of arthritis 09/26/2020 Sororal history of heart disease 09/26/2020 Sororal history of hypertension 09/26/2020 Review of Systems Review of Systems not supported for this document typeNo Review of Systems Recorded Mental Status Mental Status not supported for this document type Description Oriented to time, place, and person Anxiety Functional Status Functional Status not supported for [...] 12:00AM Acti ve Encounters Includes: Encounters from 09/26/2019 through 09/26/2020 Encounter Provider Location Date Check-In Time Check-Out Time D iagnosis 1 Day Post OP Brandon Cullen MD [facility] 0 8:33AM 10:00AM Pseudophakia, Posterior Capsule Opacific ation Eccentric Capsule Right Eye, Cystoid Macular Edema SAME DAY POST OP Brandon Chirinos [facility] 09/1609/04/2020 4:40PM 7:05AM Extracapsular cataract removal w/IOL implant Brandon Monterroso in [facility] 09/25/2020 09/04/2020 6:50AM 7:07AM POST OP VISIT WITH PRE-OP Brandon Cullen MD [facility] 09/04/2020 1:46PM 2:33PM Pseudophakia, Catara ct Senile Posterior Subcapsular Polar SAME DAY POST OP Brandon Chirinos DO [facility] 08/17 7:33AM 7:33AM Extracapsular cataract removal w/IOL implant Brandon Rodriguezjonnathan laguna [facility] 08/28/2020 7:03AM 7:03AM 1 WK PREOP FOR SURGERY Brandon Cullen MD [facility] 08/22/2020 12:36PM 1:44PM Cataract Senile Posterior Pinon bcapsular Polar Insertion of Punctal Plug IN OFFICE-NEED AUTH Brandon Cullen MD [facility] 07/09/2020 9:40AM 11:02AM Cataract Marissa le Posterior Subcapsular Polar, Dry Eye Syndrome 6 Month Follow-Up Brandon Cullen MD [facility] 08/2020 1:18PM 2:23PM Type 1 Diab W/ Diab Retinopa thy Mod Nonprolif Without Macular Edema, Borderline Glaucoma Ocular Hypertension, Cataract Senile Posterior Subcapsular Polar, Taking Medication For Diabetes Long-term Use of Insulin, Keratoconjunctivitis 10 - 14 Day Follow-Up Brandon Cullen MD [facility] 05/01/2020 04/21/2020 9:40AM 04/21/2020 11:59PM TRIAGE NON URGENT Brandon Cullen MD [facility] 03/2020 2:19PM 3:19PM Type 1 Diab W/ Diab Retinopa thy Mod Nonprolif Without Macular Edema, Dry Eye Syndrome, Keratoconjunctivitis Insertion of Punctal Plug IN OFFICE-NEED AUTH Brandon Cullen MD [facility] 12/11/2019 12:52PM 1:56PM Dry Eye Syndr ome, Borderline Glaucoma Ocular Hypertension, Refractive Error - Myopia Bilateral TRIAGE NON URGENT Brandon Cullen MD [facility] 05/2020 8:29AM 9:05AM Borderline Glaucoma Ocular H ypertension, Dry Eye Syndrome, Blepharitis Squamous, Keratoconjunctivitis Insurance Includes: Active Insurance Policies Plan Name Member ID Group # Subscriber Relationship Effective Da kassi 1 - [employer] /PRIOR [employer] NEEDED [id number] Frank Jayden ng Advance Directives Includes: Current Advance DirectivesNo Advance Directives Recorded Health Concerns Includes: Active Health ConcernsNo Active Health Concerns Recorded Goals Includes: Active GoalsNo Active Goals Recorded Interventions Includes: Interventions for active GoalsNo Interventions Recorded Evaluations & Outcomes Includes: Evaluations & Outcomes for active GoalsNo Outcomes Recorded
--- OUTSIDE RECORDS SUMMARY | 2020-11-17 18:47 | CCD ---
Author Author [facility] Organization [facility] Address Unknown Phone Unavailable Care Team Providers Care Cab Worker Name Role Phone Randolph Villarreal Unavailable PROBLEMS Type Condition ICD9-CM Code [id number] Code Onset Dates Condition S tatus SNOMED Code Notes Problem Lumbago with sciatica, right side M54.41 Active 760855700 Problem Intervertebral disc disorders with radiculopathy , lumbar region M51.16 Active 708240681553957 Problem 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 Active 121881920 Problem MRSA (methicillin resistant Staphylococcus aureus) carrier Z22.322 Active 348180656 Problem CKD stage 3 due to type 2 diabetes mellitus E11.22 Active 862400483937 Problem Primary insomnia F51.01 Active 7656254 Problem Cigarette nicotine dependence with other nicotin e-induced disorder F17.218 Active 71925276132238876 Problem Recurrent deep venous thrombosis I82.409 Active 579369121 Problem Intervertebral disc disorders with radiculopathy , lumbosacral region M51.17 Active 13568123546337769 Problem Essential hypertension I10 Active 91035456 Problem Lesion of ulnar nerve, left upper limb G56.22 Active 158886310161412 Problem Restless leg syndrome G25.81 Active 69560786 Problem Type 2 diabetes mellitus with foot ulcer E11.621 Active 964499393 Problem Nocturnal leg cramps G47.62 Active 333683797 Problem Other chronic pain G89.29 Active 18732061 Problem Gastroparesis K31.84 Active 767434785 Problem Lesion of ulnar nerve, right upper limb G56.21 Active 784757205777414 Problem Pulmonary emphysema, unspecified emphysema type J4 3.9 Active 52882706 Problem Age-related nuclear cataract, left eye H25.12 Active 151692589388533 Problem Type 2 diabetes mellitus with other circulatory compli cations E11.59 Active 49166298 Problem Status post below-knee amputation of left lower extremity Z89.512 Active 235105929265084 Problem Seasonal allergic rhinitis due to pollen J30.1 Active 25422940 Problem Cigarette 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.211 Active 334509047 Problem Mixed hyperlipidemia E78.2 Active 150384145 Problem Age-related nuclear cataract, right eye H25.11 Active 438165925204801 Problem Panic disorder F41.0 Active 604068363 Problem 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 L97.412 Active 231786798 Problem History of ischemic colitis Z87.19 Active 1099 039703654249 Problem Non-pressure chronic ulcer o f other part of unspecified foot with unspecified severity L97.509 Active 332837282 Problem Iron deficiency anemia, unspecified iron deficiency an emia type D50.9 Active 74699355 Problem Chronic kidney disease, unspecified CKD stage N18. 9 Active 225516174 Problem Type 2 diabetes mellitus with diabetic chronic kidney disease E11.22 Active 87255002 Problem Ulcerative colitis with complication, unspecified location K51.919 Active 34554036 Problem History of diabetes mellitus Z86.39 Active 161 098187 Problem PA (obstructive sleep apnea) G47.33 Active 78 365124 Problem 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 Active 28633179 Problem History of MRSA infection Z86.14 Active 135901 000 Problem Carpal tunnel syndrome of right wrist G56.01 Ac tive 130859900246941 Problem long term care social worker current use of anticoagulant Z79.01 A ctive 406192922 Problem senior living (current) use of insulin Z79.4 Activ e 096099119 Problem Factor V Leiden D68.51 Active 038702826 Problem GERD (gastroesophageal reflux disease) K21.9 A ctive 944030398 Problem Sebaceous cyst of skin of left breast N60.82 Ac tive 58313736 Problem Anticoagulant long-term use Z79.01 Active 7111 89217 Problem Bipolar disorder, current episode manic w/o psyc hotic features, mild F31.11 Active 217000095 Problem Below knee amputation S88.119A Active 847284693 Problem History of factor V Leiden mutation Z86.2 Acti ve 771930878 ALLERGIES Allergen (clinical drug ingredient) Drug/Non Drug Allergy do cumented on EMR Reaction Allergy Type Onset Date Status Sulfa (for allergy use only) Hives Drug Allergy Active Penicillin (For Allergies Use Only) Anaphylaxis Drug Aller gy Active simvastatin Zocor[place] [place] Code:[address]-34) Hives Drug Allergy Active Glucophage Hives Drug Allergy Active cephalexin Keflex([facility] [place] Code:[address]-54) hives Drug Allergy Active Latex (for allergy use only) Anaphylaxis Drug Allergy Active atorvastatin Lipitor([facility] [place] Code:[address]-04) Hives Drug Allergy Active Fresh Pineapple swollen lips/ sores in mouth Non Drug Josué rgy Active fenofibrate Tricor([facility] [place] Code:[address]-78) Hives Drug Allergy Active ENCOUNTERS from 1969 to 2020-09-18 Encounter Location Date Provider Diagnosis [facility] [address] [place] [phone] Aug, Randolph Villarreal Intervertebral disc disorders with radic ulopathy, lumbar region M51.16 ; History of MRSA infection Z86.14 ; History of edema Z87.898 ; History of diabetes mellitus Z86.39 ; History of renal insufficiency Z87.448 ; History of factor V Leiden mutation Z86.2 ; History of asthma Z87.09 and Below [...] Education Language: Question Answer Notes Languages spoken: Tajik Tenriism: Question Answer Notes Tenriism 33 None [...] Information VITAL SIGNS Weight 265 lbs Aug, Height 70 in Aug, BMI 38.02 kg/m2 Aug, Heart Rate 91 /min Aug, Respiratory Rate 18 /min Aug, Temperature 97.7 degrees Fahrenheit Aug, Oximetry 99% Aug, Blood pressure systolic 198 mm Hg Aug, Blood pressure diastolic 110 MANUAL mm Hg Aug, MEDICATIONS Medication SIG (Take, [...] Orally Once a day May, Active Cholecalciferol 74619 UNIT 1 capsule Orally once a week on ay Jun, Active Cyclobenzaprine HCl 10 MG 1 tab Orally Three times a day prn mus telly spasms May, Active Collagen Ultra - 1 cap Orally Daily May, Active May Use - wheel chair dx code Z89.512 _ for 99 months Jan, Active Ropinirole HCl 2 MG 1 tablet at 8 pm and at midnight Orally BID May, Active Nystatin Powder 728313 UNIT powder Externally to bilat eral berast [...] scale; max daily #40 units Active Pen Bellflower 316" 31G X 5 MM as directed [...] Information RESULTS No Results REASON FOR VISIT Discuss DCS/Order MRI MEDICAL (GENERAL) HISTORY Type Description Date [...] simpson Medical History Temporal Lobe Seizures in 1990s, none re cently Medical History GERD, Hiatal Hernia, gastroparesisi - Dr Toshia Mosqueda Medical History 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 Ford. I would like to stop the Eliquis for 3 weeks, 2 weeks before the trial and 1 week during the trial. I would like to talk with the radiologist about her MRI to see if there is adequate space. I reminded the patient about the vancomycin and the Hibiclens soap and Bactroban nasal spray. I will request a new lumbar MRI as her last one has been over a year. I will also request authorization for the dorsal column stimulator trial. The patient understands and agrees with the plan. I, Geena David, documented the above information acting as a scribe for Dr. Villarreal. I have reviewed the above document, written by Geena David, medical service technician, and I verify that it is accurate. Aug, History of MRSA infection (ICD-10 - Z86.14) Aug, History of edema (ICD-10 - Z87.898) Aug, History of diabetes mellitus (ICD-10 - Z86.39) Aug, History of renal insufficiency (ICD-10 - Z87.448 ) Aug, History of factor V Leiden mutation (ICD-10 - Z8 6.2) Aug, History of asthma (ICD-10 - Z87.09) Aug, Below knee amputation (ICD-10 - S88.119A) PLAN [...] units Treatment Notes Assessment Notes Clinical Notes Intervertebral disc disorders with radiculopathy, lumbar reg ion I discussed alternatives with Ms. Ford. I would like to stop the Eliquis for 3 weeks, 2 weeks before the trial and 1 week during the trial. I would like to talk with the radiologist about her MRI to see if there is adequate space. I reminded the patient about the vancomycin and the Hibiclens soap and Bactroban nasal spray. I will request a new lumbar MRI as her last one has been over a year. I will also request authorization for the dorsal column stimulator trial. The patient understands and agrees with the plan. I, Geena David, documented the above information acting as a scribe for Dr. Villarreal. I have reviewed the above document, written by Geena David, medical service technician, and I verify that it is accurate. Treatment Notes Test Name Order Date [facility] MRI Lumbar w/o contrast (cpt 70032) 2020-09-18 Next Appt Details Request auth for lumbar MRI Reason: Provider Name:Yung Reis, 08:15:00 AM, [address] [place] [address], [phone], Provider Name:Yung Reis, 08:15:00 AM, [address] [place], [phone], Provider Name:Tiffany Hogue, 06-11-14 01:30:00 PM, [address] [place] [address], [id number], Provider Name:Mireille Quijano, 2020-11-18 07:30:00 AM, [address] [place] [address], [phone], Provider Name:Tiffany Hogue, 06-06-27 01:00:00 PM, [address] [place] [address], [phone], Insurance Providers Payer Name Payer Address Payer Phone Insured Name Patient Relati onship to Insured Coverage Start Date Coverage End Date [facility] [place] [address] [facility] [phone] JOSS FORD 2014
--- OUTSIDE RECORDS SUMMARY | 2020-11-17 18:47 | CCD ---
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 Active 225250113 Problem MRSA (methicillin resistant Staphylococcus aureus) carrier Z22.322 Active 963023607 Problem CKD stage 3 due to type 2 diabetes mellitus E11.22 Active 630833626543 Problem Primary insomnia F51.01 Active 7713667 Problem Cigarette nicotine dependence with other nicotin e-induced disorder F17.218 Active 35138929421337370 Problem Recurrent deep venous thrombosis I82.409 Active 722830838 Problem Intervertebral disc disorders with radiculopathy , lumbosacral region M51.17 Active 44582599921721240 Problem Essential hypertension I10 Active 23114649 Problem Lesion of ulnar nerve, left upper limb G56.22 Active 457408716775109 Problem Restless leg syndrome G25.81 Active 56476323 Problem Type 2 diabetes mellitus with foot ulcer E11.621 Active 898401391 Problem Nocturnal leg cramps G47.62 Active 794711930 Problem Other chronic pain G89.29 Active 53439216 Problem Gastroparesis K31.84 Active 536038083 Problem Lesion of ulnar nerve, right upper limb G56.21 Active 097031354453428 Problem Pulmonary emphysema, unspecified emphysema type J4 3.9 Active 14770976 Problem Age-related nuclear cataract, left eye H25.12 Active 263612237274784 Problem Type 2 diabetes mellitus with other circulatory compli cations E11.59 Active 43012414 Problem Status post below-knee amputation of left lower extremity Z89.512 Active 673789964442004 Problem Seasonal allergic rhinitis due to pollen J30.1 Active 40570043 Problem Cigarette 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.211 Active 084189921 Problem Mixed hyperlipidemia E78.2 Active 510437050 Problem Age-related nuclear cataract, right eye H25.11 Active 457213978218739 Problem Panic disorder F41.0 Active 321433366 Problem 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 A ctive 706312575 Problem intermediate (current) use of insulin Z79.4 Activ e 524622097 Problem Factor V Leiden D68.51 Active 660118978 Problem GERD (gastroesophageal reflux disease) K21.9 A ctive 481988617 Problem Sebaceous cyst of skin of left breast N60.82 Ac tive 89314771 Problem Anticoagulant long-term use Z79.01 Active 7111 90682 Problem Bipolar disorder, current episode manic w/o psyc hotic features, mild F31.11 Active 865670709 Problem Below knee amputation S88.119A Active 719398065 Problem History of factor V Leiden mutation Z86.2 Acti ve 583653946 ALLERGIES Allergen (clinical drug ingredient) Drug/Non Drug Allergy do cumented on EMR Reaction Allergy Type Onset Date Status Sulfa (for allergy use only) Hives Drug Allergy Active Penicillin (For Allergies Use Only) Anaphylaxis Drug Aller gy Active simvastatin Zocor([facility] Code:[address]-72) Hives Drug Allergy Active Glucophage Hives Drug Allergy Active cephalexin Keflex([facility] Code:[address]-74) hives Drug Allergy Active Latex (for allergy use only) Anaphylaxis Drug Allergy Active atorvastatin Lipitor([facility] Code:[address]-70) Hives Drug Allergy Active Fresh Pineapple swollen lips/ sores in mouth Non Drug Josué rgy Active fenofibrate Tricor([facility] Code:[address]-36) Hives Drug Allergy Active ENCOUNTERS from 1969 to 2020-09-20 Encounter Location Date Provider Diagnosis [facility] [address] [place] [id number] Aug, Randolph Villarreal IMMUNIZATIONS Vaccine Route Administration Date [...] Education Language: Question Answer Notes Languages spoken: Serbian Scientology: Question Answer Notes Scientology 33 None Sexual Hx: Question Answer Notes [...] Orally Once a day May, Active Cholecalciferol 52423 UNIT 1 capsule Orally once a week on Jun, Active Cyclobenzaprine HCl 10 MG 1 tab Orally Three times a day prn mus telly spasms May, Active Collagen Ultra - 1 cap Orally Daily May, Active May Use - wheel chair dx code Z89.512 _ for 99 months Jan, Active Ropinirole HCl 2 MG 1 tablet at 8 pm and at midnight Orally BID May, Active Nystatin Powder 260902 UNIT powder Externally to bilat eral berast [...] scale; max daily #40 units Active Pen [place] 3/16" 31G X 5 MM as directed [...] Information RESULTS No Results REASON FOR VISIT request auth MEDICAL (GENERAL) HISTORY Type Description Date Medical [...] L5-S1 Medical History + for Rheumatoid Factor 712/12 Medical History Hypogammagobulinemia, CVID Medical History Hypertension [...] mellitus wit h other circulatory complications - [facility] Medical History Hx recto-sigmoid ischemic co litis 03/2018 confirmed by sigmoid c bx-Jaylin, msesnteric arteriogram s intervention Medical History Hx urinary retention - [facility] Urology Medical History Hx Wynn's Palsy [...] per sliding scale; max daily #40 units Next Appt Details Provider Name:Yung Evangelistitalo, 2019-12- 08:15:00 AM, [address] [facility] [facility] [place], [address], Provider Name:Yung Blancaitalo, 08:15:00 AM, [address] [place], [address], Provider Name:Tiffany Hogue, 06-11-14 01:30:00 PM, [address] [place] [address], [address], Provider Name:Mireille Quijano, 2020-11-18 07:30:00 AM, [address] [place] [address], [phone], Provider Name:Tiffany Hogue, 06-06-27 01:00:00 PM, [address] [place] [address], [address], Insurance Providers Payer Name Payer Address Payer Phone Insured Name Patient Relati onship to Insured Coverage Start Date Coverage End Date [facility] [address] [facility] [phone] JOSS FORD 2013
--- OUTSIDE RECORDS SUMMARY | 2020-11-17 18:47 | CCD ---
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 Active 799943060 Problem MRSA (methicillin resistant Staphylococcus aureus) carrier Z22.322 Active 331798212 Problem CKD stage 3 due to type 2 diabetes mellitus E11.22 Active 320342353711 Problem Primary insomnia F51.01 Active 3405294 Problem Cigarette nicotine dependence with other nicotin e-induced disorder F17.218 Active 16457371869535800 Problem Recurrent deep venous thrombosis I82.409 Active 573586903 Problem Intervertebral disc disorders with radiculopathy , lumbosacral region M51.17 Active 48385082077617043 Problem Essential hypertension I10 Active 84936100 Problem Lesion of ulnar nerve, left upper limb G56.22 Active 602760922128885 Problem Restless leg syndrome G25.81 Active 42742824 Problem Type 2 diabetes mellitus with foot ulcer E11.621 Active 397901861 Problem Nocturnal leg cramps G47.62 Active 247803408 Problem Other chronic pain G89.29 Active 27871098 Problem Gastroparesis K31.84 Active 468296617 Problem Lesion of ulnar nerve, right upper limb G56.21 Active 546156135406666 Problem Pulmonary emphysema, unspecified emphysema type J4 3.9 Active 12703920 Problem Age-related nuclear cataract, left eye H25.12 Active 987616938535045 Problem Type 2 diabetes mellitus with other circulatory compli cations E11.59 Active 92402214 Problem Status post below-knee amputation of left lower extremity Z89.512 Active 028620023367137 Problem Seasonal allergic rhinitis due to pollen J30.1 Active 36974732 Problem Cigarette 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.211 Active 706164803 Problem Mixed hyperlipidemia E78.2 Active 413040736 Problem Age-related nuclear cataract, right eye H25.11 Active 926115851237487 Problem Panic disorder F41.0 Active 221027476 Problem 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 L97.412 Active 213177501 Problem History of ischemic colitis Z87.19 Active 1099 849842323699 Problem Non-pressure chronic ulcer o f other part of unspecified foot with unspecified severity L97.509 Active 996595494 Problem Iron deficiency anemia, unspecified iron deficiency an emia type D50.9 Active 80957741 Problem Chronic kidney disease, unspecified CKD stage N18. 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 A ctive 862458787 Problem jail (current) use of insulin Z79.4 Activ e 144395797 Problem Factor V Leiden D68.51 Active 326817252 Problem GERD (gastroesophageal reflux disease) K21.9 A ctive 702918428 Problem Sebaceous cyst of skin of left breast N60.82 Ac tive 47444581 Problem Anticoagulant long-term use Z79.01 Active 7111 52667 Problem Bipolar disorder, current episode manic w/o psyc hotic features, mild F31.11 Active 379243707 Problem Below knee amputation S88.119A Active 767676439 Problem History of factor V Leiden mutation Z86.2 Acti ve 313253121 ALLERGIES Allergen (clinical drug ingredient) Drug/Non Drug Allergy do cumented on EMR Reaction Allergy Type Onset Date Status Sulfa (for allergy use only) Hives Drug Allergy Active Penicillin (For Allergies Use Only) Anaphylaxis Drug Aller gy Active simvastatin Zocor([facility] Code:[address]-36) Hives Drug Allergy Active Glucophage Hives Drug Allergy Active cephalexin Keflex([facility] Code:[address]-97) hives Drug Allergy Active Latex (for allergy use only) Anaphylaxis Drug Allergy Active atorvastatin Lipitor([facility] Code:[address]-96) Hives Drug Allergy Active Fresh Pineapple swollen lips/ sores in mouth Non Drug Josué rgy Active fenofibrate Tricor([facility] Code:[address]-32) Hives Drug Allergy Active ENCOUNTERS from 1969 to 2020-09-22 Encounter Location Date Provider Diagnosis [facility] [address] [id number] Sep, Randolph Villarreal IMMUNIZATIONS Vaccine Route Administration Date [...] Education Language: Question Answer Notes Languages spoken: Maltese Caodaism: Question Answer Notes Caodaism 33 None Sexual Hx: Question Answer Notes [...] Ophthalmic three times a day Active Pen [place] 12/30" 31G X 5 MM as directed [...] Inhalation Twice a day May, Active Cholecalciferol 21770 UNIT 1 capsule Orally once a week [...] four times daily prn Active Nystatin Powder 061037 UNIT powder Externally to bilat eral berast and abd pannus daily as needed daily for 30 days Active Wheelchair - as directed Dx Z89.51, M54.41 Jan, Active PROCEDURES No Information RESULTS No Results REASON FOR VISIT MRI ORDER MEDICAL (GENERAL) HISTORY Type Description Date Medical [...] L5-S1 Medical History + for Rheumatoid Factor 7/12/12 Medical History Hypogammagobulinemia, CVID Medical History Hypertension [...] intervention Medical History Hx urinary retention - [facility] Urology Medical History Hx Wynn's Palsy [...] TREATMENT Next Appt Details Provider Name:Randolph Villarreal, 2020-10-24 01:45:00 PM, [address] [place], [address], Provider Name:Tiffany Hogue, 06-11-14 01:30:00 PM, [address] [place], [address], Provider Name:Mireille Quijano, 2020-11-18 07:30:00 AM, [address] [place] [address], [address], Provider Name:Tiffany Hogue, 06-06-27 01:00:00 PM, [address] [place] [address], [address], Insurance Providers Payer Name Payer Address Payer Phone Insured Name Patient Relati onship to Insured Coverage Start Date Coverage End Date [facility] [id number] [facility] [phone] JOSS FORD self 2013
--- OUTSIDE RECORDS SUMMARY | 2020-11-17 18:48 | CCD ---
Author Author [facility] Organization [facility] Address Unknown Phone Unavailable Care Team Providers Care Transit Vehicle Inspector Name Role Phone Mireille Quijano Unavailable PROBLEMS Type Condition ICD9-CM Code [id number] Code Onset Dates Condition S tatus SNOMED Code Notes Problem Iron deficiency anemia, unspecified iron deficiency an emia type D50.9 Active 44022589 Problem Nocturnal leg cramps G47.62 Active 779696705 Problem Restless leg syndrome G25.81 Active 72185118 Problem Other chronic pain G89.29 Active 57744972 Problem Gastroparesis K31.84 Active 251141614 Problem 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 Active 655157514 Problem Lumbago with sciatica, right side M54.41 Active 417451485 Problem Age-related nuclear cataract, right eye H25.11 Active 746665195059254 Problem Panic disorder F41.0 Active 704270494 Problem Age-related nuclear cataract, left eye H25.12 Active 928397670728459 Problem Type 2 diabetes mellitus with other circulatory compli cations E11.59 Active 22646272 Problem History of ischemic colitis Z87.19 Active 1099 421378306574 Problem Mixed hyperlipidemia E78.2 Active 012721191 Problem Cigarette nicotine dependence with other nicotin e-induced disorder F17.218 Active 22042216324966213 Problem Intervertebral disc disorders with radiculopathy , lumbosacral region M51.17 Active 32662309941783309 Problem PA (obstructive sleep apnea) G47.33 Active 78 430369 Problem 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 Active 57183418 Problem Carpal tunnel syndrome of right wrist G56.01 Ac tive 724054453718891 Problem senior care current use of anticoagulant Z79.01 A ctive 854230829 Problem Factor V Leiden D68.51 Active 809836432 Problem senior care (current) use of insulin Z79.4 Activ e 550946264 Problem Pulmonary emphysema, unspecified emphysema type J4 3.9 Active 15832567 Problem GERD (gastroesophageal reflux disease) K21.9 A ctive 469677327 Problem Status post below-knee amputation of left lower extremity Z89.512 Active 889277490580443 Problem Seasonal allergic rhinitis due to pollen J30.1 Active 23389061 Problem Lesion of ulnar nerve, right upper limb G56.21 Active 970008179002865 Problem Bipolar disorder, current episode manic w/o psyc hotic features, mild F31.11 Active 378863582 Problem Non-pressure chronic ulcer o f other part of unspecified foot with unspecified severity L97.509 Active 489512982 Problem 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 L97.412 Active 643439205 Problem Type 2 diabetes mellitus with foot ulcer E11.621 Active 786253508 Problem Sebaceous cyst of skin of left breast N60.82 Ac tive 21553357 Problem Primary insomnia F51.01 Active 9965971 Problem Anticoagulant long-term use Z79.01 Active 7111 77412 Problem Intervertebral disc disorders with radiculopathy , lumbar region M51.16 Active 309612163643381 Problem Essential hypertension I10 Active 13372490 Problem MRSA (methicillin resistant Staphylococcus aureus) carrier Z22.322 Active 877143750 Problem CKD stage 3 due to type 2 diabetes mellitus E11.22 Active 684487068591 Problem Lesion of ulnar nerve, left upper limb G56.22 Active 506820392526358 Problem Chronic kidney disease, unspecified CKD stage N18. 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 Code:[address]-55) hives Drug Allergy Active Latex (for allergy use only) Anaphylaxis Drug Allergy Active atorvastatin Lipitor([facility] Code:[address]-85) Hives Drug Allergy Active Fresh Pineapple swollen lips/ sores in mouth Non Drug Josué rgy Active fenofibrate Tricor([facility] Code:[address]-51) Hives Drug Allergy Active ENCOUNTERS from 1969 to 2020-09-03 Encounter Location Date Provider Diagnosis [address] [address] 18 Aug, 2020 Mireille Quijano IMMUNIZATIONS Vaccine Route Administration Date Status Toradol 60mg/2mL (Ketorolac) IM Intramuscular February 09, [...] Date Details (start date - stop date) Current Smoker Sex Assigned At : Social History Observation Description Sex Assigned At Unknown Audit Question Answer Notes Total Score: 0 Interpretation: Alcohol Education Language: Question Answer Notes Languages spoken: Faroese Latter-Day: Question Answer Notes Latter-Day 33 None Sexual Hx: Question Answer Notes [...] Use: Question Answer Notes Are you a: current smoker Smoking Cessation Information Given 04/29/2020 Patient counseled on the dangers of tobacco use and urged to quit: 04/29/2020 How many cigarettes a day do you smoke? 11-20 Are you interested in quitting? Thinking about quitting Counseled the patient on smoking cessation, education provid ed 04/29/2020 REASON FOR REFERRAL No Information VITAL SIGNS No information MEDICATIONS Medication SIG (Take, Route, Frequency, Duration) Notes Start Da te End Date Status Torsemide 20 MG 2 tab Orally Daily for 90 days Active FreeStyle Dwight 14 Day Sensor - as directed Dx E11.9 2019 Active Ropinirole HCl 2 MG 1 tablet at 8 pm and at midnight Orally BID May, Active Eliquis 5 MG 1 tablet Orally BID Act gonzales Levofloxacin 250 MG 1 tablet Orally twice a day for 14 day(s) Jul, Not-Taking Wheelchair - as directed Power wheelchair; Dx M54.41, G56.21, Z89.512, M62.81 Apr, Active Probiotic - Orally Active Symbicort 80-4.5 MCG/ACT 2 puffs Inhalation Twice a day May, Active AmLODIPine Besylate 2.5 MG 1 tablet Orally Once a day 27 J 2019 Not-Taking Rosuvastatin Calcium 10 MG 1 tablet Orally Once a day 14 2017 Active Humalog KwikPen 200 UNIT/ML as directed Subcutaneous T ID per sliding scale; max daily #40 units Active Bactroban 2% as directed applied topically twice a day Jul, Active BD Pen Mini - as directed E11.9 qid for 30 day(s) May, Active Misc. Devices - as directed Repair and repla ce prosthetic and liners as needed; Dx Z89.51 Jan, Active Cymbalta 60 MG 2 capsuleS Orally daily May, Active Cholecalciferol 38857 UNIT 1 capsule Orally once a week on Jun, Active Dexilant 60 MG 1 capsule Orally Once a day May, Active Methylphenidate HCl ER (LA) 20 MG 1 capsule in the morning Orall y Once a day Jun, Active Ketoconazole 2 % 5 applications to scalp Exte rnally Once a day and let sit for 5 minutes Jul, Active Betamethasone Valerate 0.1 % 1 application to affected area Externally Once a day Jan, Active Wheelchair - as directed Dx Z89.51, M54.41 Jan, Active Pen [place] 3/16" 31G X 5 MM as directed 5 times daily Aug, Active Cetirizine HCl 10 MG 1 tablet Orally Once a day Jan, 15 Active EpiPen 0.3 MG/0.3ML 1 injection Injection As nee ded for allergic reaction for 30 day(s) Active Refresh 1 % 1 drop into affected eye as needed Ophth almic four times daily prn Active Restasis 0.05 % 1 drop into affected eye Ophthalmic three times a day Active Valacyclovir HCl 1 GM 1 tablet Orally every 24 hrs Active Lyrica 300 MG 1 capsule Orally Twice a day (pain clinic) Active Clobetasol Propionate 0.05 % 1 application to affected area Externally twice a day to scalp Jul, Active TraZODone HCl 100 MG 2 tablets orally Once a day at hs Active ProAir HFA 108 (90 Base) MCG/ACT 2 puffs as needed Inhalation ev agustina 6 hrs May, Active Singulair 10 MG 1 tablet Orally Once a day Active Lunesta 3 MG 1 tablet immediately before bedtime Orally Once a day May, Active Tamsulosin HCl 0.4 MG Orally Daily HS Active Tresiba 200 U/mL 160 units subcutaneously daily Active Hibiclens 4 % as directed Externally twice a day Jul, 019 Active Hydrocodone-Acetaminophen 10-325 MG 1 tablet as needed Orally every 4 hrs Active Magnesium Chloride 64 MG 1 tablet Orally Daily May, 9 Active Cyclobenzaprine HCl 10 MG 1 tab Orally Three times a day prn mus telly spasms May, Active Xopenex 1.25 MG/3ML 3 ml Inhalation Every 6 hours as needed Active Nystatin Powder 791057 UNIT powder Externally to bilat eral berast and abd pannus daily as needed daily for 30 days Active May Use - wheel chair dx code Z89.512 _ for 99 months Jan, Active Zofran 8 MG 1 tab PRN nausea Orally every 12 hours Jun, Active Collagen Ultra - 1 cap Orally Daily May, Active PROCEDURES No Information RESULTS No Results REASON FOR VISIT preop MEDICAL (GENERAL) HISTORY Type Description Date Medical [...] intervention Medical History Hx urinary retention - [facility] Urology Medical History Hx Wynn's Palsy [...] 05/22/2019 Hospitalization History right foot cellulitis 06/2019 Goals Section No Information Health Concerns No Information MEDICAL EQUIPMENT No Information MENTAL STATUS No Information FUNCTIONAL STATUS No Information ASSESSMENTS No Information PLAN OF TREATMENT Next Appt Details Provider Name:Randolph Villarreal, 2020-09-05 02:45:00 PM, [address] [place], [address], Provider Name:Yung Reis 08:00:00 AM, [address] [place], [address], Provider Name:Mireille Quijano, 2020-09-15 08:00:00 AM, [address] [place] [address], [address], Provider Name:Tiffany Hogue, 06-11-14 01:30:00 PM, [address] [place] [address], [address], Provider Name:Tiffany Hogue, 06-06-27 01:00:00 PM, [address] [place] [address], [address], Insurance Providers Payer Name Payer Address Payer Phone Insured Name Patient Relati onship to Insured Coverage Start Date Coverage End Date [facility] [id number] [facility] [id number] JOSS FORD 2013
--- OUTSIDE RECORDS SUMMARY | 2020-11-17 18:48 | CCD ---
Author Author [facility] Organization [facility] Address Unknown Phone Unavailable Care Team Providers Care Revenue Stamp Cutter Name Role Phone Mireille Quijano Unavailable PROBLEMS Type Condition ICD9-CM Code QKI83-MA Code Onset Dates Condition S tatus SNOMED Code Notes Problem Lumbago with sciatica, right side M54.41 Active 235481770 Problem Intervertebral disc disorders with radiculopathy , lumbar region M51.16 Active 713574632688930 Problem 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 Active 019583681 Problem MRSA (methicillin resistant Staphylococcus aureus) carrier Z22.322 Active 035355207 Problem CKD stage 3 due to type 2 diabetes mellitus E11.22 Active 805398291964 Problem Primary insomnia F51.01 Active 4053749 Problem Cigarette nicotine dependence with other nicotin e-induced disorder F17.218 Active 11829356683662131 Problem Recurrent deep venous thrombosis I82.409 Active 170189881 Problem Intervertebral disc disorders with radiculopathy , lumbosacral region M51.17 Active 63108605455899159 Problem Essential hypertension I10 Active 55120568 Problem Lesion of ulnar nerve, left upper limb G56.22 Active 970352317760709 Problem Restless leg syndrome G25.81 Active 02298994 Problem Type 2 diabetes mellitus with foot ulcer E11.621 Active 610778602 Problem Nocturnal leg cramps G47.62 Active 295947209 Problem Other chronic pain G89.29 Active 42729057 Problem Gastroparesis K31.84 Active 881637691 Problem Lesion of ulnar nerve, right upper limb G56.21 Active 053122344641726 Problem Pulmonary emphysema, unspecified emphysema type J4 3.9 Active 75201636 Problem Age-related nuclear cataract, left eye H25.12 Active 202900546695137 Problem Type 2 diabetes mellitus with other circulatory compli cations E11.59 Active 48860104 Problem Status post below-knee amputation of left lower extremity Z89.512 Active 203355589923550 Problem Seasonal allergic rhinitis due to pollen J30.1 Active 27246189 Problem Cigarette 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.211 Active 063594595 Problem Mixed hyperlipidemia E78.2 Active 104354963 Problem Age-related nuclear cataract, right eye H25.11 Active 625823744230542 Problem Panic disorder F41.0 Active 665979344 Problem 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 L97.412 Active 801080978 Problem History of ischemic colitis Z87.19 Active 1099 050659212891 Problem Non-pressure chronic ulcer o f other part of unspecified foot with unspecified severity L97.509 Active 083942459 Problem Iron deficiency anemia, unspecified iron deficiency an emia type D50.9 Active 13809984 Problem Chronic kidney disease, unspecified CKD stage N18. 9 Active 356043296 Problem Type 2 diabetes mellitus with diabetic chronic kidney disease E11.22 Active 99142601 Problem Ulcerative colitis with complication, unspecified location K51.919 Active 49075618 Problem History of diabetes mellitus Z86.39 Active 161 224405 Problem PA (obstructive sleep apnea) G47.33 Active 78 235583 Problem 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 Active 55310806 Problem History of MRSA infection Z86.14 Active 332051 000 Problem Carpal tunnel syndrome of right wrist G56.01 Ac tive 988098177220749 Problem alf current use of anticoagulant Z79.01 A ctive 361709959 Problem alf (current) use of insulin Z79.4 Activ e 967894948 Problem Factor V Leiden D68.51 Active 683907092 Problem GERD (gastroesophageal reflux disease) K21.9 A ctive 355615586 Problem Sebaceous cyst of skin of left breast N60.82 Ac tive 34522861 Problem Anticoagulant long-term use Z79.01 Active 7111 65821 Problem Bipolar disorder, current episode manic w/o psyc hotic features, mild F31.11 Active 638857723 Problem Below knee amputation S88.119A Active 083517861 Problem History of factor V Leiden mutation Z86.2 Acti ve 648849191 ALLERGIES Allergen (clinical drug ingredient) Drug/Non Drug Allergy do cumented on EMR Reaction Allergy Type Onset Date Status Sulfa (for allergy use only) Hives Drug Allergy Active Penicillin (For Allergies Use Only) Anaphylaxis Drug Aller gy Active simvastatin Zocor([facility] Code:[address]-01) Hives Drug Allergy Active Glucophage Hives Drug Allergy Active cephalexin Keflex([facility] Code:[address]-16) hives Drug Allergy Active Latex (for allergy use only) Anaphylaxis Drug Allergy Active atorvastatin Lipitor([facility] Code:[address]-64) Hives Drug Allergy Active Fresh Pineapple swollen lips/ sores in mouth Non Drug Josué rgy Active fenofibrate Tricor([facility] Code:[address]-83) Hives Drug Allergy Active ENCOUNTERS from 1969 to 2020-09-16 Encounter Location Date Provider Diagnosis [address] [address] Aug, Mireille Quijano Type 2 diabetes mellitus with other circ ulatory complications E11.59 ; CKD stage 3 due to type 2 diabetes mellitus E11.22 ; terminal supervisor (current) use of insulin Z79.4 ; Essential hypertension I10 ; Cigarette 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.211 ; Intervertebral disc disorders with radiculopathy, lumbosacral region M51.17 ; Non-pressure chronic ulcer of right heel and midfoot with fat layer exposed L97.412 ; Sebaceous cyst of skin of left breast N60.82 and Encounter for immunization Z23 IMMUNIZATIONS Vaccine Route Administration Date Status Influenza [...] Education Language: Question Answer Notes Languages spoken: Telugu Religious: Question Answer Notes Religious 33 None Sexual Hx: Question Answer Notes [...] No Information VITAL SIGNS Weight 263 lbs Aug, Height 70 in Aug, BMI 37.73 kg/m2 Aug, Heart Rate 96 /min Aug, Respiratory Rate 18 /min Aug, Temperature 96.1 degrees Fahrenheit Aug, Oximetry 99 Aug, Blood pressure systolic 130 mm Hg Aug, Blood pressure diastolic 70 mm Hg Aug, MEDICATIONS Medication SIG (Take, [...] Orally Once a day May, Active Cholecalciferol 67231 UNIT 1 capsule Orally once a week [...] midnight Orally BID May, Active Nystatin Powder 424342 UNIT powder Externally to bilat eral berast [...] Once a day 14 M 2017 Active FreeStyle Dwight 14 Day Sensor - as directed Dx E11.9 2019 Active ProAir HFA 108 (90 Base) MCG/ACT 2 puffs as needed Inhalation ev agustina 6 hrs May, Active Humalog KwikPen 200 UNIT/ML as directed Subcutaneous T ID per sliding scale; max daily #40 units Active Pen Renfrew 316" 31G X 5 MM as directed [...] 2 tab Orally Daily A ctive PROCEDURES Procedure Date Ordered Result Body Site Immunization: Flublok Quadrivalent (18 years & older) 0.5mL IM (Influenza) 2020-09-15 N/A RESULTS No Results REASON FOR VISIT F/u diabetes MEDICAL (GENERAL) HISTORY Type Description Date Medical [...] intervention Medical History Hx urinary retention - [facility] Urology Medical History Hx [facility]'s Palsy [...] pena intervention//CT he 03/20- Hospitalization History saul palsey 10/08/2018 Hospitalization History 3 days renal failure 05/22/2019 Hospitalization History right foot cellulitis 06/2019 Hospitalization History HYPOTENSION W/ FALL 05/27/20 Goals Section No Information Health Concerns No Information MEDICAL EQUIPMENT No Information MENTAL STATUS No Information FUNCTIONAL STATUS No Information ASSESSMENTS Encounter Date Diagnosis Assessment Notes Treatment Notes Treatm ent Clinical Notes Aug, Type 2 diabetes mellitus wit h other circulatory complications (ICD- 10 - E11.59) A1c remains uncontrolled; has labile glucose. I reinforced importance of carb consistent diet to avoid highs and lows - she agrees to work on this. Will decreased Tresiba to 300 units daily to manage hypoglycemia. Aug, CKD stage 3 due to type 2 diabetes mellitus (ICD -10 - E11.22) Following with nephrology - will request most recent note. Aug, alf (current) use of insulin (ICD-10 - Z79 .4) Aug, Essential hypertension (ICD-10 - I10) Per JNC 8 guidelines, goal BP < 140/90; is meeting goal on current regimen. Advised heart-healthy diet, sodium restriction. Aug, Cigarette nicotine dependence in remission (ICD- 10 - F17.211) I encouraged continued abstinence from tobacco. Aug, Intervertebral disc disorder s with radiculopathy, lumbosacral region (ICD-10 - M51.17) A1c improved, glucose readings have improved. Letter written for patient to be put on schedule for surgery in November, but will need repeat labs and clearance closer to date of surgery. Aug, 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 (ICD-10 - L97.412) Improving; [facility] with [facility]. Aug, Sebaceous cyst of skin of left breast (ICD-10 - N60.82) Following with Dr. Ponce, note reviewed. Aug, Encounter for immunization (ICD-10 - Z23) PLAN OF TREATMENT Medication Medication Name Sig Start Date Stop Date Hydrocodone-Acetaminophen 10-325 MG 1 tablet as needed Orally ev agustina 4 hrs Torsemide 20 MG 2 tab Orally Daily Tresiba 200 U/mL 300 units subcutaneously daily Humalog KwikPen 200 UNIT/ML as directed Subcutaneous T ID per sliding scale; max daily #40 units Treatment Notes Assessment Notes Clinical Notes Type 2 diabetes mellitus with other circulatory complication s A1c remains uncontrolled; has labile glucose. I reinforced importance of carb consistent diet to avoid highs and lows - she agrees to work on this. Will decreased Tresiba to 300 units daily to manage hypoglycemia. CKD stage 3 due to type 2 diabetes mellitus Following with nephrology - will request most recent note. Essential hypertension Per JNC 8 guideli shirley, goal BP < 140/90; is meeting goal on current regimen. Advised heart-healthy diet, sodium restriction. Cigarette nicotine dependence in remission I encouraged continued abstinence from tobacco. Intervertebral disc disorders with radiculopathy, lumbosacra l region A1c improved, glucose readings have improved. Letter written for patient to be put on schedule for surgery in November, but will need repeat labs and clearance closer to date of surgery. Non-pressure chronic ulcer of right heel and midfoot with fa t layer exposed Improving; following with [facility]. Sebaceous cyst of skin of left breast Fo llowing with Dr. Ponce, note reviewed. Future Test Test Name Order Date HEMOGLOBIN A1c 20201115 Next Appt Details 2 months; 30 min Reason:F/u diabetes Provider Name:Yung Reis, 08:15:00 AM, [address] [place], [address], Provider Name:Tiffany Hogue, 06-11-14 01:30:00 PM, [address] [place], [address], Provider Name:Mireille Quijano, 2020-11-18 07:30:00 AM, [address] [place], [address], Provider Name:Tiffany Hogue, 06-06-27 01:00:00 PM, [address] [place], [address], Follow Up:2 months; 30 minF/u diabetes Insurance Providers Payer Name Payer Address Payer Phone Insured Name Patient Relati onship to Insured Coverage Start Date Coverage End Date R [facility] [place] [place] [address] [facility] [phone] JOSS FORD self 2013
--- OUTSIDE RECORDS SUMMARY | 2020-11-17 18:48 | CCD ---
Author Author [facility] Organization [facility] Address [phone] [address] Phone Care Team Providers Care Finisher Hot Strip Name Role Phone Brady PRICILLA, Clint Unavailable [phone] Victoriano ROBERSON, Zion Unavailable [phone] Macie ROBERSON, Mireille Cool PP [phone] Taran DO, Brandon Unavailable [phone] Reason for Referral No Reason for Referral Recorded Problems Includes: Active, inactive, and resolved Problems All Visits Onset Date - Time Resolved Date - Time Provider Co ndition Status Pseudophakia 09/04/2020 - 12:00AM Brandon Chirinos DO Active Squamous blepharitis left upper eyelid 10/24/2019 - 12:00AM Brandon Chirinos DO Active Squamous blepharitis left lower eyelid 10/24/2019 - 12:00AM Brandon Chirinos DO Active Blepharitis [...] of Nicotine Dependence 12/17/2016 - 12:00AM Oli Chirinos DO Active Essential Hypertension 12/17/2016 - 12:00AM Brandon hare DO Active Retinopathy Hypertensive 12/17/2016 - 12:00AM Brandon Taran STALLINGS Active Keratoconjunctivitis 12/17/2016 - 12:00AM Brandon braga DO Active Taking Medication For Diabetes Long-term Use of Insulin 12/18/19 17 - 12:00AM Brandon Chirinos DO Inactive Borderline Glaucoma Ocular Hypertension 12/17/2016 - 12:00AM Brandon Taran STALLINGS Active Dry Eye Syndrome 12/17/2016 - 12:00AM Brandon zuniga DO Active Plan of Treatment Future Appointments Date Time Location Provider 1 Week Post OP 10/02/2020 9:15AM Ben Otto [facility] M kaylynn Chirinos DO Assessments Includes: Assessments for all patient encounters Findings Encounter Date Posterior capsule opacification of eccentric capsule i [...] 04/21/2020 Keratoconjunctivitis TRIAGE NON URGENT with Brandon zuniga DO 04/21/2020 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 without macular edema TRIAGE NON URGENT with Brandon Chirinos DO 04/21/2020 Bilateral myopia Insertion of Punctal Plug IN OFFICE-NEED AUTH with Brandon Rodriguezstein DO 12/11/2019 Borderline glaucoma ocular hypertension Insertion [...] Keratoconjunctivitis TRIAGE NON URGENT with Brandon Strickland efrain DO 10/24/2019 Squamous blepharitis right upper eyelid [...] Hypertensive retinopathy 5 Month Follow-Up with Brandon braga DO 07/31/2019 Posterior subcapsular polar senile cataract 5 Month Fo llow-Up with Brandon Rodriguezstein DO 07/31/2019 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 without macular edema 5 Month Follow-Up with Brandon Rodriguezstein DO 07/31/2019 Dry eye syndrome Insertion of Punctal Plug IN OFFICE-NEED AUTH with Brandon Rodriguezstein DO 02/14/2019 Acute atopic conjunctivitis 7 Month Follow-Up with Brandon [facility] DO 12/19/2018 Borderline glaucoma ocular hypertension 7 [...] NEW PATIENT WITH REFERRAL with Brandon L[facility] DO 12/17/2016 Essential hypertension NEW PATIENT WITH REFERRAL with Olena Chirinos DO 12/17/2016 History of nicotine dependence NEW PATIENT WITH REFERR AL with Brandon Rodriguezstein DO 12/17/2016 Hypertensive retinopathy NEW PATIENT WITH REFERRAL with Deric Rodriguezstein DO 12/17/2016 Keratoconjunctivitis NEW PATIENT WITH REFERRAL with Brandon Rodriguezstein DO 12/17/2016 Long-term use of insulin NEW PATIENT WITH REFERRAL with Deric Rodriguezstein DO 12/17/2016 Posterior subcapsular polar senile cataract NEW PATIEN T WITH REFERRAL with Brandon Rodriguezstein DO 12/17/2016 Type 2 diabetes mellitus without complication [facility] WITH REFERRAL with Brandon Chirinos DO 12/17/2016 Instructions Instructions not supported for this document typeNo Instructions Recorded Medical Equipment - Implanted Devices Includes: Current and historical DevicesNo Medical Equipment Recorded Medications Includes: Current and historical Medications Current Medications (continue as prescribed) Inveltys 1% Ophthalmic Suspension 08/22/2020 Provid er: [...] Eliquis 5MG Oral Tablet 05/24/2018 Provider: Diagnosis: Hydrocodone-Acetaminophen 10-325MG Oral Tablet 12/17/2016 Provider: Diagnosis: Acidophilus Probiotic Oral Tablet 12/17/2016 Provid er: Diagnosis: Pramipexole Dihydrochloride 1MG Oral Tablet 12/17/2016 Provider: Diagnosis: Cetirizine HCl 10MG Oral Tablet 12/17/2016 Provider : Diagnosis: Singulair 10MG Oral Tablet 12/17/2016 Provider: Diagnosis: Bentyl 10MG Oral Capsule 12/17/2016 Provider: Diagnosis: Trazadone 100MG Oral Tablet 12/17/2016 Provider: Diagnosis: Lyrica 300MG Oral Capsule 12/17/2016 Provider: Diagnosis: Furosemide 40MG Oral Tablet 12/17/2016 Provider: Diagnosis: Lunesta 3MG Oral Tablet 12/17/2016 Provider: Diagnosis: Symbicort 80-4.5MCG/ACT Inhalation Aerosol 12/17/2016 Provider: Diagnosis: Trujeo 125 units Intramuscular Jet-injector 12/17/2016 Provider: Diagnosis: Cymbalta 60MG Oral Capsule Delayed Release Particles 017 Provider: Diagnosis: seroquel 600 mg Oral Tablet 12/17/2016 Provider: Diagnosis: Xopenex 1.25 mg Inhalation Inhaler 12/17/2016 Provi tammi: Diagnosis: every 6 hours EpiPen 2-Thomas 0.3MG/0.3ML Injection Solution Auto-injector Provider: Diagnosis: Nystatin 063922GXZP/GM External Powder 12/17/2016 P rovider: Diagnosis: Past [...] ider: Diagnosis: HumaLOG 100UNIT/ML Subcutaneous Solution Cartridge 7 - 12/19/2018 Provider: Diagnosis: 200 sliding scale [...] Description Last Updated No consumption of alcohol 07/09/2020 No tobacco use 07/09/2020 Not using drugs 07/09/2020 Smoking status : Former smoker 07/09/2020 Previous smoking history 10/24/2019 Procedures and Surgical History Includes: Procedures from 09/26/2019 through 09/26/2020 Procedures Code Diagnosis Performing Provider Service Location Service Date Ophthalmic biometry - IOL Master with IO L calculation (Professional Comp., Left side) 03630 Posterior subcapsular polar age-related cataract, left eye Brandon Cullen MD [facility] 09/04/2020 Extracapsular cataract removal with intraocular lens implant (Right Side) 09947 Age-related nuclear cataract, right eye Brandon Chirinos DO [facility] 08/28/2020 Ophthalmic biometry - IOL Master with IOL calculation (Right Side) 93999 Posterior subcapsular polar age-related cataract, right eye Brandon Cullen MD [facility] 08/22/2020 Intermediate Eye Exam Established Patient (Signi/Sep Eval. & Man.) 55903 Posterior subcapsular polar age-related cataract, right eye Brandon Cullen MD [facility] 08/22/2020 Insertion of Punctum Plug (Bilateral Procedure) 72821 Dry eye syndrome of bilateral lacrimal glands Brandon Cullen MD [facility] 07/09/2020 Comprehensive eye exam established patient 47788 Type 1 diab with mod nonp rtnop without macular edema, bi, half-way (current) use of insulin, Ocular hypertension, bilateral, Keratoconjunct sicca, not specified as Sjogren's, bilateral Brandon Cullen MD [facility] 06/27/2020 Comprehensive eye exam established patient (Signi/Sep Eval. & Man.) 47753 Type 1 diab with mod nonp rtnop without macular edema, bi, Keratoconjunct sicca, not specified as Sjogren's, bilateral, Dry eye syndrome of bilateral lacrimal glands Brandon Cullen MD [facility] 04/21/2020 [facility], with interpretation and report 43440 Type 1 diab with mod nonp rtnop without macular edema, bi Brandon Cullen MD [facility] 04/21/2020 Refraction 57740 Myopia, bilateral Brandon Conley MD [facility] 12/11/2019 Insertion of Punctum Plug (Bilateral Procedure) 68914 Dry eye syndrome of bilateral lacrimal glands Brandon Cullen MD [facility] 12/11/2019 Insertion of Punctum Plug (LEFT LOWER LID) 81413 Dry eye syndrome of bilateral lacrimal glands Brandon Cullen MD [facility] 10/24/2019 Intermediate Eye Exam Established Patient (Signi/Sep Eval. & Man.) 62733 Ocular hypertension, bilateral, Squamous blepharitis right upper eyelid, Squamous blepharitis right lower eyelid, Squamous blepharitis left upper eyelid Brandon Cullen MD [facility] 10/24/2019 Surgical History Last Updated Surgical / procedural history Cholecyst ectomy 1995, [...] History of diabetes mellitus Type 1: Dx: 1997 A1C: 7 07/09/2020 History of the retina [...] of asthma 10/24/2019 History of hypertension 10/24/2019 No recent change in medical history 10/24/2019 Family History Includes: Family History in patient's chart Description Last Updated Fraternal history of arthritis 07/09/2020 Fraternal history of diabetes mellitus 07/09/2020 Fraternal history of hypertension 07/09/2020 Fraternal history of macular degeneration 07/09/2020 Maternal history of arthritis 07/09/2020 Maternal history of cataract 07/09/2020 Maternal history of diabetes mellitus 07/09/2020 Maternal history of glaucoma 07/09/2020 Maternal history of hypertension 07/09/2020 Maternal history of stroke/cerebrovascular accident Maternal history of thyroid disorder 07/09/2020 Paternal history of arthritis 07/09/2020 Paternal history of cataract 07/09/2020 Paternal history of diabetes mellitus 07/09/2020 Paternal history of family history of cancer 0 Paternal history of glaucoma 07/09/2020 Paternal history of heart disease 07/09/2020 Paternal history of hypertension 07/09/2020 Sororal history of arthritis 07/09/2020 Sororal history of heart disease 07/09/2020 Sororal history of hypertension 07/09/2020 Review of Systems Review of Systems not [...] 1 Day Post OP Brandon Cullen MD [facility] 0 8:33AM 09/25/2020 11:59PM Pseudophakia, Posterior Capsule Opacific ation Eccentric Capsule Right Eye SAME DAY POST OP Brandon Chirinos [facility] 09/1609/04/2020 4:40PM 7:05AM Extracapsular cataract removal w/IOL implant Brandon Monterroso in [facility] 09/25/2020 09/04/2020 6:50AM 7:07AM POST OP VISIT WITH PRE-OP Brandon Cullen MD [facility] 09/04/2020 1:46PM 2:33PM Pseudophakia, Catara ct Senile Posterior Subcapsular Polar SAME DAY POST OP Brandon Chirinos [facility] 08/17 7:33AM 7:33AM Extracapsular cataract removal w/IOL implant Brandon Monterroso in [facility] 08/28/2020 7:03AM 7:03AM 1 WK PREOP FOR SURGERY Brandon Cullen MD [facility] 08/22/2020 12:36PM 1:44PM Cataract Senile Posterior Pinon bcapsular Polar Insertion of Punctal Plug IN OFFICE-NEED AUTH Brandon Cullen MD [facility] 07/09/2020 9:40AM 11:02AM Cataract Marissa le Posterior Subcapsular Polar, Dry Eye Syndrome 6 Month Follow-Up Brandon Cullen MD [facility] 08/2020 1:18PM 2:23PM Type 1 Diab W/ Diab Retinopa thy Mod Nonprolif Without Macular Edema, Borderline Glaucoma Ocular Hypertension, Cataract Senile Posterior Subcapsular Polar, Taking Medication For Diabetes Long-term Use of Insulin, Keratoconjunctivitis 10 - 14 Day Follow-Up Brandon Cullen MD [facility] 05/01/2020 04/21/2020 9:40AM 04/21/2020 11:59PM TRIAGE NON URGENT Brandon Cullen MD [facility] 03/2020 2:19PM 3:19PM Type 1 Diab W/ Diab Retinopa thy Mod Nonprolif Without Macular Edema, Dry Eye Syndrome, Keratoconjunctivitis Insertion of Punctal Plug IN OFFICE-NEED AUTH Brandon Cullen MD [facility] 12/11/2019 12:52PM 1:56PM Dry Eye Syndr ome, Borderline Glaucoma Ocular Hypertension, Refractive Error - Myopia Bilateral TRIAGE NON URGENT Brandon Cullen MD [facility] 05/2020 8:29AM 9:05AM Borderline Glaucoma Ocular H ypertension, Dry Eye Syndrome, Blepharitis Squamous, Keratoconjunctivitis Insurance Includes: Active Insurance Policies Plan Name Member ID Group # Subscriber Relationship Effective Da kassi 1 - [employer] /PRIOR AUTHS NEEDED [id number] Jayden Lucas Advance Directives Includes: Current Advance DirectivesNo Advance Directives Recorded Health Concerns Includes: Active Health ConcernsNo Active Health Concerns Recorded Goals Includes: Active GoalsNo Active Goals Recorded Interventions Includes: Interventions for active GoalsNo Interventions Recorded Evaluations & Outcomes Includes: Evaluations & Outcomes for active GoalsNo Outcomes Recorded
--- OUTSIDE RECORDS SUMMARY | 2020-11-17 18:48 | CCD ---
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 Active 828850346 Problem Lumbago with sciatica, right side M54.41 Active 364124697 Problem Primary insomnia F51.01 Active 9244482 Problem Intervertebral disc disorders with radiculopathy , lumbar region M51.16 Active 824767684737874 Problem Intervertebral disc disorders with radiculopathy , lumbosacral region M51.17 Active 01516223283611015 Problem Essential hypertension I10 Active 88777057 Problem MRSA (methicillin resistant Staphylococcus aureus) carrier Z22.322 Active 734362715 Problem CKD stage 3 due to type 2 diabetes mellitus E11.22 Active 501087529530 Problem Lesion of ulnar nerve, left upper limb G56.22 Active 928218560336543 Problem Nocturnal leg cramps G47.62 Active 711062271 Problem Type 2 diabetes mellitus with foot ulcer E11.621 Active 622957569 Problem History of ischemic colitis Z87.19 Active 1099 344825643863 Problem Gastroparesis K31.84 Active 184599224 Problem Restless leg syndrome G25.81 Active 87112339 Problem Pulmonary emphysema, unspecified emphysema type J4 3.9 Active 35489531 Problem Factor V Leiden D68.51 Active 018734686 Problem Status post below-knee amputation of left lower extremity Z89.512 Active 526147379679475 Problem Seasonal allergic rhinitis due to pollen J30.1 Active 84222176 Problem Lesion of ulnar nerve, right upper limb G56.21 Active 833649004012184 Problem Bipolar disorder, current episode manic w/o psyc hotic features, mild F31.11 Active 041878197 Problem Age-related nuclear cataract, right eye H25.11 Active 173115963831571 Problem Panic disorder F41.0 Active 171179104 Problem Age-related nuclear cataract, left eye H25.12 Active 575444770259259 Problem Type 2 diabetes mellitus with other circulatory compli cations E11.59 Active 27691701 Problem 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 A ctive 507161150 Problem History of MRSA infection Z86.14 Active 602077 000 Problem Cigarette nicotine dependence with other nicotin e-induced disorder F17.218 Active 77069259959573743 Problem Recurrent deep venous thrombosis I82.409 Active 895321664 Problem GERD (gastroesophageal reflux disease) K21.9 A ctive 247482546 Problem PA (obstructive sleep apnea) G47.33 Active 78 246479 Problem 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 Active 93548248 Problem Sebaceous cyst of skin of left breast N60.82 Ac tive 98968771 Problem Anticoagulant long-term use Z79.01 Active 7111 00319 Problem halfway (current) use of insulin Z79.4 Activ e 018273638 Problem Below knee amputation S88.119A Active 960648362 Problem History of factor V Leiden mutation Z86.2 Acti ve 085189593 ALLERGIES Allergen (clinical drug ingredient) Drug/Non Drug Allergy do cumented on EMR Reaction Allergy Type Onset Date Status Sulfa (for allergy use only) Hives Drug Allergy Active Penicillin (For Allergies Use Only) Anaphylaxis Drug Aller gy Active simvastatin Zocor([facility] Code:[address]-60) Hives Drug Allergy Active Glucophage Hives Drug Allergy Active cephalexin Keflex([facility] Code:[address]-65) hives Drug Allergy Active Latex (for allergy use only) Anaphylaxis Drug Allergy Active atorvastatin Lipitor([facility] Code:[address]-26) Hives Drug Allergy Active Fresh Pineapple swollen lips/ sores in mouth Non Drug Josué rgy Active fenofibrate Tricor([facility] Code:[address]-58) Hives Drug Allergy Active ENCOUNTERS from 1969 to 2020-09-09 Encounter Location Date Provider Diagnosis [facility] [address] [place] [id number] 30 Jul, 2020 Tiffany Hogue Sebaceous cyst of skin [...] with diabetic chronic kidney disease E11.22 and halfway (current) use of insulin Z79.4 IMMUNIZATIONS Vaccine Route Administration Date Status Toradol [...] 0 Language: Question Answer Notes Languages spoken: Ethiopian Anabaptist: Question Answer Notes Anabaptist 33 None Sexual Hx: Question Answer Notes [...] FOR REFERRAL No Information VITAL SIGNS Weight 255.0 lbs Jul, Weight-kg 115.67 kg Jul, Height 70 in Jul, BMI 36.58 kg/m2 Jul, Heart Rate 101 /min Jul, Respiratory Rate 18 /min Jul, Temperature 98.7 degrees Fahrenheit Jul, Oximetry 97 Jul, Blood pressure systolic 137 mm Hg Jul, Blood pressure diastolic 78 mm Hg Jul, MEDICATIONS Medication SIG (Take, Route, Frequency, Duration) Notes Start Da te End Date Status Humalog KwikPen 200 UNIT/ML as directed Subcutaneous T ID per sliding scale; max daily #40 units Active ProAir HFA 108 (90 Base) MCG/ACT 2 puffs as needed Inhalation ev agustina 6 hrs May, Active Valacyclovir HCl 1 GM 1 tablet Orally every 24 hrs Active TraZODone HCl 100 MG 2 tablets orally Once a day at hs Active Cyclobenzaprine HCl 10 MG 1 tab Orally Three times a day prn mus telly spasms May, Active Lyrica 300 MG 1 capsule Orally Twice a day (pain clinic) Active Xopenex 1.25 MG/3ML 3 ml Inhalation Every 6 hours as needed Active Wheelchair - as directed Power wheelchair; Dx M54.41, G56.21, Z89.512, M62.81 Apr, Active Clobetasol Propionate 0.05 % 1 application to affected area Externally twice a day to scalp Jul, Active Wheelchair - as directed Dx Z89.51, M54.41 Jan, Active Ropinirole HCl 2 MG 1 tablet at 8 pm and at midnight Orally BID May, Active Levofloxacin 250 MG 1 tablet Orally twice a day for 14 day(s) Jul, Not-Taking AmLODIPine Besylate 2.5 MG 1 tablet Orally Once a day 27 2019 Not-Taking Singulair 10 MG 1 tablet Orally Once a day Active Refresh 1 % 1 drop into affected eye as needed Ophth almic four times daily prn Active Misc. Devices - as directed Repair and repla ce prosthetic and liners as needed; Dx Z89.51 Jan, Active Nystatin Powder 963824 UNIT powder Externally to bilat eral berast and abd pannus daily as needed daily for 30 days Active Cetirizine HCl 10 MG 1 tablet Orally Once a day Jan, Active Lunesta 3 MG 1 tablet immediately before bedtime Orally Once a day May, Not-Taking May Use - wheel chair dx code Z89.512 _ for 99 months Jan, Active Eliquis 5 MG 1 tablet Orally BID Act gonzales Cholecalciferol 53466 UNIT 1 capsule Orally once a week on Jun, Active Dexilant 60 MG 1 capsule Orally Once a day May, Active Tamsulosin HCl 0.4 MG Orally Daily HS Active Rosuvastatin Calcium 10 MG 1 tablet Orally Once a day 14 2017 Active Cymbalta 60 MG 2 capsuleS Orally daily May, Active BD Pen Mini - as directed E11.9 qid for 30 day(s) May, Active Bactroban 2% as directed applied topically twice a day Jul, Active Tresiba 200 U/mL 320 units subcutaneously daily Active FreeStyle Dwight 14 Day Sensor - as directed Dx E11.9 2019 Active Methylphenidate HCl ER (LA) 20 MG 1 capsule in the morning Orall y Once a day Jun, Active Betamethasone Valerate 0.1 % 1 application to affected area Externally Once a day Jan, Active Hibiclens 4 % as directed Externally twice a day Jul, 019 Active Torsemide 20 MG 2 tab Orally Daily for 90 days Active Zofran 8 MG 1 tab PRN nausea Orally every 12 hours Jun, Active Probiotic - Orally Active Hydrocodone-Acetaminophen 10-325 MG 1 tablet as needed Orally every 4 hrs Active Ketoconazole 2 % 5 applications to scalp Exte rnally Once a day and let sit for 5 minutes Jul, Active Pen [place] 3/16" 31G X 5 MM as directed 5 times daily Aug, Active Symbicort 80-4.5 MCG/ACT 2 puffs Inhalation Twice a day May, Active EpiPen 0.3 MG/0.3ML 1 injection Injection As nee ded for allergic reaction for 30 day(s) Active Collagen Ultra - 1 cap Orally Daily May, Active Restasis 0.05 % 1 drop into affected eye Ophthalmic three times a day Active Magnesium Chloride 64 MG 1 tablet Orally Daily May, 9 Active PROCEDURES No Information RESULTS No Results REASON FOR VISIT R and L breast f/u , imaging done MEDICAL (GENERAL) HISTORY Type Description Date Medical [...] intervention Medical History Hx urinary retention - [facility] Urology Medical History Hx Wynn's Palsy [...] Notes Treatment Notes Treatm ent Clinical Notes Jul, Sebaceous cyst of skin of left breast (ICD-10 - N60.82) Left breast 3-4:00 lesion is smaller comparing to previous size on clinical breast exam and on the repeat ultrasound of the left breast. This is most likely consistent with healing information from sebaceous cyst in this location. Patient improved from the previous antibiotics however due to lesion completely did not resolve yet. I offer patient another course of antibiotics. This time I placed her on Levaquin 250 milligrams for 14 days. I will see her on August 29 for reevaluation. We briefly discussed that we may need to pursue excisional biopsy for punch biopsy of the area inflammation still persist. Jul, Breast mass, right (ICD-10 - N63.10) Right [...] right breast will be ordered for May. Jul, Breast pain, right (ICD-10 - N64.4) We previously discussed potential causes of right breast pain. Patient was advised to use supportive bra decrease caffeine intake and try some of the supplements to alleviate the Right breast pain Jul, Palpable lymph node (ICD-10 - R59.9) Patient has palpable lymph nodes in the right axilla. This was evaluated with a formal sonography of the axillary region. No abnormal lymph nodes were appreciated on the ballistics professor. I provided patient with a copy of that report Jul, Skin lesion (ICD-10 - L98.9) Patient previously [...] we can schedule her for excisional biopsy Jul, Large breasts (ICD-10 - N62) Patient reported that her right breast good bigger than the left one. Her diagnostic mammograms did not show any suspicious abnormalities. She is unable to get MRI of the breast due to her chronic kidney disease. It is possible that the enlargement of the breast is due to obesity and ptosis of the breast. No acute surgical intervention warranted at this time Jul, Discharge from right nipple (ICD-10 - N64.52) Patient reported right nipple discharge. She had the niipple discharge only twice. Once it was yelloowish. Second time patient thinks it might have [...] me in she sees new nipple discharge. Jul, Hx of deep venous thrombosis (ICD-10 - Z86.718) Patient is on Eliquis. This will need to be stopped prior to any invasive procedure. Jul, Family history of cancer (ICD-10 - Z80.9) Patient participated in our Cancer screening program, Cancer IQ and she was not found to be at increased risk for cancer base on her family history. She does not qualify for genetic testing or high risk screening with MRI of the breast base on her family history. Jul, Ulcerative colitis with comp lication, unspecified location (ICD-10 - K51.919) Jul, Chronic kidney disease, unspecified CKD stage (I CD-10 - N18.9) Unable to have MRI. We checked with the nephrology team. Jul, Type 2 diabetes mellitus wit h diabetic chronic kidney disease (ICD- 10 - E11.22) Jul, halfway (current) use of insulin (ICD-10 - Z79 .4) PLAN OF TREATMENT Treatment Notes Assessment Notes Clinical Notes Sebaceous cyst of skin of left breast Left breast 3-4: 00 lesion is smaller comparing to previous size on clinical breast exam and on the repeat ultrasound of the left breast. This is most likely consistent with healing information from sebaceous cyst in this location.Patient improved from the previous antibiotics however due to lesion completely did not resolve yet.I offer patient another course of antibiotics. This time I placed her on Levaquin 250 milligrams for 14 days.I will see her on August 29 for reevaluation. We briefly discussed that we may need to pursue excisional biopsy for punch biopsy of the area inflammation still persist. Breast mass, right Right breast mass located [...] Right breast pain Palpable lymph node Patient has palpable lymph n odes in the right axilla. This was evaluated with a formal sonography of the axillary region. No abnormal lymph nodes were appreciated on the ballistics professor. I provided patient with a copy of that report Skin lesion Patient previously reported right axillary [...] schedule her for excisional biopsy Large breasts Patient reported that her ri ght breast good bigger than the left one. Her diagnostic mammograms did not show any suspicious abnormalities. She is unable to get MRI of the breast due to her chronic kidney disease.It is possible that the enlargement of the breast is due to obesity and ptosis of the breast.No acute surgical intervention warranted at this time Discharge from right nipple Patient reported right nip ple discharge. She had the niipple discharge only twice. Once it was yelloowish. Second time patient thinks it might have [...] MRI. We checked with the nephrology team. Future Test Test Name Order Date [facility] Kale Diagnostic Bilateral (Ultrasound if Indicate d) (3D Mammo) [id number] Breast U/S Unilateral Limited [id number] Next Appt Details Provider Name:Mireille Quijano, 2020-09-15 08:00:00 AM, [address] [place], [address], Provider Name:Yung Reis, 08:15:00 AM, [address] [place], [address], Provider Name:Tiffany Hogue, 06-11-14 01:30:00 PM, [address] [place], [address], Provider Name:Tiffany Hogue, 06-06-27 01:00:00 PM, [address] [place], [place], [id number], Insurance Providers Payer Name Payer Address Payer Phone Insured Name Patient Relati onship to Insured Coverage Start Date Coverage End Date [facility] [id number] [facility] [id number] JOSS FORD self 2014
--- OUTSIDE RECORDS SUMMARY | 2020-11-17 18:48 | CCD ---
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 Active 448884451 Problem Lumbago with sciatica, right side M54.41 Active 014720763 Problem Primary insomnia F51.01 Active 7032258 Problem Intervertebral disc disorders with radiculopathy , lumbar region M51.16 Active 836745819189559 Problem Intervertebral disc disorders with radiculopathy , lumbosacral region M51.17 Active 87975438597488626 Problem Essential hypertension I10 Active 12778938 Problem MRSA (methicillin resistant Staphylococcus aureus) carrier Z22.322 Active 423548962 Problem CKD stage 3 due to type 2 diabetes mellitus E11.22 Active 172319436261 Problem Lesion of ulnar nerve, left upper limb G56.22 Active 978524519771001 Problem Nocturnal leg cramps G47.62 Active 815622850 Problem Type 2 diabetes mellitus with foot ulcer E11.621 Active 837326927 Problem History of ischemic colitis Z87.19 Active 1099 713156144975 Problem Gastroparesis K31.84 Active 325122594 Problem Restless leg syndrome G25.81 Active 76760615 Problem Pulmonary emphysema, unspecified emphysema type J4 3.9 Active 09081517 Problem Factor V Leiden D68.51 Active 112247036 Problem Status post below-knee amputation of left lower extremity Z89.512 Active 279925846708905 Problem Seasonal allergic rhinitis due to pollen J30.1 Active 47991789 Problem Lesion of ulnar nerve, right upper limb G56.21 Active 255602887491972 Problem Bipolar disorder, current episode manic w/o psyc hotic features, mild F31.11 Active 871277864 Problem Age-related nuclear cataract, right eye H25.11 Active 142143077515185 Problem Panic disorder F41.0 Active 366284386 Problem Age-related nuclear cataract, left eye H25.12 Active 170929695461483 Problem Type 2 diabetes mellitus with other circulatory compli cations E11.59 Active 66706537 Problem 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 9 Active 212592307 Problem Type 2 diabetes mellitus with diabetic chronic kidney disease E11.22 Active 32001651 Problem Ulcerative colitis with complication, unspecified location K51.919 Active 44337243 Problem History of diabetes mellitus Z86.39 Active 161 879664 Problem Carpal tunnel syndrome of right wrist G56.01 Ac tive 659498506245300 Problem buttermaker current use of anticoagulant Z79.01 A ctive 526156291 Problem History of MRSA infection Z86.14 Active 448419 000 Problem Cigarette nicotine dependence with other nicotin e-induced disorder F17.218 Active 70053724722691743 Problem Recurrent deep venous thrombosis I82.409 Active 953959400 Problem GERD (gastroesophageal reflux disease) K21.9 A ctive 638101758 Problem PA (obstructive sleep apnea) G47.33 Active 78 450467 Problem 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 Active 92447897 Problem Sebaceous cyst of skin of left breast N60.82 Ac tive 04763593 Problem Anticoagulant long-term use Z79.01 Active 7111 17210 Problem senior living (current) use of insulin Z79.4 Activ e 318220270 Problem Below knee amputation S88.119A Active 442118047 Problem History of factor V Leiden mutation Z86.2 Acti ve 278540837 ALLERGIES Allergen (clinical drug ingredient) Drug/Non Drug Allergy do cumented on EMR Reaction Allergy Type Onset Date Status Sulfa (for allergy use only) Hives Drug Allergy Active Penicillin (For Allergies Use Only) Anaphylaxis Drug Aller gy Active simvastatin Zocor([facility] Code:[address]-10) Hives Drug Allergy Active Glucophage Hives Drug Allergy Active cephalexin Keflex([facility] Code:[address]-67) hives Drug Allergy Active Latex (for allergy use only) Anaphylaxis Drug Allergy Active atorvastatin Lipitor([facility] Code:[address]-60) Hives Drug Allergy Active Fresh Pineapple swollen lips/ sores in mouth Non Drug Josué rgy Active fenofibrate Tricor([facility] Code:[address]-09) Hives Drug Allergy Active ENCOUNTERS from 1969 to 2020-09-09 Encounter Location Date Provider Diagnosis [facility] [address] [place] [address] 13 Aug, 2020 Tiffany Hogue Sebaceous cyst of skin [...] with diabetic chronic kidney disease E11.22 and senior living (current) use of insulin Z79.4 IMMUNIZATIONS Vaccine [...] Education Language: Question Answer Notes Languages spoken: Lithuanian Islam: Question Answer Notes Islam 33 None Sexual Hx: Question Answer Notes [...] FOR REFERRAL No Information VITAL SIGNS Weight 267 lbs Aug, Weight-kg 121.11 kg Aug, Height 70 in Aug, BMI 38.31 kg/m2 Aug, Heart Rate 86 /min Aug, Respiratory Rate 18 /min Aug, Oximetry 100 Aug, Blood pressure systolic 138 mm Hg Aug, Blood pressure diastolic 68 mm Hg Aug, MEDICATIONS Medication SIG (Take, [...] MG 1 tablet Orally Once a day 2019 Not-Taking Singulair 10 MG 1 tablet Orally Once a day Active Refresh 1 % 1 drop into affected eye as needed Ophth almic four times daily prn Active Misc. Devices - as directed Repair and repla ce prosthetic and liners as needed; Dx Z89.51 Jan, Active Nystatin Powder 147562 UNIT powder Externally to bilat eral berast [...] 1 tablet Orally BID Act gonzales Cholecalciferol 46120 UNIT 1 capsule Orally once a week [...] sit for 5 minutes Jul, Active Pen [place] 3/16" 31G X 5 MM as directed [...] Information RESULTS No Results REASON FOR VISIT L breast check MEDICAL (GENERAL) HISTORY Type Description Date Medical [...] mellitus wit h other circulatory complications - [place] Medical History Hx recto-sigmoid ischemic co litis 03/2018 confirmed by sigmoid c bx-Jaylin, msesnteric arteriogram s intervention Medical History Hx urinary retention - [facility] Urology Medical History Hx Wynn's Palsy [...] Treatment Notes Treatm ent Clinical Notes Aug, Sebaceous cyst of skin of left breast (ICD-10 - N60.82) Patient was treated with a course of Keflex and then another course of Levaquin. The left breast lesion is smaller which was confirmed on formal sono previously. I will give this lesion a little more time to resolve. If still persistent on next follow up in October 2020 we will consider punch biopsy as patient has numerous skin lesions in the past of unknown etiology. She is on anticoagulation and this will need to be held is ok with ordering provider prior to bx. All questions were answered. Patient agrees with the plan. Aug, Breast mass, right (ICD-10 - N63.10) Right [...] right breast will be ordered for May. Aug, Breast pain, right (ICD-10 - N64.4) We previously discussed potential causes of right breast pain. Patient was advised to use supportive bra decrease caffeine intake and try some of the supplements to alleviate the Right breast pain Aug, Palpable lymph node (ICD-10 - R59.9) Patient has palpable lymph nodes in the right axilla. This was evaluated with a formal sonography of the axillary region. No abnormal lymph nodes were appreciated on the aircraft launch and recovery technician. I provided patient with a copy of that report Aug, Skin lesion (ICD-10 - L98.9) Patient previously [...] we can schedule her for excisional biopsy Aug, Large breasts (ICD-10 - N62) Patient reported [...] acute surgical intervention warranted at this time Aug, Discharge from right nipple (ICD-10 - N64.52) [...] me in she sees new nipple discharge. Aug, Hx of deep venous thrombosis (ICD-10 - Z86.718) Patient is on Eliquis. This will need to be stopped prior to any invasive procedure. Aug, Family history of cancer (ICD-10 - Z80.9) Patient participated in our Cancer screening program, Cancer IQ and she was not found to be at increased risk for cancer base on her family history. She does not qualify for genetic testing or high risk screening with MRI of the breast base on her family history. Aug, Ulcerative colitis with comp lication, unspecified location (ICD-10 - K51.919) Aug, Chronic kidney disease, unspecified CKD stage (I CD-10 - N18.9) Unable to have MRI. We checked with the nephrology team. Aug, Type 2 diabetes mellitus wit h diabetic chronic kidney disease (ICD- 10 - E11.22) Aug, buttermaker (current) use of insulin (ICD-10 - Z79 .4) PLAN OF TREATMENT Treatment Notes Assessment Notes Clinical Notes Sebaceous cyst of skin of left breast Patient was yahir tracy with a course of Keflex and then another course of Levaquin. The left breast lesion is smaller which was confirmed on formal sono previously.I will give this lesion a little more time to resolve. If still persistent on next follow up in October 2020 we will consider punch biopsy as patient has numerous skin lesions in the past of unknown etiology.She is on anticoagulation and this will need to be held is ok with ordering provider prior to bx.All questions were answered. Patient agrees with the [...] abnormal lymph nodes were appreciated on the aircraft launch and recovery technician. I provided patient with a copy of [...] the nephrology team. Next Appt Details Provider Name:Mireille Cool Macie, 2020-09-15 08:00:00 AM, [address] [place] [address], [phone], Provider Name:Yung Reis, 08:15:00 AM, [address] [place], [address], Provider Name:Tiffany Hogue, 06-11-14 01:30:00 PM, [address] [place] [address], [id number], Provider Name:Tiffany Hogue, 06-06-27 01:00:00 PM, [address] [place] [address], [id number], Insurance Providers Payer Name Payer Address Payer Phone Insured Name Patient Relati onship to Insured Coverage Start Date Coverage End Date [facility] [id number] [facility] [phone] JOSS FORD self 2013
--- OUTSIDE RECORDS SUMMARY | 2020-11-17 18:48 | CCD ---
Author Author [facility] Organization 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 Active 134185882 Problem Lumbago with sciatica, right side M54.41 Active 844507554 Problem Primary insomnia F51.01 Active 1889328 Problem Intervertebral disc disorders with radiculopathy , lumbar region M51.16 Active 490498807494643 Problem Intervertebral disc disorders with radiculopathy , lumbosacral region M51.17 Active 06048817317647679 Problem Essential hypertension I10 Active 21117231 Problem MRSA (methicillin resistant Staphylococcus aureus) carrier Z22.322 Active 769081146 Problem CKD stage 3 due to type 2 diabetes mellitus E11.22 Active 403013716490 Problem Lesion of ulnar nerve, left upper limb G56.22 Active 707312642759341 Problem Nocturnal leg cramps G47.62 Active 420911184 Problem Type 2 diabetes mellitus with foot ulcer E11.621 Active 839855200 Problem History of ischemic colitis Z87.19 Active 1099 000865067896 Problem Gastroparesis K31.84 Active 238704679 Problem Restless leg syndrome G25.81 Active 62900390 Problem Pulmonary emphysema, unspecified emphysema type J4 3.9 Active 79709208 Problem Factor V Leiden D68.51 Active 589710666 Problem Status post below-knee amputation of left lower extremity Z89.512 Active 375056346128923 Problem Seasonal allergic rhinitis due to pollen J30.1 Active 48189937 Problem Lesion of ulnar nerve, right upper limb G56.21 Active 191606841551375 Problem Bipolar disorder, current episode manic w/o psyc hotic features, mild F31.11 Active 179089776 Problem Age-related nuclear cataract, right eye H25.11 Active 813415185972426 Problem Panic disorder F41.0 Active 154152274 Problem Age-related nuclear cataract, left eye H25.12 Active 981157424002947 Problem Type 2 diabetes mellitus with other circulatory compli cations E11.59 Active 88886337 Problem 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.22 Active 68561664 Problem Ulcerative colitis with complication, unspecified location K51.919 Active 84305894 Problem History of diabetes mellitus Z86.39 Active 161 664754 Problem Carpal tunnel syndrome of right wrist G56.01 Ac tive 984653688359316 Problem [facility] current use of anticoagulant Z79.01 A ctive 916058934 Problem History of MRSA infection Z86.14 Active 207442 000 Problem Cigarette nicotine dependence with other nicotin e-induced disorder F17.218 Active 98804744080935922 Problem Recurrent deep venous thrombosis I82.409 Active 180852600 Problem GERD (gastroesophageal reflux disease) K21.9 A ctive 998146523 Problem PA (obstructive sleep apnea) G47.33 Active 78 303820 Problem 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 Active 16785238 Problem Sebaceous cyst of skin of left breast N60.82 Ac tive 65775265 Problem Anticoagulant long-term use Z79.01 Active 7111 41953 Problem buttermaker helper (current) use of insulin Z79.4 Activ e 714298255 Problem Below knee amputation S88.119A Active 159385964 Problem History of factor V Leiden mutation Z86.2 Acti ve 228511138 ALLERGIES Allergen (clinical drug ingredient) Drug/Non Drug Allergy do cumented on EMR Reaction Allergy Type Onset Date Status Sulfa (for allergy use only) Hives Drug Allergy Active Penicillin (For Allergies Use Only) Anaphylaxis Drug Aller gy Active simvastatin Zocor([facility] Code:[address]-94) Hives Drug Allergy Active Glucophage Hives Drug Allergy Active cephalexin Keflex([facility] Code:[address]-12) hives Drug Allergy Active Latex (for allergy use only) Anaphylaxis Drug Allergy Active atorvastatin Lipitor([facility] Code:[address]-53) Hives Drug Allergy Active Fresh Pineapple swollen lips/ sores in mouth Non Drug Ojsué rgy Active fenofibrate Tricor([facility] Code:[address]-74) Hives Drug Allergy Active ENCOUNTERS from 1969 to 2020-09-08 Encounter Location Date Provider Diagnosis [facility] [address] [place] [address] 10 Aug Yung Reis Type 2 diabetes mellitus with foot ulcer E11.621 and Non-pressure chronic ulcer of right heel and midfoot with fat layer exposed L97.412 IMMUNIZATIONS Vaccine Route Administration Date Status Toradol [...] Education Language: Question Answer Notes Languages spoken: Tuvaluan Baptism: Question Answer Notes Baptism 33 None Sexual Hx: Question Answer Notes [...] FOR REFERRAL No Information VITAL SIGNS Weight 266 lbs Aug, Height 70 in Aug, BMI 38.16 kg/m2 Aug, Heart Rate 85 /min Aug, Respiratory Rate 16 /min Aug, Temperature 97.8 degrees Fahrenheit Aug, Oximetry 99 Aug, Blood pressure systolic 163 mm Hg Aug, Blood pressure diastolic 77 mm Hg Aug, MEDICATIONS Medication SIG (Take, [...] needed; Dx Z89.51 Jan, Active Nystatin Powder 755185 UNIT powder Externally to bilat eral berast and abd pannus daily as needed daily for 30 days Active Cetirizine HCl 10 MG 1 tablet Orally Once a day Jan, 15 Active Lunesta 3 MG 1 tablet immediately before bedtime Orally Once a day May, Not-Taking May Use - wheel chair dx code Z89.512 _ for 99 months Jan, Active Eliquis 5 MG 1 tablet Orally BID Act gonzales Cholecalciferol 71239 UNIT 1 capsule Orally once a week [...] sit for 5 minutes Jul, Active Pen [place] 3/16" 31G X 5 MM as directed [...] tablet Orally Daily May, 9 Active PROCEDURES Procedure Date Ordered Result Body Site LIDOCAINE 4% CREAM TOPICAL 2020-08-26 N/A RESULTS No Results REASON FOR VISIT RLE WOUNDS MEDICAL (GENERAL) HISTORY Type Description Date Medical [...] mellitus wit h other circulatory complications - [place] Medical History Hx recto-sigmoid ischemic co litis 03/2018 confirmed by sigmoid c bx-Jaylin, msesnteric arteriogram s intervention Medical History Hx urinary retention - [facility] Urology Medical History Hx Wynn's Palsy [...] L97.412) PLAN OF TREATMENT Next Appt Details 1 Week Reason: Provider Name:Mireille Quijano, 2020-09-15 08:00:00 AM, [address] [place], [address], Provider Name:Yung Reis, 08:15:00 AM, [address] [place], [address], Provider Name:Tiffany Hogue, 06-11-14 01:30:00 PM, [address] [place] [address], [phone], Provider Name:Tiffany Hogue, 06-06-27 01:00:00 PM, [address] [place] [address], [phone], Insurance Providers Payer Name Payer Address Payer Phone Insured Name Patient Relati onship to Insured Coverage Start Date Coverage End Date [facility] [address] [facility] [phone] JOSS FORD 2013
--- OUTSIDE RECORDS SUMMARY | 2020-11-17 18:49 | CCD ---
Author Author [facility] Organization [facility] Address Unknown Phone Unavailable Care Team Providers Care Cycle Specialist Name Role Phone Mireille Quijano Unavailable PROBLEMS Type Condition ICD9-CM Code [id number] Code Onset Dates Condition S tatus SNOMED Code Notes Problem Iron deficiency anemia, unspecified iron deficiency an emia type D50.9 Active 01271315 Problem Nocturnal leg cramps G47.62 Active 088259332 Problem Restless leg syndrome G25.81 Active 48240111 Problem Other chronic pain G89.29 Active 82115579 Problem Gastroparesis K31.84 Active 355822066 Problem 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 Active 561158351 Problem Lumbago with sciatica, right side M54.41 Active 672478051 Problem Age-related nuclear cataract, right eye H25.11 Active 907758006853791 Problem Panic disorder F41.0 Active 555671560 Problem Age-related nuclear cataract, left eye H25.12 Active 832553683360028 Problem Type 2 diabetes mellitus with other circulatory compli cations E11.59 Active 12273510 Problem History of ischemic colitis Z87.19 Active 1099 214265482863 Problem Mixed hyperlipidemia E78.2 Active 921732509 Problem Cigarette nicotine dependence with other nicotin e-induced disorder F17.218 Active 78296569077933117 Problem Intervertebral disc disorders with radiculopathy , lumbosacral region M51.17 Active 41213353356876724 Problem PA (obstructive sleep apnea) G47.33 Active 78 402502 Problem 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 Active 63028144 Problem Carpal tunnel syndrome of right wrist G56.01 Ac tive 869218270928931 Problem [facility] current use of anticoagulant Z79.01 A ctive 602227962 Problem Factor V Leiden D68.51 Active 017506641 Problem [facility] (current) use of insulin Z79.4 Activ e 797279548 Problem Pulmonary emphysema, unspecified emphysema type J4 3.9 Active 18726679 Problem GERD (gastroesophageal reflux disease) K21.9 A ctive 262414153 Problem Status post below-knee amputation of left lower extremity Z89.512 Active 754149777422714 Problem Seasonal allergic rhinitis due to pollen J30.1 Active 00390249 Problem Lesion of ulnar nerve, right upper limb G56.21 Active 779929144063783 Problem Bipolar disorder, current episode manic w/o psyc hotic features, mild F31.11 Active 950317900 Problem Non-pressure chronic ulcer o f other part of unspecified foot with unspecified severity L97.509 Active 117343135 Problem 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 L97.412 Active 088171694 Problem Type 2 diabetes mellitus with foot ulcer E11.621 Active 740931322 Problem Sebaceous cyst of skin of left breast N60.82 Ac tive 20655087 Problem Primary insomnia F51.01 Active 4191356 Problem Anticoagulant long-term use Z79.01 Active 7111 53832 Problem Intervertebral disc disorders with radiculopathy , lumbar region M51.16 Active 729878712977780 Problem Essential hypertension I10 Active 22445249 Problem MRSA (methicillin resistant Staphylococcus aureus) carrier Z22.322 Active 313406232 Problem CKD stage 3 due to type 2 diabetes mellitus E11.22 Active 130672680855 Problem Lesion of ulnar nerve, left upper limb G56.22 Active 840078007829802 Problem Chronic kidney disease, unspecified CKD stage N18. 9 Active 101556343 Problem Recurrent deep venous thrombosis I82.409 Active 008673617 Problem Type 2 diabetes mellitus with diabetic chronic kidney disease E11.22 Active 00599884 Problem Ulcerative colitis with complication, unspecified location K51.919 Active 69595126 ALLERGIES Allergen (clinical drug ingredient) Drug/Non Drug Allergy do cumented on EMR Reaction Allergy Type Onset Date Status Sulfa (for allergy use only) Hives Drug Allergy Active Penicillin (For Allergies Use Only) Anaphylaxis Drug Aller gy Active simvastatin Zocor(NDC Code:[address]-83) Hives Drug Allergy Active Glucophage Hives Drug Allergy Active cephalexin Keflex([facility] Code:[address]-43) hives Drug Allergy Active Latex (for allergy use only) Anaphylaxis Drug Allergy Active atorvastatin Lipitor([facility] Code:[address]-16) Hives Drug Allergy Active Fresh Pineapple swollen lips/ sores in mouth Non Drug Josué rgy Active fenofibrate Tricor([facility] Code:[address]-00) Hives Drug Allergy Active ENCOUNTERS from 1969 to 2020-08-26 Encounter Location Date Provider Diagnosis [address] [address] Aug, Mireille Quijano Pre-op evaluation Z01.818 ; Age-related nuclear cataract, right eye H25.11 ; Age-related nuclear cataract, left eye H25.12 ; Lesion of ulnar nerve, left upper limb G56.22 ; Type 2 diabetes mellitus with other circulatory complications E11.59 ; [facility] (current) use of insulin Z79.4 ; CKD stage 3 due to type 2 diabetes mellitus E11.22 ; Essential hypertension I10 ; Recurrent deep venous thrombosis I82.409 ; intermediate manager current use of anticoagulant Z79.01 ; PA (obstructive sleep apnea) G47.33 ; Pulmonary emphysema, unspecified emphysema type J43.9 ; 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 ; GERD (gastroesophageal reflux disease) K21.9 ; Mixed hyperlipidemia E78.2 ; Iron deficiency anemia, unspecified iron deficiency anemia type D50.9 ; Restless leg syndrome G25.81 ; Cigarette nicotine dependence with other nicotine-induced disorder F17.218 ; Lumbago with sciatica, right side M54.41 ; Primary insomnia F51.01 and Seasonal allergic rhinitis due to pollen J30.1 IMMUNIZATIONS Vaccine Route Administration Date Status Toradol [...] Education Language: Question Answer Notes Languages spoken: Maldivian Congregational: Question Answer Notes Congregational 33 None Sexual Hx: Question Answer Notes [...] Aug, BMI 38.16 kg/m2 Aug, Heart Rate 93 /min Aug, Respiratory Rate 18 /min Aug, Temperature 97.7 degrees Fahrenheit Aug, Oximetry 100 Aug, Blood pressure systolic 122 mm Hg Aug, Blood pressure diastolic 74 mm Hg Aug, MEDICATIONS Medication SIG (Take, Route, Frequency, Duration) Start Date En d Date Status Tamsulosin HCl 0.4 MG Orally Daily HS Ac tive FreeStyle Dwight 14 Day Sensor - as directed Dx E11.9 Nov, Active Bactroban 2% as directed applied topically twice a day Jul, Active Tresiba 200 U/mL 160 units subcutaneously daily Active Xopenex 1.25 MG/3ML 3 ml Inhalation Every 6 hours as needed Active EpiPen 0.3 MG/0.3ML 1 injection Injection As nee ded for allergic reaction for 30 day(s) Active Lunesta 3 MG 1 tablet immediately before bedtime Orally Once a day May, Active Dexilant 60 MG 1 capsule Orally Once a day May, Active Humalog KwikPen 200 UNIT/ML as directed Subcutaneous T ID per sliding scale; max daily #40 units Active Cetirizine HCl 10 MG 1 tablet Orally Once a day Jan, Active Methylphenidate HCl ER (LA) 20 MG 1 capsule in the morning O rally Once a day Jun, Active TraZODone HCl 100 MG 2 tablets orally Once a day at hs Active Wheelchair - as directed Power wheelchair; Dx M54.41, G56.21, Z89.512, M62.81 Apr, Active Symbicort 80-4.5 MCG/ACT 2 puffs Inhalation Twice a day May, 9 Active Cymbalta 60 MG 2 capsuleS Orally daily May, Ac tive Clobetasol Propionate 0.05 % 1 application to affected area Externally twice a day to scalp Jul, Active Cholecalciferol 73603 UNIT 1 capsule Orally once a week on Jun, Active Torsemide 20 MG 2 tab Orally Daily for 90 days Active Rosuvastatin Calcium 10 MG 1 tablet Orally Once a day Dec, Active Levofloxacin 250 MG 1 tablet Orally twice a day for 14 day(s) 30 Oc 2019 Active Hibiclens 4 % as directed Externally twice a day Jul, Active Pen [place] 3/16" 31G X 5 MM as directed 5 times daily Aug, Active AmLODIPine Besylate 2.5 MG 1 tablet Orally Once a day Oct, Active Hydrocodone-Acetaminophen 10-325 MG 1 tablet as needed Orally every 4 hrs Active Cyclobenzaprine HCl 10 MG 1 tab Orally Three times a day prn muscle spasms May, Active ProAir HFA 108 (90 Base) MCG/ACT 2 puffs as needed Inhalatio n every 6 hrs May, Active Betamethasone Valerate 0.1 % 1 application to affected area Externally Once a day Jan, Active Wheelchair - as directed Dx Z89.51, M54.41 Jan, Active Singulair 10 MG 1 tablet Orally Once a day Active BD Pen Mini - as directed E11.9 qid for 30 day(s) May, Active May Use - wheel chair dx code Z89.512 _ for 99 months Jan, 19 Active Lyrica 300 MG 1 capsule Orally Twice a day (pain clinic) Active Eliquis 5 MG 1 tablet Orally BID Active Probiotic - Orally Active Ketoconazole 2 % 5 applications to scalp Exte rnally Once a day and let sit for 5 minutes Jul, Active Misc. Devices - as directed Repair and repla ce prosthetic and liners as needed; Dx Z89.51 Jan, Active Valacyclovir HCl 1 GM 1 tablet Orally every 24 hrs Active Refresh 1 % 1 drop into affected eye as needed Ophth almic four times daily prn Active Nystatin Powder 015877 UNIT powder Externally to bilat eral berast and abd pannus daily as needed daily for 30 days Active Zofran 8 MG 1 tab PRN nausea Orally every 12 hours Jun, Active Collagen Ultra - 1 cap Orally Daily May, Activ e Ropinirole HCl 2 MG 1 tablet at 8 pm and at midnight Orally BID May, Active Magnesium Chloride 64 MG 1 tablet Orally Daily May, Active Restasis 0.05 % 1 drop into affected eye Ophthalmic three times a d ay Active PROCEDURES No Information RESULTS No Results REASON FOR VISIT Preoperative evaluation for right and left cataract surgery on 08/28/[address] Bernard at [facility]; Surgeon's fax# [phone]; Dx H25.11, H25.1 2, Preoperative evaluation for left ulnar nerve decompression on 10/09/2020 at [facility] by Dr. Rizvi; surgeon's fax#[phone], Dx G56.22 MEDICAL (GENERAL) HISTORY Type Description Date Medical [...] Chronic back pain, thoracic DDD - Dr. Li ttell Medical History Temporal Lobe Seizures in 1990s, [...] intervention Medical History Hx urinary retention - [facility] Urology Medical History Hx Wynn's [...] History EGD - normal; Dr. Mosqueda 10/2018 Hospitalization History sepsis, L foot ulcer, suspected [...] STATUS No Information ASSESSMENTS Encounter Date Diagnosis Notes Aug, Type 2 diabetes mellitus wit h other circulatory complications (ICD- 10 - E11.59) Aug, Iron deficiency anemia, unsp ecified iron deficiency anemia type (ICD-10 - D50.9) Aug, Lesion of ulnar nerve, left upper limb ( ICD-10 - G56.22) Aug, Mixed hyperlipidemia (ICD-10 - E78.2) Aug, CKD stage 3 due to type 2 diabetes melli tus (ICD-10 - E11.22) Aug, Cigarette nicotine dependenc e with other nicotine-induced disorder (ICD-10 - F17.218) Aug, intermediate manager (current) use of insulin (ICD- 10 - Z79.4) Aug, Restless leg syndrome (ICD-10 - G25.81) Aug, Pre-op evaluation (ICD-10 - Z01.818) Aug, Pulmonary emphysema, unspecified emphyse ma type (ICD-10 - J43.9) Aug, PA (obstructive sleep apnea) (ICD-10 - G47.33) Aug, Age-related nuclear cataract, left eye ( ICD-10 - H25.12) Aug, GERD (gastroesophageal reflux disease) ( ICD-10 - K21.9) Aug, Age-related nuclear cataract, right eye (ICD-10 - H25.11) Aug, CVID (common variable immunodeficiency) (ICD-10 - D83.9) Aug, Essential hypertension (ICD-10 - I10) Aug, Lumbago with sciatica, right side (ICD-1 0 - M54.41) Aug, intermediate manager current use of anticoagulant ( ICD-10 - Z79.01) Aug, Seasonal allergic rhinitis due to pollen (ICD-10 - J30.1) Aug, Recurrent deep venous thrombosis (ICD-10 - I82.409) Aug, Primary insomnia (ICD-10 - F51.01) PLAN OF TREATMENT Treatment Notes Assessment Notes Clinical Notes Pre-op evaluation I discussed the risk s vs. benefits of surgery with the patient in generic terms. I feel that the patient is at average risk for perioperative complications. The patient knows that there is always some risk with surgery and that each individual has to make a decision regarding whether the benefits of surgery outweigh the risks in order to proceed. I advised the patient to direct further questions regarding the specifics of the proposed surgical procedure and specific risks to the surgeon. At this time I feel that the patient's acute and chronic medical conditions are sufficiently optimized to proceed with surgery.- Take 2/3 normal dose of Tresiba in 24 hours prior to surgery; hold Novolog when NPO- Ok to continue Eliquis for cataract surgery; Hold Eliquis 3 days prior to Ulnar nerve release. Age-related nuclear cataract, right eye Surgery is planned Age-related nuclear cataract, left eye S urgery is planned Lesion of ulnar nerve, left upper limb S urgery is planned Type 2 diabetes mellitus with other circulatory complication s Last A1c is uncontrolled but signficantly improved from A1c from a few weeks prior. I suspect A1c reflects higher glucose prior to patient making dietary changes after I did not clear her for surgery in early July. Recent glucose readings show improved glucose control; I strongly advised that she needs to work to maintain these readings between now and her upcoming surgeries - she verbalized understanding. She also verbalized understanding that elevated glucose could delay healing and increase her risk of infections. CKD stage 3 due to type 2 diabetes mellitus Last Cr/GFR at her baseline. 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 PA (obstructive sleep apnea) I encourag ed compliance with CPAP. Pulmonary emphysema, unspecified emphysema type No recent exacerbations. Cigarette nicotine dependence with other nicotine-induced di sorder I encouraged smoking cessation. Next Appt Details as sched 09/15 Reason: Provider Name:Tiffany Hogue, 05-09-13 04:00:00 PM, [address] [place] [address], [id number], Provider Name:Yung Reis, 08:00:00 AM, [address] [place] [address], [phone], Provider Name:Mireille Quijano, 2020-09-15 08:00:00 AM, [address] [place] [address], [phone], Provider Name:Tiffany Hogue, 06-06-27 01:00:00 PM, [address] [place] [address], [id number], Insurance Providers Payer Name Payer Address Payer Phone Insured Name Patient Relati onship to Insured Coverage Start Date Coverage End Date [facility] [place] [address] [facility] [id number] [phone] JOSS FORD self 2013
--- OUTSIDE RECORDS SUMMARY | 2020-11-17 18:49 | CCD ---
Author Author [facility] Organization [facility] Address Unknown Phone Unavailable Care Team Providers Care Corrugator Operator Helper Name Role Phone Figueroa Iraheta Unavailable PROBLEMS Type Condition ICD9-CM Code [id number] Code Onset Dates Condition S tatus SNOMED Code Notes Problem Iron deficiency anemia, unspecified iron deficiency an emia type D50.9 Active 32880224 Problem Nocturnal leg cramps G47.62 Active 348292423 Problem Restless leg syndrome G25.81 Active 77719739 Problem Other chronic pain G89.29 Active 07023051 Problem Gastroparesis K31.84 Active 381412161 Problem 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 Active 571602401 Problem Lumbago with sciatica, right side M54.41 Active 067511908 Problem Age-related nuclear cataract, right eye H25.11 Active 739791807544327 Problem Panic disorder F41.0 Active 337459106 Problem Age-related nuclear cataract, left eye H25.12 Active 551415950255909 Problem Type 2 diabetes mellitus with other circulatory compli cations E11.59 Active 15416102 Problem History of ischemic colitis Z87.19 Active 1099 565554176649 Problem Mixed hyperlipidemia E78.2 Active 923145365 Problem Cigarette nicotine dependence with other nicotin e-induced disorder F17.218 Active 89530520012738493 Problem Intervertebral disc disorders with radiculopathy , lumbosacral region M51.17 Active 84350211380941544 Problem PA (obstructive sleep apnea) G47.33 Active 78 258202 Problem 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 Active 35418366 Problem Carpal tunnel syndrome of right wrist G56.01 Ac tive 699801675527881 Problem care home current use of anticoagulant Z79.01 A ctive 263159120 Problem Factor V Leiden D68.51 Active 105375370 Problem care home (current) use of insulin Z79.4 Activ e 243616532 Problem Pulmonary emphysema, unspecified emphysema type J4 3.9 Active 58913748 Problem GERD (gastroesophageal reflux disease) K21.9 A ctive 078898483 Problem Status post below-knee amputation of left lower extremity Z89.512 Active 510027918543644 Problem Seasonal allergic rhinitis due to pollen J30.1 Active 27034517 Problem Lesion of ulnar nerve, right upper limb G56.21 Active 839420303390465 Problem Bipolar disorder, current episode manic w/o psyc hotic features, mild F31.11 Active 437515441 Problem Non-pressure chronic ulcer o f other part of unspecified foot with unspecified severity L97.509 Active 540065176 Problem 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 L97.412 Active 298153558 Problem Type 2 diabetes mellitus with foot ulcer E11.621 Active 619289467 Problem Sebaceous cyst of skin of left breast N60.82 Ac tive 42629127 Problem Primary insomnia F51.01 Active 8057378 Problem Anticoagulant long-term use Z79.01 Active 7111 15104 Problem Intervertebral disc disorders with radiculopathy , lumbar region M51.16 Active 203239430866353 Problem Essential hypertension I10 Active 57323910 Problem MRSA (methicillin resistant Staphylococcus aureus) carrier Z22.322 Active 917404739 Problem CKD stage 3 due to type 2 diabetes mellitus E11.22 Active 292314728618 Problem Lesion of ulnar nerve, left upper limb G56.22 Active 377007364446624 Problem Chronic kidney disease, unspecified CKD stage N18. 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.22 Active 02517902 Problem Ulcerative colitis with complication, unspecified location K51.919 Active 17928661 ALLERGIES Allergen (clinical drug ingredient) Drug/Non Drug Allergy do cumented on EMR Reaction Allergy Type Onset Date Status Sulfa (for allergy use only) Hives Drug Allergy Active Penicillin (For Allergies Use Only) Anaphylaxis Drug Aller gy Active simvastatin Zocor(NDC Code:[address]-11) Hives Drug Allergy Active Glucophage Hives Drug Allergy Active cephalexin Keflex([facility] Code:[address]-57) hives Drug Allergy Active Latex (for allergy use only) Anaphylaxis Drug Allergy Active atorvastatin Lipitor([facility] Code:[address]-10) Hives Drug Allergy Active Fresh Pineapple swollen lips/ sores in mouth Non Drug Josué rgy Active fenofibrate Tricor([facility] Code:[address]-77) Hives Drug Allergy Active ENCOUNTERS from 1969 to 2020-09-03 Encounter Location Date Provider Diagnosis [facility] [address] [place] [id number] 17 Aug, 2020 Figueroa Iraheta IMMUNIZATIONS Vaccine Route Administration Date Status Toradol [...] Education Language: Question Answer Notes Languages spoken: Slovak Druze: Question Answer Notes Druze 33 None Sexual Hx: Question Answer Notes [...] 2 capsuleS Orally daily May, Active Cholecalciferol 91763 UNIT 1 capsule Orally once a week [...] directed Dx Z89.51, M54.41 Jan, Active Pen [place] 3/16" 31G X 5 MM as directed [...] 6 hours as needed Active Nystatin Powder 440548 UNIT powder Externally to bilat eral berast and abd pannus daily as needed daily for 30 days Active May Use - wheel chair dx code Z89.512 _ for 99 months Jan, Active Zofran 8 MG 1 tab PRN nausea Orally every 12 hours Jun, Active Collagen Ultra - 1 cap Orally Daily May, Active PROCEDURES No Information RESULTS No Results REASON FOR VISIT DCS Update MEDICAL (GENERAL) HISTORY Type Description Date Medical [...] mellitus wit h other circulatory complications - Nathalie Medical History Hx recto-sigmoid ischemic co litis 03/2018 confirmed by sigmoid c bx-Jaylin, msesnteric arteriogram s intervention Medical History Hx urinary retention - [facility] Urology Medical History Hx Wynn's Palsy [...] Hospitalization History Staph hominis line sepsis [facility] chronic osteomelytis foot 05/15/15 Hospitalization History wound [...] Provider Name:Randolph Villarreal, 2020-09-05 02:45:00 PM, [address] [place], [phone], Provider Name:Yung Reis, 08:00:00 AM, [address] [place], [address], Provider Name:Mireille Quijano 2020-09-15 08:00:00 AM, [address] [place] [address], [phone], Provider Name:Tiffany Hogue, 06-11-14 01:30:00 PM, [address] [place] [address], [phone], Provider Name:Tiffany Hogue, 06-06-27 01:00:00 PM, [address] [place] [address], [phone], Insurance Providers Payer Name Payer Address Payer Phone Insured Name Patient Relati onship to Insured Coverage Start Date Coverage End Date [facility] [id number] [facility] [id number] JOSS FORD 2013
--- OUTSIDE RECORDS SUMMARY | 2020-11-17 18:49 | CCD ---
Author Author [facility] Organization [facility] Address Unknown Phone Unavailable Care Team Providers Care Technical Supervisor Name Role Phone Yung Reis Unavailable PROBLEMS Type Condition ICD9-CM Code CYG50-UE Code Onset Dates Condition S tatus SNOMED Code Notes Problem Iron deficiency anemia, unspecified iron deficiency an emia type D50.9 Active 21819096 Problem Nocturnal leg cramps G47.62 Active 646024228 Problem Restless leg syndrome G25.81 Active 65038531 Problem Other chronic pain G89.29 Active 43904159 Problem Gastroparesis K31.84 Active 191230582 Problem 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 Active 110778602 Problem Lumbago with sciatica, right side M54.41 Active 672993756 Problem Age-related nuclear cataract, right eye H25.11 Active 116195593034983 Problem Panic disorder F41.0 Active 233786984 Problem Age-related nuclear cataract, left eye H25.12 Active 818150235152815 Problem Type 2 diabetes mellitus with other circulatory compli cations E11.59 Active 89412318 Problem History of ischemic colitis Z87.19 Active 1099 109528607461 Problem Mixed hyperlipidemia E78.2 Active 548848083 Problem Cigarette nicotine dependence with other nicotin e-induced disorder F17.218 Active 57635188195186617 Problem Intervertebral disc disorders with radiculopathy , lumbosacral region M51.17 Active 71806791015270456 Problem PA (obstructive sleep apnea) G47.33 Active 78 403729 Problem 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 Active 14816253 Problem Carpal tunnel syndrome of right wrist G56.01 Ac tive 912230318871981 Problem 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 Z79.01 A ctive 954946309 Problem Factor V Leiden D68.51 Active 044569487 Problem [facility] (current) use of insulin Z79.4 Activ e 582951188 Problem Pulmonary emphysema, unspecified emphysema type J4 3.9 Active 27870937 Problem GERD (gastroesophageal reflux disease) K21.9 A ctive 231156895 Problem Status post below-knee amputation of left lower extremity Z89.512 Active 637291668266161 Problem Seasonal allergic rhinitis due to pollen J30.1 Active 83346039 Problem Lesion of ulnar nerve, right upper limb G56.21 Active 719088367044552 Problem Bipolar disorder, current episode manic w/o psyc hotic features, mild F31.11 Active 266006452 Problem Non-pressure chronic ulcer o f other part of unspecified foot with unspecified severity L97.509 Active 140085277 Problem 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 L97.412 Active 181769765 Problem Type 2 diabetes mellitus with foot ulcer E11.621 Active 929301991 Problem Sebaceous cyst of skin of left breast N60.82 Ac tive 86160781 Problem Primary insomnia F51.01 Active 5854710 Problem Anticoagulant long-term use Z79.01 Active 7111 52554 Problem Intervertebral disc disorders with radiculopathy , lumbar region M51.16 Active 367852189581855 Problem Essential hypertension I10 Active 81956207 Problem MRSA (methicillin resistant Staphylococcus aureus) carrier Z22.322 Active 465084083 Problem CKD stage 3 due to type 2 diabetes mellitus E11.22 Active 758065338611 Problem Lesion of ulnar nerve, left upper limb G56.22 Active 867522202536982 Problem Chronic kidney disease, unspecified CKD stage N18. 9 Active 605793632 Problem Recurrent deep venous thrombosis I82.409 Active 721074343 Problem Type 2 diabetes mellitus with diabetic chronic kidney disease E11.22 Active 95053926 Problem Ulcerative colitis with complication, unspecified location K51.919 Active 79708973 ALLERGIES Allergen (clinical drug ingredient) Drug/Non Drug Allergy do cumented on EMR Reaction Allergy Type Onset Date Status Sulfa (for allergy use only) Hives Drug Allergy Active Penicillin (For Allergies Use Only) Anaphylaxis Drug Aller gy Active simvastatin Zocor([facility] Code:[address]-42) Hives Drug Allergy Active Glucophage Hives Drug Allergy Active cephalexin Keflex([facility] Code:[address]-53) hives Drug Allergy Active Latex (for allergy use only) Anaphylaxis Drug Allergy Active atorvastatin Lipitor([facility] Code:[address]-61) Hives Drug Allergy Active Fresh Pineapple swollen lips/ sores in mouth Non Drug Josué rgy Active fenofibrate Tricor([facility] Code:[address]-03) Hives Drug Allergy Active ENCOUNTERS from 1969 to 2020-08-29 Encounter Location Date Provider Diagnosis [facility] [address] [place] [address] Aug Yung Reis Open wound T14.8XXA ; Type 2 diabetes me llitus with foot ulcer E11.621 and Non-pressure chronic [...] Education Language: Question Answer Notes Languages spoken: Djiboutian Yazidi: Question Answer Notes Yazidi 33 None Sexual Hx: Question Answer Notes [...] FOR REFERRAL No Information VITAL SIGNS Weight 255 lbs Aug, Weight-kg PER PT kg Aug, Height 70 in Aug, BMI 36.58 kg/m2 Aug, Heart Rate 94 /min Aug, Respiratory Rate 18 /min Aug, Temperature 94.5 degrees Fahrenheit Aug, Oximetry 98 Aug, Blood pressure systolic 156 mm Hg Aug, Blood pressure diastolic 78 mm Hg Aug, MEDICATIONS Medication SIG (Take, Route, Frequency, Duration) Start Date En d Date Status Torsemide 20 MG 2 tab Orally Daily for 90 days Active FreeStyle Dwight 14 Day Sensor - as directed Dx E11.9 Nov, Active Ropinirole HCl 2 MG 1 tablet at 8 pm and at midnight Orally BID May, Active Eliquis 5 MG 1 tablet Orally BID Active Levofloxacin 250 MG 1 tablet Orally twice a day for 14 day(s) 30 Oc 2019 Not-Taking Wheelchair - as directed Power wheelchair; Dx M54.41, G56.21, Z89.512, M62.81 Apr, Active Probiotic - Orally Active Symbicort 80-4.5 MCG/ACT 2 puffs Inhalation Twice a day May, 9 Active AmLODIPine Besylate 2.5 MG 1 tablet Orally Once a day Oct, Not-Taking Rosuvastatin Calcium 10 MG 1 tablet Orally Once a day Dec, Active Humalog KwikPen 200 UNIT/ML as directed [...] 2 capsuleS Orally daily May, Ac tive Cholecalciferol 81556 UNIT 1 capsule Orally once a week on ay Jun, Active Dexilant 60 MG 1 capsule Orally Once a day May, Active Methylphenidate HCl ER (LA) 20 MG 1 capsule in the morning O rally Once a day Jun, Active Ketoconazole 2 % 5 applications to scalp Exte rnally Once a day and let sit for 5 minutes Jul, Active Betamethasone Valerate 0.1 % 1 application to affected area Externally Once a day Jan, Active Wheelchair - as directed Dx Z89.51, M54.41 Jan, Active Pen P[place]oy 316" 31G X 5 MM as directed 5 times daily Aug, Active Cetirizine HCl 10 MG 1 tablet Orally Once a day Jan, Active EpiPen 0.3 MG/0.3ML 1 injection Injection As nee ded for allergic reaction for 30 day(s) Active Refresh 1 % 1 drop into affected eye as needed Ophth almic four times daily prn Active Restasis 0.05 % 1 drop into affected eye Ophthalmic three times a d ay Active Valacyclovir HCl 1 GM 1 tablet [...] Inhalatio n every 6 hrs May, Active Singulair 10 MG 1 tablet Orally Once a day Active Lunesta 3 MG 1 tablet immediately before bedtime Orally Once a day May, Active Tamsulosin HCl 0.4 MG Orally Daily HS Ac tive Tresiba 200 U/mL 160 units subcutaneously daily Active Hibiclens 4 % as directed Externally twice a day Jul, Active Hydrocodone-Acetaminophen 10-325 MG 1 tablet as needed Orally every 4 hrs Active Magnesium Chloride 64 MG 1 tablet Orally Daily May, Active Cyclobenzaprine HCl 10 MG 1 tab Orally Three times a day prn muscle spasms May, Active Xopenex 1.25 MG/3ML 3 ml Inhalation Every 6 hours as needed Active Nystatin Powder 633601 UNIT powder Externally to bilat eral berast and abd pannus daily as needed daily for 30 days Active May Use - wheel chair dx code Z89.512 _ for 99 months Jan, Active Zofran 8 MG 1 tab PRN nausea Orally every 12 hours Jun, Active Collagen Ultra - 1 cap Orally Daily May, Activ e PROCEDURES Procedure Date Ordered Result Body Site LIDOCAINE 4% CREAM TOPICAL 2020-08-18 N/A RESULTS No Results REASON FOR VISIT right foot wound MEDICAL (GENERAL) HISTORY Type Description Date Medical [...] mellitus wit h other circulatory complications - [place] Medical History Hx recto-sigmoid ischemic co litis [...] arteriogram done by Federico pena intervention//CT he 06/ Hospitalization History [facility] 10/08/2018 Hospitalization History 3 days renal failure 05/22/2019 Hospitalization History right foot cellulitis 06/2019 Goals Section No Information Health Concerns No Information MEDICAL EQUIPMENT No Information MENTAL STATUS No Information FUNCTIONAL STATUS No Information ASSESSMENTS Encounter Date Diagnosis Notes Aug, Open wound (ICD-10 - T14.8XXA) Aug, 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 (ICD-10 - L97.412) Aug, Type 2 diabetes mellitus with foot ulcer (ICD-10 - E11.621) PLAN OF TREATMENT Next Appt Details 1 Week Reason: Provider Name:Yung Reis, 08:00:00 AM, [address] [place], [address], Provider Name:Mireille Quijano, 2020-09-15 08:00:00 AM, [address] [place] [address], [phone], Provider Name:Tiffany Hogue, 06-11-14 01:30:00 PM, [address] [place] [address], [id number], Provider Name:Tiffany Hogue, 06-06-27 01:00:00 PM, [address] [place] [address], [id number], Insurance Providers Payer Name Payer Address Payer Phone Insured Name Patient Relati onship to Insured Coverage Start Date Coverage End Date [facility] [id number] [facility] [id number] JOSS FORD 2014
--- OUTSIDE RECORDS SUMMARY | 2020-11-17 18:50 | CCD ---
Author Author [facility] Organization [facility] Address Unknown Phone Unavailable Care Team Providers Care Secretarial Teacher Name Role Phone Silvina Quijano MD Unavailable Unavailable Silvina Quijano MD Unavailable Unavailable Silvina Quijano MD Unavailable Unavailable Silvina Quijano MD Unavailable Unavailable Silvina Quijano MD Unavailable Unavailable Silvina Quijano MD Unavailable Unavailable Silvina Quijano MD Unavailable Unavailable Skipton, E Mireille MD Unavailable Unavailable Skipton, E Mireille MD Unavailable Unavailable Skipton, E Mireille MD Unavailable Unavailable Skipton, E Mireille MD Unavailable Unavailable Skipton, E Mireille MD Unavailable Unavailable Skipton, E Mireille MD Unavailable Unavailable Skipton, E Mireille MD Unavailable Unavailable Skipton, E Mireille MD Unavailable Unavailable Skipton, E Mireille MD Unavailable Unavailable Skipton, E Mireille MD Unavailable Unavailable Skipton, E Mireille MD Unavailable Unavailable Skipton, E Mireille MD Unavailable Unavailable Skipton, E Mireille MD Unavailable Unavailable Skipton, E Mireille MD Unavailable Unavailable Skipton, E Mireille MD Unavailable Unavailable Skipton, E Mireille MD Unavailable Unavailable Skipton, E Mireille MD Unavailable Unavailable Skipton, E Mireille MD Unavailable Unavailable Skipton, E Mireille MD Unavailable Unavailable Skipton, E Mireille MD Unavailable Unavailable Skipton, E Mireille MD Unavailable Unavailable Skipton, E Mireille MD Unavailable Unavailable Skipton, E Mireilel MD Unavailable Unavailable Skipton, E Mireille MD Unavailable Unavailable Skipton, E Mireille MD Unavailable Unavailable Skipton, E Mireille MD Unavailable Unavailable Skipton, E Mireille MD Unavailable Unavailable Skipton, E Mireille MD Unavailable Unavailable Skipton, E Mireille MD Unavailable Unavailable Skipton, E Mireille MD Unavailable Unavailable Skipton, E Mireille MD Unavailable Unavailable Skipton, E Mireille MD Unavailable Unavailable Skipton, E Mireille MD Unavailable Unavailable Skipton, E Mireille MD Unavailable Unavailable Skipton, E Mireille MD Unavailable Unavailable Skipton, E Mireille MD Unavailable Unavailable Skipton, E Mireille MD Unavailable Unavailable Skipton, E Mireille MD Unavailable Unavailable Skipton, E Mireille MD Unavailable Unavailable Skipton, E Mireille MD Unavailable Unavailable Skipton, E Mireille MD Unavailable Unavailable Skipton, E Mireille MD Unavailable Unavailable Skipton, E Mireille MD Unavailable Unavailable Skipton, E Mireille MD Unavailable Unavailable MCELHERAN, CAITY PA Unavailable Unavailable MCELHERAN, CAITY PA Unavailable Unavailable MCELHERAN, CAITY PA Unavailable Unavailable MCELHERAN, CAITY PA Unavailable Unavailable MCELHERAN, CAITY PA Unavailable Unavailable MCELHERAN, CAITY PA Unavailable Unavailable MCELHERAN, CAITY PA Unavailable Unavailable MCELHERAN, CAITY PA Unavailable Unavailable MCELHERAN, CAITY PA Unavailable Unavailable MCELHERAN, CAITY PA Unavailable Unavailable MCELHERAN, CAITY PA Unavailable Unavailable MCELHERAN, CAITY PA Unavailable Unavailable MCELHERAN, CAITY PA Unavailable Unavailable MCELHERAN, CAITY PA Unavailable Unavailable MCELHERAN, CAITY PA Unavailable Unavailable MCELHERAN, CAITY PA Unavailable Unavailable MCELHERAN, CAITY PA Unavailable Unavailable MCELHERAN, CAITY PA Unavailable Unavailable MCELHERAN, CAITY PA Unavailable Unavailable MCELHERAN, CAITY PA Unavailable Unavailable MCELHERAN, CAITY PA Unavailable Unavailable MCELHERAN, CAITY PA Unavailable Unavailable MCELHERAN, CAITY PA Unavailable Unavailable MCELHERAN, CAITY PA Unavailable Unavailable MCELHERAN, CAITY PA Unavailable Unavailable MCELHERAN, CAITY PA Unavailable Unavailable MCELHERAN, CAITY PA Unavailable Unavailable MCELHERAN, CAITY PA Unavailable Unavailable Skipton, E Mireille MD Unavailable Unavailable Skipton, E Mireille MD Unavailable Unavailable Skipton, E Mireille MD Unavailable Unavailable Skipton, E Mireille MD Unavailable Unavailable Skipton, E Mireille MD Unavailable Unavailable Skipton, E Mireille MD Unavailable Unavailable Skipton, E Mireille MD Unavailable Unavailable Skipton, E Mireille MD Unavailable Unavailable Skipton, E Mireille MD Unavailable Unavailable Skipton, E Mireille MD Unavailable Unavailable Skipton, E Mireille MD Unavailable Unavailable Skipton, E Mireille MD Unavailable Unavailable Skipton, E Mireille MD Unavailable Unavailable Skipton, E Mireille MD Unavailable Unavailable Skipton, E Mireille MD Unavailable Unavailable Skipton, E Mireille MD Unavailable Unavailable Skipton, E Mireille MD Unavailable Unavailable Skipton, E Mireille MD Unavailable Unavailable Skipton, E Mireille MD Unavailable Unavailable Skipton, E Mireille MD Unavailable Unavailable Skipton, E Mireille MD Unavailable Unavailable Skipton, E Mireille MD Unavailable Unavailable Skipton, E Mireille MD Unavailable Unavailable Skipton, E Mireille MD Unavailable Unavailable Skipton, E Mireille MD Unavailable Unavailable Skipton, E Mireille MD Unavailable Unavailable Skipton, E Mireille MD Unavailable Unavailable Skipton, E Mireille MD Unavailable Unavailable Skipton, E Mireille MD Unavailable Unavailable Skipton, E Mireille MD Unavailable Unavailable Skipton, E Mireille MD Unavailable Unavailable Skipton, E Mireille MD Unavailable Unavailable Skipton, E Mireille MD Unavailable Unavailable Skipton, E Mireille MD Unavailable Unavailable Skipton, E Mireille MD Unavailable Unavailable Skipton, E Mireille MD Unavailable Unavailable Skipton, E Mireille MD Unavailable Unavailable Skipton, E Mireille MD Unavailable Unavailable Skipton, E Mireille MD Unavailable Unavailable Skipton, E Mireille MD Unavailable Unavailable Skipton, E Mireille MD Unavailable Unavailable Skipton, E Mireille MD Unavailable Unavailable Skipton, E Mireille MD Unavailable Unavailable Skipton, E Mireille MD Unavailable Unavailable Skipton, E Mireille MD Unavailable Unavailable Skipton, E Mireille MD Unavailable Unavailable Skipton, E Mireille MD Unavailable Unavailable Skipton, E Mireille MD Unavailable Unavailable Skipton, E Mireille MD Unavailable Unavailable Skipton, E Mireille MD Unavailable Unavailable Skipton, E Mireille MD Unavailable Unavailable Ben Hayden MD Unavailable Unavailable Ben Hayden MD Unavailable Unavailable HeBen quick MD Unavailable Unavailable HeBen quick MD Unavailable Unavailable HeBen quick MD Unavailable Unavailable HeBen quick MD Unavailable Unavailable HeBen quick MD Unavailable Unavailable Ben Hayden MD Unavailable Unavailable Ben Hayden MD Unavailable Unavailable Ben Hayden MD Unavailable Unavailable HeBen quick MD Unavailable Unavailable Ben Hayden MD Unavailable Unavailable HeBen quick MD Unavailable Unavailable HeBen quick MD Unavailable Unavailable HeBen quick MD Unavailable Unavailable Ben Hayden MD Unavailable Unavailable Ben Hayden MD Unavailable Unavailable Ben Hayden MD Unavailable Unavailable Ben Hayden MD Unavailable Unavailable Ben Hayden MD Unavailable Unavailable Ben Hayden MD Unavailable Unavailable Ben Hayden MD Unavailable Unavailable Ben Hayden MD Unavailable Unavailable Ben Hayden MD Unavailable Unavailable Ben Hayden MD Unavailable Unavailable MollisonDelfin MD Unavailable Unavailable MollisonDelfin MD Unavailable Unavailable MollisonDelfin MD Unavailable Unavailable MollisonDelfin MD Unavailable Unavailable MollisonDelfin MD Unavailable Unavailable MollisonDelfin MD Unavailable Unavailable MollisonDelfin MD Unavailable Unavailable MollisonDelfin MD Unavailable Unavailable MollisonDelfin MD Unavailable Unavailable MollisonDelfin MD Unavailable Unavailable MollisonDelfin MD Unavailable Unavailable MollisonDelfin MD Unavailable Unavailable MollisonDelfin MD Unavailable Unavailable LisaisonDelfin MD Unavailable Unavailable MollisonDelfin MD Unavailable Unavailable MollisonDelfin MD Unavailable Unavailable MollisonDelfin MD Unavailable Unavailable MollisonDelfin MD Unavailable Unavailable MollisonDelfin MD Unavailable Unavailable MollisonDelfin Mic MD Unavailable Unavailable Delfin Banerjee MD Unavailable Unavailable Delfin Banerjee MD Unavailable Unavailable LUIS M, WONG PA Unavailable Unavailable LUIS M, WONG PA Unavailable Unavailable LUIS M, WONG PA Unavailable Unavailable LUIS M, WONG PA Unavailable Unavailable LUIS M, WONG PA Unavailable Unavailable LUIS M, WONG PA Unavailable Unavailable LUIS M, WONG PA Unavailable Unavailable LUIS M, WONG PA Unavailable Unavailable LUIS M, WONG PA Unavailable Unavailable LUIS M, WONG PA Unavailable Unavailable LUIS M, WONG PA Unavailable Unavailable LUIS M, WONG PA Unavailable Unavailable LUIS M, WONG PA Unavailable Unavailable LUIS M, WONG PA Unavailable Unavailable LUIS M, WONG PA Unavailable Unavailable LUIS M, WONG PA Unavailable Unavailable LUIS M, WONG PA Unavailable Unavailable LUIS M, WONG PA Unavailable Unavailable LUIS M, WONG PA Unavailable Unavailable LUIS M, WONG PA Unavailable Unavailable LUIS M, WONG PA Unavailable Unavailable LUIS M, WONG PA Unavailable Unavailable LUIS M, WONG PA Unavailable Unavailable LUIS M, WONG PA Unavailable Unavailable LUIS M, WONG PA Unavailable Unavailable LUIS M, WONG PA Unavailable Unavailable LUIS M, WONG PA Unavailable Unavailable LUIS M, WONG PA Unavailable Unavailable LUIS M, WONG PA Unavailable Unavailable LUIS M, WONG PA Unavailable Unavailable LUIS M, WONG PA Unavailable Unavailable LUIS M, WONG PA Unavailable Unavailable LUIS M, WONG PA Unavailable Unavailable LUIS M, WONG PA Unavailable Unavailable LUIS M, WONG PA Unavailable Unavailable Brandin CHIRINOS DO Unavailable [phone] Brandin CHIRINOS DO Unavailable [phone] Brandin CHIRINOSEW DO Unavailable [phone] Brandin CHIRINOSEW DO Unavailable [phone] Brandin CHIRINOSEW DO Unavailable [phone] Brandin CHIRINOSEW DO Unavailable [phone]) Brandin CHIRINOSEW DO Unavailable [phone] Brandin CHIRINOSEW DO Unavailable [phone]) Brandin CHIRINOSEW DO Unavailable [phone]) Brandin CHIRINOSEW DO Unavailable [phone] CLARK, A. HOSEA DO Unavailable [phone] Brandin CHIRINOS DO Unavailable [phone] Brandin CHIRINOS DO Unavailable [phone] Brandin CHIRINOSEW DO Unavailable [phone] Brandin CHIRINOSEW DO Unavailable [phone] Brandin CHIRINOSEW DO Unavailable [phone] Brandin CHIRINOSEW DO Unavailable [phone] Brandin CHIRINOSEW DO Unavailable [phone] Brandin CHIRINOS DO Unavailable [phone] Brandin CHIRINOS DO Unavailable [phone] Brandin CHIRINOS DO Unavailable [phone] TOM, Silvina MARTIN MD Unavailable Unavailable TOM, Silvina MARTIN MD Unavailable Unavailable TOM, E VERONICA ROBERSON Unavailable Unavailable TOM, Silvina MARTIN MD Unavailable Unavailable TOM, Silvina MARTIN MD Unavailable Unavailable TOM, Silvina MARTIN MD Unavailable Unavailable TOM, Silvina MARTIN MD Unavailable Unavailable TOM, Silvina MARTIN MD Unavailable Unavailable TOM, Silvina MARTIN MD Unavailable Unavailable TOM, Silvina MARTIN MD Unavailable Unavailable TOM, Silvina MARTIN MD Unavailable Unavailable TOM, Silvina MARTIN MD Unavailable Unavailable TOM, Silvina MARTIN MD Unavailable Unavailable TOM, Silvina MARTIN MD Unavailable Unavailable TOM, Silvina MARTIN MD Unavailable Unavailable TOM, Silvina MARTIN MD Unavailable Unavailable TOM, Silvina MARTIN MD Unavailable Unavailable TOM, Silvina MARTIN MD Unavailable Unavailable TOM, Silvina MARTIN MD Unavailable Unavailable TOM, Silvina MARTIN MD Unavailable Unavailable TOM, Silvina MARTIN MD Unavailable Unavailable TOM, Silvina MARTIN MD Unavailable Unavailable TOM, Silvina MARTIN MD Unavailable Unavailable TOM, Silvina MARTIN MD Unavailable Unavailable TOM, Silvina MARTIN MD Unavailable Unavailable TOM, Silvina MARTIN MD Unavailable Unavailable TOM, Silvina MARTIN MD Unavailable Unavailable TOM, Silvina MARTIN MD Unavailable Unavailable TOM, Silvina MARTIN MD Unavailable Unavailable TOM, Silvina MARTIN MD Unavailable Unavailable TOM, Silvina MARTIN MD Unavailable Unavailable TOM, Silvina MARTIN MD Unavailable Unavailable TOM, Silvina MARTIN MD Unavailable Unavailable TOM, Silvina MARTIN MD Unavailable Unavailable TOM, Silvina MARTIN MD Unavailable Unavailable TOM, Silvina MARTIN MD Unavailable Unavailable TOM, Silvina MARTIN MD Unavailable Unavailable TOM, Silvina MARTIN MD Unavailable Unavailable TOM, Silvina MARTIN MD Unavailable Unavailable TOM, Silvina MARTIN MD Unavailable Unavailable TOM, Silvina MARTIN MD Unavailable Unavailable TOM, Silvina MARTIN MD Unavailable Unavailable TOM, Silvina MARTIN MD Unavailable Unavailable TOM, Silvina MARTIN MD Unavailable Unavailable TOM, E VERONICA ROBERSON Unavailable Unavailable TOM, Silvina MARTIN MD Unavailable Unavailable TOM, E VERONICA ROBERSON Unavailable Unavailable TOM, Silvina MARTIN MD Unavailable Unavailable TOM, Silvina MARTIN MD Unavailable Unavailable TOM, Silvina MARTIN MD Unavailable Unavailable TOM, Silvina MARTIN MD Unavailable Unavailable TOM, Silvina MARTIN MD Unavailable Unavailable TOM, Silvina MARTIN MD Unavailable Unavailable TOM, Silvina MARTIN MD Unavailable Unavailable TOM, Silvina MARTIN MD Unavailable Unavailable TOM, Silvina MARTIN MD Unavailable Unavailable TOM, Silvina MARTIN MD Unavailable Unavailable TOM, Silvina MARTIN MD Unavailable Unavailable TOM, Silvina MARTIN MD Unavailable Unavailable TOM, Silvina MARTIN MD Unavailable Unavailable TOM, Silvina MARTIN MD Unavailable Unavailable TOM, Silvina MARTIN MD Unavailable Unavailable TOM, Silvina MARTIN MD Unavailable Unavailable TOM, Silvina MARTIN MD Unavailable Unavailable TOM, Silvina MARTIN MD Unavailable Unavailable TOM, Silvina MARTIN MD Unavailable Unavailable TOM, Silvina MARTIN MD Unavailable Unavailable TOM, Silvina MARTIN MD Unavailable Unavailable TOM, Silvina MARTIN MD Unavailable Unavailable TOM, Silvina MARTIN MD Unavailable Unavailable TOM, Silvina MARTIN MD Unavailable Unavailable TOM, Silvina MARTIN MD Unavailable Unavailable TOM, Silvina MARTIN MD Unavailable Unavailable TOM, Silvina MARTIN MD Unavailable Unavailable TOM, Silvina MARTIN MD Unavailable Unavailable TOM, Silvina MARTIN MD Unavailable Unavailable TOM, Silvina MARTIN MD Unavailable Unavailable TOM, Silvina MARTIN MD Unavailable Unavailable TOM, Silvina MARTIN MD Unavailable Unavailable TOM, Silvina MARTIN MD Unavailable Unavailable TOM, E VERONICA ROBERSON Unavailable Unavailable TOM, E VERONICA ROBERSON Unavailable Unavailable TOM, E VERONICA ROBERSON Unavailable Unavailable TOM, E VERONICA ROBERSON Unavailable Unavailable TOM, E VERONICA ROBERSON Unavailable Unavailable TOM, E VERONICA ROBERSON Unavailable Unavailable TOM, E VERONICA ROBERSON Unavailable Unavailable TOM, E VERONICA ROBERSON Unavailable Unavailable TOM, E VERONICA ROBERSON Unavailable Unavailable TOM, E VERONICA ROBERSON Unavailable Unavailable TOM, E VERONICA ROBERSON Unavailable Unavailable TOM, E VERONICA ROBERSON Unavailable Unavailable TOM, E VERONICA ROBERSON Unavailable Unavailable TOM, E VERONICA ROBERSON Unavailable Unavailable TOM, E VERONICA ROBERSON Unavailable Unavailable Villarreal-Laci, E Randolph ROBERSON Unavailable Unavailable Villarreal-Laci, E Randolph ROBERSON Unavailable Unavailable Villarreal-Laci, E Randolph ROBERSON Unavailable Unavailable Villarreal-Laci, E Randolph ROBERSON Unavailable Unavailable Villarreal-Laci, E Randolph ROBERSON Unavailable Unavailable Villarreal-Laci, E Randolph ROBERSON Unavailable Unavailable Villarreal-Laci, E Randolph ROBERSON Unavailable Unavailable Villarreal-Laci, E Randolph ROBERSON Unavailable Unavailable Villarreal-Laci, E Randolph ROBERSON Unavailable Unavailable Villarreal-Laci, E Randolph ROBERSON Unavailable Unavailable Villarreal-Laci, E Randolph ROBERSON Unavailable Unavailable Villarreal-Laci, E Randolph ROBERSON Unavailable Unavailable Villarreal-Laci, E Randolph ROBERSON Unavailable Unavailable Villarreal-Laci, E Randolph ROBERSON Unavailable Unavailable Villarreal-Laci, E Randolph ROBERSON Unavailable Unavailable Villarreal-Laci, E Randolph ROBERSON Unavailable Unavailable Villarreal-Laci, E Randolph ROBERSON Unavailable Unavailable Villarreal-Laci, E Randolph ROBERSON Unavailable Unavailable Villarreal-Laci, E Randolph ROBERSON Unavailable Unavailable Villarreal-Laci, E Randolph ROBERSON Unavailable Unavailable Villarreal-Laci, E Randolph ROBERSON Unavailable Unavailable Villarreal-Laci, E Randolph ROBERSON Unavailable Unavailable Villarreal-Laci, E Randolph ROBERSON Unavailable Unavailable Villarreal-Laci, E Randolph ROBERSON Unavailable Unavailable Villarreal-Laci, E Randolph ROBERSON Unavailable Unavailable Villarreal-Laci, E Randolph ROBERSON Unavailable Unavailable Villarreal-Laci, E Randolph ROBERSON Unavailable Unavailable Villarreal-Laci, E Randolph ROBERSON Unavailable Unavailable Villarreal-Laci, E Randolph ROBERSON Unavailable Unavailable Villarreal-Laci, E Randolph ROBERSON Unavailable Unavailable Villarreal-Laci, E Randolph ROBERSON Unavailable Unavailable Villarreal-Laci, E Randolph ROBERSON Unavailable Unavailable Villarreal-Laci, E Randolph ROBERSON Unavailable Unavailable Villarreal-Laci, E Randolph ROBERSON Unavailable Unavailable Villarreal-Laci, E Randolph ROBERSON Unavailable Unavailable Villarreal-Laci, E Randolph ROBERSON Unavailable Unavailable Ferdinand, L Tamika SUPERVISOR PATCHING Unavailable Unavailable Ferdinand, L Tamika SUPERVISOR PATCHING Unavailable Unavailable Ferdinand, L Tamika SUPERVISOR PATCHING Unavailable Unavailable [place], L Tamika SUPERVISOR PATCHING Unavailable Unavailable Ferdinand, L Tamika SUPERVISOR PATCHING Unavailable Unavailable [place], L Tamika SUPERVISOR PATCHING Unavailable Unavailable [place], L Tamika SUPERVISOR PATCHING Unavailable Unavailable [place], L Tamika SUPERVISOR PATCHING Unavailable Unavailable Ferdinand, L Tamika SUPERVISOR PATCHING Unavailable Unavailable Ferdinand, L Tamika SUPERVISOR PATCHING Unavailable Unavailable [place], L Tamika SUPERVISOR PATCHING Unavailable Unavailable [place], L Tamika SUPERVISOR PATCHING Unavailable Unavailable Ferdinand, L Tamika SUPERVISOR PATCHING Unavailable Unavailable Ferdinand, L Tamika SUPERVISOR PATCHING Unavailable Unavailable [place], L Tamika SUPERVISOR PATCHING Unavailable Unavailable [place], L Tamika SUPERVISOR PATCHING Unavailable Unavailable [place], L Tamika SUPERVISOR PATCHING Unavailable Unavailable [place], L Tamika SUPERVISOR PATCHING Unavailable Unavailable [place], L Tamika SUPERVISOR PATCHING Unavailable Unavailable [place], L Tamika SUPERVISOR PATCHING Unavailable Unavailable [place], L Tamika SUPERVISOR PATCHING Unavailable Unavailable Ferdinand, L Tamika SUPERVISOR PATCHING Unavailable Unavailable Ferdinand, L Tamika SUPERVISOR PATCHING Unavailable Unavailable Ferdinand, L Tamika SUPERVISOR PATCHING Unavailable Unavailable Ferdinand, L Tamika SUPERVISOR PATCHING Unavailable Unavailable Ferdinand, L Tamika SUPERVISOR PATCHING Unavailable Unavailable [place], L Tamika SUPERVISOR PATCHING Unavailable Unavailable [place], L Tamika SUPERVISOR PATCHING Unavailable Unavailable Ferdinand, L Tamika SUPERVISOR PATCHING Unavailable Unavailable [place], L Tamika SUPERVISOR PATCHING Unavailable Unavailable [place], L Tamika SUPERVISOR PATCHING Unavailable Unavailable [place], L Tamika SUPERVISOR PATCHING Unavailable Unavailable Ferdinand, L Tamika SUPERVISOR PATCHING Unavailable Unavailable Ferdinand, L Tamika SUPERVISOR PATCHING Unavailable Unavailable Re-disclosure Warning The records that you are about to access may contain information from federally-assisted alcohol or drug abuse programs. If such information is present, then the following federally mandated warning applies: This information has been disclosed to you from records protected by federal confidentiality rules (42 CFR part 2). The federal rules prohibit you from making any further disclosure of this information unless further disclosure is expressly permitted by the written consent of the person to whom it pertains or as otherwise permitted by 42 CFR part 2. A general authorization for the release of medical or other information is NOT sufficient for this purpose. The Federal rules restrict any use of the information to criminally investigate or prosecute any alcohol or drug abuse patient.The records that you are about to access may contain highly sensitive health information, the redisclosure of which is protected by Article 27-F of the [facility] Public Health law. If you continue you may have access to information: Regarding HIV / AIDS; Provided by facilities licensed or operated by the [facility] Office of Mental Health; or Provided by the [facility] Office for People With Developmental Disabilities. If such information is present, then the following [facility] mandated warning applies: This information has been disclosed to you from confidential records which are protected by state law. State law prohibits you from making any further disclosure of this information without the specific written consent of the person to whom it pertains, or as otherwise permitted by law. Any unauthorized further disclosure in violation of state law may result in a fine or half-way sentence or both. A general authorization for the release of medical or other information is NOT sufficient authorization for further disc losure. Allergies and Adverse Reactions Type Description Substance Reaction Status Data Source(s ) Drug allergy Tricor Fenofibrate Hives Active eCW1 ([facility]) Drug allergy Lipitor atorvastatin Hives Active eCW1 ([facility]) Drug allergy Keflex Cephalexin hives Active eCW1 ([facility]) Fresh Pineapple Fresh Pineapple Fresh Pineapple swollen lips/ sore s in mouth Active eCW1 ([facility]) Glucophage Glucophage Metformin hydrochloride 1000 MG Oral Tablet [Glucophage] Hives Active eCW1 ([facility]) Fresh Pineapple Fresh Pineapple Fresh Pineapple swollen lips/ sore s in mouth Active eCW1 ([facility]) Fresh Pineapple Fresh Pineapple Fresh Pineapple swollen lips/ sore s in mouth Active eCW1 ([facility]) Fresh Pineapple Fresh Pineapple Fresh Pineapple swollen lips/ sore s in mouth Active eCW1 ([facility]) Fresh Pineapple Fresh Pineapple Fresh Pineapple swollen lips/ sore s in mouth Active eCW1 ([facility]) Fresh Pineapple Fresh Pineapple Fresh Pineapple swollen lips/ sore s in mouth Active eCW1 ([facility]) Fresh Pineapple Fresh Pineapple Fresh Pineapple swollen lips/ sore s in mouth Active eCW1 ([facility]) Fresh Pineapple Fresh Pineapple Fresh Pineapple swollen lips/ sore s in mouth Active eCW1 ([facility]) Fresh Pineapple Fresh Pineapple Fresh Pineapple swollen lips/ sore s in mouth Active eCW1 ([facility]) Fresh Pineapple Fresh Pineapple Fresh Pineapple swollen lips/ sore s in mouth Active eCW1 ([facility]) Family History Family Member Name Family Member Gender Family Member Status Date o f Status Description Data Source(s) Unknown Unknown Problem MED[facility] ([facility], ) Father Encounters Encounter Providers Location Date Indications Data Source(s ) Outpatient Attender: VERONICA SANTOS MDReferrer: Mireille Quijano MD 11/11/2020 09:09:39 AM EST [facility] Recurring Patient Referrer: Randolph Shine MD 08:19:34 AM EST [facility] Recurring Patient Referrer: Randolph Shine MD 01:29:29 PM EST [facility] Recurring Patient Referrer: Randolph Shine MD 12:48:42 PM EST [facility] Outpatient [id number] [address] 10/31/2020 12:00:00 AM EST eCW1 ([facility]) Unknown [id number] [facility] [place] [address] 10/30/2020 12:00:00 AM EST eCW1 ([facility]) Unknown [address] [facility] [place] [address] 10/29/2020 12:00:00 AM EST eCW1 ([facility]) Recurring Patient Referrer: Randolph Shine MD 09/2021 11:33:15 AM EST [facility] Unknown [address] [facility] [address] 10/27/2020 12:00:00 AM EST eCW1 ([facility]) Unknown [address] [facility] [place] [address] 10/24/2020 12:00:00 AM EST eCW1 ([facility]) Outpatient [address] [facility] [address] 10/24/2020 12:00:00 AM EST eCW1 ([facility]) Unknown [address] [facility] [address] 10/22/2020 12:00:00 AM EST eCW1 ([facility]) Outpatient<td ID="encounterTypeDescripti onID0">Rx Refills/Changes</td><td>Hosea Chirinos DO</td><td></td><td>10/06/2020</td><td>10/03/2020 1:44PM</td><td>10/03/2020 11:59PM</td><td></td> Attender: HOSEA CHIRINOS DO 020 01:44:00 PM EST - 10/03/2020 11:59:00 PM EST [place] (Ben Hyde MD [facility]) Outpatient<td ID="encounterTypeDescripti onID1">1 Week Post OP</td><td>Hosea Chirinos DO</td><td>Ben Otto MD [facility]</td><td>10/03/2020</td><td>12:57PM</td><td>1:39PM</td><td><content ID="encounterDiagnosisID1-0">Cystoid Macular Edema</content>, <content ID="encounterDiagnosisID1-1">Pseudophakia</content></td> Attender: HOSEA Cullen MD [facility] 10/03/2020 12:57:00 PM EST - 10/03/2020 01:39:00 PM EST Cystoid Macular EdemaPseudophakia [facility] (Ben Hyde MD [facility]) Cystoid Macular Edema Pseudophakia Outpatient<td ID="encounterTypeDescripti onID2">1 Day Post OP</td><td>Hosea Chirinos DO</td><td>Ben Otto MD [facility]</td><td>09/26/2020</td><td>8:33AM</td><td>10:00AM</td><td><content ID="encounterDiagnosisID2-0">Pseudophakia</content>, <content ID="encounterDiagnosisID2-1">Posterior Capsule Opacification Eccentric Capsule Right Eye</content>, <content ID="encounterDiagnosisID2-2">Cystoid Macular Edema</content></td> Attender: HOSEA Cullen MD [facility] 09/26/2020 08:33:00 AM EST - 09/26/2020 10:00:00 AM EST Cystoid Macular EdemaPosterior Capsule Opacification Eccentric Capsule Right EyeCystoid Macular EdemaPosterior Capsule Opacification Eccentric Capsule Right EyePosterior Capsule Opacification Eccentric Capsule Right EyePseudophakiaPseudophakia Pseudophakia DAVID (Ben Hyde MD [facility]) Cystoid Macular Edema Posterior Capsule Opacification Eccentri c Capsule Right Eye Cystoid Macular Edema Posterior Capsule Opacification Eccentri c Capsule Right Eye Posterior Capsule Opacification Eccentri c Capsule Right Eye Pseudophakia Pseudophakia Pseudophakia ([id number]) For Template Ervin [address] [place] [address] 09/22/2020 12:00:00 AM EST eCW1 ([facility]) Unknown [address] [facility] [address] 09/22/2020 12:00:00 AM EST eCW1 ([facility]) Unknown [address] [facility] [address] 09/15/2020 12:00:00 AM EST eCW1 ([facility]) Outpatient [address] [facility] [address] 09/15/2020 12:00:00 AM EST eCW1 ([facility]) Outpatient [address] [facility] [address] 09/08/2020 12:00:00 AM EST eCW1 ([facility]) Out[place] [address] [facility] [address] 09/05/2020 12:00:00 AM EST eCW1 ([facility]) Outpatient<td ID="encounterTypeDescripti onID3">SAME DAY POST OP</td><td>Hosea Chirinos DO</td><td>[facility]</td><td>09/25/2020</td><td>09/04/2020 4:40PM</td><td>7:05AM</td><td></td> Attender: HOSEA CHIRINOS DO [facility] 08/17 04:40:00 PM EST - 09/25/2020 07:05:00 AM EST [facility] (Ben Hyde MD [facility]) Outpatient<td ID="encounterTypeDescripti onID5">POST OP VISIT WITH PRE- OP</td><td>Hosea Chirinos DO</td><td>Ben Otto MD [facility]</td><td>09/04/2020</td><td>1:46PM</td><td>2:33PM</td><td><content ID="encounterDiagnosisID5-0">Pseudophakia</content>, <content ID="encounterDiagnosisID5-1">Cataract Senile Posterior Subcapsular Polar</content></td> Attender: HOSEA Cullen MD [facility] 09/04/2020 01:46:00 PM EST - 09/04/2020 02:33:00 PM EST Cataract Senile Posterior Subcapsular PolarPseudophakiaCataract Senile Posterior Subcapsular PolarPseudophakiaCataract Senile Posterior Subcapsular PolarPseudophakia [facility] (Ben Hyde MD [facility]) Cataract Senile Posterior Subcapsular Po lar Pseudophakia Cataract Senile Posterior Subcapsular Po lar Pseudophakia Cataract Senile Posterior Subcapsular Po lar Pseudophakia Outpatient<td ID="encounterTypeDescripti onID4">Extracapsular cataract removal w/IOL implant</td><td>Hosea Chirinos DO</td><td>[facility]</td><td>09/25/2020</td><td>09/04/2020 6:50AM</td><td>7:07AM</td><td></td> Attender: HOSEA CHIRINOS DO [facility] 08/17 06:50:00 AM EST - 09/25/2020 07:07:00 AM EST [facility] (Ben Hyde MD [facility]) Unknown [address] [facility] [address] 09/03/2020 12:00:00 AM EST eCW1 ([facility]) Unknown [address] [facility] [place] [address] 09/02/2020 12:00:00 AM EST eCW1 ([facility]) Outpatient [address] [facility] [address] 08/29/2020 12:00:00 AM EST eCW1 ([facility]) Outpatient<td ID="encounterTypeDescripti onID6">SAME DAY POST OP</td><td>Hosea Chirinos DO</td><td>[facility]</td><td>08/28/2020</td><td>7:33AM</td><td>7:33AM</td><td></td> Attender: HOSEA CHIRINOS DO [facility] 08/28/2020 07:33:00 AM EST - 08/28/2020 07:33:00 AM EST [facility] (Ben hummel MD [facility]) Outpatient<td ID="encounterTypeDescripti onID7">Extracapsular cataract removal w/IOL implant</td><td>Hosea Chirinos DO</td><td>[facility]</td><td>08/28/2020</td><td>7:03AM</td><td>7:03AM</td><td></td> Attender: HOSEA CHIRINOS DO [facility] 08/28/2020 07:03:00 AM EST - 08/28/2020 07:03:00 AM EST [facility] (Ben hummel MD [facility]) Outpatient [address] [facility] [address] 08/26/2020 12:00:00 AM EST eCW1 ([facility]) Outpatient [address] [facility] [place] [address] 08/25/2020 12:00:00 AM EST eCW1 ([facility]) Outpatient<td ID="encounterTypeDescripti onID8">1 WK PREOP FOR SURGERY</td><td>Hosea Chirinos DO</td><td>Ben Otto MD [facility]</td><td>08/22/2020</td><td>12:36PM</td><td>1:44PM</td><td><content ID="encounterDiagnosisID8-0">Cataract Senile Posterior Subcapsular Polar</content></td> Attender: HOSEA Cullen MD [facility] 08/22/2020 12:36:00 PM EST - 08/22/2020 01:44:00 PM EST Cataract Senile Posterior Subcapsular PolarCataract Senile Posterior Subcapsular PolarCataract Senile Posterior Subcapsular Polar [facility] (Ben Hyde MD [facility]) Cataract Senile Posterior Subcapsular Po lar Cataract Senile Posterior Subcapsular Po lar Cataract Senile Posterior Subcapsular Po lar Unknown [address] [facility] [address] 08/21/2020 12:00:00 AM EST eCW1 ([facility]) Unknown [address] [facility] [address] 08/19/2020 12:00:00 AM EST eCW1 ([facility]) (WND NP120) New Patient 120 Min [address] [place] [address] 08/18/2020 12:00:00 AM EST eCW1 ([facility]) Outpatient [address] [facility] [place] [address] 08/15/2020 12:00:00 AM EDT eCW1 ([facility]) Unknown [address] [facility] [place] [address] 08/14/2020 12:00:00 AM EDT eCW1 ([facility]) Unknown [address] [facility] [address] 08/06/2020 12:00:00 AM EDT eCW1 ([facility]) Outpatient [address] [facility] [place] [address] 07/22/2020 12:00:00 AM EDT eCW1 ([facility]) Unknown [address] [facility] [address] 07/17/2020 12:00:00 AM EDT eCW1 ([facility]) Unknown [address] [facility] [place] [address] 07/16/2020 12:00:00 AM EDT eCW1 ([facility]) Unknown [address] [facility] [place] [address] 07/16/2020 12:00:00 AM EDT eCW1 ([facility]) Outpatient Attender: Mic Vee/Elaina/Justyn/Re indl 07/14/2020 02:50:00 PM EDT [facility] ([facility] ) Outpatient<td ID="encounterTypeDescripti onID9">Insertion of Punctal Plug IN OFFICE-NEED AUTH</td><td>Hosea Chirinos DO</td><td>Ben Otto MD [facility]</td><td>07/09/2020</td><td>9:40AM</td><td>11:02AM</td><td><content ID="encounterDiagnosisID9-0">Cataract Senile Posterior Subcapsular Polar</content>, <content ID="encounterDiagnosisID9-1">Dry Eye Syndrome</content></td> Attender: HOSEA Cullen MD [facility] 07/09/2020 09:40:00 AM EDT - 07/09/2020 11:02:00 AM EDT Cataract Senile Posterior Subcapsular PolarCataract Senile Posterior Subcapsular PolarCataract Senile Posterior Subcapsular PolarCataract Senile Posterior Subcapsular PolarDry Eye SyndromeDry Eye SyndromeDry Eye SyndromeDry Eye Syndrome DAVID (Ben Hyde MD [facility]) Cataract Senile Posterior Subcapsular Po lar Cataract Senile Posterior Subcapsular Po lar Cataract Senile Posterior Subcapsular Po lar Cataract Senile Posterior Subcapsular Po lar Dry Eye Syndrome Dry Eye Syndrome Dry Eye Syndrome Dry Eye Syndrome Outpatient<td ID="encounterTypeDescripti onID10">6 Month Follow- Up</td><td>Hosea Chirinos DO</td><td>Ben Otto MD 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 06/27/2020 01:18:00 PM EDT - 06/27/2020 02:23:00 PM EDT Taking Medication For Diabetes Long-term Use of InsulinCataract Senile Posterior Subcapsular PolarTaking Medication For Diabetes Long-term Use of InsulinCataract Senile Posterior Subcapsular PolarTaking Medication For Diabetes Long-term Use of InsulinCataract Senile Posterior Subcapsular PolarTaking Medication For Diabetes Long-term Use of InsulinType 1 Diab W/ Diab Retinopathy Mod Nonprolif Without Macular EdemaType 1 Diab W/ Diab Retinopathy Mod Nonprolif Without Macular EdemaType 1 Diab W/ Diab Retinopathy Mod Nonprolif Without Macular EdemaCataract Senile Posterior Subcapsular PolarType 1 Diab W/ Diab Retinopathy Mod Nonprolif Without Macular Edema KeratoconjunctivitisBorderline Glaucoma Ocular HypertensionKeratoconjunctivitisBorderline Glaucoma Ocular HypertensionKeratoconjunctivitisBorderline Glaucoma Ocular HypertensionKeratoconjunctivitisBorderline Glaucoma Ocular Hypertension [facility] (Ben Hyde MD [facility]) Taking Medication For Diabetes Long-term Use of Insulin Cataract Senile Posterior Subcapsular Po lar Taking Medication For Diabetes Long-term Use of Insulin Cataract Senile Posterior Subcapsular Po lar Taking Medication For Diabetes Long-term Use of Insulin Cataract Senile Posterior Subcapsular Po lar Taking Medication For Diabetes Long-term Use of Insulin Type 1 Diab W/ Diab Retinopathy Mod Nonp rolif Without Macular Edema Type 1 Diab W/ Diab Retinopathy Mod Nonp rolif Without Macular Edema Type 1 Diab W/ Diab Retinopathy Mod Nonp rolif Without Macular Edema Cataract Senile Posterior Subcapsular Po lar Type 1 Diab W/ Diab Retinopathy Mod Nonp rolif Without Macular Edema Keratoconjunctivitis Borderline Glaucoma Ocular Hypertension Keratoconjunctivitis Borderline Glaucoma Ocular Hypertension Keratoconjunctivitis Borderline Glaucoma Ocular Hypertension Keratoconjunctivitis Borderline Glaucoma Ocular Hypertension Unknown [address] [facility], [facility] [address] 06/27/2020 12:00:00 AM EDT eCW1 ([facility]) Outpatient [address] [facility] [address] 06/11/2020 12:00:00 AM EDT eCW1 ([facility]) [facility] [address] [facility] [place] [address] 05/13/2020 12:00:00 AM EDT eCW1 ([facility]) Office Visit Attender: CAITY GRAVES Physical Therapy 04/30/2020 03:15:00 PM EDT MED[facility] ([facility]) Outpatient [address] [facility] [place] [address] 04/29/2020 12:00:00 AM EDT eCW1 ([facility]) Unknown [address] [facility] [address] 04/28/2020 12:00:00 AM EDT eCW1 ([facility]) Outpatient<td ID="encounterTypeDescripti onID12">TRIAGE NON URGENT</td><td>Hosea Chirinos DO</td><td>Ben Otto MD 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 04/21/2020 02:19:00 PM EDT - 04/21/2020 03:19:00 PM EDT Type 1 Diab W/ Diab Retinopathy Mod Nonp rolif Without Macular EdemaType 1 Diab W/ Diab Retinopathy Mod Nonprolif Without Macular EdemaType 1 Diab W/ Diab Retinopathy Mod Nonprolif Without Macular EdemaType 1 Diab W/ Diab Retinopathy Mod Nonprolif Without Macular EdemaKeratoconjunctivitisDry Eye SyndromeKeratoconjunctivitisDry Eye SyndromeKeratoconjunctivitisDry Eye SyndromeKeratoconjunctivitisDry Eye Syndrome [place] (Ben Hyde MD [facility]) Type 1 Diab W/ Diab Retinopathy Mod Nonp rolif Without Macular Edema Type 1 Diab W/ Diab Retinopathy Mod Nonp rolif Without Macular Edema Type 1 Diab W/ Diab Retinopathy Mod Nonp rolif Without Macular Edema Type 1 Diab W/ Diab Retinopathy Mod Nonp rolif Without Macular Edema Keratoconjunctivitis Dry Eye Syndrome Keratoconjunctivitis Dry Eye Syndrome Keratoconjunctivitis Dry Eye Syndrome Keratoconjunctivitis Dry Eye Syndrome Outpatient<td ID="encounterTypeDescripti onID11">10 - 14 Day Follow- Up</td><td>Hosea Chirinos DO</td><td>Ben Otto MD [facility]</td><td>05/01/2020</td><td>04/21/2020 9:40AM</td><td>04/21/2020 11:59PM</td><td></td> Attender: HOSEA Cullen MD [facility] 04/21/2020 09:40:00 AM EDT - 04/21/2020 11:59:00 PM EDT [place] (Ben Hyde MD [facility]) Office Visit Attender: Germán Hayden MD Physical Therapy 03/2020 08:30:00 AM EDT MEDENT ([facility]) Unknown [address] [place] [address], [facility] [address] 03/20/2020 12:00:00 AM EDT eCW1 ([facility]) Outpatient [address] [place] [address] 03/19/2020 12:00:00 AM EDT eCW1 ([facility]) Outpatient Referrer: Mireille Quijano MD 02/24/2020 09:25:00 A M EDT [facility] [address] [address] 02/20/2020 12:00:00 AM EDT eCW1 ([facility]) [address] [place] [address] 02/12/2020 12:00:00 AM EDT eCW1 ([facility]) [address] [address] 01/31/2020 12:00:00 AM EDT eCW1 ([facility]) [address], [facility] [address] 01/15/2020 12:00:00 AM EDT eCW1 ([facility]) Outpatient Attender: WONG GRAVES 01/14/2020 12:00:0 0 AM EDT [facility] Outpatient Attender: Tamika DAVISON Main Office 01/08/2020 02:15:0 0 PM EDT MEDENT ([facility]) [facility] [address] [facility] [address] 12/13/2019 12:00:00 AM EST eCW1 ([facility]) [facility] [address] [facility] [place] [address] 12/13/2019 12:00:00 AM EST eCW1 ([facility]) Outpatient<td ID="encounterTypeDescripti onID13">Insertion of Punctal Plug IN OFFICE-NEED AUTH</td><td>Hosea Chirinos DO</td><td>[facility]</td><td>12/11/2019</td><td>12:52PM</td><td>1:56PM</td><td><content ID="ahcsjivbaGtlokwsijQU19-5">Dry Eye Syndrome</content>, <content ID="kjmjcceszFycxianxzZZ88-1">Borderline Glaucoma Ocular Hypertension</content>, <content ID="cowrwkcfiZbjsnyzyrQC01-5">Refractive Error - Myopia Bilateral</content></td> Att[facility]: [facility] 12/11/2019 12:52:00 PM EST - 12/11/2019 01:56:00 PM ES T Refractive Error - Myopia BilateralRefractive Error - Myopia BilateralRefractive Error - Myopia BilateralRefractive Error - Myopia BilateralBorderline Glaucoma Ocular HypertensionDry Eye SyndromeBorderline Glaucoma Ocular HypertensionDry Eye SyndromeBorderline Glaucoma Ocular HypertensionDry Eye SyndromeBorderline Glaucoma Ocular HypertensionDry Eye Syndrome [facility] ([facility]) 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 - Myopia Bilateral Borderline Glaucoma Ocular Hypertension Dry Eye Syndrome Borderline Glaucoma Ocular Hypertension Dry Eye Syndrome Borderline Glaucoma Ocular Hypertension Dry Eye Syndrome Borderline Glaucoma Ocular Hypertension Dry Eye Syndrome Outpatient Attender: Germán Hayden MD Physical Therapy 07:15:00 AM EST MEDENT ([facility]) [address], [facility] [address] 12/10/2019 12:00:00 AM EST eCW1 ([facility]) Outpatient Referrer: Mireille Quijano MD 12/03/2019 05:03:00 A M EST [facility] [address] [place] [address] 11/30/2019 12:00:00 AM EST eCW1 ([facility]) Outpatient Referrer: Mireille Quijano MD 11/21/2019 09:21:00 A M EST [facility] [address] [place] [address] 11/14/2019 12:00:00 AM EST eCW1 ([facility]) [facility] [address] [place] [address] 11/13/2019 12:00:00 AM EST eCW1 ([facility]) [address], [place] [address] 11/12/2019 12:00:00 AM EST eCW1 ([facility]) [address] [address] 11/12/2019 12:00:00 AM EST eCW1 ([facility]) Outpatient Attender: Germán Hayden MD Physical Therapy 01:45:00 PM EST MEDENT ([facility]) Outpatient Attender: WONG GRAVES 11/09/2019 12:00:0 0 AM EST [facility] [address] [place] [address] 11/08/2019 12:00:00 AM EST eCW1 ([facility]) Outpatient<td ID="encounterTypeDescripti onID14">TRIAGE NON URGENT</td><td>Hosea Chirinos DO</td><td>Ben Otto MD [facility]</td><td>10/24/2019</td><td>8:29AM</td><td>9:05AM</td><td><content ID="hyvspcnnnWxawznavtCO60-5">Borderline Glaucoma Ocular Hypertension</content>, <content ID="yxsqohymsUhsfzkqcsDF02-8">Dry Eye Syndrome</content>, <content ID="nbstbggghPxmcqwidnHJ01-5">Blepharitis Squamous</content>, <content ID="amdyiibhbAggiqkdqgGX70-5">Keratoconjunctivitis</content></td> Attender: HOSEA Cullen MD [facility] 10/24/2019 08:29:00 AM EST - 10/24/2019 09:05:00 AM EST Blepharitis SquamousBlepharitis Squamous Blepharitis SquamousBlepharitis SquamousBlepharitis SquamousKeratoconjunctivitisDry Eye SyndromeBorderline Glaucoma Ocular HypertensionKeratoconjunctivitisDry Eye SyndromeBorderline Glaucoma Ocular HypertensionKeratoconjunctivitisDry Eye SyndromeBorderline Glaucoma Ocular HypertensionKeratoconjunctivitisDry Eye SyndromeBorderline Glaucoma Ocular HypertensionKeratoconjunctivitisDry Eye SyndromeBorderline Glaucoma Ocular Hypertension [place] (Ben Hyde MD [facility]) Blepharitis Squamous Blepharitis Squamous Blepharitis Squamous Blepharitis Squamous Blepharitis Squamous Keratoconjunctivitis Dry Eye Syndrome Borderline Glaucoma Ocular Hypertension Keratoconjunctivitis Dry Eye Syndrome Borderline Glaucoma Ocular Hypertension Keratoconjunctivitis Dry Eye Syndrome Borderline Glaucoma Ocular Hypertension Keratoconjunctivitis Dry Eye Syndrome Borderline Glaucoma Ocular Hypertension Keratoconjunctivitis Dry Eye Syndrome Borderline Glaucoma Ocular Hypertension [facility] [address] [facility] [place] [address] 10/16/2019 12:00:00 AM EST eCW1 ([facility]) [facility] [address] [facility] [place] [address] 10/15/2019 12:00:00 AM EST eCW1 ([facility]) [facility] [address] [facility] [place] [address] 10/15/2019 12:00:00 AM EST eCW1 ([facility]) [address] [address] 10/12/2019 12:00:00 AM EST eCW1 ([facility]) [facility] [address] [place] [address], [place] [address] 10/12/2019 12:00:00 AM EST eCW1 ([facility]) [address] [address] 10/11/2019 12:00:00 AM EST eCW1 ([facility]) Outpatient Attender: WONG GRAVES 10/05/2019 12:00:0 0 AM EST [facility] [address] [place] [address], [place] [address] 10/01/2019 12:00:00 AM EST eCW1 ([facility]) [address] [address] 09/28/2019 12:00:00 AM EST eCW1 ([facility]) [address] [address] 09/28/2019 12:00:00 AM EST eCW1 ([facility]) [address] [address] 09/28/2019 12:00:00 AM EST eCW1 ([facility]) Immunizations Vaccine Date Status Description Data Source(s) influenza, recombinant, quadrIvalent,injectable, prese rvative free 09/15/2020 08:33:00 AM EST completed eCW1 ([facility]) influenza, recombinant, quadrIvalent,injectable, prese rvative free 09/15/2020 08:33:00 AM EST completed eCW1 ([facility]) influenza, recombinant, quadrIvalent,injectable, prese rvative free 09/15/2020 08:33:00 AM EST completed eCW1 ([facility]) influenza, recombinant, quadrIvalent,injectable, prese rvative free 09/15/2020 08:33:00 AM EST completed eCW1 ([facility]) influenza, recombinant, quadrIvalent,injectable, prese rvative free 09/15/2020 08:33:00 AM EST completed eCW1 ([facility]) influenza, recombinant, quadrIvalent,injectable, prese rvative free 09/15/2020 08:33:00 AM EST completed eCW1 ([facility]) influenza, recombinant, quadrIvalent,injectable, prese rvative free 09/15/2020 08:33:00 AM EST completed eCW1 ([facility]) influenza, recombinant, quadrIvalent,injectable, prese rvative free 09/15/2020 08:33:00 AM EST completed eCW1 ([facility]) influenza, recombinant, quadrIvalent,injectable, prese rvative free 09/15/2020 08:33:00 AM EST completed eCW1 ([facility]) influenza, recombinant, quadrIvalent,injectable, prese rvative free 09/15/2020 08:33:00 AM EST completed eCW1 ([facility]) influenza, recombinant, quadrIvalent,injectable, prese rvative free 09/15/2020 08:33:00 AM EST completed eCW1 ([facility]) influenza, recombinant, quadrIvalent,injectable, prese rvative free 09/15/2020 08:33:00 AM EST completed eCW1 ([facility]) influenza, recombinant, quadrIvalent,injectable, prese rvative free 09/15/2020 08:33:00 AM EST completed eCW1 ([facility]) influenza, recombinant, quadrIvalent,injectable, prese rvative free 09/15/2020 08:33:00 AM EST completed eCW1 ([facility]) influenza, recombinant, quadrIvalent,injectable, prese rvative free 09/15/2020 08:33:00 AM EST completed eCW1 ([facility]) Medications Medication Brand Name Start Date Product Form Dose Route Admi nistrative Instructions Pharmacy Instructions Status Indications Reaction Description Data Source(s) 300 mg 11/12/2020 12:00:00 AM EST capsule 60 TAKE ONE CAPSULE BY MOUTH TWICE A DAY MAXIMUM DAILY DOSE = 2 CAPSULES TAKE ONE CAPSULE BY MOUTH TWICE A DAY MAXIMUM DAILY DOSE = 2 CAPSULES SOLD: 11/12/2020 [facility] 10-325 mg 11/10/2020 12:00:00 AM EST tablet 180 TAKE ONE TABLET BY MOUTH EVERY 4 HOURS MAXIMUM DAILY DOSE = SIX TABLETS TAKE ONE TABLET BY MOUTH EVERY 4 HOURS MAXIMUM DAILY DOSE = SIX TABLETS SOLD: 11/10/2020 [facility] 10 mg 11/07/2020 12:00:00 AM EST capsule 30 TAKE ONE CAPSULE BY MOUTH AT BEDTIME NEEDED MAXIMUM DAILY DOSE = 1 CAPSULE TAKE ONE CAPSULE BY MOUTH AT BEDTIME NEEDED MAXIMUM DAILY DOSE = 1 CAPSULE SOLD: 11/10/2020 [facility] Levofloxacin 250 MG Oral Tablet Levofloxacin 250 MG 10/31/2020 1 2:00:00 AM EST 2.0 {tablets} active Levofloxac in 250 MG eCW1 ([facility]) Levofloxacin 250 MG Oral Tablet Levofloxacin 250 MG 10/31/2020 1 2:00:00 AM EST 2.0 {tablets} active Levofloxac in 250 MG eCW1 ([facility]) Levofloxacin 250 MG Oral Tablet Levofloxacin 250 MG 10/31/2020 1 2:00:00 AM EST 2.0 {tablets} active Levofloxac in 250 MG eCW1 ([facility]) Levofloxacin 250 MG Oral Tablet Levofloxacin 250 MG 10/31/2020 1 2:00:00 AM EST 2.0 {tablets} active Levofloxac in 250 MG eCW1 ([facility]) 250 mg 10/31/2020 12:00:00 AM EST tablet 20 TAKE TWO TABLETS BY MOUTH EVERY DAY TAKE TWO TABLETS BY MOUTH EVERY DAY SOLD: 11/01/2020 [facility] valacyclovir 1000 MG Oral Tablet VALACYCLOVIR HCL 10/28/2020 12: 00:00 AM EST tablet 10 TAKE 1 TABLET BY MOUTH EVERY 24 HOUR NEEDED FOR 10 DAYS TAKE 1 TABLET BY MOUTH EVERY 24 HOUR NEEDED FOR 10 DAYS SOLD: 11/01/2020 [facility] 20 mg 10/19/2020 12:00:00 AM EST capsule,ER biphasic 50- 50 30 TAKE ONE CAPSULE BY MOUTH EVERY MORNING MAXIMUM DAILY DOSE = 1 CAPSULE TAKE ONE CAPSULE BY MOUTH EVERY MORNING MAXIMUM DAILY DOSE = 1 CAPSULE SOLD: 10/27/2020 [facility] 300 mg 10/13/2020 12:00:00 AM EST tablet 30 TAKE ONE TABLET BY MOUTH EVERY DAY TAKE ONE TABLET BY MOUTH EVERY DAY SOLD: 10/13/2020 [facility] 300 mg 10/13/2020 12:00:00 AM EST capsule 60 TAKE ONE CAPSULE BY MOUTH TWICE A DAY MAXIMUM DAILY DOSE = 2 CAPSULES TAKE ONE CAPSULE BY MOUTH TWICE A DAY MAXIMUM DAILY DOSE = 2 CAPSULES SOLD: 10/13/2020 [facility] 0.5 % 10/11/2020 12:00:00 AM EST drops 5 INSTILL 1 DROP IN THE RIGHT EYE FOUR TIMES A DAY INSTILL 1 DROP IN THE RIGHT EYE FOUR TIMES A DAY SOLD: 10/12/2020 [facility] 10-325 mg 10/11/2020 12:00:00 AM EST tablet 180 TAKE ONE TABLET BY MOUTH EVERY 4 HOURS MAXIMUM DAILY DOSE = 6 TABLETS TAKE ONE TABLET BY MOUTH EVERY 4 HOURS MAXIMUM DAILY DOSE = 6 TABLETS SOLD: 10/11/2020 [facility] Cyclobenzaprine hydrochloride 10 MG Oral Tablet CYCLOBENZAPR INE HCL 10/11/2020 12:00:00 AM EST tablet 90 TAKE ONE TABLET BY MOUTH THREE TIMES A DAY TAKE ONE TABLET BY MOUTH THREE TIMES A DAY SOLD: 10/12/2020 [facility] 60 mg 10/09/2020 12:00:00 AM EST capsule,biphase delayed releas 30 TAKE ONE CAPSULE BY MOUTH EVERY DAY TAKE ONE CAPSULE BY MOUTH EVERY DAY SOLD: 10/11/2020 [facility] 1 % 10/07/2020 12:00:00 AM EST drops,suspension 10 INSTILL 1 DROP IN THE RIGHT EYE FIVE TIMES A DAY INSTILL 1 DROP IN THE RIGHT EYE FIVE TIMES A DAY SOLD: 10/07/2020 [facility] prednisolone acetate 10 MG/ML Ophthalmic Suspension [Pred Forte] Pred Forte 1% Ophthalmic Suspension Pred Forte 1% Ophthalmic Suspension 10/06/2020 12:00:0 0 AM EST active predniso lone acetate 10 MG/ML Ophthalmic Suspension [Pred Forte] DAVID (Ben Hyde MD [facility]) Ketorolac Tromethamine 5 MG/ML Ophthalmi c Solution Ketorolac Tromethamine 0.5% Ophthalmic Solution Ketorolac Tromethamine 0.5% Ophthalmic Solution 2019 12:00:00 AM EST active ketorolac tromethamine 5 MG/ML Ophthalmic Solution DAVID (Ben Hyde MD [facility]) prednisolone acetate 10 MG/ML Ophthalmic Suspension [Pred Forte] Pred Forte 1% Ophthalmic Suspension Pred Forte 1% Ophthalmic Suspension 09/26/2020 12:00:0 0 AM EST aborted predniso lone acetate 10 MG/ML Ophthalmic Suspension [Pred Forte] DAVID (Ben Hyde MD [facility]) Ketorolac Tromethamine 5 MG/ML Ophthalmi c Solution Ketorolac Tromethamine 0.5% Ophthalmic Solution Ketorolac Tromethamine 0.5% Ophthalmic Solution 2019 12:00:00 AM EST aborted ketorolac tromethamine 5 MG/ML Ophthalmic Solution [place] (Ben Hyde MD [facility]) 1 % 09/26/2020 12:00:00 AM EST drops,suspension 5 INSTILL 1 DROP IN THE RIGHT EYE FOUR TIMES A DAY INSTILL 1 DROP IN THE RIGHT EYE FOUR TIMES A DAY SOLD: 10/06/2020 [facility] 0.5 % 09/26/2020 12:00:00 AM EST drops 5 INSTILL 1 DROP IN THE RIGHT EYE FOUR TIMES A DAY INSTILL 1 DROP IN THE RIGHT EYE FOUR TIMES A DAY SOLD: 10/06/2020 [facility] 20 mg 09/19/2020 12:00:00 AM EST capsule,ER biphasic 50- 50 30 TAKE ONE CAPSULE BY MOUTH EVERY MORNING MAXIMUM DAILY DOSE = 1 CAPSULE TAKE ONE CAPSULE BY MOUTH EVERY MORNING MAXIMUM DAILY DOSE = 1 CAPSULE SOLD: 09/22/2020 [facility] 300 mg 09/14/2020 12:00:00 AM EST capsule 60 TAKE ONE CAPSULE BY MOUTH TWICE A DAY MAXIMUM DAILY DOSE = 2 CAPSULES TAKE ONE CAPSULE BY MOUTH TWICE A DAY MAXIMUM DAILY DOSE = 2 CAPSULES SOLD: 09/15/2020 [facility] 10-325 mg 09/12/2020 12:00:00 AM EST tablet 180 TAKE ONE TABLET BY MOUTH EVERY 4 HOURS MAXIMUM DAILY DOSE = SIX TABLETS TAKE ONE TABLET BY MOUTH EVERY 4 HOURS MAXIMUM DAILY DOSE = SIX TABLETS SOLD: 09/12/2020 [facility] 20 mg 08/27/2020 12:00:00 AM EST capsule,ER biphasic 50- 50 30 TAKE ONE CAPSULE BY MOUTH EVERY DAY IN THE MORNING MAXIMUM DAILY DOSE = 1 CAPSULE TAKE ONE CAPSULE BY MOUTH EVERY DAY IN THE MORNING MAXIMUM DAILY DOSE = 1 CAPSULE SOLD: 08/27/2020 [facility] 31 gauge x 3/16" 08/26/2020 12:00:00 AM EST needle 150 USE DIRECTED 5 TIMES USE DIRECTED 5 TIMES SOLD: 08/27/2020 [facility] 20 mg 08/26/2020 12:00:00 AM EST tablet 60 TAKE TWO TABLETS BY MOUTH EVERY DAY TAKE TWO TABLETS BY MOUTH EVERY DAY SOLD: 10/11/2020 [facility] 20 mg 08/26/2020 12:00:00 AM EST tablet 60 TAKE TWO TABLETS BY MOUTH EVERY DAY TAKE TWO TABLETS BY MOUTH EVERY DAY SOLD: 08/27/2020 [facility] Pen Mcclelland 3/16" 31G X 5 MM Pen Mcclelland 3/16" 31G X 5 MM 12:00:00 AM EST active Pen Mcclelland 3/16" 31G X 5 MM eCW1 ([facility]) Pen Mcclelland 3/16" 31G X 5 MM Pen Mcclelland 3/16" 31G X 5 MM 12:00:00 AM EST active Pen Mcclelland 3/16" 31G X 5 MM eCW1 ([facility]) Pen Mcclelland 3/16" 31G X 5 MM Pen Mcclelland 3/16" 31G X 5 MM 12:00:00 AM EST active Pen Mcclelland 3/16" 31G X 5 MM eCW1 ([facility]) Pen Mcclelland 3/16" 31G X 5 MM Pen Mcclelland 3/16" 31G X 5 MM 12:00:00 AM EST active Pen Mcclelland 3/16" 31G X 5 MM eCW1 ([facility]) Pen Mcclelland 3/16" 31G X 5 MM Pen Mcclelland 3/16" 31G X 5 MM 12:00:00 AM EST active Pen Mcclelland 3/16" 31G X 5 MM eCW1 ([facility]) Pen Mcclelland 3/16" 31G X 5 MM Pen Mcclelland 3/16" 31G X 5 MM 12:00:00 AM EST active Pen Mcclelland 3/16" 31G X 5 MM eCW1 ([facility]) Pen Mcclelland 3/16" 31G X 5 MM Pen Mcclelland 3/16" 31G X 5 MM 12:00:00 AM EST active Pen Mcclelland 3/16" 31G X 5 MM eCW1 ([facility]) Pen Mcclelland 3/16" 31G X 5 MM Pen Mcclelland 3/16" 31G X 5 MM 12:00:00 AM EST active Pen Mcclelland 3/16" 31G X 5 MM eCW1 ([facility]) Pen Mcclelland 3/16" 31G X 5 MM Pen Mcclelland 3/16" 31G X 5 MM 12:00:00 AM EST active Pen Mcclelland 3/16" 31G X 5 MM eCW1 ([facility]) Pen Mcclelland 3/16" 31G X 5 MM Pen Mcclelland 3/16" 31G X 5 MM 12:00:00 AM EST active Pen Mcclelland 3/16" 31G X 5 MM eCW1 ([facility]) Pen Mcclelland 3/16" 31G X 5 MM Pen Mcclelland 3/16" 31G X 5 MM 12:00:00 AM EST active Pen Mcclelland 3/16" 31G X 5 MM eCW1 ([facility]) Pen Mcclelland 3/16" 31G X 5 MM Pen Mcclelland 3/16" 31G X 5 MM 12:00:00 AM EST active Pen Mcclelland 3/16" 31G X 5 MM eCW1 ([facility]) Pen Mcclelland 3/16" 31G X 5 MM Pen Mcclelland 3/16" 31G X 5 MM 12:00:00 AM EST active Pen Mcclelland 3/16" 31G X 5 MM eCW1 ([facility]) Pen Mcclelland 3/16" 31G X 5 MM Pen Mcclelland 3/16" 31G X 5 MM 12:00:00 AM EST active Pen Mcclelland 3/16" 31G X 5 MM eCW1 ([facility]) Pen Mcclelland 3/16" 31G X 5 MM Pen Mcclelland 3/16" 31G X 5 MM 12:00:00 AM EST active Pen Mcclelland 3/16" 31G X 5 MM eCW1 ([facility]) Pen Mcclelland 3/16" 31G X 5 MM Pen Mcclelland 3/16" 31G X 5 MM 12:00:00 AM EST active Pen Mcclelland 3/16" 31G X 5 MM eCW1 ([facility]) Pen Mcclelland 3/16" 31G X 5 MM Pen Mcclelland 3/16" 31G X 5 MM 12:00:00 AM EST active Pen Mcclelland 3/16" 31G X 5 MM eCW1 ([facility]) Pen Mcclelland 3/16" 31G X 5 MM Pen Mcclelland 3/16" 31G X 5 MM 12:00:00 AM EST active Pen Mcclelland 3/16" 31G X 5 MM eCW1 ([facility]) moxifloxacin 5 MG/ML Ophthalmic Solution Moxifloxacin HCl 0.5% Ophthalmic Solution Moxifloxacin HCl 0.5% Ophthalmic Solution 08/22/2020 12:00:00 AM EST active moxifloxacin 5 MG/ML Oph thalmic Solution DAVID (Ben Hyde MD [facility]) BromSite 0.075% Ophthalmic Solution BromSite 0.075% Ophthalm ic Solution 08/22/2020 12:00:00 AM EST active bromfenac 0.75 MG/ML Ophthalmic Solution [Bromsite] DAVID (Ben Hyde MD [facility]) Inveltys 1% Ophthalmic Suspension Inveltys 1% Ophthalmic Sunita pension 08/22/2020 12:00:00 AM EST active loteprednol etabonate 10 MG/ML Ophthalmic Suspension [Inveltys] DAVID (Ben Hyde MD [facility]) moxifloxacin 5 MG/ML Ophthalmic Solution 0.5 % MOXIFLOXACIN HCL 08/22/2020 12:00:00 AM EST drops 3 STARTING 3 DAYS PRIOR TO SURGERY, INSTILL ONE DROP IN THE RIGHT EYE FOUR TIMES A DAY STARTING 3 DAYS PRIOR TO SURGERY, INSTIL L ONE DROP IN THE RIGHT EYE FOUR TIMES A DAY SOLD: 08/25/2020 [facility] 1 % 08/22/2020 12:00:00 AM EST drops,suspension 2 DAY OF SURGERY, REMOVE PATCH AND START ONE DROP IN THE RIGHT EYE TWO TIMES A DAY DAY OF SURGERY, REMOVE PATCH AND START ONE DROP IN THE RIGHT EYE TWO TIMES A DAY SOLD: 09/08/2020 [facility] moxifloxacin 5 MG/ML Ophthalmic Solution 0.5 % MOXIFLOXACIN HCL 08/22/2020 12:00:00 AM EST drops 3 STARTING 3 DAYS PRIOR TO SURGERY, INSTILL ONE DROP IN THE RIGHT EYE FOUR TIMES A DAY STARTING 3 DAYS PRIOR TO SURGERY, INSTIL L ONE DROP IN THE RIGHT EYE FOUR TIMES A DAY SOLD: 09/08/2020 [facility] 1 % 08/22/2020 12:00:00 AM EST drops,suspension 2 DAY OF SURGERY, REMOVE PATCH AND START ONE DROP IN THE RIGHT EYE TWO TIMES A DAY DAY OF SURGERY, REMOVE PATCH AND START ONE DROP IN THE RIGHT EYE TWO TIMES A DAY SOLD: 08/25/2020 [facility] 0.075 % 08/22/2020 12:00:00 AM EST drops 5 THREE DAYS PRIOR TO SURGERY , START ONE DROP IN THE RIGHT EYE TWO TIMES A DAY THREE DAYS PRIOR TO SURGERY , START ONE DROP IN THE RIGHT EYE TWO TIMES A DAY SOLD: 08/25/2020 [facility] 0.075 % 08/22/2020 12:00:00 AM EST drops 5 THREE DAYS PRIOR TO SURGERY , START ONE DROP IN THE RIGHT EYE TWO TIMES A DAY THREE DAYS PRIOR TO SURGERY , START ONE DROP IN THE RIGHT EYE TWO TIMES A DAY SOLD: 09/22/2020 [facility] 200 unit/mL (3 mL) 08/17/2020 12:00:00 AM EDT insulin pen 45 INJECT 320 UNITS SUBCUTANEOUSLY DAILY INJECT 320 UNITS SUBCUTANEOUSLY DAILY SOLD: 10/11/2020 [facility] Levofloxacin 250 MG Oral Tablet Levofloxacin 250 MG 08/15/2020 1 2:00:00 AM EDT 1.0 {tablet} suspended Levofloxa pa 250 MG eCW1 ([facility]) Levofloxacin 250 MG Oral Tablet Levofloxacin 250 MG 08/15/2020 1 2:00:00 AM EDT 1.0 {tablet} active Levofloxaci n 250 MG eCW1 ([facility]) Eszopiclone 3 MG Oral Tablet ESZOPICLONE 08/15/2020 12:00:00 AM EDT ta blet 30 TAKE ONE TABLET BY MOUTH AT BEDTIME MAXIMUM DAILY DOSE = 1 TAKE ONE TABLET BY MOUTH AT BEDTIME MAXIMUM DAILY DOSE = 1 SOLD: 08/16/2020 [facility] Levofloxacin 250 MG Oral Tablet Levofloxacin 250 MG 08/15/2020 1 2:00:00 AM EDT 1.0 {tablet} active Levofloxaci n 250 MG eCW1 ([facility]) Levofloxacin 250 MG Oral Tablet Levofloxacin 250 MG 08/15/2020 1 2:00:00 AM EDT 1.0 {tablet} active Levofloxaci n 250 MG eCW1 ([facility]) 250 mg 08/15/2020 12:00:00 AM EDT tablet 28 TAKE ONE TABLET BY MOUTH TWICE A DAY FOR 14 DAYS TAKE ONE TABLET BY MOUTH TWICE A DAY FOR 14 DAYS SOLD: 08/16/2020 [facility] Levofloxacin 250 MG Oral Tablet Levofloxacin 250 MG 08/15/2020 1 2:00:00 AM EDT 1.0 {tablet} suspended Levofloxa pa 250 MG eCW1 ([facility]) Levofloxacin 250 MG Oral Tablet Levofloxacin 250 MG 08/15/2020 1 2:00:00 AM EDT 1.0 {tablet} suspended Levofloxa pa 250 MG eCW1 ([facility]) Levofloxacin 250 MG Oral Tablet Levofloxacin 250 MG 08/15/2020 1 2:00:00 AM EDT 1.0 {tablet} suspended Levofloxa pa 250 MG eCW1 ([facility]) Levofloxacin 250 MG Oral Tablet Levofloxacin 250 MG 08/15/2020 1 2:00:00 AM EDT 1.0 {tablet} suspended Levofloxa pa 250 MG eCW1 ([facility]) Levofloxacin 250 MG Oral Tablet Levofloxacin 250 MG 08/15/2020 1 2:00:00 AM EDT 1.0 {tablet} suspended Levofloxa pa 250 MG eCW1 ([facility]) 10-325 mg 08/13/2020 12:00:00 AM EDT tablet 180 TAKE ONE TABLET BY MOUTH EVERY 4 HOURS MAXIMUM DAILY DOSE = SIX TABLETS TAKE ONE TABLET BY MOUTH EVERY 4 HOURS MAXIMUM DAILY DOSE = SIX TABLETS SOLD: 08/14/2020 [facility] 200 unit/mL (3 mL) 07/22/2020 12:00:00 AM EDT insulin pen 12 INJECT THREE TIMES A DAY PER SLIDING SCALE MAXIMUM DAILY DOSE = 40 UNITS INJECT THREE TIMES A DAY PER SLIDING SCALE MAXIMUM DAILY DOSE = 40 UNITS SOLD: 08/16/2020 [facility] 300 mg 07/22/2020 12:00:00 AM EDT capsule 60 TAKE ONE CAPSULE BY MOUTH TWICE A DAY MAXIMUM DAILY DOSE = 2 TAKE ONE CAPSULE BY MOUTH TWICE A DAY PJ LOPEZ DAILY DOSE = 2 SOLD: 07/23/2020 [facility] 2 mg 07/22/2020 12:00:00 AM EDT tablet 60 TAKE 1 TABLET BY MOUTH AT 8:00PM AND 1 TABLET AT MIDNIGHT TAKE 1 TABLET BY MOUTH AT 8:00PM AND 1 T ABLET AT MIDNIGHT SOLD: 07/23/2020 [facility] 200 unit/mL (3 mL) 07/22/2020 12:00:00 AM EDT insulin pen 12 INJECT THREE TIMES A DAY PER SLIDING SCALE MAXIMUM DAILY DOSE = 40 UNITS INJECT THREE TIMES A DAY PER SLIDING SCALE MAXIMUM DAILY DOSE = 40 UNITS SOLD: 07/23/2020 [facility] 20 mg 07/17/2020 12:00:00 AM EDT capsule,ER biphasic 50- 50 30 TAKE ONE CAPSULE BY MOUTH EVERY MORNING MAXIMUM DAILY DOSE = 1 TAKE ONE CAPSULE BY MOUTH EVERY MORNING MAXIMUM DAILY DOSE = 1 SOLD: 07/17/2020 [facility] 0.4 mg 07/17/2020 12:00:00 AM EDT capsule 30 TAKE ONE CAPSULE BY MOUTH EVERY DAY TAKE ONE CAPSULE BY MOUTH EVERY DAY SOLD: 07/17/2020 [facility] 0.4 mg 07/17/2020 12:00:00 AM EDT capsule 30 TAKE ONE CAPSULE BY MOUTH EVERY DAY TAKE ONE CAPSULE BY MOUTH EVERY DAY SOLD: 10/11/2020 [facility] 0.4 mg 07/17/2020 12:00:00 AM EDT capsule 30 TAKE ONE CAPSULE BY MOUTH EVERY DAY TAKE ONE CAPSULE BY MOUTH EVERY DAY SOLD: 09/15/2020 [facility] 0.4 mg 07/17/2020 12:00:00 AM EDT capsule 30 TAKE ONE CAPSULE BY MOUTH EVERY DAY TAKE ONE CAPSULE BY MOUTH EVERY DAY SOLD: 08/16/2020 [facility] 10-325 mg 07/17/2020 12:00:00 AM EDT tablet 180 TAKE ONE TABLET BY MOUTH EVERY 4 HOURS MAXIMUM DAILY DOSE = 6 TAKE ONE TABLET BY MOUTH EVERY 4 HOURS MAXIMUM DAILY DOSE = 6 SOLD: 07/17/2020 [facility] 3 mg 07/12/2020 12:00:00 AM EDT tablet 30 TAKE ONE TABLET BY MOUTH AT BEDTIME MAXIMUM DAILY DOSE = 1 TABLET TAKE ONE TABLET BY MOUTH AT BEDTIME MAXIMUM DAILY DOSE = 1 TABLET SOLD: 07/17/2020 [facility] loteprednol etabonate 5 MG/ML Ophthalmic Suspension [Lotemax] Lotemax 0.5% Ophthalmic Suspension Lotemax 0.5% Ophthalmic Suspension 06/27/2020 12:00:00 AM EDT aborted lotepred nol etabonate 5 MG/ML Ophthalmic Suspension [Lotemax] DAVID (Ben Hyde MD [facility]) Cephalexin 500 MG Oral Capsule CEPHALEXIN 06/27/2020 12:00:00 AM EDT capsule 28 TAKE ONE CAPSULE BY MOUTH TWICE A DAY TAKE ONE CAPSULE BY [facility] TWICE A DAY SOLD: 06/27/2020 [facility] 0.5 % 06/27/2020 12:00:00 AM EDT drops,suspension 10 INSTILL ONE DROP IN EACH EYE THREE TIMES A DAY INSTILL ONE DROP IN EACH EYE THREE TIMES A DAY SOLD: 06/27/2020 [facility] 2 mg 06/21/2020 12:00:00 AM EDT tablet extended release 24 hr 60 TAKE ONE TABLET BY MOUTH TWICE A DAY TAKE ONE TABLET BY MOUTH TWICE A DAY SOLD: 06/24/2020 [facility] 2 mg 06/21/2020 12:00:00 AM EDT tablet extended release 24 hr 60 TAKE ONE TABLET BY MOUTH TWICE A DAY TAKE ONE TABLET BY MOUTH TWICE A DAY SOLD: 08/16/2020 [facility] 300 mg 06/20/2020 12:00:00 AM EDT capsule 60 TAKE ONE CAPSULE BY MOUTH TWICE A DAY MAXIMUM DAILY DOSE = 2 CAPSULES TAKE ONE CAPSULE BY MOUTH TWICE A DAY MAXIMUM DAILY DOSE = 2 CAPSULES SOLD: 06/24/2020 [facility] 100 mg 06/18/2020 12:00:00 AM EDT tablet 60 TAKE TWO TABLETS BY MOUTH AT BEDTIME TAKE TWO TABLETS BY MOUTH AT BEDTIME SOLD: 06/18/2020 [facility] Trazodone Hydrochloride 100 MG Oral Tablet TRAZODONE HCL 06/18/2020 12:00:00 AM EDT tablet 60 TAKE TWO TABLETS BY MOUTH AT BEDTIME TAKE TWO TABLETS BY MOUTH AT BEDTIME SOLD: 07/17/2020 [facility] Trazodone Hydrochloride 100 MG Oral Tablet TRAZODONE HCL 06/18/2020 12:00:00 AM EDT tablet 60 TAKE TWO TABLETS BY MOUTH AT BEDTIME TAKE TWO TABLETS BY MOUTH AT BEDTIME SOLD: 08/16/2020 [facility] 20 mg 06/18/2020 12:00:00 AM EDT capsule,ER biphasic 50- 50 30 TAKE ONE CAPSULE BY MOUTH EVERY MORNING MAXIMUM DAILY DOSE = 1 CAPSULE TAKE ONE CAPSULE BY MOUTH EVERY MORNING MAXIMUM DAILY DOSE = 1 CAPSULE SOLD: 06/18/2020 [facility] Trazodone Hydrochloride 100 MG Oral Tablet TRAZODONE HCL 06/18/2020 12:00:00 AM EDT tablet 60 TAKE TWO TABLETS BY MOUTH AT BEDTIME TAKE TWO TABLETS BY MOUTH AT BEDTIME SOLD: 09/15/2020 [facility] 10-325 mg 06/18/2020 12:00:00 AM EDT tablet 180 TAKE ONE TABLET BY MOUTH EVERY 4 HOURS MAXIMUM DAILY DOSE = 6 TABLETS TAKE ONE TABLET BY MOUTH EVERY 4 HOURS MAXIMUM DAILY DOSE = 6 TABLETS SOLD: 06/18/2020 [facility] Trazodone Hydrochloride 100 MG Oral Tablet TRAZODONE HCL 06/18/2020 12:00:00 AM EDT tablet 60 TAKE TWO TABLETS BY MOUTH AT BEDTIME TAKE TWO TABLETS BY MOUTH AT BEDTIME SOLD: 10/11/2020 [facility] FLASH GLUCOSE SENSOR 06/16/2020 12:00:00 AM EDT kit 2 DIRECTED DIRECTED SOLD: 09/15/2020 [facility] FLASH GLUCOSE SENSOR 06/16/2020 12:00:00 AM EDT kit 2 DIRECTED DIRECTED SOLD: 08/16/2020 [facility] FLASH GLUCOSE SENSOR 06/16/2020 12:00:00 AM EDT kit 2 DIRECTED DIRECTED SOLD: 10/11/2020 [facility] FLASH GLUCOSE SENSOR 06/16/2020 12:00:00 AM EDT kit 2 DIRECTED DIRECTED SOLD: 06/18/2020 [facility] FLASH GLUCOSE SENSOR 06/16/2020 12:00:00 AM EDT kit 2 DIRECTED DIRECTED SOLD: 07/17/2020 [facility] Eszopiclone 3 MG Oral Tablet ESZOPICLONE 06/09/2020 12:00:00 AM EDT ta blet 30 TAKE ONE TABLET BY MOUTH AT BEDTIME MAXIMUM DAILY DOSE = 1 TABLET TAKE ONE TABLET BY MOUTH AT BEDTIME MAXIMUM DAILY DOSE = 1 TABLET SOLD: 06/13/2020 [facility] doxycycline hyclate 100 MG Oral Capsule DOXYCYCLINE HYCLATE 05/31/2020 12:00:00 AM EDT capsule 12 TAKE ONE CAPSULE BY MOUTH TW ICE A DAY FOR 6 DAYS TAKE ONE CAPSULE BY MOUTH TWICE A DAY FOR 6 DAYS SOLD: 06/13/2020 [facility] 300 mg 05/23/2020 12:00:00 AM EDT capsule 60 TAKE ONE CAPSULE BY MOUTH TWICE A DAY MAXIMUM DAILY DOSE = 2 CAPSULES TAKE ONE CAPSULE BY MOUTH TWICE A DAY MAXIMUM DAILY DOSE = 2 CAPSULES SOLD: 05/31/2020 [facility] 10-325 mg 05/21/2020 12:00:00 AM EDT tablet 180 TAKE ONE TABLET BY MOUTH EVERY 4 HOURS MAXIMUM DAILY DOSE = 6 TAKE ONE TABLET BY MOUTH EVERY 4 HOURS MAXIMUM DAILY DOSE = 6 SOLD: 05/21/2020 [facility] 60 mg 05/15/2020 12:00:00 AM EDT capsule,delayed release (DR/EC) 60 TAKE TWO CAPSULES BY MOUTH EVERY DAY TAKE TWO CAPSULES BY MOUTH EVERY DAY SOLD: 09/15/2020 [facility] 60 mg 05/15/2020 12:00:00 AM EDT capsule,delayed release (DR/EC) 60 TAKE TWO CAPSULES BY MOUTH EVERY DAY TAKE TWO CAPSULES BY MOUTH EVERY DAY SOLD: 10/11/2020 [facility] 60 mg 05/15/2020 12:00:00 AM EDT capsule,delayed release (DR/EC) 60 TAKE TWO CAPSULES BY MOUTH EVERY DAY TAKE TWO CAPSULES BY MOUTH EVERY DAY SOLD: 08/16/2020 [facility] 60 mg 05/15/2020 12:00:00 AM EDT capsule,delayed release (DR/EC) 60 TAKE TWO CAPSULES BY MOUTH EVERY DAY TAKE TWO CAPSULES BY MOUTH EVERY DAY SOLD: 05/17/2020 [facility] 60 mg 05/15/2020 12:00:00 AM EDT capsule,delayed release (DR/EC) 60 TAKE TWO CAPSULES BY MOUTH EVERY DAY TAKE TWO CAPSULES BY MOUTH EVERY DAY SOLD: 07/17/2020 [facility] 60 mg 05/15/2020 12:00:00 AM EDT capsule,delayed release (DR/EC) 60 TAKE TWO CAPSULES BY MOUTH EVERY DAY TAKE TWO CAPSULES BY MOUTH EVERY DAY SOLD: 06/13/2020 [facility] 100,000 unit/gram 05/13/2020 12:00:00 AM EDT powder 60 APPLY TO AFFECTED AREA(S) DIRECTED 2-3 TIMES PER DAY APPLY TO AFFECTED AREA(S) DIRECTED 2- 3 TIMES PER DAY SOLD: 05/17/2020 [facility] Wheelchair - Wheelchair - 04/28/2020 12:00:00 AM EDT active Wheelchair - eCW1 ([facility]) Wheelchair - Wheelchair - 04/28/2020 12:00:00 AM EDT active Wheelchair - eCW1 ([facility]) Wheelchair - Wheelchair - 04/28/2020 12:00:00 AM EDT active Wheelchair - eCW1 ([facility]) Wheelchair - Wheelchair - 04/28/2020 12:00:00 AM EDT active Wheelchair - eCW1 ([facility]) Wheelchair - Wheelchair - 04/28/2020 12:00:00 AM EDT active Wheelchair - eCW1 ([facility]) Wheelchair - Wheelchair - 04/28/2020 12:00:00 AM EDT active Wheelchair - eCW1 ([facility]) Wheelchair - Wheelchair - 04/28/2020 12:00:00 AM EDT active Wheelchair - eCW1 ([facility]) Wheelchair - Wheelchair - 04/28/2020 12:00:00 AM EDT active Wheelchair - eCW1 ([facility]) Wheelchair - Wheelchair - 04/28/2020 12:00:00 AM EDT active Wheelchair - eCW1 ([facility]) Wheelchair - Wheelchair - 04/28/2020 12:00:00 AM EDT active Wheelchair - eCW1 ([facility]) Wheelchair - Wheelchair - 04/28/2020 12:00:00 AM EDT active Wheelchair - eCW1 ([facility]) Wheelchair - Wheelchair - 04/28/2020 12:00:00 AM EDT active Wheelchair - eCW1 ([facility]) Wheelchair - Wheelchair - 04/28/2020 12:00:00 AM EDT active Wheelchair - eCW1 ([facility]) Wheelchair - Wheelchair - 04/28/2020 12:00:00 AM EDT active Wheelchair - eCW1 ([facility]) Wheelchair - Wheelchair - 04/28/2020 12:00:00 AM EDT active Wheelchair - eCW1 ([facility]) Wheelchair - Wheelchair - 04/28/2020 12:00:00 AM EDT active Wheelchair - eCW1 ([facility]) Wheelchair - Wheelchair - 04/28/2020 12:00:00 AM EDT active Wheelchair - eCW1 ([facility]) Wheelchair - Wheelchair - 04/28/2020 12:00:00 AM EDT active Wheelchair - eCW1 ([facility]) Wheelchair - Wheelchair - 04/28/2020 12:00:00 AM EDT active Wheelchair - eCW1 ([facility]) Wheelchair - Wheelchair - 04/28/2020 12:00:00 AM EDT active Wheelchair - eCW1 ([facility]) Wheelchair - Wheelchair - 04/28/2020 12:00:00 AM EDT active Wheelchair - eCW1 ([facility]) Wheelchair - Wheelchair - 04/28/2020 12:00:00 AM EDT active Wheelchair - eCW1 ([facility]) Wheelchair - Wheelchair - 04/28/2020 12:00:00 AM EDT active Wheelchair - eCW1 ([facility]) Wheelchair - Wheelchair - 04/28/2020 12:00:00 AM EDT active Wheelchair - eCW1 ([facility]) Wheelchair - Wheelchair - 04/28/2020 12:00:00 AM EDT active Wheelchair - eCW1 ([facility]) Wheelchair - Wheelchair - 04/28/2020 12:00:00 AM EDT active Wheelchair - eCW1 ([facility]) Wheelchair - Wheelchair - 04/28/2020 12:00:00 AM EDT active Wheelchair - eCW1 ([facility]) Wheelchair - Wheelchair - 04/28/2020 12:00:00 AM EDT active Wheelchair - eCW1 ([facility]) 3 mg 04/24/2020 12:00:00 AM EDT tablet 30 TAKE ONE TABLET BY MOUTH AT BEDTIME MAXIMUM DAILY DOSE = ONE TABLET TAKE ONE TABLET BY MOUTH AT BEDTIME MAXIMUM DAILY DOSE = ONE TABLET SOLD: 05/11/2020 [facility] 300 mg 04/22/2020 12:00:00 AM EDT capsule 60 TAKE ONE CAPSULE BY MOUTH TWICE A DAY * MAXIMUM DAILY DOSE = 2 TAKE ONE CAPSULE BY MOUTH TWICE A DAY * MAXIMUM DAILY DOSE = 2 SOLD: 04/24/2020 [facility] 10-325 mg 04/21/2020 12:00:00 AM EDT tablet 180 TAKE ONE TABLET BY MOUTH EVERY 4 HOURS MAXIMUM DAILY DOSE = SIX TABLETS TAKE ONE TABLET BY MOUTH EVERY 4 HOURS MAXIMUM DAILY DOSE = SIX TABLETS SOLD: 04/21/2020 [facility] 20 mg 04/21/2020 12:00:00 AM EDT capsule,ER biphasic 50- 50 30 TAKE ONE CAPSULE BY MOUTH EVERY MORNING MAXIMUM DAILY DOSE = ONE CAPSULE TAKE ONE CAPSULE BY MOUTH EVERY MORNING MAXIMUM DAILY DOSE = ONE CAPSULE SOLD: 04/21/2020 [facility] Cephalexin 500 MG Oral Capsule [Keflex] Keflex 04/14/2020 12:00:0 0 AM EDT ORAL completed MEDENT ([facility]) Sulfamethoxazole 800 MG / Trimethoprim 160 MG Oral Tablet [B actrim] Bactrim DS 04/14/2020 12:00:00 AM EDT ORAL active MEDENT ([facility]) Amoxicillin 500 MG / Clavulanate 125 MG Oral Tablet [Augment in] Augmentin 04/14/2020 12:00:00 AM EDT ORAL active MEDENT ([facility]) Cephalexin 500 MG Oral Capsule [Keflex] Keflex 04/14/2020 12:00:0 0 AM EDT ORAL completed [facility] ([facility]) Cephalexin 500 MG Oral Capsule CEPHALEXIN 04/14/2020 12:00:00 AM EDT capsule 20 TAKE ONE CAPSULE BY MOUTH TWICE A DAY FOR 10 DAYS TAKE ONE CAPSULE BY MOUTH TWICE A DAY FOR 10 DAYS SOLD: 04/14/2020 [facility] 5-325 mg 03/31/2020 12:00:00 AM EDT tablet 30 TAKE ONE TO TWO TABLETS BY MOUTH EVERY 6 HOURS NEEDED FOR POST SURGICAL PAIN MAXIMUM DAILY DOSE = 6 TAKE ONE TO TWO TABLETS BY MOUTH EVERY 6 HOURS NEEDED FOR POST SURGICAL PAIN MAXIMUM DAILY DOSE = 6 SOLD: 03/31/2020 [facility] 3 mg 03/27/2020 12:00:00 AM EDT tablet 30 TAKE ONE TABLET BY MOUTH AT BEDTIME MAXIMUM DAILY DOSE = 1 TABLET TAKE ONE TABLET BY MOUTH AT BEDTIME MAXIMUM DAILY DOSE = 1 TABLET SOLD: 03/30/2020 [facility] 300 mg 03/23/2020 12:00:00 AM EDT capsule 60 TAKE ONE CAPSULE BY MOUTH TWICE A DAY MAXIMUM DAILY DOSE = 2 CAPSULES TAKE ONE CAPSULE BY MOUTH TWICE A DAY MAXIMUM DAILY DOSE = 2 CAPSULES SOLD: 03/30/2020 [facility] 10-325 mg 03/22/2020 12:00:00 AM EDT tablet 180 TAKE ONE TABLET BY MOUTH EVERY 4 HOURS MAXIMUM DAILY DOSE = 6 TABLETS TAKE ONE TABLET BY MOUTH EVERY 4 HOURS MAXIMUM DAILY DOSE = 6 TABLETS SOLD: 03/22/2020 [facility] 20 mg 03/22/2020 12:00:00 AM EDT capsule,ER biphasic 50- 50 30 TAKE ONE CAPSULE BY MOUTH EVERY MORNING MAXIMUM DAILY DOSE = 1 CAPSULE TAKE ONE CAPSULE BY MOUTH EVERY MORNING MAXIMUM DAILY DOSE = 1 CAPSULE SOLD: 03/22/2020 [facility] 5-325 mg 03/21/2020 12:00:00 AM EDT tablet 20 TAKE ONE TO TWO TABLETS BY MOUTH EVERY 6 HOURS NEEDED FOR POST SURGICAL PAIN MAXIMUM DAILY DOSE = 8 TABLETS TAKE ONE TO TWO TABLETS BY MOUTH EVERY 6 HOURS NEEDED FOR POST SURGICAL PAIN MAXIMUM DAILY DOSE = 8 TABLETS SOLD: 03/21/2020 [facility] 20 mg 03/19/2020 12:00:00 AM EDT tablet 60 TAKE TWO TABLETS BY MOUTH EVERY DAY TAKE TWO TABLETS BY MOUTH EVERY DAY SOLD: 04/14/2020 [facility] 20 mg 03/19/2020 12:00:00 AM EDT tablet 60 TAKE TWO TABLETS BY MOUTH EVERY DAY TAKE TWO TABLETS BY MOUTH EVERY DAY SOLD: 06/13/2020 [facility] 20 mg 03/19/2020 12:00:00 AM EDT tablet 60 TAKE TWO TABLETS BY MOUTH EVERY DAY TAKE TWO TABLETS BY MOUTH EVERY DAY SOLD: 03/21/2020 [facility] Acetaminophen 325 MG / Oxycodone Hydrochloride 5 MG Or al Tablet Oxycodone-Acetaminophen 03/19/2020 12:00:00 AM EDT ORAL completed MEDENT ([facility]) Acetaminophen 325 MG / Oxycodone Hydrochloride 5 MG Or al Tablet Oxycodone-Acetaminophen 03/18/2020 12:00:00 AM EDT ORAL completed MEDENT ([facility]) 3 mg 02/28/2020 12:00:00 AM EDT tablet 30 TAKE ONE TABLET BY MOUTH AT BEDTIME MAXIMUM DAILY DOSE = 1 TABLET TAKE ONE TABLET BY MOUTH AT BEDTIME MAXIMUM DAILY DOSE = 1 TABLET SOLD: 03/09/2020 [facility] 10-325 mg 02/22/2020 12:00:00 AM EDT tablet 180 TAKE ONE TABLET BY MOUTH EVERY 4 HOURS MAXIMUM DAILY DOSE = 6 TABLETS TAKE ONE TABLET BY MOUTH EVERY 4 HOURS MAXIMUM DAILY DOSE = 6 TABLETS SOLD: 02/22/2020 [facility] 300 mg 02/22/2020 12:00:00 AM EDT capsule 60 TAKE ONE CAPSULE BY MOUTH TWICE A DAY MAXIMUM DAILY DOSE = 2 CAPSULES TAKE ONE CAPSULE BY MOUTH TWICE A DAY MAXIMUM DAILY DOSE = 2 CAPSULES SOLD: 02/22/2020 [facility] 20 mg 02/22/2020 12:00:00 AM EDT capsule,ER biphasic 50- 50 30 TAKE ONE CAPSULE BY MOUTH EVERY MORNING MAXIMUM DAILY DOSE = 1 CAPSULE TAKE ONE CAPSULE BY MOUTH EVERY MORNING MAXIMUM DAILY DOSE = 1 CAPSULE SOLD: 02/22/2020 [facility] 10 mg 02/07/2020 12:00:00 AM EDT tablet 90 TAKE ONE TABLET BY MOUTH THREE TIMES A DAY TAKE ONE TABLET BY MOUTH THREE TIMES A DAY SOLD: 02/08/2020 [facility] Cyclobenzaprine hydrochloride 10 MG Oral Tablet CYCLOBENZAPR INE HCL 02/07/2020 12:00:00 AM EDT tablet 90 TAKE ONE TABLET BY MOUTH THREE TIMES A DAY TAKE ONE TABLET BY MOUTH THREE TIMES A DAY SOLD: 06/13/2020 [facility] Cyclobenzaprine hydrochloride 10 MG Oral Tablet CYCLOBENZAPR INE HCL 02/07/2020 12:00:00 AM EDT tablet 90 TAKE ONE TABLET BY MOUTH THREE TIMES A DAY TAKE ONE TABLET BY MOUTH THREE TIMES A DAY SOLD: 04/14/2020 [facility] Cyclobenzaprine hydrochloride 10 MG Oral Tablet CYCLOBENZAPR INE HCL 02/07/2020 12:00:00 AM EDT tablet 90 TAKE ONE TABLET BY MOUTH THREE TIMES A DAY TAKE ONE TABLET BY MOUTH THREE TIMES A DAY SOLD: 03/09/2020 [facility] Cyclobenzaprine hydrochloride 10 MG Oral Tablet CYCLOBENZAPR INE HCL 02/07/2020 12:00:00 AM EDT tablet 90 TAKE ONE TABLET BY MOUTH THREE TIMES A DAY TAKE ONE TABLET BY MOUTH THREE TIMES A DAY SOLD: 07/17/2020 [facility] Cyclobenzaprine hydrochloride 10 MG Oral Tablet CYCLOBENZAPR INE HCL 02/07/2020 12:00:00 AM EDT tablet 90 TAKE ONE TABLET BY MOUTH THREE TIMES A DAY TAKE ONE TABLET BY MOUTH THREE TIMES A DAY SOLD: 08/16/2020 [facility] 3 mg 01/31/2020 12:00:00 AM EDT tablet 30 TAKE ONE TABLET BY MOUTH AT BEDTIME MAXIMUM DAILY DOSE = 1 TABLET TAKE ONE TABLET BY MOUTH AT BEDTIME MAXIMUM DAILY DOSE = 1 TABLET SOLD: 02/07/2020 [facility] 20 mg 01/25/2020 12:00:00 AM EDT capsule,ER biphasic 50- 50 30 TAKE ONE CAPSULE BY MOUTH EVERY MORNING MAXIMUM DAILY DOSE = 1 CAPSULE TAKE ONE CAPSULE BY MOUTH EVERY MORNING MAXIMUM DAILY DOSE = 1 CAPSULE SOLD: 02/07/2020 [facility] 300 mg 01/25/2020 12:00:00 AM EDT capsule 60 TAKE ONE CAPSULE BY MOUTH TWICE A DAY MAXIMUM DAILY DOSE = 2 TAKE ONE CAPSULE BY MOUTH TWICE A DAY MA XIMUM DAILY DOSE = 2 SOLD: 01/25/2020 [facility] 10-325 mg 01/25/2020 12:00:00 AM EDT tablet 180 TAKE ONE TABLET BY MOUTH EVERY 4 HOURS MAXIMUM DAILY DOSE = SIX TABLETS TAKE ONE TABLET BY MOUTH EVERY 4 HOURS MAXIMUM DAILY DOSE = SIX TABLETS SOLD: 01/25/2020 [facility] 60 mg 01/15/2020 12:00:00 AM EDT capsule,biphase delayed releas 30 TAKE ONE CAPSULE BY MOUTH EVERY DAY TAKE ONE CAPSULE BY MOUTH EVERY DAY SOLD: 08/16/2020 [facility] 2.5 mg 01/15/2020 12:00:00 AM EDT tablet 30 TAKE ONE TABLET BY MOUTH EVERY DAY TAKE ONE TABLET BY MOUTH EVERY DAY SOLD: 01/25/2020 [facility] 1,250 mcg (50,000 unit) 01/15/2020 12:00:00 AM EDT capsule 4 TAKE 1 CAPSULE BY MOUTH ONCE WEEKLY ON TUESDAY TAKE 1 CAPSULE BY MOUTH ONCE WEEKLY ON TUESDAY SOLD: 04/14/2020 [facility] carvedilol 25 MG Oral Tablet CARVEDILOL 01/15/2020 12:00:00 AM EDT tab let 60 TAKE ONE TABLET BY MOUTH TWICE A DAY TAKE ONE TABLET BY MOUTH TWICE A DAY SOLD: 01/25/2020 [facility] 2 mg 01/15/2020 12:00:00 AM EDT tablet 60 TAKE 1 TABLET BY MOUTH AT 8:00PM AND 1 TABLET AT MIDNIGHT TAKE 1 TABLET BY MOUTH AT 8:00PM AND 1 T ABLET AT MIDNIGHT SOLD: 01/25/2020 [facility] 10 mg 01/15/2020 12:00:00 AM EDT tablet 30 TAKE ONE TABLET BY MOUTH EVERY DAY TAKE ONE TABLET BY MOUTH EVERY DAY SOLD: 01/25/2020 [facility] 1,250 mcg (50,000 unit) 01/15/2020 12:00:00 AM EDT capsule 4 TAKE 1 CAPSULE BY MOUTH ONCE WEEKLY ON TUESDAY TAKE 1 CAPSULE BY MOUTH ONCE WEEKLY ON TUESDAY SOLD: 01/25/2020 [facility] 5 mg 01/15/2020 12:00:00 AM EDT tablet 60 TAKE ONE TABLET BY MOUTH TWICE A DAY TAKE ONE TABLET BY MOUTH TWICE A DAY SOLD: 07/17/2020 [facility] 1,250 mcg (50,000 unit) 01/15/2020 12:00:00 AM EDT capsule 4 TAKE 1 CAPSULE BY MOUTH ONCE WEEKLY ON TUESDAY TAKE 1 CAPSULE BY MOUTH ONCE WEEKLY ON TUESDAY SOLD: 03/09/2020 [facility] 60 mg 01/15/2020 12:00:00 AM EDT capsule,biphase delayed releas 30 TAKE ONE CAPSULE BY MOUTH EVERY DAY TAKE ONE CAPSULE BY MOUTH EVERY DAY SOLD: 06/13/2020 [facility] 8 mg 01/15/2020 12:00:00 AM EDT tablet 9 TAKE ONE TABLET BY MOUTH EVERY 12 HOURS NEEDED FOR NAUSEA TAKE ONE TABLET BY MOUTH EVERY 12 HOURS NEEDED FOR NAUSEA SOLD: 01/25/2020 [facility] 1,250 mcg (50,000 unit) 01/15/2020 12:00:00 AM EDT capsule 4 TAKE 1 CAPSULE BY MOUTH ONCE WEEKLY ON TUESDAY TAKE 1 CAPSULE BY MOUTH ONCE WEEKLY ON TUESDAY SOLD: 10/11/2020 [facility] 1,250 mcg (50,000 unit) 01/15/2020 12:00:00 AM EDT capsule 4 TAKE 1 CAPSULE BY MOUTH ONCE WEEKLY ON TUESDAY TAKE 1 CAPSULE BY MOUTH ONCE WEEKLY ON TUESDAY SOLD: 08/16/2020 [facility] 5 mg 01/15/2020 12:00:00 AM EDT tablet 60 TAKE ONE TABLET BY MOUTH TWICE A DAY TAKE ONE TABLET BY MOUTH TWICE A DAY SOLD: 01/25/2020 [facility] 60 mg 01/15/2020 12:00:00 AM EDT capsule,biphase delayed releas 30 TAKE ONE CAPSULE BY MOUTH EVERY DAY TAKE ONE CAPSULE BY MOUTH EVERY DAY SOLD: 07/17/2020 [facility] 8 mg 01/15/2020 12:00:00 AM EDT tablet 9 TAKE ONE TABLET BY MOUTH EVERY 12 HOURS NEEDED FOR NAUSEA TAKE ONE TABLET BY MOUTH EVERY 12 HOURS NEEDED FOR NAUSEA SOLD: 07/17/2020 [facility] 60 mg 01/15/2020 12:00:00 AM EDT capsule,biphase delayed releas 30 TAKE ONE CAPSULE BY MOUTH EVERY DAY TAKE ONE CAPSULE BY MOUTH EVERY DAY SOLD: 04/14/2020 [facility] 8 mg 01/15/2020 12:00:00 AM EDT tablet 9 TAKE ONE TABLET BY MOUTH EVERY 12 HOURS NEEDED FOR NAUSEA TAKE ONE TABLET BY MOUTH EVERY 12 HOURS NEEDED FOR NAUSEA SOLD: 10/11/2020 [facility] 5 mg 01/15/2020 12:00:00 AM EDT tablet 60 TAKE ONE TABLET BY MOUTH TWICE A DAY TAKE ONE TABLET BY MOUTH TWICE A DAY SOLD: 10/11/2020 [facility] 2 mg 01/15/2020 12:00:00 AM EDT tablet 60 TAKE 1 TABLET BY MOUTH AT 8:00PM AND 1 TABLET AT MIDNIGHT TAKE 1 TABLET BY MOUTH AT 8:00PM AND 1 T ABLET AT MIDNIGHT SOLD: 04/14/2020 [facility] quetiapine 300 MG Oral Tablet QUETIAPINE FUMARATE 01/15/2020 12: 00:00 AM EDT tablet 60 TAKE TWO TABLETS BY MOUTH AT BED TIME TAKE TWO TABLETS BY MOUTH AT BEDTIME SOLD: 01/25/2020 [facility] 60 mg 01/15/2020 12:00:00 AM EDT capsule,biphase delayed releas 30 TAKE ONE CAPSULE BY MOUTH EVERY DAY TAKE ONE CAPSULE BY MOUTH EVERY DAY SOLD: 01/25/2020 [facility] 2 mg 01/15/2020 12:00:00 AM EDT tablet 60 TAKE 1 TABLET BY MOUTH AT 8:00PM AND 1 TABLET AT MIDNIGHT TAKE 1 TABLET BY MOUTH AT 8:00PM AND 1 T ABLET AT MIDNIGHT SOLD: 03/09/2020 [facility] 5 mg 01/15/2020 12:00:00 AM EDT tablet 60 TAKE ONE TABLET BY MOUTH TWICE A DAY TAKE ONE TABLET BY MOUTH TWICE A DAY SOLD: 09/15/2020 [facility] 1,250 mcg (50,000 unit) 01/15/2020 12:00:00 AM EDT capsule 4 TAKE 1 CAPSULE BY MOUTH ONCE WEEKLY ON TUESDAY TAKE 1 CAPSULE BY MOUTH ONCE WEEKLY ON TUESDAY SOLD: 07/17/2020 [facility] 300 mg 01/15/2020 12:00:00 AM EDT tablet 60 TAKE TWO TABLETS BY MOUTH AT BEDTIME TAKE TWO TABLETS BY MOUTH AT BEDTIME SOLD: 03/21/2020 [facility] 300 mg 01/15/2020 12:00:00 AM EDT tablet 60 TAKE TWO TABLETS BY MOUTH AT BEDTIME TAKE TWO TABLETS BY MOUTH AT BEDTIME SOLD: 04/14/2020 [facility] 60 mg 01/15/2020 12:00:00 AM EDT capsule,biphase delayed releas 30 TAKE ONE CAPSULE BY MOUTH EVERY DAY TAKE ONE CAPSULE BY MOUTH EVERY DAY SOLD: 09/15/2020 [facility] 8 mg 01/15/2020 12:00:00 AM EDT tablet 9 TAKE ONE TABLET BY MOUTH EVERY 12 HOURS NEEDED FOR NAUSEA TAKE ONE TABLET BY MOUTH EVERY 12 HOURS NEEDED FOR NAUSEA SOLD: 08/16/2020 [facility] 5 mg 01/15/2020 12:00:00 AM EDT tablet 60 TAKE ONE TABLET BY MOUTH TWICE A DAY TAKE ONE TABLET BY MOUTH TWICE A DAY SOLD: 08/16/2020 [facility] 3 mg 01/02/2020 12:00:00 AM EDT tablet 30 TAKE ONE TABLET BY MOUTH AT BEDTIME MAXIMUM DAILY DOSE = 1 TAKE ONE TABLET BY MOUTH AT BEDTIME MAXI MUM DAILY DOSE = 1 SOLD: 01/10/2020 [facility] 300 mg 12/30/2019 12:00:00 AM EDT capsule 60 TAKE ONE CAPSULE BY MOUTH TWICE A DAY MAXIMUM DAILY DOSE = 2 TAKE ONE CAPSULE BY MOUTH TWICE A DAY MA XIMUM DAILY DOSE = 2 SOLD: 12/31/2019 [facility] 20 mg 12/28/2019 12:00:00 AM EDT capsule,ER biphasic 50- 50 30 TAKE ONE CAPSULE BY MOUTH EVERY MORNING MAXIMUM DAILY DOSE = 1 CAPSULE TAKE ONE CAPSULE BY MOUTH EVERY MORNING MAXIMUM DAILY DOSE = 1 CAPSULE SOLD: 12/31/2019 [facility] 10-325 mg 12/27/2019 12:00:00 AM EDT tablet 180 TAKE ONE TABLET BY MOUTH EVERY 4 HOURS MAXIMUM DAILY DOSE = 6 TAKE ONE TABLET BY MOUTH EVERY 4 HOURS MAXIMUM DAILY DOSE = 6 SOLD: 12/27/2019 [facility] 2 mg/0.85 mL 12/14/2019 12:00:00 AM EST auto-injector 3 INJECT CONTENTS OF PEN ONCE A WEEK INJECT CONTENTS OF PEN ONCE A WEEK SOLD: 12/27/2019 [facility] 20 mg 12/13/2019 12:00:00 AM EST tablet 30 TAKE ONE TABLET BY MOUTH EVERY DAY TAKE ONE TABLET BY MOUTH EVERY DAY SOLD: 12/27/2019 [facility] 750 mg 12/13/2019 12:00:00 AM EST tablet 3 TAKE 1 TABLET BY MOUTH EVERY 48 HOURS FOR 6 DAYS TAKE 1 TABLET BY MOUTH EVERY 48 HOURS FOR 6 DAYS SOLD: 12/27/2019 [facility] 20 mg 12/13/2019 12:00:00 AM EST tablet 30 TAKE ONE TABLET BY MOUTH EVERY DAY TAKE ONE TABLET BY MOUTH EVERY DAY SOLD: 02/22/2020 [facility] Levofloxacin 750 MG Oral Tablet Levofloxacin 750 MG 12/13/2019 1 2:00:00 AM EST active 1 tablet eCW1 ([facility]) 0.05 % 12/12/2019 12:00:00 AM EST dropperette 60 INSTILL 1 DROP TWICE A DAY IN BOTH EYES INSTILL 1 DROP TWICE A DAY IN BOTH EYES SOLD: 12/27/2019 [facility] FLASH GLUCOSE SENSOR 12/11/2019 12:00:00 AM EST kit 2 DIRECTED DIRECTED SOLD: 03/09/2020 [facility] FLASH GLUCOSE SENSOR 12/11/2019 12:00:00 AM EST kit 2 DIRECTED DIRECTED SOLD: 01/10/2020 [facility] FLASH GLUCOSE SENSOR 12/11/2019 12:00:00 AM EST kit 2 DIRECTED DIRECTED SOLD: 02/07/2020 [facility] FLASH GLUCOSE SENSOR 12/11/2019 12:00:00 AM EST kit 2 DIRECTED DIRECTED SOLD: 05/11/2020 [facility] FLASH GLUCOSE SENSOR 12/11/2019 12:00:00 AM EST kit 2 DIRECTED DIRECTED SOLD: 04/05/2020 [facility] FLASH GLUCOSE SENSOR 12/11/2019 12:00:00 AM EST kit 2 DIRECTED DIRECTED SOLD: 12/11/2019 [facility] Cyclosporine 0.5 MG/ML Ophthalmic Suspen pillo [Restasis] Restasis 0.05% Ophthalmic Emulsion Restasis 0.05% Ophthalmic Emulsion 12/11/2019 12:00:00 AM EST active cyclospo rine 0.5 MG/ML Ophthalmic Suspension [Restasis] DAVID (Ben Hyde MD [facility]) FreeStyle Dwight 14 Day Sensor - FreeStyle Dwight 14 Day Senso r 12/10/2019 12:00:00 AM EST active FreeStyl e Dwight 14 Day Sensor - eCW1 ([facility]) FreeStyle Dwight 14 Day Sensor - FreeStyle Dwight 14 Day Senso r 12/10/2019 12:00:00 AM EST active FreeStyl e Dwight 14 Day Sensor - eCW1 ([facility]) FreeStyle Dwight 14 Day Sensor - FreeStyle Dwight 14 Day Senso r 12/10/2019 12:00:00 AM EST active FreeStyl e Dwight 14 Day Sensor - eCW1 ([facility]) FreeStyle Dwight 14 Day Sensor - FreeStyle Dwight 14 Day Senso r 12/10/2019 12:00:00 AM EST active FreeStyl e Dwight 14 Day Sensor - eCW1 ([facility]) FreeStyle Dwight 14 Day Sensor - FreeStyle Dwight 14 Day Senso r 12/10/2019 12:00:00 AM EST active as direc tracy eCW1 ([facility]) FreeStyle Dwight 14 Day Sensor - FreeStyle Dwight 14 Day Senso r 12/10/2019 12:00:00 AM EST active FreeStyl e Dwight 14 Day Sensor - eCW1 ([facility]) FreeStyle Dwight 14 Day Sensor - FreeStyle Dwight 14 Day Senso r 12/10/2019 12:00:00 AM EST active FreeStyl e Dwight 14 Day Sensor - eCW1 ([facility]) FreeStyle Dwight 14 Day Sensor - FreeStyle Dwight 14 Day Senso r 12/10/2019 12:00:00 AM EST active FreeStyl e Dwight 14 Day Sensor - eCW1 ([facility]) FreeStyle Dwight 14 Day Sensor - FreeStyle Dwight 14 Day Senso r 12/10/2019 12:00:00 AM EST active FreeStyl e Dwight 14 Day Sensor - eCW1 ([facility]) FreeStyle Dwight 14 Day Sensor - FreeStyle Dwight 14 Day Senso r 12/10/2019 12:00:00 AM EST active FreeStyl e Dwight 14 Day Sensor - eCW1 ([facility]) FreeStyle Dwight 14 Day Sensor - FreeStyle Dwight 14 Day Senso r 12/10/2019 12:00:00 AM EST active FreeStyl e Dwight 14 Day Sensor - eCW1 ([facility]) FreeStyle Dwight 14 Day Sensor - FreeStyle Dwight 14 Day Senso r 12/10/2019 12:00:00 AM EST active FreeStyl e Dwight 14 Day Sensor - eCW1 ([facility]) FreeStyle Dwight 14 Day Sensor - FreeStyle Dwight 14 Day Senso r 12/10/2019 12:00:00 AM EST active FreeStyl e Dwight 14 Day Sensor - eCW1 ([facility]) FreeStyle Dwight 14 Day Sensor - FreeStyle Dwight 14 Day Senso r 12/10/2019 12:00:00 AM EST active FreeStyl e Dwight 14 Day Sensor - eCW1 ([facility]) FreeStyle Dwight 14 Day Sensor - FreeStyle Dwight 14 Day Senso r 12/10/2019 12:00:00 AM EST active FreeStyl e Dwight 14 Day Sensor - eCW1 ([facility]) FreeStyle Dwight 14 Day Sensor - FreeStyle Dwight 14 Day Senso r 12/10/2019 12:00:00 AM EST active FreeStyl e Dwight 14 Day Sensor - eCW1 ([facility]) FreeStyle Dwight 14 Day Sensor - FreeStyle Dwight 14 Day Senso r 12/10/2019 12:00:00 AM EST active FreeStyl e Dwight 14 Day Sensor - eCW1 ([facility]) FreeStyle Dwight 14 Day Sensor - FreeStyle Dwight 14 Day Senso r 12/10/2019 12:00:00 AM EST active FreeStyl e Dwight 14 Day Sensor - eCW1 ([facility]) FreeStyle Dwight 14 Day Sensor - FreeStyle Dwight 14 Day Senso r 12/10/2019 12:00:00 AM EST active FreeStyl e Dwight 14 Day Sensor - eCW1 ([facility]) FreeStyle Dwight 14 Day Sensor - FreeStyle Dwight 14 Day Senso r 12/10/2019 12:00:00 AM EST active FreeStyl e Dwight 14 Day Sensor - eCW1 ([facility]) FreeStyle Dwight 14 Day Sensor - FreeStyle Dwight 14 Day Senso r 12/10/2019 12:00:00 AM EST active FreeStyl e Dwight 14 Day Sensor - eCW1 ([facility]) FreeStyle Dwight 14 Day Sensor - FreeStyle Dwight 14 Day Senso r 12/10/2019 12:00:00 AM EST active as direc tracy eCW1 ([facility]) FreeStyle Dwight 14 Day Sensor - FreeStyle Dwight 14 Day Senso r 12/10/2019 12:00:00 AM EST active as direc tracy eCW1 ([facility]) FreeStyle Dwight 14 Day Sensor - FreeStyle Dwight 14 Day Senso r 12/10/2019 12:00:00 AM EST active FreeStyl e Dwight 14 Day Sensor - eCW1 ([facility]) FreeStyle Dwight 14 Day Sensor - FreeStyle Dwight 14 Day Senso r 12/10/2019 12:00:00 AM EST active as direc tracy eCW1 ([facility]) FreeStyle Dwight 14 Day Sensor - FreeStyle Dwight 14 Day Senso r 12/10/2019 12:00:00 AM EST active FreeStyl e Dwight 14 Day Sensor - eCW1 ([facility]) FreeStyle Dwight 14 Day Sensor - FreeStyle Dwight 14 Day Senso r 12/10/2019 12:00:00 AM EST active FreeStyl e Dwight 14 Day Sensor - eCW1 ([facility]) FreeStyle Dwight 14 Day Sensor - FreeStyle Dwight 14 Day Senso r 12/10/2019 12:00:00 AM EST active FreeStyl e Dwight 14 Day Sensor - eCW1 ([facility]) FreeStyle Dwight 14 Day Sensor - FreeStyle Dwight 14 Day Senso r - 12/10/2019 12:00:00 AM EST active FreeStyl e Dwight 14 Day Sensor - eCW1 ([facility]) FreeStyle Dwight 14 Day Sensor - FreeStyle Dwight 14 Day Senso r - 12/10/2019 12:00:00 AM EST active FreeStyl e Dwight 14 Day Sensor - eCW1 ([facility]) FreeStyle Dwight 14 Day Sensor - FreeStyle Dwight 14 Day Senso r 12/10/2019 12:00:00 AM EST active FreeStyl e Dwight 14 Day Sensor - eCW1 ([facility]) FreeStyle Dwight 14 Day Sensor - FreeStyle Dwight 14 Day Senso r 12/10/2019 12:00:00 AM EST active FreeStyl e Dwight 14 Day Sensor - eCW1 ([facility]) FreeStyle Dwight 14 Day Sensor - FreeStyle Dwight 14 Day Senso r 12/10/2019 12:00:00 AM EST active FreeStyl e Dwight 14 Day Sensor - eCW1 ([facility]) FreeStyle Dwight 14 Day Sensor - FreeStyle Dwight 14 Day Senso r 12/10/2019 12:00:00 AM EST active FreeStyl e Dwight 14 Day Sensor - eCW1 ([facility]) 3 mg 12/04/2019 12:00:00 AM EST tablet 30 TAKE ONE TABLET BY MOUTH AT BEDTIME MAXIMUM DAILY DOSE = 1 TABLET TAKE ONE TABLET BY MOUTH AT BEDTIME MAXIMUM DAILY DOSE = 1 TABLET SOLD: 12/04/2019 [facility] 10 mg 12/01/2019 12:00:00 AM EST tablet 30 TAKE ONE TABLET BY MOUTH EVERY DAY FOR 3 DAYS NEEDED FOR LEG EDEMA AND MORE THAN A 4LB WEIGHT GAIN TAKE ONE TABLET BY MOUTH EVERY DAY FOR 3 DAYS NEEDED FOR LEG EDEMA AND MORE THAN A 4LB WEIGHT GAIN SOLD: 12/04/2019 [facility] 300 mg 12/01/2019 12:00:00 AM EST capsule 60 TAKE ONE CAPSULE BY MOUTH TWICE A DAY MAXIMUM DAILY DOSE = 2 CAPSULES TAKE ONE CAPSULE BY MOUTH TWICE A DAY MAXIMUM DAILY DOSE = 2 CAPSULES SOLD: 12/05/2019 [facility] 60 mg 12/01/2019 12:00:00 AM EST capsule,biphase delayed releas 30 TAKE ONE CAPSULE BY MOUTH EVERY DAY TAKE ONE CAPSULE BY MOUTH EVERY DAY SOLD: 12/04/2019 [facility] 10-325 mg 11/30/2019 12:00:00 AM EST tablet 180 TAKE ONE TABLET BY MOUTH EVERY 4 HOURS MAXIMUM DAILY DOSE = 6 TABLETS TAKE ONE TABLET BY MOUTH EVERY 4 HOURS MAXIMUM DAILY DOSE = 6 TABLETS SOLD: 11/30/2019 [facility] 20 mg 11/30/2019 12:00:00 AM EST capsule,ER biphasic 50- 50 30 TAKE ONE CAPSULE BY MOUTH EVERY MORNING MAXIMUM DAILY DOSE = ONE CAPSULE TAKE ONE CAPSULE BY MOUTH EVERY MORNING MAXIMUM DAILY DOSE = ONE CAPSULE SOLD: 12/04/2019 [facility] 64 mg 11/29/2019 12:00:00 AM EST tablet,delayed release (DR/EC) 90 TAKE ONE TABLET BY MOUTH EVERY DAY TAKE ONE TABLET BY MOUTH EVERY DAY SOLD: 11/30/2019 [facility] 300 mg 11/27/2019 12:00:00 AM EST tablet 30 TAKE ONE TABLET BY MOUTH EVERY DAY TAKE ONE TABLET BY MOUTH EVERY DAY SOLD: 02/22/2020 [facility] 300 mg 11/27/2019 12:00:00 AM EST tablet 30 TAKE ONE TABLET BY MOUTH EVERY DAY TAKE ONE TABLET BY MOUTH EVERY DAY SOLD: 06/13/2020 [facility] 300 mg 11/27/2019 12:00:00 AM EST tablet 30 TAKE ONE TABLET BY MOUTH EVERY DAY TAKE ONE TABLET BY MOUTH EVERY DAY SOLD: 11/28/2019 [facility] 300 mg 11/27/2019 12:00:00 AM EST tablet 30 TAKE ONE TABLET BY MOUTH EVERY DAY TAKE ONE TABLET BY MOUTH EVERY DAY SOLD: 07/17/2020 [facility] 300 mg 11/27/2019 12:00:00 AM EST tablet 30 TAKE ONE TABLET BY MOUTH EVERY DAY TAKE ONE TABLET BY MOUTH EVERY DAY SOLD: 04/14/2020 [facility] 300 mg 11/27/2019 12:00:00 AM EST tablet 30 TAKE ONE TABLET BY MOUTH EVERY DAY TAKE ONE TABLET BY MOUTH EVERY DAY SOLD: 08/16/2020 [facility] Amlodipine 2.5 MG Oral Tablet AmLODIPine Besylate 2.5 MG AmLODIPine Besylate 2.5 MG 11/12/2019 12:00:00 AM EST active 1 tablet eCW1 ([facility]) Doxycycline Monohydrate 100 MG Oral Capsule Doxycycline [place] hydrate 100 MG 11/12/2019 12:00:00 AM EST active 1 capsule eCW1 ([facility]) Amlodipine 2.5 MG Oral Tablet AmLODIPine Besylate 2.5 MG AmLODIPine Besylate 2.5 MG 11/12/2019 12:00:00 AM EST 1.0 {tablet} activ e AmLODIPine Besylate 2.5 MG eCW1 ([facility]) Amlodipine 2.5 MG Oral Tablet AmLODIPine Besylate 2.5 MG AmLODIPine Besylate 2.5 MG 11/12/2019 12:00:00 AM EST 1.0 {tablet} suspe nded AmLODIPine Besylate 2.5 MG eCW1 ([facility]) 2.5 mg 11/12/2019 12:00:00 AM EST tablet 30 TAKE ONE TABLET BY MOUTH EVERY DAY TAKE ONE TABLET BY MOUTH EVERY DAY SOLD: 11/13/2019 [facility] Amlodipine 2.5 MG Oral Tablet AmLODIPine Besylate 2.5 MG AmLODIPine Besylate 2.5 MG 11/12/2019 12:00:00 AM EST active 1 tablet eCW1 ([facility]) Amlodipine 2.5 MG Oral Tablet AmLODIPine Besylate 2.5 MG AmLODIPine Besylate 2.5 MG 11/12/2019 12:00:00 AM EST active 1 tablet eCW1 ([facility]) Amlodipine 2.5 MG Oral Tablet AmLODIPine Besylate 2.5 MG AmLODIPine Besylate 2.5 MG 11/12/2019 12:00:00 AM EST active 1 tablet eCW1 ([facility]) Amlodipine 2.5 MG Oral Tablet AmLODIPine Besylate 2.5 MG AmLODIPine Besylate 2.5 MG 11/12/2019 12:00:00 AM EST 1.0 {tablet} suspe nded AmLODIPine Besylate 2.5 MG eCW1 ([facility]) Amlodipine 2.5 MG Oral Tablet AmLODIPine Besylate 2.5 MG AmLODIPine Besylate 2.5 MG 11/12/2019 12:00:00 AM EST 1.0 {tablet} activ e AmLODIPine Besylate 2.5 MG eCW1 ([facility]) Amlodipine 2.5 MG Oral Tablet AmLODIPine Besylate 2.5 MG AmLODIPine Besylate 2.5 MG 11/12/2019 12:00:00 AM EST 1.0 {tablet} activ e AmLODIPine Besylate 2.5 MG eCW1 ([facility]) Amlodipine 2.5 MG Oral Tablet AmLODIPine Besylate 2.5 MG AmLODIPine Besylate 2.5 MG 11/12/2019 12:00:00 AM EST 1.0 {tablet} activ e AmLODIPine Besylate 2.5 MG eCW1 ([facility]) Amlodipine 2.5 MG Oral Tablet AmLODIPine Besylate 2.5 MG AmLODIPine Besylate 2.5 MG 11/12/2019 12:00:00 AM EST 1.0 {tablet} activ e AmLODIPine Besylate 2.5 MG eCW1 ([facility]) Amlodipine 2.5 MG Oral Tablet AmLODIPine Besylate 2.5 MG AmLODIPine Besylate 2.5 MG 11/12/2019 12:00:00 AM EST 1.0 {tablet} activ e AmLODIPine Besylate 2.5 MG eCW1 ([facility]) Amlodipine 2.5 MG Oral Tablet AmLODIPine Besylate 2.5 MG AmLODIPine Besylate 2.5 MG 11/12/2019 12:00:00 AM EST 1.0 {tablet} suspe nded AmLODIPine Besylate 2.5 MG eCW1 ([facility]) Amlodipine 2.5 MG Oral Tablet AmLODIPine Besylate 2.5 MG AmLODIPine Besylate 2.5 MG 11/12/2019 12:00:00 AM EST 1.0 {tablet} activ e AmLODIPine Besylate 2.5 MG eCW1 ([facility]) 100 mg 11/12/2019 12:00:00 AM EST capsule 20 TAKE ONE CAPSULE BY MOUTH TWICE A DAY FOR 10 DAYS TAKE ONE CAPSULE BY MOUTH TWICE A DAY FOR 10 DAYS SOLD : 11/13/2019 [facility] Amlodipine 2.5 MG Oral Tablet AmLODIPine Besylate 2.5 MG AmLODIPine Besylate 2.5 MG 11/12/2019 12:00:00 AM EST 1.0 {tablet} suspe nded AmLODIPine Besylate 2.5 MG eCW1 ([facility]) Amlodipine 2.5 MG Oral Tablet AmLODIPine Besylate 2.5 MG AmLODIPine Besylate 2.5 MG 11/12/2019 12:00:00 AM EST 1.0 {tablet} activ e AmLODIPine Besylate 2.5 MG eCW1 ([facility]) Doxycycline Monohydrate 100 MG Oral Capsule Doxycycline Kimball hydrate 100 MG 11/12/2019 12:00:00 AM EST active 1 capsule eCW1 ([facility]) Amlodipine 2.5 MG Oral Tablet AmLODIPine Besylate 2.5 MG AmLODIPine Besylate 2.5 MG 11/12/2019 12:00:00 AM EST 1.0 {tablet} activ e AmLODIPine Besylate 2.5 MG eCW1 ([facility]) Doxycycline Monohydrate 100 MG Oral Capsule Doxycycline Kimball hydrate 100 MG 11/12/2019 12:00:00 AM EST active 1 capsule eCW1 ([facility]) Amlodipine 2.5 MG Oral Tablet AmLODIPine Besylate 2.5 MG AmLODIPine Besylate 2.5 MG 11/12/2019 12:00:00 AM EST active 1 tablet eCW1 ([facility]) Amlodipine 2.5 MG Oral Tablet AmLODIPine Besylate 2.5 MG AmLODIPine Besylate 2.5 MG 11/12/2019 12:00:00 AM EST 1.0 {tablet} activ e AmLODIPine Besylate 2.5 MG eCW1 ([facility]) Amlodipine 2.5 MG Oral Tablet AmLODIPine Besylate 2.5 MG AmLODIPine Besylate 2.5 MG 11/12/2019 12:00:00 AM EST 1.0 {tablet} suspe nded AmLODIPine Besylate 2.5 MG eCW1 ([facility]) Amlodipine 2.5 MG Oral Tablet AmLODIPine Besylate 2.5 MG AmLODIPine Besylate 2.5 MG 11/12/2019 12:00:00 AM EST 1.0 {tablet} suspe nded AmLODIPine Besylate 2.5 MG eCW1 ([facility]) Amlodipine 2.5 MG Oral Tablet AmLODIPine Besylate 2.5 MG AmLODIPine Besylate 2.5 MG 11/12/2019 12:00:00 AM EST active 1 tablet eCW1 ([facility]) Amlodipine 2.5 MG Oral Tablet AmLODIPine Besylate 2.5 MG AmLODIPine Besylate 2.5 MG 11/12/2019 12:00:00 AM EST 1.0 {tablet} activ e AmLODIPine Besylate 2.5 MG eCW1 ([facility]) Amlodipine 2.5 MG Oral Tablet AmLODIPine Besylate 2.5 MG AmLODIPine Besylate 2.5 MG 11/12/2019 12:00:00 AM EST 1.0 {tablet} activ e AmLODIPine Besylate 2.5 MG eCW1 ([facility]) Amlodipine 2.5 MG Oral Tablet AmLODIPine Besylate 2.5 MG AmLODIPine Besylate 2.5 MG 11/12/2019 12:00:00 AM EST 1.0 {tablet} activ e AmLODIPine Besylate 2.5 MG eCW1 ([facility]) 5 mg 11/07/2019 12:00:00 AM EST tablet 60 TAKE ONE TABLET BY MOUTH TWICE A DAY TAKE ONE TABLET BY MOUTH TWICE A DAY SOLD: 11/13/2019 [facility] 5 mg 11/07/2019 12:00:00 AM EST tablet 60 TAKE ONE TABLET BY MOUTH TWICE A DAY TAKE ONE TABLET BY MOUTH TWICE A DAY SOLD: 12/04/2019 [facility] 10-325 mg 11/02/2019 12:00:00 AM EST tablet 180 TAKE ONE TABLET BY MOUTH EVERY 4 HOURS MAXIMUM DAILY DOSE = SIX TABLETS TAKE ONE TABLET BY MOUTH EVERY 4 HOURS MAXIMUM DAILY DOSE = SIX TABLETS SOLD: 11/02/2019 [facility] 3 mg 11/01/2019 12:00:00 AM EST tablet 30 TAKE ONE TABLET BY MOUTH AT BEDTIME MAXIMUM DAILY DOSE = 1 TABLET TAKE ONE TABLET BY MOUTH AT BEDTIME MAXIMUM DAILY DOSE = 1 TABLET SOLD: 11/01/2019 [facility] 300 mg 11/01/2019 12:00:00 AM EST capsule 60 TAKE ONE CAPSULE BY MOUTH TWICE A DAY MAXIMUM DAILY DOSE = 2 TAKE ONE CAPSULE BY MOUTH TWICE A DAY MA XIMUM DAILY DOSE = 2 SOLD: 11/01/2019 [facility] 20 mg 10/31/2019 12:00:00 AM EST capsule,ER biphasic 50- 50 30 TAKE ONE CAPSULE BY MOUTH EVERY MORNING MAXIMUM DAILY DOSE = 1 CAPSULE TAKE ONE CAPSULE BY MOUTH EVERY MORNING MAXIMUM DAILY DOSE = 1 CAPSULE SOLD: 11/01/2019 [facility] Collagenase 10/16/2019 12:00:00 AM EST active MEDENT ([facility]) 10-325 mg 10/03/2019 12:00:00 AM EST tablet 180 TAKE ONE TABLET BY MOUTH EVERY 4 HOURS MAXIMUM DAILY DOSE = SIX TABLETS TAKE ONE TABLET BY MOUTH EVERY 4 HOURS MAXIMUM DAILY DOSE = SIX TABLETS SOLD: 10/03/2019 [facility] Trazodone Hydrochloride 100 MG Oral Tablet TRAZODONE HCL 10/02/2019 12:00:00 AM EST tablet 60 TAKE TWO TABLETS BY MOUTH AT BEDTIME TAKE TWO TABLETS BY MOUTH AT BEDTIME SOLD: 11/13/2019 [facility] Trazodone Hydrochloride 100 MG Oral Tablet TRAZODONE HCL 10/02/2019 12:00:00 AM EST tablet 60 TAKE TWO TABLETS BY MOUTH AT BEDTIME TAKE TWO TABLETS BY MOUTH AT BEDTIME SOLD: 04/24/2020 [facility] Trazodone Hydrochloride 100 MG Oral Tablet TRAZODONE HCL 10/02/2019 12:00:00 AM EST tablet 60 TAKE TWO TABLETS BY MOUTH AT BEDTIME TAKE TWO TABLETS BY MOUTH AT BEDTIME SOLD: 02/22/2020 [facility] Trazodone Hydrochloride 100 MG Oral Tablet TRAZODONE HCL 10/02/2019 12:00:00 AM EST tablet 60 TAKE TWO TABLETS BY MOUTH AT BEDTIME TAKE TWO TABLETS BY MOUTH AT BEDTIME SOLD: 03/30/2020 [facility] Trazodone Hydrochloride 100 MG Oral Tablet TRAZODONE HCL 10/02/2019 12:00:00 AM EST tablet 60 TAKE TWO TABLETS BY MOUTH AT BEDTIME TAKE TWO TABLETS BY MOUTH AT BEDTIME SOLD: 12/04/2019 [facility] 100 mg 10/02/2019 12:00:00 AM EST tablet 60 TAKE TWO TABLETS BY MOUTH AT BEDTIME TAKE TWO TABLETS BY MOUTH AT BEDTIME SOLD: 10/03/2019 [facility] 300 mg 10/01/2019 12:00:00 AM EST capsule 60 TAKE ONE CAPSULE BY MOUTH TWICE A DAY MAXIMUM DAILY DOSE = 2 CAPSULES TAKE ONE CAPSULE BY MOUTH TWICE A DAY MAXIMUM DAILY DOSE = 2 CAPSULES SOLD: 10/02/2019 [facility] 3 mg 10/01/2019 12:00:00 AM EST tablet 30 TAKE ONE TABLET BY MOUTH AT BEDTIME MAXIMUM DAILY DOSE = ONE TABLET TAKE ONE TABLET BY MOUTH AT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 ([facility]) Pain assessment documented as positive u sing a standardized tool and a follow-up plan is documented 11/08/2019 12:00:00 AM EST e CW1 ([facility]) Surgical / procedural history Cholecyst ectomy 1995, Hysterectomy 2000, Bilateral TMJ Arthroscopy 2003, lump removed from right breast 2003, skin lesion removed 2004, multiple abdominal laparoscopic, venous keerthi cath left chest 2x, PICC line left and right upper arm 3x, excision and drainage abscess wounds 4x, Appendectomy 2009, 5th metatarsal removal, right small, toe amputation. Angioplasty 04/03 Surgical / procedural history Cholecyst ectomy 1995, Hysterectomy 2000, Bilateral TMJ Arthroscopy 2003, lump removed from right breast 2003, skin lesion removed 2004, multiple abdominal laparoscopic, venous keerthi cath left chest 2x, PICC line left and right upper arm 3x, excision and drainage abscess wounds 4x, Appendectomy 2009, 5th metatarsal removal, right small, toe amputation. Angioplasty 04/0310/24/2019 12:00:00 AM EST DAVID (Ben Hyde MD [facility]) Intermediate Eye Exam Established Patient (Signi/Sep E frank. & Man.) Intermediate Eye Exam Established Patient (Signi/Sep Eval. & Man.) 10/24/2019 12:00:00 AM EST DAVID (Ben Hyde MD [facility]) Insertion of Punctum Plug (LEFT LOWER LID) Insertion o f Punctum Plug (LEFT LOWER LID) 10/24/2019 12:00:00 AM EST DAVID (Derick Hyde MD [facility]) No recent change in medical history No recent change in medi stefan history 10/24/2019 12:00:00 AM EST DAVID (Ben hummel MD [facility]) History of hypertension History of hypertension 10/24/2019 12:00:00 AM EST DAVID (Ben Hyde MD [facility]) History of asthma History of asthma 10/24/2019 12:00:00 AM EST DAVID (Ben Hyde MD [facility]) History of arthritis History of arthritis 10/24/2019 12:00:00 AM ES T DAVID (Ben Hyde MD [facility]) Currently wearing eyeglasses Currently wearing eyeglasses 12:00:00 AM EST DAVID (Ben Hyde MD [facility]) History of diabetes mellitus Type 1: Dx: 1996 A1C: 14 History of diabetes mellitus Type 1: Dx: 1996 A1C: 14 10/24/2019 12:00:00 AM EST DAVID (Ben Hyde MD [facility]) Reported medical history bipolar, OCD, Anxiety, Fibromyalgia, Bilateral TMJ, Psoriasis, Spinal Bifida, Common Immune Deficiency, Insomnia, Temporal Lobe Seizure, GERD, Cellulitis, CDIF, Renal Failure, ABD Adhesions, Endometriosis, Degenerative Disc Disease, Migraines, Insomnia, Bulging Disc Lumber, 2 blood clots in left upper arm Reported medical history bipolar, OCD, Anxiety, Fibromyalgia, Bilateral TMJ, Psoriasis, Spinal Bifida, Common Immune Deficiency, Insomnia, Temporal Lobe Seizure, GERD, Cellulitis, CDIF, Renal Failure, ABD Adhesions, Endometriosis, Degenerative Disc Disease, Migraines, Insomnia, Bulging Disc Lumber, 2 blood clots in left upper arm 10/24/2019 12:00:00 AM EST DAVID (Ben Hyde MD [facility]) CLSR LACRIMAL PUNCTUM PLUG EACH Insertion of Punctum Plug (E 2) 10/24/2019 12:00:00 AM EST DAVID (Ben Hyde MD [facility]) Intermediate Eye Exam Established Patient (25) Interme diate Eye Exam Established Patient (25) 10/24/2019 12:00:00 AM EST DAVID (Derick Hyde MD [facility]) RADIOLOGIC EXAMINATION KNEE 1/2 VIEWS 10/16/2019 12:00 :00 AM EST MEDENT ([facility]) Results ID Date Data Source [id number] 11/12/2020 12:00:00 PM EST [facility] Name Value Range Interpretation Code Description Data Lucy rce(s) Supporting Document(s) SARS coronavirus [address] [facility] [place] This lab was ordered by [facility] and reported by [facility]. ID Date Data Source [id number] 11/11/2020 09:09:39 AM EST [facility]: Joss DiazOB: 1970Provider: Roseanna Santos: 11/11/2020 Reason For VisitJoss Ford is here today for lumbar spine. Joss Ford is a new patient. mri lsp 10/03/20 + tsp 05/16/20 imported. Other DOI/DOO: 2017. Patient states their pain is a 6 out of 10. Chronic w/o injury with gradual worsening since onset. The patient has had a course of physical therapy for greater than 4 weeks. The patient has not had a course of NSAIDs for greater than 4 weeks. Patient states they are disabled. History of Present IllnessAntonette is a very frustrated 50-year-old woman accompanied by her on the speaker phone. She presents today stating that she has to do something about her back. She cannot go on like this. She is disabled by complications of poorly controlled diabetes. 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 She is only 50 years old. She suffers chronic back pain and neurological symptoms into the right leg itself. She says lately her diabetes has been under better control but her A1c is still over 9. Prior treatments for her back have included therapy medication and injections. She still sees the pain clinic in [facility]. Results/DataLumbar MRI date of exam September 2020 show some degenerative changes most notable at L3-4 where there is moderately severe stenosis otherwise generally unremarkable. AssessmentLumbar spinal stenosis with neurogenic claudication PlanShe is got lumbar stenosis at the L3-4 level which undoubtably is causing some of her problems but she has many significant medical comorbidities which make her extremely high risk for surgical complications. She has poorly controlled diabetes she has vascular and neurological complications in the right leg and has already lost the left. There are open skin lesions and ulcerations across her back where she has burned herself. Her A1c remains quite high. And there is also the issue of morbid obesity. At this point she would not be considered a suitable candidate for spine surgery but if she could tighten up these comorbidities. Lose a little weight get her A1c at least below 8 and have clean skin I think there is some potential that a microdecompression at the L3-4 level could potentially benefit her.Unfortunately we can have this discussion until she has better control over her comorbidities. She is going to return home into her primary care and work on that.At this time I feel that this patient is no longer in need of follow-up by us for this condition. We have therefore discussed that there is no follow-up appointment being made. Also we discussed that if the condition changes in the future then a follow-up appointment can certainly be made. Should any additional orthopedic concerns arise we can also make arrangements for evaluation of those at any time. Understanding of the above conditions were verbalized. Work / School NoteThe patient is not working at this time. Signatures Electronically signed by : Veronica Santos M.D.; Nov 11 2020 9:09AM EST (Author) Name Value Range Interpretation Code Description Data Lucy rce(s) Supporting Document(s) ID Date Data Source WOUND CULTURE AND GRAM ST 10/31/2020 12:00:00 AM EST eCW1 ([facility]) Name Value Range Interpretation Code Description Data Lucy rce(s) Supporting Document(s) WOUND CULTURE AND GRAM ST eCW1 ([facility]) ID Date Data Source [id number] 09/20/2020 08:05:00 AM EST [facility] Name Value Range Interpretation Code Description Data Lucy rce(s) Supporting Document(s) [facility] by [facility] and reported by [facility]. ID Date Data Source [id number] 08/23/2020 12:00:00 PM EST [facility] Name Value Range Interpretation Code Description Data Lucy rce(s) Supporting Document(s) SARS coronavirus 2 RNA [facility] This lab was ordered by [facility] and reported by [facility]. ID Date Data Source Basic Metabolic Profile (BMP) 07/23/2020 09:55:08 AM EDT eCW 1 ([facility]) Name Value Range Interpretation Code Description Data Lucy rce(s) Supporting Document(s) 351 GLUCOSE, FASTING eCW1 ([facility]) 52 BLOOD UREA NITROGEN eCW1 ([facility]) 1.50 CREATININE FOR GFR eCW1 ([facility]) 39.0 GLOMERULAR FILTRATION RATE eCW 1 ([facility]) 139 SODIUM LEVEL eCW1 ([facility]) 102 CHLORIDE LEVEL eCW1 ([facility]) 30 CARBON DIOXIDE LEVEL eCW1 ([facility]) 4.5 POTASSIUM SERUM eCW1 ([facility]) 8.5 CALCIUM LEVEL eCW1 ([facility]) ID Date Data Source [id number] 07/23/2020 09:55:08 AM EDT eCW1 ([facility]) Name Value Range Interpretation Code Description Data Lucy rce(s) Supporting Document(s) Hemoglobin A1c/Hemoglobin.total in Blood 12.3 HEMOGLOBIN A1c eCW1 ([facility]) ID Date Data Source CBC - Complete Blood Count 07/23/2020 09:55:08 AM EDT eCW1 ( [facility]) Name Value Range Interpretation Code Description Data Lucy rce(s) Supporting Document(s) 6.2 WHITE BLOOD COUNT eCW1 ([facility]) 37.7 HEMATOCRIT eCW1 ([facility]) 4.36 RED BLOOD COUNT eCW1 ([facility]) 12.6 HEMOGLOBIN eCW1 ([facility]) 33.4 MEAN CORPUSCULAR HGB CONC eCW1 ([facility]) 86.5 MEAN CORPUSCULAR VOLUME eCW1 ( [facility]) 28.9 MEAN CORPUSCULAR HEMOGLOBIN eC W1 ([facility]) 13.3 RED CELL DISTRIBUTION WIDTH eC W1 ([facility]) 250 PLATELET COUNT, AUTOMATED eCW1 ([facility]) ID Date Data Source [id number] 03/28/2020 10:56:00 AM EDT MEDENT ([facility]) Name Value Range Interpretation Code Description Data Lucy rce(s) Supporting Document(s) Glucose [Mass/volume] in Capillary blood by Glucometer 111 mg/dL 70- 105 MEDENT ([facility]) ID Date Data Source [id number] 03/28/2020 09:19:00 AM EDT MEDENT ([facility]) Name Value Range Interpretation Code Description Data Lucy rce(s) Supporting Document(s) Glucose [Mass/volume] in Capillary blood by Glucometer 139 mg/dL 70- 105 MEDENT ([facility]) ID Date Data Source [id number] 03/28/2020 08:19:00 AM EDT MEDENT ([facility]) Name Value Range Interpretation Code Description Data Lucy rce(s) Supporting Document(s) Glucose [Mass/volume] in Capillary blood by Glucometer 90 mg/dL 70- 105 MEDENT ([facility]) ID Date Data Source [id number] 03/25/2020 10:10:00 AM EDT [facility] Name Value Range Interpretation Code Description Data Lucy rce(s) Supporting Document(s) SARS CORONAVIRUS 2 RNA [facility] This lab was ordered by [facility] and reported by [facility]. ID Date Data Source [id number] 02/11/2020 12:44:00 PM EDT MEDENT ([facility]) Name Value Range Interpretation Code Description Data Lucy rce(s) Supporting Document(s) IgG [Mass/volume] in Serum or Plasma 949 mg/dL [id number] Normal (applies to non- numeric results) MEDENT ([facility] ) ID Date Data Source [id number] 11/12/2019 08:31:00 AM EST MEDENT ([facility]) Name Value Range Interpretation Code Description Data Lucy rce(s) Supporting Document(s) Creatinine For GFR 1.82 mg/dL 0.55-1.30 MEDENT ([facility]) Blood Urea Nitrogen 37 mg/dL 7-18 MEDENT ([facility]) Glucose, Fasting 726 mg/dL 70-100 Above upper panic limits MEDENT ([facility]) Sodium Level 128 meq/L 136-145 MEDENT ([facility]) Potassium Serum 5.4 meq/L 3.5-5.1 MEDENT ([facility]) Glomerular Filtration Rate 31.3 MED ENT ([facility]) <content>Units are mL/min/1.73 m2</content>
<content></content>
<content>Chronic Kidney Disease Staging per NKF:</content>
<content></content>
<content>Stage I & II GFR >=60 Normal to Mildly Decreased</content>
<content>Stage III GFR 30- 59 Moderately Decreased</content>
<content>Stage IV GFR 15-29 Severely Decreased</content>
<content>Stage V GFR <15 Very Little GFR Left</content>
<content>ESRD GFR <15 on BENEFITS TECHNICIAN</content>
<content></content> Chloride Level 91 meq/L 98-107 MEDENT ([facility]) Carbon Dioxide Level 26 meq/L 21-32 MEDENT ([facility]) Anion Gap 11 meq/L 8-16 [facility] ([facility]) Calcium Level 8.2 mg/dL 8.5-10.1 MEDENT ([facility]) ID Date Data Source [id number] 11/12/2019 08:31:00 AM EST MEDENT ([facility]) Name Value Range Interpretation Code Description Data Lucy rce(s) Supporting Document(s) Hemoglobin A1c 12.5 % MEDENT ([facility]) REFERENCE RANGES: 4.5-5.6% NORMAL 5.7-6.4% SUGGESTS IMPAIRED GLUCOSE META BOLISM >= 6.5% ABNORMAL Estimated Average Glucose 312 mg/dL 60-110 MEDENT ([facility]) ID Date Data Source CBC with Differential 10/01/2019 12:00:00 AM EST eCW1 ([facility]) Name Value Range Interpretation Code Description Data Lucy rce(s) Supporting Document(s) 6.6 4.0-10.0 WHITE BLOOD COUNT eCW1 ([facility]) 33.8 36.0-47.0 HEMATOCRIT eCW1 ([facility]) 11.6 12.0-15.5 HEMOGLOBIN eCW1 ([facility]) 4.06 4.00-5.40 RED BLOOD COUNT eCW1 ([facility]) 83.3 80.0-96.0 MEAN CORPUSCULAR VOLUME e CW1 ([facility]) 34.3 32.0-36.5 MEAN CORPUSCULAR HGB CONC eCW1 ([facility]) 14.1 11.5-14.5 RED CELL DISTRIBUTION WID TH eCW1 ([facility]) 28.6 27.0-33.0 MEAN CORPUSCULAR HEMOGLOB IN eCW1 ([facility]) 230 150-450 PLATELET COUNT, AUTOMATED eCW1 ([facility]) 32.5 24.0-44.0 LYMPH % eCW1 ([facility]) 7.4 0.0-5.0 MONO % eCW1 ([facility]) 2.1 0.0-3.0 EOS % eCW1 ([facility]) 56.3 36.0-66.0 NEUTROPHILS % eCW1 ([facility]) 3.7 1.5-8.5 NEUTROPHILS # eCW1 ([facility]) 2.2 1.5-5.0 LYMPH # eCW1 ([facility]) 0.5 0.0-0.8 MONO # eCW1 ([facility]) 0.6 0.0-1.0 BASO % eCW1 ([facility]) 0.1 0.0-0.5 EOS # eCW1 ([facility]) 0.0 0.0-0.2 BASO # eCW1 ([facility]) Procedure Social History Code Duration Value Status Description Data Source(s ) Smoking 11/07/2020 12:00:00 AM EST Former Smoker completed Former Smoker eCW1 ([facility]) Smoking 11/03/2020 12:00:00 AM EST Former Smoker completed Former Smoker eCW1 ([facility]) Smoking 11/03/2020 12:00:00 AM EST Former Smoker completed Former Smoker eCW1 ([facility]) Smoking 10/31/2020 12:00:00 AM EST Former Smoker completed Former Smoker eCW1 ([facility]) Smoking 10/24/2020 12:00:00 AM EST Former Smoker completed Former Smoker eCW1 ([facility]) Smoking 10/24/2020 12:00:00 AM EST Former Smoker completed Former Smoker eCW1 ([facility]) Smoking 10/24/2020 12:00:00 AM EST Former Smoker completed Former Smoker eCW1 ([facility]) Smoking 10/13/2020 12:39:14 PM EST Ex-smoker (finding) complet ed Ex-smoker (finding) DAVID (Ben Hyde MD [facility]) Smoking 09/26/2020 10:12:32 AM EST Ex-smoker (finding) complet ed Ex-smoker (finding) DAVID (Ben Hyde MD [facility]) Smoking 09/22/2020 12:00:00 AM EST Former Smoker completed Former Smoker eCW1 ([facility]) Smoking 09/22/2020 12:00:00 AM EST Former Smoker completed Former Smoker eCW1 ([facility]) Smoking 09/22/2020 12:00:00 AM EST Former Smoker completed Former Smoker eCW1 ([facility]) Smoking 09/22/2020 12:00:00 AM EST Former Smoker completed Former Smoker eCW1 ([facility]) Smoking 09/15/2020 12:00:00 AM EST Former Smoker completed Former Smoker eCW1 ([facility]) Smoking 09/15/2020 12:00:00 AM EST Former Smoker completed Former Smoker eCW1 ([facility]) Smoking 09/15/2020 12:00:00 AM EST Former Smoker completed Former Smoker eCW1 ([facility]) Smoking 09/15/2020 12:00:00 AM EST Former Smoker completed Former Smoker eCW1 ([facility]) Smoking 09/08/2020 12:00:00 AM EST Former Smoker completed Former Smoker eCW1 ([facility]) Smoking 09/08/2020 12:00:00 AM EST Former Smoker completed Former Smoker eCW1 ([facility]) Smoking 09/08/2020 12:00:00 AM EST Former Smoker completed Former Smoker eCW1 ([facility]) Smoking 08/29/2020 12:00:00 AM EST Current Smoker completed Curre nt Smoker eCW1 ([facility]) Smoking 08/29/2020 12:00:00 AM EST Current Smoker completed Curre nt Smoker eCW1 ([facility]) Smoking 08/29/2020 12:00:00 AM EST Current Smoker completed Curre nt Smoker eCW1 ([facility]) Smoking 08/26/2020 12:00:00 AM EST Current Smoker completed Curre nt Smoker eCW1 ([facility]) Smoking 08/18/2020 12:00:00 AM EST Current Smoker completed Curre nt Smoker eCW1 ([facility]) Smoking 08/18/2020 12:00:00 AM EST Current Smoker completed Curre nt Smoker eCW1 ([facility]) Smoking 07/22/2020 12:00:00 AM EDT Current Smoker completed Curre nt Smoker eCW1 ([facility]) Smoking 07/22/2020 12:00:00 AM EDT Current Smoker completed Curre nt Smoker eCW1 ([facility]) Smoking 07/22/2020 12:00:00 AM EDT Current Smoker completed Curre nt Smoker eCW1 ([facility]) Smoking 07/09/2020 11:00:40 AM EDT Ex-smoker (finding) complet ed Ex-smoker (finding) DAVID (Ben Hyde MD [facility]) Smoking 04/29/2020 12:00:00 AM EDT Current Smoker completed Curre nt Smoker eCW1 ([facility]) Smoking 04/29/2020 12:00:00 AM EDT Current Smoker completed Curre nt Smoker eCW1 ([facility]) Smoking 04/29/2020 12:00:00 AM EDT Current Smoker completed Curre nt Smoker eCW1 ([facility]) Smoking 04/29/2020 12:00:00 AM EDT Current Smoker completed Curre nt Smoker eCW1 ([facility]) Smoking 03/19/2020 12:00:00 AM EDT Current Smoker completed Curre nt Smoker eCW1 ([facility]) Smoking 03/19/2020 12:00:00 AM EDT Current Smoker completed Curre nt Smoker eCW1 ([facility]) Smoking 03/19/2020 12:00:00 AM EDT Current Smoker completed Curre nt Smoker eCW1 ([facility]) Smoking 10/24/2019 09:11:30 AM EST Ex-smoker (finding) complet ed Ex-smoker (finding) DAVID (Ben Hyde MD [facility]) Vital Signs ID Date Data Source UNK Name Value Range Interpretation Code Description Data Source(s) Diastolic blood pressure 78 mm[Hg] 78 mm[Hg] eCW1 ([facility]) Systolic blood pressure 122 mm[Hg] 122 mm[Hg] e CW1 ([facility]) Body temperature 96.4 [degF] 96.4 [degF] eCW1 ( [facility]) Respiratory rate 18 /min 18 /min eCW1 ([facility]) Heart rate 104 /min 104 /min eCW1 ([facility]) Body mass index (BMI) [Ratio] 36.3 kg/m2 36.3 k g/m2 eCW1 ([facility]) Body height 70 [in_i] 70 [in_i] eCW1 ([facility]) Body weight 114.76 kg 114.76 kg eCW1 ([facility]) Body weight 253 [lb_av] 253 [lb_av] eCW1 ([facility]) Diastolic blood pressure 81 mm[Hg] 81 mm[Hg] eCW1 ([facility]) Systolic blood pressure 148 mm[Hg] 148 mm[Hg] e CW1 ([facility]) Body temperature 96.5 [degF] 96.5 [degF] eCW1 ( [facility]) Respiratory rate 19 /min 19 /min eCW1 ([facility]) Heart rate 91 /min 91 /min eCW1 ([facility]) Body mass index (BMI) [Ratio] 37.73 kg/m2 37.73 kg/m2 eCW1 ([facility]) Body height 70 [in_i] 70 [in_i] eCW1 ([facility]) Body weight kg eCW1 ([facility]) Body weight 263 [lb_av] 263 [lb_av] eCW1 ([facility]) Diastolic blood pressure 77 mm[Hg] 77 mm[Hg] eCW1 ([facility]) Systolic blood pressure 128 mm[Hg] 128 mm[Hg] e CW1 ([facility]) Body temperature 96.5 [degF] 96.5 [degF] eCW1 ( [facility]) Respiratory rate 19 /min 19 /min eCW1 ([facility]) Heart rate 83 /min 83 /min eCW1 ([facility]) Body mass index (BMI) [Ratio] 37.73 kg/m2 37.73 kg/m2 eCW1 ([facility]) Body height 70 [in_i] 70 [in_i] eCW1 ([facility]) Body weight kg eCW1 ([facility]) Body weight 263 [lb_av] 263 [lb_av] eCW1 ([facility]) Diastolic blood pressure 70 mm[Hg] 70 mm[Hg] eCW1 ([facility]) Systolic blood pressure 130 mm[Hg] 130 mm[Hg] e CW1 ([facility]) Body temperature 96.1 [degF] 96.1 [degF] eCW1 ( [facility]) Respiratory rate 18 /min 18 /min eCW1 ([facility]) Heart rate 96 /min 96 /min eCW1 ([facility]) Body mass index (BMI) [Ratio] 37.73 kg/m2 37.73 kg/m2 eCW1 ([facility]) Body height 70 [in_i] 70 [in_i] eCW1 ([facility]) Body weight 263 [lb_av] 263 [lb_av] eCW1 ([facility]) Diastolic blood pressure 62 mm[Hg] 62 mm[Hg] eCW1 ([facility]) Systolic blood pressure 143 mm[Hg] 143 mm[Hg] e CW1 ([facility]) Body temperature 96.5 [degF] 96.5 [degF] eCW1 ( [facility]) Respiratory rate 17 /min 17 /min eCW1 ([facility]) Heart rate 94 /min 94 /min eCW1 ([facility]) Body mass index (BMI) [Ratio] 38.02 kg/m2 38.02 kg/m2 eCW1 ([facility]) Body height 70 [in_i] 70 [in_i] eCW1 ([facility]) Body weight kg eCW1 ([facility]) Body weight 265 [lb_av] 265 [lb_av] eCW1 ([facility]) Diastolic blood pressure mm[Hg] eCW1 ([facility]) Systolic blood pressure 198 mm[Hg] 198 mm[Hg] e CW1 ([facility]) Body temperature 97.7 [degF] 97.7 [degF] eCW1 ( [facility]) Respiratory rate 18 /min 18 /min eCW1 ([facility]) Heart rate 91 /min 91 /min eCW1 ([facility]) Body mass index (BMI) [Ratio] 38.02 kg/m2 38.02 kg/m2 eCW1 ([facility]) Body height 70 [in_i] 70 [in_i] eCW1 ([facility]) Body weight 265 [lb_av] 265 [lb_av] eCW1 ([facility]) Diastolic blood pressure 68 mm[Hg] 68 mm[Hg] eCW1 ([facility]) Systolic blood pressure 138 mm[Hg] 138 mm[Hg] e CW1 ([facility]) Respiratory rate 18 /min 18 /min eCW1 ([facility]) Heart rate 86 /min 86 /min eCW1 ([facility]) Body mass index (BMI) [Ratio] 38.31 kg/m2 38.31 kg/m2 eCW1 ([facility]) Body height 70 [in_i] 70 [in_i] eCW1 ([facility]) Body weight 121.11 kg 121.11 kg W1 ([facility]) Body weight 267 [lb_av] 267 [lb_av] eCW1 ([facility]) Diastolic blood pressure 77 mm[Hg] 77 mm[Hg] eCW1 ([facility]) Systolic blood pressure 163 mm[Hg] 163 mm[Hg] e CW1 ([facility]) Body temperature 97.8 [degF] 97.8 [degF] eCW1 ( [facility]) Respiratory rate 16 /min 16 /min eCW1 ([facility]) Heart rate 85 /min 85 /min eCW1 ([facility]) Body mass index (BMI) [Ratio] 38.16 kg/m2 38.16 kg/m2 eCW1 ([facility]) Body height 70 [in_i] 70 [in_i] eCW1 ([facility]) Body weight 266 [lb_av] 266 [lb_av] eCW1 ([facility]) Diastolic blood pressure 74 mm[Hg] 74 mm[Hg] eCW1 ([facility]) Systolic blood pressure 122 mm[Hg] 122 mm[Hg] e CW1 ([facility]) Body temperature 97.7 [degF] 97.7 [degF] eCW1 ( [facility]) Respiratory rate 18 /min 18 /min eCW1 ([facility]) Heart rate 93 /min 93 /min eCW1 ([facility]) Body mass index (BMI) [Ratio] 38.16 kg/m2 38.16 kg/m2 eCW1 ([facility]) Body height 70 [in_i] 70 [in_i] eCW1 ([facility]) Body weight 266 [lb_av] 266 [lb_av] eCW1 ([facility]) Diastolic blood pressure 78 mm[Hg] 78 mm[Hg] eCW1 ([facility]) Systolic blood pressure 156 mm[Hg] 156 mm[Hg] e CW1 ([facility]) Body temperature 94.5 [degF] 94.5 [degF] eCW1 ( [facility]) Respiratory rate 18 /min 18 /min eCW1 ([facility]) Heart rate 94 /min 94 /min eCW1 ([facility]) Body mass index (BMI) [Ratio] 36.58 kg/m2 36.58 kg/m2 eCW1 ([facility]) Body height 70 [in_i] 70 [in_i] eCW1 ([facility]) Body weight kg eCW1 ([facility]) Body weight 255 [lb_av] 255 [lb_av] eCW1 ([facility]) Diastolic blood pressure 78 mm[Hg] 78 mm[Hg] eCW1 ([facility]) Systolic blood pressure 137 mm[Hg] 137 mm[Hg] e CW1 ([facility]) Body temperature 98.7 [degF] 98.7 [degF] eCW1 ( [facility]) Respiratory rate 18 /min 18 /min eCW1 ([facility]) Heart rate 101 /min 101 /min eCW1 ([facility]) Body mass index (BMI) [Ratio] 36.58 kg/m2 36.58 kg/m2 eCW1 ([facility]) Body height 70 [in_i] 70 [in_i] eCW1 ([facility]) Body weight 115.67 kg 115.67 kg eCW1 ([facility]) Body weight 255.0 [lb_av] 255.0 [lb_av] eCW1 ([facility]) Diastolic blood pressure 80 mm[Hg] 80 mm[Hg] eCW1 ([facility]) Systolic blood pressure 156 mm[Hg] 156 mm[Hg] e CW1 ([facility]) Body temperature 96.9 [degF] 96.9 [degF] eCW1 ( [facility]) Respiratory rate 20 /min 20 /min eCW1 ([facility]) Heart rate 124 /min 124 /min eCW1 ([facility]) Body mass index (BMI) [Ratio] 35.06 kg/m2 35.06 kg/m2 W1 ([facility]) Body height 70 [in_i] 70 [in_i] eCW1 ([facility]) Body weight 244.4 [lb_av] 244.4 [lb_av] eCW1 ([facility]) Body mass index (BMI) [Ratio] 34.9 kg/m2 34.9 k g/m2 MEDENT ([facility]) Body weight 243.00 [lb_av] 243.00 [lb_av] MEDEN T ([facility]) Body height 70 [in_i] 70 [in_i] MEDENT ([facility]) 5'10" Body temperature 98.3 [degF] 98.3 [degF] MEDENT ([facility] ) Diastolic blood pressure 84 mm[Hg] 84 mm[Hg] eCW1 ([facility]) Systolic blood pressure 173 mm[Hg] 173 mm[Hg] e CW1 ([facility]) Body temperature 97.0 [degF] 97.0 [degF] eCW1 ( [facility]) Respiratory rate 18 /min 18 /min eCW1 ([facility]) Heart rate 107 /min 107 /min eCW1 ([facility]) Body mass index (BMI) [Ratio] 36.58 kg/m2 36.58 kg/m2 eCW1 ([facility]) Body height 70 [in_i] 70 [in_i] eCW1 ([facility]) Body weight 255.0 [lb_av] 255.0 [lb_av] eCW1 ([facility]) Body temperature 98.4 [degF] 98.4 [degF] MEDENT ([facility]) Diastolic blood pressure 80 mm[Hg] 80 mm[Hg] eCW1 ([facility]) Systolic blood pressure 150 mm[Hg] 150 mm[Hg] e CW1 ([facility]) Body temperature 96.8 [degF] 96.8 [degF] eCW1 ( [facility]) Respiratory rate 18 /min 18 /min eCW1 ([facility]) Heart rate 91 /min 91 /min eCW1 ([facility]) Body mass index (BMI) [Ratio] 37.45 kg/m2 37.45 kg/m2 eCW1 ([facility]) Body height 70 [in_i] 70 [in_i] eCW1 ([facility]) Body weight 261 [lb_av] 261 [lb_av] eCW1 ([facility]) Diastolic blood pressure 90 mm[Hg] 90 mm[Hg] eCW1 ([facility]) Systolic blood pressure 152 mm[Hg] 152 mm[Hg] e CW1 ([facility]) Body temperature 95.2 [degF] 95.2 [degF] eCW1 ( [facility]) Respiratory rate 18 /min 18 /min eCW1 ([facility]) Heart rate 100 /min 100 /min eCW1 ([facility]) Body mass index (BMI) [Ratio] 37.88 kg/m2 37.88 kg/m2 eCW1 ([facility]) Body height 70 [in_us] 70 [in_us] eCW1 ([facility]) Body weight Measured 264 [lb_av] 264 [lb_av] eC W1 ([facility]) Body mass index (BMI) [Ratio] 36.73 kg/m2 36.73 kg/m2 eCW1 ([facility]) Body height 70 [in_us] 70 [in_us] eCW1 ([facility]) Body weight Measured [lb_av] eCW1 ([facility]) Body mass index (BMI) [Ratio] 37.4 kg/m2 37.4 k g/m2 MEDENT ([facility]) Diastolic blood pressure 71 mm[Hg] 71 mm[Hg] MEDENT ([facility]) Systolic blood pressure 125 mm[Hg] 125 mm[Hg] M EDENT ([facility]) Respiratory rate 20 /min 20 /min MEDENT ( [facility]) Heart rate 96 /min 96 /min MEDENT ([facility] Body height 70 [in_i] 70 [in_i] MEDENT ([facility] 5'10" Body weight 260.50 [lb_av] 260.50 [lb_av] MEDEN T ([facility]) Diastolic blood pressure 74 mm[Hg] 74 mm[Hg] eCW1 ([facility]) Systolic blood pressure 130 mm[Hg] 130 mm[Hg] e CW1 ([facility]) Body temperature 95.9 [degF] 95.9 [degF] eCW1 ( [facility]) Respiratory rate 18 /min 18 /min eCW1 ([facility]) Heart rate 93 /min 93 /min eCW1 ([facility]) Body mass index (BMI) [Ratio] 38.88 kg/m2 38.88 kg/m2 eCW1 ([facility]) Body height 70 [in_us] 70 [in_us] eCW1 ([facility]) Body weight Measured 271 [lb_av] 271 [lb_av] eC W1 ([facility]) Diastolic blood pressure mm[Hg] eCW1 ([facility]) Systolic blood pressure 158 mm[Hg] 158 mm[Hg] e CW1 ([facility]) Body temperature 97.3 [degF] 97.3 [degF] eCW1 ( [facility]) Respiratory rate 18 /min 18 /min eCW1 ([facility]) Heart rate 97 /min 97 /min eCW1 ([facility]) Body mass index (BMI) [Ratio] 38.68 kg/m2 38.68 kg/m2 W1 ([facility]) Body height 70 [in_us] 70 [in_us] eCW1 ([facility]) Body weight Measured 269.6 [lb_av] 269.6 [lb_av ] eCW1 ([facility]) Diastolic blood pressure 78 mm[Hg] 78 mm[Hg] eCW1 ([facility]) Systolic blood pressure 140 mm[Hg] 140 mm[Hg] e CW1 ([facility]) Body temperature 96.3 [degF] 96.3 [degF] eCW1 ( [facility]) Respiratory rate 18 /min 18 /min eCW1 ([facility]) Heart rate 85 /min 85 /min eCW1 ([facility]) Body mass index (BMI) [Ratio] 40.17 kg/m2 40.17 kg/m2 eCW1 ([facility]) Body height 70 [in_us] 70 [in_us] eCW1 ([facility]) Body weight Measured 280 [lb_av] 280 [lb_av] eC W1 ([facility]) Diastolic blood pressure 64 mm[Hg] 64 mm[Hg] eCW1 ([facility]) Systolic blood pressure 117 mm[Hg] 117 mm[Hg] e CW1 ([facility]) Body temperature 96.2 [degF] 96.2 [degF] eCW1 ( [facility]) Respiratory rate 18 /min 18 /min eCW1 ([facility]) Heart rate 93 /min 93 /min eCW1 ([facility]) Body mass index (BMI) [Ratio] 37.30 kg/m2 37.30 kg/m2 eCW1 ([facility]) Body height 70 [in_us] 70 [in_us] eCW1 ([facility]) Body weight Measured 260 [lb_av] 260 [lb_av] eC W1 ([facility]) Diastolic blood pressure 80 mm[Hg] 80 mm[Hg] eCW1 ([facility]) Systolic blood pressure 152 mm[Hg] 152 mm[Hg] e CW1 ([facility]) Body temperature 96.4 [degF] 96.4 [degF] eCW1 ( [facility]) Respiratory rate 20 /min 20 /min eCW1 ([facility]) Heart rate 99 /min 99 /min eCW1 ([facility]) Body mass index (BMI) [Ratio] 37.30 kg/m2 37.30 kg/m2 eCW1 ([facility]) Body height 70 [in_us] 70 [in_us] eCW1 ([facility]) Body weight Measured 260 [lb_av] 260 [lb_av] eC W1 ([facility]) Diastolic blood pressure 88 mm[Hg] 88 mm[Hg] eCW1 ([facility]) Systolic blood pressure 160 mm[Hg] 160 mm[Hg] e CW1 ([facility]) Body temperature 96.5 [degF] 96.5 [degF] eCW1 ( [facility]) Respiratory rate 20 /min 20 /min eCW1 ([facility]) Heart rate 97 /min 97 /min eCW1 ([facility]) Body mass index (BMI) [Ratio] 37.88 kg/m2 37.88 kg/m2 eCW1 ([facility]) Body height 70 [in_us] 70 [in_us] eCW1 ([facility]) Body weight Measured 264 [lb_av] 264 [lb_av] eC W1 ([facility]) Diastolic blood pressure 82 mm[Hg] 82 mm[Hg] eCW1 ([facility]) Systolic blood pressure 156 mm[Hg] 156 mm[Hg] e CW1 ([facility]) Body temperature 96.3 [degF] 96.3 [degF] eCW1 ( [facility]) Respiratory rate 20 /min 20 /min eCW1 ([facility]) Heart rate 96 /min 96 /min eCW1 ([facility]) Body mass index (BMI) [Ratio] 37.45 kg/m2 37.45 kg/m2 eCW1 ([facility]) Body height 70 [in_us] 70 [in_us] eCW1 ([facility]) Body weight Measured 261 [lb_av] 261 [lb_av] eC W1 ([facility]) Heart rate 84 /min 84 /min eCW1 ([facility]) Body mass index (BMI) [Ratio] 36.99 kg/m2 36.99 kg/m2 eCW1 ([facility]) Body height 70 [in_us] 70 [in_us] eCW1 ([facility]) Body weight Measured 257.8 [lb_av] 257.8 [lb_av ] eCW1 ([facility]) Diastolic blood pressure 95 mm[Hg] 95 mm[Hg] eCW1 ([facility]) Systolic blood pressure 201 mm[Hg] 201 mm[Hg] e CW1 ([facility]) Body temperature 97.2 [degF] 97.2 [degF] eCW1 ( [facility]) Respiratory rate 20 /min 20 /min eCW1 ([facility]) Patient Treatment Plan of Care Planned Activity Planned Date Details Description Data Source (s) Levofloxacin 250 MG Oral Tablet 10/31/2020 12:00:00 AM EST eCW1 ([facility]) Ketorolac Tromethamine 5 MG/ML Ophthalmic Solution 10/06/2020 12 :00:00 AM EST DAVID (Ben Hyde MD [facility]) prednisolone acetate 10 MG/ML Ophthalmic Suspension [P red Forte] 10/06/2020 12:00:00 AM EST DAVID (Ben Hyde MD [facility]) prednisolone acetate 10 MG/ML Ophthalmic Suspension [P red Forte] 09/26/2020 12:00:00 AM EST DAVID (Ben Hyde MD [facility]) Ketorolac Tromethamine 5 MG/ML Ophthalmic Solution 09/26/2020 12 :00:00 AM EST DAVID (Ben Hyde MD [facility]) moxifloxacin 5 MG/ML Ophthalmic Solution 08/22/2020 12:00:00 AM EST DAVID (Ben Hyde MD [facility]) BromSite 0.075% Ophthalmic Solution 08/22/2020 12:00:00 AM EST DAVID (Ben Hyde MD [facility]) Inveltys 1% Ophthalmic Suspension 08/22/2020 12:00:00 AM EST DAVID (Bne Hyde MD [facility]) loteprednol etabonate 5 MG/ML Ophthalmic Suspension [L otemax] 06/27/2020 12:00:00 AM EDT DAVID (Ben Hyde MD [facility]) Wheelchair - 04/28/2020 12:00:00 AM EDT e CW1 ([facility]) Levofloxacin 750 MG Oral Tablet 12/13/2019 12:00:00 AM EST eCW1 ([facility]) Cyclosporine 0.5 MG/ML Ophthalmic Suspension [Restasis ] 12/11/2019 12:00:00 AM EST DAVID (Ben Hyde MD [facility]) FreeStyle Dwight 14 Day Sensor - 12/10/2019 12:00:00 AM EST eCW1 ([facility]) FreeStyle Dwight 14 Day Sensor - 12/10/2019 12:00:00 AM EST eCW1 ([facility]) Amlodipine 2.5 MG Oral Tablet 11/12/2019 12:00:00 AM EST eCW1 ([facility]) Amlodipine 2.5 MG Oral Tablet 11/12/2019 12:00:00 AM EST eCW1 ([facility]) Amlodipine 2.5 MG Oral Tablet 11/12/2019 12:00:00 AM EST eCW1 ([facility]) Amlodipine 2.5 MG Oral Tablet 11/12/2019 12:00:00 AM EST eCW1 ([facility]) Amlodipine 2.5 MG Oral Tablet 11/12/2019 12:00:00 AM EST eCW1 ([facility]) Amlodipine 2.5 MG Oral Tablet 11/12/2019 12:00:00 AM EST eCW1 ([facility]) Doxycycline Monohydrate 100 MG Oral Capsule 11/12/2019 12:00:00 AM EST eCW1 ([facility]) Amlodipine 2.5 MG Oral Tablet 11/12/2019 12:00:00 AM EST eCW1 ([facility]) Amlodipine 2.5 MG Oral Tablet 11/12/2019 12:00:00 AM EST eCW1 ([facility]) Amlodipine 2.5 MG Oral Tablet 11/12/2019 12:00:00 AM EST eCW1 ([facility]) loteprednol etabonate 0.005 MG/MG Ophthalmic Gel [Lote max] 07/31/2019 12:00:00 AM EDT DAVID (Ben Hyde MD [facility]) loteprednol etabonate 0.005 MG/MG Ophthalmic Gel [Lote max] 12/19/2018 12:00:00 AM EST DAVID (Ben Hyde MD [facility]) Ofloxacin 3 MG/ML Ophthalmic Solution 05/29/2018 12:00:00 AM EDT DAVID (Ben Hyde MD [facility])
--- OUTSIDE RECORDS SUMMARY | 2020-11-17 19:40 | CCD ---
Author Author [facility] Organization [facility] Address Unknown Phone Unavailable Care Team Providers Care Pricing Strategist Name Role Phone Silvina Quijano MD Unavailable [...] Unavailable [phone] CLARK, A. HOSEA DO Unavailable [phone] Brandin CHIRINOS DO Unavailable [phone] Brandin CHIRINOS DO Unavailable [phone] Brandin CHIRINOSEW DO Unavailable [phone] Brandin CHIRINOSEW DO Unavailable [phone] Brandin CHIRINOSEW DO Unavailable [phone] Brandin CHIRINOSEW DO Unavailable [phone] Brandin CHIRINOSEW DO Unavailable [phone] Brandin CHIRINOS DO Unavailable [phone] Brandin CHIRINOS DO Unavailable [phone] Brandin CHIRINOS DO Unavailable [phone] TOM, Silvina MARTIN MD Unavailable Unavailable [...] Unavailable TOM, Silvina MARTIN MD Unavailable Unavailable OTM, Silvina MARTIN MD Unavailable Unavailable TOM, Silvina [...] Unavailable TOM, Silvina MARTIN MD Unavailable Unavailable TMO, Silvina MARTIN MD Unavailable Unavailable TOM, Silvina [...] Randolph ROBERSON Unavailable Unavailable Ferdinand, L Tamika PUPIL PERSONNEL WORKER Unavailable Unavailable Ferdinand, L Tamika PUPIL PERSONNEL WORKER Unavailable Unavailable Ferdinand, L Tamika PUPIL PERSONNEL WORKER Unavailable Unavailable Imogene, L Tamika PUPIL PERSONNEL WORKER Unavailable Unavailable Ferdinand, L Tamika PUPIL PERSONNEL WORKER Unavailable Unavailable Imogene, L Tamika PUPIL PERSONNEL WORKER Unavailable Unavailable Imogene, L Tamika PUPIL PERSONNEL WORKER Unavailable Unavailable Imogene, L Tamika PUPIL PERSONNEL WORKER Unavailable Unavailable Ferdinand, L Tamika PUPIL PERSONNEL WORKER Unavailable Unavailable Ferdinand, L Tamika PUPIL PERSONNEL WORKER Unavailable Unavailable Imogene, L Tamika PUPIL PERSONNEL WORKER Unavailable Unavailable Imogene, L Tamika PUPIL PERSONNEL WORKER Unavailable Unavailable Ferdinand, L Tamika PUPIL PERSONNEL WORKER Unavailable Unavailable Ferdinand, L Tamika PUPIL PERSONNEL WORKER Unavailable Unavailable Imogene, L Tamika PUPIL PERSONNEL WORKER Unavailable Unavailable Ferdinand, L Tamika PUPIL PERSONNEL WORKER Unavailable Unavailable Imogene, L Tamika PUPIL PERSONNEL WORKER Unavailable Unavailable Imogene, L Tamika PUPIL PERSONNEL WORKER Unavailable Unavailable Imogene, L Tamika PUPIL PERSONNEL WORKER Unavailable Unavailable Imogene, L Tamika PUPIL PERSONNEL WORKER Unavailable Unavailable Imogene, L Tamika PUPIL PERSONNEL WORKER Unavailable Unavailable Ferdinand, L Tamika PUPIL PERSONNEL WORKER Unavailable Unavailable Ferdinand, L Tamika PUPIL PERSONNEL WORKER Unavailable Unavailable Ferdinand, L Tamika PUPIL PERSONNEL WORKER Unavailable Unavailable Ferdinand, L Tamika PUPIL PERSONNEL WORKER Unavailable Unavailable Ferdinand, L Tamika PUPIL PERSONNEL WORKER Unavailable Unavailable Imogene, L Tamika PUPIL PERSONNEL WORKER Unavailable Unavailable Imogene, L Tamika PUPIL PERSONNEL WORKER Unavailable Unavailable Ferdinand, L Tamika PUPIL PERSONNEL WORKER Unavailable Unavailable Imogene, L Tamika PUPIL PERSONNEL WORKER Unavailable Unavailable Imogene, L Tamika PUPIL PERSONNEL WORKER Unavailable Unavailable Imogene, L Tamika PUPIL PERSONNEL WORKER Unavailable Unavailable Ferdinand, L Tamika PUPIL PERSONNEL WORKER Unavailable Unavailable Ferdinand, L Tamika PUPIL PERSONNEL WORKER Unavailable Unavailable Re-disclosure Warning The records that [...] is protected by Article 27-F of the [facility] Public Health law. If you continue you may have access to information: Regarding HIV / AIDS; Provided by facilities licensed or operated by the [facility] Office of Mental Health; or Provided by the [facility] Office for People With Developmental Disabilities. If such information is present, then the following [facility] mandated warning applies: This information has been [...] law may result in a fine or mcc sentence or both. A general authorization for the release of medical or other information is NOT sufficient authorization for further disc losure. Allergies and Adverse Reactions Type Description Substance Reaction Status Data Source(s ) Drug allergy Tricor Fenofibrate Hives Active eCW1 ([facility]) Drug allergy Lipitor atorvastatin Hives Active eCW1 ([facility]) Drug allergy Keflex Cephalexin [facility] Fresh Pineapple Fresh Pineapple Fresh Pineapple swollen lips/ sore s in mouth Active eCW1 ([facility]) Glucophage Glucophage Metformin hydrochloride 1000 MG Oral Tablet [Glucophage] Hives Active eCW1 ([facility]) Fresh Pineapple Fresh Pineapple Fresh Pineapple swollen lips/ sore s in mouth Active eCW1 ([facility]) Fresh Pineapple Fresh Pineapple Fresh Pineapple swollen lips/ sore s in mouth Active eCW1 ([facility]) Fresh Pineapple Fresh Pineapple Fresh Pineapple swollen lips/ sore s in mouth Active eCW1 ([facility]) Fresh Pineapple Fresh Pineapple Fresh Pineapple swollen lips/ sore s in mouth Active eCW1 ([facility]) Fresh Pineapple Fresh Pineapple Fresh Pineapple swollen lips/ sore s in mouth Active eCW1 ([facility]) Fresh Pineapple Fresh Pineapple Fresh Pineapple swollen lips/ sore s in mouth Active eCW1 ([facility]) Fresh Pineapple Fresh Pineapple Fresh Pineapple swollen lips/ sore s in mouth Active eCW1 ([facility]) Fresh Pineapple Fresh Pineapple Fresh Pineapple swollen lips/ sore s in mouth Active eCW1 ([facility]) Fresh Pineapple Fresh Pineapple Fresh Pineapple swollen lips/ sore s in mouth Active eCW1 ([facility]) Family History Family Member Name Family Member Gender Family Member Status Date o f Status Description Data Source(s) Unknown Unknown Problem MEDENT ([facility], ) Father Encounters Encounter Providers Location Date Indications Data Source(s ) Outpatient Attender: VERONICA SANTOS MDReferrer: Mireille Quijano MD 11/11/2020 09:09:39 AM EST [facility] Recurring Patient Referrer: Randolph Shine MD 08:19:34 AM EST [facility] Recurring Patient Referrer: Randolph Shine MD 01:29:29 PM EST [facility] Recurring Patient Referrer: Randolph Shine MD 12:48:42 PM EST [facility] [place] [address] [facility] [address] 10/31/2020 12:00:00 AM EST eCW1 ([facility]) Unknown [address] [facility] [address] 10/30/2020 12:00:00 AM EST eCW1 ([facility]) Unknown [address] [facility] [address] 10/29/2020 12:00:00 AM EST eCW1 ([facility]) Recurring Patient Referrer: Randolph Shine MD 09/2021 11:33:15 AM EST [facility] Unknown [address] [facility] [address] 10/27/2020 12:00:00 AM EST eCW1 ([facility]) Unknown [address] [facility] [address] 10/24/2020 12:00:00 AM EST eCW1 ([facility]) Out[place] [address] [facility] [address] 10/24/2020 12:00:00 AM EST eCW1 ([facility]) Unknown [address] [facility] [address] 10/22/2020 12:00:00 AM EST eCW1 ([facility]) Outpatient<td ID="encounterTypeDescripti onID0">Rx Refills/Changes</td><td>Hosea Chirinos DO</td><td></td><td>10/06/2020</td><td>10/03/2020 1:44PM</td><td>10/03/2020 11:59PM</td><td></td> Attender: HOSEA CHIRINOS DO 020 01:44:00 PM EST - 10/03/2020 11:59:00 PM EST [place] (Ben Hyde MD [facility]) Outpatient<td ID="encounterTypeDescripti onID1">1 Week Post OP</td><td>Hosea Chirinos DO</td><td>Ben Otto MD [facility]</td><td>10/03/2020</td><td>12:57PM</td><td>1:39PM</td><td><content ID="encounterDiagnosisID1-0">Cystoid Macular Edema</content>, <content ID="encounterDiagnosisID1-1">Pseudophakia</content></td> Attender: HOSEA Cullen MD [facility] 10/03/2020 12:57:00 PM EST - 10/03/2020 01:39:00 PM EST Cystoid Macular EdemaPseudophakia [facility] (Ben Hyde MD [facility]) Cystoid Macular Edema Pseudophakia Outpatient<td ID="encounterTypeDescripti onID2">1 Day Post OP</td><td>Hosea Chirinos DO</td><td>Ben Otto MD [facility]</td><td>09/26/2020</td><td>8:33AM</td><td>10:00AM</td><td><content ID="encounterDiagnosisID2-0">Pseudophakia</content>, <content ID="encounterDiagnosisID2-1">Posterior Capsule Opacification Eccentric Capsule Right Eye</content>, <content ID="encounterDiagnosisID2-2">Cystoid Macular Edema</content></td> Attender: HOSEA Cullen MD [facility] 09/26/2020 08:33:00 AM EST - 09/26/2020 10:00:00 AM EST Cystoid Macular EdemaPosterior Capsule Opacification Eccentric Capsule Right EyeCystoid Macular EdemaPosterior Capsule Opacification Eccentric Capsule Right EyePosterior Capsule Opacification Eccentric Capsule Right EyePseudophakiaPseudophakia Pseudophakia [facility] (Ben Hyde MD [facility]) Cystoid Macular Edema Posterior Capsule Opacification Eccentri c Capsule Right Eye Cystoid Macular Edema Posterior Capsule Opacification Eccentri c Capsule Right Eye Posterior Capsule Opacification Eccentri c Capsule Right Eye Pseudophakia Pseudophakia Pseudophakia ([id number]) For Template Ervin [address] [place] [address] 09/22/2020 12:00:00 AM EST eCW1 ([facility]) Unknown [address] [facility] [address] 09/22/2020 12:00:00 AM EST eCW1 ([facility]) Unknown [address] [facility] [address] 09/15/2020 12:00:00 AM EST eCW1 ([facility]) Outpatient [address] [facility] [address] 09/15/2020 12:00:00 AM EST eCW1 ([facility]) Outpatient [address] [facility] [address] 09/08/2020 12:00:00 AM EST eCW1 ([facility]) Outpatient [address] [facility] [address] 09/05/2020 12:00:00 AM EST eCW1 ([facility]) Outpatient<td ID="encounterTypeDescripti onID3">SAME DAY POST OP</td><td>Hosea Chirinos DO</td><td>[facility]</td><td>09/25/2020</td><td>09/04/2020 4:40PM</td><td>7:05AM</td><td></td> Attender: HOSEA CHIRINOS DO [facility] 08/17 04:40:00 PM EST - 09/25/2020 07:05:00 AM EST [place] (Ben Hyde MD [facility]) Outpatient<td ID="encounterTypeDescripti onID5">POST OP VISIT WITH PRE- OP</td><td>Hosea Chirinos DO</td><td>Ben Otto MD [facility]</td><td>09/04/2020</td><td>1:46PM</td><td>2:33PM</td><td><content ID="encounterDiagnosisID5-0">Pseudophakia</content>, <content ID="encounterDiagnosisID5-1">Cataract Senile Posterior Subcapsular Polar</content></td> Attender: HOSEA Cullen MD [facility] 09/04/2020 01:46:00 PM EST - 09/04/2020 02:33:00 PM EST Cataract Senile Posterior Subcapsular PolarPseudophakiaCataract Senile Posterior Subcapsular PolarPseudophakiaCataract Senile Posterior Subcapsular PolarPseudophakia [facility] (eBn Hyde MD [facility]) Cataract Senile Posterior Subcapsular Po lar Pseudophakia Cataract Senile Posterior Subcapsular Po lar Pseudophakia Cataract Senile Posterior Subcapsular Po lar Pseudophakia Outpatient<td ID="encounterTypeDescripti onID4">Extracapsular cataract removal w/IOL implant</td><td>Hosea Chirinos DO</td><td>[facility]</td><td>09/25/2020</td><td>09/04/2020 6:50AM</td><td>7:07AM</td><td></td> Attender: HOSEA CHIRINOS DO [facility] 08/17 06:50:00 AM EST - 09/25/2020 07:07:00 AM EST [place] (Ben Hyde MD [facility]) Unknown [address] [facility], [place] [address] 09/03/2020 12:00:00 AM EST eCW1 ([facility]) Unknown [address] [facility] [place] [address] 09/02/2020 12:00:00 AM EST eCW1 ([facility]) Outpatient [address] [facility] [address] 08/29/2020 12:00:00 AM EST eCW1 ([facility]) Outpatient<td ID="encounterTypeDescripti onID6">SAME DAY POST OP</td><td>Hosea Chirinos DO</td><td>[facility]</td><td>08/28/2020</td><td>7:33AM</td><td>7:33AM</td><td></td> Attender: HOSEA CHIRINOS DO [facility] 08/28/2020 07:33:00 AM EST - 08/28/2020 07:33:00 AM EST [place] (Ben hummel MD [facility]) Outpatient<td ID="encounterTypeDescripti onID7">Extracapsular cataract removal w/IOL implant</td><td>Hosea Chirinos DO</td><td>[facility]</td><td>08/28/2020</td><td>7:03AM</td><td>7:03AM</td><td></td> Attender: HOSEA CHIRINOS DO [facility] 08/28/2020 07:03:00 AM EST - 08/28/2020 07:03:00 AM EST [place] (Ben hummel MD [facility]) Outpatient [address] [facility] [address] 08/26/2020 12:00:00 AM EST eCW1 ([facility]) Outpatient [address] [facility] [place] [address] 08/25/2020 12:00:00 AM EST eCW1 ([facility]) Outpatient<td ID="encounterTypeDescripti onID8">1 WK PREOP FOR SURGERY</td><td>Hosea Chirinos DO</td><td>Ben Otto MD [facility]</td><td>08/22/2020</td><td>12:36PM</td><td>1:44PM</td><td><content ID="encounterDiagnosisID8-0">Cataract Senile Posterior Subcapsular Polar</content></td> Attender: HOSEA Cullen MD [facility] 08/22/2020 12:36:00 PM EST - 08/22/2020 01:44:00 PM EST Cataract Senile Posterior Subcapsular PolarCataract Senile Posterior Subcapsular PolarCataract Senile Posterior Subcapsular Polar [facility] (Ben Hyde MD [facility]) Cataract Senile Posterior Subcapsular Po lar Cataract Senile Posterior Subcapsular Po lar Cataract Senile Posterior Subcapsular Po lar Unknown [address] [facility] [address] 08/21/2020 12:00:00 AM EST eCW1 ([facility]) Unknown [address] [facility] [address] 08/19/2020 12:00:00 AM EST [facility] (WND NP120) New Patient 120 Min [address] [place] [address] 08/18/2020 12:00:00 AM EST eCW1 ([facility]) Outpatient [address] [facility] [address] 08/15/2020 12:00:00 AM EDT [facility]CW1 [facility]) Unknown [address] [facility] [address] 08/14/2020 12:00:00 AM EDT [facility]CW1 [facility]) Unknown [address] [facility] [address] 08/06/2020 12:00:00 AM EDT eCW1 ([facility]) [place] [address] [facility] [place] [address] 07/22/2020 12:00:00 AM EDT eCW1 ([facility]) Unknown [address] [facility] [address] 07/17/2020 12:00:00 AM EDT eCW1 ([facility]) Unknown [address] [facility] [address] 07/16/2020 12:00:00 AM EDT eCW1 ([facility]) Unknown [address] [facility] [address] 07/16/2020 12:00:00 AM EDT eCW1 ([facility]) Outpatient Attender: Mic Vee/Elaina/Justyn/Re indl 07/14/2020 02:50:00 PM EDT [facility] ([facility] ) Outpatient<td ID="encounterTypeDescripti onID9">Insertion of Punctal Plug IN OFFICE-NEED AUTH</td><td>Hosea Chirinos DO</td><td>Ben Otto MD [facility]</td><td>07/09/2020</td><td>9:40AM</td><td>11:02AM</td><td><content ID="encounterDiagnosisID9-0">Cataract Senile Posterior Subcapsular Polar</content>, <content ID="encounterDiagnosisID9-1">Dry Eye Syndrome</content></td> Attender: HOSEA Cullen MD [facility] 07/09/2020 09:40:00 AM EDT - 07/09/2020 11:02:00 AM EDT Cataract Senile Posterior Subcapsular PolarCataract Senile Posterior Subcapsular PolarCataract Senile Posterior Subcapsular PolarCataract Senile Posterior Subcapsular PolarDry Eye SyndromeDry Eye SyndromeDry Eye SyndromeDry Eye Syndrome [facility] (Ben Hyde MD [facility]) Cataract Senile Posterior Subcapsular Po lar Cataract Senile Posterior Subcapsular Po lar Cataract Senile Posterior Subcapsular Po lar Cataract Senile Posterior Subcapsular Po lar Dry Eye Syndrome Dry Eye Syndrome Dry Eye Syndrome Dry Eye Syndrome Outpatient<td ID="encounterTypeDescripti onID10">6 Month Follow- Up</td><td>Hosea Chirinos DO</td><td>Ben Otto MD 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 06/27/2020 01:18:00 PM EDT - 06/27/2020 [...] Ocular Hypertension [facility] (Ben Hyde MD [facility]) Taking Medication For Diabetes Long-term Use [...] Keratoconjunctivitis Borderline Glaucoma Ocular Hypertension Unknown [address] [facility], [facility] [address] 06/27/2020 12:00:00 AM EDT eCW1 ([facility]) Outpatient [address] [facility] [address] 06/11/2020 12:00:00 AM EDT eCW1 ([facility]) [facility] [place] [address] [facility] [place] [address] 05/13/2020 12:00:00 AM EDT eCW1 ([facility]) Office Visit Attender: CAITY GRAVES Physical Therapy 04/30/2020 03:15:00 PM EDT [facility] ([facility]) Outpatient [address] [facility] [address] 04/29/2020 12:00:00 AM EDT eCW1 ([facility]) Unknown [address] [facility] [address] 04/28/2020 12:00:00 AM EDT eCW1 ([facility]) Outpatient<td ID="encounterTypeDescripti onID12">TRIAGE NON URGENT</td><td>Hosea Chirinos DO</td><td>Ben Otto MD 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 04/21/2020 02:19:00 PM EDT - 04/21/2020 03:19:00 PM EDT Type 1 Diab W/ Diab Retinopathy Mod Nonp rolif Without Macular EdemaType 1 Diab W/ Diab Retinopathy Mod Nonprolif Without Macular EdemaType 1 Diab W/ Diab Retinopathy Mod Nonprolif Without Macular EdemaType 1 Diab W/ Diab Retinopathy Mod Nonprolif Without Macular EdemaKeratoconjunctivitisDry Eye SyndromeKeratoconjunctivitisDry Eye SyndromeKeratoconjunctivitisDry Eye SyndromeKeratoconjunctivitisDry Eye Syndrome [place] (Ben Hyde MD [facility]) Type 1 Diab W/ Diab Retinopathy [...] Follow- Up</td><td>Hosea Chirinos DO</td><td>Ben Otto MD [facility]</td><td>05/01/2020</td><td>04/21/2020 9:40AM</td><td>04/21/2020 11:59PM</td><td></td> Attender: HOSEA Cullen MD [facility] 04/21/2020 09:40:00 AM EDT - 04/21/2020 11:59:00 PM EDT [place] (Ben Hyde MD [facility]) Office Visit Attender: Germán Hayden MD Physical Therapy 03/2020 08:30:00 AM EDT MED[facility] ([facility]) Unknown [address] [place] [address], [facility] [address] 03/20/2020 12:00:00 AM EDT eCW1 [facility]) Outpatient [address] [place] [address] 03/19/2020 12:00:00 AM EDT eCW1 ([facility]) Outpatient Referrer: Mireille Quijano MD 02/24/2020 09:25:00 A M EDT [facility] [address] [address] 02/20/2020 12:00:00 AM EDT [facility] [address] [place] [address] 02/12/2020 12:00:00 AM EDT eCW1 ([facility] [address] [address] 01/31/2020 12:00:00 AM EDT eCW1 ([facility] [address], [facility] [address] 01/15/2020 12:00:00 AM EDT eCW1 ([facility]) Outpatient Attender: WONG GRAVES 01/14/2020 12:00:0 0 AM EDT [facility] Outpatient Attender: Tamika DAVISON Main Office 01/08/2020 02:15:0 0 PM EDT MED[facility] ([facility]) [facility] [place] [address] [facility] [address] 12/13/2019 12:00:00 AM EST eCW1 ([facility]) [facility] [place] [address] [facility] [address] 12/13/2019 12:00:00 AM EST eCW1 ([facility]) Outpatient<td ID="encounterTypeDescripti onID13">Insertion of Punctal Plug IN OFFICE-NEED AUTH</td><td>Hosea Chirinos DO</td><td>[facility]</td><td>12/11/2019</td><td>12:52PM</td><td>1:56PM</td><td><content ID="zueqddlbzJwnbujuqyDM16-7">Dry Eye Syndrome</content>, <content ID="yqgyyqvuiZssugeiqdDK98-7">Borderline Glaucoma Ocular Hypertension</content>, <content ID="evshvrvpdPbasxnnqkQW08-2">Refractive Error - Myopia Bilateral</content></td> Att[facility]: [facility] 12/11/2019 12:52:00 PM EST - 12/11/2019 01:56:00 PM ES T Refractive Error - Myopia BilateralRefractive Error - Myopia BilateralRefractive Error - Myopia BilateralRefractive Error - Myopia BilateralBorderline Glaucoma Ocular HypertensionDry Eye SyndromeBorderline Glaucoma Ocular HypertensionDry Eye SyndromeBorderline Glaucoma Ocular HypertensionDry Eye SyndromeBorderline Glaucoma Ocular HypertensionDry Eye Syndrome [place] ([facility]) 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 - Myopia Bilateral Borderline Glaucoma Ocular Hypertension Dry Eye Syndrome Borderline Glaucoma Ocular Hypertension Dry Eye Syndrome Borderline Glaucoma Ocular Hypertension Dry Eye Syndrome Borderline Glaucoma Ocular Hypertension Dry Eye Syndrome Outpatient Attender: Germán Hayden MD Physical Therapy 07:15:00 AM EST [facility] ([facility]) [address], [facility] [address] 12/10/2019 12:00:00 AM EST eCW1 ([facility]) Outpatient Referrer: Mireille Quijano MD 12/03/2019 05:03:00 A M EST [facility] [address] [place] [address] 11/30/2019 12:00:00 AM EST eCW1 ([facility]) Outpatient Referrer: Mireille Quijano MD 11/21/2019 09:21:00 A M EST [facility] [address] [place] [phone] 11/14/2019 12:00:00 AM EST eCW1 ([facility]) [facility] [address] [place] [address] 11/13/2019 12:00:00 AM EST eCW1 ([facility]) [address], [place] [address] 11/12/2019 12:00:00 AM EST eCW1 ([facility]) [address] [address] 11/12/2019 12:00:00 AM EST eCW1 ([facility]) Outpatient Attender: Germán Hayden MD Physical Therapy 01:45:00 PM EST [facility] ([facility]) Outpatient Attender: WONG GRAVES 11/09/2019 12:00:0 0 AM EST [facility] [address] [place] [phone] 11/08/2019 12:00:00 AM EST eCW1 ([facility]) Outpatient<td ID="encounterTypeDescripti onID14">TRIAGE NON URGENT</td><td>Hosea Chirinos DO</td><td>Ben Otto MD [facility]</td><td>10/24/2019</td><td>8:29AM</td><td>9:05AM</td><td><content ID="[id number]">Borderline Glaucoma Ocular Hypertension</content>, <content ID="[id number]">Dry Eye Syndrome</content>, <content ID="[id number]">Blepharitis Squamous</content>, <content ID="[id number]">Keratoconjunctivitis</content></td> Attender: HOSEA Cullen MD [facility] 10/24/2019 08:29:00 AM EST - 10/24/2019 09:05:00 AM EST Blepharitis SquamousBlepharitis Squamous Blepharitis SquamousBlepharitis SquamousBlepharitis SquamousKeratoconjunctivitisDry Eye SyndromeBorderline Glaucoma Ocular HypertensionKeratoconjunctivitisDry Eye SyndromeBorderline Glaucoma Ocular HypertensionKeratoconjunctivitisDry Eye SyndromeBorderline Glaucoma Ocular HypertensionKeratoconjunctivitisDry Eye SyndromeBorderline Glaucoma Ocular HypertensionKeratoconjunctivitisDry Eye SyndromeBorderline Glaucoma Ocular Hypertension [place] (Ben Hyde MD [facility]) Blepharitis Squamous Blepharitis Squamous Blepharitis Squamous Blepharitis Squamous Blepharitis Squamous Keratoconjunctivitis Dry Eye Syndrome Borderline Glaucoma Ocular Hypertension Keratoconjunctivitis Dry Eye Syndrome Borderline Glaucoma Ocular Hypertension Keratoconjunctivitis Dry Eye Syndrome Borderline Glaucoma Ocular Hypertension Keratoconjunctivitis Dry Eye Syndrome Borderline Glaucoma Ocular Hypertension Keratoconjunctivitis Dry Eye Syndrome Borderline Glaucoma Ocular Hypertension [facility] [address] [facility] [address] 10/16/2019 12:00:00 AM EST eCW1 ([facility]) [facility] [address] [facility] [address] 10/15/2019 12:00:00 AM EST eCW1 ([facility]) [facility] [address] [facility] [address] 10/15/2019 12:00:00 AM EST eCW1 ([facility]) [address] [address] 10/12/2019 12:00:00 AM EST eCW1 ([facility]) [facility] [address] [place] [address], [place] [address] 10/12/2019 12:00:00 AM EST eCW1 ([facility]) [address] [address] 10/11/2019 12:00:00 AM EST eCW1 ([facility]) Outpatient Attender: WONG GRAVES 10/05/2019 12:00:0 0 AM EST [facility] [address] [place] [address] [address] 10/01/2019 12:00:00 AM EST eCW1 ([facility]) [address] [address] 09/28/2019 12:00:00 AM EST eCW1 ([facility]) [address] [address] 09/28/2019 12:00:00 AM EST eCW1 ([facility]) [address] [address] 09/28/2019 12:00:00 AM EST eCW1 ([facility]) Immunizations Vaccine Date Status Description Data Source(s) influenza, recombinant, quadrIvalent,injectable, prese rvative free 09/15/2020 08:33:00 AM EST completed eCW1 ([facility]) influenza, recombinant, quadrIvalent,injectable, prese rvative free 09/15/2020 08:33:00 AM EST completed eCW1 ([facility]) influenza, recombinant, quadrIvalent,injectable, prese rvative free 09/15/2020 08:33:00 AM EST completed eCW1 ([facility]) influenza, recombinant, quadrIvalent,injectable, prese rvative free 09/15/2020 08:33:00 AM EST completed eCW1 ([facility]) influenza, recombinant, quadrIvalent,injectable, prese rvative free 09/15/2020 08:33:00 AM EST completed eCW1 ([facility]) influenza, recombinant, quadrIvalent,injectable, prese rvative free 09/15/2020 08:33:00 AM EST completed eCW1 ([facility]) influenza, recombinant, quadrIvalent,injectable, prese rvative free 09/15/2020 08:33:00 AM EST completed eCW1 ([facility]) influenza, recombinant, quadrIvalent,injectable, prese rvative free 09/15/2020 08:33:00 AM EST completed eCW1 ([facility]) influenza, recombinant, quadrIvalent,injectable, prese rvative free 09/15/2020 08:33:00 AM EST completed eCW1 ([facility]) influenza, recombinant, quadrIvalent,injectable, prese rvative free 09/15/2020 08:33:00 AM EST completed eCW1 ([facility]) influenza, recombinant, quadrIvalent,injectable, prese rvative free 09/15/2020 08:33:00 AM EST completed eCW1 ([facility]) influenza, recombinant, quadrIvalent,injectable, prese rvative free 09/15/2020 08:33:00 AM EST completed eCW1 ([facility]) influenza, recombinant, quadrIvalent,injectable, prese rvative free 09/15/2020 08:33:00 AM EST completed eCW1 ([facility]) influenza, recombinant, quadrIvalent,injectable, prese rvative free 09/15/2020 08:33:00 AM EST completed eCW1 ([facility]) influenza, recombinant, quadrIvalent,injectable, prese rvative free 09/15/2020 08:33:00 AM EST completed eCW1 ([facility]) Medications Medication Brand Name Start Date Product Form Dose Route Admi nistrative Instructions Pharmacy Instructions Status Indications Reaction Description Data Source(s) 300 mg 11/12/2020 12:00:00 AM EST capsule 60 TAKE ONE CAPSULE BY MOUTH TWICE A DAY MAXIMUM DAILY DOSE = 2 CAPSULES TAKE ONE CAPSULE BY MOUTH TWICE A DAY MAXIMUM DAILY DOSE = 2 CAPSULES SOLD: 11/12/2020 [facility] 10-325 mg 11/10/2020 12:00:00 AM EST tablet 180 TAKE ONE TABLET BY MOUTH EVERY 4 HOURS MAXIMUM DAILY DOSE = SIX TABLETS TAKE ONE TABLET BY MOUTH EVERY 4 HOURS MAXIMUM DAILY DOSE = SIX TABLETS SOLD: 11/10/2020 [facility] 10 mg 11/07/2020 12:00:00 AM EST capsule 30 TAKE ONE CAPSULE BY MOUTH AT BEDTIME NEEDED MAXIMUM DAILY DOSE = 1 CAPSULE TAKE ONE CAPSULE BY MOUTH AT BEDTIME NEEDED MAXIMUM DAILY DOSE = 1 CAPSULE SOLD: 11/10/2020 [facility] Levofloxacin 250 MG Oral Tablet Levofloxacin 250 MG 10/31/2020 1 2:00:00 AM EST 2.0 {tablets} active Levofloxac in 250 MG eCW1 ([facility]) Levofloxacin 250 MG Oral Tablet Levofloxacin 250 MG 10/31/2020 1 2:00:00 AM EST 2.0 {tablets} active Levofloxac in 250 MG eCW1 ([facility]) Levofloxacin 250 MG Oral Tablet Levofloxacin 250 MG 10/31/2020 1 2:00:00 AM EST 2.0 {tablets} active Levofloxac in 250 MG eCW1 ([facility]) Levofloxacin 250 MG Oral Tablet Levofloxacin 250 MG 10/31/2020 1 2:00:00 AM EST 2.0 {tablets} active Levofloxac in 250 MG eCW1 ([facility]) 250 mg 10/31/2020 12:00:00 AM EST tablet 20 TAKE TWO TABLETS BY MOUTH EVERY DAY TAKE TWO TABLETS BY MOUTH EVERY DAY SOLD: 11/01/2020 [facility] valacyclovir 1000 MG Oral Tablet VALACYCLOVIR HCL 10/28/2020 12: 00:00 AM EST tablet 10 TAKE 1 TABLET BY MOUTH EVERY 24 HOUR NEEDED FOR 10 DAYS TAKE 1 TABLET BY MOUTH EVERY 24 HOUR NEEDED FOR 10 DAYS SOLD: 11/01/2020 [facility] 20 mg 10/19/2020 12:00:00 AM EST [...] [Pred Forte] DAVID (Ben Hyde MD [facility]) Ketorolac Tromethamine 5 MG/ML Ophthalmi c Solution Ketorolac Tromethamine 0.5% Ophthalmic Solution Ketorolac Tromethamine 0.5% Ophthalmic Solution 2019 12:00:00 AM EST active ketorolac tromethamine 5 MG/ML Ophthalmic Solution DAVID (Ben Hyde MD [facility]) prednisolone acetate 10 MG/ML Ophthalmic Suspension [Pred Forte] Pred Forte 1% Ophthalmic Suspension Pred Forte 1% Ophthalmic Suspension 09/26/2020 12:00:0 0 AM EST aborted predniso lone acetate 10 MG/ML Ophthalmic Suspension [Pred Forte] DAVID (Ben Hyde MD [facility]) Ketorolac Tromethamine 5 MG/ML Ophthalmi c Solution Ketorolac Tromethamine 0.5% Ophthalmic Solution Ketorolac Tromethamine 0.5% Ophthalmic Solution 2019 12:00:00 AM EST aborted ketorolac tromethamine 5 MG/ML Ophthalmic Solution [place] (Ben Hyde MD [facility]) 1 % 09/26/2020 12:00:00 AM EST [...] EVERY DAY SOLD: 08/27/2020 [facility] Pen Gillett 3/16" 31G X 5 MM Pen Gillett 3/16" 31G X 5 MM 12:00:00 AM EST active Pen Gillett 3/16" 31G X 5 MM eCW1 ([facility]) Pen Gillett 3/16" 31G X 5 MM Pen Gillett 3/16" 31G X 5 MM 12:00:00 AM EST active Pen Gillett 3/16" 31G X 5 MM eCW1 ([facility]) Pen Gillett 3/16" 31G X 5 MM Pen Gillett 3/16" 31G X 5 MM 12:00:00 AM EST active Pen Gillett 3/16" 31G X 5 MM eCW1 ([facility]) Pen Gillett 3/16" 31G X 5 MM Pen Gillett 3/16" 31G X 5 MM 12:00:00 AM EST active Pen Gillett 3/16" 31G X 5 MM eCW1 ([facility]) Pen Gillett 3/16" 31G X 5 MM Pen Gillett 3/16" 31G X 5 MM 12:00:00 AM EST active Pen Gillett 3/16" 31G X 5 MM eCW1 ([facility]) Pen Gillett 3/16" 31G X 5 MM Pen Gillett 3/16" 31G X 5 MM 12:00:00 AM EST active Pen Gillett 3/16" 31G X 5 MM eCW1 ([facility]) Pen Gillett 3/16" 31G X 5 MM Pen Gillett 3/16" 31G X 5 MM 12:00:00 AM EST active Pen Gillett 3/16" 31G X 5 MM eCW1 ([facility]) Pen Gillett 3/16" 31G X 5 MM Pen Gillett 3/16" 31G X 5 MM 12:00:00 AM EST active Pen Gillett 3/16" 31G X 5 MM eCW1 ([facility]) Pen Gillett 3/16" 31G X 5 MM Pen Gillett 3/16" 31G X 5 MM 12:00:00 AM EST active Pen Gillett 3/16" 31G X 5 MM eCW1 ([facility]) Pen Gillett 3/16" 31G X 5 MM Pen Gillett 3/16" 31G X 5 MM 12:00:00 AM EST active Pen Gillett 3/16" 31G X 5 MM eCW1 ([facility]) Pen Gillett 3/16" 31G X 5 MM Pen Gillett 3/16" 31G X 5 MM 12:00:00 AM EST active Pen Gillett 3/16" 31G X 5 MM eCW1 ([facility]) Pen Gillett 3/16" 31G X 5 MM Pen Gillett 3/16" 31G X 5 MM 12:00:00 AM EST active Pen Gillett 3/16" 31G X 5 MM eCW1 ([facility]) Pen Gillett 3/16" 31G X 5 MM Pen Gillett 3/16" 31G X 5 MM 12:00:00 AM EST active Pen Gillett 3/16" 31G X 5 MM eCW1 ([facility]) Pen Gillett 3/16" 31G X 5 MM Pen Gillett 3/16" 31G X 5 MM 12:00:00 AM EST active Pen Gillett 3/16" 31G X 5 MM eCW1 ([facility]) Pen Gillett 3/16" 31G X 5 MM Pen Gillett 3/16" 31G X 5 MM 12:00:00 AM EST active Pen Gillett 3/16" 31G X 5 MM eCW1 ([facility]) Pen Gillett 3/16" 31G X 5 MM Pen Gillett 3/16" 31G X 5 MM 12:00:00 AM EST active Pen Gillett 3/16" 31G X 5 MM eCW1 ([facility]) Pen Gillett 3/16" 31G X 5 MM Pen Gillett 3/16" 31G X 5 MM 12:00:00 AM EST active Pen Gillett 3/16" 31G X 5 MM eCW1 ([facility]) Pen Gillett 3/16" 31G X 5 MM Pen Gillett 3/16" 31G X 5 MM 12:00:00 AM EST active Pen Gillett 3/16" 31G X 5 MM eCW1 ([facility]) moxifloxacin 5 MG/ML Ophthalmic Solution Moxifloxacin HCl 0.5% Ophthalmic Solution Moxifloxacin HCl 0.5% Ophthalmic Solution 08/22/2020 12:00:00 AM EST active moxifloxacin 5 MG/ML Oph thalmic Solution [facility] (Ben Hyde MD [facility]) BromSite 0.075% Ophthalmic Solution BromSite 0.075% Ophthalm ic Solution 08/22/2020 12:00:00 AM EST active bromfenac 0.75 MG/ML Ophthalmic Solution [Bromsite] DAVID (eBn Hyde MD [facility]) Inveltys 1% Ophthalmic Suspension Inveltys 1% Ophthalmic Sunita pension 08/22/2020 12:00:00 AM EST active loteprednol etabonate 10 MG/ML Ophthalmic Suspension [Inveltys] DAVID (Ben yHde MD [facility]) moxifloxacin 5 MG/ML Ophthalmic Solution 0.5 [...] EYE FOUR TIMES A DAY SOLD: 09/08/2020 [facility] 1 % 08/22/2020 12:00:00 AM EST drops,suspension 2 DAY OF SURGERY, REMOVE PATCH AND START ONE DROP IN THE RIGHT EYE TWO TIMES A DAY DAY OF SURGERY, REMOVE PATCH AND START ONE DROP IN THE RIGHT EYE TWO TIMES A DAY SOLD: 08/25/2020 [facility] 0.075 % 08/22/2020 12:00:00 AM EST drops 5 THREE DAYS PRIOR TO SURGERY , START ONE DROP IN THE RIGHT EYE TWO TIMES A DAY THREE DAYS PRIOR TO SURGERY , START ONE DROP IN THE RIGHT EYE TWO TIMES A DAY SOLD: 08/25/2020 [facility] 0.075 % 08/22/2020 12:00:00 AM EST drops 5 THREE DAYS PRIOR TO SURGERY , START ONE DROP IN THE RIGHT EYE TWO TIMES A DAY THREE DAYS PRIOR TO SURGERY , START ONE DROP IN THE RIGHT EYE TWO TIMES A DAY SOLD: 09/22/2020 [facility] 200 unit/mL (3 mL) 08/17/2020 12:00:00 AM EDT insulin pen 45 INJECT 320 UNITS SUBCUTANEOUSLY DAILY INJECT 320 UNITS SUBCUTANEOUSLY DAILY SOLD: 10/11/2020 [facility] Levofloxacin 250 MG Oral Tablet Levofloxacin 250 MG 08/15/2020 1 2:00:00 AM EDT 1.0 {tablet} suspended Levofloxa pa 250 MG eCW1 ([facility]) Levofloxacin 250 MG Oral Tablet Levofloxacin 250 MG 08/15/2020 1 2:00:00 AM EDT 1.0 {tablet} active Levofloxaci n 250 MG eCW1 ([facility]) Eszopiclone 3 MG Oral Tablet ESZOPICLONE 08/15/2020 12:00:00 AM EDT ta blet 30 TAKE ONE TABLET BY MOUTH AT BEDTIME MAXIMUM DAILY DOSE = 1 TAKE ONE TABLET BY MOUTH AT BEDTIME MAXIMUM DAILY DOSE = 1 SOLD: 08/16/2020 [facility] Levofloxacin 250 MG Oral Tablet Levofloxacin 250 MG 08/15/2020 1 2:00:00 AM EDT 1.0 {tablet} active Levofloxaci n 250 MG eCW1 ([facility]) Levofloxacin 250 MG Oral Tablet Levofloxacin 250 MG 08/15/2020 1 2:00:00 AM EDT 1.0 {tablet} active Levofloxaci n 250 MG eCW1 ([facility]) 250 mg 08/15/2020 12:00:00 AM EDT tablet 28 TAKE ONE TABLET BY MOUTH TWICE A DAY FOR 14 DAYS TAKE ONE TABLET BY MOUTH TWICE A DAY FOR 14 DAYS SOLD: 08/16/2020 [facility] Levofloxacin 250 MG Oral Tablet Levofloxacin 250 MG 08/15/2020 1 2:00:00 AM EDT 1.0 {tablet} suspended Levofloxa pa 250 MG eCW1 ([facility]) Levofloxacin 250 MG Oral Tablet Levofloxacin 250 MG 08/15/2020 1 2:00:00 AM EDT 1.0 {tablet} suspended Levofloxa pa 250 MG eCW1 ([facility]) Levofloxacin 250 MG Oral Tablet Levofloxacin 250 MG 08/15/2020 1 2:00:00 AM EDT 1.0 {tablet} suspended Levofloxa pa 250 MG eCW1 ([facility]) Levofloxacin 250 MG Oral Tablet Levofloxacin 250 MG 08/15/2020 1 2:00:00 AM EDT 1.0 {tablet} suspended Levofloxa pa 250 MG eCW1 ([facility]) Levofloxacin 250 MG Oral Tablet Levofloxacin 250 MG 08/15/2020 1 2:00:00 AM EDT 1.0 {tablet} suspended Levofloxa pa 250 MG eCW1 ([facility]) 10-325 mg 08/13/2020 12:00:00 AM EDT tablet [...] Suspension [Lotemax] DAVID (Ben Hyde MD [facility]) Cephalexin 500 MG Oral Capsule CEPHALEXIN 06/27/2020 12:00:00 AM EDT capsule 28 TAKE ONE CAPSULE BY MOUTH TWICE A DAY TAKE ONE CAPSULE BY [facility] TWICE A DAY SOLD: 06/27/2020 [facility] [...] 12:00:00 AM EDT active Wheelchair - eCW1 ([facility]) Wheelchair - Wheelchair - 04/28/2020 12:00:00 AM EDT active Wheelchair - eCW1 ([facility]) Wheelchair - Wheelchair - 04/28/2020 12:00:00 AM EDT active Wheelchair - eCW1 ([facility]) Wheelchair - Wheelchair - 04/28/2020 12:00:00 AM EDT active Wheelchair - eCW1 ([facility]) Wheelchair - Wheelchair - 04/28/2020 12:00:00 AM EDT active Wheelchair - eCW1 ([facility]) Wheelchair - Wheelchair - 04/28/2020 12:00:00 AM EDT active Wheelchair - eCW1 ([facility]) Wheelchair - Wheelchair - 04/28/2020 12:00:00 AM EDT active Wheelchair - eCW1 ([facility]) Wheelchair - Wheelchair - 04/28/2020 12:00:00 AM EDT active Wheelchair - eCW1 ([facility]) Wheelchair - Wheelchair - 04/28/2020 12:00:00 AM EDT active Wheelchair - eCW1 ([facility]) Wheelchair - Wheelchair - 04/28/2020 12:00:00 AM EDT active Wheelchair - eCW1 ([facility]) Wheelchair - Wheelchair - 04/28/2020 12:00:00 AM EDT active Wheelchair - eCW1 ([facility]) Wheelchair - Wheelchair - 04/28/2020 12:00:00 AM EDT active Wheelchair - eCW1 ([facility]) Wheelchair - Wheelchair - 04/28/2020 12:00:00 AM EDT active Wheelchair - eCW1 ([facility]) Wheelchair - Wheelchair - 04/28/2020 12:00:00 AM EDT active Wheelchair - eCW1 ([facility]) Wheelchair - Wheelchair - 04/28/2020 12:00:00 AM EDT active Wheelchair - eCW1 ([facility]) Wheelchair - Wheelchair - 04/28/2020 12:00:00 AM EDT active Wheelchair - eCW1 ([facility]) Wheelchair - Wheelchair - 04/28/2020 12:00:00 AM EDT active Wheelchair - eCW1 ([facility]) Wheelchair - Wheelchair - 04/28/2020 12:00:00 AM EDT active Wheelchair - eCW1 ([facility]) Wheelchair - Wheelchair - 04/28/2020 12:00:00 AM EDT active Wheelchair - eCW1 ([facility]) Wheelchair - Wheelchair - 04/28/2020 12:00:00 AM EDT active Wheelchair - eCW1 ([facility]) Wheelchair - Wheelchair - 04/28/2020 12:00:00 AM EDT active Wheelchair - eCW1 ([facility]) Wheelchair - Wheelchair - 04/28/2020 12:00:00 AM EDT active Wheelchair - eCW1 ([facility]) Wheelchair - Wheelchair - 04/28/2020 12:00:00 AM EDT active Wheelchair - eCW1 ([facility]) Wheelchair - Wheelchair - 04/28/2020 12:00:00 AM EDT active Wheelchair - eCW1 ([facility]) Wheelchair - Wheelchair - 04/28/2020 12:00:00 AM EDT active Wheelchair - eCW1 ([facility]) Wheelchair - Wheelchair - 04/28/2020 12:00:00 AM EDT active Wheelchair - eCW1 ([facility]) Wheelchair - Wheelchair - 04/28/2020 12:00:00 AM EDT active Wheelchair - eCW1 ([facility]) Wheelchair - Wheelchair - 04/28/2020 12:00:00 AM EDT active Wheelchair - eCW1 ([facility]) 3 mg 04/24/2020 12:00:00 AM EDT tablet [...] 04/14/2020 12:00:00 AM EDT ORAL active MED[facility] ([facility]) Amoxicillin 500 MG / Clavulanate 125 MG Oral Tablet [Augment in] Augmentin 04/14/2020 12:00:00 AM EDT ORAL active [facility] ([facility]) Cephalexin 500 MG Oral [...] DAILY DOSE = 8 TABLETS SOLD: 03/21/2020 [facility] 20 mg 03/19/2020 12:00:00 AM [...] 03/19/2020 12:00:00 AM EDT ORAL completed [facility] ([facility]) Acetaminophen 325 MG / Oxycodone Hydrochloride 5 MG Or al Tablet Oxycodone-Acetaminophen 03/18/2020 12:00:00 AM EDT ORAL completed [facility] ([facility]) 3 mg 02/28/2020 12:00:00 [...] DAILY DOSE = 2 CAPSULES SOLD: 02/22/2020 [facility] 20 mg 02/22/2020 12:00:00 AM EDT [...] 2:00:00 AM EST active 1 tablet eCW1 ([facility]) 0.05 % 12/12/2019 12:00:00 AM EST dropperette [...] Suspension [Restasis] DAVID (Ben Hyde MD [facility]) FreeStyle Dwight 14 Day Sensor - FreeStyle Dwight 14 Day Senso r 12/10/2019 12:00:00 AM EST active FreeStyl e Dwight 14 Day Sensor - eCW1 ([facility]) FreeStyle Dwight 14 Day Sensor - FreeStyle Dwight 14 Day Senso r 12/10/2019 12:00:00 AM EST active FreeStyl e Dwight 14 Day Sensor - eCW1 ([facility]) FreeStyle Dwight 14 Day Sensor - FreeStyle Dwight 14 Day Senso r 12/10/2019 12:00:00 AM EST active FreeStyl e Dwight 14 Day Sensor - eCW1 ([facility]) FreeStyle Dwight 14 Day Sensor - FreeStyle Dwight 14 Day Senso r 12/10/2019 12:00:00 AM EST active FreeStyl e Dwight 14 Day Sensor - eCW1 ([facility]) FreeStyle Dwight 14 Day Sensor - FreeStyle Dwight 14 Day Senso r 12/10/2019 12:00:00 AM EST active as direc tracy eCW1 ([facility]) FreeStyle Dwight 14 Day Sensor - FreeStyle Diwght 14 Day Senso r 12/10/2019 12:00:00 AM EST active FreeStyl e Dwight 14 Day Sensor - eCW1 ([facility]) FreeStyle Dwight 14 Day Sensor - FreeStyle Dwight 14 Day Senso r 12/10/2019 12:00:00 AM EST active FreeStyl e Dwight 14 Day Sensor - eCW1 ([facility]) FreeStyle Dwight 14 Day Sensor - FreeStyle Dwight 14 Day Senso r 12/10/2019 12:00:00 AM EST active FreeStyl e Dwight 14 Day Sensor - eCW1 ([facility]) FreeStyle Dwight 14 Day Sensor - FreeStyle Dwight 14 Day Senso r 12/10/2019 12:00:00 AM EST active FreeStyl e Dwight 14 Day Sensor - eCW1 ([facility]) FreeStyle Dwight 14 Day Sensor - FreeStyle Dwight 14 Day Senso r 12/10/2019 12:00:00 AM EST active FreeStyl e Dwight 14 Day Sensor - eCW1 ([facility]) FreeStyle Dwight 14 Day Sensor - FreeStyle Dwight 14 Day Senso r 12/10/2019 12:00:00 AM EST active FreeStyl e Dwight 14 Day Sensor - eCW1 ([facility]) FreeStyle Dwight 14 Day Sensor - FreeStyle Dwight 14 Day Senso r 12/10/2019 12:00:00 AM EST active FreeStyl e Dwight 14 Day Sensor - eCW1 ([facility]) FreeStyle Dwight 14 Day Sensor - FreeStyle Dwight 14 Day Senso r 12/10/2019 12:00:00 AM EST active FreeStyl e Dwight 14 Day Sensor - eCW1 ([facility]) FreeStyle Dwight 14 Day Sensor - FreeStyle Dwight 14 Day Senso r 12/10/2019 12:00:00 AM EST active FreeStyl e Dwight 14 Day Sensor - eCW1 ([facility]) FreeStyle Dwight 14 Day Sensor - FreeStyle Dwight 14 Day Senso r 12/10/2019 12:00:00 AM EST active FreeStyl e Dwight 14 Day Sensor - eCW1 ([facility]) FreeStyle Dwight 14 Day Sensor - FreeStyle Dwight 14 Day Senso r 12/10/2019 12:00:00 AM EST active FreeStyl e Dwight 14 Day Sensor - eCW1 ([facility]) FreeStyle Dwight 14 Day Sensor - FreeStyle Dwight 14 Day Senso r 12/10/2019 12:00:00 AM EST active FreeStyl e Dwight 14 Day Sensor - eCW1 ([facility]) FreeStyle Dwight 14 Day Sensor - FreeStyle Dwight 14 Day Senso r 12/10/2019 12:00:00 AM EST active FreeStyl e Dwight 14 Day Sensor - eCW1 ([facility]) FreeStyle Dwight 14 Day Sensor - FreeStyle Dwight 14 Day Senso r 12/10/2019 12:00:00 AM EST active FreeStyl e Dwight 14 Day Sensor - eCW1 ([facility]) FreeStyle Dwight 14 Day Sensor - FreeStyle Dwight 14 Day Senso r 12/10/2019 12:00:00 AM EST active FreeStyl e Dwight 14 Day Sensor - eCW1 ([facility]) FreeStyle Dwight 14 Day Sensor - FreeStyle Dwight 14 Day Senso r 12/10/2019 12:00:00 AM EST active FreeStyl e Dwight 14 Day Sensor - eCW1 ([facility]) FreeStyle Dwight 14 Day Sensor - FreeStyle Dwight 14 Day Senso r 12/10/2019 12:00:00 AM EST active as direc tracy eCW1 ([facility]) FreeStyle Dwight 14 Day Sensor - FreeStyle Dwight 14 Day Senso r 12/10/2019 12:00:00 AM EST active as direc tracy eCW1 ([facility]) FreeStyle Dwight 14 Day Sensor - FreeStyle Dwight 14 Day Senso r 12/10/2019 12:00:00 AM EST active FreeStyl e Dwight 14 Day Sensor - eCW1 ([facility]) FreeStyle Dwight 14 Day Sensor - FreeStyle Dwight 14 Day Senso r 12/10/2019 12:00:00 AM EST active as direc tracy eCW1 ([facility]) FreeStyle Dwight 14 Day Sensor - FreeStyle Dwight 14 Day Senso r 12/10/2019 12:00:00 AM EST active FreeStyl e Dwight 14 Day Sensor - eCW1 ([facility]) FreeStyle Dwight 14 Day Sensor - FreeStyle Wdight 14 Day Senso r 12/10/2019 12:00:00 AM EST active FreeStyl e Dwight 14 Day Sensor - eCW1 ([facility]) FreeStyle Dwight 14 Day Sensor - FreeStyle Dwight 14 Day Senso r 12/10/2019 12:00:00 AM EST active FreeStyl e Dwight 14 Day Sensor - eCW1 ([facility]) FreeStyle Dwight 14 Day Sensor - FreeStyle Dwight 14 Day Senso r - 12/10/2019 12:00:00 AM EST active FreeStyl e Dwight 14 Day Sensor - eCW1 ([facility]) FreeStyle Dwight 14 Day Sensor - FreeStyle Dwight 14 Day Senso r - 12/10/2019 12:00:00 AM EST active FreeStyl e Dwight 14 Day Sensor - eCW1 ([facility]) FreeStyle Dwight 14 Day Sensor - FreeStyle Dwight 14 Day Senso r 12/10/2019 12:00:00 AM EST active FreeStyl e Dwight 14 Day Sensor - eCW1 ([facility]) FreeStyle Dwight 14 Day Sensor - FreeStyle Dwight 14 Day Senso r 12/10/2019 12:00:00 AM EST active FreeStyl e Dwight 14 Day Sensor - eCW1 (Formerly [facility]) FreeStyle Dwight 14 Day Sensor - FreeStyle Dwight 14 Day Senso r 12/10/2019 12:00:00 AM EST active FreeStyl e Dwight 14 Day Sensor - eCW1 (Formerly [facility]) FreeStyle Dwight 14 Day Sensor - FreeStyle Dwight 14 Day Senso r 12/10/2019 12:00:00 AM EST active FreeStyl e Dwight 14 Day Sensor - eCW1 (Formerly [facility]) 3 mg 12/04/2019 12:00:00 AM EST tablet [...] 12:00:00 AM EST active 1 tablet eCW1 (Formerly [facility]) Doxycycline Monohydrate 100 MG Oral Capsule Doxycycline [place] hydrate 100 MG 11/12/2019 12:00:00 AM EST active 1 capsule eCW1 (Formerly [facility]) Amlodipine 2.5 MG Oral Tablet AmLODIPine Besylate 2.5 MG AmLODIPine Besylate 2.5 MG 11/12/2019 12:00:00 AM EST 1.0 {tablet} activ e AmLODIPine Besylate 2.5 MG eCW1 (Formerly [facility]) Amlodipine 2.5 MG Oral Tablet AmLODIPine Besylate 2.5 MG AmLODIPine Besylate 2.5 MG 11/12/2019 12:00:00 AM EST 1.0 {tablet} suspe nded AmLODIPine Besylate 2.5 MG eCW1 (Formerly [facility]) 2.5 mg 11/12/2019 12:00:00 AM EST tablet 30 TAKE ONE TABLET BY MOUTH EVERY DAY TAKE ONE TABLET BY MOUTH EVERY DAY SOLD: 11/13/2019 [facility] Amlodipine 2.5 MG Oral Tablet AmLODIPine Besylate 2.5 MG AmLODIPine Besylate 2.5 MG 11/12/2019 12:00:00 AM EST active 1 tablet eCW1 (Formerly [facility]) Amlodipine 2.5 MG Oral Tablet AmLODIPine Besylate 2.5 MG AmLODIPine Besylate 2.5 MG 11/12/2019 12:00:00 AM EST active 1 tablet eCW1 (Formerly [facility]) Amlodipine 2.5 MG Oral Tablet AmLODIPine Besylate 2.5 MG AmLODIPine Besylate 2.5 MG 11/12/2019 12:00:00 AM EST active 1 tablet eCW1 (Formerly [facility]) Amlodipine 2.5 MG Oral Tablet AmLODIPine Besylate 2.5 MG AmLODIPine Besylate 2.5 MG 11/12/2019 12:00:00 AM EST 1.0 {tablet} suspe nded AmLODIPine Besylate 2.5 MG eCW1 (Formerly [facility]) Amlodipine 2.5 MG Oral Tablet AmLODIPine Besylate 2.5 MG AmLODIPine Besylate 2.5 MG 11/12/2019 12:00:00 AM EST 1.0 {tablet} activ e AmLODIPine Besylate 2.5 MG eCW1 (Formerly [facility]) Amlodipine 2.5 MG Oral Tablet AmLODIPine Besylate 2.5 MG AmLODIPine Besylate 2.5 MG 11/12/2019 12:00:00 AM EST 1.0 {tablet} activ e AmLODIPine Besylate 2.5 MG eCW1 (Formerly [facility]) Amlodipine 2.5 MG Oral Tablet AmLODIPine Besylate 2.5 MG AmLODIPine Besylate 2.5 MG 11/12/2019 12:00:00 AM EST 1.0 {tablet} activ e AmLODIPine Besylate 2.5 MG eCW1 (Formerly [facility]) Amlodipine 2.5 MG Oral Tablet AmLODIPine Besylate 2.5 MG AmLODIPine Besylate 2.5 MG 11/12/2019 12:00:00 AM EST 1.0 {tablet} activ e AmLODIPine Besylate 2.5 MG eCW1 (Formerly [facility]) Amlodipine 2.5 MG Oral Tablet AmLODIPine Besylate 2.5 MG AmLODIPine Besylate 2.5 MG 11/12/2019 12:00:00 AM EST 1.0 {tablet} activ e AmLODIPine Besylate 2.5 MG eCW1 (Formerly [facility]) Amlodipine 2.5 MG Oral Tablet AmLODIPine Besylate 2.5 MG AmLODIPine Besylate 2.5 MG 11/12/2019 12:00:00 AM EST 1.0 {tablet} suspe nded AmLODIPine Besylate 2.5 MG eCW1 (Formerly [facility]) Amlodipine 2.5 MG Oral Tablet AmLODIPine Besylate 2.5 MG AmLODIPine Besylate 2.5 MG 11/12/2019 12:00:00 AM EST 1.0 {tablet} activ e AmLODIPine Besylate 2.5 MG eCW1 (Formerly [facility]) 100 mg 11/12/2019 12:00:00 AM EST capsule 20 TAKE ONE CAPSULE BY MOUTH TWICE A DAY FOR 10 DAYS TAKE ONE CAPSULE BY MOUTH TWICE A DAY FOR 10 DAYS SOLD : 11/13/2019 [facility] Amlodipine 2.5 MG Oral Tablet AmLODIPine Besylate 2.5 MG AmLODIPine Besylate 2.5 MG 11/12/2019 12:00:00 AM EST 1.0 {tablet} suspe nded AmLODIPine Besylate 2.5 MG eCW1 (Formerly [facility]) Amlodipine 2.5 MG Oral Tablet AmLODIPine Besylate 2.5 MG AmLODIPine Besylate 2.5 MG 11/12/2019 12:00:00 AM EST 1.0 {tablet} activ e AmLODIPine Besylate 2.5 MG eCW1 (Formerly [facility]) Doxycycline Monohydrate 100 MG Oral Capsule Doxycycline [place] hydrate 100 MG 11/12/2019 12:00:00 AM EST active 1 capsule eCW1 (Formerly [facility]) Amlodipine 2.5 MG Oral Tablet AmLODIPine Besylate 2.5 MG AmLODIPine Besylate 2.5 MG 11/12/2019 12:00:00 AM EST 1.0 {tablet} activ e AmLODIPine Besylate 2.5 MG eCW1 (Formerly [facility]) Doxycycline Monohydrate 100 MG Oral Capsule Doxycycline [place] hydrate 100 MG 11/12/2019 12:00:00 AM EST active 1 capsule eCW1 ([facility]ly [facility]) Amlodipine 2.5 MG Oral Tablet AmLODIPine Besylate 2.5 MG AmLODIPine Besylate 2.5 MG 11/12/2019 12:00:00 AM EST active 1 tablet eCW1 ([facility]ly [facility]) Amlodipine 2.5 MG Oral Tablet AmLODIPine Besylate 2.5 MG AmLODIPine Besylate 2.5 MG 11/12/2019 12:00:00 AM EST 1.0 {tablet} activ e AmLODIPine Besylate 2.5 MG eCW1 ([facility]ly [facility]) Amlodipine 2.5 MG Oral Tablet AmLODIPine Besylate 2.5 MG AmLODIPine Besylate 2.5 MG 11/12/2019 12:00:00 AM EST 1.0 {tablet} suspe nded AmLODIPine Besylate 2.5 MG eCW1 ([facility]ly [facility]) Amlodipine 2.5 MG Oral Tablet AmLODIPine Besylate 2.5 MG AmLODIPine Besylate 2.5 MG 11/12/2019 12:00:00 AM EST 1.0 {tablet} suspe nded AmLODIPine Besylate 2.5 MG eCW1 (Formerly [facility]) Amlodipine 2.5 MG Oral Tablet AmLODIPine Besylate 2.5 MG AmLODIPine Besylate 2.5 MG 11/12/2019 12:00:00 AM EST active 1 tablet eCW1 ([facility]ly [facility]) Amlodipine 2.5 MG Oral Tablet AmLODIPine Besylate 2.5 MG AmLODIPine Besylate 2.5 MG 11/12/2019 12:00:00 AM EST 1.0 {tablet} activ e AmLODIPine Besylate 2.5 MG eCW1 ([facility]ly [facility]) Amlodipine 2.5 MG Oral Tablet AmLODIPine Besylate 2.5 MG AmLODIPine Besylate 2.5 MG 11/12/2019 12:00:00 AM EST 1.0 {tablet} activ e AmLODIPine Besylate 2.5 MG eCW1 (Formerly [facility]) Amlodipine 2.5 MG Oral Tablet AmLODIPine Besylate 2.5 MG AmLODIPine Besylate 2.5 MG 11/12/2019 12:00:00 AM EST 1.0 {tablet} activ e AmLODIPine Besylate 2.5 MG eCW1 (Formerly [facility]) 5 mg 11/07/2019 12:00:00 AM EST tablet [...] Collagenase 10/16/2019 12:00:00 AM EST active MEDENT ([facility]) 10-325 mg 10/03/2019 12:00:00 [...] Gel [Lotemax] DAVID (Ben Hyde MD [facility]) 500 unit/mL (3 mL) 06/27/2019 12:00:00 [...] REPLACE SENSOR EVERY 14 DAYS SOLD: 09/28/2019 [facility] 10 mg 04/12/2019 12:00:00 AM EDT [...] Gel [Lotemax] DAVID (Ben Hyde MD [facility]) Ofloxacin 3 MG/ML Ophthalmic Solution Ofloxacin 0.3% O phthalmic Solution Ofloxacin 0.3% Ophthalmic Solution 05/29/2018 12:00:00 AM EDT aborted ofloxacin 3 MG/ML Ophthalmic Solution GR EENWAY (Ben Hyde MD [facility]) Insurance Providers Payer name Policy type / Coverage type Policy ID Covered constitution party ID Covered constitution party's relationship to ervin Policy Ervin Plan Information [facility] [id number] SP [id number] R F [id number] SPOUSE [id number] UMR F [id number] SPOUSE [id number] [facility] [id number] SP [id number] UMR O [id number] S [id number] [employer] [place] Other 0 Family Dep endent Jayashree [place] 0 [employer] [place] Other 0 Family Dep endent Jayashree Heydi 0 [employer] [place] Other 0 Family Dep endent Jayashree [place] 0 ALLSTATE INS CO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 Data Lucy rce(s) Supporting Document(s) Hemoglobin A1c 12.5 % MEDENT ([facility]) REFERENCE RANGES: 4.5-5.6% NORMAL 5.7-6.4% SUGGESTS IMPAIRED GLUCOSE META BOLISM >= 6.5% ABNORMAL Estimated Average Glucose 312 mg/dL 60-110 MEDENT ([facility]) ID Date Data Source CBC with Differential 10/01/2019 12:00:00 AM EST eCW1 ([facility]) Name Value Range Interpretation Code Description Data Lucy rce(s) Supporting Document(s) 6.6 4.0-10.0 WHITE BLOOD COUNT eCW1 [facility] 33.8 36.0-47.0 HEMATOCRIT eCW1 ([facility]) 11.6 12.0-15.5 HEMOGLOBIN eCW1 ([facility]) 4.06 4.00-5.40 RED BLOOD COUNT eCW1 ([facility]) 83.3 80.0-96.0 MEAN CORPUSCULAR VOLUME e CW1 ([facility]) 34.3 32.0-36.5 MEAN CORPUSCULAR HGB CONC eCW1 ([facility]) 14.1 11.5-14.5 RED CELL DISTRIBUTION WID TH eCW1 ([facility]) 28.6 27.0-33.0 MEAN CORPUSCULAR HEMOGLOB IN eCW1 ([facility]) 230 150-450 PLATELET COUNT, AUTOMATED eCW1 ([facility]) 32.5 24.0-44.0 LYMPH % eCW1 ([facility]) 7.4 0.0-5.0 MONO % eCW1 ([facility]) 2.1 0.0-3.0 EOS % eCW1 ([facility]) 56.3 36.0-66.0 NEUTROPHILS % eCW1 ([facility]) 3.7 1.5-8.5 NEUTROPHILS # eCW1 ([facility]) 2.2 1.5-5.0 LYMPH # eCW1 ([facility]) 0.5 0.0-0.8 MONO # eCW1 ([facility]) 0.6 0.0-1.0 BASO % eCW1 ([facility]) 0.1 0.0-0.5 EOS # eCW1 ([facility]) 0.0 0.0-0.2 BASO # eCW1 ([facility]) Procedure Social History Code Duration Value Status Description Data Source(s ) Smoking 11/07/2020 12:00:00 AM EST Former Smoker completed Former Smoker eCW1 ([facility]) Smoking 11/03/2020 12:00:00 AM EST Former Smoker completed Former Smoker eCW1 ([facility]) Smoking 11/03/2020 12:00:00 AM EST Former Smoker completed Former Smoker eCW1 ([facility]) Smoking 10/31/2020 12:00:00 AM EST Former Smoker completed Former Smoker eCW1 ([facility]) Smoking 10/24/2020 12:00:00 AM EST Former Smoker completed Former Smoker eCW1 ([facility]) Smoking 10/24/2020 12:00:00 AM EST Former Smoker completed Former Smoker eCW1 ([facility]) Smoking 10/24/2020 12:00:00 AM EST Former Smoker completed Former Smoker eCW1 ([facility]) Smoking 10/13/2020 12:39:14 PM EST Ex-smoker (finding) complet ed Ex-smoker (finding) DAVID (Ben Hyde MD [facility]) Smoking 09/26/2020 10:12:32 AM EST Ex-smoker (finding) complet ed Ex-smoker (finding) DAVID (Ben Hyde MD [facility]) Smoking 09/22/2020 12:00:00 AM EST Former Smoker completed Former Smoker eCW1 ([facility]) Smoking 09/22/2020 12:00:00 AM EST Former Smoker completed Former Smoker eCW1 ([facility]) Smoking 09/22/2020 12:00:00 AM EST Former Smoker completed Former Smoker eCW1 ([facility]) Smoking 09/22/2020 12:00:00 AM EST Former Smoker completed Former Smoker eCW1 ([facility]) Smoking 09/15/2020 12:00:00 AM EST Former Smoker completed Former Smoker eCW1 ([facility]) Smoking 09/15/2020 12:00:00 AM EST Former Smoker completed Former Smoker eCW1 ([facility]) Smoking 09/15/2020 12:00:00 AM EST Former Smoker completed Former Smoker eCW1 ([facility]) Smoking 09/15/2020 12:00:00 AM EST Former Smoker completed Former Smoker eCW1 ([facility]) Smoking 09/08/2020 12:00:00 AM EST Former Smoker completed Former Smoker eCW1 ([facility]) Smoking 09/08/2020 12:00:00 AM EST Former Smoker completed Former Smoker eCW1 ([facility]) Smoking 09/08/2020 12:00:00 AM EST Former Smoker completed Former Smoker eCW1 ([facility]) Smoking 08/29/2020 12:00:00 AM EST Current Smoker completed Curre nt Smoker eCW1 ([facility]) Smoking 08/29/2020 12:00:00 AM EST Current Smoker completed Curre nt Smoker eCW1 ([facility]) Smoking 08/29/2020 12:00:00 AM EST Current Smoker completed Curre nt Smoker eCW1 ([facility]) Smoking 08/26/2020 12:00:00 AM EST Current Smoker completed Curre nt Smoker eCW1 ([facility]) Smoking 08/18/2020 12:00:00 AM EST Current Smoker completed Curre nt Smoker eCW1 ([facility]) Smoking 08/18/2020 12:00:00 AM EST Current Smoker completed Curre nt Smoker eCW1 ([facility]) Smoking 07/22/2020 12:00:00 AM EDT Current Smoker completed Curre nt Smoker eCW1 ([facility]) Smoking 07/22/2020 12:00:00 AM EDT Current Smoker completed Curre nt Smoker eCW1 ([facility]) Smoking 07/22/2020 12:00:00 AM EDT Current Smoker completed Curre nt Smoker eCW1 ([facility]) Smoking 07/09/2020 11:00:40 AM EDT Ex-smoker (finding) complet ed Ex-smoker (finding) DAVID (Ben Hyde MD [facility]) Smoking 04/29/2020 12:00:00 AM EDT Current Smoker completed Curre nt Smoker eCW1 ([facility]) Smoking 04/29/2020 12:00:00 AM EDT Current Smoker completed Curre nt Smoker eCW1 ([facility]) Smoking 04/29/2020 12:00:00 AM EDT Current Smoker completed Curre nt Smoker eCW1 ([facility]) Smoking 04/29/2020 12:00:00 AM EDT Current Smoker completed Curre nt Smoker eCW1 ([facility]) Smoking 03/19/2020 12:00:00 AM EDT Current Smoker completed Curre nt Smoker eCW1 ([facility]) Smoking 03/19/2020 12:00:00 AM EDT Current Smoker completed Curre nt Smoker eCW1 ([facility]) Smoking 03/19/2020 12:00:00 AM EDT Current Smoker completed Curre nt Smoker eCW1 ([facility]) Smoking 10/24/2019 09:11:30 AM EST Ex-smoker (finding) complet ed Ex-smoker (finding) DAVID (Ben Hyde MD [facility]) Vital Signs ID Date Data Source UNK Name Value Range Interpretation Code Description Data Source(s) Diastolic blood pressure 78 mm[Hg] 78 mm[Hg] eCW1 ([facility]) Systolic blood pressure 122 mm[Hg] 122 mm[Hg] e CW1 ([facility]) Body temperature 96.4 [degF] 96.4 [degF] eCW1 ( [facility]) Respiratory rate 18 /min 18 /min eCW1 ([facility]) Heart rate 104 /min 104 /min eCW1 ([facility]) Body mass index (BMI) [Ratio] 36.3 kg/m2 36.3 k g/m2 eCW1 ([facility]) Body height 70 [in_i] 70 [in_i] eCW1 ([facility]) Body weight 114.76 kg 114.76 kg eCW1 ([facility]) Body weight 253 [lb_av] 253 [lb_av] eCW1 ([facility]) Diastolic blood pressure 81 mm[Hg] 81 mm[Hg] eCW1 ([facility]) Systolic blood pressure 148 mm[Hg] 148 mm[Hg] e CW1 ([facility]) Body temperature 96.5 [degF] 96.5 [degF] eCW1 ( [facility]) Respiratory rate 19 /min 19 /min eCW1 ([facility]) Heart rate 91 /min 91 /min eCW1 ([facility]) Body mass index (BMI) [Ratio] 37.73 kg/m2 37.73 kg/m2 eCW1 ([facility]) Body height 70 [in_i] 70 [in_i] eCW1 ([facility]) Body weight kg eCW1 ([facility]) Body weight 263 [lb_av] 263 [lb_av] eCW1 ([facility]) Diastolic blood pressure 77 mm[Hg] 77 mm[Hg] eCW1 ([facility]) Systolic blood pressure 128 mm[Hg] 128 mm[Hg] e CW1 ([facility]) Body temperature 96.5 [degF] 96.5 [degF] eCW1 ( [facility]) Respiratory rate 19 /min 19 /min eCW1 ([facility]) Heart rate 83 /min 83 /min eCW1 ([facility]) Body mass index (BMI) [Ratio] 37.73 kg/m2 37.73 kg/m2 eCW1 ([facility]) Body height 70 [in_i] 70 [in_i] eCW1 ([facility]) Body weight kg eCW1 ([facility]) Body weight 263 [lb_av] 263 [lb_av] eCW1 ([facility]) Diastolic blood pressure 70 mm[Hg] 70 mm[Hg] eCW1 ([facility]) Systolic blood pressure 130 mm[Hg] 130 mm[Hg] e CW1 ([facility]) Body temperature 96.1 [degF] 96.1 [degF] eCW1 ( [facility]) Respiratory rate 18 /min 18 /min eCW1 ([facility]) Heart rate 96 /min 96 /min eCW1 ([facility]) Body mass index (BMI) [Ratio] 37.73 kg/m2 37.73 kg/m2 eCW1 ([facility]) Body height 70 [in_i] 70 [in_i] eCW1 ([facility]) Body weight 263 [lb_av] 263 [lb_av] eCW1 ([facility]) Diastolic blood pressure 62 mm[Hg] 62 mm[Hg] eCW1 ([facility]) Systolic blood pressure 143 mm[Hg] 143 mm[Hg] e CW1 ([facility]) Body temperature 96.5 [degF] 96.5 [degF] eCW1 ( [facility]) Respiratory rate 17 /min 17 /min eCW1 ([facility]) Heart rate 94 /min 94 /min eCW1 ([facility]) Body mass index (BMI) [Ratio] 38.02 kg/m2 38.02 kg/m2 eCW1 ([facility]) Body height 70 [in_i] 70 [in_i] eCW1 ([facility]) Body weight kg eCW1 ([facility]) Body weight 265 [lb_av] 265 [lb_av] eCW1 ([facility]) Diastolic blood pressure mm[Hg] eCW1 ([facility]) Systolic blood pressure 198 mm[Hg] 198 mm[Hg] e CW1 ([facility]) Body temperature 97.7 [degF] 97.7 [degF] eCW1 ( [facility]) Respiratory rate 18 /min 18 /min eCW1 ([facility]) Heart rate 91 /min 91 /min eCW1 ([facility]) Body mass index (BMI) [Ratio] 38.02 kg/m2 38.02 kg/m2 eCW1 ([facility]) Body height 70 [in_i] 70 [in_i] eCW1 ([facility]) Body weight 265 [lb_av] 265 [lb_av] eCW1 ([facility]) Diastolic blood pressure 68 mm[Hg] 68 mm[Hg] eCW1 ([facility]) Systolic blood pressure 138 mm[Hg] 138 mm[Hg] e CW1 ([facility]) Respiratory rate 18 /min 18 /min eCW1 ([facility]) Heart rate 86 /min 86 /min eCW1 ([facility]) Body mass index (BMI) [Ratio] 38.31 kg/m2 38.31 kg/m2 eCW1 ([facility]) Body height 70 [in_i] 70 [in_i] eCW1 ([facility]) Body weight 121.11 kg 121.11 kg W1 ([facility]) Body weight 267 [lb_av] 267 [lb_av] eCW1 ([facility]) Diastolic blood pressure 77 mm[Hg] 77 mm[Hg] eCW1 ([facility]) Systolic blood pressure 163 mm[Hg] 163 mm[Hg] e CW1 ([facility]) Body temperature 97.8 [degF] 97.8 [degF] eCW1 ( [facility]) Respiratory rate 16 /min 16 /min eCW1 ([facility]) Heart rate 85 /min 85 /min eCW1 ([facility]) Body mass index (BMI) [Ratio] 38.16 kg/m2 38.16 kg/m2 eCW1 ([facility]) Body height 70 [in_i] 70 [in_i] eCW1 ([facility]) Body weight 266 [lb_av] 266 [lb_av] eCW1 ([facility]) Diastolic blood pressure 74 mm[Hg] 74 mm[Hg] eCW1 ([facility]) Systolic blood pressure 122 mm[Hg] 122 mm[Hg] e CW1 ([facility]) Body temperature 97.7 [degF] 97.7 [degF] eCW1 ( [facility]) Respiratory rate 18 /min 18 /min eCW1 ([facility]) Heart rate 93 /min 93 /min eCW1 ([facility]) Body mass index (BMI) [Ratio] 38.16 kg/m2 38.16 kg/m2 eCW1 ([facility]) Body height 70 [in_i] 70 [in_i] eCW1 ([facility]) Body weight 266 [lb_av] 266 [lb_av] eCW1 ([facility]) Diastolic blood pressure 78 mm[Hg] 78 mm[Hg] eCW1 ([facility]) Systolic blood pressure 156 mm[Hg] 156 mm[Hg] e CW1 ([facility]) Body temperature 94.5 [degF] 94.5 [degF] eCW1 ( [facility]) Respiratory rate 18 /min 18 /min eCW1 ([facility]) Heart rate 94 /min 94 /min eCW1 ([facility]) Body mass index (BMI) [Ratio] 36.58 kg/m2 36.58 kg/m2 eCW1 ([facility]) Body height 70 [in_i] 70 [in_i] eCW1 ([facility]) Body weight kg eCW1 ([facility]) Body weight 255 [lb_av] 255 [lb_av] eCW1 ([facility]) Diastolic blood pressure 78 mm[Hg] 78 mm[Hg] eCW1 ([facility]) Systolic blood pressure 137 mm[Hg] 137 mm[Hg] e CW1 ([facility]) Body temperature 98.7 [degF] 98.7 [degF] eCW1 ( [facility] [facility] Respiratory rate 18 /min 18 /min eCW1 ([facility]) Heart rate 101 /min 101 /min eCW1 ([facility]) Body mass index (BMI) [Ratio] 36.58 kg/m2 36.58 kg/m2 eCW1 ([facility]) Body height 70 [in_i] 70 [in_i] eCW1 ([facility]) Body weight 115.67 kg 115.67 kg eCW1 ([facility]) Body weight 255.0 [lb_av] 255.0 [lb_av] eCW1 ([facility]) Diastolic blood pressure 80 mm[Hg] 80 mm[Hg] eCW1 ([facility]) Systolic blood pressure 156 mm[Hg] 156 mm[Hg] e CW1 ([facility]) Body temperature 96.9 [degF] 96.9 [degF] eCW1 ( [facility]) Respiratory rate 20 /min 20 /min eCW1 ([facility]) Heart rate 124 /min 124 /min eCW1 ([facility]) Body mass index (BMI) [Ratio] 35.06 kg/m2 35.06 kg/m2 W1 ([facility]) Body height 70 [in_i] 70 [in_i] eCW1 ([facility]) Body weight 244.4 [lb_av] 244.4 [lb_av] eCW1 ([facility]) Body mass index (BMI) [Ratio] 34.9 kg/m2 34.9 k g/m2 MEDENT ([facility]) Body weight 243.00 [lb_av] 243.00 [lb_av] MEDEN T ([facility]) Body height 70 [in_i] 70 [in_i] MEDENT ([facility]) 5'10" Body temperature 98.3 [degF] 98.3 [degF] MEDENT ([facility] ) Diastolic blood pressure 84 mm[Hg] 84 mm[Hg] eCW1 ([facility]) Systolic blood pressure 173 mm[Hg] 173 mm[Hg] e CW1 ([facility]) Body temperature 97.0 [degF] 97.0 [degF] eCW1 ( [facility]) Respiratory rate 18 /min 18 /min eCW1 ([facility]) Heart rate 107 /min 107 /min eCW1 ([facility]) Body mass index (BMI) [Ratio] 36.58 kg/m2 36.58 kg/m2 eCW1 ([facility]) Body height 70 [in_i] 70 [in_i] eCW1 ([facility]) Body weight 255.0 [lb_av] 255.0 [lb_av] eCW1 ([facility]) Body temperature 98.4 [degF] 98.4 [degF] MEDENT ([facility]) Diastolic blood pressure 80 mm[Hg] 80 mm[Hg] eCW1 ([facility]) Systolic blood pressure 150 mm[Hg] 150 mm[Hg] e CW1 ([facility]) Body temperature 96.8 [degF] 96.8 [degF] eCW1 ( [facility]) Respiratory rate 18 /min 18 /min eCW1 ([facility]) Heart rate 91 /min 91 /min eCW1 ([facility]) Body mass index (BMI) [Ratio] 37.45 kg/m2 37.45 kg/m2 eCW1 ([facility]) Body height 70 [in_i] 70 [in_i] eCW1 ([facility]) Body weight 261 [lb_av] 261 [lb_av] eCW1 ([facility]) Diastolic blood pressure 90 mm[Hg] 90 mm[Hg] eCW1 ([facility]) Systolic blood pressure 152 mm[Hg] 152 mm[Hg] e CW1 ([facility]) Body temperature 95.2 [degF] 95.2 [degF] eCW1 ( [facility]) Respiratory rate 18 /min 18 /min eCW1 ([facility]) Heart rate 100 /min 100 /min eCW1 ([facility]) Body mass index (BMI) [Ratio] 37.88 kg/m2 37.88 kg/m2 eCW1 ([facility]) Body height 70 [in_us] 70 [in_us] eCW1 ([facility]) Body weight Measured 264 [lb_av] 264 [lb_av] eC W1 ([facility]) Body mass index (BMI) [Ratio] 36.73 kg/m2 36.73 kg/m2 eCW1 ([facility]) Body height 70 [in_us] 70 [in_us] eCW1 ([facility]) Body weight Measured [lb_av] eCW1 ([facility]) Body mass index (BMI) [Ratio] 37.4 kg/m2 [...] blood pressure 74 mm[Hg] 74 mm[Hg] eCW1 ([facility]) Systolic blood pressure 130 mm[Hg] 130 mm[Hg] e CW1 ([facility]) Body temperature 95.9 [degF] 95.9 [degF] eCW1 ( [facility]) Respiratory rate 18 /min 18 /min eCW1 ([facility]) Heart rate 93 /min 93 /min eCW1 ([facility]) Body mass index (BMI) [Ratio] 38.88 kg/m2 38.88 kg/m2 eCW1 ([facility]) Body height 70 [in_us] 70 [in_us] eCW1 ([facility]) Body weight Measured 271 [lb_av] 271 [lb_av] eC W1 ([facility]) Diastolic blood pressure mm[Hg] eCW1 ([facility]) Systolic blood pressure 158 mm[Hg] 158 mm[Hg] e CW1 ([facility]) Body temperature 97.3 [degF] 97.3 [degF] eCW1 ( [facility]) Respiratory rate 18 /min 18 /min eCW1 ([facility]) Heart rate 97 /min 97 /min eCW1 ([facility]) Body mass index (BMI) [Ratio] 38.68 kg/m2 38.68 kg/m2 W1 ([facility]) Body height 70 [in_us] 70 [in_us] eCW1 ([facility]) Body weight Measured 269.6 [lb_av] 269.6 [lb_av ] eCW1 ([facility]) Diastolic blood pressure 78 mm[Hg] 78 mm[Hg] eCW1 ([facility]) Systolic blood pressure 140 mm[Hg] 140 mm[Hg] e CW1 ([facility]) Body temperature 96.3 [degF] 96.3 [degF] eCW1 ( [facility]) Respiratory rate 18 /min 18 /min eCW1 ([facility]) Heart rate 85 /min 85 /min eCW1 ([facility]) Body mass index (BMI) [Ratio] 40.17 kg/m2 40.17 kg/m2 eCW1 ([facility]) Body height 70 [in_us] 70 [in_us] eCW1 ([facility]) Body weight Measured 280 [lb_av] 280 [lb_av] eC W1 ([facility]) Diastolic blood pressure 64 mm[Hg] 64 mm[Hg] eCW1 ([facility]) Systolic blood pressure 117 mm[Hg] 117 mm[Hg] e CW1 ([facility]) Body temperature 96.2 [degF] 96.2 [degF] eCW1 ( [facility]) Respiratory rate 18 /min 18 /min eCW1 ([facility]) Heart rate 93 /min 93 /min eCW1 ([facility]) Body mass index (BMI) [Ratio] 37.30 kg/m2 37.30 kg/m2 eCW1 ([facility]) Body height 70 [in_us] 70 [in_us] eCW1 ([facility]) Body weight Measured 260 [lb_av] 260 [lb_av] eC W1 ([facility]) Diastolic blood pressure 80 mm[Hg] 80 mm[Hg] eCW1 ([facility]) Systolic blood pressure 152 mm[Hg] 152 mm[Hg] e CW1 ([facility]) Body temperature 96.4 [degF] 96.4 [degF] eCW1 ( [facility]) Respiratory rate 20 /min 20 /min eCW1 ([facility]) Heart rate 99 /min 99 /min eCW1 ([facility]) Body mass index (BMI) [Ratio] 37.30 kg/m2 37.30 kg/m2 eCW1 ([facility]) Body height 70 [in_us] 70 [in_us] eCW1 ([facility]) Body weight Measured 260 [lb_av] 260 [lb_av] eC W1 ([facility]) Diastolic blood pressure 88 mm[Hg] 88 mm[Hg] eCW1 ([facility]) Systolic blood pressure 160 mm[Hg] 160 mm[Hg] e CW1 ([facility]) Body temperature 96.5 [degF] 96.5 [degF] eCW1 ( [facility]) Respiratory rate 20 /min 20 /min eCW1 ([facility]) Heart rate 97 /min 97 /min eCW1 ([facility]) Body mass index (BMI) [Ratio] 37.88 kg/m2 37.88 kg/m2 eCW1 ([facility]) Body height 70 [in_us] 70 [in_us] eCW1 ([facility]) Body weight Measured 264 [lb_av] 264 [lb_av] eC W1 ([facility]) Diastolic blood pressure 82 mm[Hg] 82 mm[Hg] eCW1 ([facility]) Systolic blood pressure 156 mm[Hg] 156 mm[Hg] e CW1 ([facility]) Body temperature 96.3 [degF] 96.3 [degF] eCW1 ( [facility]) Respiratory rate 20 /min 20 /min eCW1 ([facility]) Heart rate 96 /min 96 /min eCW1 ([facility]) Body mass index (BMI) [Ratio] 37.45 kg/m2 37.45 kg/m2 eCW1 ([facility]) Body height 70 [in_us] 70 [in_us] eCW1 ([facility]) Body weight Measured 261 [lb_av] 261 [lb_av] eC W1 ([facility]) Heart rate 84 /min 84 /min eCW1 ([facility]) Body mass index (BMI) [Ratio] 36.99 kg/m2 36.99 kg/m2 eCW1 ([facility]) Body height 70 [in_us] 70 [in_us] eCW1 ([facility]) Body weight Measured 257.8 [lb_av] 257.8 [lb_av ] eCW1 ([facility]) Diastolic blood pressure 95 mm[Hg] 95 mm[Hg] eCW1 ([facility]) Systolic blood pressure 201 mm[Hg] 201 mm[Hg] e CW1 ([facility]) Body temperature 97.2 [degF] 97.2 [degF] eCW1 ( [facility]) Respiratory rate 20 /min 20 /min eCW1 ([facility]) Patient Treatment Plan of Care Planned Activity Planned Date Details Description Data Source (s) Levofloxacin 250 MG Oral Tablet 10/31/2020 12:00:00 AM EST eCW1 ([facility]) Ketorolac Tromethamine 5 MG/ML Ophthalmic Solution 10/06/2020 12 :00:00 AM EST DAVID (Ben Hyde MD [facility]) prednisolone acetate 10 MG/ML Ophthalmic Suspension [P red Forte] 10/06/2020 12:00:00 AM EST DAVID (Ben Hyde MD [facility]) prednisolone acetate 10 MG/ML Ophthalmic Suspension [P red Forte] 09/26/2020 12:00:00 AM EST DAVID (Ben Hyde MD [facility]) Ketorolac Tromethamine 5 MG/ML Ophthalmic Solution 09/26/2020 12 :00:00 AM EST DAVID (Ben Hyde MD [facility]) moxifloxacin 5 MG/ML Ophthalmic Solution 08/22/2020 12:00:00 AM EST DAVID (Ben Hyde MD [facility]) BromSite 0.075% Ophthalmic Solution 08/22/2020 12:00:00 AM EST DAVID (Ben Hyde MD [facility]) Inveltys 1% Ophthalmic Suspension 08/22/2020 12:00:00 AM EST DAVID (Ben Hyde MD [facility]) loteprednol etabonate 5 MG/ML Ophthalmic Suspension [L otemax] 06/27/2020 12:00:00 AM EDT DAVID (Ben Hyde MD [facility]) Wheelchair - 04/28/2020 12:00:00 AM EDT e CW1 ([facility]) Levofloxacin 750 MG Oral Tablet 12/13/2019 12:00:00 AM EST eCW1 ([facility]) Cyclosporine 0.5 MG/ML Ophthalmic Suspension [Restasis ] 12/11/2019 12:00:00 AM EST DAVID (Ben Hyde MD [facility]) FreeStyle Dwight 14 Day Sensor - 12/10/2019 12:00:00 AM EST eCW1 ([facility]) FreeStyle Dwight 14 Day Sensor - 12/10/2019 12:00:00 AM EST eCW1 ([facility]) Amlodipine 2.5 MG Oral Tablet 11/12/2019 12:00:00 AM EST eCW1 ([facility]) Amlodipine 2.5 MG Oral Tablet 11/12/2019 12:00:00 AM EST eCW1 ([facility]) Amlodipine 2.5 MG Oral Tablet 11/12/2019 12:00:00 AM EST eCW1 ([facility]) Amlodipine 2.5 MG Oral Tablet 11/12/2019 12:00:00 AM EST eCW1 ([facility]) Amlodipine 2.5 MG Oral Tablet 11/12/2019 12:00:00 AM EST eCW1 ([facility]) Amlodipine 2.5 MG Oral Tablet 11/12/2019 12:00:00 AM EST eCW1 ([facility]) Doxycycline Monohydrate 100 MG Oral Capsule 11/12/2019 12:00:00 AM EST eCW1 ([facility]) Amlodipine 2.5 MG Oral Tablet 11/12/2019 12:00:00 AM EST eCW1 ([facility]) Amlodipine 2.5 MG Oral Tablet 11/12/2019 12:00:00 AM EST eCW1 ([facility]) Amlodipine 2.5 MG Oral Tablet 11/12/2019 12:00:00 AM EST eCW1 ([facility]) loteprednol etabonate 0.005 MG/MG Ophthalmic Gel [Lote max] 07/31/2019 12:00:00 AM EDT DAVID (Ben Hyde MD [facility]) loteprednol etabonate 0.005 MG/MG Ophthalmic Gel [Lote max] 12/19/2018 12:00:00 AM EST DAVID (Ben Hyde MD [facility]) Ofloxacin 3 MG/ML Ophthalmic Solution 05/29/2018 12:00:00 AM EDT DAVID (Ben Hyde MD [facility])
== END 2020-11-17 19:29 | disposition left against medical advice (07) ==
LOC: M ED 18:36
DX: Z53.21 Procedure and treatment not carried out due to patient leaving prior to being seen by health care provider (principal)

== ENCOUNTER → 2020-11-24 | Outpatient (CLI) | payer OTHER ==
[~2020-11-24] MED LIST changes: +MONT10TA10 PO; -MONT5TAB2 PO; -QUET1TAB10 PO; +QUET300T2 PO
== END ==
LOC: M LABSMTC 10:52
PROVIDERS: ATTEND Anesthesiology
DX: Z01.812 Encounter for preprocedural laboratory examination (principal); Z20.822 Contact with and (suspected) exposure to COVID-19

== ENCOUNTER → 2020-11-24 | Outpatient (REF) | payer OTHER ==
[2020-11-24 19:53] LABS: HEMOGLOBIN A1c 7.8 %
== END ==
LOC: M PLALAB 11:01
PROVIDERS: ATTEND Family Medicine
DX: E11.59 Type 2 diabetes mellitus with other circulatory complications (principal)

== ENCOUNTER → 2020-11-28 | Outpatient (CLI) | payer OTHER ==
[~2020-11-28] MED LIST changes: +BUPIVACAINE HCL 0.25% 30ML VIAL As Ordered ONE; +ISOVUE-M 300 61% 15ML VIAL As Ordered ONE; +LIDOCAINE 1% SDV 30ML VIAL As Ordered ONE; +MIDAZOLAM INJ 2MG/2ML VIAL (J2250 PER 1MG) As Ordered ONE; +dexameTHASONE 10MG/1ML VIAL PRES.FREE (J1100 PER 1MG) As Ordered ONE; +fentaNYL 100 MCG/2 ML INJECTION (J3010) As Ordered ONE
--- NOTE | 2020-11-28 10:02 | REP ---
INDICATION: PAIN. COMPARISON: None. TECHNIQUE: Three views. 67.1 seconds of fluoroscopy time is reported. FINDINGS: A sequence of 3 last image hold fluoroscopically obtained spot radiographs of the lumbar spine document various needle positions associated with injection procedure. IMPRESSION: Procedural imaging. <Electronically signed by Loi Ruiz > 11/28/20 [id number]
--- NOTE | 2020-11-29 00:02 | ECWPNPC ---
PATIENT NAME: JOSS FORD : 1970 GENDER: FEMALE VISIT DATE: 11/28/2020 DISCHARGE DATE: 11/28/20 1019 VISIT LOCKED DATE TIME: PHYSICIAN: RONNIE SIMMONS MD PHYSICIAN PAGER NO: ACTIVE RESOURCE: RONNIE SIMMONS MD REASON FOR APPOINTMENT 1. RIGHT TRANSFORAMINAL EPIDURAL STEROID INJECTION L3-L4, L4-L5, L5-S1 W/IV SEDATION HISTORY OF PRESENT ILLNESS GENERAL: -. FALL RISK SCREENING: SCREENING :ONE FALL WITHOUT INJURY IN THE PAST YEAR PATIENT REPORTS SYNCOPAL EVENT IN MAY 2020 DUE TO LOW BLOOD PRESSURE, PATIENT SOUGHT MEDICAL ATTENTION, NO INJURY. PAIN SCREENING: PATIENT HAS A COMPLAINT OF ACUTE OR CHRONIC PAIN :YES LOCATION OF PAIN: MID TO LOW BACK, BILATERAL LEFT LEG BKA, PHANTOM, PAINS FELT IN RIGHT LEG. INTENSITY OF PAIN (SCALE OF 1 TO 10):7 WHAT DOES YOUR PAIN FEEL LIKE:SHARP, SHOOTING, OTHER, CONTINOUS "IT'S TERRIBLE" DURATION:CONTINOUS, AWAKENS FROM SLEEP PAIN IS INCREASED BY:ACTIVITIES, PROLONGED STANDING PAIN IS DECREASED BY:USE OF PAIN MEDICATIONS, SITTING TREATMENT/MEDICATIONS USED TO MANAGE PAIN:OPIOIDS PAIN HAS INTERFERED WITH THE FOLLOWING:WALKING ABILITY, HOUSEWORK, SLEEP, ENJOYMENT OF LIFE PLAN/GOALS/TREATMENT/INTERVENTION/FOLLOW UP:SEE PLAN NURSING NOTE: -. PAIN CENTER INTAKE QUESTIONS: DO YOU HAVE A HISTORY OF MRSA? :YES LEFT FOOT. HAS SINCE BEEN AMPUTATED DO YOU TAKE A BLOOD THINNERS? :YES ELIQUIS LAST DOSE TEN DAYS AGO. DO YOU HAVE ANY BLEEDING DISORDERS? :YES FACTOR 5 ANY NEW NUMBNESS OR WEAKNESS IN YOUR LEGS OR ARMS? :NO ANY PACEMAKER,DEFIBRILLATOR, OR DORSAL COLUMN STIMULATOR? :NO DO YOU HAVE ANY RASHES OR OPEN SORES? :NO ARE YOU ALLERGIC TO IV DYE? :NO ARE YOU DIABETIC? :YES ANY NEW PROBLEMS WITH YOUR MEDICATIONS? :NO HAVE YOU RECEIVED A VACCINE IN THE PAST 30 DAYS? :NO DO YOU PLAN TO RECEIVE A VACCINE IN THE NEXT 21 DAYS? :NO DO YOU NEED ANY PRESCRIPTION? :NO DO YOU TAKE ANY IMMUNOSUPPRESSIVE MEDICATIONS? :YES ALLOPURINOL (ONE WEEK AGO) ANY HISTORY OF SEIZURES? :NO ANY HISTORY OF CARDIAC ISSUES OR EVENTS? :NO DO YOU HAVE SLEEP APNEA? :YES DO YOU WEAR A CPAP?NO ANY RECENT HEAD INJURY? :NO DO YOU HAVE ANY NEW INFECTIONS? :NO IS THERE A CHANCE YOU COULD BE ? :NO ARE YOU BREAST FEEDING? :NO WHEN DID YOU LAST EAT? : 11/27/201929 WHEN DID YOU LAST DRINK? : 11/28/20399 WHAT DID YOU LAST DRINK? : WATER NAME OF PERSON DRIVING YOU HOME? : JAYASHREE () [phone] DO YOU HAVE ANY OTHER QUESTIONS OR CONCERNS? : NO CURRENT MEDICATIONS TAKING REQUIP 4 MG TABLET 1 TABLET ORALLY BID, NOTES: 11/27/202099 TAKING ALLOPURINOL 300 MG TABLET TAKE ONE TABLET BY MOUTH EVERY DAY ORAL , NOTES: ONE WEEK TAKING PREGABALIN 300 MG CAPSULE 2 CAPSULES ORAL BID, NOTES: 11/27/202099 TAKING CYCLOBENZAPRINE HCL 10 MG TABLET TAKE ONE TABLET BY MOUTH THREE TIMES A DAY ORAL , NOTES: NOT RECENTLY TAKING HYDROCODONE-ACETAMINOPHEN 10-325 MG TABLET (SCHEDULE II DRUG) TAKE ONE TABLET BY MOUTH EVERY 4 HOURS MAXIMUM DAILY DOSE 6 TABLETS ORAL , NOTES: 11/27/202329 TAKING KETOROLAC TROMETHAMINE 0.5 % SOLUTION INSTILL 1 DROP IN THE RIGHT EYE FOUR TIMES A DAY OPHTHALMIC TAKING DULOXETINE HCL 60 MG CAPSULE DELAYED RELEASE PARTICLES TAKE TWO CAPSULES BY MOUTH EVERY DAY ORAL , NOTES: 11/27/202099 TAKING ONDANSETRON HCL 8 MG TABLET TAKE ONE TABLET BY MOUTH EVERY 12 HOURS NEEDED FOR NAUSEA ORAL TAKING DEXILANT 60 MG CAPSULE DELAYED RELEASE TAKE ONE CAPSULE BY MOUTH EVERY DAY ORAL TAKING ELIQUIS 5 MG TABLET TAKE ONE TABLET BY MOUTH TWICE A DAY ORAL , NOTES: TEN DAYS AGO TAKING TAMSULOSIN HCL 0.4 MG CAPSULE TAKE ONE CAPSULE BY MOUTH EVERY DAY ORAL TAKING VITAMIN D (ERGOCALCIFEROL) 1.25 MG (31066 UT) CAPSULE TAKE 1 CAPSULE BY MOUTH ONCE WEEKLY ON TUESDAY ORAL TAKING TRAZODONE HCL 100 MG TABLET TAKE TWO TABLETS BY MOUTH AT BEDTIME ORALLY TAKING PREDNISOLONE ACETATE 1 % SUSPENSION INSTILL 1 DROP IN THE RIGHT EYE FIVE TIMES A DAY OPHTHALMIC TAKING METHYLPHENIDATE HCL ER (LA) 20 MG CAPSULE EXTENDED RELEASE 24 HOUR (SCHEDULE II DRUG) TAKE ONE CAPSULE BY MOUTH EVERY MORNING MAXIMUM DAILY DOSE 1 CAPSULE ORAL TAKING ALBUTEROL SULFATE HFA 108 (90 BASE) MCG/ACT AEROSOL SOLUTION 2 PUFFS NEEDED INHALATION EVERY 4 HRS TAKING XOPENEX 1.25 MG/3ML NEBULIZATION SOLUTION 3 ML INHALATION EVERY 6 HRS PRN TAKING SYMBICORT 80-4.5 MCG/ACT AEROSOL 2 PUFFS INHALATION BID TAKING PROBIOTIC - CAPSULE DIRECTED ORALLY DAILY TAKING SINGULAIR 10 MG TABLET 1 TABLET ORALLY ONCE A DAY TAKING CLARITIN 10 MG TABLET 1 TABLET ORALLY ONCE A DAY TAKING MAG64 64 MG TABLET DELAYED RELEASE 1 TABLET ORALLY DAILY TAKING COLLAGEN 500 MG CAPSULE DIRECTED ORALLY DAILY TAKING FREESTYLE ANDREA 14 DAY SENSOR - MISCELLANEOUS DIRECTED REPLACE EVERY 2 WEEKS; DX E11.65 TAKING VALACYCLOVIR HCL 1 GM TABLET 1 TABLET ORALLY ONCE A DAY TAKING REQUIP 4 MG TABLET 1 TABLET 1 TO 3 HOURS BEFORE BEDTIME ORALLY TWICE A DAY TAKING TORSEMIDE 20 MG TABLET 1 TABLET ORAL DAILY PRN TAKING NYSTATIN - POWDER DIRECTED TAKING HUMALOG KWIKPEN 200 UNIT/ML SOLUTION PEN-INJECTOR INJECT THREE TIMES A DAY PER SLIDING SCALE MAXIMUM DAILY DOSE 40 UNITS SUBCUTANEOUS TAKING TRESIBA FLEXTOUCH 200 UNIT/ML SOLUTION PEN-INJECTOR INJECT 320 UNITS SUBCUTANEOUSLY DAILY SUBCUTANEOUS TAKING PEN NEEDLES 16" DIRECTED QID; DX E11.65 NOT-TAKING LEVOFLOXACIN 250 MG TABLET 2 TABLETS ORALLY ONCE A DAY NOT-TAKING BROMSITE 0.075 % SOLUTION THREE DAYS PRIOR TO SURGERY START ONE DROP IN THE RIGHT EYE TWO TIMES A DAY OPHTHALMIC NOT-TAKING INVELTYS 1 % SUSPENSION DAY OF SURGERY REMOVE PATCH AND START ONE DROP IN THE RIGHT EYE TWO TIMES A DAY OPHTHALMIC NOT-TAKING MOXIFLOXACIN HCL 0.5 % SOLUTION STARTING 3 DAYS PRIOR TO SURGERY INSTILL ONE DROP IN THE RIGHT EYE FOUR TIMES A DAY OPHTHALMIC NOT-TAKING ESZOPICLONE 3 MG TABLET (SCHEDULE IV DRUG) TAKE ONE TABLET BY MOUTH AT BEDTIME MAXIMUM DAILY DOSE 1 ORAL MEDICATION LIST REVIEWED AND RECONCILED WITH THE PATIENT PAST MEDICAL HISTORY 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 DELA CRUZ TEMPORAL LOBE SEIZURES IN , NONE RECENTLY GERD, HIATAL HERNIA, GASTROPARESISI - DR. REINDL HERPES SIMPLEX II VIA PCR ON LESIONS ON BACK FATTY LIVER + FVL, RECURRENT DVTS TYPE 2 DIABETES MELLITUS WITH OTHER CIRCULATORY COMPLICATIONS - NEFTALY HX RECTO-SIGMOID ISCHEMIC COLITIS 03/2018 CONFIRMED BY SIGMOID C BX-REINDL, MSESNTERIC ARTERIOGRAM S INTERVENTION HX URINARY RETENTION - [facility] UROLOGY HX MCCOLLUM'S PALSY - NEURO PA - NONCOMPLIANT WITH CPAP CKD3 - NEPHROLOGY HISTORY OF MRSA RLS, NOCTURNAL LEG CRAMPS IRON DEFICIENCY ANEMIA L-BREAST I&D ALLERGIES LATEX (FOR ALLERGY USE ONLY): ANAPHYLAXIS - ALLERGY PENICILLIN (FOR ALLERGIES USE ONLY): ANAPHYLAXIS - ALLERGY SULFA (FOR ALLERGY USE ONLY): HIVES - ALLERGY TRICOR: HIVES - ALLERGY GLUCOPHAGE: HIVES - ALLERGY LIPITOR: HIVES - ALLERGY ZOCOR: HIVES - ALLERGY FRESH PINEAPPLE: SWOLLEN LIPS/ SORES IN MOUTH - ALLERGY KEFLEX: HIVES - ALLERGY SOCIAL HISTORY GENERAL: TOBACCO USE ARE YOU A:FORMER SMOKER HOW LONG HAS IT BEEN SINCE YOU LAST SMOKED?6-12 MONTHS LATEX QUESTIONNAIRE LATEX ALLERGY : HAVE YOU EVER DEVELOPED ANY TYPE OF REACTION AFTER HANDLING LATEX PRODUCTS SUCH RUBBER GLOVES, CONDOMS, DIAPHRAGMS, BALLOONS, SOCKS, OR UNDERWEAR?YES - PLEASE INDICATE :RUBBER GLOVES, CONDOMS, BALLOONS LATEX ALLERGY : HAVE YOU EVER DEVELOPED ANY TYPE OF REACTION DURING OR AFTER DENTAL APPOINTMENT, VAGINAL/RECTAL EXAMINATION, SURGICAL PROCEDURE, OR ANY OTHER EXPOSURE?YES - PLEASE INDICATE :VAGINAL EXAM, RECTAL EXAM LATEX RISK : HAVE YOU EVER HAD ANY DIFFICULTY BREATHING OR HIVES AFTER EATING OR HANDLING ANY FRUITS, OR VEGETABLES; SUCH KIWI, BANANAS, STONE FRUITS, OR CHESTNUTSNO LATEX RISK : DO YOU HAVE A PREVIOUS PERSONAL HISTORY OF MORE THAN NINE SURGERIES, SPINA BIFIDA, OR REPEATED CATHERIZATIONS? YES - PLEASE INDICATE : > 9 SURGERIES LATEX RISK : ARE YOU FREQUENTLY EXPOSED TO LATEX PRODUCTS IN YOUR OCCUPATION?NO DATE ASKED : 11/27/2020 ACTIVE LATEX ALLERGY ALCOHOL USE: NO. LUNG CANCER SCREENING SMOKING STATUS:FORMER SMOKER IS THE PATIENT BETWEEN THE AGE OF 54 AND 76?NO BMI CARE GOAL FOLLOW-UP ABOVE NORMAL BMI [facility] REGARDING DIET ALCOHOL SCREENING POINTS: 0, INTERPRETATION: NEGATIVE. RECREATIONAL DRUG USE DENIES. CAFFEINE CAFFEINE USE?NO SEXUAL HX HAD SEX IN THE LAST 12 MONTHS (VAGINAL, ORAL, OR ANAL)?YES WITHMEN ONLY PREVENTION STRATEGIES DISCUSSED:CONDOMS USE PROTECTION?NO HAVE YOU EVER HAD AN STD?NO HIV / HEP-C SCREENING HIV TEST OFFERED TO PATIENT:NO HEP-C TEST OFFERED TO PATIENT:NO TAOIST [id number] NONE LANGUAGE LANGUAGES SPOKEN:LIBYAN EDUCATION SOME COLLEGE. 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 DIET: CARBOHYDRATE CONTROLLED. EXERCISE: NO REGULAR EXERCISE. MARITAL STATUS: . OTHERS AT HOME: SPOUSE. HOUSING: OWNS HOME. VITAL SIGNS WT 264.2 LBS, HT 70 IN, BMI 37.90 INDEX, BP 200/100 MM HG, HR 99 /MIN, RR 18 /MIN, TEMP 96.6 F, OXYGEN SAT % 95%, BLOOD GLUCOSE LEVEL 132 THIS AM, SAFE IN ENV? (Y/N) YES, NA INITIALS AW 0824, REVIEWED BY: Lv CHAVES POST COMMANDER. EXAMINATION GENERAL EXAMINATION: A HISTORY AND PHYSICAL EXAM ON THE PATIENT WAS DONE ON 11/07/2020 (DATE OF ORIGINAL ASSESSMENT) IN PREPARATION OF SURGERY/PROCEDURE. I HAVE NOW REASSESSED THIS PATIENT'S HEALTH STATUS AND PERFORMED AN UPDATED EXAM TODAY. ALL CHANGES IN THE PATIENT'S HISTORY, PHYSICAL EXAM, PRE-EXISTING CONDITONS, AND INDICATIONS/CONTRAINDICATIONS TO THE PLANNED PROCEDURE AND ANESTHESIA ARE DOCUMENTED AND EVALUATED BELOW. I ATTEST TO THE ADEQUACY AND APPROPRIATENESS OF MY ASSESSMENT, AND CONFIRM THE NECESSITY FOR THE PLANNED PROCEDURE. THE PATIENT IS ALERT, ORIENTED TIMES THREE AND COOPERATIVE. LUNGS ARE CLEAR TO AUSCULTATION. HEART SHOWS REGULAR RHYTHM, NO MURMURS AND NO GALLOPS. ASSESSMENTS RADICULOPATHY DUE TO LUMBAR INTERVERTEBRAL DISC DISORDER - M51.16 (PRIMARY) TREATMENT RADICULOPATHY DUE TO LUMBAR INTERVERTEBRAL DISC DISORDER [facility] FLUORO GUIDANCE (PAIN)[id number] COMPLETION OF PROCEDURAL VISIT WHEN MEETS CRITERIAJEM CHAVES 11/28/2020 10:37:55 AM > CRITERIA MET AT 1005. MEDICATION: VERSED 1MG IV (MIDAZOLAM)PATRICIA PERKINS 11/28/2020 8:53:22 AM > VERIFIED. BELINDA BOLDEN 11/28/2020 09:26:32 AM - SECOND DOSE ORDERED, VERIFIED WITH KRAIG MORRISON R 11/28/2020 9:59:59 AM > 1ST DOSE GIVEN AT 0921. SECOND DOSE GIVEN AT 0926. TOTAL OF 2 MG. MEDICATION: FENTANYL CITRATE 50MCG IV PATRICIA PERKINS 11/28/2020 8:53:53 AM > VERIFIED. BELINDA BOLDEN 11/28/2020 09:23:21 AM - SECOND DOSE ORDERED, VERIFIED WITH KRAIG MORRISON R 11/28/2020 10:00:57 AM > 1ST DOSE GIVEN AT 0921. SECOND DOSE GIVEN AT 0923. TOTAL OF 100 MCG GIVEN. OXYGEN AT 2 LITERS PER NASAL CANNULAANASTACIOJEM 11/28/2020 10:23:33 AM > OXYGEN ON AT: 0905; OXYGEN OFF AT: 0951 [facility]/28[facility]2020 9:38:45 AM > 22G IN RIGHT FOREARM OBTAINED BY Kavon HORTON RN ON THIRD ATTEMPT, POSITIVE FLASH, POSITIVE FLUSH, NO S/S OF INFILTRATION, TWO ATTEMPTS COVERED, BLEEDING CONTROLLED, PRESSURE DRESSING APPLIED, PATIENT TOLERATED PROCEDURE WELL. JEM CHAVES 11/28/2020 10:24:13 AM > PATIENT GIVEN A TOTAL OF 300CC LR DURING PROCEDURE. OTHERS NOTES: 11/27/20 1340 PAT COMPLETED. Lv CHAVES POST COMMANDER. PROCEDURES PAIN NURSING RECORD PROCEDURE IN ROOM 0903, PHYSICIAN IN ROOM 0917, START 0926, FINISH 0949, PHYSICIAN OUT OF ROOM 0950, OUT OF ROOM 0956, ECG NORMAL SINUS, PATIENT SHIELDED YES, SAFETY STRAP YES, PREP BETADINE Brandin HERNANDEZ RN, DRESSING TEGADERM DR. SIMMONS LOC: JEM CHAVES 11/28/2020 9:05:34 AM > 1. ALERT, ORIENTED JEM CHAVES 11/28/2020 9:31:07 AM > 2. DROWSY, RESPONDS APPROPRIATELY JEM CHAVES 11/28/2020 9:43:11 AM > 1. ALERT, ORIENTED RESP: JEM CHAVES 11/28/2020 9:05:34 AM > 1. REGULAR, NO DYSPNEA COLOR: JEM CHAVES 11/28/2020 9:05:34 AM > 1. PINK SKIN: JEM CHAVES 11/28/2020 9:05:34 AM > 1. WARM, DRY POSITION: ANASTACIOJEM 11/28/2020 9:05:34 AM > 1. PRONE VITALS: YAO CHAVESISSA 11/28/2020 9:11:37 AM > 234/117, 98, 100% 2LNC, 18. ANASTACIOALAMOGORDO 11/28/2020 9:12:18 AM > 229/108, 93, 100% 2LNC, 18. ANASTACIOALAMOGORDO 11/28/2020 9:20:53 AM > 227/102, 86, 100% 2LNC, 18. ANASTACIOALAMOGORDO 11/28/2020 9:21:15 AM > 218/88, 86, 100% 2LNC, 18. ANASTACIOALAMOGORDO 11/28/2020 9:22:44 AM > 193/97, 86, 100% 2LNC, 18. ANASTACIOALAMOGORDO 11/28/2020 9:27:11 AM > 187/82, 84, 99% 2LNC, 18. ANASTACIOALAMOGORDO 11/28/2020 9:28:20 AM > 179/79, 83, 97% 2LNC, 18. ANASTACIOALAMOGORDO 11/28/2020 9:32:09 AM > 170/84, 85, 100% 2LNC, 18. ANASTACIOALAMOGORDO 11/28/2020 9:37:30 AM > 176/84, 85, 99% 2LNC, 18. ANASTACIOALAMOGORDO 11/28/2020 9:41:58 AM > 183/86, 85, 100% 2LNC, 18. ANASTACIOALAMOGORDO 11/28/2020 9:42:49 AM > 189/89, 85, 99% 2LNC, 18. ANASTACIOALAMOGORDO 11/28/2020 9:44:06 AM > 188/86, 84, 100% 2LNC, 18. ANASTACIOALAMOGORDO 11/28/2020 9:46:56 AM > 187/77, 83, 99% 2LNC, 18. ANASTACIOALAMOGORDO 11/28/2020 9:52:04 AM > 161/74, 84, 98% RA, 18. ANASTACIOALAMOGORDO 11/28/2020 10:03:04 AM > POST PROCEDURE 182/86, 99, 97% RA, 18. NOTES M. ANASTACIO RN, PATIENT BROUGHT TO PROCEDURE ROOM BY STRETCHER DUE TO DIFFICULTY AMBULATING AT BASELINE. PATIENT BROUGHT TO RECOVERY ROOM VIA STRETCHER DUE TO IV SEDATION DURING PROCEDURE. COMPLETION OF PROCEDURE APPOINTMENT: POST PAIN 01/24, DRESSING SITE DRY AND INTACT, IV DISCONTINUED, SITE CLEAR, CATHETER INTACT, GAIT WHEELCHAIR PATIENT BROUGHT FROM RECOVERY ROOM TO VEHICLE, DISCHARGE INSTRUCTIONS REVIEWED WITH PATIENT AND SPOUSE, BOTH INDIVIDUALS VERBALIZED UNDERSTANDING, NO QUESTIONS OR CONCERNS AT THIS TIME. Lv CHAVES RN BSN, TEACHING COMPLETED, PATIENT ACKNOWLEDGES UNDERSTANDING YES, PROCEDURE APPOINTMENT COMPLETED AT BY: Lv CHAVES RN AT 1018. PN LUMBAR TRANSFORAMINAL BLOCKS PRE PROCEDURE DIAGNOSIS LUMBAR DISC DISORDER WITH RADICULOPATHY POST PROCEDURE DIAGNOSIS LUMBAR DISC DISORDER WITH RADICULOPATHY PROCEDURE RIGHT L3-L4, RIGHT L4-L5 AND RIGHT L5-S1 TRANSFORAMINAL EPIDURAL STEROID INJECTION UNDER FLUOROSCOPIC GUIDANCE SURGEON DR RONNIE SIMMONS OPERATIONS AND MAINTENANCE TECHNICAN NONE ANESTHESIA LOCAL WITH IV SEDATION PRE PROCEDURE NOTE THE PATIENT WITH HISTORY OF CHRONIC LOW BACK PAIN. I EVALUATED THE PATIENT AND REVIEWED THE CHART. I WENT OVER THE RISKS, ALTERNATIVES, AND BENEFITS ASSOCIATED WITH THIS PROCEDURE. THE PATIENT WOULD LIKE TO PROCEED AND GIVE CONSENT TO PERFORMED THE PROCEDURE. THE PATIENT WOULD LIKE TO MOVE FORWARD WITH IV SEDATION DUE TO ANXIETY AND DISCOMFORT ASSOCIATED WITH THE PROCEDURE. THE PATIENT DENIES UNEXPLAINABLE WEIGHT LOSS, FEVER, CHILLS, OR CHANGES IN URINARY OR BOWEL CONTROL. THE PATIENT IS COVID-19 NEGATIVE DESCRIPTION OF PROCEDURE THE PATIENT WAS BROUGHT TO THE PROCEDURE ROOM AND PLACED IN THE PRONE POSITION. THE LUMBOSACRAL AREA WAS CLEANED WITH BETADINE SOLUTION AND DRAPED ASEPTICALLY. THE PROCEDURE WAS DONE UNDER STERILE CONDITIONS. A TIMEOUT WAS PERFORMED WHERE THE CONSENTED SITE WAS VERIFIED WITH EVERYONE IN THE ROOM. UNDER FLUOROSCOPIC GUIDANCE, THE TARGET POINT WAS SELECTED AT THE RIGHT TRANSFORAMINAL OPENING OF L3, RIGHT TRANSFORAMINAL OPENING OF L4 AND RIGHT TRANSFORAMINAL OPENING OF L5. TARGET POINT WAS SELECTED AFTER LATERAL ROTATION AND TILT OF THE MAGNIFIER OF THE C-ARM. I CONFIRMED AGAIN THE SITE OF THE TARGET. LIDOCAINE 0.5% WAS USED TO NUMB THE SKIN AND THE SUBCUTANEOUS TISSUE BELOW IT. AN EPIMED INTRODUCER, 18-GAUGE, WAS ADVANCED UNTIL I WENT CLOSE TO THE SELECTED TRANSFORAMINAL OPENINGS. AFTER PROPER POSITION OF THE NEEDLES WAS ACHIEVED, A 22-GAUGE, EPIMED NEEDLE, WAS PLACED INSIDE OF THE INTRODUCER AND ADVANCED TO THE TRANSFORAMINAL OPENING OF THE SELECTED SITES. WHEN PROPER POSITION OF THE NEEDLE WAS ACHIEVED, ISOVUE-M DYE 30%, 0.25 ML, WAS INJECTED SHOWING ADEQUATE SPREAD OF THE DYE. THIS WAS DONE UNDER DIGITAL SUBTRACTION AND ANGIOGRAPHY. THERE WAS NO VASCULAR UPDATE. THEN, A SOLUTION OF 2 ML OF BUPIVACAINE 0.25% AND DEXAMETHASONE 5 MG WAS INJECTED AT EACH SITE. THE MEDICATION WAS VERIFIED WITH THE NURSE. THERE WAS NO EVIDENCE OF BLOOD, PARESTHESIA OR CEREBROSPINAL FLUID DURING THE PROCEDURE. THE PATIENT WAS SENT TO THE RECOVERY ROOM. THE PATIENT WAS MOVING THE EXTREMITIES AND DOING WELL. THERE WAS NO COMPLICATION DURING THE PROCEDURE. ESTIMATED BLOOD LOSS WAS LESS THAN 5 ML. FLUOROSCOPY TIME WAS 1 MINUTE 14 SECONDS. PATIENT RECEIVED VERSED 2 MG AND FENTANYL 100 MCG IV IN DIVIDED DOSES. WOBX-KL-FUUG START TIME WAS 0921. FXVF-NX-EYTX END TIME WAS 0951. TOTAL MECD-EV-KROX TIME WAS 30 MINUTES. POST PROCEDURE NOTE THE PROCEDURE DONE WAS DISCUSSED WITH THE PATIENT. THE PATIENT WILL BE SEEN IN A FOLLOW UP IN THE NEXT FEW WEEKS. I AM LOOKING FOR LONG LASTING PAIN RELIEF FOR THE PATIENT WITH THIS INTERVENTION. INSTRUCTIONS WERE GIVEN, QUESTIONS WERE ANSWERED, AND THE PATIENT EXPRESSED UNDERSTANDING AND AGREES WITH THE PLAN. I, BELINDA BOLDEN, DOCUMENTED THE ABOVE INFORMATION ACTING A SCRIBE FOR DR. SIMMONS. I HAVE REVIEWED THE ABOVE DOCUMENT, WRITTEN BY BELINDA BOLDEN, WATER VALVE REPAIRER, AND I VERIFY THAT IT IS ACCURATE PROCEDURE CODES 42909 INJ FORAMEN EPIDURAL L/S, MODIF[place]: [place] [address] INJ FORAMEN EPIDURAL ADD-ON, UNITS: 2.00 , MODIFIERS: [place] [address] MOD SED SAME PHYS/QHP 5/>YRS 42906 MOD SED SAME PHYS/QHP EA DISPOSITION & COMMUNICATION FOLLOW UP FOLLOW UP WITH DR. SIMMONS OVER THE PHONE (REASON: POST RIGHT TRANSFORAMINAL EPIDURAL STEROID INJECTION L3-L4, L4-L5, L5-S1) ELECTRONICALLY SIGNED BY RONNIE SIMMONS MD, MD ON 11/28/2020 AT 04:31 PM EST DISCLAIMER : THIS IS A VISIT SUMMARY EXTRACTED FROM THE [facility] CHART. IT IS NOT A COPY OF THE [facility] PROGRESS NOTE. MTDD
== END ==
LOC: M PAIN 08:00
PROVIDERS: ATTEND Anesthesiology
DX: M51.16 Intervertebral disc disorders with radiculopathy, lumbar region (principal); I10 Essential (primary) hypertension; J44.9 Chronic obstructive pulmonary disease, unspecified; J45.909 Unspecified asthma, uncomplicated; M79.7 Fibromyalgia; K21.9 Gastro-esophageal reflux disease without esophagitis; E11.22 Type 2 diabetes mellitus with diabetic chronic kidney disease; G47.33 Obstructive sleep apnea (adult) (pediatric); N18.30 Chronic kidney disease, stage 3 unspecified; D50.9 Iron deficiency anemia, unspecified; Z87.891 Personal history of nicotine dependence; Z79.891 Long term (current) use of opiate analgesic; Z79.01 Long term (current) use of anticoagulants; Z79.899 Other long term (current) drug therapy; Z79.4 Long term (current) use of insulin; Z88.0 Allergy status to penicillin; Z88.2 Allergy status to sulfonamides; Z88.8 Allergy status to other drugs, medicaments and biological substances; Z91.040 Latex allergy status; Z88.1 Allergy status to other antibiotic agents; Z91.018 Allergy to other foods
CPT/HCPCS: 64483; 64484; 99152; 99153; J1100; J2250; J3010; Q9967

== ENCOUNTER → 2020-12-02 | Outpatient (CLI) | payer OTHER ==
[~2020-12-02] MED LIST changes: -BUPIVACAINE HCL 0.25% 30ML VIAL As Ordered ONE; -ISOVUE-M 300 61% 15ML VIAL As Ordered ONE; -LIDOCAINE 1% SDV 30ML VIAL As Ordered ONE; -MIDAZOLAM INJ 2MG/2ML VIAL (J2250 PER 1MG) As Ordered ONE; -dexameTHASONE 10MG/1ML VIAL PRES.FREE (J1100 PER 1MG) As Ordered ONE; -fentaNYL 100 MCG/2 ML INJECTION (J3010) As Ordered ONE
--- NOTE | 2020-12-02 16:49 | REP ---
INDICATION: NEW DAILY PERSISTENT [facility] -- STAT LAB WORK AFTER . COMPARISON: Comparison CT study May 27, 2020.. TECHNIQUE: Helical scanning is acquired. 5 mm axial images were reformatted. Coronal MPR images were generated. FINDINGS: Bone window settings demonstrate an intact bony calvarium. There is no evidence of skull fracture or incidental bony calvarial lesion. The visualized paranasal sinuses appear clear. No intraorbital abnormality is seen. On soft tissue window setting images; the lateral, third, and fourth ventricles are normal in size and position. Akbar-white differentiation pattern is normal above and below the tentorium. There are is no evidence of intracranial hemorrhage. No mass, edema, infarction, or midline shift is seen. No extra-axial fluid collection is appreciated. IMPRESSION: Negative noncontrast head CT. <Electronically signed by Loi Ruiz > 12/02/20 1331
[2020-12-02 17:06] LABS: BASO % 0.4 % (0.0-1.0); EOS # 0.2 10^3/uL (0.0-0.5); EOS % 2.1 % (0.0-3.0); HEMATOCRIT 36.7 % (36.0-47.0); HEMOGLOBIN 12.5 g/dl (12.0-15.5); LYMPH # 1.9 10^3/uL (1.5-5.0); LYMPH % 18.6 % (24.0-44.0); MEAN CORPUSCULAR HEMOGLOBIN 28.7 pg (27.0-33.0); MEAN CORPUSCULAR HGB CONC 34.1 g/dl (32.0-36.5); MEAN CORPUSCULAR VOLUME 84.2 fl (80.0-96.0); MONO # 0.6 10^3/uL (0.0-0.8); MONO % 5.8 % (2.0-8.0); NEUTROPHILS # 7.3 10^3/uL (1.5-8.5); NEUTROPHILS % 72.2 % (36.0-66.0); PLATELET COUNT, AUTOMATED 233 10^3/uL (150-450); RED BLOOD COUNT 4.36 10^6/uL (4.00-5.40); WHITE BLOOD COUNT 10.1 10^3/uL (4.0-10.0)
[2020-12-02 17:27] LABS: C REACTIVE PROTEIN QUANTITATIV 0.32 MG/DL (0.00-0.30); CALCIUM LEVEL 8.5 MG/DL (8.5-10.1); CREATININE FOR GFR 1.2 MG/DL (0.55-1.30); GLOMERULAR FILTRATION RATE 50.4 (>51); POTASSIUM SERUM 4.2 MEQ/L (3.5-5.1)
[2020-12-02 17:48] LABS: ERYTHROCYTE SEDIMENTATION RATE 64 mm/hr (0-30)
== END ==
LOC: M RAD 15:59
PROVIDERS: ATTEND Family Medicine
DX: R51.9 Headache, unspecified (principal)

== ENCOUNTER 2020-12-12 10:14 | Outpatient (CLI) | payer OTHER ==
[~2020-12-12] VITALS: Ht 177.8 cm; Wt 113.0 kg
[~2020-12-12 10:14] MED LIST changes: +ALBUTEROL SULFATE 2.5 MG/0.5 ML INH NEB SOLN INH PRN; +EPINEPHrine INJ 1 MG/ML 1ML AMP IM PRN; -NAPR-849 PO; +NAPR250T4 PO; +diphenhydrAMINE 50MG/ML VIAL (J1200) IV PRN; +methylPREDNISolone 125MG 2ML VIAL IV PRN
[2020-12-12 10:15] VITALS: BP 194/90
[2020-12-12] MEDS ORDERED: diphenhydrAMINE 50MG/ML VIAL (J1200) IV ONE (10:30)
[2020-12-12] MEDS ORDERED: IRON SUCROSE 25 MG in NS 25 ML IV ONE (10:30)
[2020-12-12] MEDS ORDERED: NS 1,000 ML IV SCH (10:30)
[2020-12-12] MEDS ORDERED: IRON SUCROSE 300 MG in NS 250 ML OVER 90 MIN. IV ONE (11:30)
[2020-12-12] MEDS ORDERED: HUMA50IN4 SC (11:31)
[2020-12-12 12:30] VITALS: BP 188/92
[2020-12-12 14:18] VITALS: BP 191/91
[2020-12-12 14:45] VITALS: BP 180/90
== END 2020-12-12 14:45 | disposition home or self-care (01) ==
LOC: M INFU 10:14
PROVIDERS: ATTEND Internal Medicine Nephrology
DX: D50.9 Iron deficiency anemia, unspecified (principal); Z88.0 Allergy status to penicillin; Z88.1 Allergy status to other antibiotic agents; Z88.2 Allergy status to sulfonamides; Z88.8 Allergy status to other drugs, medicaments and biological substances; Z91.048 Other nonmedicinal substance allergy status; Z91.040 Latex allergy status
CPT/HCPCS: 96365; 96366; J1200; J1756

== ENCOUNTER → 2020-12-12 | Outpatient (CLI) | payer OTHER ==
[~2020-12-12] MED LIST changes: +NAPR-849 PO; -NAPR250T4 PO
--- NOTE | 2020-12-17 01:52 | ECWPNPC ---
PATIENT NAME: JOSS FORD : 1970 GENDER: FEMALE VISIT DATE: 12/12/2020 DISCHARGE DATE: 12/12/20 0000 VISIT LOCKED DATE TIME: PHYSICIAN: RONNIE SIMMONS MD PHYSICIAN PAGER NO: ACTIVE RESOURCE: RONNIE SIMMONS MD REASON FOR APPOINTMENT 1. POST RIGHT TRANSFORAMINAL EPIDURAL STEROID INJECTION L3-L4, L4-L5, L5-S1 HISTORY OF PRESENT ILLNESS GENERAL: PERMISSION FROM PATIENT WAS RECEIVED TO DO TELEPHONE OFFICE VISIT. 50-YEAR-OLD FEMALE PATIENT WITH A HISTORY OF CHRONIC LOW BACK AND MAINLY RIGHT LEG PAIN. THE PATIENT DESCRIBES THE PAIN CONTINUOUS AND SHARP WITH A PAIN SCORE RANGING FROM 7-10/10. SHE DID A TRANSFORAMINAL EPIDURAL THAT UNFORTUNATELY DID NOT HELP HER. SHE IS HAVING DIFFICULTY SLEEPING. THE PAIN IS AFFECTING HER ACTIVITIES SUCH CLEANING HER HOUSE, MOVING AROUND AND GROCERY SHOPPING. SHE IS DESPERATE FOR HELP. THE PATIENT STATES THAT HER FUNCTIONALITY IN THE LAST YEAR HAS SIGNIFICANTLY DECREASED AND NOW SHE IS WHEELCHAIR BOUND. SHE HAS TRIED MEDICATIONS THAT DO NOT CONTROL HER PAIN. SHE SAW A SURGEON WHO STATED THAT DUE TO HER CURRENT COMORBIDITIES, SHE IS NOT A CANDIDATE FOR SURGERY. FALL RISK SCREENING: SCREENING :ONE FALL WITHOUT INJURY IN THE PAST YEAR PAIN SCREENING: PATIENT HAS A COMPLAINT OF ACUTE OR CHRONIC PAIN :YES LOCATION OF PAIN:LOW BACK, LEG(S) INTENSITY OF PAIN (SCALE OF 1 TO 10):7 7 @ REST, 10 WITH ACTIVITY WHAT DOES YOUR PAIN FEEL LIKE:SHARP DURATION:CONTINOUS, CONSTANT PAIN IS INCREASED BY:ACTIVITIES PAIN IS DECREASED BY:USE OF PAIN MEDICATIONS NURSING NOTE: -. PAIN CENTER INTAKE QUESTIONS: DO YOU HAVE A HISTORY OF MRSA? :YES TO BELOW KNEE WHICH WAS AMPUTATED DO YOU TAKE A BLOOD THINNERS? :YES ELIQUIS, FACTOR V LIDEN DO YOU HAVE ANY BLEEDING DISORDERS? :YES FACTOR V LIDEN ANY NEW NUMBNESS OR WEAKNESS IN YOUR LEGS OR ARMS? :NO ANY PACEMAKER,DEFIBRILLATOR, OR DORSAL COLUMN STIMULATOR? :NO DO YOU HAVE ANY RASHES OR OPEN SORES? :YES ECZEMA ARE YOU ALLERGIC TO IV DYE? :NO ARE YOU DIABETIC? :YES ANY NEW PROBLEMS WITH YOUR MEDICATIONS? :NO HAVE YOU RECEIVED A VACCINE IN THE PAST 30 DAYS? :NO DO YOU PLAN TO RECEIVE A VACCINE IN THE NEXT 21 DAYS? :NO DO YOU NEED ANY PRESCRIPTION? :NO DO YOU TAKE ANY IMMUNOSUPPRESSIVE MEDICATIONS? :NO IS THERE A CHANCE YOU COULD BE ? :NO ARE YOU BREAST FEEDING? :NO CURRENT MEDICATIONS TAKING REQUIP 4 MG TABLET 1 TABLET ORALLY BID TAKING ALLOPURINOL 300 MG TABLET TAKE ONE TABLET BY MOUTH EVERY DAY ORAL TAKING PREGABALIN 300 MG CAPSULE 2 CAPSULES ORAL BID TAKING CYCLOBENZAPRINE HCL 10 MG TABLET TAKE ONE TABLET BY MOUTH THREE TIMES A DAY ORAL TAKING HYDROCODONE-ACETAMINOPHEN 10-325 MG TABLET (SCHEDULE II DRUG) TAKE ONE TABLET BY MOUTH EVERY 4 HOURS MAXIMUM DAILY DOSE 6 TABLETS ORAL TAKING DULOXETINE HCL 60 MG CAPSULE DELAYED RELEASE PARTICLES TAKE TWO CAPSULES BY MOUTH EVERY DAY ORAL TAKING ONDANSETRON HCL 8 MG TABLET TAKE ONE TABLET BY MOUTH EVERY 12 HOURS NEEDED FOR NAUSEA ORAL TAKING DEXILANT 60 MG CAPSULE DELAYED RELEASE TAKE ONE CAPSULE BY MOUTH EVERY DAY ORAL TAKING ELIQUIS 5 MG TABLET TAKE ONE TABLET BY MOUTH TWICE A DAY ORAL , NOTES: TEN DAYS AGO TAKING TAMSULOSIN HCL 0.4 MG CAPSULE TAKE ONE CAPSULE BY MOUTH EVERY DAY ORAL TAKING VITAMIN D (ERGOCALCIFEROL) 1.25 MG (27710 UT) CAPSULE TAKE 1 CAPSULE BY MOUTH ONCE WEEKLY ON TUESDAY ORAL TAKING TRAZODONE HCL 100 MG TABLET TAKE TWO TABLETS BY MOUTH AT BEDTIME ORALLY TAKING METHYLPHENIDATE HCL ER (LA) 20 MG CAPSULE EXTENDED RELEASE 24 HOUR (SCHEDULE II DRUG) TAKE ONE CAPSULE BY MOUTH EVERY MORNING MAXIMUM DAILY DOSE 1 CAPSULE ORAL TAKING ALBUTEROL SULFATE HFA 108 (90 BASE) MCG/ACT AEROSOL SOLUTION 2 PUFFS NEEDED INHALATION EVERY 4 HRS TAKING XOPENEX 1.25 MG/3ML NEBULIZATION SOLUTION 3 ML INHALATION EVERY 6 HRS PRN TAKING SYMBICORT 80-4.5 MCG/ACT AEROSOL 2 PUFFS INHALATION BID TAKING PROBIOTIC - CAPSULE DIRECTED ORALLY DAILY TAKING SINGULAIR 10 MG TABLET 1 TABLET ORALLY ONCE A DAY TAKING CLARITIN 10 MG TABLET 1 TABLET ORALLY ONCE A DAY TAKING MAG64 64 MG TABLET DELAYED RELEASE 1 TABLET ORALLY DAILY TAKING COLLAGEN 500 MG CAPSULE DIRECTED ORALLY DAILY TAKING FREESTYLE ANDREA 14 DAY SENSOR - MISCELLANEOUS DIRECTED REPLACE EVERY 2 WEEKS; DX E11.65 TAKING VALACYCLOVIR HCL 1 GM TABLET 1 TABLET ORALLY ONCE A DAY TAKING TORSEMIDE 20 MG TABLET 1 TABLET ORAL DAILY PRN TAKING NYSTATIN - POWDER DIRECTED TAKING HUMALOG KWIKPEN 200 UNIT/ML SOLUTION PEN-INJECTOR INJECT THREE TIMES A DAY PER SLIDING SCALE MAXIMUM DAILY DOSE 40 UNITS SUBCUTANEOUS TAKING TRESIBA FLEXTOUCH 200 UNIT/ML SOLUTION PEN-INJECTOR INJECT 320 UNITS SUBCUTANEOUSLY DAILY SUBCUTANEOUS TAKING PEN NEEDLES 03/01" DIRECTED QID; DX E11.65 TAKING TOPIRAMATE 50 MG TABLET 1 TABLET ORALLY BID NOT-TAKING KETOROLAC TROMETHAMINE 0.5 % SOLUTION INSTILL 1 DROP IN THE RIGHT EYE FOUR TIMES A DAY OPHTHALMIC NOT-TAKING PREDNISOLONE ACETATE 1 % SUSPENSION INSTILL 1 DROP IN THE RIGHT EYE FIVE TIMES A DAY OPHTHALMIC NOT-TAKING REQUIP 4 MG TABLET 1 TABLET 1 TO 3 HOURS BEFORE BEDTIME ORALLY TWICE A DAY NOT-TAKING LEVOFLOXACIN 250 MG TABLET 2 TABLETS ORALLY ONCE A DAY NOT-TAKING BROMSITE 0.075 % SOLUTION THREE DAYS PRIOR TO SURGERY START ONE DROP IN THE RIGHT EYE TWO TIMES A DAY OPHTHALMIC NOT-TAKING INVELTYS 1 % SUSPENSION DAY OF SURGERY REMOVE PATCH AND START ONE DROP IN THE RIGHT EYE TWO TIMES A DAY OPHTHALMIC NOT-TAKING MOXIFLOXACIN HCL 0.5 % SOLUTION STARTING 3 DAYS PRIOR TO SURGERY INSTILL ONE DROP IN THE RIGHT EYE FOUR TIMES A DAY OPHTHALMIC NOT-TAKING ESZOPICLONE 3 MG TABLET (SCHEDULE IV DRUG) TAKE ONE TABLET BY MOUTH AT BEDTIME MAXIMUM DAILY DOSE 1 ORAL MEDICATION LIST REVIEWED AND RECONCILED WITH THE PATIENT PAST MEDICAL HISTORY 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 DELA CRUZ TEMPORAL LOBE SEIZURES IN , NONE RECENTLY GERD, HIATAL HERNIA, GASTROPARESISI - DR. TAVERAS HERPES SIMPLEX II VIA PCR ON LESIONS ON BACK FATTY LIVER + FVL, RECURRENT DVTS TYPE 2 DIABETES MELLITUS WITH OTHER CIRCULATORY COMPLICATIONS - NEFTALY HX RECTO-SIGMOID ISCHEMIC COLITIS 03/2018 CONFIRMED BY SIGMOID C BX-NITIN, MSESNTERIC ARTERIOGRAM S INTERVENTION HX URINARY RETENTION - [facility] UROLOGY HX MCCOLLUM'S PALSY - NEURO PA - NONCOMPLIANT WITH CPAP CKD3 - NEPHROLOGY HISTORY OF MRSA RLS, NOCTURNAL LEG CRAMPS IRON DEFICIENCY ANEMIA L-BREAST I&D ALLERGIES LATEX (FOR ALLERGY USE ONLY): ANAPHYLAXIS - ALLERGY PENICILLIN (FOR ALLERGIES USE ONLY): ANAPHYLAXIS - ALLERGY SULFA (FOR ALLERGY USE ONLY): HIVES - ALLERGY TRICOR: HIVES - ALLERGY GLUCOPHAGE: HIVES - ALLERGY LIPITOR: HIVES - ALLERGY ZOCOR: HIVES - ALLERGY FRESH PINEAPPLE: SWOLLEN LIPS/ SORES IN MOUTH - ALLERGY KEFLEX: HIVES - ALLERGY SOCIAL HISTORY GENERAL: TOBACCO USE ARE YOU A:FORMER SMOKER HOW LONG HAS IT BEEN SINCE YOU LAST SMOKED?6-12 MONTHS LATEX QUESTIONNAIRE LATEX ALLERGY : HAVE YOU EVER DEVELOPED ANY TYPE OF REACTION AFTER HANDLING LATEX PRODUCTS SUCH RUBBER GLOVES, CONDOMS, DIAPHRAGMS, BALLOONS, SOCKS, OR UNDERWEAR?YES LATEX ALLERGY : HAVE YOU EVER DEVELOPED ANY TYPE OF REACTION DURING OR AFTER DENTAL APPOINTMENT, VAGINAL/RECTAL EXAMINATION, SURGICAL PROCEDURE, OR ANY OTHER EXPOSURE?YES - PLEASE INDICATE :RUBBER GLOVES, CONDOMS, BALLOONS - PLEASE INDICATE :VAGINAL EXAM, RECTAL EXAM DATE ASKED : 11/27/2020 ACTIVE LATEX ALLERGY LATEX RISK : HAVE YOU EVER HAD ANY DIFFICULTY BREATHING OR HIVES AFTER EATING OR HANDLING ANY FRUITS, OR VEGETABLES; SUCH KIWI, BANANAS, STONE FRUITS, OR CHESTNUTSNO LATEX RISK : DO YOU HAVE A PREVIOUS PERSONAL HISTORY OF MORE THAN NINE SURGERIES, SPINA BIFIDA, OR REPEATED CATHERIZATIONS? YES - PLEASE INDICATE : > 9 SURGERIES LATEX RISK : ARE YOU FREQUENTLY EXPOSED TO LATEX PRODUCTS IN YOUR OCCUPATION?NO ALCOHOL USE: NO. LUNG CANCER SCREENING SMOKING STATUS:FORMER SMOKER IS THE PATIENT BETWEEN THE AGE OF 54 AND 76?NO BMI CARE GOAL FOLLOW-UP ABOVE NORMAL BMI FOLLOW-[facility] EDUCATION REGARDING DIET ALCOHOL SCREENING POINTS: 0, INTERPRETATION: NEGATIVE. RECREATIONAL DRUG USE DENIES. CAFFEINE CAFFEINE USE?NO SEXUAL HX HAD SEX IN THE LAST 12 MONTHS (VAGINAL, ORAL, OR ANAL)?YES WITHMEN ONLY PREVENTION STRATEGIES DISCUSSED:CONDOMS USE PROTECTION?NO HAVE YOU EVER HAD AN STD?NO HIV / HEP-C SCREENING HIV TEST OFFERED TO PATIENT:NO HEP-C TEST OFFERED TO PATIENT:NO TENRIISM [id number] NONE LANGUAGE LANGUAGES SPOKEN:SINGAPOREAN EDUCATION SOME COLLEGE. LEARNING BARRIERS / SPECIAL NEEDS CHANGE FROM LAST VISIT?NO BARRIERS TO LEARNING?NO HEARING IMPAIRED?NO VISION IMPAIRED?YES COGNITIVELY IMPAIRED?NO :CORRECTIVE LENSES READINESS TO LEARN?YES LEARNING PREFERENCES?NO LEARNING CAPABILITIES PRESENT?YES EMOTIONAL BARRIERS?NO SPECIAL DEVICES?YES :CANE, WALKER, WHEELCHAIR LEFT LEG PROSTHETIC NUTRITION HELPER NEEDED?NO OCCUPATION: UNEMPLOYED. DIET: CARBOHYDRATE CONTROLLED. EXERCISE: NO REGULAR EXERCISE. MARITAL STATUS: . OTHERS AT HOME: SPOUSE. HOUSING: OWNS HOME. REVIEW OF SYSTEMS CONSTITUTIONAL: ANY RECENT FEVER NO . CHILLS NO . WEIGHT CHANGE OF UNKNOWN REASONS NO . GASTROENTEROLOGY: NEW UNEXPLAINABLE CHANGES IN BOWEL CONTROL NO . CONSTIPATION NO . GENITOURINARY: ANY NEW CHANGE IN BLADDER CONTROL? NO . NEUROLOGY: NEW ONSET DIZZINESS OR NEUROLOGICAL CHANGES NOT MENTIONED NO . NEW NUMBNESS OR PAIN PATTERNS NOT MENTIONED AND PERTINENT TO TODAY'S VISIT NO . CARDIOLOGY: NEW CHEST PRESSURE NO . PATIENT DENIES NO . RESPIRATORY: UNEXPLAINABLE COUGH NO . NEW SHORTNESS OF BREATH NO . EXAMINATION GENERAL EXAMINATION: THE PATIENT IS ALERT, ORIENTED TIMES THREE AND COOPERATIVE. THIS IS A TELEPHONE VISIT. MRI OF THE LUMBAR SPINE DATED 10/03/2020 SHOWS STENOSIS AT MULTIPLE LEVELS. ASSESSMENTS OTHER CHRONIC PAIN - G89.29 LUMBAR DISC DISEASE WITH RADICULOPATHY - M51.16 NEUROPATHIC PAIN OF LOWER EXTREMITY - M79.2 PHANTOM LIMB SYNDROME WITH PAIN - G54.6 HISTORY OF MRSA INFECTION - Z86.14 HISTORY OF FACTOR V LEIDEN MUTATION - Z86.2 HISTORY OF EDEMA - Z87.898 HISTORY OF DIABETES MELLITUS - Z86.39 HISTORY OF RENAL INSUFFICIENCY - Z87.448 HISTORY OF ASTHMA - Z87.09 BELOW KNEE AMPUTATION - S88.119A RADICULOPATHY, LUMBAR REGION - M54.16 LUMBAR SPINAL STENOSIS - M48.061 TREATMENT OTHER CHRONIC PAIN PAIN PROCEDURE LOGDATE OF PROCEDURE11/28/20PROCEDURE:RIGHT TRANSFORMAINAL EPIDURAL STEROID INJECTION L3-L4, L4-L5, L5-S1 WITH IV SEDATIONAMOUNT OF PRE SEDATEFENTANYL 100 MCG, VERSED 2MGRESULT:ONLY WORKED FOR A FEW DAYS NOTES: PAT DONE, NO VITALS DONE FOR VIRTUAL VISIT. Silvina CLAYTON CTO. LUMBAR DISC DISEASE WITH RADICULOPATHY CLINICAL NOTES: I DISCUSSED ALTERNATIVES WITH MS. FORD. THE PATIENT IS NOT A CANDIDATE FOR SURGERY DUE TO HER COMORBIDITIES. THE PATIENT IS STILL INTERESTED IN THE DORSAL COLUMN STIMULATOR TRIAL. WE WILL REQUEST AUTH FOR THE TRIAL. TOTAL TIME OF THE VISIT WAS 25 MINUTES. THE PATIENT REPORTS UNDERSTANDING AND AGREES WITH THE PLAN. IBELINDA, DOCUMENTED THE ABOVE INFORMATION ACTING A SCRIBE FOR DR. SIMMONS. I HAVE REVIEWED THE ABOVE DOCUMENT, WRITTEN BY BELINDA BOLDEN, REGISTERED NURSE RENAL, AND I VERIFY THAT IT IS ACCURATE. PROCEDURE CODES 85455 TELEMEDICINE PHONE E/M BY PHYS 21-30 MIN DISPOSITION & COMMUNICATION FOLLOW UP REQUEST AUTH FOR DORSAL COLUMN STIMULATOR (REASON: REQUEST AUTH FOR DORSAL COLUMN STIMULATOR) ELECTRONICALLY SIGNED BY RONNIE SIMMONS MD, MD ON 12/16/2020 AT 04:24 PM EST DISCLAIMER : THIS IS A VISIT SUMMARY EXTRACTED FROM THE [employer] CHART. IT IS NOT A COPY OF THE [employer] PROGRESS NOTE. LAURIE
== END ==
LOC: M PAIN 15:00
PROVIDERS: ATTEND Anesthesiology
DX: M51.16 Intervertebral disc disorders with radiculopathy, lumbar region (principal); G89.29 Other chronic pain; M79.2 Neuralgia and neuritis, unspecified; Z86.14 Personal history of Methicillin resistant Staphylococcus aureus infection; Z86.2 Personal history of diseases of the blood and blood-forming organs and certain disorders involving the immune mechanism; Z87.898 Personal history of other specified conditions; Z86.39 Personal history of other endocrine, nutritional and metabolic disease; Z87.448 Personal history of other diseases of urinary system; Z87.09 Personal history of other diseases of the respiratory system; S88.119A Complete traumatic amputation at level between knee and ankle, unspecified lower leg, initial encounter; M48.061 Spinal stenosis, lumbar region without neurogenic claudication; E11.9 Type 2 diabetes mellitus without complications; J44.9 Chronic obstructive pulmonary disease, unspecified; M79.7 Fibromyalgia; K21.9 Gastro-esophageal reflux disease without esophagitis; G47.33 Obstructive sleep apnea (adult) (pediatric); G25.81 Restless legs syndrome; Z86.59 Personal history of other mental and behavioral disorders; Z87.891 Personal history of nicotine dependence; Z88.0 Allergy status to penicillin; Z88.1 Allergy status to other antibiotic agents; Z88.2 Allergy status to sulfonamides; Z88.8 Allergy status to other drugs, medicaments and biological substances; Z91.018 Allergy to other foods; Z91.040 Latex allergy status; Z79.01 Long term (current) use of anticoagulants; Z79.4 Long term (current) use of insulin; Z79.891 Long term (current) use of opiate analgesic; Z79.899 Other long term (current) drug therapy

== ENCOUNTER → 2020-12-18 | Outpatient (REF) | payer OTHER ==
[~2020-12-18] MED LIST changes: -ALBUTEROL SULFATE 2.5 MG/0.5 ML INH NEB SOLN INH PRN; -EPINEPHrine INJ 1 MG/ML 1ML AMP IM PRN; +NAPR-849 PO; -NAPR250T4 PO; -diphenhydrAMINE 50MG/ML VIAL (J1200) IV PRN; -methylPREDNISolone 125MG 2ML VIAL IV PRN
== END ==
LOC: M LAB REF 15:09
PROVIDERS: ATTEND Surgery
DX: R51.9 Headache, unspecified (principal)

== ENCOUNTER 2020-12-19 10:14 | Outpatient (CLI) | payer OTHER ==
[~2020-12-19] VITALS: Ht 177.8 cm; Wt 116.0 kg
[~2020-12-19 10:14] MED LIST changes: +ALBUTEROL SULFATE 2.5 MG/0.5 ML INH NEB SOLN INH PRN; +EPINEPHrine INJ 1 MG/ML 1ML AMP IM PRN; +diphenhydrAMINE 50MG/ML VIAL (J1200) IV PRN; +methylPREDNISolone 125MG 2ML VIAL IV PRN
[2020-12-19 10:30] VITALS: BP 159/77
[2020-12-19] MEDS ORDERED: IRON SUCROSE 300 MG in NS 250 ML IV ONE (10:30)
[2020-12-19] MEDS ORDERED: IRON SUCROSE 25 MG in NS 25 ML IV ONE (10:30)
[2020-12-19] MEDS ORDERED: diphenhydrAMINE 50MG/ML VIAL (J1200) IV ONE (11:10)
[2020-12-19 13:00] VITALS: BP 192/87
[2020-12-19 14:00] VITALS: BP 185/90
[2020-12-19 15:00] VITALS: BP 178/84
[2020-12-19 16:30] VITALS: BP 183/84
== END 2020-12-19 16:30 | disposition home or self-care (01) ==
LOC: M INFU 10:14
PROVIDERS: ATTEND Internal Medicine Nephrology
DX: D50.9 Iron deficiency anemia, unspecified (principal); Z88.0 Allergy status to penicillin; Z88.1 Allergy status to other antibiotic agents; Z88.4 Allergy status to anesthetic agent; Z88.8 Allergy status to other drugs, medicaments and biological substances; Z91.040 Latex allergy status
CPT/HCPCS: 96365; 96366; 96375; J1200; J1756

== ENCOUNTER → 2021-01-02 | Outpatient (CLI) | payer OTHER ==
[~2021-01-02] MED LIST changes: -ALBUTEROL SULFATE 2.5 MG/0.5 ML INH NEB SOLN INH PRN; +DEPA1TAB3 PO; -EPINEPHrine INJ 1 MG/ML 1ML AMP IM PRN; +HYDR-4517 PO; +XELP0.00 OU; -diphenhydrAMINE 50MG/ML VIAL (J1200) IV PRN; -methylPREDNISolone 125MG 2ML VIAL IV PRN
== END ==
LOC: M PLARAD 14:01
PROVIDERS: ATTEND Family Medicine
DX: R51.9 Headache, unspecified (principal)

== ENCOUNTER 2021-01-06 12:16 | Inpatient (IN) | payer OTHER ==
[~2021-01-06] VITALS: Ht 177.8 cm; Wt 133.6 kg
[~2021-01-06 12:16] MED LIST changes: -DEPA1TAB3 PO; -HYDR-4517 PO; -XELP0.00 OU
--- NOTE | 2021-01-06 13:43 | REP ---
INDICATION: DYSPNEA/COUGH. COMPARISON: 05/27/2020. TECHNIQUE: SINGLE PORTABLE AP VIEW OF THE CHEST WAS PERFORMED. FINDINGS: THERE IS NO ACUTE INFILTRATE OR PULMONARY EDEMA. LUNGS ARE CLEAR. HEART IS NOT SIGNIFICANTLY ENLARGED. MEDIASTINAL SILHOUETTE IS UNREMARKABLE. THE VISUALIZED OSSEOUS STRUCTURES ARE INTACT. IMPRESSION: NO ACUTE PULMONARY DISEASE. <Electronically signed by Jomar Akbar > 01/06/21 [id number]
[2021-01-06] MEDS ORDERED: LIDOCAINE 1% MDV 20ML VIAL As Ordered ONE ×3 (14:22→16:17)
[2021-01-06] MEDS ORDERED: ISOVUE-300 61% 50ML VIAL As Ordered ONE (14:49)
[2021-01-06] MEDS ORDERED: POTASSIUM CHLORIDE 10 MEQ SR TABLET PO ONE (15:00)
[2021-01-06] MEDS ORDERED: XELP0.00 OU (15:51)
[2021-01-06] MEDS ORDERED: AMLO2.5T3 PO (16:00)
[2021-01-06] MEDS ORDERED: VALA1TAB5 PO (16:00)
[2021-01-06] MEDS ORDERED: DEPA1TAB3 PO (16:00)
[2021-01-06] MEDS ORDERED: ROPI4TAB3 PO (16:00)
[2021-01-06] MEDS ORDERED: NYST1POW9 TOP (16:00)
[2021-01-06] MEDS ORDERED: TORS20TA2 PO (16:00)
[2021-01-06] MEDS ORDERED: HYDR-4517 PO (16:01)
[2021-01-06] MEDS ORDERED: NORCO, ANEXSIA 5/325MG TABLET (HYDROcodone/ACETAMINOPHEN) PO ONE (16:55)
--- NOTE | 2021-01-06 16:59 | REP ---
INDICATION: eval central line. COMPARISON: Comparison chest x-ray January 06, 2021.. TECHNIQUE: Portable AP upright chest radiograph. FINDINGS: A right subclavian central catheter is seen with its tip in the expected location of superior vena cava. The lungs are well inflated and clear. Cardiomediastinal silhouette is unremarkable. Pulmonary vasculature is not increased. No acute bony abnormality is seen. IMPRESSION: Right central venous line in place. Otherwise no active disease. No complication seen. <Electronically signed by Loi Ruiz > 01/06/21 [id number]
[2021-01-06] MEDS ORDERED: LIDOCAINE 1% MDV 20ML VIAL SC ONE (17:05)
[2021-01-06 17:08] LABS: BASO # 0.1 10^3/uL (0.0-0.2); BASO % 0.8 % (0.0-1.0); EOS # 0.2 10^3/uL (0.0-0.5); EOS % 2.1 % (0.0-3.0); HEMATOCRIT 35.4 % (36.0-47.0); HEMOGLOBIN 11.9 g/dl (12.0-15.5); MEAN CORPUSCULAR HGB CONC 33.6 g/dl (32.0-36.5); MEAN CORPUSCULAR VOLUME 86.1 fl (80.0-96.0); MONO # 1.1 10^3/uL (0.0-0.8); MONO % 10.9 % (2.0-8.0); NEUTROPHILS # 6.4 10^3/uL (1.5-8.5); NEUTROPHILS % 62.3 % (36.0-66.0); PLATELET COUNT, AUTOMATED 219 10^3/uL (150-450); RED BLOOD COUNT 4.11 10^6/uL (4.00-5.40); WHITE BLOOD COUNT 10.2 10^3/uL (4.0-10.0)
[2021-01-06 17:53] LABS: BILIRUBIN,DIRECT 0.2 MG/DL (0.0-0.2); BILIRUBIN,TOTAL 0.2 MG/DL (0.2-1.0); CALCIUM LEVEL 7.9 MG/DL (8.5-10.1); CK-MB VALUE MASS 15.9 NG/ML (<3.6); CREATININE FOR GFR 1.45 MG/DL (0.55-1.30); GLOMERULAR FILTRATION RATE 40.5 (>51); MB/CK RELATIVE INDEX 0.92 (< OR =4); POTASSIUM SERUM 3.3 MEQ/L (3.5-5.1); THYROID STIMULATING HORMONE 3.28 uIU/ML (0.358-3.740); TOTAL PROTEIN 5.2 GM/DL (6.4-8.2); TROPONIN I 0.66 NG/ML (< 0.10)
[2021-01-06] MEDS ORDERED: FUROSEMIDE 40MG/4ML VIAL (J1940) IV ONE (18:05)
--- NOTE | 2021-01-06 18:13 | REP ---
INDICATION: need IV access. COMPARISON: None. TECHNIQUE: The procedure was performed under the direct supervision of Dr. Akbar. The risks and benefits of the procedure were explained to the patient and informed consent was obtained. The right brachial vein was localized using ultrasound guidance. The skin was prepped and draped in a sterile fashion. 1% lidocaine was used as a local anesthetic. Using ultrasound guidance the brachial vein was cannulated and a 0.018 guidewire was inserted, however the guidewire was unable to be advanced much beyond the level of mid humerus. This may be due to spasm or occlusion. Multiple attempts were tried. There were no other viable veins to attempt. The patient tolerated the procedure well and there were no immediate complications. 1.2 minutes of fluoro time was utilized for this procedure. FINDINGS: None IMPRESSION: Unsuccessful attempt at PICC line insertion right brachial vein. <Electronically signed by Aries Nolasco > 01/06/21 [id number] <Electronically signed by Jomar Akbar > 01/06/21 [id number]
[2021-01-06 18:31] LABS: RSV AMPLIFICATION NEGATIVE (NEGATIVE)
[2021-01-06] MEDS ORDERED: ACETAMINOPHEN TAB 650MG DOSE (2X325MG) PO PRN (19:50)
[2021-01-06] MEDS ORDERED: GLUCOSE 4GM CHEW TABLET PO PRN (19:50)
[2021-01-06] MEDS ORDERED: DEXTROSE 50% 50 ML SYRINGE IV PRN (19:50)
[2021-01-06] MEDS ORDERED: MOM 30ML SUSPENSION UDC PO PRN (19:50)
[2021-01-06] MEDS ORDERED: MAALOX 30 ML SUSP *UDC PO PRN (19:50)
[2021-01-06] MEDS ORDERED: GLUCAGON INJ 1MG VIAL SC PRN (19:50)
--- NOTE | 2021-01-06 19:56 | HPEPDOC ---
[facility] Medical History & Physical Date of Admission Jan 06, 2021 Date of Service: Jan 06, 2021 Primary Care Physician: RIAZ LOPEZ MD Attending Physician: SINCERE ARAGON MD History and Physical TIME OF SERVICE: 905pm CHIEF COMPLAINT: sent by PCP HISTORY OF PRESENT ILLNESS: This 50 yr old F was sent by her PCP for evaluation of her kidneys. The patient gained 37 lbs in 10 days which didnt improve despite increasing the dose of her diuretic. She has had swelling affecting her arms and legs. The swelling in her lower extremities is so severe that she cant put her prosthetic on her stump, she has pain when she opens and closes her hands, and she also has dyspnea that is worse when she tries to move around while sitting in her wheelchair. Despite receiving Lasix for presumed CHF in the ER this evening she hasnt voided; she last voided this morning. She has also been having episodes of chest heavinesslike something is sitting on her chest which is worse when she takes deep breaths. She has also been feeling a bit confused and lethargic; she missed eating lunch today while traveling to various appointments and the hospital. Because her troponins were elevated discussed the patients case w who recommended trending trops and ordering an Echo. Because of difficulties with access had to place a right sided central line. REVIEW OF SYSTEMS: 12-point review of systems negative except as listed in HPI PAST MEDICAL/ SURGICAL HISTORY: IDDM/brittle DM w gastroparesis, retinopathy and neuropathy (attends [facility]) CKD2 w proteinuria Migraines Hx of cellulitis Chronic HTN / HFpEF Asthma Bipolar disorder Factor V Leiden deficiency w hx of DVTs in upper and lower extremities on Eliquis L2/L5 spinal stenosis Hypergammaglobulinemia Fibromyalgia Spinabifida Right TMJ dysfunction Psoriasis RLS Temporal lobe seizures Hiatial hernia w GERD Fatty liver Hx of rectosigmoid ischemic colitis Hx of left sided [place] palsy Hx of stool transplant for C.diff L BKA to manage chronic wound infection w osteomyelitis R foot amputation / Hx of Charcot foot Class 3 obesity Cholecystectomy Hysterectomy Cervical discectomy & fusion R breast lumpectomy R ulnar / carpal tunnel release Appendectomy SOCIAL HISTORY: She smokes, and doesnt use alcohol FAMILY HISTORY: Father- CAD / Mother osteoporosis, HTN, CVA / multiple family members -DM ALLERGIES: Please see below. HOME MEDICATIONS: Please see below. PHYSICAL EXAMINATION: Vital Signs Date Time Temp Pulse Resp B/P (MAP) Pulse Ox O2 Delivery O2 Flow Rate FiO2 01/06/21 12:16 98.1 100 18 211/119 (149) 100 Room Air GENERAL APPEARANCE: well nourished and developed / NAD HEENT: EOMI CARDIOVASCULAR: RRR/ NMRG LUNGS: not coughing or using accessory muscles/ CTAB on RA ABDOMEN: obese /soft & NT w palpation MUSCULOSKELETAL: NCAT / + pitting edema affecting arms and legs INTEGUMENT: she is not cyanotic, not flushed or pale NEUROLOGICAL: CN 2-12 intact / speech not dysarthric PSYCHIATRIC: A& O / a bit listless but able to follow conversation and provide appropriate answers LABORATORY DATA: 01/06/21 16:48 POC Glucose (Misc Panel) 113H, POC Sodium (Misc Panel) 143, POC Potassium (Misc Panel) 3.0L, POC Chloride (Misc Panel) 108, POC Total CO2 (Misc Panel) 27.0, POC Blood Urea Nitrogen (Misc Panel 25, POC Ionized Calcium (Misc Panel) 4.1L, POC Creatinine (Misc Panel) 1.4H, POC Hematocrit (Misc Panel) 32.0L 01/06/21 16:48: Immature Granulocyte % (Auto) 3.9H, Neutrophils (%) (Auto) 62.3, Lymphocytes (%) (Auto) 20.0L, Monocytes (%) (Auto) 10.9H, Eosinophils (%) (Auto) 2.1, Basophils (%) (Auto) 0.8, Neutrophils # (Auto) 6.4, Lymphocytes # (Auto) 2.0, Monocytes # (Auto) 1.1H, Eosinophils # (Auto) 0.2, Basophils # (Auto) 0.1, Nucleated Red Blood Cells % (auto) 0.0, Anion Gap 9, Glomerular Filtration Rate 40.5L, Calcium Level 7.9L, Total Bilirubin 0.2, Direct Bilirubin 0.2, Aspartate Amino Transf (AST/SGOT) 162H, Alanine Aminotransferase (ALT/SGPT) 70, Alkaline Phosphatase 152H, Total Creatine Kinase 1737H, Creatine Kinase MB 15.9H, Creatine Kinase MB Relative Index 0.92, Troponin I 0.66H, WR-Hgj-V-Type Natriuretic Peptide 5107H, Total Protein 5.2L, Albumin 2.0L, Albumin/Globulin Ratio 0.6L, Thyroid Stimulating Hormone (TSH) 3.280, Free Thyroxine 1.00 IMAGING: Chest xray #1 IMPRESSION: NO ACUTE PULMONARY DISEASE. Chest xray #2 IMPRESSION: Right central venous line in place. Otherwise no active disease. No complication seen. MICROBIOLOGY: Coronavirus (COVID-19)(PCR) NEGATIVE, Influenza Type A (RT-PCR) NEGATIVE, Influenza Type B (RT-PCR) NEGATIVE, Respiratory Syncytial Virus (PCR) NEGATIVE ASSESSMENT: is a 50 yr old F w hx of multiple medical problems including brittle DM, CKD2, HTN, HFpEF, Asthma obesity, and seizures who was sent by her PCP for evaluation of weight gain, dyspnea and chest heaviness; she will be admitted primarily for management of fluid overload likely 2/2 acute HFpEF & HTN Urgency. PLAN: 1 Acute HFpEF / Anasarca She hasnt voided despite IV Lasix and seems to have resistance to lasix Plan:admit to PCU / elevate head of bed to 50 degrees / f/u Is/Os daily weighs / salt and fluid restriction / c/w IV Lasix, suspect the day time team will need to add metolazone to potentiate the effect of the lasix and or IV nitro to reduce afterload (the day time team can d/w Cardio in the AM) / hold PO d iuretics / f/u Echo and trops 2. HTN Urgency vs Emergency She has chest heaviness + elevated trop and slight increase in Cr from baseline Plan: will aim for BP of <180/100 tonight / resume Amlodipine + IV lasix / low salt diet 3 Elevated Troponin Possibly due to CO bc of chest heaviness vs HTN emergency EKG showed NSR w a rate of [address] changes Plan: telemetry /trend trops / f/u lipids & Echo 4 Hypoglycemia / IDDM/brittle DM w gastroparesis, retinopathy and neuropathy Plan: f/u accuchecks / hypoglycemia protocol / sliding scale insulin / f/u A1C / switch from Tresiba 320 units daily to levemir 50 units BID for now 5 Hypokalemia Received KCL in the ER Plan: f/u Mg 6 CKD2 w proteinuria Plan: f/u BMP 7 N Anemia Plan: f/u CBC 8 Temporal lobe seizures Plan: Divalproex 9 Asthma Per pt stable Plan: Montelukast & Albuterol 12 Transaminitis 2/2 Fatty liver Plan: trend LFTs 13 Factor V Leiden deficiency / DVTs Plan: Eliquis 14 L2/L5 spinal stenosis / Fibromyalgia / Right TMJ dysfunction Plan: Cyclobenzaprine 16 Bipolar disorder Plan: Divalproex 17 RLS Plan: Pregabalin & Ropinirole 18 Hiatal hernia w GERD Plan: PPI 19 Class 3 obesity Complicates care DVT n/a on DOAC Dispo: home after more than 2 midnights stay Home Medications Scheduled Allopurinol (Allopurinol) 100 Mg Tablet, 300 MG PO QHS Amlodipine Besylate (Amlodipine Besylate) 2.5 Mg Tablet, 2.5 MG PO DAILY Apixaban (Eliquis) 5 Mg Tab, 5 MG PO BID Dexlansoprazole (Dexilant) 60 Mg Cap, 60 MG PO QHS Divalproex Sodium (Depakote) 500 Mg Tablet.dr, 500 MG PO BID Duloxetine Hcl (Duloxetine HCl) 60 Mg Cap, 120 MG PO QHS Ergocalciferol (Vitamin D2) (Vitamin D2) 50,000 Units Cap, 50,000 UNITS PO QWEEK TUESDAY Insulin Degludec (Tresiba Flextouch U-200) 200 Unit/Ml Inj, 320 UNIT SC QHS Insulin Lispro (Humalog Kwikpen U-200) 200 Unit/1 Ml Insuln.pen, 1 DOSE SC ACHS PER SLIDING SCALE Lactobacillus Acidophilus (Probiotic) 1 Each Capsule, 1 CAP PO QHS Latanoprost (Xelpros) 0.005% 2.5ML Drps.emuls, 1 DROP OU QHS Magnesium Chloride (Mag64) 64 Mg Tabcr, 64 MG PO QHS Montelukast Sodium (Montelukast Sodium) 10 Mg Tab, 10 MG PO QHS Nystatin (Nystatin Powder) 15 Gm Powder, 1 APLCT TOP DAILY APPLY TO GROIN/UNDER BREASTS Pregabalin (Lyrica) 300 Mg Cap, 300 MG PO BID Ropinirole HCl (Ropinirole HCl) 4 Mg Tablet, 4 MG PO BID TAKES 2000/0000 Tamsulosin HCl (Flomax) 0.4 Mg Cap, 0.4 MG PO QHS Torsemide (Torsemide) 20 Mg Tablet, 100 MG PO BID Trazodone HCl (Trazodone HCl) 100 Mg Tablet, 200 MG PO QHS Scheduled PRN Albuterol Sulf (Albuterol Sulfate) 2.5 Mg/3 Ml Vial.neb, 2.5 MG INH Q4H PRN for SHORTNESS OF BREATH Cyclobenzaprine HCl (Cyclobenzaprine HCl) 10 Mg Tab, 10 MG PO TID PRN for MUSCLE SPASMS Cyclosporine (Restasis) 0.05 % Emu, 1 DROP OU BID PRN for DRY EYES Epinephrine (Epipen 2-Thomas) 0.3 Mg/0.3 Ml Inj, 0.3 MG SC PRN PRN for ALLERGIC REACTION Hydrocodone/Acetaminophen (Hydrocodone-Acetamin 10-325 mg) 1 Each Tablet, 1 TAB PO Q4H PRN for PAIN Methylphenidate HCl (Methylphenidate ER (LA)) 20 Mg Cpbp.50.50, 20 MG PO DAILY PRN for ADHD Valacyclovir HCl (Valacyclovir) 1,000 Mg Tablet, 1 GM PO DAILY PRN for SHINGLES Allergies Coded Allergies: Latex, Natural Rubber (Verified Allergy, Severe, anaphylaxis, 09/18/20) Penicillins (Verified Allergy, Severe, anaphylaxis, CEPHALOSPORINS [place], 09/18/20) Sulfa (Sulfonamide Antibiotics) (Verified Allergy, Intermediate, hives, 09/18/20) clindamycin (Verified Allergy, Intermediate, Rash/mouth sores/BURNING OF SKIN, 09/18/20) fenofibrate (Verified Allergy, Mild, rash, 09/18/20) metformin (Verified Allergy, Mild, rash, 09/18/20) pineapple (Verified Allergy, Mild, swollen lips/mouth sores, 09/18/20) SURGICAL ANGIE (Verified Allergy, Unknown, 09/18/20) A-FIB/CHADSVASC A-FIB History Current/History of A-Fib/PAF?: No Current PO Anticoag Therapy: No SINCERE ARAGON MD Jan 06, 2021 19:56
--- NOTE | 2021-01-06 20:11 | ECGEPIP ---
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
[2021-01-06 20:15] LABS: MAGNESIUM LEVEL 1.8 MG/DL (1.8-2.4)
[2021-01-06] MEDS: HumaLOG INSULIN (NovoLOG) PER UNIT SC SCH (20:59)
[2021-01-06 21:50] VITALS: BP 158/89
[2021-01-06] MEDS ORDERED: ENTER DRUG NAME HERE (PATIENT'S OWN MED) OU SCH (22:40)
[2021-01-06] MEDS ORDERED: ALBUTEROL SULFATE 2.5 MG/0.5 ML INH NEB SOLN INH PRN (22:40)
[2021-01-06] MEDS ORDERED: CYCLOBENZAPRINE 10MG TABLET PO PRN (22:40)
[2021-01-06] MEDS ORDERED: valACYclovir HCL 500 MG TAB PO PRN (22:40)
[2021-01-06] MEDS: LEVEMIR (INSULIN DETEMIR) 1 UNITS/0.01ML SC SCH (22:40)
[2021-01-06] MEDS ORDERED: PILL CUTTER 1 EACH XX PRN (23:05)
[2021-01-07] VITALS (18 sets, daily range): BP systolic 117–147; BP diastolic 62–92; O2SAT 94–99
[2021-01-07] MEDS: LATANOPROST 0.005% OPHTH SOLN 2.5 ML OU SCH ×2 (00:56→21:18)
[2021-01-07] MEDS: OMEPRAZOLE 20 MG CAP PO SCH ×3 (00:56→21:16)
[2021-01-07] MEDS: traZODone 100 MG TAB PO SCH ×2 (00:57→21:17)
[2021-01-07] MEDS: DIVALPROEX 500 MG TAB PO SCH ×3 (00:57→21:16)
[2021-01-07] MEDS: LACTOBACILLUS ACIDOPHILUS CAP (BACID) PO SCH ×2 (00:57→21:17)
[2021-01-07] MEDS: DULoxetine 30 MG CAP (CYMBALTA) PO SCH ×2 (00:57→21:16)
[2021-01-07] MEDS: allopurinoL 300 MG TAB PO SCH ×2 (00:58→21:18)
[2021-01-07] MEDS: PREGABALIN 100 MG CAP (LYRICA) PO SCH ×3 (00:58→21:17)
[2021-01-07] MEDS: APIXABAN 5 MG TAB (ELIQUIS) PO SCH ×3 (00:58→21:17)
[2021-01-07] MEDS: MAGNESIUM OXIDE 400MG TAB (MAG-OX) PO SCH ×2 (00:58→21:17)
[2021-01-07] MEDS: ANEXSIA, NORCO 7.5MG/325MG TABLET(HYDROCODONE/APAP) PO PRN ×2 (00:59→09:30)
[2021-01-07] MEDS: MONTELUKAST 10 MG TAB PO SCH ×2 (00:59→21:17)
[2021-01-07] MEDS: TAMSULOSIN 0.4 MG CAP PO SCH ×2 (00:59→21:17)
[2021-01-07] MEDS: rOPINIRole 1MG TAB PO SCH ×2 (01:06→21:17)
[2021-01-07] MEDS: FUROSEMIDE 40MG/4ML VIAL (J1940) IV SCH ×2 (01:06→05:39)
[2021-01-07 05:32] LABS: BASO # 0.1 10^3/uL (0.0-0.2); BASO % 0.6 % (0.0-1.0); EOS # 0.2 10^3/uL (0.0-0.5); EOS % 1.9 % (0.0-3.0); HEMATOCRIT 32.6 % (36.0-47.0); HEMOGLOBIN 10.7 g/dl (12.0-15.5); LYMPH % 11.9 % (24.0-44.0); MEAN CORPUSCULAR HEMOGLOBIN 29.2 pg (27.0-33.0); MEAN CORPUSCULAR HGB CONC 32.8 g/dl (32.0-36.5); MEAN CORPUSCULAR VOLUME 88.8 fl (80.0-96.0); MONO % 12.1 % (2.0-8.0); NEUTROPHILS # 6.1 10^3/uL (1.5-8.5); NEUTROPHILS % 70.4 % (36.0-66.0); PLATELET COUNT, AUTOMATED 176 10^3/uL (150-450); RED BLOOD COUNT 3.67 10^6/uL (4.00-5.40); WHITE BLOOD COUNT 8.6 10^3/uL (4.0-10.0)
[2021-01-07] MEDS: HumaLOG INSULIN (NovoLOG) PER UNIT SC SCH ×7 (05:34→23:53)
[2021-01-07 05:50] LABS: HEMOGLOBIN A1c 9.9 %
[2021-01-07 06:07] LABS: ALBUMIN 1.8 GM/DL (3.2-5.2); BILIRUBIN,TOTAL 0.2 MG/DL (0.2-1.0); CALCIUM LEVEL 7.7 MG/DL (8.5-10.1); CHOLESTEROL RISK RATIO 5.326 (<5); CREATININE FOR GFR 1.71 MG/DL (0.55-1.30); GLOMERULAR FILTRATION RATE 33.5 (>51); POTASSIUM SERUM 3.6 MEQ/L (3.5-5.1); TOTAL PROTEIN 4.5 GM/DL (6.4-8.2); TROPONIN I 0.64 NG/ML (< 0.10)
[2021-01-07] MEDS ORDERED: POLYVINYL ALCOHOL OPHTH SOLN 15 ML(LIQUITEARS) OU PRN (08:25)
[2021-01-07] MEDS: LEVEMIR (INSULIN DETEMIR) 1 UNITS/0.01ML SC SCH (09:00)
[2021-01-07] MEDS: metOLazone 5 MG TAB PO SCH (09:04)
[2021-01-07] MEDS: ASPIRIN 81MG ENTERIC TABLET PO SCH (09:06)
[2021-01-07] MEDS: NYSTATIN 100,000 UNITS/GM TOPICAL PWD 15 GM TOP SCH (09:14)
[2021-01-07] MEDS: METHYLPHENIDATE ER 18 MG TABLET (CONCERTA) PO SCH (09:20)
--- NOTE | 2021-01-07 09:31 | IPNPDOC ---
Subjective Date Seen The patient was seen on 01/07/21. Subjective Chief Complaint/HPI Complains of swelling in her legs, thighs and lower abdomen. Denies any SOB. Says just feels very heavy and bloated. Objective Physical Examination General Exam: Positive: Alert, Cooperative, No Acute Distress Eye Exam: Positive: PERRLA, Conjunctiva & lids normal, EOMI; Negative: Sclera icteric ENT Exam: Positive: Atraumatic, Mucous membr. moist/pink, Pharynx Normal Neck Exam: Positive: Supple; Negative: JVD, thyromegaly Chest Exam: Positive: Clear to auscultation, Normal air movement Heart Exam: Positive: Rate Normal, Regular Rhythm, Normal S1, Normal S2; Negative: Murmurs, Rubs Abdomen Exam: Positive: Normal bowel sounds, Soft, Other (obese with parietal edema); Negative: Tenderness Extremity Exam: Positive: Edema; Negative: Clubbing, Cyanosis Assessment /Plan Assessment This is a 50 yr old F w hx of multiple medical problems including brittle DM, CKD3, HTN, HFpEF, Asthma obesity, seizures, migraine, chronic back pain on narcotics who was sent by her PCP for evaluation of weight gain, dyspnea and chest heaviness; she will be admitted for management of fluid overload likely 2/2 acute HFpEF & HTN Urgency. Hypoalbuminemia/ Anasarca/ diastolic CHF exacerbation lasix and metolozone and will add albumin. HTN Urgency resolved will stop amlodipine to give good Bp for aggressive diuresis. 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 sugars low in 50s. Will hold levemir this am also on lispro sliding scale. lyrica, cymbalta Hypokalemia resolved CKD stage 3 Baseline likely 1.6 to 1.8 Anemia/ iron def/ anemia of chronic disease hb at goal and stable. h/o Temporal lobe seizures in none recently, on valporate. Migraine Divalproex Asthma Per pt stable Montelukast & Albuterol Transaminitis likely due to hepatic congestion from CHF, fatty liver Factor V Leiden deficiency / recurrent DVTs Eliquis Chronic back pain and neck pain cervical DDD s/p discetomy and fusion. L2/L5 spinal stenosis / Fibromyalgia / bilateral TMJ dysfunction/ spina bifida occulta/ thoracic DDD Cyclobenzaprine, lyrica, cymbalta, norco Bipolar disorder/ OCD/Anxiety Divalproex RLS Ropinirole Hiatal hernia w GERD PPI morbid obesity with BMI of 43 Complicates care Glaucoma home eye drops H/o urinary retention on flomax PA does not use CPAP H/o C. diff with stool transplant. Hypogammaglobulinemia/ CVID H/o bilateral carpal tunnel syn with b/l carpal tunnel release H/O left [place] palsy Plan/VTE VTE Prophylaxis Ordered?: Yes VS, I&O, 24H, Fishbone Vital Signs/I&O Vital Signs Date Time Temp Pulse Resp B/P (MAP) Pulse Ox O2 Delivery O2 Flow Rate FiO2 01/07/21 04:00 97.0 72 18 117/63 (81) 95 Room Air I&O- Last 24 Hours up to 6 AM 01/07/21 06:00 Intake Total 120 ml Output Total 300 ml Balance -180 ml Laboratory Data 24H LABS Laboratory Tests 2 01/06/21 13:20: POC Glucose (Misc Panel) 113H, POC Sodium (Misc Panel) 143, POC Potassium (Misc Panel) 3.0L, POC Chloride (Misc Panel) 108, POC Total CO2 (Misc Panel) 27.0, POC Blood Urea Nitrogen (Misc Panel 25, POC Ionized Calcium (Misc Panel) 4.1L, POC Creatinine (Misc Panel) 1.4H, POC Hematocrit (Misc Panel) 32.0L 01/06/21 16:48: Immature Granulocyte % (Auto) 3.9H, Neutrophils (%) (Auto) 62.3, Lymphocytes (%) (Auto) 20.0L, Monocytes (%) (Auto) 10.9H, Eosinophils (%) (Auto) 2.1, Basophils (%) (Auto) 0.8, Neutrophils # (Auto) 6.4, Lymphocytes # (Auto) 2.0, Monocytes # (Auto) 1.1H, Eosinophils # (Auto) 0.2, Basophils # (Auto) 0.1, Nucleated Red Blood Cells % (auto) 0.0, Anion Gap 9, Glomerular Filtration Rate 40.5L, Calcium Level 7.9L, Magnesium Level 1.8, Total Bilirubin 0.2, Direct Bilirubin 0.2, Aspartate Amino Transf (AST/SGOT) 162H, Alanine Aminotransferase (ALT/SGPT) 70, Alkaline Phosphatase 152H, Total Creatine Kinase 1737H, Creatine Kinase MB 15.9H, Creatine Kinase MB Relative Index 0.92, Troponin I 0.66H, FZ-Tdi-G-Type Natriuretic Peptide 5107H, Total Protein 5.2L, Albumin 2.0L, Albumin/Globulin Ratio 0.6L, Thyroid Stimulating Hormone (TSH) 3.280, Free Thyroxine 1.00 01/06/21 17:41: Coronavirus (COVID-19)(PCR) NEGATIVE, Influenza Type A (RT-PCR) NEGATIVE, Inf luenza Type B (RT-PCR) NEGATIVE, Respiratory Syncytial Virus (PCR) NEGATIVE 01/06/21 20:18: Bedside Glucose (Misc Panel) 145H 01/06/21 23:09: Troponin I 0.81#H 01/07/21 01:09: Bedside Glucose (Misc Panel) 43L 01/07/21 02:07: Bedside Glucose (Misc Panel) 59L 01/07/21 03:18: Bedside Glucose (Misc Panel) 73 01/07/21 04:59: Immature Granulocyte % (Auto) 3.1H, Neutrophils (%) (Auto) 70.4H, Lymphocytes (%) (Auto) 11.9L, Monocytes (%) (Auto) 12.1H, Eosinophils (%) (Auto) 1.9, Basop hils (%) (Auto) 0.6, Neutrophils # (Auto) 6.1, Lymphocytes # (Auto) 1.0L, Monocytes # (Auto) 1.0H, Eosinophils # (Auto) 0.2, Basophils # (Auto) 0.1, Nucleated Red Blood Cells % (auto) 0.0, Anion Gap 6L, Glomerular Filtration Rate 33.5L, Estimated Mean Plasma Glucose 237H, Hemoglobin A1c 9.9, Calcium Level 7.7L, Total Bilirubin 0.2, Aspartate Amino Transf (AST/SGOT) 66H, Alanine Aminotransferase (ALT/SGPT) 54, Alkaline Phosphatase 126H, Troponin I 0.64#H, Total Protein 4.5L, Albumin 1.8L, Albumin/Globulin Ratio 0.7L, Triglycerides Level 321H, Total Cholesterol 245H, LDL Cholesterol 135H, Non-HDL Cholesterol (LDL + VLDL) 199, Total HDL Cholesterol 46, Cholesterol/HDL Ratio 5.326H 01/07/21 05:27: Bedside Glucose (Misc Panel) 52L 01/07/21 06:57: Bedside Glucose (Misc Panel) 66L 01/07/21 07:31: Bedside Glucose (Misc Panel) 72 CBC/BMP Laboratory Tests 01/06/21 16:48 01/07/21 04:59 ALEC BOLES MD Jan 07, 2021 08:08
--- NOTE | 2021-01-07 11:29 | RO ---
OPERATIVE NOTE DATE OF OPERATION: 01/06/2021 PREPROCEDURE DIAGNOSIS: Need for vascular access; failed peripheral access and failed peripherally inserted central catheter (PICC) line. POSTPROCEDURE DIAGNOSIS: Need for vascular access; failed peripheral access and failed peripherally inserted central catheter (PICC) line. PROCEDURE: Insertion of right subclavian central line. SURGEON: Jayden Contreras M.D. BOND CLERK: None. ANESTHESIA: DESCRIPTION OF PROCEDURE: The patient's left infraclavicular fossa was prepped and draped in the usual sterile fashion. It was infiltrated with 1% Lidocaine and the subclavian vein was found, but I could not thread the wire. After several more attempts, I changed the right side, which was again prepped and draped in the usual sterile fashion, and the right side vein was found on the first pass. There was a lot of scar tissue passing through and dilating the tract. Nonetheless, the wire passed with production of premature ventricular contractions (PVCs) and the tract was dilated with some difficulty. A triple lumen catheter was then placed without difficulty. The ports were aspirated and flushed. This was secured to the chest wall with 2-0 silk suture. The patient tolerated the procedure well and a chest x-ray is pending.
[2021-01-07] MEDS: FUROSEMIDE 100MG/10ML VIAL (J1940) IV SCH ×2 (12:21→17:46)
--- NOTE | 2021-01-07 20:08 | IPNPDOC ---
Subjective Date Seen The patient was seen on 01/07/21. Subjective Chief Complaint/HPI I was notified by pt's nurse at 19:27 that she had fallen from her wheelchair. Pt has an existing L BKA. I saw patient and assessed her. She states that she caught herself but she landed on her L stump. She denies hitting her head. Denies any pain. On exam, there's no swelling, hematoma, bruising, cyanosis. I will order a XR of both knees and will follow up on those results. I will put her on fall precautions. update: no acute fx seen on imaging ordered. Objective Physical Examination General Exam: Positive: Alert, Cooperative, No Acute Distress Eye Exam: Positive: PERRLA, Conjunctiva & lids normal, EOMI; Negative: Sclera icteric ENT Exam: Positive: Atraumatic, Mucous membr. moist/pink, Pharynx Normal Neck Exam: Positive: Supple; Negative: JVD, thyromegaly Chest Exam: Positive: Clear to auscultation, Normal air movement Heart Exam: Positive: Rate Normal, Regular Rhythm, Normal S1, Normal S2; Negative: Murmurs, Rubs Abdomen Exam: Positive: Normal bowel sounds, Soft, Other (obese with parietal edema); Negative: Tenderness Extremity Exam: Positive: Edema; Negative: Clubbing, Cyanosis Assessment /Plan Plan/VTE VTE Prophylaxis Ordered?: Yes VS, I&O, 24H, Fishbone Vital Signs/I&O Vital Signs Date Time Temp Pulse Resp B/P (MAP) Pulse Ox O2 Delivery O2 Flow Rate FiO2 01/07/21 18:00 99 Room Air 01/07/21 16:00 97.3 75 20 145/66 (92) I&O- Last 24 Hours up to 6 AM 01/07/21 06:00 Intake Total 120 ml Output Total 300 ml Balance -180 ml Laboratory Data 24H LABS Laboratory Tests 2 01/06/21 20:18: Bedside Glucose (Misc Panel) 145H 01/06/21 23:09: Troponin I 0.81#H 01/07/21 01:09: Bedside Glucose (Misc Panel) 43L 01/07/21 02:07: Bedside Glucose (Misc Panel) 59L 01/07/21 03:18: Bedside Glucose (Misc Panel) 73 01/07/21 04:59: Immature Granulocyte % (Auto) 3.1H, Neutrophils (%) (Auto) 70.4H, Lymphocytes (%) (Auto) 11.9L, Monocytes (%) (Auto) 12.1H, Eosinophils (%) (Auto) 1.9, Basophils (%) (Auto) 0.6, Neutrophils # (Auto) 6.1, Lymphocytes # (Auto) 1.0L, Monocytes # (Auto) 1.0H, Eosinophils # (Auto) 0.2, Basophils # (Auto) 0.1, Nucleated Red Blood Cells % (auto) 0.0, Anion Gap 6L, Glomerular Filtration Rate 33.5L, Estimated Mean Plasma Glucose 237H, Hemoglobin A1c 9.9, Calcium Level 7.7L, Total Bilirubin 0.2, Aspartate Amino Transf (AST/SGOT) 66H, Alanine Aminotransferase (ALT/SGPT) 54, Alkaline Phosphatase 126H, Troponin I 0.64#H, Total Protein 4.5L, Albumin 1.8L, Albumin/Globulin Ratio 0.7L, Triglycerides Level 321H, Total Cholesterol 245H, LDL Cholesterol 135H, Non-HDL Cholesterol (LDL + VLDL) 199, Total HDL Cholesterol 46, Cholesterol/HDL Ratio 5.326H 01/07/21 05:27: Bedside Glucose (Misc Panel) 52L 01/07/21 06:57: Bedside Glucose (Misc Panel) 66L 01/07/21 07:31: Bedside Glucose (Misc Panel) 72 01/07/21 08:02: Bedside Glucose (Misc Panel) 90 01/07/21 09:29: Methicillin-Resist S.aureus DNA PCR DETECTEDA 01/07/21 11:18: Troponin I 0.80#H 01/07/21 11:55: Bedside Glucose (Misc Panel) 102 01/07/21 16:29: Bedside Glucose (Misc Panel) 93 CBC/BMP Laboratory Tests 01/07/21 04:59 GME ATTESTATION GME ATTESTATION My faculty preceptor for this patient encounter was physically present during the encounter and was fully available. All aspects of the patient interview, examination, medical decision making process, and medical care plan development were reviewed and approved by the faculty preceptor. The faculty preceptor is aware and concurs with the plan as stated in the body of this note and will attest to such by his/her cosignature. Pérez Sy DO Jan 07, 2021 20:08
--- NOTE | 2021-01-07 21:03 | REPVR ---
PROCEDURE INFORMATION: Exam: XR Right Knee Exam date and time: 01/07/2021 8:07 PM Age: 50 years old Clinical indication: Pain; Knee; Bilateral; Additional info: Fall TECHNIQUE: Imaging protocol: XR Right knee. Views: 4 or more views. COMPARISON: CR Knee, complete 04/17/2018 1:51 PM FINDINGS: Bones/joints: There is no evidence of acute fracture of the right knee. There is no old healed fracture of the proximal right fibula. The fracture was seen on the examination of 2017. Soft tissues: Normal. IMPRESSION: No evidence of acute fracture. PROCEDURE INFORMATION: Exam: XR Left Knee Exam date and time: 01/07/2021 8:07 PM Age: 50 years old Clinical indication: Pain; Knee; Bilateral; Additional info: Fall TECHNIQUE: Imaging protocol: XR Left knee. Views: 4 or more views. COMPARISON: CR Knee, complete 04/17/2018 1:51 PM FINDINGS: Bones/joints: Patient has had a previous below the knee amputation. There is osteophyte formation the medial and lateral compartments. Soft tissues: Normal. IMPRESSION: No evidence of acute fracture. Electronically signed by: Nicholas Yanez On 01/07/2021 21:02:48 PM
[2021-01-08] VITALS (19 sets, daily range): BP systolic 121–158; BP diastolic 65–90; O2SAT 93–100
[2021-01-08] MEDS: rOPINIRole 1MG TAB PO SCH (00:08)
[2021-01-08] MEDS: FUROSEMIDE 100MG/10ML VIAL (J1940) IV SCH ×4 (00:08→18:00)
[2021-01-08] MEDS: HumaLOG INSULIN (NovoLOG) PER UNIT SC SCH ×5 (04:00→20:00)
[2021-01-08 07:17] LABS: HEMOGLOBIN 9.6 g/dl (12.0-15.5); MEAN CORPUSCULAR HEMOGLOBIN 29.6 pg (27.0-33.0); MEAN CORPUSCULAR HGB CONC 33.1 g/dl (32.0-36.5); MEAN CORPUSCULAR VOLUME 89.5 fl (80.0-96.0); PLATELET COUNT, AUTOMATED 162 10^3/uL (150-450); RED BLOOD COUNT 3.24 10^6/uL (4.00-5.40)
[2021-01-08 07:34] LABS: CALCIUM LEVEL 7.9 MG/DL (8.5-10.1); CREATININE FOR GFR 2.03 MG/DL (0.55-1.30); GLOMERULAR FILTRATION RATE 27.5 (>51); POTASSIUM SERUM 3.8 MEQ/L (3.5-5.1)
[2021-01-08] MEDS: LEVEMIR (INSULIN DETEMIR) 1 UNITS/0.01ML SC SCH ×2 (08:32→21:28)
[2021-01-08] MEDS: DIVALPROEX 500 MG TAB PO SCH ×2 (08:43→21:26)
[2021-01-08] MEDS: METHYLPHENIDATE ER 18 MG TABLET (CONCERTA) PO SCH (08:43)
[2021-01-08] MEDS: metOLazone 5 MG TAB PO SCH (08:43)
[2021-01-08] MEDS: ASPIRIN 81MG ENTERIC TABLET PO SCH (08:43)
[2021-01-08] MEDS: APIXABAN 5 MG TAB (ELIQUIS) PO SCH ×2 (08:43→21:26)
[2021-01-08] MEDS: OMEPRAZOLE 20 MG CAP PO SCH ×2 (08:43→21:28)
[2021-01-08] MEDS: PREGABALIN 100 MG CAP (LYRICA) PO SCH ×2 (08:44→21:28)
[2021-01-08] MEDS: NYSTATIN 100,000 UNITS/GM TOPICAL PWD 15 GM TOP SCH (08:44)
--- NOTE | 2021-01-08 09:09 | ECGEPIP ---
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
--- NOTE | 2021-01-08 10:45 | IPNPDOC ---
Subjective Date Seen The patient was seen on 01/08/21. Subjective Chief Complaint/HPI Patient had a fall last night. This morning sleeping deeply, easily arousable. denies any SOB. 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 no fever or chills. I/O negative 580 in the lsat 24 hours. Objective Physical Examination General Exam: Positive: Alert, Cooperative, No Acute Distress Eye Exam: Positive: PERRLA, Conjunctiva & lids normal, EOMI; Negative: Sclera icteric ENT Exam: Positive: Atraumatic, Mucous membr. moist/pink, Pharynx Normal Neck Exam: Positive: Supple; Negative: JVD, thyromegaly Chest Exam: Positive: Clear to auscultation, Normal air movement Heart Exam: Positive: Rate Normal, Regular Rhythm, Normal S1, Normal S2; Negative: Murmurs, Rubs Abdomen Exam: Positive: Normal bowel sounds, Soft, Other (obese with parietal edema); Negative: Tenderness Extremity Exam: Positive: Edema; Negative: Clubbing, Cyanosis Assessment /Plan Assessment This is a 50 yr old F w hx of multiple medical problems including brittle DM, CKD3, HTN, HFpEF, Asthma obesity, seizures, migraine, chronic back pain on narcotics who was sent by her PCP for evaluation of weight gain, dyspnea and chest heaviness; she will be admitted for management of fluid overload likely 2/2 acute HFpEF & HTN Urgency. Hypoalbuminemia/ Anasarca/ Nephrotic syndrome Continue lasix and albumin. Nephrology consult Diastolic CHF exacerbation due to massive fluid overload. continue as above. HTN Urgency resolved will stop amlodipine to give good Bp for aggressive diuresis. 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 sugars low in 50s. Will hold levemir this am also on lispro sliding scale. lyrica, cymbalta Hypokalemia resolved CKD stage 3 Baseline likely 1.6 to 1.8 i expect crearinine may rise a little with diuresis. Anemia/ iron def/ anemia of chronic disease hb at goal and stable. h/o Temporal lobe seizures in none recently, on valporate. Migraine Divalproex Asthma Per pt stable Montelukast & Albuterol Transaminitis likely due to hepatic congestion from CHF, fatty liver Factor V Leiden deficiency / recurrent DVTs Eliquis Chronic back pain and neck pain cervical DDD s/p discetomy and fusion. L2/L5 spinal stenosis / Fibromyalgia / bilateral TMJ dysfunction/ spina bifida occulta/ thoracic DDD Cyclobenzaprine, lyrica, cymbalta, norco Bipolar disorder/ OCD/Anxiety Divalproex RLS Ropinirole Hiatal hernia w GERD PPI morbid obesity with BMI of 43 Complicates care Glaucoma home eye drops H/o urinary retention on flomax PA does not use CPAP H/o C. diff with stool transplant. Hypogammaglobulinemia/ CVID H/o bilateral carpal tunnel syn with b/l carpal tunnel release H/O left [place] palsy Plan/VTE VTE Prophylaxis Ordered?: Yes VS, I&O, 24H, Fishbone Vital Signs/I&O Vital Signs Date Time Temp Pulse Resp B/P (MAP) Pulse Ox O2 Delivery O2 Flow Rate FiO2 01/08/21 09:38 97.4 84 22 125/65 99 Nasal Cannula 2.0 I&O- Last 24 Hours up to 6 AM 01/08/21 06:00 Intake Total 1410.0 ml Output Total 2805 ml Balance -1395.0 ml Laboratory Data 24H LABS Laboratory Tests 2 01/07/21 11:18: Troponin I 0.80#H 01/07/21 11:55: Bedside Glucose (Misc Panel) 102 01/07/21 16:29: Bedside Glucose (Misc Panel) 93 01/07/21 21:09: Bedside Glucose (Misc Panel) 163H 01/07/21 23:53: Bedside Glucose (Misc Panel) 144H 01/08/21 04:03: Bedside Glucose (Misc Panel) 116H 01/08/21 05:34: Nucleated Red Blood Cells % (auto) 0.0, Anion Gap 5L, Glomerular Filtration Rate 27.5L, Calcium Level 7.9L CBC/BMP Laboratory Tests 01/08/21 05:34 ALEC BOLES MD Jan 08, 2021 10:44
[2021-01-08 12:28] LABS: ABG BASE EXCESS 2.7 (-2.0-2.0); ABG HCO3 27.3 MEQ/L (22.0-26.0); ABG O2 SATURATION 97.8 % (95.0-99.0); ABG PARTIAL PRESSURE CO2 42.4 mmHg (35.0-45.0); ABG PARTIAL PRESSURE O2 108.1 mmHg (75.0-100.0); ABG STANDARD HCO3 26.9 MEQ/L (22.0-26.0); ABG TOTAL CO2 28.6 MEQ/L (22.0-29.0); ABG pH (ARTERIAL) 7.427 UNITS (7.350-7.450)
[2021-01-08 12:42] LABS: AMORPHOUS SEDIMENT SMALL (NEGATIVE); APPEARANCE, URINE HAZY (CLEAR); BACTERIA, URINE AUTO 1+ (NEGATIVE); BILIRUBIN, URINE AUTO NEGATIVE (NEGATIVE); BLOOD, URINE BLOOD 2+ (NEGATIVE); COLOR, URINE YELLOW (YELLOW); GLUCOSE, URINE (UA) AUTO NEGATIVE (NEGATIVE); KETONE, URINE AUTO NEGATIVE (NEGATIVE); LEUKOCYTE ESTERASE, URINE AUTO TRACE (NEGATIVE); MUCUS, URINE SMALL (NEGATIVE); NITRITE, URINE AUTO NEGATIVE (NEGATIVE); PROTEIN, URINE AUTO 3+ mg/dL (NEGATIVE); RBC, URINE AUTO 13 /HPF (0-3); SPECIFIC GRAVITY URINE AUTO 1.009 (1.002-1.035); SQUAMOUS EPITHELIAL CELL UR AU 0 /HPF (0-6); UROBILINOGEN, URINE AUTO 0.2 mg/dL (0.0-2.0); WBC, URINE AUTO 27 /HPF (0-3)
[2021-01-08 13:08] LABS: TOTAL PROTEIN,RANDOM URINE 402.7 MG/DL (0.0-12.0)
[2021-01-08] MEDS ORDERED: SODIUM CHLORIDE 0.9% INJ 10 ML SYR IV PRN (18:40)
[2021-01-08] MEDS ORDERED: rOPINIRole 1MG TAB PO PRN (18:50)
[2021-01-08] MEDS: LATANOPROST 0.005% OPHTH SOLN 2.5 ML OU SCH (21:00)
[2021-01-08] MEDS: MAGNESIUM OXIDE 400MG TAB (MAG-OX) PO SCH (21:27)
[2021-01-08] MEDS: LACTOBACILLUS ACIDOPHILUS CAP (BACID) PO SCH (21:27)
[2021-01-08] MEDS: DULoxetine 30 MG CAP (CYMBALTA) PO SCH (21:27)
[2021-01-08] MEDS: allopurinoL 300 MG TAB PO SCH (21:27)
[2021-01-08] MEDS: MONTELUKAST 10 MG TAB PO SCH (21:27)
[2021-01-08] MEDS: SODIUM CHLORIDE 0.9% INJ 10 ML SYR IV SCH (21:54)
--- NOTE | 2021-01-08 22:42 | CR ---
NEPHROLOGY CONSULTATION DATE: 01/08/2021 REQUESTING PHYSICIAN: Rach Braun M.D. REASON FOR CONSULTATION: Acute kidney injury and generalized anasarca in this lady with multiple chronic medical problems. HISTORY OF PRESENT ILLNESS: Ms. Torres is a 50-year-old female with a known history of diabetes, hypertension, migraine headaches, diastolic congestive heart failure, bipolar disorder, Factor V Leiden deficiency with history of deep vein thrombosis in upper and lower extremities, history of hypergammaglobulinemia, history of left below the knee amputation and right foot amputation, history of fatty liver and his of colitis. She is admitted with significant weight gain and generalized anasarca with a presumed diagnosis of congestive heart failure. She is being diuresed and has developed a decline in kidney function. There was difficulty with a peripheral access and a central line has been placed by Dr. Contreras. The patient is seen this morning in the Progressive Care Unit. PAST MEDICAL HISTORY: The patient's past medical history is significant for: 1. Insulin requiring diabetes complicated with retinopathy, neuropathy and gastroparesis. 2. Chronic kidney disease. 3. Hypertension. 4. Diastolic congestive heart failure. 5. Asthma. 6. Bipolar disorder. 7. History of DVT prophylaxis with Factor V Leiden deficiency. 8. History of spinal stenosis. 9. History of fibromyalgia. 10. History of hypergammaglobulinemia. 11. History of psoriasis. 12. History of temporal lobe seizures. 13. History of hiatal hernia and gastroesophageal reflux disease. 14. History of morbid obesity. 15. History of fatty liver. 16. History of colitis with ischemic colitis. 17. History of Wynn's palsy 18. Prior history of C-diff colitis, status post stool transplant. SURGICAL HISTORY: The patient's past surgical history is significant for: 1. History of left below the knee amputation and right foot amputation. 2. Cholecystectomy. 3. Hysterectomy. 4. Cervical disk surgery. 5. Cervical fusion. 6. Right breast lumpectomy. 7. Right ulnar and carpal tunnel release. 8. Appendectomy. FAMILY HISTORY: The patient's family history is significant for coronary artery disease, hypertension, diabetes and strokes. PERSONAL AND SOCIAL HISTORY: The patient is an active smoker. She does not drink any alcohol or use any recreational drugs. MEDICATIONS: Her home medications include: 1. Allopurinol 300 mg daily. 2. Amlodipine 2.5 mg daily. 3. Eliquis 5 mg twice daily. 4. Dexilant 60 mg daily. 5. Depakote E.R. 500 mg twice daily. 6. Symbicort 120 mg daily. 7. Vitamin D 50,000 units once a week. 8. Tresiba insulin 320 units at bedtime. 9. Humalog insulin per sliding scale. 10. Magnesium 64 one tablet at bedtime. 11. Lyrica 300 mg twice daily. 12. Requip 4 mg twice daily. 13. Flomax 0.4 mg at bedtime. 14. Torsemide 100 mg twice daily. 15. Trazodone 200 mg at bedtime. 16. She also uses Albuterol inhaler as needed. 17. Epinephrine Pen as needed for allergies. 18. Hydrocodone 10/325 mg every 4 hours p.r.n. for pain. 19. Methylphenidate 20 mg p.r.n. for ADHD. ALLERGIES: She has multiple drug allergies includin. Penicillin. 2. Sulfa. 3. Clindamycin. 4. Metformin. 5. Fenofibrate. 6. Latex. 7. Surgical lawrence. REVIEW OF SYSTEMS: At the time of my visit the patient is sitting in the chair. Her lips and oral mucosa is very dry and she has difficulty talking. She reports improved edema and dyspnea since admission. HEENT: Head is atraumatic. She denies any ears, nose and throat problems. Cardiovascular system is significant for significant weight gain and generalized anasarca over the last few weeks. Respiratory system is negative for cough or hemoptysis. GI system is significant for decreased appetite and history of gastroesophageal reflux disease. Genitourinary system is negative for dysuria or hematuria. She currently has a Bishop catheter in place. Musculoskeletal system is significant for left below the knee amputation and right foot amputation. She is sitting in the chair currently. Psychosocial system is significant for bipolar disorder and a history of ADHD. Musculoskeletal system is also significant for fibromyalgia and morbid obesity. Hematologic system is significant for a prior history of DVT and Factor V Leiden deficiency requiring chronic anticoagulation. SKIN: No rash or ulcers. PHYSICAL EXAMINATION: VITAL SIGNS: Temperature 97.8 degrees Fahrenheit, heart rate 78 per minute, respiratory rate 18 per minute blood pressure 123/68 mm of mercury and oxygen saturation is 99-100% on 2 liters oxygen. HEENT: Head is atraumatic. Her oral mucosa is dry and lips are very dry and crusted. She has a hard time talking. NECK: Neck veins are difficult to be assessed while sitting upright. HEART: Regular and without a pericardial friction rub. LUNGS: Diminished breath sounds with morbid obesity. ABDOMEN: Obese and nontender. EXTREMITIES: No cyanosis or clubbing. She has a left below the knee amputation and right foot amputation. I do not see any edema on her leg stump. NEUROLOGICAL: She is awake and grossly intact without any focal deficits. Difficulty talking is most likely related to very dry oral mucosa. LABORATORY DATA: White blood cell count is 7.0, hemoglobin 9.6 and hematocrit 29.0, platelet count 162. Blood gas: Sodium pH of 7.42, pco2 42 and pO2 108, bicarbonate is 27. Sodium is up to 148, potassium 3.8, chloride 112, CO2 31, BUN 35 and creatinine 2.03, glucose 104 and calcium 7.9. Hemoglobin A1c level is 9.9. Total protein 4.5, and albumin 1.8. Troponins have been 0.81, 0.64 and 0.80. Triglycerides 321 and total cholesterol 245, LDL cholesterol 135 and HDL cholesterol 46. IMAGING DATA: She had various imaging studies done. A chest x-ray did not show any evidence of pleural effusion or congestive heart failure. PROBLEMS: 1. Weight gain and anasarca I am concerned about the possibility of nephrotic syndrome causing anasarca and weight gain. Her oral mucosa is very dry as she is being diuresed. Her sodium level has increased up to 148. I do not feel that this is all diastolic congestive heart failure. I am going to stop her diuretics for now and will initiate further workup for nephrotic syndrome. She has a long history of poorly controlled diabetes which could be the cause of her nephrotic syndrome, however she also has hematuria with a characterized specimen and will need to rule out other causes of nephrotic syndrome. A random urine protein is 402 which is quite elevated. A 24-hour urine protein will be ordered and we will also get serology for vasculitis. 2. Acute kidney injury superimposed on chronic kidney disease most likely this is a result of diuresis and negative fluid balance. At this point I am going to put her diuretic on hold due to elevated sodium level, increase in CO2 and possible intravascular volume depletion. She has very low serum albumin which is most likely contributing to her generalized anasarca. 3. Anemia her anemia is slightly worse since admission. No active bleeding noted. We will continue to monitor closely. 4. Uncontrolled diabetes - The patient has a history of poorly controlled diabetes and needs to improve her diet in addition to her insulin regimen. Morbid obesity is probably contributing to insulin resistance. Thank you for involving me in the care of Ms. Torres. I will follow her along with you. LAURIE
[2021-01-09] VITALS (23 sets, daily range): BP systolic 126–230; BP diastolic 58–115
[2021-01-09] MEDS: HumaLOG INSULIN (NovoLOG) PER UNIT SC SCH ×5 (00:50→17:28)
[2021-01-09] MEDS: SODIUM CHLORIDE 0.9% INJ 10 ML SYR IV SCH ×5 (06:54→21:07)
[2021-01-09 07:25] LABS: COMPLEMENT C3 119 MG/DL (90-180); COMPLEMENT C4 21 MG/DL (10-40)
[2021-01-09 07:30] LABS: ALBUMIN 2.5 GM/DL (3.2-5.2); C REACTIVE PROTEIN QUANTITATIV 2.87 MG/DL (0.00-0.30); CALCIUM LEVEL 8.1 MG/DL (8.5-10.1); CREATININE FOR GFR 1.99 MG/DL (0.55-1.30); GLOMERULAR FILTRATION RATE 28.1 (>51); MAGNESIUM LEVEL 2.2 MG/DL (1.8-2.4); PHOSPHORUS LEVEL 4.4 MG/DL (2.5-4.9); POTASSIUM SERUM 3.6 MEQ/L (3.5-5.1)
[2021-01-09] MEDS: ASPIRIN 81MG ENTERIC TABLET PO SCH (08:32)
[2021-01-09] MEDS: NORCO, ANEXSIA 5/325MG TABLET (HYDROcodone/ACETAMINOPHEN) PO PRN ×2 (08:32→21:05)
[2021-01-09] MEDS: OMEPRAZOLE 20 MG CAP PO SCH ×2 (08:32→21:04)
[2021-01-09] MEDS: PREGABALIN 100 MG CAP (LYRICA) PO SCH ×2 (08:32→21:05)
[2021-01-09] MEDS: APIXABAN 5 MG TAB (ELIQUIS) PO SCH (08:32)
[2021-01-09] MEDS: DIVALPROEX 500 MG TAB PO SCH (08:32)
[2021-01-09] MEDS: NYSTATIN 100,000 UNITS/GM TOPICAL PWD 15 GM TOP SCH (09:00)
--- NOTE | 2021-01-09 10:13 | IPNPDOC ---
Subjective Date Seen The patient was seen on 01/09/21. Subjective Chief Complaint/HPI complains of SOB even on truning in bed form side to side. She does have conversational dyspnea also. Awake and alert this morning. So i think it was the trazodone that was making her lethargic and difficult to wake up yesterday morning. Objective Physical Examination General Exam: Positive: Alert, Cooperative, No Acute Distress Eye Exam: Positive: PERRLA, Conjunctiva & lids normal, EOMI; Negative: Sclera icteric ENT Exam: Positive: Atraumatic, Mucous membr. moist/pink, Pharynx Normal Neck Exam: Positive: Supple; Negative: JVD, thyromegaly Chest Exam: Positive: Clear to auscultation, Normal air movement Heart Exam: Positive: Rate Normal, Regular Rhythm, Normal S1, Normal S2; Negative: Murmurs, Rubs Abdomen Exam: Positive: Normal bowel sounds, Soft, Other (obese with parietal edema); Negative: Tenderness Extremity Exam: Positive: Edema; Negative: Clubbing, Cyanosis Assessment /Plan Assessment This is a 50 yr old F w hx of multiple medical problems including brittle DM, CKD3, HTN, HFpEF, Asthma obesity, seizures, migraine, chronic back pain on narcotics who was sent by her PCP for evaluation of rapid weight gain on 37 lbs in 2 to 3 weeks, dyspnea and chest heaviness; she will be admitted for management of fluid overload likely 2/2 acute HFpEF & HTN Urgency. She was noted to have anasarca with severe albuminemia raising the suspicion for development of Nephrotic syndrome. Hypoalbuminemia/ Anasarca/ Nephrotic syndrome Lasix stopped due to rising Na, intravascular volume depletion No further albumin available in the hospital. Nephrology consult appreciated. Work up sent for nephrotic syndrome. 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 sugars low in 50s. Will hold levemir this am also on lispro sliding scale. lyrica, cymbalta Hypokalemia resolved CKD stage 3 Baseline likely 1.6 to 1.8 nephrology following Anemia/ iron def/ anemia of chronic disease hb at goal and stable. h/o Temporal lobe seizures in none recently, on valporate. Migraine Divalproex Asthma Per pt stable Montelukast & Albuterol Transaminitis likely due to hepatic congestion from CHF, fatty liver Factor V Leiden deficiency / recurrent DVTs Eliquis Chronic back pain and neck pain cervical DDD s/p discetomy and fusion. L2/L5 spinal stenosis / Fibromyalgia / bilateral TMJ dysfunction/ spina bifida occulta/ thoracic DDD lyrica, cymbalta, norco Bipolar disorder/ OCD/Anxiety Divalproex RLS Ropinirole prn Hiatal hernia w GERD PPI morbid obesity with BMI of 43 Complicates care Glaucoma home eye drops H/o urinary retention on flomax PA does not use CPAP H/o C. diff with stool transplant. Hypogammaglobulinemia/ CVID H/o bilateral carpal tunnel syn with b/l carpal tunnel release also had right ulner release. H/O left P[place]is palsy Plan/VTE VTE Prophylaxis Ordered?: Yes VS, I&O, 24H, [facility] Vital Signs/I&O Vital Signs Date Time Temp Pulse Resp B/P (MAP) Pulse Ox O2 Delivery O2 Flow Rate FiO2 01/09/21 08:32 16 01/09/21 06:00 97.9 75 164/82 (109) 95 Nasal Cannula 2.0 I&O- Last 24 Hours up to 6 AM 01/09/21 06:00 Intake Total 726.0 ml Output Total 3025 ml Balance -2299.0 ml Laboratory Data 24H LABS Laboratory Tests 2 01/08/21 11:51: Bedside Glucose (Misc Panel) 72 01/08/21 12:18: Blood Gas Bicarbonate Standard 26.9H, Arterial Blood pH 7.427, Arterial Blood Partial Pressure CO2 42.4, Arterial Blood Partial Pressure O2 108.1H, Arterial Blood Total CO2 28.6, Arterial Blood HCO3 27.3H, Arterial Blood Base Excess 2.7H, Arterial Blood Oxygen Saturation 97.8 01/08/21 12:23: Urine Color YELLOW, Urine Appearance HAZY, Urine pH 5.0, Urine Specific [place] 1.009, Urine Protein 3+H, Urine Glucose (Auto)(UA) NEGATIVE, Urine Ketones (Auto) NEGATIVE, Urine Blood 2+H, Urine Nitrite NEGATIVE, Urine Bilirubin NEGATIVE, Urine Urobilinogen 0.2, Urine Leukocyte Esterase (Auto) TRACEH, Urine WBC (Auto) 27H, Urine RBC (Auto) 13H, Urine Hyaline Casts (Auto) 0, Urine Bacteria (Auto) 1+H, Urine Squamous Epithelial Cells 0, Urine Amorphous Sediment (Auto) SMALLH, Urine Mucus (Auto) SMALL, Urine Sperm (Auto) , Urine Random Total Protein 402.7H 01/08/21 16:14: Bedside Glucose (Misc Panel) 71 01/08/21 20:20: Bedside Glucose (Misc Panel) 152H 01/09/21 00:57: Bedside Glucose (Misc Panel) 92 01/09/21 04:24: Bedside Glucose (Misc Panel) 46L 01/09/21 05:03: Bedside Glucose (Misc Panel) 110H 01/09/21 06:00: Anion Gap 5L, Glomerular Filtration Rate 28.1L, Calcium Level 8.1L, Phosphorus Level 4.4, Magnesium Level 2.2, C-Reactive Protein, Quantitative 2.87H, Albumin 2.5#L, Complement C3 119, Complement C4 21 01/09/21 06:40: CBC/BMP Laboratory Tests 01/09/21 06:00 ALEC BOLES MD Jan 09, 2021 10:13
[2021-01-09] MEDS: METHYLPHENIDATE ER 18 MG TABLET (CONCERTA) PO SCH (10:17)
[2021-01-09] MEDS ORDERED: FUROSEMIDE 100MG/10ML VIAL (J1940) IV ONE (11:05)
[2021-01-09] MEDS ORDERED: FUROSEMIDE 100MG/10ML VIAL (J1940) As Ordered ONE (11:08)
--- NOTE | 2021-01-09 11:25 | REP ---
INDICATION: hypoxia. COMPARISON: Comparison chest x-ray January 06, 2021. TECHNIQUE: Portable upright AP chest radiograph. FINDINGS: A right-sided Dkmatw-G-Yhyu catheter is again noted with its tip in the expected location of superior vena cava. Heart size is borderline. Pulmonary vasculature and interstitial markings are prominent there. There is diffuse interstitial edema pattern which is new. Some fissural thickening is noted on the right. Interstitial markings are a little heavier in the right base than the left. No for ranjan pleural effusion is seen.. IMPRESSION: Mildly prominent heart. Diffuse interstitial edema pattern moderate to severe. New when compared with the January 06, 2021 study.. <Electronically signed by Loi Ruiz > 01/09/21 1122
--- NOTE | 2021-01-09 11:31 | ECHO ---
DATE OF PROCEDURE: 01/07/2021 Age: 50 Gender: Female REFERRING PHYSICIAN: Rach Braun MD. PATIENT LOCATION: Room 3218. REASON FOR STUDY: Shortness of breath. 2D MEASUREMENTS: IVS 1.4 cm LV 5.3 cm LVPW 1.4 cm LA 3.4 cm Aorta 2.8 cm IVC 1.9 cm DOPPLER MEASUREMENT Peak velocity across the aortic valve 1.2 m/s Peak velocity across the LVOT 1.0 m/s Mitral E 0.75 Mitral A 0.9 with a ratio of 0.8 2D COMMENTS: 1. Mildly increased left ventricular wall thickness with normal left ventricular size and normal global left ventricular systolic function. The estimated left ventricular systolic ejection fraction is 60% to 65%. 2. Normal left atrium. Normal right atrium and right ventricle. 3. Normal aortic root. 4. No pericardial effusion seen. 5. Mildly calcified aortic valve with normal leaflet excursion. Mildly calcified mitral annulus with normal anterior mitral valve leaflet motion. Normal tricuspid valve. The pulmonic valve and proximal pulmonary artery branches were not well visualized. 6. The inferior vena cava is mildly enlarged, central venous pressure might be elevated. Doppler with no significant valvular abnormalities detected. Abnormal relaxation pattern was noted across the mitral valve leaflets, as well as mitral valve annulus consistent with features of grade 1 left ventricular diastolic dysfunction. IMPRESSION: 1. Normal global left ventricular systolic function with mild concentric left ventricular hypertrophy. There are some features of grade 1 left ventricular diastolic dysfunction manifested by abnormal relaxation. 2. Aortic valve sclerosis without stenosis or aortic regurgitation. 3. Mitral annular calcification, isolated. 4. The inferior vena cava was mildly enlarged, central venous pressure might be elevated. 5. Not mentioned above, this study was technically limited due to poor acoustic window. [facility]
[2021-01-09 11:42] LABS: CK-MB VALUE MASS 7.5 NG/ML (<3.6); MB/CK RELATIVE INDEX 1.73 (< OR =4); TROPONIN I 1.58 NG/ML (< 0.10)
[2021-01-09 11:54] LABS: ABG BASE EXCESS 2.3 (-2.0-2.0); ABG HCO3 26.6 MEQ/L (22.0-26.0); ABG O2 SATURATION 95.2 % (95.0-99.0); ABG PARTIAL PRESSURE CO2 40.3 mmHg (35.0-45.0); ABG PARTIAL PRESSURE O2 79.5 mmHg (75.0-100.0); ABG STANDARD HCO3 26.5 MEQ/L (22.0-26.0); ABG TOTAL CO2 27.9 MEQ/L (22.0-29.0); ABG pH (ARTERIAL) 7.438 UNITS (7.350-7.450)
[2021-01-09] MEDS ORDERED: hydrALAZINE 20MG/ML 1ML VIAL (J0360 PER 20MG) IV SCH (12:00)
[2021-01-09] MEDS ORDERED: NITROGLYCERIN 2% OINT 1 GM *U/D* PKT TOP ONE (12:15)
--- NOTE | 2021-01-09 13:05 | IPNPDOC ---
Text Note Date of Service The patient was seen on 01/09/21. NOTE Had an episode of flash pulmonary edema desaturating suddenly to 70s and became blue. Complained of chest tightness also so was moved her to ICU. Her EKG showed sinus tachycardia with 1st degree AV block with ST-T wave abnormality suggestive of lat ischemia which is unchanged from before, She also had hypertensive urgency. Her cardiac markers which was added on to morning labs during the procedure was 1.58 another was repeated soon after the episode She had 1100 ml urine output after 100 mg of lasix. VS,Fishbone, I+O VS, Fishbone, I+O Laboratory Tests 01/09/21 06:00 Vital Signs Date Time Temp Pulse Resp B/P (MAP) Pulse Ox O2 Delivery O2 Flow Rate FiO2 01/09/21 12:52 205/86 01/09/21 10:34 75 01/09/21 09:05 16 01/09/21 06:00 97.9 95 Nasal Cannula 2.0 I&O- Last 24 Hours up to 6 AM 01/09/21 06:00 Intake Total 726.0 ml Output Total 3025 ml Balance -2299.0 ml ALEC BOLES MD Jan 09, 2021 13:05
[2021-01-09 13:27] LABS: CK-MB VALUE MASS 8.1 NG/ML (<3.6); MB/CK RELATIVE INDEX 1.59 (< OR =4); TROPONIN I 1.43 NG/ML (< 0.10)
[2021-01-09] MEDS: CARVedilol 6.25 MG TAB PO SCH ×2 (14:38→18:03)
[2021-01-09] MEDS: **hydrALAZINE HCL** 25 MG TAB PO SCH ×2 (14:38→18:03)
[2021-01-09] MEDS: NITROGLYCERIN 2% OINT 1 GM *U/D* PKT TOP SCH ×3 (14:41→21:06)
--- NOTE | 2021-01-09 15:52 | IPNPDOC ---
Text Note Date of Service The patient was seen on 01/09/21. NOTE Spoke with Dr Nguyen around 1 pm for NSTEMI and he advised transfer . I called [facility] and [facility] both are on diversion at present and cannot accept any transfer at present. Sara told to call back and check in [address] Nguyen over the phone and he did give me some recommendations which i started. I wanted his service to follow her while she is in the hospital . He later called me back at 3:30 pm indicating that the patient was discharged from their service about 3 years ago as she had 3 no shows and He wanted me to contact the other service. I then spoke with Dr Jacques who has agreed to try and see the patient. VS,Pam, I+O VS, Pam, I+O Laboratory Tests 01/09/21 06:00 Vital Signs Date Time Temp Pulse Resp B/P (MAP) Pulse Ox O2 Delivery O2 Flow Rate FiO2 01/09/21 15:30 96 24 148/58 (88) 97 Nasal Cannula 4.0 01/09/21 13:02 40 01/09/21 11:37 97.6 I&O- Last 24 Hours up to 6 AM 01/09/21 06:00 Intake Total 726.0 ml Output Total 3025 ml Balance -2299.0 ml ALEC BOLES MD Jan 09, 2021 15:52
[2021-01-09] MEDS ORDERED: CLOPIDOGREL 75 MG TAB PO ONE (16:05)
[2021-01-09 18:00] LABS: CK-MB VALUE MASS 3.8 NG/ML (<3.6); MB/CK RELATIVE INDEX 0.97 (< OR =4); TROPONIN I 1.55 NG/ML (< 0.10)
[2021-01-09] MEDS ORDERED: HEPARIN SOD (PORCINE) 5000UNITS/ML 1ML VIAL/SYRINGE IV PRN (18:00)
[2021-01-09] MEDS: HEPARIN DRIP 25,000 UNITS in IV 1 EA IV SCH (18:04)
[2021-01-09] MEDS: FUROSEMIDE 100MG/10ML VIAL (J1940) IV SCH (18:57)
[2021-01-09] MEDS ORDERED: HumaLOG INSULIN (NovoLOG) PER UNIT SC SCH (21:00)
[2021-01-09] MEDS ORDERED: LEVEMIR (INSULIN DETEMIR) 1 UNITS/0.01ML SC SCH (21:00)
[2021-01-09] MEDS: DULoxetine 30 MG CAP (CYMBALTA) PO SCH (21:04)
[2021-01-09] MEDS: MONTELUKAST 10 MG TAB PO SCH (21:04)
[2021-01-09] MEDS: allopurinoL 300 MG TAB PO SCH (21:05)
[2021-01-09] MEDS: LACTOBACILLUS ACIDOPHILUS CAP (BACID) PO SCH (21:05)
[2021-01-09] MEDS: MAGNESIUM OXIDE 400MG TAB (MAG-OX) PO SCH (21:05)
[2021-01-09] MEDS: LATANOPROST 0.005% OPHTH SOLN 2.5 ML OU SCH (21:21)
[2021-01-10] VITALS: BP 110/56
[2021-01-10] MEDS: NITROGLYCERIN 2% OINT 1 GM *U/D* PKT TOP SCH ×2 (00:42→04:30)
[2021-01-10] MEDS: CARVedilol 6.25 MG TAB PO SCH ×3 (00:43→12:23)
[2021-01-10] MEDS: DIVALPROEX 500 MG TAB PO SCH ×2 (02:22→10:43)
[2021-01-10] MEDS: FUROSEMIDE 100MG/10ML VIAL (J1940) IV SCH ×2 (02:22→10:43)
[2021-01-10 04:00] VITALS: BP 111/58
[2021-01-10] MEDS: **hydrALAZINE HCL** 25 MG TAB PO SCH ×2 (04:30)
[2021-01-10] MEDS: NORCO, ANEXSIA 5/325MG TABLET (HYDROcodone/ACETAMINOPHEN) PO PRN ×2 (04:31→12:15)
[2021-01-10] MEDS: SODIUM CHLORIDE 0.9% INJ 10 ML SYR IV SCH ×2 (04:32→04:33)
[2021-01-10 05:05] LABS: BASO # 0.1 10^3/uL (0.0-0.2); BASO % 0.4 % (0.0-1.0); EOS # 0.1 10^3/uL (0.0-0.5); EOS % 0.7 % (0.0-3.0); HEMATOCRIT 26.2 % (36.0-47.0); HEMOGLOBIN 8.4 g/dl (12.0-15.5); LYMPH # 2.1 10^3/uL (1.5-5.0); LYMPH % 17.4 % (24.0-44.0); MEAN CORPUSCULAR HEMOGLOBIN 29.8 pg (27.0-33.0); MEAN CORPUSCULAR HGB CONC 32.1 g/dl (32.0-36.5); MEAN CORPUSCULAR VOLUME 92.9 fl (80.0-96.0); MONO # 1.4 10^3/uL (0.0-0.8); MONO % 11.6 % (2.0-8.0); NEUTROPHILS # 8.3 10^3/uL (1.5-8.5); NEUTROPHILS % 67.7 % (36.0-66.0); PLATELET COUNT, AUTOMATED 144 10^3/uL (150-450); RED BLOOD COUNT 2.82 10^6/uL (4.00-5.40); WHITE BLOOD COUNT 12.3 10^3/uL (4.0-10.0)
[2021-01-10 05:28] LABS: CALCIUM LEVEL 7.9 MG/DL (8.5-10.1); CREATININE FOR GFR 2.59 MG/DL (0.55-1.30); GLOMERULAR FILTRATION RATE 20.8 (>51); POTASSIUM SERUM 3.5 MEQ/L (3.5-5.1)
[2021-01-10 08:00] VITALS: BP 105/58
[2021-01-10] MEDS: ASPIRIN 81MG ENTERIC TABLET PO SCH (08:55)
[2021-01-10] MEDS: HumaLOG INSULIN (NovoLOG) PER UNIT SC SCH (08:55)
[2021-01-10] MEDS: METHYLPHENIDATE ER 18 MG TABLET (CONCERTA) PO SCH (08:56)
[2021-01-10] MEDS: OMEPRAZOLE 20 MG CAP PO SCH (08:56)
[2021-01-10] MEDS ORDERED: POTASSIUM CHLORIDE 10 MEQ SR TABLET PO SCH (09:00)
[2021-01-10] MEDS: NYSTATIN 100,000 UNITS/GM TOPICAL PWD 15 GM TOP SCH (09:00)
[2021-01-10] MEDS ORDERED: PREGABALIN 50 MG CAP (LYRICA) PO SCH (09:00)
[2021-01-10] MEDS ORDERED: CLOPIDOGREL 75 MG TAB PO SCH (09:00)
--- NOTE | 2021-01-10 09:50 | IPN ---
NEPHROLOGY PROGRESS NOTE DATE: 01/09/2021 SUBJECTIVE: Ms. Soliz is seen this morning on her bedside. I had seen her just about 10 minutes ago and she was talking normal and complaining of some shortness of breath; however, shortly after I left her room a Rapid Assessment Call was made and patient was re-assessed. She suddenly developed acute shortness of breath and dropped her oxygen saturation. She is felt to be in acute pulmonary edema. No fever or chills reported and she was in negative fluid balance of about 2.9 liters over the last 24 hours. Her diuretic was stopped yesterday afternoon due to hypernatremia and feeling of possible nephrotic syndrome as her serum albumin was low. She has received multiple doses of intravenous albumin over the last 24 hours. PHYSICAL EXAMINATION: Temperature 97.6 degrees Fahrenheit, heart rate 107 per minute and respiratory rate 30 per minute. Blood pressure was earlier 140/106 and now suddenly it is up to 230/106 mmHg. She is quite tachypneic and using oxygen via Venturi mask. Oxygen saturation is 97%. Head: Atraumatic. Neck: Neck veins are prominent. Heart: Tachycardia. Lungs: With bilateral rales. Abdomen: Obese and nontender and bowel sounds are normal. Extremities: Without any cyanosis or clubbing. She has a left below-knee amputation. Neurologically: She is awake and without any focal deficit. LABORATORY DATA: Today's labs show: Sodium 147, potassium 3.6, chloride 110, CO2 32, BUN 29, creatinine 1.99, glucose 71 and calcium 8.1. CPK level this morning 433. Troponin is 1.58 and albumin 2.5. PROBLEMS/PLAN: 1. Acute pulmonary edema: Patient developed sudden severe shortness of breath. Her troponin was already slightly higher than yesterday. We will give her intravenous Lasix 100 mg right now and then start with every 8 hours intravenous Lasix 60 mg. 2. Acute renal failure superimposed on chronic kidney disease: She did have an increase in the BUN and creatinine compared to her baseline. Over the last 12 hours there is no significant change in her kidney function. She did respond very well to intravenous diuretic. 3. Hypernatremia, mild: Mild hypernatremia is related to aggressive diuresis. It remains to be seen how she does over the next 24 hours. We will need to monitor her electrolytes at least once a day. 4. Hypokalemia: Her potassium is only 3.6 and she will be diuresed aggressively today. She remains at risk for worsening hypokalemia and electrolytes should be repeated again this afternoon. 5. Hypertension: Blood pressure jumped up significantly due to respiratory distress and is likely to improve once she gets diuresed. I recommend to continue with current anti-hypertensive medications and use nitroglycerin topically for better blood pressure control. She is already getting amlodipine 10 mg daily, carvedilol 6.25 mg q6h and hydralazine 25 mg q6h.
--- NOTE | 2021-01-10 09:53 | REP ---
INDICATION: sob. COMPARISON: Comparison chest x-ray January 09, 2021. TECHNIQUE: Portable upright AP chest radiograph. FINDINGS: A right subclavian central venous catheter is seen terminating in the expected location of superior vena cava. The patient is rotated somewhat to the right. Oxygen delivery tubing and EKG electrodes are seen. The lungs are symmetrically aerated and improved. The interstitial edema pattern seen on yesterday's radiograph is much improved. No pleural effusion is seen. No focal infiltrate. Heart does not appear to be enlarged.. IMPRESSION: Improved interstitial edema pattern.. <Electronically signed by Loi Ruiz > 01/10/21 0949
[2021-01-10 11:26] LABS: TROPONIN I 1.33 NG/ML (< 0.10)
[2021-01-10] MEDS ORDERED: AMLO1TAB25 PO (12:03)
[2021-01-10] MEDS ORDERED: ASPI-551 PO (12:03)
[2021-01-10] MEDS ORDERED: ALLO10TA PO (12:03)
[2021-01-10] MEDS ORDERED: LYRI300C PO (12:03)
[2021-01-10] MEDS ORDERED: ROPI4TAB3 PO (12:03)
[2021-01-10] MEDS ORDERED: DULO1CAP6 PO (12:03)
[2021-01-10] MEDS ORDERED: INSUDET SC (12:04)
[2021-01-10] MEDS ORDERED: KLOR10TA76 PO (12:04)
[2021-01-10] MEDS ORDERED: FURO80VL IV (12:04)
[2021-01-10] MEDS ORDERED: ACET1TAB55 PO (12:04)
[2021-01-10] MEDS ORDERED: HYDR25TA PO (12:04)
[2021-01-10] MEDS ORDERED: CARV6.25 PO (12:04)
[2021-01-10] MEDS ORDERED: INSUHUMDS SC ×2 (12:04)
[2021-01-10] MEDS ORDERED: CLOP75TA2 PO (12:04)
[2021-01-10] MEDS ORDERED: HYDR-3715 PO (12:04)
[2021-01-10 12:23] VITALS: BP 115/56
[2021-01-10] MEDS: HEPARIN DRIP 25,000 UNITS in IV 1 EA IV SCH (12:27)
--- NOTE | 2021-01-10 12:41 | DS.PDOC ---
Discharge Summary General Date of Admission Jan 06, 2021 at 20:06 Date of Discharge 01/10/21 Discharge Summary PROCEDURES PERFORMED DURING STAY: Central line placement DISCHARGE DIAGNOSES: NSTEMI Flash Pulmonary edema Hypertensive urgency Nephrotic syndrome Anasarca Hypoalbuminemia MELODY on CKD Hypoglycemia Hypokalemia Diastolic CHF exacerbation SECONDARY DIAGNOSIS: IDDM/brittle DM w gastroparesis, retinopathy and neuropathy (attends [facility]) CKD3 w proteinuria Baseline creatinine of 1.6 to 1.8 Migraines HTN HFpEF Asthma Bipolar disorder Factor V Leiden deficiency w hx of DVTs in upper and lower extremities on Eliquis L2/L5 spinal stenosis Hypogammaglobulinemia/CVID Fibromyalgia Spinabifida Right TMJ dysfunction Psoriasis RLS Temporal lobe seizures Hiatal hernia w GERD Fatty liver Hx of rectosigmoid ischemic colitis Hx of left sided [place] palsy Hx of stool transplant for C.diff L BKA to manage chronic wound infection w osteomyelitis R foot amputation / Hx of Charcot foot Morbid Obesity Cholecystectomy Hysterectomy Cervical discectomy & fusion R breast lumpectomy R ulnar / carpal tunnel release Appendectomy H/o port placement and removal COMPLICATIONS/CHIEF COMPLAINT: Acute Diastolic Heart Failure. HOSPITAL COURSE: This is a 50 yr old F w hx of multiple medical problems including brittle DM, CKD3, HTN, HFpEF, Asthma obesity, seizures, migraine, chronic back pain on narcotics who was sent by her PCP for evaluation of rapid weight gain on 37 lbs in 2 to 3 weeks, dyspnea and chest heaviness; she was admitted for Anasarca, massive fluid overload hypoalbuminemia, acute on chronic HFpEF & HTN Urgency. She was noted to have anasarca with severe albuminemia raising the suspicion for development of Nephrotic syndrome. Nephrology was consulted and work up has been started for nephrotic syndrome. She was getting aggressive diuresis with 25% albumin and high doses of lasix. She continued to be hypertensive in the 160-170 range systolic and her Bp meds were being adjusted. Her sugars were in the 50s to 60s range initially then improved to the normal range. She was not needing as much insulin as she usually needs at home. On 01/09/21 late morning she became suddenly extremely SOB while she was being cleaned in bed and her SpO2 dropped to 79% adn she became blue in the face needing nonrebreather oxygen, she at time became hypertensive to 220/100, She was moved to ICU. CXR showed pulmonary edema. Her EKG showed increased ST-T depressions in the lateral leads. Her troponin bumped to 1.5 from about 0.6 to 0.8 range on admission. She was felt to have an NSTEMI. She was started on aggressive BP control and diuresis. SHe was started on heprain infusion and given plavix. Cardiology was consulted. SHe was placed for transfer to higher level of care. On 01/10/21 she was offered a bed in [facility] and she is being transferred there under Dr Cramer. NSTEMI patient likely has underlying CAD and with hypertensive urgency and Flash pulmonary edema she had an NSTEMI on 01/09/21 stated on plavix and heparin infusion, continued on the ASA stopped Eliquis. Hypertensive urgency controlled with coreg q 6 hours, hydralazine q6 hours, nitro patch, amlodipine Flash pulmonary edema responded to 100 mg of lasix now continued on 60 mg IV q 8 hours. cumulative negative balance from 01/06/21 is 6.4 liters. MELODY on CKD Baseline likely 1.6 to 1.8 likely due to fluid overload, CHF exacerbation and aggressive diuresis. nephrology has been following. Hypoalbuminemia/ Anasarca/ Nephrotic syndrome Nephrology consult appreciated. Work up sent for nephrotic syndrome. Diastolic CHF exacerbation with anasarca due to hypoalbuminemia on Lasix Echo as below. Hypoglycemia / IDDM/brittle DM w gastroparesis, retinopathy and neuropathy s/p left BKA from diabetic foot infections and s/p right foot amputation for charcoal's joint. sugars low in 50s in the hospital. Home high doses of insulin held. on levemir and lispro. lyrica, cymbalta Hypokalemia potassium supplementation Anemia/ iron def/ anemia of chronic disease usual Hb about 9.0 to 10.0 slightly lower today at 8.4 h/o Temporal lobe seizures in none recently, on valporate. Migraine Divalproex Asthma Per pt stable Montelukast & Albuterol Transaminitis likely due to hepatic congestion from CHF, fatty liver Factor V Leiden deficiency / recurrent DVTs Eliquis at home now on heparin infusion. Chronic back pain and neck pain cervical DDD s/p discectomy and fusion. L2/L5 spinal stenosis / Fibromyalgia / bilateral TMJ dysfunction/ spina bifida occulta/ thoracic DDD lyrica, cymbalta, norco Bipolar disorder/ OCD/Anxiety Divalproex Trazodone stopped as she was very somnolent and confused after that, cymbalta dose reduced and lyrica dose lowered. Ropinirole made prn. RLS Ropinirole prn Hiatal hernia w GERD PPI Morbid obesity with BMI of 43/ with PA Does not use CPAP> Complicates care Glaucoma home eye drops H/o urinary retention on flomax at home H/o C. diff had stool transplant in the past Hypogammaglobulinemia/ CVID H/o bilateral carpal tunnel syn with b/l carpal tunnel release also had right ulner release. H/O left [place] palsy DISCHARGE MEDICATIONS: Please see below. ALLERGIES: Please see below. PHYSICAL EXAMINATION ON DISCHARGE: VITAL SIGNS: Please see below. General Exam: Positive: Alert, Cooperative, No Acute Distress, get SOB on moving from side to side in bed. Morbidly obese. Eye Exam: Positive: PERRLA, Conjunctiva & lids normal, EOMI; poor vision Negative: Sclera icteric ENT Exam: Positive: Atraumatic, Mucous membr. moist/pink, Pharynx Normal Neck Exam: Positive: Supple; JVD present Negative: thyromegaly Chest Exam: Positive: Normal air movement, bilateral basal crackles, distant breath sounds. Heart Exam: Positive: Rate Normal, Regular Rhythm, Normal S1, Normal S2; Negative: Murmurs, Rubs Abdomen Exam: Positive: Normal bowel sounds, Soft, Other (obese with parietal edema); Negative: Tenderness Extremity Exam: Positive: Edema; Negative: Clubbing, Cyanosis LABORATORY DATA: Please see below. ECHO: 2D MEASUREMENTS: IVS 1.4 cm LV 5.3 cm LVPW 1.4 cm LA 3.4 cm Aorta 2.8 cm IVC 1.9 cm DOPPLER MEASUREMENT Peak velocity across the aortic valve 1.2 m/s Peak velocity across the LVOT 1.0 m/s Mitral E 0.75 Mitral A 0.9 with a ratio of 0.8 2D COMMENTS: 1. Mildly increased left ventricular wall thickness with normal left ventricul ar size and normal global left ventricular systolic function. The estimated left ventricular systolic ejection fraction is 60% to 65%. 2. Normal left atrium. Normal right atrium and right ventricle. 3. Normal aortic root. 4. No pericardial effusion seen. 5. Mildly calcified aortic valve with normal leaflet excursion. Mildly calcified mitral annulus with normal anterior mitral valve leaflet motion. Normal tricuspid valve. The pulmonic valve and proximal pulmonary artery branches were not well visualized. 6. The inferior vena cava is mildly enlarged, central venous pressure might be elevated. Doppler with no significant valvular abnormalities detected. Abnormal relaxationpattern was noted across the mitral valve leaflets, as well as mitral valve annulus consistent with features of grade 1 left ventricular diastolic dysfunction. IMPRESSION: 1. Normal global left ventricular systolic function with mild concentric left ventricular hypertrophy. There are some features of grade 1 left ventricular diastolic dysfunction manifested by abnormal relaxation. 2. Aortic valve sclerosis without stenosis or aortic regurgitation. 3. Mitral annular calcification, isolated. 4. The inferior vena cava was mildly enlarged, central venous pressure might be elevated 5. Not mentioned above, this study was technically limited due to poor acoustic window. IMAGING: CXR: 01/10/21 FINDINGS: A right subclavian central venous catheter is seen terminating in the expected location of superior vena cava. The patient is rotated somewhat to the right. Oxygen delivery tubing and EKG electrodes are seen. The lungs are symmetrically aerated and improved. The interstitial edema pattern seen on yesterday's radiograph is much improved. No pleural effusion is seen. No focal infiltrate. Heart does not appear to be enlarged.. IMPRESSION: Improved interstitial edema pattern.. CXR: 01/09/21 A right-sided [id number] catheter is again noted with its tip in the expected location of superior vena cava. Heart size is borderline. Pulmonary vasculature and interstitial markings are prominent there. There is diffuse interstitial edema pattern which is new. Some fissural thickening is noted on the right. Interstitial markings are a little heavier in the right base than the left. No for ranjan pleural effusion is seen.. IMPRESSION: Mildly prominent heart. Diffuse interstitial edema pattern moderate to severe. New when compared with the January 06, 2021 study. ACTIVITY: [As tolerated]. DIET: 2 gm sodium diet, 1.8 liters. DISCHARGE PLAN: Transfer to [facility] DISCHARGE CONDITION: [Stable]. TIME SPENT ON DISCHARGE: 35 minutes. Vital Signs/I&Os Vital Signs Date Time Temp Pulse Resp B/P (MAP) Pulse Ox O2 Delivery O2 Flow Rate FiO2 01/10/21 08:30 3.0 01/10/21 08:00 105/58 (74) Nasal Cannula 01/10/21 05:01 20 01/10/21 04:00 97.7 65 96 01/09/21 13:02 40 I&O- Last 24 Hours up to 6 AM 01/10/21 06:00 Intake Total 600 ml Output Total 3200 ml Balance -2600 ml Laboratory Data Labs 24H Laboratory Tests 2 01/09/21 12:43: Total Creatine Kinase 509H, Creatine Kinase MB 8.1H, Creatine Kinase MB Relative Index 1.59, Troponin I 1.43H 01/09/21 17:05: Total Creatine Kinase 393H, Creatine Kinase MB 3.8H, Creatine Kinase MB Relative Index 0.97, Troponin I 1.55*H, Activated Partial Thromboplast Time 37.6 01/09/21 17:13: Bedside Glucose (Misc Panel) 122H 01/09/21 21:08: Bedside Glucose (Misc Panel) 262H 01/10/21 04:50: Immature Granulocyte % (Auto) 2.2, Neutrophils (%) (Auto) 67.7H, Lymphocytes (%) (Auto) 17.4L, Monocytes (%) (Auto) 11.6H, Eosinophils (%) (Auto) 0.7, Basophils (%) (Auto) 0.4, Neutrophils # (Auto) 8.3, Lymphocytes # (Auto) 2.1, Monocytes # (Auto) 1.4H, Eosinophils # (Auto) 0.1, Basophils # (Auto) 0.1, Nucleated Red Blood Cells % (auto) 0.0, Anion Gap 6L, Glomerular Filtration Rate 20.8L, Calcium Level 7.9L, Troponin I 1.33H 01/10/21 10:49: Activated Partial Thromboplast Time 59.5H 01/10/21 11:45: Bedside Glucose (Misc Panel) 109H CBC/BMP Laboratory Tests 01/10/21 04:50 FSBS Laboratory Tests Test 01/09/21 17:13 01/09/21 21:08 01/10/21 11:45 Range/Units Bedside Glucose (Misc Panel) 122 262 109 70-105 MG/DL Discharge Medications Scheduled Allopurinol (Allopurinol) 100 Mg Tablet, 200 MG PO QHS Amlodipine Besylate (Amlodipine Besylate) 10 Mg Tablet, 10 MG PO DAILY Aspirin (Aspirin EC) 81 Mg Tablet.dr, 81 MG PO DAILY Carvedilol (Carvedilol) 6.25 Mg Tablet, 6.25 MG PO Q6H Clopidogrel Bisulfate (Clopidogrel) 75 Mg Tablet, 75 MG PO DAILY Dexlansoprazole (Dexilant) 60 Mg Cap, 60 MG PO QHS, (Reported) Divalproex Sodium (Depakote) 500 Mg Tablet.dr, 500 MG PO BID, (Reported) Duloxetine Hcl (Duloxetine HCl) 60 Mg Cap, 60 MG PO QHS Ergocalciferol (Vitamin D2) (Vitamin D2) 50,000 Units Cap, 50,000 UNITS PO QWEEK, (Reported) TUESDAY Furosemide (Furosemide) 10 Mg/1 Ml Vial, 60 MG IV Q8H Hydralazine HCl (Hydralazine HCl) 25 Mg Tablet, 25 MG PO Q6H Insulin Detemir (Levemir) 100 Unit/1 Ml Vial, 15 UNITS SC QHS Insulin Human Lispro (Humalog) 100 Unit/1 Ml Vial, 0 UNITS SC AC Insulin Human Lispro (Humalog) 100 Unit/1 Ml Vial, 0 UNITS SC QHS Lactobacillus Acidophilus (Probiotic) 1 Each Capsule, 1 CAP PO QHS, (Reported) Latanoprost (Xelpros) 0.005% 2.5ML Drps.emuls, 1 DROP OU QHS, (Reported) Magnesium Chloride (Mag64) 64 Mg Tabcr, 64 MG PO QHS, (Reported) Montelukast Sodium (Montelukast Sodium) 10 Mg Tab, 10 MG PO QHS, (Reported) Nystatin (Nystatin Powder) 15 Gm Powder, 1 APLCT TOP DAILY, (Reported) APPLY TO GROIN/UNDER BREASTS Potassium Chloride (Klor-Con M10) 10 Meq Tab.er.prt, 20 MEQ PO BID Pregabalin (Lyrica) 300 Mg Cap, 150 MG PO BID Scheduled PRN Acetaminophen (Acetaminophen) 325 Mg Tablet, 650 MG PO Q4HP PRN for PAIN OR FEVER Albuterol Sulf (Albuterol Sulfate) 2.5 Mg/3 Ml Vial.neb, 2.5 MG INH Q4H PRN for SHORTNESS OF BREATH, (Reported) Cyclosporine (Restasis) 0.05 % Emu, 1 DROP OU BID PRN for DRY EYES, (Reported) Epinephrine (Epipen 2-Thomas) 0.3 Mg/0.3 Ml Inj, 0.3 MG SC PRN PRN for ALLERGIC REACTION, (Reported) Hydrocodone/Acetaminophen (Hydrocodone-Acetamin 5-325 mg) 1 Each Tablet, 1 TAB PO Q8HP PRN for MODERATE/SEVERE PAIN (PS 5-10) Methylphenidate HCl (Methylphenidate ER (LA)) 20 Mg Cpbp.50.50, 20 MG PO DAILY PRN for ADHD, (Reported) Ropinirole HCl (Ropinirole HCl) 4 Mg Tablet, 4 MG PO BIDP PRN for RESTLESSNESS TAKES Valacyclovir HCl (Valacyclovir) 1,000 Mg Tablet, 1 GM PO DAILY PRN for SHINGLES, (Reported) Allergies Coded Allergies: Latex, Natural Rubber (Verified Allergy, Severe, anaphylaxis, 09/18/20) Penicillins (Verified Allergy, Severe, anaphylaxis, CEPHALOSPORINS [place], 09/18/20) Sulfa (Sulfonamide Antibiotics) (Verified Allergy, Intermediate, hives, 09/18/20) clindamycin (Verified Allergy, Intermediate, Rash/mouth sores/BURNING OF SKIN, 09/18/20) fenofibrate (Verified Allergy, Mild, rash, 09/18/20) metformin (Verified Allergy, Mild, rash, 09/18/20) pineapple (Verified Allergy, Mild, swollen lips/mouth sores, 09/18/20) SURGICAL ANGIE (Verified Allergy, Unknown, 09/18/20) ALEC BOLES MD Jan 10, 2021 12:41
--- NOTE | 2021-01-10 12:57 | IPN ---
NEPHROLOGY PROGRESS NOTE DATE: 01/10/2021 SUBJECTIVE: Ms. Soliz is seen this morning on her bedside. She is feeling much better today, but still short of breath. Yesterday she had sudden flash pulmonary edema and also developed an increase in her troponin level. She is being transferred to [place] today for a possible cardiac catheterization. She did respond to diuretic and has been in negative fluid balance. PHYSICAL EXAMINATION: Temperature 97.7 degrees Fahrenheit, heart rate 66 per minute and respiratory rate 20 per minute. Blood pressure 115/56 mmHg and oxygen saturation 97% on 3 liters oxygen. Intake and output record from yesterday shows a negative fluid balance of about 2.5 liters; total urine output 3400 mL. Head: Atraumatic. Neck: Supple and JVD difficult to be assessed. Heart: Sounds are without a pericardial friction rub. Lungs: With basilar rales and slightly diminished breath sounds. Abdomen: Obese and nontender and bowel sounds are present. Extremities: Without any cyanosis or clubbing. Right leg edema is present and she has left below-knee amputation. LABORATORY DATA: Today's labs show WBC count 12.3, hemoglobin 8.4, hematocrit 26.2 and platelets 144. Sodium 146, potassium 3.5, CO2 32, BUN 46, creatinine 2.59, glucose 126 and calcium 7.9. Troponin is now down to 1.33 today. PROBLEMS/PLAN: 1. Acute pulmonary edema: Yesterday she developed sudden acute pulmonary edema with increase in troponin level and also sudden increase in her blood pressure about 200 mmHg. She was treated with nitrates and diuretics. She did diurese very well with 3.4 liters urine output. Her symptoms have improved, but she is still short of breath. We will continue with current diuretic regimen of 60 mg q6h until she gets transferred. 2. Mild hypernatremia related to aggrieve diuresis: It has slightly improved over the last couple of days. No specific intervention is needed at this point. 3. Hypokalemia: Her potassium level is down to 3.5 and I am going to start her on oral potassium chloride 20 mEq twice a day. 4. Acute kidney injury superimposed on chronic kidney disease: This is related to acute pulmonary edema and aggressive diuresis. She will certainly have increased risk for contrast induced nephropathy as she is going to have a cardiac catheterization. We will need to monitor her kidney function closely. 5. Anemia: Her anemia is slightly worse. There is no active bleeding noticed. She will need to be monitored closely and transfused if needed. 6. Disposition: Patient is anticipating transfer to [facility] today for a possible cardiac catheterization.
[2021-01-10 13:51] LABS: URINE TOTAL PROTEIN 396.6 MG/DL (0-12)
--- NOTE | 2021-01-10 17:40 | ECGEPIP ---
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
[2021-01-10] MEDS ORDERED: allopurinoL 100 MG TAB PO SCH (21:00)
[2021-01-10] MEDS ORDERED: DULoxetine 30 MG CAP (CYMBALTA) PO SCH (21:00)
[2021-01-13 16:08] LABS: ANCA-ATYPICAL <1:20 titer (Neg:<1:20); ANTI DS-DNA AB Negative (Negative); ANTI-GLOMERULAR BASEMENT MEMB 3 units (0-20); ANTINUCLEAR ANTIBODIES DIRECT Negative (Negative); CARDIOLIPIN IGA ANTIBODY <9 APL U/mL (0-11); CARDIOLIPIN IGG ANTIBODY <9 GPL U/mL (0-14); CARDIOLIPIN IGM ANTIBODY 13 MPL U/mL (0-12); COMPLEMENT TOTAL (CH50) > 60 U/mL (>41); CYTOPLASMIC NEUTROP AB ANCA-C <1:20 titer (Neg:<1:20); PERINUCLEAR AB ANCA-P <1:20 titer (Neg:<1:20)
== END 2021-01-10 12:50 | disposition short-term general hospital (02) | DRG 280 ==
LOC: M ED 12:16 → M ED INP 20:06 → ENRESERV 21:06 → M PCU 21:50 → M MS5PR 01-08 13:10 → M ICU 01-09 11:28 → M PCU 01-09 18:36
PROVIDERS: ADMIT Internal Medicine; ATTEND Internal Medicine Nephrology
PROC: 05H533Z Insertion of Infusion Device into Right Subclavian Vein, Percutaneous Approach (ICD-10-PCS; principal; 2021-01-06 14:21)
DX: I13.0 Hypertensive heart and chronic kidney disease with heart failure and stage 1 through stage 4 chronic kidney disease, or unspecified chronic kidney disease (principal); I21.4 Non-ST elevation (NSTEMI) myocardial infarction; I50.33 Acute on chronic diastolic (congestive) heart failure; N17.9 Acute kidney failure, unspecified; D68.2 Hereditary deficiency of other clotting factors; D80.1 Nonfamilial hypogammaglobulinemia; N04.9 Nephrotic syndrome with unspecified morphologic changes; Z68.41 Body mass index [BMI] 40.0-44.9, adult; E66.2 Morbid (severe) obesity with alveolar hypoventilation; E87.0 Hyperosmolality and hypernatremia; J45.909 Unspecified asthma, uncomplicated; I16.0 Hypertensive urgency; N18.30 Chronic kidney disease, stage 3 unspecified; G43.909 Migraine, unspecified, not intractable, without status migrainosus; F31.9 Bipolar disorder, unspecified; M79.7 Fibromyalgia; K44.9 Diaphragmatic hernia without obstruction or gangrene; K21.9 Gastro-esophageal reflux disease without esophagitis; E66.01 Morbid (severe) obesity due to excess calories; K76.0 Fatty (change of) liver, not elsewhere classified; G25.81 Restless legs syndrome; L40.8 Other psoriasis; Z79.01 Long term (current) use of anticoagulants; Z86.718 Personal history of other venous thrombosis and embolism; Q05.9 Spina bifida, unspecified; Z89.612 Acquired absence of left leg above knee; Z89.431 Acquired absence of right foot; E11.43 Type 2 diabetes mellitus with diabetic autonomic (poly)neuropathy; E11.319 Type 2 diabetes mellitus with unspecified diabetic retinopathy without macular edema; E11.649 Type 2 diabetes mellitus with hypoglycemia without coma; E87.6 Hypokalemia; Z79.899 Other long term (current) drug therapy; G47.33 Obstructive sleep apnea (adult) (pediatric); H40.9 Unspecified glaucoma; Z79.82 Long term (current) use of aspirin; Z79.4 Long term (current) use of insulin; Z88.0 Allergy status to penicillin; Z91.040 Latex allergy status; Z88.2 Allergy status to sulfonamides; Z91.018 Allergy to other foods; Z88.8 Allergy status to other drugs, medicaments and biological substances; D50.9 Iron deficiency anemia, unspecified

== ENCOUNTER → 2021-01-19 | Outpatient (REF) | payer OTHER ==
[~2021-01-19] MED LIST changes: +ACET1TAB55 PO; +ASPI-551 PO; +CLOP75TA2 PO; +DEPA1TAB3 PO; +FURO80VL IV; +HYDR-3715 PO; +HYDR-4517 PO; +HYDR25TA PO; +INSUDET SC; +XELP0.00 OU
[2021-01-19 14:50] LABS: CALCIUM LEVEL 8.7 MG/DL (8.5-10.1); CREATININE FOR GFR 2.85 MG/DL (0.55-1.30); GLOMERULAR FILTRATION RATE 18.6 (>51); MAGNESIUM LEVEL 2.2 MG/DL (1.8-2.4); PHOSPHORUS LEVEL 5.5 MG/DL (2.5-4.9); POTASSIUM SERUM 4.4 MEQ/L (3.5-5.1)
== END ==
LOC: M PLALAB 14:00
DX: N18.9 Chronic kidney disease, unspecified (principal)

== ENCOUNTER → 2021-01-22 | Outpatient (REF) | payer OTHER ==
[2021-01-22 15:59] LABS: CALCIUM LEVEL 8.8 MG/DL (8.5-10.1); CREATININE FOR GFR 2.09 MG/DL (0.55-1.30); GLOMERULAR FILTRATION RATE 26.6 (>51); PHOSPHORUS LEVEL 2.5 MG/DL (2.5-4.9)
== END ==
LOC: M SFHCPLAZ 13:45
PROVIDERS: ATTEND Family Medicine
DX: N18.9 Chronic kidney disease, unspecified (principal)

== ENCOUNTER → 2021-01-26 | Outpatient (CLI) | payer OTHER ==
--- NOTE | 2021-01-26 16:43 | REP ---
INDICATION: NEW DAILY PERSISTENT HEADACHE (NDPH). COMPARISON: None. TECHNIQUE: [id number] MRA of the brain performed. FINDINGS: The vertebral arteries are codominant. Basilar artery and die assembler are unremarkable. Internal carotid arteries, proximal and distal MCA branches are normal. A1 segments and ZOË branches are unremarkable. IMPRESSION: Normal MRA of the brain. No aneurysm, stenosis or occlusion identified. <Electronically signed by Benjamin Dallas > 01/26/21 [id number]
--- NOTE | 2021-01-26 16:50 | REP ---
INDICATION: NEW DAILY PERSISTENT HEADACHE (NDPH). COMPARISON: None. TECHNIQUE: MRI brain without contrast includes axial T1, T2, FLAIR, gradient echo, and diffusion-weighted imaging. FINDINGS: No evidence of restricted diffusion to suggest acute infarction. No gradient echo susceptibility to suggest hemorrhage. The ventricles and extra-axial CSF spaces are within normal limits. No mass effect or midline shift. No abnormal fluid collections. IMPRESSION: No acute findings. <Electronically signed by Benjamin Dallas > 01/26/21 [id number]
== END ==
LOC: M RAD 15:18
PROVIDERS: ATTEND Family Medicine
DX: G44.52 New daily persistent headache (NDPH) (principal)

== ENCOUNTER → 2021-01-26 | Outpatient (REF) | payer OTHER ==
[2021-01-26 18:49] LABS: PERCENT SATURATION 12.8 % (13.2-45.0)
== END ==
LOC: M LAB REF 17:04
PROVIDERS: ATTEND Internal Medicine Nephrology
DX: D50.9 Iron deficiency anemia, unspecified (principal)

== ENCOUNTER 2021-02-02 14:11 | Emergency (ER) | payer OTHER ==
[~2021-02-02] VITALS: Ht 177.8 cm; Wt 107.7 kg
[2021-02-02 17:13] LABS: BASO % 0.2 % (0.0-1.0); EOS # 0.1 10^3/uL (0.0-0.5); EOS % 1.3 % (0.0-3.0); HEMATOCRIT 33.8 % (36.0-47.0); HEMOGLOBIN 10.9 g/dl (12.0-15.5); LYMPH # 1.1 10^3/uL (1.5-5.0); MEAN CORPUSCULAR HEMOGLOBIN 28.1 pg (27.0-33.0); MEAN CORPUSCULAR HGB CONC 32.2 g/dl (32.0-36.5); MEAN CORPUSCULAR VOLUME 87.1 fl (80.0-96.0); MONO # 0.5 10^3/uL (0.0-0.8); MONO % 8.7 % (2.0-8.0); NEUTROPHILS # 3.5 10^3/uL (1.5-8.5); PLATELET COUNT, AUTOMATED 217 10^3/uL (150-450); RED BLOOD COUNT 3.88 10^6/uL (4.00-5.40); WHITE BLOOD COUNT 5.2 10^3/uL (4.0-10.0)
[2021-02-02 17:43] LABS: CALCIUM LEVEL 8.8 MG/DL (8.5-10.1); CREATININE FOR GFR 1.43 MG/DL (0.55-1.30); GLOMERULAR FILTRATION RATE 41.2 (>51); POTASSIUM SERUM 4.7 MEQ/L (3.5-5.1)
[2021-02-02 18:55] VITALS: BP 162/80
== END 2021-02-02 18:58 | disposition home or self-care (01) ==
LOC: M ED 14:11
DX: F45.0 Somatization disorder (principal); F41.9 Anxiety disorder, unspecified; N18.30 Chronic kidney disease, stage 3 unspecified; E11.9 Type 2 diabetes mellitus without complications; I10 Essential (primary) hypertension; E78.5 Hyperlipidemia, unspecified; K21.9 Gastro-esophageal reflux disease without esophagitis; F31.9 Bipolar disorder, unspecified; M51.37 Other intervertebral disc degeneration, lumbosacral region; G47.33 Obstructive sleep apnea (adult) (pediatric); K31.84 Gastroparesis; Z79.4 Long term (current) use of insulin; Z79.82 Long term (current) use of aspirin; Z79.899 Other long term (current) drug therapy; Z91.018 Allergy to other foods; Z91.040 Latex allergy status; Z91.89 Other specified personal risk factors, not elsewhere classified; Z88.0 Allergy status to penicillin; Z88.2 Allergy status to sulfonamides; Z88.1 Allergy status to other antibiotic agents; Z88.8 Allergy status to other drugs, medicaments and biological substances

== ENCOUNTER → 2021-02-20 | Outpatient (REF) | payer OTHER ==
[2021-02-20 17:11] LABS: CALCIUM LEVEL 8.1 MG/DL (8.5-10.1); CREATININE FOR GFR 1.32 MG/DL (0.55-1.30); GLOMERULAR FILTRATION RATE 45.2 (>51)
== END ==
LOC: M SFHCPLAZ 14:49
PROVIDERS: ATTEND Family Medicine
DX: R60.0 Localized edema (principal); N18.31 Chronic kidney disease, stage 3a

== ENCOUNTER 2021-02-26 12:42 | Outpatient (CLI) | payer OTHER ==
[~2021-02-26] VITALS: Ht 177.8 cm; Wt 112.0 kg
[~2021-02-26 12:42] MED LIST changes: +IRON SUCROSE 25 MG in NS 25 ML IV ONE; +IRON SUCROSE 300 MG in NS 250 ML OVER 90 MIN. IV ONE
[2021-02-26] MEDS ORDERED: diphenhydrAMINE 50MG/ML VIAL (J1200) IV ONE (13:05)
[2021-02-26 13:06] VITALS: BP 172/90
[2021-02-26 15:30] VITALS: BP 162/80
== END 2021-02-26 15:30 | disposition home or self-care (01) ==
LOC: M INFU 12:42
PROVIDERS: ATTEND Internal Medicine Nephrology
DX: D50.9 Iron deficiency anemia, unspecified (principal); Z88.1 Allergy status to other antibiotic agents; Z88.2 Allergy status to sulfonamides; Z88.8 Allergy status to other drugs, medicaments and biological substances; Z91.040 Latex allergy status
CPT/HCPCS: 96365; 96366; 96375; J1200; J1756

== ENCOUNTER 2021-03-04 15:38 | Inpatient (IN) | payer OTHER ==
[~2021-03-04] VITALS: Ht 177.8 cm; Wt 100.9 kg
[~2021-03-04 15:38] MED LIST changes: -IRON SUCROSE 25 MG in NS 25 ML IV ONE; -IRON SUCROSE 300 MG in NS 250 ML OVER 90 MIN. IV ONE
[2021-03-04 16:30] VITALS: BP 142/73
[2021-03-04] MEDS ORDERED: SYMB80INH INH (17:26)
[2021-03-04] MEDS ORDERED: DULO1CAP6 PO (17:26)
[2021-03-04] MEDS ORDERED: BUME2TAB3 PO (17:26)
[2021-03-04] MEDS ORDERED: LYRI300C PO (17:26)
[2021-03-04] MEDS ORDERED: SPIR50TA4 PO (17:26)
[2021-03-04] MEDS ORDERED: POTA10TA17 PO (17:26)
[2021-03-04] MEDS ORDERED: ROPI4TAB3 PO (17:26)
[2021-03-04] MEDS ORDERED: OMEP-221 PO (17:26)
[2021-03-04] MEDS ORDERED: HYDR-3719 PO (17:26)
[2021-03-04] MEDS ORDERED: ZYLO300T6 PO (17:26)
[2021-03-04] MEDS ORDERED: ASPI81TA26 PO (17:26)
[2021-03-04] MEDS ORDERED: TRES100I SC (17:26)
[2021-03-04] MEDS ORDERED: LEVA1.2519 NEB (17:26)
[2021-03-04 17:33] LABS: BASO % 0.6 % (0.0-1.0); EOS # 0.2 10^3/uL (0.0-0.5); EOS % 3.2 % (0.0-3.0); HEMATOCRIT 29.4 % (36.0-47.0); HEMOGLOBIN 9.9 g/dl (12.0-15.5); LYMPH # 1.5 10^3/uL (1.5-5.0); LYMPH % 23.8 % (24.0-44.0); MEAN CORPUSCULAR HEMOGLOBIN 29.6 pg (27.0-33.0); MEAN CORPUSCULAR HGB CONC 33.7 g/dl (32.0-36.5); MEAN CORPUSCULAR VOLUME 87.8 fl (80.0-96.0); MONO # 0.6 10^3/uL (0.0-0.8); MONO % 8.5 % (2.0-8.0); NEUTROPHILS # 4.1 10^3/uL (1.5-8.5); NEUTROPHILS % 62.5 % (36.0-66.0); PLATELET COUNT, AUTOMATED 155 10^3/uL (150-450); RED BLOOD COUNT 3.35 10^6/uL (4.00-5.40); WHITE BLOOD COUNT 6.5 10^3/uL (4.0-10.0)
[2021-03-04 18:01] LABS: ALBUMIN 1.8 GM/DL (3.2-5.2); BILIRUBIN,TOTAL 0.2 MG/DL (0.2-1.0); CALCIUM LEVEL 7.5 MG/DL (8.5-10.1); CK-MB VALUE MASS 8.4 NG/ML (<3.6); CREATININE FOR GFR 2.49 MG/DL (0.55-1.30); GLOMERULAR FILTRATION RATE 21.7 (>51); MAGNESIUM LEVEL 1.8 MG/DL (1.8-2.4); MB/CK RELATIVE INDEX 1.5 (< OR =4); TOTAL PROTEIN 4.6 GM/DL (6.4-8.2); TROPONIN I 0.09 NG/ML (< 0.10)
--- NOTE | 2021-03-04 18:08 | REP ---
INDICATION: SOB. COMPARISON: 01/10/2021. TECHNIQUE: Single portable AP view of the chest was performed. FINDINGS: Mild bilateral interstitial edema/infiltrate is essentially unchanged compared to the prior study. No consolidating infiltrate is seen. Heart is not significantly enlarged. The mediastinal silhouette is unchanged. IMPRESSION: No change in the mild bilateral interstitial edema/infiltrate since prior study. <Electronically signed by Jomar Akbar > 03/04/21 [id number]
[2021-03-04] MEDS ORDERED: ELIQ5TAB PO (18:22)
[2021-03-04] MEDS ORDERED: rOPINIRole 2MG TAB PO PRN (18:35)
[2021-03-04] MEDS ORDERED: ALBUTEROL SULFATE 2.5 MG/0.5 ML INH NEB SOLN INH PRN (18:35)
[2021-03-04] MEDS: POTASSIUM CHLORIDE 10 MEQ SR TABLET PO SCH ×2 (18:46→22:58)
--- NOTE | 2021-03-04 18:49 | HPEPDOC ---
[facility] Medical History & Physical Date of Admission March 04, 2021 Date of Service: March 04, 2021 Primary Care Physician: RIAZ LOPEZ MD Attending Physician: ABBE VILLARREAL MD History and Physical CHIEF COMPLAINT: fluid retention HISTORY OF PRESENT ILLNESS: Rebeca Soliz is a 50 year old female who was admitted directly to [facility] from the nephrology office due to fluid retention. She reports 2-3 weeks of worsening fluid retention. She has also noted decreased urine output and states she only had about 200mLs of urine output daily for the past 2 days. She currently reports some pelvic discomfort. No burning, urinary urgency, or urinary frequency. She has noticed worsening shortness of breath on exertion which has started to limit her activity level. She notes some pressure across her entire chest as well. The shortness of breath and chest pressure have been present the past week and worse over the past two days. PAST MEDICAL HISTORY: DM with nephropathy, gastroparesis, retinopathy, and neuropathy CKD stage 3 Migraines Chronic HTN HFpEF Asthma Bipolar disorder Factor V Leiden deficiency w hx of DVTs in upper and lower extremities L2/L5 spinal stenosis Hypergammaglobulinemia Fibromyalgia Spina bifida Right TMJ dysfunction Psoriasis RLS Temporal lobe seizures Hiatal hernia w GERD Fatty liver Hx of rectosigmoid ischemic colitis Hx of left sided [place] palsy Hx of C. 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 Guerra Left BKA for chronic wound/osteomyelitis Bilateral cataracts L breast I&D SOCIAL HISTORY: Current smoker, about 1ppd for the past 6 weeks. Smoked about 1ppd for about 20- 30 years on and off. No alcohol use. No illicit substance use. Live at home with . FAMILY HISTORY: Father, , CAD, pacemaker, prostate CA Mother, , osteoporosis, HTN, CVA multiple family members -DM ALLERGIES: Please see below. REVIEW OF SYSTEMS: CONSTITUTIONAL: Denies fevers, chills, night sweats, fatigue. HEENT: Denies change in vision, change in hearing. CARDIOVASCULAR: Denies chest pain, palpitations, lightheadedness. RESPIRATORY: Denies cough, wheezing. GASTROINTESTINAL: Reports chronic constipation and vomiting from gastroparesis Denies abdominal pain, diarrhea, blood in stool. GENITOURINARY: Denies dysuria, urinary frequency, urinary urgency. SKIN: Denies new rash, lesions. MUSCULOSKELETAL: Denies new joint pain or muscle aches. NEUROLOGICAL: Reports chronic migraine headaches. Denies dizziness, weakness. PSYCHIATRIC: Denies change in mood. HOME MEDICATIONS: Please see below. PHYSICAL EXAMINATION: VITAL SIGNS: See below GENERAL: Alert, comfortable, in no acute distress HEENT: Normocephalic, atraumatic, sclera anicteric, moist mucous membranes NECK: Supple, trachea midline, no lymphadenopathy CARDIOVASCULAR: Regular rate and rhythm, normal S1 and S2. No murmurs, rubs, or gallops RESPIRATORY: Clear to auscultation bilaterally with equal air entry bilaterally. No wheezing, rhonchi, or rales. ABDOMEN: Tender over the suprapubic area. No CVA tenderness. Soft, nondistended, bowel sounds present EXTREMITIES: Left BKA. 3+ edema in bilateral legs, with sacral edema and abdominal wall edema. SKIN: [place], warm, dry NEUROLOGIC: Alert and oriented x3 to person, place and time. No focal deficits appreciated PSYCHIATRIC: Mood and affect appropriate LABORATORY DATA: See below. IMAGING: None. MICROBIOLOGY: Please see below. ASSESSMENT: 50 year old female with extensive PMHx including DM with nephropathy/gastroparesis/retinopathy/neuropathy, CKD stage 3, HTN, HFpEF, asthma, factor V Leiden deficiency, who presented as a direct admit from nephrology office for management of fluid overload and possible urinary retention PLAN: # Fluid retention - check CXR, BNP - likely due to renal dysfunction, see below - hold PO diuretics. Will start on IV lasix per nephrology recommendations # MELODY on CKD stage 3 - suspected urinary retention by nephrology, oropeza catheter ordered. check renal U/S for hydronephrosis - UA and urine electrolytes ordered - trend BMP daily - avoid nephrotoxic agents - 2g Na restriction and 2000mL fluid restriction - weight daily. strict I&O's - monitor on TM for electrolyte disturbance - Nephrology consulted, appreciate input and recommendations # Hypokalemia - replete as indicated. monitor on telemetry # Poor peripheral access - hx of poor access with multiple PICC placements and central line placements - general surgery consulted for central line placement, appreciate their assistance # Diabetes mellitus - Consistent carb diet. SSI ACHS. Hypoglycemic protocol - continue 20 units levemir per home basal insulin dosing # Hx recent NSTEMI - check cardiac marker panel and EKG - continue aspirin # HTN - no current home meds, monitor BP # CHF - hold home PO diuretics as noted above # Factor V Leiden deficiency - continue home Eliquis # Seizure disorder - continue home depakote # Asthma - continue home inhalers/meds # GERD - hold home PPI due to MELODY #RLS - continue home requip # Chronic pain - hold home Lyrica. continue Cymbalta, may titrate down if MELODY not improved # Iron deficiency anemia DVT Prophylaxis: on Eliquis full anticoagulation DISPOSITION: admitted inpatient to PCU pending clinical improvement, expect d/c home when improved, Home Medications Scheduled Allopurinol (Zyloprim) 300 Mg Tablet, 300 MG PO QHS Apixaban (Eliquis) 5 Mg Tablet, 5 MG PO BID Aspirin (Aspirin EC) 81 Mg Tablet.dr, 162 MG PO DAILY Budesonide/Formoterol (Symbicort 80-4.5 Mcg Inhaler) 6.9 Gm Hfa.aer.ad, 2 PUFF INH BID Bumetanide (Bumetanide) 2 Mg Tablet, 4 MG PO DAILY Bumetanide (Bumetanide) 2 Mg Tablet, 2 MG PO DAILY @ 1400 Divalproex Sodium (Depakote) 500 Mg Tablet.dr, 500 MG PO BID Duloxetine Hcl (Duloxetine HCl) 60 Mg Capsule.dr, 120 MG PO QHS Ergocalciferol (Vitamin D2) (Vitamin D2) 50,000 Units Cap, 50,000 UNITS PO QWEEK TUESDAY Insulin Degludec (Tresiba) 100 Unit/1 Ml Vial, 20 UNIT SC QHS Lactobacillus Acidophilus (Probiotic) 1 Each Capsule, 1 CAP PO QHS Latanoprost (Xelpros) 0.005% 2.5ML Drps.emuls, 1 DROP OU QHS Magnesium Chloride (Mag64) 64 Mg Tabcr, 64 MG PO QHS Montelukast Sodium (Montelukast Sodium) 10 Mg Tab, 10 MG PO QHS Nystatin (Nystatin Powder) 15 Gm Powder, 1 APLCT TOP DAILY APPLY TO GROIN/UNDER BREASTS Omeprazole (Omeprazole) 40 Mg Capsule.dr, 40 MG PO DAILY Potassium Chloride (Potassium Chloride) 10 Meq Tab.er.prt, 20 MEQ PO BID Pregabalin (Lyrica) 300 Mg Capsule, 300 MG PO BID Spironolactone (Spironolactone) 50 Mg Tablet, 50 MG PO DAILY Scheduled PRN Albuterol Sulf (Albuterol Sulfate) 2.5 Mg/3 Ml Vial.neb, 2.5 MG INH Q4H PRN for SHORTNESS OF BREATH Cyclosporine (Restasis) 0.05 % Emu, 1 DROP OU BID PRN for DRY EYES Epinephrine (Epipen 2-Thomas) 0.3 Mg/0.3 Ml Inj, 0.3 MG SC PRN PRN for ALLERGIC REACTION Hydrocodone/Acetaminophen (Hydrocodone-Acetamin 10-325 mg) 1 Each Tablet, 1 TAB PO Q4H PRN for PAIN Levalbuterol HCl (Levalbuterol HCl) 1.25 Mg/3 Ml Vial.neb, 1 VIAL NEB Q6H PRN for SOB/WHEEZING Ropinirole HCl (Ropinirole HCl) 4 Mg Tablet, 8 MG PO QHS PRN for RESTLESSNESS Valacyclovir HCl (Valacyclovir) 1,000 Mg Tablet, 1 GM PO DAILY PRN for SHINGLES Allergies Coded Allergies: Latex, Natural Rubber (Verified Allergy, Severe, anaphylaxis, 09/18/20) Penicillins (Verified Allergy, Severe, anaphylaxis, CEPHALOSPORINS [place], 09/18/20) Sulfa (Sulfonamide Antibiotics) (Verified Allergy, Intermediate, hives, 09/18/20) clindamycin (Verified Allergy, Intermediate, Rash/mouth sores/BURNING OF S KIN, 09/18/20) fenofibrate (Verified Allergy, Mild, rash, 09/18/20) metformin (Verified Allergy, Mild, rash, 09/18/20) pineapple (Verified Allergy, Mild, swollen lips/mouth sores, 09/18/20) SURGICAL ANGIE (Verified Allergy, Unknown, 09/18/20) GME ATTESTATION GME ATTESTATION My faculty preceptor for this patient encounter was physically present during the encounter and was fully available. All aspects of the patient interview, examination, medical decision making process, and medical care plan development were reviewed and approved by the faculty preceptor. The faculty preceptor is aware and concurs with the plan as stated in the body of this note and will attest to such by his/her cosignature. ATTENDING NOTE I, Abbe Villarreal, have independently examined this patient and performed my own physical exam, as well as reviewed the documentation and edited where necessary. I have discussed in detail with the resident / student the findings and plan of treatment as documented by the resident / student and edited their note. I agree with their findings and treatment plan and have edited their documentation. I will continue to follow the patient during this hospital stay. MANSOOR DAVIS D.O. March 04, 2021 17:39 ABBE VILLARREAL MD March 04, 2021 18:57
[2021-03-04] MEDS ORDERED: GLUCAGON INJ 1MG VIAL SC PRN (18:50)
[2021-03-04] MEDS ORDERED: GLUCOSE 4GM CHEW TABLET PO PRN (18:50)
[2021-03-04] MEDS ORDERED: DEXTROSE 50% 50 ML SYRINGE IV PRN (18:50)
[2021-03-04] MEDS ORDERED: FUROSEMIDE 100MG/10ML VIAL (J1940) IV SCH (19:00)
[2021-03-04 19:16] LABS: SODIUM,RANDOM URINE < 10 MEQ/L; UREA NITROGEN RANDOM URINE 317 MG/DL
[2021-03-04 19:40] VITALS: BP 141/63
[2021-03-04 19:45] VITALS: BP 138/66
[2021-03-04 19:50] VITALS: BP 138/64
[2021-03-04 19:55] VITALS: BP 134/66
[2021-03-04 20:00] VITALS: BP 139/64
[2021-03-04] MEDS: SYMBICORT 80/4.5MCG INHALER 6GM INH SCH (20:00)
--- NOTE | 2021-03-04 20:15 | IPNPDOC ---
Text Note Date of Service The patient was seen on 03/04/21. NOTE I was asked to place a central line on Ms. Soliz as she is difficult to find a peripheral line and she needs it for IV lasix tonight. I tried to place this under US guidance on right IJ, was able to find the IJ but could not cannulate. I was not able to find the right subclavian despite multiple attempts. CXR pending to check for pneumothorax. Hospitalist oyster tonger informed. VS,Pam, I+O VS, Pam, I+O Laboratory Tests 03/04/21 17:18 Vital Signs Date Time Temp Pulse Resp B/P (MAP) Pulse Ox O2 Delivery O2 Flow Rate FiO2 03/04/21 20:00 82 18 139/64 (89) 95 Room Air 03/04/21 19:40 97.9 BRAN FAN MD March 04, 2021 20:15
[2021-03-04] MEDS: HumaLOG INSULIN (NovoLOG) PER UNIT SC SCH (20:51)
[2021-03-04] MEDS: MONTELUKAST 10 MG TAB PO SCH (20:56)
[2021-03-04] MEDS: DULoxetine 30 MG CAP (CYMBALTA) PO SCH (20:56)
[2021-03-04] MEDS: APIXABAN 5 MG TAB (ELIQUIS) PO SCH (20:56)
[2021-03-04] MEDS: LACTOBACILLUS ACIDOPHILUS CAP (BACID) PO SCH (20:56)
[2021-03-04] MEDS: DIVALPROEX 500 MG TAB PO SCH (20:57)
[2021-03-04] MEDS: LEVEMIR (INSULIN DETEMIR) 1 UNITS/0.01ML SC SCH (20:58)
--- NOTE | 2021-03-04 21:17 | REPVR ---
PROCEDURE INFORMATION: Exam: XR Chest Exam date and time: 03/04/2021 8:24 PM Age: 50 years old Clinical indication: Other: Failed right ij/subclavian tlc placement check for pneumo TECHNIQUE: Imaging protocol: XR of the chest. Views: 1 view. COMPARISON: NE PORTABLE CHEST X-RAY 03/04/2021 5:40 PM FINDINGS: Tubes, catheters and devices: External monitoring devices are present. Lungs: Hazy ground-glass opacity left lung base. Pleural spaces: Unremarkable. No pleural effusion. No pneumothorax. Heart/Mediastinum: Unremarkable. No cardiomegaly. Bones/joints: Unremarkable. IMPRESSION: 1. No pneumothorax 2. Left lower lobe infiltrate Electronically signed by: Sharyn Mejia On 03/04/2021 21:16:36 PM
[2021-03-05] VITALS: BP 150/70
[2021-03-05] MEDS: FUROSEMIDE 100MG/10ML VIAL (J1940) IV SCH ×2 (02:48→08:15)
[2021-03-05 04:00] VITALS: BP 145/80
[2021-03-05 05:19] LABS: HEMATOCRIT 29.4 % (36.0-47.0); HEMOGLOBIN 9.7 g/dl (12.0-15.5); MEAN CORPUSCULAR VOLUME 87.8 fl (80.0-96.0); PLATELET COUNT, AUTOMATED 141 10^3/uL (150-450); RED BLOOD COUNT 3.35 10^6/uL (4.00-5.40); WHITE BLOOD COUNT 5.9 10^3/uL (4.0-10.0)
[2021-03-05 05:40] LABS: CALCIUM LEVEL 7.9 MG/DL (8.5-10.1); CREATININE FOR GFR 2.52 MG/DL (0.55-1.30); GLOMERULAR FILTRATION RATE 21.4 (>51); MAGNESIUM LEVEL 1.8 MG/DL (1.8-2.4); POTASSIUM SERUM 3.5 MEQ/L (3.5-5.1)
[2021-03-05] MEDS: SYMBICORT 80/4.5MCG INHALER 6GM INH SCH ×2 (07:07→19:43)
--- NOTE | 2021-03-05 07:09 | REP ---
INDICATION: ?hydronephrosis COMPARISON: None TECHNIQUE: Real time dobbs scale ultrasound examination using curved array transducer. FINDINGS: Bilateral kidneys are normal in contour, size, echogenicity, and reniform shape. Increased central sinus fat is consistent with age-related changes. No hydronephrosis, nephrolithiasis, cystic or renal mass lesion. Right kidney measures 10.2 x 4.4 x 5.6 cm. Left kidney measures 11.6 x 5.2 x 5.9 cm. Bladder is collapsed. IMPRESSION: 1. Normal renal ultrasound. <Electronically signed by Clint Sullivan > 03/05/21 0712
[2021-03-05] MEDS: HumaLOG INSULIN (NovoLOG) PER UNIT SC SCH ×4 (07:30→21:28)
[2021-03-05 07:33] VITALS: BP 180/82
--- NOTE | 2021-03-05 08:09 | ECGEPIP ---
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
[2021-03-05] MEDS: DIVALPROEX 500 MG TAB PO SCH ×2 (08:15→21:29)
[2021-03-05] MEDS: NYSTATIN 100,000 UNITS/GM TOPICAL PWD 15 GM TOP SCH (08:15)
[2021-03-05] MEDS: LACTOBACILLUS ACIDOPHILUS CAP (BACID) PO SCH ×4 (08:16→21:29)
[2021-03-05] MEDS: ANEXSIA, NORCO 7.5MG/325MG TABLET(HYDROCODONE/APAP) PO PRN ×2 (08:16→17:07)
[2021-03-05] MEDS: APIXABAN 5 MG TAB (ELIQUIS) PO SCH ×2 (08:16→21:29)
[2021-03-05] MEDS: ASPIRIN 81MG ENTERIC TABLET PO SCH (08:16)
[2021-03-05] MEDS: MAGNESIUM OXIDE 400MG TAB (MAG-OX) PO SCH (08:16)
--- NOTE | 2021-03-05 11:08 | IPNPDOC ---
Text Note Date of Service The patient was seen on 03/05/21. NOTE SUBJECTIVE: Patient was seen and examined this morning at bedside. She states she has not had much urine output overnight. Her neck is sore from the central line a ttempts. Otherwise she is feeling well. No shortness of breath but she has not been up moving around much overnight. She is hoping to get a dose of Lyrica as she feels she has side effects when this is stopped abruptly. She agrees to once a day dosing for now due to her MELODY. OBJECTIVE: VITAL SIGNS: See below GENERAL: Alert, comfortable, in no acute distress HEENT: Normocephalic, atraumatic, sclera anicteric, moist mucous membranes NECK: Supple, trachea midline, no lymphadenopathy CARDIOVASCULAR: Regular rate and rhythm, normal S1 and S2. No murmurs, rubs, or gallops RESPIRATORY: Clear to auscultation bilaterally with equal air entry bilaterally. No wheezing, rhonchi, or rales. ABDOMEN: Tender over the suprapubic area. No CVA tenderness. Soft, nondistended, bowel sounds present EXTREMITIES: Left BKA. 3+ edema in bilateral legs, with sacral edema and abdominal wall edema. SKIN: [place], warm, dry NEUROLOGIC: Alert and oriented x3 to person, place and time. No focal deficits appreciated PSYCHIATRIC: Mood and affect appropriate ASSESSMENT/PLAN: 50 year old female with extensive PMHx including DM with nephropathy/gastroparesis/retinopathy/neuropathy, CKD stage 3, HTN, HFpEF, asthma, factor V Leiden deficiency, who presented as a direct admit from nephrology office for management of fluid overload and possible urinary retention # MELODY on CKD stage 3 with fluid retention - suspected component of urinary retention which she has had previously, oropeza catheter ordered. - renal U/S negative for hydronephrosis. UA and urine electrolytes reviewed - FeNa and FeUrea suggestive of pre-renal with low urine Na, suggesting she is not adequately diuresing - trend BMP daily - avoid nephrotoxic agents - hold PO diuretics. Continue with IV diuretics, lasix and chlorothiazide, per nephrology recommendations - 2g Na restriction and 2000mL fluid restriction - weight daily. strict I&O's - monitor on TM for electrolyte disturbance - Nephrology consulted, appreciate input and recommendations # Hypokalemia, improved - PO supplement BID. additional repletion as indicated. monitor on telemetry # Poor peripheral access - hx of poor access with multiple PICC placements and central line placements - general surgery consulted for central line placement, line could not be placed - One peripheral IV obtained overnight. - ordered PICC placement for today for better access. # Diabetes mellitus - Consistent carb diet. SSI ACHS. Hypoglycemic protocol - continue 20 units levemir per home basal insulin dosing # Hx recent NSTEMI - cardiac marker panel and EKG stable on admission - continue aspirin # HTN - no current home meds, monitor BP # CHF - hold home PO diuretics as noted above # Factor V Leiden deficiency - continue home Eliquis # Seizure disorder - continue home depakote # Asthma - continue home inhalers/meds # GERD - hold home PPI due to MELODY #RLS - continue home requip # Chronic pain - restart home Lyrica at once daily dosing. continue Cymbalta, may titrate down if MELODY not improved # Iron deficiency anemia DVT Prophylaxis: on Eliquis full anticoagulation DISPOSITION: admitted inpatient to PCU pending clinical improvement, expect d/c home when improved VS,Toñobone, I+O VS, Fishbone, I+O Laboratory Tests 03/04/21 17:18 03/05/21 04:49 Vital Signs Date Time Temp Pulse Resp B/P (MAP) Pulse Ox O2 Delivery O2 Flow Rate FiO2 03/05/21 08:46 18 Room Air 03/05/21 07:33 96.3 83 180/82 (114) 96 I&O- Last 24 Hours up to 6 AM 03/05/21 06:00 Intake Total 400 ml Output Total 855 ml Balance -455 ml GME ATTESTATION GME ATTESTATION My faculty preceptor for this patient encounter was physically present during the encounter and was fully available. All aspects of the patient interview, examination, medical decision making process, and medical care plan development were reviewed and approved by the faculty preceptor. The faculty preceptor is aware and concurs with the plan as stated in the body of this note and will attest to such by his/her cosignature. ATTENDING NOTE I, Abbe Villarreal, have independently examined this patient and performed my own physical exam, as well as reviewed the documentation and edited where necessary. I have discussed in detail with the resident / student the findings and plan of treatment as documented by the resident / student and edited their note. I agree with their findings and treatment plan and have edited their documentation. I will continue to follow the patient during this hospital stay. MANSOOR DAVIS D.O. March 05, 2021 11:08 ABBE VILLARREAL MD March 05, 2021 12:52
[2021-03-05 12:00] VITALS: BP 140/80
[2021-03-05] MEDS: POTASSIUM CHLORIDE 10 MEQ SR TABLET PO SCH ×2 (12:24→21:29)
[2021-03-05] MEDS: PREGABALIN 100 MG CAP (LYRICA) PO SCH (12:25)
[2021-03-05] MEDS: FUROSEMIDE injection 250 MG in D5W 225 ML IV SCH (12:25)
[2021-03-05] MEDS ORDERED: CHLOROTHIAZIDE 500 MG VIAL (J1205 PER 1) IV ONE (14:00)
[2021-03-05 16:00] VITALS: BP 157/67
[2021-03-05] MEDS ORDERED: LIDOCAINE 1% MDV 20ML VIAL As Ordered ONE (16:21)
--- NOTE | 2021-03-05 16:52 | REP ---
INDICATION: line placement. COMPARISON: 03/04/2021 latest prior TECHNIQUE: Portable FINDINGS: The technique utilized in obtaining the radiograph has magnified the cardiac silhouette and accentuated the interstitial markings. The superior mediastinal structures are midline. The cardiac silhouette is unremarkable in size, shape, and position. The diaphragmatic surfaces of the lungs are regular, and the costophrenic angles are clear. The pulmonary juarez are clear. The imaged osseous structures are intact. Since the last exam a right-sided subclavian central venous catheter has been placed the tip of which is in the superior vena cava. IMPRESSION: There is no acute cardiopulmonary disease. Recent central venous catheter placement as described above. <Electronically signed by Figueroa Corcoran > 03/05/21 1061
[2021-03-05 19:33] VITALS: BP 146/64
[2021-03-05] MEDS: LEVEMIR (INSULIN DETEMIR) 1 UNITS/0.01ML SC SCH (21:28)
[2021-03-05] MEDS: DULoxetine 30 MG CAP (CYMBALTA) PO SCH (21:29)
[2021-03-05] MEDS: MONTELUKAST 10 MG TAB PO SCH (21:29)
[2021-03-06] VITALS: BP 154/94
[2021-03-06 04:00] VITALS: BP 162/74
[2021-03-06 05:50] LABS: HEMATOCRIT 29.7 % (36.0-47.0); MEAN CORPUSCULAR HEMOGLOBIN 29.7 pg (27.0-33.0); MEAN CORPUSCULAR HGB CONC 33.7 g/dl (32.0-36.5); MEAN CORPUSCULAR VOLUME 88.1 fl (80.0-96.0); PLATELET COUNT, AUTOMATED 157 10^3/uL (150-450); RED BLOOD COUNT 3.37 10^6/uL (4.00-5.40)
[2021-03-06 06:13] LABS: CALCIUM LEVEL 7.7 MG/DL (8.5-10.1); CREATININE FOR GFR 2.42 MG/DL (0.55-1.30); GLOMERULAR FILTRATION RATE 22.4 (>51); MAGNESIUM LEVEL 1.8 MG/DL (1.8-2.4); POTASSIUM SERUM 3.9 MEQ/L (3.5-5.1)
[2021-03-06] MEDS: FUROSEMIDE injection 250 MG in D5W 225 ML IV SCH (06:46)
[2021-03-06] MEDS: SYMBICORT 80/4.5MCG INHALER 6GM INH SCH ×2 (07:16→20:56)
[2021-03-06 07:41] VITALS: BP 132/79
--- NOTE | 2021-03-06 08:22 | RO ---
OPERATIVE NOTE DATE OF OPERATION: 03/05/2021 PREOPERATIVE DIAGNOSIS: Need for vascular access. POSTOPERATIVE DIAGNOSIS: Need for vascular access. PROCEDURE: Insertion of right subclavian central line. Attempts to place central lines both IJ and subclavian on the right side by general surgery and attempts to insert a PICC line by interventional radiology have been unsuccessful and I have been asked to gain vascular access.. SURGEON: Jayden Contreras M.D. PLATFORM BUILDER: None. ANESTHESIA: 1% Lidocaine. DESCRIPTION OF PROCEDURE: The patient's right infraclavicular fossa was prepped and draped in the usual sterile fashion. Subcutaneous tissue and clavicular periosteum were infiltrated with 1% Lidocaine. Vein was found on the second pass and the wire was threaded without difficulty. Ports were aspirated and flushed without difficulty. The line was secured with a 3-0 silk suture. The patient tolerated the procedure well and a chest x-ray is pending. [facility]
[2021-03-06] MEDS: NYSTATIN 100,000 UNITS/GM TOPICAL PWD 15 GM TOP SCH (08:28)
[2021-03-06] MEDS: HumaLOG INSULIN (NovoLOG) PER UNIT SC SCH ×4 (08:28→20:15)
[2021-03-06] MEDS: APIXABAN 5 MG TAB (ELIQUIS) PO SCH ×2 (08:29→20:18)
[2021-03-06] MEDS: ASPIRIN 81MG ENTERIC TABLET PO SCH (08:29)
[2021-03-06] MEDS: POTASSIUM CHLORIDE 10 MEQ SR TABLET PO SCH ×2 (08:29→20:18)
[2021-03-06] MEDS: PREGABALIN 100 MG CAP (LYRICA) PO SCH (08:29)
[2021-03-06] MEDS: LACTOBACILLUS ACIDOPHILUS CAP (BACID) PO SCH ×4 (08:30→20:17)
[2021-03-06] MEDS: DIVALPROEX 500 MG TAB PO SCH ×2 (08:30→20:18)
[2021-03-06] MEDS: MAGNESIUM OXIDE 400MG TAB (MAG-OX) PO SCH (08:30)
--- NOTE | 2021-03-06 09:16 | REP ---
PROCEDURE NAME: PICC LINE INSERTION W/SITERITE CLINICAL INFORMATION: poor peripheral access. COMPARISON: None. PROCEDURE DESCRIPTION: The procedure was performed by DREW Joshua, under the direct supervision of Dr. Akbar. The risks and benefits of the procedure were explained to the patient and an informed consent was obtained both verbally and written. Directly prior to the start of the procedure a formal time-out was completed in the procedure room. The right basilic and brachial veins were localized using ultrasound guidance. The skin was prepped and draped in sterile fashion. mL of 1% lidocaine 10 mg/mL was used as a local anesthetic. Using ultrasound guidance multiple attempts to gain access and insert to wire were attempted. Access was gained multiple times, and a 0.018 guidewire was inserted but would not advanced. Due to the patient's poor renal function it was decided not to inject contrast as per the patient's request, the procedure was aborted and the patient was sent back to the unit. The patient tolerated the procedure well and there were no immediate complications. CONCLUSION: Attempted PICC line insertion into the right arm. 0.8 minutes of fluoroscopy time was utilized for this procedure. Some fluoroscopic images are performed with last image hold technology. These images require no additional radiation. <Electronically signed by Cherie Blankenship > 03/05/21 1717 <Electronically signed by Jomar Akbar > 03/06/21 [id number]
--- NOTE | 2021-03-06 09:33 | CR ---
CONSULTATION DATE: 03/05/2021 REQUESTING PHYSICIAN: Abbe Villarreal MD CONSULTING PHYSICIAN: Steve Parson MD REASON FOR CONSULTATION: Management of acute renal failure and fluid overload. CHIEF COMPLAINT: Patient was sent from the office because of worsening renal failure, persistent weight gain and edema. HISTORY OF PRESENT ILLNESS: Rebeca Soliz is a 50-year-old female with a past medical history of chronic kidney disease stage 3; best baseline creatinine of 1.2 as per previous records, insulin dependent diabetes, hypertension, heart failure with preserved ejection fraction, recent NSTEMI, multiple other comorbidities as mentioned below. She was following up with nephrology service as an outpatient. Despite being on Bumex 4 mg p.o. twice a day and Spironolactone 50 mg p.o. daily, she was getting persistently worsening lower extremity edema, fluid gain, abdominal distention, and inability to walk. As per patient, she had gained about 20 pounds in the last one month. She was also having worsening renal failure. So patient was sent to the hospital for direct admission under the hospitalist service. Nephrology service was called on board today because she was not responding to the I.V. Lasix injections that she was getting. I saw and evaluated the patient today morning at the bedside. Patient reports that she is still feeling the same as yesterday. She got Bishop catheter placed yesterday for possible urinary retention, however despite after placement of Bishop catheter, she is not making much urine. 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 PAST SURGICAL HISTORY: She is status post cholecystectomy, status post left below knee amputation, status post hysterectomy for prolapse and endometriosis, status post cervical discectomy, right breast lumpectomy, appendectomy, diagnostic laparoscopies, bilateral cataract surgery and left breast incision and drainage. ALLERGIES: She is allergic to latex, penicillins, surgical lawrence, sulfa, Clindamycin, Fenofibrate, Metformin and pineapple. FAMILY HISTORY: No significant family history of end-stage renal disease requiring hemodialysis. SOCIAL HISTORY: She is an active smoker; she smokes one pack per day. Denies any illicit drug abuse or alcohol abuse. She lives at home. REVIEW OF SYSTEMS: CONSTITUTIONAL: She denies any fevers or chills, but she reports inability to walk and weakness. EYES: She denies any blurry vision, double vision, but she has baseline retinopathy. ENT: She denies any dysphagia, odynophagia. CARDIOVASCULAR: She reports worsening lower extremity edema. RESPIRATORY: She reports mild to moderate shortness of breath. GI: She denies any nausea or vomiting, but she does report diabetic gastroparesis. GENITOURINARY: She reports decreased urine output. MUSCULOSKELETAL: She reports muscle tightness and inability to wear her prosthesis. SKIN: She denies any rashes or ulcers. HEMATOLOGIC/ONCOLOGICAL: Denies any easy bleeding or bruising. HOSTEL PARENT: She does report inability to walk because of edema and tightness of the muscles, otherwise denies any strokes or seizures. All other review of systems is negative. PHYSICAL EXAMINATION: GENERAL: Patient is awake, alert and oriented x3, lying in bed. VITAL SIGNS: Temperature 96.7 degrees Fahrenheit, blood pressure 146/64, pulse 80, respiratory rate 14, saturating 96% on room air. INTAKE AND OUTPUT: Urine output recorded yesterday as 380 mL and by the time I saw her in the morning she had only made 475 mL of urine. HEAD AND NECK: Extraocular muscles intact. Pupils equally round and reactive to light. Mucous membranes are moist. Neck is supple. Mildly elevated JVD. CARDIOVASCULAR: S1, S2, regular rate. 3+ edema of the right lower extremity and 2+ edema of the left lower extremity. RESPIRATORY: Mildly decreased breath sounds at the bases. ABDOMEN: Obese. I could not appreciate any organomegaly, but I was able to appreciate abdominal wall edema. MUSCULOSKELETAL: Left below knee amputation site stump has edema as well. HOSTEL PARENT: No focal deficit. Power is 5/5 in bilateral upper extremities. LABORATORY REVIEW: CBC showed WBC 5.9, hemoglobin 9.7, platelets 141,000. Urinalysis done yesterday showed it was turbid, 3+ protein and 4 wbc. Urine random creatinine was 190. Random sodium was less than 10. BMP done today morning showed sodium 144, potassium 3.5, chloride 111, bicarb 27, BUN 33, creatinine 2.5. Calcium 7.9. Magnesium 1.8. Pro-BNP 8,071 yesterday. Albumin 1.8. MICROBIOLOGY: Respiratory viral panel is negative. IMAGING: A chest x-ray was done, which showed no acute cardiopulmonary process. A renal ultrasound was done yesterday, which showed normal renal ultrasound, no acute pathology. CURRENT INPATIENT MEDICATIONS: Patient's medications were all reviewed by myself. She is on Hydrocodone/Acetaminophen tablet every 4 hour p.r.n. pain, Albuterol p.r.n., Eliquis 5 mg p.o. twice a day, aspirin 162 mg p.o. daily, Symbicort two puffs twice a day. I gave her a dose of Chlorothiazide 500 mg I.V. times one dose. She is on Depakote 500 mg p.o. twice a day, Cymbalta 120 mg p.o. daily. She was getting Lasix 80 mg I.V. every 6 hours, which was stopped by myself. Insulin Levemir 20 units subcutaneous q.h.s., Lispro sliding scale, Pepcid one tablet p.o. with meals, magnesium oxide 400 mg p.o. daily, Montelukast 10 mg p.o. q.h.s., potassium chloride 40 mEq p.o. twice a day, Lyrica 300 mg p.o. daily, Requip 8 mg p.o. q.h.s. p.r.n. restlessness. ASSESSEMENT AND PLAN: 1. Acute renal failure superimposed on chronic kidney disease stage 3: Patient's baseline creatinine is 1.3; she came in with a creatinine of 2.4. Most likely it is secondary to cardiorenal syndrome and decompensated congestive heart failure. Okay to continue the diuretics at this time. 2. Acute and chronic decompensated diastolic congestive heart failure: Patient has significant volume overload. She is not responding to I.V. Lasix injection. I started the patient on Lasix drip I.V. along with Diuril 500 mg I.V. times one dose for sequential nephron calin. If she does not respond to this regimen, then she will probably need I.V. albumin infusion as well because her albumin level is low. 3. Anemia and chronic kidney disease: Hemoglobin level is 9.7, which is optimal for now. She was getting I.V. Venofer injections as an outpatient. 4. Insulin dependent diabetes: Patient is currently on insulin Levemir and sliding scale Lispro. Glucose levels are within the acceptable range. 5. Hypokalemia: Patient's potassium was low yesterday. She was given oral potassium. Continue potassium 40 mEq p.o. twice a day. Spironolactone was stopped because of worsening renal failure. 6. Recent non-ST elevation [place] and coronary artery disease: Continue current dose of aspirin. She is also on Eliquis. Patient was taking Metoprolol, which has been stopped now. Heart rate is controlled. I would avoid using Metoprolol at this time because sometimes that can cause peripheral edema as well. Thank you for involving me in the care of this patient. I shall be happy to follow the patient along with you tomorrow morning.
--- NOTE | 2021-03-06 13:23 | REP ---
INDICATION: AMS. COMPARISON: Comparison is made with prior head CT studies dated December 02, 2020, May 27, 2020, and April 20, 2019.. TECHNIQUE: Helical scanning is acquired. 5 mm axial images were reformatted. Coronal MPR images were generated. FINDINGS: Bone window settings demonstrate an intact bony calvarium. There is no evidence of skull fracture or incidental bony calvarial lesion. The visualized paranasal sinuses appear clear. No intraorbital abnormality is seen. On soft tissue window setting images; the lateral, third, and fourth ventricles are normal in size and position. Akbar-white differentiation pattern is normal above and below the tentorium. There are is no evidence of intracranial hemorrhage. No mass, edema, infarction, or midline shift is seen. No extra-axial fluid collection is appreciated. There is vascular calcification in the distal internal carotid arteries again noted. There is minimal generalized volume loss again noted unchanged. Digital butter printer radiograph is unremarkable. The patient is edentulous. IMPRESSION: Minimal generalized volume loss. No acute intracranial abnormality.. <Electronically signed by Loi Ruiz > 03/06/21 [id number]
--- NOTE | 2021-03-06 14:15 | IPNPDOC ---
Text Note Date of Service The patient was seen on 03/06/21. NOTE SUBJECTIVE: Patient was seen and examined this morning at bedside. She feels her swelling has improved. She had just returned from the bathroom and states her shortness of breath is much improved. In the afternoon, patient's nurse notified me the patient's mental status had changed. When I re-evaluated the patient, she is A&Ox3 but confused regarding situation, stating she is here for constipation. She also says multiple other things out of context and states there are "puppies on the ceiling". She is picking at her telemetry wires and was noted by the nurse to be pulling at her oropeza earlier as well as trying to poke holes in her oropeza bag. OBJECTIVE: VITAL SIGNS: See below GENERAL: Alert, comfortable, in no acute distress HEENT: Normocephalic, atraumatic, sclera anicteric, moist mucous membranes NECK: Supple, trachea midline, no lymphadenopathy CARDIOVASCULAR: Regular rate and rhythm, normal S1 and S2. No murmurs, rubs, or gallops RESPIRATORY: Clear to auscultation bilaterally with equal air entry bilaterally. No wheezing, rhonchi, or rales. ABDOMEN: Tender over the suprapubic area. No CVA tenderness. Soft, nondistended, bowel sounds present EXTREMITIES: Left BKA. 2+ LE edema, improvement of sacral edema and abdominal wall edema. SKIN: [place], warm, dry NEUROLOGIC: Alert and oriented x3 to person, place and time. No focal deficits appreciated PSYCHIATRIC: Mood and affect appropriate ASSESSMENT/PLAN: 50 year old female with extensive PMHx including DM with nephropathy/gastroparesis/retinopathy/neuropathy, CKD stage 3, HTN, HFpEF, asthma, factor V Leiden deficiency, who presented as a direct admit from nephrology office for management of fluid overload and possible urinary retenti on # MELODY on CKD stage 3 with fluid retention - suspected component of urinary retention which she has had previously, oropeza catheter ordered. - renal U/S negative for hydronephrosis. UA and urine electrolytes reviewed - FeNa and FeUrea suggestive of pre-renal with low urine Na, suggesting she is not adequately diuresing - trend BMP daily - avoid nephrotoxic agents - hold PO diuretics. s/p IV chlorothiazide dose. Continue with IV lasix gtt, per nephrology recommendations - 2g Na restriction and 2000mL fluid restriction - weight daily. strict I&O's - monitor on TM for electrolyte disturbance - Nephrology consulted, appreciate input and recommendations # Altered mental status - Hypertensive initially which has improved without medication - CT head negative for acute changes - UA stable from admission (show protein, rbcs, glucose), no infection - lab work pending including CBCD, CMP, Mg, trop, ammonia # Hypokalemia, resolved - PO supplement BID. additional repletion as indicated. monitor on telemetry # Poor peripheral access - hx of poor access with multiple PICC placements and central line placements - general surgery consulted for central line placement, line could not be placed - PICC placement was attempted and could not be complete - Right subclavian central line was placed 03/05/[address] Contreras, appreciate his assistance # Diabetes mellitus - Consistent carb diet. SSI ACHS. Hypoglycemic protocol - continue 20 units levemir per home basal insulin dosing # Hx recent NSTEMI - cardiac marker panel and EKG stable on admission. no chest pain. - continue aspirin # HTN - no current home meds, monitor BP # CHF - hold home PO diuretics as noted above # Factor V Leiden deficiency - continue home Eliquis # Seizure disorder - continue home depakote # Asthma - continue home inhalers/meds # GERD - hold home PPI due to MELODY #RLS - continue home requip # Chronic pain - confusion today could be due to Lyrica. Will decrease dose to 75mg BID (takes 300 BID at home) - continue Cymbalta, may titrate down if MELODY not improved # Iron deficiency anemia - H/H stable DVT Prophylaxis: on Eliquis full anticoagulation DISPOSITION: admitted inpatient to PCU pending clinical improvement, expect d/c home when improved VS,Fishbone, I+O VS, Fishbone, I+O Laboratory Tests 03/06/21 05:38 Vital Signs Date Time Temp Pulse Resp B/P (MAP) Pulse Ox O2 Delivery O2 Flow Rate FiO2 03/06/21 12:00 97.7 101 19 97 Room Air 03/06/21 07:41 132/79 (96) I&O- Last 24 Hours up to 6 AM 03/06/21 06:00 Intake Total 1424.2 ml Output Total 5225 ml Balance -3800.8 ml GME ATTESTATION GME ATTESTATION My faculty preceptor for this patient encounter was physically present during the encounter and was fully available. All aspects of the patient interview, examination, medical decision making process, and medical care plan development were reviewed and approved by the faculty preceptor. The faculty preceptor is aware and concurs with the plan as stated in the body of this note and will attest to such by his/her cosignature. ATTENDING NOTE I, Abbe Villarreal, have independently examined this patient and performed my own physical exam, as well as reviewed the documentation and edited where necessary. I have discussed in detail with the resident / student the findings and plan of treatment as documented by the resident / student and edited their note. I agree with their findings and treatment plan and have edited their documentation. I will continue to follow the patient during this hospital stay. MANSOOR DAVIS D.O. March 06, 2021 14:15 ABBE VILLARREAL MD March 06, 2021 15:00
[2021-03-06 14:32] LABS: BASO % 0.6 % (0.0-1.0); EOS # 0.1 10^3/uL (0.0-0.5); EOS % 0.9 % (0.0-3.0); HEMATOCRIT 31.2 % (36.0-47.0); HEMOGLOBIN 10.5 g/dl (12.0-15.5); LYMPH # 0.6 10^3/uL (1.5-5.0); LYMPH % 11.2 % (24.0-44.0); MEAN CORPUSCULAR HEMOGLOBIN 29.7 pg (27.0-33.0); MEAN CORPUSCULAR HGB CONC 33.7 g/dl (32.0-36.5); MEAN CORPUSCULAR VOLUME 88.1 fl (80.0-96.0); MONO # 0.6 10^3/uL (0.0-0.8); MONO % 10.5 % (2.0-8.0); NEUTROPHILS # 4.1 10^3/uL (1.5-8.5); PLATELET COUNT, AUTOMATED 154 10^3/uL (150-450); RED BLOOD COUNT 3.54 10^6/uL (4.00-5.40); WHITE BLOOD COUNT 5.4 10^3/uL (4.0-10.0)
[2021-03-06 15:06] LABS: ALBUMIN 1.8 GM/DL (3.2-5.2); ALT/SGPT 21 U/L (12-78); BILIRUBIN,DIRECT < 0.1 MG/DL (0.0-0.2); BILIRUBIN,TOTAL 0.2 MG/DL (0.2-1.0); BLOOD UREA NITROGEN 37 MG/DL (7-18); CALCIUM LEVEL 7.5 MG/DL (8.5-10.1); CARBON DIOXIDE LEVEL 29 MEQ/L (21-32); CHLORIDE LEVEL 109 MEQ/L (98-107); CREATININE FOR GFR 2.11 MG/DL (0.55-1.30); GLOMERULAR FILTRATION RATE 26.3 (>51); GLUCOSE, FASTING 102 MG/DL (70-100); MAGNESIUM LEVEL 1.8 MG/DL (1.8-2.4); PHOSPHORUS LEVEL 3.7 MG/DL (2.5-4.9); POTASSIUM SERUM 3.9 MEQ/L (3.5-5.1); SODIUM LEVEL 144 MEQ/L (136-145); TOTAL PROTEIN 4.9 GM/DL (6.4-8.2); TROPONIN I 0.11 NG/ML (< 0.10)
[2021-03-06 15:50] VITALS: BP 173/77
[2021-03-06 20:00] VITALS: BP 133/65
[2021-03-06] MEDS: DULoxetine 30 MG CAP (CYMBALTA) PO SCH (20:17)
[2021-03-06] MEDS: LEVEMIR (INSULIN DETEMIR) 1 UNITS/0.01ML SC SCH (20:17)
[2021-03-06] MEDS: MONTELUKAST 10 MG TAB PO SCH (20:17)
--- NOTE | 2021-03-06 22:56 | IPN ---
NEPHROLOGY PROGRESS NOTE DATE: 03/06/2021 SUBJECTIVE: The patient was seen and examined at the bedside today morning. She is currently on a Lasix drip. She reports that her edema is getting better. Tightness in the lower extremities is also improving. She is diuresing well with the Lasix drip and renal function is stable despite excessive IV diuresis. OBJECTIVE: VITAL SIGNS: Temperature is 96 degrees Fahrenheit, blood pressure 133/65, pulse is 85, respiratory rate of 18, saturating 96% on room air. INTAKE AND OUTPUT: Urine output recorded as 2.9 liters yesterday, 2.8 liters so far in the morning by the time I saw her. Weight in the bed scale is 119.4 kg. PHYSICAL EXAMINATION: GENERAL APPEARANCE: The patient is awake, alert, oriented x3. She has morbid obesity, sitting up in the bed. HEAD AND NECK: Extraocular muscles intact. Pupils are equally round and reactive to light. Mucous membranes are moist. Neck is supple. There is mildly elevated jugular venous distention. CARDIOVASCULAR: S1, S2, regular rate. EXTREMITIES: 2+ edema of the right lower extremity, 2+ edema of the left lower extremity. RESPIRATORY: Chest is clear to auscultation bilaterally. Bilaterally currently. ABDOMEN: Soft, obese, positive bowel sounds. Abdominal wall edema is noted. MUSCULOSKELETAL: Edema of the right lower extremity and she has a left below the knee amputation and amputation stump also has edema. FRONT LOADER RESIDENTIAL DRIVER: No focal deficits. Power is 5/5 in all extremities. LAB REVIEW: CBC showed a white blood cell count of 5.4, hemoglobin 10.5, platelet count 154. Urinalysis done today showed 3+ protein. BMP in the morning showed sodium of 144, potassium 3.9, chloride 109, bicarbonate 29, BUN 37, creatinine is 2.1; it was 2.4 yesterday. Albumin is 1.8. IMAGING: A CAT scan of the head was done which showed minimal generalized volume loss. No intracranial abnormality. CURRENT INPATIENT MEDICATIONS: The patient's medications were all reviewed by myself. She is currently on Lasix 12.4 mL per hour which is equal to 12.4 mg per hour. She continues to be on Potassium Chloride 40 mEq p.o. twice daily. Lyrica dose has been decreased to 75 mg p.o. twice daily. ASSESSMENT AND PLAN: 1. Anasarca - The patient continues to be on IV Lasix drip. She is diuresing well. Edema is getting better. Continue with current dose at this time. 2. Acute renal failure superimposed on chronic kidney disease - The patient is volume overloaded. She needs diuresis and with the diuresis her creatinine is also slowly getting better. 3. Anemia and chronic kidney disease and iron deficiency - The patient was getting IV iron infusions as an outpatient. Hemoglobin is stable at 10.5. Continue to monitor for now. 4. Hypokalemia it has resolved with the oral potassium now. 5. Coronary artery disease and recent N-STEMI - continue Aspirin, Eliquis. 6. Peripheral neuropathy - This patient is getting drowsy. Her Lyrica dose has been decreased to 75 mg twice daily.
[2021-03-07 04:00] VITALS: BP 185/86
[2021-03-07 08:00] VITALS: BP 178/92
[2021-03-07] MEDS: SYMBICORT 80/4.5MCG INHALER 6GM INH SCH ×2 (08:03→19:56)
[2021-03-07] MEDS ORDERED: SODIUM CHLORIDE 0.9% INJ 10 ML SYR IV PRN (08:35)
[2021-03-07 09:17] LABS: HEMATOCRIT 36.1 % (36.0-47.0); MEAN CORPUSCULAR HEMOGLOBIN 29.7 pg (27.0-33.0); MEAN CORPUSCULAR HGB CONC 33.2 g/dl (32.0-36.5); MEAN CORPUSCULAR VOLUME 89.4 fl (80.0-96.0); PLATELET COUNT, AUTOMATED 208 10^3/uL (150-450); RED BLOOD COUNT 4.04 10^6/uL (4.00-5.40); WHITE BLOOD COUNT 4.8 10^3/uL (4.0-10.0)
[2021-03-07] MEDS: APIXABAN 5 MG TAB (ELIQUIS) PO SCH ×2 (09:18→20:40)
[2021-03-07] MEDS: PREGABALIN 75 MG CAP(LYRICA) PO SCH ×2 (09:18→20:40)
[2021-03-07] MEDS: DIVALPROEX 500 MG TAB PO SCH ×2 (09:18→20:41)
[2021-03-07] MEDS: LACTOBACILLUS ACIDOPHILUS CAP (BACID) PO SCH ×4 (09:18→20:40)
[2021-03-07] MEDS: ASPIRIN 81MG ENTERIC TABLET PO SCH (09:18)
[2021-03-07] MEDS: MAGNESIUM OXIDE 400MG TAB (MAG-OX) PO SCH (09:18)
[2021-03-07] MEDS: POTASSIUM CHLORIDE 10 MEQ SR TABLET PO SCH ×2 (09:19→20:40)
[2021-03-07] MEDS: HumaLOG INSULIN (NovoLOG) PER UNIT SC SCH ×4 (09:19→20:39)
[2021-03-07] MEDS: NYSTATIN 100,000 UNITS/GM TOPICAL PWD 15 GM TOP SCH (09:20)
[2021-03-07 09:40] LABS: CALCIUM LEVEL 8.3 MG/DL (8.5-10.1); CREATININE FOR GFR 1.93 MG/DL (0.55-1.30); GLOMERULAR FILTRATION RATE 29.1 (>51); POTASSIUM SERUM 3.8 MEQ/L (3.5-5.1)
[2021-03-07] MEDS: FUROSEMIDE injection 250 MG in D5W 225 ML IV SCH (11:06)
[2021-03-07 12:00] VITALS: BP 173/87
--- NOTE | 2021-03-07 12:18 | IPNPDOC ---
Text Note Date of Service The patient was seen on 03/07/21. NOTE SUBJECTIVE: Patient was seen and examined this morning at bedside. She states she is feeling well today. She remembers feeling tired yesterday, but does not remember being confused. She does remember her visiting in the afternoon. She states she is having some pelvic pressure which is bothering her. She states she has had this before and typically is relieved by urinating, but currently she has a oropeza in place. OBJECTIVE: VITAL SIGNS: See below GENERAL: Alert, comfortable, in no acute distress HEENT: Normocephalic, atraumatic, sclera anicteric, moist mucous membranes NECK: Supple, trachea midline, no lymphadenopathy CARDIOVASCULAR: Regular rate and rhythm, normal S1 and S2. No murmurs, rubs, or gallops RESPIRATORY: Clear to auscultation bilaterally with equal air entry bilaterally. No wheezing, rhonchi, or rales. ABDOMEN: Tender over the suprapubic area. No CVA tenderness. Soft, nondistended, bowel sounds present EXTREMITIES: Left BKA. 2+ LE edema, improvement of sacral edema and abdominal wall edema. SKIN: [place], warm, dry NEUROLOGIC: Alert and oriented x3 to person, place and time. No focal deficits appreciated PSYCHIATRIC: Mood and affect appropriate ASSESSMENT/PLAN: 50 year old female with extensive PMHx including DM with nephropathy/gastroparesis/retinopathy/neuropathy, CKD stage 3, HTN, HFpEF, asthma, factor V Leiden deficiency, who presented as a direct admit from nephrology office for management of fluid overload and possible urinary retention # MELODY on CKD stage 3 with fluid retention - suspected component of urinary retention which she has had previously, oropeza catheter ordered. - renal U/S negative for hydronephrosis. UA and urine electrolytes reviewed - FeNa and FeUrea suggestive of pre-renal with low urine Na, suggesting she is not adequately diuresing - hold PO diuretics. s/p IV chlorothiazide dose x1. Continue with IV lasix gtt, per nephrology recommendations - 2g Na restriction and 2000mL fluid restriction. weight daily. strict I&O's. avoid nephrotoxic agents. trend BMP daily. - monitor on TM for electrolyte disturbance - Nephrology consulted, appreciate input and recommendations - continues to have good urine output daily with negative 2000-3000mls # Altered mental status - was A&Ox3 but not making sense when talking on 03/06 around noon - Hypertensive initially which has improved without medication - CT head negative for acute changes - UA stable from admission (show protein, rbcs, glucose), no infection - lab work including FSBS, CBCD, CMP, Mg, trop, ammonia did not reveal a clear cause - may be related to Lyrica dosing with MELODY. switched from 300mg daily to 75mg BID. - per this is common for the patient when she is hospitalized, has always resolved spontaneously - improved today # Hypokalemia, resolved - PO supplement BID. additional repletion as indicated. monitor on telemetry # Poor peripheral access - hx of poor access with multiple PICC placements and central line placements - general surgery consulted for central line placement, line could not be placed - PICC placement was attempted and could not be complete - Right subclavian central line was placed 03/05/[address] Contreras, appreciate his assistance # Diabetes mellitus - Consistent carb diet. SSI ACHS. Hypoglycemic protocol - continue 20 units levemir per home basal insulin dosing # Hx recent NSTEMI - cardiac marker panel and EKG stable on admission. no chest pain. - continue aspirin # HTN - no current home meds, monitor BP # CHF - hold home PO diuretics as noted above # Factor V Leiden deficiency - continue home Eliquis # Seizure disorder - continue home depakote # Asthma - continue home inhalers/meds # GERD - hold home PPI due to MELODY #RLS - continue home requip # Chronic pain - continue at decreased dose of Lyrica, 75mg BID (takes 300 BID at home) - continue Cymbalta, may titrate down if MELODY not improved # Iron deficiency anemia - H/H stable DVT Prophylaxis: on Eliquis full anticoagulation DISPOSITION: admitted inpatient to PCU pending clinical improvement, expect d/c home when improved VS,Fishbone, I+O VS, Fishbone, I+O Laboratory Tests 03/06/21 14:21 03/06/21 14:22 03/07/21 09:02 Vital Signs Date Time Temp Pulse Resp B/P (MAP) Pulse Ox O2 Delivery O2 Flow Rate FiO2 03/07/21 08:00 97.4 88 18 178/92 (120) 95 Room Air I&O- Last 24 Hours up to 6 AM 03/07/21 06:00 Intake Total 955 ml Output Total 4925 ml Balance -3970 ml GME ATTESTATION GME ATTESTATION My faculty preceptor for this patient encounter was physically present during the encounter and was fully available. All aspects of the patient interview, examination, medical decision making process, and medical care plan development were reviewed and approved by the faculty preceptor. The faculty preceptor is aware and concurs with the plan as stated in the body of this note and will attest to such by his/her cosignature. ATTENDING NOTE I, Abbe Villarreal, have independently examined this patient and performed my own physical exam, as well as reviewed the documentation and edited where necessary. I have discussed in detail with the resident / student the findings and plan of treatment as documented by the resident / student and edited their note. I agree with their findings and treatment plan and have edited their documentation. I will continue to follow the patient during this hospital stay. MANSOOR DAVIS D.O. March 07, 2021 12:18 ABBE VILLARREAL MD March 07, 2021 13:19
[2021-03-07] MEDS: ANEXSIA, NORCO 7.5MG/325MG TABLET(HYDROCODONE/APAP) PO PRN (12:21)
[2021-03-07] MEDS: SODIUM CHLORIDE 0.9% INJ 10 ML SYR IV SCH ×2 (13:59→20:42)
[2021-03-07 16:00] VITALS: BP 133/64
[2021-03-07 20:00] VITALS: BP 146/66
[2021-03-07] MEDS: LEVEMIR (INSULIN DETEMIR) 1 UNITS/0.01ML SC SCH (20:39)
[2021-03-07] MEDS: DULoxetine 30 MG CAP (CYMBALTA) PO SCH (20:40)
[2021-03-07] MEDS: MONTELUKAST 10 MG TAB PO SCH (20:40)
--- NOTE | 2021-03-07 22:59 | IPN ---
NEPHROLOGY PROGRESS NOTE DATE: 03/07/2021 SUBJECTIVE: The patient was seen and examined at the bedside today morning. She continues to be on IV Lasix drip. She is diuresing well, reports leg edema is getting better. Renal function is stable and actually improving with diuresis. OBJECTIVE: VITAL SIGNS: Temperature is 96.1 degrees Fahrenheit, blood pressure 146/66, pulse is 82, respiratory rate of 18, saturating 97% on room air. INTAKE AND OUTPUT: Urine output recorded as 4.4 liters yesterday, 3.3 liters by the time I saw her in the morning. Weight in the bed scale is 114.3 kg. PHYSICAL EXAMINATION: GENERAL APPEARANCE: The patient is awake, alert, oriented x3, sitting up in the bed in no apparent distress. HEAD AND NECK: Extraocular muscles intact. Pupils are equally round and reactive to light. Mucous membranes are moist. Neck is supple. There is no jugular venous distention. CARDIOVASCULAR: S1, S2, regular rate. EXTREMITIES: 2+ edema of the right lower extremity. RESPIRATORY: Chest is clear to auscultation bilaterally. Bilaterally currently no rales or rhonchi. ABDOMEN: Soft, obese, positive bowel sounds. Abdominal wall edema is noted. Mild presacral edema is also noted. MUSCULOSKELETAL: She has a left below the knee amputation and it has some edema and right leg has 2+ edema. LOSS PREVENTION ASSOCIATE: No focal deficits. Power is 5/5 in all extremities. LAB REVIEW: CBC showed a WBC count of 4.8, hemoglobin is 12, platelet count 208. BMP showed sodium of 142, potassium 3.8, chloride 105, bicarbonate 31, BUN 37, creatinine is 1.9; it was 2.1 yesterday. Calcium 8.3, magnesium is 2. CURRENT INPATIENT MEDICATIONS: The patient's medications were all reviewed by myself. She continues to be on an IV Lasix drip. I am going to decrease the rate to 10 mL per hour now. Potassium continues to be 40 mEq p.o. twice daily. There is no other significant change in the medications today as compared with yesterday. ASSESSMENT AND PLAN: 1. Anasarca she continues to be a Lasix drip. Dose is being decreased because she has made more than 5 liters of urine now when I checked in the evening. Continue to monitor intake and output. Keep the Bishop catheter for now. 2. Acute renal failure superimposed on chronic kidney disease it is cardiorenal in nature. Creatinine is improving with diuresis. 3. Hypokalemia it is controlled with current dose of potassium chloride 40 mEq p.o. twice daily. 4. Anemia and chronic kidney disease and iron deficiency - hemoglobin level is significantly better. She got IV iron as an outpatient.
[2021-03-08] VITALS: BP 163/80
[2021-03-08 04:00] VITALS: BP 140/74
[2021-03-08] MEDS: ANEXSIA, NORCO 7.5MG/325MG TABLET(HYDROCODONE/APAP) PO PRN ×2 (04:11→18:53)
[2021-03-08 05:39] LABS: HEMATOCRIT 30.8 % (36.0-47.0); HEMOGLOBIN 10.3 g/dl (12.0-15.5); MEAN CORPUSCULAR HEMOGLOBIN 29.7 pg (27.0-33.0); MEAN CORPUSCULAR HGB CONC 33.4 g/dl (32.0-36.5); MEAN CORPUSCULAR VOLUME 88.8 fl (80.0-96.0); PLATELET COUNT, AUTOMATED 160 10^3/uL (150-450); RED BLOOD COUNT 3.47 10^6/uL (4.00-5.40); WHITE BLOOD COUNT 4.8 10^3/uL (4.0-10.0)
[2021-03-08] MEDS: SODIUM CHLORIDE 0.9% INJ 10 ML SYR IV SCH ×3 (05:41→21:06)
[2021-03-08 06:19] LABS: CALCIUM LEVEL 7.7 MG/DL (8.5-10.1); CREATININE FOR GFR 1.95 MG/DL (0.55-1.30); GLOMERULAR FILTRATION RATE 28.8 (>51); MAGNESIUM LEVEL 1.9 MG/DL (1.8-2.4)
[2021-03-08] MEDS: SYMBICORT 80/4.5MCG INHALER 6GM INH SCH ×2 (07:22→20:35)
[2021-03-08 08:00] VITALS: BP 160/84
[2021-03-08] MEDS: LACTOBACILLUS ACIDOPHILUS CAP (BACID) PO SCH ×4 (08:45→21:05)
[2021-03-08] MEDS: MAGNESIUM OXIDE 400MG TAB (MAG-OX) PO SCH (08:45)
[2021-03-08] MEDS: APIXABAN 5 MG TAB (ELIQUIS) PO SCH ×2 (08:46→21:05)
[2021-03-08] MEDS: PREGABALIN 75 MG CAP(LYRICA) PO SCH ×2 (08:46→21:05)
[2021-03-08] MEDS: POTASSIUM CHLORIDE 10 MEQ SR TABLET PO SCH ×2 (08:46→21:05)
[2021-03-08] MEDS: DIVALPROEX 500 MG TAB PO SCH ×2 (08:46→21:04)
[2021-03-08] MEDS: ASPIRIN 81MG ENTERIC TABLET PO SCH (08:46)
[2021-03-08] MEDS: FUROSEMIDE injection 250 MG in D5W 225 ML IV SCH (08:47)
[2021-03-08] MEDS: HumaLOG INSULIN (NovoLOG) PER UNIT SC SCH ×4 (08:47→21:04)
[2021-03-08] MEDS: NYSTATIN 100,000 UNITS/GM TOPICAL PWD 15 GM TOP SCH (08:48)
--- NOTE | 2021-03-08 09:36 | IPNPDOC ---
Text Note Date of Service The patient was seen on 03/08/21. 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 Patient was admitted to the hospital service for further evaluation and treatment. Nephrology was called for consultation. Patient was seen and examined at the bedside. Patient denies any nausea, vomiting, chest pain, shortness breath, palpitations, abdominal pain or diarrhea. Patient has a Bishop catheter in place. Reports that her legs have had improvement, however, are still swollen. Objective: Vitals (See below) General: Lying in bed, appears comfortable, AAOx3 HEENT: NC, AT CVS: +S1S2 Lungs: Fair air entry b/l, -w/r/r Abdomen: Soft, ND, NT Extremities: 2+ pitting edema, L BKA, - Calf tenderness Imaging: CXR 03/04: No change in the mild bilateral interstitial edema/infiltrate since prior study. Renal US 03/05: 1. Normal renal ultrasound. CXR 03/05: There is no acute cardiopulmonary disease. Recent central venous catheter placement as described above. CT Head 03/06: Minimal generalized volume loss. No acute intracranial abnormality.. Assessment and plan: MELODY on CKD3 with fluid retention - Patient reports that her lower extremity edema has been improving - Physical still reveals signs of fluid overload; however, this has been - Patient is been -13.7 L since admission - Kidney function has been improving - Imaging noted above - c/w strict ins/outs, daily weights, fluid restrictions - c/w Lasix drip as per Nephrology - Nephrology on consultation; appreciate their input s/p Altered mental status - Currently fully oriented - No focal deficits - Imaging negative - Dose of Lyrica reduced - per this is common for the patient when she is hospitalized, has always resolved spontaneously s/p Hypokalemia Poor peripheral access - Hx of poor access with multiple PICC placements and central line placements - General surgery consulted for central line placement, line could not be placed - PICC placement was attempted and could not be complete - Right subclavian central line was placed 03/05/[address] Contreras, appreciate his assistance IDDM1 - c/w ISS and Levemir Hx recent NSTEMI - Currently has no chest pain, palpitations or shortness of breath - EKG reviewed from admission - c/w ASA HTN - Blood pressures well controlled - Currently only on diuretics Diastolic CHF - Diuretics as above Factor V Leiden deficiency - c/w Eliquis Seizure disorder - c/w Divalproex Chronic Asthma - Continue with inhaled therapy as ordered RLS - c/w ropinirole Chronic pain - c/w adjusted dose of Pregabalin - c/w Duloxetine Iron deficiency anemia - No signs of bleeding - Hemoglobin has remained stable GI prophylaxis - PPI on hold DVT prophylaxis - c/w full anticoagulation with Eliquis Disposition: - Awaiting clinical improvement VSPam, I+O VSPam I+O Laboratory Tests 03/08/21 05:23 Vital Signs Date Time Temp Pulse Resp B/P (MAP) Pulse Ox O2 Delivery O2 Flow Rate FiO2 03/08/21 04:43 20 15.0 03/08/21 04:11 Room Air 03/08/21 04:00 97.4 80 140/74 (96) 96 I&O- Last 24 Hours up to 6 AM 03/08/21 05:59 Intake Total 955 ml Output Total 5775 ml Balance -4820 ml FITO CALVERT MD March 08, 2021 09:36
[2021-03-08 16:00] VITALS: BP 172/79
--- NOTE | 2021-03-08 17:01 | IPN ---
NEPHROLOGY PROGRESS NOTE DATE: 03/08/2021 SUBJECTIVE: Patient is seen and examined at the bedside today morning. She is afebrile, hemodynamically stable. She continues to be on intravenous (IV) Lasix drip. She is making a good amount of urine. She reports lower extremity edema is getting better. Renal function is stable since yesterday. OBJECTIVE: VITAL SIGNS: Temperature 97.3 degrees Fahrenheit, blood pressure 160/84, pulse 92, respiratory rate 19, saturating 95% on room air. INTAKE AND OUTPUT: Urine output recorded as 5.2 liters yesterday, 5.3 liters so far today since overnight. Weight in the bed scale is 110.7 kg, which is around 4 kg less than her weight yesterday. PHYSICAL EXAMINATION: GENERAL: Patient is awake, alert, oriented times three, sitting up in bed, no apparent distress. HEAD AND NECK EXAM: Extraocular muscles intact. Pupils equally round and reactive to light. Mucous membranes are moist. Neck is supple. CARDIOVASCULAR: S1, S2. Regular rate. 2+ edema of the bilateral lower extremities. RESPIRATORY: Chest is clear to auscultation bilaterally. ABDOMEN: Soft. Obese. Abdominal wall edema is noted. MUSCULOSKELETAL: Left [id number]-cwy-[id number] amputation was noted. She has 2+ edema, but it is significantly better than her edema about three days ago. CENTRAL NERVOUS SYSTEM (LAY OUT HELPER): No focal deficits. Power is 5/5 in all extremities. LABORATORY REVIEW: CBC showed WBC 4.8, teljqakavh29.3, platelets 160. BMP showed [id number], potassium 4, chloride 103, bicarbonate 33, BUN 39, creatinine 1.9 today, it was 1.9 yesterday as well. CURRENT INPATIENT MEDICATIONS: Patient's medications were all reviewed by myself. She continues to be on IV Lasix drip. She is also on potassium chloride 40 mEq twice a day. No other significant change in the medications. ASSESSMENT AND PLAN: 1. Anasarca. Patient is on Lasix drip. She is making a good amount of urine. She has lost almost 13 kg of weight since her admission. Continue at the current rate at this time. 2. Acute renal failure superimposed on chronic kidney disease. It was cardiorenal in nature. Creatinine is stable and is slightly improved from her admission creatinine. 3. Hypokalemia. Controlled with current dose of potassium chloride. 4. Anemia in iron deficiency. Patient got IV iron as outpatient before admission. Hemoglobin level is stable at this time. 5. Proteinuria. It is secondary to diabetic nephropathy. She is not a candidate for angiotensin converting enzyme (MAXINE) inhibitors or angiotensin receptor blockers at this time because of acute renal failure.
[2021-03-08 20:00] VITALS: BP 182/82
[2021-03-08] MEDS: LEVEMIR (INSULIN DETEMIR) 1 UNITS/0.01ML SC SCH (21:04)
[2021-03-08] MEDS: MONTELUKAST 10 MG TAB PO SCH (21:05)
[2021-03-08] MEDS: DULoxetine 30 MG CAP (CYMBALTA) PO SCH (21:05)
[2021-03-08 21:19] VITALS: BP 178/90
[2021-03-08] MEDS ORDERED: LABETALOL 100MG/20ML VIAL IV ONE (23:50)
[2021-03-09] VITALS: BP 184/86
[2021-03-09] MEDS: ANEXSIA, NORCO 7.5MG/325MG TABLET(HYDROCODONE/APAP) PO PRN (03:31)
[2021-03-09 04:00] VITALS: BP 150/68
[2021-03-09] MEDS: SODIUM CHLORIDE 0.9% INJ 10 ML SYR IV SCH ×3 (05:33→21:46)
[2021-03-09 05:53] LABS: HEMATOCRIT 29.7 % (36.0-47.0); HEMOGLOBIN 9.7 g/dl (12.0-15.5); MEAN CORPUSCULAR HGB CONC 32.7 g/dl (32.0-36.5); MEAN CORPUSCULAR VOLUME 88.9 fl (80.0-96.0); PLATELET COUNT, AUTOMATED 169 10^3/uL (150-450); RED BLOOD COUNT 3.34 10^6/uL (4.00-5.40); WHITE BLOOD COUNT 5.7 10^3/uL (4.0-10.0)
[2021-03-09 06:53] LABS: CALCIUM LEVEL 7.6 MG/DL (8.5-10.1); CREATININE FOR GFR 1.94 MG/DL (0.55-1.30); MAGNESIUM LEVEL 1.9 MG/DL (1.8-2.4)
[2021-03-09] MEDS: HumaLOG INSULIN (NovoLOG) PER UNIT SC SCH ×4 (07:06→21:49)
[2021-03-09 08:00] VITALS: BP 147/65
[2021-03-09] MEDS: ASPIRIN 81MG ENTERIC TABLET PO SCH (08:43)
[2021-03-09] MEDS: APIXABAN 5 MG TAB (ELIQUIS) PO SCH ×2 (08:44→21:43)
[2021-03-09] MEDS: LACTOBACILLUS ACIDOPHILUS CAP (BACID) PO SCH ×4 (08:44→21:42)
[2021-03-09] MEDS: POTASSIUM CHLORIDE 10 MEQ SR TABLET PO SCH ×2 (08:44→21:42)
[2021-03-09] MEDS: PREGABALIN 75 MG CAP(LYRICA) PO SCH ×2 (08:44→21:43)
[2021-03-09] MEDS: MAGNESIUM OXIDE 400MG TAB (MAG-OX) PO SCH (08:44)
[2021-03-09] MEDS: DIVALPROEX 500 MG TAB PO SCH ×2 (08:44→21:43)
[2021-03-09] MEDS: LEVEMIR (INSULIN DETEMIR) 1 UNITS/0.01ML SC SCH ×2 (08:45→21:41)
[2021-03-09] MEDS: NYSTATIN 100,000 UNITS/GM TOPICAL PWD 15 GM TOP SCH (08:45)
--- NOTE | 2021-03-09 09:09 | REP ---
INDICATION: Right hand 2nd digit tip ulceration COMPARISON: None. TECHNIQUE: AP, lateral, bilateral oblique views right hand. FINDINGS: There is a superficial laceration/ulceration along the medial aspect of the 2nd digit distal phalanx. No bony or articular involvement is appreciated. No subcutaneous emphysema or foreign body identified. Remainder of the examination including osseous structures and joint spaces demonstrate generalized age-related changes. No acute fracture or dislocation. IMPRESSION: Soft tissue irregularity suggesting ulceration/laceration overlying the distal aspect of the 2nd digit. No underlying osseous or articular involvement is appreciated. <Electronically signed by Clint Sullivan > 03/09/21 0926
--- NOTE | 2021-03-09 09:54 | IPNPDOC ---
Text Note Date of Service The patient was seen on 03/09/21. 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 Patient was admitted to the hospital service for further evaluation and treatment. Nephrology was called for consultation. Patient was seen and examined at the bedside. Patient reports that lower extremity swelling has been doing better. She denies any chest pain, shortness breath, palpitations, nausea, vomiting, abdominal pain or diarrhea. Patient's Bishop catheter in place. This morning patient showed me her right hand index finger with ulceration. No evidence of surrounding erythema. Patient denies any significant pain. Objective: Vitals (See below) General: Lying in bed, appears comfortable, AAOx3 HEENT: Normocephalic and atraumatic CVS: +S1S2 Lungs: Fair air entry b/l, auscultation is without any wheezing, rhonchi or rales Abdomen: Soft, nondistended and nontender Extremities: Left [id number]-[id number] education. 2+ pitting edema, - Calf tenderness Skin: Right hand index finger distal phalanx with an ulceration noted Imaging: CXR 03/04: No change in the mild bilateral interstitial edema/infiltrate since prior study. Renal US 03/05: 1. Normal renal ultrasound. CXR 03/05: There is no acute cardiopulmonary disease. Recent central venous catheter placement as described above. CT Head 03/06: Minimal generalized volume loss. No acute intracranial abnormality.. Assessment and plan: MELODY on CKD3 with fluid retention - Clinic patient has had improvement and has remained negative fluid balance - Improvement of lower extremity edema noted - Kidney function has been improving - Imaging noted above - c/w strict ins/outs, daily weights, fluid restrictions - c/w Lasix drip as per Nephrology - Nephrology on consultation; appreciate their input s/p Altered mental status - Currently fully oriented - No focal deficits - Imaging negative - Dose of Lyrica reduced - per this is common for the patient when she is hospitalized, has always resolved spontaneously s/p Hypokalemia Poor peripheral access - Hx of poor access with multiple PICC placements and central line placements - General surgery consulted for central line placement, line could not be placed - PICC placement was attempted and could not be complete - Right subclavian central line was placed 03/05/[address] Contreras, appreciate his assistance Right hand 2nd digit with ulceration - Patient show me her right hand first digit with an ulceration at the tip - Will get x-ray imaging of her hand - Will consult advanced wound care for further recommendations IDDM1 with hyperglycemia - c/w ISS and Levemir - Will increase dose of Levemir Hx recent NSTEMI - Currently has no chest pain, palpitations or shortness of breath - EKG reviewed from admission - c/w ASA HTN - Blood pressures well controlled - Currently only on diuretics Diastolic CHF - Diuretics as above Factor V Leiden deficiency - c/w Eliquis Seizure disorder - c/w Divalproex Chronic Asthma - No evidence of exacerbation - c/w inhaled therapy as ordered RLS - c/w ropinirole Chronic pain - c/w adjusted dose of Pregabalin - c/w Duloxetine Iron deficiency anemia - No signs of bleeding - Hemoglobin has remained stable GI prophylaxis - PPI on hold DVT prophylaxis - c/w full anticoagulation with Eliquis Disposition: - Awaiting clinical improvement - Will consult advanced wound care with Pam Pardo I+O Pam HELTON I+O Laboratory Tests 03/09/21 05:33 Vital Signs Date Time Temp Pulse Resp B/P (MAP) Pulse Ox O2 Delivery O2 Flow Rate FiO2 03/09/21 08:00 147/65 (92) Room Air 03/09/21 04:05 18 03/09/21 04:00 96.7 74 97 03/08/21 04:43 15.0 I&O- Last 24 Hours up to 6 AM 03/09/21 05:59 Intake Total 1485 ml Output Total 5250 ml Balance -3765 ml FITO CALVERT MD March 09, 2021 09:54
[2021-03-09] MEDS: FUROSEMIDE injection 250 MG in D5W 225 ML IV SCH (10:43)
[2021-03-09] MEDS: SYMBICORT 80/4.5MCG INHALER 6GM INH SCH ×2 (11:22→19:56)
[2021-03-09 12:00] VITALS: BP 130/58
[2021-03-09 16:00] VITALS: BP 141/73
--- NOTE | 2021-03-09 16:54 | IPN ---
PROGRESS NOTE DATE: 03/09/2021 SUBJECTIVE: The patient is seen and examined this morning at the bedside. She notes that her leg edema is improving, but not yet fully resolved. She denies any chest pain or shortness of breath at rest, but states she still feels dyspneic with activity. She has a Bishop catheter in place, but has been up and ambulating to the bathroom she tells me for bowel movements. OBJECTIVE: VITAL SIGNS: Temperature 96.7, pulse 74, respiratory rate 16, blood pressure 147/65, saturating 97% on room air. INTAKE AND OUTPUT: Intake yesterday was 1780, urine output was 7200, net negative 5.4 liters. Weight on the bed scale today is 111.5 kg. GENERAL: The patient is seen lying in bed awake, alert, oriented x3, comfortable, in no apparent distress. HEENT: Extraocular muscles are intact. Tongue is moist. NECK: Supple. Jugular veins are mildly elevated. HEART: Sounds are regular, S1, S2. There is ongoing 1+ edema pitting diffusely in the legs. There is still some dependent edema and edema in the flanks. LUNGS: Show symmetric air entry without rales or rhonchus. She is comfortable on room air. ABDOMEN: Soft and obese. There is some abdominal wall edema. GENITOURINARY: Shows indwelling Bishop catheter. Extremities show left qrdbs-one-rtav amputation. There is 1+ edema of the stump and there is also 1+ edema in the right leg that comes up to the hip-thigh independent area. NEUROLOGIC: She is oriented x3 and at baseline mentation. LABORATORY DATA: White count 5.7, hemoglobin 9.7, platelets 169,000. Glucose 450, magnesium 1.9, sodium 138, potassium 4.0, BUN 44, creatinine 1.9. INPATIENT MEDICATIONS: She continues on Lasix drip at 10 mg/hr. Her insulin was adjusted by the primary team. The remainder of her medications are unchanged as compared to yesterday. PROBLEMS: 1. Decompensated diastolic congestive heart failure. Echocardiogram from 12/2020 is reviewed with grade 1 diastolic dysfunction. The patient is in ranjan fluid overload. She is being diuresed with Lasix drip at 10 mg/hr. She is diuresing satisfactory. Her daily weights are down trending. She has a net negative fluid balance. Her renal function is stable. Continue current diuretic. 2. Acute kidney injury (MELODY) superimposed on chronic kidney disease (CKD) stage IIIB in the setting of cardiorenal syndrome and decompensated diastolic congestive heart failure. Her renal function is fairly stable with diuresis and creatinine has improved from 2.5 on admission to 1.9 today. Continue Lasix drip. 3. Hypokalemia. She continues on potassium supplementation to offset loop diuretic-related losses. 4. Anemia with iron deficiency. She recently received IV iron. Her hemoglobin is suboptimal, but stable at 9.7. She continues on Eliquis for history of Factor V Leiden deficiency. There is no sign of bleeding. 5. Hypertension. Blood pressures are well-controlled with amlodipine plus diuretic. 6. Hypomagnesemia. She continues on magnesium supplementation. 7. Insulin-dependent diabetes mellitus with hyperglycemia. Her long acting insulin was adjusted by the primary team. She is poorly controlled with her last A1c being 9.9 in December.
--- NOTE | 2021-03-09 16:57 | REP ---
INDICATION: RUE ultrasound / ulceration at R hand 2nd digit. COMPARISON: None. TECHNIQUE: Right upper extremity arterial Doppler ultrasound. FINDINGS: Normal triphasic arterial Doppler waveforms are noted throughout the upper extremity arterial tree. No high-grade stenosis or occlusion seen. Diameter and velocity chart right upper extremity arteries: Right subclavian artery 4.7 mm, 80.4 centimeters/second Right axillary artery 4.1 mm, 122 cm/S Brachial artery proximal 5.1 mm, 111 cm/S Mid brachial artery 4.3 mm, 120 cm/S Distal brachial 4.7 mm, 166 cm/S Proximal radial artery 3.1 mm, 95 cm/S Mid radial artery 3.3 mm, 90 cm/S Distal radial artery 2.8 mm, 104 cm/S Proximal ulnar artery 3.7 mm, 83 cm/S Mid ulnar artery 2.1 mm, 69 cm/S Distal ulnar artery 2.5 mm, 83 cm/S IMPRESSION: No high-grade stenosis or occlusion. <Electronically signed by Loi Ruiz > 03/09/21 [id number]
--- NOTE | 2021-03-09 18:07 | CR ---
ADVANCED WOUND CARE TELEMEDICINE CONSULTATION DATE: 03/09/2021 CONSULTATION REQUESTED BY: Abbe Villarreal M.D. REASON FOR CONSULTATION: Wound involving the patient's right index finger. Wound care telemedicine provides a visual assessment without the benefit of physical examination. It can assist with establishing a diagnosis and etiology. This allows for an initial treatment plan. As wounds often change, it may be necessary to modify the original care. Our recommendation is periodic wound reassessment to monitor treatment. Failure to comply may result in nonhealing of the wound, possible complications, and/or a poor outcome. The recommendations given will serve as treatment options. As I will not be following this patient, this care plan will require the attending physician to give and sign the orders. Upon discharge, outpatient follow-up can be arranged at our wound care center. HISTORY OF PRESENT ILLNESS: Verbal consent obtained and patient identified. This 50-year-old female diabetic poorly controlled in the past was admitted for fluid overload and is undergoing dialysis. She was admitted six days ago. The patient indicated prior to admission, she noted discoloration involving the distal aspect of her right index finger. She denied any trauma and has no idea how this occurred. She indicated that it is slightly uncomfortable, but not painful. The patient also has a satellite lesion on the dorsal aspect of her right index finger at the mid interphalangeal joint. On inspection, there is a 1.5 cm x 1.2 cm dry eschar involving the distal aspect of the patient's right index finger on the lateral aspect. There was no drainage and there was a dry eschar present. Periwound shows no erythema, maceration, or ischemic change. There is no ecchymosis involving the finger and the skin between the primary distal lesion in the satellite lesion appears normal The patient has full range of motion of the digit and indicates that it is uncomfortable, but not painful. On the dorsal aspect of the right index finger at the mid interphalangeal joint, there is a 0.5 cm x 0.5 cm similar satellite lesion. 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 The viral infection is self-limiting and usually heals spontaneously in two to three weeks. Debridement is not indicated as this can exacerbate the wound by spreading the virus. Oral not topical acyclovir should be considered as the treatment. Prior to treatment, a viral swab should be obtained. A bacterial infection would show a purulent drainage with significant erythema and significant pain, which is not the case. Therefore, oral antibiotics are not indicated. Dressings should include a DuoDERM dressing placed over the wound, molded, to the finger and allowed to soften secondary to body temperature and then covered with a foam dressing. This should be changed on an every other day basis. Any health care worker or nurse involved in the patient's care should have gloves and there should be a precautionary measure in terms of communicable potential viral infection. MTDD
[2021-03-09 20:00] VITALS: BP 133/71
[2021-03-09] MEDS: DULoxetine 30 MG CAP (CYMBALTA) PO SCH (21:42)
[2021-03-09] MEDS: MONTELUKAST 10 MG TAB PO SCH (21:43)
[2021-03-09] MEDS: valACYclovir HCL 500 MG TAB PO SCH (21:49)
[2021-03-10] VITALS: BP 156/62
[2021-03-10] MEDS: SODIUM CHLORIDE 0.9% INJ 10 ML SYR IV SCH ×3 (04:18→21:04)
[2021-03-10] MEDS: ANEXSIA, NORCO 7.5MG/325MG TABLET(HYDROCODONE/APAP) PO PRN ×3 (04:18→21:01)
[2021-03-10 06:12] LABS: HEMATOCRIT 32.5 % (36.0-47.0); HEMOGLOBIN 10.8 g/dl (12.0-15.5); MEAN CORPUSCULAR HEMOGLOBIN 29.7 pg (27.0-33.0); MEAN CORPUSCULAR HGB CONC 33.2 g/dl (32.0-36.5); MEAN CORPUSCULAR VOLUME 89.3 fl (80.0-96.0); PLATELET COUNT, AUTOMATED 206 10^3/uL (150-450); RED BLOOD COUNT 3.64 10^6/uL (4.00-5.40); WHITE BLOOD COUNT 5.3 10^3/uL (4.0-10.0)
[2021-03-10 06:33] LABS: CALCIUM LEVEL 8.2 MG/DL (8.5-10.1); CREATININE FOR GFR 2.19 MG/DL (0.55-1.30); GLOMERULAR FILTRATION RATE 25.2 (>51); POTASSIUM SERUM 4.7 MEQ/L (3.5-5.1)
[2021-03-10] MEDS: LEVEMIR (INSULIN DETEMIR) 1 UNITS/0.01ML SC SCH ×2 (08:12→21:00)
[2021-03-10] MEDS: HumaLOG INSULIN (NovoLOG) PER UNIT SC SCH ×4 (08:12→21:00)
[2021-03-10] MEDS: POTASSIUM CHLORIDE 10 MEQ SR TABLET PO SCH (08:13)
[2021-03-10] MEDS: DIVALPROEX 500 MG TAB PO SCH ×2 (08:13→21:00)
[2021-03-10] MEDS: MAGNESIUM OXIDE 400MG TAB (MAG-OX) PO SCH (08:13)
[2021-03-10] MEDS: APIXABAN 5 MG TAB (ELIQUIS) PO SCH ×2 (08:13→21:00)
[2021-03-10] MEDS: PREGABALIN 75 MG CAP(LYRICA) PO SCH ×2 (08:13→21:01)
[2021-03-10] MEDS: valACYclovir HCL 500 MG TAB PO SCH ×2 (08:13→21:01)
[2021-03-10] MEDS: ASPIRIN 81MG ENTERIC TABLET PO SCH (08:14)
[2021-03-10] MEDS: LACTOBACILLUS ACIDOPHILUS CAP (BACID) PO SCH ×4 (08:14→21:01)
[2021-03-10] MEDS: SYMBICORT 80/4.5MCG INHALER 6GM INH SCH ×2 (08:17→20:00)
[2021-03-10] MEDS: NYSTATIN 100,000 UNITS/GM TOPICAL PWD 15 GM TOP SCH (09:18)
--- NOTE | 2021-03-10 09:19 | IPN ---
PROGRESS NOTE DATE: 03/10/2021 SUBJECTIVE: The patient denies any chest pain, pressure, tightness, shortness of breath, dizziness, PND, orthopnea, or nocturia. The patient says she gets fatigued when she walks, but unable to put her left lower extremity prosthesis on due to persistent swelling in the left BKA stump. Afebrile. No chills and no cough overnight. Telemetry sinus rhythm with no acute issues. No other problems overnight. The patient says her dry weight is still 120 pounds. OBJECTIVE: VITAL SIGNS: Temperature 96.8, pulse 75 regular rhythm sinus, respiratory rate 16, blood pressure 156/62, 96% on room air. INTAKE AND OUTPUT: Input 360, output 1675, negative 1315 yesterday. Weight 111.5 kg previously and 111.2 kg today. INTAKE AND OUTPUT: From midnight 1.7 liters out, negative 1.6 liters. Currently on Lasix IV drip. GENERAL: Awake, alert, and oriented to person, place, and time. Answering questions appropriate. In no respiratory distress. NECK: No JVD. No thyromegaly. LUNGS: Clear to auscultation. No wheezing, rales, or rhonchi. HEART: S1, S2. Sinus rhythm. ABDOMEN: Obese, soft, nontender, and nondistended. Positive bowel sounds x4 quadrants. No hepatosplenomegaly. No CVA tenderness. EXTREMITIES: Left BKA with 2+ pitting edema with eschar noted on the right second digit with some erythema and swelling and no tenderness. DIAGNOSTIC STUDIES: Laboratory data, imaging studies, and microbiology have all been reviewed. ASSESSMENT AND PLAN: This is a 50-year-old female admitted on 03/04/2021, with a past medical history significant for chronic kidney disease stage III with baseline creatinine of 1.2, diabetes, hypertension, congestive heart failure with preserved systolic ejection fraction, recent non-ST elevation myocardial infarction (PR), morbid obesity with worsening renal dysfunction and fluid overload despite Bumex 4 mg b.i.d. and Spironolactone with a 20 pound weight gain in the past one month. The patient has the following acute issues: 1. Congestive heart failure with diastolic dysfunction with preserved systolic function currently being diuresed by nephrology with Lasix drip, fluid restriction, strict I and O (intake and output), and daily weights. Her dry weight is 220 pounds. Currently doing well with no shortness of breath. 2. Acute on chronic renal failure managed by nephrology and diuresing well. Likely due to decompensated congestive heart failure (CHF). 3. Right second digit herpetic jaskaran managed by Dr. Reis customer specialist. No oral antibiotics recommended. No debridement required per Dr. Reis, self-limiting. Valtrex 500 b.i.d. and monitor renal function. 4. Poor peripheral intravenous (IV) access with right subclavian placed by Dr. Contreras 03/05/2021. 5. Diabetes uncontrolled. Glucose 369 to 382 with lowest of 208. Increase Levemir insulin to 22 units subcutaneously b.i.d. 6. Chronic back pain on chronic Lyrica. 7. Recent non-ST elevation myocardial infarction (PR) currently on aspirin. 8. Disposition: Medically stable for med surg floor. Continue with Lasix drip. MTDD
[2021-03-10] MEDS: FUROSEMIDE injection 250 MG in D5W 225 ML IV SCH (11:34)
[2021-03-10 11:59] VITALS: BP 106/56
[2021-03-10 14:50] VITALS: BP 103/66
[2021-03-10 21:00] VITALS: BP 104/58
[2021-03-10] MEDS: MONTELUKAST 10 MG TAB PO SCH (21:01)
[2021-03-10] MEDS: DULoxetine 30 MG CAP (CYMBALTA) PO SCH (21:02)
[2021-03-10] MEDS ORDERED: metOLazone 5 MG TAB PO ONE (21:15)
[2021-03-10] MEDS ORDERED: guaiFENesin 200 MG TAB PO PRN (21:35)
[2021-03-10 22:00] VITALS: BP 104/58
[2021-03-11] VITALS (9 sets, daily range): BP systolic 102–133; BP diastolic 52–96
--- NOTE | 2021-03-11 01:10 | CR ---
CONSULTATION DATE: 03/09/2021 REASON FOR CONSULTATION: Asked to consult by Dr. Villarreal for evaluation of right index ulceration with a question of herpetic jaskaran. HISTORY OF PRESENT ILLNESS: Rebeca is a 50-year-old female with a history of congestive heart failure and fluid retention. She was admitted on 03/04 with increasing shortness of breath and 2 to 3 weeks of decreased urine output. The patient was having some pelvic discomfort, but no dysuria or hematuria. She had increasing shortness of breath and had chest pressure. The patient has been diuresed and doing better. On the day of admission, she noted she had some pain in her index finger that developed into ulceration. She states that before admission about a week she had burnt her hand in the oven but that affected her PIP joint and is healing, but the ulcer on the tip of the finger was not from a burn. She denied any fevers or chills. She complains of severe pain in the area. She has a history of genital herpes that usually occurs in the right flank area probably every 3 to 4 months. 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 She has not been on Valtrex for a while. PAST MEDICAL HISTORY: Significant for diabetes with neuropathy, gastroparesis, retinopathy and neuropathy, stage III chronic kidney disease, migraines, chronic hypertension, heart failure with preserved ejection fraction, asthma, bipolar disorder, Factor V Leiden deficiency, lumbar spinal stenosis, fibromyalgia, spina bifida and temporal lobe seizure, hiatal hernia with gastroesophageal reflux disease, history of left Wynn's palsy, history of Clostridium difficile colitis. PAST SURGICAL HISTORY: Cholecystectomy, hysterectomy with prolapse, cervical diskectomy infusion, right breast lumpectomy, appendectomy, left Charcot foot arthropathy, left below-knee amputation (BKA) for chronic osteomyelitis, well healed, cataract surgery. SOCIAL HISTORY: She is a smoker, one pack a day. She is . She lives with her . No alcohol use or drug use. FAMILY HISTORY: Significant for coronary artery disease, cerebrovascular accident (CVA), hypertension. REVIEW OF SYSTEMS: She denied any fevers or chills, nigh sweats, fatigue. She has shortness of breath and edema. She has a history of chronic constipation and vomiting from gastroparesis. She has not walked in over a year and a half due to severe back pain and spinal stenosis. PHYSICAL EXAMINATION: On physical examination, she is a pleasant female in no acute distress. Temperature is 97.3, pulse 81, respirations 18, blood pressure 130/51, O2 saturation 95% on room air. Heart: Normal S1, S2. No murmurs, rubs or gallops. Lungs: Diminished breath sounds at the bases, but no wheezes, rales or rhonchi. Abdomen: Morbidly obese. Bowel sounds tender. Extremities: Left below-knee amputation (BKA) with healed stump, no lesions. Right lower extremity trace edema. Right index finger with tender ulcer with a black eschar with surrounding erythema and also proximal of the distal phalanx. There is another lesion, which is circular just distal to the eschar, but is also scabbed over and then a healed scar that she relates to a burn on the knuckle at the PIP joint. The erythema mostly involves the distal phalanx of the right index finger. Skin: Flank area has a few scars that are residual from the previous episodes of herpetic outbreak, but no active infection at this time. Radial pulse +2 bilaterally. IMPRESSION: This is a 50-year-old female with morbid obesity and insulin dependent diabetes, congestive heart failure admitted for fluid retention. The patient has bilateral neuropathy of hands and feet. She also had carpal tunnel surgery on both hands and has decreased sensation. She relates a history of burn to that hand, but not at the site of this eschar. Differential diagnosis includes bacterial infection, viral HSV infection, such as herpetic jaskaran, less likely fungal infection. She denies any gardening or trauma. It is not typical for herpetic outbreak. She only has one large eschar and one smaller lesion, but it is a possibility. Also, she could have had a burn that she does not recall that is the etiology of this eschar. PLAN: Would suggest starting her on Valtrex 500 mg by mouth twice a day at renal dose for a glomerular filtration rate (GFR) of 30. HSV PCR and HSV serology has been obtained that will come back in probably 3 to 5 days. If negative, would discontinue Valtrex. Bacterial fungal cultures have been also sent. The other concern would be ischemic, but she has good vascular radial pulse so this is less likely.
[2021-03-11] MEDS: SODIUM CHLORIDE 0.9% INJ 10 ML SYR IV SCH ×3 (05:47→20:49)
[2021-03-11 06:32] LABS: HEMOGLOBIN 10.3 g/dl (12.0-15.5); MEAN CORPUSCULAR HEMOGLOBIN 29.3 pg (27.0-33.0); MEAN CORPUSCULAR HGB CONC 32.2 g/dl (32.0-36.5); MEAN CORPUSCULAR VOLUME 91.2 fl (80.0-96.0); PLATELET COUNT, AUTOMATED 175 10^3/uL (150-450); RED BLOOD COUNT 3.51 10^6/uL (4.00-5.40); WHITE BLOOD COUNT 6.3 10^3/uL (4.0-10.0)
[2021-03-11 06:57] LABS: CALCIUM LEVEL 8.7 MG/DL (8.5-10.1); CREATININE FOR GFR 3.04 MG/DL (0.55-1.30); GLOMERULAR FILTRATION RATE 17.2 (>51); MAGNESIUM LEVEL 2.2 MG/DL (1.8-2.4); POTASSIUM SERUM 5.4 MEQ/L (3.5-5.1)
[2021-03-11] MEDS: SYMBICORT 80/4.5MCG INHALER 6GM INH SCH ×2 (07:21→19:50)
[2021-03-11] MEDS: ASPIRIN 81MG ENTERIC TABLET PO SCH (08:36)
[2021-03-11] MEDS: NYSTATIN 100,000 UNITS/GM TOPICAL PWD 15 GM TOP SCH (08:36)
[2021-03-11] MEDS: LEVEMIR (INSULIN DETEMIR) 1 UNITS/0.01ML SC SCH ×2 (08:37→20:15)
[2021-03-11] MEDS: DIVALPROEX 500 MG TAB PO SCH ×2 (08:37→20:12)
[2021-03-11] MEDS: APIXABAN 5 MG TAB (ELIQUIS) PO SCH ×2 (08:37→20:15)
[2021-03-11] MEDS: valACYclovir HCL 500 MG TAB PO SCH ×2 (08:37→20:14)
[2021-03-11] MEDS: PREGABALIN 75 MG CAP(LYRICA) PO SCH ×2 (08:37→20:14)
[2021-03-11] MEDS: LACTOBACILLUS ACIDOPHILUS CAP (BACID) PO SCH ×4 (08:37→20:46)
[2021-03-11] MEDS: HumaLOG INSULIN (NovoLOG) PER UNIT SC SCH ×4 (08:38→20:10)
[2021-03-11] MEDS: MAGNESIUM OXIDE 400MG TAB (MAG-OX) PO SCH (08:38)
--- NOTE | 2021-03-11 08:49 | REP ---
INDICATION: sob COMPARISON: 03/05/2021 TECHNIQUE: Portable AP view of the chest FINDINGS: Central line with tip in the SVC remains stable. Mediastinum and cardiac silhouette are stable. Lung juarez demonstrate chronic appearing interstitial changes similar to prior examination. However, underlying element of pulmonary vascular congestion/interstitial edema as well as possible subtle left basilar atelectasis cannot be excluded. No further discrete consolidation. No effusion or pneumothorax. Skeletal structures intact. IMPRESSION: Limited by portable technique which accentuates the pulmonary vasculature and interstitium. Cannot exclude mild interstitial edema or subtle left basilar atelectasis. <Electronically signed by Clint Sullivan > 03/11/21 [id number]
[2021-03-11] MEDS: CHLOROTHIAZIDE 500 MG VIAL (J1205 PER 1) IV SCH ×2 (10:17→20:47)
--- NOTE | 2021-03-11 11:21 | IPN ---
PROGRESS NOTE DATE: 03/11/2021 SUBJECTIVE: The patient says she could not sleep last night because she was short of breath. She is diuresed well 1.8 liters overnight, negative 820, current weight is 113.9 kg with previous weight of 111.2 kg. No chest pain, pressure, or tightness. Continues to have lower extremity edema even along the left BKA stump. No chest pain, pressure, tightness, or dizziness. OBJECTIVE: VITAL SIGNS: Temperature 96.6, pulse 87, respiratory rate 15, blood pressure 119/85, 93% on 4 liters nasal cannula. GENERAL: Awake, alert, and oriented to person, place, and time. Answering questions appropriately. No conversational dyspnea or use of respiratory accessory muscles. LUNGS: Clear to auscultation. No wheezing or rales. HEART: S1, S2. Sinus rhythm. ABDOMEN: Obese, soft, nontender, and nondistended with positive bowel sounds. No hepatosplenomegaly. EXTREMITIES: Left BKA. 2+ pitting edema on the right. Eschar noted on the right index finger at the mid interphalangeal joint. A 1.5 x 1.2 eschar noted on the distal aspect on the distal aspect of the right index finger on the lateral aspect. DIAGNOSTIC STUDIES: Microbiology and imaging studies have been reviewed. Serology for HSV is still pending. Wound culture shows Staphylococcus aureus sensitive to doxycycline. ASSESSMENT AND PLAN: A 50-year-old female admitted on 03/04 with history of chronic kidney disease (CKD) stage III with baseline creatinine 1.2, diabetes, hypertension, diastolic congestive heart failure with preserved systolic function, recent non-ST elevation myocardial infarction (IA), morbid obesity with worsening renal dysfunction and fluid overload despite Bumex 4 mg b.i.d. and Spironolactone with a 20 pound weight gain in the past month. Currently the patient has the following issues: 1. Decompensated acute on chronic diastolic congestive heart failure exacerbation. 2. Acute on chronic renal failure. 3. Right second digit herpetic jaskaran with secondary bacterial infection with Staphylococcus aureus sensitive to doxycycline currently on Valtrex and started on doxycycline. 4. Peripheral intravenous (IV) access status post right subclavian catheter placement by Dr. Contreras. 5. Uncontrolled type 2 diabetes. 6. Chronic back pain. 7. Recent non-ST elevation myocardial infarction/CAD. PLAN: The patient is currently on Lasix drip. Management per nephrology. Strict I and O (intake and output) daily, weights, and fluid restriction. The patient's dry weight is 220 pounds. She complained of shortness of breath overnight, but will defer diuresis to nephrology. Monitoring the patient's renal function. The patient is on Valtrex with herpetic jaskaran on the right second digit. Will discontinue if herpes serologies are negative. At this time Staphylococcus aureus noted on the wound culture. Will give doxycycline. Infectious disease (ID) consulted. Increase Levemir insulin for better glycemic control. The patient's fingersticks are 123 to 137, stable.
[2021-03-11] MEDS: FUROSEMIDE injection 250 MG in D5W 225 ML IV SCH (12:42)
--- NOTE | 2021-03-11 15:25 | IPNPDOC ---
Date Seen The patient was seen on 03/11/21. Progress Note ADDENDUM TO PROGRESS NOTE: OVERNIGHT EVENTS: INTENTIONAL RECREATIONAL DRUG ABUSE: -According to overnight RN, "Pt pulled help anthony blas bathroom, door was locked, and pt responded 'just a min'. Pt opened the bathroom door, and pt was found on the bathroom floor with syringe hooked to the triple lumen catheter. PT took the syringe off the TLC and put it in her bagand purse was taken from the patient. . . Pt's belongings had home hydrocodone 10-325, a syringe, beating machine operator, a vape, specimen cup, small pill box. Gait belt was placed on the patient and she picked up from the floor. . . Pt admitted to crushing hydrocodone and injecting into her TLC. A syringe full of blood was drawn back from the TLC port where the patient injected medicaitons. : PLAN: Patient's primary care physician to be involved in overall recreational drug abuse rehabilitation. All opioid medications to be tapered off and discontinued patient to be referred to pain management for nonopioid medications VS, I&O, 24H, [facility] Vital Signs/I&O Vital Signs Date Time Temp Pulse Resp B/P (MAP) Pulse Ox O2 Delivery O2 Flow Rate FiO2 03/11/21 09:00 4.0 03/11/21 06:00 96.6 87 15 119/85 (96) 93 Nasal Cannula 03/11/21 00:13 32 I&O- Last 24 Hours up to 6 AM 03/11/21 06:00 Intake Total 1050 ml Output Total 150 ml Balance 900 ml Laboratory Data 24H LABS Laboratory Tests 2 03/10/21 16:30: Bedside Glucose (Misc Panel) 130H 03/10/21 20:29: Bedside Glucose (Misc Panel) 123H 03/11/21 05:26: Anion Gap 8, Glomerular Filtration Rate 17.2L, Calcium Level 8.7, Magnesium Level 2.2, MT-Zpi-P-Type Natriuretic Peptide 6770H 03/11/21 05:29: Nucleated Red Blood Cells % (auto) 0.0 03/11/21 11:42: Bedside Glucose (Misc Panel) 176H CBC/BMP Laboratory Tests 03/11/21 05:26 03/11/21 05:29 Microbiology Microbiology 03/09/21 Gram Stain - Final, Complete 03/09/21 Wound Culture - Final, Complete Staphylococcus Aureus 03/04/21 Respiratory Virus Panel (PCR) (JAMES) - Final, Complete TAWANDA CHEW MD March 11, 2021 15:25
[2021-03-11] MEDS: MONTELUKAST 10 MG TAB PO SCH (20:14)
[2021-03-11] MEDS: DULoxetine 30 MG CAP (CYMBALTA) PO SCH (20:14)
[2021-03-11] MEDS ORDERED: PATIROMER SORBITEX CALCIUM 8.4 GM POWDER PACKET (VELTASSA) PO ONE (21:10)
[2021-03-12] MEDS: ANEXSIA, NORCO 7.5MG/325MG TABLET(HYDROCODONE/APAP) PO PRN (04:14)
[2021-03-12] MEDS: SODIUM CHLORIDE 0.9% INJ 10 ML SYR IV SCH ×3 (05:13→21:54)
[2021-03-12 06:00] VITALS: BP 117/68
[2021-03-12] MEDS: HumaLOG INSULIN (NovoLOG) PER UNIT SC SCH ×4 (07:30→21:54)
[2021-03-12] MEDS: SYMBICORT 80/4.5MCG INHALER 6GM INH SCH ×2 (07:38→19:46)
[2021-03-12] MEDS: ASPIRIN 81MG ENTERIC TABLET PO SCH ×2 (08:46→09:00)
[2021-03-12] MEDS: APIXABAN 5 MG TAB (ELIQUIS) PO SCH ×3 (08:46→21:47)
[2021-03-12] MEDS: valACYclovir HCL 500 MG TAB PO SCH ×3 (08:46→21:50)
[2021-03-12] MEDS: DIVALPROEX 500 MG TAB PO SCH ×3 (08:46→21:48)
[2021-03-12] MEDS: MAGNESIUM OXIDE 400MG TAB (MAG-OX) PO SCH ×2 (08:47→09:00)
[2021-03-12] MEDS: LACTOBACILLUS ACIDOPHILUS CAP (BACID) PO SCH ×5 (08:47→21:47)
[2021-03-12] MEDS: PREGABALIN 75 MG CAP(LYRICA) PO SCH ×3 (08:47→21:48)
[2021-03-12] MEDS: LEVEMIR (INSULIN DETEMIR) 1 UNITS/0.01ML SC SCH ×2 (08:55→21:53)
[2021-03-12] MEDS: NYSTATIN 100,000 UNITS/GM TOPICAL PWD 15 GM TOP SCH ×2 (08:55→09:00)
[2021-03-12] MEDS ORDERED: POTASSIUM CHLORIDE 10 MEQ SR TABLET PO SCH (09:00)
[2021-03-12] MEDS: FUROSEMIDE injection 250 MG in D5W 225 ML IV SCH (13:42)
[2021-03-12 13:48] LABS: HEMATOCRIT 28.1 % (36.0-47.0); HEMOGLOBIN 9.2 g/dl (12.0-15.5); MEAN CORPUSCULAR HEMOGLOBIN 29.2 pg (27.0-33.0); MEAN CORPUSCULAR HGB CONC 32.7 g/dl (32.0-36.5); MEAN CORPUSCULAR VOLUME 89.2 fl (80.0-96.0); PLATELET COUNT, AUTOMATED 189 10^3/uL (150-450); RED BLOOD COUNT 3.15 10^6/uL (4.00-5.40); WHITE BLOOD COUNT 6.9 10^3/uL (4.0-10.0)
[2021-03-12 14:00] VITALS: BP 179/84
[2021-03-12 14:18] LABS: CALCIUM LEVEL 8.8 MG/DL (8.5-10.1); CREATININE FOR GFR 2.92 MG/DL (0.55-1.30); GLOMERULAR FILTRATION RATE 18.1 (>51); MAGNESIUM LEVEL 2.4 MG/DL (1.8-2.4); POTASSIUM SERUM 4.9 MEQ/L (3.5-5.1)
[2021-03-12] MEDS ORDERED: CHLOROTHIAZIDE 500 MG VIAL (J1205 PER 1) IV ONE (16:10)
--- NOTE | 2021-03-12 16:44 | IPN ---
PROGRESS NOTE DATE: 03/12/2021 SUBJECTIVE: Patient continues to complain of dyspnea on exertion, unchanged from yesterday, still requiring 4 liters nasal cannula. Denies any chest pain, pressure, tightness, nausea, vomiting, epigastric pain, dizziness or lightheadedness. Patient continues to have edema bilateral lower extremities with left lower extremity stump still edematous. PHYSICAL EXAMINATION: VITAL SIGNS: Temperature 97.8, pulse 80, respiratory rate 17, blood pressure 117/68, 98% on 4 liters nasal cannula. GENERAL: Patient is awake, alert, oriented to person, place and time, answering questions appropriately. No use of respiratory accessory muscles. Able to complete her sentences. HEENT: Mild jugular venous distention (JVD). No cervical lymphadenopathy. Moist mucous membranes. LUNGS: Diminished throughout. No wheezing or rales. HEART: S1, S2. Sinus rhythm. ABDOMEN: Obese. Soft, nontender, nondistended. EXTREMITIES: Left ycjpa-bsm-skyx stump 1+ edema bilaterally. LABORATORY DATA: Complete blood count (CBC), metabolic panel, microbiology, imaging studies have been reviewed. 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, gastroparesis, retinopathy, neuropathy, migraines, chronic hypertension, heart failure with preserved systolic function, diastolic dysfunction, asthma, bipolar disorder, Factor V Leiden mutation with history of deep venous thromboses (DVTs) in upper and lower extremities, L2-L5 spinal stenosis, hypogammaglobulinemia, fibromyalgia, spina bifida, right temporomandibular joint (TMJ) dysfunction, psoriasis, restless leg syndrome, temporal lobe seizures, hiatal hernia with reflux, fatty liver, Clostridium (C) difficile with stool transplant, left bbdnf-cef-itaj amputation due to chronic wounds and osteomyelitis, right foot amputation with Charcot foot and class III obesity admitted on March 04, 2021 due to fluid retention, found to have decompensated diastolic congestive heart failure exacerbation with worsening renal dysfunction. Patient had poor intravenous (IV) access and a right internal jugular triple lumen catheter was placed. Nephrology was consulted for help in management of her fluid overload and decompensated heart failure. She was given Diuril, IV albumin infusion due to low albumin levels, had a right index finger ulceration, on Valtrex for possible herpetic jaskaran. Blood cultures grew out Staphylococcus aureus infection. During the hospitalization, patient was found to have brought 140 tablets of hydrocodone from home and injected herself with crushed hydrocodone illicitly while in the bathroom, found on the floor with a syringe attached to her triple lumen catheter, collapsed, but without any head trauma or loss of consciousness. IMPRESSION: 1. Prescription drug abuse. Patient was found in the bathroom after crushing her hydrocodone she had from home with a syringe attached to her triple lumen catheter. 2. Right index finger herpetic jaskaran/Staphylococcus aureus on the wound culture. 3. Poor venous access, status post right subclavian catheter placement by Dr. Contreras. 4. Decompensated acute on chronic diastolic congestive heart failure exacerbation with preserved ejection fraction. 5. Acute on chronic renal failure stage IV. 6. Uncontrolled type 2 diabetes. 7. Chronic back pain. 8. Recent non-ST elevation myocardial infarction. 9. Hyperkalemia. 10. Obesity, body mass index (BMI) of 35.7. PLAN: Patient's renal function is worsening, with persistent fluid overload. Per Dr. Lindsey, patient does not appear to be responding to Diuril or Lasix drip and will most likely continue to worsen over the next few days. We will need to continually monitor her on this floor. No emergent need for dialysis at this time, but may be likely in the near future. For the herpehernan jessica, she is currently on Valtrex 500 mg twice a day. She is resumed on all other home medications. The patient had illicitly used hydrocodone from her home and injected it into her subclavian central line catheter. This had been discussed with the patient that this could have been life-threatening. Her primary care physician, Dr. Quijano, has been made aware, as well as Dr. Godwin. As outpatient, patient will need rehabilitation and other means of pain control aside from narcotics.
[2021-03-12] MEDS: MONTELUKAST 10 MG TAB PO SCH (21:47)
[2021-03-12] MEDS: DULoxetine 30 MG CAP (CYMBALTA) PO SCH (21:48)
[2021-03-12 22:00] VITALS: BP 173/83
[2021-03-13] MEDS: SODIUM CHLORIDE 0.9% INJ 10 ML SYR IV SCH ×3 (05:32→21:20)
[2021-03-13 06:00] VITALS: BP 172/76
[2021-03-13 06:25] LABS: BASO % 0.5 % (0.0-1.0); EOS # 0.3 10^3/uL (0.0-0.5); EOS % 4.4 % (0.0-3.0); HEMATOCRIT 28.8 % (36.0-47.0); HEMOGLOBIN 9.5 g/dl (12.0-15.5); LYMPH # 1.4 10^3/uL (1.5-5.0); LYMPH % 18.7 % (24.0-44.0); MEAN CORPUSCULAR VOLUME 87.8 fl (80.0-96.0); MONO # 0.7 10^3/uL (0.0-0.8); MONO % 9.5 % (2.0-8.0); NEUTROPHILS # 4.8 10^3/uL (1.5-8.5); NEUTROPHILS % 63.7 % (36.0-66.0); PLATELET COUNT, AUTOMATED 203 10^3/uL (150-450); RED BLOOD COUNT 3.28 10^6/uL (4.00-5.40); WHITE BLOOD COUNT 7.5 10^3/uL (4.0-10.0)
[2021-03-13 06:47] LABS: CALCIUM LEVEL 8.3 MG/DL (8.5-10.1); CREATININE FOR GFR 2.59 MG/DL (0.55-1.30); GLOMERULAR FILTRATION RATE 20.8 (>51); POTASSIUM SERUM 4.4 MEQ/L (3.5-5.1)
[2021-03-13] MEDS: SYMBICORT 80/4.5MCG INHALER 6GM INH SCH ×2 (07:36→19:45)
[2021-03-13] MEDS ORDERED: BUMETANIDE 1 MG TAB PO SCH (09:00)
[2021-03-13] MEDS: DIVALPROEX 500 MG TAB PO SCH ×2 (09:35→21:19)
[2021-03-13] MEDS: LEVEMIR (INSULIN DETEMIR) 1 UNITS/0.01ML SC SCH ×2 (09:35→21:20)
[2021-03-13] MEDS: HumaLOG INSULIN (NovoLOG) PER UNIT SC SCH ×4 (09:35→21:00)
[2021-03-13] MEDS: valACYclovir HCL 500 MG TAB PO SCH (09:36)
[2021-03-13] MEDS: LACTOBACILLUS ACIDOPHILUS CAP (BACID) PO SCH ×4 (09:36→21:18)
[2021-03-13] MEDS: NYSTATIN 100,000 UNITS/GM TOPICAL PWD 15 GM TOP SCH (09:36)
[2021-03-13] MEDS: ASPIRIN 81MG ENTERIC TABLET PO SCH (09:36)
[2021-03-13] MEDS: PREGABALIN 75 MG CAP(LYRICA) PO SCH ×2 (09:36→21:19)
[2021-03-13] MEDS: APIXABAN 5 MG TAB (ELIQUIS) PO SCH ×2 (09:36→21:19)
[2021-03-13] MEDS ORDERED: VALA500T5 PO (11:21)
[2021-03-13] MEDS ORDERED: BUME1TAB3 PO (11:22)
[2021-03-13] MEDS ORDERED: TRES1INJ2 SC (11:24)
[2021-03-13] MEDS ORDERED: metOLazone 2.5 MG TAB PO ONE (11:30)
--- NOTE | 2021-03-13 13:24 | IPN ---
PROGRESS NOTE DATE: 03/13/2021 SUBJECTIVE: Patient denies any worsening shortness of breath, chest pain, pressure, tightness, lightheadedness. She continues to complain of persistent lower extremity edema. No other issues per nursing. Patient has not attempted to tamper with her right subclavian triple lumen catheter since she was found to have injected hydrocodone which she crushed in the bathroom, with a syringe placed by the patient straight into her triple lumen catheter three days ago. PHYSICAL EXAMINATION: Temperature 98.3, pulse 83, respiratory rate 18, blood pressure 172/76, 93% on room air. GENERAL: Patient is awake, alert, oriented to person, place and time, answering questions appropriately, no distress. HEENT: No jugular venous distention (JVD) or thyromegaly. Moist mucous membranes. No use of respiratory accessory muscles. Anicteric. No pallor. LUNGS: Diminished but no wheezing or rales noted. HEART: S1, S2. Sinus rhythm. ABDOMEN: Obese, soft, nontender, nondistended. Positive bowel sounds all four quadrants. EXTREMITIES: Left ptslo-zux-tydy stump still with 1+ edema bilateral lower extremities. LABORATORY DATA: Laboratory data, microbiology and imaging studies have all been reviewed. Intake overnight was 910. Output was 6.9 liters. Negative 5990. Current weight is 112.8 kilograms from admission weight of 124 kilograms. ASSESSMENT: This is a 50-year-old female with history of chronic kidney disease stage III, diastolic congestive heart failure, FULL CODE, diabetes with neuropathy, gastroparesis, retinopathy, neuropathy, migraines, hypertension, asthma, bipolar disorder, Factor V Leiden mutation with deep venous thrombosis (DVT) bilateral upper and lower extremities, L2-L5 spinal stenosis, hypogammaglobulinemia, fibromyalgia, spina bifida, right temporomandibular joint dysfunction, psoriasis, restless legs, temporal lobe seizures, hiatal hernia with reflux, fatty liver, Clostridium (C) difficile with stool transplant, left sfeus-vdb-zgqe amputation due to chronic wounds and osteomyelitis with right foot amputation, Charcot foot, class 3 obesity, admitted March 04, 2021 due to fluid retention, found to be in decompensated congestive heart failure with worsening renal function. CURRENT ISSUES: 1. Prescription drug abuse. Patient was found in the bathroom after crushing hydrocodone that she brought from home with a syringe attached to her triple lumen catheter in the right subclavian three nights ago. Patient's primary care physician, as well as her pain management physician have been made aware of the patient's prescription drug abuse. Dr. Godwin will not be prescribing her pain medications. She still has 140 tablets of hydrocodone in her possession. 2. Diastolic congestive heart failure. Acute decompensation with exacerbation. Patient is doing well on Lasix drip with creatinine improving. 3. Acute on chronic renal failure stage III. Currently at baseline creatinine, managed by nephrology for diuresis and fluid management. 4. Right index finger herpetic jaskaran with Staphylococcus aureus in the wound culture. Currently on Valtrex being renally dosed by pharmacy. 5. Poor intravenous (IV) access. Dr. Jayden Contreras, thoracic surgery, place a right subclavian, now with a triple lumen catheter. Patient was instructed not to tamper with this director medical and to refrain from injecting unauthorized medications that she brought from home directly into her blood stream. 6. Type 2 diabetes. On insulin sliding scale, consistent carbohydrate diet. Fingersticks with coverage. 7. Chronic back pain. Patient has prescription drug abuse and was injecting hydrocodone which she crushed in the bathroom directly into her triple lumen catheter in the right subclavian. This has been reported to her primary care physician as well as Dr. Godwin, who is her pain specialist. Patient is to have rehabilitation and to have pain control with other means. 8. Recent non-ST elevation myocardial infarction. Resumed on all her home medications. LAURIE
[2021-03-13 14:00] VITALS: BP 168/86
--- NOTE | 2021-03-13 16:07 | IPN ---
PROGRESS NOTE DATE: 03/13/2021 SUBJECTIVE: Rebeca is seen and examined this morning at the bedside. Every day she tells me that she is still swollen and that her prosthesis does not fit, but today is the first day when she reports that her leg edema has resolved. She is wearing her prosthesis on her left stump and it fits nicely. She is seen on room air saturating well. She made almost 7 liters of urine yesterday and today has already made 5 liters of urine as well. Her follow-up has improved over the past 48 hours. OBJECTIVE: VITAL SIGNS: Temperature 98.3, pulse 83, respiratory rate 18, blood pressure 172/76, saturating 93% on room air. INTAKE AND OUTPUT: Intake yesterday was only recorded as 1 liter. Urine output was recorded as 6.9 liters. Net negative 6 liters. Weight on the bed scale today is 112.8 kg. Urine output today is already 5 liters. GENERAL: The patient is seen sitting in bed wearing her prosthesis on the left leg for the first time. HEENT: Extraocular muscles are intact. Tongue is moist. Neck is supple. There is a central line in the right chest wall. HEART: Sounds are regular. S1, S2. There is no more peripheral edema. LUNGS: Clear to auscultation without crackles or rales. ABDOMEN: Soft and nontender. There is no abdominal wall edema. EXTREMITIES: Negative for edema. There is a left gqppp-glf-rkyl amputation. She is wearing her prosthesis. NEUROLOGIC: She is oriented x3 at baseline mentation. LABORATORY DATA: Sodium 139, potassium 4.4, bicarbonate 33, BUN 61, creatinine 2.5. Hemoglobin 9.5, platelets 203,000. Stool occult blood came back negative. INPATIENT MEDICATIONS: I stopped her Lasix drip. I switched her to bumetanide 3 mg p.o. b.i.d. She also got a dose of metolazone 2.5 mg p.o. x1 today. The remainder of her medications are unchanged as compared to yesterday. PROBLEMS: 1. Acute kidney injury (MELODY) superimposed on chronic kidney disease (CKD) stage IIIB in the setting of cardiorenal syndrome and decompensated diastolic congestive heart failure. Her peak creatinine was 3.0. Her renal function has now improved back down to creatinine 2.5 today. Her renal function is still not at baseline, but I am stopping her IV Lasix at this point and putting her on an oral diuretic regimen. 2. Diastolic congestive heart failure status post recent exacerbation. The patient was aggressively diuresed on this admission initially with a Lasix drip at 10 mg/hour. Now she is off of supplemental oxygen. Her peripheral edema has resolved. Her leg prosthesis is finally fitting her again. I am putting her on an oral diuretic regimen. She is back on Bumex, which is what she was previously taking at home and I did give a small dose metolazone today as well. I am going to hold off on giving any potassium-sparring diuretic because she was recently mildly hyperkalemic. 3. Anemia of chronic kidney disease. Hemoglobin is stable at 9.5. The patient recently got IV iron as an outpatient. There is no need for erythropoietin stimulating agent at present. I did check a fecal occult blood test (FOBT) as she is on chronic Eliquis anticoagulation and it returned back negative. 4. Hypertension. Blood pressures are elevated this morning, but they were well-controlled the past several days. I am just going to observe for now. She is getting oral diuretics today. She continues on bumetanide and Spironolactone at home. She is resumed on bumetanide right now, but I am holding the Spironolactone because she was very recently hyperkalemic. 5. Disposition: I am happy to see her renal function is improving and she is diuresing well. She is off of supplemental oxygen. I am hopeful that she may be able to be discharged on Tuesday, but we will give her another day to see how she does.
--- NOTE | 2021-03-13 16:39 | IPN ---
PROGRESS NOTE DATE: 03/13/2021 Rebeca seems to be doing fairly well. She states her finger is not that painful. She has dry eschar at the tip of the right index finger, measuring about 2 x 1 cm. No fever or chills. LABORATORY DATA: White count 7.5, hemoglobin 9.5, hematocrit 28.8, platelets 203, 64% neutrophils, 18% lymphocytes, 10% monocytes. Sodium 139, potassium 4.4, chloride 100, bicarbonate 33, BUN 61, creatinine 2.59, glucose 189, calcium 8.3. Wound culture was positive for methicillin-sensitive Staphylococcus aureus (MSSA). HSV PCR is still pending. HSV IgG serology is still pending. IMPRESSION: 1-Right index eschar with surrounding erythema with culture positive for MSSA. The original etiology of this eschar could have been a burn. Very unlikely this was herpetic. It is a very large eschar, such as herpetic jaskaran even though the patient has had a history of HSV-2 (herpes simplex virus). She received 3 days of Valtrex, which will be discontinued, as it is very dry at this point. Could have been a burn as well. Patient states that she had a burn to this hand. 2. Congestive heart failure with renal insufficiency. Patient improving. 3. Prescription drug abuse. Patient has been found in the bathroom crushing hydrocodone and injecting through her central line. PLAN: Discontinue Valtrex. She has received a total of 3 days of treatment. Doxycycline 100 mg by mouth twice a day for MSSA. Superimposed infection of the finger. Patient is allergic to penicillin. Will treat for a total of 7 days. MTDD
[2021-03-13] MEDS: DOXYCYCLINE HYCLATE 100MG TABLET PO SCH (21:19)
[2021-03-13] MEDS: DULoxetine 30 MG CAP (CYMBALTA) PO SCH (21:19)
[2021-03-13] MEDS: MONTELUKAST 10 MG TAB PO SCH (21:19)
[2021-03-13 22:00] VITALS: BP 166/87
[2021-03-14] MEDS: SODIUM CHLORIDE 0.9% INJ 10 ML SYR IV SCH (04:55)
[2021-03-14 05:13] LABS: BASO % 0.4 % (0.0-1.0); EOS # 0.3 10^3/uL (0.0-0.5); EOS % 4.1 % (0.0-3.0); HEMATOCRIT 30.4 % (36.0-47.0); LYMPH # 1.5 10^3/uL (1.5-5.0); LYMPH % 21.3 % (24.0-44.0); MEAN CORPUSCULAR HEMOGLOBIN 29.1 pg (27.0-33.0); MEAN CORPUSCULAR HGB CONC 32.9 g/dl (32.0-36.5); MEAN CORPUSCULAR VOLUME 88.4 fl (80.0-96.0); MONO # 0.6 10^3/uL (0.0-0.8); MONO % 8.8 % (2.0-8.0); NEUTROPHILS # 4.4 10^3/uL (1.5-8.5); NEUTROPHILS % 62.1 % (36.0-66.0); PLATELET COUNT, AUTOMATED 257 10^3/uL (150-450); RED BLOOD COUNT 3.44 10^6/uL (4.00-5.40)
[2021-03-14 05:46] LABS: CALCIUM LEVEL 8.6 MG/DL (8.5-10.1); CREATININE FOR GFR 1.98 MG/DL (0.55-1.30); GLOMERULAR FILTRATION RATE 28.3 (>51); POTASSIUM SERUM 3.8 MEQ/L (3.5-5.1)
[2021-03-14 06:00] VITALS: BP 169/88
[2021-03-14] MEDS: SYMBICORT 80/4.5MCG INHALER 6GM INH SCH (07:47)
[2021-03-14] MEDS: LACTOBACILLUS ACIDOPHILUS CAP (BACID) PO SCH (09:04)
[2021-03-14] MEDS: DIVALPROEX 500 MG TAB PO SCH (09:04)
[2021-03-14] MEDS: PREGABALIN 75 MG CAP(LYRICA) PO SCH (09:05)
[2021-03-14] MEDS: DOXYCYCLINE HYCLATE 100MG TABLET PO SCH (09:05)
[2021-03-14] MEDS: APIXABAN 5 MG TAB (ELIQUIS) PO SCH (09:05)
[2021-03-14] MEDS: ASPIRIN 81MG ENTERIC TABLET PO SCH (09:05)
[2021-03-14] MEDS: HumaLOG INSULIN (NovoLOG) PER UNIT SC SCH (09:06)
[2021-03-14] MEDS: LEVEMIR (INSULIN DETEMIR) 1 UNITS/0.01ML SC SCH (09:06)
[2021-03-14] MEDS: NYSTATIN 100,000 UNITS/GM TOPICAL PWD 15 GM TOP SCH (09:06)
[2021-03-14] MEDS: ANEXSIA, NORCO 7.5MG/325MG TABLET(HYDROCODONE/APAP) PO PRN (09:13)
[2021-03-14] MEDS ORDERED: DOXY-350 PO (10:21)
--- NOTE | 2021-03-14 11:30 | DSES ---
DISCHARGE SUMMARY DATE OF ADMISSION: 03/04/2021 DATE OF DISCHARGE: 03/14/2021 PRIMARY DISCHARGE DIAGNOSES: 1. Prescription drug abuse. Patient was found to be tampering with her triple lumen catheter in the right subclavian vein, injecting hydrocodone she brought from home and injecting it into the triple lumen catheter and was found down in the hospital bathroom. 2. Diastolic congestive heart failure exacerbation. 3. Hlgra-zm-gfuqdfd renal failure, stage 3. 4. Right index finger herpetic jaskaran with Staph aureus found in a wound culture. 5. Poor IV access requiring right subclavian triple lumen catheter placed by thoracic surgeon, Dr. Jayden Contreras. 6. Type 2 diabetes. 7. Uncontrolled hypertension. 8. Recent non-ST elevation myocardial infarction. 9. Chronic left mppuj-rqi-jfoc amputation. 10. Anemia of chronic disease. DISCHARGE MEDICATIONS: 1. Bumex 3 mg b.i.d. 2. Tresiba 22 units subcu b.i.d. 3. Valacyclovir 500 b.i.d. 4. Albuterol 2.5 q.4 as needed for shortness of breath. 5. Allopurinol 300 q.h.s. 6. Eliquis 5 b.i.d. 7. Aspirin 162 daily. 8. Symbicort two puffs b.i.d. 9. Restasis one drop, OU b.i.d. as needed. 10. Depakote 500 b.i.d. 11. Duloxetine 120 q.h.s. 12. Vitamin D 50,000 units weekly. 13. Epi-Pen as needed. 14. Lactobacillus one cap q.h.s. 15. Latanoprost one drop, OU q.h.s. 16. Xopenex nebulizer q.6. 17. Magnesium chloride 64 q.h.s. 18. Montelukast 10 q.h.s. 19. Nystatin topically daily. 20. Prilosec 40 daily. 21. Potassium 20 mEq b.i.d. 22. Ropinirole 8 as needed. 23. Spironolactone 50 daily has been discontinued. 24. Doxycycline 100 b.i.d. until March 20. DISCHARGE INSTRUCTIONS: The patient was witnessed to have prescription drug abuse and intentionally brought hydrocodone 140 tablets into the hospital without disclosing to healthcare providers. She went into the bathroom, crushed her hydrocodone and used a syringe from home, injected it into her right subclavian triple lumen catheter illicitly and was found down in the bathroom. The patient is to have no opioids in the future. Dr. Godwin and Dr. Quijano have been made aware of the new documented prescription drug abuse behavior in the hospital. She is to see Dr. Godwin for a non-opioid treatment for her chronic pain. She is to follow up with Dr. Quijano within a week of discharge, Dr. Lindsey regarding her CHF and chronic kidney disease management within one week of discharge, 1.8 liter of fluid restriction, daily weights, call Dr. Lindsey if more than 2 lb weight gain. The patient is to be referred to a prescription drug abuse rehabilitation program as outpatient as soon as possible. She continues to have 140 tablets of hydrocodone in her possession. HOSPITAL COURSE: This is a 50-year-old female admitted on 03/04/2021 with worsening lower extremity edema, weight gain, abdominal distention, 20 lb gained over the past month with worsening shortness of breath, admitted to the hospitalist service for decompensated congestive heart failure. The patient has poor IV access with history of multiple PICC line placements and central lines in the past. General surgery was consulted, Dr. Sifuentes on 03/[address] a peripheral line in the right IJ but failed. Dr. Jayden Contreras was consulted and was able to place a right subclavian triple lumen catheter. The patient was seen by nephrology for diastolic congestive heart failure exacerbation and was placed on IV Lasix drip since there was no response to boluses. Her admission weight was 123 kilos and discharge weight of 100.9 kilograms. She had episodes of shortness of breath and remained with stage 2-3 renal failure. Her electrolytes were monitored and supplemented as needed. On 03/11/2021, the patient was found by nursing in the bathroom injecting herself with hydrocodone which she brought from home and crushed from a syringe, a needle that she found "on the floor somewhere." The patient was distressed. Hospitalist in the evening attended to her without intervention. She came through without much intervention. Her 140 tablets of hydrocodone were locked up after that incident in the hospital safe but had to be returned to her at discharge since this was her personal property. She refused to see a psychiatrist for her behavior. Her primary care physician was alerted with documentation sent by fax to Dr. Quiajno. I have personally called Dr. Godwin to let him know she had tampered with her right subclavian triple lumen catheter and intentionally injected and abused prescription medications that Dr. Godwin has prescribed as outpatient, illicitly using it in the hospital without telling the medical providers that she had brought this from home. The patient's heart failure had resolved and she is now euvolemic. Discharge instructions have been given regarding weight, monitoring as well as encouragement to seek prescription drug abuse rehabilitation as outpatient. PHYSICAL EXAMINATION ON DISCHARGE: Vital signs: Temperature 98.1, pulse 87, respiratory rate 17, blood pressure 169/88, 96% on two liters nasal cannula. Lungs: Clear to auscultation, no wheezing, rales or rhonchi. Heart: S1, S2, sinus rhythm. Abdomen: Obese, nontender, nondistended. Positive bowel sounds. Extremities: Left BKA, trace to 1+ lower extremity edema. Time spent on discharge: 30 minutes. MTDD
[2021-03-17 09:06] LABS: HSV TYPE I IgG SPECIFIC <0.91 index (0.00-0.90); HSV-1 DNA Negative (Negative); HSV-2 DNA Negative (Negative)
== END 2021-03-14 11:17 | disposition home or self-care (01) | DRG 291 ==
LOC: M PCU 15:56 → M MSPAV 03-10 14:48
PROVIDERS: ADMIT Internal Medicine; ATTEND General Practice
PROC: 02HV33Z Insertion of Infusion Device into Superior Vena Cava, Percutaneous Approach (ICD-10-PCS; principal; 2021-03-05 14:28)
DX: I13.0 Hypertensive heart and chronic kidney disease with heart failure and stage 1 through stage 4 chronic kidney disease, or unspecified chronic kidney disease (principal); I50.33 Acute on chronic diastolic (congestive) heart failure; N17.9 Acute kidney failure, unspecified; D68.2 Hereditary deficiency of other clotting factors; D80.1 Nonfamilial hypogammaglobulinemia; E87.70 Fluid overload, unspecified; N18.30 Chronic kidney disease, stage 3 unspecified; E87.5 Hyperkalemia; E11.22 Type 2 diabetes mellitus with diabetic chronic kidney disease; G40.909 Epilepsy, unspecified, not intractable, without status epilepticus; J45.909 Unspecified asthma, uncomplicated; K21.9 Gastro-esophageal reflux disease without esophagitis; G89.29 Other chronic pain; D50.9 Iron deficiency anemia, unspecified; E11.43 Type 2 diabetes mellitus with diabetic autonomic (poly)neuropathy; K31.84 Gastroparesis; E11.319 Type 2 diabetes mellitus with unspecified diabetic retinopathy without macular edema; E11.42 Type 2 diabetes mellitus with diabetic polyneuropathy; G43.909 Migraine, unspecified, not intractable, without status migrainosus; F31.9 Bipolar disorder, unspecified; M79.7 Fibromyalgia; K44.9 Diaphragmatic hernia without obstruction or gangrene; L40.9 Psoriasis, unspecified; E66.9 Obesity, unspecified; F11.10 Opioid abuse, uncomplicated; R33.9 Retention of urine, unspecified; D63.1 Anemia in chronic kidney disease; R41.82 Altered mental status, unspecified; I25.2 Old myocardial infarction; E11.65 Type 2 diabetes mellitus with hyperglycemia; L03.011 Cellulitis of right finger; F17.200 Nicotine dependence, unspecified, uncomplicated; B95.61 Methicillin susceptible Staphylococcus aureus infection as the cause of diseases classified elsewhere; Z79.01 Long term (current) use of anticoagulants; Z79.82 Long term (current) use of aspirin; Z79.899 Other long term (current) drug therapy; Z98.42 Cataract extraction status, left eye; Z98.41 Cataract extraction status, right eye; Z90.49 Acquired absence of other specified parts of digestive tract; Z79.4 Long term (current) use of insulin; Z88.0 Allergy status to penicillin; Z53.09 Procedure and treatment not carried out because of other contraindication; Z88.1 Allergy status to other antibiotic agents; Z88.2 Allergy status to sulfonamides; Z88.8 Allergy status to other drugs, medicaments and biological substances; Z91.018 Allergy to other foods; Z91.040 Latex allergy status; Z89.512 Acquired absence of left leg below knee; Z89.431 Acquired absence of right foot; Z91.048 Other nonmedicinal substance allergy status

== ENCOUNTER → 2021-03-30 | Outpatient (REF) | payer OTHER ==
[~2021-03-30] MED LIST changes: +BUME1TAB3 PO; +BUME2TAB3 PO; +LEVA1.2519 NEB; +OMEP-221 PO; +POTA10TA17 PO; +SPIR50TA4 PO; +TRES100I SC; +VALA500T5 PO; +ZYLO300T6 PO
== END ==
LOC: M LAB REF 16:46
PROVIDERS: ATTEND Internal Medicine Nephrology
DX: D50.9 Iron deficiency anemia, unspecified (principal); N18.32 Chronic kidney disease, stage 3b; E10.22 Type 1 diabetes mellitus with diabetic chronic kidney disease

== ENCOUNTER 2021-05-11 12:38 | Outpatient (CLI) | payer OTHER ==
[~2021-05-11] VITALS: Ht 177.8 cm; Wt 108.1 kg
[~2021-05-11 12:38] MED LIST changes: +ACETAMINOPHEN TAB 650MG DOSE (2X325MG) PO ONE; +ALBUTEROL SULFATE 2.5 MG/0.5 ML INH NEB SOLN INH PRN; -DICL5SOL TOP; +DICL5SOL3 TOP; +EPINEPHrine INJ 1 MG/ML 1ML AMP IM PRN; +ERGO500029 PO; +IRON SUCROSE 200 MG in NS 100 ML OVER 1 HR IV ONE; +IRON SUCROSE 25 MG in NS 23.75 ML IV ONE; +NS 1,000 ML IV SCH; +OMEP40CA4 PO; -OMEP40CA97 PO; -VITA50005 PO; +diphenhydrAMINE 50MG/ML VIAL (J1200) IV ONE; +diphenhydrAMINE 50MG/ML VIAL (J1200) IV PRN; +methylPREDNISolone 125MG 2ML VIAL IV PRN
[2021-05-11 12:45] VITALS: BP 158/86
[2021-05-11 14:24] VITALS: BP 156/72
[2021-05-11 15:30] VITALS: BP 168/88
== END 2021-05-11 15:30 | disposition home or self-care (01) ==
LOC: M INFU 12:38
PROVIDERS: ATTEND Internal Medicine Nephrology
DX: D50.9 Iron deficiency anemia, unspecified (principal); Z88.1 Allergy status to other antibiotic agents; Z88.2 Allergy status to sulfonamides; Z88.0 Allergy status to penicillin; Z88.8 Allergy status to other drugs, medicaments and biological substances; Z91.040 Latex allergy status
CPT/HCPCS: 96365; 96375; J1200; J1756

== ENCOUNTER 2021-05-18 12:44 | Outpatient (CLI) | payer OTHER ==
[~2021-05-18] VITALS: Ht 177.8 cm; Wt 108.0 kg
[~2021-05-18 12:44] MED LIST changes: -ACETAMINOPHEN TAB 650MG DOSE (2X325MG) PO ONE; +ACETAMINOPHEN TAB 650MG DOSE (2X325MG) PO SCH; -ALBUTEROL SULFATE 2.5 MG/0.5 ML INH NEB SOLN INH PRN; +BENA-8 PO; -BENA20TA8 PO; -BENA40TA5 PO; +BENA40TA84 PO; -EPINEPHrine INJ 1 MG/ML 1ML AMP IM PRN; -FLUC200T2 PO; +FLUC200T4 PO; -IRON SUCROSE 25 MG in NS 23.75 ML IV ONE; -KLOR10TA76 PO; -KLOR20TA42 PO; -LEVO500T3 PO; +LEVO500T4 PO; -MAGN400T3 PO; +MAGN400T33 PO; +METH-1177 PO; -MONT10TA10 PO; +MONT10TA97 PO; -NS 1,000 ML IV SCH; -OMEP-221 PO; +OMEP40CA5 PO; +POTA-136 PO; +POTA-141 PO; -TERB250T12 PO; +TERB250T91 PO; -diphenhydrAMINE 50MG/ML VIAL (J1200) IV PRN; -methylPREDNISolone 125MG 2ML VIAL IV PRN
[2021-05-18 12:50] VITALS: BP 160/90
[2021-05-18 14:50] VITALS: BP 148/88
[2021-09-16] MEDS ORDERED: ONDA-84 PO (18:52)
== END 2021-05-18 13:30 | disposition home or self-care (01) ==
LOC: M INFU 12:44
PROVIDERS: ATTEND Internal Medicine Nephrology
DX: D50.9 Iron deficiency anemia, unspecified (principal); Z88.0 Allergy status to penicillin; Z88.1 Allergy status to other antibiotic agents; Z88.2 Allergy status to sulfonamides; Z88.8 Allergy status to other drugs, medicaments and biological substances; Z91.040 Latex allergy status
CPT/HCPCS: 96365; J1200; J1756

== ENCOUNTER 2021-05-25 12:39 | Outpatient (CLI) | payer OTHER ==
[~2021-05-25] VITALS: Ht 177.8 cm; Wt 108.1 kg
[~2021-05-25 12:39] MED LIST changes: +ACETAMINOPHEN 650MG PO PRIOR TO INFUSION PO ONE; -ACETAMINOPHEN TAB 650MG DOSE (2X325MG) PO SCH; +ALBUTEROL SULFATE 2.5 MG/0.5 ML INH NEB SOLN INH PRN; -BENA-8 PO; +BENA20TA8 PO; +BENA40TA5 PO; -BENA40TA84 PO; +EPINEPHrine INJ 1 MG/ML 1ML AMP IM PRN; +FLUC200T2 PO; -FLUC200T4 PO; +KLOR10TA76 PO; +KLOR20TA42 PO; +LEVO500T3 PO; -LEVO500T4 PO; +MAGN400T3 PO; -MAGN400T33 PO; +MONT10TA10 PO; -MONT10TA97 PO; +NS 1,000 ML IV SCH; +OMEP-221 PO; -OMEP40CA5 PO; -POTA-136 PO; -POTA-141 PO; +TERB250T12 PO; -TERB250T91 PO; +diphenhydrAMINE 25MG IV PRIOR TO INFUSION IV ONE; -diphenhydrAMINE 50MG/ML VIAL (J1200) IV ONE; +diphenhydrAMINE 50MG/ML VIAL (J1200) IV PRN; +methylPREDNISolone 125MG 2ML VIAL IV PRN
[2021-05-25 12:40] VITALS: BP 180/102
[2021-05-25 14:30] VITALS: BP 178/90
[2021-05-25 14:45] VITALS: BP 160/88
== END 2021-05-25 14:45 | disposition home or self-care (01) ==
LOC: M INFU 12:39
PROVIDERS: ATTEND Internal Medicine Nephrology
DX: D50.9 Iron deficiency anemia, unspecified (principal); Z88.0 Allergy status to penicillin; Z88.1 Allergy status to other antibiotic agents; Z88.2 Allergy status to sulfonamides; Z88.8 Allergy status to other drugs, medicaments and biological substances; Z91.040 Latex allergy status
CPT/HCPCS: 96365; 96375; J1200; J1756

== ENCOUNTER → 2021-05-28 | Outpatient (CLI) | payer OTHER ==
[~2021-05-28] MED LIST changes: -ACETAMINOPHEN 650MG PO PRIOR TO INFUSION PO ONE; -ALBUTEROL SULFATE 2.5 MG/0.5 ML INH NEB SOLN INH PRN; -EPINEPHrine INJ 1 MG/ML 1ML AMP IM PRN; -IRON SUCROSE 200 MG in NS 100 ML OVER 1 HR IV ONE; -NS 1,000 ML IV SCH; -diphenhydrAMINE 25MG IV PRIOR TO INFUSION IV ONE; -diphenhydrAMINE 50MG/ML VIAL (J1200) IV PRN; -methylPREDNISolone 125MG 2ML VIAL IV PRN
[2021-05-28 15:43] LABS: HEMOGLOBIN A1c 12.5 %
== END ==
LOC: M PLALAB 12:27
PROVIDERS: ATTEND Family Medicine
DX: E11.59 Type 2 diabetes mellitus with other circulatory complications (principal)

== ENCOUNTER → 2021-05-28 | Outpatient (CLI) | payer OTHER ==
--- NOTE | 2021-05-28 13:21 | REP ---
INDICATION: CYST OF LEFT BREAST/R MASS/PAIN PALP LYMPH NODE; N63.10 R BREAST MASS. Right breast palpable mass at 10 o'clock previously BI-RADS 3. Left breast lesion at 4 o'clock. Patient gives history of recent weight gain and weight loss possibly related to kidney disease. COMPARISON: Mammography is reviewed from June 03, 2020, June 08, 2019, and January 24, 2019. TECHNIQUE: Skin markers are affixed to the skin at the site of each of the patient's bilateral palpable masses, 3 on the right and 1 on the left. Routine views of each breast are complimented by magnified focal spot-compression CC, MLO, and mL projection images. 3D tomography is deployed. Targeted bilateral breast sonography is carried out. FINDINGS: Scattered fibroglandular elements are seen bilaterally. No suspicious or dominant density is seen. No microcalcification or architectural distortion is seen. No worrisome skin change is appreciated. 3-D tomosynthesis shows no additional finding. There is no evidence of visible mass lesion at the site of any of the skin markers in the right breast or left breast mammographically. There is bilateral vascular calcification. Minimal diffuse dermal thickening is seen in the breast bilaterally which may be related the patient's renal failure and fluid status. There is a needle biopsy marker clips visible in the inferior and medial quadrant on the left unchanged. The Volpara volumetric breast density pattern is B. Targeted bilateral breast sonography the right breast is scanned at the site of the 3 palpable lumps at 9 o'clock, 11 o'clock, and 12 o'clock. An right breast cyst parenchyma is normal sonographically. No cyst, mass, dermal thickening, or acoustic shadowing is seen. The left breast is scanned at 3 o'clock. Mildly heterogeneous fibroglandular background echotexture is seen. No suspicious left breast abnormality is seen.. IMPRESSION: BIRADS/ACR category 2 benign bilateral mammographic and sonographic findings.. This patient's Tyrer-Cuzick lifetime breast cancer risk assessment score is 12.6%. This mammogram was interpreted with the aid of an FDA-approved computer-aided detection system. The patient states she had a clinical breast exam in May of 2021. The patient letter being requested is M2. RECOMMENDATION: Repeat screening mammography recommended 1 year (for women over 40). <Electronically signed by Loi Ruiz > 05/28/21 [id number]
== END ==
LOC: M WHC 09:22
PROVIDERS: ATTEND Surgery
DX: N60.82 Other benign mammary dysplasias of left breast (principal); N64.4 Mastodynia; R59.9 Enlarged lymph nodes, unspecified
CPT/HCPCS: 76642; 77066; G0279

== ENCOUNTER → 2021-05-28 | Outpatient (CLI) | payer OTHER ==
--- NOTE | 2021-05-28 14:57 | REP ---
INDICATION: M25.50 pOLYARTHRALGIA. COMPARISON: 05/28/2020 TECHNIQUE: Four views FINDINGS: There is no change from the prior exam. There has been previous amputation of the distal 5th metatarsal. Advanced chronic changes are seen throughout the midfoot region. Once again, there is a non united medial malleolar fracture. This is seen in limited fashion on this foot exam. There is advanced compression deformity and or displacement of the navicular status quo. The subtalar joints are seen in limited fashion on this foot exam, however, they appear markedly asymmetrically narrowed particularly the anterior and posterior subtalar joints. There is a large retrocalcaneal heel spur status quo. IMPRESSION: Advanced chronic appearing changes as described above. Consider further evaluation with CT. <Electronically signed by Figueroa Corcoran > 05/28/21 [id number]
--- NOTE | 2021-05-28 14:59 | REP ---
INDICATION: M25.50 pOLYARTHRALGIA. COMPARISON: None. TECHNIQUE: Four views each hand FINDINGS: There is an old fracture deformity involving the head, mid phalanx right 5th finger. There is no evidence of recent or acute fracture of either hand. The bones are osteoporotic. The soft tissues are unremarkable. The joints are well maintained. No erosions. IMPRESSION: No acute process. <Electronically signed by Ankit Ross > 05/28/21 [id number]
[2021-05-28 15:17] LABS: BASO % 0.4 % (0.0-1.0); EOS # 0.2 10^3/uL (0.0-0.5); EOS % 2.1 % (0.0-3.0); HEMATOCRIT 31.6 % (36.0-47.0); HEMOGLOBIN 11.2 g/dl (12.0-15.5); LYMPH # 1.5 10^3/uL (1.5-5.0); LYMPH % 18.2 % (24.0-44.0); MEAN CORPUSCULAR HEMOGLOBIN 30.3 pg (27.0-33.0); MEAN CORPUSCULAR HGB CONC 35.4 g/dl (32.0-36.5); MEAN CORPUSCULAR VOLUME 85.4 fl (80.0-96.0); MONO # 0.4 10^3/uL (0.0-0.8); MONO % 5.4 % (2.0-8.0); NEUTROPHILS # 5.9 10^3/uL (1.5-8.5); NEUTROPHILS % 72.9 % (36.0-66.0); PLATELET COUNT, AUTOMATED 195 10^3/uL (150-450)
[2021-05-28 15:54] LABS: ALBUMIN 1.7 GM/DL (3.2-5.2); BILIRUBIN,TOTAL 0.4 MG/DL (0.2-1.0); C REACTIVE PROTEIN QUANTITATIV 0.37 MG/DL (0.00-0.30); CALCIUM LEVEL 7.9 MG/DL (8.5-10.1); CREATININE FOR GFR 2.72 MG/DL (0.55-1.30); GLOMERULAR FILTRATION RATE 19.6 (>51); POTASSIUM SERUM 3.8 MEQ/L (3.5-5.1)
[2021-05-28 16:01] LABS: ERYTHROCYTE SEDIMENTATION RATE 126 mm/hr (0-30)
== END ==
LOC: M PLALAB 12:25
PROVIDERS: ATTEND Internal Medicine Rheumatology
DX: M25.50 Pain in unspecified joint (principal); R70.0 Elevated erythrocyte sedimentation rate; R51.9 Headache, unspecified; M77.31 Calcaneal spur, right foot; S82.51XK Displaced fracture of medial malleolus of right tibia, subsequent encounter for closed fracture with nonunion; X58.XXXD Exposure to other specified factors, subsequent encounter; Y92.9 Unspecified place or not applicable; Y93.9 Activity, unspecified; Y99.8 Other external cause status

== ENCOUNTER 2021-06-01 12:19 | Outpatient (CLI) | payer OTHER ==
[~2021-06-01] VITALS: Ht 177.8 cm; Wt 107.9 kg
[~2021-06-01 12:19] MED LIST changes: +ALBUTEROL SULFATE 2.5 MG/0.5 ML INH NEB SOLN INH PRN; +EPINEPHrine INJ 1 MG/ML 1ML AMP IM PRN; +diphenhydrAMINE 50MG/ML VIAL (J1200) IV PRN; +methylPREDNISolone 125MG 2ML VIAL IV PRN
[2021-06-01] MEDS ORDERED: IRON SUCROSE 200 MG in NS 100 ML OVER 1 HR IV ONE (12:30)
[2021-06-01] MEDS ORDERED: diphenhydrAMINE 50MG/ML VIAL (J1200) IV ONE (12:30)
[2021-06-01] MEDS ORDERED: diphenhydrAMINE 25MG CAP PO ONE (12:30)
[2021-06-01] MEDS ORDERED: ACETAMINOPHEN TAB 650MG DOSE (2X325MG) PO ONE (12:30)
[2021-06-01 12:40] VITALS: BP 175/85
[2021-06-01 14:30] VITALS: BP 149/78
== END 2021-06-01 14:30 | disposition home or self-care (01) ==
LOC: M INFU 12:19
PROVIDERS: ATTEND Internal Medicine Nephrology
DX: D50.9 Iron deficiency anemia, unspecified (principal); Z88.0 Allergy status to penicillin; Z88.1 Allergy status to other antibiotic agents; Z88.2 Allergy status to sulfonamides; Z88.8 Allergy status to other drugs, medicaments and biological substances; Z91.040 Latex allergy status
CPT/HCPCS: 96365; 96375; J1200; J1756

== ENCOUNTER → 2021-06-04 | Outpatient (REF) | payer OTHER ==
[~2021-06-04] MED LIST changes: -ALBUTEROL SULFATE 2.5 MG/0.5 ML INH NEB SOLN INH PRN; -EPINEPHrine INJ 1 MG/ML 1ML AMP IM PRN; -diphenhydrAMINE 50MG/ML VIAL (J1200) IV PRN; -methylPREDNISolone 125MG 2ML VIAL IV PRN
== END ==
LOC: M LAB REF 17:22
PROVIDERS: ATTEND Internal Medicine Nephrology
DX: N18.4 Chronic kidney disease, stage 4 (severe) (principal)

== ENCOUNTER → 2021-06-16 | Outpatient (REF) | payer OTHER | LOC: M LAB REF 17:05 | PROVIDERS: ATTEND Internal Medicine Nephrology | DX: N18.4 Chronic kidney disease, stage 4 (severe) (principal) ==

== ENCOUNTER → 2021-07-16 | Outpatient (REF) | payer OTHER ==
[~2021-07-16] MED LIST changes: -KLOR10TA76 PO; -KLOR20TA42 PO; +POTA-136 PO; +POTA-141 PO
== END ==
LOC: M LAB REF 17:21
PROVIDERS: ATTEND Internal Medicine Nephrology
DX: N18.32 Chronic kidney disease, stage 3b (principal)

== ENCOUNTER → 2021-07-27 | Outpatient (REF) | payer OTHER | LOC: M LAB REF 17:17 | PROVIDERS: ATTEND Internal Medicine Nephrology | DX: N18.32 Chronic kidney disease, stage 3b (principal) ==

== ENCOUNTER → 2021-08-13 | Outpatient (CLI) | payer OTHER ==
[~2021-08-13] MED LIST changes: -MAGN400T3 PO; +MAGN400T33 PO; -TERB250T12 PO; +TERB250T91 PO
--- NOTE | 2021-08-13 11:49 | REP ---
INDICATION: TYPE 2 DIABETES MELLITUS WITH OTH CIRCULATORY COMPLICATIONS. COMPARISON: None TECHNIQUE: AP and lateral views FINDINGS: There is mild to moderate disc space narrowing involving the midthoracic level. Vertebral body height and alignment is within normal limits. There is a mild dextroconvex curve. Marginal osteophyte formation seen along the right side of the thoracic spine. The pedicles appear intact bilaterally. IMPRESSION: Chronic changes as described above. <Electronically signed by Figueroa Corcoran > 08/13/21 [id number]
[2021-08-13 13:36] LABS: HEMOGLOBIN A1c 9.1 %
== END ==
LOC: M PLAIMG 09:55 → M PLALAB 09:55
PROVIDERS: ATTEND Family Medicine
DX: E11.59 Type 2 diabetes mellitus with other circulatory complications (principal); M54.6 Pain in thoracic spine; M25.78 Osteophyte, vertebrae

== ENCOUNTER → 2021-08-18 | Outpatient (CLI) | payer OTHER ==
--- NOTE | 2021-08-18 17:12 | REP ---
INDICATION: PLEURAL EFFUSION, NOT ELSEWHERE CLASSIFIED. COMPARISON: 03/11/2021 a portable exam TECHNIQUE: PA and lateral FINDINGS: Bibasilar opacities have developed since the last exam. There is bilateral CP angle blunting. The cardiomediastinal silhouette is stable. The osseous structures are stable and intact. IMPRESSION: Bibasilar opacities and bibasilar pleural effusions. Pneumonia is suspected. Follow-up is recommended. <Electronically signed by Figueroa Corcoran > 08/18/21 [id number]
== END ==
LOC: M PLAIMG 14:34 → M PLALAB 14:34
PROVIDERS: ATTEND Internal Medicine Nephrology
DX: J90 Pleural effusion, not elsewhere classified (principal); I50.33 Acute on chronic diastolic (congestive) heart failure; R91.8 Other nonspecific abnormal finding of lung field

== ENCOUNTER → 2021-08-27 | Outpatient (CLI) | payer OTHER ==
--- NOTE | 2021-08-27 14:23 | REP ---
INDICATION: ESRD. COMPARISON: None. TECHNIQUE: Real-time sonographic evaluation of the upper extremity veins bilateral FINDINGS: On the right: Basilic vein: Upper humerus, 2.3 mm Lower humerus, 1.9 mm Upper form, not seen Lower forearm, not seen Median cubital, 1.5 mm Cephalic vein: Upper humerus, 1 mm Lower humerus, 1.2 mm Upper forearm, 0.4 mm Lower forearm 0.8 mm Axillary artery: 95.8 centimeters/second triphasic 5.2 mm Brachial artery: 85.3 centimeters/second triphasic 5.1 mm Radial artery: 60.3 centimeters/second triphasic 3.1 mm Ulnar artery: 51.5 centimeters/second triphasic 4.1 mm On the left: Basilic vein: Upper humerus: 2.5 mm Lower humerus: 1.4 mm Upper forearm: Not seen Lower forearm: Not seen Median cubital 1.2 mm Cephalic vein: Upper humerus, 1 mm Lower humerus, 0.9 mm Upper forearm, 0.8 mm Lower forearm, 0.6 mm Axillary artery: 58.3 centimeters/second triphasic 5.2 mm Brachial artery: 89.0 centimeters/second triphasic 4.2 mm Radial artery: 63.5 centimeters/second triphasic 2.2 mm Ulnar artery: 51.1 centimeters/second triphasic 3.5 mm IMPRESSION: The basilic and cephalic veins were seen to be very small bilateral. The basilic vein was unidentifiable in the forearm bilateral. No arterial stenosis was identified. Soft tissue edema was seen in the forearm bilateral. Peak systolic velocities and measurements as described above. <Electronically signed by Figueroa Corcoran > 08/27/21 [id number]
== END ==
LOC: M RAD 12:16
PROVIDERS: ATTEND Internal Medicine Nephrology
DX: Z01.818 Encounter for other preprocedural examination (principal); N18.6 End stage renal disease

== ENCOUNTER 2021-09-16 16:12 | Inpatient (IN) | payer OTHER ==
[~2021-09-16] VITALS: Ht 177.8 cm; Wt 110.3 kg
[2021-09-16 17:05] VITALS: BP 195/95
[2021-09-16] MEDS ORDERED: hydrALAZINE 20MG/ML 1ML VIAL (J0360 PER 20MG) IV ONE (17:45)
[2021-09-16 18:21] LABS: BASO % 0.5 % (0.0-1.0); EOS # 0.2 10^3/uL (0.0-0.5); EOS % 3.1 % (0.0-3.0); HEMATOCRIT 42.6 % (36.0-47.0); HEMOGLOBIN 13.6 g/dl (12.0-15.5); LYMPH # 2.3 10^3/uL (1.5-5.0); LYMPH % 34.7 % (24.0-44.0); MEAN CORPUSCULAR HEMOGLOBIN 29.2 pg (27.0-33.0); MEAN CORPUSCULAR HGB CONC 31.9 g/dl (32.0-36.5); MEAN CORPUSCULAR VOLUME 91.4 fl (80.0-96.0); MONO # 0.4 10^3/uL (0.0-0.8); MONO % 6.7 % (2.0-8.0); NEUTROPHILS # 3.6 10^3/uL (1.5-8.5); NEUTROPHILS % 54.4 % (36.0-66.0); RED BLOOD COUNT 4.66 10^6/uL (4.00-5.40); WHITE BLOOD COUNT 6.6 10^3/uL (4.0-10.0)
--- NOTE | 2021-09-16 18:23 | HPEPDOC ---
General Date of Admission Sep 16, 2021 at 16:40 Date of Service: Sep 16, 2021 Chief Complaint The patient is a 51-year-old female admitted with a reason for visit of [facility] Diabetes. Source: Patient, RN/MD History of Present Illness 51-year-old female with history of CKD stage IV, nephrotic syndrome, severe hypoalbuminemia, diabetes, left BKA, diastolic CHF, hypertension, was sent in from eligibility worker office for massive fluid overload and weight gain. Patient has gained 14 pounds in 2 weeks. Patient is on maximum doses of torsemide spironolactone, and hydrochlorothiazide without any response. Patient complained of severely increased leg swelling which is hard as a rock, bilateral upper extremity swelling. She also complains of intermittent nausea and vomiting. She also complains of some chest tightness feels like a pressure from outside. She reports that she had a chest x-ray 2 weeks ago which showed bilateral pleural effusions. She denies any fever or chills. Denies any chest pain or shortness of breath. Patient reports that blood work was done at the eligibility worker office which is about the same as 2 weeks ago. She has been following with the eligibility worker every 2 weeks. There is plan of placement of AV fistula later this month however surgeon felt that for the procedure to be successful her upper extremity swellings must go down. Home Medications Scheduled Allopurinol (Zyloprim) 300 Mg Tablet, 300 MG PO QHS, (Reported) Apixaban (Eliquis) 5 Mg Tablet, 5 MG PO BID, (Reported) Aspirin (Aspirin EC) 81 Mg Tablet.dr, 162 MG PO DAILY, (Reported) Budesonide/Formoterol (Symbicort 80-4.5 Mcg Inhaler) 6.9 Gm Hfa.aer.ad, 2 PUFF INH BID, (Reported) Bumetanide (Bumetanide) 1 Mg Tablet, 3 MG PO BID@0900,1700 Divalproex Sodium (Depakote) 500 Mg Tablet.dr, 500 MG PO BID, (Reported) Doxycycline Monohydrate (Doxycycline) 100 Mg Capsule, 100 MG PO BID Duloxetine Hcl (Duloxetine HCl) 60 Mg Capsule.dr, 120 MG PO QHS, (Reported) Ergocalciferol (Vitamin D2) (Vitamin D2) 50,000 Units Cap, 50,000 UNITS PO QWEEK, (Reported) MELODY Insulin Degludec (Tresiba Flextouch U-100) 100 Unit/1 Ml Insuln.pen, 22 UNIT SC BID Lactobacillus Acidophilus (Probiotic) 1 Each Capsule, 1 CAP PO QHS, (Reported) Latanoprost (Xelpros) 0.005% 2.5ML Drps.emuls, 1 DROP OU QHS, (Reported) Magnesium Chloride (Mag64) 64 Mg Tabcr, 64 MG PO QHS, (Reported) Montelukast Sodium (Montelukast Sodium) 10 Mg Tab, 10 MG PO QHS, (Reported) Nystatin (Nystatin Powder) 15 Gm Powder, 1 APLCT TOP DAILY, (Reported) APPLY TO GROIN/UNDER BREASTS Omeprazole (Omeprazole) 40 Mg Capsule.dr, 40 MG PO DAILY, (Reported) Potassium Chloride (Potassium Chloride) 10 Meq Tab.er.prt, 20 MEQ PO BID, (Reported) Valacyclovir HCl (Valacyclovir) 500 Mg Tablet, 500 MG PO BID Scheduled PRN Albuterol Sulf (Albuterol Sulfate) 2.5 Mg/3 Ml Vial.neb, 2.5 MG INH Q4H PRN for SHORTNESS OF BREATH, (Reported) Cyclosporine (Restasis) 0.05 % Emu, 1 DROP OU BID PRN for DRY EYES, (Reported) Epinephrine (Epipen 2-Thomas) 0.3 Mg/0.3 Ml Inj, 0.3 MG SC PRN PRN for ALLERGIC REACTION, (Reported) Levalbuterol HCl (Levalbuterol HCl) 1.25 Mg/3 Ml Vial.neb, 1 VIAL NEB Q6H PRN for SOB/WHEEZING, (Reported) Ropinirole HCl (Ropinirole HCl) 4 Mg Tablet, 8 MG PO QHS PRN for RESTLESSNESS, (Reported) Allergies Coded Allergies: Latex, Natural Rubber (Verified Allergy, Severe, anaphylaxis, 09/18/20) Penicillins (Verified Allergy, Severe, anaphylaxis, CEPHALOSPORINS [place], 09/18/20) Sulfa (Sulfonamide Antibiotics) (Verified Allergy, Intermediate, hives, 09/18/20) clindamycin (Verified Allergy, Intermediate, Rash/mouth sores/BURNING OF SKIN, 09/18/20) fenofibrate (Verified Allergy, Mild, rash, 09/18/20) metformin (Verified Allergy, Mild, rash, 09/18/20) pineapple (Verified Allergy, Mild, swollen lips/mouth sores, 09/18/20) SURGICAL ANGIE (Verified Allergy, Unknown, 09/18/20) Past Medical History Medical History IDDM/brittle DM w gastroparesis, retinopathy and neuropathy (attends [facility]) CKD stage 4 Nephrotic Syndrome Diastolic CHF BKA Anemia of chronic disease. Migraines HTN Asthma Bipolar disorder Factor V Leiden deficiency w hx of DVTs in upper and lower extremities on Eliquis L2/L5 spinal stenosis Hypogammaglobulinemia/CVID Fibromyalgia Spina bifida Right TMJ dysfunction Psoriasis RLS Temporal lobe seizures Hiatal hernia w GERD Fatty liver Hx of rectosigmoid ischemic colitis Hx of left sided [place] palsy Hx of stool transplant for C.diff Morbid Obesity H/o Prescription drug abuse. Right index finger burn with super added MSSA infection. Surgical History L BKA to manage chronic wound infection w osteomyelitis R foot amputation / Hx of Charcot foot Cholecystectomy Hysterectomy Cervical discectomy & fusion R breast lumpectomy R ulnar / carpal tunnel release Appendectomy H/o port placement and removal Family History Father, , CAD, pacemaker, prostate CA Mother, , osteoporosis, HTN, CVA multiple family members -DM Social History * Smoker: current smoker Alcohol: Denies Drugs: denies A-FIB/CHADSVASC A-FIB History Current/History of A-Fib/PAF?: No Current PO Anticoag Therapy: Yes Review of Systems Constitutional: Denies: Chills, Fever, Night Sweats Eyes: Denies: Pain, Vision change ENT: Denies: Head Aches, Ear Pain, Dysphagia Skin: Denies: Rash, Lesions, Breakdown Pulmonary: Denies: Dyspnea, Cough Cardiovascular: Reports: Edema, Other Symptoms (Chest tightness) Gastrointestinal: Reports: Nausea, Vomiting Genitourinary: Denies: Dysuria, Frequency, Incontinence Hematologic: Denies: Bruising, Bleeding Excessively Musculoskeletal: Denies: Neck Pain, Back Pain, Joint Pain, Muscle Pain, Spasms Neurological: Denies: Weakness, Numbness, Change in speech, Confusion Physical Examination General Exam: Positive: Alert, Cooperative, No Acute Distress Eye Exam: Positive: PERRLA, Conjunctiva & lids normal, EOMI; Negative: Sclera icteric ENT Exam: Positive: Atraumatic, Mucous membr. moist/pink, Pharynx Normal Neck Exam: Positive: Supple; Negative: JVD, thyromegaly Chest Exam: Positive: Clear to auscultation, Normal air movement, Diminished (Diminished at both the bases), Other (Crackles present on both the base); Negative: Rales, Rhonchi, Wheezing Heart Exam: Positive: Rate Normal, Regular Rhythm, Normal S1, Normal S2; Negative: Murmurs, Rubs Abdomen Exam: Positive: Normal bowel sounds, Soft; Negative: Tenderness Extremity Exam: Positive: Edema (4+ pedal edema in the right leg); Negative: Clubbing, Cyanosis Neuro Exam: Positive: Normal Speech, Strength at 5/5 X4 ext, Normal Tone Psych Exam: Positive: Memory Intact, Oriented x 3 Vital Signs Vital Signs Date Time Temp Pulse Resp B/P (MAP) Pulse Ox O2 Delivery O2 Flow Rate FiO2 09/16/21 17:05 96.8 88 18 195/95 (128) 100 Room Air Assessment/Plan 51-year-old female with history of CKD stage IV, nephrotic syndrome, severe hypoalbuminemia, diabetes, left BKA, diastolic CHF, hypertension, was sent in from eligibility worker office for massive fluid overload and weight gain. CKD stage IV with hypoalbuminemia, nephrotic syndrome and massive fluid overload I will check albumin level If albumin is very low will need to give albumin to help with diuresis We will give 100 mg IV Lasix and start on Lasix infusion We will also give Diuril 500 mg IV twice a day and spironolactone 50 twice a day Nephrology consult Hypertension Will hold home antihypertensive medications to allow for high doses of diuretics Diabetes Fingerstick AC and at bedtime, lispro as per sliding scale, Levemir Asthma We will continue with home inhaler No exacerbation at this time Restless legs We will continue with home meds Bipolar disorder Continue with Depakote Gout/hyperuricemia Continue with allopurinol Glaucoma continue with home eyedrops Fibromyalgia continue duloxetine DVTs continue with Eliquis GERD continue with omeprazole Plan / VTE VTE Prophylaxis Ordered?: Yes Ashwini Acevedo MD Sep 16, 2021 18:23
[2021-09-16 18:32] LABS: INR 0.93; PROTHROMBIN TIME 12.8 SECONDS (12.7-14.5)
[2021-09-16 18:42] LABS: ALBUMIN 1.6 GM/DL (3.2-5.2); BILIRUBIN,TOTAL 0.2 MG/DL (0.2-1.0); CALCIUM LEVEL 8.1 MG/DL (8.5-10.1); CREATININE FOR GFR 2.74 MG/DL (0.55-1.30); GLOMERULAR FILTRATION RATE 19.4 (>51); POTASSIUM SERUM 4.8 MEQ/L (3.5-5.1); TOTAL PROTEIN 5.1 GM/DL (6.4-8.2)
--- NOTE | 2021-09-16 18:43 | REP ---
INDICATION: H/o pleural efussions. COMPARISON: 08/18/2021 a two view exam TECHNIQUE: Portable FINDINGS: The technique utilized in obtaining the radiograph has magnified the cardiac silhouette and attenuated the interstitial markings. Cardiomediastinal silhouette lung juarez are unchanged. Bilateral CP angle blunting consistent with pleural effusions status quo. No new abnormal opacities have developed. There is no change in the osseous structures. IMPRESSION: No significant change <Electronically signed by Figueroa Corcoran > 09/16/21 [id number]
[2021-09-16] MEDS: SPIRONOLACTONE 50 MG TAB PO SCH (18:48)
[2021-09-16] MEDS ORDERED: HUMA50IN4 SC (18:52)
[2021-09-16] MEDS ORDERED: TORS100T PO (18:52)
[2021-09-16] MEDS ORDERED: VALS1TAB67 PO (18:52)
[2021-09-16] MEDS ORDERED: CARV3.12 PO (18:52)
[2021-09-16] MEDS ORDERED: ARIP1TAB PO (18:52)
[2021-09-16] MEDS ORDERED: SPIR100T3 PO (18:52)
[2021-09-16] MEDS ORDERED: LISI10TA22 PO (18:52)
[2021-09-16] MEDS ORDERED: AJOV225I SC (18:52)
[2021-09-16] MEDS ORDERED: ONDA8TAB10 PO (18:52)
[2021-09-16] MEDS ORDERED: FLOM0.4C39 PO (18:52)
[2021-09-16] MEDS ORDERED: LYRI300C PO (18:52)
[2021-09-16] MEDS ORDERED: PROAAER10 INH (18:52)
[2021-09-16] MEDS ORDERED: DEXI60CA2 PO (18:52)
[2021-09-16] MEDS ORDERED: CYCL-707 PO (18:52)
[2021-09-16] MEDS: CHLOROTHIAZIDE 500MG VIAL IV SCH (18:52)
[2021-09-16] MEDS ORDERED: TRES1INJ SC (18:52)
[2021-09-16] MEDS ORDERED: DIPH50CA PO (18:52)
[2021-09-16] MEDS ORDERED: ZYLO100T2 PO (18:52)
[2021-09-16] MEDS ORDERED: METO5TA PO (18:52)
[2021-09-16] MEDS ORDERED: HOME MED LIST COMPLETE! XX SCH (18:55)
[2021-09-16] MEDS ORDERED: FUROSEMIDE 100MG/10ML VIAL (J1940) IV ONE (19:00)
[2021-09-16 20:00] VITALS: BP 158/77
[2021-09-16] MEDS: FUROSEMIDE injection 250 MG in D5W 225 ML IV SCH (21:12)
[2021-09-16 21:40] VITALS: BP 181/87
[2021-09-16 21:55] VITALS: BP 175/89
[2021-09-16 22:40] VITALS: BP 179/92
[2021-09-16 23:59] VITALS: BP 182/97
[2021-09-17] VITALS (13 sets, daily range): BP systolic 12–188; BP diastolic 75–98
[2021-09-17] MEDS ORDERED: NORCO, ANEXSIA 5/325MG TABLET (HYDROcodone/ACETAMINOPHEN) PO ONE (04:15)
[2021-09-17] MEDS ORDERED: ONDANSETRON 4MG/2ML VIAL IV PRN (04:20)
[2021-09-17] MEDS ORDERED: HYDR-4517 PO (06:11)
[2021-09-17 06:24] LABS: BASO % 0.5 % (0.0-1.0); EOS # 0.3 10^3/uL (0.0-0.5); EOS % 4.5 % (0.0-3.0); HEMATOCRIT 35.8 % (36.0-47.0); HEMOGLOBIN 11.7 g/dl (12.0-15.5); LYMPH # 1.9 10^3/uL (1.5-5.0); MEAN CORPUSCULAR HGB CONC 32.7 g/dl (32.0-36.5); MEAN CORPUSCULAR VOLUME 88.8 fl (80.0-96.0); MONO # 0.5 10^3/uL (0.0-0.8); MONO % 7.5 % (2.0-8.0); NEUTROPHILS # 3.6 10^3/uL (1.5-8.5); RED BLOOD COUNT 4.03 10^6/uL (4.00-5.40); WHITE BLOOD COUNT 6.3 10^3/uL (4.0-10.0)
[2021-09-17 06:25] LABS: PLATELET COUNT, AUTOMATED 146 10^3/uL (150-450)
[2021-09-17 06:31] LABS: CALCIUM LEVEL 8.4 MG/DL (8.5-10.1); CREATININE FOR GFR 2.83 MG/DL (0.55-1.30); GLOMERULAR FILTRATION RATE 18.7 (>51); POTASSIUM SERUM 4.5 MEQ/L (3.5-5.1)
[2021-09-17] MEDS: SYMBICORT 80/4.5MCG INHALER 6GM INH SCH ×2 (07:44→19:41)
[2021-09-17 08:32] LABS: PLATELET COUNT, AUTOMATED 15 10^3/uL (150-450)
[2021-09-17] MEDS: DULoxetine 30MG CAPSULE (CYMBALTA) PO SCH ×2 (09:08→21:03)
[2021-09-17] MEDS: allopurinoL 300 MG TAB PO SCH (09:08)
[2021-09-17] MEDS: diphenhydrAMINE 50MG CAP PO SCH ×3 (09:08→21:04)
[2021-09-17] MEDS: APIXABAN 5 MG TAB (ELIQUIS) PO SCH ×2 (09:08→21:04)
[2021-09-17] MEDS: SPIRONOLACTONE 50 MG TAB PO SCH ×2 (09:08→17:48)
[2021-09-17] MEDS: CARVedilol 3.125 MG TAB PO SCH ×2 (09:08→21:04)
[2021-09-17] MEDS: TAMSULOSIN 0.4 MG CAP PO SCH (09:08)
[2021-09-17] MEDS: LEVEMIR (INSULIN DETEMIR) 1 UNITS/0.01ML SC SCH (09:08)
[2021-09-17] MEDS: ONDANSETRON 4 MG TAB PO SCH ×2 (09:08→21:05)
[2021-09-17] MEDS: **hydrALAZINE HCL** 25 MG TAB PO SCH ×4 (09:08→23:14)
[2021-09-17] MEDS: ASPIRIN 81MG ENTERIC TABLET PO SCH (09:08)
[2021-09-17] MEDS: PREGABALIN 100 MG CAP (LYRICA) PO SCH ×2 (09:08→21:04)
[2021-09-17] MEDS: CHLOROTHIAZIDE 500MG VIAL IV SCH ×2 (09:22→17:52)
[2021-09-17] MEDS: FUROSEMIDE injection 250 MG in D5W 225 ML IV SCH ×2 (09:37→21:15)
[2021-09-17] MEDS ORDERED: GLUCAGON INJ 1MG VIAL SC PRN (10:50)
[2021-09-17] MEDS ORDERED: GLUCOSE 4GM CHEW TABLET PO PRN (10:50)
[2021-09-17] MEDS ORDERED: DEXTROSE 50% 50 ML SYRINGE IV PRN (10:50)
[2021-09-17] MEDS: HumaLOG INSULIN (NovoLOG) PER UNIT SC SCH ×3 (12:05→21:00)
[2021-09-17] MEDS: NORCO, ANEXSIA 5/325MG TABLET (HYDROcodone/ACETAMINOPHEN) PO PRN ×2 (12:06→23:50)
--- NOTE | 2021-09-17 16:57 | IPNPDOC ---
Subjective Date Seen The patient was seen on 09/17/21. Subjective Chief Complaint/HPI Had good diuresis overnight with negative 2.7 liters. No complaints this morning. though her albumin is low as she is having good diuresis may not need albumin at present. Objective Physical Examination General Exam: Positive: Alert, Cooperative, No Acute Distress Eye Exam: Positive: PERRLA, Conjunctiva & lids normal, EOMI; Negative: Sclera icteric ENT Exam: Positive: Atraumatic, Mucous membr. moist/pink, Pharynx Normal Neck Exam: Positive: Supple; Negative: JVD, thyromegaly Chest Exam: Positive: Clear to auscultation, Normal air movement, Diminished (Diminished at both the bases), Other (Crackles present on both the base); Negative: Rales, Rhonchi, Wheezing Heart Exam: Positive: Rate Normal, Regular Rhythm, Normal S1, Normal S2; Negative: Murmurs, Rubs Abdomen Exam: Positive: Normal bowel sounds, Soft; Negative: Tenderness Extremity Exam: Positive: Edema (4+ pedal edema in the right leg); Negative: Clubbing, Cyanosis Neuro Exam: Positive: Normal Speech, Strength at 5/5 X4 ext, Normal Tone Psych Exam: Positive: Memory Intact, Oriented x 3 Assessment /Plan Assessment 51-year-old female with history of CKD stage IV, nephrotic syndrome, severe hypoalbuminemia, diabetes, left BKA, diastolic CHF, hypertension, was sent in from medical research assistant office for massive fluid overload and weight gain. CKD stage IV with hypoalbuminemia, nephrotic syndrome and massive fluid overload Albumin at 1.6 will give albumin infusion. Continue lasix infusion We will also give Diuril 500 mg IV twice a day and spironolactone 50 twice a day Nephrology consult Hypertension continue coreg and will add hydralazine as needed. Will hold lisinopril and valsartan. Diabetes Fingerstick AC and at bedtime, lispro as per sliding scale, Levemir Asthma We will continue with home inhaler No exacerbation at this time Restless legs We will continue with home meds Bipolar disorder Continue with Depakote Gout/hyperuricemia Continue with allopurinol Glaucoma continue with home eyedrops Fibromyalgia continue duloxetine DVTs continue with Eliquis GERD continue with omeprazole Plan/VTE VTE Prophylaxis Ordered?: Yes VS, I&O, 24H, Fishbone Vital Signs/I&O Vital Signs Date Time Temp Pulse Resp B/P (MAP) Pulse Ox O2 Delivery O2 Flow Rate FiO2 09/17/21 05:01 18 95 Room Air 09/17/21 04:00 97.4 77 188/95 (126) 09/16/21 23:59 99.0 I&O- Last 24 Hours up to 6 AM 09/17/21 06:00 Intake Total 672.0 ml Output Total 3000 ml Balance -2328.0 ml Laboratory Data 24H LABS Laboratory Tests 2 09/16/21 18:04: Immature Granulocyte % (Auto) 0.6, Neutrophils (%) (Auto) 54.4, Lymphocytes (%) (Auto) 34.7, Monocytes (%) (Auto) 6.7, Eosinophils (%) (Auto) 3.1H, Basophils (%) (Auto) 0.5, Neutrophils # (Auto) 3.6, Lymphocytes # (Auto) 2.3, Monocytes # (Auto) 0.4, Eosinophils # (Auto) 0.2, Basophils # (Auto) 0.0, Nucleated Red Blood Cells % (auto) 0.0, Immature Platelet Fraction 5.6, Prothrombin Time 12.8, Prothromb Time International Ratio 0.93, Anion Gap 6L, Glomerular Filtration Rate 19.4L, Calcium Level 8.1L, Total Bilirubin 0.2, Aspartate Amino Transf (AST/SGOT) 25, Alanine Aminotransferase (ALT/SGPT) 21, Alkaline Phosphatase 138H, Total Protein 5.1L, Albumin 1.6L, Albumin/Globulin Ratio 0.5L 09/16/21 18:16: Bedside Glucose (Misc Panel) 69L 09/16/21 18:21: Coronavirus (COVID-19)(PCR) NEGATIVE 09/17/21 05:52: Immature Granulocyte % (Auto) 0.5, Neutrophils (%) (Auto) 57.0, Lymphocytes (%) (Auto) 30.0, Monocytes (%) (Auto) 7.5, Eosinophils (%) (Auto) 4.5H, Basophils (%) (Auto) 0.5, Neutrophils # (Auto) 3.6, Lymphocytes # (Auto) 1.9, Monocytes # (Auto) 0.5, Eosinophils # (Auto) 0.3, Basophils # (Auto) 0.0, Nucleated Red Blood Cells % (auto) 0.0, Anion Gap 4L, Glomerular Filtration Rate 18.7L, Calcium Level 8.4L CBC/BMP Laboratory Tests 09/16/21 18:04 09/17/21 05:52 Ashwini Acevedo MD Sep 17, 2021 08:04
[2021-09-17] MEDS: rOPINIRole 1MG TAB PO SCH ×2 (17:47→21:03)
--- NOTE | 2021-09-17 18:46 | ECGEPIP ---
[facility] Test Date: 2021-09-16 Pat Name: JOSS FORD Department: Room: [place] [address] Gender: Female Rn Clinical Documentation Specialist: genevieve : 1970 Requested By: Ashwini Acevedo Order Number: [id number] Reading MD: Ben Roper Measurements Intervals [place] Rate: 75 P: 13 ID: [id number] QRS: 9 QRSD: 94 T: 154 QT: 384 QTc: 428 Interpretive Statements Normal sinus rhythm Cannot rule out Anterior infarct , age undetermined Nonspecific T wave abnormality Similar to tracing done 01-09-21 Electronically Signed on 09-17-2021 18:45:45 EST by Ben Roper
[2021-09-17 19:41] LABS: CALCIUM LEVEL 8.4 MG/DL (8.5-10.1); GLOMERULAR FILTRATION RATE 17.4 (>51); POTASSIUM SERUM 4.5 MEQ/L (3.5-5.1)
[2021-09-17] MEDS: ARIPiprazole 10 MG TAB PO SCH (21:03)
--- NOTE | 2021-09-17 21:03 | CR ---
NEPHROLOGY CONSULTATION DATE: 09/17/2021 REQUESTING PHYSICIAN: Dr. Ashwini Acevedo CONSULTING PHYSICIAN: Dr. Hannah Lindsey REASON FOR CONSULTATION: Fluid overload in this patient with chronic kidney disease stage 4. HISTORY OF PRESENT ILLNESS: Rebeca Torres is previously known to me. She is a 51-year-old female with a past medical history of chronic kidney disease stage 4, nephrotic syndrome, type 2 diabetes mellitus, left below the knee amputation, diastolic congestive heart failure, hypertension, and multiple other medical conditions listed below. The patient has been following up closely in the outpatient nephrology office for fluid overload refractory to aggressive oral diuretic regimen. She has been on very high doses of loop diuretic but has continued to retain fluid. Her weight went up by about 14 pounds in the past 2 weeks. She was pending fistula creation but even had significant swelling in her upper extremities. She also developed bilateral pleural effusions and she was subsequently sent for direct admission for IV diuresis and control of her fluid status. The patient was started on aggressive Lasix infusion and has been diuresing well and nephrology evaluation was requested for help in the management of her diuresis in the setting of chronic kidney disease stage 4. The patient was seen and examined this morning at the bedside. She has already made about 5 liters of urine and she reports improvement in her shortness of breath. PAST MEDICAL HISTORY: The patient's past medical history is significant for: 1. Insulin dependent diabetes mellitus with diabetic gastroparesis. 2. Diabetic retinopathy. 3. Diabetic neuropathy. 4. Chronic kidney disease stage 4. 5. Necrotic syndrome. 6. Diastolic congestive heart failure. 7. Below the knee amputation. 8. Anemia of chronic disease. 9. Migraines. 10. Hypertension. 11. Asthma. 12. Bipolar disorder. 13. History of DVTs on Eliquis anticoagulation. 14. Spinal stenosis. 15. Hypogammaglobulinemia. 16. Fibromyalgia. 17. Spina bifida. 18. Psoriasis. 19. Restless leg syndrome. 20. Temporal lobe seizures. 21. Hiatal hernia. 22. Gastroesophageal reflux disease. 23. Fatty liver. 24. History of rectosigmoid ischemic colitis. 25. History of left sided Wynn's palsy. 26. History of stool transplant for C-diff. 27. Obesity. 28. History of prescription drug abuse. 29. Right index finger burn with super added MSSA infection. PAST SURGICAL HISTORY: The patient's past surgical history is significant for: 1. Left below the knee amputation because of osteomyelitis. 2. Right foot amputation with history of Charcot foot. 3. Cholecystectomy. 4. Hysterectomy. 5. Cervical discectomy and fusion. 6. Right breast lumpectomy. 7. Right ulnar and carpal tunnel release. 8. Appendectomy. 9. History of port placement and removal. ALLERGIES: 1. Latex. 2. Natural rubber. 3. Penicillins. 4. Surgical lawrence. 5. Sulfa. 6. Clindamycin. 7. Fenofibrate. 8. Metformin. 9. Pineapple. FAMILY HISTORY: The patient's family history is significant for coronary artery disease in her father and multiple first degree relatives with diabetes mellitus. SOCIAL HISTORY: The patient is a current smoker. No alcohol, no drugs. HOME MEDICATIONS: The patient's home medications are all reviewed. Please see the medical record. REVIEW OF SYSTEMS: Constitutional: She denies fevers or chills. Eyes: She denies visual changes or eye pain. ENT: She denies headache, earache or dysphagia. Skin: She denies any new lesions or rashes. Cardiac: She reports swelling and fluid retention. She denies chest pain. She has a history of diastolic congestive heart failure. Respiratory: She reports asthma and shortness of breath and recent pleural effusions. Gastrointestinal: She has a history of diabetic gastroparesis and a history of stool transplant for C-diff. She denies any current GI issues. Genitourinary: She denies dysuria or hematuria. Endocrine: She reports diabetes mellitus, obesity. Hematologic: She reports anticoagulant use and a history of DVTs. Musculoskeletal: She reports swelling in her right lower extremity and she reports left below the knee amputation. Neurologic: She has a history of Wynn's palsy and spina bifida and temporal lobe seizures. The remainder review of systems is negative or as HPI. PHYSICAL EXAMINATION: VITAL SIGNS: Temperature 97.3, pulse 74, respiratory rate 18, blood pressure 136/76, saturating 98% on room air. INTAKE AND OUTPUT: Intake today so far was 700 mL. Urine output was more than 5 liters. Weight in the bed scale today is 118 kg. GENERAL APPEARANCE: The patient is seen sitting in bed, awake, alert, oriented x3, comfortable, in no apparent distress. HEENT: The extraocular muscles are intact. Tongue is moist. NECK: Supple. Jugular veins are elevated. HEART: Sounds are regular S1, S2. There is 3+ edema in the right lower extremity. There is also 1+ edema in the arm. There is edema in the dependent areas and the dependent abdominal saeed. LUNGS: Diminished breath sounds at the bases and crackles in the bases. The patient is comfortable on room air. There is no accessory muscle use or tachypnea. ABDOMEN: Soft, obese and nontender. There is pitting edema in the dependent abdominal flanks. GENITOURINARY: There is no Bishop catheter. She has been voiding to the commode. EXTREMITIES: There is edema throughout the right lower extremity confluent with the hip. There is left below the knee amputation with intact stump. NEUROLOGIC: She is oriented x3, interactive, conversational, at baseline mentation. No focal deficits. LABORATORY STUDIES: Sodium 141, potassium 4.5, BUN 28, creatinine 2.8, magnesium is pending. Albumin is 1.6. Bicarbonate 26, hemoglobin 11.7, platelet count 146. IMAGING: Chest x-ray done yesterday shows pleural effusions. INPATIENT MEDICATIONS: The patient is currently on Lasix drip at 10 mg per hour. Hydrocodone p.r.n., Allopurinol 300 mg p.o. daily, Eliquis 5 mg p.o. twice daily, Abilify 10 mg p.o. q. h.s., aspirin 162 mg p.o. daily, Symbicort 2 puffs inhaled twice daily, Carvedilol 3.125 mg p.o. twice daily, Diuril 500 mg IV twice daily, Duloxetine 60 mg p.o. twice daily, Hydralazine 25 mg p.o. q. 6 hourly, insulin, Zofran 8 mg p.o. twice daily, Lyrica 300 mg p.o. twice daily, Ropinirole 4 mg p.o. twice daily, Spironolactone 50 mg p.o. twice daily, Flomax 0.4 mg p.o. daily. PROBLEMS: 1. Fluid overload secondary to decompensated diastolic congestive heart failure, nephrotic range chronic kidney disease stage 4 with severe hypoalbuminemia - The patient's serum albumin is only 1.6. Echocardiogram from December 2020 reviewed with grade one diastolic dysfunction. The patient has significant fluid retention including edema present in the upper extremities which will make arterial venous access creation challenging. She has an appointment with Vascular Surgery next week. We need to try and optimize her volume status. She is responding well to IV diuretics. She is on an aggressive regimen right now with Lasix infusion, IV Diuril and oral Spironolactone. She failed an aggressive regimen of oral diuretics at home but is responding well now to the inpatient diuresis. She has already made more than 5 liters of urine today and has received 3 doses of Diuril. I am going to go ahead and hold Diuril now. The patient will continue on IV Lasix and Spironolactone. I would like to see her net negative by around 15 liters. 2. Chronic kidney disease stage 4 with nephrotic range proteinuria - The patient is being diuresed aggressively. She has a serum albumin of 1.6. She is going to receive albumin infusion to help augment diuresis. Her renal function is acceptable and I suspect creatinine will likely trend upwards with aggressive diuresis as her volume status is corrected. She is going to start dialysis in the near future once she has a functional dialysis access. 3. Hypertension with hypertensive heart disease - blood pressure was 195/95 on admission. Uncontrolled blood pressure secondary to severe hypervolemia, and I would expect that blood pressure will improve as she is aggressively diuresed. She is also on Hydralazine and Carvedilol (in addition to the loop diuretics, potassium sparing diuretics and Thiazide diuretic). 4. Electrolyte monitoring with aggressive diuresis we will keep an eye on her potassium level and magnesium level is ordered as well.
[2021-09-18] VITALS (15 sets, daily range): BP systolic 132–198; BP diastolic 60–91
[2021-09-18] MEDS: **hydrALAZINE HCL** 25 MG TAB PO SCH ×4 (05:25→23:25)
[2021-09-18 06:17] LABS: BASO % 0.5 % (0.0-1.0); EOS # 0.2 10^3/uL (0.0-0.5); EOS % 2.4 % (0.0-3.0); HEMATOCRIT 38.5 % (36.0-47.0); HEMOGLOBIN 12.7 g/dl (12.0-15.5); LYMPH # 1.7 10^3/uL (1.5-5.0); LYMPH % 23.2 % (24.0-44.0); MEAN CORPUSCULAR HEMOGLOBIN 28.9 pg (27.0-33.0); MEAN CORPUSCULAR VOLUME 87.5 fl (80.0-96.0); MONO # 0.4 10^3/uL (0.0-0.8); NEUTROPHILS % 68.4 % (36.0-66.0); PLATELET COUNT, AUTOMATED 192 10^3/uL (150-450); WHITE BLOOD COUNT 7.4 10^3/uL (4.0-10.0)
[2021-09-18 06:38] LABS: CALCIUM LEVEL 8.5 MG/DL (8.5-10.1); CREATININE FOR GFR 2.98 MG/DL (0.55-1.30); GLOMERULAR FILTRATION RATE 17.6 (>51); MAGNESIUM LEVEL 1.8 MG/DL (1.8-2.4); POTASSIUM SERUM 4.4 MEQ/L (3.5-5.1)
[2021-09-18] MEDS: SYMBICORT 80/4.5MCG INHALER 6GM INH SCH ×2 (07:08→19:41)
[2021-09-18] MEDS: HumaLOG INSULIN (NovoLOG) PER UNIT SC SCH ×4 (07:30→21:00)
[2021-09-18] MEDS: SPIRONOLACTONE 50 MG TAB PO SCH (08:42)
[2021-09-18] MEDS: NORCO, ANEXSIA 5/325MG TABLET (HYDROcodone/ACETAMINOPHEN) PO PRN ×2 (08:42→14:46)
[2021-09-18] MEDS: DULoxetine 30MG CAPSULE (CYMBALTA) PO SCH ×2 (08:42→21:58)
[2021-09-18] MEDS: ASPIRIN 81MG ENTERIC TABLET PO SCH (08:42)
[2021-09-18] MEDS: PREGABALIN 100 MG CAP (LYRICA) PO SCH ×2 (08:43→21:58)
[2021-09-18] MEDS: CARVedilol 3.125 MG TAB PO SCH ×2 (08:43→21:59)
[2021-09-18] MEDS: diphenhydrAMINE 50MG CAP PO SCH ×2 (08:43→12:51)
[2021-09-18] MEDS: allopurinoL 300 MG TAB PO SCH (08:43)
[2021-09-18] MEDS: APIXABAN 5 MG TAB (ELIQUIS) PO SCH ×2 (08:44→21:59)
[2021-09-18] MEDS: TAMSULOSIN 0.4 MG CAP PO SCH (08:44)
[2021-09-18] MEDS: ONDANSETRON 4 MG TAB PO SCH ×2 (08:44→21:59)
[2021-09-18] MEDS: LEVEMIR (INSULIN DETEMIR) 1 UNITS/0.01ML SC SCH (08:44)
--- NOTE | 2021-09-18 10:58 | IPNPDOC ---
Subjective Date Seen The patient was seen on 09/18/21. Subjective Chief Complaint/HPI No complaints this morning patient had a fall earlier this morning because her prosthetic leg did not catch properly and got lose when she stood up. She denied injuring herself anywhere. Says her leg swelling as well as swelling of her upper extremities are down. Denies any cough phlegm or breathing trouble Objective Physical Examination General Exam: Positive: Alert, Cooperative, No Acute Distress Eye Exam: Positive: PERRLA, Conjunctiva & lids normal, EOMI; Negative: Sclera icteric ENT Exam: Positive: Atraumatic, Mucous membr. moist/pink, Pharynx Normal Neck Exam: Positive: Supple; Negative: JVD, thyromegaly Chest Exam: Positive: Clear to auscultation, Normal air movement, Diminished (Diminished at both the bases), Other (Crackles present on both the base); Negative: Rales, Rhonchi, Wheezing Heart Exam: Positive: Rate Normal, Regular Rhythm, Normal S1, Normal S2; Negative: Murmurs, Rubs Abdomen Exam: Positive: Normal bowel sounds, Soft; Negative: Tenderness Extremity Exam: Positive: Edema (4+ pedal edema in the right leg); Negative: Clubbing, Cyanosis Neuro Exam: Positive: Normal Speech, Strength at 5/5 X4 ext, Normal Tone Psych Exam: Positive: Memory Intact, Oriented x 3 Assessment /Plan Assessment 51-year-old female with history of CKD stage IV, nephrotic syndrome, severe hypoalbuminemia, diabetes, left BKA, diastolic CHF, hypertension, 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 CKD stage IV with hypoalbuminemia, nephrotic syndrome and massive fluid overload Albumin at 1.6 will give albumin infusion. Continue lasix infusion, Diuril and spironolactone Diuretics are being adjusted by nephrology Hypertension continue coreg and will add hydralazine as needed. Will hold lisinopril and valsartan. Diabetes Fingerstick AC and at bedtime, lispro as per sliding scale, Levemir Asthma We will continue with home inhaler No exacerbation at this time Restless legs We will continue with home meds Bipolar disorder Continue with Depakote Gout/hyperuricemia Continue with allopurinol Glaucoma continue with home eyedrops Fibromyalgia continue duloxetine DVTs continue with Eliquis GERD continue with omeprazole Plan/VTE VTE Prophylaxis Ordered?: Yes VS, I&O, 24H, Fishbone Vital Signs/I&O Vital Signs Date Time Temp Pulse Resp B/P (MAP) Pulse Ox O2 Delivery O2 Flow Rate FiO2 09/18/21 10:28 97.8 75 18 176/88 Room Air 09/18/21 10:12 100 09/16/21 23:59 99.0 I&O- Last 24 Hours up to 6 AM 09/18/21 06:00 Intake Total 1070.0 ml Output Total 4300 ml Balance -3230.0 ml Laboratory Data 24H LABS Laboratory Tests 2 09/17/21 11:38: Bedside Glucose (Misc Panel) 144H 09/17/21 16:55: Bedside Glucose (Misc Panel) 104 09/17/21 19:10: Anion Gap 6L, Glomerular Filtration Rate 17.4L, Calcium Level 8.4L 09/17/21 21:17: Bedside Glucose (Misc Panel) 92 09/18/21 05:57: Immature Granulocyte % (Auto) 0.5, Neutrophils (%) (Auto) 68.4H, Lymphocytes (%) (Auto) 23.2L, Monocytes (%) (Auto) 5.0, Eosinophils (%) (Auto) 2.4, Basophils (%) (Auto) 0.5, Neutrophils # (Auto) 5.0, Lymphocytes # (Auto) 1.7, Monocytes # (Auto) 0.4, Eosinophils # (Auto) 0.2, Basophils # (Auto) 0.0, Nucleated Red Blood Cells % (auto) 0.0, Anion Gap 8, Glomerular Filtration Rate 17.6L, Calcium Level 8.5, Magnesium Level 1.8 CBC/BMP Laboratory Tests 09/17/21 19:10 09/18/21 05:57 Ashwini Acevedo MD Sep 18, 2021 10:58
[2021-09-18] MEDS ORDERED: CHLOROTHIAZIDE 500MG VIAL IV ONE (11:00)
--- NOTE | 2021-09-18 14:32 | IPN ---
PROGRESS NOTE DATE: 09/18/2021 SUBJECTIVE: Ms. Jose is seen and examined this morning at the bedside. She reports that her breathing feels better today. She reports the edema in the extremities is going down. She diuresed more than 6 liters in the past 24 hours but her daily weight did not change that much. OBJECTIVE: VITAL SIGNS: Temperature 96.2, pulse 81, respiratory rate 18, bp 152/82, is saturating 93 to 98% on room air. Urine output yesterday was 6.5 liters, weight in the bed scale today is 119.3 kg. GENERAL: The patient is seen awake, alert, oriented, comfortable, in no apparent distress. HEENT: Extraocular muscles intact. Tongue is moist. NECK: Supple, jugular veins are mildly elevated. HEART: Sounds are regular, S1, S2, there is ongoing 2+ to 3+ edema in the right lower extremity that comes up to the hip, thigh and abdominal saeed. LUNGS: Clear to auscultation with improved bibasilar crackles. She is comfortable on room air. No accessory muscle use, no tachypnea. ABDOMEN: Soft, obese, nontender. EXTREMITIES: There is improved edema in her arms. There is still significant edema in the right lower extremity that is confluent with the hip and the abdominal wall. There is left below-knee amputation. NEUROLOGIC: She is oriented x3, interactive, conversational at baseline mentation. LABS: White count 7.4, hemoglobin 12.7, platelets 192. Sodium 140, potassium 4.4, bicarbonate 23, BUN 31, creatinine 2.9, magnesium 1.8. INPATIENT MEDICATIONS: She is on: 1. Lasix drip at 10 mg an hour. 2. She is ordered for another dose of IV Diuril today. Remainder of medications are unchanged as compared to yesterday. PROBLEMS: 1. Fluid overload secondary to decompensated diastolic congestive heart failure and nephrotic range chronic kidney disease stage 4 with severe hypoalbuminemia (serum albumin less than 2.). Echocardiogram January 03, 2021 with grade 1 diastolic dysfunction. The patient had significant fluid retention including edema present in upper extremities which created a complication given that she was pending arteriovenous access creation in the near future. Hence she was admit for optimization of her volume status. Her fluid overload was refractory to aggressive oral diuretics but she is responding well to IV regimen now. Continue with Lasix infusion at 10 mg per hour, continue with oral Spironolactone. She is going to receive another dose of IV Diuril today. She made more than 6 liters of urine yesterday. I would like to see her negative around 15 liters. 2. CKD stage 4 with nephrotic range proteinuria. The patient is being aggressively diuresed and responding well to the combination IV diuretic regimen. She is receiving albumin infusion to help increase oncotic pressure and augment diuresis. Her renal function is acceptable and I suspect creatinine will likely trend upward with aggressive diuresis and correction of hypervolemia. She is going to start dialysis in the near future once she has a functional arteriovenous access. 3. Hypertension with hypertensive heart disease. Uncontrolled blood pressures were secondary to severe hypervolemia and blood pressures are now improving. She continues on Lasix infusions, Spironolactone. She is going to get another dose of IV Diuril today. She is also on Carvedilol, Hydralazine. HOME MEDICATIONS: The medication reconciliation notes that the patient is on Valsartan and Lisinopril. This is incorrect and an error. The patient does not take any MAXINE or ARB in view of her advanced chronic kidney disease.
[2021-09-18] MEDS ORDERED: diphenhydrAMINE 50MG CAP PO PRN (16:30)
[2021-09-18] MEDS: rOPINIRole 1MG TAB PO SCH ×2 (18:00→21:58)
[2021-09-18] MEDS: ARIPiprazole 10 MG TAB PO SCH (21:58)
[2021-09-19] VITALS (10 sets, daily range): BP systolic 135–192; BP diastolic 70–130
[2021-09-19] MEDS: **hydrALAZINE HCL** 25 MG TAB PO SCH ×3 (03:01→17:58)
[2021-09-19 05:48] LABS: BASO % 0.4 % (0.0-1.0); EOS # 0.2 10^3/uL (0.0-0.5); EOS % 3.4 % (0.0-3.0); HEMATOCRIT 34.1 % (36.0-47.0); HEMOGLOBIN 10.8 g/dl (12.0-15.5); LYMPH # 1.6 10^3/uL (1.5-5.0); LYMPH % 23.3 % (24.0-44.0); MEAN CORPUSCULAR HEMOGLOBIN 28.6 pg (27.0-33.0); MEAN CORPUSCULAR HGB CONC 31.7 g/dl (32.0-36.5); MEAN CORPUSCULAR VOLUME 90.5 fl (80.0-96.0); MONO # 0.4 10^3/uL (0.0-0.8); MONO % 5.7 % (2.0-8.0); NEUTROPHILS # 4.6 10^3/uL (1.5-8.5); NEUTROPHILS % 66.8 % (36.0-66.0); PLATELET COUNT, AUTOMATED 134 10^3/uL (150-450); RED BLOOD COUNT 3.77 10^6/uL (4.00-5.40); WHITE BLOOD COUNT 6.8 10^3/uL (4.0-10.0)
[2021-09-19 06:12] LABS: CALCIUM LEVEL 8.2 MG/DL (8.5-10.1); CREATININE FOR GFR 2.87 MG/DL (0.55-1.30); GLOMERULAR FILTRATION RATE 18.4 (>51)
[2021-09-19] MEDS: CARVedilol 3.125 MG TAB PO SCH ×2 (06:26→21:02)
[2021-09-19] MEDS: NORCO, ANEXSIA 5/325MG TABLET (HYDROcodone/ACETAMINOPHEN) PO PRN ×2 (06:28→21:04)
[2021-09-19] MEDS: HumaLOG INSULIN (NovoLOG) PER UNIT SC SCH ×4 (07:30→21:00)
[2021-09-19] MEDS: SYMBICORT 80/4.5MCG INHALER 6GM INH SCH ×2 (09:36→20:09)
[2021-09-19] MEDS: PREGABALIN 100 MG CAP (LYRICA) PO SCH ×2 (09:50→21:03)
[2021-09-19] MEDS: DULoxetine 30MG CAPSULE (CYMBALTA) PO SCH ×2 (09:50→21:03)
[2021-09-19] MEDS: ASPIRIN 81MG ENTERIC TABLET PO SCH (09:50)
[2021-09-19] MEDS: ONDANSETRON 4 MG TAB PO SCH ×2 (09:51→21:03)
[2021-09-19] MEDS: TAMSULOSIN 0.4 MG CAP PO SCH (09:51)
[2021-09-19] MEDS: allopurinoL 300 MG TAB PO SCH (09:51)
[2021-09-19] MEDS: amLODIPine 5 MG TAB PO SCH (09:51)
[2021-09-19] MEDS: APIXABAN 5 MG TAB (ELIQUIS) PO SCH ×2 (09:51→21:03)
[2021-09-19] MEDS: LEVEMIR (INSULIN DETEMIR) 1 UNITS/0.01ML SC SCH (09:51)
[2021-09-19] MEDS ORDERED: BUMETANIDE 1 MG TAB PO SCH (13:40)
--- NOTE | 2021-09-19 13:47 | IPNPDOC ---
Subjective Date Seen The patient was seen on 09/19/21. Subjective Chief Complaint/HPI Patient had 2 falls yesterday. She reports that her right leg is very weak and unable to support her weight. She has difficulty in raising the leg to the bed and has to pull it up. That has been going on from home however was able to bear weight in one leg but now she cannot do that so she kept falling. Did not have any injuries. No shortness of breath cough chest pain. Leg remain very swollen and tight. Has been having diarrhea. Denies any abdominal pain. Does have intermittent nausea for which she is taking Zofran. Patient has been tolerating aggressive diuresis without any worsening of renal function. Objective Physical Examination General Exam: Positive: Alert, Cooperative, No Acute Distress Eye Exam: Positive: PERRLA, Conjunctiva & lids normal, EOMI; Negative: Sclera icteric ENT Exam: Positive: Atraumatic, Mucous membr. moist/pink, Pharynx Normal Neck Exam: Positive: Supple; Negative: JVD, thyromegaly Chest Exam: Positive: Clear to auscultation, Normal air movement, Diminished (Diminished at both the bases), Other (Crackles present on both the base); Negative: Rales, Rhonchi, Wheezing Heart Exam: Positive: Rate Normal, Regular Rhythm, Normal S1, Normal S2; Negative: Murmurs, Rubs Abdomen Exam: Positive: Normal bowel sounds, Soft; Negative: Tenderness Extremity Exam: Positive: Edema (4+ pedal edema in the right leg); Negative: Clubbing, Cyanosis Neuro Exam: Positive: Normal Speech, Strength at 5/5 X4 ext, Normal Tone Psych Exam: Positive: Memory Intact, Oriented x 3 Assessment /Plan Assessment 51-year-old female with history of CKD stage IV, nephrotic syndrome, severe hypoalbuminemia, diabetes, left BKA, diastolic CHF, hypertension, was 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 CKD stage IV with hypoalbuminemia, nephrotic syndrome and massive fluid overload Albumin at 1.6 got 8 bags of albumin Continue spironolactone, will stop Lasix infusion and start on bumetanide 1 mg twice daily Diuretics are being adjusted by nephrology Hypertension continue coreg and will add hydralazine and amlodipine Will hold lisinopril and valsartan. Diabetes Fingerstick AC and at bedtime, lispro as per sliding scale, Levemir Asthma We will continue with home inhaler No exacerbation at this time Restless legs We will continue with home meds Bipolar disorder Continue with Depakote Gout/hyperuricemia Continue with allopurinol Glaucoma continue with home eyedrops Fibromyalgia continue duloxetine DVTs continue with Eliquis GERD continue with omeprazole Plan/VTE VTE Prophylaxis Ordered?: Yes VS, I&O, 24H, Fishbone Vital Signs/I&O Vital Signs Date Time Temp Pulse Resp B/P (MAP) Pulse Ox O2 Delivery O2 Flow Rate FiO2 09/19/21 13:16 170/79 09/19/21 12:00 97.6 97 17 96 Room Air 09/16/21 23:59 99.0 I&O- Last 24 Hours up to 6 AM 09/19/21 05:59 Intake Total 1795.0 ml Output Total 3000 ml Balance -1205.0 ml Laboratory Data 24H LABS Laboratory Tests 2 09/18/21 16:21: Bedside Glucose (Misc Panel) 128H 09/18/21 21:29: Bedside Glucose (Misc Panel) 139H 09/19/21 05:34: Immature Granulocyte % (Auto) 0.4, Neutrophils (%) (Auto) 66.8H, Lymphocytes (%) (Auto) 23.3L, Monocytes (%) (Auto) 5.7, Eosinophils (%) (Auto) 3.4H, Basophils (%) (Auto) 0.4, Neutrophils # (Auto) 4.6, Lymphocytes # (Auto) 1.6, Monocytes # (Auto) 0.4, Eosinophils # (Auto) 0.2, Basophils # (Auto) 0.0, Nucleated Red Blood Cells % (auto) 0.0, Anion Gap 9, Glomerular Filtration Rate 18.4L, Calcium Level 8.2L 09/19/21 13:13: Bedside Glucose (Misc Panel) 115H CBC/BMP Laboratory Tests 09/19/21 05:34 Ashwini Acevedo MD Sep 19, 2021 13:47
--- NOTE | 2021-09-19 16:35 | IPN ---
NEPHROLOGY PROGRESS NOTE DATE: 09/19/2021 SUBJECTIVE: Ms. Soliz is seen this morning on her bedside. She is feeling much better today. However, she reports that she could not sleep last night. She has diuresed very well since admission with significant negative fluid balance and improvement in her generalized edema. She is not requiring any supplemental oxygen and denies any nausea or vomiting. She does have known history of chronic kidney disease with GFR only about 20 mL/hour. Dialysis has been discussed with her; however, she has not been dialyzed so far. She was admitted after failing to respond to maximum dose of multiple diuretics as an outpatient. She responded very well to intravenous Lasix drip, which is currently on hold due to orthostatic dizziness after she diuresed significantly. PHYSICAL EXAMINATION: GENERAL: She is comfortable sitting in the bed. VITAL SIGNS: Temperature 97.6 degrees Fahrenheit, heart rate 98 per minute, respiratory rate 18 per minute, blood pressure 170/79 mmHg, oxygen saturation 96% on room air. HEAD: Atraumatic. NECK: Supple and jugular venous distention (JVD) is mildly elevated. HEART SOUNDS: Tachycardic and regular. LUNGS: Diminished breath sounds at bases bilaterally. ABDOMEN: Soft and nontender. Bowel sounds are normal. EXTREMITIES: Without any cyanosis or clubbing. She has a left [id number] amputation. Right leg still has at least 2+ edema below the knee. NEUROLOGIC: She is awake, alert and oriented times three. INTAKE AND OUTPUT: Intake and output records show a negative fluid balance of 1.8 liters yesterday. Her weight is down to 110.8 kg, while she weighed 122.5 kg on admission. LABORATORY DATA: Today's labs show sodium 142, potassium 4.0, chloride 110, CO2 23, BUN 32, creatinine 2.87. WBC count 6.8, hemoglobin 10.8, hematocrit 34. PROBLEMS: 1. Acute on chronic congestive heart failure in the setting of advanced chronic kidney disease. Patient failed to respond to combination of high dose diuretics as an outpatient. She has responded very well to intravenous Lasix drip, which is currently on hold. She has already diuresed significantly and we will switch her to oral diuretic now. In the past, she has been on furosemide and torsemide, which failed. We will give her a trial of bumetanide and see how she responds. I discussed with the doctors earlier and they recommended bumetanide 1 mg twice a day. She has not diuresed very well today, so I am going to increase the bumetanide dose to 2 mg twice a day. We will monitor her urine output for the next 24 hours. 2. Chronic kidney disease. There is no significant change in her kidney function since admission and this is most likely her baseline kidney function. Her GFR has remained between 17 and 18 mL/min. There is no urgent need for dialysis. I have explained to her about potential need for dialysis if she fails to respond to diuretics. It remains to be seen how she does over the next 48 hours. 3. Anemia. Her anemia has worsened and is most likely this is related to diuresis and congestive heart failure. I do not feel that she has any blood loss. CBC should be repeated again tomorrow. 4. Intravenous (IV) albumin. Patient has been receiving IV albumin since admission. I do not feel that she will need to continue that after today. We will stop her IV albumin now and recheck her renal profile tomorrow, as she has now been diuresed adequately.
[2021-09-19] MEDS: rOPINIRole 1MG TAB PO SCH ×2 (17:57→21:03)
[2021-09-19] MEDS: BUMETANIDE 1 MG TAB PO SCH (17:58)
[2021-09-19] MEDS: SPIRONOLACTONE 50 MG TAB PO SCH (17:58)
[2021-09-19] MEDS: ARIPiprazole 10 MG TAB PO SCH (21:45)
[2021-09-20] VITALS: BP 139/72
[2021-09-20] MEDS: **hydrALAZINE HCL** 25 MG TAB PO SCH ×3 (06:13→11:49)
[2021-09-20 06:34] LABS: BASO % 0.4 % (0.0-1.0); EOS # 0.1 10^3/uL (0.0-0.5); EOS % 2.4 % (0.0-3.0); HEMATOCRIT 31.6 % (36.0-47.0); HEMOGLOBIN 10.6 g/dl (12.0-15.5); LYMPH # 1.3 10^3/uL (1.5-5.0); LYMPH % 25.5 % (24.0-44.0); MEAN CORPUSCULAR HEMOGLOBIN 29.2 pg (27.0-33.0); MEAN CORPUSCULAR HGB CONC 33.5 g/dl (32.0-36.5); MEAN CORPUSCULAR VOLUME 87.1 fl (80.0-96.0); MONO # 0.5 10^3/uL (0.0-0.8); MONO % 9.6 % (2.0-8.0); NEUTROPHILS # 3.1 10^3/uL (1.5-8.5); NEUTROPHILS % 61.5 % (36.0-66.0); PLATELET COUNT, AUTOMATED 148 10^3/uL (150-450); RED BLOOD COUNT 3.63 10^6/uL (4.00-5.40)
[2021-09-20 07:00] LABS: ALT/SGPT 18 U/L (12-78); BILIRUBIN,DIRECT < 0.1 MG/DL (0.0-0.2); BILIRUBIN,TOTAL 0.7 MG/DL (0.2-1.0); BLOOD UREA NITROGEN 30 MG/DL (7-18); CALCIUM LEVEL 7.8 MG/DL (8.5-10.1); CARBON DIOXIDE LEVEL 26 MEQ/L (21-32); CHLORIDE LEVEL 109 MEQ/L (98-107); CREATININE FOR GFR 2.91 MG/DL (0.55-1.30); GLOMERULAR FILTRATION RATE 18.1 (>51); GLUCOSE, FASTING 82 MG/DL (70-100); POTASSIUM SERUM 3.7 MEQ/L (3.5-5.1); SODIUM LEVEL 144 MEQ/L (136-145); TOTAL PROTEIN 4.6 GM/DL (6.4-8.2)
[2021-09-20] MEDS: HumaLOG INSULIN (NovoLOG) PER UNIT SC SCH ×2 (07:30→12:00)
[2021-09-20 08:00] VITALS: BP 160/78
[2021-09-20] MEDS: SYMBICORT 80/4.5MCG INHALER 6GM INH SCH (08:22)
[2021-09-20] MEDS: LEVEMIR (INSULIN DETEMIR) 1 UNITS/0.01ML SC SCH (08:57)
[2021-09-20 08:58] VITALS: BP 160/78
[2021-09-20] MEDS: CARVedilol 3.125 MG TAB PO SCH (08:58)
[2021-09-20] MEDS: BUMETANIDE 1 MG TAB PO SCH (08:58)
[2021-09-20] MEDS: ASPIRIN 81MG ENTERIC TABLET PO SCH (08:58)
[2021-09-20] MEDS: PREGABALIN 100 MG CAP (LYRICA) PO SCH (08:58)
[2021-09-20] MEDS: amLODIPine 5 MG TAB PO SCH (08:59)
[2021-09-20] MEDS: SPIRONOLACTONE 50 MG TAB PO SCH (08:59)
[2021-09-20] MEDS: APIXABAN 5 MG TAB (ELIQUIS) PO SCH (08:59)
[2021-09-20] MEDS: allopurinoL 300 MG TAB PO SCH (08:59)
[2021-09-20] MEDS: TAMSULOSIN 0.4 MG CAP PO SCH (08:59)
[2021-09-20] MEDS: DULoxetine 30MG CAPSULE (CYMBALTA) PO SCH (08:59)
[2021-09-20] MEDS: ONDANSETRON 4 MG TAB PO SCH (08:59)
[2021-09-20] MEDS: NORCO, ANEXSIA 5/325MG TABLET (HYDROcodone/ACETAMINOPHEN) PO PRN (09:05)
[2021-09-20] MEDS ORDERED: BUME1TAB3 PO (11:15)
[2021-09-20] MEDS ORDERED: AMLO1TAB24 PO (11:15)
[2021-09-20] MEDS ORDERED: ALDA50TA2 PO (11:15)
[2021-09-20] MEDS ORDERED: HYDR25TA PO (11:15)
[2021-09-20] MEDS ORDERED: TRES1INJ SC (11:17)
--- NOTE | 2021-09-20 11:33 | DS.PDOC ---
Discharge Summary General Date of Admission Sep 16, 2021 at 16:40 Date of Discharge 09/20/21 Discharge Summary PROCEDURES PERFORMED DURING STAY: [None]. DISCHARGE DIAGNOSES: CKD stage IV with hypoalbuminemia, nephrotic syndrome and massive fluid overload Acute on chronic diastolic CHF SECONDARY DIAGNOSIS: IDDM/brittle DM w gastroparesis, retinopathy and neuropathy (attends [facility]) CKD stage 4 Nephrotic Syndrome Diastolic CHF Left BKA to manage chronic wound infection w osteomyelitis Anemia of chronic disease. Migraines HTN Asthma Bipolar disorder Factor V Leiden deficiency w hx of DVTs in upper and lower extremities on Eliquis L2/L5 spinal stenosis Hypogammaglobulinemia/CVID Fibromyalgia Spina bifida Right TMJ dysfunction Psoriasis RLS Temporal lobe seizures Hiatal hernia w GERD Fatty liver Hx of rectosigmoid ischemic colitis Hx of left sided [place] palsy Hx of stool transplant for C.diff Obesity H/o Prescription drug abuse. R foot amputation / Hx of Charcot foot COMPLICATIONS/CHIEF COMPLAINT: Chf, Diabetes. HOSPITAL COURSE: 51-year-old female with history of CKD stage IV, nephrotic syndrome, severe hypoalbuminemia, diabetes, left BKA, diastolic CHF, hypertension, was sent in from [facility] office for massive fluid overload and weight gain. CKD stage IV with hypoalbuminemia, nephrotic syndrome and massive fluid overload Albumin at 1.6 got 8 bags of albumin Received Lasix infusion and IV Diuril with very good response. Continue spironolactone 50 bid and bumax 2 mg bid. Stop all other diuretics as per Dr Lindsey. Diuretics are being adjusted by nephrology Acute on chronic diastolic CHF In the setting of CKD stage IV Continue bumetanide and spironolactone Hypertension continue coreg , Started on hydralazine 25 tid and amlodipine 5 daily Stopped lisinopril and valsartan. Diabetes Requiring less insulin probably due to progressing kidney disease Tresiba insulin reduced to 20 u , continue short acting as per sliding scle Doses may need to be lowered further. Asthma We will continue with home inhaler No exacerbation at this time Restless legs We will continue with home meds Bipolar disorder Continue with Depakote Gout/hyperuricemia Continue with allopurinol Glaucoma continue with home eyedrops Fibromyalgia continue duloxetine DVTs continue with Eliquis GERD continue with omeprazole DISCHARGE MEDICATIONS: Please see below. ALLERGIES: Please see below. PHYSICAL EXAMINATION ON DISCHARGE: VITAL SIGNS: Please see below. General Exam: Positive: Alert, Cooperative, No Acute Distress Eye Exam: Positive: PERRLA, Conjunctiva & lids normal, EOMI; Negative: Sclera icteric ENT Exam: Positive: Atraumatic, Mucous membr. moist/pink, Pharynx Normal Neck Exam: Positive: Supple; Negative: JVD, thyromegaly Chest Exam: Positive: Clear to auscultation, Normal air movement, Diminished (Diminished at both the bases), Other (Crackles present on both the base); Negative: Rales, Rhonchi, Wheezing Heart Exam: Positive: Rate Normal, Regular Rhythm, Normal S1, Normal S2; Negative: Murmurs, Rubs Abdomen Exam: Positive: Normal bowel sounds, Soft; Negative: Tenderness Extremity Exam: Positive: Edema (4+ pedal edema in the right leg); Negative: Clubbing, Cyanosis Neuro Exam: Positive: Normal Speech, Strength at 5/5 X4 ext, Normal Tone Psych Exam: Positive: Memory Intact, Oriented x 3 LABORATORY DATA: Please see below. ACTIVITY: [As tolerated]. DIET: Consistent carb, 2 L fluid restriction DISCHARGE PLAN: Home DISCHARGE INSTRUCTIONS: Follow-up with vascular surgeon on 09/21/2021 Follow-up with Dr. Lindsey in 1 to 2 weeks Follow-up with PMD in 1 week DISCHARGE CONDITION: [Stable]. TIME SPENT ON DISCHARGE: 40 minutes. Vital Signs/I&Os Vital Signs Date Time Temp Pulse Resp B/P (MAP) Pulse Ox O2 Delivery O2 Flow Rate FiO2 09/20/21 09:46 18 09/20/21 09:05 Room Air 09/20/21 08:58 81 160/78 09/20/21 08:00 99.4 97 09/16/21 23:59 99.0 I&O- Last 24 Hours up to 6 AM 09/20/21 05:59 Intake Total 1030.0 ml Output Total 2125 ml Balance -1095.0 ml Laboratory Data Labs 24H Laboratory Tests 2 09/19/21 13:13: Bedside Glucose (Misc Panel) 115H 09/19/21 17:54: Bedside Glucose (Misc Panel) 92 09/19/21 20:27: Bedside Glucose (Misc Panel) 95 09/20/21 06:16: Immature Granulocyte % (Auto) 0.6, Neutrophils (%) (Auto) 61.5, Lymphocytes (%) (Auto) 25.5, Monocytes (%) (Auto) 9.6H, Eosinophils (%) (Auto) 2.4, Basophils (%) (Auto) 0.4, Neutrophils # (Auto) 3.1, Lymphocytes # (Auto) 1.3L, Monocytes # (Auto) 0.5, Eosinophils # (Auto) 0.1, Basophils # (Auto) 0.0, Nucleated Red Blood Cells % (auto) 0.0, Anion Gap 9, Glomerular Filtration Rate 18.1L, Calcium Level 7.8L, Total Bilirubin 0.7, Direct Bilirubin < 0.1, Aspartate Amino Transf (AST/SGOT) 26, Alanine Aminotransferase (ALT/SGPT) 18, Alkaline Phosphatase 82, Total Protein 4.6L, Albumin 2.0L, Albumin/Globulin Ratio 0.8L CBC/BMP Laboratory Tests 09/20/21 06:16 FSBS Laboratory Tests Test 09/19/21 13:13 09/19/21 17:54 09/19/21 20:27 Range/Units Bedside Glucose (Misc Panel) 115 92 95 70-105 MG/DL Discharge Medications Scheduled Allopurinol (Zyloprim) 100 Mg Tablet, 300 MG PO DAILY, (Reported) Amlodipine Besylate (Amlodipine Besylate) 5 Mg Tablet, 5 MG PO DAILY Apixaban (Eliquis) 5 Mg Tablet, 5 MG PO BID, (Reported) Aripiprazole (Aripiprazole) 10 Mg Tablet, 10 MG PO QHS, (Reported) Aspirin (Aspirin EC) 81 Mg Tablet.dr, 162 MG PO DAILY, (Reported) Budesonide/Formoterol (Symbicort 80-4.5 Mcg Inhaler) 6.9 Gm Hfa.aer.ad, 2 PUFF INH BID, (Reported) Bumetanide (Bumetanide) 1 Mg Tablet, 2 MG PO BID@0900,1700 Carvedilol (Carvedilol) 3.125 Mg Tablet, 3.125 MG PO BID, (Reported) Dexlansoprazole (Dexilant) 60 Mg Cap..bp, 60 MG PO DAILY, (Reported) Diphenhydramine HCl (Diphenhydramine HCl) 50 Mg Capsule, 50 MG PO TID, (Reported) Duloxetine Hcl (Duloxetine HCl) 60 Mg Capsule.dr, 60 MG PO BID, (Reported) Fremanezumab-Vfrm (Ajovy) 225 Mg/1.5 Ml Syringe, 225 MG SC QMONTH, (Reported) Hydralazine HCl (Hydralazine HCl) 25 Mg Tablet, 25 MG PO TID Insulin Degludec (Tresiba Flextouch U-200) 200 Unit/1 Ml Insuln.pen, 20 UNIT SC DAILY Insulin Lispro (Humalog Kwikpen U-200) 200 Unit/1 Ml Insuln.pen, 1 DOSE SC TID, (Reported) PER SLIDING SCALE Lactobacillus Acidophilus (Probiotic) 1 Each Capsule, 1 CAP PO QHS, (Reported) Magnesium Chloride (Mag64) 64 Mg Tabcr, 64 MG PO QHS, (Reported) Ondansetron HCl (Ondansetron HCl) 8 Mg Tablet, 8 MG PO BID, (Reported) Pregabalin (Lyrica) 300 Mg Capsule, 300 MG PO BID, (Reported) Ropinirole HCl (Ropinirole HCl) 4 Mg Tablet, 4 MG PO BID, (Reported) TAKES EVENING AND BEDTIME Spironolactone (Aldactone) 50 Mg Tablet, 50 MG PO BID@09,17 Tamsulosin HCl (Flomax) 0.4 Mg Capsule, 0.4 MG PO DAILY, (Reported) Scheduled PRN Albuterol Sulfate (Proair Hfa) 8.5 Gm Hfa.aer.ad, 2 PUFF INH Q4H PRN for SHORTNESS OF BREATH, (Reported) Cyclobenzaprine HCl (Cyclobenzaprine HCl) 10 Mg Tablet, 10 MG PO TID PRN for MUSCLE SPASMS, (Reported) Epinephrine (Epipen 2-Thomas) 0.3 Mg/0.3 Ml Inj, 0.3 MG SC PRN PRN for ALLERGIC REACTION, (Reported) Hydrocodone/Acetaminophen (Hydrocodone-Acetamin 10-325 mg) 1 Each Tablet, 1 TAB PO Q4H PRN for MODERATE/SEVERE PAIN (PS 5-10), (Reported) Allergies Coded Allergies: Latex, Natural Rubber (Verified Allergy, Severe, anaphylaxis, 09/18/20) Penicillins (Verified Allergy, Severe, anaphylaxis, CEPHALOSPORINS [place], 09/18/20) Sulfa (Sulfonamide Antibiotics) (Verified Allergy, Intermediate, hives, 09/18/20) clindamycin (Verified Allergy, Intermediate, Rash/mouth sores/BURNING OF SKIN, 09/18/20) fenofibrate (Verified Allergy, Mild, rash, 09/18/20) metformin (Verified Allergy, Mild, rash, 09/18/20) pineapple (Verified Allergy, Mild, swollen lips/mouth sores, 09/18/20) SURGICAL ANGIE (Verified Allergy, Unknown, 09/18/20) Ashwini Acevedo MD Sep 20, 2021 11:33
[2021-09-20 12:00] VITALS: BP 136/70
--- NOTE | 2021-09-20 18:20 | IPN ---
PROGRESS NOTE DATE: 09/20/2021 SUBJECTIVE: Ms. Soliz is seen this morning on her bedside. She is sitting at edge of bed and reports feeling much better. She has diuresed very well and her shortness of breath and edema has improved. She still has some edema on her right leg. She is able to use her left leg prosthesis. She denies any nausea or vomiting. OBJECTIVE: On physical examination, temperature 97 degrees Fahrenheit, heart is 72 per minute and respiratory rate 18 per minute. Blood pressure 136/70 mmHg and oxygen saturation 98% on room air. Intake and output records from yesterday showed a negative fluid balance of about 500 mL. Her weight is down to 110.3 kg. Her head is atraumatic. Neck is supple and without jugular venous distention (JVD) or thyroid enlargement. There is no oral thrush or ulcers. Heart sounds are regular and lungs sound clear with slightly diminished breath sounds at the left base. She has no wheezing. Abdomen is soft, obese and nontender. Bowel sounds are normal. Extremities without any cyanosis or clubbing. She still has 1+ edema on her right leg. She has a left below-knee amputation and is currently wearing her prosthesis. Neurologically, she is awake, alert and oriented times 3. LABORATORY DATA: Today's lab show a WBC count 5.0, hemoglobin 10.6 and hematocrit 31.6, platelets 148. Sodium 144, potassium 3.7, chloride 109, Co2 26, BUN 30 and creatinine 2.91. Glucose 82 and calcium 7.8. Total protein 4.6 and albumin 2.0. PROBLEMS: 1. Congestive heart failure, acute on chronic diastolic. Volume status has improved significantly since admission with more than 12 kg weight loss. She is breathing much better and able to use her leg prosthesis. Her lower extremity edema has improved significantly. She is responding to oral bumetanide reasonably well and I will recommend to discharge her with bumetanide 2 mg twice a day along with spironolactone 50 mg twice a day. She will not take metolazone any more. 2. Hypertension. Blood pressure control has also improved significantly with the diuresis and weight loss. There are several antihypertensives that have been adjusted or changed. She has not been responding to diuretics as an outpatient. Now with intravenous diuretic use and lost of fluid, her blood pressure has become much easier to control with current medication that she is taking in the hospital and I would recommend to continue with the same as an outpatient. She will follow up in my office for further adjustment in her medications if needed. 3. Acute on chronic kidney disease. Her kidney function has been without any significant private branch exchange installer the last five days. She does not have any uremic symptoms. She clearly understands the potential need for dialysis in the near future. She has an appointment with vascular surgery tomorrow for possible AV fistula creation. I have advised her to keep her appointment and get the AV fistula surgery done as soon as possible. 4. Anemia. Her anemia is mild and stable and does not need any urgent intervention. This will be followed up as an outpatient. DISPOSITION: The patient can be discharged to home today and follow up in my clinic in one week.
== END 2021-09-20 13:45 | disposition home or self-care (01) | DRG 291 ==
LOC: EEVIPCON 16:40 → M PCU 16:40
PROVIDERS: ADMIT Internal Medicine; ATTEND Internal Medicine Nephrology
PROC: 30233J1 Transfusion of Nonautologous Serum Albumin into Peripheral Vein, Percutaneous Approach (ICD-10-PCS; principal; 2021-09-16)
DX: I13.0 Hypertensive heart and chronic kidney disease with heart failure and stage 1 through stage 4 chronic kidney disease, or unspecified chronic kidney disease (principal); I50.33 Acute on chronic diastolic (congestive) heart failure; N18.4 Chronic kidney disease, stage 4 (severe); N04.9 Nephrotic syndrome with unspecified morphologic changes; D68.2 Hereditary deficiency of other clotting factors; D80.1 Nonfamilial hypogammaglobulinemia; E87.70 Fluid overload, unspecified; E11.22 Type 2 diabetes mellitus with diabetic chronic kidney disease; E11.43 Type 2 diabetes mellitus with diabetic autonomic (poly)neuropathy; K31.84 Gastroparesis; E11.319 Type 2 diabetes mellitus with unspecified diabetic retinopathy without macular edema; D63.8 Anemia in other chronic diseases classified elsewhere; G43.909 Migraine, unspecified, not intractable, without status migrainosus; J45.909 Unspecified asthma, uncomplicated; F31.9 Bipolar disorder, unspecified; M48.061 Spinal stenosis, lumbar region without neurogenic claudication; L40.9 Psoriasis, unspecified; G25.81 Restless legs syndrome; K44.9 Diaphragmatic hernia without obstruction or gangrene; K76.0 Fatty (change of) liver, not elsewhere classified; E66.01 Morbid (severe) obesity due to excess calories; Z89.512 Acquired absence of left leg below knee; Z89.431 Acquired absence of right foot; Z90.49 Acquired absence of other specified parts of digestive tract; F17.200 Nicotine dependence, unspecified, uncomplicated; Z79.01 Long term (current) use of anticoagulants; Z79.4 Long term (current) use of insulin; Z79.82 Long term (current) use of aspirin; Z79.899 Other long term (current) drug therapy; Z91.040 Latex allergy status; Z88.0 Allergy status to penicillin; Z88.1 Allergy status to other antibiotic agents; Z88.2 Allergy status to sulfonamides; Z88.8 Allergy status to other drugs, medicaments and biological substances; Z91.018 Allergy to other foods; Z91.048 Other nonmedicinal substance allergy status; M10.9 Gout, unspecified; Z86.718 Personal history of other venous thrombosis and embolism; Z20.822 Contact with and (suspected) exposure to COVID-19; E88.09 Other disorders of plasma-protein metabolism, not elsewhere classified

== ENCOUNTER → 2021-09-22 | Outpatient (CLI) | payer OTHER ==
[~2021-09-22] MED LIST changes: +AJOV225I SC; +ALDA50TA2 PO; +ALLO300T2 PO; +ARIP1TAB PO; +BENA-8 PO; -BENA20TA8 PO; -BENA40TA5 PO; +BENA40TA84 PO; +CARV3.12 PO; +ELIQ2.5T PO; -FLUC200T2 PO; +FLUC200T4 PO; +ISOVUE-300 61% 50ML VIAL As Ordered ONE; -LEVO500T3 PO; +LEVO500T4 PO; +LIDOCAINE 1% MDV 20ML VIAL As Ordered ONE; +LISI10TA22 PO; +METO10TA5 PO; +METO5TA PO; +MIDAZOLAM INJ 2MG/2ML VIAL (J2250 PER 1MG) As Ordered ONE; -MONT10TA10 PO; +MONT10TA97 PO; -OMEP-221 PO; +OMEP40CA5 PO; +ONDA-84 PO; +SPIR100T3 PO; +TORS100T PO; +VALS1TAB67 PO; +ZYLO100T2 PO; +fentaNYL 100 MCG/2 ML INJECTION As Ordered ONE; +hydrALAZINE 20MG/ML 1ML VIAL (J0360 PER 20MG) As Ordered ONE
[2021-09-22 08:50] VITALS: BP 176/83
== END ==
LOC: M IRPRO 07:01
PROVIDERS: ATTEND Surgery Vascular Surgery
DX: N18.9 Chronic kidney disease, unspecified (principal); I87.8 Other specified disorders of veins; Z87.81 Personal history of (healed) traumatic fracture
CPT/HCPCS: 36011; 75820; C1769; C1894; J0360; J1644; Q9967

== ENCOUNTER → 2021-09-23 | Outpatient (CLI) | payer OTHER ==
[~2021-09-23] MED LIST changes: -ALLO300T2 PO; -BENA-8 PO; +BENA20TA8 PO; +BENA40TA5 PO; -BENA40TA84 PO; -ELIQ2.5T PO; +FLUC200T2 PO; -FLUC200T4 PO; -ISOVUE-300 61% 50ML VIAL As Ordered ONE; +LEVO500T3 PO; -LEVO500T4 PO; -LIDOCAINE 1% MDV 20ML VIAL As Ordered ONE; -METO10TA5 PO; -MIDAZOLAM INJ 2MG/2ML VIAL (J2250 PER 1MG) As Ordered ONE; +MONT10TA10 PO; -MONT10TA97 PO; +OMEP-221 PO; -OMEP40CA5 PO; -ONDA-84 PO; +ONDA8TAB10 PO; -fentaNYL 100 MCG/2 ML INJECTION As Ordered ONE; -hydrALAZINE 20MG/ML 1ML VIAL (J0360 PER 20MG) As Ordered ONE
== END ==
LOC: M LABSMTC 11:12
PROVIDERS: ATTEND Anesthesiology
DX: Z01.812 Encounter for preprocedural laboratory examination (principal); Z20.822 Contact with and (suspected) exposure to COVID-19

== ENCOUNTER 2021-09-25 08:28 | Day surgery (SDC) | payer OTHER ==
[~2021-09-25] VITALS: Ht 177.8 cm; Wt 112.9 kg
[~2021-09-25 08:28] MED LIST changes: +LIDOCAINE 1% MDV 20ML VIAL SQ PRN; +NS 1,000 ML IV ONE; +VANCOMYCIN HCL 1,000 MG, VIAL MATE ADAPTER 1 EACH in NS 250 ML IV ONE
[2021-09-25] MEDS ORDERED: LIDOCAINE 2% 100MG/5ML SDV (FOR ANES.) As Ordered ONE (08:59)
[2021-09-25] MEDS ORDERED: propofoL 200 MG/20 ML VIAL As Ordered ONE (08:59)
[2021-09-25] MEDS ORDERED: fentaNYL 100 MCG/2 ML INJECTION (J3010) As Ordered ONE ×2 (08:59→15:02)
[2021-09-25] MEDS ORDERED: MIDAZOLAM INJ 2MG/2ML VIAL (J2250 PER 1MG) As Ordered ONE (08:59)
[2021-09-25 09:31] LABS: HEMATOCRIT 39.2 % (36.0-47.0); HEMOGLOBIN 13.1 g/dl (12.0-15.5); MEAN CORPUSCULAR HEMOGLOBIN 29.2 pg (27.0-33.0); MEAN CORPUSCULAR HGB CONC 33.4 g/dl (32.0-36.5); MEAN CORPUSCULAR VOLUME 87.5 fl (80.0-96.0); PLATELET COUNT, AUTOMATED 153 10^3/uL (150-450); RED BLOOD COUNT 4.48 10^6/uL (4.00-5.40); WHITE BLOOD COUNT 7.9 10^3/uL (4.0-10.0)
[2021-09-25 09:58] LABS: CALCIUM LEVEL 8.3 MG/DL (8.5-10.1); CREATININE FOR GFR 2.48 MG/DL (0.55-1.30); GLOMERULAR FILTRATION RATE 21.7 (>51); POTASSIUM SERUM 5.3 MEQ/L (3.5-5.1)
[2021-09-25] MEDS ORDERED: LIDOCAINE 1% MDV 20ML VIAL As Ordered ONE (10:15)
[2021-09-25] MEDS ORDERED: BUPIVACAINE/EPIN 0.5% 30 ML VIAL As Ordered ONE (10:15)
[2021-09-25] MEDS ORDERED: HEPARIN SOD (PORCINE) 5000UNITS/ML 1ML VIAL/SYRINGE As Ordered ONE ×2 (10:16→12:57)
[2021-09-25] MEDS ORDERED: DEXTROSE 50% 50 ML SYRINGE As Ordered ONE (10:24)
[2021-09-25] MEDS ORDERED: METOCLOPRAMIDE INJ 10MG/2ML VIAL (J2765 PER 1) As Ordered ONE (10:55)
[2021-09-25] MEDS ORDERED: ONDANSETRON 4MG/2ML VIAL As Ordered ONE ×2 (10:55→14:21)
[2021-09-25] MEDS ORDERED: ROCURONIUM BROMIDE 50 MG/5 ML VIAL As Ordered ONE (11:00)
[2021-09-25] MEDS ORDERED: ACETAMINOPHEN 1000MG 100ML IV BTL (OFIRMEV) (J0131 PER 10MG) As Ordered ONE (11:21)
[2021-09-25] MEDS ORDERED: BUPIVACAINE HCL 0.5% 30 ML VIAL As Ordered ONE ×2 (11:28→12:40)
[2021-09-25] MEDS ORDERED: DESFLURANE 240 ML INHALANT As Ordered ONE (11:34)
[2021-09-25] MEDS ORDERED: CONRAY-60 60% 50ML VIAL (Q9961) As Ordered ONE (11:46)
[2021-09-25] MEDS ORDERED: ePHEDrine SULFATE 25 MG/5 ML(5MG/ML) SYRINGE As Ordered ONE ×2 (12:05→13:07)
[2021-09-25] MEDS ORDERED: SUGAMMADEX SODIUM 500 MG/5 ML VIAL (BRIDION) As Ordered ONE (12:06)
[2021-09-25] MEDS ORDERED: THROMBIN SOLN 5,000 UNITS VIAL As Ordered ONE (13:06)
[2021-09-25] MEDS: fentaNYL 100 MCG/2 ML INJECTION (J3010) IV PRN ×3 (15:05→15:55)
[2021-09-25] MEDS ORDERED: ACETAMINOPHEN TAB 650MG DOSE (2X325MG) PO PRN (15:10)
[2021-09-25] MEDS ORDERED: ONDANSETRON 4MG/2ML VIAL IV PRN (15:10)
[2021-09-25] MEDS ORDERED: HumaLOG INSULIN (NovoLOG) PER UNIT SC ONE (15:10)
[2021-09-25] MEDS ORDERED: DEXTROSE 50% 50 ML SYRINGE IV ONE ×2 (15:10→16:25)
--- NOTE | 2021-09-25 15:53 | ROOPDOC ---
[facility] Report Of Operation Report of Operation DATE OF PROCEDURE: 09/25/21 PREPROCEDURE DIAGNOSES: End-stage renal disease, requiring hemodialysis access, right subclavian vein stenosis POSTPROCEDURE DIAGNOSES: End-stage renal disease, requiring hemodialysis access, right subclavian vein stenosis PROCEDURE PERFORMED: 1. Right upper extremity venogram, SVC gram, balloon angioplasty of the right subclavian vein stenosis, using 14 x 40 mm [place] balloon. 2. Insertion of a right distal brachial artery to axillary vein AV graft. A 7 x 34 mm Artegraft was used. SURGEON: Priscilla Salas MD CAD INTERN: civil laboratory technician: Terrie ANESTHESIA: General anesthesia, endotracheal tube, Dr. Villagomez ESTIMATED BLOOD LOSS: Approximately 150 mL. IV fluids: 700 mL of crystalloids Systemic heparin: 2000 units of heparin Preoperative antibiotics: 1 g vancomycin Contrast: 20 mL dye COMPLICATIONS: None FINDINGS: Patent right brachial artery. Patent right axillary vein. Severe focal 90% stenosis of the right central subclavian vein, at its junction with the innominate vein with successful balloon angioplasty of the stenosis, and complete resolution of the stenosis. Good bruit in the AV graft, after insertion. The right hand was cool, however with good capillary refill, dopplerable distal radial artery signal, and no numbness or pain in the right hand and right upper extremity. SPECIMENS REMOVED:None PROCEDURE NOTE: Indication for the procedure: The patient is a 51-year-old lady, with diabetes, end-stage renal disease, and history of recurrent congestive heart failure, who requires hemodialysis in the near future, and hemodialysis access. She had previous multiple central lines and portacatheters in bilateral jugular and subclavian veins. She is right-handed. Venogram of bilateral upper extremities revealed long segment occlusion of the left axillary and subclavian veins. The right axillary vein and subclavian vein were patent, with a 90% focal stenosis in the right subclavian vein. Bilateral upper extremity arteries were patent, without stenosis. She has history of factor V [place] deficiency, and was on Eliquis, which was held today morning. Informed consent was obtained from the patient, after explaining the risks and complications of the procedure, which include but are not limited to bleeding, infection, cardiorespiratory complications, recurrent venous stenosis requiring additional interventions, thrombosis of the graft-especially with ongoing smoking, ischemic complications to the arm including steal syndrome, nerve injuries etc. The patient understood and agreed to the procedure DESCRIPTION OF PROCEDURE: The patient was correctly identified and placed supine on the operating room table. General anesthesia with endotracheal tube was administered. The right upper extremity and right side of the chest was cleaned and draped in a sterile fashion. She received 1 g intravenous vancomycin as preoperative antibiotic prophylaxis, as she is allergic to multiple medications including penicillins. A timeout was performed. Initially an incision was made in the right axillary region, inferior to the lat eral border of the pectoralis major muscle. The incision was deepened through the skin and subcutaneous tissue. The fascia was incised. The axillary vein and the central brachial veins were identified and Vesseloops were placed around them. The lymphatics were clipped with hemoclips. The axillary vein was then accessed, with a 21-gauge micropuncture needle, and exchanged to a 4 Romanian micro sheath. The sheath was then exchanged to an 8 Romanian sheath, over a Insightsson wire. Venogram of the right axillary, subclavian and central veins was performed. The right subclavian vein stenosis was defined and balloon angioplasty was performed with a 14 x 40 mm [place] balloon. Post angioplasty imaging revealed brisk venous flow, with resolution of the stenosis. The wire and balloon were removed. The sheath was left in place. Another incision was made, on the right distal brachial artery, just above the elbow. The incision was deepened through the skin and subcutaneous tissue. The fascia was incised. The distal brachial artery was identified and Vesseloops were placed around it. It was patent and free of disease. A lateral curvilinea r subcutaneous tunnel was then formed, between the axillary and the brachial artery incisions. A Counterincision was required in the right upper lateral arm, to facilitate tunneling of the graft using the metallic tunnelers. The subcutaneous tunnel was infiltrated with 1% lidocaine and half percent Marcaine prior to tunneling the Artegraft. The Artegraft was appropriately prepped, as per the town planner's instructions, and tunneled, between the 2 incisions, using the metallic tunneler. Care was taken not to twist or kink the graft during tunneling. The patient then received 2000 units of systemic heparin. Proximal and distal control of the brachial artery was obtained, with Vesseloops. A longitudinal arteriotomy was made on the brachial artery and e xtended with a Patel scissor. Care was taken, to keep the brachial arteriotomy small (to about 5 mm) to prevent steal syndrome. The arterial end of the Artegraft was then narrowed, to about 5 mm, to match the arteriotomy, by placing Prolene sutures. An end-to-side anastomosis was performed, between the Artegraft and the brachial arteriotomy, using 6-0 Prolene continuous suture. Before completion of the anastomosis, the artery was flushed and back bled, and the anastomosis was completed. The Vesseloops on the artery were released, to allow flow into the distal brachial artery. The flow in the Artegraft was checked-and was noted to be pulsatile and good. The graft was then clamped after the arterial anastomosis. The remainder of the graft was flushed with heparinized saline. The 8 Romanian sheath was removed, from the axillary vein, and a longitudinal venotomy was performed. The axillary end of the Artegraft was pulled to appropriate length and an end-to-side anastomosis was performed, between the Artegraft and the venotomy, using 6-0 Prolene continuous suture. Before completion of the anastomosis, the graft was flushed, and anastomosis was completed. All clamps and Vesseloops were removed, to allow flow into the graft. There was good flow in the graft. There were also good biphasic Doppler signals, in the right distal brachial artery, distal to the arterial anastomosis and in the right distal radial artery. Hemostasis was achieved and confirmed at all sites. All counts were correct. The incisions were anesthetized with half percent Marcaine. The incisions were closed in layers, using 2-0 Vicryl for the fascia and the subcutaneous tissue, and 4-0 Monocryl subcuticular sutures. Steri-Strips followed by dry sterile dressings were placed. The patient tolerated the procedure well and was hemodynamically stable throughout. She was extubated and was transferred to the postop recovery room. The procedure and findings were conveyed to her Jayden at [id number] Plan: Graft may be accessed for hemodialysis, in 3 to 4 weeks Priscilla Salas MD Sep 25, 2021 15:53
[2021-09-25] MEDS ORDERED: NS 1,000 ML IV SCH (16:25)
[2021-09-25] MEDS ORDERED: oxyCODONE 5MG TAB PO PRN (16:30)
[2021-09-25 17:25] VITALS: BP 176/86
== END 2021-09-25 17:50 | disposition home or self-care (01) ==
LOC: M SDC 08:28
PROVIDERS: ATTEND Surgery Vascular Surgery
DX: N18.6 End stage renal disease (principal); I70.8 Atherosclerosis of other arteries; D68.2 Hereditary deficiency of other clotting factors; E11.22 Type 2 diabetes mellitus with diabetic chronic kidney disease; E11.40 Type 2 diabetes mellitus with diabetic neuropathy, unspecified; E11.59 Type 2 diabetes mellitus with other circulatory complications; E66.01 Morbid (severe) obesity due to excess calories; F17.210 Nicotine dependence, cigarettes, uncomplicated; F31.9 Bipolar disorder, unspecified; F41.9 Anxiety disorder, unspecified; I13.2 Hypertensive heart and chronic kidney disease with heart failure and with stage 5 chronic kidney disease, or end stage renal disease; I25.10 Atherosclerotic heart disease of native coronary artery without angina pectoris; I25.2 Old myocardial infarction; I49.9 Cardiac arrhythmia, unspecified; I50.9 Heart failure, unspecified; I87.1 Compression of vein; I87.2 Venous insufficiency (chronic) (peripheral); G47.33 Obstructive sleep apnea (adult) (pediatric); J44.9 Chronic obstructive pulmonary disease, unspecified; K44.9 Diaphragmatic hernia without obstruction or gangrene; Z79.01 Long term (current) use of anticoagulants; Z79.4 Long term (current) use of insulin; Z79.82 Long term (current) use of aspirin; Z79.899 Other long term (current) drug therapy; Z86.718 Personal history of other venous thrombosis and embolism; Z88.0 Allergy status to penicillin; Z88.2 Allergy status to sulfonamides; Z88.8 Allergy status to other drugs, medicaments and biological substances; Z90.710 Acquired absence of both cervix and uterus; Z91.018 Allergy to other foods; Z91.040 Latex allergy status; Z91.048 Other nonmedicinal substance allergy status; Z96.1 Presence of intraocular lens
CPT/HCPCS: 36415; 36830; 37246; 76000; 80048; 85027; 86850; 86900; 86901; C1725; C1768; C1894; J0131; J1644; J2250; J2405; J2765; J3010; J3370; Q9961

== ENCOUNTER 2021-10-03 21:25 | Inpatient (IN) | payer OTHER ==
[~2021-10-03] VITALS: Ht 177.8 cm; Wt 106.1 kg
[~2021-10-03 21:25] MED LIST changes: -LIDOCAINE 1% MDV 20ML VIAL SQ PRN; -NS 1,000 ML IV ONE; -VANCOMYCIN HCL 1,000 MG, VIAL MATE ADAPTER 1 EACH in NS 250 ML IV ONE
[2021-10-03] MEDS ORDERED: METO10TA5 PO (21:53)
[2021-10-03 22:24] LABS: ABG BASE EXCESS -0.9 (-2.0-2.0); ABG HCO3 24.4 MEQ/L (22.0-26.0); ABG O2 SATURATION 92.8 % (95.0-99.0); ABG PARTIAL PRESSURE O2 66.8 mmHg (75.0-100.0); ABG STANDARD HCO3 23.6 MEQ/L (22.0-26.0); ABG TOTAL CO2 25.7 MEQ/L (22.0-29.0); ABG pH (ARTERIAL) 7.371 UNITS (7.350-7.450)
[2021-10-03] MEDS ORDERED: FUROSEMIDE 100MG/10ML VIAL (J1940) IV ONE (22:30)
[2021-10-03 23:08] LABS: RSV AMPLIFICATION NEGATIVE (NEGATIVE)
[2021-10-03 23:20] LABS: BASO % 0.5 % (0.0-1.0); EOS # 0.3 10^3/uL (0.0-0.5); EOS % 4.7 % (0.0-3.0); HEMATOCRIT 30.6 % (36.0-47.0); HEMOGLOBIN 9.9 g/dl (12.0-15.5); LYMPH # 1.2 10^3/uL (1.5-5.0); LYMPH % 17.4 % (24.0-44.0); MEAN CORPUSCULAR HEMOGLOBIN 28.4 pg (27.0-33.0); MEAN CORPUSCULAR HGB CONC 32.4 g/dl (32.0-36.5); MEAN CORPUSCULAR VOLUME 87.9 fl (80.0-96.0); MONO # 0.5 10^3/uL (0.0-0.8); NEUTROPHILS # 4.6 10^3/uL (1.5-8.5); NEUTROPHILS % 69.8 % (36.0-66.0); PLATELET COUNT, AUTOMATED 260 10^3/uL (150-450); RED BLOOD COUNT 3.48 10^6/uL (4.00-5.40); WHITE BLOOD COUNT 6.6 10^3/uL (4.0-10.0)
[2021-10-03 23:40] LABS: INR 1.01; PARTIAL THROMBOPLASTIN TIME 27.1 SECONDS (25.9-37.0); PROTHROMBIN TIME 13.7 SECONDS (12.7-14.5)
[2021-10-03 23:45] LABS: ALBUMIN 1.9 GM/DL (3.2-5.2); ALT/SGPT 20 U/L (12-78); BILIRUBIN,DIRECT < 0.1 MG/DL (0.0-0.2); BILIRUBIN,TOTAL 0.3 MG/DL (0.2-1.0); BLOOD UREA NITROGEN 37 MG/DL (7-18); CALCIUM LEVEL 8.3 MG/DL (8.5-10.1); CARBON DIOXIDE LEVEL 25 MEQ/L (21-32); CHLORIDE LEVEL 109 MEQ/L (98-107); CREATININE FOR GFR 2.48 MG/DL (0.55-1.30); GLOMERULAR FILTRATION RATE 21.7 (>51); GLUCOSE, FASTING 152 MG/DL (70-100); NT-PRO BNP 20004 PG/ML (<125); POTASSIUM SERUM 5.5 MEQ/L (3.5-5.1); SODIUM LEVEL 143 MEQ/L (136-145); TOTAL PROTEIN 5.2 GM/DL (6.4-8.2)
[2021-10-04] MEDS ORDERED: PERCOCET 5MG/325MG TAB PO ONE (01:10)
[2021-10-04] MEDS ORDERED: ALLO300T2 PO (01:51)
[2021-10-04] MEDS ORDERED: ACETAMINOPHEN TAB 650MG DOSE (2X325MG) PO PRN (02:05)
[2021-10-04] MEDS ORDERED: BUME1TAB3 PO (02:38)
[2021-10-04] MEDS ORDERED: HOME MED LIST COMPLETE! XX SCH (02:40)
[2021-10-04 05:00] VITALS: BP 177/91
[2021-10-04] MEDS ORDERED: CYCLOBENZAPRINE 10MG TABLET PO PRN (07:40)
[2021-10-04] MEDS: SYMBICORT 80/4.5MCG INHALER 6GM INH SCH ×2 (08:18→20:48)
[2021-10-04] MEDS: OMEPRAZOLE 20 MG CAP PO SCH (08:27)
[2021-10-04] MEDS: FUROSEMIDE 100MG/10ML VIAL (J1940) IV SCH ×2 (08:27→16:32)
[2021-10-04] MEDS: DULoxetine 30MG CAPSULE (CYMBALTA) PO SCH ×2 (08:28→21:27)
[2021-10-04] MEDS: PREGABALIN 100 MG CAP (LYRICA) PO SCH ×2 (08:28→21:27)
[2021-10-04] MEDS: CARVedilol 3.125 MG TAB PO SCH ×2 (08:28→21:26)
[2021-10-04] MEDS: APIXABAN 5 MG TAB (ELIQUIS) PO SCH ×2 (08:28→21:27)
[2021-10-04] MEDS: amLODIPine 5 MG TAB PO SCH (08:28)
[2021-10-04] MEDS: metOLazone 5 MG TAB PO SCH ×2 (08:29→16:35)
[2021-10-04] MEDS: SPIRONOLACTONE 50 MG TAB PO SCH ×2 (08:29→16:34)
[2021-10-04] MEDS: ASPIRIN 81MG ENTERIC TABLET PO SCH (08:29)
[2021-10-04] MEDS: LEVEMIR (INSULIN DETEMIR) 1 UNITS/0.01ML SC SCH (08:30)
[2021-10-04] MEDS: **hydrALAZINE HCL** 25 MG TAB PO SCH ×3 (08:30→21:26)
[2021-10-04] MEDS: NORCO, ANEXSIA 5/325MG TABLET (HYDROcodone/ACETAMINOPHEN) PO PRN ×3 (08:50→21:48)
[2021-10-04 09:11] LABS: BASO % 0.3 % (0.0-1.0); EOS # 0.3 10^3/uL (0.0-0.5); EOS % 4.3 % (0.0-3.0); HEMATOCRIT 28.2 % (36.0-47.0); HEMOGLOBIN 9.4 g/dl (12.0-15.5); LYMPH # 1.6 10^3/uL (1.5-5.0); MEAN CORPUSCULAR HGB CONC 33.3 g/dl (32.0-36.5); MONO # 0.6 10^3/uL (0.0-0.8); MONO % 9.4 % (2.0-8.0); NEUTROPHILS % 61.4 % (36.0-66.0); PLATELET COUNT, AUTOMATED 245 10^3/uL (150-450); RED BLOOD COUNT 3.24 10^6/uL (4.00-5.40); WHITE BLOOD COUNT 6.5 10^3/uL (4.0-10.0)
[2021-10-04 09:43] LABS: ALBUMIN 1.8 GM/DL (3.2-5.2); BILIRUBIN,TOTAL 0.2 MG/DL (0.2-1.0); CALCIUM LEVEL 8.5 MG/DL (8.5-10.1); CREATININE FOR GFR 2.47 MG/DL (0.55-1.30); GLOMERULAR FILTRATION RATE 21.8 (>51); POTASSIUM SERUM 5.1 MEQ/L (3.5-5.1); TOTAL PROTEIN 5.4 GM/DL (6.4-8.2)
[2021-10-04] MEDS ORDERED: DEXTROSE 50% 50 ML SYRINGE IV PRN (09:50)
[2021-10-04] MEDS ORDERED: GLUCAGON INJ 1MG VIAL SC PRN (09:50)
[2021-10-04] MEDS ORDERED: GLUCOSE 4GM CHEW TABLET PO PRN (09:50)
[2021-10-04] MEDS: BUMETANIDE 1 MG TAB PO SCH ×2 (10:02→16:34)
[2021-10-04] MEDS: ONDANSETRON 4MG/2ML VIAL IV PRN ×2 (10:02→21:42)
[2021-10-04] MEDS: HumaLOG INSULIN (NovoLOG) PER UNIT SC SCH ×3 (11:27→21:00)
[2021-10-04 14:00] VITALS: BP 143/73
[2021-10-04] MEDS: rOPINIRole 2MG TAB PO SCH ×2 (16:36→21:27)
[2021-10-04 19:00] VITALS: BP 149/79
[2021-10-04] MEDS: ARIPiprazole 10 MG TAB PO SCH (21:27)
[2021-10-04] MEDS: allopurinoL 300 MG TAB PO SCH (21:27)
[2021-10-05] MEDS: FUROSEMIDE 100MG/10ML VIAL (J1940) IV SCH ×4 (00:03→22:02)
[2021-10-05] MEDS: NORCO, ANEXSIA 5/325MG TABLET (HYDROcodone/ACETAMINOPHEN) PO PRN ×3 (05:53→21:36)
[2021-10-05 06:00] VITALS: BP 172/88
[2021-10-05 06:36] LABS: BASO % 0.3 % (0.0-1.0); EOS # 0.3 10^3/uL (0.0-0.5); EOS % 3.9 % (0.0-3.0); HEMATOCRIT 27.2 % (36.0-47.0); LYMPH # 1.8 10^3/uL (1.5-5.0); LYMPH % 26.4 % (24.0-44.0); MEAN CORPUSCULAR HGB CONC 33.1 g/dl (32.0-36.5); MEAN CORPUSCULAR VOLUME 87.7 fl (80.0-96.0); MONO # 0.6 10^3/uL (0.0-0.8); MONO % 8.3 % (2.0-8.0); NEUTROPHILS # 4.2 10^3/uL (1.5-8.5); NEUTROPHILS % 60.2 % (36.0-66.0); PLATELET COUNT, AUTOMATED 248 10^3/uL (150-450); WHITE BLOOD COUNT 6.9 10^3/uL (4.0-10.0)
[2021-10-05] MEDS: SYMBICORT 80/4.5MCG INHALER 6GM INH SCH ×2 (07:20→20:00)
[2021-10-05] MEDS: HumaLOG INSULIN (NovoLOG) PER UNIT SC SCH ×4 (07:30→21:00)
[2021-10-05 07:48] LABS: CALCIUM LEVEL 8.1 MG/DL (8.5-10.1); CREATININE FOR GFR 2.61 MG/DL (0.55-1.30); GLOMERULAR FILTRATION RATE 20.5 (>51); POTASSIUM SERUM 4.9 MEQ/L (3.5-5.1)
[2021-10-05] MEDS: amLODIPine 5 MG TAB PO SCH (08:25)
[2021-10-05] MEDS: DULoxetine 30MG CAPSULE (CYMBALTA) PO SCH ×2 (08:26→21:36)
[2021-10-05] MEDS: OMEPRAZOLE 20 MG CAP PO SCH (08:26)
[2021-10-05] MEDS: APIXABAN 5 MG TAB (ELIQUIS) PO SCH (08:26)
[2021-10-05] MEDS: CARVedilol 3.125 MG TAB PO SCH ×2 (08:26→21:37)
[2021-10-05] MEDS: **hydrALAZINE HCL** 25 MG TAB PO SCH ×3 (08:26→21:37)
[2021-10-05] MEDS: SPIRONOLACTONE 50 MG TAB PO SCH ×2 (08:27→17:46)
[2021-10-05] MEDS: metOLazone 5 MG TAB PO SCH ×2 (08:27→17:46)
[2021-10-05] MEDS: ASPIRIN 81MG ENTERIC TABLET PO SCH (08:28)
[2021-10-05] MEDS: BUMETANIDE 1 MG TAB PO SCH (08:28)
[2021-10-05] MEDS: PREGABALIN 100 MG CAP (LYRICA) PO SCH ×2 (08:28→21:37)
[2021-10-05] MEDS: LEVEMIR (INSULIN DETEMIR) 1 UNITS/0.01ML SC SCH (08:30)
[2021-10-05] MEDS: ONDANSETRON 4MG/2ML VIAL IV PRN ×2 (08:39→22:02)
[2021-10-05 14:00] VITALS: BP 147/79
[2021-10-05] MEDS: rOPINIRole 2MG TAB PO SCH ×2 (15:55→21:38)
[2021-10-05] MEDS ORDERED: HEPARIN SOD (PORCINE) 5000UNITS/ML 1ML VIAL/SYRINGE IV PRN (21:00)
[2021-10-05] MEDS: ARIPiprazole 10 MG TAB PO SCH (21:36)
[2021-10-05] MEDS: allopurinoL 300 MG TAB PO SCH (21:37)
[2021-10-05 22:00] VITALS: BP 154/82
[2021-10-05] MEDS: HEPARIN DRIP 25,000 UNITS in IV 1 EA IV SCH (22:14)
[2021-10-06 04:15] LABS: BASO % 0.6 % (0.0-1.0); EOS # 0.3 10^3/uL (0.0-0.5); EOS % 4.4 % (0.0-3.0); HEMATOCRIT 29.1 % (36.0-47.0); HEMOGLOBIN 9.5 g/dl (12.0-15.5); LYMPH # 2.3 10^3/uL (1.5-5.0); LYMPH % 31.9 % (24.0-44.0); MEAN CORPUSCULAR HEMOGLOBIN 29.3 pg (27.0-33.0); MEAN CORPUSCULAR HGB CONC 32.6 g/dl (32.0-36.5); MEAN CORPUSCULAR VOLUME 89.8 fl (80.0-96.0); MONO # 0.5 10^3/uL (0.0-0.8); MONO % 7.1 % (2.0-8.0); NEUTROPHILS # 3.9 10^3/uL (1.5-8.5); NEUTROPHILS % 54.9 % (36.0-66.0); PLATELET COUNT, AUTOMATED 247 10^3/uL (150-450); RED BLOOD COUNT 3.24 10^6/uL (4.00-5.40); WHITE BLOOD COUNT 7.1 10^3/uL (4.0-10.0)
[2021-10-06] MEDS: FUROSEMIDE 100MG/10ML VIAL (J1940) IV SCH ×4 (04:16→21:45)
[2021-10-06 04:35] LABS: CALCIUM LEVEL 8.3 MG/DL (8.5-10.1); CREATININE FOR GFR 2.77 MG/DL (0.55-1.30); GLOMERULAR FILTRATION RATE 19.1 (>51); MAGNESIUM LEVEL 1.8 MG/DL (1.8-2.4); POTASSIUM SERUM 4.8 MEQ/L (3.5-5.1)
[2021-10-06 06:00] VITALS: BP 166/55
[2021-10-06] MEDS: HumaLOG INSULIN (NovoLOG) PER UNIT SC SCH ×4 (07:30→21:00)
[2021-10-06] MEDS: SYMBICORT 80/4.5MCG INHALER 6GM INH SCH ×2 (08:24→20:02)
[2021-10-06] MEDS: LEVEMIR (INSULIN DETEMIR) 1 UNITS/0.01ML SC SCH (09:00)
[2021-10-06] MEDS: NORCO, ANEXSIA 5/325MG TABLET (HYDROcodone/ACETAMINOPHEN) PO PRN ×3 (09:40→22:06)
[2021-10-06] MEDS: DULoxetine 30MG CAPSULE (CYMBALTA) PO SCH ×2 (09:40→21:37)
[2021-10-06] MEDS: PREGABALIN 100 MG CAP (LYRICA) PO SCH ×2 (09:41→21:36)
[2021-10-06] MEDS: SPIRONOLACTONE 50 MG TAB PO SCH ×2 (09:41→17:21)
[2021-10-06] MEDS: metOLazone 5 MG TAB PO SCH ×2 (09:41→17:21)
[2021-10-06] MEDS: amLODIPine 5 MG TAB PO SCH (09:41)
[2021-10-06] MEDS: ASPIRIN 81MG ENTERIC TABLET PO SCH (09:42)
[2021-10-06] MEDS: **hydrALAZINE HCL** 25 MG TAB PO SCH ×3 (09:42→21:37)
[2021-10-06] MEDS: OMEPRAZOLE 20 MG CAP PO SCH (09:42)
[2021-10-06] MEDS: CARVedilol 3.125 MG TAB PO SCH ×2 (09:43→21:37)
[2021-10-06] MEDS: ONDANSETRON 4MG/2ML VIAL IV PRN (09:45)
[2021-10-06] MEDS ORDERED: LEVEMIR (INSULIN DETEMIR) 1 UNITS/0.01ML SC ONE (10:50)
[2021-10-06] MEDS: ONDANSETRON 4 MG ORAL DISINTEGRATING TAB PO PRN (11:57)
[2021-10-06] MEDS: HEPARIN DRIP 25,000 UNITS in IV 1 EA IV SCH (12:51)
[2021-10-06 14:00] VITALS: BP 156/78
[2021-10-06] MEDS: rOPINIRole 2MG TAB PO SCH ×2 (15:16→21:36)
[2021-10-06 20:07] LABS: INR 1.04
[2021-10-06] MEDS: ARIPiprazole 10 MG TAB PO SCH (21:35)
[2021-10-06] MEDS: allopurinoL 300 MG TAB PO SCH (21:37)
[2021-10-06 22:00] VITALS: BP 163/75
[2021-10-07] MEDS: FUROSEMIDE 100MG/10ML VIAL (J1940) IV SCH ×4 (04:28→21:50)
[2021-10-07 06:00] VITALS: BP 162/87
[2021-10-07 06:00] LABS: BASO % 0.3 % (0.0-1.0); EOS # 0.3 10^3/uL (0.0-0.5); EOS % 3.5 % (0.0-3.0); HEMATOCRIT 24.9 % (36.0-47.0); HEMOGLOBIN 8.2 g/dl (12.0-15.5); LYMPH # 2.4 10^3/uL (1.5-5.0); LYMPH % 32.2 % (24.0-44.0); MEAN CORPUSCULAR HEMOGLOBIN 29.1 pg (27.0-33.0); MEAN CORPUSCULAR HGB CONC 32.9 g/dl (32.0-36.5); MEAN CORPUSCULAR VOLUME 88.3 fl (80.0-96.0); MONO # 0.6 10^3/uL (0.0-0.8); NEUTROPHILS # 4.1 10^3/uL (1.5-8.5); NEUTROPHILS % 55.2 % (36.0-66.0); PLATELET COUNT, AUTOMATED 260 10^3/uL (150-450); RED BLOOD COUNT 2.82 10^6/uL (4.00-5.40); WHITE BLOOD COUNT 7.4 10^3/uL (4.0-10.0)
[2021-10-07] MEDS: HEPARIN DRIP 25,000 UNITS in IV 1 EA IV SCH (07:04)
[2021-10-07] MEDS: HumaLOG INSULIN (NovoLOG) PER UNIT SC SCH ×4 (07:29→21:00)
[2021-10-07] MEDS: SYMBICORT 80/4.5MCG INHALER 6GM INH SCH ×2 (07:50→20:26)
[2021-10-07] MEDS ORDERED: LEVEMIR (INSULIN DETEMIR) 1 UNITS/0.01ML SC ONE (08:30)
[2021-10-07 08:33] LABS: CALCIUM LEVEL 8.1 MG/DL (8.5-10.1); CREATININE FOR GFR 3.07 MG/DL (0.55-1.30); MAGNESIUM LEVEL 1.9 MG/DL (1.8-2.4); POTASSIUM SERUM 4.6 MEQ/L (3.5-5.1)
[2021-10-07] MEDS: CARVedilol 3.125 MG TAB PO SCH ×2 (08:34→21:52)
[2021-10-07] MEDS: OMEPRAZOLE 20 MG CAP PO SCH (09:00)
[2021-10-07] MEDS: amLODIPine 5 MG TAB PO SCH (09:00)
[2021-10-07] MEDS: metOLazone 5 MG TAB PO SCH ×2 (09:00→18:08)
[2021-10-07] MEDS: **hydrALAZINE HCL** 25 MG TAB PO SCH ×3 (09:00→21:51)
[2021-10-07] MEDS: SPIRONOLACTONE 50 MG TAB PO SCH ×2 (09:00→18:07)
[2021-10-07] MEDS: DULoxetine 30MG CAPSULE (CYMBALTA) PO SCH ×2 (09:00→21:51)
[2021-10-07] MEDS: PREGABALIN 100 MG CAP (LYRICA) PO SCH ×2 (10:14→21:50)
[2021-10-07] MEDS: ASPIRIN 81MG ENTERIC TABLET PO SCH (10:14)
[2021-10-07] MEDS ORDERED: CIPROFLOXACIN/D5W 400 MG/200 ML BAG (J0744) As Ordered ONE (13:52)
[2021-10-07] MEDS ORDERED: HEPARIN SOD (PORCINE) 5000UNITS/ML 1ML VIAL/SYRINGE As Ordered ONE (13:54)
[2021-10-07] MEDS ORDERED: propofoL 200 MG/20 ML VIAL As Ordered ONE (14:07)
[2021-10-07] MEDS ORDERED: LIDOCAINE 2% 100MG/5ML SDV (FOR ANES.) As Ordered ONE (14:07)
[2021-10-07] MEDS ORDERED: ONDANSETRON 4MG/2ML VIAL As Ordered ONE (14:07)
[2021-10-07] MEDS ORDERED: ETOMIDATE INJ 20MG/10ML VIAL As Ordered ONE (14:07)
[2021-10-07] MEDS ORDERED: dexameTHASONE 4 MG/ML 1ML VIAL (J1100 PER 1MG) As Ordered ONE (14:07)
[2021-10-07] MEDS ORDERED: fentaNYL 100 MCG/2 ML INJECTION (J3010) As Ordered ONE ×2 (14:07→16:41)
[2021-10-07] MEDS ORDERED: MIDAZOLAM INJ 2MG/2ML VIAL (J2250 PER 1MG) As Ordered ONE (14:07)
[2021-10-07] MEDS ORDERED: ePHEDrine SULFATE 25 MG/5 ML(5MG/ML) SYRINGE As Ordered ONE (14:33)
[2021-10-07] MEDS ORDERED: ISOVUE-300 61% 50ML VIAL As Ordered ONE ×2 (14:56→15:44)
[2021-10-07] MEDS ORDERED: ONDANSETRON 4MG/2ML VIAL IV PRN (17:20)
[2021-10-07] MEDS ORDERED: fentaNYL 100 MCG/2 ML INJECTION (J3010) IV PRN (17:20)
[2021-10-07] MEDS ORDERED: oxyCODONE 5MG TAB PO PRN (17:20)
[2021-10-07] MEDS ORDERED: LR 1,000 ML IV SCH (17:20)
[2021-10-07] MEDS ORDERED: HEPARIN DRIP 25,000 UNITS in IV 1 EA IV SCH (18:05)
[2021-10-07] MEDS ORDERED: HEPARIN SOD (PORCINE) 5000UNITS/ML 1ML VIAL/SYRINGE IV PRN (18:05)
[2021-10-07] MEDS: rOPINIRole 2MG TAB PO SCH ×2 (18:08→21:50)
[2021-10-07] MEDS: NORCO, ANEXSIA 5/325MG TABLET (HYDROcodone/ACETAMINOPHEN) PO PRN ×2 (19:00→22:06)
[2021-10-07] MEDS: ARIPiprazole 10 MG TAB PO SCH (21:50)
[2021-10-07] MEDS: allopurinoL 300 MG TAB PO SCH (21:52)
[2021-10-07 22:00] VITALS: BP 139/72
[2021-10-08 01:10] LABS: INR 1.06; PROTHROMBIN TIME 14.2 SECONDS (12.7-14.5)
[2021-10-08 01:11] LABS: PARTIAL THROMBOPLASTIN TIME 43.1 SECONDS (25.9-37.0)
[2021-10-08] MEDS: RAMELTEON 8 MG TAB (ROZEREM) PO PRN ×2 (01:11→23:05)
[2021-10-08] MEDS: NORCO, ANEXSIA 5/325MG TABLET (HYDROcodone/ACETAMINOPHEN) PO PRN ×6 (01:52→23:58)
[2021-10-08] MEDS: FUROSEMIDE 100MG/10ML VIAL (J1940) IV SCH (04:48)
[2021-10-08 05:55] VITALS: BP_SYST 78
[2021-10-08 06:00] VITALS: BP 162/78
[2021-10-08] MEDS: SYMBICORT 80/4.5MCG INHALER 6GM INH SCH ×2 (08:07→19:42)
[2021-10-08] MEDS ORDERED: APIXABAN 5 MG TAB (ELIQUIS) PO SCH (09:00)
[2021-10-08] MEDS: ASPIRIN 81MG ENTERIC TABLET PO SCH (09:03)
[2021-10-08] MEDS: DULoxetine 30MG CAPSULE (CYMBALTA) PO SCH ×2 (09:03→20:04)
[2021-10-08] MEDS: **hydrALAZINE HCL** 25 MG TAB PO SCH ×3 (09:04→20:07)
[2021-10-08] MEDS: PREGABALIN 100 MG CAP (LYRICA) PO SCH ×2 (09:04→20:05)
[2021-10-08] MEDS: CARVedilol 3.125 MG TAB PO SCH ×2 (09:05→20:06)
[2021-10-08] MEDS: metOLazone 5 MG TAB PO SCH ×2 (09:05→16:25)
[2021-10-08] MEDS: amLODIPine 5 MG TAB PO SCH (09:05)
[2021-10-08] MEDS: SPIRONOLACTONE 50 MG TAB PO SCH ×2 (09:06→16:28)
[2021-10-08] MEDS: OMEPRAZOLE 20 MG CAP PO SCH (09:06)
[2021-10-08] MEDS: LEVEMIR (INSULIN DETEMIR) 1 UNITS/0.01ML SC SCH (09:07)
[2021-10-08] MEDS: HumaLOG INSULIN (NovoLOG) PER UNIT SC SCH ×4 (09:08→21:00)
[2021-10-08 09:09] LABS: BASO % 0.3 % (0.0-1.0); EOS % 0.4 % (0.0-3.0); HEMATOCRIT 21.7 % (36.0-47.0); LYMPH # 2.2 10^3/uL (1.5-5.0); MEAN CORPUSCULAR HEMOGLOBIN 29.2 pg (27.0-33.0); MEAN CORPUSCULAR HGB CONC 32.3 g/dl (32.0-36.5); MEAN CORPUSCULAR VOLUME 90.4 fl (80.0-96.0); MONO # 0.6 10^3/uL (0.0-0.8); MONO % 6.6 % (2.0-8.0); NEUTROPHILS # 6.1 10^3/uL (1.5-8.5); NEUTROPHILS % 67.4 % (36.0-66.0); PLATELET COUNT, AUTOMATED 250 10^3/uL (150-450); WHITE BLOOD COUNT 9.1 10^3/uL (4.0-10.0)
[2021-10-08 09:25] LABS: CALCIUM LEVEL 8.2 MG/DL (8.5-10.1); CREATININE FOR GFR 3.37 MG/DL (0.55-1.30); GLOMERULAR FILTRATION RATE 15.3 (>51); MAGNESIUM LEVEL 1.9 MG/DL (1.8-2.4); POTASSIUM SERUM 4.6 MEQ/L (3.5-5.1)
[2021-10-08 09:43] LABS: INR 1.04
[2021-10-08 09:44] LABS: PARTIAL THROMBOPLASTIN TIME 32.5 SECONDS (25.9-37.0)
[2021-10-08] MEDS ORDERED: BUMETANIDE 1 MG TAB PO ONE (12:00)
[2021-10-08] MEDS ORDERED: APIXABAN 5 MG TAB (ELIQUIS) PO ONE (13:30)
[2021-10-08 14:00] VITALS: BP 107/54
[2021-10-08] MEDS: BUMETANIDE 1 MG TAB PO SCH (16:27)
[2021-10-08] MEDS: rOPINIRole 2MG TAB PO SCH ×2 (16:28→20:03)
[2021-10-08] MEDS: allopurinoL 300 MG TAB PO SCH (20:05)
[2021-10-08] MEDS: ARIPiprazole 10 MG TAB PO SCH (20:05)
[2021-10-08] MEDS: APIXABAN 5 MG TAB (ELIQUIS) PO SCH (20:07)
[2021-10-08 22:00] VITALS: BP 114/54
[2021-10-09] VITALS (8 sets, daily range): BP systolic 119–150; BP diastolic 57–97
[2021-10-09] MEDS: NORCO, ANEXSIA 5/325MG TABLET (HYDROcodone/ACETAMINOPHEN) PO PRN ×5 (04:12→23:48)
[2021-10-09 06:12] LABS: BASO % 0.6 % (0.0-1.0); EOS # 0.2 10^3/uL (0.0-0.5); EOS % 2.8 % (0.0-3.0); LYMPH % 29.2 % (24.0-44.0); MEAN CORPUSCULAR HEMOGLOBIN 28.6 pg (27.0-33.0); MEAN CORPUSCULAR HGB CONC 31.1 g/dl (32.0-36.5); MEAN CORPUSCULAR VOLUME 91.9 fl (80.0-96.0); MONO # 0.5 10^3/uL (0.0-0.8); MONO % 7.3 % (2.0-8.0); NEUTROPHILS % 58.6 % (36.0-66.0); PLATELET COUNT, AUTOMATED 175 10^3/uL (150-450); WHITE BLOOD COUNT 6.8 10^3/uL (4.0-10.0)
[2021-10-09 06:15] LABS: HEMATOCRIT 19.3 % (36.0-47.0)
[2021-10-09 06:45] LABS: CALCIUM LEVEL 7.5 MG/DL (8.5-10.1); CREATININE FOR GFR 3.64 MG/DL (0.55-1.30); MAGNESIUM LEVEL 1.8 MG/DL (1.8-2.4); POTASSIUM SERUM 4.6 MEQ/L (3.5-5.1)
[2021-10-09] MEDS: HumaLOG INSULIN (NovoLOG) PER UNIT SC SCH ×3 (07:30→18:13)
[2021-10-09] MEDS ORDERED: LEVEMIR (INSULIN DETEMIR) 1 UNITS/0.01ML SC ONE (08:20)
[2021-10-09] MEDS: ONDANSETRON 4 MG ORAL DISINTEGRATING TAB PO PRN (08:29)
[2021-10-09] MEDS: **hydrALAZINE HCL** 25 MG TAB PO SCH ×3 (08:30→21:02)
[2021-10-09] MEDS: amLODIPine 5 MG TAB PO SCH (08:31)
[2021-10-09] MEDS: CARVedilol 3.125 MG TAB PO SCH ×2 (08:32→21:02)
[2021-10-09] MEDS: PREGABALIN 100 MG CAP (LYRICA) PO SCH ×2 (08:32→21:00)
[2021-10-09] MEDS: APIXABAN 5 MG TAB (ELIQUIS) PO SCH ×2 (08:33→21:01)
[2021-10-09] MEDS: OMEPRAZOLE 20 MG CAP PO SCH (08:33)
[2021-10-09] MEDS: SPIRONOLACTONE 50 MG TAB PO SCH ×2 (08:34→16:38)
[2021-10-09] MEDS: metOLazone 5 MG TAB PO SCH ×2 (08:34→16:37)
[2021-10-09] MEDS: BUMETANIDE 1 MG TAB PO SCH ×2 (08:35→16:37)
[2021-10-09] MEDS: ASPIRIN 81MG ENTERIC TABLET PO SCH (08:36)
[2021-10-09] MEDS: DULoxetine 30MG CAPSULE (CYMBALTA) PO SCH ×2 (08:37→21:02)
[2021-10-09] MEDS: SYMBICORT 80/4.5MCG INHALER 6GM INH SCH ×2 (08:41→20:09)
[2021-10-09 14:00] LABS: HEMATOCRIT 20.6 % (36.0-47.0); HEMOGLOBIN 6.7 g/dl (12.0-15.5)
[2021-10-09] MEDS: rOPINIRole 2MG TAB PO SCH ×2 (16:43→21:01)
[2021-10-09] MEDS: allopurinoL 300 MG TAB PO SCH (21:00)
[2021-10-09] MEDS: ARIPiprazole 10 MG TAB PO SCH (21:01)
[2021-10-10 00:17] VITALS: BP 149/90
[2021-10-10 02:00] VITALS: BP 148/76
[2021-10-10] MEDS: NORCO, ANEXSIA 5/325MG TABLET (HYDROcodone/ACETAMINOPHEN) PO PRN ×5 (04:11→21:18)
[2021-10-10 06:00] VITALS: BP 150/74
[2021-10-10 06:25] LABS: BASO % 0.3 % (0.0-1.0); EOS # 0.2 10^3/uL (0.0-0.5); EOS % 2.2 % (0.0-3.0); HEMATOCRIT 25.8 % (36.0-47.0); HEMOGLOBIN 8.4 g/dl (12.0-15.5); LYMPH # 1.5 10^3/uL (1.5-5.0); LYMPH % 16.9 % (24.0-44.0); MEAN CORPUSCULAR HEMOGLOBIN 29.1 pg (27.0-33.0); MEAN CORPUSCULAR HGB CONC 32.6 g/dl (32.0-36.5); MEAN CORPUSCULAR VOLUME 89.3 fl (80.0-96.0); MONO # 0.6 10^3/uL (0.0-0.8); MONO % 6.8 % (2.0-8.0); NEUTROPHILS # 6.2 10^3/uL (1.5-8.5); NEUTROPHILS % 72.4 % (36.0-66.0); PLATELET COUNT, AUTOMATED 157 10^3/uL (150-450); RED BLOOD COUNT 2.89 10^6/uL (4.00-5.40); WHITE BLOOD COUNT 8.6 10^3/uL (4.0-10.0)
[2021-10-10 06:46] LABS: CALCIUM LEVEL 7.8 MG/DL (8.5-10.1); CREATININE FOR GFR 3.61 MG/DL (0.55-1.30); GLOMERULAR FILTRATION RATE 14.1 (>51); MAGNESIUM LEVEL 1.8 MG/DL (1.8-2.4); POTASSIUM SERUM 4.8 MEQ/L (3.5-5.1)
[2021-10-10] MEDS: SYMBICORT 80/4.5MCG INHALER 6GM INH SCH ×2 (07:35→20:58)
[2021-10-10] MEDS: HumaLOG INSULIN (NovoLOG) PER UNIT SC SCH ×4 (08:31→19:57)
[2021-10-10] MEDS: LEVEMIR (INSULIN DETEMIR) 1 UNITS/0.01ML SC SCH (08:31)
[2021-10-10] MEDS: OMEPRAZOLE 20 MG CAP PO SCH (08:32)
[2021-10-10] MEDS: PREGABALIN 100 MG CAP (LYRICA) PO SCH ×2 (08:32→21:02)
[2021-10-10] MEDS: ASPIRIN 81MG ENTERIC TABLET PO SCH (08:32)
[2021-10-10] MEDS: SPIRONOLACTONE 50 MG TAB PO SCH ×2 (08:32→16:23)
[2021-10-10] MEDS: APIXABAN 5 MG TAB (ELIQUIS) PO SCH ×2 (08:33→21:02)
[2021-10-10] MEDS: metOLazone 5 MG TAB PO SCH ×2 (08:33→16:22)
[2021-10-10] MEDS: DULoxetine 30MG CAPSULE (CYMBALTA) PO SCH ×2 (08:34→21:02)
[2021-10-10] MEDS: amLODIPine 5 MG TAB PO SCH (08:34)
[2021-10-10] MEDS: CARVedilol 3.125 MG TAB PO SCH ×2 (08:34→21:05)
[2021-10-10] MEDS: **hydrALAZINE HCL** 25 MG TAB PO SCH ×3 (08:35→21:06)
[2021-10-10] MEDS: BUMETANIDE 1 MG TAB PO SCH ×2 (08:38→16:23)
[2021-10-10] MEDS: FUROSEMIDE 100MG/10ML VIAL (J1940) IV SCH ×3 (12:24→23:58)
[2021-10-10 14:00] VITALS: BP 133/67
[2021-10-10] MEDS: rOPINIRole 2MG TAB PO SCH ×2 (16:23→21:02)
[2021-10-10] MEDS: ARIPiprazole 10 MG TAB PO SCH (21:02)
[2021-10-10] MEDS: allopurinoL 300 MG TAB PO SCH (21:05)
[2021-10-10 22:00] VITALS: BP 147/67
[2021-10-11] MEDS: NORCO, ANEXSIA 5/325MG TABLET (HYDROcodone/ACETAMINOPHEN) PO PRN ×5 (02:09→20:29)
[2021-10-11] MEDS: FUROSEMIDE 100MG/10ML VIAL (J1940) IV SCH ×4 (04:57→22:27)
[2021-10-11] MEDS ORDERED: SODIUM CHLORIDE 0.9% INJ 10 ML SYR IV PRN (05:30)
[2021-10-11 06:00] VITALS: BP 154/68
[2021-10-11] MEDS: SODIUM CHLORIDE 0.9% INJ 10 ML SYR IV SCH ×3 (06:00→22:29)
[2021-10-11 06:42] LABS: BASO % 0.3 % (0.0-1.0); EOS # 0.2 10^3/uL (0.0-0.5); HEMATOCRIT 26.5 % (36.0-47.0); HEMOGLOBIN 8.6 g/dl (12.0-15.5); LYMPH # 1.7 10^3/uL (1.5-5.0); LYMPH % 18.5 % (24.0-44.0); MEAN CORPUSCULAR HEMOGLOBIN 29.3 pg (27.0-33.0); MEAN CORPUSCULAR HGB CONC 32.5 g/dl (32.0-36.5); MEAN CORPUSCULAR VOLUME 90.1 fl (80.0-96.0); MONO # 0.8 10^3/uL (0.0-0.8); MONO % 8.7 % (2.0-8.0); NEUTROPHILS # 6.3 10^3/uL (1.5-8.5); NEUTROPHILS % 69.6 % (36.0-66.0); PLATELET COUNT, AUTOMATED 161 10^3/uL (150-450); RED BLOOD COUNT 2.94 10^6/uL (4.00-5.40); WHITE BLOOD COUNT 9.1 10^3/uL (4.0-10.0)
[2021-10-11 07:09] LABS: CALCIUM LEVEL 8.1 MG/DL (8.5-10.1); CREATININE FOR GFR 3.72 MG/DL (0.55-1.30); GLOMERULAR FILTRATION RATE 13.6 (>51); MAGNESIUM LEVEL 1.9 MG/DL (1.8-2.4); POTASSIUM SERUM 4.6 MEQ/L (3.5-5.1)
[2021-10-11] MEDS: ONDANSETRON 4 MG ORAL DISINTEGRATING TAB PO PRN (07:49)
[2021-10-11] MEDS: HumaLOG INSULIN (NovoLOG) PER UNIT SC SCH ×4 (07:51→21:00)
[2021-10-11] MEDS: SYMBICORT 80/4.5MCG INHALER 6GM INH SCH ×2 (08:00→20:07)
[2021-10-11] MEDS: metOLazone 5 MG TAB PO SCH ×2 (10:10→16:30)
[2021-10-11] MEDS: ASPIRIN 81MG ENTERIC TABLET PO SCH (10:11)
[2021-10-11] MEDS: DULoxetine 30MG CAPSULE (CYMBALTA) PO SCH ×2 (10:11→20:27)
[2021-10-11] MEDS: PREGABALIN 100 MG CAP (LYRICA) PO SCH ×2 (10:11→20:27)
[2021-10-11] MEDS: APIXABAN 5 MG TAB (ELIQUIS) PO SCH ×2 (10:11→20:27)
[2021-10-11] MEDS: SPIRONOLACTONE 50 MG TAB PO SCH ×2 (10:12→16:30)
[2021-10-11] MEDS: amLODIPine 5 MG TAB PO SCH (10:12)
[2021-10-11] MEDS: OMEPRAZOLE 20 MG CAP PO SCH (10:12)
[2021-10-11] MEDS: CARVedilol 3.125 MG TAB PO SCH ×2 (10:13→20:28)
[2021-10-11] MEDS: **hydrALAZINE HCL** 25 MG TAB PO SCH ×3 (10:13→20:28)
[2021-10-11] MEDS: LEVEMIR (INSULIN DETEMIR) 1 UNITS/0.01ML SC SCH (10:16)
[2021-10-11 14:00] VITALS: BP 127/60
[2021-10-11] MEDS: rOPINIRole 2MG TAB PO SCH ×2 (15:41→22:29)
[2021-10-11] MEDS: allopurinoL 300 MG TAB PO SCH (20:27)
[2021-10-11] MEDS: ARIPiprazole 10 MG TAB PO SCH (20:27)
[2021-10-11 21:00] VITALS: BP 153/72
[2021-10-12] MEDS: NORCO, ANEXSIA 5/325MG TABLET (HYDROcodone/ACETAMINOPHEN) PO PRN ×6 (01:11→21:15)
[2021-10-12] MEDS: FUROSEMIDE 100MG/10ML VIAL (J1940) IV SCH ×5 (04:50→23:47)
[2021-10-12] MEDS: SODIUM CHLORIDE 0.9% INJ 10 ML SYR IV SCH ×3 (05:05→21:17)
[2021-10-12 06:16] VITALS: BP 119/60
[2021-10-12] MEDS: SYMBICORT 80/4.5MCG INHALER 6GM INH SCH ×2 (07:37→20:47)
[2021-10-12] MEDS: amLODIPine 5 MG TAB PO SCH (08:50)
[2021-10-12] MEDS: APIXABAN 5 MG TAB (ELIQUIS) PO SCH (08:50)
[2021-10-12] MEDS: CARVedilol 3.125 MG TAB PO SCH ×2 (08:51→21:15)
[2021-10-12] MEDS: ASPIRIN 81MG ENTERIC TABLET PO SCH (08:51)
[2021-10-12] MEDS: PREGABALIN 100 MG CAP (LYRICA) PO SCH ×2 (08:52→21:16)
[2021-10-12] MEDS: OMEPRAZOLE 20 MG CAP PO SCH (08:53)
[2021-10-12] MEDS: DULoxetine 30MG CAPSULE (CYMBALTA) PO SCH ×2 (08:53→21:16)
[2021-10-12] MEDS: **hydrALAZINE HCL** 25 MG TAB PO SCH ×3 (08:53→21:16)
[2021-10-12] MEDS: metOLazone 5 MG TAB PO SCH ×2 (08:54→17:12)
[2021-10-12 08:55] LABS: HEMOGLOBIN 9.1 g/dl (12.0-15.5); MEAN CORPUSCULAR HEMOGLOBIN 29.4 pg (27.0-33.0); MEAN CORPUSCULAR HGB CONC 32.5 g/dl (32.0-36.5); MEAN CORPUSCULAR VOLUME 90.6 fl (80.0-96.0); PLATELET COUNT, AUTOMATED 161 10^3/uL (150-450); RED BLOOD COUNT 3.09 10^6/uL (4.00-5.40); WHITE BLOOD COUNT 12.6 10^3/uL (4.0-10.0)
[2021-10-12] MEDS: LEVEMIR (INSULIN DETEMIR) 1 UNITS/0.01ML SC SCH (08:57)
[2021-10-12] MEDS: HumaLOG INSULIN (NovoLOG) PER UNIT SC SCH ×4 (08:57→21:00)
[2021-10-12] MEDS: SPIRONOLACTONE 50 MG TAB PO SCH ×2 (08:58→17:24)
[2021-10-12 09:22] LABS: BLOOD UREA NITROGEN 58 MG/DL (7-18); CALCIUM LEVEL 8.2 MG/DL (8.5-10.1); CARBON DIOXIDE LEVEL 25 MEQ/L (21-32); CHLORIDE LEVEL 106 MEQ/L (98-107); CREATININE FOR GFR 3.88 MG/DL (0.55-1.30); GLUCOSE, FASTING 132 MG/DL (70-100); MAGNESIUM LEVEL 1.8 MG/DL (1.8-2.4); POTASSIUM SERUM 4.6 MEQ/L (3.5-5.1); SODIUM LEVEL 141 MEQ/L (136-145)
[2021-10-12] MEDS ORDERED: VANCOMYCIN HCL 1,000 MG, VIAL MATE ADAPTER 1 EACH in NS 250 ML IV ONE (11:00)
[2021-10-12 11:18] LABS: HEPATITIS B SURFACE ANTIBODY NEGATIVE (POSITIVE)
[2021-10-12 11:27] LABS: HEPATITIS B SURFACE ANTIGEN NEGATIVE (NEGATIVE)
[2021-10-12 11:56] LABS: HEPATITIS B CORE ANTIBODY IGM NEGATIVE (NEGATIVE); HEPATITIS C VIRUS ABY INDEX 0.1 INDEX (<0.8)
[2021-10-12 14:00] VITALS: BP 135/65
[2021-10-12] MEDS: rOPINIRole 2MG TAB PO SCH ×2 (17:21→21:16)
[2021-10-12 20:00] VITALS: BP 145/70
[2021-10-12] MEDS: allopurinoL 300 MG TAB PO SCH (21:16)
[2021-10-12] MEDS: ARIPiprazole 10 MG TAB PO SCH (23:47)
[2021-10-13] MEDS ORDERED: FUROSEMIDE 20 MG TAB PO ONE (01:00)
[2021-10-13] MEDS: NORCO, ANEXSIA 5/325MG TABLET (HYDROcodone/ACETAMINOPHEN) PO PRN ×5 (01:11→20:47)
[2021-10-13] MEDS: FUROSEMIDE 100MG/10ML VIAL (J1940) IV SCH (04:03)
[2021-10-13] MEDS: SODIUM CHLORIDE 0.9% INJ 10 ML SYR IV SCH (05:00)
[2021-10-13 06:00] VITALS: BP 177/80
[2021-10-13 06:11] LABS: HEMATOCRIT 25.9 % (36.0-47.0); HEMOGLOBIN 8.3 g/dl (12.0-15.5); MEAN CORPUSCULAR HEMOGLOBIN 29.1 pg (27.0-33.0); MEAN CORPUSCULAR VOLUME 90.9 fl (80.0-96.0); PLATELET COUNT, AUTOMATED 131 10^3/uL (150-450); RED BLOOD COUNT 2.85 10^6/uL (4.00-5.40); WHITE BLOOD COUNT 10.1 10^3/uL (4.0-10.0)
[2021-10-13 06:33] LABS: CREATININE FOR GFR 3.66 MG/DL (0.55-1.30); GLOMERULAR FILTRATION RATE 13.9 (>51); MAGNESIUM LEVEL 1.9 MG/DL (1.8-2.4); POTASSIUM SERUM 4.6 MEQ/L (3.5-5.1)
[2021-10-13] MEDS: HumaLOG INSULIN (NovoLOG) PER UNIT SC SCH ×4 (07:30→20:49)
[2021-10-13] MEDS: SYMBICORT 80/4.5MCG INHALER 6GM INH SCH ×2 (07:50→19:59)
[2021-10-13] MEDS ORDERED: PILL CUTTER 1 EACH XX PRN (08:25)
[2021-10-13] MEDS: amLODIPine 5 MG TAB PO SCH (08:30)
[2021-10-13] MEDS: metOLazone 5 MG TAB PO SCH ×2 (08:31→16:17)
[2021-10-13] MEDS: PREGABALIN 100 MG CAP (LYRICA) PO SCH ×2 (08:32→20:47)
[2021-10-13] MEDS: DULoxetine 30MG CAPSULE (CYMBALTA) PO SCH ×2 (08:33→20:47)
[2021-10-13] MEDS: **hydrALAZINE HCL** 25 MG TAB PO SCH ×3 (08:33→20:48)
[2021-10-13] MEDS: CARVedilol 3.125 MG TAB PO SCH ×2 (08:33→20:48)
[2021-10-13] MEDS: OMEPRAZOLE 20 MG CAP PO SCH (08:34)
[2021-10-13] MEDS: ASPIRIN 81MG ENTERIC TABLET PO SCH (08:35)
[2021-10-13] MEDS: SPIRONOLACTONE 50 MG TAB PO SCH ×2 (08:35→16:16)
[2021-10-13] MEDS ORDERED: fentaNYL 100 MCG/2 ML INJECTION (J3010) As Ordered ONE (09:02)
[2021-10-13] MEDS ORDERED: LIDOCAINE 1% MDV 20ML VIAL As Ordered ONE (09:03)
[2021-10-13] MEDS ORDERED: MIDAZOLAM INJ 2MG/2ML VIAL (J2250 PER 1MG) As Ordered ONE (09:03)
[2021-10-13] MEDS ORDERED: SODIUM CHLORIDE 0.9% 1000ML IV PRN (10:45)
[2021-10-13] MEDS ORDERED: EMLA CREAM 5GM TUBE (LIDOCAINE/PRILOCAINE) TOP ONE (10:45)
[2021-10-13] MEDS: FUROSEMIDE 80 MG TAB PO SCH ×2 (11:22→17:20)
[2021-10-13] MEDS: LEVEMIR (INSULIN DETEMIR) 1 UNITS/0.01ML SC SCH (11:23)
[2021-10-13 12:12] LABS: VANCOMYCIN RANDOM 10.4 UG/ML
[2021-10-13] MEDS ORDERED: VANCOMYCIN HCL 1,000 MG, VIAL MATE ADAPTER 1 EACH in NS 250 ML IV SCH (16:00)
[2021-10-13] MEDS: **VANCO AFTER HD** MISC XX SCH (16:00)
[2021-10-13] MEDS: rOPINIRole 2MG TAB PO SCH ×2 (16:17→20:48)
[2021-10-13] MEDS: ARIPiprazole 10 MG TAB PO SCH (20:47)
[2021-10-13] MEDS: APIXABAN 5 MG TAB (ELIQUIS) PO SCH (20:48)
[2021-10-13] MEDS: allopurinoL 300 MG TAB PO SCH (20:48)
[2021-10-13 22:00] VITALS: BP 149/70
[2021-10-14] MEDS: NORCO, ANEXSIA 5/325MG TABLET (HYDROcodone/ACETAMINOPHEN) PO PRN ×5 (00:55→23:54)
[2021-10-14 06:00] VITALS: BP 165/84
[2021-10-14] MEDS: OMEPRAZOLE 20 MG CAP PO SCH (06:05)
[2021-10-14] MEDS: SPIRONOLACTONE 50 MG TAB PO SCH ×2 (06:06→16:24)
[2021-10-14] MEDS: APIXABAN 5 MG TAB (ELIQUIS) PO SCH ×2 (06:06→21:17)
[2021-10-14] MEDS: DULoxetine 30MG CAPSULE (CYMBALTA) PO SCH ×2 (06:06→21:18)
[2021-10-14] MEDS: metOLazone 5 MG TAB PO SCH ×2 (06:06→16:24)
[2021-10-14] MEDS: PREGABALIN 100 MG CAP (LYRICA) PO SCH ×2 (06:07→21:17)
[2021-10-14] MEDS: **hydrALAZINE HCL** 25 MG TAB PO SCH ×3 (06:08→21:19)
[2021-10-14] MEDS: amLODIPine 5 MG TAB PO SCH (06:09)
[2021-10-14] MEDS: CARVedilol 3.125 MG TAB PO SCH ×2 (06:10→21:18)
[2021-10-14] MEDS: ASPIRIN 81MG ENTERIC TABLET PO SCH (06:13)
[2021-10-14 06:39] LABS: HEMATOCRIT 26.5 % (36.0-47.0); HEMOGLOBIN 8.6 g/dl (12.0-15.5); MEAN CORPUSCULAR HEMOGLOBIN 29.5 pg (27.0-33.0); MEAN CORPUSCULAR HGB CONC 32.5 g/dl (32.0-36.5); MEAN CORPUSCULAR VOLUME 90.8 fl (80.0-96.0); PLATELET COUNT, AUTOMATED 156 10^3/uL (150-450); RED BLOOD COUNT 2.92 10^6/uL (4.00-5.40); WHITE BLOOD COUNT 8.5 10^3/uL (4.0-10.0)
[2021-10-14 07:04] LABS: CALCIUM LEVEL 8.5 MG/DL (8.5-10.1); CREATININE FOR GFR 2.85 MG/DL (0.55-1.30); GLOMERULAR FILTRATION RATE 18.5 (>51); MAGNESIUM LEVEL 1.8 MG/DL (1.8-2.4); POTASSIUM SERUM 4.3 MEQ/L (3.5-5.1); VANCOMYCIN RANDOM 20.7 UG/ML
[2021-10-14] MEDS: SYMBICORT 80/4.5MCG INHALER 6GM INH SCH ×2 (07:49→18:32)
[2021-10-14] MEDS ORDERED: LIDOCAINE 1% SDV 5ML VIAL SC PRN (08:00)
[2021-10-14] MEDS ORDERED: SODIUM CHLORIDE 0.9% 1000ML IV PRN (08:00)
[2021-10-14] MEDS: HumaLOG INSULIN (NovoLOG) PER UNIT SC SCH ×4 (08:22→21:00)
[2021-10-14] MEDS: FUROSEMIDE 80 MG TAB PO SCH ×2 (08:23→16:23)
[2021-10-14] MEDS: LEVEMIR (INSULIN DETEMIR) 1 UNITS/0.01ML SC SCH (08:31)
[2021-10-14] MEDS ORDERED: VANCOMYCIN 750MG/25ML VIAL As Ordered ONE (12:00)
[2021-10-14] MEDS: VANCOMYCIN HCL 750 MG, VIAL MATE ADAPTER 1 EACH in NS 250 ML IV SCH (12:09)
[2021-10-14 14:00] VITALS: BP 156/78
[2021-10-14] MEDS: **VANCO AFTER HD** MISC XX SCH (16:00)
[2021-10-14] MEDS: rOPINIRole 2MG TAB PO SCH ×2 (16:27→21:17)
[2021-10-14] MEDS: ARIPiprazole 10 MG TAB PO SCH (21:17)
[2021-10-14] MEDS: allopurinoL 300 MG TAB PO SCH (21:18)
[2021-10-14 22:00] VITALS: BP 150/74
[2021-10-15] MEDS: NORCO, ANEXSIA 5/325MG TABLET (HYDROcodone/ACETAMINOPHEN) PO PRN ×3 (04:04→13:21)
[2021-10-15 06:00] VITALS: BP 146/72
[2021-10-15] MEDS: PREGABALIN 100 MG CAP (LYRICA) PO SCH (06:02)
[2021-10-15] MEDS: CARVedilol 3.125 MG TAB PO SCH (06:03)
[2021-10-15] MEDS: APIXABAN 5 MG TAB (ELIQUIS) PO SCH (06:04)
[2021-10-15] MEDS: DULoxetine 30MG CAPSULE (CYMBALTA) PO SCH (06:04)
[2021-10-15] MEDS: FUROSEMIDE 80 MG TAB PO SCH (06:04)
[2021-10-15] MEDS: SPIRONOLACTONE 50 MG TAB PO SCH (06:05)
[2021-10-15] MEDS: amLODIPine 5 MG TAB PO SCH (06:05)
[2021-10-15] MEDS: **hydrALAZINE HCL** 25 MG TAB PO SCH ×2 (06:06→15:20)
[2021-10-15] MEDS: ASPIRIN 81MG ENTERIC TABLET PO SCH (06:06)
[2021-10-15] MEDS: OMEPRAZOLE 20 MG CAP PO SCH (06:06)
[2021-10-15] MEDS: metOLazone 5 MG TAB PO SCH (06:07)
[2021-10-15 07:00] LABS: HEMATOCRIT 25.4 % (36.0-47.0); HEMOGLOBIN 8.2 g/dl (12.0-15.5); MEAN CORPUSCULAR HEMOGLOBIN 29.1 pg (27.0-33.0); MEAN CORPUSCULAR HGB CONC 32.3 g/dl (32.0-36.5); MEAN CORPUSCULAR VOLUME 90.1 fl (80.0-96.0); PLATELET COUNT, AUTOMATED 148 10^3/uL (150-450); RED BLOOD COUNT 2.82 10^6/uL (4.00-5.40); WHITE BLOOD COUNT 8.3 10^3/uL (4.0-10.0)
[2021-10-15 07:29] LABS: CALCIUM LEVEL 8.4 MG/DL (8.5-10.1); CREATININE FOR GFR 2.44 MG/DL (0.55-1.30); GLOMERULAR FILTRATION RATE 22.1 (>51); MAGNESIUM LEVEL 1.8 MG/DL (1.8-2.4); POTASSIUM SERUM 4.2 MEQ/L (3.5-5.1)
[2021-10-15] MEDS: SYMBICORT 80/4.5MCG INHALER 6GM INH SCH (07:39)
[2021-10-15] MEDS ORDERED: SODIUM CHLORIDE 0.9% 1000ML IV PRN (07:45)
[2021-10-15] MEDS: HumaLOG INSULIN (NovoLOG) PER UNIT SC SCH ×2 (08:13→15:02)
[2021-10-15] MEDS: LEVEMIR (INSULIN DETEMIR) 1 UNITS/0.01ML SC SCH (08:14)
[2021-10-15 09:29] LABS: VANCOMYCIN RANDOM 22.4 UG/ML
[2021-10-15] MEDS ORDERED: ELIQ2.5T PO (11:43)
[2021-10-15] MEDS: VANCOMYCIN HCL 750 MG, VIAL MATE ADAPTER 1 EACH in NS 250 ML IV SCH (13:24)
[2021-10-15 15:00] VITALS: BP 136/65
[2021-10-15 15:20] VITALS: BP 136/65
[2021-10-15] MEDS ORDERED: APIXABAN 2.5 MG TAB (ELIQUIS) PO SCH (21:00)
== END 2021-10-15 15:30 | disposition home or self-care (01) | DRG 270 ==
LOC: M ED 21:25 → M ED INP 10-04 02:04 → ENRESERV 10-04 04:08 → M MSPAV 10-04 04:59
PROVIDERS: ADMIT Family Medicine; ATTEND Internal Medicine
PROC: 057 Upper Veins, Dilation (ICD-10-PCS; 2021-10-07)
PROC: 05C70ZZ Extirpation of Matter from Right Axillary Vein, Open Approach (ICD-10-PCS; 2021-10-07)
PROC: 02C Heart and Great Vessels, Extirpation (ICD-10-PCS; 2021-10-07)
PROC: 05C90ZZ Extirpation of Matter from Right Brachial Vein, Open Approach (ICD-10-PCS; 2021-10-07)
PROC: 05C Upper Veins, Extirpation (ICD-10-PCS; principal; 2021-10-07 11:30)
PROC: 30233N1 Transfusion of Nonautologous Red Blood Cells into Peripheral Vein, Percutaneous Approach (ICD-10-PCS; 2021-10-12)
PROC: 5A1D70Z Performance of Urinary Filtration, Intermittent, Less than 6 Hours Per Day (ICD-10-PCS; 2021-10-13)
DX: I13.2 Hypertensive heart and chronic kidney disease with heart failure and with stage 5 chronic kidney disease, or end stage renal disease (principal); I50.33 Acute on chronic diastolic (congestive) heart failure; N18.6 End stage renal disease; N17.9 Acute kidney failure, unspecified; J90 Pleural effusion, not elsewhere classified; D80.1 Nonfamilial hypogammaglobulinemia; N04.9 Nephrotic syndrome with unspecified morphologic changes; E11.22 Type 2 diabetes mellitus with diabetic chronic kidney disease; E11.43 Type 2 diabetes mellitus with diabetic autonomic (poly)neuropathy; K21.9 Gastro-esophageal reflux disease without esophagitis; F31.9 Bipolar disorder, unspecified; Z89.512 Acquired absence of left leg below knee; Z90.79 Acquired absence of other genital organ(s); Z90.49 Acquired absence of other specified parts of digestive tract; Z20.822 Contact with and (suspected) exposure to COVID-19; Z79.82 Long term (current) use of aspirin; Z79.01 Long term (current) use of anticoagulants; Z79.4 Long term (current) use of insulin; Z79.899 Other long term (current) drug therapy; Z88.0 Allergy status to penicillin; Z88.1 Allergy status to other antibiotic agents; Z88.2 Allergy status to sulfonamides; Z88.8 Allergy status to other drugs, medicaments and biological substances; Z91.040 Latex allergy status; E11.319 Type 2 diabetes mellitus with unspecified diabetic retinopathy without macular edema; Z91.018 Allergy to other foods; Z91.048 Other nonmedicinal substance allergy status; K31.84 Gastroparesis; Z86.718 Personal history of other venous thrombosis and embolism; I73.9 Peripheral vascular disease, unspecified; J45.909 Unspecified asthma, uncomplicated; G43.909 Migraine, unspecified, not intractable, without status migrainosus; K76.0 Fatty (change of) liver, not elsewhere classified; M79.7 Fibromyalgia; L40.9 Psoriasis, unspecified; E66.01 Morbid (severe) obesity due to excess calories; K44.9 Diaphragmatic hernia without obstruction or gangrene; F32.A Depression, unspecified; G25.81 Restless legs syndrome; Z68.38 Body mass index [BMI] 38.0-38.9, adult; E87.5 Hyperkalemia; D63.1 Anemia in chronic kidney disease; M48.061 Spinal stenosis, lumbar region without neurogenic claudication; F17.200 Nicotine dependence, unspecified, uncomplicated; M10.9 Gout, unspecified; Z99.2 Dependence on renal dialysis

== ENCOUNTER 2021-10-18 07:41 | Emergency (ER) | payer OTHER ==
[~2021-10-18] VITALS: Ht 177.8 cm; Wt 109.0 kg
[~2021-10-18 07:41] MED LIST changes: +ALLO300T2 PO; +ELIQ2.5T PO; +METO10TA5 PO
[2021-10-18 09:07] LABS: HEMATOCRIT 25.5 % (36.0-47.0); HEMOGLOBIN 8.4 g/dl (12.0-15.5); MEAN CORPUSCULAR HEMOGLOBIN 29.2 pg (27.0-33.0); MEAN CORPUSCULAR HGB CONC 32.9 g/dl (32.0-36.5); MEAN CORPUSCULAR VOLUME 88.5 fl (80.0-96.0); PLATELET COUNT, AUTOMATED 191 10^3/uL (150-450); RED BLOOD COUNT 2.88 10^6/uL (4.00-5.40); WHITE BLOOD COUNT 10.2 10^3/uL (4.0-10.0)
[2021-10-18 09:41] LABS: CALCIUM LEVEL 7.9 MG/DL (8.5-10.1); CREATININE FOR GFR 3.14 MG/DL (0.55-1.30); GLOMERULAR FILTRATION RATE 16.6 (>51); POTASSIUM SERUM 4.4 MEQ/L (3.5-5.1)
[2021-10-18 09:55] LABS: ATYPICAL LYMPH 2 % (0-5); EOSINOPHILS 2 % (0-3); LYMPHOCYTES 16 % (16-44); MONOCYTES 6 % (0-5); NEUTROPHILS 73 % (28-66)
[2021-10-18 09:57] LABS: HYPOCHROMASIA 1+; PLATELET ESTIMATE NORMAL (NORMAL)
[2021-10-18 09:59] LABS: ANISOCYTOSIS 2+
[2021-10-18 10:00] LABS: MICROCYTOSIS 1+
[2021-10-18 11:43] LABS: RSV AMPLIFICATION NEGATIVE (NEGATIVE)
[2021-10-18] MEDS ORDERED: NORCO, ANEXSIA 5/325MG TABLET (HYDROcodone/ACETAMINOPHEN) PO ONE ×2 (12:05→16:50)
[2021-10-18 17:59] VITALS: BP 148/70
== END 2021-10-18 18:05 | disposition short-term general hospital (02) ==
LOC: M ED 07:41
DX: T82.868A Thrombosis due to vascular prosthetic devices, implants and grafts, initial encounter (principal); I13.2 Hypertensive heart and chronic kidney disease with heart failure and with stage 5 chronic kidney disease, or end stage renal disease; I50.9 Heart failure, unspecified; Z99.2 Dependence on renal dialysis; E11.9 Type 2 diabetes mellitus without complications; D68.2 Hereditary deficiency of other clotting factors; Z79.01 Long term (current) use of anticoagulants; Z79.4 Long term (current) use of insulin; Z79.899 Other long term (current) drug therapy; Z88.0 Allergy status to penicillin; Z88.1 Allergy status to other antibiotic agents; Z88.2 Allergy status to sulfonamides; Z91.040 Latex allergy status